=== PATIENT | female | born 1960 | race Caucasian/White ===

== ENCOUNTER 2020-09-14 19:00 | Inpatient (IN) | payer OTHER, SELFPAY ==
--- NOTE | 2020-09-14 19:08 | ED_ITS ---
HPI - Fall General Chief Complaint: Fall Stated Complaint: R LAT CHEST & HEAD PAIN S/P FALL THIS AM Time Seen by Provider: 09/14/20 19:08 Source: patient, EMS and old records reviewed Mode of arrival: EMS Limitations: no limitations History of Present Illness complaint: fall Onset (ago): day(s) (occured 1030 / 11 am today) Fall from: other (walker) Fall witnessed: no Loss of consciousness: none Prolonged down time: no Symptoms prior to fall: other (states she was going to the bathroom and felt a little bit wobbly) Context: history of frequent falls Location of injury: head, neck and chest (R ribs) Related Data Allergies Allergy/AdvReac Type Severity Reaction Status Date / Time tetracycline [Tetracycline] Allergy Mild HIVES, Verified 09/14/20 20:06 anaphylaxis, anaphylaxis Review of Systems Review of Systems: Constitutional : No Fever, No Chills ENT/Mouth : No Ear Pain, No Hoarseness, No sore throat Eyes: No Eye Pain, No Swelling, No Redness, No Foreign Body Cardiovascular : pos Chest Pain at her ribs where she fell, No SOB Respiratory : No Cough, No Dyspnea Gastrointestinal : pos Nausea, No Vomiting, No Diarrhea, No abdominal Pain Genitourinary : No Dysuria, No Hematuria Musculoskeletal : no joint pain, No Myalgias, No Joint Swelling Skin : No Skin lacerations, No rash Neuro : No Weakness, No Numbness, No Loss of Consciousness, No Dizziness, pos Headache Psych : No Anxiety/Panic, No Depression All other systems reviewed and are negative [facility] Past Medical History Medical History (Updated 09/14/20 @ 19:28 by Jade Gracia DO) Anemia Anxiety Arthritis Carpal tunnel syndrome Coronary artery disease CVA (cerebral vascular accident) Diabetes Gastritis Gastroparesis GERD (gastroesophageal reflux disease) Headache HTN (hypertension) IBS (irritable bowel syndrome) Myocardial infarct Pacemaker Renal failure UTI (urinary tract infection) Surgical History (Updated 09/14/20 @ 19:28 by Jade Gracia DO) H/O: hysterectomy History of appendectomy Hx of CABG Hx of cholecystectomy Social History Social History (Updated 09/14/20 @ 19:28 by Jade Gracia DO) Smoking Status: Never smoker Smoked in Last 30 Days: No Use of substances other than those prescribed or required for medical reasons: No Advance Directives: No Advance Directives Information Provided: Yes Physical Exam Vital Signs: Vital Signs: Vital Signs Temp Pulse Resp BP Pulse Ox 09/14/20 20:59 91 18 153/78 H 96 09/14/20 20:00 18 155/80 H 09/14/20 19:29 98 F 88 18 140/73 H 96 Body Mass Index 66.1 Appearance: Somnolent Oriented X3. No acute distress. Eyes: Pupils equal, round and reactive to light. ENT: Pharynx normal. Neck: Normal inspection. Neck supple. c/o pain C4-C6 no step offs, in c collar CVS: Normal heart rate and rhythm. Pulses normal. Respiratory: No respiratory distress. Breath sounds normal. Abdomen: Soft and nontender. Skin: Skin warm and dry. Normal skin color. Normal skin turgor. Extremities: No lower extremity edema. No calf ttp Neuro: Oriented X 3. No motor deficit. No sensory deficit. Course Course Course Narrative: trop and BNP at baseline, was hypoxic when she came in placed on O2 and she improved covered with zosyn given extensive infilrates and concern for aspiration MDM - Fall MDM Narrative Medical decision making narrative: 60 yo female with multiple medical problems presentes with R rib pain post fall when she felt wobbly today at 10am, at this time will need labs, CT scan of head/cspine/chest due to fall - she is sedated anticipate she took her night medications, GCS 15, labs, EKG, UA ordered, dispo per results and findings. Lab Data Result diagrams: 09/14/20 20:00 09/14/20 20:01 Labs: Lab Results 09/14/20 09/14/20 09/14/20 Range/Units 20:00 20:01 20:01 WBC 11.1 H (4.8-10.8) X10*3/uL RBC 4.36 (4.20-5.50) X10*6/uL Hgb 10.8 L (12.0-16.0) g/dl Hct 36.0 L (37-47) % MCV 82.6 (80-98) fL MCH 24.8 L (27.0-33.0) pg MCHC 30.0 L (31.0-35.0) g/dl RDW 16.8 H (11.0-16.0) % Plt Count 352 (160-400) X10*3/uL MPV 9.8 (9.4-12.3) fL Immature Gran % (Auto) 0.4 (0.0-0.4) % Neut % (Auto) 81.5 H (45-73) % Lymph % (Auto) 11.5 L (20-40) % [place] % (Auto) 4.9 (2-11) % Eos % (Auto) 1.4 (0-4) % Baso % (Auto) 0.3 (0-2) % Lymph # (Auto) 1.3 (1.2-4.9) X10*3/uL [place] # (Auto) 0.5 (0.1-1.2) X10*3/uL Eos # (Auto) 0.2 (0.0-0.4) X10*3/uL Baso # (Auto) 0.0 (0.0-0.2) X10*3/uL Abs Immat Gran (auto) 0.04 H (0.00-0.03) X10*3/uL Absolute Neuts (auto) 9.1 H (2.0-8.3) X10*3/uL Absolute Nucleated RBC 0.000 (0.0-0.012) X10*3/uL Nucleated RBC % (auto) 0.0 (0.0-0.2) /100WBC PT (10.8-13.0) SEC INR (0.9-1.1) APTT (24.1-38.0) SEC Sodium 133 L (135-145) mmol/L Potassium 4.1 (3.3-5.1) mmol/l Chloride 96 (96-108) mmol/L Carbon Dioxide 27 (22-29) mmol/L Anion Gap 14 (12-20) BUN 21 H (9-16) mg/dL Creatinine 1.69 H (0.5-1.4) mg/dL Estim Creat Clear Calc 52.1 Estimated GFR 31 Random Glucose 355 H* (60-115) mg/dL Lactic Acid (0.5-2.0) mmol/L Calcium 8.5 (8.4-10.2) mg/dL Magnesium (1.6-2.6) mg/dL Total Bilirubin (0.0-1.0) mg/dL Direct Bilirubin (0.0-0.5) mg/dL AST (5-31) U/L ALT (0-31) U/L Alkaline Phosphatase (39-117) U/L Total Creatine Kinase 85 (26-140) U/L Troponin I High Sens (<3.5-17.0) ng/L B-Natriuretic Peptide 268 H (<100) pg/mL Total Protein (6.5-8.0) g/dL Albumin (3.5-5.0) g/dL Lipase (8-78) U/L Stool Occult Blood (NEG) 09/14/20 09/14/20 09/14/20 Range/Units 20:01 20:01 20:01 WBC (4.8-10.8) X10*3/uL RBC (4.20-5.50) X10*6/uL Hgb (12.0-16.0) g/dl Hct (37-47) % MCV (80-98) fL MCH (27.0-33.0) pg MCHC (31.0-35.0) g/dl RDW (11.0-16.0) % Plt Count (160-400) X10*3/uL MPV (9.4-12.3) fL Immature Gran % (Auto) (0.0-0.4) % Neut % (Auto) (45-73) % Lymph % (Auto) (20-40) % Bradford % (Auto) (2-11) % Eos % (Auto) (0-4) % Baso % (Auto) (0-2) % Lymph # (Auto) (1.2-4.9) X10*3/uL [place] # (Auto) (0.1-1.2) X10*3/uL Eos # (Auto) (0.0-0.4) X10*3/uL Baso # (Auto) (0.0-0.2) X10*3/uL Abs Immat Gran (auto) (0.00-0.03) X10*3/uL Absolute Neuts (auto) (2.0-8.3) X10*3/uL Absolute Nucleated RBC (0.0-0.012) X10*3/uL Nucleated RBC % (auto) (0.0-0.2) /100WBC PT 11.0 (10.8-13.0) SEC INR 0.9 (0.9-1.1) APTT 28.4 (24.1-38.0) SEC Sodium (135-145) mmol/L Potassium (3.3-5.1) mmol/l Chloride (96-108) mmol/L Carbon Dioxide (22-29) mmol/L Anion Gap (12-20) BUN (9-16) mg/dL Creatinine (0.5-1.4) mg/dL Estim Creat Clear Calc Estimated GFR Random Glucose (60-115) mg/dL Lactic Acid 1.6 (0.5-2.0) mmol/L Calcium (8.4-10.2) mg/dL Magnesium 2.0 (1.6-2.6) mg/dL Total Bilirubin 0.2 (0.0-1.0) mg/dL Direct Bilirubin < 0.2 (0.0-0.5) mg/dL AST 19 (5-31) U/L ALT 17 (0-31) U/L Alkaline Phosphatase 187 H (39-117) U/L Total Creatine Kinase (26-140) U/L Troponin I High Sens (<3.5-17.0) ng/L B-Natriuretic Peptide (<100) pg/mL Total Protein 7.0 (6.5-8.0) g/dL Albumin 3.3 L (3.5-5.0) g/dL Lipase 23 (8-78) U/L Stool Occult Blood (NEG) 09/14/20 09/14/20 Range/Units 20:01 20:04 WBC (4.8-10.8) X10*3/uL RBC (4.20-5.50) X10*6/uL Hgb (12.0-16.0) g/dl Hct (37-47) % MCV (80-98) fL MCH (27.0-33.0) pg MCHC (31.0-35.0) g/dl RDW (11.0-16.0) % Plt Count (160-400) X10*3/uL MPV (9.4-12.3) fL Immature Gran % (Auto) (0.0-0.4) % Neut % (Auto) (45-73) % Lymph % (Auto) (20-40) % Bradford % (Auto) (2-11) % Eos % (Auto) (0-4) % Baso % (Auto) (0-2) % Lymph # (Auto) (1.2-4.9) X10*3/uL [place] # (Auto) (0.1-1.2) X10*3/uL Eos # (Auto) (0.0-0.4) X10*3/uL Baso # (Auto) (0.0-0.2) X10*3/uL Abs Immat Gran (auto) (0.00-0.03) X10*3/uL Absolute Neuts (auto) (2.0-8.3) X10*3/uL Absolute Nucleated RBC (0.0-0.012) X10*3/uL Nucleated RBC % (auto) (0.0-0.2) /100WBC PT (10.8-13.0) SEC INR (0.9-1.1) APTT (24.1-38.0) SEC Sodium (135-145) mmol/L Potassium (3.3-5.1) mmol/l Chloride (96-108) mmol/L Carbon Dioxide (22-29) mmol/L Anion Gap (12-20) BUN (9-16) mg/dL Creatinine (0.5-1.4) mg/dL Estim Creat Clear Calc Estimated GFR Random Glucose (60-115) mg/dL Lactic Acid (0.5-2.0) mmol/L Calcium (8.4-10.2) mg/dL Magnesium (1.6-2.6) mg/dL Total Bilirubin (0.0-1.0) mg/dL Direct Bilirubin (0.0-0.5) mg/dL AST (5-31) U/L ALT (0-31) U/L Alkaline Phosphatase (39-117) U/L Total Creatine Kinase (26-140) U/L Troponin I High Sens 22.8 H (<3.5-17.0) ng/L B-Natriuretic Peptide (<100) pg/mL Total Protein (6.5-8.0) g/dL Albumin (3.5-5.0) g/dL Lipase (8-78) U/L Stool Occult Blood NEG (NEG) ECG Data Attestation: I personally reviewed and interpreted this ECG as follows: ECG interpretation date: 09/14/20 ECG interpretation time: 19:28 Interpretation: Rate: 88 Rhythm: NSR with 1st degree AVB [place]: Normal P waves. 1st degree AVB incomplete RBBB, LVH ST T wave : inverted V5-V6 and 1 AvL, no DURAN qTC: prolonged prior studies: no acute ischemia The study has been interpreted contemporaneously by me. .
--- NOTE | 2020-09-14 19:09 | CT_ITS ---
EXAMINATION: CT HEAD WITHOUT CONTRAST, CT CERVICAL SPINE WITHOUT CONTRAST CLINICAL INFORMATION: Fall. Pain COMPARISON: The report of head CT 09/23/19 is no acute intracranial process TECHNIQUE: Multidetector CT examination of the head is performed without contrast. Multidetector CT of the cervical spine without contrast. Multiplanar postprocessing This CT examination was performed using dose optimization techniques as appropriate, variously including the following: *Automated exposure control *Adjustment of mA and/or kV according to patient size (this includes techniques or standardized protocols for targeted exams where dose is matched to indication/reason for exam; i.e. extremities or head) *Use of iterative reconstruction technique DLP: Cervical CT 422 mGy-cm DLP: Head CT 789 mGy-cm FINDINGS: Head CT: There is no evidence of a recent intracranial hemorrhage or extra-axial collection. The midline structures are nondisplaced. The ventricles, cisterns, and sulci are within normal limits. There is no evidence of an intra-axial mass. There are no suspicious focal areas of abnormal brain attenuation. The mckeon-white interface is within normal limits. There is no evidence of acute territorial infarct. The paranasal sinuses and mastoids are within normal limits. No fracture demonstrated Cervical CT: There is no cervical fracture or subluxation. No focal lesion or loss of volume. There is an opacity in the right upper lung. This could represent pneumonia. There is distention of the visualized upper esophagus with retained material. There is distention of the upper airway. CT/CT cervical spine wo con IMPRESSION: 1. There is no evidence of a recent intracranial hemorrhage. 2. No acute infarct. 3. No acute fracture or subluxation of the cervical spine Incompletely characterized opacity in the right lung partially included. Abnormal esophagus with dilation and retained material
--- NOTE | 2020-09-14 19:09 | CT_ITS ---
EXAMINATION: CT CHEST WITHOUT CONTRAST CLINICAL INFORMATION: Fall. Pain COMPARISON: The report of CT 02/06/18 indicates no aortic dissection TECHNIQUE: Multidetector volumetric CT imaging of the chest was done. Axial MIP volume rendering provided. Sagittal and coronal reformatted images were obtained. This CT examination was performed using dose optimization techniques as appropriate, variously including the following: *Automated exposure control *Adjustment of mA and/or kV according to patient size (this includes techniques or standardized protocols for targeted exams where dose is matched to indication/reason for exam; i.e. extremities or head) *Use of iterative reconstruction technique DLP: 282 mGy-cm FINDINGS: AIRPLANE CLEANER: Power source left chest wall. Cardiac leads. Sternal wires. Surgical clips right upper quadrant. LUNGS: There is no abnormality of the trachea or mainstem bronchi. There are extensive areas of pneumonia in the apical and posterior segment of the right upper lobe as well as the entire right lower lobe. There are scattered opacities in the left lower lobe. There is a groundglass component as well as some nodularity. There is no cavitation. I consider these findings nonspecific. These are not diagnostic or typical of viral pneumonia. MEDIASTINUM: Study performed without IV contrast. There is no definite mediastinal hematoma. No pericardial fluid. There are no measurably enlarged mediastinal or hilar lymph nodes. There are cardiac leads extending into the region of the right atrium and right ventricle. There may have been coronary artery bypass grafting. The esophagus is abnormal. The esophagus is dilated and contains retained material. PLEURA: There is no pleural fluid or pneumothorax AXILLA: No lymphadenopathy. UPPER ABDOMEN: No suspicious abnormality OSSEOUS STRUCTURES: No fracture demonstrated. Previous sternotomy CT/CT chest wo con IMPRESSION: Nonenhanced exam. No mediastinal hematoma or pneumothorax. Previous cardiac surgery. Extensive bilateral pulmonary infiltrates. These are nonspecific but could be related to pneumonia. In the setting of a dilated esophagus with retained material aspiration pneumonia should be considered. The pattern is not typical for traumatic lung injury
--- NOTE | 2020-09-14 19:09 | ECG_ITS ---
Test Reason : FALL Blood Pressure : / mmHG Vent. Rate : 088 BPM Atrial Rate : 088 BPM P-R Int : 234 ms QRS Dur : 116 ms QT Int : 412 ms P-R-T Axes : 000 099 -75 degrees QTc Int : 498 ms atrial-sensed vent-paced rhythm Incomplete right bundle branch block Possible Right ventricular hypertrophy ST & T wave abnormality, consider inferior ischemia Prolonged QT Abnormal ECG When compared with ECG of 16-AUG-2020 19:10, No significant changes seen Heart rate has decreased Referred By: Jade Gracia Electronically Signed By:HARITHA BRAVO MD
[2020-09-14 19:29] VITALS: BP 140/73; PULSE 88; RESP 18; TEMP 36.6; O2SAT 96; BMI 66.1
--- NOTE | 2020-09-14 19:38 | PC.NURSE ---
Pt to room in c-collar in place. Pt fell this morning around 1030am Pt c/o pain to right shoulder area and right side of chest area. Pt awake, +sob, pt PO 88% on RA, Pt placed on 2L NC with PO 96%. EKG obtained. in room for eval.
[2020-09-14 20:00] VITALS: BP 155/80; RESP 18
[2020-09-14 20:11] LABS: MANUAL DIFF FLAG NO
[2020-09-14 20:13] LABS: Basophils Percent Auto 0.3 % (0-2); Eosinophils Absolute Auto 0.2 X10*3/uL (0.0-0.4); Eosinophils Percent Auto 1.4 % (0-4); Hemoglobin 10.8 g/dl (12.0-16.0); Imm Gran Abs Auto 0.04 X10*3/uL (0.00-0.03); Imm Gran Pct Auto 0.4 % (0.0-0.4); Lymphocytes Absolute Auto 1.3 X10*3/uL (1.2-4.9); Lymphocytes Percent Auto 11.5 % (20-40); Mean Corpuscular Hemoglobin 24.8 pg (27.0-33.0); Mean Corpuscular Volume 82.6 fL (80-98); Mean Platelet Volume 9.8 fL (9.4-12.3); Monocytes Absolute Auto 0.5 X10*3/uL (0.1-1.2); Monocytes Percent Auto 4.9 % (2-11); Neutrophils Absolute Auto 9.1 X10*3/uL (2.0-8.3); Neutrophils Percent Auto 81.5 % (45-73); Platelet Count 352 X10*3/uL (160-400); Red Blood Count 4.36 X10*6/uL (4.20-5.50); Red Cell Distribution Width 16.8 % (11.0-16.0); White Blood Count 11.1 X10*3/uL (4.8-10.8)
--- NOTE | 2020-09-14 20:13 | PC.NURSE ---
HL placed to left AC, labs drawn to lab. BC x [address] in stretcher.
[2020-09-14 20:22] LABS: INTERNATIONAL NORM RATIO 0.9 (0.9-1.1)
[2020-09-14 20:24] LABS: Partial Thromboplastin Time 28.4 SEC (24.1-38.0)
[2020-09-14] MEDS: Morphine Sulfate 4 MG/ML CARTRIDGE IVPUSH (20:28)
[2020-09-14 20:30] LABS: OBS Int Ctl Valid YES; OBS1 NEG (NEG)
[2020-09-14 20:32] LABS: Lactic Acid 1.6 mmol/L (0.5-2.0)
[2020-09-14 20:36] LABS: Alanine Aminotransferase 17 U/L (0-31); Albumin Level 3.3 g/dL (3.5-5.0); Alkaline Phosphatase 187 U/L (39-117); Aspartate Amino Transferase 19 U/L (5-31); Bilirubin Direct < 0.2 mg/dL (0.0-0.5); Bilirubin Total 0.2 mg/dL (0.0-1.0); Lipase 23 U/L (8-78)
[2020-09-14 20:39] LABS: B Type Natriuretic Peptide 268 pg/mL (<100)
[2020-09-14 20:47] LABS: Anion Gap 14 (12-20); Blood Urea Nitrogen 21 mg/dL (9-16); Calcium 8.5 mg/dL (8.4-10.2); Carbon Dioxide 27 mmol/L (22-29); Chloride 96 mmol/L (96-108); Creatinine Clr Calc Pharmacy 52.1; Estimated Glomerular Filt Rate 31; Glucose Random 355 mg/dL (60-115); Potassium 4.1 mmol/l (3.3-5.1); Sodium 133 mmol/L (135-145)
[2020-09-14 20:48] LABS: Troponin-I High Sensitivity 22.8 ng/L (<3.5-17.0)
[2020-09-14 20:59] VITALS: BP 153/78; PULSE 91; RESP 18; O2SAT 96
[2020-09-14] MEDS: Piperacillin Sodium/Tazobactam 3.375 GM in 0.9 % Sodium Chloride 50 ML IV (21:45)
--- NOTE | 2020-09-14 21:54 | PC.NURSE ---
c spine cleared by rose marie brown md. hospitalist at bedside
[2020-09-14 22:00] VITALS: BP 151/72; PULSE 91; RESP 18
--- NOTE | 2020-09-14 22:00 | PC.NURSE ---
pt unable to void at this time.
--- NOTE | 2020-09-14 22:35 | PM.IMHP ---
History of Present Illness Date of Service: 09/14/20 Chief Complaint: Fall, weakness this is a 60-year-old female with an extensive past medical history as below who presents to the hospital with complaint of feeling weak and having a fall while walking with her walker. She reports that her legs felt weak and wobbly and she could not stand and therefore she fell. She denies having any dizziness, vertigo, loss of conscious, no pre-syncope. She also had nausea and vomiting in the afternoon multiple times. She reports urinary frequency with no dysuria or urgency. She has no fever or chills, no abdominal pain. She reports diarrhea for past 2 days. about 2- episodes non-bloody daily. No increased lower extremity edema. Pt usually uses PRN O2 at home due to hx of emphysema, but reports that today she feels more sob than usual. She has no headache, change in vision. She just otherwise feels generally weak. she has no upper respiratory symptoms, no cough, no chest pain. On arrival to the ED pt HDS but found to be satting in the high 80s. Placed on NC 2 L now satting 96%-98%. Labs are significant for WBC count of 11.1, Hgb of 10.8 (baseline), BUN 21, cr of 1.69 (around baseline) Chest CT showed extensive bilateral pulmonary infiltrates with dilated esophagus with retained material. PMHX: Anxiety, arthritis, asthma, CAD, Carpal tunnel syndrome, CVA, Depression, Diabetic gastroparesis, Fibromyalgia, Gastritis, GERD, Headaches, HTN, IBS, DM, Kidney disease, Left foot amputation part, [place] 2011, Neuropathy, Urinary bladder stimulate, Vertigo PSX: Hysterectomy, appendectomy, gallbladder, knee sx, left foot sx, left toes amputated, Bypass, CABG 2019, Pacemaker Family hx: Dm Social Hx: Lives with [facility], has a MARKETING COMMUNICATIONS COORDINATOR that comes to her daily, denies tobacco, alcohol or illicit drugs Review of Systems Review of Systems: Yes all other systems are reviewed and are negative [facility] Medical History Anemia Anxiety Arthritis Carpal tunnel syndrome Coronary artery disease CVA (cerebral vascular accident) Diabetes Gastritis Gastroparesis GERD (gastroesophageal reflux disease) Headache HTN (hypertension) IBS (irritable bowel syndrome) Myocardial infarct Pacemaker Renal failure UTI (urinary tract infection) Surgical History H/O: hysterectomy History of appendectomy Hx of CABG Hx of cholecystectomy Social History Household Members: Family Housing: Apartment Do you presently have visiting nurse or other home services: Yes (MARKETING COMMUNICATIONS COORDINATOR x 7days/week) Smoking Status: Former smoker Smoked in Last 30 Days: No Use of substances other than those prescribed or required for medical reasons: No Have you been hit, kicked, punched, or otherwise hurt by someone within the past year? If so, by whom?: No Do you feel safe in your current relationship?: Yes Is there a partner from a previous relationship who is making you feel unsafe now?: No Are you made to feel afraid or neglected: No [facility] Practices: [facility] Advance Directives: No Advance Directives Information Provided: Yes Do you have thoughts of harming others: None Do you have a plan to hurt others: No Plan Recently lost weight without trying: No Meds Allergies Allergy/AdvReac Type Severity Reaction Status Date / Time tetracycline [Tetracycline] Allergy Mild HIVES, Verified 09/14/20 20:06 anaphylaxis, anaphylaxis Home Medications Medication Instructions Recorded Confirmed Type ASA,buffd(mag,aluminum hydrox) 81 tab PO DAILY 09/14/20 09/14/20 History gabapentin 300 mg PO QID 09/14/20 09/14/20 History lorazepam 0.5 mg PO DAILY PRN 09/14/20 09/14/20 History metoprolol succinate 09/14/20 History venlafaxine [Effexor] mg 09/14/20 History Physical Exam Vital Signs and Narrative: Vital Signs: Last Vital Signs Temp 98 F 09/14/20 19:29 Pulse 91 09/14/20 22:00 Resp 18 09/14/20 22:00 BP 151/72 H 09/14/20 22:00 Pulse Ox 96 09/14/20 20:59 Body Mass Index 66.1 Const: Other: aapears tired General: cooperative and no acute distress Orientation/consciousness: patient oriented x3 Eyes: General: appearance normal, both eyes and all related structures Pupils: Equal, round and reactive pupils present Resp: Effort & Inspection: normal respiratory effort and able to speak in complete sentences Cardio: Rate: regular rate Rhythm: regular rhythm GI: Palpation (GI): Soft to palpation Auscultation: normal bowel sounds Skin: General skin exam: no rashes or lesions noted Neuro: General: patient oriented x3 Cranial nerves: Yes Equal, round and reactive pupils present Cognition (Neuro): normal cognition Extrem: General: Yes normal to inspection and Yes no pedal edema Results Labs Labs: Laboratory Tests 09/14/20 09/14/20 09/14/20 20:00 20:01 20:01 WBC 11.1 H RBC 4.36 Hgb 10.8 L Hct 36.0 L MCV 82.6 MCH 24.8 L MCHC 30.0 L RDW 16.8 H Plt Count 352 MPV 9.8 Immature Gran % (Auto) 0.4 Neut % (Auto) 81.5 H Lymph % (Auto) 11.5 L [place] % (Auto) 4.9 Eos % (Auto) 1.4 Baso % (Auto) 0.3 Lymph # (Auto) 1.3 [place] # (Auto) 0.5 Eos # (Auto) 0.2 Baso # (Auto) 0.0 Abs Immat Gran (auto) 0.04 H Absolute Neuts (auto) 9.1 H Absolute Nucleated RBC 0.000 Nucleated RBC % (auto) 0.0 PT INR APTT Sodium 133 L Potassium 4.1 Chloride 96 Carbon Dioxide 27 Anion Gap 14 BUN 21 H Creatinine 1.69 H Estim Creat Clear Calc 52.1 Estimated GFR 31 Random Glucose 355 H* Lactic Acid Calcium 8.5 Magnesium Total Bilirubin Direct Bilirubin AST ALT Alkaline Phosphatase Total Creatine Kinase 85 Troponin I High Sens B-Natriuretic Peptide 268 H Total Protein Albumin Lipase Stool Occult Blood 09/14/20 09/14/20 09/14/20 20:01 20:01 20:01 WBC RBC Hgb Hct MCV MCH MCHC RDW Plt Count MPV Immature Gran % (Auto) Neut % (Auto) Lymph % (Auto) [place] % (Auto) Eos % (Auto) Baso % (Auto) Lymph # (Auto) [place] # (Auto) Eos # (Auto) Baso # (Auto) Abs Immat Gran (auto) Absolute Neuts (auto) Absolute Nucleated RBC Nucleated RBC % (auto) PT 11.0 INR 0.9 APTT 28.4 Sodium Potassium Chloride Carbon Dioxide Anion Gap BUN Creatinine Estim Creat Clear Calc Estimated GFR Random Glucose Lactic Acid 1.6 Calcium Magnesium 2.0 Total Bilirubin 0.2 Direct Bilirubin < 0.2 AST 19 ALT 17 Alkaline Phosphatase 187 H Total Creatine Kinase Troponin I High Sens B-Natriuretic Peptide Total Protein 7.0 Albumin 3.3 L Lipase 23 Stool Occult Blood 09/14/20 09/14/20 20:01 20:04 WBC RBC Hgb Hct MCV MCH MCHC RDW Plt Count MPV Immature Gran % (Auto) Neut % (Auto) Lymph % (Auto) [place] % (Auto) Eos % (Auto) Baso % (Auto) Lymph # (Auto) [place] # (Auto) Eos # (Auto) Baso # (Auto) Abs Immat Gran (auto) Absolute Neuts (auto) Absolute Nucleated RBC Nucleated RBC % (auto) PT INR APTT Sodium Potassium Chloride Carbon Dioxide Anion Gap BUN Creatinine Estim Creat Clear Calc Estimated GFR Random Glucose Lactic Acid Calcium Magnesium Total Bilirubin Direct Bilirubin AST ALT Alkaline Phosphatase Total Creatine Kinase Troponin I High Sens 22.8 H B-Natriuretic Peptide Total Protein Albumin Lipase Stool Occult Blood NEG Imaging CT scan - chest: Radiologist's impression: IMPRESSION: Nonenhanced exam. No mediastinal hematoma or pneumothorax. Previous cardiac surgery. Extensive bilateral pulmonary infiltrates. These are nonspecific but could be related to pneumonia. In the setting of a dilated esophagus with retained material aspiration pneumonia should be considered. The pattern is not typical for traumatic lung injury CT scan - head: Radiologist's impression: IMPRESSION: 1. There is no evidence of a recent intracranial hemorrhage. 2. No acute infarct. 3. No acute fracture or subluxation of the cervical spine Assessment and Plan (1) Pneumonia: Qualifiers: Aspiration pneumonia type: unspecified Laterality: bilateral Lung location: unspecified part of lung Pneumonia type: aspiration pneumonia Qualified Code(s): J69.0 - Pneumonitis due to inhalation of food and vomit Status: Acute (2) Fall: Qualifiers: Encounter type: initial encounter Qualified Code(s): W19.XXXA - Unspecified fall, initial encounter Status: Acute (3) Coronary artery disease: Status: Inactive (4) CVA (cerebral vascular accident): Status: Inactive (5) Diabetes: Status: Inactive (6) HTN (hypertension): Status: Inactive (7) Nausea and vomiting: Status: Acute (8) Hypoxia: Status: Acute this is a 60-year-old female with a past medical history as above who presents to the hospital with complaints of a fall found to have bilateral infiltrate concerning for aspiration pneumonia # aspiration pneumonia - chest CT demonstrates bilateral infiltrates with dilation of the esophagus with food material in the esophagus - patient reported episodes of vomiting prior to presenting to hospital - has leukocytosis, afebrile, no tachypnea or tachycardia - Usually uses about 1-2 l of baseline O2 but currently on 2L of o2 sating 96% Plan: - Will start pt on Unasyn - Blood cultures collected in ED, will follow - Monitor respiratory function # Acute hypoxic resp failure - Most likely 2/2 aspiration - on baseline O2 PRN but presented with O2 in the 80s. Now on 2 L satting 96% Plan: - Tx underlying PNA - O2 as required # Nausea and vomiting - Possibly 2/2 viral gastritis Plan: - Stool cultures - antiemetic - supportive measures # Fall - Most likely 2/2 weakness from dehydration? - No loss of consciousness, dizziness, vertigo - No pre-syncopal symptoms Plan: - PT/OT # DM - LDSSI - Diabetic diet # hx of CAD - continue ASA # Hx of CVA - Continue ASA # HTN - Stable DVT ppx: :Lovenox DOS: 09/14/2020
[2020-09-14 23:18] LABS: SARS COV2 PCR INHOUSE NEGATIVE (Negative)
[2020-09-15] VITALS (7 sets, daily range): BP systolic 117–189; BP diastolic 55–90; PULSE 84–94; RESP 16–20; TEMP 36.2–37.1; O2SAT 97–100
--- NOTE | 2020-09-15 00:14 | PC.NURSE ---
Report to micheal Merritt. Pt to room 446-2 in [facility] at this time. Pt left ED in NAD.
[2020-09-15] MEDS: Enoxaparin Sodium 40 MG/0.4 ML SYRINGE SUBCUT (01:54)
[2020-09-15] MEDS: Ampicillin Sodium/Sulbactam Na 1.5 GM in 0.9 % Sodium Chloride 100 ML IV ×3 (03:12→16:49)
[2020-09-15] MEDS: 0.9 % Sodium Chloride Flush 3 ML SYRINGE IVFLUSH ×3 (03:12→15:31)
[2020-09-15 06:50] LABS: MANUAL DIFF FLAG NO
[2020-09-15 07:23] LABS: Basophils Percent Auto 0.2 % (0-2); Hematocrit 33.4 % (37-47); Imm Gran Abs Auto 0.11 X10*3/uL (0.00-0.03); Imm Gran Pct Auto 0.6 % (0.0-0.4); Lymphocytes Absolute Auto 0.9 X10*3/uL (1.2-4.9); Lymphocytes Percent Auto 4.8 % (20-40); Mean Corpuscular HGB Conc 29.9 g/dl (31.0-35.0); Mean Corpuscular Hemoglobin 25.4 pg (27.0-33.0); Mean Corpuscular Volume 84.8 fL (80-98); Mean Platelet Volume 10.2 fL (9.4-12.3); Monocytes Absolute Auto 0.8 X10*3/uL (0.1-1.2); Monocytes Percent Auto 4.4 % (2-11); Platelet Count 278 X10*3/uL (160-400); Red Blood Count 3.94 X10*6/uL (4.20-5.50); Red Cell Distribution Width 16.7 % (11.0-16.0); White Blood Count 17.8 X10*3/uL (4.8-10.8)
[2020-09-15 07:47] LABS: Glucose, Whole Blood 509 mg/dL (60-115)
[2020-09-15 07:49] LABS: Glucose, Whole Blood 517 mg/dL (60-115)
[2020-09-15] MEDS: Insulin Lispro 100 UNIT/ML 3 ML VIAL 6 UNIT SUBCUT (08:00)
[2020-09-15] MEDS: Insulin Lispro 100 UNIT/ML 3 ML VIAL SUBCUT ×5 (08:02→21:26)
[2020-09-15] MEDS: Gabapentin 300 MG CAPSULE PO ×4 (08:03→21:27)
[2020-09-15] MEDS: Aspirin 81 MG TAB.CHEW PO (08:03)
[2020-09-15 08:50] LABS: Anion Gap 17 (12-20); Blood Urea Nitrogen 24 mg/dL (9-16); Calcium 8.1 mg/dL (8.4-10.2); Carbon Dioxide 26 mmol/L (22-29); Chloride 97 mmol/L (96-108); Creatinine Clr Calc Pharmacy 52.4; Estimated Glomerular Filt Rate 31; Glucose Random 641 mg/dL (60-115); Potassium 5.6 mmol/l (3.3-5.1); Sodium 134 mmol/L (135-145)
[2020-09-15 11:27] LABS: Glucose, Whole Blood 318 mg/dL (60-115)
[2020-09-15 12:01] LABS: Glucose, Whole Blood 375 mg/dL (60-115)
[2020-09-15] MEDS: Morphine Sulfate 2 MG/ML CARTRIDGE IVPUSH ×2 (15:29→21:22)
[2020-09-15] MEDS: Insulin Glargine,Hum.rec.anlog 100 UNIT/ML 10 ML VIAL 10 UNIT SUBCUT ×2 (15:30→21:24)
--- NOTE | 2020-09-15 15:57 | HO.PM.IMPN ---
Subjective Subjective Date of Service: 09/15/20 Interval History: seen and examined this AM complaining of burning epigastric / chest pain earlier which improved denies any anginal symptoms denies any fevers or chills Review of Systems General - no fevers or chills Cardiovascular - no chest pain Respiratory - +SOB, Cough Abdominal- +gerd symptoms Physical Exam Vital Signs: Vital Signs: Vital Signs Temp Pulse Resp BP Pulse Ox 09/15/20 15:32 98.4 F 91 16 117/55 L 99 09/15/20 11:45 84 20 147/68 H 100 09/15/20 07:56 98.8 F 84 20 185/90 H 98 09/15/20 03:46 97.6 F 88 16 173/68 H 99 09/15/20 01:28 97.4 F 91 16 189/90 H 97 09/14/20 22:00 91 18 151/72 H 09/14/20 20:59 91 18 153/78 H 96 09/14/20 20:00 18 155/80 H 09/14/20 19:29 98 F 88 18 140/73 H 96 Body Mass Index 66.1 General - no acute distress, appears comfortable Cardiovascular - regular rate and rhythm, S1-S2 Lungs - rhonchi, no tachypnea Abdomen - soft, nontender, no rebound regarding Extremities - R BKA Neuro - awake and alert, no focal deficits Objective Data Current Medications Generic Name Dose Route Start Last Admin Trade Name Freq PRN Reason Stop Dose Admin Acetaminophen 650 mg 09/15/20 01:19 Acetaminophen 325 Mg Tablet PO Q6H PRN Pain, Mild (Pain Scale 1-3) Aspirin 81 mg 09/15/20 09:00 09/15/20 08:03 Aspirin 81 Mg Tab.Chew PO 81 mg DAILY LAW Administration Docusate Sodium 100 mg 09/15/20 01:19 Docusate Sodium 100 Mg Capsule PO DAILY PRN Constipation Enoxaparin Sodium 40 mg 09/15/20 01:19 09/15/20 01:54 Enoxaparin Sodium 40 Mg/0.4 Ml Syringe SUBCUT 40 mg Q24H LAW Administration Gabapentin 300 mg 09/15/20 09:00 09/15/20 12:03 Gabapentin 300 Mg Capsule PO 300 mg QID LAW Administration Ampicillin Sodium/Sulbactam 100 mls @ 200 mls/hr 09/15/20 02:00 09/15/20 11:31 Sodium 1.5 gm/ Sodium Chloride IV Infused Q8H [facility] Infusion Insulin Human Lispro 0 unit 09/15/20 07:30 09/15/20 12:03 Insulin Lispro 100 Unit/Ml 3 Ml Vial SUBCUT 10 unit QIDACHS [facility] Administration Protocol Lorazepam 0.5 mg 09/15/20 01:19 Lorazepam 0.5 Mg Tablet PO DAILY PRN Anxiety Morphine Sulfate 2 mg 09/15/20 14:14 09/15/20 15:29 Morphine Sulfate 2 Mg/Ml Cartridge IVPUSH 2 mg Q4H PRN Administration Pain, Severe (Pain Scale 7-10) Ondansetron HCl 4 mg 09/15/20 01:19 Ondansetron Hcl 4 Mg/2 Ml Vial IVPUSH Q8H PRN Nausea and Vomiting Pharmacy Consult 1 each 09/14/20 21:21 Consult Rx Perform Med Rec MISCELLANE ONCE PRN Consult order Sodium Chloride 3 ml 09/15/20 01:19 09/15/20 15:31 0.9 % Sodium Chloride Flush 3 Ml Syringe IVFLUSH 3 ml QSHIFT [facility] Administration Labs CBC & Chem 7: 09/15/20 06:06 09/15/20 06:06 Assessment and Plan (1) Pneumonia: Status: Acute Assessment and Plan: This is a 60-year-old female with a past medical history of diabetes, diabetic gastroparesis who is admitted to the hospital for respiratory failure secondary to pneumonia likely aspirational 1. acute hypoxic respiratory failure Due to pneumonia suspect aspiration given CT findings of food in the esophagus 2. Aspiration pneumonia Unasyn Follow cultures 3. diabetes mellitus, diabetic gastroparesis uncontrolled Med rec not done unsure what her home meds are Continue insulin sliding scale and lantus 10 units now and then 10 units starting bedtime 4. Joaquín/mild hyperkalemia IV fluids, recheck chemistry now 5.Epigastric pain / GERD Suspect due to her gastroparesis / GERD Initial high sensitivity troponin 22, repeat flat -- doubt cadiac related prilosec 20mg bid Full Code DVT pptx, lovenox
[2020-09-15 16:01] LABS: Troponin-I High Sensitivity 22.6 ng/L (<3.5-17.0)
--- NOTE | 2020-09-15 16:01 | MHC.CM.PN ---
CM met with pt who was very sleepy but able to answer questions appropriately. Pt reports she lives with her son and grand daughter and has [employer]ION[employer] services daily. Pt reports being active with [facility] as well. Pt uses a wheel chair and oxygen at baseline and requires assistance with all care. Pts oxygen is provided by [facility]. Pt reports [email or web address] provides transportation for her to get to appointments. Pts PCP is Amy Martinez and she has a HCP on file Current DC plan is home with resumption of services pt will need a chair van
--- NOTE | 2020-09-15 16:13 | MHC.CM.PN ---
Addendum entered by Estela Gutierrez 09/16/20 09:29: CLARIFICATION: PT HAS A WHEELCHAIR BUT IS NOT WHEELCHAIR BOUND AND RETAIL STOCKER HAD NOT BEEN USING IT. Original Note: CM MET WITH PT WHO IS VERY SLEEPY BUT ABLE TO ANSWER QUESTIONS APPROPRIATELY. 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 PT REPORTS BEING ACTIVE WITH [facility] [employer] [facility]. PT USES A WHEEL CHAIR AT BASELINE. PT CONFIRMS HER PCP IS CATHLEEN MCMILLAN AND SHE HAS A HCP ON FILE CURRENT DC PLAN IS HOME WITH RESUMPTION OF SERVICES FAMILY TO TRANSPORT
[2020-09-15 16:42] LABS: Glucose, Whole Blood 380 mg/dL (60-115)
[2020-09-15] MEDS: 0.9 % Sodium Chloride 1,000 ML 100 ML IVCONT (16:49)
[2020-09-15] MEDS: Omeprazole 20 MG CAPSULE.DR PO (16:55)
[2020-09-15 17:33] LABS: Anion Gap 12 (12-20); Blood Urea Nitrogen 24 mg/dL (9-16); Calcium 8.1 mg/dL (8.4-10.2); Carbon Dioxide 30 mmol/L (22-29); Chloride 96 mmol/L (96-108); Creatinine Clr Calc Pharmacy 60.7; Estimated Glomerular Filt Rate 37; Glucose Random 403 mg/dL (60-115); Potassium 5.2 mmol/l (3.3-5.1); Sodium 133 mmol/L (135-145)
[2020-09-15 21:14] LABS: Glucose, Whole Blood 341 mg/dL (60-115)
[2020-09-16] VITALS (8 sets, daily range): BP systolic 122–179; BP diastolic 66–82; PULSE 84–97; RESP 18–20; TEMP 36–37.2; O2SAT 90–100; BMI 31.0
[2020-09-16] MEDS: 0.9 % Sodium Chloride 1,000 ML 100 ML IVCONT ×2 (00:27→10:40)
[2020-09-16] MEDS: Ampicillin Sodium/Sulbactam Na 1.5 GM in 0.9 % Sodium Chloride 100 ML IV ×3 (00:55→16:38)
[2020-09-16] MEDS: Enoxaparin Sodium 40 MG/0.4 ML SYRINGE SUBCUT (00:57)
[2020-09-16] MEDS: Morphine Sulfate 2 MG/ML CARTRIDGE IVPUSH ×2 (02:22→13:42)
[2020-09-16] MEDS: Omeprazole 20 MG CAPSULE.DR PO ×2 (06:04→17:18)
[2020-09-16 06:09] LABS: MANUAL DIFF FLAG NO
[2020-09-16 06:14] LABS: Basophils Percent Auto 0.2 % (0-2); Eosinophils Absolute Auto 0.2 X10*3/uL (0.0-0.4); Hemoglobin 9.7 g/dl (12.0-16.0); Imm Gran Abs Auto 0.04 X10*3/uL (0.00-0.03); Imm Gran Pct Auto 0.4 % (0.0-0.4); Lymphocytes Absolute Auto 1.5 X10*3/uL (1.2-4.9); Lymphocytes Percent Auto 14.5 % (20-40); Mean Corpuscular HGB Conc 29.4 g/dl (31.0-35.0); Mean Corpuscular Hemoglobin 24.9 pg (27.0-33.0); Mean Corpuscular Volume 84.6 fL (80-98); Monocytes Absolute Auto 0.7 X10*3/uL (0.1-1.2); Monocytes Percent Auto 6.8 % (2-11); Neutrophils Absolute Auto 7.8 X10*3/uL (2.0-8.3); Neutrophils Percent Auto 76.1 % (45-73); Platelet Count 263 X10*3/uL (160-400); Red Cell Distribution Width 16.8 % (11.0-16.0); White Blood Count 10.2 X10*3/uL (4.8-10.8)
[2020-09-16 06:38] LABS: Anion Gap 13 (12-20); Blood Urea Nitrogen 21 mg/dL (9-16); Calcium 7.8 mg/dL (8.4-10.2); Carbon Dioxide 25 mmol/L (22-29); Chloride 101 mmol/L (96-108); Creatinine Clr Calc Pharmacy 51.9; Estimated Glomerular Filt Rate 51; Glucose Random 283 mg/dL (60-115); Potassium 4.8 mmol/l (3.3-5.1); Sodium 134 mmol/L (135-145)
[2020-09-16 07:36] LABS: Glucose, Whole Blood 283 mg/dL (60-115)
--- NOTE | 2020-09-16 08:21 | MHC.CM.PN ---
CM RECEIVED MESSAGE FROM [employer] INDICATING THEY ARE NOT ACTIVE WITH THIS PT. PT IS ACTIVE WT [facility]
[2020-09-16] MEDS: Insulin Lispro 100 UNIT/ML 3 ML VIAL SUBCUT ×8 (08:43→21:14)
[2020-09-16] MEDS: Aspirin 81 MG TAB.CHEW PO (08:44)
[2020-09-16] MEDS: Gabapentin 300 MG CAPSULE PO ×2 (08:44→12:05)
[2020-09-16] MEDS: 0.9 % Sodium Chloride Flush 3 ML SYRINGE IVFLUSH ×2 (08:45→16:40)
[2020-09-16 11:45] LABS: Glucose, Whole Blood 280 mg/dL (60-115)
--- NOTE | 2020-09-16 16:14 | P.PNIM_ITS ---
Subjective Subjective Date of Service: 09/16/20 Interval History: seen and examined this AM sats around 90 on RA. she tells me she is on o2 at home at night rpeorts cough and abd pain better hopefuly to go home tomorrow if she can Review of Systems General - no fevers or chills Cardiovascular - no chest pain Respiratory - shortness of breath or cough improving Abdominal- no abdominal pain, nausea, vomiting, diarrhea; tolerating diet Physical Exam Vital Signs: Vital Signs: Vital Signs Temp Pulse Resp BP Pulse Ox 09/16/20 15:37 97.1 F 96 18 122/66 90 L 09/16/20 11:37 98.7 F 97 18 133/70 95 09/16/20 10:00 96 09/16/20 09:18 96 09/16/20 07:39 98.2 F 89 20 167/76 H 100 09/16/20 03:12 98.9 F 84 19 161/82 H 97 09/15/20 23:12 98.2 F 90 19 136/69 99 09/15/20 19:05 97.2 F 94 16 173/79 H 100 Body Mass Index 31.0 General - no acute distress, appears comfortable Cardiovascular - regular rate and rhythm, S1-S2 Lungs - scattered rales / ronchi Abdomen - soft, nontender, no rebound regarding Extremities - R BKA Neuro - awake and alert, no focal deficits Objective Data Current Medications Generic Name Dose Route Start Last Admin Trade Name Freq PRN Reason Stop Dose Admin Acetaminophen 650 mg 09/15/20 01:19 Acetaminophen 325 Mg Tablet PO Q6H PRN Pain, Mild (Pain Scale 1-3) Aspirin 81 mg 09/15/20 09:00 09/16/20 08:44 Aspirin 81 Mg Tab.Chew PO 81 mg DAILY LAW Administration Docusate Sodium 100 mg 09/15/20 01:19 Docusate Sodium 100 Mg Capsule PO DAILY PRN Constipation Enoxaparin Sodium 40 mg 09/15/20 01:19 09/16/20 00:57 Enoxaparin Sodium 40 Mg/0.4 Ml Syringe SUBCUT 40 mg Q24H [facility] Administration Gabapentin 300 mg 09/15/20 09:00 09/16/20 12:05 Gabapentin 300 Mg Capsule PO 300 mg QID LAW Administration Ampicillin Sodium/Sulbactam 100 mls @ 200 mls/hr 09/15/20 02:00 09/16/20 10:37 Sodium 1.5 gm/ Sodium Chloride IV Infused Q8H [facility] Infusion Sodium Chloride 1,000 mls @ 100 mls/hr 09/15/20 16:00 09/16/20 10:40 Ns IVCONT 100 mls/hr .Q10H [facility] Administration Insulin Glargine 10 unit 09/15/20 21:00 09/15/20 21:24 Insulin Glargine,Hum.Rec.Anlog 100 Unit/Ml 10 Ml Vial SUBCUT 10 unit BEDTIME [facility] Administration Insulin Human Lispro 0 unit 09/15/20 07:30 09/16/20 12:06 Insulin Lispro 100 Unit/Ml 3 Ml Vial SUBCUT 6 unit QIDACHS [facility] Administration Protocol Insulin Human Lispro 4 unit 09/15/20 21:00 09/16/20 12:05 Insulin Lispro 100 Unit/Ml 3 Ml Vial SUBCUT 4 unit QIDACHS [facility] Administration Lorazepam 0.5 mg 09/15/20 01:19 Lorazepam 0.5 Mg Tablet PO DAILY PRN Anxiety Morphine Sulfate 2 mg 09/15/20 14:14 09/16/20 13:42 Morphine Sulfate 2 Mg/Ml Cartridge IVPUSH 2 mg Q4H PRN Administration Pain, Severe (Pain Scale 7-10) Omeprazole 20 mg 09/15/20 16:30 09/16/20 06:04 Omeprazole 20 Mg Capsule.Dr PO 20 mg BID@0630,1630 [facility] Administration Ondansetron HCl 4 mg 09/15/20 01:19 Ondansetron Hcl 4 Mg/2 Ml Vial IVPUSH Q8H PRN Nausea and Vomiting Pharmacy Consult 1 each 09/14/20 21:21 Consult Rx Perform Med Rec MISCELLANE ONCE PRN Consult order Sodium Chloride 3 ml 09/15/20 01:19 09/16/20 08:45 0.9 % Sodium Chloride Flush 3 Ml Syringe IVFLUSH 3 ml QSHIFT [facility] Administration Labs CBC & Chem 7: 09/16/20 05:52 09/16/20 05:52 Microbiology Microbiology Results: Microbiology 09/14/20 20:01 Blood - Venous Blood Culture - Preliminary No growth after 24 hours. 09/14/20 20:01 Blood - Venous Blood Culture - Preliminary No growth after 24 hours. Assessment and Plan (1) Pneumonia: Status: Acute Assessment and Plan: This is a 60-year-old female with a past medical history of diabetes, diabetic gastroparesis who is admitted to the hospital for respiratory failure secondary to pneumonia likely aspirational 1. acute hypoxic respiratory failure Due to pneumonia suspect aspiration given CT findings of food in the esophagus tolearting RA this AM -- uses at night at home 2. Aspiration pneumonia Unasyn - day #2 Follow cultures - negative to duate 3. diabetes mellitus, diabetic gastroparesis improving control lantus + sliding scale diabetic diet 4. Joaquín/mild hyperkalemia resolved with ivf 5.Epigastric pain / GERD Suspect due to her gastroparesis / GERD Initial high sensitivity troponin 22, repeat flat -- doubt cadiac related prilosec 20mg daily Full Code DVT pptx, lovenox
[2020-09-16] MEDS: Acetaminophen 325 MG TABLET 650 MG PO (17:18)
[2020-09-16] MEDS: Insulin Glargine,Hum.rec.anlog 100 UNIT/ML 10 ML VIAL 10 UNIT SUBCUT (17:18)
[2020-09-16 17:20] LABS: Glucose, Whole Blood 200 mg/dL (60-115)
[2020-09-16 21:07] LABS: Glucose, Whole Blood 196 mg/dL (60-115)
[2020-09-16] MEDS: Atorvastatin Calcium 40 MG TABLET PO (21:13)
[2020-09-16] MEDS: Gabapentin 600 MG TABLET PO (21:14)
[2020-09-17] MEDS: Ampicillin Sodium/Sulbactam Na 1.5 GM in 0.9 % Sodium Chloride 100 ML IV ×3 (00:39→09:51)
[2020-09-17] MEDS: 0.9 % Sodium Chloride Flush 3 ML SYRINGE IVFLUSH ×2 (00:40→07:53)
[2020-09-17] MEDS: Enoxaparin Sodium 40 MG/0.4 ML SYRINGE SUBCUT (00:41)
[2020-09-17 04:00] VITALS: BP 184/98; PULSE 110; RESP 19; TEMP 36.6; O2SAT 97
[2020-09-17] MEDS: Omeprazole 20 MG CAPSULE.DR PO (05:43)
[2020-09-17 06:00] VITALS: BMI 31.0
[2020-09-17] MEDS: Venlafaxine HCl ER 150 MG CAP.ER.24H PO (07:52)
[2020-09-17] MEDS: allopurinoL 100 MG TABLET PO (07:53)
[2020-09-17] MEDS: Aspirin 81 MG TAB.CHEW PO (07:53)
[2020-09-17] MEDS: Metoprolol Succinate ER 50 MG TAB.ER.24H PO (07:53)
[2020-09-17] MEDS: Tamsulosin HCL 0.4 MG CAPSULE PO (07:53)
[2020-09-17] MEDS: Gabapentin 600 MG TABLET PO ×2 (07:53→13:18)
[2020-09-17] MEDS: amLODIPine Besylate 2.5 MG TABLET PO (07:54)
[2020-09-17 07:56] VITALS: BP 167/79; PULSE 104; RESP 18; TEMP 37.2; O2SAT 91
[2020-09-17] MEDS: Insulin Lispro 100 UNIT/ML 3 ML VIAL SUBCUT ×4 (08:02→12:03)
[2020-09-17] MEDS: Insulin Glargine,Hum.rec.anlog 100 UNIT/ML 10 ML VIAL 15 UNIT SUBCUT (09:50)
[2020-09-17 11:07] VITALS: BP 167/79; PULSE 104; O2SAT 91
[2020-09-17 11:21] LABS: Glucose, Whole Blood 234 mg/dL (60-115)
[2020-09-17 11:21] LABS: Glucose, Whole Blood 279 mg/dL (60-115)
--- NOTE | 2020-09-17 11:57 | MHC.CM.PN ---
PT DCD HOME WITH [facility]UMPTION OF [facility]RU [facility] PT TAKES SELF TRANSPORTING HOME
--- NOTE | 2020-09-17 17:20 | P.DS_ITS ---
DS: Providers Provider Date of admission: 09/14/20 22:22 Primary care physician: GURMEET Kim DS: Diagnosis Discharge Diagnosis (1) Pneumonia: Status: Acute DS: Summary Hospital Course Hospital Course: history of presenting illness Chief Complaint: Fall, weakness this is a 60-year-old female with an extensive past medical history as below who presents to the hospital with complaint of feeling weak and having a fall while walking with her walker. She reports that her legs felt weak and wobbly and she could not stand and therefore she fell. She denies having any dizziness, vertigo, loss of conscious, no pre-syncope. She also had nausea and vomiting in the afternoon multiple times. She reports urinary frequency with no dysuria or urgency. She has no fever or chills, no abdominal pain. She reports diarrhea for past 2 days. about 2- episodes non-bloody daily. No increased lower extremity edema. Pt usually uses PRN O2 at home due to hx of emphysema, but reports that today she feels more sob than usual. She has no headache, change in vision. She just otherwise feels generally weak. she has no upper respiratory symptoms, no cough, no chest pain. On arrival to the ED pt HDS but found to be satting in the high 80s. Placed on NC 2 L now satting 96%-98%. Labs are significant for WBC count of 11.1, Hgb of 10.8 (baseline), BUN 21, cr of 1.69 (around baseline) Chest CT showed extensive bilateral pulmonary infiltrates with dilated esophagus with retained material. hospital course patient admitted with acute hypoxic respiratory failure felt to be related to pneumonia likely aspiration given CT findings of food in the esophagus and history of gastroparesis patient currently on room air with finger oximetry 93% recommend to continue oxygen as needed during the day and night as previously ordered. Patient treated with IV antibiotic now discharged home on by mouth Jun mentin for total 7 day treatment. diabetes mellitus, With diabetic gastroparesis recommend to continue home medication and diabetic Joaquín/mild hyperkalemia likely related to poor by mouth intake resolved with ivf Epigastric pain / GERD resolved was likely related to gastroparesis and GERD recommend to continue Prilosec Time Spent with Patient Time attestation: Total time spent providing and/or coordinating discharge services: Physical Exam Vital Signs: Vital Signs: Vital Signs Temp Pulse Resp BP Pulse Ox 09/17/20 11:07 104 H 167/79 H 91 L 09/17/20 07:56 99.0 F 104 H 18 167/79 H 91 L 09/17/20 04:00 98 F 110 H 19 184/98 H 97 09/16/20 23:21 98.1 F 94 19 179/81 H 95 09/16/20 19:56 96.8 F 92 18 149/78 H 100 Body Mass Index 31.0 General patient resting comfortably in no acute distress. Neck is supple no JVD. CVS regular rate rhythm, Respiratory lungs clear to auscultation, no respiratory distress, no wheeze, no rhonchi. Gastrointestinal abdomen soft, nontender, bowel sounds audible, no guarding , no rigidity. Extremities no clubbing , no cyanosis or edema. Neuro nonfocal patient moving all 4 extremity speech clear. Skin no rash DS: Data Data Completed and Pending Labs on day of discharge: Labs from last 24 hours 09/17/20 09/17/20 09/16/20 11:17 07:58 21:02 POC Glucose 234 H 279 H 196 H 09/16/20 17:14 POC Glucose 200 H Preliminary micro results at discharge 09/14/20 20:01 Blood Culture - Preliminary Blood - Venous No growth after 48 hours. 09/14/20 20:01 Blood Culture - Preliminary Blood - Venous No growth after 48 hours. Discharge Plan Discharge Patient Disposition: Home Health Service Referrals: [facility] [Other] Anna Garcia FNP [Primary Care Provider] - Discharge Medications: New amlodipine 2.5 mg Tablet 5 mg PO DAILY Qty: 30 RF: 0 aspirin 81 mg Tablet,Chewable 81 mg PO DAILY Qty: 30 RF: 0 amoxicillin-pot clavulanate 875-125 mg Tablet 875 mg PO Q12H Qty: 10 RF: 0 Continued lorazepam 0.5 mg Tablet 0.5 mg PO DAILY PRN (Reason: Anxiety) RF: 0 atorvastatin 40 mg Tablet 40 mg PO BEDTIME RF: 0 gabapentin 600 mg Tablet 600 mg PO TID RF: 0 Lantus U-100 Insulin 100 unit/mL Solution 10 unit SUBCUT QPM RF: 0 Lantus U-100 Insulin 100 unit/mL Solution 15 unit SUBCUT QAM RF: 0 metoprolol succinate [Toprol XL] 50 mg Tablet Extended Release 24 Hr 50 mg PO DAILY RF: 0 allopurinol 100 mg Tablet 100 mg PO DAILY RF: 0 insulin aspart U-100 [Novolog U-100 Insulin aspart] 100 unit/mL Solution 1 sliding scale dose SUBCUT USEASDIRECTD RF: 0 omeprazole 20 mg Capsule,Delayed Release(Dr/Ec) 20 mg PO DAILY RF: 0 albuterol sulfate 90 mcg/actuation Hfa Aerosol Inhaler 2 puff INHALATION Q6H PRN (Reason: Shortness Of Breath) RF: 0 venlafaxine 150 mg Tablet Extended Release 24hr 150 mg PO DAILY RF: 0 Breo Ellipta 100-25 mcg/dose Blister With Device 1 inh INHALATION DAILY RF: 0 aspirin 81 mg Tablet,Delayed Release (Dr/Ec) 81 mg PO RF: 0 tamsulosin [Flomax] 0.4 mg Capsule 0.4 mg PO DAILY RF: 0 Discontinued amlodipine 2.5 mg Tablet 2.5 mg PO DAILY RF: 0 Discharge Orders: Discharge Order (Routine); Ordered 09/17/20 Ordered By: Cliff Riley Diet: diabetic diet Activity on Discharge: As tolerated Discharge Date/Time: 09/17/20 14:05 Visit Report Forms: Patient Portal Discharge page Care Plan Goals: As per discharge plan Health Concerns: follow diabetic diet finish course of antibiotic and follow-up with PCP Plan of Treatment: follow-up with PCP in 1 week time take antibiotics as prescribed use oxygen during day and night as previously ordered.
== END 2020-09-17 14:05 | disposition home health service (06) | DRG 177 ==
LOC: HO.ED 21:46 → HO.IMC 22:58
PROVIDERS: Family Medicine; Admitting Provider Internal Medicine; Emergency Provider Emergency Medicine; PCP Nurse Practitioner Family; Visit Provider Hospitalist
DX: J69.0 Pneumonitis due to inhalation of food and vomit (principal); J96.01 Acute respiratory failure with hypoxia; N17.9 Acute kidney failure, unspecified; I25.10 Atherosclerotic heart disease of native coronary artery without angina pectoris; K21.9 Gastro-esophageal reflux disease without esophagitis; E11.43 Type 2 diabetes mellitus with diabetic autonomic (poly)neuropathy; K31.84 Gastroparesis; E11.65 Type 2 diabetes mellitus with hyperglycemia; Z20.828 Contact with and (suspected) exposure to other viral communicable diseases; E87.5 Hyperkalemia; Z86.73 Personal history of transient ischemic attack (TIA), and cerebral infarction without residual deficits; Z95.1 Presence of aortocoronary bypass graft; Z87.891 Personal history of nicotine dependence; Z79.4 Long term (current) use of insulin; Z79.82 Long term (current) use of aspirin; Z79.899 Other long term (current) drug therapy
CPT/HCPCS: 36415; 70450; 71250; 72125; 80048; 80076; 82272; 82550; 82947; 83605; 83690; 83735; 83880; 84484; 85025; 85610; 85730; 87040; 87635; 93005; 96365; 96375; 97110; 97116; 97162; 97166; 99285; J1650; J2270

== ENCOUNTER 2020-10-11 13:27 | Emergency (ER) | payer OTHER, SELFPAY ==
[2020-10-11 13:35] VITALS: BP 144/80; BP 153/82; PULSE 98; RESP 18; TEMP 37.2; O2SAT 98; BMI 29.9
--- NOTE | 2020-10-11 14:27 | XR_ITS ---
EXAMINATION: XR CHEST CLINICAL INFORMATION: Shortness of breath. COMPARISON: 08/16/2020 chest radiographs. TECHNIQUE: Frontal view of the chest was obtained. FINDINGS: The lungs are clear. The heart and mediastinal structures are unremarkable. A left-sided pacemaker appears in good position. Multilevel sternotomy wires are intact. XR/XR chest 1V IMPRESSION: No acute cardiopulmonary process.
[2020-10-11 14:28] VITALS: BP 176/95; PULSE 95; O2SAT 100
[2020-10-11 14:46] LABS: Glucose, Whole Blood 323 mg/dL (60-115)
[2020-10-11 14:59] LABS: MANUAL DIFF FLAG NO
[2020-10-11 15:01] LABS: Basophils Percent Auto 0.5 % (0-2); Eosinophils Absolute Auto 0.1 X10*3/uL (0.0-0.4); Eosinophils Percent Auto 1.4 % (0-4); Hematocrit 35.4 % (37-47); Hemoglobin 10.5 g/dl (12.0-16.0); Imm Gran Abs Auto 0.02 X10*3/uL (0.00-0.03); Imm Gran Pct Auto 0.3 % (0.0-0.4); Lymphocytes Absolute Auto 1.4 X10*3/uL (1.2-4.9); Lymphocytes Percent Auto 22.3 % (20-40); Mean Corpuscular HGB Conc 29.7 g/dl (31.0-35.0); Mean Corpuscular Hemoglobin 24.4 pg (27.0-33.0); Mean Corpuscular Volume 82.1 fL (80-98); Mean Platelet Volume 9.9 fL (9.4-12.3); Monocytes Absolute Auto 0.6 X10*3/uL (0.1-1.2); Monocytes Percent Auto 8.7 % (2-11); Neutrophils Absolute Auto 4.3 X10*3/uL (2.0-8.3); Neutrophils Percent Auto 66.8 % (45-73); Platelet Count 365 X10*3/uL (160-400); Red Blood Count 4.31 X10*6/uL (4.20-5.50); Red Cell Distribution Width 15.4 % (11.0-16.0); White Blood Count 6.5 X10*3/uL (4.8-10.8)
[2020-10-11 15:13] LABS: COVID-19 Test Negative (Negative); IDNOW Serial# 9DD0AD1C
[2020-10-11 15:38] LABS: Anion Gap 15 (12-20); Blood Urea Nitrogen 19 mg/dL (9-16); Calcium 8.1 mg/dL (8.4-10.2); Carbon Dioxide 28 mmol/L (22-29); Chloride 99 mmol/L (96-108); Creatinine Clr Calc Pharmacy 37.7; Estimated Glomerular Filt Rate 36; Glucose Random 298 mg/dL (60-115); Potassium 5.5 mmol/l (3.3-5.1); Sodium 136 mmol/L (135-145)
--- NOTE | 2020-10-11 15:40 | ED_ITS ---
HPI - SOB/Dyspnea General Chief Complaint: General Medical Stated Complaint: DIFF BREATHING Time Seen by Provider: 10/11/20 13:40 Source: patient Mode of arrival: EMS Limitations: no limitations History of Present Illness HPI Narrative: patient has history of COPD/asthma comes here frequently for shortness of breaths this time she is complaining of shortness of breath for last 5 days with increased weakness and chills patient is on home oxygen 2 L 24 hours was saturating 98% on room air on arrival cough is mostly dry no recent contact with COVID blood sugar was 323 on arrival MD elicited complaint: shortness of breath Pertinent past history: COPD and asthma Onset (ago): day(s) (5) Severity: moderate Exacerbating factors: exertion Relieving factors: nothing Known history of: COPD and asthma Treatment prior to arrival: oxygen Related Data Home oxygen amount: 2 liters Home Medications Medication Instructions Recorded Confirmed lorazepam 0.5 mg PO DAILY PRN 09/14/20 09/14/20 Breo Ellipta 1 inh INHALATION DAILY 09/16/20 09/16/20 Lantus U-100 Insulin 10 unit SUBCUT QPM 09/16/20 09/16/20 Lantus U-100 Insulin 15 unit SUBCUT QAM 09/16/20 09/16/20 albuterol sulfate 2 puff INHALATION Q6H PRN 09/16/20 09/16/20 allopurinol 100 mg PO DAILY 09/16/20 09/16/20 aspirin 81 mg PO 09/16/20 atorvastatin 40 mg PO BEDTIME 09/16/20 09/16/20 gabapentin 600 mg PO TID 09/16/20 09/16/20 insulin aspart U-100 [Novolog 1 sliding scale dose SUBCUT 09/16/20 09/16/20 U-100 Insulin aspart] USEASDIRECTD metoprolol succinate [Toprol XL] 50 mg PO DAILY 09/16/20 09/16/20 omeprazole 20 mg PO DAILY 09/16/20 09/16/20 tamsulosin [Flomax] 0.4 mg PO DAILY 09/16/20 09/16/20 venlafaxine 150 mg PO DAILY 09/16/20 09/16/20 Previous Rx's Medication Instructions Recorded amlodipine 5 mg PO DAILY #30 tab 09/17/20 amoxicillin-pot clavulanate 875 mg PO Q12H #10 tab 09/17/20 aspirin 81 mg PO DAILY #30 tab 09/17/20 Allergies Allergy/AdvReac Type Severity Reaction Status Date / Time tetracycline [Tetracycline] Allergy Mild HIVES, Verified 09/14/20 20:06 anaphylaxis, anaphylaxis Review of Systems Review of Systems: REVIEW OF SYSTEMS: Pertinent positives and negatives are stated above in the history. GEN: no fevers, ++chills, ++fatigue HEENT: no nasal congestion, sore throat, ear pain NEURO: no headache, dizziness, focal weakness PULM: no cough, CV: no chest pain, palpitations, LE edema ABD: no abdominal pain, nausea, vomiting, diarrhea : no dysuria, urgency, frequency SKIN: no rash ROS otherwise negative x 10 PMFSH Past Medical History Medical History Anemia Anxiety Arthritis Carpal tunnel syndrome Coronary artery disease CVA (cerebral vascular accident) Diabetes Fall Gastritis Gastroparesis GERD (gastroesophageal reflux disease) Headache HTN (hypertension) Hypoxia IBS (irritable bowel syndrome) Myocardial infarct Nausea and vomiting Pacemaker Renal failure UTI (urinary tract infection) Surgical History H/O: hysterectomy History of appendectomy Hx of CABG Hx of cholecystectomy Social History Social History Household Members: Family Housing: Apartment Smoking Status: Former smoker Advance Directives: No Advance Directives Information Provided: Yes service: No Current occupational status: disabled Physical Exam Vital Signs: Vital Signs: Last Vital Signs Temp 99 F 10/11/20 13:35 Pulse 95 10/11/20 14:28 Resp 18 10/11/20 13:35 BP 176/95 H 10/11/20 14:28 Pulse Ox 100 10/11/20 14:28 Body Mass Index 29.9 VITAL SIGNS: Reviewed. GENERAL: Well developed, well nourished, in no acute distress. HEAD: Normocephalic/atraumatic, EYES: PERRLA No pallor/icterus noted OROPHARYNX: Oral mucosa moist no oral lesions NECK: Supple, no adenopathy LUNGS: decreased air entry bilateral no crackles or rales prolonged expiration mild wheezing and rhonchi. No accessory muscle use CARDIOVASCULAR: Regular rate and rhythm without noted murmurs, no JVD or lower extremity edema. ABDOMEN: Soft, non-tender, non-distended with normal bowel sounds. No rigidity. No guarding. No palpable masses or hernias noted MUSCULOSKELETAL: No tenderness, deformities, EXTREMITIES: No cyanosis or edema. SKIN: no rashes, ulcerations, jaundice, pallor, or petechiae NEUROLOGIC: Alert and oriented x 3. Strength and sensation to light touch were grossly intact normal speech Course Course Course Narrative: patient with COPD/asthma came here for shortness of breath COVID is negative chest x-ray negative saturating 98% at room air will discharge her home advised to continue her nebulizing treatments at home and oxygen MDM - SOB/Dyspnea Differential Diagnosis Differential diagnosis: Likely acute exacerbation of chronic obstructive airways disease, pneumonia and asthma with exacerbation Medical Records Attestation: I reviewed the patient's medical records. Lab Data Attestation: I reviewed the patient's lab results. Result diagrams: 10/11/20 14:55 10/11/20 14:55 Labs: Lab Results 10/11/20 10/11/20 10/11/20 Range/Units 14:26 14:34 14:55 WBC 6.5 (4.8-10.8) X10*3/uL RBC 4.31 (4.20-5.50) X10*6/uL Hgb 10.5 L (12.0-16.0) g/dl Hct 35.4 L (37-47) % MCV 82.1 (80-98) fL MCH 24.4 L (27.0-33.0) pg MCHC 29.7 L (31.0-35.0) g/dl RDW 15.4 (11.0-16.0) % Plt Count 365 D (160-400) X10*3/uL MPV 9.9 (9.4-12.3) fL Immature Gran % (Auto) 0.3 (0.0-0.4) % Neut % (Auto) 66.8 (45-73) % Lymph % (Auto) 22.3 (20-40) % [place] % (Auto) 8.7 (2-11) % Eos % (Auto) 1.4 (0-4) % Baso % (Auto) 0.5 (0-2) % Lymph # (Auto) 1.4 (1.2-4.9) X10*3/uL [place] # (Auto) 0.6 (0.1-1.2) X10*3/uL Eos # (Auto) 0.1 (0.0-0.4) X10*3/uL Baso # (Auto) 0.0 (0.0-0.2) X10*3/uL Abs Immat Gran (auto) 0.02 (0.00-0.03) X10*3/uL Absolute Neuts (auto) 4.3 (2.0-8.3) X10*3/uL Absolute Nucleated RBC 0.000 (0.0-0.012) X10*3/uL Nucleated RBC % (auto) 0.0 (0.0-0.2) /100WBC Sodium (135-145) mmol/L Potassium (3.3-5.1) mmol/l Chloride (96-108) mmol/L Carbon Dioxide (22-29) mmol/L Anion Gap (12-20) BUN (9-16) mg/dL Creatinine (0.5-1.4) mg/dL Estim Creat Clear Calc Estimated GFR POC Glucose 323 H (60-115) mg/dL Random Glucose (60-115) mg/dL Calcium (8.4-10.2) mg/dL COVID-19 ([facility]) Negative (Negative) COVID-19 Clin Com See Note 10/11/20 Range/Units 14:55 WBC (4.8-10.8) X10*3/uL RBC (4.20-5.50) X10*6/uL Hgb (12.0-16.0) g/dl Hct (37-47) % MCV (80-98) fL MCH (27.0-33.0) pg MCHC (31.0-35.0) g/dl RDW (11.0-16.0) % Plt Count (160-400) X10*3/uL MPV (9.4-12.3) fL Immature Gran % (Auto) (0.0-0.4) % Neut % (Auto) (45-73) % Lymph % (Auto) (20-40) % [place] % (Auto) (2-11) % Eos % (Auto) (0-4) % Baso % (Auto) (0-2) % Lymph # (Auto) (1.2-4.9) X10*3/uL [place] # (Auto) (0.1-1.2) X10*3/uL Eos # (Auto) (0.0-0.4) X10*3/uL Baso # (Auto) (0.0-0.2) X10*3/uL Abs Immat Gran (auto) (0.00-0.03) X10*3/uL Absolute Neuts (auto) (2.0-8.3) X10*3/uL Absolute Nucleated RBC (0.0-0.012) X10*3/uL Nucleated RBC % (auto) (0.0-0.2) /100WBC Sodium 136 (135-145) mmol/L Potassium 5.5 H (3.3-5.1) mmol/l Chloride 99 (96-108) mmol/L Carbon Dioxide 28 (22-29) mmol/L Anion Gap 15 (12-20) BUN 19 H (9-16) mg/dL Creatinine 1.46 H (0.5-1.4) mg/dL Estim Creat Clear Calc 37.7 Estimated GFR 36 POC Glucose (60-115) mg/dL Random Glucose 298 H (60-115) mg/dL Calcium 8.1 L (8.4-10.2) mg/dL COVID-19 ([facility]) (Negative) COVID-19 Clin Com Discharge Plan Discharge Clinical Impression: Asthma Qualifiers: Asthma severity: moderate Asthma persistence: persistent Asthma complication type: with acute exacerbation Qualified Code(s): J45.41 - Moderate persistent asthma with (acute) exacerbation Renal failure (ARF), acute on chronic Qualifiers: Acute renal failure type: unspecified Chronic kidney disease stage: stage 2 (mild) Qualified Code(s): N17.9 - Acute kidney failure, unspecified Patient Disposition: Home, Self-Care Additional Instructions: continue your inhaler and oxygen and follow up with PCP drink plenty of fluids Prescriptions: No Action lorazepam 0.5 mg Tablet 0.5 mg PO DAILY PRN (Reason: Anxiety) RF: 0 atorvastatin 40 mg Tablet 40 mg PO BEDTIME RF: 0 gabapentin 600 mg Tablet 600 mg PO TID RF: 0 Lantus U-100 Insulin 100 unit/mL Solution 10 unit SUBCUT QPM RF: 0 Lantus U-100 Insulin 100 unit/mL Solution 15 unit SUBCUT QAM RF: 0 metoprolol succinate [Toprol XL] 50 mg Tablet Extended Release 24 Hr 50 mg PO DAILY RF: 0 allopurinol 100 mg Tablet 100 mg PO DAILY RF: 0 insulin aspart U-100 [Novolog U-100 Insulin aspart] 100 unit/mL Solution 1 sliding scale dose SUBCUT USEASDIRECTD RF: 0 omeprazole 20 mg Capsule,Delayed Release(Dr/Ec) 20 mg PO DAILY RF: 0 albuterol sulfate 90 mcg/actuation Hfa Aerosol Inhaler 2 puff INHALATION Q6H PRN (Reason: Shortness Of Breath) RF: 0 venlafaxine 150 mg Tablet Extended Release 24hr 150 mg PO DAILY RF: 0 Breo Ellipta 100-25 mcg/dose Blister With Device 1 inh INHALATION DAILY RF: 0 aspirin 81 mg Tablet,Delayed Release (Dr/Ec) 81 mg PO RF: 0 tamsulosin [Flomax] 0.4 mg Capsule 0.4 mg PO DAILY RF: 0 amlodipine 2.5 mg Tablet 5 mg PO DAILY Qty: 30 RF: 0 aspirin 81 mg Tablet,Chewable 81 mg PO DAILY Qty: 30 RF: 0 amoxicillin-pot clavulanate 875-125 mg Tablet 875 mg PO Q12H Qty: 10 RF: 0
[2020-10-11] MEDS: Insulin Lispro 100 UNIT/ML 3 ML VIAL 6 UNIT SUBCUT (16:21)
[2020-10-11] MEDS: 0.9 % Sodium Chloride 1,000 ML 999 ML IVCONT (16:22)
[2020-10-11] MEDS: Sodium Polystyrene Sulfon/Sorb 15 GM/60 ML ORAL.SUSP 30 GM PO (16:22)
[2020-10-11] MEDS: Albuterol Sulfate 90 MCG 8 GM INHALER 4 PUFF INHALE (16:32)
== END 2020-10-11 17:31 | disposition home or self-care (01) ==
PROVIDERS: Emergency Provider Internal Medicine
DX: J45.41 Moderate persistent asthma with (acute) exacerbation (principal); I12.9 Hypertensive chronic kidney disease with stage 1 through stage 4 chronic kidney disease, or unspecified chronic kidney disease; E11.22 Type 2 diabetes mellitus with diabetic chronic kidney disease; N18.2 Chronic kidney disease, stage 2 (mild); N17.9 Acute kidney failure, unspecified; Z79.899 Other long term (current) drug therapy; Z20.828 Contact with and (suspected) exposure to other viral communicable diseases; Z87.891 Personal history of nicotine dependence
CPT/HCPCS: 36415; 71045; 80048; 82947; 85025; 87635; 96360; 99283; 99284

== ENCOUNTER 2020-10-27 10:59 | Emergency (ER) | payer OTHER, SELFPAY ==
[2020-10-27 11:12] VITALS: BP 132/78; BP 169/95; PULSE 89; PULSE 91; RESP 19; TEMP 37.2; O2SAT 100; O2SAT 98; BMI 36.5
--- NOTE | 2020-10-27 11:28 | ED.FALL ---
HPI - Fall General Chief Complaint: Fall Stated Complaint: FALL LAST NIGHT,R HEAD/FACE PAIN Time Seen by Provider: 10/27/20 11:28 Source: patient Mode of arrival: EMS Limitations: no limitations History of Present Illness HPI Narrative: Patient got up from a recliner quick and lost balance fell backwards hitting her right side of face to the dresser and the bottom to the ground complaining of low back pains since then no loss of consciousness no chest pain patient feels short of breath which is chronic but saturating 100% at room air MD complaint: fall Onset (ago): hour(s) (12) Fall from: standing Fall witnessed: no Place fall occurred: home Loss of consciousness: none Prolonged down time: no Symptoms prior to fall: lightheadedness Context: history of frequent falls Location of injury: head and back Related Data Home Medications Medication Instructions Recorded Confirmed lorazepam 0.5 mg PO DAILY PRN 09/14/20 09/14/20 Breo Ellipta 1 inh INHALATION DAILY 09/16/20 09/16/20 Lantus U-100 Insulin 10 unit SUBCUT QPM 09/16/20 09/16/20 Lantus U-100 Insulin 15 unit SUBCUT QAM 09/16/20 09/16/20 albuterol sulfate 2 puff INHALATION Q6H PRN 09/16/20 09/16/20 allopurinol 100 mg PO DAILY 09/16/20 09/16/20 aspirin 81 mg PO 09/16/20 atorvastatin 40 mg PO BEDTIME 09/16/20 09/16/20 gabapentin 600 mg PO TID 09/16/20 09/16/20 insulin aspart U-100 [Novolog 1 sliding scale dose SUBCUT 09/16/20 09/16/20 U-100 Insulin aspart] USEASDIRECTD metoprolol succinate [Toprol XL] 50 mg PO DAILY 09/16/20 09/16/20 omeprazole 20 mg PO DAILY 09/16/20 09/16/20 tamsulosin [Flomax] 0.4 mg PO DAILY 09/16/20 09/16/20 venlafaxine 150 mg PO DAILY 09/16/20 09/16/20 Previous Rx's Medication Instructions Recorded amlodipine 5 mg PO DAILY #30 tab 09/17/20 amoxicillin-pot clavulanate 875 mg PO Q12H #10 tab 09/17/20 aspirin 81 mg PO DAILY #30 tab 09/17/20 oxycodone 5 mg PO Q6H PRN #14 tab 10/27/20 Allergies Allergy/AdvReac Type Severity Reaction Status Date / Time tetracycline [Tetracycline] Allergy Mild HIVES, Verified 10/27/20 11:18 anaphylaxis, anaphylaxis Review of Systems Review of Systems: REVIEW OF SYSTEMS: Pertinent positives and negatives are stated above in the history. GEN: no fevers, chills, fatigue HEENT: no nasal congestion, sore throat, ear pain NEURO: no headache, dizziness, focal weakness PULM: no cough, shortness of breath CV: no chest pain, palpitations, LE edema + ABD: no abdominal pain, nausea, vomiting, diarrhea : no dysuria, urgency, frequency SKIN: no rash ROS otherwise negative x 10 FORMERLY [facility], [facility] Past Medical History Medical History Anemia Anxiety Arthritis Carpal tunnel syndrome Coronary artery disease CVA (cerebral vascular accident) Diabetes Fall Gastritis Gastroparesis GERD (gastroesophageal reflux disease) Headache HTN (hypertension) Hypoxia IBS (irritable bowel syndrome) Myocardial infarct Nausea and vomiting Pacemaker Renal failure UTI (urinary tract infection) Surgical History H/O: hysterectomy History of appendectomy Hx of CABG Hx of cholecystectomy Social History Social History Household Members: Family Housing: Apartment Alcohol intake: never Smoking Status: Former smoker Smoked in Last 30 Days: No Use of substances other than those prescribed or required for medical reasons: No Advance Directives: No Advance Directives Information Provided: No service: No Current occupational status: disabled Physical Exam Vital Signs: Vital Signs: Last Vital Signs Temp 98.9 F 10/27/20 11:12 Pulse 89 10/27/20 11:12 Resp 19 10/27/20 11:12 BP 169/95 H 10/27/20 11:12 Pulse Ox 100 10/27/20 11:12 Body Mass Index 36.5 Appearance: Alert. Oriented X3. No acute distress. Eyes: Pupils equal, round and reactive to light. ENT: Pharynx normal. Neck: Normal inspection. Neck supple. CVS: Normal heart rate and rhythm. Pulses normal. Respiratory: No respiratory distress. Breath sounds normal. Abdomen: Soft and nontender. Skin: Skin warm and dry. Normal skin color. Normal skin turgor. Extremities:1+ lower extremity edema. Good range of movement SLR negative both legs Back: Diffuse tenderness L3-L5 area no ecchymosis no deformity Neuro: Oriented X 3. No motor deficit. No sensory deficit. MDM - Fall MDM Narrative Medical decision making narrative: Patient with mechanical fall with history of frequent falls in the past lost balance when she stood up all of a sudden no loss of consciousness extra lower back is negative for any fracture patient feeling much better now after pain medication will discharge her home on pain management ECG Data Attestation: I personally reviewed and interpreted this ECG as follows: Interpretation: Normal sinus rhythm heart rate 90 incomplete left bundle branch block right nonspecific ST T wave changes QT interval prolonged to 501 millisecond impression no acute ischemia no acute change from EKG on 09/14 Discharge Plan Discharge Clinical Impression: Contusion of back Qualifiers: Encounter type: initial encounter Laterality: unspecified laterality Qualified Code(s): S20.229A - Contusion of unspecified back wall of thorax, initial encounter Patient Disposition: Home, Self-Care Instructions: Back Pain (ED) Additional Instructions: Seat on a donut rubber tube. For relieving pain in the lower back sacral area. Pain medication as prescribed Prescriptions: New oxycodone 5 mg tablet 5 mg PO Q6H PRN (Reason: pain) Qty: 14 RF: 0 No Action lorazepam 0.5 mg Tablet 0.5 mg PO DAILY PRN (Reason: Anxiety) RF: 0 atorvastatin 40 mg Tablet 40 mg PO BEDTIME RF: 0 gabapentin 600 mg Tablet 600 mg PO TID RF: 0 Lantus U-100 Insulin 100 unit/mL Solution 10 unit SUBCUT QPM RF: 0 Lantus U-100 Insulin 100 unit/mL Solution 15 unit SUBCUT QAM RF: 0 metoprolol succinate [Toprol XL] 50 mg Tablet Extended Release 24 Hr 50 mg PO DAILY RF: 0 allopurinol 100 mg Tablet 100 mg PO DAILY RF: 0 insulin aspart U-100 [Novolog U-100 Insulin aspart] 100 unit/mL Solution 1 sliding scale dose SUBCUT USEASDIRECTD RF: 0 omeprazole 20 mg Capsule,Delayed Release(Dr/Ec) 20 mg PO DAILY RF: 0 albuterol sulfate 90 mcg/actuation Hfa Aerosol Inhaler 2 puff INHALATION Q6H PRN (Reason: Shortness Of Breath) RF: 0 venlafaxine 150 mg Tablet Extended Release 24hr 150 mg PO DAILY RF: 0 Breo Ellipta 100-25 mcg/dose Blister With Device 1 inh INHALATION DAILY RF: 0 aspirin 81 mg Tablet,Delayed Release (Dr/Ec) 81 mg PO RF: 0 tamsulosin [Flomax] 0.4 mg Capsule 0.4 mg PO DAILY RF: 0 amlodipine 2.5 mg Tablet 5 mg PO DAILY Qty: 30 RF: 0 aspirin 81 mg Tablet,Chewable 81 mg PO DAILY Qty: 30 RF: 0 amoxicillin-pot clavulanate 875-125 mg Tablet 875 mg PO Q12H Qty: 10 RF: 0 Interventions: ED Discharge Assessment Last Done: 10/27/20 14:39 Discharge Date/Time: 10/27/20 14:40
--- NOTE | 2020-10-27 11:35 | XR_ITS ---
EXAMINATION: XR LUMBOSACRAL SPINE CLINICAL INFORMATION: Status post fall. COMPARISON: None TECHNIQUE: Three views of the lumbosacral spine. FINDINGS: There is normal lumbar lordosis. The vertebral heights and alignment is normal. There is loss of L5-S1 disc height. Rest of the disc heights are normal. No visible acute fracture, dislocation or lytic process seen. Incidental note of mild to moderate constipation. XR/XR lumbar spine 2-3V IMPRESSION: Degenerative disc changes at L5-S1 disc level.
--- NOTE | 2020-10-27 11:47 | ECG_ITS ---
Test Reason : FALL Blood Pressure : / mmHG Vent. Rate : 090 BPM Atrial Rate : 090 BPM P-R Int : 222 ms QRS Dur : 108 ms QT Int : 410 ms P-R-T Axes : 001 109 -56 degrees QTc Int : 501 ms Atrial-sensed ventricular-paced rhythm Prolonged QT Abnormal ECG When compared to the previous EKG of No significant changes seen Referred By: Jero Vaughn Electronically Signed By:LG SALAZAR MD
[2020-10-27] MEDS: oxyCODONE HCl Immed Release 5 MG TABLET 10 MG PO (11:53)
--- NOTE | 2020-10-27 11:53 | PC.NURSE ---
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
== END 2020-10-27 14:40 | disposition home or self-care (01) ==
PROVIDERS: Emergency Provider Internal Medicine
DX: S20.229A Contusion of unspecified back wall of thorax, initial encounter (principal); M54.5 Low back pain; W01.0XXA Fall on same level from slipping, tripping and stumbling without subsequent striking against object, initial encounter; Y93.9 Activity, unspecified; Y92.009 Unspecified place in unspecified non-institutional (private) residence as the place of occurrence of the external cause; Y99.9 Unspecified external cause status; Z79.899 Other long term (current) drug therapy; Z87.891 Personal history of nicotine dependence
CPT/HCPCS: 72100; 93005; 99283; 99284

== ENCOUNTER 2020-10-31 17:58 | Inpatient (IN) | payer OTHER, SELFPAY ==
[2020-10-31 18:04] VITALS: BP 137/89; BP 138/79; PULSE 87; PULSE 93; RESP 16; TEMP 36.7; O2SAT 91; O2SAT 94; BMI 32.4
[2020-10-31 18:20] VITALS: BP 131/84; PULSE 92; RESP 10; O2SAT 100
--- NOTE | 2020-10-31 18:33 | ED.DIZZY ---
HPI - Dizziness General Chief Complaint: Dizziness Stated Complaint: dizziness Time Seen by Provider: 10/31/20 18:33 Source: EMS Mode of arrival: EMS Limitations: no limitations History of Present Illness HPI Narrative: Patient diabetic been here for multiple times this time comes here for feeling weak and dizzy for last 1 week patient denies any fever no chills no cough , but feels short of breath when ambulates, was seen by PCP yesterday has increased leg swelling lately no chest pain patient also noticed increased swelling of the leg and facial puffiness for last few days not on any diuretics no known diagnosis of congestive heart failure MD elicited complaint: dizziness, lightheadedness and difficulty walking Onset (ago): week(s) (1) Timing: gradual onset Severity: moderate Description: lightheadedness History of similar symptoms: Yes Exacerbating factors: exertion Associated symptoms: denies other symptoms Related Data Home Medications Medication Instructions Recorded Confirmed lorazepam 0.5 mg PO DAILY PRN 09/14/20 11/01/20 Breo Ellipta 1 inh INHALATION DAILY 09/16/20 10/31/20 Lantus U-100 Insulin 10 unit SUBCUT QPM 09/16/20 11/01/20 Lantus U-100 Insulin 15 unit SUBCUT QAM 09/16/20 11/01/20 albuterol sulfate 2 puff INHALATION Q6H PRN 09/16/20 10/31/20 allopurinol 100 mg PO DAILY 09/16/20 10/31/20 aspirin 81 mg PO DAILY 09/16/20 10/31/20 atorvastatin 40 mg PO BEDTIME 09/16/20 09/16/20 gabapentin 600 mg PO TID 09/16/20 11/01/20 insulin aspart U-100 [Novolog 1 sliding scale dose SUBCUT 09/16/20 11/01/20 U-100 Insulin aspart] USEASDIRECTD metoprolol succinate [Toprol XL] 50 mg PO DAILY 09/16/20 11/01/20 omeprazole 20 mg PO DAILY 09/16/20 11/01/20 venlafaxine 150 mg PO DAILY 09/16/20 11/01/20 Previous Rx's Medication Instructions Recorded oxycodone 5 mg PO Q6H PRN #14 tab 10/27/20 amlodipine 2.5 mg tablet 2.5 mg PO DAILY #90 tab 10/28/20 Allergies Allergy/AdvReac Type Severity Reaction Status Date / Time tetracycline [Tetracycline] Allergy Mild HIVES, Verified 10/27/20 11:18 anaphylaxis, anaphylaxis Review of Systems Review of Systems: REVIEW OF SYSTEMS: Pertinent positives and negatives are stated above in the history. GEN: no fevers, chills, fatigue++ HEENT: no nasal congestion, sore throat, ear pain NEURO: no headache, dizziness, focal weakness PULM: no cough, shortness of breath CV: no chest pain, palpitations, ++LE edema ABD: no abdominal pain, nausea, vomiting, diarrhea : no dysuria, urgency, frequency SKIN: no rash ROS otherwise negative x 10 PMFSH Past Medical History Medical History Anemia Anxiety Arthritis Carpal tunnel syndrome Coronary artery disease CVA (cerebral vascular accident) Diabetes Fall Gastritis Gastroparesis GERD (gastroesophageal reflux disease) Headache HTN (hypertension) Hypoxia IBS (irritable bowel syndrome) Myocardial infarct Nausea and vomiting Pacemaker Renal failure UTI (urinary tract infection) Surgical History H/O: hysterectomy History of appendectomy Hx of CABG Hx of cholecystectomy Social History Social History Household Members: Family Housing: Apartment Alcohol intake: never Smoking Status: Former smoker Smoked in Last 30 Days: No Use of substances other than those prescribed or required for medical reasons: No Advance Directives: No Advance Directives Information Provided: Yes service: No Current occupational status: disabled Physical Exam Vital Signs: Vital Signs: Last Vital Signs Temp 99.3 F 10/31/20 20:03 Pulse 87 11/01/20 01:00 Resp 16 11/01/20 01:00 BP 122/62 11/01/20 01:00 Pulse Ox 100 10/31/20 22:19 Body Mass Index 32.4 VITAL SIGNS: Reviewed. GENERAL: Well developed, well nourished, looks pale with facial swelling HEAD: Normocephalic/atraumatic, EYES: PERRLA pallor+++ no icterus noted OROPHARYNX: Oral mucosa moist no oral lesions NECK: Supple, no adenopathy LUNGS: Normal breath sounds. No adventitious sounds or accessory muscle use CARDIOVASCULAR: Regular rate and rhythm without noted murmurs, no JVD or lower extremity edema. ABDOMEN: Soft, non-tender, non-distended with normal bowel sounds. No rigidity. No guarding. No palpable masses or hernias noted MUSCULOSKELETAL: No tenderness, deformities, EXTREMITIES: No cyanosis 3+ leg edema++ right metatarsal amputation SKIN: no rashes, ulcerations, jaundice, pallor, or petechiae NEUROLOGIC: Alert and oriented x 3. Strength and sensation to light touch were grossly intact normal speech MDM - Dizziness MDM Narrative Medical decision making narrative: Patient with worsening of leg swelling shortness of breath labs showed elevated BNP usual number was 268 in 09/10 now it is 1230 EKG without any acute ischemia high serum troponin was elevated but repeat troponin did not show any delta increase will admit patient for CHF exacerbation, anemia. And CKD also patient's potassium was 5.8 will give her Kayexalate also given Lasix will admit patient for IV diuresis. Patient white counts are elevated etiology is not clear she is not on any prednisone will check the urine Medical Records Attestation: I reviewed the patient's medical records. Lab Data Attestation: I reviewed the patient's lab results. Result diagrams: 10/31/20 19:32 10/31/20 20:22 Labs: Lab Results 10/31/20 10/31/20 10/31/20 Range/Units 19:32 19:32 19:32 WBC 16.0 H (4.8-10.8) X10*3/uL RBC 3.49 L (4.20-5.50) X10*6/uL Hgb 8.4 L (12.0-16.0) g/dl Hct 28.8 L (37-47) % MCV 82.5 (80-98) fL MCH 24.1 L (27.0-33.0) pg MCHC 29.2 L (31.0-35.0) g/dl RDW 15.9 (11.0-16.0) % Plt Count 307 (160-400) X10*3/uL MPV 10.2 (9.4-12.3) fL Immature Gran % (Auto) 0.6 H (0.0-0.4) % Neut % (Auto) 90.4 H (45-73) % Lymph % (Auto) 4.9 L (20-40) % [place] % (Auto) 3.6 (2-11) % Eos % (Auto) 0.2 (0-4) % Baso % (Auto) 0.3 (0-2) % Lymph # (Auto) 0.8 L (1.2-4.9) X10*3/uL [place] # (Auto) 0.6 (0.1-1.2) X10*3/uL Eos # (Auto) 0.0 (0.0-0.4) X10*3/uL Baso # (Auto) 0.0 (0.0-0.2) X10*3/uL Abs Immat Gran (auto) 0.09 H (0.00-0.03) X10*3/uL Absolute Neuts (auto) 14.5 H (2.0-8.3) X10*3/uL Absolute Nucleated RBC 0.000 (0.0-0.012) X10*3/uL Nucleated RBC % (auto) 0.0 (0.0-0.2) /100WBC Smear Tech's Comments VERIFIED PT (10.8-13.0) SEC INR (0.9-1.1) VBG pH (7.32-7.43) VBG pCO2 mmhg VBG pO2 mmhg VBG HCO3 mmol/L VBG O2 Saturation % VBG Base Excess mmol/L Sodium Cancelled Potassium Cancelled Chloride Cancelled Carbon Dioxide Cancelled Anion Gap Cancelled BUN Cancelled Creatinine Cancelled Estim Creat Clear Calc Cancelled Estimated GFR Cancelled Random Glucose Cancelled Lactic Acid (0.5-2.0) mmol/L Calcium Cancelled Total Bilirubin Cancelled AST Cancelled ALT Cancelled Alkaline Phosphatase Cancelled Troponin I High Sens 87.6 H D (<3.5-17.0) ng/L B-Natriuretic Peptide 1230 H (<100) pg/mL Total Protein Cancelled Albumin Cancelled Urine Color Urine Appearance Urine pH (5.0-8.0) Ur Specific [place] (1.005-1.025) Urine Protein (NEG-TRACE) MG/DL Urine Glucose (UA) (NEG) MG/DL Urine Ketones (NEG) MG/DL Urine Blood (NEG) Urine Nitrite (NEG) Ur Leukocyte Esterase (NEG) Coronavirus (PCR) (Negative) Influenza Type A (PCR) (Negative) Influenza Type B (PCR) (Negative) RSV RNA Qual (PCR) (Negative) Blood Type Antibody Screen 10/31/20 10/31/20 10/31/20 Range/Units 19:32 19:32 19:42 WBC (4.8-10.8) X10*3/uL RBC (4.20-5.50) X10*6/uL Hgb (12.0-16.0) g/dl Hct (37-47) % MCV (80-98) fL MCH (27.0-33.0) pg MCHC (31.0-35.0) g/dl RDW (11.0-16.0) % Plt Count (160-400) X10*3/uL MPV (9.4-12.3) fL Immature Gran % (Auto) (0.0-0.4) % Neut % (Auto) (45-73) % Lymph % (Auto) (20-40) % [place] % (Auto) (2-11) % Eos % (Auto) (0-4) % Baso % (Auto) (0-2) % Lymph # (Auto) (1.2-4.9) X10*3/uL [place] # (Auto) (0.1-1.2) X10*3/uL Eos # (Auto) (0.0-0.4) X10*3/uL Baso # (Auto) (0.0-0.2) X10*3/uL Abs Immat Gran (auto) (0.00-0.03) X10*3/uL Absolute Neuts (auto) (2.0-8.3) X10*3/uL Absolute Nucleated RBC (0.0-0.012) X10*3/uL Nucleated RBC % (auto) (0.0-0.2) /100WBC Smear Tech's Comments PT 12.8 (10.8-13.0) SEC INR 1.1 (0.9-1.1) VBG pH (7.32-7.43) VBG pCO2 mmhg VBG pO2 mmhg VBG HCO3 mmol/L VBG O2 Saturation % VBG Base Excess mmol/L Sodium Potassium Chloride Carbon Dioxide Anion Gap BUN Creatinine Estim Creat Clear Calc Estimated GFR Random Glucose Lactic Acid 0.9 (0.5-2.0) mmol/L Calcium Total Bilirubin AST ALT Alkaline Phosphatase Troponin I High Sens (<3.5-17.0) ng/L B-Natriuretic Peptide (<100) pg/mL Total Protein Albumin Urine Color Urine Appearance Urine pH (5.0-8.0) Ur Specific [place] (1.005-1.025) Urine Protein (NEG-TRACE) MG/DL Urine Glucose (UA) (NEG) MG/DL Urine Ketones (NEG) MG/DL Urine Blood (NEG) Urine Nitrite (NEG) Ur Leukocyte Esterase (NEG) Coronavirus (PCR) NEGATIVE (Negative) Influenza Type A (PCR) NEGATIVE (Negative) Influenza Type B (PCR) NEGATIVE (Negative) RSV RNA Qual (PCR) NEGATIVE (Negative) Blood Type Antibody Screen 10/31/20 10/31/20 10/31/20 Range/Units 19:42 20:22 20:22 WBC (4.8-10.8) X10*3/uL RBC (4.20-5.50) X10*6/uL Hgb (12.0-16.0) g/dl Hct (37-47) % MCV (80-98) fL MCH (27.0-33.0) pg MCHC (31.0-35.0) g/dl RDW (11.0-16.0) % Plt Count (160-400) X10*3/uL MPV (9.4-12.3) fL Immature Gran % (Auto) (0.0-0.4) % Neut % (Auto) (45-73) % Lymph % (Auto) (20-40) % [place] % (Auto) (2-11) % Eos % (Auto) (0-4) % Baso % (Auto) (0-2) % Lymph # (Auto) (1.2-4.9) X10*3/uL [place] # (Auto) (0.1-1.2) X10*3/uL Eos # (Auto) (0.0-0.4) X10*3/uL Baso # (Auto) (0.0-0.2) X10*3/uL Abs Immat Gran (auto) (0.00-0.03) X10*3/uL Absolute Neuts (auto) (2.0-8.3) X10*3/uL Absolute Nucleated RBC (0.0-0.012) X10*3/uL Nucleated RBC % (auto) (0.0-0.2) /100WBC Smear Tech's Comments PT (10.8-13.0) SEC INR (0.9-1.1) VBG pH 7.32 (7.32-7.43) VBG pCO2 48 mmhg VBG pO2 40 mmhg VBG HCO3 24 mmol/L VBG O2 Saturation 65.6 % VBG Base Excess -2.1 mmol/L Sodium 134 L Potassium 5.8 H Chloride 101 Carbon Dioxide 27 Anion Gap 12 BUN 53 H D Creatinine 1.60 H Estim Creat Clear Calc 44.3 Estimated GFR 33 Random Glucose 187 H D Lactic Acid (0.5-2.0) mmol/L Calcium 7.3 L D Total Bilirubin 0.2 AST 95 H ALT 63 H Alkaline Phosphatase 250 H D Troponin I High Sens (<3.5-17.0) ng/L B-Natriuretic Peptide (<100) pg/mL Total Protein 6.0 L Albumin 2.8 L Urine Color Urine Appearance Urine pH (5.0-8.0) Ur Specific [place] (1.005-1.025) Urine Protein (NEG-TRACE) MG/DL Urine Glucose (UA) (NEG) MG/DL Urine Ketones (NEG) MG/DL Urine Blood (NEG) Urine Nitrite (NEG) Ur Leukocyte Esterase (NEG) Coronavirus (PCR) (Negative) Influenza Type A (PCR) (Negative) Influenza Type B (PCR) (Negative) RSV RNA Qual (PCR) (Negative) Blood Type A Positive Antibody Screen NEGATIVE 10/31/20 11/01/20 Range/Units 22:20 00:15 WBC (4.8-10.8) X10*3/uL RBC (4.20-5.50) X10*6/uL Hgb (12.0-16.0) g/dl Hct (37-47) % MCV (80-98) fL MCH (27.0-33.0) pg MCHC (31.0-35.0) g/dl RDW (11.0-16.0) % Plt Count (160-400) X10*3/uL MPV (9.4-12.3) fL Immature Gran % (Auto) (0.0-0.4) % Neut % (Auto) (45-73) % Lymph % (Auto) (20-40) % [place] % (Auto) (2-11) % Eos % (Auto) (0-4) % Baso % (Auto) (0-2) % Lymph # (Auto) (1.2-4.9) X10*3/uL [place] # (Auto) (0.1-1.2) X10*3/uL Eos # (Auto) (0.0-0.4) X10*3/uL Baso # (Auto) (0.0-0.2) X10*3/uL Abs Immat Gran (auto) (0.00-0.03) X10*3/uL Absolute Neuts (auto) (2.0-8.3) X10*3/uL Absolute Nucleated RBC (0.0-0.012) X10*3/uL Nucleated RBC % (auto) (0.0-0.2) /100WBC Smear Tech's Comments PT (10.8-13.0) SEC INR (0.9-1.1) VBG pH (7.32-7.43) VBG pCO2 mmhg VBG pO2 mmhg VBG HCO3 mmol/L VBG O2 Saturation % VBG Base Excess mmol/L Sodium Potassium Chloride Carbon Dioxide Anion Gap BUN Creatinine Estim Creat Clear Calc Estimated GFR Random Glucose Lactic Acid (0.5-2.0) mmol/L Calcium Total Bilirubin AST ALT Alkaline Phosphatase Troponin I High Sens 105.1 H (<3.5-17.0) ng/L B-Natriuretic Peptide (<100) pg/mL Total Protein Albumin Urine Color COLORLESS Urine Appearance CLEAR Urine pH 6.0 (5.0-8.0) Ur Specific [place] 1.020 (1.005-1.025) Urine Protein 1+ H (NEG-TRACE) MG/DL Urine Glucose (UA) 100 H (NEG) MG/DL Urine Ketones NEG (NEG) MG/DL Urine Blood TRACE (NEG) Urine Nitrite NEG (NEG) Ur Leukocyte Esterase NEG (NEG) Coronavirus (PCR) (Negative) Influenza Type A (PCR) (Negative) Influenza Type B (PCR) (Negative) RSV RNA Qual (PCR) (Negative) Blood Type Antibody Screen ECG Data Attestation: I personally reviewed and interpreted this ECG as follows: Interpretation: Normal sinus rhythm with first-degree AV block p.r. interval 226 milliseconds right axis T inversion in lateral leads without any significant change QTc interval is prolonged to 479 millisecond. Impression no acute ischemia Discharge Plan Discharge Clinical Impression: Weakness Congestive heart failure Qualifiers: Heart failure type: combined systolic and diastolic Heart failure chronicity: acute on chronic Qualified Code(s): I50.43 - Acute on chronic combined systolic (congestive) and diastolic (congestive) heart failure Patient Disposition: Admitted As Inpatient
--- NOTE | 2020-10-31 18:38 | XR_ITS ---
EXAMINATION: XR CHEST CLINICAL INFORMATION: Shortness of breath COMPARISON: #2019 TECHNIQUE: Frontal view of the chest was obtained. FINDINGS: Since the prior study there's been no interval change once again is a left chest wall bipolar pacemaker. Patient status post median sternotomy. Heart size within normal limits. No infiltrates, effusions or lung masses are seen. XR/XR chest 1V IMPRESSION: No acute intrathoracic disease.
--- NOTE | 2020-10-31 19:38 | ECG_ITS ---
Test Reason : WEAKNESS Blood Pressure : / mmHG Vent. Rate : 079 BPM Atrial Rate : 079 BPM P-R Int : 226 ms QRS Dur : 114 ms QT Int : 418 ms P-R-T Axes : 032 103 268 degrees QTc Int : 479 ms A sensed V paced rhythm Rightward axis RSR' or QR pattern in V1 suggests right ventricular conduction delay T wave abnormality, consider inferior ischemia Prolonged QT Abnormal ECG When compared with ECG of 27-OCT-2020 12:22, No significant changes seen Referred By: Jero Vaughn Electronically Signed By:STEVE MASON
[2020-10-31 19:56] LABS: Basophils Percent Auto 0.3 % (0-2); Eosinophils Percent Auto 0.2 % (0-4); Hematocrit 28.8 % (37-47); Hemoglobin 8.4 g/dl (12.0-16.0); Imm Gran Abs Auto 0.09 X10*3/uL (0.00-0.03); Imm Gran Pct Auto 0.6 % (0.0-0.4); Lymphocytes Absolute Auto 0.8 X10*3/uL (1.2-4.9); Lymphocytes Percent Auto 4.9 % (20-40); MANUAL DIFF FLAG SCAN; Mean Corpuscular HGB Conc 29.2 g/dl (31.0-35.0); Mean Corpuscular Hemoglobin 24.1 pg (27.0-33.0); Mean Corpuscular Volume 82.5 fL (80-98); Mean Platelet Volume 10.2 fL (9.4-12.3); Monocytes Absolute Auto 0.6 X10*3/uL (0.1-1.2); Monocytes Percent Auto 3.6 % (2-11); Neutrophils Absolute Auto 14.5 X10*3/uL (2.0-8.3); Neutrophils Percent Auto 90.4 % (45-73); Platelet Count 307 X10*3/uL (160-400); Red Blood Count 3.49 X10*6/uL (4.20-5.50); Red Cell Distribution Width 15.9 % (11.0-16.0); SCAN SMEAR FLAG 1
[2020-10-31 20:03] VITALS: BP 162/90; PULSE 79; RESP 16; TEMP 37.4; O2SAT 3
[2020-10-31 20:04] LABS: INTERNATIONAL NORM RATIO 1.1 (0.9-1.1); Prothrombin Time 12.8 SEC (10.8-13.0)
[2020-10-31 20:13] LABS: Lactic Acid 0.9 mmol/L (0.5-2.0)
[2020-10-31 20:18] LABS: SLIDE REVIEW VERIFIED
[2020-10-31 20:35] LABS: Influenza A PCR NEGATIVE (Negative); Influenza B PCR NEGATIVE (Negative); Resp Syncy Virus RNA Qual PCR NEGATIVE (Negative); SARS COV2 PCR INHOUSE NEGATIVE (Negative)
[2020-10-31 20:37] LABS: B Type Natriuretic Peptide 1230 pg/mL (<100); Troponin-I High Sensitivity 87.6 ng/L (<3.5-17.0)
[2020-10-31 20:43] LABS: Base Excess VBG -2.1 mmol/L; Blood Gas Serial # 5414; HCO3 VBG 24 mmol/L; Oxygen Saturation VBG 65.6 %; PCO2 VBG 48 mmhg; PO2 VBG 40 mmhg; pH VBG 7.32 (7.32-7.43)
[2020-10-31 21:05] LABS: Alanine Aminotransferase 63 U/L (0-31); Albumin Level 2.8 g/dL (3.5-5.0); Alkaline Phosphatase 250 U/L (39-117); Anion Gap 12 (12-20); Aspartate Amino Transferase 95 U/L (5-31); Bilirubin Total 0.2 mg/dL (0.0-1.0); Blood Urea Nitrogen 53 mg/dL (9-16); Calcium 7.3 mg/dL (8.4-10.2); Carbon Dioxide 27 mmol/L (22-29); Chloride 101 mmol/L (96-108); Creatinine Clr Calc Pharmacy 44.3; Estimated Glomerular Filt Rate 33; Glucose Random 187 mg/dL (60-115); Potassium 5.8 mmol/l (3.3-5.1); Sodium 134 mmol/L (135-145)
[2020-10-31] MEDS: Furosemide 40 MG/4 ML VIAL IVPUSH (21:42)
[2020-10-31 22:19] VITALS: BP 190/85; PULSE 81; RESP 16; O2SAT 100
[2020-10-31 22:55] LABS: Troponin-I High Sensitivity 105.1 ng/L (<3.5-17.0)
--- NOTE | 2020-10-31 22:59 | PC.NURSE ---
weiner 16fr placed via verbal order from hospitalist. 1400cc urinary output noted.
[2020-11-01] VITALS (8 sets, daily range): BP systolic 122–175; BP diastolic 62–86; PULSE 79–91; RESP 16–20; TEMP 36.4–37.3; O2SAT 93–100; BMI 32.4
[2020-11-01] MEDS: Sodium Polystyrene Sulfon/Sorb 15 GM/60 ML ORAL.SUSP 30 GM PO (00:25)
[2020-11-01 00:32] LABS: Glucose Urine UA 100 MG/DL (NEG); Leukocyte Esterase Urine NEG (NEG); Nitrite Urine NEG (NEG); Urine Blood TRACE (NEG); Urine Ketones NEG (NEG); Urine Protein 1+ MG/DL (NEG-TRACE)
[2020-11-01 00:46] LABS: Appearance Urine CLEAR; Color Urine COLORLESS
[2020-11-01 01:03] LABS: Amorphous Sediment Urine 1+ /LPF; Granular Casts Urine 0-2 /LPF; Hyaline Casts Urine 0-2 /LPF; Mucus Urine TRACE /LPF; RBC Urine 0-2 /HPF (0); Squamous Epithelial Cell Urine TRACE /LPF
--- NOTE | 2020-11-01 05:00 | PM.IMHP ---
History of Present Illness Date of Service: 10/31/20 Chief Complaint: Shortness of breath This is a 60-year-old female with past medical history of coronary artery disease status post CABG, diabetes, hypertension, gout, depression, COPD who presents to the hospital with complaints of increased dyspnea. Patient reports that her symptoms started 2 weeks ago and have worsened over the last few days. She also feels pale, she has no chest pain, no cough, afebrile, and no chills. She also complains of orthopnea and PND. She also noticed lower extremity edema for the past 2 weeks. She has not had any sick contacts or any recent travel. She has no headache, change in vision, no chest pain, no palpitations, no abdominal pain nausea or vomiting, no diarrhea constipation. No urinary symptoms and no lower extremity edema. On arrival to the ED patient's vitals are significant for 91% O2 on room air, placed on 3 L satting 100%. Other vital significant for a temperature of 99.3?, heart rate of 79, respiratory rate of 16, blood pressure 162/90. Labs are significant for WBC count of 16.0, hemoglobin of 8.4 (last hemoglobin from 10/11/20, 10.5), sodium of 134, potassium 5.8, BUN of 53, creatinine of 1.60 (1.46 from 11), AST of 95, ALT of 63, alk-phos of 250, high sensitivity troponin of 105, BNP of 12 30, albumin of 2.8, negative UA, negative COVID, Chest x-ray shows no acute intrathoracic disease PMHX: Anxiety, arthritis, asthma, CADs/p CABG, Carpal tunnel syndrome, CVA, Depression, Diabetic gastroparesis, Fibromyalgia, Gastritis, GERD, Headaches, HTN, IBS, DM, Kidney disease, Left foot amputation, [place] 2011, Neuropathy, Urinary bladder stimulater, Vertigo PSX: Hysterectomy, appendectomy, gallbladder, knee sx, left foot sx, left toes amputated, Bypass, CABG 2018, Pacemaker Family hx: Dm Social Hx: Lives with [facility], has a CREDIT CHARGE AUTHORIZER that comes to her daily, denies tobacco, alcohol or illicit drugs Review of Systems Review of Systems: Yes all other systems are reviewed and are negative [facility] Medical History Anemia Anxiety Arthritis Carpal tunnel syndrome Coronary artery disease CVA (cerebral vascular accident) Diabetes Fall Gastritis Gastroparesis GERD (gastroesophageal reflux disease) Headache HTN (hypertension) Hypoxia IBS (irritable bowel syndrome) Myocardial infarct Nausea and vomiting Pacemaker Renal failure UTI (urinary tract infection) Surgical History H/O: hysterectomy History of appendectomy Hx of CABG Hx of cholecystectomy Social History Household Members: Family Housing: Apartment Alcohol intake: never Smoking Status: Former smoker Smoked in Last 30 Days: No Use of substances other than those prescribed or required for medical reasons: No Advance Directives: No Advance Directives Information Provided: Yes service: No Current occupational status: disabled [employer] Allergies Allergy/AdvReac Type Severity Reaction Status Date / Time tetracycline [Tetracycline] Allergy Mild HIVES, Verified 10/27/20 11:18 anaphylaxis, anaphylaxis Home Medications Medication Instructions Recorded Confirmed Type lorazepam 0.5 mg PO DAILY PRN 09/14/20 11/01/20 History Breo Ellipta 1 inh INHALATION DAILY 09/16/20 10/31/20 History Lantus U-100 Insulin 10 unit SUBCUT QPM 09/16/20 11/01/20 History Lantus U-100 Insulin 15 unit SUBCUT QAM 09/16/20 11/01/20 History albuterol sulfate 2 puff INHALATION Q6H PRN 09/16/20 10/31/20 History allopurinol 100 mg PO DAILY 09/16/20 10/31/20 History aspirin 81 mg PO DAILY 09/16/20 10/31/20 History atorvastatin 40 mg PO BEDTIME 09/16/20 11/01/20 History gabapentin 600 mg PO TID 09/16/20 11/01/20 History insulin aspart U-100 [Novolog 1 sliding scale dose SUBCUT 09/16/20 11/01/20 History U-100 Insulin aspart] USEASDIRECTD metoprolol succinate [Toprol XL] 50 mg PO DAILY 09/16/20 11/01/20 History omeprazole 20 mg PO DAILY 09/16/20 11/01/20 History venlafaxine 150 mg PO DAILY 09/16/20 11/01/20 History Physical Exam Vital Signs and Narrative: Vital Signs: Last Vital Signs Temp 98.0 F 11/01/20 04:00 Pulse 80 11/01/20 04:00 Resp 16 11/01/20 04:00 BP 142/75 H 11/01/20 04:00 Pulse Ox 98 11/01/20 04:00 Body Mass Index 32.4 Const: General: cooperative and no acute distress Orientation/consciousness: patient oriented x3 Eyes: General: appearance normal, both eyes and all related structures Pupils: Equal, round and reactive pupils present Resp: Effort & Inspection: normal respiratory effort and able to speak in complete sentences Cardio: Rate: regular rate Rhythm: regular rhythm GI: Palpation (GI): Soft to palpation Auscultation: normal bowel sounds Skin: General skin exam: no rashes or lesions noted Neuro: General: patient oriented x3 Cranial nerves: Yes Equal, round and reactive pupils present Cognition (Neuro): normal cognition Extrem: Other: 2+ pedal edema bilaterally General: Yes normal to inspection Results Labs CBC and Chem 7: 10/31/20 19:32 10/31/20 20:22 Labs: Laboratory Results - last 24 hr 10/31/20 10/31/20 10/31/20 19:32 19:32 19:32 MCV 82.5 MCH 24.1 L MCHC 29.2 L RDW 15.9 Plt Count 307 MPV 10.2 Immature Gran % (Auto) 0.6 H Neut % (Auto) 90.4 H Lymph % (Auto) 4.9 L Richardson % (Auto) 3.6 Eos % (Auto) 0.2 Baso % (Auto) 0.3 Lymph # (Auto) 0.8 L Richardson # (Auto) 0.6 Eos # (Auto) 0.0 Baso # (Auto) 0.0 Abs Immat Gran (auto) 0.09 H Absolute Neuts (auto) 14.5 H Absolute Nucleated RBC 0.000 Nucleated RBC % (auto) 0.0 Smear Tech's Comments VERIFIED PT INR VBG pH VBG pCO2 VBG pO2 VBG HCO3 VBG O2 Saturation VBG Base Excess Anion Gap Cancelled Estim Creat Clear Calc Cancelled Estimated GFR Cancelled Random Glucose Cancelled Lactic Acid Calcium Cancelled Total Bilirubin Cancelled AST Cancelled ALT Cancelled Alkaline Phosphatase Cancelled Troponin I High Sens 87.6 H D B-Natriuretic Peptide 1230 H Total Protein Cancelled Albumin Cancelled Urine Color Urine Appearance Urine pH Ur Specific [place] Urine Protein Urine Glucose (UA) Urine Ketones Urine Blood Urine Nitrite Ur Leukocyte Esterase Urine RBC Urine WBC Ur Squamous Epith Cells Amorphous Sediment Urine Bacteria Hyaline Casts Granular Casts Urine Mucus Coronavirus (PCR) Influenza Type A (PCR) Influenza Type B (PCR) RSV RNA Qual (PCR) Blood Type Antibody Screen 10/31/20 10/31/20 10/31/20 19:32 19:32 19:42 MCV MCH MCHC RDW Plt Count MPV Immature Gran % (Auto) Neut % (Auto) Lymph % (Auto) Richardson % (Auto) Eos % (Auto) Baso % (Auto) Lymph # (Auto) Richardson # (Auto) Eos # (Auto) Baso # (Auto) Abs Immat Gran (auto) Absolute Neuts (auto) Absolute Nucleated RBC Nucleated RBC % (auto) Smear Tech's Comments PT 12.8 INR 1.1 VBG pH VBG pCO2 VBG pO2 VBG HCO3 VBG O2 Saturation VBG Base Excess Anion Gap Estim Creat Clear Calc Estimated GFR Random Glucose Lactic Acid 0.9 Calcium Total Bilirubin AST ALT Alkaline Phosphatase Troponin I High Sens B-Natriuretic Peptide Total Protein Albumin Urine Color Urine Appearance Urine pH Ur Specific [place] Urine Protein Urine Glucose (UA) Urine Ketones Urine Blood Urine Nitrite Ur Leukocyte Esterase Urine RBC Urine WBC Ur Squamous Epith Cells Amorphous Sediment Urine Bacteria Hyaline Casts Granular Casts Urine Mucus Coronavirus (PCR) NEGATIVE Influenza Type A (PCR) NEGATIVE Influenza Type B (PCR) NEGATIVE RSV RNA Qual (PCR) NEGATIVE Blood Type Antibody Screen 10/31/20 10/31/20 10/31/20 19:42 20:22 20:22 MCV MCH MCHC RDW Plt Count MPV Immature Gran % (Auto) Neut % (Auto) Lymph % (Auto) Richardson % (Auto) Eos % (Auto) Baso % (Auto) Lymph # (Auto) Richardson # (Auto) Eos # (Auto) Baso # (Auto) Abs Immat Gran (auto) Absolute Neuts (auto) Absolute Nucleated RBC Nucleated RBC % (auto) Smear Tech's Comments PT INR VBG pH 7.32 VBG pCO2 48 VBG pO2 40 VBG HCO3 24 VBG O2 Saturation 65.6 VBG Base Excess -2.1 Anion Gap 12 Estim Creat Clear Calc 44.3 Estimated GFR 33 Random Glucose 187 H D Lactic Acid Calcium 7.3 L D Total Bilirubin 0.2 AST 95 H ALT 63 H Alkaline Phosphatase 250 H D Troponin I High Sens B-Natriuretic Peptide Total Protein 6.0 L Albumin 2.8 L Urine Color Urine Appearance Urine pH Ur Specific [place] Urine Protein Urine Glucose (UA) Urine Ketones Urine Blood Urine Nitrite Ur Leukocyte Esterase Urine RBC Urine WBC Ur Squamous Epith Cells Amorphous Sediment Urine Bacteria Hyaline Casts Granular Casts Urine Mucus Coronavirus (PCR) Influenza Type A (PCR) Influenza Type B (PCR) RSV RNA Qual (PCR) Blood Type A Positive Antibody Screen NEGATIVE 10/31/20 11/01/20 22:20 00:15 MCV MCH MCHC RDW Plt Count MPV Immature Gran % (Auto) Neut % (Auto) Lymph % (Auto) Richardson % (Auto) Eos % (Auto) Baso % (Auto) Lymph # (Auto) Richardson # (Auto) Eos # (Auto) Baso # (Auto) Abs Immat Gran (auto) Absolute Neuts (auto) Absolute Nucleated RBC Nucleated RBC % (auto) Smear Tech's Comments PT INR VBG pH VBG pCO2 VBG pO2 VBG HCO3 VBG O2 Saturation VBG Base Excess Anion Gap Estim Creat Clear Calc Estimated GFR Random Glucose Lactic Acid Calcium Total Bilirubin AST ALT Alkaline Phosphatase Troponin I High Sens 105.1 H B-Natriuretic Peptide Total Protein Albumin Urine Color COLORLESS Urine Appearance CLEAR Urine pH 6.0 Ur Specific [place] 1.020 Urine Protein 1+ H Urine Glucose (UA) 100 H Urine Ketones NEG Urine Blood TRACE Urine Nitrite NEG Ur Leukocyte Esterase NEG Urine RBC 0-2 Urine WBC 1-4 Ur Squamous Epith Cells TRACE Amorphous Sediment 1+ Urine Bacteria NONE Hyaline Casts 0-2 Granular Casts 0-2 Urine Mucus TRACE Coronavirus (PCR) Influenza Type A (PCR) Influenza Type B (PCR) RSV RNA Qual (PCR) Blood Type Antibody Screen Imaging Radiologist's Impressions: Impressions Chest X-Ray 10/31/20 18:38 IMPRESSION: No acute intrathoracic disease. Assessment and Plan (1) CHF exacerbation: Status: Acute (2) Transaminitis: Status: Acute (3) Leukocytosis: Status: Acute (4) Hyperkalemia: Status: Acute (5) Elevated troponin: Status: Acute (6) Coronary artery disease: Status: Acute (7) Diabetes: Status: Acute (8) HTN (hypertension): Status: Acute (9) COPD exacerbation: Status: Acute This is a 60-year-old female with past medical history as mentioned above who presents to the hospital shortness of breath found to have elevated BNP and most likely as CHF exacerbation # dyspnea -most likely secondary to CHF exacerbation, unlikely to be due to pneumonia, or PE - has no chest x-ray evidence of pneumonia, afebrile, has leukocytosis which is most likely reactive, no evidence of COPD exacerbation as patient has no cough or increased sputum production Plan: - treatment of CHF with IV Lasix, low-sodium diet, strict I&O, daily weight, - O2 supplement as required # CHF exacerbation - does not appear to have a history of CHF, not on any diuretics at home - does have elevated high sensitivity troponin although denies any chest pain, Plan: - will start patient on 40 IV Lasix b.i.d., low sodium diet, strict I&O, daily weight - Will obtain an echocardiogram, will obtain Cardiology consult for further recommendation upon discharge - admit to telemetry # elevated troponin - most likely type 2 in the setting of CHF exacerbation - denies any chest pain, no EKG changes, delta change less than 50% Plan: - will monitor for any acute chest pain, will obtain echocardiogram # transaminitis - are elevated with no clear reason, last numbers from 09/14 within normal range. - patient denies abdominal pain - will continue to monitor LFTs if they increase we can obtain an ultrasound of right upper quadrant abdomen # hypertension - stable, will continue amlodipine, # history of COPD - no acute exacerbation, will continue home inhalers # diabetes mellitus - continue home insulin, cover her Replogle sliding will, - diabetic diet DVT prophylaxis: Lovenox
[2020-11-01 07:21] LABS: Ferritin 29 ng/mL (10-250)
[2020-11-01 08:35] LABS: Glucose, Whole Blood 112 mg/dL (60-115)
--- NOTE | 2020-11-01 08:37 | CA_ITS ---
Transthoracic Echocardiogram Patient (Last, First, Middle): Lida Dia M Gender: Female Date of : 1960 Age: 60 Procedure Date: 11/01/2020 Procedure Type: Transthoracic Echocardiogram [place] [facility] [place] Height: 172.72 cm Weight: 96.62 kg BSA: 2.10 m2 Heart Rate: bpm BP: 149 / 80 mmHg Manual Arts Therapy Teacher: ANDREW Referring MD: Dg Sandoval MD Symptoms: CHF exacerbation, Study Quality: Fair ECG Rhythm: Sinus Conclusions: - The left ventricular systolic function is low normal. The visually estimated ejection fraction is between 50-55%. - There is low normal right ventricular systolic function. - There is mild mitral valve regurgitation. - There is mild to moderate tricuspid valve regurgitation. - Mild pulmonary hypertension is present. Findings Left Ventricle Normal left ventricular cavity size. There is mildly increased left ventricular wall thickness. The left ventricular systolic function is low normal. The visually estimated ejection fraction is between 50-55%. The calculated ejection fraction is 53% by biplane method. There is no evidence of regional wall motion abnormalities. E/E prime ratio is >15, consistent with elevated filling pressures. Evidence suggests grade I (mild) diastolic dysfunction. Right Ventricle Normal right ventricular cavity size. There is low normal right ventricular systolic function. Atria The left atrium is mildly dilated. The right atrium is normal in size. Aortic Valve There is a normal trileaflet aortic valve. There is no aortic valve stenosis. There is no aortic valve regurgitation. Mitral Valve The mitral valve appears normal. There is mild mitral valve regurgitation. There is no mitral valve stenosis. Pulmonic Valve The pulmonic valve was not well visualized. Tricuspid Valve Normal tricuspid valve structure. There is mild to moderate tricuspid valve regurgitation. The pulmonary artery systolic pressure is normal. Mild pulmonary hypertension is present. Great Vessels The aortic annulus, sinuses of valsalva, and asc aorta are normal in size. Venous The inferior vena cava is normal in size and collapses less than 50% with inspiration. Pericardium/Pleural There is no evidence of pericardial effusion. Prior Study Comparison Changes noted compared to prior study dated: 05/02/2020. LVEF slightly lower than previously reported. Wall motion abnormalities not well visualized but image quality is also suboptimal. Measurements 2D Linear Measurements IVSd: 1.25 0.6-0.9/0.6-1.0 cm LVIDd: 4.62 3.9-5.3/4.2-5.9 cm LVIDd Index: 2.20 2.4-3.2/2.2-3.1 cm/m2 LVIDs: 3.10 2.0-3.6 cm LVPWd: 1.36 0.7-1.1 cm Ao Root: 2.70 2.1-3.5 cm LA Diam: 3.80 2.7-3.8/3.0-4.0 cm LAIDs Index: 1.81 1.5-2.3 cm/m2 LV Mass: 290.49 67-162/88-224 g LV Mass Index: 138.33 43-95/49-115 g/m2 LVOT Diam: 1.70 3.0+(-)1.3 cm 2D Systolic Function EF 4C: 52.70 >55% EF 2C: 50.80 >55% EF BiP: 53.20 >55% Mitral Valve MV Pk E: 1.25 MV PK A: 1.17 MV Decel Time: 124.00 E/A: 1.10 E'Lateral: 4.93 E'Medial: 6.77 E/E' Med: 18.50 E/E' Lat: 25.40 PHT: 36.00 MVA PHT: 6.11 Decel [place]: 10.04 Aortic Valve AoV Pk Khadar: 1.15 AoV Pk Grad: 5.00 LVOT LVOT Pk Khadar: 1.03 LVOT Mn Khadar: 0.60 LVOT VTI: 0.18 LVOT Pk Grad: 4.00 LVOT Mn Grad: 2.00 LVOT Diam: 1.70 LVOT Area: 2.27 Diastolic Function MV Pk E: 1.25 MV Pk A: 1.17 E/A: 1.10 E'Medial: 6.77 E/E' Med: 18.50 E' Laterial: 4.93 E/E' Lat: 25.40 Tricuspid Valve TR Pk Khadar: 2.81 TR Pk Grad: 32.00 RA Press: 3.00 RVSP: 35.00 Great Vessels Aorta Ao Root-2D: 2.70 2.0-3.7 cm Ao Asc: 2.80 2.1-3.4 cm Updated in Other Vendor System with Status of Final Brian Wilkins MD electronically signed on 11/01/2020 1:12:13 PM with status of Final
[2020-11-01 09:36] LABS: Folate 14.5 ng/mL (> or = 4.0); Vitamin B12 554 pg/mL (200-900)
[2020-11-01] MEDS: Insulin Glargine,Hum.rec.anlog 100 UNIT/ML 10 ML VIAL 15 UNIT SUBCUT (09:39)
[2020-11-01] MEDS: 0.9 % Sodium Chloride Flush 3 ML SYRINGE IVFLUSH ×2 (09:39→15:44)
[2020-11-01] MEDS: Metoprolol Succinate ER 50 MG TAB.ER.24H PO (09:39)
[2020-11-01] MEDS: Omeprazole 20 MG CAPSULE.DR PO (09:39)
[2020-11-01] MEDS: Enoxaparin Sodium 40 MG/0.4 ML SYRINGE SUBCUT (09:40)
[2020-11-01] MEDS: amLODIPine Besylate 2.5 MG TABLET PO (09:40)
[2020-11-01] MEDS: Furosemide 40 MG/4 ML VIAL IVPUSH ×2 (09:40→18:28)
[2020-11-01] MEDS: Venlafaxine HCl ER 150 MG CAP.ER.24H PO (09:40)
[2020-11-01] MEDS: Aspirin Enteric Coated 81 MG TABLET.DR PO (09:40)
[2020-11-01] MEDS: Gabapentin 600 MG TABLET PO ×3 (09:40→21:20)
[2020-11-01] MEDS: allopurinoL 100 MG TABLET PO (09:40)
--- NOTE | 2020-11-01 09:50 | PM.CNCAR ---
History of Present Illness History of Present Illness Date of Service: 11/01/20 Consult reason: congestive heart failure Chief complaint: CHF EXACERBATION Narrative: This is a cardiology consultation regarding congestive heart failure. Patient normally sees Dr. Zelaya. She has a history of coronary disease and coronary artery bypass surgery from 2019. Somewhat of a vague historian. She states that she has been feeling pale for the last few days. She has also been feeling short of breath and having some leg swelling. No clear anginal-type symptoms. She was found to have a hemoglobin of 8.4. She was having some hypoxia as well with O2 sats of 91% on room air and then placed on supplemental oxygen. Low-grade temperature 99.3 degrees F. She was then admitted for further care. She is very sleepy but opens eyes to commands. When I question her as to how her breathing is, she states that it is better than when she came in. Denies any angina at this time. Review of Systems Review of Systems: Yes all other systems are reviewed and are negative Constitutional: Constitutional: Reports as per HPI Cardiovascular: Cardiovascular: Reports as per HPI, Reports no additional cardiovascular complaints, Denies Abdominal Cramping after Meds, Denies Abdominal Distension, Denies cool extremities, Denies chest pain, Denies chest pain at rest, Denies Epigastric Pain, Denies diaphoresis, Denies syncope, Reports pedal edema, Reports leg edema, Denies lightheadedness, Denies radiating jaw, neck or arm pain, Denies palpitations, Reports dyspnea, Reports dyspnea on exertion and Denies orthopnea Respiratory: Respiratory: Reports dyspnea and Reports dyspnea on exertion Neurologic: Denies syncope Endocrine: Endocrine: Denies palpitations [facility] Past Medical History Medical History (Updated 11/01/20 @ 10:07 by Brian Wilkins MD) Anemia Anxiety Arthritis Carpal tunnel syndrome COPD exacerbation Coronary artery disease CVA (cerebral vascular accident) Diabetes Fall Gastritis Gastroparesis GERD (gastroesophageal reflux disease) Headache HTN (hypertension) Hypoxia IBS (irritable bowel syndrome) Myocardial infarct Nausea and vomiting Pacemaker Renal failure UTI (urinary tract infection) Family History Pertinent family history: Mother with diabetes, high cholesterol, hypertension, stroke. Siblings with diabetes. Cousin had breast cancer. Surgical History Surgical History H/O: hysterectomy History of appendectomy Hx of CABG Hx of cholecystectomy Social History Social History Household Members: Other Household Members Other:: granddaughter Housing: Apartment Do you presently have visiting nurse or other home services: Yes Alcohol intake: never Smoking Status: Former smoker Tobacco Type: Cigarette Years Smoked: 20 Smoked in Last 30 Days: No Smoking Quit Date: 21 years ago Patient Interested in Nicotine Replacement: No Patient Given Instructions on How to Stop Smoking: No Second Hand Smoke Exposure: No Use of substances other than those prescribed or required for medical reasons: No Have you been hit, kicked, punched, or otherwise hurt by someone within the past year? If so, by whom?: No Do you feel safe in your current relationship?: No Current Relationship Is there a partner from a previous relationship who is making you feel unsafe now?: No Are you made to feel afraid or neglected: No Advance Directives: No Advance Directives Information Provided: Yes Do you have thoughts of harming others: None Do you have a plan to hurt others: No Plan Recently lost weight without trying: No service: No Current occupational status: disabled Meds Allergies Allergy/AdvReac Type Severity Reaction Status Date / Time tetracycline [Tetracycline] Allergy Mild HIVES, Verified 10/27/20 11:18 anaphylaxis, anaphylaxis Home Medications Medication Instructions Recorded Confirmed Type lorazepam 0.5 mg PO DAILY PRN 09/14/20 11/01/20 History Breo Ellipta 1 inh INHALATION DAILY 09/16/20 10/31/20 History Lantus U-100 Insulin 10 unit SUBCUT QPM 09/16/20 11/01/20 History Lantus U-100 Insulin 15 unit SUBCUT QAM 09/16/20 11/01/20 History albuterol sulfate 2 puff INHALATION Q6H PRN 09/16/20 10/31/20 History allopurinol 100 mg PO DAILY 09/16/20 10/31/20 History aspirin 81 mg PO DAILY 09/16/20 10/31/20 History atorvastatin 40 mg PO BEDTIME 09/16/20 11/01/20 History gabapentin 600 mg PO TID 09/16/20 11/01/20 History insulin aspart U-100 [Novolog 1 sliding scale dose SUBCUT 09/16/20 11/01/20 History U-100 Insulin aspart] USEASDIRECTD metoprolol succinate [Toprol XL] 50 mg PO DAILY 09/16/20 11/01/20 History omeprazole 20 mg PO DAILY 09/16/20 11/01/20 History venlafaxine 150 mg PO DAILY 09/16/20 11/01/20 History Physical Exam Vital Signs: Vital Signs: Last Vital Signs Temp 98.3 F 11/01/20 08:00 Pulse 85 11/01/20 08:00 Resp 19 11/01/20 08:00 BP 149/80 H 11/01/20 08:00 Pulse Ox 97 11/01/20 08:00 Body Mass Index 32.4 Const: General: cooperative, comfortable and no acute distress Orientation/consciousness: patient oriented x3 HENMT: Other: Unremarkable Neck: Neck: Yes normal visual inspection Chest: Chest palpation & inspection: normal inspection of the chest Resp: Auscultation: clear to auscultation bilaterally, no crackles and rhonchi Cardio: Jugular venous distension: no JVD Palpation: normal PMI Heart sounds: S1 normal heart sound present, S2 normal heart sound present, no gallops, no murmurs and no rubs GI: Palpation (GI): Soft to palpation Back/Spine/Pelvis: Other: unremarkable Skin: General skin exam: no rashes or lesions noted Neuro: General: patient oriented x3 Extrem: General: Yes edema (1-2+) Psych: Mental Status: mental status grossly normal Results Labs and Meds Result diagrams: 10/31/20 19:32 10/31/20 20:22 Lab results: Laboratory Tests 09/16/20 10/11/20 10/11/20 05:52 14:55 14:55 Hgb 9.7 L 10.5 L Potassium BUN 19 H Creatinine 1.46 H AST ALT Alkaline Phosphatase Troponin I High Sens B-Natriuretic Peptide Albumin 10/31/20 10/31/20 10/31/20 19:32 19:32 20:22 Hgb 8.4 L Potassium 5.8 H BUN 53 H D Creatinine 1.60 H AST 95 H ALT 63 H Alkaline Phosphatase 250 H D Troponin I High Sens 87.6 H D B-Natriuretic Peptide 1230 H Albumin 2.8 L 10/31/20 22:20 Hgb Potassium BUN Creatinine AST ALT Alkaline Phosphatase Troponin I High Sens 105.1 H B-Natriuretic Peptide Albumin Assessment and Plan (1) Acute on chronic diastolic heart failure: Status: Acute (2) Atherosclerotic cardiovascular disease: Status: Acute (3) Anemia: Qualifiers: Anemia type: unspecified type Qualified Code(s): D64.9 - Anemia, unspecified Status: Inactive (4) NSTEMI (non-ST elevated myocardial infarction): Status: Acute (5) Hyperkalemia: Status: Acute (6) Transaminitis: Status: Acute EKG with sinus rhythm at 79/Min; right ventricular conduction delay; inverted T-waves in inferior and lateral leads. Last echocardiogram with normal LVEF and mild diastolic dysfunction. Cardiac BNP is much higher than prior values. Elevated trosp from heart failure and type 2 NSTEMI. We can treat her for acute on chronic diastolic heart failure. Also not clear if she is having any coexisting infections as the white cell count is elevated. Blood pressure is on the higher side and will need to up titrate blood pressure meds if it stays in this range. May consider holding statins due to abnormal LFTs.
[2020-11-01 10:47] LABS: MANUAL DIFF FLAG NO
[2020-11-01 10:56] LABS: Basophils Percent Auto 0.3 % (0-2); Eosinophils Absolute Auto 0.1 X10*3/uL (0.0-0.4); Eosinophils Percent Auto 1.2 % (0-4); Hematocrit 27.4 % (37-47); Hemoglobin 8.1 g/dl (12.0-16.0); Imm Gran Abs Auto 0.05 X10*3/uL (0.00-0.03); Imm Gran Pct Auto 0.5 % (0.0-0.4); Lymphocytes Absolute Auto 1.5 X10*3/uL (1.2-4.9); Mean Corpuscular HGB Conc 29.6 g/dl (31.0-35.0); Mean Corpuscular Hemoglobin 23.8 pg (27.0-33.0); Mean Corpuscular Volume 80.4 fL (80-98); Mean Platelet Volume 10.1 fL (9.4-12.3); Monocytes Absolute Auto 0.7 X10*3/uL (0.1-1.2); Neutrophils Absolute Auto 7.4 X10*3/uL (2.0-8.3); Platelet Count 307 X10*3/uL (160-400); Red Blood Count 3.41 X10*6/uL (4.20-5.50); White Blood Count 9.7 X10*3/uL (4.8-10.8)
[2020-11-01 11:26] LABS: Alanine Aminotransferase 53 U/L (0-31); Albumin Level 2.7 g/dL (3.5-5.0); Alkaline Phosphatase 223 U/L (39-117); Anion Gap 11 (12-20); Aspartate Amino Transferase 63 U/L (5-31); Bilirubin Direct 0.2 mg/dL (0.0-0.5); Bilirubin Total 0.4 mg/dL (0.0-1.0); Blood Urea Nitrogen 45 mg/dL (9-16); Calcium 7.8 mg/dL (8.4-10.2); Carbon Dioxide 29 mmol/L (22-29); Chloride 104 mmol/L (96-108); Creatinine Clr Calc Pharmacy 53.7; Estimated Glomerular Filt Rate 41; Glucose Random 89 mg/dL (60-115); Potassium 4.7 mmol/l (3.3-5.1); Sodium 139 mmol/L (135-145); Total Protein 6.1 g/dL (6.5-8.0)
--- NOTE | 2020-11-01 11:39 | MHC.CM.PN ---
pt lives c her grandaughter. she also has a new car get ready mechanic for 17.5 hrs /wk. her new car get ready mechanic's name is mariana and is provided throug [facility]. mariana will provide transportation for pt at al. pt tells me she is suppose to be getting more new car get ready mechanic hrs in the near future. pt uses a walker and has home o2 prn through [facility]. pt does not think [facility] has anything to offer her that her new car get ready mechanic cannot do, hence she has denied the need for [facility]. pt also stated she does not want to go to [facility]. al plan is home c new car get ready mechanic via [facility]. cm to cont. to follow.
[2020-11-01 11:45] LABS: Procalcitonin 0.18 ng/mL
[2020-11-01 11:53] LABS: Glucose, Whole Blood 83 mg/dL (60-115)
--- NOTE | 2020-11-01 15:46 | HO.MIDLINE_ITS ---
PICC Line Insertion MIDLINE INSERTION PER REQUEST Indication: NEEDS IV ACCESS Pertinent Labs: REVIEWED WELL VITAL SIGNS; PENDING BLOOD CULTURES THOUGH PATIENT IS IN NEED OF IV ACCESS. [facility] [facility] INFORMATION MANAGEMENT DIRECTOR Jackson SANTIAGO MADE AWARE OF MIDLINE ORDER AND PENDING BLOOD CULTURES. OK TO PROCEED. PT WAS ASSESSED BY THIS RN PRIOR TO MIDLINE INSERTION. MIDLINE TO BE REMOVED IF BLOOD CULTURES ULTIMATELY RETURN POSITIVE; WILL FOLLOW. Using sterile technique including cap and mask, sterile gown, glove and drape, the RIGHT arm was prepped and draped in the usual sterile fashion of full barrier technique with CHG. Using ultrasound guidance, BASILIC vein access was obtained. A SINGLE LUMEN, 20G x 10CM MIDLINE was positioned. The procedure was performed in IR ROOM 7. Ultrasound was used to document vein patency and for needle entry. Vascular Icu Clerk has released the line for use and it is currently dressed with a StatLock, Tegaderm, and CHG disc. Verification has been performed for blood return and line patency. Arm Circumference: 37 CM Equipment: [employer] POWERGLIDE PRO MIDLINE Catheter Type: SINGLE LUMEN, 20G x 10CM, NON-PASV Lot #: [id number]
[2020-11-01] MEDS: 0.9 % Sodium Chloride Flush 10 ML SYRINGE 5 ML IVFLUSH ×2 (15:57→21:24)
[2020-11-01 16:26] LABS: Glucose, Whole Blood 208 mg/dL (60-115)
--- NOTE | 2020-11-01 16:35 | P.PNIM_ITS ---
Subjective Subjective Date of Service: 11/01/20 Interval History: C/o dyspnea + edema. Also wheezing. No cough. No chest pain. Physical Exam Vital Signs: Vital Signs: Last Vital Signs Temp 98.3 F 11/01/20 11:38 Pulse 85 11/01/20 11:38 Resp 18 11/01/20 11:38 BP 136/62 11/01/20 11:38 Pulse Ox 96 11/01/20 11:38 Body Mass Index 32.4 Gen: in no acute distress HEENT: sclera anicteric, moist mucus membranes Neck: supple Lungs: soft end-expiratory wheezing Heart: regular rate and rhythm, no murmurs Abd: soft, non-tender, non-distended Ext: 2+ bilateral leg pitting edema Skin: warm/well-perfused Neuro: alert and oriented x3, no focal findings Psych: appropriate affect Objective Data Current Medications Generic Name Dose Route Start Last Admin Trade Name Freq PRN Reason Stop Dose Admin Acetaminophen 650 mg 11/01/20 08:37 Acetaminophen 325 Mg Tablet PO Q6H PRN Pain, Mild (Pain Scale 1-3) Albuterol Sulfate 2 puff 11/01/20 04:58 Albuterol Sulfate 90 Mcg 8 Gm Inhaler INHALE Q6H PRN Shortness Of Breath Albuterol/Ipratropium 3 ml 11/01/20 05:01 Albuterol/Iprat 2.5/0.5mg 3 Ml Ampul.Neb INHALE RQ4H PRN shortness Allopurinol 100 mg 11/01/20 09:00 11/01/20 09:40 Allopurinol 100 Mg Tablet PO 100 mg DAILY LAW Administration Amlodipine Besylate 2.5 mg 11/01/20 09:00 11/01/20 09:40 Amlodipine Besylate 2.5 Mg Tablet PO 2.5 mg DAILY LAW Administration Protocol Aspirin 81 mg 11/01/20 09:00 11/01/20 09:40 Aspirin Enteric Coated 81 Mg Tablet.Dr PO 81 mg DAILY LAW Administration Docusate Sodium 100 mg 11/01/20 08:37 Docusate Sodium 100 Mg Capsule PO DAILY PRN Constipation Enoxaparin Sodium 40 mg 11/01/20 09:00 11/01/20 09:40 Enoxaparin Sodium 40 Mg/0.4 Ml Syringe SUBCUT 40 mg Q24H LAW Administration Fluticasone/Vilanterol 1 puff 11/01/20 09:00 11/01/20 08:48 Fluticasone/Vilanterol 100/25 Blst.W.Dev INHALE Not Given DAILY [facility] Furosemide 40 mg 11/01/20 09:00 11/01/20 09:40 Furosemide 40 Mg/4 Ml Vial IVPUSH 40 mg BID@0900,1800 [facility] Administration Protocol Gabapentin 600 mg 11/01/20 09:00 11/01/20 15:40 Gabapentin 600 Mg Tablet PO 600 mg TID [facility] Administration Insulin Glargine 10 unit 11/01/20 21:00 Insulin Glargine,Hum.Rec.Anlog 100 Unit/Ml 10 Ml Vial SUBCUT BEDTIME [facility] Insulin Glargine 15 unit 11/01/20 09:00 11/01/20 09:39 Insulin Glargine,Hum.Rec.Anlog 100 Unit/Ml 10 Ml Vial SUBCUT 15 unit DAILY [facility] Administration Insulin Human Lispro 0 unit 11/01/20 07:30 11/01/20 11:51 Insulin Lispro 100 Unit/Ml 3 Ml Vial SUBCUT Not Given QIDACHS [facility] Protocol Lorazepam 0.5 mg 11/01/20 04:58 Lorazepam 0.5 Mg Tablet PO DAILY PRN Anxiety Methylprednisolone Sodium Succinate 40 mg 11/01/20 11:00 11/01/20 11:51 Methylprednisolone Sod Succ/Pf 40 Mg/Ml Vial IVPUSH 40 mg Q12H [facility] Administration Metoprolol Succinate 50 mg 11/01/20 09:00 11/01/20 09:39 Metoprolol Succinate Er 50 Mg Tab.Er.24h PO 50 mg DAILY [facility] Administration Protocol Omeprazole 20 mg 11/01/20 06:30 11/01/20 09:39 Omeprazole 20 Mg Capsule.Dr PO 20 mg DAILY@0630 [facility] Administration Ondansetron HCl 4 mg 11/01/20 08:37 Ondansetron Hcl 4 Mg/2 Ml Vial IVPUSH Q8H PRN Nausea and Vomiting Oxycodone HCl 5 mg 11/01/20 04:58 Oxycodone Hcl Immed Release 5 Mg Tablet PO Q6H PRN pain Sodium Chloride 3 ml 11/01/20 08:37 11/01/20 15:44 0.9 % Sodium Chloride Flush 3 Ml Syringe IVFLUSH 3 ml QSHIFT [facility] Administration Sodium Chloride 5 ml 11/01/20 16:00 11/01/20 15:57 0.9 % Sodium Chloride Flush 10 Ml Syringe IVFLUSH 5 ml TID LAW Administration Venlafaxine HCl 150 mg 11/01/20 09:00 11/01/20 09:40 Venlafaxine Hcl Er 150 Mg Cap.Er.24h PO 150 mg DAILY LAW Administration Labs CBC & Chem 7: 11/01/20 10:37 11/01/20 10:37 Labs: Laboratory Results - last 24 hr 10/31/20 10/31/20 10/31/20 19:32 19:32 19:32 WBC 16.0 H RBC 3.49 L Hgb 8.4 L Hct 28.8 L MCV 82.5 MCH 24.1 L MCHC 29.2 L RDW 15.9 Plt Count 307 MPV 10.2 Immature Gran % (Auto) 0.6 H Neut % (Auto) 90.4 H Lymph % (Auto) 4.9 L [place] % (Auto) 3.6 Eos % (Auto) 0.2 Baso % (Auto) 0.3 Lymph # (Auto) 0.8 L [place] # (Auto) 0.6 Eos # (Auto) 0.0 Baso # (Auto) 0.0 Abs Immat Gran (auto) 0.09 H Absolute Neuts (auto) 14.5 H Absolute Nucleated RBC 0.000 Nucleated RBC % (auto) 0.0 Smear Tech's Comments VERIFIED PT INR VBG pH VBG pCO2 VBG pO2 VBG HCO3 VBG O2 Saturation VBG Base Excess Sodium Cancelled Potassium Cancelled Chloride Cancelled Carbon Dioxide Cancelled Anion Gap Cancelled BUN Cancelled Creatinine Cancelled Estim Creat Clear Calc Cancelled Estimated GFR Cancelled POC Glucose Random Glucose Cancelled Lactic Acid Calcium Cancelled Ferritin Total Bilirubin Cancelled Direct Bilirubin AST Cancelled ALT Cancelled Alkaline Phosphatase Cancelled Troponin I High Sens 87.6 H D B-Natriuretic Peptide 1230 H Total Protein Cancelled Albumin Cancelled Vitamin B12 Folate Procalcitonin Urine Color Urine Appearance Urine pH Ur Specific [place] Urine Protein Urine Glucose (UA) Urine Ketones Urine Blood Urine Nitrite Ur Leukocyte Esterase Urine RBC Urine WBC Ur Squamous Epith Cells Amorphous Sediment Urine Bacteria Hyaline Casts Granular Casts Urine Mucus Coronavirus (PCR) Influenza Type A (PCR) Influenza Type B (PCR) RSV RNA Qual (PCR) Blood Type Antibody Screen 10/31/20 10/31/20 10/31/20 19:32 19:32 19:42 WBC RBC Hgb Hct MCV MCH MCHC RDW Plt Count MPV Immature Gran % (Auto) Neut % (Auto) Lymph % (Auto) [place] % (Auto) Eos % (Auto) Baso % (Auto) Lymph # (Auto) [place] # (Auto) Eos # (Auto) Baso # (Auto) Abs Immat Gran (auto) Absolute Neuts (auto) Absolute Nucleated RBC Nucleated RBC % (auto) Smear Tech's Comments PT 12.8 INR 1.1 VBG pH VBG pCO2 VBG pO2 VBG HCO3 VBG O2 Saturation VBG Base Excess Sodium Potassium Chloride Carbon Dioxide Anion Gap BUN Creatinine Estim Creat Clear Calc Estimated GFR POC Glucose Random Glucose Lactic Acid 0.9 Calcium Ferritin Total Bilirubin Direct Bilirubin AST ALT Alkaline Phosphatase Troponin I High Sens B-Natriuretic Peptide Total Protein Albumin Vitamin B12 Folate Procalcitonin Urine Color Urine Appearance Urine pH Ur Specific [place] Urine Protein Urine Glucose (UA) Urine Ketones Urine Blood Urine Nitrite Ur Leukocyte Esterase Urine RBC Urine WBC Ur Squamous Epith Cells Amorphous Sediment Urine Bacteria Hyaline Casts Granular Casts Urine Mucus Coronavirus (PCR) NEGATIVE Influenza Type A (PCR) NEGATIVE Influenza Type B (PCR) NEGATIVE RSV RNA Qual (PCR) NEGATIVE Blood Type Antibody Screen 10/31/20 10/31/20 10/31/20 19:42 20:22 20:22 WBC RBC Hgb Hct MCV MCH MCHC RDW Plt Count MPV Immature Gran % (Auto) Neut % (Auto) Lymph % (Auto) [place] % (Auto) Eos % (Auto) Baso % (Auto) Lymph # (Auto) [place] # (Auto) Eos # (Auto) Baso # (Auto) Abs Immat Gran (auto) Absolute Neuts (auto) Absolute Nucleated RBC Nucleated RBC % (auto) Smear Tech's Comments PT INR VBG pH 7.32 VBG pCO2 48 VBG pO2 40 VBG HCO3 24 VBG O2 Saturation 65.6 VBG Base Excess -2.1 Sodium 134 L Potassium 5.8 H Chloride 101 Carbon Dioxide 27 Anion Gap 12 BUN 53 H D Creatinine 1.60 H Estim Creat Clear Calc 44.3 Estimated GFR 33 POC Glucose Random Glucose 187 H D Lactic Acid Calcium 7.3 L D Ferritin 29 Total Bilirubin 0.2 Direct Bilirubin AST 95 H ALT 63 H Alkaline Phosphatase 250 H D Troponin I High Sens B-Natriuretic Peptide Total Protein 6.0 L Albumin 2.8 L Vitamin B12 Folate Procalcitonin Urine Color Urine Appearance Urine pH Ur Specific [place] Urine Protein Urine Glucose (UA) Urine Ketones Urine Blood Urine Nitrite Ur Leukocyte Esterase Urine RBC Urine WBC Ur Squamous Epith Cells Amorphous Sediment Urine Bacteria Hyaline Casts Granular Casts Urine Mucus Coronavirus (PCR) Influenza Type A (PCR) Influenza Type B (PCR) RSV RNA Qual (PCR) Blood Type A Positive Antibody Screen NEGATIVE 10/31/20 10/31/20 11/01/20 20:22 22:20 00:15 WBC RBC Hgb Hct MCV MCH MCHC RDW Plt Count MPV Immature Gran % (Auto) Neut % (Auto) Lymph % (Auto) [place] % (Auto) Eos % (Auto) Baso % (Auto) Lymph # (Auto) [place] # (Auto) Eos # (Auto) Baso # (Auto) Abs Immat Gran (auto) Absolute Neuts (auto) Absolute Nucleated RBC Nucleated RBC % (auto) Smear Tech's Comments PT INR VBG pH VBG pCO2 VBG pO2 VBG HCO3 VBG O2 Saturation VBG Base Excess Sodium Potassium Chloride Carbon Dioxide Anion Gap BUN Creatinine Estim Creat Clear Calc Estimated GFR POC Glucose Random Glucose Lactic Acid Calcium Ferritin Total Bilirubin Direct Bilirubin AST ALT Alkaline Phosphatase Troponin I High Sens 105.1 H B-Natriuretic Peptide Total Protein Albumin Vitamin B12 Cancelled Folate Cancelled Procalcitonin Urine Color COLORLESS Urine Appearance CLEAR Urine pH 6.0 Ur Specific [place] 1.020 Urine Protein 1+ H Urine Glucose (UA) 100 H Urine Ketones NEG Urine Blood TRACE Urine Nitrite NEG Ur Leukocyte Esterase NEG Urine RBC 0-2 Urine WBC 1-4 Ur Squamous Epith Cells TRACE Amorphous Sediment 1+ Urine Bacteria NONE Hyaline Casts 0-2 Granular Casts 0-2 Urine Mucus TRACE Coronavirus (PCR) Influenza Type A (PCR) Influenza Type B (PCR) RSV RNA Qual (PCR) Blood Type Antibody Screen 11/01/20 11/01/20 11/01/20 06:32 06:32 08:31 WBC RBC Hgb Hct MCV MCH MCHC RDW Plt Count MPV Immature Gran % (Auto) Neut % (Auto) Lymph % (Auto) [place] % (Auto) Eos % (Auto) Baso % (Auto) Lymph # (Auto) [place] # (Auto) Eos # (Auto) Baso # (Auto) Abs Immat Gran (auto) Absolute Neuts (auto) Absolute Nucleated RBC Nucleated RBC % (auto) Smear Tech's Comments PT INR VBG pH VBG pCO2 VBG pO2 VBG HCO3 VBG O2 Saturation VBG Base Excess Sodium Potassium Chloride Carbon Dioxide Anion Gap BUN Creatinine Estim Creat Clear Calc Estimated GFR POC Glucose 112 Random Glucose Lactic Acid Calcium Ferritin Cancelled Total Bilirubin Direct Bilirubin AST ALT Alkaline Phosphatase Troponin I High Sens B-Natriuretic Peptide Total Protein Albumin Vitamin B12 554 Folate 14.5 Procalcitonin Urine Color Urine Appearance Urine pH Ur Specific [place] Urine Protein Urine Glucose (UA) Urine Ketones Urine Blood Urine Nitrite Ur Leukocyte Esterase Urine RBC Urine WBC Ur Squamous Epith Cells Amorphous Sediment Urine Bacteria Hyaline Casts Granular Casts Urine Mucus Coronavirus (PCR) Influenza Type A (PCR) Influenza Type B (PCR) RSV RNA Qual (PCR) Blood Type Antibody Screen 11/01/20 11/01/20 11/01/20 10:36 10:37 10:37 WBC 9.7 RBC 3.41 L Hgb 8.1 L Hct 27.4 L MCV 80.4 MCH 23.8 L MCHC 29.6 L RDW 16.0 Plt Count 307 MPV 10.1 Immature Gran % (Auto) 0.5 H Neut % (Auto) 76.0 H Lymph % (Auto) 15.0 L [place] % (Auto) 7.0 Eos % (Auto) 1.2 Baso % (Auto) 0.3 Lymph # (Auto) 1.5 [place] # (Auto) 0.7 Eos # (Auto) 0.1 Baso # (Auto) 0.0 Abs Immat Gran (auto) 0.05 H Absolute Neuts (auto) 7.4 Absolute Nucleated RBC 0.000 Nucleated RBC % (auto) 0.0 Smear Tech's Comments PT INR VBG pH VBG pCO2 VBG pO2 VBG HCO3 VBG O2 Saturation VBG Base Excess Sodium 139 Potassium 4.7 Chloride 104 Carbon Dioxide 29 Anion Gap 11 L BUN 45 H Creatinine 1.32 Estim Creat Clear Calc 53.7 Estimated GFR 41 POC Glucose Random Glucose 89 D Lactic Acid Calcium 7.8 L D Ferritin Total Bilirubin 0.4 Direct Bilirubin 0.2 AST 63 H ALT 53 H Alkaline Phosphatase 223 H Troponin I High Sens B-Natriuretic Peptide Total Protein 6.1 L Albumin 2.7 L Vitamin B12 Folate Procalcitonin 0.18 Urine Color Urine Appearance Urine pH Ur Specific [place] Urine Protein Urine Glucose (UA) Urine Ketones Urine Blood Urine Nitrite Ur Leukocyte Esterase Urine RBC Urine WBC Ur Squamous Epith Cells Amorphous Sediment Urine Bacteria Hyaline Casts Granular Casts Urine Mucus Coronavirus (PCR) Influenza Type A (PCR) Influenza Type B (PCR) RSV RNA Qual (PCR) Blood Type Antibody Screen 11/01/20 11/01/20 11:40 16:16 WBC RBC Hgb Hct MCV MCH MCHC RDW Plt Count MPV Immature Gran % (Auto) Neut % (Auto) Lymph % (Auto) [place] % (Auto) Eos % (Auto) Baso % (Auto) Lymph # (Auto) [place] # (Auto) Eos # (Auto) Baso # (Auto) Abs Immat Gran (auto) Absolute Neuts (auto) Absolute Nucleated RBC Nucleated RBC % (auto) Smear Tech's Comments PT INR VBG pH VBG pCO2 VBG pO2 VBG HCO3 VBG O2 Saturation VBG Base Excess Sodium Potassium Chloride Carbon Dioxide Anion Gap BUN Creatinine Estim Creat Clear Calc Estimated GFR POC Glucose 83 208 H Random Glucose Lactic Acid Calcium Ferritin Total Bilirubin Direct Bilirubin AST ALT Alkaline Phosphatase Troponin I High Sens B-Natriuretic Peptide Total Protein Albumin Vitamin B12 Folate Procalcitonin Urine Color Urine Appearance Urine pH Ur Specific [place] Urine Protein Urine Glucose (UA) Urine Ketones Urine Blood Urine Nitrite Ur Leukocyte Esterase Urine RBC Urine WBC Ur Squamous Epith Cells Amorphous Sediment Urine Bacteria Hyaline Casts Granular Casts Urine Mucus Coronavirus (PCR) Influenza Type A (PCR) Influenza Type B (PCR) RSV RNA Qual (PCR) Blood Type Antibody Screen TTE - The left ventricular systolic function is low normal. The visually estimated ejection fraction is between 50-55%. - There is low normal right ventricular systolic function. - There is mild mitral valve regurgitation. - There is mild to moderate tricuspid valve regurgitation. - Mild pulmonary hypertension is present. Assessment and Plan (1) Acute on chronic diastolic heart failure: Status: Acute Assessment and Plan: 60yo F with HFpEF admitted for CHF exacerbation, COPD exacerbation # acute/chronic HFpEF - IV diuresis, follow I/O + BNP + BMP + Mg, Cardiology following - continue metoprolol # acute hypoxic resp failure - wean O2 as tolerated # hs-Tn-I indeterminate - delta <50%, likely due to CHF or type 2 NSTEMI # COPD exacerbation - IV steroids, nebulized bronchodilators, continue ICS/LABA # transaminitis - hold statin, recheck LFTs in am, check HBV/HCV + ferritin # hyperK - resolved s/p SPS # leukocytosis - resolved # ISA/CKD3 - Cr now at baseline # anemia - likely ACKD; iron/B12/FA normal; check FOBT # CAD - continue ASA, metoprolol; hold statin # HTN - continue amlodipine, metoprolol # DM2 - continue Lantus + Humalog, check A1c # gout - continue allopurinol # neuropathy - continue gabapentin # depression - continue venlafaxine, lorazepam # VTE ppx - LMWH
[2020-11-01] MEDS: Insulin Lispro 100 UNIT/ML 3 ML VIAL SUBCUT ×2 (16:40→21:21)
[2020-11-01] MEDS: oxyCODONE HCl Immed Release 5 MG TABLET PO (18:27)
[2020-11-01] MEDS: Acetaminophen 325 MG TABLET 650 MG PO (18:27)
[2020-11-01 20:39] LABS: Glucose, Whole Blood 270 mg/dL (60-115)
[2020-11-01] MEDS: Insulin Glargine,Hum.rec.anlog 100 UNIT/ML 10 ML VIAL 10 UNIT SUBCUT (21:21)
[2020-11-02] VITALS (8 sets, daily range): BP systolic 128–179; BP diastolic 67–102; PULSE 70–94; RESP 18–20; TEMP 36.2–36.8; O2SAT 91–100; BMI 26.2
[2020-11-02] MEDS: 0.9 % Sodium Chloride Flush 3 ML SYRINGE IVFLUSH ×4 (00:43→17:24)
[2020-11-02] MEDS: oxyCODONE HCl Immed Release 5 MG TABLET PO (02:11)
[2020-11-02] MEDS: Omeprazole 20 MG CAPSULE.DR PO (05:30)
[2020-11-02 06:35] LABS: MANUAL DIFF FLAG NO
[2020-11-02 06:54] LABS: Basophils Percent Auto 0.2 % (0-2); Eosinophils Percent Auto 0.4 % (0-4); Hematocrit 26.7 % (37-47); Hemoglobin 7.7 g/dl (12.0-16.0); Imm Gran Abs Auto 0.05 X10*3/uL (0.00-0.03); Imm Gran Pct Auto 0.5 % (0.0-0.4); Lymphocytes Absolute Auto 1.6 X10*3/uL (1.2-4.9); Mean Corpuscular HGB Conc 28.8 g/dl (31.0-35.0); Mean Corpuscular Hemoglobin 23.3 pg (27.0-33.0); Mean Corpuscular Volume 80.7 fL (80-98); Mean Platelet Volume 10.3 fL (9.4-12.3); Monocytes Absolute Auto 0.7 X10*3/uL (0.1-1.2); Monocytes Percent Auto 6.9 % (2-11); Neutrophils Absolute Auto 7.6 X10*3/uL (2.0-8.3); Platelet Count 353 X10*3/uL (160-400); Red Blood Count 3.31 X10*6/uL (4.20-5.50); Red Cell Distribution Width 15.9 % (11.0-16.0); White Blood Count 9.9 X10*3/uL (4.8-10.8)
[2020-11-02 07:12] LABS: Alanine Aminotransferase 49 U/L (0-31); Albumin Level 2.6 g/dL (3.5-5.0); Alkaline Phosphatase 198 U/L (39-117); Aspartate Amino Transferase 49 U/L (5-31); Bilirubin Direct 0.2 mg/dL (0.0-0.5); Bilirubin Total 0.5 mg/dL (0.0-1.0); Total Protein 5.9 g/dL (6.5-8.0)
[2020-11-02 07:18] LABS: Estimated Average Glucose 269 mg/dL
[2020-11-02 07:23] LABS: Anion Gap 13 (12-20); Blood Urea Nitrogen 41 mg/dL (9-16); Calcium 7.6 mg/dL (8.4-10.2); Carbon Dioxide 32 mmol/L (22-29); Chloride 97 mmol/L (96-108); Creatinine Clr Calc Pharmacy 50.5; Estimated Glomerular Filt Rate 43; Glucose Random 162 mg/dL (60-115); Magnesium 1.8 mg/dL (1.6-2.6); Potassium 4.5 mmol/l (3.3-5.1); Sodium 137 mmol/L (135-145)
[2020-11-02 07:26] LABS: B Type Natriuretic Peptide 1471 pg/mL (<100)
[2020-11-02 07:34] LABS: Ferritin 33 ng/mL (10-250)
[2020-11-02] MEDS: Fluticasone/Vilanterol 100/25 BLST.W.DEV 1 PUFF INHALE (07:41)
[2020-11-02 08:15] LABS: Glucose, Whole Blood 138 mg/dL (60-115)
[2020-11-02] MEDS: Aspirin Enteric Coated 81 MG TABLET.DR PO (08:48)
[2020-11-02] MEDS: amLODIPine Besylate 2.5 MG TABLET PO (08:48)
[2020-11-02] MEDS: Gabapentin 600 MG TABLET PO ×3 (08:48→21:14)
[2020-11-02] MEDS: Venlafaxine HCl ER 150 MG CAP.ER.24H PO (08:48)
[2020-11-02] MEDS: Furosemide 40 MG/4 ML VIAL IVPUSH ×2 (08:48→17:24)
[2020-11-02] MEDS: allopurinoL 100 MG TABLET PO (08:48)
[2020-11-02] MEDS: Metoprolol Succinate ER 50 MG TAB.ER.24H PO (08:48)
[2020-11-02] MEDS: Insulin Glargine,Hum.rec.anlog 100 UNIT/ML 10 ML VIAL 15 UNIT SUBCUT (08:49)
[2020-11-02] MEDS: Enoxaparin Sodium 40 MG/0.4 ML SYRINGE SUBCUT (08:49)
[2020-11-02] MEDS: 0.9 % Sodium Chloride Flush 10 ML SYRINGE 5 ML IVFLUSH ×3 (10:02→21:20)
[2020-11-02 10:21] LABS: Lactate Dehydrogenase 290 U/L (122-220)
[2020-11-02 10:32] LABS: Immature Retic Fraction 25.5 % (3.0-15.9); Reticulocyte Percent 2.4 % (0.5-1.8); Reticulocytes Absolute 0.079 X10*6/uL (0.026-0.095)
--- NOTE | 2020-11-02 11:36 | P.PNCA_ITS ---
Subjective Subjective Date of Service: 11/02/20 Interval history: She states that she feels okay. Not actively short of breath. Leg swelling is better. No chest pains. Review of Systems Review of Systems Yes all other systems are reviewed and are negative Cardiovascular: Reports as per HPI, Reports no additional cardiovascular complaints, Denies cool extremities, Denies painful fingertips, Denies chest pain, Denies chest pain at rest, Denies chest pain with activity, Denies Epiga stric Pain, Denies epigastric discomfort, Denies diaphoresis, Denies syncope, Denies rapid heart rate, Denies pedal edema, Denies edema, Denies irregular heart rhythm, Denies leg ulcers, Denies leg edema, Denies lightheadedness, Denies Loss of Consciousness, Denies radiating jaw, neck or arm pain, Denies palpitations, Reports dyspnea, Denies orthopnea, Denies paroxysmal nocturnal dyspnea and Denies slow heart rate Respiratory: Reports dyspnea Denies syncope Endocrine: Denies palpitations Physical Exam Vital Signs: Last Vital Signs Temp 97.2 F 11/02/20 07:44 Pulse 82 11/02/20 07:44 Resp 20 11/02/20 07:44 BP 176/91 H 11/02/20 07:44 Pulse Ox 97 11/02/20 07:44 Body Mass Index 26.2 Const General: cooperative, comfortable and no acute distress Orientation/consciousness: patient oriented x3 HENMT Other: Unremarkable Neck Neck: Yes normal visual inspection Chest Chest palpation & inspection: normal inspection of the chest Resp Auscultation: clear to auscultation bilaterally, no crackles and rhonchi Cardio Jugular venous distension: no JVD Palpation: normal PMI Heart sounds: S1 normal heart sound present, S2 normal heart sound present, no gallops, no murmurs and no rubs GI Palpation (GI): Soft to palpation Back/Spine/Pelvis Other: unremarkable Skin General skin exam: no rashes or lesions noted Neuro General: patient oriented x3 Extrem General: Yes edema (trace) Psych Mental Status: mental status grossly normal Results Labs and Meds Result diagrams: 11/02/20 05:23 11/02/20 05:23 Lab results: Laboratory Results - last 24 hr 11/01/20 11/01/20 11/01/20 10:36 11:40 16:16 WBC RBC Hgb Hct MCV MCH MCHC RDW Plt Count MPV Immature Gran % (Auto) Neut % (Auto) Lymph % (Auto) [place] % (Auto) Eos % (Auto) Baso % (Auto) Lymph # (Auto) [place] # (Auto) Eos # (Auto) Baso # (Auto) Abs Immat Gran (auto) Absolute Neuts (auto) Absolute Nucleated RBC Nucleated RBC % (auto) Absolute Retic Percent Retic Immature Retic Fraction Retic Hgb Equivalent Sodium Potassium Chloride Carbon Dioxide Anion Gap BUN Creatinine Estim Creat Clear Calc Estimated GFR POC Glucose 83 208 H Random Glucose Estimat Average Glucose Hemoglobin A1c % Calcium Magnesium Ferritin Total Bilirubin Direct Bilirubin AST ALT Alkaline Phosphatase Lactate Dehydrogenase B-Natriuretic Peptide Total Protein Albumin Procalcitonin 0.18 11/01/20 11/02/20 11/02/20 20:36 05:23 05:23 WBC 9.9 RBC 3.31 L Hgb 7.7 L Hct 26.7 L MCV 80.7 MCH 23.3 L MCHC 28.8 L RDW 15.9 Plt Count 353 MPV 10.3 Immature Gran % (Auto) 0.5 H Neut % (Auto) 76.0 H Lymph % (Auto) 16.0 L [place] % (Auto) 6.9 Eos % (Auto) 0.4 Baso % (Auto) 0.2 Lymph # (Auto) 1.6 [place] # (Auto) 0.7 Eos # (Auto) 0.0 Baso # (Auto) 0.0 Abs Immat Gran (auto) 0.05 H Absolute Neuts (auto) 7.6 Absolute Nucleated RBC 0.000 Nucleated RBC % (auto) 0.0 Absolute Retic 0.079 Percent Retic 2.4 H Immature Retic Fraction 25.5 H Retic Hgb Equivalent 23.0 L Sodium Potassium Chloride Carbon Dioxide Anion Gap BUN Creatinine Estim Creat Clear Calc Estimated GFR POC Glucose 270 H Random Glucose Estimat Average Glucose 269 Hemoglobin A1c % 11.0 Calcium Magnesium Ferritin Total Bilirubin Direct Bilirubin AST ALT Alkaline Phosphatase Lactate Dehydrogenase B-Natriuretic Peptide Total Protein Albumin Procalcitonin 11/02/20 11/02/20 11/02/20 05:23 05:23 05:23 WBC RBC Hgb Hct MCV MCH MCHC RDW Plt Count MPV Immature Gran % (Auto) Neut % (Auto) Lymph % (Auto) [place] % (Auto) Eos % (Auto) Baso % (Auto) Lymph # (Auto) [place] # (Auto) Eos # (Auto) Baso # (Auto) Abs Immat Gran (auto) Absolute Neuts (auto) Absolute Nucleated RBC Nucleated RBC % (auto) Absolute Retic Percent Retic Immature Retic Fraction Retic Hgb Equivalent Sodium 137 Potassium 4.5 Chloride 97 Carbon Dioxide 32 H Anion Gap 13 BUN 41 H Creatinine 1.27 Estim Creat Clear Calc 50.5 Estimated GFR 43 POC Glucose Random Glucose 162 H D Estimat Average Glucose Hemoglobin A1c % Calcium 7.6 L Magnesium 1.8 Ferritin 33 Total Bilirubin 0.5 Direct Bilirubin 0.2 AST 49 H ALT 49 H Alkaline Phosphatase 198 H Lactate Dehydrogenase 290 H B-Natriuretic Peptide 1471 H Total Protein 5.9 L Albumin 2.6 L Procalcitonin 11/02/20 07:46 WBC RBC Hgb Hct MCV MCH MCHC RDW Plt Count MPV Immature Gran % (Auto) Neut % (Auto) Lymph % (Auto) [place] % (Auto) Eos % (Auto) Baso % (Auto) Lymph # (Auto) [place] # (Auto) Eos # (Auto) Baso # (Auto) Abs Immat Gran (auto) Absolute Neuts (auto) Absolute Nucleated RBC Nucleated RBC % (auto) Absolute Retic Percent Retic Immature Retic Fraction Retic Hgb Equivalent Sodium Potassium Chloride Carbon Dioxide Anion Gap BUN Creatinine Estim Creat Clear Calc Estimated GFR POC Glucose 138 H Random Glucose Estimat Average Glucose Hemoglobin A1c % Calcium Magnesium Ferritin Total Bilirubin Direct Bilirubin AST ALT Alkaline Phosphatase Lactate Dehydrogenase B-Natriuretic Peptide Total Protein Albumin Procalcitonin Progress Note: A&P Assessment and plan (1) Acute on chronic diastolic heart failure: Status: Acute (2) Atherosclerotic cardiovascular disease: Status: Acute (3) Anemia: Status: Inactive (4) NSTEMI (non-ST elevated myocardial infarction): Status: Acute (5) Hyperkalemia: Status: Acute (6) Transaminitis: Status: Acute Assessment and Plan: EKG with sinus rhythm at 79/Min; right ventricular conduction delay; inverted T- waves in inferior and lateral leads. Echocardiogram with LVEF 50-55% and low normal right ventricular function. There was [id number] tricuspid regurgitation mild pulmonary hypertension. Cardiac BNP is much higher than prior values. Elevated trops from heart failure and type 2 NSTEMI. We can treat her for acute on chronic diastolic heart failure. Also not clear if she is having any coexisting infections as the white cell count is elevated. Blood pressure is on the higher side we can go up on the Amlodipine dosing. Fall Risk Details Current Medications: Current Medications Generic Name Dose Route Start Last Admin Trade Name Georgiana PRN Reason Stop Dose Admin Acetaminophen 650 mg 11/01/20 08:37 11/01/20 18:27 Acetaminophen 325 Mg Tablet PO 650 mg Q6H PRN Administration Pain, Mild (Pain Scale 1-3) Albuterol Sulfate 2 puff 11/01/20 04:58 Albuterol Sulfate 90 Mcg 8 Gm Inhaler INHALE Q6H PRN Shortness Of Breath Albuterol/Ipratropium 3 ml 11/01/20 05:01 Albuterol/Iprat 2.5/0.5mg 3 Ml Ampul.Neb INHALE RQ4H PRN shortness Allopurinol 100 mg 11/01/20 09:00 11/02/20 08:48 Allopurinol 100 Mg Tablet PO 100 mg DAILY LAW Administration Amlodipine Besylate 2.5 mg 11/01/20 09:00 11/02/20 08:48 Amlodipine Besylate 2.5 Mg Tablet PO 2.5 mg DAILY LAW Administration Protocol Aspirin 81 mg 11/01/20 09:00 11/02/20 08:48 Aspirin Enteric Coated 81 Mg Tablet.Dr PO 81 mg DAILY LAW Administration Docusate Sodium 100 mg 11/01/20 08:37 Docusate Sodium 100 Mg Capsule PO DAILY PRN Constipation Enoxaparin Sodium 40 mg 11/01/20 09:00 11/02/20 08:49 Enoxaparin Sodium 40 Mg/0.4 Ml Syringe SUBCUT 40 mg Q24H LAW Administration Fluticasone/Vilanterol 1 puff 11/01/20 09:00 11/02/20 07:41 Fluticasone/Vilanterol 100/25 Blst.W.Dev INHALE 1 puff DAILY LAW Administration Furosemide 40 mg 11/01/20 09:00 11/02/20 08:48 Furosemide 40 Mg/4 Ml Vial IVPUSH 40 mg BID@0900,1800 LAW Administration Protocol Gabapentin 600 mg 11/01/20 09:00 11/02/20 08:48 Gabapentin 600 Mg Tablet PO 600 mg TID LAW Administration Insulin Glargine 10 unit 11/01/20 21:00 11/01/20 21:21 Insulin Glargine,Hum.Rec.Anlog 100 Unit/Ml 10 Ml Vial SUBCUT 10 unit BEDTIME LAW Administration Insulin Glargine 15 unit 11/01/20 09:00 11/02/20 08:49 Insulin Glargine,Hum.Rec.Anlog 100 Unit/Ml 10 Ml Vial SUBCUT 15 unit DAILY LAW Administration Insulin Human Lispro 0 unit 11/01/20 07:30 11/02/20 09:57 Insulin Lispro 100 Unit/Ml 3 Ml Vial SUBCUT Not Given QIDACHS [facility] Protocol Lorazepam 0.5 mg 11/01/20 04:58 Lorazepam 0.5 Mg Tablet PO DAILY PRN Anxiety Methylprednisolone Sodium Succinate 40 mg 11/01/20 11:00 11/01/20 22:01 Methylprednisolone Sod Succ/Pf 40 Mg/Ml Vial IVPUSH 40 mg Q12H ALW Administration Metoprolol Succinate 50 mg 11/01/20 09:00 11/02/20 08:48 Metoprolol Succinate Er 50 Mg Tab.Er.24h PO 50 mg DAILY LAW Administration Protocol Omeprazole 20 mg 11/01/20 06:30 11/02/20 05:30 Omeprazole 20 Mg Capsule.Dr PO 20 mg DAILY@0630 LAW Administration Ondansetron HCl 4 mg 11/01/20 08:37 Ondansetron Hcl 4 Mg/2 Ml Vial IVPUSH Q8H PRN Nausea and Vomiting Oxycodone HCl 5 mg 11/01/20 04:58 11/02/20 02:11 Oxycodone Hcl Immed Release 5 Mg Tablet PO 5 mg Q6H PRN Administration pain Sodium Chloride 3 ml 11/01/20 08:37 11/02/20 09:56 0.9 % Sodium Chloride Flush 3 Ml Syringe IVFLUSH 3 ml QSHIFT LAW Administration Sodium Chloride 5 ml 11/01/20 16:00 11/02/20 10:02 0.9 % Sodium Chloride Flush 10 Ml Syringe IVFLUSH 5 ml TID LAW Administration Venlafaxine HCl 150 mg 11/01/20 09:00 11/02/20 08:48 Venlafaxine Hcl Er 150 Mg Cap.Er.24h PO 150 mg DAILY LAW Administration Time Spent With Patient Time: Total time spent is greater than 50% in coordination of care (as documented) at patient's floor/unit and/or counseling patient: Time with patient: 15 - 24 minutes
[2020-11-02 11:51] LABS: Glucose, Whole Blood 252 mg/dL (60-115)
--- NOTE | 2020-11-02 13:20 | HO.PM.IMPN ---
Subjective Subjective Date of Service: 11/02/20 Interval History: Much less short of breath. No wheezing. No chest pain. Negative 7.3L so far this admission. Weight inaccurate. Physical Exam Vital Signs: Vital Signs: Last Vital Signs Temp 97.6 F 11/02/20 12:00 Pulse 94 11/02/20 12:30 Resp 20 11/02/20 12:00 BP 128/67 11/02/20 12:30 Pulse Ox 96 11/02/20 12:30 Body Mass Index 26.2 Gen: in no acute distress HEENT: sclera anicteric, moist mucus membranes Neck: supple Lungs: soft end-expiratory wheezing Heart: regular rate and rhythm, no murmurs Abd: soft, non-tender, non-distended Ext: 2+ bilateral leg pitting edema Skin: warm/well-perfused Neuro: alert and oriented x3, no focal findings Psych: appropriate affect Objective Data Current Medications Generic Name Dose Route Start Last Admin Trade Name Freq PRN Reason Stop Dose Admin Acetaminophen 650 mg 11/01/20 08:37 11/01/20 18:27 Acetaminophen 325 Mg Tablet PO 650 mg Q6H PRN Administration Pain, Mild (Pain Scale 1-3) Albuterol Sulfate 2 puff 11/01/20 04:58 Albuterol Sulfate 90 Mcg 8 Gm Inhaler INHALE Q6H PRN Shortness Of Breath Albuterol/Ipratropium 3 ml 11/01/20 05:01 Albuterol/Iprat 2.5/0.5mg 3 Ml Ampul.Neb INHALE RQ4H PRN shortness Allopurinol 100 mg 11/01/20 09:00 11/02/20 08:48 Allopurinol 100 Mg Tablet PO 100 mg DAILY LAW Administration Amlodipine Besylate 2.5 mg 11/01/20 09:00 11/02/20 08:48 Amlodipine Besylate 2.5 Mg Tablet PO 2.5 mg DAILY LAW Administration Protocol Aspirin 81 mg 11/01/20 09:00 11/02/20 08:48 Aspirin Enteric Coated 81 Mg Tablet.Dr PO 81 mg DAILY LAW Administration Docusate Sodium 100 mg 11/01/20 08:37 Docusate Sodium 100 Mg Capsule PO DAILY PRN Constipation Enoxaparin Sodium 40 mg 11/01/20 09:00 11/02/20 08:49 Enoxaparin Sodium 40 Mg/0.4 Ml Syringe SUBCUT 40 mg Q24H LAW Administration Fluticasone/Vilanterol 1 puff 11/01/20 09:00 11/02/20 07:41 Fluticasone/Vilanterol 100/25 Blst.W.Dev INHALE 1 puff DAILY LAW Administration Furosemide 40 mg 11/01/20 09:00 11/02/20 08:48 Furosemide 40 Mg/4 Ml Vial IVPUSH 40 mg BID@0900,1800 [facility] Administration Protocol Gabapentin 600 mg 11/01/20 09:00 11/02/20 08:48 Gabapentin 600 Mg Tablet PO 600 mg TID LAW Administration Insulin Glargine 10 unit 11/01/20 21:00 11/01/20 21:21 Insulin Glargine,Hum.Rec.Anlog 100 Unit/Ml 10 Ml Vial SUBCUT 10 unit BEDTIME LAW Administration Insulin Glargine 15 unit 11/01/20 09:00 11/02/20 08:49 Insulin Glargine,Hum.Rec.Anlog 100 Unit/Ml 10 Ml Vial SUBCUT 15 unit DAILY LAW Administration Insulin Human Lispro 0 unit 11/01/20 07:30 11/02/20 09:57 Insulin Lispro 100 Unit/Ml 3 Ml Vial SUBCUT Not Given QIDACHS [facility] Protocol Lorazepam 0.5 mg 11/01/20 04:58 Lorazepam 0.5 Mg Tablet PO DAILY PRN Anxiety Methylprednisolone Sodium Succinate 40 mg 11/01/20 11:00 11/01/20 22:01 Methylprednisolone Sod Succ/Pf 40 Mg/Ml Vial IVPUSH 40 mg Q12H LAW Administration Metoprolol Succinate 50 mg 11/01/20 09:00 11/02/20 08:48 Metoprolol Succinate Er 50 Mg Tab.Er.24h PO 50 mg DAILY [facility] Administration Protocol Omeprazole 20 mg 11/01/20 06:30 11/02/20 05:30 Omeprazole 20 Mg Capsule.Dr PO 20 mg DAILY@0630 [facility] Administration Ondansetron HCl 4 mg 11/01/20 08:37 Ondansetron Hcl 4 Mg/2 Ml Vial IVPUSH Q8H PRN Nausea and Vomiting Oxycodone HCl 5 mg 11/01/20 04:58 11/02/20 02:11 Oxycodone Hcl Immed Release 5 Mg Tablet PO 5 mg Q6H PRN Administration pain Sodium Chloride 3 ml 11/01/20 08:37 11/02/20 09:56 0.9 % Sodium Chloride Flush 3 Ml Syringe IVFLUSH 3 ml QSHIFT LAW Administration Sodium Chloride 5 ml 11/01/20 16:00 11/02/20 10:02 0.9 % Sodium Chloride Flush 10 Ml Syringe IVFLUSH 5 ml TID LAW Administration Venlafaxine HCl 150 mg 11/01/20 09:00 11/02/20 08:48 Venlafaxine Hcl Er 150 Mg Cap.Er.24h PO 150 mg DAILY LAW Administration Labs CBC & Chem 7: 11/02/20 05:23 11/02/20 05:23 Labs: Laboratory Results - last 24 hr 11/01/20 11/01/20 11/02/20 16:16 20:36 05:23 WBC RBC Hgb Hct MCV MCH MCHC RDW Plt Count MPV Immature Gran % (Auto) Neut % (Auto) Lymph % (Auto) [place] % (Auto) Eos % (Auto) Baso % (Auto) Lymph # (Auto) [place] # (Auto) Eos # (Auto) Baso # (Auto) Abs Immat Gran (auto) Absolute Neuts (auto) Absolute Nucleated RBC Nucleated RBC % (auto) Absolute Retic Percent Retic Immature Retic Fraction Retic Hgb Equivalent Sodium Potassium Chloride Carbon Dioxide Anion Gap BUN Creatinine Estim Creat Clear Calc Estimated GFR POC Glucose 208 H 270 H Random Glucose Estimat Average Glucose 269 Hemoglobin A1c % 11.0 Calcium Magnesium Ferritin Total Bilirubin Direct Bilirubin AST ALT Alkaline Phosphatase Lactate Dehydrogenase B-Natriuretic Peptide Total Protein Albumin 11/02/20 11/02/20 11/02/20 05:23 05:23 05:23 WBC 9.9 RBC 3.31 L Hgb 7.7 L Hct 26.7 L MCV 80.7 MCH 23.3 L MCHC 28.8 L RDW 15.9 Plt Count 353 MPV 10.3 Immature Gran % (Auto) 0.5 H Neut % (Auto) 76.0 H Lymph % (Auto) 16.0 L [place] % (Auto) 6.9 Eos % (Auto) 0.4 Baso % (Auto) 0.2 Lymph # (Auto) 1.6 [place] # (Auto) 0.7 Eos # (Auto) 0.0 Baso # (Auto) 0.0 Abs Immat Gran (auto) 0.05 H Absolute Neuts (auto) 7.6 Absolute Nucleated RBC 0.000 Nucleated RBC % (auto) 0.0 Absolute Retic 0.079 Percent Retic 2.4 H Immature Retic Fraction 25.5 H Retic Hgb Equivalent 23.0 L Sodium 137 Potassium 4.5 Chloride 97 Carbon Dioxide 32 H Anion Gap 13 BUN 41 H Creatinine 1.27 Estim Creat Clear Calc 50.5 Estimated GFR 43 POC Glucose Random Glucose 162 H D Estimat Average Glucose Hemoglobin A1c % Calcium 7.6 L Magnesium 1.8 Ferritin Total Bilirubin Direct Bilirubin AST ALT Alkaline Phosphatase Lactate Dehydrogenase B-Natriuretic Peptide 1471 H Total Protein Albumin 11/02/20 11/02/20 11/02/20 05:23 07:46 11:20 WBC RBC Hgb Hct MCV MCH MCHC RDW Plt Count MPV Immature Gran % (Auto) Neut % (Auto) Lymph % (Auto) [place] % (Auto) Eos % (Auto) Baso % (Auto) Lymph # (Auto) [place] # (Auto) Eos # (Auto) Baso # (Auto) Abs Immat Gran (auto) Absolute Neuts (auto) Absolute Nucleated RBC Nucleated RBC % (auto) Absolute Retic Percent Retic Immature Retic Fraction Retic Hgb Equivalent Sodium Potassium Chloride Carbon Dioxide Anion Gap BUN Creatinine Estim Creat Clear Calc Estimated GFR POC Glucose 138 H 252 H Random Glucose Estimat Average Glucose Hemoglobin A1c % Calcium Magnesium Ferritin 33 Total Bilirubin 0.5 Direct Bilirubin 0.2 AST 49 H ALT 49 H Alkaline Phosphatase 198 H Lactate Dehydrogenase 290 H B-Natriuretic Peptide Total Protein 5.9 L Albumin 2.6 L TTE 11/01/20 - The left ventricular systolic function is low normal. The visually estimated ejection fraction is between 50-55%. - There is low normal right ventricular systolic function. - There is mild mitral valve regurgitation. - There is mild to moderate tricuspid valve regurgitation. - Mild pulmonary hypertension is present. Microbiology Microbiology Results: Microbiology 10/31/20 19:42 Blood - Venous Blood Culture - Preliminary No growth after 24 hours. 10/31/20 19:42 Blood - Venous Blood Culture - Preliminary No growth after 24 hours. Assessment and Plan (1) Acute on chronic diastolic heart failure: Status: Acute Assessment and Plan: hospital d#3 60yo F with HFpEF admitted for CHF exacerbation, COPD exacerbation # acute/chronic HFpEF - IV diuresis, follow I/O + BNP + BMP + Mg, Cardiology following - continue metoprolol # acute hypoxic resp failure - wean O2 as tolerated # hs-Tn-I indeterminate - delta <50%, likely due to CHF or type 2 NSTEMI # COPD exacerbation - IV steroids, nebulized bronchodilators, continue ICS/LABA # normocytic anemia - B12 + FA + ferritin WNL - check FOBT - LDH + retics elevated; check haptoglobin + CAMILA, consult heme, T+S active # transaminitis - LFTs improved, HBV/HCV pending # hyperK - resolved s/p SPS # leukocytosis - resolved # ISA/CKD3 - Cr now at baseline # CAD - continue ASA, metoprolol; hold statin # HTN - continue amlodipine (increase dose), metoprolol # DM2, uncontrolled with A1c 11 [pt states previously 13+] - continue Lantus + Humalog # gout - continue allopurinol # neuropathy - continue gabapentin # depression - continue venlafaxine, lorazepam # VTE ppx - LMWH # dispo - home with VNA when euvolemic
[2020-11-02] MEDS: Insulin Lispro 100 UNIT/ML 3 ML VIAL SUBCUT ×2 (14:28→21:14)
[2020-11-02] MEDS: Acetaminophen 325 MG TABLET 650 MG PO (14:35)
[2020-11-02 17:14] LABS: Glucose, Whole Blood 127 mg/dL (60-115)
[2020-11-02 21:02] LABS: Glucose, Whole Blood 313 mg/dL (60-115)
[2020-11-02] MEDS: Insulin Glargine,Hum.rec.anlog 100 UNIT/ML 10 ML VIAL 10 UNIT SUBCUT (21:15)
[2020-11-03] VITALS (9 sets, daily range): BP systolic 106–177; BP diastolic 63–87; PULSE 83–113; RESP 18–20; TEMP 36.3–37.2; O2SAT 94–98; BMI 24.8
[2020-11-03] MEDS: Omeprazole 20 MG CAPSULE.DR PO (05:48)
--- NOTE | 2020-11-03 06:15 | PC.NURSE ---
Attempting to collect occult blood stool from patient due to low H&H. Pt reports having bowel movement at admission to hospital (11/01), but none since. Pt reports she did not see any bloody/dark stools at home and that it is normal for her to go 3-4 days between bowel movements.
[2020-11-03] MEDS: Fluticasone/Vilanterol 100/25 BLST.W.DEV 1 PUFF INHALE (07:29)
[2020-11-03 07:35] LABS: Basophils Percent Auto 0.1 % (0-2); Hematocrit 24.1 % (37-47); Hemoglobin 7.2 g/dl (12.0-16.0); Imm Gran Abs Auto 0.04 X10*3/uL (0.00-0.03); Imm Gran Pct Auto 0.4 % (0.0-0.4); Lymphocytes Absolute Auto 1.5 X10*3/uL (1.2-4.9); Lymphocytes Percent Auto 14.4 % (20-40); MANUAL DIFF FLAG NO; Mean Corpuscular HGB Conc 29.9 g/dl (31.0-35.0); Mean Corpuscular Hemoglobin 23.8 pg (27.0-33.0); Mean Corpuscular Volume 79.8 fL (80-98); Mean Platelet Volume 10.1 fL (9.4-12.3); Monocytes Absolute Auto 0.6 X10*3/uL (0.1-1.2); Monocytes Percent Auto 5.9 % (2-11); Neutrophils Absolute Auto 8.1 X10*3/uL (2.0-8.3); Neutrophils Percent Auto 79.2 % (45-73); Platelet Count 334 X10*3/uL (160-400); Red Blood Count 3.02 X10*6/uL (4.20-5.50); Red Cell Distribution Width 15.6 % (11.0-16.0); White Blood Count 10.2 X10*3/uL (4.8-10.8)
[2020-11-03 07:37] LABS: Glucose, Whole Blood 268 mg/dL (60-115)
[2020-11-03 08:08] LABS: Anion Gap 12 (12-20); Blood Urea Nitrogen 42 mg/dL (9-16); Calcium 7.8 mg/dL (8.4-10.2); Carbon Dioxide 34 mmol/L (22-29); Chloride 93 mmol/L (96-108); Creatinine Clr Calc Pharmacy 45.9; Estimated Glomerular Filt Rate 42; Glucose Random 289 mg/dL (60-115); Magnesium 1.8 mg/dL (1.6-2.6); Potassium 4.5 mmol/l (3.3-5.1); Sodium 134 mmol/L (135-145)
[2020-11-03 08:11] LABS: B Type Natriuretic Peptide 1085 pg/mL (<100)
[2020-11-03] MEDS: Gabapentin 600 MG TABLET PO ×3 (08:22→20:22)
[2020-11-03] MEDS: Venlafaxine HCl ER 150 MG CAP.ER.24H PO (08:22)
[2020-11-03] MEDS: allopurinoL 100 MG TABLET PO (08:22)
[2020-11-03] MEDS: Enoxaparin Sodium 40 MG/0.4 ML SYRINGE SUBCUT (08:22)
[2020-11-03] MEDS: Aspirin Enteric Coated 81 MG TABLET.DR PO (08:22)
[2020-11-03] MEDS: amLODIPine Besylate 2.5 MG TABLET 5 MG PO (08:22)
[2020-11-03] MEDS: Metoprolol Succinate ER 50 MG TAB.ER.24H PO (08:22)
[2020-11-03] MEDS: Insulin Glargine,Hum.rec.anlog 100 UNIT/ML 10 ML VIAL 15 UNIT SUBCUT (08:23)
[2020-11-03] MEDS: Furosemide 40 MG/4 ML VIAL IVPUSH ×2 (08:23→16:38)
[2020-11-03] MEDS: Insulin Lispro 100 UNIT/ML 3 ML VIAL SUBCUT ×4 (08:23→20:21)
[2020-11-03] MEDS: 0.9 % Sodium Chloride Flush 3 ML SYRINGE IVFLUSH ×3 (08:39→20:22)
[2020-11-03] MEDS: 0.9 % Sodium Chloride Flush 10 ML SYRINGE 5 ML IVFLUSH ×2 (08:40→16:39)
[2020-11-03] MEDS: amLODIPine Besylate 10 MG TABLET PO (09:13)
--- NOTE | 2020-11-03 09:45 | P.CNHO_ITS ---
Subjective - Subjective Consult date: 11/03/20 Requesting Physician: David. Primary Care Provider: Unknown Physician Medical Summary: DIAGNOSIS: NORMOCHROMIC NORMOCYTIC ANEMIA. HPI - Consult Narrative Reason for consult: Normochromic normocytic anemia. Narrative: Lida Dia is a pleasant 60 year old lady, with past medical history of coronary artery disease status post CABG, diabetes, hypertension, gout, depression, COPD who presents to the hospital with complaints of increased dyspnea. Patient reports that her symptoms started 2 weeks ago and have worsened over the last few days. She also feels pale, she has no chest pain, no cough, afebrile, and no chills. She also complains of orthopnea and PND. She also noticed lower extremity edema for the past 2 weeks. She has not had any sick contacts or any recent travel. She has no headache, change in vision, no chest pain, no palpitations, no abdominal pain nausea or vomiting, no diarrhea constipation. No urinary symptoms and no lower extremity edema. Here her vitals are significant for 91% O2 on room air, placed on 3 L satting 100%. Other vital significant for a temperature of 99.3?, heart rate of 79, respiratory rate of 16, blood pressure 162/90. Labs are significant for: WBC count of 16.0, hemoglobin of 8.4 (last hemoglobin from 10/11/20, 10.5), sodium of 134, potassium 5.8, BUN of 53, creatinine of 1.60 (1.46 from 11), AST of 95, ALT of 63, alk-phos of 250, high sensitivity troponin of 105, BNP of 12 30, albumin of 2.8, negative UA, negative COVID, Chest x-ray shows no acute intrathoracic disease PMHX: Anxiety, arthritis, asthma, CADs/p CABG, Carpal tunnel syndrome, CVA, Depression, Diabetic gastroparesis, Fibromyalgia, Gastritis, GERD, Headaches, HTN, IBS, DM, Kidney disease, S/P Left foot amputation, [place] 2011, Neuropathy, Urinary bladder stimulater, Vertigo PSX: Hysterectomy, appendectomy, gallbladder, knee sx, left foot sx, left toes amputated, Bypass, CABG 2019, Pacemaker Family hx: Dm Social Hx: Lives with [facility], has a [employer] that comes to her daily, denies tobacco, alcohol or illicit drugs Review of Systems - Constitutional Reports body ache(s), Reports fatigue, Reports fever(s), Reports lack of energy, Reports malaise, Reports weakness, Reports weight loss - Eyes Denies blurry vision - ENT Reports system reviewed and no additional complaints, except as documented - Cardiovascular Denies chest pain at rest - Respiratory Denies chest congestion - Gastrointestinal Reports abdominal pain, Reports change in bowel habits, Reports nausea, Denies diarrhea, Denies vomiting - Musculoskeletal Denies back pain - Integumentary/Breasts Skin/Breast: Reports bleeding lesions, Denies change in breast shape - Neurologic Reports system reviewed and no additional complaints, except as documented, Denies syncope - Endocrine Denies cold intolerance - Hematologic/Lymphatic Denies easy bleeding [facility] Medical History: Medical History (Last Updated 11/01/20 @ 10:03 by Brian Wilkins MD) Anemia Anxiety Arthritis Carpal tunnel syndrome COPD exacerbation Coronary artery disease CVA (cerebral vascular accident) Diabetes Fall Gastritis Gastroparesis GERD (gastroesophageal reflux disease) Headache HTN (hypertension) Hypoxia IBS (irritable bowel syndrome) Myocardial infarct Nausea and vomiting Pacemaker Renal failure UTI (urinary tract infection) Surgical History: Surgical History (Last Reviewed 10/31/20 @ 19:37 by Jero Vaughn MD) H/O: hysterectomy History of appendectomy Hx of CABG Hx of cholecystectomy Smoking status: Former smoker Home Medications and Allergies Current Medications: Current Medications Generic Name Dose Route Start Last Admin Trade Name Freq PRN Reason Stop Dose Admin Acetaminophen 650 mg 11/01/20 08:37 11/02/20 14:35 Acetaminophen 325 Mg Tablet PO 650 mg Q6H PRN Administration Pain, Mild (Pain Scale 1-3) Albuterol Sulfate 2 puff 11/01/20 04:58 Albuterol Sulfate 90 Mcg 8 Gm Inhaler INHALE Q6H PRN Shortness Of Breath Albuterol/Ipratropium 3 ml 11/01/20 05:01 Albuterol/Iprat 2.5/0.5mg 3 Ml Ampul.Neb INHALE RQ4H PRN shortness Allopurinol 100 mg 11/01/20 09:00 11/03/20 08:22 Allopurinol 100 Mg Tablet PO 100 mg DAILY LAW Administration Amlodipine Besylate 10 mg 11/03/20 09:00 11/03/20 09:13 Amlodipine Besylate 10 Mg Tablet PO 5 mg DAILY LAW Administration Protocol Aspirin 81 mg 11/01/20 09:00 11/03/20 08:22 Aspirin Enteric Coated 81 Mg Tablet. PO 81 mg DAILY LAW Administration Docusate Sodium 100 mg 11/01/20 08:37 Docusate Sodium 100 Mg Capsule PO DAILY PRN Constipation Enoxaparin Sodium 40 mg 11/01/20 09:00 11/03/20 08:22 Enoxaparin Sodium 40 Mg/0.4 Ml Syringe SUBCUT 40 mg Q24H LAW Administration Fluticasone/Vilanterol 1 puff 11/01/20 09:00 11/03/20 07:29 Fluticasone/Vilanterol 100/25 Blst.W.Dev INHALE 1 puff DAILY LAW Administration Furosemide 40 mg 11/01/20 09:00 11/03/20 08:23 Furosemide 40 Mg/4 Ml Vial IVPUSH 40 mg BID@0900,1800 LAW Administration Protocol Gabapentin 600 mg 11/01/20 09:00 11/03/20 08:22 Gabapentin 600 Mg Tablet PO 600 mg TID LAW Administration Insulin Glargine 10 unit 11/01/20 21:00 11/02/20 21:15 Insulin Glargine,Hum.Rec.Anlog 100 Unit/Ml 10 Ml Vial SUBCUT 10 unit BEDTIME LAW Administration Insulin Glargine 15 unit 11/01/20 09:00 11/03/20 08:23 Insulin Glargine,Hum.Rec.Anlog 100 Unit/Ml 10 Ml Vial SUBCUT 15 unit DAILY LAW Administration Insulin Human Lispro 0 unit 11/01/20 07:30 11/03/20 08:23 Insulin Lispro 100 Unit/Ml 3 Ml Vial SUBCUT 6 unit QIDACHS [facility] Administration Protocol Lorazepam 0.5 mg 11/01/20 04:58 Lorazepam 0.5 Mg Tablet PO DAILY PRN Anxiety Methylprednisolone Sodium Succinate 40 mg 11/02/20 14:00 11/02/20 14:27 Methylprednisolone Sod Succ/Pf 40 Mg/Ml Vial IVPUSH 40 mg Q24H LAW Administration Metoprolol Succinate 50 mg 11/01/20 09:00 11/03/20 08:22 Metoprolol Succinate Er 50 Mg Tab.Er.24h PO 50 mg DAILY LAW Administration Protocol Omeprazole 20 mg 11/01/20 06:30 11/03/20 05:48 Omeprazole 20 Mg Capsule. PO 20 mg DAILY@0630 LAW Administration Ondansetron HCl 4 mg 11/01/20 08:37 Ondansetron Hcl 4 Mg/2 Ml Vial IVPUSH Q8H PRN Nausea and Vomiting Oxycodone HCl 5 mg 11/01/20 04:58 11/02/20 02:11 Oxycodone Hcl Immed Release 5 Mg Tablet PO 5 mg Q6H PRN Administration pain Sodium Chloride 3 ml 11/01/20 08:37 11/03/20 08:39 0.9 % Sodium Chloride Flush 3 Ml Syringe IVFLUSH 3 ml QSHIFT LAW Administration Sodium Chloride 5 ml 11/01/20 16:00 11/03/20 08:40 0.9 % Sodium Chloride Flush 10 Ml Syringe IVFLUSH 5 ml TID LAW Administration Venlafaxine HCl 150 mg 11/01/20 09:00 11/03/20 08:22 Venlafaxine Hcl Er 150 Mg Cap.Er.24h PO 150 mg DAILY LAW Administration Home Medications Medication Instructions Recorded Confirmed Type lorazepam 0.5 mg PO DAILY PRN 09/14/20 11/01/20 History Breo Ellipta 1 inh INHALATION DAILY 09/16/20 10/31/20 History Lantus U-100 Insulin 10 unit SUBCUT QPM 09/16/20 11/01/20 History Lantus U-100 Insulin 15 unit SUBCUT QAM 09/16/20 11/01/20 History albuterol sulfate 2 puff INHALATION Q6H PRN 09/16/20 10/31/20 History allopurinol 100 mg PO DAILY 09/16/20 10/31/20 History aspirin 81 mg PO DAILY 09/16/20 10/31/20 History atorvastatin 40 mg PO BEDTIME 09/16/20 11/01/20 History gabapentin 600 mg PO TID 09/16/20 11/01/20 History insulin aspart U-100 [Novolog 1 sliding scale dose SUBCUT 09/16/20 11/01/20 History U-100 Insulin aspart] USEASDIRECTD metoprolol succinate [Toprol XL] 50 mg PO DAILY 09/16/20 11/01/20 History omeprazole 20 mg PO DAILY 09/16/20 11/01/20 History venlafaxine 150 mg PO DAILY 09/16/20 11/01/20 History Allergies Allergy/AdvReac Type Severity Reaction Status Date / Time tetracycline [Tetracycline] Allergy Mild HIVES, Verified 10/27/20 11:18 anaphylaxis, anaphylaxis Physical Exam Vital signs: Vital Signs Temp 97.8 F 11/03/20 07:41 Pulse 89 11/03/20 07:41 Resp 18 11/03/20 07:41 BP 175/87 H 11/03/20 07:41 Pulse Ox 95 11/03/20 07:41 Intake & Output 11/02/20 11/03/20 11/03/20 18:59 06:59 18:59 Intake Total 120 / 120 Output Total 3100 / 7100 4000 / 7100 300 / 300 Balance -3100 / -6980 -3880 / -6980 -300 / -300 Urine Output (Average ml/kg/hr) 3.30 4.50 0.34 Intake: Intake, Oral Amount 120 / 120 Output: Output, Urine Amount 500 / 500 300 / 300 Output, Urine Amount (Catheter) 2600 / 6600 4000 / 6600 Urethral 2600 / 6600 4000 / 6600 Other: Breakfast % Eaten 100% 100% Lunch % Eaten 100% Urine Color Pale Yellow Weight 74.1 kg Weight 74.1 kg - Constitutional Present: no acute distress - Routine HEENT Exam Head: Present: normal inspection ENT: Present: mucous membranes moist - Routine Neck Exam Present: supple - Routine Respiratory Exam Present: CTAB - Routine Cardiovascular Exam Cardiovascular: Present: RRR, S1, S2 - Routine Rectal Exam Patient deferred: digital exam - Routine Extremities Exam Present: nontender - Routine Skin Exam Present: intact - Routine Neurological Exam Present: alert, oriented X3 - Routine Psychiatric Exam Present: normal affect Hem/Onc Consult Result - Labs CBC & Chem 7: 11/04/20 05:35 11/04/20 05:35 Labs: Short CBC 11/03/20 Range/Units 05:56 WBC 10.2 (4.8-10.8) X10*3/uL Hgb 7.2 L (12.0-16.0) g/dl Hct 24.1 L (37-47) % Plt Count 334 (160-400) X10*3/uL BMP 11/03/20 05:56 Sodium 134 L Potassium 4.5 Chloride 93 L Carbon Dioxide 34 H BUN 42 H Creatinine 1.28 Calcium 7.8 L Assessment and Plan (1) Anemia Status: Acute This is a pleasant 60-year-old lady with extensive past medical history including coronary artery disease, diabetes and chronic kidney disease. She presents with shortness of breath. Acute on chronic diastolic heart failure: With HFpEF admitted for CHF exacerbation, COPD exacerbation In addition she has been noted to be anemic. Hemoglobin on presentation was 8.4, now down to 7.2. Most likely she has ACD. DIFFERENTIAL DIAGNOSIS: 1. ANEMIA OF CHRONIC DISEASE: Related to stage 3 kidney disease. 2. IRON DEFICIENCY ANEMIA: In addition to the above. 3. B12 FOLATE DEFICIENCY: Is also a possibility. 4. HEMOLYTIC ANEMIA: Could be there. 5. MYELO INFILTRATIVE DISORDER: MDS VERSUS MULTIPLE MYELOMA, especially in view of her kidney disease. PLAN: Will proceed with further evaluation. Check iron studies. Check B12 folate levels: Pending. Check a hemolytic screen: Retic 2.4, Hap to 220. Checked SIEP: No monoclonal protein. Check EPO level. Will consider a bone marrow exam if the above workup is non revealing. Can consider Procrit, for ACD related to stage 3 kidney disease. In the meantime, can transfuse, if ok with cardiology. Thank you, CC: Meliton
[2020-11-03 10:21] LABS: Iron 15 mcg/dL (30-160); Lactate Dehydrogenase 236 U/L (122-220); Percent Iron Saturation 5 % (15-50); Total Iron Binding Capacity 329 mcg/dL (228-428); Unsaturated Iron Binding 314 ug/dL
[2020-11-03 10:41] LABS: Ferritin 25 ng/mL (10-250)
[2020-11-03 11:29] LABS: Glucose, Whole Blood 200 mg/dL (60-115)
--- NOTE | 2020-11-03 12:53 | P.PNIM_ITS ---
Subjective Subjective Date of Service: 11/03/20 Interval History: Feels better- dyspnea resolved, edema improved. -13L this admission Worsening anemia- Hb dropped to 7.2. Consents to blood. No chest pain Physical Exam Vital Signs: Vital Signs: Last Vital Signs Temp 98.9 F 11/03/20 12:01 Pulse 111 H 11/03/20 12:01 Resp 18 11/03/20 12:01 BP 113/64 11/03/20 12:01 Pulse Ox 96 11/03/20 12:00 Body Mass Index 24.8 Gen: in no acute distress HEENT: sclera anicteric, moist mucus membranes Neck: supple Lungs: soft end-expiratory wheezing Heart: regular rate and rhythm, no murmurs Abd: soft, non-tender, non-distended Ext: 1+ bilateral leg pitting edema Skin: warm/well-perfused Neuro: alert and oriented x3, no focal findings Psych: appropriate affect Objective Data Current Medications Generic Name Dose Route Start Last Admin Trade Name Freq PRN Reason Stop Dose Admin Acetaminophen 650 mg 11/01/20 08:37 11/02/20 14:35 Acetaminophen 325 Mg Tablet PO 650 mg Q6H PRN Administration Pain, Mild (Pain Scale 1-3) Albuterol Sulfate 2 puff 11/01/20 04:58 Albuterol Sulfate 90 Mcg 8 Gm Inhaler INHALE Q6H PRN Shortness Of Breath Albuterol/Ipratropium 3 ml 11/01/20 05:01 Albuterol/Iprat 2.5/0.5mg 3 Ml Ampul.Neb INHALE RQ4H PRN shortness Allopurinol 100 mg 11/01/20 09:00 11/03/20 08:22 Allopurinol 100 Mg Tablet PO 100 mg DAILY LAW Administration Amlodipine Besylate 10 mg 11/03/20 09:00 11/03/20 09:13 Amlodipine Besylate 10 Mg Tablet PO 5 mg DAILY LAW Administration Protocol Aspirin 81 mg 11/01/20 09:00 11/03/20 08:22 Aspirin Enteric Coated 81 Mg Tablet.Dr PO 81 mg DAILY LAW Administration Docusate Sodium 100 mg 11/01/20 08:37 Docusate Sodium 100 Mg Capsule PO DAILY PRN Constipation Enoxaparin Sodium 40 mg 11/01/20 09:00 11/03/20 08:22 Enoxaparin Sodium 40 Mg/0.4 Ml Syringe SUBCUT 40 mg Q24H LAW Administration Fluticasone/Vilanterol 1 puff 11/01/20 09:00 11/03/20 07:29 Fluticasone/Vilanterol 100/25 Blst.W.Dev INHALE 1 puff DAILY LAW Administration Furosemide 40 mg 11/01/20 09:00 11/03/20 08:23 Furosemide 40 Mg/4 Ml Vial IVPUSH 40 mg BID@0900,1800 LAW Administration Protocol Gabapentin 600 mg 11/01/20 09:00 11/03/20 08:22 Gabapentin 600 Mg Tablet PO 600 mg TID LAW Administration Insulin Glargine 10 unit 11/01/20 21:00 11/02/20 21:15 Insulin Glargine,Hum.Rec.Anlog 100 Unit/Ml 10 Ml Vial SUBCUT 10 unit BEDTIME LAW Administration Insulin Glargine 15 unit 11/01/20 09:00 11/03/20 08:23 Insulin Glargine,Hum.Rec.Anlog 100 Unit/Ml 10 Ml Vial SUBCUT 15 unit DAILY LAW Administration Insulin Human Lispro 0 unit 11/01/20 07:30 11/03/20 11:32 Insulin Lispro 100 Unit/Ml 3 Ml Vial SUBCUT 6 unit QIDACHS [facility] Administration Protocol Lorazepam 0.5 mg 11/01/20 04:58 Lorazepam 0.5 Mg Tablet PO DAILY PRN Anxiety Methylprednisolone Sodium Succinate 40 mg 11/02/20 14:00 11/02/20 14:27 Methylprednisolone Sod Succ/Pf 40 Mg/Ml Vial IVPUSH 40 mg Q24H LAW Administration Metoprolol Succinate 50 mg 11/01/20 09:00 11/03/20 08:22 Metoprolol Succinate Er 50 Mg Tab.Er.24h PO 50 mg DAILY LAW Administration Protocol Omeprazole 20 mg 11/01/20 06:30 11/03/20 05:48 Omeprazole 20 Mg Capsule.Dr PO 20 mg DAILY@0630 LAW Administration Ondansetron HCl 4 mg 11/01/20 08:37 Ondansetron Hcl 4 Mg/2 Ml Vial IVPUSH Q8H PRN Nausea and Vomiting Oxycodone HCl 5 mg 11/01/20 04:58 11/02/20 02:11 Oxycodone Hcl Immed Release 5 Mg Tablet PO 5 mg Q6H PRN Administration pain Sodium Chloride 3 ml 11/01/20 08:37 11/03/20 08:39 0.9 % Sodium Chloride Flush 3 Ml Syringe IVFLUSH 3 ml QSHIFT LAW Administration Sodium Chloride 5 ml 11/01/20 16:00 11/03/20 08:40 0.9 % Sodium Chloride Flush 10 Ml Syringe IVFLUSH 5 ml TID LAW Administration Venlafaxine HCl 150 mg 11/01/20 09:00 11/03/20 08:22 Venlafaxine Hcl Er 150 Mg Cap.Er.24h PO 150 mg DAILY LAW Administration Labs CBC & Chem 7: 11/03/20 05:56 11/03/20 05:56 Labs: Laboratory Results - last 24 hr 10/31/20 11/02/20 11/02/20 19:42 13:58 16:52 WBC RBC Hgb Hct MCV MCH MCHC RDW Plt Count MPV Immature Gran % (Auto) Neut % (Auto) Lymph % (Auto) [place] % (Auto) Eos % (Auto) Baso % (Auto) Lymph # (Auto) [place] # (Auto) Eos # (Auto) Baso # (Auto) Abs Immat Gran (auto) Absolute Neuts (auto) Absolute Nucleated RBC Nucleated RBC % (auto) Sodium Potassium Chloride Carbon Dioxide Anion Gap BUN Creatinine Estim Creat Clear Calc Estimated GFR POC Glucose 127 H Random Glucose Calcium Magnesium Iron TIBC % Saturation Unsat Iron Binding Ferritin Lactate Dehydrogenase B-Natriuretic Peptide Blood Type A Positive Antibody Screen NEGATIVE CAMILA, Polyspecific NEGATIVE Crossmatch See Detail 11/02/20 11/03/20 11/03/20 20:47 05:56 05:56 WBC 10.2 RBC 3.02 L Hgb 7.2 L Hct 24.1 L MCV 79.8 L MCH 23.8 L MCHC 29.9 L RDW 15.6 Plt Count 334 MPV 10.1 Immature Gran % (Auto) 0.4 Neut % (Auto) 79.2 H Lymph % (Auto) 14.4 L [place] % (Auto) 5.9 Eos % (Auto) 0.0 Baso % (Auto) 0.1 Lymph # (Auto) 1.5 [place] # (Auto) 0.6 Eos # (Auto) 0.0 Baso # (Auto) 0.0 Abs Immat Gran (auto) 0.04 H Absolute Neuts (auto) 8.1 Absolute Nucleated RBC 0.000 Nucleated RBC % (auto) 0.0 Sodium 134 L Potassium 4.5 Chloride 93 L Carbon Dioxide 34 H Anion Gap 12 BUN 42 H Creatinine 1.28 Estim Creat Clear Calc 45.9 Estimated GFR 42 POC Glucose 313 H Random Glucose 289 H D Calcium 7.8 L Magnesium 1.8 Iron 15 L TIBC 329 % Saturation 5 L Unsat Iron Binding 314 Ferritin 25 Lactate Dehydrogenase 236 H B-Natriuretic Peptide Blood Type Antibody Screen CAMILA, Polyspecific Crossmatch 11/03/20 11/03/20 11/03/20 05:56 07:20 11:13 WBC RBC Hgb Hct MCV MCH MCHC RDW Plt Count MPV Immature Gran % (Auto) Neut % (Auto) Lymph % (Auto) [place] % (Auto) Eos % (Auto) Baso % (Auto) Lymph # (Auto) [place] # (Auto) Eos # (Auto) Baso # (Auto) Abs Immat Gran (auto) Absolute Neuts (auto) Absolute Nucleated RBC Nucleated RBC % (auto) Sodium Potassium Chloride Carbon Dioxide Anion Gap BUN Creatinine Estim Creat Clear Calc Estimated GFR POC Glucose 268 H 200 H Random Glucose Calcium Magnesium Iron TIBC % Saturation Unsat Iron Binding Ferritin Lactate Dehydrogenase B-Natriuretic Peptide 1085 H Blood Type Antibody Screen CAMILA, Polyspecific Crossmatch Microbiology Microbiology Results: Microbiology 10/31/20 19:42 Blood - Venous Blood Culture - Preliminary No growth after 48 hours. 10/31/20 19:42 Blood - Venous Blood Culture - Preliminary No growth after 48 hours. Assessment and Plan (1) Acute on chronic diastolic heart failure: Status: Acute Assessment and Plan: hospital d#4 60yo F with HFpEF admitted for CHF exacerbation, COPD exacerbation # acute/chronic HFpEF - continue IV diuresis, follow I/O + BNP + BMP + Mg, Cardiology following - continue metoprolol # acute hypoxic resp failure - resolved # hs-Tn-I indeterminate - delta <50%, likely due to CHF or type 2 NSTEMI # COPD exacerbation - IV steroids d#2, nebulized bronchodilators, continue ICS/LABA # normocytic anemia - B12 + FA + ferritin WNL - check FOBT - LDH + retics elevated; CAMILA negative; haptoglobin pending - epo + SIEP pending - will transfuse 1 unit slowly followed by furosemide; recheck CBC in am # transaminitis - LFTs improved, HBV/HCV pending, statin held per Cardiology # hyperK - resolved s/p SPS # leukocytosis - resolved # ISA/CKD3 - Cr now at baseline # CAD - continue ASA, metoprolol; hold statin # HTN - continue amlodipine (increase ddose), metoprolol # DM2, uncontrolled with A1c 11 [pt states previously 13+] - continue Lantus + Humalog # gout - continue allopurinol # neuropathy - continue gabapentin # depression - continue venlafaxine, lorazepam # VTE ppx - LMWH # dispo - home with VNA when euvolemic and Hb stable
[2020-11-03 15:38] LABS: OBS Int Ctl Valid YES; OBS1 POS (NEG)
[2020-11-03 16:59] LABS: Glucose, Whole Blood 167 mg/dL (60-115)
[2020-11-03 20:16] LABS: Glucose, Whole Blood 235 mg/dL (60-115)
[2020-11-03] MEDS: Insulin Glargine,Hum.rec.anlog 100 UNIT/ML 10 ML VIAL 10 UNIT SUBCUT (20:23)
[2020-11-04] VITALS (9 sets, daily range): BP systolic 120–186; BP diastolic 72–94; PULSE 81–90; RESP 18–20; TEMP 36.2–36.9; O2SAT 95–100; BMI 23.1
[2020-11-04 03:33] LABS: HBc Num1 0.09 S/CO (0.00-0.79); HBsAGNum1 0.19 S/CO (0.00-0.99); Hepatitis B Core Antibody Nonreactive (Nonreactive); Hepatitis B Surface Antigen Negative (Negative)
[2020-11-04 03:47] LABS: HBS Num1 0.74 mIU/mL (0-7.99); ~HepC Num1 0.13 S/CO (0.00-0.79); ~Hepatitis B Surface Antibody NONREACTIVE (Nonreactive); ~Hepatitis C Antibody Nonreactive (Nonreactive)
[2020-11-04] MEDS: Omeprazole 20 MG CAPSULE.DR PO (05:30)
[2020-11-04 06:11] LABS: MANUAL DIFF FLAG NO
[2020-11-04 06:18] LABS: Basophils Percent Auto 0.1 % (0-2); Hemoglobin 9.5 g/dl (12.0-16.0); Imm Gran Abs Auto 0.07 X10*3/uL (0.00-0.03); Imm Gran Pct Auto 0.8 % (0.0-0.4); Lymphocytes Percent Auto 10.7 % (20-40); Mean Corpuscular HGB Conc 30.6 g/dl (31.0-35.0); Mean Corpuscular Hemoglobin 24.5 pg (27.0-33.0); Mean Corpuscular Volume 80.1 fL (80-98); Mean Platelet Volume 9.7 fL (9.4-12.3); Monocytes Absolute Auto 0.2 X10*3/uL (0.1-1.2); Monocytes Percent Auto 2.6 % (2-11); NRBC Pct Auto 0.2 /100WBC (0.0-0.2); Neutrophils Absolute Auto 7.6 X10*3/uL (2.0-8.3); Neutrophils Percent Auto 85.8 % (45-73); Platelet Count 353 X10*3/uL (160-400); Red Blood Count 3.87 X10*6/uL (4.20-5.50); Red Cell Distribution Width 15.7 % (11.0-16.0); White Blood Count 8.9 X10*3/uL (4.8-10.8)
[2020-11-04 06:47] LABS: B Type Natriuretic Peptide 912 pg/mL (<100)
[2020-11-04 06:56] LABS: Alanine Aminotransferase 38 U/L (0-31); Alkaline Phosphatase 178 U/L (39-117); Anion Gap 13 (12-20); Aspartate Amino Transferase 27 U/L (5-31); Bilirubin Total 0.4 mg/dL (0.0-1.0); Blood Urea Nitrogen 43 mg/dL (9-16); Calcium 8.3 mg/dL (8.4-10.2); Carbon Dioxide 33 mmol/L (22-29); Chloride 94 mmol/L (96-108); Creatinine Clr Calc Pharmacy 49.8; Estimated Glomerular Filt Rate 46; Glucose Random 325 mg/dL (60-115); Magnesium 1.9 mg/dL (1.6-2.6); Potassium 4.7 mmol/l (3.3-5.1); Sodium 135 mmol/L (135-145); Total Protein 6.8 g/dL (6.5-8.0)
[2020-11-04] MEDS: Fluticasone/Vilanterol 100/25 BLST.W.DEV 1 PUFF INHALE (07:39)
[2020-11-04 07:45] LABS: Glucose, Whole Blood 285 mg/dL (60-115)
[2020-11-04] MEDS: Insulin Glargine,Hum.rec.anlog 100 UNIT/ML 10 ML VIAL 15 UNIT SUBCUT (07:57)
[2020-11-04] MEDS: 0.9 % Sodium Chloride Flush 3 ML SYRINGE IVFLUSH ×3 (07:58→22:52)
[2020-11-04] MEDS: 0.9 % Sodium Chloride Flush 10 ML SYRINGE 5 ML IVFLUSH ×3 (07:58→22:52)
[2020-11-04] MEDS: Enoxaparin Sodium 40 MG/0.4 ML SYRINGE SUBCUT (07:58)
[2020-11-04] MEDS: Insulin Lispro 100 UNIT/ML 3 ML VIAL SUBCUT ×4 (07:58→22:50)
[2020-11-04] MEDS: Furosemide 40 MG/4 ML VIAL IVPUSH (07:59)
[2020-11-04] MEDS: allopurinoL 100 MG TABLET PO (08:00)
[2020-11-04] MEDS: Venlafaxine HCl ER 150 MG CAP.ER.24H PO (08:00)
[2020-11-04] MEDS: Aspirin Enteric Coated 81 MG TABLET.DR PO (08:00)
[2020-11-04] MEDS: amLODIPine Besylate 10 MG TABLET PO (08:00)
[2020-11-04] MEDS: Gabapentin 600 MG TABLET PO ×3 (08:00→22:50)
[2020-11-04] MEDS: Metoprolol Succinate ER 50 MG TAB.ER.24H PO ×2 (08:00→12:08)
--- NOTE | 2020-11-04 10:17 | HO.PM.IMPN ---
Subjective Subjective Date of Service: 11/04/20 Interval History: seen and examined this AM feeling well denies sob or cp reports edema improved ROS General - no fevers or chills Cardiovascular - no chest pain Respiratory - no shortness of breath or cough Abdominal- no abdominal pain, nausea, vomiting, diarrhea Physical Exam Vital Signs: Vital Signs: Last Vital Signs Temp 98.3 F 11/04/20 07:30 Pulse 90 11/04/20 08:00 Resp 20 11/04/20 07:30 BP 186/94 H 11/04/20 08:00 Pulse Ox 98 11/04/20 07:30 Body Mass Index 23.1 Const: Other: General - no acute distress, appears comfortable Cardiovascular - regular rate and rhythm, S1-S2 Lungs - normal respiratory effort, clear to auscultation bilaterally, no wheezing Abdomen - soft, nontender, no rebound or guarding Extremities - no edema bilaterally Neuro - awake and alert, no focal deficits Objective Data Current Medications Generic Name Dose Route Start Last Admin Trade Name Freq PRN Reason Stop Dose Admin Acetaminophen 650 mg 11/01/20 08:37 11/02/20 14:35 Acetaminophen 325 Mg Tablet PO 650 mg Q6H PRN Administration Pain, Mild (Pain Scale 1-3) Albuterol Sulfate 2 puff 11/01/20 04:58 Albuterol Sulfate 90 Mcg 8 Gm Inhaler INHALE Q6H PRN Shortness Of Breath Albuterol/Ipratropium 3 ml 11/01/20 05:01 Albuterol/Iprat 2.5/0.5mg 3 Ml Ampul.Neb INHALE RQ4H PRN shortness Allopurinol 100 mg 11/01/20 09:00 11/04/20 08:00 Allopurinol 100 Mg Tablet PO 100 mg DAILY LAW Administration Amlodipine Besylate 10 mg 11/03/20 09:00 11/04/20 08:00 Amlodipine Besylate 10 Mg Tablet PO 10 mg DAILY LAW Administration Protocol Aspirin 81 mg 11/01/20 09:00 11/04/20 08:00 Aspirin Enteric Coated 81 Mg Tablet.Dr PO 81 mg DAILY LAW Administration Docusate Sodium 100 mg 11/01/20 08:37 Docusate Sodium 100 Mg Capsule PO DAILY PRN Constipation Enoxaparin Sodium 40 mg 11/01/20 09:00 11/04/20 07:58 Enoxaparin Sodium 40 Mg/0.4 Ml Syringe SUBCUT 40 mg Q24H LAW Administration Fluticasone/Vilanterol 1 puff 11/01/20 09:00 11/04/20 07:39 Fluticasone/Vilanterol 100/25 Blst.W.Dev INHALE 1 puff DAILY LAW Administration Furosemide 40 mg 11/04/20 18:00 Furosemide 40 Mg Tablet PO BID@0900,1800 [facility] Protocol Gabapentin 600 mg 11/01/20 09:00 11/04/20 08:00 Gabapentin 600 Mg Tablet PO 600 mg TID LAW Administration Insulin Glargine 10 unit 11/01/20 21:00 11/03/20 20:23 Insulin Glargine,Hum.Rec.Anlog 100 Unit/Ml 10 Ml Vial SUBCUT 10 unit BEDTIME LAW Administration Insulin Glargine 15 unit 11/01/20 09:00 11/04/20 07:57 Insulin Glargine,Hum.Rec.Anlog 100 Unit/Ml 10 Ml Vial SUBCUT 15 unit DAILY LAW Administration Insulin Human Lispro 0 unit 11/01/20 07:30 11/04/20 07:58 Insulin Lispro 100 Unit/Ml 3 Ml Vial SUBCUT 6 unit QIDACHS LAW Administration Protocol Lorazepam 0.5 mg 11/01/20 04:58 Lorazepam 0.5 Mg Tablet PO DAILY PRN Anxiety Methylprednisolone Sodium Succinate 40 mg 11/02/20 14:00 11/03/20 16:39 Methylprednisolone Sod Succ/Pf 40 Mg/Ml Vial IVPUSH 40 mg Q24H LAW Administration Metoprolol Succinate 100 mg 11/05/20 09:00 Metoprolol Succinate Er 50 Mg Tab.Er.24h PO DAILY [facility] Protocol Metoprolol Succinate 50 mg 11/04/20 10:15 Metoprolol Succinate Er 50 Mg Tab.Er.24h PO 11/04/20 10:16 ONCE ONE Protocol Omeprazole 20 mg 11/01/20 06:30 11/04/20 05:30 Omeprazole 20 Mg Capsule.Dr PO 20 mg DAILY@0630 LAW Administration Ondansetron HCl 4 mg 11/01/20 08:37 Ondansetron Hcl 4 Mg/2 Ml Vial IVPUSH Q8H PRN Nausea and Vomiting Oxycodone HCl 5 mg 11/01/20 04:58 11/02/20 02:11 Oxycodone Hcl Immed Release 5 Mg Tablet PO 5 mg Q6H PRN Administration pain Sodium Chloride 3 ml 11/01/20 08:37 11/04/20 07:58 0.9 % Sodium Chloride Flush 3 Ml Syringe IVFLUSH 3 ml QSHIFT LAW Administration Sodium Chloride 5 ml 11/01/20 16:00 11/04/20 07:58 0.9 % Sodium Chloride Flush 10 Ml Syringe IVFLUSH 5 ml TID LAW Administration Venlafaxine HCl 150 mg 11/01/20 09:00 11/04/20 08:00 Venlafaxine Hcl Er 150 Mg Cap.Er.24h PO 150 mg DAILY LAW Administration Labs CBC & Chem 7: 11/04/20 05:35 11/04/20 05:35 Microbiology Microbiology Results: Microbiology 10/31/20 19:42 Blood - Venous Blood Culture - Preliminary No growth after 48 hours. 10/31/20 19:42 Blood - Venous Blood Culture - Preliminary No growth after 48 hours. Assessment and Plan (1) CHF exacerbation: Status: Acute Assessment and Plan: This is a 60-year-old female with a past medical history of diabetes who is admitted for heart failure exacerbation. 1. Acute respiratory failure with hypoxia Due to COPD and CHF exacerbations Now on room air 2. Acute on chronic heart failure with preserved ejection fraction exacerbation Significant diuresis during the hospitalization She changed to p.o. Lasix 40 mg twice daily Cardiology on board 3. Uncontrolled hypertension Norvasc being up titrated to 10, will increase metoprolol to 100 mg 4. COPD exacerbation wheezing resolving, taper IV steroids to PO updrafts 5. Anemia, acute on chronic no evidence of blood loss at this time h/h improved post transfusion likely of chronic disease work up in progress 6. Transaminitis ? Hepatic congestion, improved with diuresis Statin on hold per Cardiology recommendations Hep screen negative 7. ISA on CKD stage 3 improved with diuresis at baseline 8. DM, uncontrolled lantus + sliding scale continue other chronic meds Full Code DVT pptx, lovenox dispo: home, likely tomorrow once hb/HTN stable
[2020-11-04 11:29] LABS: Glucose, Whole Blood 302 mg/dL (60-115)
[2020-11-04 13:07] LABS: IgA 420 mg/dL (70-320); IgG 1216 mg/dL (600-1540); IgM 109 mg/dL (50-300)
[2020-11-04 13:58] LABS: Haptoglobin 220 mg/dL (43-212)
--- NOTE | 2020-11-04 14:48 | MHC.CM.PN ---
per corona gabriel dc tomorrow 11/05 plan is for, pt radha mccauley thru [facility]
[2020-11-04] MEDS: Furosemide 40 MG TABLET PO (16:47)
[2020-11-04 17:26] LABS: Erythropoietin (EPO) 175.5 mIU/mL (2.6-18.5)
[2020-11-04 17:45] LABS: Glucose, Whole Blood 291 mg/dL (60-115)
[2020-11-04 20:26] LABS: Glucose, Whole Blood 269 mg/dL (60-115)
[2020-11-04] MEDS: Insulin Glargine,Hum.rec.anlog 100 UNIT/ML 10 ML VIAL 10 UNIT SUBCUT (22:51)
[2020-11-05 03:12] VITALS: BP 119/78; PULSE 79; RESP 18; TEMP 36.8; O2SAT 93
[2020-11-05 06:00] VITALS: BMI 23.3
[2020-11-05] MEDS: Omeprazole 20 MG CAPSULE.DR PO (06:37)
[2020-11-05 07:07] VITALS: BP 141/80; PULSE 82; RESP 20; TEMP 36.8; O2SAT 98
[2020-11-05] MEDS: Fluticasone/Vilanterol 100/25 BLST.W.DEV 1 PUFF INHALE (07:15)
[2020-11-05 07:25] LABS: Glucose, Whole Blood 195 mg/dL (60-115)
[2020-11-05] MEDS: 0.9 % Sodium Chloride Flush 10 ML SYRINGE 5 ML IVFLUSH (08:08)
[2020-11-05] MEDS: Insulin Lispro 100 UNIT/ML 3 ML VIAL SUBCUT ×2 (08:08→12:04)
[2020-11-05] MEDS: Enoxaparin Sodium 40 MG/0.4 ML SYRINGE SUBCUT (08:09)
[2020-11-05] MEDS: Insulin Glargine,Hum.rec.anlog 100 UNIT/ML 10 ML VIAL 15 UNIT SUBCUT (08:09)
[2020-11-05] MEDS: 0.9 % Sodium Chloride Flush 3 ML SYRINGE IVFLUSH (08:09)
[2020-11-05] MEDS: Venlafaxine HCl ER 150 MG CAP.ER.24H PO (08:10)
[2020-11-05] MEDS: allopurinoL 100 MG TABLET PO (08:10)
[2020-11-05] MEDS: Aspirin Enteric Coated 81 MG TABLET.DR PO (08:10)
[2020-11-05] MEDS: predniSONE 20 MG TABLET 40 MG PO (08:10)
[2020-11-05] MEDS: Gabapentin 600 MG TABLET PO (08:10)
[2020-11-05] MEDS: Furosemide 40 MG TABLET PO (08:10)
[2020-11-05 08:11] VITALS: BP 141/80; PULSE 82
[2020-11-05] MEDS: amLODIPine Besylate 10 MG TABLET PO (08:11)
[2020-11-05] MEDS: Metoprolol Succinate ER 50 MG TAB.ER.24H 100 MG PO (08:11)
[2020-11-05 11:37] LABS: Glucose, Whole Blood 256 mg/dL (60-115)
[2020-11-05 11:46] VITALS: BP 139/69; PULSE 85; RESP 20; TEMP 36.8; O2SAT 94
--- NOTE | 2020-11-05 11:53 | P.DS_ITS ---
DS: Providers Provider Date of admission: 10/31/20 23:56 Primary care physician: Unknown Physician Consults: 11/01/20 08:37 Consult to Cardiology Routine Consulting Provider: Brian Wilkins Reason for consultation: chf, elevated trop Has provider been notified: No 11/02/20 13:33 Consult to Hematology / Oncology Routine Consulting Provider: [facility] [place] Reason for consultation: normocytic anemia DS: Diagnosis Discharge Diagnosis (1) Acute on chronic diastolic heart failure: Status: Acute (2) COPD exacerbation: Status: Acute (3) Anemia: Status: Acute (4) Transaminitis: Status: Acute (5) Diabetes: Status: Acute (6) ISA (acute kidney injury): Status: Acute DS: Medications Discharge Medications Home Medications: Home Medications Medication Instructions Recorded Confirmed lorazepam 0.5 mg PO DAILY PRN 09/14/20 11/01/20 Breo Ellipta 1 inh INHALATION DAILY 09/16/20 10/31/20 Lantus U-100 Insulin 10 unit SUBCUT QPM 09/16/20 11/01/20 Lantus U-100 Insulin 15 unit SUBCUT QAM 09/16/20 11/01/20 albuterol sulfate 2 puff INHALATION Q6H PRN 09/16/20 10/31/20 allopurinol 100 mg PO DAILY 09/16/20 10/31/20 aspirin 81 mg PO DAILY 09/16/20 10/31/20 atorvastatin 40 mg PO BEDTIME 09/16/20 11/01/20 gabapentin 600 mg PO TID 09/16/20 11/01/20 insulin aspart U-100 [Novolog 1 sliding scale dose SUBCUT 09/16/20 11/01/20 U-100 Insulin aspart] USEASDIRECTD metoprolol succinate [Toprol XL] 50 mg PO DAILY 09/16/20 11/01/20 omeprazole 20 mg PO DAILY 09/16/20 11/01/20 venlafaxine 150 mg PO DAILY 09/16/20 11/01/20 Previous Rx's Medication Instructions Recorded oxycodone 5 mg PO Q6H PRN #14 tab 10/27/20 amlodipine 10 mg PO DAILY #30 tab 11/05/20 furosemide [Lasix] 40 mg PO QAM #30 tab 11/05/20 DS: Summary Hospital Course Hospital Course: With respiratory failure with hypoxia which was felt to be secondary to COPD and CHF exacerbations. She was treated with bronchodilators and systemic steroids for her COPD exacerbation and has completed course of steroids while in the hospital. For her CHF she was started on IV Lasix and underwent a 2D echo which showed low normal left ventricular ejection fraction. She was diuresed nearly 15 L in the hospital and will be transitioned to oral Lasix. Her hospital course was further complicated by acute anemia, without evidence of blood loss. She was transfused 1 unit and H&H remained stable post transfusion. She will have repeat CBC checked in about a week from discharge and can follow up with Hematology as needed. Lastly, she was also noted to have mild transaminitis which improved with diuresis. Initially her statins were held but will be resumed at the time of discharge and a repeat liver profile has been ordered for 1 week from discharge. Time Spent with Patient Time attestation: Total time spent providing and/or coordinating discharge services: Physical Exam Vital Signs: Vital Signs: Last Vital Signs Temp 98.3 F 11/05/20 11:46 Pulse 85 11/05/20 11:46 Resp 20 11/05/20 11:46 BP 139/69 11/05/20 11:46 Pulse Ox 94 11/05/20 11:46 Body Mass Index 23.3 Const: Other: General - no acute distress, appears comfortable Cardiovascular - regular rate and rhythm, S1-S2 Lungs - normal respiratory effort, clear to auscultation bilaterally, no wheezing Abdomen - soft, nontender, no rebound or guarding Extremities - no edema bilaterally Neuro - awake and alert, no focal deficits DS: Data Data Completed and Pending Labs on day of discharge: Laboratory Last Values WBC 8.9 X10*3/uL (4.8-10.8) 11/04/20 05:35 RBC 3.87 X10*6/uL (4.20-5.50) L D 11/04/20 05:35 Hgb 9.5 g/dl (12.0-16.0) L D 11/04/20 05:35 Hct 31.0 % (37-47) L D 11/04/20 05:35 MCV 80.1 fL (80-98) 11/04/20 05:35 MCH 24.5 pg (27.0-33.0) L 11/04/20 05:35 MCHC 30.6 g/dl (31.0-35.0) L 11/04/20 05:35 RDW 15.7 % (11.0-16.0) 11/04/20 05:35 Plt Count 353 X10*3/uL (160-400) 11/04/20 05:35 MPV 9.7 fL (9.4-12.3) 11/04/20 05:35 Immature Gran % (Auto) 0.8 % (0.0-0.4) H 11/04/20 05:35 Neut % (Auto) 85.8 % (45-73) H 11/04/20 05:35 Lymph % (Auto) 10.7 % (20-40) L 11/04/20 05:35 Hughes % (Auto) 2.6 % (2-11) 11/04/20 05:35 Eos % (Auto) 0.0 % (0-4) 11/04/20 05:35 Baso % (Auto) 0.1 % (0-2) 11/04/20 05:35 Lymph # (Auto) 1.0 X10*3/uL (1.2-4.9) L 11/04/20 05:35 Hughes # (Auto) 0.2 X10*3/uL (0.1-1.2) 11/04/20 05:35 Eos # (Auto) 0.0 X10*3/uL (0.0-0.4) 11/04/20 05:35 Baso # (Auto) 0.0 X10*3/uL (0.0-0.2) 11/04/20 05:35 Abs Immat Gran (auto) 0.07 X10*3/uL (0.00-0.03) H 11/04/20 05:35 Absolute Neuts (auto) 7.6 X10*3/uL (2.0-8.3) 11/04/20 05:35 Absolute Nucleated RBC 0.020 X10*3/uL (0.0-0.012) H 11/04/20 05:35 Nucleated RBC % (auto) 0.2 /100WBC (0.0-0.2) 11/04/20 05:35 Smear Tech's Comments VERIFIED 10/31/20 19:32 Absolute Retic 0.079 X10*6/uL (0.026-0.095) 11/02/20 05:23 Percent Retic 2.4 % (0.5-1.8) H 11/02/20 05:23 Immature Retic Fraction 25.5 % (3.0-15.9) H 11/02/20 05:23 Retic Hgb Equivalent 23.0 pg (30.0-35.0) L 11/02/20 05:23 Haptoglobin 220 mg/dL (43-212) H 11/02/20 05:23 PT 12.8 SEC (10.8-13.0) 10/31/20 19:32 INR 1.1 (0.9-1.1) 10/31/20 19:32 VBG pH 7.32 (7.32-7.43) 10/31/20 20:22 VBG pCO2 48 mmhg 10/31/20 20:22 VBG pO2 40 mmhg 10/31/20 20:22 VBG HCO3 24 mmol/L 10/31/20 20:22 VBG O2 Saturation 65.6 % 10/31/20 20:22 VBG Base Excess -2.1 mmol/L 10/31/20 20:22 Sodium 135 mmol/L (135-145) 11/04/20 05:35 Potassium 4.7 mmol/l (3.3-5.1) 11/04/20 05:35 Chloride 94 mmol/L (96-108) L 11/04/20 05:35 Carbon Dioxide 33 mmol/L (22-29) H 11/04/20 05:35 Anion Gap 13 (-) 11/04/20 05:35 BUN 43 mg/dL (9-16) H 11/04/20 05:35 Creatinine 1.18 mg/dL (0.5-1.4) 11/04/20 05:35 Estim Creat Clear Calc 49.8 11/04/20 05:35 Estimated GFR 46 11/04/20 05:35 POC Glucose 256 mg/dL (60-115) H 11/05/20 11:08 Random Glucose 325 mg/dL (60-115) H 11/04/20 05:35 Estimat Average Glucose 269 mg/dL 11/02/20 05:23 Hemoglobin A1c % 11.0 % 11/02/20 05:23 Lactic Acid 0.9 mmol/L (0.5-2.0) 10/31/20 19:42 Calcium 8.3 mg/dL (8.4-10.2) L D 11/04/20 05:35 Magnesium 1.9 mg/dL (1.6-2.6) 11/04/20 05:35 Iron 15 mcg/dL (30-160) L 11/03/20 05:56 TIBC 329 mcg/dL (228-428) 11/03/20 05:56 % Saturation 5 % (15-50) L 11/03/20 05:56 Unsat Iron Binding 314 ug/dL 11/03/20 05:56 Erythropoietin 175.5 mIU/mL (2.6-18.5) H 11/03/20 05:56 Ferritin 25 ng/mL (10-250) 11/03/20 05:56 Total Bilirubin 0.4 mg/dL (0.0-1.0) 11/04/20 05:35 Direct Bilirubin 0.2 mg/dL (0.0-0.5) 11/02/20 05:23 AST 27 U/L (5-31) D 11/04/20 05:35 ALT 38 U/L (0-31) H 11/04/20 05:35 Alkaline Phosphatase 178 U/L (39-117) H 11/04/20 05:35 Lactate Dehydrogenase 236 U/L (122-220) H 11/03/20 05:56 Troponin I High Sens 105.1 ng/L (<3.5-17.0) H 10/31/20 22:20 B-Natriuretic Peptide 912 pg/mL (<100) H 11/04/20 05:35 Total Protein 6.8 g/dL (6.5-8.0) 11/04/20 05:35 Albumin 3.0 g/dL (3.5-5.0) L 11/04/20 05:35 Vitamin B12 554 pg/mL (200-900) 11/01/20 06:32 Folate 14.5 ng/mL (> or = 4.0) 11/01/20 06:32 Procalcitonin 0.18 ng/mL 11/01/20 10:36 Urine Color COLORLESS 11/01/20 00:15 Urine Appearance CLEAR 11/01/20 00:15 Urine pH 6.0 (5.0-8.0) 11/01/20 00:15 Ur Specific [place] 1.020 (1.005-1.025) 11/01/20 00:15 Urine Protein 1+ MG/DL (NEG-TRACE) H 11/01/20 00:15 Urine Glucose (UA) 100 MG/DL (NEG) H 11/01/20 00:15 Urine Ketones NEG MG/DL (NEG) 11/01/20 00:15 Urine Blood TRACE (NEG) 11/01/20 00:15 Urine Nitrite NEG (NEG) 11/01/20 00:15 Ur Leukocyte Esterase NEG (NEG) 11/01/20 00:15 Urine RBC 0-2 /HPF (0) 11/01/20 00:15 Urine WBC 1-4 /HPF (0-4) 11/01/20 00:15 Ur Squamous Epith Cells TRACE /LPF 11/01/20 00:15 Amorphous Sediment 1+ /LPF 11/01/20 00:15 Urine Bacteria NONE /LPF 11/01/20 00:15 Hyaline Casts 0-2 /LPF 11/01/20 00:15 Granular Casts 0-2 /LPF 11/01/20 00:15 Urine Mucus TRACE /LPF 11/01/20 00:15 Stool Occult Blood POS (NEG) 11/03/20 13:45 IgG Total 1216 mg/dL (600-1540) 11/03/20 05:56 IgA Total 420 mg/dL (70-320) H 11/03/20 05:56 IgM 109 mg/dL (50-300) 11/03/20 05:56 EVARISTO Interpretation SEE NOTE 11/03/20 05:56 Coronavirus (PCR) NEGATIVE (Negative) 10/31/20 19:32 Hep Bs Antigen Negative (Negative) 11/02/20 05:23 Hep Bs Antibody NONREACTIVE (Nonreactive) 11/02/20 05:23 Hep B Core Total Ab Nonreactive (Nonreactive) 11/02/20 05:23 Hepatitis C Ab (EIA) Nonreactive (Nonreactive) 11/02/20 05:23 Influenza Type A (PCR) NEGATIVE (Negative) 10/31/20 19:32 Influenza Type B (PCR) NEGATIVE (Negative) 12/10/20 19:32 RSV RNA Qual (PCR) NEGATIVE (Negative) 10/31/20 19:32 Blood Type A Positive 10/31/20 19:42 Antibody Screen NEGATIVE 10/31/20 19:42 CAMILA, Polyspecific NEGATIVE 11/02/20 13:58 Crossmatch See Detail 10/31/20 19:42 Preliminary micro results at discharge 10/31/20 19:42 Blood Culture - Preliminary Blood - Venous No growth after 48 hours. 10/31/20 19:42 Blood Culture - Preliminary Blood - Venous No growth after 48 hours. Discharge Plan Discharge Patient Disposition: Home Health Service Referrals: [facility] [Outside] Physician,Unknown [Primary Care Provider] - Discharge Medications: New furosemide [Lasix] 40 mg tablet 40 mg PO QAM Qty: 30 RF: 0 amlodipine 10 mg Tablet 10 mg PO DAILY Qty: 30 RF: 0 Continued lorazepam 0.5 mg Tablet 0.5 mg PO DAILY PRN (Reason: Anxiety) RF: 0 atorvastatin 40 mg Tablet 40 mg PO BEDTIME RF: 0 gabapentin 600 mg Tablet 600 mg PO TID RF: 0 Lantus U-100 Insulin 100 unit/mL Solution 10 unit SUBCUT QPM RF: 0 Lantus U-100 Insulin 100 unit/mL Solution 15 unit SUBCUT QAM RF: 0 metoprolol succinate [Toprol XL] 50 mg Tablet Extended Release 24 Hr 50 mg PO DAILY RF: 0 allopurinol 100 mg Tablet 100 mg PO DAILY RF: 0 insulin aspart U-100 [Novolog U-100 Insulin aspart] 100 unit/mL Solution 1 sliding scale dose SUBCUT USEASDIRECTD RF: 0 omeprazole 20 mg Capsule,Delayed Release(Dr/Ec) 20 mg PO DAILY RF: 0 albuterol sulfate 90 mcg/actuation Hfa Aerosol Inhaler 2 puff INHALATION Q6H PRN (Reason: Shortness Of Breath) RF: 0 venlafaxine 150 mg Tablet Extended Release 24hr 150 mg PO DAILY RF: 0 Breo Ellipta 100-25 mcg/dose Blister With Device 1 inh INHALATION DAILY RF: 0 aspirin 81 mg Tablet,Delayed Release (Dr/Ec) 81 mg PO DAILY RF: 0 oxycodone 5 mg tablet 5 mg PO Q6H PRN (Reason: pain) Qty: 14 RF: 0 Discontinued amlodipine 2.5 mg tablet 2.5 mg PO DAILY Qty: 90 RF: 1 Discharge Orders: Discharge Order (Routine); Ordered 11/05/20 Ordered By: Dick Coelho Diet: advance to usual diet Activity on Discharge: As tolerated Other Ambulatory Orders: Complete Blood Count no Diff (Routine) Timeframe: 1 Week Facility: [facility] - Location: Laboratory Ordered By: Dick Coelho Comprehensive Met. Panel (Routine) Timeframe: 1 Week Facility: [facility] - Location: Laboratory Ordered By: Dick Coelho Visit Report Forms: Patient Portal Discharge page Care Plan Goals: To stay healthy and out of the hospital. Health Concerns: CHF Anemia COPD Uncontrolled BP Plan of Treatment: CHF - take lasix Anemia - check blood counts in 1 week COPD - completed treatment Uncontrolled BP -- increase Norvasc to 10mg daily
--- NOTE | 2020-11-05 13:39 | HO.MIDLINE ---
PICC Line Insertion REMOVAL OF MIDLINE DATEl 11/05/20 REASON REMOVED; PER REQUEST/ORDER INSERTED LENGTH; 10 CM REMOVED LENGTH 10 CM A DRESSING WAS PLACED OVER THE SITE UPON REMOVAL NO EDEMA OR BLEEDING AT SITE. REPORTED BY: Suleman ERWINRN
== END 2020-11-05 16:37 | disposition home health service (06) | DRG 280 ==
LOC: HO.ED 22:03 → HO.IMC 11-01 08:01
PROVIDERS: Family Medicine; Internal Medicine Medical Oncology; Admitting Provider Internal Medicine; Emergency Provider Internal Medicine; Visit Provider Family Medicine
DX: I13.0 Hypertensive heart and chronic kidney disease with heart failure and stage 1 through stage 4 chronic kidney disease, or unspecified chronic kidney disease (principal); I50.43 Acute on chronic combined systolic (congestive) and diastolic (congestive) heart failure; I21.A1 Myocardial infarction type 2; J44.1 Chronic obstructive pulmonary disease with (acute) exacerbation; N17.9 Acute kidney failure, unspecified; Z20.828 Contact with and (suspected) exposure to other viral communicable diseases; Z79.4 Long term (current) use of insulin; I25.10 Atherosclerotic heart disease of native coronary artery without angina pectoris; Z95.1 Presence of aortocoronary bypass graft; E11.22 Type 2 diabetes mellitus with diabetic chronic kidney disease; R74.01 Elevation of levels of liver transaminase levels; D63.1 Anemia in chronic kidney disease; M10.9 Gout, unspecified; N18.30 Chronic kidney disease, stage 3 unspecified; E87.5 Hyperkalemia; E11.42 Type 2 diabetes mellitus with diabetic polyneuropathy; Z87.891 Personal history of nicotine dependence; Z79.82 Long term (current) use of aspirin; Z79.891 Long term (current) use of opiate analgesic; Z79.899 Other long term (current) drug therapy
CPT/HCPCS: 0241U; 36410; 36415; 71045; 80048; 80053; 80076; 81001; 82272; 82607; 82668; 82728; 82746; 82784; 82803; 82947; 83010; 83036; 83540; 83605; 83615; 83735; 83880; 84145; 84484; 85025; 85045; 85610; 86334; 86704; 86706; 86803; 86850; 86880; 86900; 86901; 86920; 86923; 87040; 87340; 93005; 93306; 97162; 99284; J1650; J1940; J2920; P9016

== ENCOUNTER → 2020-11-13 13:22 | Outpatient (BNVA) | payer OTHER, SELFPAY | PROVIDERS: PCP Internal Medicine; Referring Provider Internal Medicine; Visit Provider Internal Medicine | DX: Z13.89 Encounter for screening for other disorder (principal) | CPT/HCPCS: Q3014 ==

== ENCOUNTER 2020-11-20 13:07 | Outpatient (REF) | payer OTHER, SELFPAY ==
--- NOTE | 2020-11-20 13:53 | XR_ITS ---
EXAMINATION: XR SACRUM AND COCCYX CLINICAL INFORMATION: Coccyx contusion. COMPARISON: None TECHNIQUE: 2 views of the sacrum and 2 views of the coccyx were obtained. FINDINGS: Normal sacrococcygeal curvature is seen. There is no acute fracture. A right-sided stimulation lead is seen at the level of S3-S4. Mild degenerative disc disease is seen at L5-S1. The soft tissues are unremarkable. XR/XR sacrum coccyx min 2V IMPRESSION: 1. No acute fracture. 2. L5-S1 mild degenerative disc disease.
[2020-11-20 14:37] LABS: Estimated Average Glucose 203 mg/dL; Hemoglobin A1c % 8.7 %
[2020-11-20 15:11] LABS: Alanine Aminotransferase 25 U/L (0-31); Alkaline Phosphatase 137 U/L (39-117); Anion Gap 13 (12-20); Aspartate Amino Transferase 28 U/L (5-31); Bilirubin Total 0.3 mg/dL (0.0-1.0); Blood Urea Nitrogen 27 mg/dL (9-16); Calcium 7.9 mg/dL (8.4-10.2); Carbon Dioxide 23 mmol/L (22-29); Chloride 105 mmol/L (96-108); Cholesterol 171 mg/dL; Estimated Glomerular Filt Rate 45; Glucose Random 61 mg/dL (60-115); HDL Cholesterol 37 mg/dL; LDL Cholesterol Calculated 98 mg/dl; Potassium 4.3 mmol/l (3.3-5.1); Sodium 137 mmol/L (135-145); Total Protein 6.8 g/dL (6.5-8.0); Triglycerides 182 mg/dL
[2020-11-20 15:33] LABS: Free T4 (Free Thyroxine) 0.82 ng/dL (0.71-1.85); Thyroid Stimulating Hormone 2.12 uIU/mL (0.32-4.0)
[2020-11-21 06:58] LABS: LDL Cholesterol Direct 90 mg/dL (<100)
== END 2020-11-20 13:08 | disposition home or self-care (01) ==
LOC: HO.XRAY 13:07
PROVIDERS: Absent Provider Internal Medicine; PCP Nurse Practitioner Family; Visit Provider Nurse Practitioner Family
DX: S30.0XXA Contusion of lower back and pelvis, initial encounter (principal); E11.65 Type 2 diabetes mellitus with hyperglycemia; Z79.4 Long term (current) use of insulin
CPT/HCPCS: 72220; 80053; 80061; 83036; 83721; 84439; 84443

== ENCOUNTER 2020-11-29 10:39 | Outpatient (REF) | payer OTHER, SELFPAY ==
[2020-11-29 13:01] LABS: Anion Gap 13 (12-20); Blood Urea Nitrogen 38 mg/dL (9-16); Calcium 8.2 mg/dL (8.4-10.2); Carbon Dioxide 28 mmol/L (22-29); Chloride 101 mmol/L (96-108); Estimated Glomerular Filt Rate 37; Glucose Random 191 mg/dL (60-115); Potassium 5.7 mmol/l (3.3-5.1); Sodium 136 mmol/L (135-145)
[2020-11-29 13:06] LABS: B Type Natriuretic Peptide 856 pg/mL (<100)
== END 2020-11-29 10:40 | disposition home or self-care (01) ==
LOC: HO.LAB 10:39
PROVIDERS: PCP Nurse Practitioner Family; Visit Provider Internal Medicine Cardiovascular Disease
DX: I25.10 Atherosclerotic heart disease of native coronary artery without angina pectoris (principal); I11.0 Hypertensive heart disease with heart failure; I50.32 Chronic diastolic (congestive) heart failure; Z45.018 Encounter for adjustment and management of other part of cardiac pacemaker
CPT/HCPCS: 36415; 80048; 83880; 99212

== ENCOUNTER → 2020-12-12 10:22 | Outpatient (BNVA) | payer OTHER, SELFPAY | PROVIDERS: PCP Nurse Practitioner Family; Visit Provider Dietitian, Registered ==

== ENCOUNTER 2020-12-22 10:49 | Inpatient (IN) | payer OTHER, SELFPAY ==
[2020-12-22 11:04] VITALS: BP 120/58; BP 121/79; PULSE 73; RESP 20; TEMP 36.9; O2SAT 96; O2SAT 97; BMI 31.1
--- NOTE | 2020-12-22 11:37 | CT_ITS ---
EXAMINATION: CT HEAD AND CT CERVICAL SPINE CLINICAL INFORMATION: Status post fall and pelvic abscesses 1:00 AM head injury. COMPARISON: None TECHNIQUE: 5 mm thin axial and reformatted 2 mm thin sagittal and coronal images of brain were obtained. Subsequently axial 3 mm thin and reformatted 2 mm thin images of cervical spine were obtained. DLP 1151 FINDINGS: BRAIN: Bone windows reveal no calvarial abnormality. There is no scalp soft tissue abnormality. There is no acute intra-axial, extra-axial bleed, masses or midline shift. There is no acute infarction in evolution. The lateral ventricles are symmetrical in size and configuration but enlarged. There is mild periventricular hypodensity in both cerebral hemispheres without mass effect. Bone windows reveal no calvarial abnormality. No scalp soft tissue abnormality seen. Bilateral paranasal sinuses and mastoid air cells are well-aerated. CERVICAL SPINE: There is maintained cervical lordosis. The vertebral heights, alignment and disc heights are normal. The craniovertebral junction and the C1-C2 alignment is normal. No visible acute fracture, dislocation or subluxation seen. There is mild right C2-C3, C3-C4 facet joint arthropathy and hypertrophy. The prevertebral and paravertebral soft tissues are normal. Mild increase interstitial markings are seen in both lung apices. No consolidation seen. CT/CT cervical spine wo con IMPRESSION: No acute intracranial process seen. Age-related mild cerebral atrophy. There is no acute fracture or dislocation. There are degenerative facet joint arthropathy changes.
--- NOTE | 2020-12-22 11:37 | ECG_ITS ---
Test Reason : FALL Blood Pressure : / mmHG Vent. Rate : 072 BPM Atrial Rate : 072 BPM P-R Int : 206 ms QRS Dur : 116 ms QT Int : 462 ms P-R-T Axes : 061 095 206 degrees QTc Int : 505 ms Normal sinus rhythm Incomplete right bundle branch block Possible Right ventricular hypertrophy ST & T wave abnormality, consider inferolateral ischemia Prolonged QT Abnormal ECG When compared with ECG of 31-OCT-2020 20:00, T wave changes consider inferolateral ischemia Referred By: Lyric Conley Electronically Signed By:Efren Diaz
--- NOTE | 2020-12-22 11:38 | XR_ITS ---
EXAMINATION: CHEST. AP PELVIS AND LEFT HIP. LEFT KNEE AND LEFT ANKLE. CLINICAL INFORMATION: Status post fall. Unable to get up since 1:00 AM. COMPARISON: Chest 10/31/2020 TECHNIQUE: Chest 2 views. AP pelvis and left hip 3 views. Left knee 4 views. Left ankle 3 views. FINDINGS: Chest: The lungs are well-expanded and clear of acute process. Heart size and pulmonary vascularity is normal. There are dual pacer electrodes in right atrium and right ventricle. There are median sternotomy sutures from previous intervention. No gross bony abnormality seen. AP PELVIS AND LEFT HIP: There is normal symmetry of the SI joints and bilateral hip joints no visible fracture or bony abnormality seen. There is short and right sacral electrode in the presacral space. AP and frog-leg views reveal no visible fracture involving the left hip. There is no dislocation. The soft tissues are normal. LEFT KNEE: There is loss of tricompartment joint space with mild medial compartment periarticular spurring. No visible acute fracture or loose body seen. There is likely subchondral cyst medial femoral condyle. There is mild suprapatellar joint effusion and enthesophyte along the anterior distal femur. LEFT ANKLE: The ankle mortise and subtalar joints are normal. There is no visible acute fracture, dislocation or subluxation seen. There is small calcaneal heel and retrocalcaneal enthesophytes are seen. 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 There is extensive vascular calcification present. XR/XR ankle LT min 3V IMPRESSION: Small calcaneal heel and calcaneus enthesophyte. No fracture or dislocation seen. The on mid foot amputation. Degenerative changes in the tricompartment with small suprapatellar joint effusion. No loose body or acute fracture seen. There is no visible acute fracture, dislocation or subluxation left hip joint. The AP pelvis exam is unremarkable. No acute cardiopulmonary process seen.
--- NOTE | 2020-12-22 11:53 | ED_ITS ---
HPI - Extremity Injury (Lower) General Chief Complaint: Extremity Injury, Lower Stated Complaint: FALL W/L KNEE PAIN Time Seen by Provider: 12/22/20 11:28 Source: patient and EMS Mode of arrival: EMS Limitations: other (Poor historian) History of Present Illness HPI Narrative: 60yoF c PMHx of CVA, CAD, CHF, MD, hx of CABG and cardiac pacemaker, renal failure, DM Type 2, HTN, HLD, COPD, anemia and hx of leg toe's amputation presenting to the ED via EMS after she reports she had a fall last night approximately at 01:00 where she lost her balance due to her left toes amputation and she was unable to get up until her roommate was able to get her up this morning at 06:00. Reports that she took her 5 mg oxycodone prior to the fall. Reports that she did not hit her head or lose consciousness although she was on the floor the entire night. Complaining of persistent left hip pain. Denies being on any blood thinners other than aspirin. Denies any dizziness, headache, changes in vision, chest pain, shortness of breath, dyspnea on exertion, orthopnea, palpitations, paresthesias, focal weakness, any symptoms or any other symptoms complaints or concerns at this time. Related Data Home Medications Medication Instructions Recorded Confirmed lorazepam 0.5 mg PO DAILY PRN 09/14/20 11/29/20 Breo Ellipta 1 inh INHALATION DAILY 09/16/20 11/29/20 albuterol sulfate 2 puff INHALATION Q6H PRN 09/16/20 11/29/20 allopurinol 100 mg PO DAILY 09/16/20 11/29/20 aspirin 81 mg PO DAILY 09/16/20 11/29/20 atorvastatin 40 mg PO BEDTIME 09/16/20 11/29/20 gabapentin 600 mg PO TID 09/16/20 11/29/20 metoprolol succinate [Toprol XL] 50 mg PO DAILY 09/16/20 11/29/20 omeprazole 20 mg PO DAILY 09/16/20 11/29/20 venlafaxine 150 mg PO DAILY 09/16/20 11/29/20 insulin aspart U-100 100 unit/mL 1 sliding scale dose SUBCUT 11/13/20 11/29/20 subcutaneous solution USEASDIRECTD insulin degludec 100 unit/mL (3 56 unit SUBCUT DAILY ml 11/13/20 11/29/20 mL) subcutaneous pen Previous Rx's Medication Instructions Recorded furosemide 40 mg tablet 40 mg PO DAILY #90 tab 12/06/20 Allergies Allergy/AdvReac Type Severity Reaction Status Date / Time tetracycline [Tetracycline] Allergy Mild HIVES, Verified 11/13/20 13:41 anaphylaxis, anaphylaxis Review of Systems Review of Systems: Constitutional : No changes in activity, No lethargy, No recent prior head injury, No agitation, No increased fussiness ENT/Mouth : No Ear Pain, No Nasal discharge/drainage Eyes: No Eye Pain, No Swelling, No Redness, No Foreign Body, No Vision Changes Cardiovascular : No Chest Pain, No SOB Respiratory : No Cough Gastrointestinal : No Nausea, No Vomiting, No abdominal Pain Genitourinary : No Dysuria, No Urinary Frequency, No Urinary Incontinence, No Urgency, No Flank Pain Musculoskeletal : + joint pain, No neck stiffness, No back pain/injury Skin : No lacerations Neuro : No unsteady gait, No Paresthesias, No Loss of Consciousness, No altered mental status, No Headache Yes all other systems are reviewed and are negative FORMERLY [facility], [facility] Past Medical History Attestation statement: The following information was validated with the patient. Medical History Anemia Anxiety Arthritis Cardiac pacemaker in situ Carpal tunnel syndrome CHF (congestive heart failure) Chronic heart failure with preserved ejection fraction (HFpEF) COPD exacerbation Coronary artery disease CVA (cerebral vascular accident) Diabetes Fall Gastritis Gastroparesis GERD (gastroesophageal reflux disease) Headache HLD (hyperlipidemia) HTN (hypertension) Hypocalcemia Hypoxia IBS (irritable bowel syndrome) Myocardial infarct Nausea and vomiting Renal failure T2DM (type 2 diabetes mellitus) UTI (urinary tract infection) Surgical History H/O Achilles tendon repair History of appendectomy History of bladder surgery History of carpal tunnel release History of total hysterectomy with bilateral salpingo-oophorectomy (BSO) Hx of amputation Hx of CABG (~2019) Hx of cholecystectomy Hx of endoscopy Hx of knee surgery Hx of tonsillectomy Family History Family History Father No problems noted. Mother Diabetes Hypercholesteremia Hypertension Stroke Social History Social History Household Members: Other Housing: Apartment Alcohol intake: never Smoking Status: Former smoker Tobacco Type: Cigarette Years Smoked: 20 Second Hand Smoke Exposure: No Advance Directives: No Advance Directives Information Provided: Yes service: No Current occupational status: disabled Physical Exam Vital Signs: Vital Signs: Last Vital Signs Temp 98.4 F 12/22/20 15:20 Pulse 79 12/22/20 15:20 Resp 16 12/22/20 15:20 BP 95/53 L 12/22/20 15:20 Pulse Ox 97 12/22/20 15:20 Body Mass Index 31.1 Vital signs have been reviewed as normal and appeared to be correct. Blood pressure normal. Heart rate normal. Respiration rate normal. Temperature normal. Oxygen saturation normal. Appearance: Alert. Oriented X3. No acute distress. Head: Normal external exam. Normocephalic. Atraumatic. Able to rotate head bilaterally. Eyes: PERRLA. EOMI. No nystagmus noted. Conjunctiva and sclera normal. Eyelids normal. Corneal reflex normal. ENT: EAC normal. TM's Normal. Hearing normal. Pharynx normal. Uvula midline. tongue midline. Moist mucous membranes. No trismus noted. No drooling noted. No muffled voice noted. No nystagmus noted. Neck: Normal inspection. Neck supple. FROM. No adenopathy. Trachea midline. Thyroid Normal. No meningeal signs. No neck mass noted. CVS: Normal heart rate and rhythm. Heart sound normal. No murmurs noted. Pulses normal throughout. Respiratory: No respiratory distress. Painless inspiration. Breath sounds normal. No wheezes/rales/rhonchi noted. Chest nontender. No accessory muscle usage noted or decreased air movement noted. Abdomen: Soft and nontender. Bowel sounds normal in all 4 quadrants. No distention noted. No organomegaly noted. No visible injury noted. Back: No CVA tenderness. Full range of motion noted. Skin: Skin warm and dry. Normal skin color. Normal skin turgor. No rashes/lesions/lacerations noted. Extremities: Patient with moderate tenderness to palpation to left hip although patient does have full range of motion no laxity noted. No obvious deformities noted. No abrasion/laceration/ecchymosis/foreign bodies or signs of infection noted. No calf tenderness noted. No lower extremity edema. Otherwise all other Extremities exhibit normal range of motion and nontender. Able to shrug shoulders bilaterally and keep up against resistance. Patient noted to have left toes amputated. No signs of infection. Neuro: Oriented X 3. No motor deficit. No sensory deficit. Reflexes normal. Moving all extremities. No focal motor deficits. Cranial nerves II-XI intact bilaterally. Facial strength normal. Normal cognition. Speech normal. Strength 5/5 throughout. No pronator drift. No tremor noted. No fasciculations noted. No rigidity noted. Muscle tone normal throughout. No asterixis noted. Qawmni-mq-lldl test normal. Heel to jimenez test normal. Tandem gait normal. Does not sway with eyes open. Romberg test negative. Rapid alternating movement upper extremity normal. Rapid alternating movement lower extremity normal. Hand drop from overhead Misses face. NIHSS score 0. Course Course Course Narrative: 11:40am - 60yoF c PMHx of CVA, CAD, CHF, MD, hx of CABG and cardiac pacemaker, renal failure, DM Type 2, HTN, HLD, COPD, anemia and hx of leg toe's amputation presenting to the ED via EMS after she lost her balance and had a fall at 01:00 last night and she was unable to get up until 06:00 this morning presenting with left hip pain. - Concern for CVA vs ACS vs electrolyte abnormality vs mechanical fall due to left toe amputation vs sedation due to excessive pain med - Plan: Labs, CT scan of brain/cervical spine, CXR, COVID/RSV/FLU SWAB, EKG, x- ray of left hip/left ankle/left knee and chest. Provide 975 mg of Tylenol then re-evaluate. Reevaluation(s) Reevaluation #1: - WBC 22,000 - BUN/creatinine 48/2.05 - AST 123 - ALT 38 - troponin 105.3 although it appears patient chronically has an elevated troponin will re-obtain at 16:00 3 hours after the 1st patient also denies any active chest pain at this time an EKG is similar compared to prior - BNP 292 - CPK 5957 - therefore patient has a elevated white blood cell count and ISA due to rhabdomyolysis - CT scan of brain/cervical spine revealed chronic changes no acute processes noted. - chest x-ray within normal limits no evidence of pneumonia or any other acute processes. - x-ray of left hip and pelvis revealed chronic changes no acute processes noted. - x-ray of left knee and left ankle revealed chronic changes no acute processes noted. - will start the patient on fluids as patient's BNP is 292 only - Awaiting UA. - plan will be to admit for ISA due to rhabdomyolysis. Patient understands agrees with this plan. Time: 14:34 Reevaluation #2: - when the hospitalist Bhargavi Perez went to speak to the patient about admitting her she decided that she does not want to be admitted due to she is leaving to [place] and therefore wants to leave against medical advice. I explained to her that she should be admitted due to she is in acute ISA and rhabdomyolysis and she can have a stroke, a heart attack or stay permanently disabled or her renal function can worsen and once I went into detail about how severe her acute kidney failure and her rhabdomyolysis was she reported she will stay for further evaluation and treatment. Time: 16:03 MDM - Extremity Injury (Lower) Medical Records Attestation: I reviewed the patient's medical records. Lab Data Attestation: I reviewed the patient's lab results. Result diagrams: 12/22/20 13:06 12/22/20 13:06 Labs: Lab Results 12/22/20 12/22/20 12/22/20 Range/Units 12:37 13:06 13:06 WBC 22.2 H (4.8-10.8) X10*3/uL RBC 4.27 (4.20-5.50) X10*6/uL Hgb 11.7 L D (12.0-16.0) g/dl Hct 36.6 L (37-47) % MCV 85.7 (80-98) fL MCH 27.4 (27.0-33.0) pg MCHC 32.0 (31.0-35.0) g/dl RDW 16.0 (11.0-16.0) % Plt Count 256 D (160-400) X10*3/uL MPV 10.3 (9.4-12.3) fL Immature Gran % (Auto) 0.5 H (0.0-0.4) % Neut % (Auto) 84.7 H (45-73) % Lymph % (Auto) 10.6 L (20-40) % Bleckley % (Auto) 3.7 (2-11) % Eos % (Auto) 0.3 (0-4) % Baso % (Auto) 0.2 (0-2) % Lymph # (Auto) 2.4 (1.2-4.9) X10*3/uL Bleckley # (Auto) 0.8 (0.1-1.2) X10*3/uL Eos # (Auto) 0.1 (0.0-0.4) X10*3/uL Baso # (Auto) 0.1 (0.0-0.2) X10*3/uL Abs Immat Gran (auto) 0.10 H (0.00-0.03) X10*3/uL Absolute Neuts (auto) 18.8 H (2.0-8.3) X10*3/uL Absolute Nucleated RBC 0.000 (0.0-0.012) X10*3/uL Nucleated RBC % (auto) 0.0 (0.0-0.2) /100WBC PT (10.8-13.0) SEC INR (0.9-1.1) APTT (24.1-38.0) SEC Sodium 138 (135-145) mmol/L Potassium 4.8 (3.3-5.1) mmol/L Chloride 100 (96-108) mmol/L Carbon Dioxide 24 (22-29) mmol/L Anion Gap 19 (12-20) BUN 48 H (9-16) mg/dL Creatinine 2.05 H (0.5-1.4) mg/dL Estim Creat Clear Calc 27.3 Estimated GFR 25 Random Glucose 66 D (60-115) mg/dL Calcium 8.0 L (8.4-10.2) mg/dL Magnesium 2.2 (1.6-2.6) mg/dL Total Bilirubin 0.7 (0.0-1.0) mg/dL Direct Bilirubin 0.2 (0.0-0.5) mg/dL AST 123 H (5-31) U/L ALT 38 H (0-31) U/L Alkaline Phosphatase 112 (39-117) U/L Total Creatine Kinase 5957 H D (26-140) U/L Troponin I High Sens (<3.5-17.0) ng/L B-Natriuretic Peptide (<100) pg/mL Total Protein 7.0 (6.5-8.0) g/dL Albumin 3.2 L (3.5-5.0) g/dL Coronavirus (PCR) NEGATIVE (Negative) Influenza Type A (PCR) NEGATIVE (Negative) Influenza Type B (PCR) NEGATIVE (Negative) RSV RNA Qual (PCR) NEGATIVE (Negative) 12/22/20 12/22/20 Range/Units 13:06 13:06 WBC (4.8-10.8) X10*3/uL RBC (4.20-5.50) X10*6/uL Hgb (12.0-16.0) g/dl Hct (37-47) % MCV (80-98) fL MCH (27.0-33.0) pg MCHC (31.0-35.0) g/dl RDW (11.0-16.0) % Plt Count (160-400) X10*3/uL MPV (9.4-12.3) fL Immature Gran % (Auto) (0.0-0.4) % Neut % (Auto) (45-73) % Lymph % (Auto) (20-40) % Bleckley % (Auto) (2-11) % Eos % (Auto) (0-4) % Baso % (Auto) (0-2) % Lymph # (Auto) (1.2-4.9) X10*3/uL Bleckley # (Auto) (0.1-1.2) X10*3/uL Eos # (Auto) (0.0-0.4) X10*3/uL Baso # (Auto) (0.0-0.2) X10*3/uL Abs Immat Gran (auto) (0.00-0.03) X10*3/uL Absolute Neuts (auto) (2.0-8.3) X10*3/uL Absolute Nucleated RBC (0.0-0.012) X10*3/uL Nucleated RBC % (auto) (0.0-0.2) /100WBC PT 12.3 (10.8-13.0) SEC INR 1.0 (0.9-1.1) APTT 32.1 (24.1-38.0) SEC Sodium (135-145) mmol/L Potassium (3.3-5.1) mmol/L Chloride (96-108) mmol/L Carbon Dioxide (22-29) mmol/L Anion Gap (12-20) BUN (9-16) mg/dL Creatinine (0.5-1.4) mg/dL Estim Creat Clear Calc Estimated GFR Random Glucose (60-115) mg/dL Calcium (8.4-10.2) mg/dL Magnesium (1.6-2.6) mg/dL Total Bilirubin (0.0-1.0) mg/dL Direct Bilirubin (0.0-0.5) mg/dL AST (5-31) U/L ALT (0-31) U/L Alkaline Phosphatase (39-117) U/L Total Creatine Kinase (26-140) U/L Troponin I High Sens 105.3 H (<3.5-17.0) ng/L B-Natriuretic Peptide 292 H (<100) pg/mL Total Protein (6.5-8.0) g/dL Albumin (3.5-5.0) g/dL Coronavirus (PCR) (Negative) Influenza Type A (PCR) (Negative) Influenza Type B (PCR) (Negative) RSV RNA Qual (PCR) (Negative) Imaging Data CXR/Left Hip/Left Knee/Left ankle xray: Attestation: I personally reviewed and interpreted this imaging study as follows: Radiologist's impression: FINDINGS: Chest: The lungs are well-expanded and clear of acute process. Heart size and pulmonary vascularity is normal. There are dual pacer electrodes in right atrium and right ventricle. There are median sternotomy sutures from previous intervention. No gross bony abnormality seen. AP PELVIS AND LEFT HIP: There is normal symmetry of the SI joints and bilateral hip joints no visible fracture or bony abnormality seen. There is short and right sacral electrode in the presacral space. AP and frog-leg views reveal no visible fracture involving the left hip. There is no dislocation. The soft tissues are normal. LEFT KNEE: There is loss of tricompartment joint space with mild medial compartment periarticular spurring. No visible acute fracture or loose body seen. There is likely subchondral cyst medial femoral condyle. There is mild suprapatellar joint effusion and enthesophyte along the anterior distal femur. LEFT ANKLE: The ankle mortise and subtalar joints are normal. There is no visible acute fracture, dislocation or subluxation seen. There is small calcaneal heel and retrocalcaneal enthesophytes are seen. 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 There is extensive vascular calcification present. XR/XR chest 2V IMPRESSION: Small calcaneal heel and calcaneus enthesophyte. No fracture or dislocation seen. The on mid foot amputation. Degenerative changes in the tricompartment with small suprapatellar joint effusion. No loose body or acute fracture seen. There is no visible acute fracture, dislocation or subluxation left hip joint. The AP pelvis exam is unremarkable. No acute cardiopulmonary process seen. Ct scan of brain/cervical spine : Attestation: I personally reviewed and interpreted this imaging study as follows: Radiologist's impression: FINDINGS: BRAIN: Bone windows reveal no calvarial abnormality. There is no scalp soft tissue abnormality. There is no acute intra-axial, extra-axial bleed, masses or midline shift. There is no acute infarction in evolution. The lateral ventricles are symmetrical in size and configuration but enlarged. There is mild periventricular hypodensity in both cerebral hemispheres without mass effect. Bone windows reveal no calvarial abnormality. No scalp soft tissue abnormality seen. Bilateral paranasal sinuses and mastoid air cells are well-aerated. CERVICAL SPINE: There is maintained cervical lordosis. The vertebral heights, alignment and disc heights are normal. The craniovertebral junction and the C1-C2 alignment is normal. No visible acute fracture, dislocation or subluxation seen. There is mild right C2-C3, C3-C4 facet joint arthropathy and hypertrophy. The prevertebral and paravertebral soft tissues are normal. Mild increase interstitial markings are seen in both lung apices. No consolidation seen. CT/CT head/brain wo con IMPRESSION: No acute intracranial process seen. Age-related mild cerebral atrophy. There is no acute fracture or dislocation. There are degenerative facet joint arthropathy changes. ECG Data Attestation: I personally reviewed and interpreted this ECG as follows: ECG interpretation date: 12/22/20 ECG interpretation time: 12:06 Interpretation: Normal sinus rhythm with a incomplete right bundle branch block with right ventricular hypertrophy nonspecific ST and T-wave abnormalities and prolonged QT at 462ms. Similar when compared to prior EKG on 10/31/2020 no acute ischemic changes today. Critical Care Time Critical Care Time Critical Care Time: Yes Total Critical Care Time: 60 Attestation: I personally attest to this time spent taking care of the patient Discharge Plan Discharge Clinical Impression: Fall, ISA (acute kidney injury), Acute renal failure due to rhabdomyolysis, Rhabdomyolysis, Elevated troponin Patient Disposition: Admitted As Inpatient
--- NOTE | 2020-12-22 12:16 | PC.NURSE ---
pt drifting off to sleep on/off, easily arousable states took oxycodone at 0230 and didn't sleep, becky garvin updated, instructed to hold oxycodone at present time
[2020-12-22] MEDS: Acetaminophen 325 MG TABLET 975 MG PO (12:48)
[2020-12-22 13:14] LABS: MANUAL DIFF FLAG NO
[2020-12-22 13:15] LABS: Basophils Absolute Auto 0.1 X10*3/uL (0.0-0.2); Basophils Percent Auto 0.2 % (0-2); Eosinophils Absolute Auto 0.1 X10*3/uL (0.0-0.4); Eosinophils Percent Auto 0.3 % (0-4); Hematocrit 36.6 % (37-47); Hemoglobin 11.7 g/dl (12.0-16.0); Imm Gran Pct Auto 0.5 % (0.0-0.4); Lymphocytes Absolute Auto 2.4 X10*3/uL (1.2-4.9); Lymphocytes Percent Auto 10.6 % (20-40); Mean Corpuscular Hemoglobin 27.4 pg (27.0-33.0); Mean Corpuscular Volume 85.7 fL (80-98); Mean Platelet Volume 10.3 fL (9.4-12.3); Monocytes Absolute Auto 0.8 X10*3/uL (0.1-1.2); Monocytes Percent Auto 3.7 % (2-11); Neutrophils Absolute Auto 18.8 X10*3/uL (2.0-8.3); Neutrophils Percent Auto 84.7 % (45-73); Platelet Count 256 X10*3/uL (160-400); Red Blood Count 4.27 X10*6/uL (4.20-5.50); White Blood Count 22.2 X10*3/uL (4.8-10.8)
--- NOTE | 2020-12-22 13:15 | PC.NURSE ---
GEOFF GALLAGHER AT BEDSIDE FOR IV INSERTION
[2020-12-22 13:20] LABS: Prothrombin Time 12.3 SEC (10.8-13.0)
[2020-12-22 13:23] LABS: Partial Thromboplastin Time 32.1 SEC (24.1-38.0)
[2020-12-22 14:03] LABS: B Type Natriuretic Peptide 292 pg/mL (<100); Troponin-I High Sensitivity 105.3 ng/L (<3.5-17.0)
[2020-12-22 14:25] LABS: Alanine Aminotransferase 38 U/L (0-31); Albumin Level 3.2 g/dL (3.5-5.0); Alkaline Phosphatase 112 U/L (39-117); Anion Gap 19 (12-20); Aspartate Amino Transferase 123 U/L (5-31); Bilirubin Direct 0.2 mg/dL (0.0-0.5); Bilirubin Total 0.7 mg/dL (0.0-1.0); Blood Urea Nitrogen 48 mg/dL (9-16); Carbon Dioxide 24 mmol/L (22-29); Chloride 100 mmol/L (96-108); Creatinine Clr Calc Pharmacy 27.3; Estimated Glomerular Filt Rate 25; Glucose Random 66 mg/dL (60-115); Magnesium 2.2 mg/dL (1.6-2.6); Potassium 4.8 mmol/L (3.3-5.1); Sodium 138 mmol/L (135-145)
[2020-12-22 14:41] LABS: Influenza A PCR NEGATIVE (Negative); Influenza B PCR NEGATIVE (Negative); Resp Syncy Virus RNA Qual PCR NEGATIVE (Negative); SARS COV2 PCR INHOUSE NEGATIVE (Negative)
[2020-12-22] MEDS: 0.9 % Sodium Chloride 1,000 ML 999 ML IVCONT ×2 (15:14→18:46)
--- NOTE | 2020-12-22 15:17 | PC.NURSE ---
unable to flush left ac, removed, rachelrn obtained access rt lower arm #[id number] patent, iv fluids infusing
[2020-12-22 15:20] VITALS: BP 95/53; PULSE 79; RESP 16; TEMP 36.9; O2SAT 97
--- NOTE | 2020-12-22 17:22 | PM.EVENT ---
Event Note Date of Service: 12/22/20 Event Note: Patient came status post fall she says that she was trying to go to switch off marbella , she walks with walker but she was just trying hold on to the walker but could not get hold of it and fell down. Was on the floor for a long time. There is a question that she is using oxycodone more than usual as per ED physician. Lab imaging EKG reviewed: Patient has white count elevated 22 range ISA Rhabdo CPK 6000+ Troponin of 105 which is looks similar to couple of weeks back when she had 105 range also, repeated troponin is 93 so delta less than 50%. EKG looks the similar to previous admission ST changes lemos 1.42 on November 29 ,today is 2.05 Currently patient denies any chest pain or shortness of breath or abdominal pain or nausea or vomiting or diarrhea or any urinary complaints. Denies any fever or any recent steroid use. Physical exam: Cvs: rrr, [id number] , no murmur res: clear to auscultation ,no rhonchii or wheezing abd: no rebound or guarding ,nt, bs present. ext pulses present , no cyanosis neuro: axo3 , nonfocal. Assessment and plan: 1. Fall: Multifactorial probably mechanical versus also question if is she is using more oxycodone than usual. Rhabdo probably due to fall Troponin seems chronic versus rhabdo my side also be contributing common does not look any new EKG changes. Will repeat troponin. Patient already received the fluid a initially and patient is on 100 mL/hour right now continue to monitor respiratory lemos because patient has history of CHF currently BNP is only 200 range. Hold the patient's diuretics and avoid medications that can cause renal function deterioration including Robert. She still has left upper leg pain even though imaging is negative: Please continue to monitor if pain worsen then may need further workup.
[2020-12-22] MEDS: oxyCODONE HCl Immed Release 5 MG TABLET PO (18:09)
[2020-12-22 18:56] LABS: Color Urine YELLOW; Glucose Urine UA 500 MG/DL (NEG); Leukocyte Esterase Urine NEG (NEG); Nitrite Urine NEG (NEG); Specific Gravity - Urine >= 1.030 (1.005-1.025); Urine Blood 3+ (NEG); Urine Ketones NEG (NEG); Urine Protein 3+ MG/DL (NEG-TRACE)
[2020-12-22 18:57] LABS: Appearance Urine HAZY
[2020-12-22 19:17] LABS: Bacteria Urine TRACE /LPF; RBC Urine 0 /HPF (0); Renal Epithelial Cells Urine 1+ /LPF; Squamous Epithelial Cell Urine 3+ /LPF
[2020-12-22 19:18] LABS: Granular Casts Urine 0-2 /LPF
[2020-12-22 21:01] LABS: MANUAL DIFF FLAG NO
[2020-12-22 21:03] LABS: Basophils Percent Auto 0.1 % (0-2); Eosinophils Absolute Auto 0.1 X10*3/uL (0.0-0.4); Eosinophils Percent Auto 0.8 % (0-4); Hematocrit 34.1 % (37-47); Hemoglobin 10.8 g/dl (12.0-16.0); Imm Gran Abs Auto 0.05 X10*3/uL (0.00-0.03); Imm Gran Pct Auto 0.3 % (0.0-0.4); Lymphocytes Absolute Auto 1.1 X10*3/uL (1.2-4.9); Lymphocytes Percent Auto 7.2 % (20-40); Mean Corpuscular HGB Conc 31.7 g/dl (31.0-35.0); Mean Corpuscular Hemoglobin 27.2 pg (27.0-33.0); Mean Corpuscular Volume 85.9 fL (80-98); Mean Platelet Volume 10.5 fL (9.4-12.3); Monocytes Absolute Auto 0.5 X10*3/uL (0.1-1.2); Monocytes Percent Auto 3.2 % (2-11); Neutrophils Absolute Auto 12.9 X10*3/uL (2.0-8.3); Neutrophils Percent Auto 88.4 % (45-73); Platelet Count 217 X10*3/uL (160-400); Red Blood Count 3.97 X10*6/uL (4.20-5.50); Red Cell Distribution Width 15.9 % (11.0-16.0); White Blood Count 14.6 X10*3/uL (4.8-10.8)
[2020-12-22] MEDS: 0.9 % Sodium Chloride 1,000 ML 100 ML IVCONT (21:05)
[2020-12-22 21:30] LABS: Anion Gap 15 (12-20); Blood Urea Nitrogen 42 mg/dL (9-16); Carbon Dioxide 21 mmol/L (22-29); Chloride 104 mmol/L (96-108); Creatinine Clr Calc Pharmacy 28.9; Estimated Glomerular Filt Rate 26; Glucose Random 131 mg/dL (60-115); Potassium 4.1 mmol/L (3.3-5.1); Sodium 136 mmol/L (135-145)
[2020-12-22 21:42] LABS: Calcium 7.3 mg/dL (8.4-10.2)
[2020-12-22 21:43] LABS: Troponin-I High Sensitivity 67.5 ng/L (<3.5-17.0)
[2020-12-22 21:52] LABS: Glucose, Whole Blood 138 mg/dL (60-115)
[2020-12-22 21:58] VITALS: BP 136/72; PULSE 73; RESP 14; TEMP 36.2; O2SAT 95
[2020-12-22] MEDS: Gabapentin 600 MG TABLET PO (22:31)
[2020-12-22] MEDS: Atorvastatin Calcium 40 MG TABLET PO (22:31)
[2020-12-23 00:53] VITALS: BP 133/64; PULSE 72; RESP 14; TEMP 36.4; O2SAT 94
--- NOTE | 2020-12-23 02:38 | PC.NURSE ---
pt given ice chips and turkey sandwich.
[2020-12-23 04:50] VITALS: BP 144/76; PULSE 84; RESP 16
[2020-12-23] MEDS: Omeprazole 20 MG CAPSULE.DR PO (06:14)
[2020-12-23 06:20] LABS: Glucose, Whole Blood 165 mg/dL (60-115)
--- NOTE | 2020-12-23 06:27 | PC.NURSE ---
IV fluid changed running at 100ml/hr ns.
[2020-12-23 07:12] LABS: Glucose, Whole Blood 137 mg/dL (60-115)
--- NOTE | 2020-12-23 07:15 | PC.NURSE ---
report taken from phillip burton pt admitted for rhabdo, awaiting inpt bed assignment. pt in nad upon first contact, good spirits. would like to go home today. sitting up eating breakfast w/o issue. wctm for discharge needs.
--- NOTE | 2020-12-23 07:29 | PC.NURSE ---
report given to c micheal hogan.
--- NOTE | 2020-12-23 08:05 | PC.NURSE ---
pt refusing to go upstairs to bed assignment for inpt admission. pt expressing she would like to leave [facility], messaged hospitalist.
--- NOTE | 2020-12-23 08:33 | PC.NURSE ---
pt moved to 19h, hospitalist will visit w pt when he is available re: pt leaving [facility]
[2020-12-23 08:47] LABS: Blood Urea Nitrogen 39 mg/dL (9-16); Creatinine Clr Calc Pharmacy 31.5; Estimated Glomerular Filt Rate 29; Glucose Random 158 mg/dL (60-115)
[2020-12-23 09:10] LABS: Anion Gap 14 (12-20); Calcium 7.7 mg/dL (8.4-10.2); Carbon Dioxide 25 mmol/L (22-29); Chloride 105 mmol/L (96-108); Potassium 5.5 mmol/L (3.3-5.1); Sodium 138 mmol/L (135-145)
[2020-12-23] MEDS: Gabapentin 600 MG TABLET PO (10:22)
[2020-12-23] MEDS: Venlafaxine HCl ER 150 MG CAP.ER.24H PO (10:22)
[2020-12-23] MEDS: Tamsulosin HCL 0.4 MG CAPSULE PO (10:22)
[2020-12-23] MEDS: Aspirin Enteric Coated 81 MG TABLET.DR PO (10:22)
[2020-12-23] MEDS: Ferrous Sulfate 324 MG TABLET.DR PO (10:23)
[2020-12-23] MEDS: allopurinoL 100 MG TABLET PO (10:23)
--- NOTE | 2020-12-23 10:56 | PC.NURSE ---
pt expresses wishing to leave [facility], hospitalist at bedside, paperwork for [facility] discharge completed. pt educated about risks of leaving [facility] under current clinical presentation, pt brought to waiting room to go home in family vehicle. pt verbalizes understanding of dc instructions.
--- NOTE | 2020-12-23 11:24 | PM.DS ---
DS: Providers Provider Date of Service: 12/23/20 Date of admission: 12/22/20 17:09 Primary care physician: GURMEET Kim DS: Diagnosis Discharge Diagnosis (1) ISA (acute kidney injury): Status: Acute (2) Rhabdomyolysis: Status: Acute (3) Fall: Status: Acute DS: Medications Discharge Medications Home Medications: Home Medications Medication Instructions Recorded Confirmed lorazepam 0.5 mg PO BID PRN 09/14/20 12/22/20 Breo Ellipta 1 inh INHALATION DAILY PRN 09/16/20 12/22/20 albuterol sulfate 2 puff INHALATION Q6H PRN 09/16/20 12/22/20 allopurinol 100 mg PO DAILY 09/16/20 12/22/20 aspirin 81 mg PO DAILY 09/16/20 12/22/20 atorvastatin 40 mg PO BEDTIME 09/16/20 12/22/20 gabapentin 600 mg PO TID 09/16/20 12/22/20 metoprolol succinate [Toprol XL] 50 mg PO DAILY 09/16/20 12/22/20 omeprazole 20 mg PO BID 09/16/20 12/22/20 venlafaxine 150 mg PO DAILY 09/16/20 12/22/20 insulin aspart U-100 100 unit/mL 1 sliding scale dose SUBCUT 11/13/20 12/22/20 subcutaneous solution USEASDIRECTD insulin degludec 100 unit/mL (3 40 unit SUBCUT DAILY ml 11/13/20 12/22/20 mL) subcutaneous pen amlodipine 1 tab PO DAILY 12/22/20 12/22/20 diclofenac sodium TOPICAL 12/22/20 ergocalciferol (vitamin D2) 1 cap PO QWEEK 12/22/20 12/22/20 ferrous sulfate [iron] 325 mg PO DAILY 12/22/20 12/22/20 insulin aspart U-100 [Novolog 12/22/20 U-100 Insulin aspart] tamsulosin 1 cap PO DAILY 12/22/20 12/22/20 Previous Rx's Medication Instructions Recorded furosemide 40 mg tablet 40 mg PO DAILY #90 tab 12/06/20 DS: Summary Hospital Course Hospital Course: Patient was admitted for fall complicated by acute kidney injury due to rhabdomyolysis. She was put on IV fluids, recommendations were to continue IV fluids and monitor labs. However, patient decided to leave against medical advice. She was aware of risk of doing so including worsening kidney injury and possible . She decided to leave against medical advice anyway. Time Spent with Patient Time attestation: Total time spent providing and/or coordinating discharge services: Discharge coordination time: Greater than 30 minutes Physical Exam Vital Signs: Vital Signs: Last Vital Signs Temp 97.6 F 12/23/20 00:53 Pulse 84 12/23/20 04:50 Resp 16 12/23/20 04:50 BP 144/76 H 12/23/20 04:50 Pulse Ox 94 12/23/20 00:53 Body Mass Index 31.1 General: AO X 3, no acute distress Resp: CTA bilateral CVS: S1,S2,RRR GI: soft, non tender, non distended Neuro: motor grossly intact Psych: appropriate affect DS: Data Data Completed and Pending Completed studies during hospitalization [Text1]: Procedures Insertion of Infusion Device into Right Basilic Vein, Percutaneous Approach (10/31/20) Transfusion of Nonautologous Red Blood Cells into Peripheral Vein, Percutaneous Approach (10/31/20) Labs on day of discharge: Laboratory Tests 12/22/20 12/22/20 12/22/20 12:37 13:06 13:06 WBC 22.2 H RBC 4.27 Hgb 11.7 L D Hct 36.6 L MCV 85.7 MCH 27.4 MCHC 32.0 RDW 16.0 Plt Count 256 D MPV 10.3 Immature Gran % (Auto) 0.5 H Neut % (Auto) 84.7 H Lymph % (Auto) 10.6 L [place] % (Auto) 3.7 Eos % (Auto) 0.3 Baso % (Auto) 0.2 Lymph # (Auto) 2.4 [place] # (Auto) 0.8 Eos # (Auto) 0.1 Baso # (Auto) 0.1 Abs Immat Gran (auto) 0.10 H Absolute Neuts (auto) 18.8 H Absolute Nucleated RBC 0.000 Nucleated RBC % (auto) 0.0 PT INR APTT Sodium 138 Potassium 4.8 Chloride 100 Carbon Dioxide 24 Anion Gap 19 BUN 48 H Creatinine 2.05 H Estim Creat Clear Calc 27.3 Estimated GFR 25 POC Glucose Random Glucose 66 D Calcium 8.0 L Magnesium 2.2 Total Bilirubin 0.7 Direct Bilirubin 0.2 AST 123 H ALT 38 H Alkaline Phosphatase 112 Total Creatine Kinase 5957 H D Troponin I High Sens B-Natriuretic Peptide Total Protein 7.0 Albumin 3.2 L Urine Color Urine Appearance Urine pH Ur Specific [place] Urine Protein Urine Glucose (UA) Urine Ketones Urine Blood Urine Nitrite Ur Leukocyte Esterase Urine RBC Urine WBC Ur Squamous Epith Cells Ur Renal Epithelial Cell Urine Bacteria Granular Casts Urine Yeast Coronavirus (PCR) NEGATIVE Influenza Type A (PCR) NEGATIVE Influenza Type B (PCR) NEGATIVE RSV RNA Qual (PCR) NEGATIVE 12/22/20 12/22/20 12/22/20 13:06 13:06 16:49 WBC RBC Hgb Hct MCV MCH MCHC RDW Plt Count MPV Immature Gran % (Auto) Neut % (Auto) Lymph % (Auto) [place] % (Auto) Eos % (Auto) Baso % (Auto) Lymph # (Auto) [place] # (Auto) Eos # (Auto) Baso # (Auto) Abs Immat Gran (auto) Absolute Neuts (auto) Absolute Nucleated RBC Nucleated RBC % (auto) PT 12.3 INR 1.0 APTT 32.1 Sodium Potassium Chloride Carbon Dioxide Anion Gap BUN Creatinine Estim Creat Clear Calc Estimated GFR POC Glucose Random Glucose Calcium Magnesium Total Bilirubin Direct Bilirubin AST ALT Alkaline Phosphatase Total Creatine Kinase Troponin I High Sens 105.3 H 93.0 H B-Natriuretic Peptide 292 H Total Protein Albumin Urine Color Urine Appearance Urine pH Ur Specific [place] Urine Protein Urine Glucose (UA) Urine Ketones Urine Blood Urine Nitrite Ur Leukocyte Esterase Urine RBC Urine WBC Ur Squamous Epith Cells Ur Renal Epithelial Cell Urine Bacteria Granular Casts Urine Yeast Coronavirus (PCR) Influenza Type A (PCR) Influenza Type B (PCR) RSV RNA Qual (PCR) 12/22/20 12/22/20 12/22/20 18:50 20:53 20:53 WBC RBC Hgb Hct MCV MCH MCHC RDW Plt Count MPV Immature Gran % (Auto) Neut % (Auto) Lymph % (Auto) [place] % (Auto) Eos % (Auto) Baso % (Auto) Lymph # (Auto) [place] # (Auto) Eos # (Auto) Baso # (Auto) Abs Immat Gran (auto) Absolute Neuts (auto) Absolute Nucleated RBC Nucleated RBC % (auto) PT INR APTT Sodium 136 Cancelled Potassium 4.1 Cancelled Chloride 104 Cancelled Carbon Dioxide 21 L Cancelled Anion Gap 15 Cancelled BUN 42 H Cancelled Creatinine 1.94 H Cancelled Estim Creat Clear Calc 28.9 Cancelled Estimated GFR 26 Cancelled POC Glucose Random Glucose 131 H D Cancelled Calcium 7.3 L D Cancelled Magnesium Total Bilirubin Direct Bilirubin AST ALT Alkaline Phosphatase Total Creatine Kinase 5904 H Troponin I High Sens B-Natriuretic Peptide Total Protein Albumin Urine Color YELLOW Urine Appearance HAZY Urine pH 6.0 Ur Specific [place] >= 1.030 H Urine Protein 3+ H Urine Glucose (UA) 500 H Urine Ketones NEG Urine Blood 3+ H Urine Nitrite NEG Ur Leukocyte Esterase NEG Urine RBC 0 Urine WBC 1-4 Ur Squamous Epith Cells 3+ Ur Renal Epithelial Cell 1+ Urine Bacteria TRACE Granular Casts 0-2 Urine Yeast 3+ Coronavirus (PCR) Influenza Type A (PCR) Influenza Type B (PCR) RSV RNA Qual (PCR) 12/22/20 12/22/20 12/22/20 20:53 20:53 21:48 WBC 14.6 H RBC 3.97 L Hgb 10.8 L Hct 34.1 L MCV 85.9 MCH 27.2 MCHC 31.7 RDW 15.9 Plt Count 217 MPV 10.5 Immature Gran % (Auto) 0.3 Neut % (Auto) 88.4 H Lymph % (Auto) 7.2 L [place] % (Auto) 3.2 Eos % (Auto) 0.8 Baso % (Auto) 0.1 Lymph # (Auto) 1.1 L [place] # (Auto) 0.5 Eos # (Auto) 0.1 Baso # (Auto) 0.0 Abs Immat Gran (auto) 0.05 H Absolute Neuts (auto) 12.9 H Absolute Nucleated RBC 0.000 Nucleated RBC % (auto) 0.0 PT INR APTT Sodium Potassium Chloride Carbon Dioxide Anion Gap BUN Creatinine Estim Creat Clear Calc Estimated GFR POC Glucose 138 H Random Glucose Calcium Magnesium Total Bilirubin Direct Bilirubin AST ALT Alkaline Phosphatase Total Creatine Kinase Troponin I High Sens 67.5 H B-Natriuretic Peptide Total Protein Albumin Urine Color Urine Appearance Urine pH Ur Specific [place] Urine Protein Urine Glucose (UA) Urine Ketones Urine Blood Urine Nitrite Ur Leukocyte Esterase Urine RBC Urine WBC Ur Squamous Epith Cells Ur Renal Epithelial Cell Urine Bacteria Granular Casts Urine Yeast Coronavirus (PCR) Influenza Type A (PCR) Influenza Type B (PCR) RSV RNA Qual (PCR) 12/23/20 12/23/20 12/23/20 06:13 06:29 07:06 WBC RBC Hgb Hct MCV MCH MCHC RDW Plt Count MPV Immature Gran % (Auto) Neut % (Auto) Lymph % (Auto) [place] % (Auto) Eos % (Auto) Baso % (Auto) Lymph # (Auto) [place] # (Auto) Eos # (Auto) Baso # (Auto) Abs Immat Gran (auto) Absolute Neuts (auto) Absolute Nucleated RBC Nucleated RBC % (auto) PT INR APTT Sodium 138 Potassium 5.5 H D Chloride 105 Carbon Dioxide 25 Anion Gap 14 BUN 39 H Creatinine 1.78 H Estim Creat Clear Calc 31.5 Estimated GFR 29 POC Glucose 165 H 137 H Random Glucose 158 H Calcium 7.7 L Magnesium Total Bilirubin Direct Bilirubin AST ALT Alkaline Phosphatase Total Creatine Kinase 4751 H Troponin I High Sens B-Natriuretic Peptide Total Protein Albumin Urine Color Urine Appearance Urine pH Ur Specific [place] Urine Protein Urine Glucose (UA) Urine Ketones Urine Blood Urine Nitrite Ur Leukocyte Esterase Urine RBC Urine WBC Ur Squamous Epith Cells Ur Renal Epithelial Cell Urine Bacteria Granular Casts Urine Yeast Coronavirus (PCR) Influenza Type A (PCR) Influenza Type B (PCR) RSV RNA Qual (PCR) Discharge Plan Discharge Patient Disposition: Left Against Medical Advice Referrals: Anna Garcia FNP [Primary Care Provider] - Discharge Medications: No Action furosemide 40 mg tablet 40 mg PO DAILY Qty: 90 RF: 3 lorazepam 0.5 mg Tablet 0.5 mg PO BID PRN (Reason: Anxiety) RF: 0 atorvastatin 40 mg Tablet 40 mg PO BEDTIME RF: 0 gabapentin 600 mg Tablet 600 mg PO TID RF: 0 metoprolol succinate [Toprol XL] 50 mg Tablet Extended Release 24 Hr 50 mg PO DAILY RF: 0 allopurinol 100 mg Tablet 100 mg PO DAILY RF: 0 omeprazole 20 mg Capsule,Delayed Release(Dr/Ec) 20 mg PO BID RF: 0 albuterol sulfate 90 mcg/actuation Hfa Aerosol Inhaler 2 puff INHALATION Q6H PRN (Reason: Shortness Of Breath) RF: 0 venlafaxine 150 mg Tablet Extended Release 24hr 150 mg PO DAILY RF: 0 Breo Ellipta 100-25 mcg/dose Blister With Device 1 inh INHALATION DAILY PRN (Reason: Shortness Of Breath) RF: 0 aspirin 81 mg Tablet,Delayed Release (Dr/Ec) 81 mg PO DAILY RF: 0 insulin aspart U-100 [Novolog U-100 Insulin aspart] 100 unit/mL solution 1 sliding scale dose SUBCUT USEASDIRECTD RF: 0 tamsulosin 0.4 mg capsule 1 cap PO DAILY RF: 0 ferrous sulfate [iron] 325 mg (65 mg iron) Tablet 325 mg PO DAILY RF: 0 ergocalciferol (vitamin D2) 1,250 mcg (50,000 unit) capsule 1 cap PO QWEEK RF: 0 diclofenac sodium 1 % gel topical RF: 0 insulin aspart U-100 [Novolog U-100 Insulin aspart] 100 unit/mL Solution RF: 0 amlodipine 5 mg tablet 1 tab PO DAILY RF: 0 Tresiba FlexTouch U-100 100 unit/mL (3 mL) insulin pen 40 unit subcut DAILY RF: 0 Discharge Orders: Discharge Order (Routine); Ordered 12/23/20 Ordered By: Merrill Vazquez Care Plan Goals: recovery Health Concerns: isa, rhabdo, fall Plan of Treatment: to stay in hospital for ivf and lab monitroing
--- NOTE | 2020-12-23 11:57 | MHC.CM.PN ---
pt left ama prior to being seen by cm
== END 2020-12-23 14:16 | disposition left against medical advice (07) | DRG 565 ==
LOC: HO.ED 15:02 → HO.EDOVER 17:36 → HO.IMC 12-23 06:35 → HO.EDOVER 12-23 14:15
PROVIDERS: Nurse Practitioner Acute Care; Physician Assistant Medical; Admitting Provider Internal Medicine; Emergency Provider Emergency Medicine; PCP Nurse Practitioner Family; Visit Provider Internal Medicine
DX: T79.6XXA Traumatic ischemia of muscle, initial encounter (principal); N17.9 Acute kidney failure, unspecified; F41.9 Anxiety disorder, unspecified; Z95.0 Presence of cardiac pacemaker; Z20.822 Contact with and (suspected) exposure to COVID-19; W19.XXXA Unspecified fall, initial encounter; Y93.9 Activity, unspecified; Y92.009 Unspecified place in unspecified non-institutional (private) residence as the place of occurrence of the external cause; Y99.9 Unspecified external cause status; I25.10 Atherosclerotic heart disease of native coronary artery without angina pectoris; Z95.1 Presence of aortocoronary bypass graft; I25.2 Old myocardial infarction; Z79.4 Long term (current) use of insulin; Z79.82 Long term (current) use of aspirin; Z79.891 Long term (current) use of opiate analgesic; Z79.899 Other long term (current) drug therapy
CPT/HCPCS: 0241U; 36415; 70450; 71046; 72125; 73502; 73564; 73610; 80048; 80076; 81001; 82550; 82947; 83735; 83880; 84484; 85025; 85610; 85730; 87040; 93005; 96360; 96361; 99284; 99291

== ENCOUNTER 2021-01-07 05:21 | Emergency (ER) | payer OTHER, SELFPAY ==
--- NOTE | ~2021-01-07 | XR_ITS ---
EXAMINATION: XR CHEST CLINICAL INFORMATION: Cough COMPARISON: 12/22/2020 TECHNIQUE: Frontal view of the chest was obtained. FINDINGS: Cardiac leads overlie the chest. Median sternotomy wires appear intact. The lungs are well expanded. There is no focal consolidation, edema, or effusion. No pneumothorax. The cardiomediastinal silhouette is within normal limits. No acute osseous abnormality. XR/XR chest 1V IMPRESSION: No acute pulmonary finding.
--- NOTE | 2021-01-07 05:26 | ECG_ITS ---
Test Reason : ABD PAIN Blood Pressure : / mmHG Vent. Rate : 111 BPM Atrial Rate : 111 BPM P-R Int : 202 ms QRS Dur : 120 ms QT Int : 322 ms P-R-T Axes : 076 099 -87 degrees QTc Int : 437 ms Atrial-sensed ventricular-paced rhythm Abnormal ECG When compared with ECG of 22-DEC-2020 12:06, Electronic ventricular pacemaker has replaced Sinus rhythm Vent. rate has increased BY 39 BPM Referred By: Tanja Rivas Electronically Signed By:Efren Diaz
[2021-01-07 05:32] VITALS: BP 170/90; BP 190/102; PULSE 117; PULSE 128; RESP 28; TEMP 36.6; O2SAT 94; O2SAT 97; BMI 29.2
--- NOTE | 2021-01-07 05:53 | ED_ITS ---
HPI - Abdominal Pain General Chief Complaint: Abdominal Pain Stated Complaint: hyperglycemia Time Seen by Provider: 01/07/21 05:26 Source: patient Mode of arrival: EMS History of Present Illness HPI narrative: This is a 58-year-old female PMHx of CVA, CAD, CHF, RI, hx of CABG and cardiac pacemaker, renal failure, DM Type 2, HTN, HLD, COPD, anemia who presents via EMS for onset abdominal pain with multiple episodes of nausea and vomiting after arriving into [place] from [place] last night at 9:00 p.m.. In addition, patient noted that her sugar was elevated at 442. Otherwise, she denies fevers, chills, diarrhea, urinary pain/burning/frequency. On review of documentation patient is noted to have been admitted here 12/22 and then on her report she states she went to [place] on the 25 of December and endorses that she was admitted twice while in [place] was discharged on 01/04, traveled on 01/05, and is now presenting into this emergency room. She states all for the same symptoms. Related Data Home Medications Medication Instructions Recorded Confirmed lorazepam 0.5 mg PO BID PRN 09/14/20 12/22/20 Breo Ellipta 1 inh INHALATION DAILY PRN 09/16/20 12/22/20 albuterol sulfate 2 puff INHALATION Q6H PRN 09/16/20 12/22/20 allopurinol 100 mg PO DAILY 09/16/20 12/22/20 aspirin 81 mg PO DAILY 09/16/20 12/22/20 atorvastatin 40 mg PO BEDTIME 09/16/20 12/22/20 gabapentin 600 mg PO TID 09/16/20 12/22/20 metoprolol succinate [Toprol XL] 50 mg PO DAILY 09/16/20 12/22/20 omeprazole 20 mg PO BID 09/16/20 12/22/20 venlafaxine 150 mg PO DAILY 09/16/20 12/22/20 insulin aspart U-100 100 unit/mL 1 sliding scale dose SUBCUT 11/13/20 12/22/20 subcutaneous solution USEASDIRECTD insulin degludec 100 unit/mL (3 40 unit SUBCUT DAILY ml 11/13/20 12/22/20 mL) subcutaneous pen amlodipine 1 tab PO DAILY 12/22/20 12/22/20 diclofenac sodium TOPICAL 12/22/20 ergocalciferol (vitamin D2) 1 cap PO QWEEK 12/22/20 12/22/20 ferrous sulfate [iron] 325 mg PO DAILY 12/22/20 12/22/20 insulin aspart U-100 [Novolog 12/22/20 U-100 Insulin aspart] tamsulosin 1 cap PO DAILY 12/22/20 12/22/20 Previous Rx's Medication Instructions Recorded furosemide 40 mg tablet 40 mg PO DAILY #90 tab 12/06/20 Allergies Allergy/AdvReac Type Severity Reaction Status Date / Time tetracycline [Tetracycline] Allergy Mild HIVES, Verified 11/13/20 13:41 anaphylaxis, anaphylaxis Review of Systems Review of Systems Pertinent positives and negatives as stated in HPI 10 point review systems is otherwise negative. Physical Exam Vital Signs: Vital Signs: Last Vital Signs Temp 98.4 F 01/07/21 07:16 Pulse 99 01/07/21 07:16 Resp 18 01/07/21 07:16 BP 135/91 H 01/07/21 07:16 Pulse Ox 97 01/07/21 05:32 Body Mass Index 29.2 VITAL SIGNS: Reviewed. GENERAL: Well developed, well nourished, tearful. HEAD: Normocephalic/atraumatic EYES: PERRLA, EOMI EARS: Ext canals without abnormality, TMs non-bulging and non-erythematous NOSE: Nares patent bilateral OROPHARYNX: no oral lesions noted, posterior pharynx clear and non-erythematous without noted tonsillar enlargement/erythema/exudates NECK: Supple, no adenopathy LUNGS: Normal breath sounds. No adventitious sounds or accessory muscle use. SpO2<> CARDIOVASCULAR: Regular rate and rhythm without noted murmurs, no JVD or lower extremity edema. ABDOMEN: Soft, tenderness at epigastrium without rebound, non-distended with bowel sounds. NEUROLOGIC: Alert and oriented x 4. Strength and sensation to light touch were grossly intact x 4. Course Course Course Narrative: This is a 60-year-old female with history and clinical presentation concerning for poor medication compliance and appears to have acute exacerbation of her gastroparesis, but will rule out alternative etiologies such as infection or cardiac. Signed out to Dr Ireland: Plan to f/u labs and rehydration with possible admission for gastroparesis if unable to control N/V. MDM - Abdominal Pain Lab Data Result diagrams: 01/07/21 06:02 01/07/21 06:02 Labs: Lab Results 01/07/21 01/07/21 01/07/21 Range/Units 06:02 06:02 06:02 WBC 9.2 (4.8-10.8) X10*3/uL RBC 4.86 D (4.20-5.50) X10*6/uL Hgb 13.2 D (12.0-16.0) g/dl Hct 41.1 D (37-47) % MCV 84.6 (80-98) fL MCH 27.2 (27.0-33.0) pg MCHC 32.1 (31.0-35.0) g/dl RDW 14.9 (11.0-16.0) % Plt Count 304 D (160-400) X10*3/uL MPV 10.1 (9.4-12.3) fL Immature Gran % (Auto) 0.4 (0.0-0.4) % Neut % (Auto) 81.9 H (45-73) % Lymph % (Auto) 11.2 L (20-40) % [place] % (Auto) 6.1 (2-11) % Eos % (Auto) 0.2 (0-4) % Baso % (Auto) 0.2 (0-2) % Lymph # (Auto) 1.0 L (1.2-4.9) X10*3/uL [place] # (Auto) 0.6 (0.1-1.2) X10*3/uL Eos # (Auto) 0.0 (0.0-0.4) X10*3/uL Baso # (Auto) 0.0 (0.0-0.2) X10*3/uL Abs Immat Gran (auto) 0.04 H (0.00-0.03) X10*3/uL Absolute Neuts (auto) 7.5 (2.0-8.3) X10*3/uL Absolute Nucleated RBC 0.000 (0.0-0.012) X10*3/uL Nucleated RBC % (auto) 0.0 (0.0-0.2) /100WBC Sodium 140 (135-145) mmol/L Potassium 3.8 D (3.3-5.1) mmol/L Chloride 98 (96-108) mmol/L Carbon Dioxide 32 H (22-29) mmol/L Anion Gap 14 (12-20) BUN 18 H D (9-16) mg/dL Creatinine 1.62 H (0.5-1.4) mg/dL Estim Creat Clear Calc 33.6 Estimated GFR 32 POC Glucose (60-115) mg/dL Random Glucose 406 H* (60-115) mg/dL Lactic Acid 1.6 (0.5-2.0) mmol/L Calcium 9.0 D (8.4-10.2) mg/dL Total Bilirubin 0.7 (0.0-1.0) mg/dL AST 18 D (5-31) U/L ALT 20 (0-31) U/L Alkaline Phosphatase 105 (39-117) U/L Total Protein 7.1 (6.5-8.0) g/dL Albumin 3.4 L (3.5-5.0) g/dL Acetone, Qual Negative (Negative) 01/07/21 Range/Units 07:15 WBC (4.8-10.8) X10*3/uL RBC (4.20-5.50) X10*6/uL Hgb (12.0-16.0) g/dl Hct (37-47) % MCV (80-98) fL MCH (27.0-33.0) pg MCHC (31.0-35.0) g/dl RDW (11.0-16.0) % Plt Count (160-400) X10*3/uL MPV (9.4-12.3) fL Immature Gran % (Auto) (0.0-0.4) % Neut % (Auto) (45-73) % Lymph % (Auto) (20-40) % [place] % (Auto) (2-11) % Eos % (Auto) (0-4) % Baso % (Auto) (0-2) % Lymph # (Auto) (1.2-4.9) X10*3/uL [place] # (Auto) (0.1-1.2) X10*3/uL Eos # (Auto) (0.0-0.4) X10*3/uL Baso # (Auto) (0.0-0.2) X10*3/uL Abs Immat Gran (auto) (0.00-0.03) X10*3/uL Absolute Neuts (auto) (2.0-8.3) X10*3/uL Absolute Nucleated RBC (0.0-0.012) X10*3/uL Nucleated RBC % (auto) (0.0-0.2) /100WBC Sodium (135-145) mmol/L Potassium (3.3-5.1) mmol/L Chloride (96-108) mmol/L Carbon Dioxide (22-29) mmol/L Anion Gap (12-20) BUN (9-16) mg/dL Creatinine (0.5-1.4) mg/dL Estim Creat Clear Calc Estimated GFR POC Glucose 346 H (60-115) mg/dL Random Glucose (60-115) mg/dL Lactic Acid (0.5-2.0) mmol/L Calcium (8.4-10.2) mg/dL Total Bilirubin (0.0-1.0) mg/dL AST (5-31) U/L ALT (0-31) U/L Alkaline Phosphatase (39-117) U/L Total Protein (6.5-8.0) g/dL Albumin (3.5-5.0) g/dL Acetone, Qual (Negative) ECG Data Attestation: I personally reviewed and interpreted this ECG as follows: Prior ECG tracings: available for review (12/22/20 no acute changes on comparison other than heart rate) Interpretation: Atrial sensed, ventricular paced, HR-111, cannot determine i [place]ia, [place]/QRS are consistent with prior and QTC is improved and within normal limits when compared to prior Discharge Plan Discharge Prescriptions: No Action furosemide 40 mg tablet 40 mg PO DAILY Qty: 90 RF: 3 lorazepam 0.5 mg Tablet 0.5 mg PO BID PRN (Reason: Anxiety) RF: 0 atorvastatin 40 mg Tablet 40 mg PO BEDTIME RF: 0 gabapentin 600 mg Tablet 600 mg PO TID RF: 0 metoprolol succinate [Toprol XL] 50 mg Tablet Extended Release 24 Hr 50 mg PO DAILY RF: 0 allopurinol 100 mg Tablet 100 mg PO DAILY RF: 0 omeprazole 20 mg Capsule,Delayed Release(Dr/Ec) 20 mg PO BID RF: 0 albuterol sulfate 90 mcg/actuation Hfa Aerosol Inhaler 2 puff INHALATION Q6H PRN (Reason: Shortness Of Breath) RF: 0 venlafaxine 150 mg Tablet Extended Release 24hr 150 mg PO DAILY RF: 0 Breo Ellipta 100-25 mcg/dose Blister With Device 1 inh INHALATION DAILY PRN (Reason: Shortness Of Breath) RF: 0 aspirin 81 mg Tablet,Delayed Release (Dr/Ec) 81 mg PO DAILY RF: 0 insulin aspart U-100 [Novolog U-100 Insulin aspart] 100 unit/mL solution 1 sliding scale dose SUBCUT USEASDIRECTD RF: 0 tamsulosin 0.4 mg capsule 1 cap PO DAILY RF: 0 ferrous sulfate [iron] 325 mg (65 mg iron) Tablet 325 mg PO DAILY RF: 0 ergocalciferol (vitamin D2) 1,250 mcg (50,000 unit) capsule 1 cap PO QWEEK RF: 0 diclofenac sodium 1 % gel topical RF: 0 insulin aspart U-100 [Novolog U-100 Insulin aspart] 100 unit/mL Solution RF: 0 amlodipine 5 mg tablet 1 tab PO DAILY RF: 0 Tresiba FlexTouch U-100 100 unit/mL (3 mL) insulin pen 40 unit subcut DAILY RF: 0 PMFSH Past Medical History Source: nursing notes reviewed Medical History Anemia Anxiety Arthritis Cardiac pacemaker in situ Carpal tunnel syndrome CHF (congestive heart failure) Chronic heart failure with preserved ejection fraction (HFpEF) COPD exacerbation Coronary artery disease CVA (cerebral vascular accident) Diabetes Fall Gastritis Gastroparesis GERD (gastroesophageal reflux disease) Headache HLD (hyperlipidemia) HTN (hypertension) Hypocalcemia Hypoxia IBS (irritable bowel syndrome) Myocardial infarct Nausea and vomiting Renal failure T2DM (type 2 diabetes mellitus) UTI (urinary tract infection) Surgical History H/O Achilles tendon repair History of appendectomy History of bladder surgery History of carpal tunnel release History of total hysterectomy with bilateral salpingo-oophorectomy (BSO) Hx of amputation Hx of CABG (~2019) Hx of cholecystectomy Hx of endoscopy Hx of knee surgery Hx of tonsillectomy Family History Family History Father No problems noted. Mother Diabetes Hypercholesteremia Hypertension Stroke Social History Social History Household Members: Other Housing: Apartment Alcohol intake: former Smoking Status: Former smoker Tobacco Type: Cigarette Years Smoked: 20 Second Hand Smoke Exposure: No Use of substances other than those prescribed or required for medical reasons: No Advance Directives: No service: No Current occupational status: disabled
[2021-01-07 06:10] LABS: MANUAL DIFF FLAG NO
[2021-01-07 06:13] LABS: Basophils Percent Auto 0.2 % (0-2); Eosinophils Percent Auto 0.2 % (0-4); Hematocrit 41.1 % (37-47); Hemoglobin 13.2 g/dl (12.0-16.0); Imm Gran Abs Auto 0.04 X10*3/uL (0.00-0.03); Imm Gran Pct Auto 0.4 % (0.0-0.4); Lymphocytes Percent Auto 11.2 % (20-40); Mean Corpuscular HGB Conc 32.1 g/dl (31.0-35.0); Mean Corpuscular Hemoglobin 27.2 pg (27.0-33.0); Mean Corpuscular Volume 84.6 fL (80-98); Mean Platelet Volume 10.1 fL (9.4-12.3); Monocytes Absolute Auto 0.6 X10*3/uL (0.1-1.2); Monocytes Percent Auto 6.1 % (2-11); Neutrophils Absolute Auto 7.5 X10*3/uL (2.0-8.3); Neutrophils Percent Auto 81.9 % (45-73); Platelet Count 304 X10*3/uL (160-400); Red Blood Count 4.86 X10*6/uL (4.20-5.50); Red Cell Distribution Width 14.9 % (11.0-16.0); White Blood Count 9.2 X10*3/uL (4.8-10.8)
[2021-01-07 06:37] LABS: Lactic Acid 1.6 mmol/L (0.5-2.0)
[2021-01-07 06:38] LABS: Acetone, serum QL Negative (Negative)
[2021-01-07 06:46] LABS: Alanine Aminotransferase 20 U/L (0-31); Albumin Level 3.4 g/dL (3.5-5.0); Alkaline Phosphatase 105 U/L (39-117); Anion Gap 14 (12-20); Aspartate Amino Transferase 18 U/L (5-31); Bilirubin Total 0.7 mg/dL (0.0-1.0); Blood Urea Nitrogen 18 mg/dL (9-16); Carbon Dioxide 32 mmol/L (22-29); Chloride 98 mmol/L (96-108); Creatinine Clr Calc Pharmacy 33.6; Estimated Glomerular Filt Rate 32; Glucose Random 406 mg/dL (60-115); Potassium 3.8 mmol/L (3.3-5.1); Sodium 140 mmol/L (135-145); Total Protein 7.1 g/dL (6.5-8.0)
[2021-01-07] MEDS: diphenhydrAMINE HCL 50 MG/ML VIAL 25 MG IVPUSH (06:52)
[2021-01-07] MEDS: Metoclopramide HCl 10 MG/2 ML VIAL IVPUSH (06:52)
[2021-01-07] MEDS: Labetalol HCL 100 MG/20 ML VIAL 10 MG IVPUSH (06:53)
[2021-01-07] MEDS: Famotidine/PF 20 MG/2 ML VIAL IVPUSH (06:53)
[2021-01-07] MEDS: 0.9 % Sodium Chloride 1,000 ML 999 ML IV (06:53)
[2021-01-07 07:16] VITALS: BP 135/91; PULSE 99; RESP 18; TEMP 36.9
[2021-01-07 07:28] LABS: Glucose, Whole Blood 346 mg/dL (60-115)
--- NOTE | 2021-01-07 07:34 | PC.NURSE ---
Point of Care at 0715 was 346. (Dr. Meeks) aware, no new orders at this time
[2021-01-07 07:49] LABS: COVID-19 Test Negative (Negative)
[2021-01-07 09:28] VITALS: BP 164/90; PULSE 96; RESP 14; TEMP 36.8
[2021-01-07 10:43] VITALS: BP 157/73; PULSE 92; RESP 14; O2SAT 97
--- NOTE | 2021-01-07 11:15 | PC.NURSE ---
pt had large (soft) bowel movement, she was toilet and cleaned by staff, bed linens changed. aware
[2021-01-07 11:42] LABS: Glucose Urine UA >=1000 MG/DL (NEG); Leukocyte Esterase Urine NEG (NEG); Nitrite Urine POS (NEG); PH 6.5 (5.0-8.0); Specific Gravity - Urine 1.025 (1.005-1.025); UACC Culture Trigger YES; Urine Blood 2+ (NEG); Urine Ketones 5 MG/DL (NEG); Urine Protein 3+ MG/DL (NEG-TRACE)
[2021-01-07 11:43] LABS: Appearance Urine HAZY; Color Urine YELLOW
[2021-01-07 11:56] LABS: Bacteria Urine 4+ /LPF; Squamous Epithelial Cell Urine 3+ /LPF
[2021-01-07 12:13] LABS: Glucose, Whole Blood 251 mg/dL (60-115)
--- NOTE | 2021-01-07 12:30 | PC.NURSE ---
pt had swallow test done, tolerated diet tati-kristin without vomiting. aware
[2021-01-07 13:00] VITALS: BP 187/80; PULSE 88; RESP 14; TEMP 36.5; O2SAT 95
[2021-01-07 14:13] VITALS: BP 170/78; PULSE 94; RESP 18; O2SAT 95
--- NOTE | 2021-01-07 15:59 | PC.NURSE ---
pt ambulates well with walker to restroom. pt in no distress. pt tolerating po fluids. awaiitng dispostion.
== END 2021-01-07 16:53 | disposition home or self-care (01) ==
PROVIDERS: Emergency Provider Student in an Organized Health Care Education/Training Program
DX: E11.43 Type 2 diabetes mellitus with diabetic autonomic (poly)neuropathy (principal); K31.84 Gastroparesis; R11.2 Nausea with vomiting, unspecified; R19.7 Diarrhea, unspecified; Z20.822 Contact with and (suspected) exposure to COVID-19; F17.210 Nicotine dependence, cigarettes, uncomplicated; I11.0 Hypertensive heart disease with heart failure; I50.9 Heart failure, unspecified; J44.9 Chronic obstructive pulmonary disease, unspecified; K21.9 Gastro-esophageal reflux disease without esophagitis; K58.9 Irritable bowel syndrome, unspecified; Z91.81 History of falling; Z91.14 Patient's other noncompliance with medication regimen; Z87.440 Personal history of urinary (tract) infections; I25.2 Old myocardial infarction; Z86.73 Personal history of transient ischemic attack (TIA), and cerebral infarction without residual deficits; Z95.0 Presence of cardiac pacemaker; Z79.899 Other long term (current) drug therapy; Z79.4 Long term (current) use of insulin
CPT/HCPCS: 36415; 71045; 80053; 81001; 81003; 82009; 82947; 83605; 85025; 87040; 87086; 87635; 93005; 96361; 96374; 96375; 99284; J1200; J2765

== ENCOUNTER 2021-01-07 23:43 | Inpatient (IN) | payer OTHER, SELFPAY ==
--- NOTE | ~2021-01-07 | CT_ITS ---
EXAMINATION: CT ABDOMEN AND PELVIS WITHOUT CONTRAST CLINICAL INFORMATION: Abdominal pain and vomiting. COMPARISON: 08/16/2020 TECHNIQUE: Multidetector volumetric imaging was performed from the superior aspect of the liver through the pubic symphysis. Sagittal and coronal reformatted images were obtained on the technologist's workstation. This CT examination was performed using dose optimization techniques as appropriate, variously including the following: *Automated exposure control *Adjustment of mA and/or kV according to patient size (this includes techniques or standardized protocols for targeted exams where dose is matched to indication/reason for exam; i.e. extremities or head) *Use of iterative reconstruction technique DLP: 583 mGy-cm FINDINGS: LUNG BASES: The visualized lung bases are unremarkable. LIVER, GALLBLADDER, AND BILIARY TREE: The liver is normal in size, shape, and attenuation. No focal hepatic lesion or biliary ductal dilatation is present. Cholecystectomy. PANCREAS: Mild atrophy with no focal abnormality of the pancreatic parenchyma. SPLEEN: Unremarkable. ADRENAL GLANDS: Unremarkable. KIDNEYS AND URETERS: The kidneys are normal in size, shape, and attenuation. No hydronephrosis, hydroureter, or calculi seen. No perinephric stranding. BLADDER: The bladder is distended without focal wall thickening. There is gas noted in the bladder lumen which could be associated with recent catheterization. GASTROINTESTINAL TRACT: The stomach is unremarkable. Normal caliber small bowel. There is no obstruction. No colonic wall thickening or acute inflammation. No free air or free fluid. ABDOMINAL WALL: Fat-containing ventral supraumbilical abdominal wall hernia. There is asymmetric thickening of the left rectus abdominis muscle, measuring 3.3 cm AP, compared to 1.2 cm on the right. This is a change from prior CT and is consistent with a small rectus sheath hematoma. Radiopaque generator in the right posterior soft tissues. Sacral nerve stimulator. LYMPH NODES: Normal. VASCULAR: Normal caliber aorta with mild atherosclerotic calcification. PELVIC VISCERA: Uterus is not seen. No adnexal mass. OSSEOUS STRUCTURES: No acute or suspicious osseous abnormality. CT/CT abdomen pelvis wo con IMPRESSION: 1. No bowel obstruction. No inflammatory changes. 2. Small left rectus sheath hematoma.
[2021-01-08] VITALS (11 sets, daily range): BP systolic 124–199; BP diastolic 71–95; PULSE 79–109; RESP 12–18; TEMP 36.8–37.3; O2SAT 92–97; BMI 29.2
--- NOTE | 2021-01-08 03:03 | ED.NAVMDI ---
HPI - Nausea/Vomiting/Diarrhea General Chief complaint: Nausea/Vomiting/Diarrhea Stated complaint: vomitting Time Seen by Provider: 01/08/21 02:35 Source: patient, EMS and old records reviewed Mode of arrival: EMS Limitations: no limitations History of Present Illness MD elicited complaint: nausea, vomiting and abdominal pain Pertinent past history: cyclical vomiting Onset (ago): week(s) (2) Associated nausea: Yes Associated abdominal pain: Yes Location of pain: epigastric Radiation: epigastric Pain consistency: intermittent Severity: similar to previous episodes Quality: cramping Exacerbating factors: eating Relieving factors: none Associated symptoms: loss of appetite, malaise, nausea/vomiting and fatigue Related Data Home Medications Medication Instructions Recorded Confirmed lorazepam 0.5 mg PO BID PRN 09/14/20 12/22/20 Breo Ellipta 1 inh INHALATION DAILY PRN 09/16/20 12/22/20 albuterol sulfate 2 puff INHALATION Q6H PRN 09/16/20 12/22/20 allopurinol 100 mg PO DAILY 09/16/20 12/22/20 aspirin 81 mg PO DAILY 09/16/20 12/22/20 atorvastatin 40 mg PO BEDTIME 09/16/20 12/22/20 gabapentin 600 mg PO TID 09/16/20 12/22/20 metoprolol succinate [Toprol XL] 50 mg PO DAILY 09/16/20 12/22/20 omeprazole 20 mg PO BID 09/16/20 12/22/20 venlafaxine 150 mg PO DAILY 09/16/20 12/22/20 insulin aspart U-100 100 unit/mL 1 sliding scale dose SUBCUT 11/13/20 12/22/20 subcutaneous solution USEASDIRECTD insulin degludec 100 unit/mL (3 40 unit SUBCUT DAILY ml 11/13/20 12/22/20 mL) subcutaneous pen amlodipine 1 tab PO DAILY 12/22/20 12/22/20 diclofenac sodium TOPICAL 12/22/20 ergocalciferol (vitamin D2) 1 cap PO QWEEK 12/22/20 12/22/20 ferrous sulfate [iron] 325 mg PO DAILY 12/22/20 12/22/20 insulin aspart U-100 [Novolog 12/22/20 U-100 Insulin aspart] tamsulosin 1 cap PO DAILY 12/22/20 12/22/20 Previous Rx's Medication Instructions Recorded furosemide 40 mg tablet 40 mg PO DAILY #90 tab 12/06/20 ondansetron HCl [Zofran] 4 mg PO Q8H PRN #10 tab 01/07/21 Allergies Allergy/AdvReac Type Severity Reaction Status Date / Time tetracycline [Tetracycline] Allergy Mild HIVES, Verified 11/13/20 13:41 anaphylaxis, anaphylaxis Review of Systems Review of Systems: Constitutional : No Weight loss, No Fever, No Chills ENT/Mouth : No sore throat, No Rhinorrhea Eyes: No Swelling, No Redness Cardiovascular : No Chest Pain, No SOB, NoEdema Respiratory : No Cough, No Sputum, No Wheezing Gastrointestinal : Positive Nausea, Positive Vomiting, no Diarrhea, positive abdominal Pain, No Hematochezia, No Melena Genitourinary : No Dysuria, No Urinary Frequency, No Hematuria, No Urgency Musculoskeletal : No joint pain, No Myalgias, No Joint Swelling Skin : No Skin Lesions, No rash Neuro : No Weakness, No Numbness, No Dizziness, No Headache Psych : No Anxiety/Panic, No Depression Heme/Lymph: No Bruising, No Lymphadenopathy Endocrine : No Polyuria, No Polydipsia All other systems reviewed and are negative. Gastrointestinal: Gastrointestinal: Reports nausea PMFSH Past Medical History Attestation statement: The following information was validated with the patient. Medical History Anemia Anxiety Arthritis Cardiac pacemaker in situ Carpal tunnel syndrome CHF (congestive heart failure) Chronic heart failure with preserved ejection fraction (HFpEF) COPD exacerbation Coronary artery disease CVA (cerebral vascular accident) Diabetes Fall Gastritis Gastroparesis GERD (gastroesophageal reflux disease) Headache HLD (hyperlipidemia) HTN (hypertension) Hypocalcemia Hypoxia IBS (irritable bowel syndrome) Myocardial infarct Nausea and vomiting Renal failure T2DM (type 2 diabetes mellitus) UTI (urinary tract infection) Surgical History H/O Achilles tendon repair History of appendectomy History of bladder surgery History of carpal tunnel release History of total hysterectomy with bilateral salpingo-oophorectomy (BSO) Hx of amputation Hx of CABG (~2019) Hx of cholecystectomy Hx of endoscopy Hx of knee surgery Hx of tonsillectomy Family History Family History Father No problems noted. Mother Diabetes Hypercholesteremia Hypertension Stroke Social History Social History Household Members: Other Housing: Apartment Alcohol intake: former Smoking Status: Former smoker Tobacco Type: Cigarette Years Smoked: 20 Second Hand Smoke Exposure: No Advance Directives: No service: No Current occupational status: disabled Physical Exam Vital Signs: Vital Signs: Last Vital Signs Temp 98.5 F 01/08/21 00:07 Pulse 99 01/08/21 06:04 Resp 14 01/08/21 06:04 BP 166/81 H 01/08/21 06:04 Pulse Ox 97 01/08/21 06:04 Body Mass Index 29.2 Appearance: Alert. Oriented X3. No acute distress. dry heaving Eyes: Pupils equal, round and reactive to light. ENT: Pharynx normal. Neck: Normal inspection. Neck supple. CVS: Normal heart rate and rhythm. Pulses normal. Respiratory: No respiratory distress. Breath sounds normal. Abdomen: Soft and moderate epigastric ttp Skin: Skin warm and dry. Normal skin color. Normal skin turgor. Extremities: No lower extremity edema. No calf ttp Neuro: Oriented X 3. No motor deficit. No sensory deficit. Course Course Course Narrative: IV lopressor 5mg ordered for HTN/tachycardia - missed medications unable to tolerate PO at this time , repeat ED visits will admit for intractable n/v - hospitalist sent message is aware MDM - Nausea/Vomiting/Diarrhea MDM Narrative Medical decision making narrative: 60 yo female with DM, ISA, PA, CAD s/p CABG here wtih 2 weeks of vomiting and upper abdominal pain consistent with her prior gastroparesis - at this time will obtain labs, hydrate, given IVF/IV reglan/benadryl/ativan - CT scan given long duration of symptoms - dispo per results and findings. Lab Data Result diagrams: 01/08/21 03:26 01/08/21 03:26 Labs: Lab Results 01/08/21 01/08/21 01/08/21 Range/Units 03:07 03:26 03:26 WBC 7.5 (4.8-10.8) X10*3/uL RBC 4.51 (4.20-5.50) X10*6/uL Hgb 12.3 (12.0-16.0) g/dl Hct 38.1 (37-47) % MCV 84.5 (80-98) fL MCH 27.3 (27.0-33.0) pg MCHC 32.3 (31.0-35.0) g/dl RDW 14.9 (11.0-16.0) % Plt Count 311 (160-400) X10*3/uL MPV 10.2 (9.4-12.3) fL Immature Gran % (Auto) 0.7 H (0.0-0.4) % Neut % (Auto) 76.9 H (45-73) % Lymph % (Auto) 13.6 L (20-40) % Hall % (Auto) 8.0 (2-11) % Eos % (Auto) 0.7 (0-4) % Baso % (Auto) 0.1 (0-2) % Lymph # (Auto) 1.0 L (1.2-4.9) X10*3/uL Hall # (Auto) 0.6 (0.1-1.2) X10*3/uL Eos # (Auto) 0.1 (0.0-0.4) X10*3/uL Baso # (Auto) 0.0 (0.0-0.2) X10*3/uL Abs Immat Gran (auto) 0.05 H (0.00-0.03) X10*3/uL Absolute Neuts (auto) 5.8 (2.0-8.3) X10*3/uL Absolute Nucleated RBC 0.000 (0.0-0.012) X10*3/uL Nucleated RBC % (auto) 0.0 (0.0-0.2) /100WBC Hold Blue Top SEE NOTE Sodium (135-145) mmol/L Potassium (3.3-5.1) mmol/L Chloride (96-108) mmol/L Carbon Dioxide (22-29) mmol/L Anion Gap (12-20) BUN (9-16) mg/dL Creatinine (0.5-1.4) mg/dL Estim Creat Clear Calc Estimated GFR POC Glucose 467 H* (60-115) mg/dL Random Glucose (60-115) mg/dL Calcium (8.4-10.2) mg/dL Magnesium (1.6-2.6) mg/dL Total Bilirubin (0.0-1.0) mg/dL Direct Bilirubin (0.0-0.5) mg/dL AST (5-31) U/L ALT (0-31) U/L Alkaline Phosphatase (39-117) U/L Troponin I High Sens (<3.5-17.0) ng/L Total Protein (6.5-8.0) g/dL Albumin (3.5-5.0) g/dL Lipase (8-78) U/L 01/08/21 01/08/21 01/08/21 Range/Units 03:26 03:26 04:44 WBC (4.8-10.8) X10*3/uL RBC (4.20-5.50) X10*6/uL Hgb (12.0-16.0) g/dl Hct (37-47) % MCV (80-98) fL MCH (27.0-33.0) pg MCHC (31.0-35.0) g/dl RDW (11.0-16.0) % Plt Count (160-400) X10*3/uL MPV (9.4-12.3) fL Immature Gran % (Auto) (0.0-0.4) % Neut % (Auto) (45-73) % Lymph % (Auto) (20-40) % Hall % (Auto) (2-11) % Eos % (Auto) (0-4) % Baso % (Auto) (0-2) % Lymph # (Auto) (1.2-4.9) X10*3/uL Hall # (Auto) (0.1-1.2) X10*3/uL Eos # (Auto) (0.0-0.4) X10*3/uL Baso # (Auto) (0.0-0.2) X10*3/uL Abs Immat Gran (auto) (0.00-0.03) X10*3/uL Absolute Neuts (auto) (2.0-8.3) X10*3/uL Absolute Nucleated RBC (0.0-0.012) X10*3/uL Nucleated RBC % (auto) (0.0-0.2) /100WBC Hold Blue Top Sodium 134 L (135-145) mmol/L Potassium 3.6 (3.3-5.1) mmol/L Chloride 95 L (96-108) mmol/L Carbon Dioxide 30 H (22-29) mmol/L Anion Gap 13 (12-20) BUN 18 H (9-16) mg/dL Creatinine 1.76 H (0.5-1.4) mg/dL Estim Creat Clear Calc 30.9 Estimated GFR 29 POC Glucose 249 H (60-115) mg/dL Random Glucose 547 H* (60-115) mg/dL Calcium 8.8 (8.4-10.2) mg/dL Magnesium 1.7 (1.6-2.6) mg/dL Total Bilirubin 0.6 (0.0-1.0) mg/dL Direct Bilirubin 0.2 (0.0-0.5) mg/dL AST 17 (5-31) U/L ALT 19 (0-31) U/L Alkaline Phosphatase 111 (39-117) U/L Troponin I High Sens 35.0 H (<3.5-17.0) ng/L Total Protein 7.1 (6.5-8.0) g/dL Albumin 3.5 (3.5-5.0) g/dL Lipase 24 (8-78) U/L ECG Data Attestation: I personally reviewed and interpreted this ECG as follows: ECG interpretation date: 01/08/21 ECG interpretation time: 03:59 Interpretation: Rate: 107 Rhythm: sinus tachycardia [place]: right Normal P waves. Normal [place]. RBBB ST T wave : no [place], t wave inversions and depressions in lateral / inf leads qTC: prolonged prior studies: no acute ischemia The study has been interpreted contemporaneously by me. . Discharge Plan Discharge Clinical Impression: Vomiting, Gastroparesis, HTN (hypertension), Acute hyperglycemia Patient Disposition: Admitted As Inpatient Prescriptions: No Action furosemide 40 mg tablet 40 mg PO DAILY Qty: 90 RF: 3 lorazepam 0.5 mg Tablet 0.5 mg PO BID PRN (Reason: Anxiety) RF: 0 atorvastatin 40 mg Tablet 40 mg PO BEDTIME RF: 0 gabapentin 600 mg Tablet 600 mg PO TID RF: 0 metoprolol succinate [Toprol XL] 50 mg Tablet Extended Release 24 Hr 50 mg PO DAILY RF: 0 allopurinol 100 mg Tablet 100 mg PO DAILY RF: 0 omeprazole 20 mg Capsule,Delayed Release(Dr/Ec) 20 mg PO BID RF: 0 albuterol sulfate 90 mcg/actuation Hfa Aerosol Inhaler 2 puff INHALATION Q6H PRN (Reason: Shortness Of Breath) RF: 0 venlafaxine 150 mg Tablet Extended Release 24hr 150 mg PO DAILY RF: 0 Breo Ellipta 100-25 mcg/dose Blister With Device 1 inh INHALATION DAILY PRN (Reason: Shortness Of Breath) RF: 0 aspirin 81 mg Tablet,Delayed Release (Dr/Ec) 81 mg PO DAILY RF: 0 insulin aspart U-100 [Novolog U-100 Insulin aspart] 100 unit/mL solution 1 sliding scale dose SUBCUT USEASDIRECTD RF: 0 tamsulosin 0.4 mg capsule 1 cap PO DAILY RF: 0 ferrous sulfate [iron] 325 mg (65 mg iron) Tablet 325 mg PO DAILY RF: 0 ergocalciferol (vitamin D2) 1,250 mcg (50,000 unit) capsule 1 cap PO QWEEK RF: 0 diclofenac sodium 1 % gel topical RF: 0 insulin aspart U-100 [Novolog U-100 Insulin aspart] 100 unit/mL Solution RF: 0 amlodipine 5 mg tablet 1 tab PO DAILY RF: 0 ondansetron HCl [Zofran] 4 mg tablet 4 mg PO Q8H PRN (Reason: nausea and vomiting) Qty: 10 RF: 0 Tresiba FlexTouch U-100 100 unit/mL (3 mL) insulin pen 40 unit subcut DAILY RF: 0
[2021-01-08 03:11] LABS: Glucose, Whole Blood 467 mg/dL (60-115)
--- NOTE | 2021-01-08 03:12 | ECG_ITS ---
Test Reason : EPIGASTIC Blood Pressure : / mmHG Vent. Rate : 107 BPM Atrial Rate : 107 BPM P-R Int : 148 ms QRS Dur : 126 ms QT Int : 394 ms P-R-T Axes : 066 106 -58 degrees QTc Int : 525 ms Sinus tachycardia Biatrial enlargement Right bundle branch block T wave abnormality, consider inferolateral ischemia Abnormal ECG When compared with ECG of 07-JAN-2021 06:02, Sinus rhythm has replaced Electronic ventricular pacemaker Referred By: Jade Gracia Electronically Signed By:Efren Diaz
[2021-01-08 03:33] LABS: MANUAL DIFF FLAG NO
[2021-01-08 03:34] LABS: Basophils Percent Auto 0.1 % (0-2); Eosinophils Absolute Auto 0.1 X10*3/uL (0.0-0.4); Eosinophils Percent Auto 0.7 % (0-4); Hematocrit 38.1 % (37-47); Hemoglobin 12.3 g/dl (12.0-16.0); Imm Gran Abs Auto 0.05 X10*3/uL (0.00-0.03); Imm Gran Pct Auto 0.7 % (0.0-0.4); Lymphocytes Percent Auto 13.6 % (20-40); Mean Corpuscular HGB Conc 32.3 g/dl (31.0-35.0); Mean Corpuscular Hemoglobin 27.3 pg (27.0-33.0); Mean Corpuscular Volume 84.5 fL (80-98); Mean Platelet Volume 10.2 fL (9.4-12.3); Monocytes Absolute Auto 0.6 X10*3/uL (0.1-1.2); Neutrophils Absolute Auto 5.8 X10*3/uL (2.0-8.3); Neutrophils Percent Auto 76.9 % (45-73); Platelet Count 311 X10*3/uL (160-400); Red Blood Count 4.51 X10*6/uL (4.20-5.50); Red Cell Distribution Width 14.9 % (11.0-16.0); White Blood Count 7.5 X10*3/uL (4.8-10.8)
[2021-01-08] MEDS: 0.9 % Sodium Chloride 500 ML IV (03:41)
[2021-01-08] MEDS: LORazepam 2 MG/ML VIAL 0.5 MG IVPUSH (03:42)
[2021-01-08] MEDS: diphenhydrAMINE HCL 50 MG/ML VIAL 25 MG IVPUSH (03:43)
[2021-01-08] MEDS: Metoclopramide HCl 10 MG/2 ML VIAL IVPUSH (03:44)
[2021-01-08] MEDS: Insulin Regular, Human 100 UNIT/ML 3 ML VIAL IVPUSH (03:44)
[2021-01-08] MEDS: Metoprolol Tartrate 5 MG/5 ML VIAL IVPUSH (04:00)
[2021-01-08 04:02] LABS: Alanine Aminotransferase 19 U/L (0-31); Albumin Level 3.5 g/dL (3.5-5.0); Alkaline Phosphatase 111 U/L (39-117); Anion Gap 13 (12-20); Aspartate Amino Transferase 17 U/L (5-31); Bilirubin Direct 0.2 mg/dL (0.0-0.5); Bilirubin Total 0.6 mg/dL (0.0-1.0); Blood Urea Nitrogen 18 mg/dL (9-16); Calcium 8.8 mg/dL (8.4-10.2); Carbon Dioxide 30 mmol/L (22-29); Chloride 95 mmol/L (96-108); Creatinine Clr Calc Pharmacy 30.9; Estimated Glomerular Filt Rate 29; Glucose Random 547 mg/dL (60-115); Lipase 24 U/L (8-78); Magnesium 1.7 mg/dL (1.6-2.6); Potassium 3.6 mmol/L (3.3-5.1); Sodium 134 mmol/L (135-145); Total Protein 7.1 g/dL (6.5-8.0)
[2021-01-08 04:49] LABS: Glucose, Whole Blood 249 mg/dL (60-115)
[2021-01-08 07:34] LABS: Glucose, Whole Blood 292 mg/dL (60-115)
--- NOTE | 2021-01-08 07:46 | PC.NURSE ---
report taken from Shaina PEACOCK. pt resting on stretcher watching TV. reports abdominal pain and nausea. no vomiting. pt calm. pt made aware she will be admitted to hospital. poc checked, 293.
[2021-01-08] MEDS: ondansetron HCL 4 MG/2 ML VIAL IVPUSH ×4 (07:53→22:53)
[2021-01-08 09:41] LABS: Glucose, Whole Blood 252 mg/dL (60-115)
--- NOTE | 2021-01-08 10:21 | P.HPHOSP_ITS ---
History of Present Illness Date of Service: 01/08/21 Chief Complaint: nausea /vomiting 60-year-old female with past medical history of coronary artery disease status post CABG, diabetes, hypertension, gout, depression, COPD who presents to the hospital with complaints few days of nausea or vomiting at least a week at per the patient she said she was recently in [place] in the beginning of this month and where she started to having these symptoms after eating eggs and bread: And she went to the hospital in [place] for 2 times for above complaints. She says currently she is having nausea or vomiting intractably. Also has some epigastric discomfort otherwise denies any diarrhea or fever or chills or weakness or numbness. Lab imaging reviewed:? isa bun/cr : 18/1.76 , elevated fs 400's range, no leucocytosis abnormal ua : wbc: 5-9, nitrite positive CT of the abdomen: No bowel obstruction, small rectus sheath hematoma. cxr yesteday: neg. 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 Review of Systems Review of Systems: nausea /vomiting lemos says somewhat better. Denies any recent fever chills . cardiovascular is adjustment of any PND or edema gastrointestinal denies any dysphagia , has some epigastric discomfort, no diarrhea genitourinary denies any dysuria frequency or hematuria musculoskeletal denies any joint pain or swelling or erythema. neuropsych denies any weakness [facility] Medical History Anemia Anxiety Arthritis Cardiac pacemaker in situ Carpal tunnel syndrome CHF (congestive heart failure) Chronic heart failure with preserved ejection fraction (HFpEF) COPD exacerbation Coronary artery disease CVA (cerebral vascular accident) Diabetes Fall Gastritis Gastroparesis GERD (gastroesophageal reflux disease) Headache HLD (hyperlipidemia) HTN (hypertension) Hypocalcemia Hypoxia IBS (irritable bowel syndrome) Myocardial infarct Nausea and vomiting Renal failure T2DM (type 2 diabetes mellitus) UTI (urinary tract infection) Family History Father No problems noted. Mother Diabetes Hypercholesteremia Hypertension Stroke Surgical History H/O Achilles tendon repair History of appendectomy History of bladder surgery History of carpal tunnel release History of total hysterectomy with bilateral salpingo-oophorectomy (BSO) Hx of amputation Hx of CABG (~2019) Hx of cholecystectomy Hx of endoscopy Hx of knee surgery Hx of tonsillectomy Social History Household Members: Family Housing: Apartment Do you presently have visiting nurse or other home services: Yes (egg worker/vna) Alcohol intake: former Smoking Status: Never smoker Tobacco Type: Cigarette Years Smoked: 20 Smoked in Last 30 Days: No Second Hand Smoke Exposure: No Use of substances other than those prescribed or required for medical reasons: No Currently Displaying Signs/Symptoms of Drug Intoxication Withdrawal: No Have you been hit, kicked, punched, or otherwise hurt by someone within the past year? If so, by whom?: No Do you feel safe in your current relationship?: Yes Is there a partner from a previous relationship who is making you feel unsafe now?: No Are you made to feel afraid or neglected: No Religion Healthcare Practices: Restorationist Advance Directives: No Do you have thoughts of harming others: None Do you have a plan to hurt others: No Plan Recently lost weight without trying: Unsure service: No Current occupational status: disabled Meds Allergies Allergy/AdvReac Type Severity Reaction Status Date / Time tetracycline [Tetracycline] Allergy Mild HIVES, Verified 11/13/20 13:41 anaphylaxis, anaphylaxis Active Medications: Current Medications Generic Name Dose Route Start Last Admin Trade Name Freq PRN Reason Stop Dose Admin Albuterol Sulfate 2 puff 01/08/21 10:16 Albuterol Sulfate 90 Mcg 8 Gm Inhaler INHALE Q6H PRN Shortness Of Breath Allopurinol 100 mg 01/09/21 09:00 Allopurinol 100 Mg Tablet PO DAILY LAW Amlodipine Besylate 5 mg 01/09/21 09:00 Amlodipine Besylate 5 Mg Tablet PO DAILY [facility] Protocol Aspirin 81 mg 01/09/21 09:00 Aspirin Enteric Coated 81 Mg Tablet.Dr PO DAILY [facility] Atorvastatin Calcium 40 mg 01/08/21 21:00 Atorvastatin Calcium 40 Mg Tablet PO BEDTIME [facility] Clotrimazole 1 appl 01/08/21 21:00 Clotrimazole 1 % Cream 15 Gm Tube TOPICAL BID [facility] Protocol Enoxaparin Sodium 30 mg 01/08/21 10:30 Enoxaparin Sodium 30 Mg/0.3 Ml Syringe SUBCUT Q24H [facility] Ergocalciferol mcg 01/11/21 10:00 Ergocalciferol (Vitamin D2) 1,250 Mcg Capsule PO SA@1000 [facility] Famotidine 20 mg 01/08/21 10:16 Famotidine/Pf 20 Mg/2 Ml Vial IVPUSH Q12H [facility] Fluticasone/Vilanterol 1 puff 01/08/21 10:16 Fluticasone/Vilanterol 100/25 Blst.W.Dev INHALE DAILY PRN Shortness Of Breath Gabapentin 600 mg 01/08/21 15:00 Gabapentin 600 Mg Tablet PO TID [facility] Sodium Chloride 1,000 mls @ 50 mls/hr 01/08/21 10:30 Ns IVCONT .Q20H [facility] Lidocaine 1 patch 01/09/21 09:00 Lidocaine 4 % Patch Adh..Patch TRANSDERMA DAILY [facility] Protocol Lorazepam 0.5 mg 01/08/21 10:16 Lorazepam 0.5 Mg Tablet PO BID PRN Anxiety Metoprolol Succinate 50 mg 01/09/21 09:00 Metoprolol Succinate Er 50 Mg Tab.Er.24h PO DAILY [facility] Protocol Nitroglycerin 0.4 mg 01/08/21 10:16 Nitroglycerin 0.4 Mg Tab.Subl SUBLINGUAL Q5M PRN Chest Pain Non-Formulary Medication 325 mg 01/09/21 09:00 Ferrous Sulfate [Iron] PO DAILY [facility] Non-Formulary Medication 30 unit 01/08/21 11:30 Insulin Aspart U-100 [Novolog Flexpen U-100 Insulin] SUBCUT QIDACHS [facility] Non-Formulary Medication 5 unit 01/08/21 11:30 Insulin Aspart U-100 [Novolog Flexpen U-100 Insulin] SUBCUT TIDAC [facility] Non-Formulary Medication 5 mg 01/08/21 10:16 Melatonin PO BEDTIME PRN Sleep Non-Formulary Medication 500 mg 01/08/21 10:16 Methocarbamol PO QID PRN Spasms Non-Formulary Medication 150 mg 01/09/21 09:00 Venlafaxine PO DAILY [facility] Non-Formulary Medication 30 unit 01/09/21 09:00 Insulin Degludec [Tresiba Flextouch U-100] SUBCUT DAILY [facility] Omeprazole 20 mg 01/08/21 16:30 Omeprazole 20 Mg Capsule. PO BID@0630,1630 [facility] Ondansetron HCl 4 mg 01/08/21 10:16 Ondansetron Hcl 4 Mg/2 Ml Vial IVPUSH Q6H [facility] Oxycodone HCl 5 mg 01/08/21 10:16 Oxycodone Hcl Immed Release 5 Mg Tablet PO Q6H PRN Pain (Scale Score 4-6) Pharmacy Consult 1 each 01/08/21 06:40 Consult Rx Perform Med Rec MISCELLANE ONCE PRN Consult order Sodium Chloride 3 ml 01/08/21 16:00 0.9 % Sodium Chloride Flush 3 Ml Syringe IVFLUSH QSHIFT [facility] Sucralfate 1 gm 01/09/21 09:00 Sucralfate 1 Gm Tablet PO DAILY [facility] Tamsulosin HCl 0.4 mg 01/08/21 17:00 Tamsulosin Hcl 0.4 Mg Capsule PO DAILY@1700 [facility] Home Medications Medication Instructions Recorded Confirmed Last Taken Type lorazepam 0.5 mg PO BID PRN 09/14/20 01/08/21 Unknown History Breo Ellipta 1 inh INHALATION DAILY PRN 09/16/20 01/08/21 Unknown History albuterol sulfate 2 puff INHALATION Q6H PRN 09/16/20 01/08/21 Unknown History allopurinol 100 mg PO DAILY 09/16/20 01/08/21 01/07/21 History aspirin 81 mg PO DAILY 09/16/20 01/08/21 01/07/21 History atorvastatin 40 mg PO BEDTIME 09/16/20 01/08/21 01/07/21 History gabapentin 600 mg PO TID 09/16/20 01/08/21 01/07/21 History metoprolol succinate [Toprol XL] 50 mg PO DAILY 09/16/20 01/08/21 01/07/21 History omeprazole 20 mg PO BID@0630,1630 09/16/20 01/08/21 01/07/21 History venlafaxine 150 mg PO DAILY 09/16/20 01/08/21 01/07/21 History insulin degludec 100 unit/mL (3 40 unit SUBCUT DAILY ml 11/13/20 01/08/21 01/07/21 History mL) subcutaneous pen amlodipine 5 mg PO DAILY 12/22/20 01/08/21 01/07/21 History diclofenac sodium 1 ea TOPICAL BID 12/22/20 01/08/21 01/07/21 History ergocalciferol (vitamin D2) 1 cap PO SA@1000 12/22/20 01/08/21 01/04/21 History ferrous sulfate [iron] 325 mg PO DAILY 12/22/20 01/08/21 01/07/21 History tamsulosin 0.4 mg PO DAILY@1700 12/22/20 01/08/21 01/07/21 History acetaminophen 500 mg PO Q6H PRN 01/08/21 01/08/21 Unknown History clotrimazole 1 appl TOPICAL BID 01/08/21 01/08/21 01/07/21 History insulin aspart U-100 [Novolog 5 unit SUBCUT TIDAC 01/08/21 01/08/21 01/07/21 History Flexpen U-100 Insulin] insulin aspart U-100 [Novolog See Protocol SUBCUT QIDACHS 01/08/21 01/08/21 Unknown History Flexpen U-100 Insulin] loperamide 2 mg PO QID PRN 01/08/21 01/08/21 Unknown History melatonin 5 mg PO BEDTIME PRN 01/08/21 01/08/21 Unknown History methocarbamol 500 mg PO QID PRN 01/08/21 01/08/21 Unknown History nitroglycerin 0.4 mg SUBLINGUAL Q5M PRN 01/08/21 01/08/21 Unknown History oxycodone 5 mg PO Q6H PRN 01/08/21 01/08/21 Unknown History sucralfate 1 g PO DAILY 01/08/21 01/08/21 01/07/21 History Physical Exam Vital Signs and Narrative: Vital Signs: Last Vital Signs Temp 99.2 F 01/08/21 07:44 Pulse 79 01/08/21 09:38 Resp 14 01/08/21 09:38 BP 166/76 H 01/08/21 09:38 Pulse Ox 97 01/08/21 07:44 Body Mass Index 29.2 Physical exam: Constitutional: Not in acute distress, but having significant nausea HEENT: Eyes: Anicteric, no discharge Neck: Supple Cvs: rrr, [id number] , no murmur res: clear to auscultation ,no rhonchii or wheezing abd: no rebound or guarding ,nt, bs present. ext pulses present , no cyanosis neuro: axo3 , nonfocal. Results Labs CBC and Chem 7: 01/09/21 05:34 01/09/21 05:34 Labs: Laboratory Results - last 24 hr 01/08/21 01/08/21 01/08/21 03:07 03:26 03:26 MCV 84.5 MCH 27.3 MCHC 32.3 RDW 14.9 Plt Count 311 MPV 10.2 Immature Gran % (Auto) 0.7 H Neut % (Auto) 76.9 H Lymph % (Auto) 13.6 L [place] % (Auto) 8.0 Eos % (Auto) 0.7 Baso % (Auto) 0.1 Lymph # (Auto) 1.0 L [place] # (Auto) 0.6 Eos # (Auto) 0.1 Baso # (Auto) 0.0 Abs Immat Gran (auto) 0.05 H Absolute Neuts (auto) 5.8 Absolute Nucleated RBC 0.000 Nucleated RBC % (auto) 0.0 Hold Blue Top SEE NOTE Anion Gap Estim Creat Clear Calc Estimated GFR POC Glucose 467 H* Random Glucose Calcium Magnesium Total Bilirubin Direct Bilirubin AST ALT Alkaline Phosphatase Troponin I High Sens Total Protein Albumin Lipase 01/08/21 01/08/21 01/08/21 03:26 03:26 04:44 MCV MCH MCHC RDW Plt Count MPV Immature Gran % (Auto) Neut % (Auto) Lymph % (Auto) [place] % (Auto) Eos % (Auto) Baso % (Auto) Lymph # (Auto) [place] # (Auto) Eos # (Auto) Baso # (Auto) Abs Immat Gran (auto) Absolute Neuts (auto) Absolute Nucleated RBC Nucleated RBC % (auto) Hold Blue Top Anion Gap 13 Estim Creat Clear Calc 30.9 Estimated GFR 29 POC Glucose 249 H Random Glucose 547 H* Calcium 8.8 Magnesium 1.7 Total Bilirubin 0.6 Direct Bilirubin 0.2 AST 17 ALT 19 Alkaline Phosphatase 111 Troponin I High Sens 35.0 H Total Protein 7.1 Albumin 3.5 Lipase 24 01/08/21 01/08/21 07:29 09:35 MCV MCH MCHC RDW Plt Count MPV Immature Gran % (Auto) Neut % (Auto) Lymph % (Auto) [place] % (Auto) Eos % (Auto) Baso % (Auto) Lymph # (Auto) [place] # (Auto) Eos # (Auto) Baso # (Auto) Abs Immat Gran (auto) Absolute Neuts (auto) Absolute Nucleated RBC Nucleated RBC % (auto) Hold Blue Top Anion Gap Estim Creat Clear Calc Estimated GFR POC Glucose 292 H 252 H Random Glucose Calcium Magnesium Total Bilirubin Direct Bilirubin AST ALT Alkaline Phosphatase Troponin I High Sens Total Protein Albumin Lipase Imaging Radiologist's Impressions: Impressions Abdomen/Pelvis CT 01/08/21 03:12 IMPRESSION: 1. No bowel obstruction. No inflammatory changes. 2. Small left rectus sheath hematoma. Assessment and Plan (1) Gastroparesis: Status: Acute (2) Vomiting: Qualifiers: Nausea presence: with nausea Vomiting Intractability: intractable Vomiting type: unspecified Qualified Code(s): R11.2 - Nausea with vomiting, unspecified Status: Acute (3) ISA (acute kidney injury): Status: Acute (4) Hematoma: Status: Acute 60-year-old female with past medical history as mentioned above who presents to the hospital shortness of breath found to have elevated BNP and most likely as CHF exacerbation 1. Possible diabetic gastroparesis: Patient was started on IV Zofran, also received metoclopramide in the more ED-nausea/vomiting slightly better but still could not able to tolerate food Will continue Zofran, add Pepcid, lidocaine patch, if needed we also add p.r.n. metoclopramide. Need tight diabetic control. 2. Hypertension:- stable, will continue amlodipine, 3. history of COPD- no acute exacerbation, will continue home inhalers 4. diabetes mellitus: Initially fingersticks were in 400 range Clear liquid diet, continue home insulin regimen.fs with sliding scale coverage 5. isa ? : PO free water, gentle hydration -moniter bmp. 5. Patient has a small rectal sheath hematoma: Will avoid DVT chemoprophylaxis, will add mechanical devices.
[2021-01-08] MEDS: 0.9 % Sodium Chloride 1,000 ML 50 ML IVCONT (11:13)
[2021-01-08] MEDS: Famotidine/PF 20 MG/2 ML VIAL IVPUSH ×2 (11:14→22:53)
[2021-01-08] MEDS: Enoxaparin Sodium 30 MG/0.3 ML SYRINGE SUBCUT (11:14)
[2021-01-08 12:27] LABS: Glucose, Whole Blood 250 mg/dL (60-115)
[2021-01-08] MEDS: amLODIPine Besylate 5 MG TABLET PO (12:30)
[2021-01-08] MEDS: Gabapentin 600 MG TABLET PO ×2 (16:07→22:52)
[2021-01-08] MEDS: Omeprazole 20 MG CAPSULE.DR PO (16:08)
[2021-01-08] MEDS: Tamsulosin HCL 0.4 MG CAPSULE PO (16:08)
[2021-01-08 16:24] LABS: Glucose, Whole Blood 259 mg/dL (60-115)
[2021-01-08 16:55] LABS: COVID-19 Test Negative (Negative)
[2021-01-08 18:09] LABS: Glucose, Whole Blood 255 mg/dL (60-115)
[2021-01-08] MEDS: Insulin Lispro 100 UNIT/ML 3 ML VIAL SUBCUT (18:14)
--- NOTE | 2021-01-08 22:30 | PC.NURSE ---
PATIENT BLOOD SUGAR IS 106, NO INSULIN COVERAGE
[2021-01-08] MEDS: Atorvastatin Calcium 40 MG TABLET PO (22:53)
[2021-01-09] VITALS (8 sets, daily range): BP systolic 94–165; BP diastolic 52–79; PULSE 72–88; RESP 16–18; TEMP 36.1–36.8; O2SAT 93–98
[2021-01-09] MEDS: 0.9 % Sodium Chloride Flush 3 ML SYRINGE IVFLUSH ×2 (00:42→16:08)
[2021-01-09] MEDS: ondansetron HCL 4 MG/2 ML VIAL IVPUSH ×4 (04:09→21:32)
[2021-01-09] MEDS: Omeprazole 20 MG CAPSULE.DR PO ×2 (05:52→16:07)
[2021-01-09] MEDS: oxyCODONE HCl Immed Release 5 MG TABLET PO ×2 (05:52→22:05)
[2021-01-09 06:10] LABS: Hematocrit 34.2 % (37-47)
[2021-01-09] MEDS: 0.9 % Sodium Chloride 1,000 ML 50 ML IVCONT (06:34)
[2021-01-09 06:43] LABS: Anion Gap 12 (12-20); Blood Urea Nitrogen 13 mg/dL (9-16); Calcium 7.4 mg/dL (8.4-10.2); Carbon Dioxide 27 mmol/L (22-29); Chloride 103 mmol/L (96-108); Creatinine Clr Calc Pharmacy 39.4; Estimated Glomerular Filt Rate 39; Glucose Random 173 mg/dL (60-115); Potassium 3.5 mmol/L (3.3-5.1); Sodium 138 mmol/L (135-145)
[2021-01-09 06:59] LABS: Glucose, Whole Blood 106 mg/dL (60-115)
[2021-01-09 08:21] LABS: Glucose, Whole Blood 165 mg/dL (60-115)
[2021-01-09] MEDS: Insulin Glargine,Hum.rec.anlog 100 UNIT/ML 10 ML VIAL 25 UNIT SUBCUT (08:34)
[2021-01-09] MEDS: Insulin Lispro 100 UNIT/ML 3 ML VIAL SUBCUT ×3 (08:35→21:32)
[2021-01-09] MEDS: Sucralfate 1 GM TABLET PO (08:36)
[2021-01-09] MEDS: Gabapentin 600 MG TABLET PO ×3 (08:37→21:31)
[2021-01-09] MEDS: Metoprolol Succinate ER 50 MG TAB.ER.24H PO (08:38)
[2021-01-09] MEDS: amLODIPine Besylate 5 MG TABLET PO (08:38)
[2021-01-09] MEDS: allopurinoL 100 MG TABLET PO (08:38)
[2021-01-09] MEDS: Venlafaxine HCl ER 150 MG CAP.ER.24H PO (08:38)
[2021-01-09] MEDS: Ferrous Sulfate 324 MG TABLET.DR PO (08:38)
[2021-01-09] MEDS: Aspirin Enteric Coated 81 MG TABLET.DR PO (08:38)
[2021-01-09] MEDS: Lidocaine 4 % Patch ADH..PATCH 1 PATCH TRANSDERMA (08:39)
[2021-01-09] MEDS: Famotidine/PF 20 MG/2 ML VIAL IVPUSH ×2 (10:50→21:32)
[2021-01-09] MEDS: Enoxaparin Sodium 30 MG/0.3 ML SYRINGE SUBCUT (10:56)
[2021-01-09 11:21] LABS: Glucose, Whole Blood 162 mg/dL (60-115)
--- NOTE | 2021-01-09 11:30 | PM.DS ---
DS: Providers Provider Date of Service: 01/10/21 Date of admission: 01/08/21 10:21 Primary care physician: Unknown Physician DS: Diagnosis Discharge Diagnosis (1) Gastroparesis: Status: Acute (2) Vomiting: Status: Acute (3) ISA (acute kidney injury): Status: Acute DS: Medications Discharge Medications Home Medications: Home Medications Medication Instructions Recorded Confirmed lorazepam 0.5 mg PO BID PRN 09/14/20 01/08/21 Breo Ellipta 1 inh INHALATION DAILY PRN 09/16/20 01/08/21 albuterol sulfate 2 puff INHALATION Q6H PRN 09/16/20 01/08/21 allopurinol 100 mg PO DAILY 09/16/20 01/08/21 aspirin 81 mg PO DAILY 09/16/20 01/08/21 atorvastatin 40 mg PO BEDTIME 09/16/20 01/08/21 gabapentin 600 mg PO TID 09/16/20 01/08/21 metoprolol succinate [Toprol XL] 50 mg PO DAILY 09/16/20 01/08/21 omeprazole 20 mg PO BID@0630,1630 09/16/20 01/08/21 venlafaxine 150 mg PO DAILY 09/16/20 01/08/21 insulin degludec 100 unit/mL (3 40 unit SUBCUT DAILY ml 11/13/20 01/08/21 mL) subcutaneous pen amlodipine 5 mg PO DAILY 12/22/20 01/08/21 diclofenac sodium 1 ea TOPICAL BID 12/22/20 01/08/21 ergocalciferol (vitamin D2) 1 cap PO SA@1000 12/22/20 01/08/21 ferrous sulfate [iron] 325 mg PO DAILY 12/22/20 01/08/21 tamsulosin 0.4 mg PO DAILY@1700 12/22/20 01/08/21 acetaminophen 500 mg PO Q6H PRN 01/08/21 01/08/21 clotrimazole 1 appl TOPICAL BID 01/08/21 01/08/21 insulin aspart U-100 [Novolog 5 unit SUBCUT TIDAC 01/08/21 01/08/21 Flexpen U-100 Insulin] insulin aspart U-100 [Novolog See Protocol SUBCUT QIDACHS 01/08/21 01/08/21 Flexpen U-100 Insulin] loperamide 2 mg PO QID PRN 01/08/21 01/08/21 melatonin 5 mg PO BEDTIME PRN 01/08/21 01/08/21 methocarbamol 500 mg PO QID PRN 01/08/21 01/08/21 nitroglycerin 0.4 mg SUBLINGUAL Q5M PRN 01/08/21 01/08/21 oxycodone 5 mg PO Q6H PRN 01/08/21 01/08/21 sucralfate 1 g PO DAILY 01/08/21 01/08/21 Previous Rx's Medication Instructions Recorded furosemide 40 mg tablet 40 mg PO DAILY #90 tab 12/06/20 ondansetron HCl [Zofran] 4 mg PO Q8H PRN #10 tab 01/07/21 DS: Summary Hospital Course Hospital Course: 60-year-old female with past medical history of coronary artery disease status post CABG, diabetes, hypertension, gout, depression, COPD who presents to the hospital with complaints few days of nausea or vomiting at least a week at per the patient she said she was recently in [place] in the beginning of this month and where she started to having these symptoms after eating eggs and bread: And she went to the hospital in [place] for 2 times for above complaints. She says currently she is having nausea or vomiting intractably. Also has some epigastric discomfort otherwise denies any diarrhea or fever or chills or weakness or numbness. Lab imaging reviewed:? isa bun/cr : 18/1.76 , elevated fs 400's range, no leucocytosis abnormal ua : wbc: 5-9, nitrite positive CT of the abdomen: No bowel obstruction, small rectus sheath hematoma. cxr yesteday: neg. PMHX: Anxiety, arthritis, asthma, CADs/p CABG, Carpal tunnel syndrome, CVA, Depression, Diabetic gastroparesis, Fibromyalgia, Gastritis, GERD, Headaches, HTN, IBS, DM, Kidney disease, Left foot amputation, [place] 2011, Neuropathy, Urinary bladder stimulater, Vertigo. Hospital course: 1. Possible diabetic gastroparesis: Patient was started on IV Zofran, Pepcid, lidocaine patch. seems improved with supportive care. Subsequently patient seems to improved and going home with p.r.n. use Zofran. Further management outpatient as per PCP. Consider outpatient GI evaluation for diabetic gastroparesis. 2. This is a change from prior CT and is consistent with a small rectus sheath hematoma: As per the patient she was told in the fluid the about the same issue, will hold aspirin for a week or so and patient is to follow-up with PCP we CBC monitoring and Further management as per PCP, consider outpatient reimaging as per PCP. 3. isa ? : PO free water, gentle hydration-seems improved . Above management discussed with the patient in detail length she understand and in agreement with the above plan, time spent 50 minutes and 50% time spent on counseling. Significant findings: As above. Procedures performed: None. Treatment and response: As above. Complications: None. Time Spent with Patient Time attestation: Total time spent providing and/or coordinating discharge services: Discharge coordination time: Greater than 30 minutes Physical Exam Vital Signs: Vital Signs: Last Vital Signs Temp 97.4 F 01/09/21 07:48 Pulse 88 01/09/21 07:48 Resp 18 01/09/21 07:48 BP 165/77 H 01/09/21 07:48 Pulse Ox 96 01/09/21 07:48 Body Mass Index 29.2 Physical exam: Constitutional: Not in acute distress. HEENT: Eyes: Anicteric, no discharge Neck: Supple Cvs: rrr, [id number] , no murmur res: clear to auscultation ,no rhonchii or wheezing abd: no rebound or guarding ,nt, bs present. ext pulses present , no cyanosis neuro: axo3 , nonfocal. DS: Data Data Completed and Pending Completed studies during hospitalization [Text1]: Procedures Insertion of Infusion Device into Right Basilic Vein, Percutaneous Approach (10/31/20) Transfusion of Nonautologous Red Blood Cells into Peripheral Vein, Percutaneous Approach (10/31/20) Labs on day of discharge: Laboratory Results - last 24 hr 01/08/21 01/08/21 01/08/21 12:24 16:20 16:25 Hgb Hct Sodium Potassium Chloride Carbon Dioxide Anion Gap BUN Creatinine Estim Creat Clear Calc Estimated GFR POC Glucose 250 H 259 H Random Glucose Calcium COVID-19 ([facility]) Negative COVID-19 Clin Com See Note 01/08/21 01/09/21 01/09/21 18:05 05:34 05:34 Hgb 11.0 L Hct 34.2 L Sodium 138 Potassium 3.5 Chloride 103 Carbon Dioxide 27 Anion Gap 12 BUN 13 Creatinine 1.38 Estim Creat Clear Calc 39.4 Estimated GFR 39 POC Glucose 255 H Random Glucose 173 H D Calcium 7.4 L D COVID-19 ([facility]) COVID-19 Clin Com 01/09/21 01/09/21 07:46 11:17 Hgb Hct Sodium Potassium Chloride Carbon Dioxide Anion Gap BUN Creatinine Estim Creat Clear Calc Estimated GFR POC Glucose 165 H 162 H Random Glucose Calcium COVID-19 ([facility]) COVID-19 Clin Com Discharge Plan Discharge Patient Disposition: Home Health Service Referrals: [facility] [Outside] Shaneka Burton DO [Physician] - 1 Week (Please call and schedule a follow up appointment.) Discharge Medications: New ondansetron HCl [Zofran] 4 mg tablet 4 mg PO Q8H Qty: 8 RF: 0 Continued furosemide 40 mg tablet 40 mg PO DAILY Qty: 90 RF: 3 lorazepam 0.5 mg Tablet 0.5 mg PO BID PRN (Reason: Anxiety) RF: 0 atorvastatin 40 mg Tablet 40 mg PO BEDTIME RF: 0 gabapentin 600 mg Tablet 600 mg PO TID RF: 0 metoprolol succinate [Toprol XL] 50 mg Tablet Extended Release 24 Hr 50 mg PO DAILY RF: 0 allopurinol 100 mg Tablet 100 mg PO DAILY RF: 0 omeprazole 20 mg Capsule,Delayed Release(Dr/Ec) 20 mg PO BID@0630,1630 RF: 0 albuterol sulfate 90 mcg/actuation Hfa Aerosol Inhaler 2 puff INHALATION Q6H PRN (Reason: Shortness Of Breath) RF: 0 venlafaxine 150 mg Tablet Extended Release 24hr 150 mg PO DAILY RF: 0 Breo Ellipta 100-25 mcg/dose Blister With Device 1 inh INHALATION DAILY PRN (Reason: Shortness Of Breath) RF: 0 tamsulosin 0.4 mg capsule 0.4 mg PO DAILY@1700 RF: 0 ferrous sulfate [iron] 325 mg (65 mg iron) Tablet 325 mg PO DAILY RF: 0 ergocalciferol (vitamin D2) 1,250 mcg (50,000 unit) capsule 1 cap PO SA@1000 RF: 0 amlodipine 5 mg tablet 5 mg PO DAILY RF: 0 ondansetron HCl [Zofran] 4 mg tablet 4 mg PO Q8H PRN (Reason: nausea and vomiting) Qty: 10 RF: 0 clotrimazole 1 % Cream 1 appl TOPICAL BID RF: 0 insulin aspart U-100 [Novolog Flexpen U-100 Insulin] 100 unit/mL (3 mL) Insulin Pen 5 unit SUBCUT TIDAC RF: 0 insulin aspart U-100 [Novolog Flexpen U-100 Insulin] 100 unit/mL (3 mL) Insulin Pen See Protocol unit SUBCUT QIDACHS RF: 0 loperamide 2 mg Tablet 2 mg PO QID PRN (Reason: Diarrhea) RF: 0 acetaminophen 500 mg Tablet 500 mg PO Q6H PRN (Reason: Pain (Scale Score 1-3)) RF: 0 nitroglycerin 0.4 mg Tablet, Sublingual 0.4 mg SUBLINGUAL Q5M PRN (Reason: Chest Pain) RF: 0 oxycodone 5 mg Tablet 5 mg PO Q6H PRN (Reason: Pain (Scale Score 4-6)) RF: 0 methocarbamol 500 mg Tablet 500 mg PO QID PRN (Reason: Spasms) RF: 0 sucralfate 1 gram Tablet 1 g PO DAILY RF: 0 melatonin 5 mg Tablet 5 mg PO BEDTIME PRN (Reason: Sleep) RF: 0 Tresiba FlexTouch U-100 100 unit/mL (3 mL) insulin pen 40 unit subcut DAILY RF: 0 Held aspirin 81 mg Tablet,Delayed Release (Dr/Ec) 81 mg PO DAILY RF: 0 Hold Instructions: Resume on 01/13/21. diclofenac sodium 1 % gel 1 ea topical BID RF: 0 Hold Instructions: Resume on 01/13/21. Discharge Orders: Discharge Order (Routine); Ordered 01/09/21 Ordered By: Elvia Del Rio Diet: advance to usual diet and diabetic diet Activity on Discharge: As tolerated Stand Alone Forms: Patient Portal Discharge page Other Ambulatory Orders: Basic Metabolic Panel Fasting (Routine) Timeframe: 1 Week Facility: [facility] - Location: Laboratory Ordered By: Elvia Del Rio Complete Blood Count no Diff (Routine) Timeframe: 1 Week Facility: [facility] - Location: Laboratory Ordered By: Elvia Del Rio Visit Report Forms: Patient Portal Discharge page Care Plan Goals: Patient came with nausea vomiting persistent-found to have gastroparesis probably related to diabetes. Patient was given supportive care with hydration/Zofran/Reglan: Subsequently patient seems to improved and going home with p.r.n. use Zofran. Further management outpatient as per PCP. Consider outpatient GI evaluation for diabetic gastroparesis. This is a change from prior CT and is consistent with a small rectus sheath hematoma: As per the patient she was told in the fluid the about the same issue, will hold aspirin for a week or so and patient is to follow-up with PCP we CBC monitoring and Further management as per PCP, consider outpatient reimaging as per PCP. Health Concerns: As above. Plan of Treatment: As above.
--- NOTE | 2021-01-09 11:39 | MHC.CM.PN ---
HOME WITH RESUMPTION OF HER [facility] AND MEDICAID SERVICE COORDINATOR SERVICES. RN AWARE OF PLAN. IMM 01/09 IN CHART.
--- NOTE | 2021-01-09 11:46 | MHC.CM.PN ---
PATIENT HAS ASSEMBLER BILLIARD TABLE COMPUTER RECYCLING WORKER SERVICES THROUGH [facility] AND NURSING THROUGH [facility]. REFERRAL PLACED TO AGENCY WHO IS NOW AWARE OF PATIENT DC. PATIENT USES A WALKER FOR AMBULATION ASSIST. COMPUTER RECYCLING WORKER WILL TRANSPORT PATIENT HOME. IMM 01/09 IN CHART.
--- NOTE | 2021-01-09 11:54 | MHC.CM.PN ---
PCP IS DR ADELA BETHEA OF [facility] IN [facility], [place] [phone]. UPDATE MADE IN [employer] QUICK TASK. IMM 01/09 IN CHART
--- NOTE | 2021-01-09 13:49 | PC.NURSE ---
pt up to cammode, during bowel movement, pt became unresponsive, after ~a minute w/ sternal rubs pt became arousable, able to respond to name and state location and situation. VSS 94/52, HR 72, 98% on RA. aware and saw pt. pt now resting comfortably, stated this has happened to her in the past when attempting BM. will cont to monitor and assess.
--- NOTE | 2021-01-09 14:21 | P.PNIM_ITS ---
Subjective Subjective Date of Service: 01/09/21 Interval History: Possible vasovagal episode Review of Systems Patient was sitting on the commode and after the bowel movement she was had 1 brief episode of unresponsiveness, subsequently she woke up and oriented, denies any weakness or numbness. As per the staff no episode of seizure or any chest pain or shortness of breath or palpitation before during or after the shortness. Physical Exam Vital Signs: Vital Signs: Last Vital Signs Temp 97.4 F 01/09/21 07:48 Pulse 72 01/09/21 13:48 Resp 18 01/09/21 07:48 BP 94/52 L 01/09/21 13:48 Pulse Ox 98 01/09/21 13:48 Body Mass Index 29.2 Physical exam: Constitutional: Not in acute distress. Cvs: rrr, [id number] , no murmur res: clear to auscultation ,no rhonchii or wheezing abd: no rebound or guarding ,nt, bs present. ext pulses present , no cyanosis neuro: axo3 , nonfocal. Objective Data Current Medications Generic Name Dose Route Start Last Admin Trade Name Freq PRN Reason Stop Dose Admin Albuterol Sulfate 2 puff 01/08/21 10:16 Albuterol Sulfate 90 Mcg 8 Gm Inhaler INHALE Q6H PRN Shortness Of Breath Allopurinol 100 mg 01/09/21 09:00 01/09/21 08:38 Allopurinol 100 Mg Tablet PO 100 mg DAILY LAW Administration Amlodipine Besylate 5 mg 01/09/21 09:00 01/09/21 08:38 Amlodipine Besylate 5 Mg Tablet PO 5 mg DAILY LAW Administration Protocol Aspirin 81 mg 01/09/21 09:00 01/09/21 08:38 Aspirin Enteric Coated 81 Mg Tablet. PO 81 mg DAILY LAW Administration Atorvastatin Calcium 40 mg 01/08/21 21:00 01/08/21 22:53 Atorvastatin Calcium 40 Mg Tablet PO 40 mg BEDTIME LAW Administration Clotrimazole 1 appl 01/08/21 21:00 01/09/21 08:45 Clotrimazole 1 % Cream 15 Gm Tube TOPICAL Not Given BID [facility] Protocol Cyclobenzaprine HCl 10 mg 01/08/21 10:49 Cyclobenzaprine Hcl 10 Mg Tablet PO BID PRN Spasms Enoxaparin Sodium 30 mg 01/08/21 10:30 01/09/21 10:56 Enoxaparin Sodium 30 Mg/0.3 Ml Syringe SUBCUT 30 mg Q24H LAW Administration Ergocalciferol 1,250 mcg 01/11/21 10:00 Ergocalciferol (Vitamin D2) 1,250 Mcg Capsule PO SA@1000 LAW Famotidine 20 mg 01/08/21 10:16 01/09/21 10:50 Famotidine/Pf 20 Mg/2 Ml Vial IVPUSH 20 mg Q12H LAW Administration Ferrous Sulfate 324 mg 01/09/21 09:00 01/09/21 08:38 Ferrous Sulfate 324 Mg Tablet. PO 324 mg DAILY LAW Administration Fluticasone/Vilanterol 1 puff 01/08/21 10:16 Fluticasone/Vilanterol 100/25 Blst.W.Dev INHALE DAILY PRN Shortness Of Breath Gabapentin 600 mg 01/08/21 15:00 01/09/21 08:37 Gabapentin 600 Mg Tablet PO 600 mg TID LAW Administration Sodium Chloride 1,000 mls @ 50 mls/hr 01/08/21 10:30 01/09/21 06:34 Ns IVCONT 50 mls/hr .Q20H LAW Administration Insulin Glargine 25 unit 01/09/21 09:00 01/09/21 08:34 Insulin Glargine,Hum.Rec.Anlog 100 Unit/Ml 10 Ml Vial SUBCUT 25 unit DAILY LAW Administration Insulin Human Lispro 0 unit 01/08/21 11:30 01/09/21 12:38 Insulin Lispro 100 Unit/Ml 3 Ml Vial SUBCUT 2 unit QIDACHS [facility] Administration Protocol Lidocaine 1 patch 01/09/21 09:00 01/09/21 08:39 Lidocaine 4 % Patch Adh..Patch TRANSDERMA 1 patch DAILY [facility] Administration Protocol Lorazepam 0.5 mg 01/08/21 10:16 Lorazepam 0.5 Mg Tablet PO BID PRN Anxiety Melatonin 6 mg 01/08/21 10:52 Melatonin 3 Mg Tablet PO BEDTIME PRN Sleep Metoprolol Succinate 50 mg 01/09/21 09:00 01/09/21 08:38 Metoprolol Succinate Er 50 Mg Tab.Er.24h PO 50 mg DAILY LAW Administration Protocol Nitroglycerin 0.4 mg 01/08/21 10:16 Nitroglycerin 0.4 Mg Tab.Subl SUBLINGUAL Q5M PRN Chest Pain Omeprazole 20 mg 01/08/21 16:30 01/09/21 05:52 Omeprazole 20 Mg Capsule.Dr PO 20 mg BID@0630,1630 LAW Administration Ondansetron HCl 4 mg 01/08/21 10:16 01/09/21 10:50 Ondansetron Hcl 4 Mg/2 Ml Vial IVPUSH 4 mg Q6H LAW Administration Oxycodone HCl 5 mg 01/08/21 10:16 01/09/21 05:52 Oxycodone Hcl Immed Release 5 Mg Tablet PO 5 mg Q6H PRN Administration Pain (Scale Score 4-6) Pharmacy Consult 1 each 01/08/21 06:40 Consult Rx Perform Med Rec MISCELLANE ONCE PRN Consult order Sodium Chloride 3 ml 01/08/21 16:00 01/09/21 08:40 0.9 % Sodium Chloride Flush 3 Ml Syringe IVFLUSH Not Given QSHIFT [facility] Sucralfate 1 gm 01/09/21 09:00 01/09/21 08:36 Sucralfate 1 Gm Tablet PO 1 gm DAILY LAW Administration Tamsulosin HCl 0.4 mg 01/08/21 17:00 01/08/21 16:08 Tamsulosin Hcl 0.4 Mg Capsule PO 0.4 mg DAILY@1700 LAW Administration Venlafaxine HCl 150 mg 01/09/21 09:00 01/09/21 08:38 Venlafaxine Hcl Er 150 Mg Cap.Er.24h PO 150 mg DAILY LAW Administration Labs CBC & Chem 7: 01/09/21 05:34 01/09/21 05:34 Assessment and Plan (1) CHF exacerbation: Status: Resolved Assessment and Plan: 60-year-old female with past medical history as mentioned above who presents to the hospital shortness of breath found to have elevated BNP and most likely as CHF exacerbation 1. Possible diabetic gastroparesis: Started on IV Zofran, metoclopramide , gentle hydration-patient seems to be improved Advisable episode as above, we will monitor blood pressure closely Fingersticks were in 160 range She was quickly oriented Will continue to monitor. 2. Hypertension:- stable, will continue amlodipine, 3. history of COPD- no acute exacerbation, will continue home inhalers 4. diabetes mellitus: Initially fingersticks were in 400 range dm diet, continue home insulin regimen.fs with sliding scale coverage 5. raquel ? : PO free water, gentle hydration -seems improved .
[2021-01-09] MEDS: Tamsulosin HCL 0.4 MG CAPSULE PO (16:07)
[2021-01-09 16:33] LABS: Glucose, Whole Blood 139 mg/dL (60-115)
[2021-01-09 20:30] LABS: Glucose, Whole Blood 216 mg/dL (60-115)
[2021-01-09] MEDS: Atorvastatin Calcium 40 MG TABLET PO (21:31)
[2021-01-10] MEDS: 0.9 % Sodium Chloride 1,000 ML 50 ML IVCONT (03:55)
[2021-01-10 03:59] VITALS: BP 149/72; PULSE 74; RESP 18; TEMP 36.4; O2SAT 93
[2021-01-10] MEDS: ondansetron HCL 4 MG/2 ML VIAL IVPUSH ×2 (04:21→09:00)
[2021-01-10] MEDS: Omeprazole 20 MG CAPSULE.DR PO (06:04)
[2021-01-10 07:43] VITALS: BP 140/69; PULSE 75; RESP 18; TEMP 36.3; O2SAT 92
[2021-01-10 08:28] LABS: Glucose, Whole Blood 185 mg/dL (60-115)
[2021-01-10] MEDS: Famotidine/PF 20 MG/2 ML VIAL IVPUSH (09:00)
[2021-01-10] MEDS: Enoxaparin Sodium 30 MG/0.3 ML SYRINGE SUBCUT (09:00)
[2021-01-10] MEDS: Insulin Lispro 100 UNIT/ML 3 ML VIAL SUBCUT ×2 (09:00→12:37)
[2021-01-10] MEDS: Aspirin Enteric Coated 81 MG TABLET.DR PO (09:01)
[2021-01-10] MEDS: Metoprolol Succinate ER 50 MG TAB.ER.24H PO (09:01)
[2021-01-10] MEDS: amLODIPine Besylate 5 MG TABLET PO (09:01)
[2021-01-10] MEDS: Venlafaxine HCl ER 150 MG CAP.ER.24H PO (09:01)
[2021-01-10] MEDS: Lidocaine 4 % Patch ADH..PATCH 1 PATCH TRANSDERMA (09:01)
[2021-01-10] MEDS: Ferrous Sulfate 324 MG TABLET.DR PO (09:01)
[2021-01-10] MEDS: Sucralfate 1 GM TABLET PO (09:01)
[2021-01-10] MEDS: Insulin Glargine,Hum.rec.anlog 100 UNIT/ML 10 ML VIAL 25 UNIT SUBCUT (09:01)
[2021-01-10] MEDS: allopurinoL 100 MG TABLET PO (09:01)
[2021-01-10] MEDS: oxyCODONE HCl Immed Release 5 MG TABLET PO (09:06)
[2021-01-10] MEDS: Gabapentin 600 MG TABLET PO (09:50)
[2021-01-10] MEDS: 0.9 % Sodium Chloride Flush 3 ML SYRINGE IVFLUSH (09:51)
[2021-01-10 11:23] VITALS: BP 120/59; PULSE 73; RESP 18; TEMP 36.7; O2SAT 93
[2021-01-10 12:04] LABS: Glucose, Whole Blood 188 mg/dL (60-115)
== END 2021-01-10 14:23 | disposition home health service (06) | DRG 74 ==
LOC: HO.ED 01-08 06:49 → HO.EDOVER 01-08 10:27 → HO.IMC 01-08 16:41 → HO.S3 01-08 17:52 → HO.IMC 01-08 17:57 → HO.EDOVER 01-08 20:59 → HO.S3 01-09 00:45
PROVIDERS: Nurse Practitioner Family; Student in an Organized Health Care Education/Training Program; Admitting Provider Internal Medicine; Emergency Provider Emergency Medicine; PCP Internal Medicine; Visit Provider Internal Medicine
DX: E11.43 Type 2 diabetes mellitus with diabetic autonomic (poly)neuropathy (principal); N17.9 Acute kidney failure, unspecified; I50.32 Chronic diastolic (congestive) heart failure; K31.84 Gastroparesis; I25.10 Atherosclerotic heart disease of native coronary artery without angina pectoris; I11.0 Hypertensive heart disease with heart failure; M79.81 Nontraumatic hematoma of soft tissue; Z95.1 Presence of aortocoronary bypass graft; Z20.822 Contact with and (suspected) exposure to COVID-19; Z95.0 Presence of cardiac pacemaker; Z87.891 Personal history of nicotine dependence; Z79.4 Long term (current) use of insulin; Z79.82 Long term (current) use of aspirin; Z79.891 Long term (current) use of opiate analgesic; Z79.899 Other long term (current) drug therapy
CPT/HCPCS: 36415; 71045; 74176; 80048; 80053; 80076; 81001; 81003; 82009; 82947; 83605; 83690; 83735; 84484; 85014; 85018; 85025; 87040; 87086; 87635; 93005; 96361; 96374; 96375; 99284; 99285; J1200; J1650; J2060; J2405; J2765

== ENCOUNTER 2021-01-13 12:56 | Emergency (ER) | payer OTHER, SELFPAY ==
--- NOTE | ~2021-01-13 | XR_ITS ---
EXAMINATION: XR ABDOMEN KUB CLINICAL INDICATION: Low suspicion obstruction COMPARISON: 12/22/2020 TECHNIQUE: AP view of the abdomen. FINDINGS: Bowel gas pattern is unremarkable. Stool and air seen throughout colon to the rectum. No significant small bowel distention. Stomach bubble unremarkable. Partially visualized pacemaker wires seen. Surgical clips in the right upper quadrant prior cholecystectomy. InterStim device overlying the pelvis. Vascular calcification noted. XR/XR KUB IMPRESSION: Unremarkable bowel gas pattern
[2021-01-13 13:12] VITALS: BP 132/80; BP 200/100; PULSE 100; PULSE 60; RESP 20; TEMP 37.2; O2SAT 95; O2SAT 97; BMI 29.6
[2021-01-13 17:03] VITALS: BP 96/52; PULSE 60
[2021-01-13 19:40] VITALS: BP 108/65; PULSE 108; RESP 16; TEMP 37.1; O2SAT 99
[2021-01-13 19:46] LABS: MANUAL DIFF FLAG NO
[2021-01-13 19:48] LABS: Basophils Percent Auto 0.3 % (0-2); Eosinophils Percent Auto 0.5 % (0-4); Hematocrit 37.8 % (37-47); Hemoglobin 12.2 g/dl (12.0-16.0); Imm Gran Abs Auto 0.05 X10*3/uL (0.00-0.03); Imm Gran Pct Auto 0.6 % (0.0-0.4); Lymphocytes Absolute Auto 1.7 X10*3/uL (1.2-4.9); Lymphocytes Percent Auto 20.8 % (20-40); Mean Corpuscular HGB Conc 32.3 g/dl (31.0-35.0); Mean Corpuscular Hemoglobin 27.8 pg (27.0-33.0); Mean Corpuscular Volume 86.1 fL (80-98); Mean Platelet Volume 10.2 fL (9.4-12.3); Monocytes Absolute Auto 0.6 X10*3/uL (0.1-1.2); Neutrophils Absolute Auto 5.6 X10*3/uL (2.0-8.3); Neutrophils Percent Auto 70.8 % (45-73); Platelet Count 348 X10*3/uL (160-400); Red Blood Count 4.39 X10*6/uL (4.20-5.50)
[2021-01-13 20:14] LABS: Alanine Aminotransferase 14 U/L (0-31); Albumin Level 3.3 g/dL (3.5-5.0); Alkaline Phosphatase 112 U/L (39-117); Anion Gap 15 (12-20); Aspartate Amino Transferase 18 U/L (5-31); Bilirubin Total 0.3 mg/dL (0.0-1.0); Blood Urea Nitrogen 22 mg/dL (9-16); Calcium 8.4 mg/dL (8.4-10.2); Carbon Dioxide 27 mmol/L (22-29); Chloride 102 mmol/L (96-108); Creatinine Clr Calc Pharmacy 35.3; Estimated Glomerular Filt Rate 34; Glucose Random 310 mg/dL (60-115); Lipase 14 U/L (8-78); Potassium 4.5 mmol/L (3.3-5.1); Sodium 139 mmol/L (135-145); Total Protein 6.7 g/dL (6.5-8.0)
[2021-01-13 21:24] LABS: Glucose Urine UA >=1000 MG/DL (NEG); Leukocyte Esterase Urine NEG (NEG); Nitrite Urine NEG (NEG); Urine Blood TRACE (NEG); Urine Ketones 5 MG/DL (NEG); Urine Protein 3+ MG/DL (NEG-TRACE)
[2021-01-13 21:26] LABS: Appearance Urine CLOUDY; Color Urine YELLOW
[2021-01-13 21:34] LABS: RBC Urine 0-2 /HPF (0); UACC CULT YES; WBC Urine TNTC /HPF (0-4)
[2021-01-13 21:35] LABS: Bacteria Urine 1+ /LPF; Squamous Epithelial Cell Urine 1+ /LPF; WBC Clumps Urine NOTED
--- NOTE | 2021-01-13 21:36 | ED_ITS ---
HPI - Nausea/Vomiting/Diarrhea General Chief complaint: Abdominal Pain Stated complaint: UPPER ABD PAIN Time Seen by Provider: 01/13/21 21:19 Source: patient Mode of arrival: ambulatory Limitations: no limitations History of Present Illness HPI Narrative: Patient comes to emergency room complaining of vomiting. Patient is known to be diabetic and have significant gastroparesis. Patient states she has been vomiting for 5 days. Patient was seen here on January 07 and complaining of similar issues. Patient states that initially her symptoms improved, but soon after she started vomiting again. Patient complaining of diffuse abdominal pain, states is a usual pain she gets with gastroparesis. Patient denies diarrhea or obstipation. MD elicited complaint: nausea, vomiting and abdominal pain Related Data Home Medications Medication Instructions Recorded Confirmed lorazepam 0.5 mg PO BID PRN 09/14/20 01/08/21 Breo Ellipta 1 inh INHALATION DAILY PRN 09/16/20 01/08/21 albuterol sulfate 2 puff INHALATION Q6H PRN 09/16/20 01/08/21 allopurinol 100 mg PO DAILY 09/16/20 01/08/21 aspirin 81 mg PO DAILY 09/16/20 01/08/21 atorvastatin 40 mg PO BEDTIME 09/16/20 01/08/21 gabapentin 600 mg PO TID 09/16/20 01/08/21 metoprolol succinate [Toprol XL] 50 mg PO DAILY 09/16/20 01/08/21 omeprazole 20 mg PO BID@0630,1630 09/16/20 01/08/21 venlafaxine 150 mg PO DAILY 09/16/20 01/08/21 insulin degludec 100 unit/mL (3 40 unit SUBCUT DAILY ml 11/13/20 01/08/21 mL) subcutaneous pen amlodipine 5 mg PO DAILY 12/22/20 01/08/21 diclofenac sodium 1 ea TOPICAL BID 12/22/20 01/08/21 ergocalciferol (vitamin D2) 1 cap PO SA@1000 12/22/20 01/08/21 ferrous sulfate [iron] 325 mg PO DAILY 12/22/20 01/08/21 tamsulosin 0.4 mg PO DAILY@1700 12/22/20 01/08/21 acetaminophen 500 mg PO Q6H PRN 01/08/21 01/08/21 clotrimazole 1 appl TOPICAL BID 01/08/21 01/08/21 insulin aspart U-100 [Novolog 5 unit SUBCUT TIDAC 01/08/21 01/08/21 Flexpen U-100 Insulin] insulin aspart U-100 [Novolog See Protocol SUBCUT QIDACHS 01/08/21 01/08/21 Flexpen U-100 Insulin] loperamide 2 mg PO QID PRN 01/08/21 01/08/21 melatonin 5 mg PO BEDTIME PRN 01/08/21 01/08/21 methocarbamol 500 mg PO QID PRN 01/08/21 01/08/21 nitroglycerin 0.4 mg SUBLINGUAL Q5M PRN 01/08/21 01/08/21 oxycodone 5 mg PO Q6H PRN 01/08/21 01/08/21 sucralfate 1 g PO DAILY 01/08/21 01/08/21 Previous Rx's Medication Instructions Recorded furosemide 40 mg tablet 40 mg PO DAILY #90 tab 12/06/20 ondansetron HCl [Zofran] 4 mg PO Q8H PRN #10 tab 01/07/21 ondansetron HCl [Zofran] 4 mg PO Q8H #8 tab 01/09/21 cefdinir 300 mg PO BID #14 cap 01/14/21 metoclopramide HCl [Reglan] 10 mg PO Q6H PRN #14 tab 01/14/21 Allergies Allergy/AdvReac Type Severity Reaction Status Date / Time tetracycline [Tetracycline] Allergy Mild HIVES, Verified 11/13/20 13:41 anaphylaxis, anaphylaxis Review of Systems Review of Systems: Constitutional : No Weight loss, No Fever, No Chills, No Night Sweats, No Fatigue, No Malaise ENT/Mouth : No Hearing loss, No Ear Pain, No Nasal Congestion, No Sinus Pain, No Hoarseness, No sore throat, No Rhinorrhea, No Swallowing Difficulty Eyes: No Eye Pain, No Swelling, No Redness, No Foreign Body, No Discharge, No Vision Changes Cardiovascular : No Chest Pain, No SOB, No Dyspnea on Exertion, No Orthopnea, No Edema, No Palpitations Respiratory : No Cough, No Sputum, No Wheezing, No Smoke Exposure, No Dyspnea Gastrointestinal : Complaining of nausea and vomiting No Diarrhea, No Constipation, complaining of diffuse abdominal cramping, No Hematochezia, No Melena Genitourinary : no irregular bleeding, No Dysuria, No Urinary Frequency, No Hematuria, No Urinary Incontinence, No Urgency, No Flank Pain, No Urinary Flow Changes, No Hesitancy Musculoskeletal : No joint pain, No Myalgias, No Joint Swelling Skin : No Skin Lesions, No rash Neuro : No Weakness, No Numbness, No Paresthesias, No Loss of Consciousness, No Dizziness, No Headache Psych : No Anxiety/Panic, No Depression, No SI/HI/AH/VH, No Social Issues, Heme/Lymph: No Bruising, No Bleeding,No Lymphadenopathy Endocrine : No Polyuria, No Polydipsia, No Temperature Intolerance [facility] Past Medical History Medical History Anemia Anxiety Arthritis Cardiac pacemaker in situ Carpal tunnel syndrome CHF (congestive heart failure) Chronic heart failure with preserved ejection fraction (HFpEF) COPD exacerbation Coronary artery disease CVA (cerebral vascular accident) Diabetes Fall Gastritis Gastroparesis GERD (gastroesophageal reflux disease) Headache HLD (hyperlipidemia) HTN (hypertension) Hypocalcemia Hypoxia IBS (irritable bowel syndrome) Myocardial infarct Nausea and vomiting Renal failure T2DM (type 2 diabetes mellitus) UTI (urinary tract infection) Surgical History H/O Achilles tendon repair History of appendectomy History of bladder surgery History of carpal tunnel release History of total hysterectomy with bilateral salpingo-oophorectomy (BSO) Hx of amputation Hx of CABG (~2019) Hx of cholecystectomy Hx of endoscopy Hx of knee surgery Hx of tonsillectomy Family History Family History Father No problems noted. Mother Diabetes Hypercholesteremia Hypertension Stroke Social History Social History Household Members: Family Housing: Apartment Alcohol intake: former Smoking Status: Current every day smoker Tobacco Type: Cigarette Years Smoked: 20 Second Hand Smoke Exposure: No Use of substances other than those prescribed or required for medical reasons: No Advance Directives: No Advance Directives Information Provided: No service: No Current occupational status: disabled Physical Exam Vital Signs: Vital Signs: Last Vital Signs Temp 98.8 F 01/13/21 19:40 Pulse 91 01/13/21 22:11 Resp 16 01/13/21 22:11 BP 186/100 H 01/13/21 22:11 Pulse Ox 99 01/13/21 19:40 Body Mass Index 29.6 Appearance: Alert. Oriented X3. No acute distress. Eyes: Pupils equal, round and reactive to light. ENT: Pharynx normal. Neck: Normal inspection. Neck supple. No lymph nodes noted. No crepitus CVS: Normal heart rate and rhythm. Pulses normal. Normal S1 and S2 Respiratory: No respiratory distress. Breath sounds normal. No Wheezing. No rales Abdomen: Soft , mild diffuse tenderness, No rigidity. No distention. good BS x4 Skin: Skin warm and dry. Normal skin color. Normal skin turgor. Extremities: No lower extremity edema. No lower extremity edema. No Lacerations. No Rash Neuro: Oriented X 3. No motor deficit. No sensory deficit. Moving all extermities. No slurred speech. Course Course Course Narrative: I discussed the labs and imaging with the patient, patient states that she feels better, not having any abdominal pain has not vomited since she arrived to the emergency room. Admission was considered, however patient states she feels better. Patient was hydrated with IV fluids. Patient's baseline creatinine ranges from 1.42 to 2.05. 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 Patient was given the phone number for GI here in [place] for follow-up. Patient was p.o. challenged, did well with fluids and solids. Patient states that she does not remember getting any antibiotics for the UTI s ent to her pharmacy. MDM - Nausea/Vomiting/Diarrhea Lab Data Result diagrams: 01/13/21 19:38 01/13/21 19:38 Labs: Lab Results 01/13/21 01/13/21 01/13/21 Range/Units 19:38 19:38 19:38 WBC 8.0 (4.8-10.8) X10*3/uL RBC 4.39 (4.20-5.50) X10*6/uL Hgb 12.2 (12.0-16.0) g/dl Hct 37.8 (37-47) % MCV 86.1 (80-98) fL MCH 27.8 (27.0-33.0) pg MCHC 32.3 (31.0-35.0) g/dl RDW 15.0 (11.0-16.0) % Plt Count 348 (160-400) X10*3/uL MPV 10.2 (9.4-12.3) fL Immature Gran % (Auto) 0.6 H (0.0-0.4) % Neut % (Auto) 70.8 (45-73) % Lymph % (Auto) 20.8 (20-40) % [place] % (Auto) 7.0 (2-11) % Eos % (Auto) 0.5 (0-4) % Baso % (Auto) 0.3 (0-2) % Lymph # (Auto) 1.7 (1.2-4.9) X10*3/uL [place] # (Auto) 0.6 (0.1-1.2) X10*3/uL Eos # (Auto) 0.0 (0.0-0.4) X10*3/uL Baso # (Auto) 0.0 (0.0-0.2) X10*3/uL Abs Immat Gran (auto) 0.05 H (0.00-0.03) X10*3/uL Absolute Neuts (auto) 5.6 (2.0-8.3) X10*3/uL Absolute Nucleated RBC 0.000 (0.0-0.012) X10*3/uL Nucleated RBC % (auto) 0.0 (0.0-0.2) /100WBC Hold Blue Top SEE NOTE Sodium 139 (135-145) mmol/L Potassium 4.5 D (3.3-5.1) mmol/L Chloride 102 (96-108) mmol/L Carbon Dioxide 27 (22-29) mmol/L Anion Gap 15 (12-20) BUN 22 H D (9-16) mg/dL Creatinine 1.55 H (0.5-1.4) mg/dL Estim Creat Clear Calc 35.3 Estimated GFR 34 POC Glucose (60-115) mg/dL Random Glucose 310 H D (60-115) mg/dL Calcium 8.4 D (8.4-10.2) mg/dL Total Bilirubin 0.3 (0.0-1.0) mg/dL AST 18 (5-31) U/L ALT 14 (0-31) U/L Alkaline Phosphatase 112 (39-117) U/L Total Protein 6.7 (6.5-8.0) g/dL Albumin 3.3 L (3.5-5.0) g/dL Lipase 14 (8-78) U/L Urine Color Urine Appearance Urine pH (5.0-8.0) Ur Specific [place] (1.005-1.025) Urine Protein (NEG-TRACE) MG/DL Urine Glucose (UA) (NEG) MG/DL Urine Ketones (NEG) MG/DL Urine Blood (NEG) Urine Nitrite (NEG) Ur Leukocyte Esterase (NEG) Urine RBC (0) /HPF Urine WBC (0-4) /HPF Urine WBC Clumps Ur Squamous Epith Cells /LPF Urine Bacteria /LPF 01/13/21 01/13/21 01/14/21 Range/Units 21:04 22:00 00:01 WBC (4.8-10.8) X10*3/uL RBC (4.20-5.50) X10*6/uL Hgb (12.0-16.0) g/dl Hct (37-47) % MCV (80-98) fL MCH (27.0-33.0) pg MCHC (31.0-35.0) g/dl RDW (11.0-16.0) % Plt Count (160-400) X10*3/uL MPV (9.4-12.3) fL Immature Gran % (Auto) (0.0-0.4) % Neut % (Auto) (45-73) % Lymph % (Auto) (20-40) % [place] % (Auto) (2-11) % Eos % (Auto) (0-4) % Baso % (Auto) (0-2) % Lymph # (Auto) (1.2-4.9) X10*3/uL [place] # (Auto) (0.1-1.2) X10*3/uL Eos # (Auto) (0.0-0.4) X10*3/uL Baso # (Auto) (0.0-0.2) X10*3/uL Abs Immat Gran (auto) (0.00-0.03) X10*3/uL Absolute Neuts (auto) (2.0-8.3) X10*3/uL Absolute Nucleated RBC (0.0-0.012) X10*3/uL Nucleated RBC % (auto) (0.0-0.2) /100WBC Hold Blue Top Sodium (135-145) mmol/L Potassium (3.3-5.1) mmol/L Chloride (96-108) mmol/L Carbon Dioxide (22-29) mmol/L Anion Gap (12-20) BUN (9-16) mg/dL Creatinine (0.5-1.4) mg/dL Estim Creat Clear Calc Estimated GFR POC Glucose 279 H 148 H (60-115) mg/dL Random Glucose (60-115) mg/dL Calcium (8.4-10.2) mg/dL Total Bilirubin (0.0-1.0) mg/dL AST (5-31) U/L ALT (0-31) U/L Alkaline Phosphatase (39-117) U/L Total Protein (6.5-8.0) g/dL Albumin (3.5-5.0) g/dL Lipase (8-78) U/L Urine Color YELLOW Urine Appearance CLOUDY Urine pH 6.0 (5.0-8.0) Ur Specific [place] 1.020 (1.005-1.025) Urine Protein 3+ H (NEG-TRACE) MG/DL Urine Glucose (UA) >=1000 H (NEG) MG/DL Urine Ketones 5 (NEG) MG/DL Urine Blood TRACE (NEG) Urine Nitrite NEG (NEG) Ur Leukocyte Esterase NEG (NEG) Urine RBC 0-2 (0) /HPF Urine WBC TNTC H (0-4) /HPF Urine WBC Clumps NOTED Ur Squamous Epith Cells 1+ /LPF Urine Bacteria 1+ /LPF Discharge Plan Discharge Clinical Impression: Diabetic gastroparesis Vomiting Qualifiers: Vomiting type: unspecified Vomiting Intractability: unspecified Nausea presence: unspecified Qualified Code(s): R11.10 - Vomiting, unspecified Patient Disposition: Home, Self-Care Instructions: Diabetic Gastroparesis (DC) Additional Instructions: Please call the Gastroenterology office to schedule that appointment. Please follow-up with your primary care physician tomorrow. If you have any worsening or new symptoms, please return to the emergency room or call 911 Prescriptions: New metoclopramide HCl [Reglan] 10 mg tablet 10 mg PO Q6H PRN (Reason: nausea and vomiting) Qty: 14 RF: 0 cefdinir 300 mg capsule 300 mg PO BID Qty: 14 RF: 0 No Action furosemide 40 mg tablet 40 mg PO DAILY Qty: 90 RF: 3 lorazepam 0.5 mg Tablet 0.5 mg PO BID PRN (Reason: Anxiety) RF: 0 atorvastatin 40 mg Tablet 40 mg PO BEDTIME RF: 0 gabapentin 600 mg Tablet 600 mg PO TID RF: 0 metoprolol succinate [Toprol XL] 50 mg Tablet Extended Release 24 Hr 50 mg PO DAILY RF: 0 allopurinol 100 mg Tablet 100 mg PO DAILY RF: 0 omeprazole 20 mg Capsule,Delayed Release(Dr/Ec) 20 mg PO BID@0630,1630 RF: 0 albuterol sulfate 90 mcg/actuation Hfa Aerosol Inhaler 2 puff INHALATION Q6H PRN (Reason: Shortness Of Breath) RF: 0 venlafaxine 150 mg Tablet Extended Release 24hr 150 mg PO DAILY RF: 0 Breo Ellipta 100-25 mcg/dose Blister With Device 1 inh INHALATION DAILY PRN (Reason: Shortness Of Breath) RF: 0 aspirin 81 mg Tablet,Delayed Release (Dr/Ec) 81 mg PO DAILY RF: 0 Hold Instructions: Resume on 01/13/21. tamsulosin 0.4 mg capsule 0.4 mg PO DAILY@1700 RF: 0 ferrous sulfate [iron] 325 mg (65 mg iron) Tablet 325 mg PO DAILY RF: 0 ergocalciferol (vitamin D2) 1,250 mcg (50,000 unit) capsule 1 cap PO SA@1000 RF: 0 diclofenac sodium 1 % gel 1 ea topical BID RF: 0 Hold Instructions: Resume on 01/13/21. amlodipine 5 mg tablet 5 mg PO DAILY RF: 0 ondansetron HCl [Zofran] 4 mg tablet 4 mg PO Q8H PRN (Reason: nausea and vomiting) Qty: 10 RF: 0 clotrimazole 1 % Cream 1 appl TOPICAL BID RF: 0 insulin aspart U-100 [Novolog Flexpen U-100 Insulin] 100 unit/mL (3 mL) Insulin Pen 5 unit SUBCUT TIDAC RF: 0 insulin aspart U-100 [Novolog Flexpen U-100 Insulin] 100 unit/mL (3 mL) Insulin Pen See Protocol unit SUBCUT QIDACHS RF: 0 loperamide 2 mg Tablet 2 mg PO QID PRN (Reason: Diarrhea) RF: 0 acetaminophen 500 mg Tablet 500 mg PO Q6H PRN (Reason: Pain (Scale Score 1-3)) RF: 0 nitroglycerin 0.4 mg Tablet, Sublingual 0.4 mg SUBLINGUAL Q5M PRN (Reason: Chest Pain) RF: 0 oxycodone 5 mg Tablet 5 mg PO Q6H PRN (Reason: Pain (Scale Score 4-6)) RF: 0 methocarbamol 500 mg Tablet 500 mg PO QID PRN (Reason: Spasms) RF: 0 sucralfate 1 gram Tablet 1 g PO DAILY RF: 0 melatonin 5 mg Tablet 5 mg PO BEDTIME PRN (Reason: Sleep) RF: 0 ondansetron HCl [Zofran] 4 mg tablet 4 mg PO Q8H Qty: 8 RF: 0 Tresiba FlexTouch U-100 100 unit/mL (3 mL) insulin pen 40 unit subcut DAILY RF: 0 Referrals: Estefanía Eastman MD [Physician] - 2 days
[2021-01-13] MEDS: Insulin Regular, Human 100 UNIT/ML 3 ML VIAL IVPUSH (22:05)
[2021-01-13] MEDS: ondansetron HCL 4 MG/2 ML VIAL IVPUSH (22:05)
[2021-01-13] MEDS: Morphine Sulfate 4 MG/ML CARTRIDGE IVPUSH (22:05)
[2021-01-13] MEDS: 0.9 % Sodium Chloride 1,000 ML 999 ML IVCONT (22:08)
[2021-01-13 22:11] VITALS: BP 186/100; PULSE 91; RESP 16
[2021-01-13 22:17] LABS: Glucose, Whole Blood 279 mg/dL (60-115)
[2021-01-14] VITALS: BP 180/94; PULSE 64; RESP 18; O2SAT 100
[2021-01-14 00:04] LABS: Glucose, Whole Blood 148 mg/dL (60-115)
--- NOTE | 2021-01-14 00:20 | PC.NURSE ---
pt tolerating po now.
== END 2021-01-14 00:45 | disposition home or self-care (01) ==
PROVIDERS: Emergency Provider Emergency Medicine
DX: E11.43 Type 2 diabetes mellitus with diabetic autonomic (poly)neuropathy (principal); K31.84 Gastroparesis; R10.10 Upper abdominal pain, unspecified; R11.10 Vomiting, unspecified; I11.0 Hypertensive heart disease with heart failure; I50.9 Heart failure, unspecified; J44.9 Chronic obstructive pulmonary disease, unspecified; K21.9 Gastro-esophageal reflux disease without esophagitis; I25.2 Old myocardial infarction; F17.210 Nicotine dependence, cigarettes, uncomplicated; Z87.440 Personal history of urinary (tract) infections; Z95.0 Presence of cardiac pacemaker; Z86.73 Personal history of transient ischemic attack (TIA), and cerebral infarction without residual deficits; Z79.4 Long term (current) use of insulin; Z79.899 Other long term (current) drug therapy
CPT/HCPCS: 36415; 74018; 80053; 81001; 82947; 83690; 85025; 87086; 96360; 96361; 96374; 96375; 99284; 99285; J2270; J2405

== ENCOUNTER 2021-02-24 18:04 | Emergency (ER) | payer OTHER, SELFPAY ==
--- NOTE | ~2021-02-24 | XR_ITS ---
EXAMINATION: XR CHEST CLINICAL INFORMATION: Chest COMPARISON: 01/07/2021 TECHNIQUE: Frontal view of the chest was obtained. FINDINGS: Since the prior study, the lungs are slightly hypoinflated which increases size of the cardiac silhouette which is probably still within normal limits. Again seen is a left chest wall bipolar pacemaker and changes of median sternotomy. No infiltrates, effusions or lung masses are seen. No evidence of CHF XR/XR chest 1V IMPRESSION: No acute intrathoracic disease.
[2021-02-24 18:07] VITALS: BP 172/78; PULSE 81; RESP 15; TEMP 37.1; O2SAT 95; BMI 29.5
--- NOTE | 2021-02-24 18:08 | ED_ITS ---
HPI - Chest Pain General Chief Complaint: Chest Pain Stated Complaint: CHEST TITNESS Time Seen by Provider: 02/24/21 18:07 Source: patient Mode of arrival: EMS Limitations: no limitations History of Present Illness HPI narrative: Disease status post CABG 2 vessels in 2019 also her DDDR pacemaker placed been here multiple times for different complaints at this time she comes here for chest pain since yesterday patient did not have any cardiac catheterization after the bypass surgery. Pain increases on palpation and taking deep breaths localized mid chest is going on since yesterday morning. No shortness of breath no cough patient does get this kind of pain off and on. Or radiation of pain no diaphoresis no nausea or vomiting Related Data Home Medications Medication Instructions Recorded Confirmed lorazepam 0.5 mg PO BID PRN 09/14/20 01/08/21 Breo Ellipta 1 inh INHALATION DAILY PRN 09/16/20 01/08/21 albuterol sulfate 2 puff INHALATION Q6H PRN 09/16/20 01/08/21 allopurinol 100 mg PO DAILY 09/16/20 01/08/21 aspirin 81 mg PO DAILY 09/16/20 01/08/21 atorvastatin 40 mg PO BEDTIME 09/16/20 01/08/21 gabapentin 600 mg PO TID 09/16/20 01/08/21 metoprolol succinate [Toprol XL] 50 mg PO DAILY 09/16/20 01/08/21 omeprazole 20 mg PO BID@0630,1630 09/16/20 01/08/21 venlafaxine 150 mg PO DAILY 09/16/20 01/08/21 insulin degludec 100 unit/mL (3 40 unit SUBCUT DAILY ml 11/13/20 01/08/21 mL) subcutaneous pen amlodipine 5 mg PO DAILY 12/22/20 01/08/21 diclofenac sodium 1 ea TOPICAL BID 12/22/20 01/08/21 ergocalciferol (vitamin D2) 1 cap PO SA@1000 12/22/20 01/08/21 ferrous sulfate [iron] 325 mg PO DAILY 12/22/20 01/08/21 tamsulosin 0.4 mg PO DAILY@1700 12/22/20 01/08/21 acetaminophen 500 mg PO Q6H PRN 01/08/21 01/08/21 clotrimazole 1 appl TOPICAL BID 01/08/21 01/08/21 insulin aspart U-100 [Novolog 5 unit SUBCUT TIDAC 01/08/21 01/08/21 Flexpen U-100 Insulin] insulin aspart U-100 [Novolog See Protocol SUBCUT QIDACHS 01/08/21 01/08/21 Flexpen U-100 Insulin] loperamide 2 mg PO QID PRN 01/08/21 01/08/21 melatonin 5 mg PO BEDTIME PRN 01/08/21 01/08/21 methocarbamol 500 mg PO QID PRN 01/08/21 01/08/21 nitroglycerin 0.4 mg SUBLINGUAL Q5M PRN 01/08/21 01/08/21 oxycodone 5 mg PO Q6H PRN 01/08/21 01/08/21 sucralfate 1 g PO DAILY 01/08/21 01/08/21 Previous Rx's Medication Instructions Recorded furosemide 40 mg tablet 40 mg PO DAILY #90 tab 12/06/20 ondansetron HCl [Zofran] 4 mg PO Q8H PRN #10 tab 01/07/21 ondansetron HCl [Zofran] 4 mg PO Q8H #8 tab 01/09/21 cefdinir 300 mg PO BID #14 cap 01/14/21 metoclopramide HCl [Reglan] 10 mg PO Q6H PRN #14 tab 01/14/21 Allergies Allergy/AdvReac Type Severity Reaction Status Date / Time tetracycline [Tetracycline] Allergy Mild HIVES, Verified 11/13/20 13:41 anaphylaxis, anaphylaxis Review of Systems Review of Systems: Constitutional : No Weight loss, No Fever, No Chills ENT/Mouth : No sore throat, No Rhinorrhea Eyes: No Eye Pain, No Swelling Cardiovascular : ++ Chest Pain, no palpitations Respiratory : No Cough, No Sputum, no shortness of breath Gastrointestinal : no Nausea, No Vomiting, No Diarrhea, No abdominal Pain, no black stools Genitourinary : No Dysuria, No Urinary Frequency Musculoskeletal : No joint pain, No Myalgias, No Joint Swelling Skin : No Skin Lesions, No rash Neuro : No Weakness, No Numbness, No Dizziness, No Headache Psych : No Anxiety/Panic, No Depression Heme/Lymph: No Bruising, No Lymphadenopathy Endocrine : No Polyuria, No Polydipsia All other systems reviewed and are negative [facility] Past Medical History Medical History Anemia Anxiety Arthritis Cardiac pacemaker in situ Carpal tunnel syndrome CHF (congestive heart failure) Chronic heart failure with preserved ejection fraction (HFpEF) COPD exacerbation Coronary artery disease CVA (cerebral vascular accident) Diabetes Fall Gastritis Gastroparesis GERD (gastroesophageal reflux disease) Headache HLD (hyperlipidemia) HTN (hypertension) Hypocalcemia Hypoxia IBS (irritable bowel syndrome) Myocardial infarct Nausea and vomiting Renal failure T2DM (type 2 diabetes mellitus) UTI (urinary tract infection) Surgical History H/O Achilles tendon repair History of appendectomy History of bladder surgery History of carpal tunnel release History of total hysterectomy with bilateral salpingo-oophorectomy (BSO) Hx of amputation Hx of CABG (~2019) Hx of cholecystectomy Hx of endoscopy Hx of knee surgery Hx of tonsillectomy Family History Family History Father No problems noted. Mother Diabetes Hypercholesteremia Hypertension Stroke Social History Social History Household Members: Family Housing: Apartment Alcohol intake: former Smoking Status: Current every day smoker Tobacco Type: Cigarette Years Smoked: 20 Second Hand Smoke Exposure: No Advance Directives: No Advance Directives Information Provided: Yes service: No Current occupational status: disabled Physical Exam Vital Signs: Vital Signs: Last Vital Signs Temp 98.7 F 02/24/21 18:07 Pulse 82 02/24/21 19:34 Resp 16 02/24/21 19:34 BP 186/90 H 02/24/21 19:34 Pulse Ox 95 02/24/21 18:07 Body Mass Index 29.5 Appearance: Alert. Oriented X3. No acute distress. Eyes: Pupils equal, round and reactive to light. ENT: Pharynx normal. Neck: Normal inspection. Neck supple. CVS: Normal heart rate and rhythm. Pulses normal. Chest wall tenderness+ Respiratory: No respiratory distress. Breath sounds normal. Abdomen: Soft and nontender. Bowel sounds are present, no mass palpable, no CVA tenderness Skin: Skin warm and dry. Normal skin color. Normal skin turgor. Extremities: No lower extremity edema. No calf tenderness Neuro: Oriented X 3. No motor deficit. No sensory deficit. MDM - Chest Pain MDM Narrative Medical decision making narrative: Patient chest wall tenderness without any EKG changes pain for 2 days been here multiple times for similar situation with slightly elevated high sensitive troponin without any EKG changes patient responded to oxycodone sleeping after arrival in the ER no chest pain at this time will discharge patient home Differential Diagnosis Differential diagnosis: Likely unstable angina pectoris and atypical chest pain Medical Records Data Attestation: I reviewed the patient's medical records. Lab Data Attestation: I reviewed the patient's lab results. Result diagrams: 02/24/21 20:00 02/24/21 20:00 Labs: Lab Results 02/24/21 02/24/21 02/24/21 Range/Units 20:00 20:00 20:01 WBC 9.5 (4.8-10.8) X10*3/uL RBC 3.74 L (4.20-5.50) X10*6/uL Hgb 11.0 L (12.0-16.0) g/dl Hct 33.5 L (37-47) % MCV 89.6 (80-98) fL MCH 29.4 (27.0-33.0) pg MCHC 32.8 (31.0-35.0) g/dl RDW 14.0 (11.0-16.0) % Plt Count 220 D (160-400) X10*3/uL MPV 10.8 (9.4-12.3) fL Immature Gran % (Auto) 0.6 H (0.0-0.4) % Neut % (Auto) 74.7 H (45-73) % Lymph % (Auto) 15.6 L (20-40) % [place] % (Auto) 6.8 (2-11) % Eos % (Auto) 2.0 (0-4) % Baso % (Auto) 0.3 (0-2) % Lymph # (Auto) 1.5 (1.2-4.9) X10*3/uL [place] # (Auto) 0.7 (0.1-1.2) X10*3/uL Eos # (Auto) 0.2 (0.0-0.4) X10*3/uL Baso # (Auto) 0.0 (0.0-0.2) X10*3/uL Abs Immat Gran (auto) 0.06 H (0.00-0.03) X10*3/uL Absolute Neuts (auto) 7.1 (2.0-8.3) X10*3/uL Absolute Nucleated RBC 0.000 (0.0-0.012) X10*3/uL Nucleated RBC % (auto) 0.0 (0.0-0.2) /100WBC Smear Tech's Comments VERIFIED Sodium 136 (135-145) mmol/L Potassium 4.8 (3.3-5.1) mmol/L Chloride 102 (96-108) mmol/L Carbon Dioxide 28 (22-29) mmol/L Anion Gap 11 L (12-20) BUN 35 H D (9-16) mg/dL Creatinine 1.35 (0.5-1.4) mg/dL Estim Creat Clear Calc 40.5 Estimated GFR 40 Random Glucose 195 H D (60-115) mg/dL Calcium 8.4 (8.4-10.2) mg/dL Troponin I High Sens 28.0 H (<3.5-17.0) ng/L ECG Data ECG #1: Attestation: I personally reviewed and interpreted this ECG as follows: Interpretation: Normal sinus rhythm heart rate 81 beats per minute incomplete right bundle branch block no acute ST T wave changes no acute ischemia Discharge Plan Discharge Clinical Impression: Chest pain Qualifiers: Chest pain type: precordial pain Qualified Code(s): R07.2 - Precordial pain Prescriptions: No Action furosemide 40 mg tablet 40 mg PO DAILY Qty: 90 RF: 3 lorazepam 0.5 mg Tablet 0.5 mg PO BID PRN (Reason: Anxiety) RF: 0 atorvastatin 40 mg Tablet 40 mg PO BEDTIME RF: 0 gabapentin 600 mg Tablet 600 mg PO TID RF: 0 metoprolol succinate [Toprol XL] 50 mg Tablet Extended Release 24 Hr 50 mg PO DAILY RF: 0 allopurinol 100 mg Tablet 100 mg PO DAILY RF: 0 omeprazole 20 mg Capsule,Delayed Release(Dr/Ec) 20 mg PO BID@0630,1630 RF: 0 albuterol sulfate 90 mcg/actuation Hfa Aerosol Inhaler 2 puff INHALATION Q6H PRN (Reason: Shortness Of Breath) RF: 0 venlafaxine 150 mg Tablet Extended Release 24hr 150 mg PO DAILY RF: 0 Breo Ellipta 100-25 mcg/dose Blister With Device 1 inh INHALATION DAILY PRN (Reason: Shortness Of Breath) RF: 0 aspirin 81 mg Tablet,Delayed Release (Dr/Ec) 81 mg PO DAILY RF: 0 Hold Instructions: Resume on 01/13/21. metoclopramide HCl [Reglan] 10 mg tablet 10 mg PO Q6H PRN (Reason: nausea and vomiting) Qty: 14 RF: 0 cefdinir 300 mg capsule 300 mg PO BID Qty: 14 RF: 0 tamsulosin 0.4 mg capsule 0.4 mg PO DAILY@1700 RF: 0 ferrous sulfate [iron] 325 mg (65 mg iron) Tablet 325 mg PO DAILY RF: 0 ergocalciferol (vitamin D2) 1,250 mcg (50,000 unit) capsule 1 cap PO SA@1000 RF: 0 diclofenac sodium 1 % gel 1 ea topical BID RF: 0 Hold Instructions: Resume on 01/13/21. amlodipine 5 mg tablet 5 mg PO DAILY RF: 0 ondansetron HCl [Zofran] 4 mg tablet 4 mg PO Q8H PRN (Reason: nausea and vomiting) Qty: 10 RF: 0 clotrimazole 1 % Cream 1 appl TOPICAL BID RF: 0 insulin aspart U-100 [Novolog Flexpen U-100 Insulin] 100 unit/mL (3 mL) Insulin Pen 5 unit SUBCUT TIDAC RF: 0 insulin aspart U-100 [Novolog Flexpen U-100 Insulin] 100 unit/mL (3 mL) Insulin Pen See Protocol unit SUBCUT QIDACHS RF: 0 loperamide 2 mg Tablet 2 mg PO QID PRN (Reason: Diarrhea) RF: 0 acetaminophen 500 mg Tablet 500 mg PO Q6H PRN (Reason: Pain (Scale Score 1-3)) RF: 0 nitroglycerin 0.4 mg Tablet, Sublingual 0.4 mg SUBLINGUAL Q5M PRN (Reason: Chest Pain) RF: 0 oxycodone 5 mg Tablet 5 mg PO Q6H PRN (Reason: Pain (Scale Score 4-6)) RF: 0 methocarbamol 500 mg Tablet 500 mg PO QID PRN (Reason: Spasms) RF: 0 sucralfate 1 gram Tablet 1 g PO DAILY RF: 0 melatonin 5 mg Tablet 5 mg PO BEDTIME PRN (Reason: Sleep) RF: 0 ondansetron HCl [Zofran] 4 mg tablet 4 mg PO Q8H Qty: 8 RF: 0 Tresiba FlexTouch U-100 100 unit/mL (3 mL) insulin pen 40 unit subcut DAILY RF: 0
--- NOTE | 2021-02-24 18:18 | ECG_ITS ---
Test Reason : CP Blood Pressure : / mmHG Vent. Rate : 081 BPM Atrial Rate : 081 BPM P-R Int : 140 ms QRS Dur : 116 ms QT Int : 424 ms P-R-T Axes : -23 108 045 degrees QTc Int : 492 ms Normal sinus rhythm Incomplete right bundle branch block Right ventricular hypertrophy Prolonged QT Abnormal ECG When compared with ECG of 08-JAN-2021 03:52, ST elevation has replaced ST depression in Inferior leads ST no longer depressed in Anterior leads T wave inversion no longer evident in Inferior leads T wave inversion no longer evident in Anterior leads Referred By: Jero Vaughn Electronically Signed By:LG SALAZAR MD
--- NOTE | 2021-02-24 19:01 | PC.NURSE ---
delay in med adminsitration and lab work due to difficulty iv stick.
[2021-02-24] MEDS: oxyCODONE HCl Immed Release 5 MG TABLET 10 MG PO (19:33)
[2021-02-24 19:34] VITALS: BP 186/90; PULSE 82; RESP 16
[2021-02-24 20:00] VITALS: PULSE 70; PULSE 79; RESP 18; O2SAT 100
[2021-02-24 20:09] LABS: MANUAL DIFF FLAG SCAN; PLT CLUMP 1; SCAN SMEAR FLAG 1
[2021-02-24 20:11] LABS: Basophils Percent Auto 0.3 % (0-2); Eosinophils Absolute Auto 0.2 X10*3/uL (0.0-0.4); Hematocrit 33.5 % (37-47); Imm Gran Abs Auto 0.06 X10*3/uL (0.00-0.03); Imm Gran Pct Auto 0.6 % (0.0-0.4); Lymphocytes Absolute Auto 1.5 X10*3/uL (1.2-4.9); Lymphocytes Percent Auto 15.6 % (20-40); Mean Corpuscular HGB Conc 32.8 g/dl (31.0-35.0); Mean Corpuscular Hemoglobin 29.4 pg (27.0-33.0); Mean Corpuscular Volume 89.6 fL (80-98); Mean Platelet Volume 10.8 fL (9.4-12.3); Monocytes Absolute Auto 0.7 X10*3/uL (0.1-1.2); Monocytes Percent Auto 6.8 % (2-11); Neutrophils Absolute Auto 7.1 X10*3/uL (2.0-8.3); Neutrophils Percent Auto 74.7 % (45-73); Red Blood Count 3.74 X10*6/uL (4.20-5.50); White Blood Count 9.5 X10*3/uL (4.8-10.8)
[2021-02-24 20:25] LABS: INTERNATIONAL NORM RATIO 0.9 (0.9-1.1); Prothrombin Time 11.1 SEC (10.8-13.0)
[2021-02-24 20:38] LABS: Platelet Count 220 X10*3/uL (160-400)
[2021-02-24 20:40] LABS: Anion Gap 11 (12-20); Blood Urea Nitrogen 35 mg/dL (9-16); Calcium 8.4 mg/dL (8.4-10.2); Carbon Dioxide 28 mmol/L (22-29); Chloride 102 mmol/L (96-108); Creatinine Clr Calc Pharmacy 40.5; Estimated Glomerular Filt Rate 40; Glucose Random 195 mg/dL (60-115); Potassium 4.8 mmol/L (3.3-5.1); SLIDE REVIEW VERIFIED; Sodium 136 mmol/L (135-145)
== END 2021-02-24 21:18 | disposition home or self-care (01) ==
PROVIDERS: Emergency Provider Internal Medicine
DX: R07.2 Precordial pain (principal); I25.10 Atherosclerotic heart disease of native coronary artery without angina pectoris; F17.210 Nicotine dependence, cigarettes, uncomplicated; Z71.6 Tobacco abuse counseling; Z79.899 Other long term (current) drug therapy
CPT/HCPCS: 36415; 71045; 80048; 84484; 85025; 85610; 85730; 93005; 96374; 96375; 99285

== ENCOUNTER 2021-03-06 07:52 | Inpatient (IN) | payer OTHER, SELFPAY ==
[2021-03-06] VITALS (15 sets, daily range): BP systolic 84–191; BP diastolic 47–95; PULSE 73–87; RESP 14–20; TEMP 36–36.8; O2SAT 89–100; BMI 29.0
--- NOTE | ~2021-03-06 | XR_ITS ---
EXAMINATION: XR KNEE, LEFT CLINICAL INFORMATION: Fall, trauma, pain COMPARISON: Radiographs left knee 12/22/2020 TECHNIQUE: Four views of the left knee. FINDINGS: There is no acute fracture or dislocation. Again, there are chronic changes medial knee joint compartment with depression articular surface medial femoral condyle and secondary degenerative changes. Findings may be related to sequela from remote trauma and/or osteonecrosis subchondral femoral condyle. There is a moderate suprapatellar effusion again seen. Hoffa's fat pad is unremarkable. There is extensive calcification vasculature, likely M?nckeberg medial calcific sclerosis.? XR/XR knee LT 4V IMPRESSION: 1. No acute fracture or dislocation. 2. Chronic arthropathy medial compartment with suprapatellar effusion, similar to prior study 12/22/2020. Findings possibly sequela from remote trauma and/or subchondral osteonecrosis femoral condyle.
--- NOTE | ~2021-03-06 | XR_ITS ---
EXAMINATION: XR SHOULDER, LEFT CLINICAL INFORMATION: Fall, trauma, pain COMPARISON: Radiographs left shoulder 07/04/2018, chest radiograph 02/24/2021 and 01/07/2021 TECHNIQUE: Left shoulder is imaged in 3 views. FINDINGS: There is no fracture or dislocation. The acromioclavicular alignment is normal. The left lung apex shows no pneumothorax or pleural reaction. There are no visible rotator cuff calcifications. XR/XR shoulder LT min 2V IMPRESSION: No fracture or dislocation.
--- NOTE | ~2021-03-06 | XR_ITS ---
EXAMINATION: XR CHEST CLINICAL INFORMATION: Weakness COMPARISON: Chest radiographs 02/24/2021, 01/07/2021 TECHNIQUE: Upright AP view of the chest was obtained. FINDINGS: The lungs are clear. There is no airspace consolidation or effusion. The vascularity is normal. The heart is normal in size. The hilar and mediastinal contours are normal. There is been prior median sternotomy and a bipolar pacemaker is again seen. No acute abnormality. XR/XR chest 1V IMPRESSION: Lungs clear. No acute intrathoracic disease.
[2021-03-06 08:33] LABS: Glucose, Whole Blood 369 mg/dL (60-115)
--- NOTE | 2021-03-06 08:34 | ECG_ITS ---
Test Reason : ABDOMINAL PAIN Blood Pressure : / mmHG Vent. Rate : 078 BPM Atrial Rate : 078 BPM P-R Int : 134 ms QRS Dur : 112 ms QT Int : 450 ms P-R-T Axes : 071 108 070 degrees QTc Int : 513 ms Normal sinus rhythm Incomplete right bundle branch block Nonspecific ST abnormality Prolonged QT Abnormal ECG When compared with ECG of 24-FEB-2021 18:15, No significant change was found Referred By: Connie St Electronically Signed By:STEVE MASON
[2021-03-06] MEDS: ondansetron HCL 4 MG/2 ML VIAL IVPUSH (09:22)
[2021-03-06] MEDS: 0.9 % Sodium Chloride 1,000 ML 999 ML IVCONT ×2 (09:22→11:52)
[2021-03-06 09:29] LABS: MANUAL DIFF FLAG NO
[2021-03-06 09:30] LABS: Basophils Percent Auto 0.3 % (0-2); Eosinophils Absolute Auto 0.1 X10*3/uL (0.0-0.4); Eosinophils Percent Auto 0.9 % (0-4); Hematocrit 37.2 % (37-47); Hemoglobin 12.3 g/dl (12.0-16.0); Imm Gran Abs Auto 0.09 X10*3/uL (0.00-0.03); Lymphocytes Absolute Auto 1.4 X10*3/uL (1.2-4.9); Lymphocytes Percent Auto 14.6 % (20-40); Mean Corpuscular HGB Conc 33.1 g/dl (31.0-35.0); Mean Corpuscular Hemoglobin 29.5 pg (27.0-33.0); Mean Corpuscular Volume 89.2 fL (80-98); Mean Platelet Volume 10.5 fL (9.4-12.3); Monocytes Absolute Auto 0.6 X10*3/uL (0.1-1.2); Monocytes Percent Auto 6.1 % (2-11); Neutrophils Absolute Auto 7.2 X10*3/uL (2.0-8.3); Neutrophils Percent Auto 77.1 % (45-73); Platelet Count 259 X10*3/uL (160-400); Red Blood Count 4.17 X10*6/uL (4.20-5.50); Red Cell Distribution Width 13.4 % (11.0-16.0); White Blood Count 9.3 X10*3/uL (4.8-10.8)
[2021-03-06 09:35] LABS: INTERNATIONAL NORM RATIO 1.1 (0.9-1.1); Prothrombin Time 12.7 SEC (10.8-13.0)
[2021-03-06 09:37] LABS: Partial Thromboplastin Time 32.5 SEC (24.1-38.0)
[2021-03-06] MEDS: Acetaminophen 325 MG TABLET 650 MG PO ×2 (09:38→15:56)
[2021-03-06] MEDS: Lidocaine 4 % Patch ADH..PATCH 1 PATCH TRANSDERMA (09:38)
[2021-03-06] MEDS: Cyclobenzaprine HCl 5 MG TABLET PO (09:39)
--- NOTE | 2021-03-06 09:57 | ED_ITS ---
HPI - Weakness General Chief complaint: Weakness Stated complaint: weakness Time Seen by Provider: 03/06/21 08:21 Source: patient and EMS Mode of arrival: EMS History of Present Illness HPI Narrative: 60-year-old female with a past medical history of anemia, anxiety, throat is, CHF, COPD, CAD s/p CABG, CVA, diabetes, gastroparesis, GERD, IBS, CKD, DM, BIBA for generalized weakness and multiple falls at home this morning. Patient states she had 1 fall in bathroom and 1 in bedroom due to generalized fatigue/weakness, denies head trauma or LOC, reports landed on back/left side/left shoulder. Reports left shoulder/left knee pain, nausea, vomiting, and diffuse abdominal cramping. Denies lightheadedness, headache/vision changes, CP/SOB, diarrhea, urinary incontinence/retention, dysuria, numbness, tingling, fever, chills MD Complaint: generalized weakness Related Data Home Medications Medication Instructions Recorded Confirmed lorazepam 0.5 mg PO BID PRN 09/14/20 03/06/21 Breo Ellipta 1 inh INHALATION DAILY PRN 09/16/20 03/06/21 albuterol sulfate 2 puff INHALATION Q6H PRN 09/16/20 03/06/21 allopurinol 100 mg PO DAILY 09/16/20 03/06/21 aspirin 81 mg PO DAILY 09/16/20 03/06/21 atorvastatin 40 mg PO BEDTIME 09/16/20 03/06/21 metoprolol succinate [Toprol XL] 50 mg PO DAILY 09/16/20 03/06/21 insulin degludec 100 unit/mL (3 12 unit SUBCUT DAILY ml 11/13/20 03/06/21 mL) subcutaneous pen amlodipine 5 mg PO DAILY 12/22/20 03/06/21 ergocalciferol (vitamin D2) 1 cap PO SA@1000 12/22/20 03/06/21 ferrous sulfate [iron] 325 mg PO DAILY 12/22/20 03/06/21 tamsulosin 0.4 mg PO DAILY@1700 12/22/20 03/06/21 insulin aspart U-100 [Novolog 5 unit SUBCUT BIDAC 01/08/21 03/06/21 Flexpen U-100 Insulin] loperamide 2 mg PO QID PRN 01/08/21 03/06/21 melatonin 5 mg PO BEDTIME PRN 01/08/21 03/06/21 nitroglycerin 0.4 mg SUBLINGUAL Q5M PRN 01/08/21 03/06/21 fludrocortisone 1 tab PO DAILY 03/06/21 03/06/21 gabapentin 200 mg PO TID 03/06/21 03/06/21 pantoprazole 1 tab PO DAILY 03/06/21 03/06/21 Previous Rx's Medication Instructions Recorded furosemide 40 mg tablet 40 mg PO DAILY #90 tab 12/06/20 Allergies Allergy/AdvReac Type Severity Reaction Status Date / Time tetracycline [Tetracycline] Allergy Mild HIVES, Verified 11/13/20 13:41 anaphylaxis, anaphylaxis Review of Systems Review of Systems: Constitutional: No Fever, No Chills, +Fatigue, No Malaise Eyes: No Eye Pain, No Vision Changes Cardiovascular: No Chest Pain, No SOB, No Edema, No Palpitations Respiratory: No Cough, No Dyspnea Gastrointestinal: + Nausea, + Vomiting, No Diarrhea, No Constipation, + Abdominal pain Genitourinary: No Dysuria, No Urinary Frequency, No Hematuria, No Urinary Incontinence/retention Musculoskeletal: + left shoulder and knee pain, No Myalgias, No Joint Swelling Skin: No Skin Lesions, No rash Neuro: + Weakness, No Numbness, No Paresthesias, No Loss of Consciousness, No Dizziness, No Headache Yes all other systems are reviewed and are negative [facility] Past Medical History Attestation statement: The following information was validated with the patient. Medical History Anemia Anxiety Arthritis Cardiac pacemaker in situ Carpal tunnel syndrome CHF (congestive heart failure) Chronic heart failure with preserved ejection fraction (HFpEF) COPD exacerbation Coronary artery disease CVA (cerebral vascular accident) Diabetes Fall Gastritis Gastroparesis GERD (gastroesophageal reflux disease) Headache HLD (hyperlipidemia) HTN (hypertension) Hypocalcemia Hypoxia IBS (irritable bowel syndrome) Myocardial infarct Nausea and vomiting Renal failure T2DM (type 2 diabetes mellitus) UTI (urinary tract infection) Surgical History H/O Achilles tendon repair History of appendectomy History of bladder surgery History of carpal tunnel release History of total hysterectomy with bilateral salpingo-oophorectomy (BSO) Hx of amputation Hx of CABG (~2018) Hx of cholecystectomy Hx of endoscopy Hx of knee surgery Hx of tonsillectomy Family History Family History Father No problems noted. Mother Diabetes Hypercholesteremia Hypertension Stroke Social History Social History Household Members: Family Housing: Apartment Alcohol intake: never Smoking Status: Never smoker Tobacco Type: Cigarette Years Smoked: 20 Second Hand Smoke Exposure: No Use of substances other than those prescribed or required for medical reasons: No Advance Directives: No Advance Directives Information Provided: Yes service: No Current occupational status: disabled Physical Exam Vital Signs: Vital Signs: Last Vital Signs Temp 98.3 F 03/06/21 08:00 Pulse 76 03/06/21 15:16 Resp 15 03/06/21 15:16 BP 146/95 H 03/06/21 15:16 Pulse Ox 100 03/06/21 15:16 Body Mass Index 29.0 Const: General: cooperative, healthy appearing, no acute distress, alert and a wake Orientation/consciousness: patient oriented x3 Limitations: no limitations HENMT: Head: Yes normal to inspection and Yes atraumatic Ears: hearing grossly normal bilaterally General nose exam: Normal external nose present Face and sinus: Yes normal facial exam Eyes: General: appearance normal, both eyes and all related structures Pupils: Equal, round and reactive pupils present EOM: EOMs intact bilaterally Neck: Other: No midline cervical spinous tenderness Neck: Yes normal visual inspection and Yes no meningeal signs Chest: Chest palpation & inspection: normal inspection of the chest Resp: Effort & Inspection: normal respiratory effort Auscultation: clear to auscultation bilaterally, no rales, no rhonchi and no wheezes Cardio: Rate: regular rate Heart sounds: S1 normal heart sound present and S2 normal heart sound present GI: Inspection: Yes normal to inspection Palpation (GI): Soft to palpation, nontender, no guarding and not rigid Back/Spine/Pelvis: Other: No midline thoracic/lumbar spinous tenderness or step-off/deformity. + bilateral MSK thoracic/lumbar tenderness Skin: Rashes: no rashes Wounds: no wounds Neuro: Other: No saddle anesthesia General: patient oriented x3, tone normal, moves all extremities, no meningeal signs, no focal motor deficits and CN's II- XI intact bilaterally Cranial nerves: Yes Equal, round and reactive pupils present Motor exam (neuro): 5/5 motor strength present throughout Extrem: Other: Left shoulder with tenderness to palpation. No appreciable deformity. Neurovascular intact distally. Left knee with tenderness to palpation. Decreased flexion secondary to pain. General: Yes normal to inspection Course Course Course Narrative: -no leukocytosis, H&H stable, BUN and creatinine acute on chronically elevated, troponin 23 (chronically elevated)> will obtain 3 hour repeat. BNP 417 (chronically elevated) XR chest 1V IMPRESSION: Lungs clear. No acute intrathoracic disease -shoulder x-ray unremarkable. Knee x-ray without acute fracture or dislocation -orthostatic profoundly positive will give IVF and repeat -1525--repeat orthostatics persistently positive, patient unable to stand or ambulate due to symptoms. Repeat POC 244 after IVF. -UA chronically positive. IV Rocephin ordered. Will admit for further management MDM - Weakness MDM Narrative Medical decision making narrative: 60-year-old female with a past medical history of anemia, anxiety, throat is, CHF, COPD, CAD s/p CABG, CVA, diabetes, gastroparesis, GERD, IBS, CKD, DM, BIBA for generalized weakness and multiple falls at home this morning. On exam initially satting 89% on RA, does use home O2 as needed, physical exam as above, no focal neuro deficits, no midline spine tenderness throughout red flag symptoms/no saddle anesthesia. Concern for metabolic abnormalities vs infectious etiology vs ACS. Lower concern for CVA. Rule out fractures Plan: EKG, labs, UA, CXR, knee/shoulder x-ray, PT/CM consult Medical Records Attestation: I reviewed the patient's medical records. Lab Data Attestation: I reviewed the patient's lab results. Result diagrams: 03/06/21 09:21 03/06/21 09:21 Labs: Lab Results 03/06/21 03/06/21 03/06/21 Range/Units 08:27 09:21 09:21 WBC 9.3 (4.8-10.8) X10*3/uL RBC 4.17 L (4.20-5.50) X10*6/uL Hgb 12.3 (12.0-16.0) g/dl Hct 37.2 (37-47) % MCV 89.2 (80-98) fL MCH 29.5 (27.0-33.0) pg MCHC 33.1 (31.0-35.0) g/dl RDW 13.4 (11.0-16.0) % Plt Count 259 (160-400) X10*3/uL MPV 10.5 (9.4-12.3) fL Immature Gran % (Auto) 1.0 H (0.0-0.4) % Neut % (Auto) 77.1 H (45-73) % Lymph % (Auto) 14.6 L (20-40) % [place] % (Auto) 6.1 (2-11) % Eos % (Auto) 0.9 (0-4) % Baso % (Auto) 0.3 (0-2) % Lymph # (Auto) 1.4 (1.2-4.9) X10*3/uL [place] # (Auto) 0.6 (0.1-1.2) X10*3/uL Eos # (Auto) 0.1 (0.0-0.4) X10*3/uL Baso # (Auto) 0.0 (0.0-0.2) X10*3/uL Abs Immat Gran (auto) 0.09 H (0.00-0.03) X10*3/uL Absolute Neuts (auto) 7.2 (2.0-8.3) X10*3/uL Absolute Nucleated RBC 0.000 (0.0-0.012) X10*3/uL Nucleated RBC % (auto) 0.0 (0.0-0.2) /100WBC PT (10.8-13.0) SEC INR (0.9-1.1) APTT (24.1-38.0) SEC Sodium 136 (135-145) mmol/L Potassium 4.6 (3.3-5.1) mmol/L Chloride 96 (96-108) mmol/L Carbon Dioxide 26 (22-29) mmol/L Anion Gap 19 (12-20) BUN 29 H (9-16) mg/dL Creatinine 1.59 H (0.5-1.4) mg/dL Estim Creat Clear Calc 34.1 Estimated GFR 33 POC Glucose 369 H* (60-115) mg/dL Random Glucose 426 H* (60-115) mg/dL Calcium 9.3 D (8.4-10.2) mg/dL Magnesium (1.6-2.6) mg/dL Total Bilirubin 0.4 (0.0-1.0) mg/dL Direct Bilirubin 0.2 (0.0-0.5) mg/dL AST 24 (5-31) U/L ALT 23 (0-31) U/L Alkaline Phosphatase 123 H (39-117) U/L Total Creatine Kinase 32 D (26-140) U/L Troponin I High Sens (<3.5-17.0) ng/L B-Natriuretic Peptide (<100) pg/mL Total Protein 7.4 (6.5-8.0) g/dL Albumin 3.5 (3.5-5.0) g/dL Lipase (8-78) U/L Urine Color Urine Appearance Urine pH (5.0-8.0) Ur Specific [place] (1.005-1.025) Urine Protein (NEG-TRACE) MG/DL Urine Glucose (UA) (NEG) MG/DL Urine Ketones (NEG) MG/DL Urine Blood (NEG) Urine Nitrite (NEG) Ur Leukocyte Esterase (NEG) COVID-19 (KENJI) (Negative) COVID-19 Clin Com 03/06/21 03/06/21 03/06/21 Range/Units 09:21 09:21 09:21 WBC (4.8-10.8) X10*3/uL RBC (4.20-5.50) X10*6/uL Hgb (12.0-16.0) g/dl Hct (37-47) % MCV (80-98) fL MCH (27.0-33.0) pg MCHC (31.0-35.0) g/dl RDW (11.0-16.0) % Plt Count (160-400) X10*3/uL MPV (9.4-12.3) fL Immature Gran % (Auto) (0.0-0.4) % Neut % (Auto) (45-73) % Lymph % (Auto) (20-40) % [place] % (Auto) (2-11) % Eos % (Auto) (0-4) % Baso % (Auto) (0-2) % Lymph # (Auto) (1.2-4.9) X10*3/uL [place] # (Auto) (0.1-1.2) X10*3/uL Eos # (Auto) (0.0-0.4) X10*3/uL Baso # (Auto) (0.0-0.2) X10*3/uL Abs Immat Gran (auto) (0.00-0.03) X10*3/uL Absolute Neuts (auto) (2.0-8.3) X10*3/uL Absolute Nucleated RBC (0.0-0.012) X10*3/uL Nucleated RBC % (auto) (0.0-0.2) /100WBC PT 12.7 (10.8-13.0) SEC INR 1.1 (0.9-1.1) APTT 32.5 (24.1-38.0) SEC Sodium (135-145) mmol/L Potassium (3.3-5.1) mmol/L Chloride (96-108) mmol/L Carbon Dioxide (22-29) mmol/L Anion Gap (12-20) BUN (9-16) mg/dL Creatinine (0.5-1.4) mg/dL Estim Creat Clear Calc Estimated GFR POC Glucose (60-115) mg/dL Random Glucose (60-115) mg/dL Calcium (8.4-10.2) mg/dL Magnesium 1.7 (1.6-2.6) mg/dL Total Bilirubin (0.0-1.0) mg/dL Direct Bilirubin (0.0-0.5) mg/dL AST (5-31) U/L ALT (0-31) U/L Alkaline Phosphatase (39-117) U/L Total Creatine Kinase (26-140) U/L Troponin I High Sens 23.4 H (<3.5-17.0) ng/L B-Natriuretic Peptide 417 H (<100) pg/mL Total Protein (6.5-8.0) g/dL Albumin (3.5-5.0) g/dL Lipase 23 (8-78) U/L Urine Color Urine Appearance Urine pH (5.0-8.0) Ur Specific [place] (1.005-1.025) Urine Protein (NEG-TRACE) MG/DL Urine Glucose (UA) (NEG) MG/DL Urine Ketones (NEG) MG/DL Urine Blood (NEG) Urine Nitrite (NEG) Ur Leukocyte Esterase (NEG) COVID-19 ([facility]JI) (Negative) COVID-19 Clin Com 03/06/21 03/06/21 03/06/21 Range/Units 11:55 14:32 15:08 WBC (4.8-10.8) X10*3/uL RBC (4.20-5.50) X10*6/uL Hgb (12.0-16.0) g/dl Hct (37-47) % MCV (80-98) fL MCH (27.0-33.0) pg MCHC (31.0-35.0) g/dl RDW (11.0-16.0) % Plt Count (160-400) X10*3/uL MPV (9.4-12.3) fL Immature Gran % (Auto) (0.0-0.4) % Neut % (Auto) (45-73) % Lymph % (Auto) (20-40) % [place] % (Auto) (2-11) % Eos % (Auto) (0-4) % Baso % (Auto) (0-2) % Lymph # (Auto) (1.2-4.9) X10*3/uL [place] # (Auto) (0.1-1.2) X10*3/uL Eos # (Auto) (0.0-0.4) X10*3/uL Baso # (Auto) (0.0-0.2) X10*3/uL Abs Immat Gran (auto) (0.00-0.03) X10*3/uL Absolute Neuts (auto) (2.0-8.3) X10*3/uL Absolute Nucleated RBC (0.0-0.012) X10*3/uL Nucleated RBC % (auto) (0.0-0.2) /100WBC PT (10.8-13.0) SEC INR (0.9-1.1) APTT (24.1-38.0) SEC Sodium (135-145) mmol/L Potassium (3.3-5.1) mmol/L Chloride (96-108) mmol/L Carbon Dioxide (22-29) mmol/L Anion Gap (12-20) BUN (9-16) mg/dL Creatinine (0.5-1.4) mg/dL Estim Creat Clear Calc Estimated GFR POC Glucose 244 H (60-115) mg/dL Random Glucose (60-115) mg/dL Calcium (8.4-10.2) mg/dL Magnesium (1.6-2.6) mg/dL Total Bilirubin (0.0-1.0) mg/dL Direct Bilirubin (0.0-0.5) mg/dL AST (5-31) U/L ALT (0-31) U/L Alkaline Phosphatase (39-117) U/L Total Creatine Kinase (26-140) U/L Troponin I High Sens (<3.5-17.0) ng/L B-Natriuretic Peptide (<100) pg/mL Total Protein (6.5-8.0) g/dL Albumin (3.5-5.0) g/dL Lipase (8-78) U/L Urine Color YELLOW Urine Appearance CLOUDY Urine pH 5.5 (5.0-8.0) Ur Specific [place] 1.025 (1.005-1.025) Urine Protein 3+ H (NEG-TRACE) MG/DL Urine Glucose (UA) 500 H (NEG) MG/DL Urine Ketones NEG (NEG) MG/DL Urine Blood 1+ H (NEG) Urine Nitrite NEG (NEG) Ur Leukocyte Esterase TRACE H (NEG) COVID-19 (KENJI) Negative (Negative) COVID-19 Clin Com See Note ECG Data Attestation: I personally reviewed and interpreted this ECG as follows: ECG interpretation date: 03/06/21 ECG interpretation time: 09:15 Interpretation: EKG normal sinus rhythm with a rate of 78. Q-wave in lead 3 and AVF. No STEMI Discharge Plan Discharge Clinical Impression: Weakness, Falls, Orthostasis Prescriptions: No Action furosemide 40 mg tablet 40 mg PO DAILY Qty: 90 RF: 3 lorazepam 0.5 mg Tablet 0.5 mg PO BID PRN (Reason: Anxiety) RF: 0 atorvastatin 40 mg Tablet 40 mg PO BEDTIME RF: 0 metoprolol succinate [Toprol XL] 50 mg Tablet Extended Release 24 Hr 50 mg PO DAILY RF: 0 allopurinol 100 mg Tablet 100 mg PO DAILY RF: 0 albuterol sulfate 90 mcg/actuation Hfa Aerosol Inhaler 2 puff INHALATION Q6H PRN (Reason: Shortness Of Breath) RF: 0 Breo Ellipta 100-25 mcg/dose Blister With Device 1 inh INHALATION DAILY PRN (Reason: Shortness Of Breath) RF: 0 aspirin 81 mg Tablet,Delayed Release (Dr/Ec) 81 mg PO DAILY RF: 0 Hold Instructions: Resume on 01/13/21. tamsulosin 0.4 mg capsule 0.4 mg PO DAILY@1700 RF: 0 ferrous sulfate [iron] 325 mg (65 mg iron) Tablet 325 mg PO DAILY RF: 0 ergocalciferol (vitamin D2) 1,250 mcg (50,000 unit) capsule 1 cap PO SA@1000 RF: 0 amlodipine 5 mg tablet 5 mg PO DAILY RF: 0 insulin aspart U-100 [Novolog Flexpen U-100 Insulin] 100 unit/mL (3 mL) Insulin Pen 5 unit SUBCUT BIDAC RF: 0 loperamide 2 mg Tablet 2 mg PO QID PRN (Reason: Diarrhea) RF: 0 nitroglycerin 0.4 mg Tablet, Sublingual 0.4 mg SUBLINGUAL Q5M PRN (Reason: Chest Pain) RF: 0 melatonin 5 mg Tablet 5 mg PO BEDTIME PRN (Reason: Sleep) RF: 0 pantoprazole 20 mg tablet,delayed release (DR/EC) 1 tab PO DAILY RF: 0 gabapentin 100 mg capsule 200 mg PO TID RF: 0 fludrocortisone 0.1 mg tablet 1 tab PO DAILY RF: 0 Tresiba FlexTouch U-100 100 unit/mL (3 mL) insulin pen 12 unit subcut DAILY RF: 0
[2021-03-06 09:59] LABS: Lipase 23 U/L (8-78); Magnesium 1.7 mg/dL (1.6-2.6)
[2021-03-06 10:04] LABS: Alanine Aminotransferase 23 U/L (0-31); Albumin Level 3.5 g/dL (3.5-5.0); Alkaline Phosphatase 123 U/L (39-117); Anion Gap 19 (12-20); Aspartate Amino Transferase 24 U/L (5-31); Bilirubin Direct 0.2 mg/dL (0.0-0.5); Bilirubin Total 0.4 mg/dL (0.0-1.0); Blood Urea Nitrogen 29 mg/dL (9-16); Calcium 9.3 mg/dL (8.4-10.2); Carbon Dioxide 26 mmol/L (22-29); Chloride 96 mmol/L (96-108); Creatinine Clr Calc Pharmacy 34.1; Estimated Glomerular Filt Rate 33; Glucose Random 426 mg/dL (60-115); Potassium 4.6 mmol/L (3.3-5.1); Sodium 136 mmol/L (135-145); Total Protein 7.4 g/dL (6.5-8.0)
[2021-03-06 10:13] LABS: B Type Natriuretic Peptide 417 pg/mL (<100); Troponin-I High Sensitivity 23.4 ng/L (<3.5-17.0)
--- NOTE | 2021-03-06 10:48 | PC.NURSE ---
patient currently working with physical therapy
[2021-03-06 12:22] LABS: COVID-19 Test Negative (Negative); IDNOW Serial# 08D9AD1C
--- NOTE | 2021-03-06 13:00 | MHC.CM.PN ---
PT SEEN BY PT WHO IS RECOMMENDING HOME PHYSICAL THERAPY. PT IS ACTIVE WITH [facility] FOR CORRECTION. REFERRAL SENT WITH A REQUEST TO ADD PT. PT ALSO RECEIVES [employer].
[2021-03-06 14:37] LABS: Glucose, Whole Blood 244 mg/dL (60-115)
[2021-03-06 15:18] LABS: Glucose Urine UA 500 MG/DL (NEG); Leukocyte Esterase Urine TRACE (NEG); Nitrite Urine NEG (NEG); PH 5.5 (5.0-8.0); Specific Gravity - Urine 1.025 (1.005-1.025); UACC Culture Trigger YES; Urine Blood 1+ (NEG); Urine Ketones NEG (NEG); Urine Protein 3+ MG/DL (NEG-TRACE)
[2021-03-06 15:19] LABS: Appearance Urine CLOUDY; Color Urine YELLOW
[2021-03-06 15:26] LABS: Bacteria Urine 4+ /LPF; RBC Urine 0 /HPF (0); Squamous Epithelial Cell Urine 2+ /LPF; WBC Urine 50-75 /HPF (0-4)
[2021-03-06] MEDS: oxyCODONE HCl Immed Release 5 MG TABLET PO (15:56)
[2021-03-06] MEDS: cefTRIAXone sodium 1 GM in 0.9 % Sodium Chloride 50 ML IV (15:56)
--- NOTE | 2021-03-06 15:59 | PC.NURSE ---
Patient awake and alert. Skin pale, warm, dry. resp even and non labored. patient tearful, groaning in pain. c/o 10/10 upper abdominal pain and mid back pain. medicated as ordered. pt aware of plan of care
[2021-03-06 16:07] LABS: Troponin-I High Sensitivity 22.5 ng/L (<3.5-17.0)
--- NOTE | 2021-03-06 17:05 | PM.IMHP ---
History of Present Illness Date of Service: 03/06/21 Chief Complaint: weakness, fall 60-year-old femal with chronic anemia, anxiety, CKD, CHF, COPD, CAD s/p CABG, CVA, diabetes, gastroparesis, GERD, IBS, CKD, DM, UTI, orthostatic hypotension, frequent admissions here with generalized weakness ongoing for days and has been falling frequently. She has no head injury, no syncope. She c/o pain in knee, shoulder and abdominal pain associated with nausea and vomitting. Lab finding is consistent with UTI, there is no fever, she has positive orthostatic BP. Blood sugar is 426 earlier now 244. Creat is 1.59 Review of Systems Review of Systems: Gen: no fever Resp: no sob, no cough CV: no chest, no ORTEGA, no leg edema GI: + n/v, +abd pain Neuro: No confusion Musk: Back pain Yes all other systems are reviewed and are negative [facility] Medical History Anemia Anxiety Arthritis Cardiac pacemaker in situ Carpal tunnel syndrome CHF (congestive heart failure) Chronic heart failure with preserved ejection fraction (HFpEF) COPD exacerbation Coronary artery disease CVA (cerebral vascular accident) Diabetes Fall Gastritis Gastroparesis GERD (gastroesophageal reflux disease) Headache HLD (hyperlipidemia) HTN (hypertension) Hypocalcemia Hypoxia IBS (irritable bowel syndrome) Myocardial infarct Nausea and vomiting Renal failure T2DM (type 2 diabetes mellitus) UTI (urinary tract infection) Family History Father No problems noted. Mother Diabetes Hypercholesteremia Hypertension Stroke Surgical History H/O Achilles tendon repair History of appendectomy History of bladder surgery History of carpal tunnel release History of total hysterectomy with bilateral salpingo-oophorectomy (BSO) Hx of amputation Hx of CABG (~2019) Hx of cholecystectomy Hx of endoscopy Hx of knee surgery Hx of tonsillectomy Social History Household Members: Family Household Members Other:: 1 Housing: Apartment Do you presently have visiting nurse or other home services: Yes (ssrs report developer, vna) Alcohol intake: never Smoking Status: Never smoker Tobacco Type: Cigarette Years Smoked: 20 Second Hand Smoke Exposure: No Use of substances other than those prescribed or required for medical reasons: No Currently Displaying Signs/Symptoms of Drug Intoxication Withdrawal: No Have you been hit, kicked, punched, or otherwise hurt by someone within the past year? If so, by whom?: No Do you feel safe in your current relationship?: Yes Is there a partner from a previous relationship who is making you feel unsafe now?: No Are you made to feel afraid or neglected: No Advance Directives: No Advance Directives Information Provided: Yes Do you have thoughts of harming others: None Do you have a plan to hurt others: No Plan Recently lost weight without trying: No service: No Current occupational status: disabled Meds Allergies Allergy/AdvReac Type Severity Reaction Status Date / Time tetracycline [Tetracycline] Allergy Mild HIVES, Verified 11/13/20 13:41 anaphylaxis, anaphylaxis Active Medications: Current Medications Generic Name Dose Route Start Last Admin Trade Name Freq PRN Reason Stop Dose Admin Albuterol Sulfate 2 puff 03/06/21 16:52 Albuterol Sulfate 90 Mcg 8 Gm Inhaler INHALE Q6H PRN Shortness Of Breath Allopurinol 100 mg 03/07/21 09:00 Allopurinol 100 Mg Tablet PO DAILY [facility] Amlodipine Besylate 5 mg 03/07/21 09:00 Amlodipine Besylate 5 Mg Tablet PO DAILY [facility] Protocol Aspirin 81 mg 03/07/21 09:00 Aspirin Enteric Coated 81 Mg Tablet.Dr PO DAILY [facility] Atorvastatin Calcium 40 mg 03/06/21 21:00 Atorvastatin Calcium 40 Mg Tablet PO BEDTIME [facility] Enoxaparin Sodium 40 mg 03/06/21 17:00 Enoxaparin Sodium 40 Mg/0.4 Ml Syringe SUBCUT Q24H [facility] Ergocalciferol mcg 03/08/21 10:00 Ergocalciferol (Vitamin D2) 1,250 Mcg Capsule PO SA@1000 [facility] Fludrocortisone Acetate 0.1 mg 03/07/21 09:00 Fludrocortisone Acetate 0.1 Mg Tablet PO DAILY [facility] Fluticasone/Vilanterol 1 puff 03/06/21 16:52 Fluticasone/Vilanterol 100/25 Blst.W.Dev INHALE DAILY PRN Shortness Of Breath Furosemide 40 mg 03/07/21 09:00 Furosemide 40 Mg Tablet PO DAILY [facility] Protocol Gabapentin 200 mg 03/06/21 21:00 Gabapentin 100 Mg Capsule PO TID [facility] Lorazepam 0.5 mg 03/06/21 16:52 Lorazepam 0.5 Mg Tablet PO BID PRN Anxiety Metoprolol Succinate 50 mg 03/07/21 09:00 Metoprolol Succinate Er 50 Mg Tab.Er.24h PO DAILY [facility] Protocol Nitroglycerin 0.4 mg 03/06/21 16:52 Nitroglycerin 0.4 Mg Tab.Subl SUBLINGUAL Q5M PRN Chest Pain Non-Formulary Medication 325 mg 03/07/21 09:00 Ferrous Sulfate [Iron] PO DAILY [facility] Non-Formulary Medication 5 unit 03/07/21 07:30 Insulin Aspart U-100 [Novolog Flexpen U-100 Insulin] SUBCUT BIDAC [facility] Non-Formulary Medication 12 unit 03/07/21 09:00 Insulin Degludec [Tresiba Flextouch U-100] SUBCUT DAILY [facility] Non-Formulary Medication 2 mg 03/06/21 16:52 Loperamide PO QID PRN Diarrhea Non-Formulary Medication 5 mg 03/06/21 16:52 Melatonin PO BEDTIME PRN Sleep Non-Formulary Medication 1 tab 03/07/21 09:00 Pantoprazole PO DAILY [facility] Pharmacy Consult 1 each 03/06/21 11:12 Consult Rx Perform Med Rec MISCELLANE ONCE PRN Consult order Sodium Chloride 3 ml 03/07/21 00:00 0.9 % Sodium Chloride Flush 3 Ml Syringe IVFLUSH QSHIFT [facility] Tamsulosin HCl 0.4 mg 03/06/21 17:00 Tamsulosin Hcl 0.4 Mg Capsule PO DAILY@1700 [facility] Home Medications Medication Instructions Recorded Confirmed Last Taken Type lorazepam 0.5 mg PO BID PRN 09/14/20 03/06/21 Unknown History Breo Ellipta 1 inh INHALATION DAILY PRN 09/16/20 03/06/21 03/05/21 History albuterol sulfate 2 puff INHALATION Q6H PRN 09/16/20 03/06/21 03/05/21 History allopurinol 100 mg PO DAILY 09/16/20 03/06/21 03/05/21 History aspirin 81 mg PO DAILY 09/16/20 03/06/21 03/05/21 History atorvastatin 40 mg PO BEDTIME 09/16/20 03/06/21 03/05/21 History metoprolol succinate [Toprol XL] 50 mg PO DAILY 09/16/20 03/06/21 03/05/21 History insulin degludec 100 unit/mL (3 12 unit SUBCUT DAILY ml 11/13/20 03/06/21 03/05/21 History mL) subcutaneous pen amlodipine 5 mg PO DAILY 12/22/20 03/06/21 01/07/21 History ergocalciferol (vitamin D2) 1 cap PO SA@1000 12/22/20 03/06/21 03/05/21 History ferrous sulfate [iron] 325 mg PO DAILY 12/22/20 03/06/21 03/05/21 History tamsulosin 0.4 mg PO DAILY@1700 12/22/20 03/06/21 03/05/21 History insulin aspart U-100 [Novolog 5 unit SUBCUT BIDAC 01/08/21 03/06/21 03/05/21 History Flexpen U-100 Insulin] loperamide 2 mg PO QID PRN 01/08/21 03/06/21 03/05/21 History melatonin 5 mg PO BEDTIME PRN 01/08/21 03/06/21 03/05/21 History nitroglycerin 0.4 mg SUBLINGUAL Q5M PRN 01/08/21 03/06/21 Unknown History fludrocortisone 1 tab PO DAILY 03/06/21 03/06/21 Unknown History gabapentin 200 mg PO TID 03/06/21 03/06/21 03/05/21 History pantoprazole 1 tab PO DAILY 03/06/21 03/06/21 03/05/21 History Physical Exam Vital Signs and Narrative: Vital Signs: Last Vital Signs Temp 98.3 F 03/06/21 08:00 Pulse 76 03/06/21 16:01 Resp 20 03/06/21 16:01 BP 174/93 H 03/06/21 16:01 Pulse Ox 97 03/06/21 16:01 Body Mass Index 29.0 Const: Other: Constitutional Awake and Alert, No apparent distress Neck Supple, No lymphadenopathy Cardiovascular RRR, No M/R/G, S1 S2, No S3 S4, No pedal edema Respiratory Lungs clear, No respiratory distress Gastrointestinal Non tender, Non-distended Skin No rash Neurological Alert & oriented x3 Psychological Appropriate affect Results Labs CBC and Chem 7: 03/06/21 09:21 03/06/21 09:21 Labs: Laboratory Results - last 24 hr 03/06/21 03/06/21 03/06/21 08:27 09:21 09:21 MCV 89.2 MCH 29.5 MCHC 33.1 RDW 13.4 Plt Count 259 MPV 10.5 Immature Gran % (Auto) 1.0 H Neut % (Auto) 77.1 H Lymph % (Auto) 14.6 L [place] % (Auto) 6.1 Eos % (Auto) 0.9 Baso % (Auto) 0.3 Lymph # (Auto) 1.4 [place] # (Auto) 0.6 Eos # (Auto) 0.1 Baso # (Auto) 0.0 Abs Immat Gran (auto) 0.09 H Absolute Neuts (auto) 7.2 Absolute Nucleated RBC 0.000 Nucleated RBC % (auto) 0.0 PT INR APTT Anion Gap 19 Estim Creat Clear Calc 34.1 Estimated GFR 33 POC Glucose 369 H* Random Glucose 426 H* Calcium 9.3 D Magnesium Total Bilirubin 0.4 Direct Bilirubin 0.2 AST 24 ALT 23 Alkaline Phosphatase 123 H Total Creatine Kinase 32 D Troponin I High Sens B-Natriuretic Peptide Total Protein 7.4 Albumin 3.5 Lipase Urine Color Urine Appearance Urine pH Ur Specific [place] Urine Protein Urine Glucose (UA) Urine Ketones Urine Blood Urine Nitrite Ur Leukocyte Esterase Urine RBC Urine WBC Ur Squamous Epith Cells Urine Bacteria COVID-19 ([facility]) COVID-19 Clin Com 03/06/21 03/06/21 03/06/21 09:21 09:21 09:21 MCV MCH MCHC RDW Plt Count MPV Immature Gran % (Auto) Neut % (Auto) Lymph % (Auto) [place] % (Auto) Eos % (Auto) Baso % (Auto) Lymph # (Auto) [place] # (Auto) Eos # (Auto) Baso # (Auto) Abs Immat Gran (auto) Absolute Neuts (auto) Absolute Nucleated RBC Nucleated RBC % (auto) PT 12.7 INR 1.1 APTT 32.5 Anion Gap Estim Creat Clear Calc Estimated GFR POC Glucose Random Glucose Calcium Magnesium 1.7 Total Bilirubin Direct Bilirubin AST ALT Alkaline Phosphatase Total Creatine Kinase Troponin I High Sens 23.4 H B-Natriuretic Peptide 417 H Total Protein Albumin Lipase 23 Urine Color Urine Appearance Urine pH Ur Specific [place] Urine Protein Urine Glucose (UA) Urine Ketones Urine Blood Urine Nitrite Ur Leukocyte Esterase Urine RBC Urine WBC Ur Squamous Epith Cells Urine Bacteria COVID-19 ([facility]) COVID-19 Clin Com 03/06/21 03/06/21 03/06/21 11:55 14:32 15:08 MCV MCH MCHC RDW Plt Count MPV Immature Gran % (Auto) Neut % (Auto) Lymph % (Auto) [place] % (Auto) Eos % (Auto) Baso % (Auto) Lymph # (Auto) [place] # (Auto) Eos # (Auto) Baso # (Auto) Abs Immat Gran (auto) Absolute Neuts (auto) Absolute Nucleated RBC Nucleated RBC % (auto) PT INR APTT Anion Gap Estim Creat Clear Calc Estimated GFR POC Glucose 244 H Random Glucose Calcium Magnesium Total Bilirubin Direct Bilirubin AST ALT Alkaline Phosphatase Total Creatine Kinase Troponin I High Sens B-Natriuretic Peptide Total Protein Albumin Lipase Urine Color YELLOW Urine Appearance CLOUDY Urine pH 5.5 Ur Specific [place] 1.025 Urine Protein 3+ H Urine Glucose (UA) 500 H Urine Ketones NEG Urine Blood 1+ H Urine Nitrite NEG Ur Leukocyte Esterase TRACE H Urine RBC 0 Urine WBC 50-75 H Ur Squamous Epith Cells 2+ Urine Bacteria 4+ COVID-19 ([facility]) Negative COVID-19 Clin Com See Note 03/06/21 15:20 MCV MCH MCHC RDW Plt Count MPV Immature Gran % (Auto) Neut % (Auto) Lymph % (Auto) [place] % (Auto) Eos % (Auto) Baso % (Auto) Lymph # (Auto) [place] # (Auto) Eos # (Auto) Baso # (Auto) Abs Immat Gran (auto) Absolute Neuts (auto) Absolute Nucleated RBC Nucleated RBC % (auto) PT INR APTT Anion Gap Estim Creat Clear Calc Estimated GFR POC Glucose Random Glucose Calcium Magnesium Total Bilirubin Direct Bilirubin AST ALT Alkaline Phosphatase Total Creatine Kinase Troponin I High Sens 22.5 H B-Natriuretic Peptide Total Protein Albumin Lipase Urine Color Urine Appearance Urine pH Ur Specific [place] Urine Protein Urine Glucose (UA) Urine Ketones Urine Blood Urine Nitrite Ur Leukocyte Esterase Urine RBC Urine WBC Ur Squamous Epith Cells Urine Bacteria COVID-19 ([facility]) COVID-19 Clin Com Imaging Radiologist's Impressions: Impressions Knee X-Ray 03/06/21 08:33 IMPRESSION: 1. No acute fracture or dislocation. 2. Chronic arthropathy medial compartment with suprapatellar effusion, similar to prior study 12/22/2020. Findings possibly sequela from remote trauma and/or subchondral osteonecrosis femoral condyle. Shoulder X-Ray 03/06/21 08:33 IMPRESSION: No fracture or dislocation. Chest X-Ray 03/06/21 08:34 IMPRESSION: Lungs clear. No acute intrathoracic disease. Assessment and Plan (1) Weakness: Status: Acute (2) Falls: Status: Acute (3) Orthostasis: Status: Acute (4) Vomiting: Qualifiers: Nausea presence: with nausea Vomiting Intractability: intractable Vomiting type: unspecified Qualified Code(s): R11.2 - Nausea with vomiting, unspecified Status: Acute (5) Gastroparesis: Status: Acute (6) HTN (hypertension): Qualifiers: Hypertension type: unspecified Qualified Code(s): I10 - Essential (primary) hypertension Status: Acute (7) ISA (acute kidney injury): Status: Acute (8) UTI (urinary tract infection): Status: Acute 60yo F with HFpEF, DM, CKD, HTN, chronic anemia, orthostatic hypotension, recurrent UTI, CAD s/p CABG here with gen weaknness, falls and finding of orthostatic hypotension #Weakness likly multifactorial from UTI, hyperglycemia, orthostatic hypotension. -address underlying issues # acute/chronic HFpEF - IV diuretics and reassess tomorrow - continue metoprolol # acute hypoxic resp failure with O2 sat 89 - apply O2 # hs-Tn-I indeterminate 22, repeat # COPD exacerbation--no acute exacerbation - PRN, nebulized bronchodilators, continue ICS/LABA # normocytic anemia--anemia of chronic disease, stable. Iron #UTI--Rocephin #Orthostatic hypotension--d/t autonomic insuficiency -continue florinef #Diabetes Gastroparesis--Antiemetics # CKD 3, stable. # CAD - continue ASA, metoprolol, Statin # HTN - continue amlodipine, metoprolol, Lasix # DM2, uncontrolled w - continue Lantus + Humalog # gout - continue allopurinol # neuropathy - continue gabapentin #GERD--Omeprazole # depression/amxiety--Ativan SC heparin for DVT PT/OT
[2021-03-06] MEDS: Furosemide 20 MG/2 ML VIAL IVPUSH (18:20)
[2021-03-06] MEDS: Tamsulosin HCL 0.4 MG CAPSULE PO (18:20)
--- NOTE | 2021-03-06 18:49 | PC.NURSE ---
report given to RN on IMC
[2021-03-06] MEDS: Morphine Sulfate 2 MG/ML CARTRIDGE IVPUSH (20:05)
[2021-03-06 21:19] LABS: Glucose, Whole Blood 212 mg/dL (60-115)
[2021-03-06] MEDS: Melatonin 3 MG TABLET PO (21:22)
[2021-03-06] MEDS: Heparin Sodium,Porcine 5,000 UNIT/ML VIAL 5000 UNIT SUBCUT (21:22)
[2021-03-06] MEDS: Atorvastatin Calcium 40 MG TABLET PO (21:22)
[2021-03-06] MEDS: Gabapentin 100 MG CAPSULE 200 MG PO (21:22)
[2021-03-06] MEDS: Insulin Lispro 100 UNIT/ML 3 ML VIAL SUBCUT (21:23)
[2021-03-06 21:34] LABS: Troponin-I High Sensitivity 20.5 ng/L (<3.5-17.0)
[2021-03-06] MEDS: 0.9 % Sodium Chloride Flush 3 ML SYRINGE IVFLUSH (22:15)
[2021-03-07] VITALS (8 sets, daily range): BP systolic 95–200; BP diastolic 54–99; PULSE 89–109; RESP 12–16; TEMP 36–36.7; O2SAT 94–97
[2021-03-07] MEDS: Metoclopramide HCl 10 MG/2 ML VIAL 5 MG IVPUSH (03:38)
--- NOTE | 2021-03-07 03:39 | MHC.PIE ---
p; pt c/o n/v. note; no prn nausea med? i; dr washburn notified; new order reglan 5 mg iv now e; will cont to monitor
[2021-03-07] MEDS: Omeprazole 20 MG CAPSULE.DR PO (05:49)
[2021-03-07] MEDS: Morphine Sulfate 2 MG/ML CARTRIDGE IVPUSH ×4 (05:49→19:26)
[2021-03-07] MEDS: Insulin Lispro 100 UNIT/ML 3 ML VIAL SUBCUT ×6 (08:26→20:56)
[2021-03-07] MEDS: 0.9 % Sodium Chloride Flush 3 ML SYRINGE IVFLUSH ×3 (08:29→20:57)
--- NOTE | 2021-03-07 09:14 | P.PNIM_ITS ---
Subjective Subjective Date of Service: 03/11/21 Interval History: Seen in f/u for chf, weakness, fall, gastroparesis. s/to c/o n/v and bdominal and no respiratory difficulty Review of Systems Gen: no fever Resp: no sob, no cough CV: no chest, no ORTEGA, no leg edema GI: + n/v, +abd pain Neuro: No confusion Musk: Back pain Physical Exam Vital Signs: Vital Signs: Last Vital Signs Temp 98.1 F 03/07/21 07:09 Pulse 100 03/07/21 07:09 Resp 16 03/07/21 07:09 BP 176/88 H 03/07/21 07:09 Pulse Ox 97 03/07/21 07:09 Body Mass Index 29.0 Const: Other: Constitutional Awake and Alert, No apparent distress Neck Supple, No lymphadenopathy Cardiovascular RRR, No M/R/G, S1 S2, No S3 S4, No pedal edema Respiratory Lungs clear, No respiratory distress Gastrointestinal Non tender, Non-distended Skin No rash Neurological Alert & oriented x3 Psychological Appropriate affect Objective Data Current Medications Generic Name Dose Route Start Last Admin Trade Name Freq PRN Reason Stop Dose Admin Albuterol Sulfate 2 puff 03/06/21 16:52 Albuterol Sulfate 90 Mcg 8 Gm Inhaler INHALE Q6H PRN Shortness Of Breath Allopurinol 100 mg 03/07/21 09:00 Allopurinol 100 Mg Tablet PO DAILY [facility] Amlodipine Besylate 5 mg 03/07/21 09:00 Amlodipine Besylate 5 Mg Tablet PO DAILY [facility] Protocol Aspirin 81 mg 03/07/21 09:00 Aspirin Enteric Coated 81 Mg Tablet. PO DAILY [facility] Atorvastatin Calcium 40 mg 03/06/21 21:00 03/06/21 21:22 Atorvastatin Calcium 40 Mg Tablet PO 40 mg BEDTIME [facility] Administration Ergocalciferol 1,250 mcg 03/08/21 10:00 Ergocalciferol (Vitamin D2) 1,250 Mcg Capsule PO SA@1000 [facility] Ferrous Sulfate 324 mg 03/07/21 09:00 Ferrous Sulfate 324 Mg Tablet. PO DAILY [facility] Fludrocortisone Acetate 0.1 mg 03/07/21 09:00 Fludrocortisone Acetate 0.1 Mg Tablet PO DAILY [facility] Fluticasone/Vilanterol 1 puff 03/07/21 09:00 Fluticasone/Vilanterol 100/25 Blst.W.Dev INHALE DAILY [facility] Furosemide 40 mg 03/07/21 09:00 Furosemide 40 Mg Tablet PO DAILY [facility] Protocol Gabapentin 200 mg 03/06/21 21:00 03/06/21 21:22 Gabapentin 100 Mg Capsule PO 200 mg TID [facility] Administration Heparin Sodium (Porcine) 5,000 unit 03/06/21 21:00 03/06/21 21:22 Heparin Sodium,Porcine 5,000 Unit/Ml Vial SUBCUT 5,000 unit BID [facility] Administration Insulin Glargine 8 unit 03/07/21 09:00 Insulin Glargine,Hum.Rec.Anlog 100 Unit/Ml 10 Ml Vial SUBCUT DAILY [facility] Insulin Human Lispro 5 unit 03/07/21 07:30 03/07/21 08:26 Insulin Lispro 100 Unit/Ml 3 Ml Vial SUBCUT 5 unit BIDAC [facility] Administration Insulin Human Lispro 0 unit 03/06/21 21:00 03/07/21 08:27 Insulin Lispro 100 Unit/Ml 3 Ml Vial SUBCUT 8 unit QIDACHS [facility] Administration Protocol Loperamide HCl 2 mg 03/06/21 17:15 Loperamide Hcl 2 Mg Capsule PO QID PRN Diarrhea Lorazepam 0.5 mg 03/06/21 16:52 Lorazepam 0.5 Mg Tablet PO BID PRN Anxiety Melatonin 3 mg 03/06/21 17:15 03/06/21 21:22 Melatonin 3 Mg Tablet PO 3 mg BEDTIME PRN Administration Sleep Metoprolol Succinate 50 mg 03/07/21 09:00 Metoprolol Succinate Er 50 Mg Tab.Er.24h PO DAILY [facility] Protocol Morphine Sulfate 2 mg 03/06/21 17:32 03/07/21 05:49 Morphine Sulfate 2 Mg/Ml Cartridge IVPUSH 2 mg Q4H PRN Administration Pain, Severe (Pain Scale 7-10) Nitroglycerin 0.4 mg 03/06/21 16:52 Nitroglycerin 0.4 Mg Tab.Subl SUBLINGUAL Q5M PRN Chest Pain Omeprazole 20 mg 03/07/21 06:30 03/07/21 05:49 Omeprazole 20 Mg Capsule. PO 20 mg DAILY@0630 [facility] Administration Ondansetron HCl 4 mg 03/07/21 09:08 Ondansetron Hcl 4 Mg/2 Ml Vial IVPUSH Q8H PRN Nausea and Vomiting Pharmacy Consult 1 each 03/06/21 11:12 Consult Rx Perform Med Rec MISCELLANE ONCE PRN Consult order Sodium Chloride 3 ml 03/07/21 00:00 03/07/21 08:29 0.9 % Sodium Chloride Flush 3 Ml Syringe IVFLUSH 3 ml QSHIFT [facility] Administration Tamsulosin HCl 0.4 mg 03/06/21 17:00 03/06/21 18:20 Tamsulosin Hcl 0.4 Mg Capsule PO 0.4 mg DAILY@1700 [facility] Administration Labs CBC & Chem 7: 03/06/21 09:21 03/11/21 06:00 Microbiology Microbiology Results: Microbiology 03/06/21 15:21 Urine clean catch - Clean Catch Midstream Urine Culture - Preliminary Gram negative ben Assessment and Plan (1) Weakness: Status: Acute (2) Falls: Status: Acute (3) Orthostasis: Status: Acute (4) Vomiting: Status: Acute (5) Gastroparesis: Status: Acute (6) HTN (hypertension): Status: Acute (7) ISA (acute kidney injury): Status: Acute (8) UTI (urinary tract infection): Status: Acute Assessment and Plan: 60yo F with HFpEF, DM, CKD, HTN, chronic anemia, orthostatic hypotension, recurrent UTI, CAD s/p CABG here with gen weaknness, falls and finding of orthostatic hypotension #Weakness likly multifactorial from UTI, hyperglycemia, orthostatic hypotension. -address underlying issues # Acute/chronic HFpEF - IV diuretics yesterday, continue home oral Lasix - continue metoprolol # Acute on chronic hypoxic resp failure with O2 sat 89, but is better with O2 and is supposed to be on home O2 # hs-Tn-I indeterminate 22, repeat unchanged # COPD exacerbation--no acute exacerbation - PRN, nebulized bronchodilators, continue ICS/LABA # normocytic anemia--anemia of chronic disease, stable. Iron #UTI--Rocephin, follow culture #Orthostatic hypotension--d/t autonomic insuficiency -continue florinef #Diabetes Gastroparesis/chronic abdomianal pain--Antiemetics, morphine for pain # CKD 3, stable. # CAD - continue ASA, metoprolol, Statin # HTN - continue amlodipine, metoprolol, Lasix # DM2, uncontrolled w - continue Lantus + Humalog # gout - continue allopurinol # neuropathy - continue gabapentin #GERD--Omeprazole # depression/amxiety--Ativan SC heparin for DVT PT/OT
[2021-03-07] MEDS: Fluticasone/Vilanterol 100/25 BLST.W.DEV 1 PUFF INHALE (09:23)
[2021-03-07] MEDS: ondansetron HCL 4 MG/2 ML VIAL IVPUSH ×2 (09:37→16:26)
[2021-03-07] MEDS: Insulin Glargine,Hum.rec.anlog 100 UNIT/ML 10 ML VIAL 8 UNIT SUBCUT (09:40)
[2021-03-07] MEDS: Heparin Sodium,Porcine 5,000 UNIT/ML VIAL 5000 UNIT SUBCUT ×2 (09:41→20:53)
--- NOTE | 2021-03-07 10:24 | MHC.CM.PN ---
Addendum entered by Melina Vyas 03/07/21 15:01: PATIENT WAS EVALUATED BY PHYSICAL THEAPRY AND RECOMENDED HOME PT, THIS WAS CALLED TO VIVIEN chatterjee and she reportred that [facility] will provide the home physical theapry she also confirmed that patient has home oxygen via [employer] Original Note: nurse customer care associate note electronic medical record reviewed , met with patient she reported she lives with her granddaughter, she has child adolescent psychiatrist services from [facility] to assist her with her adls ,she to mental health services in the community for her anxiety and depression and [facility] for nursing, telephone call to sen at [facility] if patient needs home physical therapy they can provide this services .medicare imm explained and left with patient to review discharge plan home with her granddaughter, resumption of her services with [facility] for nursing self resumption of her services with [facility] for her child adolescent psychiatrist self resumption of her mental health counseling transportation patient to [facility] with her child adolescent psychiatrist pcp dr yusef landry requested copy of health care proxy
[2021-03-07 11:47] LABS: Glucose, Whole Blood 319 mg/dL (60-115)
[2021-03-07 11:48] LABS: Glucose, Whole Blood 253 mg/dL (60-115)
--- NOTE | 2021-03-07 12:08 | PC.NURSE ---
Dr Proctor notified and aware of pt refusal for po meds at this time due to nausea.
[2021-03-07 17:10] LABS: Glucose, Whole Blood 250 mg/dL (60-115)
[2021-03-07 20:31] LABS: Glucose, Whole Blood 218 mg/dL (60-115)
[2021-03-08] VITALS (9 sets, daily range): BP systolic 93–193; BP diastolic 51–98; PULSE 80–114; RESP 14–18; TEMP 35.9–36.6; O2SAT 94–97
[2021-03-08] MEDS: Morphine Sulfate 2 MG/ML CARTRIDGE IVPUSH ×4 (05:22→18:36)
[2021-03-08] MEDS: ondansetron HCL 4 MG/2 ML VIAL IVPUSH ×3 (05:23→20:58)
[2021-03-08] MEDS: Omeprazole 20 MG CAPSULE.DR PO (06:03)
[2021-03-08 08:07] LABS: Glucose, Whole Blood 252 mg/dL (60-115)
[2021-03-08] MEDS: Insulin Lispro 100 UNIT/ML 3 ML VIAL SUBCUT ×5 (08:23→16:50)
[2021-03-08] MEDS: 0.9 % Sodium Chloride Flush 3 ML SYRINGE IVFLUSH ×3 (08:24→20:58)
[2021-03-08] MEDS: Insulin Glargine,Hum.rec.anlog 100 UNIT/ML 10 ML VIAL 8 UNIT SUBCUT (08:24)
[2021-03-08] MEDS: Heparin Sodium,Porcine 5,000 UNIT/ML VIAL 5000 UNIT SUBCUT ×2 (08:24→20:57)
[2021-03-08] MEDS: Metoprolol Succinate ER 50 MG TAB.ER.24H PO (10:19)
[2021-03-08] MEDS: amLODIPine Besylate 5 MG TABLET PO (10:21)
[2021-03-08] MEDS: Furosemide 40 MG TABLET PO (10:22)
--- NOTE | 2021-03-08 10:29 | HO.PM.IMPN ---
Subjective Subjective Date of Service: 03/08/21 Interval History: Patient complaining of nausea and abdominal pain refusing to eat and take medication, noted to have elevated blood pressure and pulse. ROS General no headache, , no fever chills. CVS no chest pain, no palpitation. Respiratory no cough, no sob. Gastrointestinal nausea ,mid abdominal pain,no diarrhea Physical Exam Vital Signs: Vital Signs: Last Vital Signs Temp 96.7 F L 03/08/21 07:33 Pulse 114 H 03/08/21 10:21 Resp 18 03/08/21 07:33 BP 186/92 H 03/08/21 10:21 Pulse Ox 94 03/08/21 07:33 Body Mass Index 29.0 Constitutional no acute distress Neck Supple Cardiovascular RRR, No M/R/G, S1 S2, No S3 S4, No pedal edema Respiratory Lungs clear, No respiratory distress Gastrointestinal mild epigastric tenderness to palpation, bowel sounds are audible, no abdominal distension Skin No rash Neurological Alert & oriented x3 Psychological Appropriate affect Objective Data Current Medications Generic Name Dose Route Start Last Admin Trade Name Freq PRN Reason Stop Dose Admin Albuterol Sulfate 2 puff 03/06/21 16:52 Albuterol Sulfate 90 Mcg 8 Gm Inhaler INHALE Q6H PRN Shortness Of Breath Allopurinol 100 mg 03/07/21 09:00 03/08/21 10:26 Allopurinol 100 Mg Tablet PO Not Given DAILY [facility] Amlodipine Besylate 5 mg 03/07/21 09:00 03/08/21 10:21 Amlodipine Besylate 5 Mg Tablet PO 5 mg DAILY [facility] Administration Protocol Aspirin 81 mg 03/07/21 09:00 03/08/21 10:27 Aspirin Enteric Coated 81 Mg Tablet. PO Not Given DAILY [facility] Atorvastatin Calcium 40 mg 03/06/21 21:00 03/07/21 20:52 Atorvastatin Calcium 40 Mg Tablet PO Not Given BEDTIME [facility] Ergocalciferol 1,250 mcg 03/08/21 10:00 03/08/21 10:27 Ergocalciferol (Vitamin D2) 1,250 Mcg Capsule PO Not Given SA@1000 [facility] Ferrous Sulfate 324 mg 03/07/21 09:00 03/08/21 10:27 Ferrous Sulfate 324 Mg Tablet. PO Not Given DAILY [facility] Fludrocortisone Acetate 0.1 mg 03/07/21 09:00 03/08/21 10:27 Fludrocortisone Acetate 0.1 Mg Tablet PO Not Given DAILY [facility] Fluticasone/Vilanterol 1 puff 03/07/21 09:00 03/08/21 07:38 Fluticasone/Vilanterol 100/25 Blst.W.Dev INHALE Not Given DAILY [facility] Furosemide 40 mg 03/07/21 09:00 03/08/21 10:22 Furosemide 40 Mg Tablet PO 40 mg DAILY [facility] Administration Protocol Gabapentin 200 mg 03/06/21 21:00 03/08/21 10:27 Gabapentin 100 Mg Capsule PO Not Given TID [facility] Heparin Sodium (Porcine) 5,000 unit 03/06/21 21:00 03/08/21 08:24 Heparin Sodium,Porcine 5,000 Unit/Ml Vial SUBCUT 5,000 unit BID [facility] Administration Insulin Glargine 8 unit 03/07/21 09:00 03/08/21 08:24 Insulin Glargine,Hum.Rec.Anlog 100 Unit/Ml 10 Ml Vial SUBCUT 8 unit DAILY [facility] Administration Insulin Human Lispro 5 unit 03/07/21 07:30 03/08/21 08:23 Insulin Lispro 100 Unit/Ml 3 Ml Vial SUBCUT 5 unit BIDAC [facility] Administration Insulin Human Lispro 0 unit 03/06/21 21:00 03/08/21 08:23 Insulin Lispro 100 Unit/Ml 3 Ml Vial SUBCUT 6 unit QIDACHS [facility] Administration Protocol Loperamide HCl 2 mg 03/06/21 17:15 Loperamide Hcl 2 Mg Capsule PO QID PRN Diarrhea Lorazepam 0.5 mg 03/06/21 16:52 Lorazepam 0.5 Mg Tablet PO BID PRN Anxiety Melatonin 3 mg 03/06/21 17:15 03/06/21 21:22 Melatonin 3 Mg Tablet PO 3 mg BEDTIME PRN Administration Sleep Metoprolol Succinate 50 mg 03/07/21 09:00 03/08/21 10:19 Metoprolol Succinate Er 50 Mg Tab.Er.24h PO 50 mg DAILY [facility] Administration Protocol Morphine Sulfate 2 mg 03/06/21 17:32 03/08/21 05:22 Morphine Sulfate 2 Mg/Ml Cartridge IVPUSH 2 mg Q4H PRN Administration Pain, Severe (Pain Scale 7-10) Nitroglycerin 0.4 mg 03/06/21 16:52 Nitroglycerin 0.4 Mg Tab.Subl SUBLINGUAL Q5M PRN Chest Pain Omeprazole 20 mg 03/07/21 06:30 03/08/21 06:03 Omeprazole 20 Mg Capsule. PO 20 mg DAILY@0630 [facility] Administration Ondansetron HCl 4 mg 03/07/21 09:08 03/08/21 05:23 Ondansetron Hcl 4 Mg/2 Ml Vial IVPUSH 4 mg Q8H PRN Administration Nausea and Vomiting Pharmacy Consult 1 each 03/06/21 11:12 Consult Rx Perform Med Rec MISCELLANE ONCE PRN Consult order Sodium Chloride 3 ml 03/07/21 00:00 03/08/21 08:24 0.9 % Sodium Chloride Flush 3 Ml Syringe IVFLUSH 3 ml QSHIFT [facility] Administration Tamsulosin HCl 0.4 mg 03/06/21 17:00 03/07/21 17:15 Tamsulosin Hcl 0.4 Mg Capsule PO Not Given DAILY@1700 [facility] Labs CBC & Chem 7: 03/06/21 09:21 03/06/21 09:21 Microbiology Microbiology Results: Microbiology 03/06/21 15:21 Urine clean catch - Clean Catch Midstream Urine Culture - Final Klebsiella pneumoniae Assessment and Plan (1) Orthostasis: Status: Acute (2) UTI (urinary tract infection): Status: Acute (3) Weakness: Status: Acute (4) Gastroparesis: Status: Acute (5) HTN (hypertension): Status: Acute (6) Acute hyperglycemia: Status: Acute Assessment and Plan: 60yo F with HFpEF, DM, CKD, HTN, chronic anemia, orthostatic hypotension, recurrent UTI, CAD s/p CABG here with gen weaknness, falls and finding of orthostatic hypotension # abdominal pain/ Diabetes Gastroparesis has chronic abdomianal pain will continue Antiemetics, morphine for pain, encourage by mouth intake, will rapidly wean narcotics. #Weakness likly multifactorial from UTI, hyperglycemia, orthostatic hypotension. Treat infection, encourage out of bed. # Acute/chronic HFpEF - s/p IV diuretics 03/06 , appears compensated continue home oral Lasix and metoprolol # Acute on chronic hypoxic resp failure with O2 sat 89, but is better with O2 and is supposed to be on home O2, now finger oximetry 94% on room air. # COPD exacerbation--no acute exacerbation continue PRN, bronchodilators, continue ICS/LABA # normocytic anemia--anemia of chronic disease, stable. Iron #UTI- iv Rocephin, urine culture grew Klebsiella pneumoniae sensitive to ceftriaxone, no fever chills #Orthostatic hypotension--d/t autonomic insuficiency will continue florinef # CKD 3, stable. # CAD - continue ASA, metoprolol, Statin, troponin elevated and flat, with no chest pain no further workup warranted. # HTN - continue amlodipine, metoprolol, Lasix, encouraged to take medications. # DM2, uncontrolled follow blood sugar closely, continue Lantus + Humalog # gout no acute flare, continue allopurinol # neuropathy due to diabetes mellitus, continue gabapentin #GERD--Omeprazole # depression/amxiety--Ativan SC heparin for DVT PT/OT
[2021-03-08] MEDS: cefTRIAXone sodium 1 GM in 0.9 % Sodium Chloride 50 ML IV (11:14)
[2021-03-08 11:48] LABS: Glucose, Whole Blood 195 mg/dL (60-115)
[2021-03-08] MEDS: Gabapentin 100 MG CAPSULE 200 MG PO ×2 (15:01→20:58)
[2021-03-08 16:34] LABS: Glucose, Whole Blood 162 mg/dL (60-115)
[2021-03-08] MEDS: Tamsulosin HCL 0.4 MG CAPSULE PO (16:49)
[2021-03-08 20:34] LABS: Glucose, Whole Blood 100 mg/dL (60-115)
[2021-03-08] MEDS: Atorvastatin Calcium 40 MG TABLET PO (20:58)
[2021-03-09] VITALS (9 sets, daily range): BP systolic 119–149; BP diastolic 61–73; PULSE 68–78; RESP 16–18; TEMP 36.2–36.7; O2SAT 92–98
[2021-03-09] MEDS: Morphine Sulfate 2 MG/ML CARTRIDGE IVPUSH ×5 (00:04→19:24)
[2021-03-09] MEDS: Omeprazole 20 MG CAPSULE.DR PO (05:50)
[2021-03-09 07:45] LABS: Anion Gap 16 (12-20); Blood Urea Nitrogen 45 mg/dL (9-16); Carbon Dioxide 29 mmol/L (22-29); Chloride 100 mmol/L (96-108); Creatinine Clr Calc Pharmacy 29.2; Estimated Glomerular Filt Rate 27; Glucose Random 178 mg/dL (60-115); Potassium 3.9 mmol/L (3.3-5.1); Sodium 141 mmol/L (135-145)
[2021-03-09 07:57] LABS: Calcium 8.1 mg/dL (8.4-10.2)
[2021-03-09] MEDS: Fluticasone/Vilanterol 100/25 BLST.W.DEV 1 PUFF INHALE (08:01)
[2021-03-09] MEDS: Insulin Glargine,Hum.rec.anlog 100 UNIT/ML 10 ML VIAL 8 UNIT SUBCUT (08:03)
[2021-03-09] MEDS: Insulin Lispro 100 UNIT/ML 3 ML VIAL SUBCUT ×6 (08:03→21:10)
[2021-03-09] MEDS: 0.9 % Sodium Chloride Flush 3 ML SYRINGE IVFLUSH ×3 (08:03→21:10)
[2021-03-09] MEDS: ondansetron HCL 4 MG/2 ML VIAL IVPUSH ×2 (08:04→16:41)
[2021-03-09] MEDS: amLODIPine Besylate 5 MG TABLET PO (08:04)
[2021-03-09] MEDS: Fludrocortisone Acetate 0.1 MG TABLET PO (08:04)
[2021-03-09] MEDS: Famotidine/PF 20 MG/2 ML VIAL IVPUSH (08:04)
[2021-03-09] MEDS: allopurinoL 100 MG TABLET PO (08:04)
[2021-03-09] MEDS: Gabapentin 100 MG CAPSULE 200 MG PO ×3 (08:04→21:10)
[2021-03-09] MEDS: Aspirin Enteric Coated 81 MG TABLET.DR PO (08:04)
[2021-03-09] MEDS: Heparin Sodium,Porcine 5,000 UNIT/ML VIAL 5000 UNIT SUBCUT ×2 (08:04→21:09)
[2021-03-09] MEDS: Metoprolol Succinate ER 50 MG TAB.ER.24H PO (08:04)
[2021-03-09] MEDS: Ferrous Sulfate 324 MG TABLET.DR PO (08:04)
[2021-03-09] MEDS: Furosemide 40 MG TABLET PO (08:04)
[2021-03-09 08:25] LABS: Glucose, Whole Blood 177 mg/dL (60-115)
[2021-03-09] MEDS: cefTRIAXone sodium 1 GM in 0.9 % Sodium Chloride 50 ML IV (10:16)
[2021-03-09 11:34] LABS: Glucose, Whole Blood 159 mg/dL (60-115)
--- NOTE | 2021-03-09 11:42 | HO.PM.IMPN ---
Subjective Subjective Date of Service: 03/09/21 Interval History: Patient feeling better this morning, less nausea and less epigastric pain, complaining of bilateral chest wall pain, tolerating diet. ROS General no headache, , no fever chills. CVS no chest pain, no palpitation. Respiratory no cough, no sob. Gastrointestinal mild nausea ,no diarrhea Physical Exam Vital Signs: Vital Signs: Last Vital Signs Temp 98.0 F 03/09/21 11:16 Pulse 78 03/09/21 11:16 Resp 18 03/09/21 11:16 BP 137/66 03/09/21 11:16 Pulse Ox 98 03/09/21 11:16 Body Mass Index 29.0 Constitutional no acute distress Neck Supple Chest wall tenderness with palpation right side Cardiovascular RRR, No M/R/G, S1 S2, No S3 S4, No pedal edema Respiratory Lungs clear, No respiratory distress Gastrointestinal mild epigastric tenderness to palpation, soft, bowel sounds are audible, no abdominal distension Skin No rash Neurological Alert & oriented x3 Psychological Appropriate affect Objective Data Current Medications Generic Name Dose Route Start Last Admin Trade Name Mattyq PRN Reason Stop Dose Admin Albuterol Sulfate 2 puff 03/06/21 16:52 Albuterol Sulfate 90 Mcg 8 Gm Inhaler INHALE Q6H PRN Shortness Of Breath Allopurinol 100 mg 03/07/21 09:00 03/09/21 08:04 Allopurinol 100 Mg Tablet PO 100 mg DAILY [facility] Administration Amlodipine Besylate 5 mg 03/07/21 09:00 03/09/21 08:04 Amlodipine Besylate 5 Mg Tablet PO 5 mg DAILY [facility] Administration Protocol Aspirin 81 mg 03/07/21 09:00 03/09/21 08:04 Aspirin Enteric Coated 81 Mg Tablet.Dr PO 81 mg DAILY [facility] Administration Atorvastatin Calcium 40 mg 03/06/21 21:00 03/08/21 20:58 Atorvastatin Calcium 40 Mg Tablet PO 40 mg BEDTIME [facility] Administration Ergocalciferol 1,250 mcg 03/08/21 10:00 03/08/21 10:27 Ergocalciferol (Vitamin D2) 1,250 Mcg Capsule PO Not Given SA@1000 [facility] Famotidine 20 mg 03/09/21 09:00 03/09/21 08:04 Famotidine/Pf 20 Mg/2 Ml Vial IVPUSH 20 mg DAILY [facility] Ferrous Sulfate 324 mg 03/07/21 09:00 03/09/21 08:04 Ferrous Sulfate 324 Mg Tablet.Dr PO 324 mg DAILY [facility] Administration Fludrocortisone Acetate 0.1 mg 03/07/21 09:00 03/09/21 08:04 Fludrocortisone Acetate 0.1 Mg Tablet PO 0.1 mg DAILY [facility] Administration Fluticasone/Vilanterol 1 puff 03/07/21 09:00 03/09/21 08:01 Fluticasone/Vilanterol 100/25 Blst.W.Dev INHALE 1 puff DAILY [facility] Administration Gabapentin 200 mg 03/06/21 21:00 03/09/21 08:04 Gabapentin 100 Mg Capsule PO 200 mg TID [facility] Administration Heparin Sodium (Porcine) 5,000 unit 03/06/21 21:00 03/09/21 08:04 Heparin Sodium,Porcine 5,000 Unit/Ml Vial SUBCUT 5,000 unit BID [facility] Administration Ceftriaxone Sodium 1 gm/ 50 mls @ 100 mls/hr 03/08/21 10:30 03/09/21 10:54 Sodium Chloride IV Infused Q24H [facility] Insulin Glargine 8 unit 03/07/21 09:00 03/09/21 08:03 Insulin Glargine,Hum.Rec.Anlog 100 Unit/Ml 10 Ml Vial SUBCUT 8 unit DAILY [facility] Administration Insulin Human Lispro 5 unit 03/07/21 07:30 03/09/21 08:03 Insulin Lispro 100 Unit/Ml 3 Ml Vial SUBCUT 5 unit BIDAC [facility] Administration Insulin Human Lispro 0 unit 03/06/21 21:00 03/09/21 08:03 Insulin Lispro 100 Unit/Ml 3 Ml Vial SUBCUT 2 unit QIDACHS [facility] Administration Protocol Loperamide HCl 2 mg 03/06/21 17:15 Loperamide Hcl 2 Mg Capsule PO QID PRN Diarrhea Lorazepam 0.5 mg 03/06/21 16:52 Lorazepam 0.5 Mg Tablet PO BID PRN Anxiety Melatonin 3 mg 03/06/21 17:15 03/06/21 21:22 Melatonin 3 Mg Tablet PO 3 mg BEDTIME PRN Administration Sleep Metoprolol Succinate 50 mg 03/07/21 09:00 03/09/21 08:04 Metoprolol Succinate Er 50 Mg Tab.Er.24h PO 50 mg DAILY [facility] Administration Protocol Morphine Sulfate 2 mg 03/06/21 17:32 03/09/21 08:05 Morphine Sulfate 2 Mg/Ml Cartridge IVPUSH 2 mg Q4H PRN Administration Pain, Severe (Pain Scale 7-10) Nitroglycerin 0.4 mg 03/06/21 16:52 Nitroglycerin 0.4 Mg Tab.Subl SUBLINGUAL Q5M PRN Chest Pain Omeprazole 20 mg 03/07/21 06:30 03/09/21 05:50 Omeprazole 20 Mg Capsule.Dr PO 20 mg DAILY@0630 [facility] Administration Ondansetron HCl 4 mg 03/07/21 09:08 03/09/21 08:04 Ondansetron Hcl 4 Mg/2 Ml Vial IVPUSH 4 mg Q8H PRN Administration Nausea and Vomiting Pharmacy Consult 1 each 03/06/21 11:12 Consult Rx Perform Med Rec MISCELLANE ONCE PRN Consult order Sodium Chloride 3 ml 03/07/21 00:00 03/09/21 08:03 0.9 % Sodium Chloride Flush 3 Ml Syringe IVFLUSH 3 ml QSHIFT [facility] Administration Tamsulosin HCl 0.4 mg 03/06/21 17:00 03/08/21 16:49 Tamsulosin Hcl 0.4 Mg Capsule PO 0.4 mg DAILY@1700 [facility] Administration Labs CBC & Chem 7: 03/06/21 09:21 03/09/21 06:48 Microbiology Microbiology Results: Microbiology 03/06/21 15:21 Urine clean catch - Clean Catch Midstream Urine Culture - Final Klebsiella pneumoniae Assessment and Plan (1) UTI (urinary tract infection): Status: Acute (2) Abdominal pain: Status: Acute (3) Gastroparesis: Status: Acute (4) HTN (hypertension): Status: Acute (5) ISA (acute kidney injury): Status: Acute (6) Weakness: Status: Acute Assessment and Plan: 60yo F with HFpEF, DM, CKD, HTN, chronic anemia, orthostatic hypotension, recurrent UTI, CAD s/p CABG here with gen weaknness, falls and finding of orthostatic hypotension # abdominal pain/ Diabetes Gastroparesis , abdominal pain is improving with less nausea, continue supportive care with Antiemetics, IV Pepcid, will wean morphine #Weakness likly multifactorial from UTI, hyperglycemia, orthostatic hypotension. Treat infection, encourage out of bed and ambulation. # Acute/chronic HFpEF - s/p IV diuretics 03/06 , appears compensated hold Lasix due to rising creatinine, continue metoprolol # Acute on chronic hypoxic resp failure with O2 sat 89, ,is supposed to be on home O2, now finger oximetry 94% on room air. # COPD exacerbation--no acute exacerbation continue PRN, bronchodilators, continue ICS/LABA # normocytic anemia--anemia of chronic disease, stable Iron studies #UTI- iv Rocephin, urine culture grew Klebsiella pneumoniae sensitive to ceftriaxone, no fever chills will transition to by mouth once nausea resolves #Orthostatic hypotension--d/t autonomic insuficiency will continue florinef # acute on on chronic kidney disease stage 3, noted to have bump in creatinine to 1.8 likely due to decreased by mouth intake, encourage by mouth fluids # CAD - continue ASA, metoprolol, Statin, troponin elevated and flat, with no chest pain no further workup warranted. # HTN - BP improved, continue amlodipine, and metoprolol # DM2, uncontrolled follow blood sugar closely, continue Lantus + Humalog # gout no acute flare, continue allopurinol # neuropathy due to diabetes mellitus, continue gabapentin and good blood pressure control #GERD--Omeprazole # depression/anxiety--Ativan SC heparin for DVT Disposition await PT/OT input for safe discharge
[2021-03-09 16:29] LABS: Glucose, Whole Blood 184 mg/dL (60-115)
[2021-03-09] MEDS: Tamsulosin HCL 0.4 MG CAPSULE PO (16:41)
[2021-03-09 20:40] LABS: Glucose, Whole Blood 212 mg/dL (60-115)
[2021-03-09] MEDS: Atorvastatin Calcium 40 MG TABLET PO (21:10)
[2021-03-10] VITALS (9 sets, daily range): BP systolic 114–170; BP diastolic 62–81; PULSE 65–76; RESP 16–20; TEMP 36.2–36.7; O2SAT 91–98
[2021-03-10] MEDS: Morphine Sulfate 2 MG/ML CARTRIDGE IVPUSH ×5 (01:21→20:23)
[2021-03-10] MEDS: Omeprazole 20 MG CAPSULE.DR PO (05:46)
[2021-03-10] MEDS: Fluticasone/Vilanterol 100/25 BLST.W.DEV 1 PUFF INHALE (07:49)
[2021-03-10 07:53] LABS: Anion Gap 17 (12-20); Blood Urea Nitrogen 51 mg/dL (9-16); Calcium 8.1 mg/dL (8.4-10.2); Carbon Dioxide 26 mmol/L (22-29); Chloride 100 mmol/L (96-108); Creatinine Clr Calc Pharmacy 29.8; Estimated Glomerular Filt Rate 28; Glucose Random 219 mg/dL (60-115); Potassium 4.3 mmol/L (3.3-5.1); Sodium 139 mmol/L (135-145)
[2021-03-10 07:57] LABS: Glucose, Whole Blood 209 mg/dL (60-115)
[2021-03-10] MEDS: Insulin Lispro 100 UNIT/ML 3 ML VIAL SUBCUT ×3 (08:09→12:04)
[2021-03-10] MEDS: amLODIPine Besylate 5 MG TABLET PO (08:10)
[2021-03-10] MEDS: Famotidine/PF 20 MG/2 ML VIAL IVPUSH (08:10)
[2021-03-10] MEDS: Heparin Sodium,Porcine 5,000 UNIT/ML VIAL 5000 UNIT SUBCUT ×2 (08:10→20:23)
[2021-03-10] MEDS: Metoprolol Succinate ER 50 MG TAB.ER.24H PO (08:10)
[2021-03-10] MEDS: Insulin Glargine,Hum.rec.anlog 100 UNIT/ML 10 ML VIAL 8 UNIT SUBCUT (08:11)
[2021-03-10] MEDS: 0.9 % Sodium Chloride Flush 3 ML SYRINGE IVFLUSH ×3 (08:11→20:23)
[2021-03-10] MEDS: ondansetron HCL 4 MG/2 ML VIAL IVPUSH ×2 (08:13→17:06)
[2021-03-10] MEDS: cefTRIAXone sodium 1 GM in 0.9 % Sodium Chloride 50 ML IV (10:13)
[2021-03-10 11:57] LABS: Glucose, Whole Blood 181 mg/dL (60-115)
--- NOTE | 2021-03-10 14:09 | HO.PM.IMPN ---
Subjective Subjective Date of Service: 03/10/21 Interval History: This a.m. patient complaining of epigastric pain and nausea refusing to take medication asking for morphine, yesterday patient was doing well tolerating diet and abdominal pain was better. ROS General no headache, , no fever chills. CVS no chest pain, no palpitation. Respiratory no cough, no sob. Gastrointestinal nausea, epigastric pain, no diarrhea Physical Exam Vital Signs: Vital Signs: Last Vital Signs Temp 97.7 F 03/10/21 12:00 Pulse 72 03/10/21 12:00 Resp 18 03/10/21 12:00 BP 135/62 03/10/21 12:00 Pulse Ox 94 03/10/21 12:00 Body Mass Index 29.0 Constitutional no acute distress Neck Supple Cardiovascular RRR, No M/R/G, S1 S2, No S3 S4, No pedal edema Respiratory Lungs clear, No respiratory distress Gastrointestinal mild epigastric tenderness to palpation, soft, bowel sounds are audible, no abdominal distension Skin No rash Neurological Alert & oriented x3 Psychological Appropriate affect Objective Data Current Medications Generic Name Dose Route Start Last Admin Trade Name Freq PRN Reason Stop Dose Admin Albuterol Sulfate 2 puff 03/06/21 16:52 Albuterol Sulfate 90 Mcg 8 Gm Inhaler INHALE Q6H PRN Shortness Of Breath Allopurinol 100 mg 03/07/21 09:00 03/10/21 10:25 Allopurinol 100 Mg Tablet PO Not Given DAILY [facility] Amlodipine Besylate 5 mg 03/07/21 09:00 03/10/21 08:10 Amlodipine Besylate 5 Mg Tablet PO 5 mg DAILY [facility] Administration Protocol Aspirin 81 mg 03/07/21 09:00 03/10/21 10:24 Aspirin Enteric Coated 81 Mg Tablet.Dr PO Not Given DAILY [facility] Atorvastatin Calcium 40 mg 03/06/21 21:00 03/09/21 21:10 Atorvastatin Calcium 40 Mg Tablet PO 40 mg BEDTIME [facility] Administration Ergocalciferol 1,250 mcg 03/08/21 10:00 03/08/21 10:27 Ergocalciferol (Vitamin D2) 1,250 Mcg Capsule PO Not Given SA@1000 [facility] Famotidine 20 mg 03/09/21 09:00 03/10/21 08:10 Famotidine/Pf 20 Mg/2 Ml Vial IVPUSH 20 mg DAILY [facility] Administration Ferrous Sulfate 324 mg 03/07/21 09:00 03/10/21 10:24 Ferrous Sulfate 324 Mg Tablet.Dr PO Not Given DAILY [facility] Fludrocortisone Acetate 0.1 mg 03/07/21 09:00 03/10/21 10:24 Fludrocortisone Acetate 0.1 Mg Tablet PO Not Given DAILY [facility] Fluticasone/Vilanterol 1 puff 03/07/21 09:00 03/10/21 07:49 Fluticasone/Vilanterol 100/25 Blst.W.Dev INHALE 1 puff DAILY [facility] Administration Gabapentin 200 mg 03/06/21 21:00 03/10/21 10:24 Gabapentin 100 Mg Capsule PO Not Given TID [facility] Heparin Sodium (Porcine) 5,000 unit 03/06/21 21:00 03/10/21 08:10 Heparin Sodium,Porcine 5,000 Unit/Ml Vial SUBCUT 5,000 unit BID [facility] Administration Ceftriaxone Sodium 1 gm/ 50 mls @ 100 mls/hr 03/08/21 10:30 03/10/21 10:56 Sodium Chloride IV Infused Q24H [facility] Infusion Insulin Glargine 8 unit 03/07/21 09:00 03/10/21 08:11 Insulin Glargine,Hum.Rec.Anlog 100 Unit/Ml 10 Ml Vial SUBCUT 8 unit DAILY [facility] Administration Insulin Human Lispro 5 unit 03/07/21 07:30 03/10/21 08:10 Insulin Lispro 100 Unit/Ml 3 Ml Vial SUBCUT 5 unit BIDAC [facility] Administration Insulin Human Lispro 0 unit 03/06/21 21:00 03/10/21 12:04 Insulin Lispro 100 Unit/Ml 3 Ml Vial SUBCUT 2 unit QIDACHS [facility] Administration Protocol Loperamide HCl 2 mg 03/06/21 17:15 Loperamide Hcl 2 Mg Capsule PO QID PRN Diarrhea Lorazepam 0.5 mg 03/06/21 16:52 Lorazepam 0.5 Mg Tablet PO BID PRN Anxiety Melatonin 3 mg 03/06/21 17:15 03/06/21 21:22 Melatonin 3 Mg Tablet PO 3 mg BEDTIME PRN Administration Sleep Metoprolol Succinate 50 mg 03/07/21 09:00 03/10/21 08:10 Metoprolol Succinate Er 50 Mg Tab.Er.24h PO 50 mg DAILY [facility] Administration Protocol Morphine Sulfate 2 mg 03/06/21 17:32 03/10/21 10:17 Morphine Sulfate 2 Mg/Ml Cartridge IVPUSH 2 mg Q4H PRN Administration Pain, Severe (Pain Scale 7-10) Nitroglycerin 0.4 mg 03/06/21 16:52 Nitroglycerin 0.4 Mg Tab.Subl SUBLINGUAL Q5M PRN Chest Pain Omeprazole 20 mg 03/07/21 06:30 03/10/21 05:46 Omeprazole 20 Mg Capsule.Dr PO 20 mg DAILY@0630 [facility] Administration Ondansetron HCl 4 mg 03/07/21 09:08 03/10/21 08:13 Ondansetron Hcl 4 Mg/2 Ml Vial IVPUSH 4 mg Q8H PRN Administration Nausea and Vomiting Pharmacy Consult 1 each 03/06/21 11:12 Consult Rx Perform Med Rec MISCELLANE ONCE PRN Consult order Sodium Chloride 3 ml 03/07/21 00:00 03/10/21 08:11 0.9 % Sodium Chloride Flush 3 Ml Syringe IVFLUSH 3 ml QSHIFT [facility] Administration Tamsulosin HCl 0.4 mg 03/06/21 17:00 03/09/21 16:41 Tamsulosin Hcl 0.4 Mg Capsule PO 0.4 mg DAILY@1700 [facility] Administration Labs CBC & Chem 7: 03/06/21 09:21 03/10/21 07:05 Microbiology Microbiology Results: Microbiology 03/06/21 15:21 Urine clean catch - Clean Catch Midstream Urine Culture - Final Klebsiella pneumoniae Assessment and Plan (1) UTI (urinary tract infection): Status: Acute (2) Acute heart failure with preserved ejection fraction: Status: Acute (3) Abdominal pain: Status: Acute (4) Weakness: Status: Acute (5) Gastroparesis: Status: Acute (6) HTN (hypertension): Status: Acute (7) T2DM (type 2 diabetes mellitus): Status: Acute Assessment and Plan: 60yo F with HFpEF, DM, CKD, HTN, chronic anemia, orthostatic hypotension, recurrent UTI, CAD s/p CABG here with gen weaknness, falls and finding of orthostatic hypotension # abdominal pain/ Diabetes Gastroparesis , Complaining of epigastric pain and nausea this morning, although was doing significantly better yesterday tolerating diet continue supportive care with Antiemetics, IV Pepcid, will wean morphine #Weakness likly multifactorial from UTI, hyperglycemia, orthostatic hypotension. Treat infection, encourage out of bed and ambulation. Patient seen by Physical therapy and they are recommending home with resumption of service # Acute/chronic HFpEF - s/p IV diuretics 03/06 , appears compensated hold Lasix due to rising creatinine, continue metoprolol # Acute on chronic hypoxic resp failure with O2 sat 89, ,is supposed to be on home O2, now finger oximetry 94% on room air. # COPD exacerbation--no acute exacerbation continue home inhalers # normocytic anemia--anemia of chronic disease, stable Iron studies #UTI- iv Rocephin day, urine culture grew Klebsiella pneumoniae sensitive to ceftriaxone, no fever chills will transition to by mouth Ceftin once nausea resolves #Orthostatic hypotension--d/t autonomic insuficiency will continue florinef # acute on on chronic kidney disease stage 3, noted to have bump in creatinine to 1.8 repeat creatinine remains same likely due to decreased by mouth intake, encourage by mouth fluids Will give gentle fluids 500 mL # CAD - continue ASA, metoprolol, Statin, troponin elevated and flat, with no chest pain no further workup warranted. # HTN - BP improved, continue amlodipine, and metoprolol # DM2, uncontrolled follow blood sugar closely, continue Lantus + Humalog # gout no acute flare, continue allopurinol # neuropathy due to diabetes mellitus, continue gabapentin and good blood pressure control #GERD--Omeprazole # depression/anxiety--Ativan SC heparin for DVT Disposition await PT/OT input for safe discharge
[2021-03-10] MEDS: Sodium Chloride 0.45 % 1,000 ML 80 ML IVCONT (15:33)
[2021-03-10 16:34] LABS: Glucose, Whole Blood 93 mg/dL (60-115)
[2021-03-10] MEDS: Tamsulosin HCL 0.4 MG CAPSULE PO (17:07)
[2021-03-10 20:12] LABS: Glucose, Whole Blood 144 mg/dL (60-115)
[2021-03-10] MEDS: Gabapentin 100 MG CAPSULE 200 MG PO (20:23)
[2021-03-10] MEDS: Atorvastatin Calcium 40 MG TABLET PO (20:23)
[2021-03-10] MEDS: Melatonin 3 MG TABLET PO (23:55)
[2021-03-11] MEDS: ondansetron HCL 4 MG/2 ML VIAL IVPUSH (00:59)
[2021-03-11 03:27] VITALS: BP 137/58; PULSE 72; RESP 20; TEMP 36.4; O2SAT 94
[2021-03-11] MEDS: Morphine Sulfate 2 MG/ML CARTRIDGE IVPUSH ×2 (03:43→08:20)
[2021-03-11] MEDS: Omeprazole 20 MG CAPSULE.DR PO (06:06)
[2021-03-11 06:42] LABS: Anion Gap 16 (12-20); Blood Urea Nitrogen 45 mg/dL (9-16); Calcium 8.3 mg/dL (8.4-10.2); Carbon Dioxide 25 mmol/L (22-29); Chloride 103 mmol/L (96-108); Creatinine Clr Calc Pharmacy 34.9; Estimated Glomerular Filt Rate 34; Glucose Random 162 mg/dL (60-115); Potassium 4.4 mmol/L (3.3-5.1); Sodium 140 mmol/L (135-145)
[2021-03-11 07:34] VITALS: BP 140/65; PULSE 72; RESP 18; TEMP 36.4; O2SAT 93
[2021-03-11 08:01] LABS: Glucose, Whole Blood 184 mg/dL (60-115)
[2021-03-11] MEDS: Insulin Lispro 100 UNIT/ML 3 ML VIAL SUBCUT ×2 (08:18→08:19)
[2021-03-11] MEDS: Insulin Glargine,Hum.rec.anlog 100 UNIT/ML 10 ML VIAL 8 UNIT SUBCUT (08:19)
[2021-03-11 08:20] VITALS: RESP 20
[2021-03-11] MEDS: Gabapentin 100 MG CAPSULE 200 MG PO (08:20)
[2021-03-11] MEDS: Famotidine/PF 20 MG/2 ML VIAL IVPUSH (08:20)
[2021-03-11] MEDS: Heparin Sodium,Porcine 5,000 UNIT/ML VIAL 5000 UNIT SUBCUT (08:20)
[2021-03-11] MEDS: 0.9 % Sodium Chloride Flush 3 ML SYRINGE IVFLUSH (08:20)
[2021-03-11 08:21] VITALS: BP 140/65; PULSE 72
[2021-03-11] MEDS: Aspirin Enteric Coated 81 MG TABLET.DR PO (08:21)
[2021-03-11] MEDS: Fludrocortisone Acetate 0.1 MG TABLET PO (08:21)
[2021-03-11] MEDS: Ferrous Sulfate 324 MG TABLET.DR PO (08:21)
[2021-03-11] MEDS: allopurinoL 100 MG TABLET PO (08:21)
[2021-03-11] MEDS: Metoprolol Succinate ER 50 MG TAB.ER.24H PO (08:21)
[2021-03-11] MEDS: amLODIPine Besylate 5 MG TABLET PO (08:21)
--- NOTE | 2021-03-11 10:01 | MHC.CM.PN ---
IMM 03/11/21, PT DISCHARGING TODAY W/[facility]UMP OF [facility] FOR SN, [facility] FOR PT, CLASSIFICATION COUNSELOR HRS, [facility] FOR PR[facility] O2 & MENTAL HEALTH SERVICES, PT'S CLASSIFICATION COUNSELOR TO [employer] AND PT REPORTS HOSPITALIST TOLD HER SHE COULD D/C AT 11:30AM. NSG/UNIT AWARE OF PT'S DISPO.
[2021-03-11 11:23] VITALS: BP 161/78; PULSE 72; RESP 17; TEMP 36.7; O2SAT 96
[2021-03-11 11:23] LABS: Glucose, Whole Blood 129 mg/dL (60-115)
--- NOTE | 2021-03-11 11:28 | PM.DS ---
DS: Providers Provider Date of Service: 03/11/21 Date of admission: 03/06/21 16:49 Primary care physician: GURMEET Kim DS: Diagnosis Discharge Diagnosis (1) Weakness: Status: Acute (2) Falls: Status: Acute (3) Orthostasis: Status: Acute (4) Vomiting: Status: Acute (5) Gastroparesis: Status: Acute (6) HTN (hypertension): Status: Acute (7) ISA (acute kidney injury): Status: Acute (8) UTI (urinary tract infection): Status: Acute DS: Medications Discharge Medications Home Medications: Home Medications Medication Instructions Recorded Confirmed lorazepam 0.5 mg PO BID PRN 09/14/20 03/06/21 Breo Ellipta 1 inh INHALATION DAILY PRN 09/16/20 03/06/21 albuterol sulfate 2 puff INHALATION Q6H PRN 09/16/20 03/06/21 allopurinol 100 mg PO DAILY 09/16/20 03/06/21 aspirin 81 mg PO DAILY 09/16/20 03/06/21 atorvastatin 40 mg PO BEDTIME 09/16/20 03/06/21 metoprolol succinate [Toprol XL] 50 mg PO DAILY 09/16/20 03/06/21 insulin degludec 100 unit/mL (3 12 unit SUBCUT DAILY ml 11/13/20 03/06/21 mL) subcutaneous pen amlodipine 5 mg PO DAILY 12/22/20 03/06/21 ergocalciferol (vitamin D2) 1 cap PO SA@1000 12/22/20 03/06/21 ferrous sulfate [iron] 325 mg PO DAILY 12/22/20 03/06/21 tamsulosin 0.4 mg PO DAILY@1700 12/22/20 03/06/21 insulin aspart U-100 [Novolog 5 unit SUBCUT BIDAC 01/08/21 03/06/21 Flexpen U-100 Insulin] loperamide 2 mg PO QID PRN 01/08/21 03/06/21 melatonin 5 mg PO BEDTIME PRN 01/08/21 03/06/21 nitroglycerin 0.4 mg SUBLINGUAL Q5M PRN 01/08/21 03/06/21 fludrocortisone 1 tab PO DAILY 03/06/21 03/06/21 gabapentin 200 mg PO TID 03/06/21 03/06/21 pantoprazole 1 tab PO DAILY 03/06/21 03/06/21 Previous Rx's Medication Instructions Recorded furosemide 40 mg tablet 40 mg PO DAILY #90 tab 12/06/20 DS: Summary Hospital Course Hospital Course: Chief Complaint: weakness, fall 60-year-old femal with chronic anemia, anxiety, CKD, CHF, COPD, CAD s/p CABG, CVA, diabetes, gastroparesis, GERD, IBS, CKD, DM, UTI, orthostatic hypotension, frequent admissions here with generalized weakness ongoing for days and has been falling frequently. She has no head injury, no syncope. She c/o pain in knee, shoulder and abdominal pain associated with nausea and vomitting. Lab finding is consistent with UTI, there is no fever, she has positive orthostatic BP. Blood sugar is 426 earlier now 244. Creat on admission 1.59 and now 1.55 HOSPITAL COURSE: 60yo F with HFpEF, DM, CKD, HTN, chronic anemia, orthostatic hypotension, recurrent UTI, CAD s/p CABG here with gen weaknness, abdominal pain, falls and finding of orthostatic hypotension # abdominal pain/ Diabetes Gastroparesis-- treated symptomatically with pain medication, and atiemetics and is feeling better and toleraing diet. #Weakness likly multifactorial from UTI, hyperglycemia, orthostatic hypotension. Treat UTI, encourage out of bed and ambulation. PT recommended home with services # Acute/chronic HFpEF--when she presented she had signs of acute heart failure and was given IV Lasix on 03/06 and has since been compensated. # Acute on chronic hypoxic resp failure with O2 sat 89, resolved ,is supposed to be on home O2, now finger oximetry 94% on room air. # COPD exacerbation--no acute exacerbation continue home inhalers # normocytic anemia--anemia of chronic disease, stable Iron studies #UTI- iv Rocephin day 02/26, urine culture grew Klebsiella pneumoniae sensitive to ceftriaxone, no fever chills will transition to by mouth Ceftin 250 bid for total of 7 days #Orthostatic hypotension--d/t autonomic insuficiency will continue florinef # acute on on chronic kidney disease stage 3, noted to have bump in creatinine to 1.8 repeat creatinine after IV fluid is now 1.5 within her baseline Will give gentle fluids 500 mL # CAD - continue ASA, metoprolol, Statin, troponin elevated and flat, with no chest pain no further workup warranted. # HTN - BP improved, continue amlodipine, and metoprolol # DM2, uncontrolled follow blood sugar closely, continue Lantus + Humalog # gout no acute flare, continue allopurinol # neuropathy due to diabetes mellitus, continue gabapentin and good blood pressure control #GERD--Omeprazole # depression/anxiety--Ativan Time Spent with Patient Time attestation: Total time spent providing and/or coordinating discharge services: Discharge coordination time: Greater than 30 minutes Physical Exam Vital Signs: Vital Signs: Last Vital Signs Temp 98.1 F 03/11/21 11:23 Pulse 72 03/11/21 11:23 Resp 17 03/11/21 11:23 BP 161/78 H 03/11/21 11:23 Pulse Ox 96 03/11/21 11:23 Body Mass Index 29.0 Constitutional no acute distress Neck Supple Cardiovascular RRR, No M/R/G, S1 S2, No S3 S4, No pedal edema Respiratory Lungs clear, No respiratory distress Gastrointestinal mild epigastric tenderness to palpation, soft, bowel sounds are audible, no abdominal distension Skin No rash Neurological Alert & oriented x3 Psychological Appropriate affect DS: Data Data Completed and Pending Completed studies during hospitalization [Text1]: Procedures Insertion of Infusion Device into Right Basilic Vein, Percutaneous Approach (10/31/20) Transfusion of Nonautologous Red Blood Cells into Peripheral Vein, Percutaneous Approach (10/31/20) Labs on day of discharge: Laboratory Results - last 24 hr 03/10/21 03/10/21 03/10/21 11:10 16:03 20:04 Sodium Potassium Chloride Carbon Dioxide Anion Gap BUN Creatinine Estim Creat Clear Calc Estimated GFR POC Glucose 181 H 93 144 H Random Glucose Calcium 03/11/21 03/11/21 03/11/21 06:00 07:32 11:18 Sodium 140 Potassium 4.4 Chloride 103 Carbon Dioxide 25 Anion Gap 16 BUN 45 H Creatinine 1.55 H Estim Creat Clear Calc 34.9 Estimated GFR 34 POC Glucose 184 H 129 H Random Glucose 162 H Calcium 8.3 L Discharge Plan Discharge Anticipated Discharge Date/Time: 03/11/21 11:24 Patient Disposition: Home Health Service Discharge Diagnosis: UTI, weakness, diabetes grastroparesis, Referrals: [facility] [Outside] - 1 Day (RESUMPTION OF INTERMEDIATE. PLEASE CALL ABOVE NUMBER IF YOU HAVE NOT HEARD FROM [facility] BY NOON ON 03/12/21. [facility] WILL PROVIDE HOME PT) Anna Garcia FNP [Primary Care Provider] - 1 Week Discharge Medications: New cefuroxime axetil 250 mg tablet 250 mg PO BID 3 Days Qty: 6 RF: 0 Continued furosemide 40 mg tablet 40 mg PO DAILY Qty: 90 RF: 3 lorazepam 0.5 mg Tablet 0.5 mg PO BID PRN (Reason: Anxiety) RF: 0 atorvastatin 40 mg Tablet 40 mg PO BEDTIME RF: 0 metoprolol succinate [Toprol XL] 50 mg Tablet Extended Release 24 Hr 50 mg PO DAILY RF: 0 allopurinol 100 mg Tablet 100 mg PO DAILY RF: 0 albuterol sulfate 90 mcg/actuation Hfa Aerosol Inhaler 2 puff INHALATION Q6H PRN (Reason: Shortness Of Breath) RF: 0 Breo Ellipta 100-25 mcg/dose Blister With Device 1 inh INHALATION DAILY PRN (Reason: Shortness Of Breath) RF: 0 aspirin 81 mg Tablet,Delayed Release (Dr/Ec) 81 mg PO DAILY RF: 0 Hold Instructions: Resume on 01/13/21. tamsulosin 0.4 mg capsule 0.4 mg PO DAILY@1700 RF: 0 ferrous sulfate [iron] 325 mg (65 mg iron) Tablet 325 mg PO DAILY RF: 0 ergocalciferol (vitamin D2) 1,250 mcg (50,000 unit) capsule 1 cap PO SA@1000 RF: 0 amlodipine 5 mg tablet 5 mg PO DAILY RF: 0 insulin aspart U-100 [Novolog Flexpen U-100 Insulin] 100 unit/mL (3 mL) Insulin Pen 5 unit SUBCUT BIDAC RF: 0 loperamide 2 mg Tablet 2 mg PO QID PRN (Reason: Diarrhea) RF: 0 nitroglycerin 0.4 mg Tablet, Sublingual 0.4 mg SUBLINGUAL Q5M PRN (Reason: Chest Pain) RF: 0 melatonin 5 mg Tablet 5 mg PO BEDTIME PRN (Reason: Sleep) RF: 0 pantoprazole 20 mg tablet,delayed release (DR/EC) 1 tab PO DAILY RF: 0 gabapentin 100 mg capsule 200 mg PO TID RF: 0 fludrocortisone 0.1 mg tablet 1 tab PO DAILY RF: 0 Tresiba FlexTouch U-100 100 unit/mL (3 mL) insulin pen 12 unit subcut DAILY RF: 0 Discharge Orders: Discharge Order (Routine); Ordered 03/11/21 Ordered By: Alfredito Proctor Diet: advance to usual diet and diabetic diet Activity on Discharge: As tolerated Stand Alone Forms: Patient Portal Discharge page Care Plan Goals: Prevent rehospitalization Health Concerns: gastroparesis, UTI Plan of Treatment: complete takeing antibiotics and take of your usual medication as direacted and follow up with your Doctor in a week, call for appointment Assessment: UTI, weakness, gastroparesisi
[2021-03-11] MEDS: cefTRIAXone sodium 1 GM in 0.9 % Sodium Chloride 50 ML IV (11:38)
--- NOTE | 2021-03-11 15:31 | MHC.CM.PN ---
CM CALLED [employer] AT [phone] RE: D/C W/RESUMP OF SERVICES, COPY OF D/C SUMMARY FAXED TO [employer] AT [phone] PER REQUEST.
== END 2021-03-11 12:40 | disposition home health service (06) | DRG 291 ==
LOC: HO.ED 16:12 → HO.EDOVER 17:36 → HO.S3 17:55
PROVIDERS: Hospitalist; Physician Assistant; Admitting Provider Internal Medicine; Emergency Provider Internal Medicine; PCP Nurse Practitioner Family; Visit Provider Internal Medicine
DX: I13.0 Hypertensive heart and chronic kidney disease with heart failure and stage 1 through stage 4 chronic kidney disease, or unspecified chronic kidney disease (principal); N17.0 Acute kidney failure with tubular necrosis; I50.33 Acute on chronic diastolic (congestive) heart failure; J96.01 Acute respiratory failure with hypoxia; N39.0 Urinary tract infection, site not specified; E11.22 Type 2 diabetes mellitus with diabetic chronic kidney disease; N18.30 Chronic kidney disease, stage 3 unspecified; Z20.822 Contact with and (suspected) exposure to COVID-19; I25.10 Atherosclerotic heart disease of native coronary artery without angina pectoris; E11.43 Type 2 diabetes mellitus with diabetic autonomic (poly)neuropathy; I95.1 Orthostatic hypotension; M10.9 Gout, unspecified; K21.9 Gastro-esophageal reflux disease without esophagitis; J44.9 Chronic obstructive pulmonary disease, unspecified; E11.42 Type 2 diabetes mellitus with diabetic polyneuropathy; K31.84 Gastroparesis; F32.9 Major depressive disorder, single episode, unspecified; D63.1 Anemia in chronic kidney disease; F41.9 Anxiety disorder, unspecified; Z95.1 Presence of aortocoronary bypass graft; Z86.73 Personal history of transient ischemic attack (TIA), and cerebral infarction without residual deficits; Z79.4 Long term (current) use of insulin; Z79.82 Long term (current) use of aspirin; Z79.899 Other long term (current) drug therapy
CPT/HCPCS: 36415; 71045; 73030; 73564; 80048; 80076; 81001; 81003; 82550; 82947; 83690; 83735; 83880; 84484; 85025; 85610; 85730; 87086; 87088; 87186; 87635; 93005; 96365; 96375; 97162; 99285; J0696; J1940; J2270; J2405; J2765

== ENCOUNTER → 2021-03-20 09:10 | Outpatient (BNVA) | payer OTHER, SELFPAY | PROVIDERS: PCP Nurse Practitioner Family; Visit Provider Internal Medicine | DX: Z13.89 Encounter for screening for other disorder (principal) | CPT/HCPCS: Q3014 ==

== ENCOUNTER 2021-03-24 15:01 | Emergency (ER) | payer OTHER, SELFPAY ==
--- NOTE | 2021-03-24 | ECG_ITS ---
Test Reason : CHEST PRESSURE Blood Pressure : / mmHG Vent. Rate : 085 BPM Atrial Rate : 085 BPM P-R Int : 236 ms QRS Dur : 122 ms QT Int : 438 ms P-R-T Axes : 026 095 266 degrees QTc Int : 521 ms A sensed V paced rhythm Rightward axis T wave abnormality, consider inferior ischemia Abnormal ECG When compared with ECG of 06-MAR-2021 09:15, Rhythm change Referred By: Generic ED Physician Electronically Signed By:STEVE MASON
[2021-03-24 15:12] VITALS: BP 166/84; PULSE 72; RESP 18; TEMP 37; O2SAT 97; BMI 29.9
[2021-03-24 16:00] VITALS: PULSE 70
[2021-03-24 16:14] LABS: MANUAL DIFF FLAG NO
[2021-03-24 16:18] LABS: Basophils Percent Auto 0.3 % (0-2); Eosinophils Absolute Auto 0.1 X10*3/uL (0.0-0.4); Eosinophils Percent Auto 1.5 % (0-4); Hematocrit 30.8 % (37-47); Hemoglobin 10.6 g/dl (12.0-16.0); Imm Gran Abs Auto 0.05 X10*3/uL (0.00-0.03); Imm Gran Pct Auto 0.6 % (0.0-0.4); Lymphocytes Absolute Auto 1.4 X10*3/uL (1.2-4.9); Lymphocytes Percent Auto 18.4 % (20-40); Mean Corpuscular HGB Conc 34.4 g/dl (31.0-35.0); Mean Corpuscular Hemoglobin 30.3 pg (27.0-33.0); Mean Platelet Volume 10.9 fL (9.4-12.3); Monocytes Absolute Auto 0.7 X10*3/uL (0.1-1.2); Monocytes Percent Auto 9.1 % (2-11); Neutrophils Absolute Auto 5.4 X10*3/uL (2.0-8.3); Neutrophils Percent Auto 70.1 % (45-73); Platelet Count 220 X10*3/uL (160-400); Red Cell Distribution Width 13.7 % (11.0-16.0); White Blood Count 7.8 X10*3/uL (4.8-10.8)
--- NOTE | 2021-03-24 16:35 | ED_ITS ---
HPI - Chest Pain General Chief Complaint: Chest Pain Stated Complaint: high bood sugar Time Seen by Provider: 03/24/21 16:35 Source: patient Mode of arrival: EMS Limitations: no limitations History of Present Illness HPI narrative: Patient with history of hypertension diabetes coronary artery disease heart failure been here multiple times for chronic chest pain this time comes here for pain for last 3 days similar to that in the previous ED visits, Was seen here 2 times last month at [facility] and 1 time at [facility] with workup negative also patient doses of her insulin was changed at [facility] during last admission and she noticed her blood sugar on the higher side. No nausea no vomiting no abdominal pain no palpitation no syncope no diaphoresis patient is on Tresiba in October she was taking 56 units now changed to 12 units since last 2 weeks after discharge from [facility] and patient noticed the blood sugar been on the higher side Related Data Home Medications Medication Instructions Recorded Confirmed lorazepam 0.5 mg PO BID PRN 09/14/20 03/20/21 Breo Ellipta 1 inh INHALATION DAILY PRN 09/16/20 03/20/21 albuterol sulfate 2 puff INHALATION Q6H PRN 09/16/20 03/20/21 allopurinol 100 mg PO DAILY 09/16/20 03/20/21 aspirin 81 mg PO DAILY 09/16/20 03/20/21 atorvastatin 40 mg PO BEDTIME 09/16/20 03/20/21 metoprolol succinate [Toprol XL] 50 mg PO DAILY 09/16/20 03/20/21 insulin degludec 100 unit/mL (3 12 unit SUBCUT DAILY ml 11/13/20 03/20/21 mL) subcutaneous pen amlodipine 5 mg PO DAILY 12/22/20 03/20/21 ergocalciferol (vitamin D2) 1 cap PO SA@1000 12/22/20 03/20/21 ferrous sulfate [iron] 325 mg PO DAILY 12/22/20 03/20/21 tamsulosin 0.4 mg PO DAILY@1700 12/22/20 03/20/21 insulin aspart U-100 [Novolog 5 unit SUBCUT BIDAC 01/08/21 03/20/21 Flexpen U-100 Insulin] loperamide 2 mg PO QID PRN 01/08/21 03/20/21 melatonin 5 mg PO BEDTIME PRN 01/08/21 03/20/21 nitroglycerin 0.4 mg SUBLINGUAL Q5M PRN 01/08/21 03/20/21 fludrocortisone 1 tab PO DAILY 03/06/21 03/20/21 gabapentin 200 mg PO TID 03/06/21 03/20/21 pantoprazole 1 tab PO DAILY 03/06/21 03/20/21 acetaminophen 500 mg tablet 500 mg PO Q6H PRN 03/20/21 03/20/21 cholecalciferol (vitamin D3) 25 25 mcg PO DAILY 03/20/21 03/20/21 mcg (1,000 unit) capsule metoclopramide HCl 5 mg tablet 5 mg PO QID 03/20/21 03/20/21 pen needle, diabetic 31 gauge x #1200 ea 03/20/21 03/20/2104/06 Previous Rx's Medication Instructions Recorded furosemide 40 mg tablet 40 mg PO DAILY #90 tab 12/06/20 cefuroxime axetil 250 mg PO BID 3 Days #6 tab 03/11/21 Allergies Allergy/AdvReac Type Severity Reaction Status Date / Time tetracycline [Tetracycline] Allergy Mild HIVES, Verified 03/20/21 11:18 anaphylaxis, anaphylaxis Review of Systems Review of Systems: Constitutional : No Weight loss, No Fever, No Chills ENT/Mouth : No sore throat, No Rhinorrhea Eyes: No Eye Pain, No Swelling Cardiovascular :++ Chest Pain, no palpitations Respiratory : No Cough, No Sputum, no shortness of breath Gastrointestinal : no Nausea, No Vomiting, No Diarrhea, No abdominal Pain, no black stools Genitourinary : No Dysuria, No Urinary Frequency Musculoskeletal : No joint pain, No Myalgias, No Joint Swelling Skin : No Skin Lesions, No rash Neuro : No Weakness, No Numbness, No Dizziness, No Headache Psych : No Anxiety/Panic, No Depression Heme/Lymph: No Bruising, No Lymphadenopathy Endocrine : No Polyuria, No Polydipsia All other systems reviewed and are negative Yes all other systems are reviewed and are negative REPLACED BY [facility] Past Medical History Medical History Acute heart failure with preserved ejection fraction Anemia Anxiety Arthritis Cardiac pacemaker in situ Carpal tunnel syndrome CHF (congestive heart failure) Chronic heart failure with preserved ejection fraction (HFpEF) COPD exacerbation Coronary artery disease CVA (cerebral vascular accident) Diabetes Fall Gastritis Gastroparesis Gastroparesis GERD (gastroesophageal reflux disease) Headache HLD (hyperlipidemia) HTN (hypertension) HTN (hypertension) Hypocalcemia Hypoxia IBS (irritable bowel syndrome) Myocardial infarct Nausea and vomiting Orthostasis Renal failure T2DM (type 2 diabetes mellitus) UTI (urinary tract infection) Surgical History H/O Achilles tendon repair History of appendectomy History of bladder surgery History of carpal tunnel release History of total hysterectomy with bilateral salpingo-oophorectomy (BSO) Hx of amputation Hx of CABG (~2019) Hx of cholecystectomy Hx of endoscopy Hx of knee surgery Hx of tonsillectomy Family History Family History Father No problems noted. Mother Diabetes Hypercholesteremia Hypertension Stroke Social History Social History Household Members: Family Household Members Other:: 1 Housing: Apartment Alcohol intake: never Smoking Status: Current every day smoker Tobacco Type: Cigarette Years Smoked: 20 Second Hand Smoke Exposure: No Advance Directives: No Advance Directives Information Provided: No Patient : No service: No Current occupational status: disabled Physical Exam Vital Signs: Vital Signs: Last Vital Signs Temp 98.6 F 03/24/21 15:12 Pulse 74 03/24/21 20:00 Resp 18 03/24/21 20:00 BP 155/70 H 03/24/21 20:00 Pulse Ox 95 03/24/21 20:00 Body Mass Index 29.9 Appearance: Alert. Oriented X3. No acute distress. Eyes: PERRLA, No Nystagmus ENT: Pharynx normal. Oral Mucosa moist Neck: Normal inspection. Neck supple. CVS: Normal heart rate and rhythm. Pulses normal. Respiratory: No respiratory distress. Equal air entry bilateral, no wheezing/rales/rhonchi Abdomen: Soft and nontender. Bowel sounds are present, no mass palpable, no CVA tenderness Skin: Skin warm and dry. Normal skin color. Normal skin turgor. Extremities: No lower extremity edema. No calf tenderness Neuro: Oriented X 3. No motor deficit. 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 Will increase the dose of Tresiba to 40 units in the evening which she used to be on prior to in October and blood sugar was well controlled. Will discharge patient home doing much better now patient troponin is 11 which is chronically elevated Medical Records Data Attestation: I reviewed the patient's medical records. Lab Data Attestation: I reviewed the patient's lab results. Result diagrams: 03/24/21 16:07 03/24/21 16:06 Labs: Lab Results 03/24/21 03/24/21 03/24/21 Range/Units 16:06 16:06 16:07 WBC 7.8 (4.8-10.8) X10*3/uL RBC 3.50 L (4.20-5.50) X10*6/uL Hgb 10.6 L (12.0-16.0) g/dl Hct 30.8 L (37-47) % MCV 88.0 (80-98) fL MCH 30.3 (27.0-33.0) pg MCHC 34.4 (31.0-35.0) g/dl RDW 13.7 (11.0-16.0) % Plt Count 220 (160-400) X10*3/uL MPV 10.9 (9.4-12.3) fL Immature Gran % (Auto) 0.6 H (0.0-0.4) % Neut % (Auto) 70.1 (45-73) % Lymph % (Auto) 18.4 L (20-40) % [place] % (Auto) 9.1 (2-11) % Eos % (Auto) 1.5 (0-4) % Baso % (Auto) 0.3 (0-2) % Lymph # (Auto) 1.4 (1.2-4.9) X10*3/uL [place] # (Auto) 0.7 (0.1-1.2) X10*3/uL Eos # (Auto) 0.1 (0.0-0.4) X10*3/uL Baso # (Auto) 0.0 (0.0-0.2) X10*3/uL Abs Immat Gran (auto) 0.05 H (0.00-0.03) X10*3/uL Absolute Neuts (auto) 5.4 (2.0-8.3) X10*3/uL Absolute Nucleated RBC 0.000 (0.0-0.012) X10*3/uL Nucleated RBC % (auto) 0.0 (0.0-0.2) /100WBC Hold Blue Top SEE NOTE Sodium 130 L (135-145) mmol/L Potassium 4.3 (3.3-5.1) mmol/L Chloride 94 L (96-108) mmol/L Carbon Dioxide 24 (22-29) mmol/L Anion Gap 16 (12-20) BUN 42 H (9-16) mg/dL Creatinine 2.00 H (0.5-1.4) mg/dL Estim Creat Clear Calc 27.5 Estimated GFR 25 POC Glucose (60-115) mg/dL Random Glucose 669 H* (60-115) mg/dL Calcium 8.4 (8.4-10.2) mg/dL Total Bilirubin 0.5 (0.0-1.0) mg/dL Direct Bilirubin 0.2 (0.0-0.5) mg/dL AST 14 D (5-31) U/L ALT 18 (0-31) U/L Alkaline Phosphatase 110 (39-117) U/L Troponin I High Sens (<3.5-17.0) ng/L B-Natriuretic Peptide (<100) pg/mL Total Protein 6.8 (6.5-8.0) g/dL Albumin 3.5 (3.5-5.0) g/dL 03/24/21 03/24/21 03/24/21 Range/Units 16:07 17:06 18:11 WBC (4.8-10.8) X10*3/uL RBC (4.20-5.50) X10*6/uL Hgb (12.0-16.0) g/dl Hct (37-47) % MCV (80-98) fL MCH (27.0-33.0) pg MCHC (31.0-35.0) g/dl RDW (11.0-16.0) % Plt Count (160-400) X10*3/uL MPV (9.4-12.3) fL Immature Gran % (Auto) (0.0-0.4) % Neut % (Auto) (45-73) % Lymph % (Auto) (20-40) % [place] % (Auto) (2-11) % Eos % (Auto) (0-4) % Baso % (Auto) (0-2) % Lymph # (Auto) (1.2-4.9) X10*3/uL [place] # (Auto) (0.1-1.2) X10*3/uL Eos # (Auto) (0.0-0.4) X10*3/uL Baso # (Auto) (0.0-0.2) X10*3/uL Abs Immat Gran (auto) (0.00-0.03) X10*3/uL Absolute Neuts (auto) (2.0-8.3) X10*3/uL Absolute Nucleated RBC (0.0-0.012) X10*3/uL Nucleated RBC % (auto) (0.0-0.2) /100WBC Hold Blue Top Sodium (135-145) mmol/L Potassium (3.3-5.1) mmol/L Chloride (96-108) mmol/L Carbon Dioxide (22-29) mmol/L Anion Gap (12-20) BUN (9-16) mg/dL Creatinine (0.5-1.4) mg/dL Estim Creat Clear Calc Estimated GFR POC Glucose 543 H* 516 H* (60-115) mg/dL Random Glucose (60-115) mg/dL Calcium (8.4-10.2) mg/dL Total Bilirubin (0.0-1.0) mg/dL Direct Bilirubin (0.0-0.5) mg/dL AST (5-31) U/L ALT (0-31) U/L Alkaline Phosphatase (39-117) U/L Troponin I High Sens 11.9 (<3.5-17.0) ng/L B-Natriuretic Peptide 420 H (<100) pg/mL Total Protein (6.5-8.0) g/dL Albumin (3.5-5.0) g/dL 03/24/21 Range/Units 18:40 WBC (4.8-10.8) X10*3/uL RBC (4.20-5.50) X10*6/uL Hgb (12.0-16.0) g/dl Hct (37-47) % MCV (80-98) fL MCH (27.0-33.0) pg MCHC (31.0-35.0) g/dl RDW (11.0-16.0) % Plt Count (160-400) X10*3/uL MPV (9.4-12.3) fL Immature Gran % (Auto) (0.0-0.4) % Neut % (Auto) (45-73) % Lymph % (Auto) (20-40) % [place] % (Auto) (2-11) % Eos % (Auto) (0-4) % Baso % (Auto) (0-2) % Lymph # (Auto) (1.2-4.9) X10*3/uL [place] # (Auto) (0.1-1.2) X10*3/uL Eos # (Auto) (0.0-0.4) X10*3/uL Baso # (Auto) (0.0-0.2) X10*3/uL Abs Immat Gran (auto) (0.00-0.03) X10*3/uL Absolute Neuts (auto) (2.0-8.3) X10*3/uL Absolute Nucleated RBC (0.0-0.012) X10*3/uL Nucleated RBC % (auto) (0.0-0.2) /100WBC Hold Blue Top Sodium (135-145) mmol/L Potassium (3.3-5.1) mmol/L Chloride (96-108) mmol/L Carbon Dioxide (22-29) mmol/L Anion Gap (12-20) BUN (9-16) mg/dL Creatinine (0.5-1.4) mg/dL Estim Creat Clear Calc Estimated GFR POC Glucose 521 H* (60-115) mg/dL Random Glucose (60-115) mg/dL Calcium (8.4-10.2) mg/dL Total Bilirubin (0.0-1.0) mg/dL Direct Bilirubin (0.0-0.5) mg/dL AST (5-31) U/L ALT (0-31) U/L Alkaline Phosphatase (39-117) U/L Troponin I High Sens (<3.5-17.0) ng/L B-Natriuretic Peptide (<100) pg/mL Total Protein (6.5-8.0) g/dL Albumin (3.5-5.0) g/dL ECG Data ECG #1: Attestation: I personally reviewed and interpreted this ECG as follows: Interpretation: Mentally paste sinus rhythm nonspecific intraventricular conduction delay nonspecific ST T wave changes no acute ischemia Discharge Plan Discharge Prescriptions: No Action furosemide 40 mg tablet 40 mg PO DAILY Qty: 90 RF: 3 lorazepam 0.5 mg Tablet 0.5 mg PO BID PRN (Reason: Anxiety) RF: 0 atorvastatin 40 mg Tablet 40 mg PO BEDTIME RF: 0 metoprolol succinate [Toprol XL] 50 mg Tablet Extended Release 24 Hr 50 mg PO DAILY RF: 0 allopurinol 100 mg Tablet 100 mg PO DAILY RF: 0 albuterol sulfate 90 mcg/actuation Hfa Aerosol Inhaler 2 puff INHALATION Q6H PRN (Reason: Shortness Of Breath) RF: 0 Breo Ellipta 100-25 mcg/dose Blister With Device 1 inh INHALATION DAILY PRN (Reason: Shortness Of Breath) RF: 0 aspirin 81 mg Tablet,Delayed Release (Dr/Ec) 81 mg PO DAILY RF: 0 Hold Instructions: Resume on 01/13/21. tamsulosin 0.4 mg capsule 0.4 mg PO DAILY@1700 RF: 0 ferrous sulfate [iron] 325 mg (65 mg iron) Tablet 325 mg PO DAILY RF: 0 ergocalciferol (vitamin D2) 1,250 mcg (50,000 unit) capsule 1 cap PO SA@1000 RF: 0 amlodipine 5 mg tablet 5 mg PO DAILY RF: 0 insulin aspart U-100 [Novolog Flexpen U-100 Insulin] 100 unit/mL (3 mL) Insulin Pen 5 unit SUBCUT BIDAC RF: 0 loperamide 2 mg Tablet 2 mg PO QID PRN (Reason: Diarrhea) RF: 0 nitroglycerin 0.4 mg Tablet, Sublingual 0.4 mg SUBLINGUAL Q5M PRN (Reason: Chest Pain) RF: 0 melatonin 5 mg Tablet 5 mg PO BEDTIME PRN (Reason: Sleep) RF: 0 pantoprazole 20 mg tablet,delayed release (DR/EC) 1 tab PO DAILY RF: 0 gabapentin 100 mg capsule 200 mg PO TID RF: 0 fludrocortisone 0.1 mg tablet 1 tab PO DAILY RF: 0 cefuroxime axetil 250 mg tablet 250 mg PO BID 3 Days Qty: 6 RF: 0 acetaminophen 500 mg tablet 500 mg PO Q6H PRNRF: 0 metoclopramide HCl 5 mg tablet 5 mg PO QID RF: 0 (DME) pen needle, diabetic 31 gauge x 5/16 needle See Rx Instructions ea subcut .MEDSUPPLY Qty: 1200 RF: 0 cholecalciferol (vitamin D3) 25 mcg (1,000 unit) capsule 25 mcg PO DAILY RF: 0 Tresiba FlexTouch U-100 100 unit/mL (3 mL) insulin pen 12 unit subcut DAILY RF: 0
[2021-03-24 16:47] LABS: B Type Natriuretic Peptide 420 pg/mL (<100); Troponin-I High Sensitivity 11.9 ng/L (<3.5-17.0)
[2021-03-24 16:50] LABS: Alanine Aminotransferase 18 U/L (0-31); Albumin Level 3.5 g/dL (3.5-5.0); Alkaline Phosphatase 110 U/L (39-117); Anion Gap 16 (12-20); Aspartate Amino Transferase 14 U/L (5-31); Bilirubin Direct 0.2 mg/dL (0.0-0.5); Bilirubin Total 0.5 mg/dL (0.0-1.0); Blood Urea Nitrogen 42 mg/dL (9-16); Calcium 8.4 mg/dL (8.4-10.2); Carbon Dioxide 24 mmol/L (22-29); Chloride 94 mmol/L (96-108); Creatinine Clr Calc Pharmacy 27.5; Estimated Glomerular Filt Rate 25; Glucose Random 669 mg/dL (60-115); Potassium 4.3 mmol/L (3.3-5.1); Sodium 130 mmol/L (135-145); Total Protein 6.8 g/dL (6.5-8.0)
[2021-03-24 17:09] LABS: Glucose, Whole Blood 543 mg/dL (60-115)
[2021-03-24] MEDS: Insulin Lispro 100 UNIT/ML 3 ML VIAL 14 UNIT SUBCUT (17:11)
[2021-03-24 18:15] LABS: Glucose, Whole Blood 516 mg/dL (60-115)
[2021-03-24] MEDS: Insulin Lispro 100 UNIT/ML 3 ML VIAL 10 UNIT SUBCUT (18:42)
[2021-03-24] MEDS: Insulin Glargine,Hum.rec.anlog 100 UNIT/ML 10 ML VIAL 20 UNIT SUBCUT (18:43)
[2021-03-24 18:45] LABS: Glucose, Whole Blood 521 mg/dL (60-115)
[2021-03-24 20:00] VITALS: BP 155/70; PULSE 74; RESP 18; O2SAT 95
[2021-03-24 20:22] LABS: Glucose, Whole Blood 352 mg/dL (60-115)
== END 2021-03-24 21:31 | disposition home or self-care (01) ==
PROVIDERS: Emergency Provider Internal Medicine
DX: E11.65 Type 2 diabetes mellitus with hyperglycemia (principal); R07.9 Chest pain, unspecified; I11.0 Hypertensive heart disease with heart failure; I50.9 Heart failure, unspecified; E78.5 Hyperlipidemia, unspecified; J44.9 Chronic obstructive pulmonary disease, unspecified; I25.2 Old myocardial infarction; K21.9 Gastro-esophageal reflux disease without esophagitis; F17.210 Nicotine dependence, cigarettes, uncomplicated; Z95.1 Presence of aortocoronary bypass graft; Z89.9 Acquired absence of limb, unspecified; Z87.440 Personal history of urinary (tract) infections; Z86.73 Personal history of transient ischemic attack (TIA), and cerebral infarction without residual deficits; Z87.01 Personal history of pneumonia (recurrent); Z95.0 Presence of cardiac pacemaker; Z79.899 Other long term (current) drug therapy; Z79.82 Long term (current) use of aspirin; Z79.02 Long term (current) use of antithrombotics/antiplatelets; Z79.4 Long term (current) use of insulin
CPT/HCPCS: 36415; 80053; 80076; 82248; 82947; 83880; 84484; 85025; 93005; 99284

== ENCOUNTER → 2021-04-08 10:31 | Outpatient (BNVA) | payer OTHER, SELFPAY | PROVIDERS: Visit Provider Internal Medicine Cardiovascular Disease ==

== ENCOUNTER → 2021-04-22 12:11 | Outpatient (BNVA) | payer OTHER, SELFPAY | PROVIDERS: Visit Provider Orthopaedic Surgery | DX: M17.12 Unilateral primary osteoarthritis, left knee (principal) | CPT/HCPCS: 99212 ==

== ENCOUNTER 2021-05-10 19:12 | Emergency (ER) | payer OTHER, SELFPAY ==
--- NOTE | 2021-05-10 19:47 | ECG_ITS ---
Test Reason : CHEST PAIN Blood Pressure : / mmHG Vent. Rate : 096 BPM Atrial Rate : 096 BPM P-R Int : 210 ms QRS Dur : 106 ms QT Int : 376 ms P-R-T Axes : 071 107 264 degrees QTc Int : 475 ms Sinus rhythm with 1st degree A-V block Rightward axis Incomplete right bundle branch block ST & T wave abnormality, consider inferior ischemia ST & T wave abnormality, consider anterolateral ischemia Prolonged QT Abnormal ECG When compared with ECG of 24-MAR-2021 15:38, anterolateral ST changes more prominent Referred By: Jero Vaughn Electronically Signed By:STEVE MASON
--- NOTE | 2021-05-10 19:49 | ED.CHESTPAIN ---
HPI - Chest Pain General Chief Complaint: General Medical Stated Complaint: CP,DIFF BREATHING Time Seen by Provider: 05/10/21 19:42 Source: patient Mode of arrival: EMS Limitations: no limitations History of Present Illness HPI narrative: Patient is 61 years old with history of chronic pain plannig to see pain clinic next week with history of chronic anemia anxiety, CKD, CHF, COPD, CAD status post CABG in 2019 CVA, diabetes, gastroparesis, chronic chest pain requiring Dilaudid for pain comes here for chest pain and a whole body ache since afternoon today similar to that. Patient received sublingual nitro and 4 baby aspirin without any relief in pain asking for Dilaudid. Patient does have chronic shortness of breath use oxygen at home, saturating 97% at room air Related Data Home Medications Medication Instructions Recorded Confirmed lorazepam 0.5 mg PO BID PRN 09/14/20 03/20/21 Breo Ellipta 1 inh INHALATION DAILY PRN 09/16/20 03/20/21 albuterol sulfate 2 puff INHALATION Q6H PRN 09/16/20 03/20/21 allopurinol 100 mg PO DAILY 09/16/20 03/20/21 aspirin 81 mg PO DAILY 09/16/20 03/20/21 atorvastatin 40 mg PO BEDTIME 09/16/20 03/20/21 metoprolol succinate [Toprol XL] 50 mg PO DAILY 09/16/20 03/20/21 insulin degludec 100 unit/mL (3 12 unit SUBCUT DAILY ml 11/13/20 03/20/21 mL) subcutaneous pen amlodipine 5 mg PO DAILY 12/22/20 03/20/21 ergocalciferol (vitamin D2) 1 cap PO SA@1000 12/22/20 03/20/21 ferrous sulfate [iron] 325 mg PO DAILY 12/22/20 03/20/21 tamsulosin 0.4 mg PO DAILY@1700 12/22/20 03/20/21 insulin aspart U-100 [Novolog 5 unit SUBCUT BIDAC 01/08/21 03/20/21 Flexpen U-100 Insulin] loperamide 2 mg PO QID PRN 01/08/21 03/20/21 melatonin 5 mg PO BEDTIME PRN 01/08/21 03/20/21 nitroglycerin 0.4 mg SUBLINGUAL Q5M PRN 01/08/21 03/20/21 fludrocortisone 1 tab PO DAILY 03/06/21 03/20/21 gabapentin 200 mg PO TID 03/06/21 03/20/21 pantoprazole 1 tab PO DAILY 03/06/21 03/20/21 acetaminophen 500 mg tablet 500 mg PO Q6H PRN 03/20/21 03/20/21 cholecalciferol (vitamin D3) 25 25 mcg PO DAILY 03/20/21 03/20/21 mcg (1,000 unit) capsule metoclopramide HCl 5 mg tablet 5 mg PO QID 03/20/21 03/20/21 pen needle, diabetic 31 gauge x #1200 ea 03/20/21 03/20/2104/06 Previous Rx's Medication Instructions Recorded furosemide 40 mg tablet 40 mg PO DAILY #90 tab 12/06/20 cefuroxime axetil 250 mg PO BID 3 Days #6 tab 03/11/21 Allergies Allergy/AdvReac Type Severity Reaction Status Date / Time tetracycline [Tetracycline] Allergy Mild HIVES, Verified 04/22/21 12:17 anaphylaxis, anaphylaxis Review of Systems Review of Systems: Constitutional : No Weight loss, No Fever, No Chills ENT/Mouth : No sore throat, No Rhinorrhea Eyes: No Eye Pain, No Swelling Cardiovascular : + Chest Pain, no palpitations Respiratory : No Cough, No Sputum, + shortness of breath Gastrointestinal : no Nausea, No Vomiting, No Diarrhea, No abdominal Pain, no black stools Genitourinary : No Dysuria, No Urinary Frequency Musculoskeletal : No joint pain, No Myalgias, No Joint Swelling Skin : No Skin Lesions, No rash Neuro : No Weakness, No Numbness, No Dizziness, No Headache Psych : No Anxiety/Panic, No Depression Heme/Lymph: No Bruising, No Lymphadenopathy Endocrine : No Polyuria, No Polydipsia All other systems reviewed and are negative COUNTS INCLUDE 234 BEDS AT THE [facility] Past Medical History Medical History Acute heart failure with preserved ejection fraction Anemia Anxiety Arthritis Cardiac pacemaker in situ Carpal tunnel syndrome CHF (congestive heart failure) Chronic heart failure with preserved ejection fraction (HFpEF) COPD exacerbation Coronary artery disease CVA (cerebral vascular accident) Diabetes Fall Gastritis Gastroparesis Gastroparesis GERD (gastroesophageal reflux disease) Headache HLD (hyperlipidemia) HTN (hypertension) HTN (hypertension) Hypocalcemia Hypoxia IBS (irritable bowel syndrome) Myocardial infarct Nausea and vomiting Orthostasis Renal failure T2DM (type 2 diabetes mellitus) UTI (urinary tract infection) Surgical History H/O Achilles tendon repair History of appendectomy History of bladder surgery History of carpal tunnel release History of total hysterectomy with bilateral salpingo-oophorectomy (BSO) Hx of amputation Hx of CABG (~2019) Hx of cholecystectomy Hx of endoscopy Hx of knee surgery Hx of tonsillectomy Family History Family History Father No problems noted. 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 Oriented X3. No acute distress. Eyes: PERRLA, No Nystagmus ENT: Pharynx normal. Oral Mucosa moist Neck: Normal inspection. Neck supple. CVS: Normal heart rate and rhythm. Pulses normal. Respiratory: No respiratory distress. Equal air entry bilateral, no wheezing/rales/rhonchi chest wall tenderness left-sided Abdomen: Soft and nontender. Bowel sounds are present, no mass palpable, no CVA tenderness Skin: Skin warm and dry. Normal skin color. Normal skin turgor. Extremities: 2+ lower extremity edema. No calf tenderness Neuro: Oriented X 3. No motor deficit. No sensory deficit.No cerebellar signs , cranial nerves II-XII intact MDM - Chest Pain MDM Narrative Medical decision making narrative: Patient with chronic recurrent chest pain requiring narcotics during stay in the ER with workup negative so far no acute EKG changes will discharge patient home Medical Records Data Attestation: I reviewed the patient's medical records. Lab Data Attestation: I reviewed the patient's lab results. Result diagrams: 05/10/21 20:32 05/10/21 20:32 Labs: Lab Results 05/10/21 05/10/21 05/10/21 Range/Units 20:32 20:32 20:32 WBC 15.7 H (4.8-10.8) X10*3/uL RBC 3.69 L (4.20-5.50) X10*6/uL Hgb 11.3 L (12.0-16.0) g/dl Hct 34.1 L (37-47) % MCV 92.4 (80-98) fL MCH 30.6 (27.0-33.0) pg MCHC 33.1 (31.0-35.0) g/dl RDW 13.3 (11.0-16.0) % Plt Count 243 (160-400) X10*3/uL MPV 10.4 (9.4-12.3) fL Immature Gran % (Auto) 0.7 H (0.0-0.4) % Neut % (Auto) 82.5 H (45-73) % Lymph % (Auto) 7.8 L (20-40) % [place] % (Auto) 8.0 (2-11) % Eos % (Auto) 0.7 (0-4) % Baso % (Auto) 0.3 (0-2) % Lymph # (Auto) 1.2 (1.2-4.9) X10*3/uL [place] # (Auto) 1.3 H (0.1-1.2) X10*3/uL Eos # (Auto) 0.1 (0.0-0.4) X10*3/uL Baso # (Auto) 0.0 (0.0-0.2) X10*3/uL Abs Immat Gran (auto) 0.11 H (0.00-0.03) X10*3/uL Absolute Neuts (auto) 12.9 H (2.0-8.3) X10*3/uL Absolute Nucleated RBC 0.000 (0.0-0.012) X10*3/uL Nucleated RBC % (auto) 0.0 (0.0-0.2) /100WBC PT 12.2 (10.8-13.0) SEC INR 1.0 (0.9-1.1) Sodium 137 (135-145) mmol/L Potassium 5.1 (3.3-5.1) mmol/L Chloride 103 (96-108) mmol/L Carbon Dioxide 23 (22-29) mmol/L Anion Gap 16 (12-20) BUN 35 H (9-16) mg/dL Creatinine 1.78 H (0.5-1.4) mg/dL Estim Creat Clear Calc 33.2 Estimated GFR 29 Random Glucose 278 H D (60-115) mg/dL Calcium 8.8 (8.4-10.2) mg/dL Troponin I High Sens (<3.5-17.0) ng/L B-Natriuretic Peptide (<100) pg/mL 05/10/21 05/10/21 Range/Units 20:32 20:32 WBC (4.8-10.8) X10*3/uL RBC (4.20-5.50) X10*6/uL Hgb (12.0-16.0) g/dl Hct (37-47) % MCV (80-98) fL MCH (27.0-33.0) pg MCHC (31.0-35.0) g/dl RDW (11.0-16.0) % Plt Count (160-400) X10*3/uL MPV (9.4-12.3) fL Immature Gran % (Auto) (0.0-0.4) % Neut % (Auto) (45-73) % Lymph % (Auto) (20-40) % [place] % (Auto) (2-11) % Eos % (Auto) (0-4) % Baso % (Auto) (0-2) % Lymph # (Auto) (1.2-4.9) X10*3/uL [place] # (Auto) (0.1-1.2) X10*3/uL Eos # (Auto) (0.0-0.4) X10*3/uL Baso # (Auto) (0.0-0.2) X10*3/uL Abs Immat Gran (auto) (0.00-0.03) X10*3/uL Absolute Neuts (auto) (2.0-8.3) X10*3/uL Absolute Nucleated RBC (0.0-0.012) X10*3/uL Nucleated RBC % (auto) (0.0-0.2) /100WBC PT (10.8-13.0) SEC INR (0.9-1.1) Sodium (135-145) mmol/L Potassium (3.3-5.1) mmol/L Chloride (96-108) mmol/L Carbon Dioxide (22-29) mmol/L Anion Gap (12-20) BUN (9-16) mg/dL Creatinine (0.5-1.4) mg/dL Estim Creat Clear Calc Estimated GFR Random Glucose (60-115) mg/dL Calcium (8.4-10.2) mg/dL Troponin I High Sens 12.5 (<3.5-17.0) ng/L B-Natriuretic Peptide 411 H (<100) pg/mL ECG Data ECG #1: Attestation: I personally reviewed and interpreted this ECG as follows: Interpretation: Pacemaker beats heart rate 96 beats per minute T inversion inferior lateral lead nonspecific no acute ischemic changes Discharge Plan Discharge Clinical Impression: Chest pain Qualifiers: Chest pain type: precordial pain Qualified Code(s): R07.2 - Precordial pain Patient Disposition: Home, Self-Care Instructions: Chest Pain (ED) Additional Instructions: Follow-up with your PCP/infection prevention coordinator if any concern Taking medication as prescribed by your PCP Prescriptions: No Action furosemide 40 mg tablet 40 mg PO DAILY Qty: 90 RF: 3 lorazepam 0.5 mg Tablet 0.5 mg PO BID PRN (Reason: Anxiety) RF: 0 atorvastatin 40 mg Tablet 40 mg PO BEDTIME RF: 0 metoprolol succinate [Toprol XL] 50 mg Tablet Extended Release 24 Hr 50 mg PO DAILY RF: 0 allopurinol 100 mg Tablet 100 mg PO DAILY RF: 0 albuterol sulfate 90 mcg/actuation Hfa Aerosol Inhaler 2 puff INHALATION Q6H PRN (Reason: Shortness Of Breath) RF: 0 Breo Ellipta 100-25 mcg/dose Blister With Device 1 inh INHALATION DAILY PRN (Reason: Shortness Of Breath) RF: 0 aspirin 81 mg Tablet,Delayed Release (Dr/Ec) 81 mg PO DAILY RF: 0 Hold Instructions: Resume on 01/13/21. tamsulosin 0.4 mg capsule 0.4 mg PO DAILY@1700 RF: 0 ferrous sulfate [iron] 325 mg (65 mg iron) Tablet 325 mg PO DAILY RF: 0 ergocalciferol (vitamin D2) 1,250 mcg (50,000 unit) capsule 1 cap PO SA@1000 RF: 0 amlodipine 5 mg tablet 5 mg PO DAILY RF: 0 insulin aspart U-100 [Novolog Flexpen U-100 Insulin] 100 unit/mL (3 mL) Insulin Pen 5 unit SUBCUT BIDAC RF: 0 loperamide 2 mg Tablet 2 mg PO QID PRN (Reason: Diarrhea) RF: 0 nitroglycerin 0.4 mg Tablet, Sublingual 0.4 mg SUBLINGUAL Q5M PRN (Reason: Chest Pain) RF: 0 melatonin 5 mg Tablet 5 mg PO BEDTIME PRN (Reason: Sleep) RF: 0 pantoprazole 20 mg tablet,delayed release (DR/EC) 1 tab PO DAILY RF: 0 gabapentin 100 mg capsule 200 mg PO TID RF: 0 fludrocortisone 0.1 mg tablet 1 tab PO DAILY RF: 0 cefuroxime axetil 250 mg tablet 250 mg PO BID 3 Days Qty: 6 RF: 0 acetaminophen 500 mg tablet 500 mg PO Q6H PRNRF: 0 metoclopramide HCl 5 mg tablet 5 mg PO QID RF: 0 (DME) pen needle, diabetic 31 gauge x 5/16 needle See Rx Instructions ea subcut .MEDSUPPLY Qty: 1200 RF: 0 cholecalciferol (vitamin D3) 25 mcg (1,000 unit) capsule 25 mcg PO DAILY RF: 0 Tresiba FlexTouch U-100 100 unit/mL (3 mL) insulin pen 12 unit subcut DAILY RF: 0
[2021-05-10 19:55] VITALS: BP 160/66; PULSE 100; RESP 16; TEMP 36.8; O2SAT 97
--- NOTE | 2021-05-10 20:00 | PC.NURSE ---
PT TO ED VIA AMBULANCE WITH C/O PAIN ALL OVER . PT C/O PAIN TO CHEST, RIGHT SHOULDER PAIN, AND BACK PAIN. PT CHG INTO GOWN AND MD AT BEDSIDE FOR EVAL.
[2021-05-10 20:39] LABS: Basophils Percent Auto 0.3 % (0-2); Eosinophils Absolute Auto 0.1 X10*3/uL (0.0-0.4); Eosinophils Percent Auto 0.7 % (0-4); Hematocrit 34.1 % (37-47); Hemoglobin 11.3 g/dl (12.0-16.0); Imm Gran Abs Auto 0.11 X10*3/uL (0.00-0.03); Imm Gran Pct Auto 0.7 % (0.0-0.4); Lymphocytes Absolute Auto 1.2 X10*3/uL (1.2-4.9); Lymphocytes Percent Auto 7.8 % (20-40); Mean Corpuscular HGB Conc 33.1 g/dl (31.0-35.0); Mean Corpuscular Hemoglobin 30.6 pg (27.0-33.0); Mean Corpuscular Volume 92.4 fL (80-98); Mean Platelet Volume 10.4 fL (9.4-12.3); Monocytes Absolute Auto 1.3 X10*3/uL (0.1-1.2); Neutrophils Absolute Auto 12.9 X10*3/uL (2.0-8.3); Neutrophils Percent Auto 82.5 % (45-73); Platelet Count 243 X10*3/uL (160-400); Red Blood Count 3.69 X10*6/uL (4.20-5.50); Red Cell Distribution Width 13.3 % (11.0-16.0); White Blood Count 15.7 X10*3/uL (4.8-10.8)
[2021-05-10 20:40] LABS: MANUAL DIFF FLAG NO
[2021-05-10 20:48] LABS: Prothrombin Time 12.2 SEC (10.8-13.0)
[2021-05-10 20:50] VITALS: RESP 18
[2021-05-10] MEDS: HYDROmorphone HCl 1 MG/ML SYRINGE IVPUSH ×2 (20:50→21:48)
[2021-05-10 21:11] LABS: Anion Gap 16 (12-20); Blood Urea Nitrogen 35 mg/dL (9-16); Calcium 8.8 mg/dL (8.4-10.2); Carbon Dioxide 23 mmol/L (22-29); Chloride 103 mmol/L (96-108); Creatinine Clr Calc Pharmacy 33.2; Estimated Glomerular Filt Rate 29; Glucose Random 278 mg/dL (60-115); Potassium 5.1 mmol/L (3.3-5.1); Sodium 137 mmol/L (135-145)
--- NOTE | 2021-05-10 21:13 | PC.NURSE ---
PT IS A VERY DIFFICULT STICK AND SEVERAL ATTEMPTS TO GET IV. HL PLACED TO RIGHT FA, LABS DRAWN TO LAB. PT MEDICATED FOR PAIN 08/31. WILL CONTINUE TO MONITOR PT.
[2021-05-10 21:19] LABS: B Type Natriuretic Peptide 411 pg/mL (<100); Troponin-I High Sensitivity 12.5 ng/L (<3.5-17.0)
[2021-05-10 21:30] VITALS: BP 129/55; PULSE 86; RESP 20; O2SAT 97
== END 2021-05-10 23:15 | disposition home or self-care (01) ==
PROVIDERS: Emergency Provider Internal Medicine
DX: R07.2 Precordial pain (principal); I13.0 Hypertensive heart and chronic kidney disease with heart failure and stage 1 through stage 4 chronic kidney disease, or unspecified chronic kidney disease; I50.32 Chronic diastolic (congestive) heart failure; E11.22 Type 2 diabetes mellitus with diabetic chronic kidney disease; N18.9 Chronic kidney disease, unspecified; J44.9 Chronic obstructive pulmonary disease, unspecified; Z86.73 Personal history of transient ischemic attack (TIA), and cerebral infarction without residual deficits; I25.2 Old myocardial infarction; Z79.4 Long term (current) use of insulin; Z79.82 Long term (current) use of aspirin; Z79.899 Other long term (current) drug therapy
CPT/HCPCS: 36415; 80048; 83880; 84484; 85025; 85610; 93005; 96374; 96376; 99284; J1170

== ENCOUNTER → 2021-05-19 10:51 | Outpatient (BNVA) | payer OTHER, SELFPAY | PROVIDERS: Visit Provider Internal Medicine | DX: M17.12 Unilateral primary osteoarthritis, left knee (principal); M25.462 Effusion, left knee | CPT/HCPCS: 99202 ==

== ENCOUNTER 2021-06-08 10:41 | Emergency (ER) | payer OTHER, SELFPAY ==
--- NOTE | ~2021-06-08 | US_ITS ---
EXAMINATION: US RETROPERITONEAL LIMITED (RENAL ONLY) CLINICAL INFORMATION: Right flank pain. Increased urinary frequency. Evaluate for pyelonephritis versus stone.. COMPARISON: None TECHNIQUE: Routine retroperitoneal evaluation of kidneys was performed. FINDINGS: RIGHT KIDNEY: 10.5 x 4.9 x 5.9 cm (SAG x AP x TRV). The kidney is normal in size, contour, and increased echogenicity. Renal cortical thickness is normal. No calculi or focal parenchymal lesions. No hydronephrosis. LEFT KIDNEY: 10.7 x 5.5 x 4.2 cm (SAG x AP x TRV). The kidney is normal in size, contour, and increased echogenicity. Renal cortical thickness is normal. No calculi or focal parenchymal lesions. No hydronephrosis. US/US renal BI IMPRESSION: Bilateral increased echogenicity. No focal lesion seen. There are no echogenic stones or hydronephrosis..
[2021-06-08 10:45] VITALS: BP 157/74; PULSE 73; O2SAT 96
[2021-06-08 10:51] VITALS: BP 166/74; PULSE 67; RESP 15; TEMP 36.7; O2SAT 95; BMI 32.5
[2021-06-08 11:02] VITALS: BP 166/74; PULSE 70; RESP 17; TEMP 36.7; O2SAT 97
[2021-06-08 11:13] LABS: Appearance Urine CLOUDY; Color Urine STRAW; Glucose Urine UA NEG (NEG); Leukocyte Esterase Urine 1+ (NEG); Nitrite Urine POS (NEG); UACC Culture Trigger YES; Urine Blood 1+ (NEG); Urine Ketones NEG (NEG); Urine Protein 2+ MG/DL (NEG-TRACE)
[2021-06-08 11:23] LABS: Bacteria Urine 2+ /LPF; Squamous Epithelial Cell Urine TRACE /LPF
--- NOTE | 2021-06-08 11:50 | ED.FEMALEGU ---
HPI - Female Genitourinary General Chief complaint: Urogenital-Female Stated complaint: UTI Time Seen by Provider: 06/08/21 10:53 Source: patient Mode of arrival: ambulatory History of Present Illness HPI Narrative: 61-year-old female with a past medical history of heart failure with preserved EF, anemia, anxiety, throat is, pacemaker, CHF, COPD, CAD, CVD, diabetes, gastroparesis, gastritis, GERD, HTN, HLD, CKD to the ED complaining of follow smelling urine/dark urine, urinary frequency, and right flank pain since yesterday. Denies dysuria, hematuria, fever, chills, nausea, vomiting, diarrhea, abdominal pain Related Data Home Medications Medication Instructions Recorded Confirmed lorazepam 0.5 mg PO BID PRN 09/14/20 05/19/21 Breo Ellipta 1 inh INHALATION DAILY PRN 09/16/20 05/19/21 albuterol sulfate 2 puff INHALATION Q6H PRN 09/16/20 05/19/21 allopurinol 100 mg PO DAILY 09/16/20 05/19/21 aspirin 81 mg PO DAILY 09/16/20 05/19/21 atorvastatin 40 mg PO BEDTIME 09/16/20 05/19/21 metoprolol succinate [Toprol XL] 50 mg PO DAILY 09/16/20 05/19/21 insulin degludec 100 unit/mL (3 12 unit SUBCUT DAILY ml 11/13/20 05/19/21 mL) subcutaneous pen amlodipine 5 mg PO DAILY 12/22/20 05/19/21 ergocalciferol (vitamin D2) 1 cap PO SA@1000 12/22/20 05/19/21 ferrous sulfate [iron] 325 mg PO DAILY 12/22/20 05/19/21 tamsulosin 0.4 mg PO DAILY@1700 12/22/20 05/19/21 insulin aspart U-100 [Novolog 5 unit SUBCUT BIDAC 01/08/21 05/19/21 Flexpen U-100 Insulin] loperamide 2 mg PO QID PRN 01/08/21 05/19/21 melatonin 5 mg PO BEDTIME PRN 01/08/21 05/19/21 nitroglycerin 0.4 mg SUBLINGUAL Q5M PRN 01/08/21 05/19/21 gabapentin 200 mg PO TID 03/06/21 05/19/21 pantoprazole 1 tab PO DAILY 03/06/21 05/19/21 acetaminophen 500 mg tablet 500 mg PO Q6H PRN 03/20/21 05/19/21 cholecalciferol (vitamin D3) 25 25 mcg PO DAILY 03/20/21 05/19/21 mcg (1,000 unit) capsule metoclopramide HCl 5 mg tablet 5 mg PO QID 03/20/21 05/19/21 pen needle, diabetic 31 gauge x #1200 ea 03/20/21 05/19/2104/06 Previous Rx's Medication Instructions Recorded furosemide 40 mg tablet 40 mg PO DAILY #90 tab 12/06/20 ciprofloxacin HCl 500 mg PO BID 7 Days #14 tab 06/08/21 Allergies Allergy/AdvReac Type Severity Reaction Status Date / Time tetracycline [Tetracycline] Allergy Mild HIVES, Verified 05/19/21 11:11 anaphylaxis, anaphylaxis Review of Systems Review of Systems: Constitutional: No Fever, No Chills, No Fatigue, No Malaise Cardiovascular: No Chest Pain, No SOB Respiratory: No Cough, No Dyspnea Gastrointestinal: No Nausea, No Vomiting, No Diarrhea, No Abdominal pain Genitourinary: No irregular bleeding, No Dysuria, + Urinary Frequency, No Hematuria, + Flank Pain, No Hesitancy Musculoskeletal: No joint pain, No Myalgias, No Joint Swelling Skin: No Skin Lesions, No rash Neuro: No Weakness, No Numbness, No Headache Yes all other systems are reviewed and are negative PMFSH Past Medical History Attestation statement: The following information was validated with the patient. Medical History (Updated 06/08/21 @ 13:10 by WILLIAM Sánchez) Acute heart failure with preserved ejection fraction Anemia Anxiety Arthritis Cardiac pacemaker in situ Carpal tunnel syndrome CHF (congestive heart failure) Chronic heart failure with preserved ejection fraction (HFpEF) COPD exacerbation Coronary artery disease CVA (cerebral vascular accident) Diabetes Fall Gastritis Gastroparesis Gastroparesis GERD (gastroesophageal reflux disease) Headache HLD (hyperlipidemia) HTN (hypertension) HTN (hypertension) Hypocalcemia Hypoxia IBS (irritable bowel syndrome) Myocardial infarct Nausea and vomiting Orthostasis Renal failure Suprapatellar effusion of knee T2DM (type 2 diabetes mellitus) UTI (urinary tract infection) Surgical History H/O Achilles tendon repair History of appendectomy History of bladder surgery History of carpal tunnel release History of total hysterectomy with bilateral salpingo-oophorectomy (BSO) Hx of amputation Hx of CABG (~2019) Hx of cholecystectomy Hx of endoscopy Hx of knee surgery Hx of tonsillectomy Family History Family History Father No problems noted. 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) Alcohol intake: never Years Smoked: 20 Second Hand Smoke Exposure: No Advance Directives: No Advance Directives Information Provided: No Patient : No service: No Current occupational status: disabled Physical Exam Vital Signs: Vital Signs: Last Vital Signs Temp 98.0 F 06/08/21 11:02 Pulse 71 06/08/21 12:22 Resp 16 06/08/21 12:22 BP 157/85 H 06/08/21 12:22 Pulse Ox 97 06/08/21 12:22 Body Mass Index 32.5 Const: General: cooperative, healthy appearing and no acute distress Orientation/consciousness: patient oriented x3 Limitations: no limitations HENMT: Head: Yes normal to inspection Ears: hearing grossly normal bilaterally General nose exam: Normal external nose present Face and sinus: Yes normal facial exam Eyes: General: appearance normal, both eyes and all related structures EOM: EOMs intact bilaterally Neck: Neck: Yes normal visual inspection Resp: Effort & Inspection: normal respiratory effort and no respiratory distress Auscultation: no rhonchi, no wheezes and bronchial breath sounds Cardio: Rate: regular rate Heart sounds: S1 normal heart sound present and S2 normal heart sound present GI: Inspection: Yes normal to inspection Palpation (GI): Soft to palpation, nontender, no guarding and not rigid : General: Yes CVA tenderness on the right Skin: Rashes: no rashes Wounds: no wounds Neuro: General: patient oriented x3 Gait exam (Neuro): Normal gait present Extrem: General: Yes normal to inspection Course Course Course Narrative: -no leukocytosis, H&H stable, renal function at patient's baseline. -AST/ALT mildly elevated US renal BI IMPRESSION: Bilateral increased echogenicity. No focal lesion seen. There are no echogenic stones or hydronephrosis. -1306--UA infected. Will treat as pyelonephritis secondary to flank pain. Results including worrisome signs and symptoms and strict return precautions discussed with patient, she verbalized understanding and feels safe for discharge home MDM - Female Genitourinary MDM Narrative Medical decision making narrative: 61-year-old female with a past medical history of heart failure with preserved EF, anemia, anxiety, throat is, pacemaker, CHF, COPD, CAD, CVD, diabetes, gastroparesis, gastritis, GERD, HTN, HLD, CKD to the ED complaining of follow smelling urine/dark urine, urinary frequency, and right flank pain since yesterday. On exam vital signs stable, NAD/nontoxic, abdomen soft/nontender, right CVAT noted. Concern for UTI vs pyelo vs renal stone. Lower concern for appendicitis/diverticulitis or other intra-abdominal pathology Plan: UA, labs, renal ultrasound, IVF, reassess Medical Records Attestation: I reviewed the patient's medical records. Lab Data Attestation: I reviewed the patient's lab results. Result diagrams: 06/08/21 12:14 06/08/21 12:14 Labs: Lab Results 06/08/21 06/08/21 06/08/21 Range/Units 11:04 12:14 12:14 WBC 9.1 (4.8-10.8) X10*3/uL RBC 3.70 L (4.20-5.50) X10*6/uL Hgb 11.4 L (12.0-16.0) g/dl Hct 34.9 L (37-47) % MCV 94.3 (80-98) fL MCH 30.8 (27.0-33.0) pg MCHC 32.7 (31.0-35.0) g/dl RDW 13.3 (11.0-16.0) % Plt Count 224 (160-400) X10*3/uL MPV 9.6 (9.4-12.3) fL Immature Gran % (Auto) 0.4 (0.0-0.4) % Neut % (Auto) 72.2 (45-73) % Lymph % (Auto) 15.7 L (20-40) % [place] % (Auto) 8.2 (2-11) % Eos % (Auto) 3.2 (0-4) % Baso % (Auto) 0.3 (0-2) % Lymph # (Auto) 1.4 (1.2-4.9) X10*3/uL [place] # (Auto) 0.8 (0.1-1.2) X10*3/uL Eos # (Auto) 0.3 (0.0-0.4) X10*3/uL Baso # (Auto) 0.0 (0.0-0.2) X10*3/uL Abs Immat Gran (auto) 0.04 H (0.00-0.03) X10*3/uL Absolute Neuts (auto) 6.6 (2.0-8.3) X10*3/uL Absolute Nucleated RBC 0.000 (0.0-0.012) X10*3/uL Nucleated RBC % (auto) 0.0 (0.0-0.2) /100WBC Sodium 138 (135-145) mmol/L Potassium 4.9 (3.3-5.1) mmol/L Chloride 102 (96-108) mmol/L Carbon Dioxide 28 (22-29) mmol/L Anion Gap 13 (12-20) BUN 49 H (9-16) mg/dL Creatinine 1.70 H (0.5-1.4) mg/dL Estim Creat Clear Calc 33.3 Estimated GFR 30 Random Glucose 230 H (60-115) mg/dL Calcium 9.1 (8.4-10.2) mg/dL Total Bilirubin 0.5 (0.0-1.0) mg/dL Direct Bilirubin 0.2 (0.0-0.5) mg/dL AST 41 H D (5-31) U/L ALT 39 H (0-31) U/L Alkaline Phosphatase 102 (39-117) U/L Total Protein 6.9 (6.5-8.0) g/dL Albumin 3.5 (3.5-5.0) g/dL Urine Color STRAW Urine Appearance CLOUDY Urine pH 6.0 (5.0-8.0) Ur Specific [place] 1.020 (1.005-1.025) Urine Protein 2+ H (NEG-TRACE) MG/DL Urine Glucose (UA) NEG (NEG) MG/DL Urine Ketones NEG (NEG) MG/DL Urine Blood 1+ H (NEG) Urine Nitrite POS H (NEG) Ur Leukocyte Esterase 1+ H (NEG) Urine RBC 1-4 (0) /HPF Urine WBC 76-150 H (0-4) /HPF Ur Squamous Epith Cells TRACE /LPF Urine Bacteria 2+ /LPF Discharge Plan Discharge Clinical Impression: Pyelonephritis Patient Disposition: Home, Self-Care Instructions: Kidney Infection (ED) Additional Instructions: your blood work is at her baseline, however you do have a urine infection and due to your back pain we will treat you as a kidney infection called pyelonephritis Ciprofloxacin as an antibiotic, please take as prescribed You need to make sure staying hydrated at home, drink plenty of fluids Please follow-up with her primary care doctor If your pain persists or worsens, you developed fever, nausea, or vomiting please return to the ED immediately Prescriptions: New ciprofloxacin HCl 500 mg tablet 500 mg PO BID 7 Days Qty: 14 RF: 0 No Action furosemide 40 mg tablet 40 mg PO DAILY Qty: 90 RF: 3 lorazepam 0.5 mg Tablet 0.5 mg PO BID PRN (Reason: Anxiety) RF: 0 atorvastatin 40 mg Tablet 40 mg PO BEDTIME RF: 0 metoprolol succinate [Toprol XL] 50 mg Tablet Extended Release 24 Hr 50 mg PO DAILY RF: 0 allopurinol 100 mg Tablet 100 mg PO DAILY RF: 0 albuterol sulfate 90 mcg/actuation Hfa Aerosol Inhaler 2 puff INHALATION Q6H PRN (Reason: Shortness Of Breath) RF: 0 Breo Ellipta 100-25 mcg/dose Blister With Device 1 inh INHALATION DAILY PRN (Reason: Shortness Of Breath) RF: 0 aspirin 81 mg Tablet,Delayed Release (Dr/Ec) 81 mg PO DAILY RF: 0 Hold Instructions: Resume on 01/13/21. tamsulosin 0.4 mg capsule 0.4 mg PO DAILY@1700 RF: 0 ferrous sulfate [iron] 325 mg (65 mg iron) Tablet 325 mg PO DAILY RF: 0 ergocalciferol (vitamin D2) 1,250 mcg (50,000 unit) capsule 1 cap PO SA@1000 RF: 0 amlodipine 5 mg tablet 5 mg PO DAILY RF: 0 insulin aspart U-100 [Novolog Flexpen U-100 Insulin] 100 unit/mL (3 mL) Insulin Pen 5 unit SUBCUT BIDAC RF: 0 loperamide 2 mg Tablet 2 mg PO QID PRN (Reason: Diarrhea) RF: 0 nitroglycerin 0.4 mg Tablet, Sublingual 0.4 mg SUBLINGUAL Q5M PRN (Reason: Chest Pain) RF: 0 melatonin 5 mg Tablet 5 mg PO BEDTIME PRN (Reason: Sleep) RF: 0 pantoprazole 20 mg tablet,delayed release (DR/EC) 1 tab PO DAILY RF: 0 gabapentin 100 mg capsule 200 mg PO TID RF: 0 acetaminophen 500 mg tablet 500 mg PO Q6H PRNRF: 0 metoclopramide HCl 5 mg tablet 5 mg PO QID RF: 0 (DME) pen needle, diabetic 31 gauge x 5/16 needle See Rx Instructions ea subcut .MEDSUPPLY Qty: 1200 RF: 0 cholecalciferol (vitamin D3) 25 mcg (1,000 unit) capsule 25 mcg PO DAILY RF: 0 Tresiba FlexTouch U-100 100 unit/mL (3 mL) insulin pen 12 unit subcut DAILY RF: 0 Referrals: Physician,Unknown [Primary Care Provider] - 2 days
[2021-06-08] MEDS: 0.9 % Sodium Chloride 1,000 ML 999 ML IVCONT (12:17)
[2021-06-08 12:21] LABS: Basophils Percent Auto 0.3 % (0-2); Eosinophils Absolute Auto 0.3 X10*3/uL (0.0-0.4); Eosinophils Percent Auto 3.2 % (0-4); Hematocrit 34.9 % (37-47); Hemoglobin 11.4 g/dl (12.0-16.0); Imm Gran Abs Auto 0.04 X10*3/uL (0.00-0.03); Imm Gran Pct Auto 0.4 % (0.0-0.4); Lymphocytes Absolute Auto 1.4 X10*3/uL (1.2-4.9); Lymphocytes Percent Auto 15.7 % (20-40); Mean Corpuscular HGB Conc 32.7 g/dl (31.0-35.0); Mean Corpuscular Hemoglobin 30.8 pg (27.0-33.0); Mean Corpuscular Volume 94.3 fL (80-98); Mean Platelet Volume 9.6 fL (9.4-12.3); Monocytes Absolute Auto 0.8 X10*3/uL (0.1-1.2); Monocytes Percent Auto 8.2 % (2-11); Neutrophils Absolute Auto 6.6 X10*3/uL (2.0-8.3); Neutrophils Percent Auto 72.2 % (45-73); Platelet Count 224 X10*3/uL (160-400); Red Cell Distribution Width 13.3 % (11.0-16.0); White Blood Count 9.1 X10*3/uL (4.8-10.8)
[2021-06-08 12:22] VITALS: BP 157/85; PULSE 71; RESP 16; O2SAT 97
[2021-06-08 12:23] LABS: MANUAL DIFF FLAG NO
--- NOTE | 2021-06-08 12:23 | PC.NURSE ---
Pt reporting pain. Carmen THOMAS notified. IV in place and blood sent to lab.
[2021-06-08 12:54] LABS: Alanine Aminotransferase 39 U/L (0-31); Albumin Level 3.5 g/dL (3.5-5.0); Alkaline Phosphatase 102 U/L (39-117); Anion Gap 13 (12-20); Aspartate Amino Transferase 41 U/L (5-31); Bilirubin Direct 0.2 mg/dL (0.0-0.5); Bilirubin Total 0.5 mg/dL (0.0-1.0); Blood Urea Nitrogen 49 mg/dL (9-16); Calcium 9.1 mg/dL (8.4-10.2); Carbon Dioxide 28 mmol/L (22-29); Chloride 102 mmol/L (96-108); Creatinine Clr Calc Pharmacy 33.3; Estimated Glomerular Filt Rate 30; Glucose Random 230 mg/dL (60-115); Potassium 4.9 mmol/L (3.3-5.1); Sodium 138 mmol/L (135-145); Total Protein 6.9 g/dL (6.5-8.0)
[2021-06-08] MEDS: Ketorolac Tromethamine 15 MG/ML VIAL IVPUSH (13:28)
== END 2021-06-08 15:41 | disposition home or self-care (01) ==
PROVIDERS: Physician Assistant; Emergency Provider Emergency Medicine
DX: N12 Tubulo-interstitial nephritis, not specified as acute or chronic (principal); J44.9 Chronic obstructive pulmonary disease, unspecified; I25.10 Atherosclerotic heart disease of native coronary artery without angina pectoris; I10 Essential (primary) hypertension; Z87.891 Personal history of nicotine dependence; Z79.899 Other long term (current) drug therapy
CPT/HCPCS: 36415; 76775; 80048; 80076; 81001; 81003; 85025; 87086; 96365; 96375; 99284; J1885

== ENCOUNTER 2021-06-18 06:35 | Outpatient (REF) | payer OTHER, SELFPAY ==
--- NOTE | ~2021-06-18 | FL_ITS ---
EXAMINATION: XR FLUOROSCOPY WITH IMAGES CLINICAL INFORMATION: Unilateral primary osteoarthritis left knee. COMPARISON: None. TECHNIQUE: Fluoroscopy performed by Dr. Kavitha Villaseñor. Fluoroscopy time: 0.2 minutes DAP: 0.784 Gycm2 Images: 1 FINDINGS: A single fluoroscopy obtained unilateral knee exam reveals 2 needles positioned along the distal femur and solitary needle along the proximal tibia for pain management. The joint space appears preserved. There is likely a small loose body seen in the suprapatellar bursa. FL/FL guidance in treatment room IMPRESSION: Fluoroscopy was provided for pain management with a single image obtained.
== END 2021-06-18 06:36 | disposition home or self-care (01) ==
LOC: HO.RADIR 06:35
PROVIDERS: Visit Provider Internal Medicine
DX: M17.12 Unilateral primary osteoarthritis, left knee (principal)
CPT/HCPCS: 64450; 64454

== ENCOUNTER 2021-07-09 11:44 | Emergency (ER) | payer OTHER, SELFPAY ==
--- NOTE | 2021-07-09 | ECG_ITS ---
Test Reason : CHEST PAIN Blood Pressure : / mmHG Vent. Rate : 064 BPM Atrial Rate : 064 BPM P-R Int : 226 ms QRS Dur : 130 ms QT Int : 484 ms P-R-T Axes : -26 103 238 degrees QTc Int : 499 ms Sinus rhythm with 1st degree A-V block Right bundle branch block T wave abnormality, consider inferior ischemia Abnormal ECG When compared with ECG of 10-MAY-2021 20:17, Vent. rate has decreased BY 32 BPM Right bundle branch block has replaced Incomplete right bundle branch block Referred By: Jade Gracia Electronically Signed By:GLORIA PRUETT
--- NOTE | ~2021-07-09 | XR_ITS ---
EXAMINATION: XR CHEST CLINICAL INFORMATION: Chest pain. COMPARISON: Most recent chest radiograph dated 03/06/2021. TECHNIQUE: Frontal view of the chest was obtained. FINDINGS: No focal airspace consolidation. Stable cardiomediastinal silhouette. Sternal wires and mediastinal surgical clips as well as left chest wall pacer in unchanged position. No pleural effusion or pneumothorax. No acute osseous abnormality. XR/XR chest 1V IMPRESSION: No acute cardiopulmonary findings.
[2021-07-09 11:50] VITALS: BP 137/58; PULSE 64; RESP 16; TEMP 37.2; O2SAT 98; BMI 32.1
--- NOTE | 2021-07-09 12:03 | ED.CHESTPAIN ---
HPI - Chest Pain General Chief Complaint: Chest Pain Stated Complaint: CHEST PAIN Time Seen by Provider: 07/09/21 12:00 Source: patient Mode of arrival: ambulatory Limitations: no limitations History of Present Illness MD complaint: other (L shoulder and chest pain) Pertinent past history: coronary artery disease, prior [place] and CABG Onset (ago): hour(s) (8 hours ago ) Timing of current episode: constant Prior episodes: Yes Onset: during rest Pain location: left chest and other (L shoulder) Pain radiation: left arm Severity: moderate Quality: tightness Relieving factors: nothing Exacerbating factors: palpation and movement Treatment prior to arrival: aspirin Related Data Home Medications Medication Instructions Recorded Confirmed lorazepam 0.5 mg tablet 0.5 mg PO BID PRN 09/14/20 06/18/21 albuterol sulfate 90 mcg/actuation 2 puff INHALATION Q6H PRN 09/16/20 06/18/21 aerosol inhaler allopurinol 100 mg tablet 100 mg PO DAILY 09/16/20 06/18/21 aspirin 81 mg tablet,delayed 81 mg PO DAILY 09/16/20 06/18/21 release atorvastatin 40 mg tablet 40 mg PO BEDTIME 09/16/20 06/18/21 fluticasone furoate 100 1 inh INHALATION DAILY PRN 09/16/20 06/18/21 mcg-vilanterol 25 mcg/dose inhalation powder (Breo Ellipta) metoprolol succinate 50 mg 50 mg PO DAILY 09/16/20 06/18/21 tablet,extended release 24 hr (Toprol XL) insulin degludec 100 unit/mL (3 12 unit SUBCUT DAILY ml 11/13/20 06/18/21 mL) subcutaneous pen (Tresiba FlexTouch U-100 insulin) amlodipine 5 mg tablet 5 mg PO DAILY 12/22/20 06/18/21 ergocalciferol (vitamin D2) 1,250 1 cap PO SA@1000 12/22/20 06/18/21 mcg (50,000 unit) capsule ferrous sulfate 325 mg (65 mg 325 mg PO DAILY 12/22/20 06/18/21 iron) tablet (iron) tamsulosin 0.4 mg capsule 0.4 mg PO DAILY@1700 12/22/20 06/18/21 insulin aspart U-100 100 unit/mL 5 unit SUBCUT BIDAC 01/08/21 06/18/21 (3 mL) subcutaneous pen (Novolog Flexpen U-100 Insulin aspart) loperamide 2 mg tablet 2 mg PO QID PRN 01/08/21 06/18/21 melatonin 5 mg tablet 5 mg PO BEDTIME PRN 01/08/21 06/18/21 nitroglycerin 0.4 mg sublingual 0.4 mg SUBLINGUAL Q5M PRN 01/08/21 06/18/21 tablet gabapentin 100 mg capsule 200 mg PO TID 03/06/21 06/18/21 pantoprazole 20 mg tablet,delayed 1 tab PO DAILY 03/06/21 06/18/21 release acetaminophen 500 mg tablet 500 mg PO Q6H PRN 03/20/21 06/18/21 cholecalciferol (vitamin D3) 25 25 mcg PO DAILY 03/20/21 06/18/21 mcg (1,000 unit) capsule metoclopramide HCl 5 mg tablet 5 mg PO QID 03/20/21 06/18/21 pen needle, diabetic 31 gauge x #1200 ea 03/20/21 06/18/2104/06 Previous Rx's Medication Instructions Recorded furosemide 40 mg tablet 40 mg PO DAILY #90 tab 12/06/20 ciprofloxacin HCl 500 mg tablet 500 mg PO BID 7 Days #14 tab 06/08/21 Allergies Allergy/AdvReac Type Severity Reaction Status Date / Time tetracycline [Tetracycline] Allergy Mild HIVES, Verified 07/09/21 11:54 anaphylaxis, anaphylaxis Review of Systems Review of Systems: Constitutional : No Weight loss, No Fever, No Chills ENT/Mouth : No sore throat, No Rhinorrhea Eyes: No Eye Pain, No Swelling Cardiovascular : pos Chest Pain, no SOB, no Dyspnea on Exertion, No Orthopnea, No Edema, No Palpitations Respiratory : No Cough, No Sputum Gastrointestinal : no Nausea, No Vomiting, No Diarrhea, No abdominal Pain, No Hematochezia, No Melena Genitourinary : No Dysuria, No Urinary Frequency Musculoskeletal : pos joint pain, No Myalgias, No Joint Swelling Skin : No Skin Lesions, No rash Neuro : No Weakness, No Numbness, No Dizziness, No Headache Psych : No Anxiety/Panic, No Depression Heme/Lymph: No Bruising, No Lymphadenopathy Endocrine : No Polyuria, No Polydipsia All other systems reviewed and are negative [facility] Past Medical History Medical History (Updated 07/09/21 @ 13:12 by Jade Gracia DO) Acute heart failure with preserved ejection fraction Anemia Anxiety Arthritis Cardiac pacemaker in situ Carpal tunnel syndrome CHF (congestive heart failure) Chronic heart failure with preserved ejection fraction (HFpEF) COPD exacerbation Coronary artery disease CVA (cerebral vascular accident) Diabetes Fall Gastritis Gastroparesis Gastroparesis GERD (gastroesophageal reflux disease) Headache HLD (hyperlipidemia) HTN (hypertension) HTN (hypertension) Hypocalcemia Hypoxia IBS (irritable bowel syndrome) Knee pain, left Myocardial infarct Nausea and vomiting Orthostasis Renal failure Suprapatellar effusion of knee T2DM (type 2 diabetes mellitus) UTI (urinary tract infection) Surgical History H/O Achilles tendon repair History of appendectomy History of bladder surgery History of carpal tunnel release History of total hysterectomy with bilateral salpingo-oophorectomy (BSO) Hx of amputation Hx of CABG (~2019) Hx of cholecystectomy Hx of endoscopy Hx of knee surgery Hx of tonsillectomy Family History Family History Father No problems noted. 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 Oriented X3. No acute distress. Eyes: Pupils equal, round and reactive to light. ENT: Pharynx normal. Neck: Normal inspection. Neck supple. CVS: Normal heart rate and rhythm. Pulses normal. Chest: ttp along L chest wall and L shoulder reproduces pain distally NV intact in LUE - pacer site c/d/i no swelling no redness no ttp Respiratory: No respiratory distress. Breath sounds normal. Abdomen: Soft and nontender. Skin: Skin warm and dry. Normal skin color. Normal skin turgor. Extremities: No lower extremity edema. No calf ttp Neuro: Oriented X 3. No motor deficit. No sensory deficit. Course Course Course Narrative: pain was actually 8 hours ago she does not need a repeat troponin it is flat no EKG changes this seems MSK will place lidocaine patch on and DC home BP and blood sugar stable MDM - Chest Pain MDM Narrative Medical decision making narrative: 61 yo female with hx of HTN, IDDM, chronically elevated troponin, CAD s/p CABG, renal fiilure, IBS, GERD comes in with L shoulder pain that radiates to her chest and down arm - distally NV intact, worse with movement and palpation - woke up with this seems MSK in nature will obtain troponin x 2, EKG, treat pain. Dispo per results and findings Lab Data Result diagrams: 07/09/21 12:21 07/09/21 12:21 Labs: Lab Results 07/09/21 07/09/21 07/09/21 Range/Units 12:21 12:21 12:21 WBC 8.5 (4.8-10.8) X10*3/uL RBC 3.60 L (4.20-5.50) X10*6/uL Hgb 10.7 L (12.0-16.0) g/dl Hct 33.4 L (37-47) % MCV 92.8 (80-98) fL MCH 29.7 (27.0-33.0) pg MCHC 32.0 (31.0-35.0) g/dl RDW 13.2 (11.0-16.0) % Plt Count 207 (160-400) X10*3/uL MPV 10.2 (9.4-12.3) fL Immature Gran % (Auto) 0.6 H (0.0-0.4) % Neut % (Auto) 60.7 (45-73) % Lymph % (Auto) 24.9 (20-40) % Bertie % (Auto) 8.4 (2-11) % Eos % (Auto) 5.0 H (0-4) % Baso % (Auto) 0.4 (0-2) % Lymph # (Auto) 2.1 (1.2-4.9) X10*3/uL Bertie # (Auto) 0.7 (0.1-1.2) X10*3/uL Eos # (Auto) 0.4 (0.0-0.4) X10*3/uL Baso # (Auto) 0.0 (0.0-0.2) X10*3/uL Abs Immat Gran (auto) 0.05 H (0.00-0.03) X10*3/uL Absolute Neuts (auto) 5.2 (2.0-8.3) X10*3/uL Absolute Nucleated RBC 0.000 (0.0-0.012) X10*3/uL Nucleated RBC % (auto) 0.0 (0.0-0.2) /100WBC PT 11.5 (9.9-13.0) SEC INR 1.0 (0.9-1.1) APTT 28.8 (24.1-38.0) SEC Sodium 141 (135-145) mmol/L Potassium 3.9 D (3.3-5.1) mmol/L Chloride 106 (96-108) mmol/L Carbon Dioxide 26 (22-29) mmol/L Anion Gap 13 (12-20) BUN 36 H (9-16) mg/dL Creatinine 1.62 H (0.5-1.4) mg/dL Estim Creat Clear Calc 34.8 Estimated GFR 32 Random Glucose 81 D (60-115) mg/dL Calcium 9.0 (8.4-10.2) mg/dL Magnesium 2.2 (1.6-2.6) mg/dL Total Bilirubin 0.4 (0.0-1.0) mg/dL Direct Bilirubin 0.2 (0.0-0.5) mg/dL AST 19 D (5-31) U/L ALT 27 (0-31) U/L Alkaline Phosphatase 94 (39-117) U/L Troponin I High Sens (<3.5-17.0) ng/L Total Protein 7.0 (6.5-8.0) g/dL Albumin 3.6 (3.5-5.0) g/dL 07/09/21 Range/Units 12:21 WBC (4.8-10.8) X10*3/uL RBC (4.20-5.50) X10*6/uL Hgb (12.0-16.0) g/dl Hct (37-47) % MCV (80-98) fL MCH (27.0-33.0) pg MCHC (31.0-35.0) g/dl RDW (11.0-16.0) % Plt Count (160-400) X10*3/uL MPV (9.4-12.3) fL Immature Gran % (Auto) (0.0-0.4) % Neut % (Auto) (45-73) % Lymph % (Auto) (20-40) % Bertie % (Auto) (2-11) % Eos % (Auto) (0-4) % Baso % (Auto) (0-2) % Lymph # (Auto) (1.2-4.9) X10*3/uL Bertie # (Auto) (0.1-1.2) X10*3/uL Eos # (Auto) (0.0-0.4) X10*3/uL Baso # (Auto) (0.0-0.2) X10*3/uL Abs Immat Gran (auto) (0.00-0.03) X10*3/uL Absolute Neuts (auto) (2.0-8.3) X10*3/uL Absolute Nucleated RBC (0.0-0.012) X10*3/uL Nucleated RBC % (auto) (0.0-0.2) /100WBC PT (9.9-13.0) SEC INR (0.9-1.1) APTT (24.1-38.0) SEC Sodium (135-145) mmol/L Potassium (3.3-5.1) mmol/L Chloride (96-108) mmol/L Carbon Dioxide (22-29) mmol/L Anion Gap (12-20) BUN (9-16) mg/dL Creatinine (0.5-1.4) mg/dL Estim Creat Clear Calc Estimated GFR Random Glucose (60-115) mg/dL Calcium (8.4-10.2) mg/dL Magnesium (1.6-2.6) mg/dL Total Bilirubin (0.0-1.0) mg/dL Direct Bilirubin (0.0-0.5) mg/dL AST (5-31) U/L ALT (0-31) U/L Alkaline Phosphatase (39-117) U/L Troponin I High Sens 10.2 (<3.5-17.0) ng/L Total Protein (6.5-8.0) g/dL Albumin (3.5-5.0) g/dL ECG Data ECG #1: Attestation: I personally reviewed and interpreted this ECG as follows: ECG interpretation date: 07/09/21 ECG interpretation time: 12:04 Interpretation: Rate: 64 Rhythm: NSR with 1st degree AVB [place]: left, LVH Normal P waves. Normal [place]. incomplete RBBB ST T wave : no [place]UR[place], inverted inf and lateral leads qTC: normal prior studies: no change from prior The study has been interpreted contemporaneously by me. . Discharge Plan Discharge Clinical Impression: Acute shoulder pain Qualifiers: Laterality: left Qualified Code(s): M25.512 - Pain in left shoulder Patient Disposition: Home, Self-Care Instructions: Arthralgia (ED) Additional Instructions: return to ED for any worsening symptoms or concerns troponin, EKG, chest xray were all normal Prescriptions: No Action furosemide 40 mg tablet 40 mg PO DAILY Qty: 90 RF: 3 lorazepam 0.5 mg Tablet 0.5 mg PO BID PRN (Reason: Anxiety) RF: 0 atorvastatin 40 mg Tablet 40 mg PO BEDTIME RF: 0 metoprolol succinate [Toprol XL] 50 mg Tablet Extended Release 24 Hr 50 mg PO DAILY RF: 0 allopurinol 100 mg Tablet 100 mg PO DAILY RF: 0 albuterol sulfate 90 mcg/actuation Hfa Aerosol Inhaler 2 puff INHALATION Q6H PRN (Reason: Shortness Of Breath) RF: 0 Breo Ellipta 100-25 mcg/dose Blister With Device 1 inh INHALATION DAILY PRN (Reason: Shortness Of Breath) RF: 0 aspirin 81 mg Tablet,Delayed Release (Dr/Ec) 81 mg PO DAILY RF: 0 Hold Instructions: Resume on 01/13/21. ciprofloxacin HCl 500 mg tablet 500 mg PO BID 7 Days Qty: 14 RF: 0 tamsulosin 0.4 mg capsule 0.4 mg PO DAILY@1700 RF: 0 ferrous sulfate [iron] 325 mg (65 mg iron) Tablet 325 mg PO DAILY RF: 0 ergocalciferol (vitamin D2) 1,250 mcg (50,000 unit) capsule 1 cap PO SA@1000 RF: 0 amlodipine 5 mg tablet 5 mg PO DAILY RF: 0 insulin aspart U-100 [Novolog Flexpen U-100 Insulin] 100 unit/mL (3 mL) Insulin Pen 5 unit SUBCUT BIDAC RF: 0 loperamide 2 mg Tablet 2 mg PO QID PRN (Reason: Diarrhea) RF: 0 nitroglycerin 0.4 mg Tablet, Sublingual 0.4 mg SUBLINGUAL Q5M PRN (Reason: Chest Pain) RF: 0 melatonin 5 mg Tablet 5 mg PO BEDTIME PRN (Reason: Sleep) RF: 0 pantoprazole 20 mg tablet,delayed release (DR/EC) 1 tab PO DAILY RF: 0 gabapentin 100 mg capsule 200 mg PO TID RF: 0 acetaminophen 500 mg tablet 500 mg PO Q6H PRNRF: 0 metoclopramide HCl 5 mg tablet 5 mg PO QID RF: 0 (DME) pen needle, diabetic 31 gauge x 5/16 needle See Rx Instructions ea subcut .MEDSUPPLY Qty: 1200 RF: 0 cholecalciferol (vitamin D3) 25 mcg (1,000 unit) capsule 25 mcg PO DAILY RF: 0 Tresiba FlexTouch U-100 100 unit/mL (3 mL) insulin pen 12 unit subcut DAILY RF: 0 Referrals: Physician,Unknown [Primary Care Provider] - 2 days (if not better)
[2021-07-09] MEDS: oxyCODONE HCl Immed Release 5 MG TABLET 10 MG PO (12:20)
[2021-07-09 12:25] LABS: MANUAL DIFF FLAG NO
[2021-07-09 12:28] LABS: Basophils Percent Auto 0.4 % (0-2); Eosinophils Absolute Auto 0.4 X10*3/uL (0.0-0.4); Hematocrit 33.4 % (37-47); Hemoglobin 10.7 g/dl (12.0-16.0); Imm Gran Abs Auto 0.05 X10*3/uL (0.00-0.03); Imm Gran Pct Auto 0.6 % (0.0-0.4); Lymphocytes Absolute Auto 2.1 X10*3/uL (1.2-4.9); Lymphocytes Percent Auto 24.9 % (20-40); Mean Corpuscular Hemoglobin 29.7 pg (27.0-33.0); Mean Corpuscular Volume 92.8 fL (80-98); Mean Platelet Volume 10.2 fL (9.4-12.3); Monocytes Absolute Auto 0.7 X10*3/uL (0.1-1.2); Monocytes Percent Auto 8.4 % (2-11); Neutrophils Absolute Auto 5.2 X10*3/uL (2.0-8.3); Neutrophils Percent Auto 60.7 % (45-73); Platelet Count 207 X10*3/uL (160-400); Red Cell Distribution Width 13.2 % (11.0-16.0); White Blood Count 8.5 X10*3/uL (4.8-10.8)
[2021-07-09 12:32] LABS: Prothrombin Time 11.5 SEC (9.9-13.0)
[2021-07-09 12:35] LABS: Partial Thromboplastin Time 28.8 SEC (24.1-38.0)
[2021-07-09 13:05] LABS: Alanine Aminotransferase 27 U/L (0-31); Albumin Level 3.6 g/dL (3.5-5.0); Alkaline Phosphatase 94 U/L (39-117); Anion Gap 13 (12-20); Aspartate Amino Transferase 19 U/L (5-31); Bilirubin Direct 0.2 mg/dL (0.0-0.5); Bilirubin Total 0.4 mg/dL (0.0-1.0); Blood Urea Nitrogen 36 mg/dL (9-16); Carbon Dioxide 26 mmol/L (22-29); Chloride 106 mmol/L (96-108); Creatinine Clr Calc Pharmacy 34.8; Estimated Glomerular Filt Rate 32; Glucose Random 81 mg/dL (60-115); Magnesium 2.2 mg/dL (1.6-2.6); Potassium 3.9 mmol/L (3.3-5.1); Sodium 141 mmol/L (135-145)
[2021-07-09 13:06] LABS: Troponin-I High Sensitivity 10.2 ng/L (<3.5-17.0)
[2021-07-09 13:43] VITALS: BP 132/64; PULSE 61; RESP 13; O2SAT 93
[2021-07-09] MEDS: Lidocaine 4 % Patch ADH..PATCH 1 PATCH TRANSDERMA (13:48)
== END 2021-07-09 13:53 | disposition home or self-care (01) ==
PROVIDERS: Emergency Provider Emergency Medicine
DX: M25.512 Pain in left shoulder (principal); J44.9 Chronic obstructive pulmonary disease, unspecified; F17.210 Nicotine dependence, cigarettes, uncomplicated; I10 Essential (primary) hypertension; Z71.6 Tobacco abuse counseling; I25.10 Atherosclerotic heart disease of native coronary artery without angina pectoris; Z86.73 Personal history of transient ischemic attack (TIA), and cerebral infarction without residual deficits; Z79.899 Other long term (current) drug therapy
CPT/HCPCS: 36415; 71045; 80048; 80076; 83735; 84484; 85025; 85610; 85730; 93005; 99283; 99284

== ENCOUNTER 2021-08-09 09:17 | Emergency (ER) | payer OTHER, SELFPAY ==
--- NOTE | ~2021-08-09 | XR_ITS ---
EXAMINATION: XR KNEE, LEFT CLINICAL INFORMATION: Acute on chronic knee pain COMPARISON: Knee radiographs on 12/22/2020 TECHNIQUE: Four views of the left knee. FINDINGS: No acute fracture or dislocation. There is mild medial compartment joint space narrowing with osteophytosis. There is a moderate suprapatellar joint effusion. There is atherosclerotic calcification. XR/XR knee LT 4V IMPRESSION: Mild degenerative disease of the left knee. Suprapatellar joint effusion.
[2021-08-09 09:18] VITALS: BP 110/70; PULSE 71; O2SAT 95
[2021-08-09 09:25] VITALS: BP 167/64; PULSE 73; RESP 18; TEMP 36.6; O2SAT 95; BMI 32.9
[2021-08-09] MEDS: oxyCODONE HCl Immed Release 5 MG TABLET PO (09:44)
--- NOTE | 2021-08-09 10:10 | ED_ITS ---
HPI - Extremity Problem General Chief complaint: Extremity Problem Stated complaint: left knee pain Time Seen by Provider: 08/09/21 09:21 Source: patient Mode of arrival: ambulatory History of Present Illness HPI Narrative: 61-year-old female with a past medical history of anemia, anxiety, pacemaker, CHF, COPD, CAD, CVA, diabetes, gastritis, gastroparesis, GERD, hyperlipidemia, hypertension, IBS, osteoarthritis, renal failure, UTI, to the ED complaining of acute on chronic left knee pain since yesterday. Reports known osteoarthritis and left knee were shoes was to have knee replacement however not surgical candidate due to medical history. Denies known injury/trauma, fall, twisting injury, numbness, tingling, weakness, fever, chills. MD Complaint: extremity pain Related Data Home Medications Medication Instructions Recorded Confirmed lorazepam 0.5 mg tablet 0.5 mg PO BID PRN 09/14/20 06/18/21 albuterol sulfate 90 mcg/actuation 2 puff INHALATION Q6H PRN 09/16/20 06/18/21 aerosol inhaler allopurinol 100 mg tablet 100 mg PO DAILY 09/16/20 06/18/21 aspirin 81 mg tablet,delayed 81 mg PO DAILY 09/16/20 06/18/21 release atorvastatin 40 mg tablet 40 mg PO BEDTIME 09/16/20 06/18/21 fluticasone furoate 100 1 inh INHALATION DAILY PRN 09/16/20 06/18/21 mcg-vilanterol 25 mcg/dose inhalation powder (Breo Ellipta) metoprolol succinate 50 mg 50 mg PO DAILY 09/16/20 06/18/21 tablet,extended release 24 hr (Toprol XL) insulin degludec 100 unit/mL (3 12 unit SUBCUT DAILY ml 11/13/20 06/18/21 mL) subcutaneous pen (Tresiba FlexTouch U-100 insulin) amlodipine 5 mg tablet 5 mg PO DAILY 12/22/20 06/18/21 ergocalciferol (vitamin D2) 1,250 1 cap PO SA@1000 12/22/20 06/18/21 mcg (50,000 unit) capsule ferrous sulfate 325 mg (65 mg 325 mg PO DAILY 12/22/20 06/18/21 iron) tablet (iron) tamsulosin 0.4 mg capsule 0.4 mg PO DAILY@1700 12/22/20 06/18/21 insulin aspart U-100 100 unit/mL 5 unit SUBCUT BIDAC 01/08/21 06/18/21 (3 mL) subcutaneous pen (Novolog Flexpen U-100 Insulin aspart) loperamide 2 mg tablet 2 mg PO QID PRN 01/08/21 06/18/21 melatonin 5 mg tablet 5 mg PO BEDTIME PRN 01/08/21 06/18/21 nitroglycerin 0.4 mg sublingual 0.4 mg SUBLINGUAL Q5M PRN 01/08/21 06/18/21 tablet gabapentin 100 mg capsule 200 mg PO TID 03/06/21 06/18/21 pantoprazole 20 mg tablet,delayed 1 tab PO DAILY 03/06/21 06/18/21 release acetaminophen 500 mg tablet 500 mg PO Q6H PRN 03/20/21 06/18/21 cholecalciferol (vitamin D3) 25 25 mcg PO DAILY 03/20/21 06/18/21 mcg (1,000 unit) capsule metoclopramide HCl 5 mg tablet 5 mg PO QID 03/20/21 06/18/21 pen needle, diabetic 31 gauge x #1200 ea 03/20/21 06/18/21/ Previous Rx's Medication Instructions Recorded furosemide 40 mg tablet 40 mg PO DAILY #90 tab 12/06/20 ciprofloxacin HCl 500 mg tablet 500 mg PO BID 7 Days #14 tab 06/08/21 acetaminophen 500 mg tablet 500 mg PO Q6H PRN #20 tab 08/09/21 (Tylenol Extra Strength) diclofenac sodium 1 % topical gel 2 g TOPICAL QID #100 g 08/09/21 Allergies Allergy/AdvReac Type Severity Reaction Status Date / Time tetracycline [Tetracycline] Allergy Mild HIVES, Verified 07/09/21 11:54 anaphylaxis, anaphylaxis Review of Systems Review of Systems: Constitutional: No Fever, No Chills ENT/Mouth: No Ear Pain, No sore throat, No Rhinorrhea Cardiovascular: No Chest Pain, No SOB Respiratory: No Cough, No Sputum, No Wheezing Gastrointestinal: No Nausea, No Vomiting, No Abdominal pain Genitourinary:, No Dysuria, No Urgency, No Flank Pain Musculoskeletal: + joint pain, No Myalgias, No Joint Swelling Skin: No Skin Lesions, No rash Neuro: No Weakness, No Numbness, No Paresthesias Yes all other systems are reviewed and are negative [facility] Past Medical History Attestation statement: The following information was validated with the patient. Medical History (Updated 08/09/21 @ 10:19 by WILLIAM Sánchez) Acute heart failure with preserved ejection fraction Anemia Anxiety Arthritis Cardiac pacemaker in situ Carpal tunnel syndrome CHF (congestive heart failure) Chronic heart failure with preserved ejection fraction (HFpEF) COPD exacerbation Coronary artery disease CVA (cerebral vascular accident) Diabetes Fall Gastritis Gastroparesis Gastroparesis GERD (gastroesophageal reflux disease) Headache HLD (hyperlipidemia) HTN (hypertension) HTN (hypertension) Hypocalcemia Hypoxia IBS (irritable bowel syndrome) Knee pain, left Myocardial infarct Nausea and vomiting Orthostasis Renal failure Suprapatellar effusion of knee T2DM (type 2 diabetes mellitus) UTI (urinary tract infection) Surgical History H/O Achilles tendon repair History of appendectomy History of bladder surgery History of carpal tunnel release History of total hysterectomy with bilateral salpingo-oophorectomy (BSO) Hx of amputation Hx of CABG (~2019) Hx of cholecystectomy Hx of endoscopy Hx of knee surgery Hx of tonsillectomy Family History Family History Father No problems noted. Mother Diabetes Hypercholesteremia Hypertension Stroke Social History Social History Household Members: Family Household Members Other:: 1 Housing: Apartment Do you presently have visiting nurse or other home services: Yes (entrance guard, vna) Alcohol intake: never Years Smoked: 20 Second Hand Smoke Exposure: No Advance Directives: No Advance Directives Information Provided: No Patient : No service: No Current occupational status: disabled Physical Exam Vital Signs: Vital Signs: Last Vital Signs Temp 97.8 F 08/09/21 09:25 Pulse 73 08/09/21 09:25 Resp 18 08/09/21 10:50 BP 167/64 H 08/09/21 09:25 Pulse Ox 95 08/09/21 09:25 Body Mass Index 32.9 Const: General: cooperative and healthy appearing Orientation/consciousness: patient oriented x3 Limitations: no limitations HENMT: Head: Yes normal to inspection Ears: hearing grossly normal bilaterally General nose exam: Normal external nose present Face and sinus: Yes normal facial exam Eyes: General: appearance normal, both eyes and all related structures EOM: EOMs intact bilaterally Neck: Neck: Yes normal visual inspection Resp: Effort & Inspection: normal respiratory effort and no respiratory distress Cardio: Rate: regular rate Peripheral pulses: dorsalis pedis present Skin: Rashes: no rashes Wounds: no wounds Neuro: General: patient oriented x3 Gait exam (Neuro): Normal gait present Extrem: Other: Amputation of left toes. Neurovascularly intact. Left knee normal to inspection, no overlying cellulitis. Diffusely tender to palpation. Decreased flexion secondary to pain. Extension intact. Course Course Course Narrative: -physical therapy evaluated patient in the ED and recommended [facility] > will have case management see patient XR knee LT 4V IMPRESSION: Mild degenerative disease of the left knee. Suprapatellar joint effusion. -UA negative -1225--case management evaluated patient, patient is not agreeable to go to [facility], states she has multiple VNA's at home and would like to continue home care. Discussed with patient she is always welcome to return to the ED if she changes her mind. Is to follow up with PCP/orthopedics MDM - Extremity (Nontraumatic) MDM Narrative Medical decision making narrative: 61-year-old female with a past medical history of anemia, anxiety, pacemaker, CHF, COPD, CAD, CVA, diabetes, gastritis, gastroparesis, GERD, hyperlipidemia, hypertension, IBS, osteoarthritis, renal failure, UTI, to the ED complaining of acute on chronic left knee pain since yesterday. On exam VSS, NAD/nontoxic-appearing, physical exam as above. Concern for acute on chronic knee pain/osteoarthritis. Low concern for fracture/dislocation without injury. Low concern for septic joint/arthritis. Plan: Symptomatic treatment, PT eval Lab Data Labs: Lab Results 08/09/21 Range/Units 11:50 Urine Color YELLOW Urine Appearance CLEAR Urine pH 5.5 (5.0-8.0) Ur Specific [place] 1.025 (1.005-1.025) Urine Protein 2+ H (NEG-TRACE) MG/DL Urine Glucose (UA) 250 H (NEG) MG/DL Urine Ketones NEG (NEG) MG/DL Urine Blood NEG (NEG) Urine Nitrite NEG (NEG) Ur Leukocyte Esterase NEG (NEG) Urine RBC 0-2 (0) /HPF Urine WBC 0-2 (0-4) /HPF Ur Squamous Epith Cells 2+ /LPF Urine Bacteria NONE /LPF Discharge Plan Discharge Clinical Impression: Chronic knee pain Patient Disposition: Home, Self-Care Instructions: Arthralgia (ED) Additional Instructions: Continue to take Tylenol at home, for pain In addition diclofenac is an anti-inflammatory/pain gel which will help with pain and inflammation apply to knee Please follow-up with your doctor and Orthopedics If your pain persists or worsens, becomes unbearable, your unable to ambulate please return to the ED Prescriptions: New diclofenac sodium 1 % gel 2 g topical QID Qty: 100 RF: 0 acetaminophen [Tylenol Extra Strength] 500 mg tablet 500 mg PO Q6H PRN (Reason: pain or fever) Qty: 20 RF: 0 No Action furosemide 40 mg tablet 40 mg PO DAILY Qty: 90 RF: 3 lorazepam 0.5 mg Tablet 0.5 mg PO BID PRN (Reason: Anxiety) RF: 0 atorvastatin 40 mg Tablet 40 mg PO BEDTIME RF: 0 metoprolol succinate [Toprol XL] 50 mg Tablet Extended Release 24 Hr 50 mg PO DAILY RF: 0 allopurinol 100 mg Tablet 100 mg PO DAILY RF: 0 albuterol sulfate 90 mcg/actuation Hfa Aerosol Inhaler 2 puff INHALATION Q6H PRN (Reason: Shortness Of Breath) RF: 0 Breo Ellipta 100-25 mcg/dose Blister With Device 1 inh INHALATION DAILY PRN (Reason: Shortness Of Breath) RF: 0 aspirin 81 mg Tablet,Delayed Release (Dr/Ec) 81 mg PO DAILY RF: 0 Hold Instructions: Resume on 01/13/21. ciprofloxacin HCl 500 mg tablet 500 mg PO BID 7 Days Qty: 14 RF: 0 tamsulosin 0.4 mg capsule 0.4 mg PO DAILY@1700 RF: 0 ferrous sulfate [iron] 325 mg (65 mg iron) Tablet 325 mg PO DAILY RF: 0 ergocalciferol (vitamin D2) 1,250 mcg (50,000 unit) capsule 1 cap PO SA@1000 RF: 0 amlodipine 5 mg tablet 5 mg PO DAILY RF: 0 insulin aspart U-100 [Novolog Flexpen U-100 Insulin] 100 unit/mL (3 mL) Insulin Pen 5 unit SUBCUT BIDAC RF: 0 loperamide 2 mg Tablet 2 mg PO QID PRN (Reason: Diarrhea) RF: 0 nitroglycerin 0.4 mg Tablet, Sublingual 0.4 mg SUBLINGUAL Q5M PRN (Reason: Chest Pain) RF: 0 melatonin 5 mg Tablet 5 mg PO BEDTIME PRN (Reason: Sleep) RF: 0 pantoprazole 20 mg tablet,delayed release (DR/EC) 1 tab PO DAILY RF: 0 gabapentin 100 mg capsule 200 mg PO TID RF: 0 acetaminophen 500 mg tablet 500 mg PO Q6H PRNRF: 0 metoclopramide HCl 5 mg tablet 5 mg PO QID RF: 0 (DME) pen needle, diabetic 31 gauge x 5/16 needle See Rx Instructions ea subcut .MEDSUPPLY Qty: 1200 RF: 0 cholecalciferol (vitamin D3) 25 mcg (1,000 unit) capsule 25 mcg PO DAILY RF: 0 Tresiba FlexTouch U-100 100 unit/mL (3 mL) insulin pen 12 unit subcut DAILY RF: 0 Referrals: Merna Bustillo PA-C [Physician Swimming Pool Servicer] - 5 days Christos Law MD [Physician] - 2 days
--- NOTE | 2021-08-09 10:21 | PC.NURSE ---
PT ASSISTED ONTO BEDPAN.
[2021-08-09 10:50] VITALS: RESP 18
[2021-08-09 11:33] VITALS: BMI 32.9
[2021-08-09 11:58] LABS: Appearance Urine CLEAR; Color Urine YELLOW; Glucose Urine UA 250 MG/DL (NEG); Leukocyte Esterase Urine NEG (NEG); Nitrite Urine NEG (NEG); PH 5.5 (5.0-8.0); Specific Gravity - Urine 1.025 (1.005-1.025); UACC Culture Trigger NO; Urine Blood NEG (NEG); Urine Ketones NEG (NEG); Urine Protein 2+ MG/DL (NEG-TRACE)
[2021-08-09 12:09] LABS: RBC Urine 0-2 /HPF (0); Squamous Epithelial Cell Urine 2+ /LPF; WBC Urine 0-2 /HPF (0-4)
[2021-08-09 12:42] VITALS: BP 150/70; PULSE 78; RESP 19; O2SAT 95
--- NOTE | 2021-08-09 12:43 | PC.NURSE ---
PT ASSISTED INTO WHEELCHAIR, PTS SENIOR PROCESS ENGINEER IS COMING TO PICK HER UP.
--- NOTE | 2021-08-09 14:14 | MHC.CM.ED ---
pt lives alone in apt. she uses a walker c ambulation, but admits to primarily staying in bed most of the day. she has two lidding machine operator's - one for overnights and one during the day. despite the recommendation of PT to go to [facility], pt would like to return home c home PT. she does not want to go to [facility]. she requested [facility] for home PT for which a ref. has been made. pt will have her lidding machine operator pick her up from the e.d. to return home. Liv in [facility] is aware of this dc plan. cm to cont to follow.
== END 2021-08-09 12:44 | disposition home or self-care (01) ==
PROVIDERS: Physician Assistant; Emergency Provider Emergency Medicine
DX: M25.562 Pain in left knee (principal); I25.10 Atherosclerotic heart disease of native coronary artery without angina pectoris; I10 Essential (primary) hypertension; Z86.73 Personal history of transient ischemic attack (TIA), and cerebral infarction without residual deficits; Z79.899 Other long term (current) drug therapy; F17.210 Nicotine dependence, cigarettes, uncomplicated; Z71.6 Tobacco abuse counseling
CPT/HCPCS: 73564; 81001; 97162; 99283; 99284

== ENCOUNTER → 2021-08-15 11:09 | Outpatient (BNVA) | payer OTHER, SELFPAY | PROVIDERS: Visit Provider Internal Medicine | DX: M25.562 Pain in left knee (principal) | CPT/HCPCS: 99212 ==

== ENCOUNTER 2021-08-20 11:22 | Emergency (ER) | payer OTHER, SELFPAY ==
[2021-08-20] VITALS (10 sets, daily range): BP systolic 119–189; BP diastolic 56–85; PULSE 72–84; RESP 12–18; TEMP 36.3–36.9; O2SAT 94–99; BMI 31.4
--- NOTE | ~2021-08-20 | CT_ITS ---
EXAMINATION: CT ABDOMEN AND PELVIS WITHOUT CONTRAST CLINICAL INFORMATION: Epigastric pain. Nausea and vomiting. COMPARISON: Previous CT of the abdomen and pelvis most recent December 2020 renal ultrasound May TECHNIQUE: Multidetector volumetric imaging was performed from the superior aspect of the liver through the pubic symphysis. Sagittal and coronal reformatted images were obtained on the technologist's workstation. This CT examination was performed using dose optimization techniques as appropriate, variously including the following: *Automated exposure control *Adjustment of mA and/or kV according to patient size (this includes techniques or standardized protocols for targeted exams where dose is matched to indication/reason for exam; i.e. extremities or head) *Use of iterative reconstruction technique DLP: 672 mGy-cm FINDINGS: LUNG BASES: The visualized lung bases are clear. There is a pacemaker. LIVER, GALLBLADDER, AND BILIARY TREE: The liver is normal in size, shape, and attenuation. No focal hepatic lesion or biliary ductal dilatation is present. The gallbladder has been removed. PANCREAS: Unremarkable. SPLEEN: Unremarkable. ADRENAL GLANDS: Unremarkable. KIDNEYS AND URETERS: The kidneys are normal in size, shape, and attenuation. No hydronephrosis, hydroureter, or calculi seen. No perinephric stranding. BLADDER: There may be mild diffuse bladder wall thickening. GASTROINTESTINAL TRACT: The small and large bowel are unremarkable. The appendix is unremarkable. ABDOMINAL WALL: There are umbilical and periumbilical hernias containing fat. LYMPH NODES: Normal. VASCULAR: There is evidence of atherosclerotic disease. No aneurysm is seen.. PELVIC VISCERA: The uterus appears to have been removed. No pelvic mass is seen. OSSEOUS STRUCTURES: There are mild degenerative changes of the spine. There is a right sacral stimulator in the right S3 neuroforamen with tip projecting just anterior to the right piriformis muscle. CT/CT abdomen pelvis wo con IMPRESSION: Question mild diffuse bladder wall thickening. Small umbilical and periumbilical hernias containing fat.
--- NOTE | 2021-08-20 13:49 | ED.NAVMDI ---
HPI - Nausea/Vomiting/Diarrhea General Chief complaint: Nausea/Vomiting/Diarrhea Stated complaint: N/V SINCE 2AM Time Seen by Provider: 08/20/21 13:48 History of Present Illness HPI Narrative: [age] female has history of COPD, CAD, diabetes, hypertension presents to the emergency department with nausea/vomiting and abdominal pain since 2:00 a.m.. She states that she woke from her sleep due to nausea. She states she has had about 7 episodes of vomiting. She states she was initially puking up if that she yesterday, but the last the tightness he puked it was just bile. She denies blood in her vomit. She also reports a 7/10 epigastric pain, nonradiating. Her last meal was last night where she had macaroni and cheese burger. She has had an appendectomy, cholecystectomy. She denies alcohol use smoking and drugs. She denies chest pain, shortness of breath, changes in bowel habits, fevers, chills, diarrhea. MD elicited complaint: nausea and vomiting Pertinent past history: abdominal surgery Onset (ago): hour(s) (12) Description of vomiting: food contents and bilious Associated nausea: Yes Associated abdominal pain: Yes Location of pain: epigastric Pain consistency: constant Severity: severe Pain scale (0-10): 7 Quality: constant Exacerbating factors: none Relieving factors: none Associated symptoms: nausea/vomiting Related Data Home Medications Medication Instructions Recorded Confirmed lorazepam 0.5 mg tablet 0.5 mg PO BID PRN 09/14/20 06/18/21 albuterol sulfate 90 mcg/actuation 2 puff INHALATION Q6H PRN 09/16/20 06/18/21 aerosol inhaler allopurinol 100 mg tablet 100 mg PO DAILY 09/16/20 06/18/21 aspirin 81 mg tablet,delayed 81 mg PO DAILY 09/16/20 06/18/21 release atorvastatin 40 mg tablet 40 mg PO BEDTIME 09/16/20 06/18/21 fluticasone furoate 100 1 inh INHALATION DAILY PRN 09/16/20 06/18/21 mcg-vilanterol 25 mcg/dose inhalation powder (Breo Ellipta) metoprolol succinate 50 mg 50 mg PO DAILY 09/16/20 06/18/21 tablet,extended release 24 hr (Toprol XL) insulin degludec 100 unit/mL (3 12 unit SUBCUT DAILY ml 11/13/20 06/18/21 mL) subcutaneous pen (Tresiba FlexTouch U-100 insulin) amlodipine 5 mg tablet 5 mg PO DAILY 12/22/20 06/18/21 ergocalciferol (vitamin D2) 1,250 1 cap PO SA@1000 12/22/20 06/18/21 mcg (50,000 unit) capsule ferrous sulfate 325 mg (65 mg 325 mg PO DAILY 12/22/20 06/18/21 iron) tablet (iron) tamsulosin 0.4 mg capsule 0.4 mg PO DAILY@1700 12/22/20 06/18/21 insulin aspart U-100 100 unit/mL 5 unit SUBCUT BIDAC 01/08/21 06/18/21 (3 mL) subcutaneous pen (Novolog Flexpen U-100 Insulin aspart) loperamide 2 mg tablet 2 mg PO QID PRN 01/08/21 06/18/21 melatonin 5 mg tablet 5 mg PO BEDTIME PRN 01/08/21 06/18/21 nitroglycerin 0.4 mg sublingual 0.4 mg SUBLINGUAL Q5M PRN 01/08/21 06/18/21 tablet gabapentin 100 mg capsule 200 mg PO TID 03/06/21 06/18/21 pantoprazole 20 mg tablet,delayed 1 tab PO DAILY 03/06/21 06/18/21 release acetaminophen 500 mg tablet 500 mg PO Q6H PRN 03/20/21 06/18/21 cholecalciferol (vitamin D3) 25 25 mcg PO DAILY 03/20/21 06/18/21 mcg (1,000 unit) capsule metoclopramide HCl 5 mg tablet 5 mg PO QID 03/20/21 06/18/21 pen needle, diabetic 31 gauge x #1200 ea 03/20/21 06/18/2104/06 Previous Rx's Medication Instructions Recorded furosemide 40 mg tablet 40 mg PO DAILY #90 tab 12/06/20 ciprofloxacin HCl 500 mg tablet 500 mg PO BID 7 Days #14 tab 06/08/21 acetaminophen 500 mg tablet 500 mg PO Q6H PRN #20 tab 08/09/21 (Tylenol Extra Strength) diclofenac sodium 1 % topical gel 2 g TOPICAL QID #100 g 08/09/21 lidocaine 4 % topical patch 1 patch TOPICAL DAILY PRN #30 ea 08/15/21 ondansetron 4 mg disintegrating 4 mg PO Q6-8H PRN #14 tab 08/20/21 tablet Allergies Allergy/AdvReac Type Severity Reaction Status Date / Time tetracycline [Tetracycline] Allergy Mild HIVES, Verified 08/15/21 11:49 anaphylaxis, anaphylaxis Review of Systems Review of Systems: Yes all other systems are reviewed and are negative Gastrointestinal: Gastrointestinal: Reports nausea PMFSH Past Medical History Medical History (Updated 08/20/21 @ 16:57 by Pedro Mojica MD) Acute heart failure with preserved ejection fraction Anemia Anxiety Arthritis Cardiac pacemaker in situ Carpal tunnel syndrome CHF (congestive heart failure) Chronic heart failure with preserved ejection fraction (HFpEF) COPD exacerbation Coronary artery disease CVA (cerebral vascular accident) Diabetes Fall Gastritis Gastroparesis Gastroparesis GERD (gastroesophageal reflux disease) Headache HLD (hyperlipidemia) HTN (hypertension) HTN (hypertension) Hypocalcemia Hypoxia IBS (irritable bowel syndrome) Knee pain, left Myocardial infarct Nausea and vomiting Orthostasis Renal failure Suprapatellar effusion of knee T2DM (type 2 diabetes mellitus) UTI (urinary tract infection) Surgical History H/O Achilles tendon repair History of appendectomy History of bladder surgery History of carpal tunnel release History of total hysterectomy with bilateral salpingo-oophorectomy (BSO) Hx of amputation Hx of CABG (~2019) Hx of cholecystectomy Hx of endoscopy Hx of knee surgery Hx of tonsillectomy Family History Family History Father No problems noted. Mother Diabetes Hypercholesteremia Hypertension Stroke Social History Social History Household Members: Family Household Members Other:: 1 Housing: Apartment Do you presently have visiting nurse or other home services: Yes (grid [employer], [facility]) Alcohol intake: never Patient Tobacco Use Status: Never used Tobacco Years Smoked: 20 Second Hand Smoke Exposure: No Use of substances other than those prescribed or required for medical reasons: No Advance Directives: No Advance Directives Information Provided: No Patient : No service: No Current occupational status: disabled Physical Exam Vital Signs: Vital Signs: Last Vital Signs Temp 98.0 F 08/20/21 15:57 Pulse 80 08/20/21 16:21 Resp 18 08/20/21 16:21 BP 160/68 H 08/20/21 16:21 Pulse Ox 96 08/20/21 16:21 Body Mass Index 31.4 Const: General: cooperative and no acute distress Orientation/consciousness: oriented to person and oriented to place Limitations: no limitations HENMT: Head: Yes normal to inspection, Yes normocephalic and Yes atraumatic Ears: external ears normal General nose exam: Normal external nose present Face and sinus: Yes normal facial exam Mouth: Normal oral and palatal mucosa present Throat: Yes posterior oropharynx normal Eyes: General: appearance normal, both eyes and all related structures Pupils: Equal, round and reactive pupils present Neck: Neck: Yes normal visual inspection, Yes no lymphadenopathy, Yes trachea midline and Yes supple Chest: Chest palpation & inspection: normal inspection of the chest and normal palpation of entire chest wall Resp: Effort & Inspection: normal respiratory effort and able to speak in complete sentences Auscultation: clear to auscultation bilaterally Cardio: Rate: regular rate Rhythm: regular rhythm Heart sounds: S1 normal heart sound present, S2 normal heart sound present and no murmurs GI: Inspection: Yes normal to inspection Palpation (GI): Soft to palpation, Tenderness to palpation present (GI) in the epigastrum and no guarding Auscultation: normal bowel sounds : General: Yes no CVA tenderness Back/Spine/Pelvis: Back: no CVA tenderness Skin: General skin exam: no rashes or lesions noted Neuro: General: oriented to person and oriented to place Cranial nerves: Yes CN's II-XII intact bilaterally and Yes Equal, round and reactive pupils present Cognition (Neuro): normal cognition Motor exam (neuro): 5/5 motor strength present throughout Extrem: General: Yes normal to inspection Psych: Appearance: grossly normal Speech and movement: Normal speech and movement present Affect: normal affect Attitude: cooperative Thought process: Normal thought process present Thought content: Normal thought content present Course Course Course Narrative: Upon Re-evaluation of the patient patient states she is still having 7/10 epigastric pain, despite administration of morphine. A GI cocktail has been ordered. She has been educated on her CT results, and lab results. Will give sign-out to Dr. Dominguez [facility] - Nausea/Vomiting/Diarrhea [facility] Narrative Medical decision making narrative: 61-year-old female pmhx of COPD, hypertension, DM, CAD presents to the emergency department with complains of nausea, vomiting and abdominal pain since 2:00 a.m.. She states that the nausea woke her from her sleep. She has had 7 episodes of vomiting, she states it started as vomiting her food, that her most recent episodes of been vomiting bile. She states for dinner she had macaroni with cheeseburger. Past surgical history is include cholecystectomy and appendectomy. She denies fevers, chills, CP and SOB Plan- CBC CMP lipase COVID EKG UA, CT of the abdomen pelvis with contrast. She will be hydrated, and given Zofran for the nausea. Lab Data Result diagrams: 08/20/21 14:43 08/20/21 14:43 Labs: Lab Results 08/20/21 08/20/21 08/20/21 Range/Units 14:43 14:43 14:43 WBC 8.9 (4.8-10.8) X10*3/uL RBC 3.59 L (4.20-5.50) X10*6/uL Hgb 11.0 L (12.0-16.0) g/dl Hct 33.9 L (37-47) % MCV 94.4 (80-98) fL MCH 30.6 (27.0-33.0) pg MCHC 32.4 (31.0-35.0) g/dl RDW 13.9 (11.0-16.0) % Plt Count 238 (160-400) X10*3/uL MPV 10.1 (9.4-12.3) fL Immature Gran % (Auto) 0.7 H (0.0-0.4) % Neut % (Auto) 73.4 H (45-73) % Lymph % (Auto) 17.7 L (20-40) % Dickenson % (Auto) 5.8 (2-11) % Eos % (Auto) 2.2 (0-4) % Baso % (Auto) 0.2 (0-2) % Lymph # (Auto) 1.6 (1.2-4.9) X10*3/uL Dickenson # (Auto) 0.5 (0.1-1.2) X10*3/uL Eos # (Auto) 0.2 (0.0-0.4) X10*3/uL Baso # (Auto) 0.0 (0.0-0.2) X10*3/uL Abs Immat Gran (auto) 0.06 H (0.00-0.03) X10*3/uL Absolute Neuts (auto) 6.5 (2.0-8.3) X10*3/uL Absolute Nucleated RBC 0.000 (0.0-0.012) X10*3/uL Nucleated RBC % (auto) 0.0 (0.0-0.2) /100WBC Sodium 140 (135-145) mmol/L Potassium 5.4 H D (3.3-5.1) mmol/L Chloride 103 (96-108) mmol/L Carbon Dioxide 28 (22-29) mmol/L Anion Gap 14 (12-20) BUN 55 H D (9-16) mg/dL Creatinine 1.86 H (0.5-1.4) mg/dL Estim Creat Clear Calc 29.9 Estimated GFR 27 Random Glucose 198 H (60-115) mg/dL Calcium 9.1 (8.4-10.2) mg/dL Total Bilirubin 0.6 (0.0-1.0) mg/dL AST 22 (5-31) U/L ALT 28 (0-31) U/L Alkaline Phosphatase 109 (39-117) U/L Total Protein 7.6 (6.5-8.0) g/dL Albumin 3.9 (3.5-5.0) g/dL Lipase 13 (8-78) U/L COVID-19 (KENJI) Negative (Negative) COVID-19 Clin Com See Note ECG Data Attestation: I personally reviewed and interpreted this ECG as follows: ECG interpretation date: 08/20/21 ECG interpretation time: 14:44 Interpretation: Paste Eve rhythm at a rate approximately 70 beats per minute, no ST elevations or inversions, no acute ischemia. Discharge Plan Discharge Clinical Impression: GERD (gastroesophageal reflux disease), Gastritis, Nausea & vomiting Patient Disposition: Home, Self-Care Instructions: Gastritis (ED), Gastroesophageal Reflux Disease (ED) Additional Instructions: Continue taking the Protonix he of at home, this will help this epigastric abdominal pain. Your laboratory studies show no signs of acute infection. Your urine shows no infection. You tested negative for COVID-19 You will be prescribed Zofran you can take his as needed every 6-8 hours for nausea/vomiting. Follow-up with your primary care provider in 2 days Return to the emergency department with new or worsening symptoms Prescriptions: New ondansetron 4 mg tablet,disintegrating 4 mg PO Q6-8H PRN (Reason: nausea and vomiting) Qty: 14 RF: 0 No Action furosemide 40 mg tablet 40 mg PO DAILY Qty: 90 RF: 3 lorazepam 0.5 mg Tablet 0.5 mg PO BID PRN (Reason: Anxiety) RF: 0 atorvastatin 40 mg Tablet 40 mg PO BEDTIME RF: 0 metoprolol succinate [Toprol XL] 50 mg Tablet Extended Release 24 Hr 50 mg PO DAILY RF: 0 allopurinol 100 mg Tablet 100 mg PO DAILY RF: 0 albuterol sulfate 90 mcg/actuation Hfa Aerosol Inhaler 2 puff INHALATION Q6H PRN (Reason: Shortness Of Breath) RF: 0 Breo Ellipta 100-25 mcg/dose Blister With Device 1 inh INHALATION DAILY PRN (Reason: Shortness Of Breath) RF: 0 aspirin 81 mg Tablet,Delayed Release (Dr/Ec) 81 mg PO DAILY RF: 0 Hold Instructions: Resume on 01/13/21. ciprofloxacin HCl 500 mg tablet 500 mg PO BID 7 Days Qty: 14 RF: 0 tamsulosin 0.4 mg capsule 0.4 mg PO DAILY@1700 RF: 0 ferrous sulfate [iron] 325 mg (65 mg iron) Tablet 325 mg PO DAILY RF: 0 ergocalciferol (vitamin D2) 1,250 mcg (50,000 unit) capsule 1 cap PO SA@1000 RF: 0 amlodipine 5 mg tablet 5 mg PO DAILY RF: 0 insulin aspart U-100 [Novolog Flexpen U-100 Insulin] 100 unit/mL (3 mL) Insulin Pen 5 unit SUBCUT BIDAC RF: 0 loperamide 2 mg Tablet 2 mg PO QID PRN (Reason: Diarrhea) RF: 0 nitroglycerin 0.4 mg Tablet, Sublingual 0.4 mg SUBLINGUAL Q5M PRN (Reason: Chest Pain) RF: 0 melatonin 5 mg Tablet 5 mg PO BEDTIME PRN (Reason: Sleep) RF: 0 pantoprazole 20 mg tablet,delayed release (DR/EC) 1 tab PO DAILY RF: 0 gabapentin 100 mg capsule 200 mg PO TID RF: 0 diclofenac sodium 1 % gel 2 g topical QID Qty: 100 RF: 0 acetaminophen [Tylenol Extra Strength] 500 mg tablet 500 mg PO Q6H PRN (Reason: pain or fever) Qty: 20 RF: 0 acetaminophen 500 mg tablet 500 mg PO Q6H PRNRF: 0 metoclopramide HCl 5 mg tablet 5 mg PO QID RF: 0 (DME) pen needle, diabetic 31 gauge x 5/16 needle See Rx Instructions ea subcut .MEDSUPPLY Qty: 1200 RF: 0 cholecalciferol (vitamin D3) 25 mcg (1,000 unit) capsule 25 mcg PO DAILY RF: 0 Tresiba FlexTouch U-100 100 unit/mL (3 mL) insulin pen 12 unit subcut DAILY RF: 0 lidocaine 4 % adhesive patch,medicated 1 patch topical DAILY PRN (Reason: pain) Qty: 30 RF: 0
--- NOTE | 2021-08-20 13:50 | ECG_ITS ---
Test Reason : NAUSEA/VOMIT Blood Pressure : / mmHG Vent. Rate : 073 BPM Atrial Rate : 073 BPM P-R Int : 220 ms QRS Dur : 120 ms QT Int : 460 ms P-R-T Axes : 077 102 266 degrees QTc Int : 506 ms Atrial-sensed ventricular-paced rhythm with prolonged AV conduction Abnormal ECG When compared with ECG of 09-JUL-2021 11:54, No significant change was found Referred By: Pedro Mojica Electronically Signed By:GLORIA PRUETT
[2021-08-20] MEDS: 0.9 % Sodium Chloride 1,000 ML 999 ML IV (14:32)
[2021-08-20] MEDS: ondansetron HCL 4 MG/2 ML VIAL IVPUSH (14:34)
[2021-08-20 14:47] LABS: MANUAL DIFF FLAG NO
[2021-08-20 14:49] LABS: Basophils Percent Auto 0.2 % (0-2); Eosinophils Absolute Auto 0.2 X10*3/uL (0.0-0.4); Eosinophils Percent Auto 2.2 % (0-4); Hematocrit 33.9 % (37-47); Imm Gran Abs Auto 0.06 X10*3/uL (0.00-0.03); Imm Gran Pct Auto 0.7 % (0.0-0.4); Lymphocytes Absolute Auto 1.6 X10*3/uL (1.2-4.9); Lymphocytes Percent Auto 17.7 % (20-40); Mean Corpuscular HGB Conc 32.4 g/dl (31.0-35.0); Mean Corpuscular Hemoglobin 30.6 pg (27.0-33.0); Mean Corpuscular Volume 94.4 fL (80-98); Mean Platelet Volume 10.1 fL (9.4-12.3); Monocytes Absolute Auto 0.5 X10*3/uL (0.1-1.2); Monocytes Percent Auto 5.8 % (2-11); Neutrophils Absolute Auto 6.5 X10*3/uL (2.0-8.3); Neutrophils Percent Auto 73.4 % (45-73); Platelet Count 238 X10*3/uL (160-400); Red Blood Count 3.59 X10*6/uL (4.20-5.50); Red Cell Distribution Width 13.9 % (11.0-16.0); White Blood Count 8.9 X10*3/uL (4.8-10.8)
[2021-08-20 15:04] LABS: COVID-19 Test Negative (Negative)
[2021-08-20 15:21] LABS: Alanine Aminotransferase 28 U/L (0-31); Albumin Level 3.9 g/dL (3.5-5.0); Alkaline Phosphatase 109 U/L (39-117); Anion Gap 14 (12-20); Aspartate Amino Transferase 22 U/L (5-31); Bilirubin Total 0.6 mg/dL (0.0-1.0); Blood Urea Nitrogen 55 mg/dL (9-16); Calcium 9.1 mg/dL (8.4-10.2); Carbon Dioxide 28 mmol/L (22-29); Chloride 103 mmol/L (96-108); Creatinine Clr Calc Pharmacy 29.9; Estimated Glomerular Filt Rate 27; Glucose Random 198 mg/dL (60-115); Lipase 13 U/L (8-78); Potassium 5.4 mmol/L (3.3-5.1); Sodium 140 mmol/L (135-145); Total Protein 7.6 g/dL (6.5-8.0)
--- NOTE | 2021-08-20 15:31 | PC.NURSE ---
pt stood and pivoted t wheelchair for toileting.
[2021-08-20] MEDS: Morphine Sulfate 4 MG/ML CARTRIDGE IVPUSH (16:20)
[2021-08-20] MEDS: Metoclopramide HCl 10 MG/2 ML VIAL IVPUSH (17:09)
[2021-08-20] MEDS: Prochlorperazine Edisylate 10 MG/2 ML VIAL IVPUSH (17:54)
--- NOTE | 2021-08-20 19:13 | PC.NURSE ---
PATIENT WAS ASSISTED TO BED SIDE COMMODE BY THIS PCT .
[2021-08-20 19:40] LABS: Appearance Urine CLEAR; Color Urine STRAW; Glucose Urine UA 100 MG/DL (NEG); Leukocyte Esterase Urine NEG (NEG); Nitrite Urine NEG (NEG); PH 6.5 (5.0-8.0); Specific Gravity - Urine 1.015 (1.005-1.025); UACC Culture Trigger NO; Urine Blood NEG (NEG); Urine Ketones NEG (NEG); Urine Protein 2+ MG/DL (NEG-TRACE)
[2021-08-20 19:55] LABS: RBC Urine 0-2 /HPF (0); Squamous Epithelial Cell Urine 1+ /LPF; WBC Urine 0 /HPF (0-4)
--- NOTE | 2021-08-20 20:47 | PC.NURSE ---
MD AWARE PT PASSED PO CHALLENGE. PT KEEPING DAVID JEFF AND CRACKERS DOWN AND AWAITING FOR DISCHARGE PAPERWORK.
--- NOTE | 2021-08-20 22:11 | PC.NURSE ---
PATIENT WAS ASSISTED TO BED SIDE COMMODE BY THIS PCT .
== END 2021-08-20 22:15 | disposition home or self-care (01) ==
PROVIDERS: Emergency Provider Emergency Medicine Emergency Medical Services
DX: K21.9 Gastro-esophageal reflux disease without esophagitis (principal); K29.00 Acute gastritis without bleeding; R11.2 Nausea with vomiting, unspecified; R19.7 Diarrhea, unspecified; I25.10 Atherosclerotic heart disease of native coronary artery without angina pectoris; F17.210 Nicotine dependence, cigarettes, uncomplicated; Z20.822 Contact with and (suspected) exposure to COVID-19; Z71.6 Tobacco abuse counseling; Z79.899 Other long term (current) drug therapy
CPT/HCPCS: 36415; 74176; 80053; 81001; 83690; 85025; 87635; 93005; 96361; 96374; 96375; 99284; 99285; J2270; J2405; J2765

== ENCOUNTER 2021-09-24 05:40 | Outpatient (REF) | payer OTHER, SELFPAY | END 2021-09-24 05:41 | disposition home or self-care (01) | LOC: HO.RADIR 05:40 | PROVIDERS: Visit Provider Internal Medicine | DX: Z13.89 Encounter for screening for other disorder (principal) ==

== ENCOUNTER 2021-09-27 23:44 | Emergency (ER) | payer OTHER, SELFPAY ==
--- NOTE | 2021-09-27 23:54 | ECG_ITS ---
Test Reason : FALL Blood Pressure : / mmHG Vent. Rate : 109 BPM Atrial Rate : 109 BPM P-R Int : 236 ms QRS Dur : 110 ms QT Int : 328 ms P-R-T Axes : 089 100 244 degrees QTc Int : 441 ms Atrial-sensed ventricular-paced rhythm with prolonged AV conduction ST depression in Inferior leads Lateral leads Abnormal ECG When compared with ECG of 20-AUG-2021 14:35, Vent. rate has increased BY [address] more depressed Inferior leads Lateral leads Referred By: Jero Us Electronically Signed By:HARITHA BRAVO MD
--- NOTE | 2021-09-27 23:54 | ED.FALL ---
HPI - Fall General Chief Complaint: Fall Stated Complaint: fall Time Seen by Provider: 09/27/21 23:53 Source: patient and EMS Mode of arrival: EMS Limitations: no limitations History of Present Illness HPI Narrative: 61 years old female with history of chronic anemia, anxiety, CKD, CHF, COPD, CAD status post CABG and pacemaker, diabetes, gastroparesis diabetes mellitus walks with a walker tonight prior to arrival she got up wanted to go to bathroom felt weak and legs gave out fell forward on her knees and then slumped backwards no loss of consciousness no nausea vomiting no chest pain no palpitation no dizziness prior to this. No significant injuries noticed patient had similar complaints in the past for been admitted several times for weakness and falls. Patient is not on any anti coagulant patient has been here multiple times for similar complaints of weakness and body aches asking for Dilaudid for pain. No urinary complaints no fever chills no cough patient been vaccinated against COVID-19 Related Data Home Medications Medication Instructions Recorded Confirmed lorazepam 0.5 mg tablet 0.5 mg PO BID PRN 09/14/20 06/18/21 albuterol sulfate 90 mcg/actuation 2 puff INHALATION Q6H PRN 09/16/20 06/18/21 aerosol inhaler allopurinol 100 mg tablet 100 mg PO DAILY 09/16/20 06/18/21 aspirin 81 mg tablet,delayed 81 mg PO DAILY 09/16/20 06/18/21 release atorvastatin 40 mg tablet 40 mg PO BEDTIME 09/16/20 06/18/21 fluticasone furoate 100 1 inh INHALATION DAILY PRN 09/16/20 06/18/21 mcg-vilanterol 25 mcg/dose inhalation powder (Breo Ellipta) metoprolol succinate 50 mg 50 mg PO DAILY 09/16/20 06/18/21 tablet,extended release 24 hr (Toprol XL) insulin degludec 100 unit/mL (3 12 unit SUBCUT DAILY ml 11/13/20 06/18/21 mL) subcutaneous pen (Tresiba FlexTouch U-100 insulin) amlodipine 5 mg tablet 5 mg PO DAILY 12/22/20 06/18/21 ergocalciferol (vitamin D2) 1,250 1 cap PO SA@1000 12/22/20 06/18/21 mcg (50,000 unit) capsule ferrous sulfate 325 mg (65 mg 325 mg PO DAILY 12/22/20 06/18/21 iron) tablet (iron) tamsulosin 0.4 mg capsule 0.4 mg PO DAILY@1700 12/22/20 06/18/21 insulin aspart U-100 100 unit/mL 5 unit SUBCUT BIDAC 01/08/21 06/18/21 (3 mL) subcutaneous pen (Novolog Flexpen U-100 Insulin aspart) loperamide 2 mg tablet 2 mg PO QID PRN 01/08/21 06/18/21 melatonin 5 mg tablet 5 mg PO BEDTIME PRN 01/08/21 06/18/21 nitroglycerin 0.4 mg sublingual 0.4 mg SUBLINGUAL Q5M PRN 01/08/21 06/18/21 tablet gabapentin 100 mg capsule 200 mg PO TID 03/06/21 06/18/21 pantoprazole 20 mg tablet,delayed 1 tab PO DAILY 03/06/21 06/18/21 release acetaminophen 500 mg tablet 500 mg PO Q6H PRN 03/20/21 06/18/21 cholecalciferol (vitamin D3) 25 25 mcg PO DAILY 03/20/21 06/18/21 mcg (1,000 unit) capsule metoclopramide HCl 5 mg tablet 5 mg PO QID 03/20/21 06/18/21 pen needle, diabetic 31 gauge x #1200 ea 03/20/21 06/18/2104/06 Previous Rx's Medication Instructions Recorded furosemide 40 mg tablet 40 mg PO DAILY #90 tab 12/06/20 ciprofloxacin HCl 500 mg tablet 500 mg PO BID 7 Days #14 tab 06/08/21 acetaminophen 500 mg tablet 500 mg PO Q6H PRN #20 tab 08/09/21 (Tylenol Extra Strength) diclofenac sodium 1 % topical gel 2 g TOPICAL QID #100 g 08/09/21 lidocaine 4 % topical patch 1 patch TOPICAL DAILY PRN #30 ea 08/15/21 ondansetron 4 mg disintegrating 4 mg PO Q6-8H PRN #14 tab 08/20/21 tablet Allergies Allergy/AdvReac Type Severity Reaction Status Date / Time tetracycline [Tetracycline] Allergy Mild HIVES, Verified 08/15/21 11:49 anaphylaxis, anaphylaxis Review of Systems Review of Systems: Yes all other systems are reviewed and are negative PMFSH Past Medical History Medical History (Reviewed 09/28/21 @ 01:27 EDT by Jero Us MD) Acute heart failure with preserved ejection fraction Anemia Anxiety Arthritis Cardiac pacemaker in situ Carpal tunnel syndrome CHF (congestive heart failure) Chronic heart failure with preserved ejection fraction (HFpEF) COPD exacerbation Coronary artery disease CVA (cerebral vascular accident) Diabetes Fall Gastritis Gastroparesis Gastroparesis GERD (gastroesophageal reflux disease) Headache HLD (hyperlipidemia) HTN (hypertension) HTN (hypertension) Hypocalcemia Hypoxia IBS (irritable bowel syndrome) Knee pain, left Myocardial infarct Nausea and vomiting Orthostasis Renal failure Suprapatellar effusion of knee T2DM (type 2 diabetes mellitus) UTI (urinary tract infection) Surgical History (Reviewed 09/28/21 @ 01:27 EDT by Jero Us MD) H/O Achilles tendon repair History of appendectomy History of bladder surgery History of carpal tunnel release History of total hysterectomy with bilateral salpingo-oophorectomy (BSO) Hx of amputation Hx of CABG (~2019) Hx of cholecystectomy Hx of endoscopy Hx of knee surgery Hx of tonsillectomy Family History Family History (Reviewed 09/28/21 @ 01:27 EDT by Jero Us MD) Father No problems noted. Mother Diabetes Hypercholesteremia Hypertension Stroke Social History Social History (Reviewed 09/28/21 @ 01:27 EDT by Jero Us MD) Household Members: Family Household Members Other:: 1 Housing: Apartment Do you presently have visiting nurse or other home services: Yes (biomedical manager, vna) Alcohol intake: never Patient Tobacco Use Status: Never used Tobacco Years Smoked: 20 Second Hand Smoke Exposure: No Advance Directives: No Advance Directives Information Provided: No service: No Current occupational status: disabled Physical Exam Vital Signs: Vital Signs: Last Vital Signs Temp 99.2 F 09/28/21 00:03 Pulse 110 H 09/28/21 00:03 Resp 18 09/28/21 00:03 BP 142/86 H 09/28/21 00:03 Pulse Ox 98 09/28/21 00:03 Body Mass Index 37.8 Appearance: Alert. Oriented X3. No acute distress. Eyes: PERRLA, No Nystagmus ENT: Pharynx normal. Oral Mucosa moist, atraumatic normocephalic Neck: Normal inspection. Neck supple. No midline tenderness CVS: Normal heart rate and rhythm. Pulses normal. Respiratory: No respiratory distress. Equal air entry bilateral, no wheezing/rales/rhonchi Abdomen: Soft and nontender. Bowel sounds are present, no mass palpable, no CVA tenderness Skin: Skin warm and dry. Normal skin color. Normal skin turgor. Extremities: No lower extremity edema. No calf tenderness Neuro: Oriented X 3. No motor deficit. No sensory deficit.No cerebellar signs , cranial nerves II-XII intact MDM - Fall MDM Narrative Medical decision making narrative: Patient with multiple comorbid conditions complaint of increased weakness as in the past legs giving out making her fall no significant injury at this time UA is negative patient ambulated in the ER to the commode without any significant pain will discharge patient home Lab Data Attestation: I reviewed the patient's lab results. Labs: Lab Results 09/27/21 09/28/21 Range/Units 23:57 01:14 EST POC Glucose 279 H (60-115) mg/dL Urine Color YELLOW Urine Appearance CLEAR Urine pH 6.0 (5.0-8.0) Ur Specific [place] 1.025 (1.005-1.025) Urine Protein 2+ H (NEG-TRACE) MG/DL Urine Glucose (UA) >=1000 H (NEG) MG/DL Urine Ketones NEG (NEG) MG/DL Urine Blood TRACE (NEG) Urine Nitrite NEG (NEG) Ur Leukocyte Esterase NEG (NEG) ECG Data Attestation: I personally reviewed and interpreted this ECG as follows: Interpretation: Atrial sensed ventricular paced rhythm heart rate 109 beats per minute no acute ST T wave changes no acute ischemia Discharge Plan Discharge Clinical Impression: Weakness Fall Qualifiers: Encounter type: initial encounter Qualified Code(s): W19.XXXA - Unspecified fall, initial encounter Patient Disposition: Home, Self-Care Instructions: Weakness (ED), Fall Prevention (ED) Additional Instructions: Continue your prescribed medications use walker for ambulation follow with PCP for further management Prescriptions: No Action furosemide 40 mg tablet 40 mg PO DAILY Qty: 90 RF: 3 lorazepam 0.5 mg Tablet 0.5 mg PO BID PRN (Reason: Anxiety) RF: 0 atorvastatin 40 mg Tablet 40 mg PO BEDTIME RF: 0 metoprolol succinate [Toprol XL] 50 mg Tablet Extended Release 24 Hr 50 mg PO DAILY RF: 0 allopurinol 100 mg Tablet 100 mg PO DAILY RF: 0 albuterol sulfate 90 mcg/actuation Hfa Aerosol Inhaler 2 puff INHALATION Q6H PRN (Reason: Shortness Of Breath) RF: 0 Breo Ellipta 100-25 mcg/dose Blister With Device 1 inh INHALATION DAILY PRN (Reason: Shortness Of Breath) RF: 0 aspirin 81 mg Tablet,Delayed Release (Dr/Ec) 81 mg PO DAILY RF: 0 Hold Instructions: Resume on 01/13/21. ciprofloxacin HCl 500 mg tablet 500 mg PO BID 7 Days Qty: 14 RF: 0 tamsulosin 0.4 mg capsule 0.4 mg PO DAILY@1700 RF: 0 ferrous sulfate [iron] 325 mg (65 mg iron) Tablet 325 mg PO DAILY RF: 0 ergocalciferol (vitamin D2) 1,250 mcg (50,000 unit) capsule 1 cap PO SA@1000 RF: 0 amlodipine 5 mg tablet 5 mg PO DAILY RF: 0 insulin aspart U-100 [Novolog Flexpen U-100 Insulin] 100 unit/mL (3 mL) Insulin Pen 5 unit SUBCUT BIDAC RF: 0 loperamide 2 mg Tablet 2 mg PO QID PRN (Reason: Diarrhea) RF: 0 nitroglycerin 0.4 mg Tablet, Sublingual 0.4 mg SUBLINGUAL Q5M PRN (Reason: Chest Pain) RF: 0 melatonin 5 mg Tablet 5 mg PO BEDTIME PRN (Reason: Sleep) RF: 0 pantoprazole 20 mg tablet,delayed release (DR/EC) 1 tab PO DAILY RF: 0 gabapentin 100 mg capsule 200 mg PO TID RF: 0 diclofenac sodium 1 % gel 2 g topical QID Qty: 100 RF: 0 acetaminophen [Tylenol Extra Strength] 500 mg tablet 500 mg PO Q6H PRN (Reason: pain or fever) Qty: 20 RF: 0 ondansetron 4 mg tablet,disintegrating 4 mg PO Q6-8H PRN (Reason: nausea and vomiting) Qty: 14 RF: 0 acetaminophen 500 mg tablet 500 mg PO Q6H PRNRF: 0 metoclopramide HCl 5 mg tablet 5 mg PO QID RF: 0 (DME) pen needle, diabetic 31 gauge x 5/16 needle See Rx Instructions ea subcut .MEDSUPPLY Qty: 1200 RF: 0 cholecalciferol (vitamin D3) 25 mcg (1,000 unit) capsule 25 mcg PO DAILY RF: 0 Tresiba FlexTouch U-100 100 unit/mL (3 mL) insulin pen 12 unit subcut DAILY RF: 0 lidocaine 4 % adhesive patch,medicated 1 patch topical DAILY PRN (Reason: pain) Qty: 30 RF: 0
[2021-09-28 00:01] LABS: Glucose, Whole Blood 279 mg/dL (60-115)
[2021-09-28 00:03] VITALS: BP 142/86; PULSE 110; RESP 18; TEMP 37.3; O2SAT 98; BMI 37.8
[2021-09-28 01:26] LABS: Bacteria Urine TRACE /LPF; Mucus Urine 2+ /LPF; RBC Urine 0-2 /HPF (0); Renal Epithelial Cells Urine TRACE /LPF; Squamous Epithelial Cell Urine 3+ /LPF; WBC Urine 0-2 /HPF (0-4)
[2021-09-28 01:41] LABS: Appearance Urine CLEAR; Color Urine YELLOW; Glucose Urine UA >=1000 MG/DL (NEG); Leukocyte Esterase Urine NEG (NEG); Nitrite Urine NEG (NEG); Specific Gravity - Urine 1.025 (1.005-1.025); UACC Culture Trigger NO; Urine Blood TRACE (NEG); Urine Ketones NEG (NEG); Urine Protein 2+ MG/DL (NEG-TRACE)
[2021-09-28] MEDS: HYDROmorphone HCl 2 MG TABLET 1 MG PO (01:42)
--- NOTE | 2021-09-28 02:58 | PC.NURSE ---
EMS HERE FOR TRANSPORT TO HOME. NO IV'S PLACED. PT VERBALIZED U/S OF D/C INSTRUCTIONS AND LEFT ED WITH EMS TO HOME.
== END 2021-09-28 03:00 | disposition home or self-care (01) ==
PROVIDERS: Emergency Provider Internal Medicine
DX: S09.90XA Unspecified injury of head, initial encounter (principal); G44.309 Post-traumatic headache, unspecified, not intractable; R53.1 Weakness; E11.9 Type 2 diabetes mellitus without complications; W18.30XA Fall on same level, unspecified, initial encounter; Y93.9 Activity, unspecified; Y92.9 Unspecified place or not applicable; Y99.9 Unspecified external cause status; Z79.899 Other long term (current) drug therapy; Z79.4 Long term (current) use of insulin
CPT/HCPCS: 81001; 82947; 93005; 99283; 99284

== ENCOUNTER 2021-10-01 21:41 | Emergency (ER) | payer OTHER, SELFPAY ==
--- NOTE | 2021-10-01 | ECG_ITS ---
Test Reason : ekg changes Blood Pressure : / mmHG Vent. Rate : 089 BPM Atrial Rate : 089 BPM P-R Int : 210 ms QRS Dur : 118 ms QT Int : 410 ms P-R-T Axes : 066 103 -68 degrees QTc Int : 498 ms Poor data quality Atrial-sensed ventricular-paced rhythm with prolonged AV conduction T-wave inversion in Inferior leads Lateral leads Abnormal ECG When compared with ECG of 27-SEP-2021 23:54, Vent. rate has decreased BY 20 BPM Referred By: Jero Us Electronically Signed By:HARITHA BRAVO MD
[2021-10-01 21:51] VITALS: BP 156/84; BP 169/75; PULSE 84; PULSE 86; RESP 18; TEMP 37; O2SAT 96; O2SAT 98; BMI 32.9
--- NOTE | 2021-10-01 22:10 | ED.ABDPAIN ---
HPI - Abdominal Pain General Chief Complaint: Abdominal Pain Stated Complaint: abdominal pain Time Seen by Provider: 10/01/21 22:10 Source: patient Mode of arrival: EMS Limitations: no limitations History of Present Illness HPI narrative: Patient is 61 years old well known to us been here frequently for multiple complaints with history of anxiety, CKD, CHF, CAD status post CABG, diabetes, gastroparesis, IBS, GERD comes here for epigastric pain started yesterday similar to that in the past with nausea no vomiting no abdominal distension patient able to eat much because the pain no chest pain no shortness of breath no palpitation. No melena and no vomiting Related Data Home Medications Medication Instructions Recorded Confirmed lorazepam 0.5 mg tablet 0.5 mg PO BID PRN 09/14/20 06/18/21 albuterol sulfate 90 mcg/actuation 2 puff INHALATION Q6H PRN 09/16/20 06/18/21 aerosol inhaler allopurinol 100 mg tablet 100 mg PO DAILY 09/16/20 06/18/21 aspirin 81 mg tablet,delayed 81 mg PO DAILY 09/16/20 06/18/21 release atorvastatin 40 mg tablet 40 mg PO BEDTIME 09/16/20 06/18/21 fluticasone furoate 100 1 inh INHALATION DAILY PRN 09/16/20 06/18/21 mcg-vilanterol 25 mcg/dose inhalation powder (Breo Ellipta) metoprolol succinate 50 mg 50 mg PO DAILY 09/16/20 06/18/21 tablet,extended release 24 hr (Toprol XL) insulin degludec 100 unit/mL (3 12 unit SUBCUT DAILY ml 11/13/20 06/18/21 mL) subcutaneous pen (Tresiba FlexTouch U-100 insulin) amlodipine 5 mg tablet 5 mg PO DAILY 12/22/20 06/18/21 ergocalciferol (vitamin D2) 1,250 1 cap PO SA@1000 12/22/20 06/18/21 mcg (50,000 unit) capsule ferrous sulfate 325 mg (65 mg 325 mg PO DAILY 12/22/20 06/18/21 iron) tablet (iron) tamsulosin 0.4 mg capsule 0.4 mg PO DAILY@1700 12/22/20 06/18/21 insulin aspart U-100 100 unit/mL 5 unit SUBCUT BIDAC 01/08/21 06/18/21 (3 mL) subcutaneous pen (Novolog Flexpen U-100 Insulin aspart) loperamide 2 mg tablet 2 mg PO QID PRN 01/08/21 06/18/21 melatonin 5 mg tablet 5 mg PO BEDTIME PRN 01/08/21 06/18/21 nitroglycerin 0.4 mg sublingual 0.4 mg SUBLINGUAL Q5M PRN 01/08/21 06/18/21 tablet gabapentin 100 mg capsule 200 mg PO TID 03/06/21 06/18/21 pantoprazole 20 mg tablet,delayed 1 tab PO DAILY 03/06/21 06/18/21 release acetaminophen 500 mg tablet 500 mg PO Q6H PRN 03/20/21 06/18/21 cholecalciferol (vitamin D3) 25 25 mcg PO DAILY 03/20/21 06/18/21 mcg (1,000 unit) capsule metoclopramide HCl 5 mg tablet 5 mg PO QID 03/20/21 06/18/21 pen needle, diabetic 31 gauge x #1200 ea 03/20/21 06/18/2104/06 Previous Rx's Medication Instructions Recorded furosemide 40 mg tablet 40 mg PO DAILY #90 tab 12/06/20 ciprofloxacin HCl 500 mg tablet 500 mg PO BID 7 Days #14 tab 06/08/21 acetaminophen 500 mg tablet 500 mg PO Q6H PRN #20 tab 08/09/21 (Tylenol Extra Strength) diclofenac sodium 1 % topical gel 2 g TOPICAL QID #100 g 08/09/21 lidocaine 4 % topical patch 1 patch TOPICAL DAILY PRN #30 ea 08/15/21 ondansetron 4 mg disintegrating 4 mg PO Q6-8H PRN #14 tab 08/20/21 tablet Allergies Allergy/AdvReac Type Severity Reaction Status Date / Time tetracycline [Tetracycline] Allergy Mild HIVES, Verified 10/01/21 21:55 anaphylaxis, anaphylaxis Review of Systems Review of Systems Yes all other systems are reviewed and are negative Physical Exam Vital Signs: Vital Signs: Last Vital Signs Temp 98.6 F 10/01/21 23:45 Pulse 92 10/02/21 00:26 Resp 16 10/02/21 01:00 BP 165/76 H 10/02/21 00:26 Pulse Ox 94 10/02/21 00:26 Body Mass Index 32.9 Appearance: Alert. Oriented X3. No acute distress. Eyes: No pallor icterus ENT: Pharynx normal. Oral Mucosa moist Neck: Normal inspection. Neck supple. CVS: Normal heart rate and rhythm. Pulses normal. Respiratory: No respiratory distress. Equal air entry bilateral, no wheezing/rales/rhonchi Abdomen: Soft and tender in epigastric area, no rebound tenderness or guarding, Bowel sounds are present, no mass palpable, no CVA tenderness Skin: Skin warm and dry. Normal skin color. Normal skin turgor. Extremities: No lower extremity edema. No calf tenderness Neuro: Oriented X 3. MDM - Abdominal Pain MDM Narrative Medical decision making narrative: Patient with chronic abdominal pain received IV fluids no delta change in the troponin discharge patient home taking p.o. fluids now Lab Data Attestation: I reviewed the patient's lab results. Result diagrams: 10/01/21 22:47 10/01/21 22:47 Labs: Lab Results 10/01/21 10/01/21 10/01/21 Range/Units 22:47 22:47 22:47 WBC 6.7 (4.8-10.8) X10*3/uL RBC 3.42 L (4.20-5.50) X10*6/uL Hgb 10.9 L (12.0-16.0) g/dl Hct 33.4 L (37.0-47.0) % MCV 97.7 (80.0-98.0) fL MCH 31.9 (27.0-33.0) pg MCHC 32.6 (31.0-35.0) g/dl RDW 13.2 (11.0-16.0) % Plt Count 217 (160-400) X10*3/uL MPV 9.5 (9.4-12.3) fL Immature Gran % (Auto) 0.9 H (0.0-0.4) % Neut % (Auto) 67.0 (45-73) % Lymph % (Auto) 15.7 L (20-40) % [place] % (Auto) 13.4 H (2-11) % Eos % (Auto) 2.7 (0-4) % Baso % (Auto) 0.3 (0-2) % Lymph # (Auto) 1.1 L (1.2-4.9) X10*3/uL [place] # (Auto) 0.9 (0.1-1.2) X10*3/uL Eos # (Auto) 0.2 (0.0-0.4) X10*3/uL Baso # (Auto) 0.0 (0.0-0.2) X10*3/uL Abs Immat Gran (auto) 0.06 H (0.00-0.03) X10*3/uL Absolute Neuts (auto) 4.5 (2.0-8.3) x10*3/uL Absolute Nucleated RBC 0.000 (0.0-0.012) X10*3/uL Nucleated RBC % (auto) 0.0 (0.0-0.2) /100WBC Sodium 140 (135-145) mmol/L Potassium 4.7 (3.3-5.1) mmol/L Chloride 103 (96-108) mmol/L Carbon Dioxide 29 (22-29) mmol/L Anion Gap 13 (12-20) BUN 52 H (9-16) mg/dL Creatinine 2.17 H (0.5-1.4) mg/dL Estim Creat Clear Calc 26.3 Estimated GFR 23 Random Glucose 232 H (60-115) mg/dL Calcium 8.8 (8.4-10.2) mg/dL Total Bilirubin (0.0-1.0) mg/dL Direct Bilirubin (0.0-0.5) mg/dL AST (5-31) U/L ALT (0-31) U/L Alkaline Phosphatase (39-117) U/L Troponin I High Sens 35.9 H* D (<3.5-17.0) ng/L Total Protein (6.5-8.0) g/dL Albumin (3.5-5.0) g/dL Lipase (8-78) U/L 10/01/21 10/01/21 Range/Units 22:47 23:51 WBC (4.8-10.8) X10*3/uL RBC (4.20-5.50) X10*6/uL Hgb (12.0-16.0) g/dl Hct (37.0-47.0) % MCV (80.0-98.0) fL MCH (27.0-33.0) pg MCHC (31.0-35.0) g/dl RDW (11.0-16.0) % Plt Count (160-400) X10*3/uL MPV (9.4-12.3) fL Immature Gran % (Auto) (0.0-0.4) % Neut % (Auto) (45-73) % Lymph % (Auto) (20-40) % [place] % (Auto) (2-11) % Eos % (Auto) (0-4) % Baso % (Auto) (0-2) % Lymph # (Auto) (1.2-4.9) X10*3/uL [place] # (Auto) (0.1-1.2) X10*3/uL Eos # (Auto) (0.0-0.4) X10*3/uL Baso # (Auto) (0.0-0.2) X10*3/uL Abs Immat Gran (auto) (0.00-0.03) X10*3/uL Absolute Neuts (auto) (2.0-8.3) x10*3/uL Absolute Nucleated RBC (0.0-0.012) X10*3/uL Nucleated RBC % (auto) (0.0-0.2) /100WBC Sodium (135-145) mmol/L Potassium (3.3-5.1) mmol/L Chloride (96-108) mmol/L Carbon Dioxide (22-29) mmol/L Anion Gap (12-20) BUN (9-16) mg/dL Creatinine (0.5-1.4) mg/dL Estim Creat Clear Calc Estimated GFR Random Glucose (60-115) mg/dL Calcium (8.4-10.2) mg/dL Total Bilirubin 0.5 (0.0-1.0) mg/dL Direct Bilirubin 0.2 (0.0-0.5) mg/dL AST 17 (5-31) U/L ALT 15 (0-31) U/L Alkaline Phosphatase 123 H (39-117) U/L Troponin I High Sens 31.0 H* (<3.5-17.0) ng/L Total Protein 7.7 (6.5-8.0) g/dL Albumin 3.8 (3.5-5.0) g/dL Lipase 18 (8-78) U/L ECG Data Attestation: I personally reviewed and interpreted this ECG as follows: Interpretation: Atrial sensed ventricular paced rhythm with heart rate 88 beats per minute LVH normal axis normal intervals no acute ST T wave changes no acute ischemic Discharge Plan Discharge Clinical Impression: Abdominal pain, chronic, epigastric, Diabetic gastroparesis Patient Disposition: Home, Self-Care Instructions: Diabetic Gastroparesis (DC), Chronic Abdominal Pain (ED) Additional Instructions: Continue medications and follow-up with dehydrogenation supervisor Prescriptions: No Action furosemide 40 mg tablet 40 mg PO DAILY Qty: 90 RF: 3 lorazepam 0.5 mg Tablet 0.5 mg PO BID PRN (Reason: Anxiety) RF: 0 atorvastatin 40 mg Tablet 40 mg PO BEDTIME RF: 0 metoprolol succinate [Toprol XL] 50 mg Tablet Extended Release 24 Hr 50 mg PO DAILY RF: 0 allopurinol 100 mg Tablet 100 mg PO DAILY RF: 0 albuterol sulfate 90 mcg/actuation Hfa Aerosol Inhaler 2 puff INHALATION Q6H PRN (Reason: Shortness Of Breath) RF: 0 Breo Ellipta 100-25 mcg/dose Blister With Device 1 inh INHALATION DAILY PRN (Reason: Shortness Of Breath) RF: 0 aspirin 81 mg Tablet,Delayed Release (Dr/Ec) 81 mg PO DAILY RF: 0 Hold Instructions: Resume on 01/13/21. ciprofloxacin HCl 500 mg tablet 500 mg PO BID 7 Days Qty: 14 RF: 0 tamsulosin 0.4 mg capsule 0.4 mg PO DAILY@1700 RF: 0 ferrous sulfate [iron] 325 mg (65 mg iron) Tablet 325 mg PO DAILY RF: 0 ergocalciferol (vitamin D2) 1,250 mcg (50,000 unit) capsule 1 cap PO SA@1000 RF: 0 amlodipine 5 mg tablet 5 mg PO DAILY RF: 0 insulin aspart U-100 [Novolog Flexpen U-100 Insulin] 100 unit/mL (3 mL) Insulin Pen 5 unit SUBCUT BIDAC RF: 0 loperamide 2 mg Tablet 2 mg PO QID PRN (Reason: Diarrhea) RF: 0 nitroglycerin 0.4 mg Tablet, Sublingual 0.4 mg SUBLINGUAL Q5M PRN (Reason: Chest Pain) RF: 0 melatonin 5 mg Tablet 5 mg PO BEDTIME PRN (Reason: Sleep) RF: 0 pantoprazole 20 mg tablet,delayed release (DR/EC) 1 tab PO DAILY RF: 0 gabapentin 100 mg capsule 200 mg PO TID RF: 0 diclofenac sodium 1 % gel 2 g topical QID Qty: 100 RF: 0 acetaminophen [Tylenol Extra Strength] 500 mg tablet 500 mg PO Q6H PRN (Reason: pain or fever) Qty: 20 RF: 0 ondansetron 4 mg tablet,disintegrating 4 mg PO Q6-8H PRN (Reason: nausea and vomiting) Qty: 14 RF: 0 acetaminophen 500 mg tablet 500 mg PO Q6H PRNRF: 0 metoclopramide HCl 5 mg tablet 5 mg PO QID RF: 0 (DME) pen needle, diabetic 31 gauge x 5/16 needle See Rx Instructions ea subcut .MEDSUPPLY Qty: 1200 RF: 0 cholecalciferol (vitamin D3) 25 mcg (1,000 unit) capsule 25 mcg PO DAILY RF: 0 Tresiba FlexTouch U-100 100 unit/mL (3 mL) insulin pen 12 unit subcut DAILY RF: 0 lidocaine 4 % adhesive patch,medicated 1 patch topical DAILY PRN (Reason: pain) Qty: 30 RF: 0 PMFSH Past Medical History Medical History Acute heart failure with preserved ejection fraction Anemia Anxiety Arthritis Cardiac pacemaker in situ Carpal tunnel syndrome CHF (congestive heart failure) Chronic heart failure with preserved ejection fraction (HFpEF) COPD exacerbation Coronary artery disease CVA (cerebral vascular accident) Diabetes Fall Gastritis Gastroparesis Gastroparesis GERD (gastroesophageal reflux disease) Headache HLD (hyperlipidemia) HTN (hypertension) HTN (hypertension) Hypocalcemia Hypoxia IBS (irritable bowel syndrome) Knee pain, left Myocardial infarct Nausea and vomiting Orthostasis Renal failure Suprapatellar effusion of knee T2DM (type 2 diabetes mellitus) UTI (urinary tract infection) Surgical History H/O Achilles tendon repair History of appendectomy History of bladder surgery History of carpal tunnel release History of total hysterectomy with bilateral salpingo-oophorectomy (BSO) Hx of amputation Hx of CABG (~2019) Hx of cholecystectomy Hx of endoscopy Hx of knee surgery Hx of tonsillectomy Family History Family History Father No problems noted. 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
[2021-10-01 22:23] VITALS: PULSE 86; RESP 14
[2021-10-01 22:52] LABS: MANUAL DIFF FLAG NO
[2021-10-01 22:53] LABS: Basophils Percent Auto 0.3 % (0-2); Eosinophils Absolute Auto 0.2 X10*3/uL (0.0-0.4); Eosinophils Percent Auto 2.7 % (0-4); Hematocrit 33.4 % (37.0-47.0); Hemoglobin 10.9 g/dl (12.0-16.0); Imm Gran Abs Auto 0.06 X10*3/uL (0.00-0.03); Imm Gran Pct Auto 0.9 % (0.0-0.4); Lymphocytes Absolute Auto 1.1 X10*3/uL (1.2-4.9); Lymphocytes Percent Auto 15.7 % (20-40); Mean Corpuscular HGB Conc 32.6 g/dl (31.0-35.0); Mean Corpuscular Hemoglobin 31.9 pg (27.0-33.0); Mean Corpuscular Volume 97.7 fL (80.0-98.0); Mean Platelet Volume 9.5 fL (9.4-12.3); Monocytes Absolute Auto 0.9 X10*3/uL (0.1-1.2); Monocytes Percent Auto 13.4 % (2-11); Neutrophils Absolute Auto 4.5 x10*3/uL (2.0-8.3); Platelet Count 217 X10*3/uL (160-400); Red Blood Count 3.42 X10*6/uL (4.20-5.50); Red Cell Distribution Width 13.2 % (11.0-16.0); White Blood Count 6.7 X10*3/uL (4.8-10.8)
[2021-10-01] MEDS: HYDROmorphone HCl 2 MG/ML VIAL IM (23:00)
[2021-10-01 23:18] LABS: Anion Gap 13 (12-20); Blood Urea Nitrogen 52 mg/dL (9-16); Calcium 8.8 mg/dL (8.4-10.2); Carbon Dioxide 29 mmol/L (22-29); Chloride 103 mmol/L (96-108); Creatinine Clr Calc Pharmacy 26.3; Estimated Glomerular Filt Rate 23; Glucose Random 232 mg/dL (60-115); Potassium 4.7 mmol/L (3.3-5.1); Sodium 140 mmol/L (135-145)
[2021-10-01 23:20] LABS: Alanine Aminotransferase 15 U/L (0-31); Albumin Level 3.8 g/dL (3.5-5.0); Alkaline Phosphatase 123 U/L (39-117); Aspartate Amino Transferase 17 U/L (5-31); Bilirubin Direct 0.2 mg/dL (0.0-0.5); Bilirubin Total 0.5 mg/dL (0.0-1.0); Lipase 18 U/L (8-78); Total Protein 7.7 g/dL (6.5-8.0); Troponin-I High Sensitivity 35.9 ng/L (<3.5-17.0)
[2021-10-01 23:45] VITALS: BP 167/81; PULSE 88; RESP 14; TEMP 37; O2SAT 94
[2021-10-01] MEDS: 0.9 % Sodium Chloride 1,000 ML 999 ML IVCONT (23:50)
[2021-10-02 00:26] VITALS: BP 165/76; PULSE 92; RESP 14; O2SAT 94
[2021-10-02 01:00] VITALS: RESP 16
== END 2021-10-02 04:05 | disposition home or self-care (01) ==
PROVIDERS: Emergency Provider Internal Medicine
DX: E11.43 Type 2 diabetes mellitus with diabetic autonomic (poly)neuropathy (principal); K31.84 Gastroparesis; I50.9 Heart failure, unspecified; I25.10 Atherosclerotic heart disease of native coronary artery without angina pectoris; Z95.1 Presence of aortocoronary bypass graft
CPT/HCPCS: 36415; 80048; 80076; 83690; 84484; 85025; 93005; 96360; 96372; 99284; 99285; J1170

== ENCOUNTER 2021-10-02 10:18 | Emergency (ER) | payer OTHER, SELFPAY ==
[2021-10-02 10:32] VITALS: BP 180/90; PULSE 99; O2SAT 95
[2021-10-02 10:35] VITALS: BP 162/79; PULSE 100; RESP 18; TEMP 36.6; O2SAT 92; BMI 32.7
[2021-10-02 12:37] LABS: Appearance Urine CLEAR; Color Urine STRAW; Glucose Urine UA >=1000 MG/DL (NEG); Leukocyte Esterase Urine NEG (NEG); Nitrite Urine NEG (NEG); UACC Culture Trigger NO; Urine Blood TRACE (NEG); Urine Ketones NEG (NEG); Urine Protein 2+ MG/DL (NEG-TRACE)
[2021-10-02 12:47] LABS: RBC Urine 0 /HPF (0); Squamous Epithelial Cell Urine 3+ /LPF; WBC Urine 0-2 /HPF (0-4)
[2021-10-02 13:01] VITALS: BP 156/96; PULSE 99; RESP 14; O2SAT 92
--- NOTE | 2021-10-02 13:11 | ECG_ITS ---
Test Reason : NAUSEA Blood Pressure : / mmHG Vent. Rate : 099 BPM Atrial Rate : 099 BPM P-R Int : 214 ms QRS Dur : 118 ms QT Int : 388 ms P-R-T Axes : 070 103 261 degrees QTc Int : 497 ms Atrial-sensed ventricular-paced rhythm with prolonged AV conduction with 1st degree A-V block T-wave inversion in Inferior leads Lateral leads Abnormal ECG When compared with ECG of 01-OCT-2021 22:14, Vent. rate has increased BY 10 BPM No significant changes seen Referred By: Elsy Carmichael Electronically Signed By:HARITHA BRAVO MD
--- NOTE | 2021-10-02 13:14 | ED.ABDPAIN ---
HPI - Abdominal Pain General Chief Complaint: Abdominal Pain Stated Complaint: NAUSEA AND VOMITING SINCE YESTERDAY. RECENT DC. Time Seen by Provider: 10/02/21 13:05 Source: EMS Mode of arrival: EMS Limitations: no limitations History of Present Illness HPI narrative: 61-year-old female with a past medical history of anxiety,, CKD, CHF, CAD status post CABG, diabetes, gastroparesis, IBS, GERD?here with complaints of upper abdominal pain with nausea and vomiting for the last 2 days. Patient was seen here yesterday treated with IV fluids, pain medication and nausea medicine was discharged home. She tells me that she felt some slight improvement on discharge but then the vomiting and pain returned. Unable to tolerate p.o.. No diarrhea, constipation, urinary symptoms, fevers, chills. Last BM was yesterday and normal. Related Data Home Medications Medication Instructions Recorded Confirmed lorazepam 0.5 mg tablet 0.5 mg PO BID PRN 09/14/20 06/18/21 albuterol sulfate 90 mcg/actuation 2 puff INHALATION Q6H PRN 09/16/20 06/18/21 aerosol inhaler allopurinol 100 mg tablet 100 mg PO DAILY 09/16/20 06/18/21 aspirin 81 mg tablet,delayed 81 mg PO DAILY 09/16/20 06/18/21 release atorvastatin 40 mg tablet 40 mg PO BEDTIME 09/16/20 06/18/21 fluticasone furoate 100 1 inh INHALATION DAILY PRN 09/16/20 06/18/21 mcg-vilanterol 25 mcg/dose inhalation powder (Breo Ellipta) metoprolol succinate 50 mg 50 mg PO DAILY 09/16/20 06/18/21 tablet,extended release 24 hr (Toprol XL) insulin degludec 100 unit/mL (3 12 unit SUBCUT DAILY ml 11/13/20 06/18/21 mL) subcutaneous pen (Tresiba FlexTouch U-100 insulin) amlodipine 5 mg tablet 5 mg PO DAILY 12/22/20 06/18/21 ergocalciferol (vitamin D2) 1,250 1 cap PO SA@1000 12/22/20 06/18/21 mcg (50,000 unit) capsule ferrous sulfate 325 mg (65 mg 325 mg PO DAILY 12/22/20 06/18/21 iron) tablet (iron) tamsulosin 0.4 mg capsule 0.4 mg PO DAILY@1700 12/22/20 06/18/21 insulin aspart U-100 100 unit/mL 5 unit SUBCUT BIDAC 01/08/21 06/18/21 (3 mL) subcutaneous pen (Novolog Flexpen U-100 Insulin aspart) loperamide 2 mg tablet 2 mg PO QID PRN 01/08/21 06/18/21 melatonin 5 mg tablet 5 mg PO BEDTIME PRN 01/08/21 06/18/21 nitroglycerin 0.4 mg sublingual 0.4 mg SUBLINGUAL Q5M PRN 01/08/21 06/18/21 tablet gabapentin 100 mg capsule 200 mg PO TID 03/06/21 06/18/21 pantoprazole 20 mg tablet,delayed 1 tab PO DAILY 03/06/21 06/18/21 release acetaminophen 500 mg tablet 500 mg PO Q6H PRN 03/20/21 06/18/21 cholecalciferol (vitamin D3) 25 25 mcg PO DAILY 03/20/21 06/18/21 mcg (1,000 unit) capsule metoclopramide HCl 5 mg tablet 5 mg PO QID 03/20/21 06/18/21 pen needle, diabetic 31 gauge x #1200 ea 03/20/21 06/18/2104/06 Previous Rx's Medication Instructions Recorded furosemide 40 mg tablet 40 mg PO DAILY #90 tab 12/06/20 ciprofloxacin HCl 500 mg tablet 500 mg PO BID 7 Days #14 tab 06/08/21 acetaminophen 500 mg tablet 500 mg PO Q6H PRN #20 tab 08/09/21 (Tylenol Extra Strength) diclofenac sodium 1 % topical gel 2 g TOPICAL QID #100 g 08/09/21 lidocaine 4 % topical patch 1 patch TOPICAL DAILY PRN #30 ea 08/15/21 ondansetron 4 mg disintegrating 4 mg PO Q6-8H PRN #14 tab 08/20/21 tablet Allergies Allergy/AdvReac Type Severity Reaction Status Date / Time tetracycline [Tetracycline] Allergy Mild HIVES, Verified 10/01/21 21:55 anaphylaxis, anaphylaxis Review of Systems Review of Systems Yes all other systems are reviewed and are negative Constitutional: Reports no additional constitutional complaints, Denies body ache(s), Denies chills, Denies fever(s), Denies headache(s) and Denies weakness Eyes: Reports no additional eye complaints and Denies change in vision Reports system reviewed and no additional complaints, except as documented, Denies dizziness, Denies headache(s), Denies nasal congestion, Denies nasal discharge and Denies neck pain Cardiovascular: Reports no additional cardiovascular complaints, Denies chest pain, Denies leg edema and Denies dyspnea Respiratory: Reports no additional respiratory complaints, Denies cough and Denies dyspnea Gastrointestinal: Reports no additional gastrointestinal complaints, Reports abdominal pain, Denies diarrhea, Reports nausea and Reports vomiting Genitourinary: Reports no additional female genitourinary complaints and Denies urinary incontinence Musculoskeletal: Reports no additional musculoskeletal complaints, Denies back pain, Denies arthralgias, Denies joint swelling, Denies neck pain, Denies numbness and Denies tingling Skin/Breast: Reports system reviewed and no additional complaints, except as docu and Denies rash Reports system reviewed and no additional complaints, except as documented, Denies Abnormal speech present, Denies dizziness, Denies headache(s), Denies numbness, Denies tingling and Denies weakness Physical Exam Vital Signs: Vital Signs: Last Vital Signs Temp 98.9 F 10/02/21 19:26 Pulse 78 10/02/21 19:26 Resp 15 10/02/21 19:26 BP 155/78 H 10/02/21 19:26 Pulse Ox 98 10/02/21 19:26 Body Mass Index 32.7 Const: General: cooperative, healthy appearing, comfortable and no acute distress Orientation/consciousness: patient oriented x3 Limitations: no limitations HENMT: Head: Yes normal to inspection Ears: hearing grossly normal bilaterally General nose exam: Normal external nose present Face and sinus: Yes normal facial exam Mouth: Normal oral and palatal mucosa present Throat: Yes posterior oropharynx normal Eyes: General: appearance normal, both eyes and all related structures Pupils: Equal, round and reactive pupils present Neck: Neck: Yes normal visual inspection Chest: Chest palpation & inspection: normal inspection of the chest Resp: Effort & Inspection: normal respiratory effort Auscultation: clear to auscultation bilaterally Cardio: Rate: regular rate Rhythm: regular rhythm Peripheral pulses: Peripheral pulses 2+ throughout GI: Inspection: Yes normal to inspection Palpation (GI): Soft to palpation and Tenderness to palpation present (GI) (Epigastric tenderness with no rebound or guarding) Auscultation: normal bowel sounds Back/Spine/Pelvis: Thoracic/Lumbar Spine: thoracic and lumbar spine normal to inspection Skin: General skin exam: no rashes or lesions noted Neuro: General: patient oriented x3, no focal motor deficits and normal sensation to monofilament Cranial nerves: Yes Equal, round and reactive pupils present Cognition (Neuro): normal cognition Speech: No Abnormal speech present Gait exam (Neuro): Normal gait present Motor exam (neuro): 5/5 motor strength present throughout Extrem: General: Yes normal to inspection, Yes no pedal edema and Yes no calf tenderness Course Course Course Narrative: 61-year-old female with a past medical history of diabetic gastroparesis here with complaints of upper abdominal pain and vomiting for 2 days. Seen here yesterday received some medications and felt improved and discharged but then symptoms returned last evening. She does feel like these symptoms are typical for her gastroparesis and feel the same for her. On exam has some moderate epigastric tenderness with no rebound or guarding. Will check labs, EKG. Will place PIV, give analgesia, antiemetic and fluids. 1520-labs at baseline for patient. Mildly elevated troponin actually lower then yesterday with no CP or EKG changes. Not likely ACS. Continued pain and vomiting. Will re-medicate. 1740-Patient feeling improved. Tolerating PO ice chips with no additional vomiting episodes since 1520. Requesting ambulance home. Transportation booked. MDM - Abdominal Pain Medical Records Attestation: I reviewed the patient's medical records. Lab Data Attestation: I reviewed the patient's lab results. Result diagrams: 10/02/21 14:38 10/02/21 14:38 Labs: Lab Results 10/02/21 10/02/21 10/02/21 Range/Units 12:11 14:38 14:38 WBC 6.8 (4.8-10.8) X10*3/uL RBC 3.34 L (4.20-5.50) X10*6/uL Hgb 10.5 L (12.0-16.0) g/dl Hct 31.9 L (37.0-47.0) % MCV 95.5 (80.0-98.0) fL MCH 31.4 (27.0-33.0) pg MCHC 32.9 (31.0-35.0) g/dl RDW 13.2 (11.0-16.0) % Plt Count 215 (160-400) X10*3/uL MPV 10.1 (9.4-12.3) fL Immature Gran % (Auto) 0.7 H (0.0-0.4) % Neut % (Auto) 80.7 H (45-73) % Lymph % (Auto) 11.1 L (20-40) % [place] % (Auto) 7.2 (2-11) % Eos % (Auto) 0.0 (0-4) % Baso % (Auto) 0.3 (0-2) % Lymph # (Auto) 0.8 L (1.2-4.9) X10*3/uL [place] # (Auto) 0.5 (0.1-1.2) X10*3/uL Eos # (Auto) 0.0 (0.0-0.4) X10*3/uL Baso # (Auto) 0.0 (0.0-0.2) X10*3/uL Abs Immat Gran (auto) 0.05 H (0.00-0.03) X10*3/uL Absolute Neuts (auto) 5.5 (2.0-8.3) x10*3/uL Absolute Nucleated RBC 0.000 (0.0-0.012) X10*3/uL Nucleated RBC % (auto) 0.0 (0.0-0.2) /100WBC Sodium 136 (135-145) mmol/L Potassium 4.8 (3.3-5.1) mmol/L Chloride 102 (96-108) mmol/L Carbon Dioxide 25 (22-29) mmol/L Anion Gap 14 (12-20) BUN 43 H (9-16) mg/dL Creatinine 1.75 H (0.5-1.4) mg/dL Estim Creat Clear Calc 32.5 Estimated GFR 29 Random Glucose 285 H (60-115) mg/dL Calcium 8.2 L D (8.4-10.2) mg/dL Magnesium 2.0 (1.6-2.6) mg/dL Total Bilirubin 0.5 (0.0-1.0) mg/dL Direct Bilirubin 0.2 (0.0-0.5) mg/dL AST 18 (5-31) U/L ALT 15 (0-31) U/L Alkaline Phosphatase 116 (39-117) U/L Troponin I High Sens (<3.5-17.0) ng/L Total Protein 7.4 (6.5-8.0) g/dL Albumin 3.7 (3.5-5.0) g/dL Urine Color STRAW Urine Appearance CLEAR Urine pH 6.0 (5.0-8.0) Ur Specific [place] 1.020 (1.005-1.025) Urine Protein 2+ H (NEG-TRACE) MG/DL Urine Glucose (UA) >=1000 H (NEG) MG/DL Urine Ketones NEG (NEG) MG/DL Urine Blood TRACE (NEG) Urine Nitrite NEG (NEG) Ur Leukocyte Esterase NEG (NEG) Urine RBC 0 (0) /HPF Urine WBC 0-2 (0-4) /HPF Ur Squamous Epith Cells 3+ /LPF Urine Bacteria NONE /LPF 10/02/21 Range/Units 14:38 WBC (4.8-10.8) X10*3/uL RBC (4.20-5.50) X10*6/uL Hgb (12.0-16.0) g/dl Hct (37.0-47.0) % MCV (80.0-98.0) fL MCH (27.0-33.0) pg MCHC (31.0-35.0) g/dl RDW (11.0-16.0) % Plt Count (160-400) X10*3/uL MPV (9.4-12.3) fL Immature Gran % (Auto) (0.0-0.4) % Neut % (Auto) (45-73) % Lymph % (Auto) (20-40) % [place] % (Auto) (2-11) % Eos % (Auto) (0-4) % Baso % (Auto) (0-2) % Lymph # (Auto) (1.2-4.9) X10*3/uL [place] # (Auto) (0.1-1.2) X10*3/uL Eos # (Auto) (0.0-0.4) X10*3/uL Baso # (Auto) (0.0-0.2) X10*3/uL Abs Immat Gran (auto) (0.00-0.03) X10*3/uL Absolute Neuts (auto) (2.0-8.3) x10*3/uL Absolute Nucleated RBC (0.0-0.012) X10*3/uL Nucleated RBC % (auto) (0.0-0.2) /100WBC Sodium (135-145) mmol/L Potassium (3.3-5.1) mmol/L Chloride (96-108) mmol/L Carbon Dioxide (22-29) mmol/L Anion Gap (12-20) BUN (9-16) mg/dL Creatinine (0.5-1.4) mg/dL Estim Creat Clear Calc Estimated GFR Random Glucose (60-115) mg/dL Calcium (8.4-10.2) mg/dL Magnesium (1.6-2.6) mg/dL Total Bilirubin (0.0-1.0) mg/dL Direct Bilirubin (0.0-0.5) mg/dL AST (5-31) U/L ALT (0-31) U/L Alkaline Phosphatase (39-117) U/L Troponin I High Sens 22.7 H* (<3.5-17.0) ng/L Total Protein (6.5-8.0) g/dL Albumin (3.5-5.0) g/dL Urine Color Urine Appearance Urine pH (5.0-8.0) Ur Specific [place] (1.005-1.025) Urine Protein (NEG-TRACE) MG/DL Urine Glucose (UA) (NEG) MG/DL Urine Ketones (NEG) MG/DL Urine Blood (NEG) Urine Nitrite (NEG) Ur Leukocyte Esterase (NEG) Urine RBC (0) /HPF Urine WBC (0-4) /HPF Ur Squamous Epith Cells /LPF Urine Bacteria /LPF ECG Data Attestation: I personally reviewed and interpreted this ECG as follows: ECG interpretation date: 10/02/21 ECG interpretation time: 13:23 Interpretation: A/V paced rhythm with a rate 99 ST changes in leads 3, AVF, V5 and V6 which are unchanged from previous Discharge Plan Discharge Clinical Impression: Diabetic gastroparesis Patient Disposition: Home, Self-Care Instructions: Diabetic Gastroparesis (DC) Prescriptions: No Action furosemide 40 mg tablet 40 mg PO DAILY Qty: 90 RF: 3 lorazepam 0.5 mg Tablet 0.5 mg PO BID PRN (Reason: Anxiety) RF: 0 atorvastatin 40 mg Tablet 40 mg PO BEDTIME RF: 0 metoprolol succinate [Toprol XL] 50 mg Tablet Extended Release 24 Hr 50 mg PO DAILY RF: 0 allopurinol 100 mg Tablet 100 mg PO DAILY RF: 0 albuterol sulfate 90 mcg/actuation Hfa Aerosol Inhaler 2 puff INHALATION Q6H PRN (Reason: Shortness Of Breath) RF: 0 Breo Ellipta 100-25 mcg/dose Blister With Device 1 inh INHALATION DAILY PRN (Reason: Shortness Of Breath) RF: 0 aspirin 81 mg Tablet,Delayed Release (Dr/Ec) 81 mg PO DAILY RF: 0 Hold Instructions: Resume on 01/13/21. ciprofloxacin HCl 500 mg tablet 500 mg PO BID 7 Days Qty: 14 RF: 0 tamsulosin 0.4 mg capsule 0.4 mg PO DAILY@1700 RF: 0 ferrous sulfate [iron] 325 mg (65 mg iron) Tablet 325 mg PO DAILY RF: 0 ergocalciferol (vitamin D2) 1,250 mcg (50,000 unit) capsule 1 cap PO SA@1000 RF: 0 amlodipine 5 mg tablet 5 mg PO DAILY RF: 0 insulin aspart U-100 [Novolog Flexpen U-100 Insulin] 100 unit/mL (3 mL) Insulin Pen 5 unit SUBCUT BIDAC RF: 0 loperamide 2 mg Tablet 2 mg PO QID PRN (Reason: Diarrhea) RF: 0 nitroglycerin 0.4 mg Tablet, Sublingual 0.4 mg SUBLINGUAL Q5M PRN (Reason: Chest Pain) RF: 0 melatonin 5 mg Tablet 5 mg PO BEDTIME PRN (Reason: Sleep) RF: 0 pantoprazole 20 mg tablet,delayed release (DR/EC) 1 tab PO DAILY RF: 0 gabapentin 100 mg capsule 200 mg PO TID RF: 0 diclofenac sodium 1 % gel 2 g topical QID Qty: 100 RF: 0 acetaminophen [Tylenol Extra Strength] 500 mg tablet 500 mg PO Q6H PRN (Reason: pain or fever) Qty: 20 RF: 0 ondansetron 4 mg tablet,disintegrating 4 mg PO Q6-8H PRN (Reason: nausea and vomiting) Qty: 14 RF: 0 acetaminophen 500 mg tablet 500 mg PO Q6H PRNRF: 0 metoclopramide HCl 5 mg tablet 5 mg PO QID RF: 0 (DME) pen needle, diabetic 31 gauge x 5/16 needle See Rx Instructions ea subcut .MEDSUPPLY Qty: 1200 RF: 0 cholecalciferol (vitamin D3) 25 mcg (1,000 unit) capsule 25 mcg PO DAILY RF: 0 Tresiba FlexTouch U-100 100 unit/mL (3 mL) insulin pen 12 unit subcut DAILY RF: 0 lidocaine 4 % adhesive patch,medicated 1 patch topical DAILY PRN (Reason: pain) Qty: 30 RF: 0 PMFSH Past Medical History Attestation statement: The following information was validated with the patient. Source: old records reviewed and nursing notes reviewed Medical History Acute heart failure with preserved ejection fraction Anemia Anxiety Arthritis Cardiac pacemaker in situ Carpal tunnel syndrome CHF (congestive heart failure) Chronic heart failure with preserved ejection fraction (HFpEF) COPD exacerbation Coronary artery disease CVA (cerebral vascular accident) Diabetes Fall Gastritis Gastroparesis Gastroparesis GERD (gastroesophageal reflux disease) Headache HLD (hyperlipidemia) HTN (hypertension) HTN (hypertension) Hypocalcemia Hypoxia IBS (irritable bowel syndrome) Knee pain, left Myocardial infarct Nausea and vomiting Orthostasis Renal failure Suprapatellar effusion of knee T2DM (type 2 diabetes mellitus) UTI (urinary tract infection) Surgical History H/O Achilles tendon repair History of appendectomy History of bladder surgery History of carpal tunnel release History of total hysterectomy with bilateral salpingo-oophorectomy (BSO) Hx of amputation Hx of CABG (~2019) Hx of cholecystectomy Hx of endoscopy Hx of knee surgery Hx of tonsillectomy Family History Family History Father No problems noted. Mother Diabetes Hypercholesteremia Hypertension Stroke Social History Social History Household Members: Family Household Members Other:: 1 Housing: Apartment Do you presently have visiting nurse or other home services: Yes (test bore helper, vna) Alcohol intake: never Patient Tobacco Use Status: Never used Tobacco Years Smoked: 20 Second Hand Smoke Exposure: No Advance Directives: No Advance Directives Information Provided: No Patient : No service: No Current occupational status: disabled
[2021-10-02] MEDS: 0.9 % Sodium Chloride 500 ML 999 ML IV (14:12)
[2021-10-02] MEDS: Metoclopramide HCl 10 MG/2 ML VIAL IVPUSH (14:14)
[2021-10-02] MEDS: diphenhydrAMINE HCL 50 MG/ML VIAL 25 MG IVPUSH (14:15)
[2021-10-02] MEDS: Famotidine/PF 20 MG/2 ML VIAL IVPUSH (14:17)
[2021-10-02] MEDS: Morphine Sulfate 4 MG/ML CARTRIDGE IVPUSH (14:18)
[2021-10-02 14:46] LABS: MANUAL DIFF FLAG NO
[2021-10-02 14:49] LABS: Basophils Percent Auto 0.3 % (0-2); Hematocrit 31.9 % (37.0-47.0); Hemoglobin 10.5 g/dl (12.0-16.0); Imm Gran Abs Auto 0.05 X10*3/uL (0.00-0.03); Imm Gran Pct Auto 0.7 % (0.0-0.4); Lymphocytes Absolute Auto 0.8 X10*3/uL (1.2-4.9); Lymphocytes Percent Auto 11.1 % (20-40); Mean Corpuscular HGB Conc 32.9 g/dl (31.0-35.0); Mean Corpuscular Hemoglobin 31.4 pg (27.0-33.0); Mean Corpuscular Volume 95.5 fL (80.0-98.0); Mean Platelet Volume 10.1 fL (9.4-12.3); Monocytes Absolute Auto 0.5 X10*3/uL (0.1-1.2); Monocytes Percent Auto 7.2 % (2-11); Neutrophils Absolute Auto 5.5 x10*3/uL (2.0-8.3); Neutrophils Percent Auto 80.7 % (45-73); Platelet Count 215 X10*3/uL (160-400); Red Blood Count 3.34 X10*6/uL (4.20-5.50); Red Cell Distribution Width 13.2 % (11.0-16.0); White Blood Count 6.8 X10*3/uL (4.8-10.8)
[2021-10-02 15:05] LABS: Alanine Aminotransferase 15 U/L (0-31); Albumin Level 3.7 g/dL (3.5-5.0); Alkaline Phosphatase 116 U/L (39-117); Anion Gap 14 (12-20); Aspartate Amino Transferase 18 U/L (5-31); Bilirubin Direct 0.2 mg/dL (0.0-0.5); Bilirubin Total 0.5 mg/dL (0.0-1.0); Blood Urea Nitrogen 43 mg/dL (9-16); Calcium 8.2 mg/dL (8.4-10.2); Carbon Dioxide 25 mmol/L (22-29); Chloride 102 mmol/L (96-108); Creatinine Clr Calc Pharmacy 32.5; Estimated Glomerular Filt Rate 29; Glucose Random 285 mg/dL (60-115); Potassium 4.8 mmol/L (3.3-5.1); Sodium 136 mmol/L (135-145); Total Protein 7.4 g/dL (6.5-8.0)
--- NOTE | 2021-10-02 15:14 | PC.NURSE ---
Pt vomited after approximately a 20minute nap after being medicated for pain. BP alavated with SBP in 200s. MD notified.
[2021-10-02 15:15] LABS: Troponin-I High Sensitivity 22.7 ng/L (<3.5-17.0)
[2021-10-02 15:18] VITALS: BP 213/112; PULSE 104; RESP 18; O2SAT 95
[2021-10-02 17:08] VITALS: BP 172/82; PULSE 90; RESP 20; O2SAT 96
--- NOTE | 2021-10-02 17:12 | PC.NURSE ---
BP and pain improving. PO challenge with ice chips at this time.
[2021-10-02 19:26] VITALS: BP 155/78; PULSE 78; RESP 15; TEMP 37.2; O2SAT 98
== END 2021-10-02 22:16 | disposition home or self-care (01) ==
PROVIDERS: Nurse Practitioner Family; Emergency Provider Emergency Medicine
DX: E11.43 Type 2 diabetes mellitus with diabetic autonomic (poly)neuropathy (principal); K31.84 Gastroparesis; I13.0 Hypertensive heart and chronic kidney disease with heart failure and stage 1 through stage 4 chronic kidney disease, or unspecified chronic kidney disease; N18.9 Chronic kidney disease, unspecified; I50.9 Heart failure, unspecified; E11.22 Type 2 diabetes mellitus with diabetic chronic kidney disease; I25.10 Atherosclerotic heart disease of native coronary artery without angina pectoris; Z95.1 Presence of aortocoronary bypass graft
CPT/HCPCS: 36415; 80048; 80076; 81001; 83735; 84484; 85025; 93005; 96374; 96375; 99284; 99285; J1200; J2270; J2550; J2765

== ENCOUNTER 2021-11-01 14:02 | Emergency (ER) | payer OTHER, SELFPAY ==
--- NOTE | 2021-11-01 14:17 | ED_ITS ---
HPI - General Adult General Chief complaint: General Medical Time Seen by Provider: 11/01/21 14:17 Source: patient, EMS and old records reviewed Mode of arrival: EMS Limitations: no limitations History of Present Illness HPI narrative: states she feels fine complaint: BS in 300s told by visiting RN ketones in urine Onset (ago): day(s) (today) Severity: mild Relieving factors: none Exacerbating factors: none Associated symptoms: denies other symptoms Treatments prior to arrival: none Related Data Home Medications Medication Instructions Recorded Confirmed lorazepam 0.5 mg tablet 0.5 mg PO BID PRN 09/14/20 06/18/21 albuterol sulfate 90 mcg/actuation 2 puff INHALATION Q6H PRN 09/16/20 06/18/21 aerosol inhaler allopurinol 100 mg tablet 100 mg PO DAILY 09/16/20 06/18/21 aspirin 81 mg tablet,delayed 81 mg PO DAILY 09/16/20 06/18/21 release atorvastatin 40 mg tablet 40 mg PO BEDTIME 09/16/20 06/18/21 fluticasone furoate 100 1 inh INHALATION DAILY PRN 09/16/20 06/18/21 mcg-vilanterol 25 mcg/dose inhalation powder (Breo Ellipta) metoprolol succinate 50 mg 50 mg PO DAILY 09/16/20 06/18/21 tablet,extended release 24 hr (Toprol XL) insulin degludec 100 unit/mL (3 12 unit SUBCUT DAILY ml 11/13/20 06/18/21 mL) subcutaneous pen (Tresiba FlexTouch U-100 insulin) amlodipine 5 mg tablet 5 mg PO DAILY 12/22/20 06/18/21 ergocalciferol (vitamin D2) 1,250 1 cap PO SA@1000 12/22/20 06/18/21 mcg (50,000 unit) capsule ferrous sulfate 325 mg (65 mg 325 mg PO DAILY 12/22/20 06/18/21 iron) tablet (iron) tamsulosin 0.4 mg capsule 0.4 mg PO DAILY@1700 12/22/20 06/18/21 insulin aspart U-100 100 unit/mL 5 unit SUBCUT BIDAC 01/08/21 06/18/21 (3 mL) subcutaneous pen (Novolog Flexpen U-100 Insulin aspart) loperamide 2 mg tablet 2 mg PO QID PRN 01/08/21 06/18/21 melatonin 5 mg tablet 5 mg PO BEDTIME PRN 01/08/21 06/18/21 nitroglycerin 0.4 mg sublingual 0.4 mg SUBLINGUAL Q5M PRN 01/08/21 06/18/21 tablet gabapentin 100 mg capsule 200 mg PO TID 03/06/21 06/18/21 pantoprazole 20 mg tablet,delayed 1 tab PO DAILY 03/06/21 06/18/21 release acetaminophen 500 mg tablet 500 mg PO Q6H PRN 03/20/21 06/18/21 cholecalciferol (vitamin D3) 25 25 mcg PO DAILY 03/20/21 06/18/21 mcg (1,000 unit) capsule metoclopramide HCl 5 mg tablet 5 mg PO QID 03/20/21 06/18/21 pen needle, diabetic 31 gauge x #1200 ea 03/20/21 06/18/2104/06 Previous Rx's Medication Instructions Recorded furosemide 40 mg tablet 40 mg PO DAILY #90 tab 12/06/20 ciprofloxacin HCl 500 mg tablet 500 mg PO BID 7 Days #14 tab 06/08/21 acetaminophen 500 mg tablet 500 mg PO Q6H PRN #20 tab 08/09/21 (Tylenol Extra Strength) diclofenac sodium 1 % topical gel 2 g TOPICAL QID #100 g 08/09/21 lidocaine 4 % topical patch 1 patch TOPICAL DAILY PRN #30 ea 08/15/21 ondansetron 4 mg disintegrating 4 mg PO Q6-8H PRN #14 tab 08/20/21 tablet Allergies Allergy/AdvReac Type Severity Reaction Status Date / Time tetracycline [Tetracycline] Allergy Mild HIVES, Verified 10/01/21 21:55 anaphylaxis, anaphylaxis Review of Systems Review of Systems: Constitutional : No Weight loss, No Fever, No Chills, No Fatigue, No Malaise ENT/Mouth : No sore throat, No Rhinorrhea Eyes: No Eye Pain, No Swelling, No Redness Cardiovascular : No Chest Pain, No SOB, No Dyspnea on Exertion, No Orthopnea, No Edema, No Palpitations Respiratory : No Cough, No Sputum, No Wheezing Gastrointestinal : No Nausea, No Vomiting, No Diarrhea, No Constipation, No abdominal Pain, No Hematochezia, No Melena Genitourinary : No Dysuria, No Urinary Frequency, No Hematuria, Musculoskeletal : No joint pain, No Myalgias, No Joint Swelling Skin : No Skin Lesions, No rash Neuro : No Weakness, No Numbness, No Dizziness, No Headache Psych : No Anxiety/Panic, No Depression Heme/Lymph: No Bruising, No Bleeding,No Lymphadenopathy Endocrine : No Polyuria, No Polydipsia All other systems reviewed and are negative [facility] Past Medical History Medical History Acute heart failure with preserved ejection fraction Anemia Anxiety Arthritis Cardiac pacemaker in situ Carpal tunnel syndrome CHF (congestive heart failure) Chronic heart failure with preserved ejection fraction (HFpEF) COPD exacerbation Coronary artery disease CVA (cerebral vascular accident) Diabetes Fall Gastritis Gastroparesis Gastroparesis GERD (gastroesophageal reflux disease) Headache HLD (hyperlipidemia) HTN (hypertension) HTN (hypertension) Hypocalcemia Hypoxia IBS (irritable bowel syndrome) Knee pain, left Myocardial infarct Nausea and vomiting Orthostasis Renal failure Suprapatellar effusion of knee T2DM (type 2 diabetes mellitus) UTI (urinary tract infection) Surgical History H/O Achilles tendon repair History of appendectomy History of bladder surgery History of carpal tunnel release History of total hysterectomy with bilateral salpingo-oophorectomy (BSO) Hx of amputation Hx of CABG (~2018) Hx of cholecystectomy Hx of endoscopy Hx of knee surgery Hx of tonsillectomy Family History Family History Father No problems noted. 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 Oriented X3. No acute distress. Eyes: Pupils equal, round and reactive to light. ENT: Pharynx normal. Neck: Normal inspection. Neck supple. CVS: Normal heart rate and rhythm. Pulses normal. Respiratory: No respiratory distress. Breath sounds normal. Abdomen: Soft and non-tender. Skin: Skin warm and dry. Normal skin color. Normal skin turgor. Extremities: No lower extremity edema. No calf ttp Neuro: Oriented X 3. No motor deficit. No sensory deficit. Course Course Course Narrative: signed out to Dr. Vaughn pending labs Medical Decision Making MDM Narrative Medical decision making narrative: 61 yo female with CAD, HTN, DM here with c/o being told by visiting health team today her BS were in 300s and she had ketones in her urine and to get checked out. Lida has no complaints at this time and states she feels fine. Will obtain labs and UA - insulin ordered Lab Data Labs: Lab Results 11/01/21 11/01/21 Range/Units 15:24 15:38 Urine Color STRAW Urine Appearance CLOUDY Urine pH 5.5 (5.0-8.0) Ur Specific Anthony 1.010 (1.005-1.025) Urine Protein 1+ H (NEG-TRACE) MG/DL Urine Glucose (UA) >=1000 H (NEG) MG/DL Urine Ketones NEG (NEG) MG/DL Urine Blood TRACE (NEG) Urine Nitrite NEG (NEG) Ur Leukocyte Esterase 1+ H (NEG) COVID-19 ([facility]) Negative (Negative) COVID-19 Clin Com See Note Discharge Plan Discharge Clinical Impression: Acute hyperglycemia Prescriptions: No Action furosemide 40 mg tablet 40 mg PO DAILY Qty: 90 RF: 3 lorazepam 0.5 mg Tablet 0.5 mg PO BID PRN (Reason: Anxiety) RF: 0 atorvastatin 40 mg Tablet 40 mg PO BEDTIME RF: 0 metoprolol succinate [Toprol XL] 50 mg Tablet Extended Release 24 Hr 50 mg PO DAILY RF: 0 allopurinol 100 mg Tablet 100 mg PO DAILY RF: 0 albuterol sulfate 90 mcg/actuation Hfa Aerosol Inhaler 2 puff INHALATION Q6H PRN (Reason: Shortness Of Breath) RF: 0 Breo Ellipta 100-25 mcg/dose Blister With Device 1 inh INHALATION DAILY PRN (Reason: Shortness Of Breath) RF: 0 aspirin 81 mg Tablet,Delayed Release (Dr/Ec) 81 mg PO DAILY RF: 0 Hold Instructions: Resume on 01/13/21. ciprofloxacin HCl 500 mg tablet 500 mg PO BID 7 Days Qty: 14 RF: 0 tamsulosin 0.4 mg capsule 0.4 mg PO DAILY@1700 RF: 0 ferrous sulfate [iron] 325 mg (65 mg iron) Tablet 325 mg PO DAILY RF: 0 ergocalciferol (vitamin D2) 1,250 mcg (50,000 unit) capsule 1 cap PO SA@1000 RF: 0 amlodipine 5 mg tablet 5 mg PO DAILY RF: 0 insulin aspart U-100 [Novolog Flexpen U-100 Insulin] 100 unit/mL (3 mL) Insulin Pen 5 unit SUBCUT BIDAC RF: 0 loperamide 2 mg Tablet 2 mg PO QID PRN (Reason: Diarrhea) RF: 0 nitroglycerin 0.4 mg Tablet, Sublingual 0.4 mg SUBLINGUAL Q5M PRN (Reason: Chest Pain) RF: 0 melatonin 5 mg Tablet 5 mg PO BEDTIME PRN (Reason: Sleep) RF: 0 pantoprazole 20 mg tablet,delayed release (DR/EC) 1 tab PO DAILY RF: 0 gabapentin 100 mg capsule 200 mg PO TID RF: 0 diclofenac sodium 1 % gel 2 g topical QID Qty: 100 RF: 0 acetaminophen [Tylenol Extra Strength] 500 mg tablet 500 mg PO Q6H PRN (Reason: pain or fever) Qty: 20 RF: 0 ondansetron 4 mg tablet,disintegrating 4 mg PO Q6-8H PRN (Reason: nausea and vomiting) Qty: 14 RF: 0 acetaminophen 500 mg tablet 500 mg PO Q6H PRNRF: 0 metoclopramide HCl 5 mg tablet 5 mg PO QID RF: 0 (DME) pen needle, diabetic 31 gauge x 5/16 needle See Rx Instructions ea subcut .MEDSUPPLY Qty: 1200 RF: 0 cholecalciferol (vitamin D3) 25 mcg (1,000 unit) capsule 25 mcg PO DAILY RF: 0 Tresiba FlexTouch U-100 100 unit/mL (3 mL) insulin pen 12 unit subcut DAILY RF: 0 lidocaine 4 % adhesive patch,medicated 1 patch topical DAILY PRN (Reason: pain) Qty: 30 RF: 0
[2021-11-01 14:19] VITALS: BP 139/77; BP 163/97; PULSE 82; PULSE 88; RESP 16; TEMP 36.7; O2SAT 98; O2SAT 99; BMI 32.7
[2021-11-01] MEDS: Insulin Regular, Human 100 UNIT/ML 3 ML VIAL IVPUSH (15:26)
[2021-11-01 15:56] LABS: Appearance Urine CLOUDY; Color Urine STRAW; Glucose Urine UA >=1000 MG/DL (NEG); Leukocyte Esterase Urine 1+ (NEG); Nitrite Urine NEG (NEG); PH 5.5 (5.0-8.0); UACC Culture Trigger YES; Urine Blood TRACE (NEG); Urine Ketones NEG (NEG); Urine Protein 1+ MG/DL (NEG-TRACE)
[2021-11-01 16:21] LABS: COVID-19 Test Negative (Negative); IDNOW Serial# 9DD0AD1C
[2021-11-01 16:34] LABS: Bacteria Urine 1+ /LPF; RBC Urine 0-2 /HPF (0); Squamous Epithelial Cell Urine TRACE /LPF
[2021-11-01 16:50] VITALS: BP 132/70; PULSE 80; RESP 18; TEMP 36.8; O2SAT 98
[2021-11-01 17:52] LABS: Glucose, Whole Blood 294 mg/dL (60-115)
[2021-11-01 18:14] LABS: MANUAL DIFF FLAG NO
[2021-11-01 18:15] LABS: Basophils Percent Auto 0.3 % (0-2); Eosinophils Absolute Auto 0.3 X10*3/uL (0.0-0.4); Eosinophils Percent Auto 3.6 % (0-4); Hematocrit 34.3 % (37.0-47.0); Hemoglobin 11.5 g/dl (12.0-16.0); Imm Gran Abs Auto 0.07 X10*3/uL (0.00-0.03); Imm Gran Pct Auto 0.8 % (0.0-0.4); Lymphocytes Absolute Auto 1.7 X10*3/uL (1.2-4.9); Lymphocytes Percent Auto 19.3 % (20-40); Mean Corpuscular HGB Conc 33.5 g/dl (31.0-35.0); Mean Corpuscular Hemoglobin 31.3 pg (27.0-33.0); Mean Corpuscular Volume 93.5 fL (80.0-98.0); Mean Platelet Volume 10.3 fL (9.4-12.3); Monocytes Absolute Auto 0.9 X10*3/uL (0.1-1.2); Monocytes Percent Auto 9.6 % (2-11); Neutrophils Percent Auto 66.4 % (45-73); Platelet Count 244 X10*3/uL (160-400); Red Blood Count 3.67 X10*6/uL (4.20-5.50); Red Cell Distribution Width 13.2 % (11.0-16.0)
[2021-11-01 18:17] LABS: Venous Blood Gas Refer to POC result
[2021-11-01 18:18] LABS: VBG Base Excess 2.4 mmol/L; VBG HCO3 25 mmol/L (22-26); VBG pCO2 34 mmHg; VBG pH 7.47 (7.32-7.43); VBG pO2 79 mmHg
[2021-11-01 18:27] LABS: Lactic Acid 2.3 mmol/L (0.5-2.0)
[2021-11-01 18:31] LABS: Acetone, serum QL Negative (Negative)
[2021-11-01 18:32] LABS: Alanine Aminotransferase 17 U/L (0-31); Albumin Level 3.7 g/dL (3.5-5.0); Alkaline Phosphatase 138 U/L (39-117); Anion Gap 14 (12-20); Aspartate Amino Transferase 21 U/L (5-31); Bilirubin Direct < 0.2 mg/dL (0.0-0.5); Bilirubin Total 0.4 mg/dL (0.0-1.0); Blood Urea Nitrogen 41 mg/dL (9-16); Calcium 9.3 mg/dL (8.4-10.2); Carbon Dioxide 25 mmol/L (22-29); Chloride 96 mmol/L (96-108); Creatinine Clr Calc Pharmacy 25.1; Estimated Glomerular Filt Rate 22; Glucose Random 347 mg/dL (60-115); Lipase 30 U/L (8-78); Magnesium 2.2 mg/dL (1.6-2.6); Potassium 5.1 mmol/L (3.3-5.1); Sodium 130 mmol/L (135-145); Total Protein 7.8 g/dL (6.5-8.0)
[2021-11-01] MEDS: 0.9 % Sodium Chloride 1,000 ML 999 ML IVCONT (18:51)
[2021-11-01 20:12] LABS: Reflex Lactate? Lactic Acid Added
[2021-11-01 20:13] LABS: Glucose, Whole Blood 307 mg/dL (60-115)
== END 2021-11-01 20:32 | disposition home or self-care (01) ==
PROVIDERS: Emergency Provider Emergency Medicine
DX: N39.0 Urinary tract infection, site not specified (principal); E11.65 Type 2 diabetes mellitus with hyperglycemia; Z20.822 Contact with and (suspected) exposure to COVID-19; I10 Essential (primary) hypertension; Z87.440 Personal history of urinary (tract) infections; Z79.82 Long term (current) use of aspirin; Z79.899 Other long term (current) drug therapy; Z79.4 Long term (current) use of insulin
CPT/HCPCS: 36415; 80048; 80076; 81001; 82009; 82803; 82947; 83605; 83690; 83735; 85025; 87086; 87088; 87186; 87635; 96361; 96374; 99284

== ENCOUNTER 2021-11-05 06:11 | Outpatient (REF) | payer OTHER, SELFPAY | END 2021-11-05 06:12 | disposition home or self-care (01) | LOC: HO.RADIR 06:11 | PROVIDERS: Visit Provider Internal Medicine | DX: M25.562 Pain in left knee (principal); M17.12 Unilateral primary osteoarthritis, left knee; M25.469 Effusion, unspecified knee; E11.9 Type 2 diabetes mellitus without complications; Z88.1 Allergy status to other antibiotic agents; Z79.4 Long term (current) use of insulin; Z79.899 Other long term (current) drug therapy | CPT/HCPCS: 64624; 64640 ==

== ENCOUNTER 2021-11-17 10:37 | Emergency (ER) | payer OTHER, SELFPAY ==
[2021-11-17 10:52] VITALS: BP 114/71; PULSE 68; O2SAT 97
[2021-11-17 12:47] VITALS: BP 100/51; PULSE 77; RESP 18; TEMP 36.8; O2SAT 96; BMI 31.2
[2021-11-17] MEDS: Ondansetron ODT 4 MG TAB.RAPDIS TRANSLINGU (12:51)
[2021-11-17 14:43] LABS: MANUAL DIFF FLAG NO
[2021-11-17 14:44] LABS: Basophils Percent Auto 0.3 % (0-2); Eosinophils Absolute Auto 0.3 X10*3/uL (0.0-0.4); Eosinophils Percent Auto 2.4 % (0-4); Hematocrit 32.1 % (37.0-47.0); Hemoglobin 10.5 g/dl (12.0-16.0); Imm Gran Abs Auto 0.13 X10*3/uL (0.00-0.03); Imm Gran Pct Auto 1.2 % (0.0-0.4); Lymphocytes Absolute Auto 1.7 X10*3/uL (1.2-4.9); Lymphocytes Percent Auto 15.5 % (20-40); Mean Corpuscular HGB Conc 32.7 g/dl (31.0-35.0); Mean Corpuscular Hemoglobin 31.8 pg (27.0-33.0); Mean Corpuscular Volume 97.3 fL (80.0-98.0); Mean Platelet Volume 9.7 fL (9.4-12.3); Monocytes Absolute Auto 0.7 X10*3/uL (0.1-1.2); Monocytes Percent Auto 6.1 % (2-11); Neutrophils Absolute Auto 8.4 x10*3/uL (2.0-8.3); Neutrophils Percent Auto 74.5 % (45-73); Platelet Count 237 X10*3/uL (160-400); Red Cell Distribution Width 13.2 % (11.0-16.0); White Blood Count 11.2 X10*3/uL (4.8-10.8)
[2021-11-17 14:45] VITALS: BP 109/61; PULSE 77; TEMP 36.9; O2SAT 100
[2021-11-17 14:52] VITALS: BP 109/61; PULSE 77; RESP 16; TEMP 36.9; O2SAT 100
[2021-11-17 15:05] LABS: Alanine Aminotransferase 11 U/L (0-31); Albumin Level 3.7 g/dL (3.5-5.0); Alkaline Phosphatase 127 U/L (39-117); Anion Gap 12 (12-20); Aspartate Amino Transferase 15 U/L (5-31); Bilirubin Direct 0.2 mg/dL (0.0-0.5); Bilirubin Total 0.4 mg/dL (0.0-1.0); Blood Urea Nitrogen 59 mg/dL (9-16); Calcium 9.1 mg/dL (8.4-10.2); Carbon Dioxide 24 mmol/L (22-29); Chloride 104 mmol/L (96-108); Creatinine Clr Calc Pharmacy 23.2; Estimated Glomerular Filt Rate 20; Glucose Random 191 mg/dL (60-115); Lipase 20 U/L (8-78); Potassium 5.1 mmol/L (3.3-5.1); Sodium 135 mmol/L (135-145); Total Protein 7.6 g/dL (6.5-8.0)
== END 2021-11-17 20:26 | disposition left against medical advice (07) ==
LOC: HO.ED 20:12
PROVIDERS: Emergency Provider Emergency Medicine
DX: R11.2 Nausea with vomiting, unspecified (principal); R19.7 Diarrhea, unspecified
CPT/HCPCS: 36415; 80048; 80076; 83690; 85025; 99283

== ENCOUNTER 2021-12-04 02:24 | Emergency (ER) | payer OTHER, SELFPAY ==
--- NOTE | ~2021-12-04 | XR_ITS ---
EXAMINATION: XR CHEST CLINICAL INFORMATION: Chest pain COMPARISON: 07/09/2021 TECHNIQUE: Frontal view of the chest was obtained. FINDINGS: Dual-lead pacemaker stably positioned. Normal symmetric lung volumes. No parenchymal consolidation. No pleural effusion. No pneumothorax. Cardiomediastinal silhouette and pulmonary vascularity are within normal limits. No acute osseous abnormalities. XR/XR chest 1V IMPRESSION: No acute findings.
[2021-12-04 02:34] VITALS: BP 125/88; BP 131/60; PULSE 84; PULSE 88; RESP 22; TEMP 36.6; O2SAT 98; O2SAT 99; BMI 32.9
--- NOTE | 2021-12-04 02:40 | ECG_ITS ---
Test Reason : chest pain Blood Pressure : / mmHG Vent. Rate : 084 BPM Atrial Rate : 084 BPM P-R Int : 226 ms QRS Dur : 118 ms QT Int : 428 ms P-R-T Axes : 000 099 -80 degrees QTc Int : 505 ms Atrial-sensed ventricular-paced rhythm with prolonged AV conduction Abnormal ECG When compared with ECG of 02-OCT-2021 13:23, Vent. rate has decreased BY 15 BPM Referred By: Generic ED Physician Electronically Signed By:STEVE MASON
[2021-12-04 03:08] LABS: COVID-19 Test Positive (Negative); IDNOW Serial# 9DD0AD1C
--- NOTE | 2021-12-04 05:03 | PC.NURSE ---
Blood work was attempted but pt was a hard stick and said that they usually have to get her in the shoulder area.
[2021-12-04 06:17] VITALS: BP 172/67; PULSE 78; RESP 13; O2SAT 98
--- NOTE | 2021-12-04 06:31 | ED_ITS ---
HPI - Chest Pain General Chief Complaint: Chest Pain Stated Complaint: chest pain Time Seen by Provider: 12/04/21 06:22 Source: patient Mode of arrival: EMS Limitations: no limitations History of Present Illness HPI narrative: Patient comes emergency room complaining of chest pain that started approximately 4-1/2 to 5 hours ago. Patient states that she woke up and noticed that she had pain. Patient states that the discomfort radiates to the left side. Patient states the very mild. Patient denies any URI symptoms, no nausea or vomiting. Patient denies palpitations, no shortness of breath, no calf pain or swelling. Related Data Home Medications Medication Instructions Recorded Confirmed lorazepam 0.5 mg tablet 0.5 mg PO BID PRN 09/14/20 11/05/21 albuterol sulfate 90 mcg/actuation 2 puff INHALATION Q6H PRN 09/16/20 11/05/21 aerosol inhaler allopurinol 100 mg tablet 100 mg PO DAILY 09/16/20 11/05/21 aspirin 81 mg tablet,delayed 81 mg PO DAILY 09/16/20 11/05/21 release atorvastatin 40 mg tablet 40 mg PO BEDTIME 09/16/20 11/05/21 fluticasone furoate 100 1 inh INHALATION DAILY PRN 09/16/20 11/05/21 mcg-vilanterol 25 mcg/dose inhalation powder (Breo Ellipta) metoprolol succinate 50 mg 50 mg PO DAILY 09/16/20 11/05/21 tablet,extended release 24 hr (Toprol XL) insulin degludec 100 unit/mL (3 12 unit SUBCUT DAILY ml 11/13/20 11/05/21 mL) subcutaneous pen (Tresiba FlexTouch U-100 insulin) amlodipine 5 mg tablet 5 mg PO DAILY 12/22/20 11/05/21 ergocalciferol (vitamin D2) 1,250 1 cap PO SA@1000 12/22/20 11/05/21 mcg (50,000 unit) capsule ferrous sulfate 325 mg (65 mg 325 mg PO DAILY 12/22/20 11/05/21 iron) tablet (iron) tamsulosin 0.4 mg capsule 0.4 mg PO DAILY@1700 12/22/20 11/05/21 insulin aspart U-100 100 unit/mL 5 unit SUBCUT BIDAC 01/08/21 11/05/21 (3 mL) subcutaneous pen (Novolog Flexpen U-100 Insulin aspart) loperamide 2 mg tablet 2 mg PO QID PRN 01/08/21 11/05/21 melatonin 5 mg tablet 5 mg PO BEDTIME PRN 01/08/21 11/05/21 nitroglycerin 0.4 mg sublingual 0.4 mg SUBLINGUAL Q5M PRN 01/08/21 11/05/21 tablet gabapentin 100 mg capsule 200 mg PO TID 03/06/21 11/05/21 pantoprazole 20 mg tablet,delayed 1 tab PO DAILY 03/06/21 11/05/21 release acetaminophen 500 mg tablet 500 mg PO Q6H PRN 03/20/21 11/05/21 cholecalciferol (vitamin D3) 25 25 mcg PO DAILY 03/20/21 11/05/21 mcg (1,000 unit) capsule metoclopramide HCl 5 mg tablet 5 mg PO QID 03/20/21 11/05/21 pen needle, diabetic 31 gauge x #1200 ea 03/20/21 11/05/2104/06 Previous Rx's Medication Instructions Recorded furosemide 40 mg tablet 40 mg PO DAILY #90 tab 12/06/20 ciprofloxacin HCl 500 mg tablet 500 mg PO BID 7 Days #14 tab 06/08/21 acetaminophen 500 mg tablet 500 mg PO Q6H PRN #20 tab 08/09/21 (Tylenol Extra Strength) diclofenac sodium 1 % topical gel 2 g TOPICAL QID #100 g 08/09/21 lidocaine 4 % topical patch 1 patch TOPICAL DAILY PRN #30 ea 08/15/21 ondansetron 4 mg disintegrating 4 mg PO Q6-8H PRN #14 tab 08/20/21 tablet nitrofurantoin 100 mg PO Q12H 7 Days #14 cap 11/05/21 monohydrate/macrocrystals 100 mg capsule (Macrobid) Allergies Allergy/AdvReac Type Severity Reaction Status Date / Time tetracycline [Tetracycline] Allergy Mild HIVES, Verified 11/17/21 12:47 anaphylaxis, anaphylaxis Review of Systems Review of Systems: Constitutional : No Weight loss, No Fever, No Chills, No Night Sweats, No Fatigue, No Malaise ENT/Mouth : No Hearing loss, No Ear Pain, No Nasal Congestion, No Sinus Pain, No Hoarseness, No sore throat, No Rhinorrhea, No Swallowing Difficulty Eyes: No Eye Pain, No Swelling, No Redness, No Foreign Body, No Discharge, No Vision Changes Cardiovascular : Complaining of chest pain/discomfort for 5 hours. No SOB, No Dyspnea on Exertion, No Orthopnea, No Edema, No Palpitations Respiratory : No Cough, No Sputum, No Wheezing, No Smoke Exposure, No Dyspnea Gastrointestinal : No Nausea, No Vomiting, No Diarrhea, No Constipation, No abdominal Pain, No Hematochezia, No Melena Genitourinary : no irregular bleeding, No Dysuria, No Urinary Frequency, No Hematuria, No Urinary Incontinence, No Urgency, No Flank Pain, No Urinary Flow Changes, No Hesitancy Musculoskeletal : No joint pain, No Myalgias, No Joint Swelling Skin : No Skin Lesions, No rash Neuro : No Weakness, No Numbness, No Paresthesias, No Loss of Consciousness, No Dizziness, No Headache Psych : No Anxiety/Panic, No Depression, No SI/HI/AH/VH, No Social Issues, Heme/Lymph: No Bruising, No Bleeding,No Lymphadenopathy Endocrine : No Polyuria, No Polydipsia, No Temperature Intolerance [facility] Past Medical History Medical History Acute heart failure with preserved ejection fraction Anemia Anxiety Arthritis Cardiac pacemaker in situ Carpal tunnel syndrome CHF (congestive heart failure) Chronic heart failure with preserved ejection fraction (HFpEF) COPD exacerbation Coronary artery disease CVA (cerebral vascular accident) Diabetes Fall Gastritis Gastroparesis Gastroparesis GERD (gastroesophageal reflux disease) Headache HLD (hyperlipidemia) HTN (hypertension) HTN (hypertension) Hypocalcemia Hypoxia IBS (irritable bowel syndrome) Knee pain, left Myocardial infarct Nausea and vomiting Orthostasis Renal failure Suprapatellar effusion of knee T2DM (type 2 diabetes mellitus) UTI (urinary tract infection) Surgical History H/O Achilles tendon repair History of appendectomy History of bladder surgery History of carpal tunnel release History of total hysterectomy with bilateral salpingo-oophorectomy (BSO) Hx of amputation Hx of CABG (~2019) Hx of cholecystectomy Hx of endoscopy Hx of knee surgery Hx of tonsillectomy Family History Family History Father No problems noted. 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 Oriented X3. No acute distress. Well- appearing Eyes: Pupils equal, round and reactive to light. ENT: Pharynx normal. Neck: Normal inspection. Neck supple. No lymph nodes noted. No crepitus CVS: Normal heart rate and rhythm. Pulses normal. Normal S1 and S2 Respiratory: No respiratory distress. Breath sounds normal. Very mild occasional wheezing in both lungs, good air movement, No rales Abdomen: Soft and nontender. No rigidity. No distention. Skin: Skin warm and dry. Normal skin color. Normal skin turgor. Extremities: No lower extremity edema. No Lacerations. No Rash Neuro: Oriented X 3. No motor deficit. No sensory deficit. Moving all extermities. No slurred speech. Course Course Course Narrative: I discussed with the patient that she tested positive for COVID-19. Patient is very surprised. Patient does not have any URI symptoms. Patient concerned that she lives with her granddaughter who is currently . I discussed with the patient that if her granddaughter tests positive, she is likely a candidate for monoclonal antibody infusion. I discussed the above-mentioned with the patient, patient agrees to be referred to the clinic. Information has been emailed to the clinic. Patient's creatinine and troponin are at baseline. At this time, patient is well-appearing, has no chest pain. Shortness of breath MDM - Chest Pain Lab Data Result diagrams: 12/04/21 09:02 12/04/21 09:01 Labs: Lab Results 12/04/21 12/04/21 12/04/21 Range/Units 02:56 09:01 09:02 WBC 10.9 H (4.8-10.8) X10*3/uL RBC 3.48 L (4.20-5.50) X10*6/uL Hgb 11.0 L (12.0-16.0) g/dl Hct 33.9 L (37.0-47.0) % MCV 97.4 (80.0-98.0) fL MCH 31.6 (27.0-33.0) pg MCHC 32.4 (31.0-35.0) g/dl RDW 13.6 (11.0-16.0) % Plt Count 235 (160-400) X10*3/uL MPV 9.9 (9.4-12.3) fL Immature Gran % (Auto) 0.6 H (0.0-0.4) % Neut % (Auto) 72.5 (45-73) % Lymph % (Auto) 17.8 L (20-40) % [place] % (Auto) 6.3 (2-11) % Eos % (Auto) 2.5 (0-4) % Baso % (Auto) 0.3 (0-2) % Lymph # (Auto) 1.9 (1.2-4.9) X10*3/uL [place] # (Auto) 0.7 (0.1-1.2) X10*3/uL Eos # (Auto) 0.3 (0.0-0.4) X10*3/uL Baso # (Auto) 0.0 (0.0-0.2) X10*3/uL Abs Immat Gran (auto) 0.07 H (0.00-0.03) X10*3/uL Absolute Neuts (auto) 7.9 (2.0-8.3) x10*3/uL Absolute Nucleated RBC 0.000 (0.0-0.012) X10*3/uL Nucleated RBC % (auto) 0.0 (0.0-0.2) /100WBC Sodium 137 (135-145) mmol/L Potassium 4.8 (3.3-5.1) mmol/L Chloride 102 (96-108) mmol/L Carbon Dioxide 27 (22-29) mmol/L Anion Gap 13 (12-20) BUN 54 H (9-16) mg/dL Creatinine 2.71 H (0.5-1.4) mg/dL Estim Creat Clear Calc 21.0 Estimated GFR 18 Random Glucose 239 H (60-115) mg/dL Calcium 8.9 (8.4-10.2) mg/dL Troponin I High Sens (<3.5-17.0) ng/L COVID-19 ([facility]) Positive A (Negative) COVID-19 Clin Com See Note 12/04/21 Range/Units 09:02 WBC (4.8-10.8) X10*3/uL RBC (4.20-5.50) X10*6/uL Hgb (12.0-16.0) g/dl Hct (37.0-47.0) % MCV (80.0-98.0) fL MCH (27.0-33.0) pg MCHC (31.0-35.0) g/dl RDW (11.0-16.0) % Plt Count (160-400) X10*3/uL MPV (9.4-12.3) fL Immature Gran % (Auto) (0.0-0.4) % Neut % (Auto) (45-73) % Lymph % (Auto) (20-40) % [place] % (Auto) (2-11) % Eos % (Auto) (0-4) % Baso % (Auto) (0-2) % Lymph # (Auto) (1.2-4.9) X10*3/uL [place] # (Auto) (0.1-1.2) X10*3/uL Eos # (Auto) (0.0-0.4) X10*3/uL Baso # (Auto) (0.0-0.2) X10*3/uL Abs Immat Gran (auto) (0.00-0.03) X10*3/uL Absolute Neuts (auto) (2.0-8.3) x10*3/uL Absolute Nucleated RBC (0.0-0.012) X10*3/uL Nucleated RBC % (auto) (0.0-0.2) /100WBC Sodium (135-145) mmol/L Potassium (3.3-5.1) mmol/L Chloride (96-108) mmol/L Carbon Dioxide (22-29) mmol/L Anion Gap (12-20) BUN (9-16) mg/dL Creatinine (0.5-1.4) mg/dL Estim Creat Clear Calc Estimated GFR Random Glucose (60-115) mg/dL Calcium (8.4-10.2) mg/dL Troponin I High Sens 13.0 (<3.5-17.0) ng/L COVID-19 ([facility]) (Negative) COVID-19 Clin Com Discharge Plan Discharge Clinical Impression: Atypical chest pain, COVID-19 Patient Disposition: Home, Self-Care Instructions: COVID-19 (Coronavirus Disease 2019) (ED), Chest Pain (ED) Additional Instructions: You tested positive for COVID-19. You need to quarantine for 7 days. Please call the COVID-19 mono clonal clinic for details about your appointment. Please have your immediate family tested for COVID-19. Please follow-up with your primary care physician tomorrow. If you have any worsening or new symptoms, please return to the emergency room or call 911 Prescriptions: No Action furosemide 40 mg tablet 40 mg PO DAILY Qty: 90 RF: 3 lorazepam 0.5 mg Tablet 0.5 mg PO BID PRN (Reason: Anxiety) RF: 0 atorvastatin 40 mg Tablet 40 mg PO BEDTIME RF: 0 metoprolol succinate [Toprol XL] 50 mg Tablet Extended Release 24 Hr 50 mg PO DAILY RF: 0 allopurinol 100 mg Tablet 100 mg PO DAILY RF: 0 albuterol sulfate 90 mcg/actuation Hfa Aerosol Inhaler 2 puff INHALATION Q6H PRN (Reason: Shortness Of Breath) RF: 0 Breo Ellipta 100-25 mcg/dose Blister With Device 1 inh INHALATION DAILY PRN (Reason: Shortness Of Breath) RF: 0 aspirin 81 mg Tablet,Delayed Release (Dr/Ec) 81 mg PO DAILY RF: 0 Hold Instructions: Resume on 01/13/21. ciprofloxacin HCl 500 mg tablet 500 mg PO BID 7 Days Qty: 14 RF: 0 tamsulosin 0.4 mg capsule 0.4 mg PO DAILY@1700 RF: 0 ferrous sulfate [iron] 325 mg (65 mg iron) Tablet 325 mg PO DAILY RF: 0 ergocalciferol (vitamin D2) 1,250 mcg (50,000 unit) capsule 1 cap PO SA@1000 RF: 0 amlodipine 5 mg tablet 5 mg PO DAILY RF: 0 insulin aspart U-100 [Novolog Flexpen U-100 Insulin] 100 unit/mL (3 mL) Insulin Pen 5 unit SUBCUT BIDAC RF: 0 loperamide 2 mg Tablet 2 mg PO QID PRN (Reason: Diarrhea) RF: 0 nitroglycerin 0.4 mg Tablet, Sublingual 0.4 mg SUBLINGUAL Q5M PRN (Reason: Chest Pain) RF: 0 melatonin 5 mg Tablet 5 mg PO BEDTIME PRN (Reason: Sleep) RF: 0 pantoprazole 20 mg tablet,delayed release (DR/EC) 1 tab PO DAILY RF: 0 gabapentin 100 mg capsule 200 mg PO TID RF: 0 diclofenac sodium 1 % gel 2 g topical QID Qty: 100 RF: 0 acetaminophen [Tylenol Extra Strength] 500 mg tablet 500 mg PO Q6H PRN (Reason: pain or fever) Qty: 20 RF: 0 nitrofurantoin monohyd/m-cryst [Macrobid] 100 mg capsule 100 mg PO Q12H 7 Days Qty: 14 RF: 0 ondansetron 4 mg tablet,disintegrating 4 mg PO Q6-8H PRN (Reason: nausea and vomiting) Qty: 14 RF: 0 acetaminophen 500 mg tablet 500 mg PO Q6H PRNRF: 0 metoclopramide HCl 5 mg tablet 5 mg PO QID RF: 0 (DME) pen needle, diabetic 31 gauge x 5/16 needle See Rx Instructions ea subcut .MEDSUPPLY Qty: 1200 RF: 0 cholecalciferol (vitamin D3) 25 mcg (1,000 unit) capsule 25 mcg PO DAILY RF: 0 Tresiba FlexTouch U-100 100 unit/mL (3 mL) insulin pen 12 unit subcut DAILY RF: 0 lidocaine 4 % adhesive patch,medicated 1 patch topical DAILY PRN (Reason: pain) Qty: 30 RF: 0
[2021-12-04 07:15] VITALS: BP 186/79; PULSE 84; RESP 16; TEMP 36.8; O2SAT 98
--- NOTE | 2021-12-04 07:38 | PC.NURSE ---
pt states that she was given 4 baby asa by ems prior to arrival to er.
[2021-12-04 07:51] VITALS: BP 166/71; PULSE 83; RESP 13; O2SAT 97
[2021-12-04 09:10] LABS: MANUAL DIFF FLAG NO
[2021-12-04 09:14] LABS: Basophils Percent Auto 0.3 % (0-2); Eosinophils Absolute Auto 0.3 X10*3/uL (0.0-0.4); Eosinophils Percent Auto 2.5 % (0-4); Hematocrit 33.9 % (37.0-47.0); Imm Gran Abs Auto 0.07 X10*3/uL (0.00-0.03); Imm Gran Pct Auto 0.6 % (0.0-0.4); Lymphocytes Absolute Auto 1.9 X10*3/uL (1.2-4.9); Lymphocytes Percent Auto 17.8 % (20-40); Mean Corpuscular HGB Conc 32.4 g/dl (31.0-35.0); Mean Corpuscular Hemoglobin 31.6 pg (27.0-33.0); Mean Corpuscular Volume 97.4 fL (80.0-98.0); Mean Platelet Volume 9.9 fL (9.4-12.3); Monocytes Absolute Auto 0.7 X10*3/uL (0.1-1.2); Monocytes Percent Auto 6.3 % (2-11); Neutrophils Absolute Auto 7.9 x10*3/uL (2.0-8.3); Neutrophils Percent Auto 72.5 % (45-73); Platelet Count 235 X10*3/uL (160-400); Red Blood Count 3.48 X10*6/uL (4.20-5.50); Red Cell Distribution Width 13.6 % (11.0-16.0); White Blood Count 10.9 X10*3/uL (4.8-10.8)
[2021-12-04 09:23] VITALS: BP 157/70; PULSE 85; RESP 15; TEMP 37.1; O2SAT 98
[2021-12-04 09:27] LABS: Anion Gap 13 (12-20); Blood Urea Nitrogen 54 mg/dL (9-16); Calcium 8.9 mg/dL (8.4-10.2); Carbon Dioxide 27 mmol/L (22-29); Chloride 102 mmol/L (96-108); Estimated Glomerular Filt Rate 18; Glucose Random 239 mg/dL (60-115); Potassium 4.8 mmol/L (3.3-5.1); Sodium 137 mmol/L (135-145)
[2021-12-04 09:31] LABS: Appearance Urine CLOUDY; Color Urine YELLOW; Glucose Urine UA 250 MG/DL (NEG); Leukocyte Esterase Urine 1+ (NEG); Nitrite Urine NEG (NEG); PH 6.5 (5.0-8.0); Specific Gravity - Urine 1.015 (1.005-1.025); UACC Culture Trigger YES; Urine Blood NEG (NEG); Urine Ketones NEG (NEG); Urine Protein 1+ MG/DL (NEG-TRACE)
[2021-12-04 09:52] LABS: Bacteria Urine 3+ /LPF; RBC Urine 0 /HPF (0); Squamous Epithelial Cell Urine 1+ /LPF; UACC CULT YES; WBC Urine 30-49 /HPF (0-4)
[2021-12-04 09:53] LABS: WBC Clumps Urine NOTED
[2021-12-04 10:04] VITALS: BP 140/77; PULSE 82; RESP 12; O2SAT 98
== END 2021-12-04 11:53 | disposition home or self-care (01) ==
PROVIDERS: Emergency Provider Emergency Medicine
DX: U07.1 COVID-19 (principal); R07.89 Other chest pain; E11.9 Type 2 diabetes mellitus without complications; I10 Essential (primary) hypertension; E78.5 Hyperlipidemia, unspecified; I25.2 Old myocardial infarction; Z95.1 Presence of aortocoronary bypass graft; Z89.9 Acquired absence of limb, unspecified; Z86.73 Personal history of transient ischemic attack (TIA), and cerebral infarction without residual deficits; Z79.899 Other long term (current) drug therapy; Z79.02 Long term (current) use of antithrombotics/antiplatelets; Z79.82 Long term (current) use of aspirin; Z79.4 Long term (current) use of insulin
CPT/HCPCS: 36415; 71045; 80048; 81001; 84484; 85025; 87086; 87088; 87186; 87635; 93005; 99284; 99285

== ENCOUNTER 2021-12-14 00:44 | Emergency (ER) | payer OTHER, SELFPAY ==
[2021-12-14 00:47] VITALS: BP 110/59; BP 114/70; PULSE 86; PULSE 88; RESP 18; TEMP 36.8; O2SAT 100; O2SAT 96; BMI 32.9
[2021-12-14 04:40] VITALS: BP 145/63; PULSE 87; RESP 18; O2SAT 95
--- NOTE | 2021-12-14 05:39 | ED_ITS ---
HPI - General Adult General Chief complaint: General Medical Stated complaint: body aches/diarrhea x2 days (covid recovered) Time Seen by Provider: 12/14/21 05:37 Source: patient Mode of arrival: EMS History of Present Illness HPI narrative: 61-year-old female who presents with generalized body aches and complaints of 1-2 episodes of nonbloody diarrhea a day and who was diagnosed with COVID-19 on 12/04/2021. Otherwise, she denies any fever or chills, denies any nausea or vomiting and also complaints atraumatic pain on the dorsal aspect of her left foot. Related Data Home Medications Medication Instructions Recorded Confirmed lorazepam 0.5 mg tablet 0.5 mg PO BID PRN 09/14/20 11/05/21 albuterol sulfate 90 mcg/actuation 2 puff INHALATION Q6H PRN 09/16/20 11/05/21 aerosol inhaler allopurinol 100 mg tablet 100 mg PO DAILY 09/16/20 11/05/21 aspirin 81 mg tablet,delayed 81 mg PO DAILY 09/16/20 11/05/21 release atorvastatin 40 mg tablet 40 mg PO BEDTIME 09/16/20 11/05/21 fluticasone furoate 100 1 inh INHALATION DAILY PRN 09/16/20 11/05/21 mcg-vilanterol 25 mcg/dose inhalation powder (Breo Ellipta) metoprolol succinate 50 mg 50 mg PO DAILY 09/16/20 11/05/21 tablet,extended release 24 hr (Toprol XL) insulin degludec 100 unit/mL (3 12 unit SUBCUT DAILY ml 11/13/20 11/05/21 mL) subcutaneous pen (Tresiba FlexTouch U-100 insulin) amlodipine 5 mg tablet 5 mg PO DAILY 12/22/20 11/05/21 ergocalciferol (vitamin D2) 1,250 1 cap PO SA@1000 12/22/20 11/05/21 mcg (50,000 unit) capsule ferrous sulfate 325 mg (65 mg 325 mg PO DAILY 12/22/20 11/05/21 iron) tablet (iron) tamsulosin 0.4 mg capsule 0.4 mg PO DAILY@1700 12/22/20 11/05/21 insulin aspart U-100 100 unit/mL 5 unit SUBCUT BIDAC 01/08/21 11/05/21 (3 mL) subcutaneous pen (Novolog Flexpen U-100 Insulin aspart) loperamide 2 mg tablet 2 mg PO QID PRN 01/08/21 11/05/21 melatonin 5 mg tablet 5 mg PO BEDTIME PRN 01/08/21 11/05/21 nitroglycerin 0.4 mg sublingual 0.4 mg SUBLINGUAL Q5M PRN 01/08/21 11/05/21 tablet gabapentin 100 mg capsule 200 mg PO TID 03/06/21 11/05/21 pantoprazole 20 mg tablet,delayed 1 tab PO DAILY 03/06/21 11/05/21 release acetaminophen 500 mg tablet 500 mg PO Q6H PRN 03/20/21 11/05/21 cholecalciferol (vitamin D3) 25 25 mcg PO DAILY 03/20/21 11/05/21 mcg (1,000 unit) capsule metoclopramide HCl 5 mg tablet 5 mg PO QID 03/20/21 11/05/21 pen needle, diabetic 31 gauge x #1200 ea 03/20/21 11/05/2104/06 Previous Rx's Medication Instructions Recorded furosemide 40 mg tablet 40 mg PO DAILY #90 tab 12/06/20 ciprofloxacin HCl 500 mg tablet 500 mg PO BID 7 Days #14 tab 06/08/21 acetaminophen 500 mg tablet 500 mg PO Q6H PRN #20 tab 08/09/21 (Tylenol Extra Strength) diclofenac sodium 1 % topical gel 2 g TOPICAL QID #100 g 08/09/21 lidocaine 4 % topical patch 1 patch TOPICAL DAILY PRN #30 ea 08/15/21 ondansetron 4 mg disintegrating 4 mg PO Q6-8H PRN #14 tab 08/20/21 tablet nitrofurantoin 100 mg PO Q12H 7 Days #14 cap 11/05/21 monohydrate/macrocrystals 100 mg capsule (Macrobid) cefuroxime axetil 250 mg tablet 250 mg PO BID 7 Days #14 tab 12/08/21 Allergies Allergy/AdvReac Type Severity Reaction Status Date / Time tetracycline [Tetracycline] Allergy Mild HIVES, Verified 12/14/21 00:47 anaphylaxis, anaphylaxis Review of Systems Review of Systems: Pertinent positives and negatives as stated in HPI 10 point review of systems is otherwise negative. [facility] Past Medical History Source: nursing notes reviewed Medical History Acute heart failure with preserved ejection fraction Anemia Anxiety Arthritis Cardiac pacemaker in situ Carpal tunnel syndrome CHF (congestive heart failure) Chronic heart failure with preserved ejection fraction (HFpEF) COPD exacerbation Coronary artery disease CVA (cerebral vascular accident) Diabetes Fall Gastritis Gastroparesis Gastroparesis GERD (gastroesophageal reflux disease) Headache HLD (hyperlipidemia) HTN (hypertension) HTN (hypertension) Hypocalcemia Hypoxia IBS (irritable bowel syndrome) Knee pain, left Myocardial infarct Nausea and vomiting Orthostasis Renal failure Suprapatellar effusion of knee T2DM (type 2 diabetes mellitus) UTI (urinary tract infection) Surgical History H/O Achilles tendon repair History of appendectomy History of bladder surgery History of carpal tunnel release History of total hysterectomy with bilateral salpingo-oophorectomy (BSO) Hx of amputation Hx of CABG (~2019) Hx of cholecystectomy Hx of endoscopy Hx of knee surgery Hx of tonsillectomy Family History Family History Father No problems noted. Mother Diabetes Hypercholesteremia Hypertension Stroke Social History Social History Household Members: Family Household Members Other:: 1 Housing: Apartment Do you presently have visiting nurse or other home services: Yes (customer support manager, [facility]) Alcohol intake: never Patient Tobacco Use Status: Never used Tobacco Years Smoked: 20 Second Hand Smoke Exposure: No Use of substances other than those prescribed or required for medical reasons: No Advance Directives: No Advance Directives Information Provided: No Patient : No service: No Current occupational status: disabled Physical Exam Vital Signs: Vital Signs: Last Vital Signs Temp 98.3 F 12/14/21 00:47 Pulse 92 12/14/21 05:56 Resp 18 12/14/21 05:56 BP 160/84 H 12/14/21 05:56 Pulse Ox 98 12/14/21 05:56 BMI result Body Mass Index 32.9 VITAL SIGNS: Reviewed. GENERAL: Chronically ill, in no acute distress patient was resting comfortably in the gurney during interview HEAD: Normocephalic/atraumatic EYES: PERRLA, EOMI l OROPHARYNX: no oral lesions noted, posterior pharynx clear LUNGS: Normal breath sounds. No adventitious sounds or accessory muscle use. SpO2<98> CARDIOVASCULAR: Regular rate and rhythm without noted murmurs, no JVD or lower extremity edema. ABDOMEN: Soft, non-tender, non-distended with bowel sounds. LEFT LOWER EXTREMITY: Foot is status post TMA and there is no evidence of erythema, induration, skin is warm and dry. NEUROLOGIC: Alert and oriented x 4. Strength and sensation to light touch were grossly intact x 4. Course Course Course Narrative: This is a 61-year-old female who presents with body aches and left foot pain that does not appear to be infected and is otherwise neurovascularly intact. Patient is afebrile, and noted to be resting comfortably on the gurney in no acute distress. Patient is able to eat and drink without difficulty. Patient was treated with analgesics and a lidocaine patch and on re-evaluation noted some improvement in her pain. She is otherwise discharged home in stable condition and instructed to continue to treat her residual pain with [id number] Tylenol and ibuprofen. Discharge Plan Discharge Clinical Impression: Ongoing symptomatic disease due to COVID-19 virus Patient Disposition: Home, Self-Care Instructions: Viral Syndrome (ED) Additional Instructions: 1. Resume all home medication as prescribed. 2. Increase fluid hydration especially with water. 3. Recommend [id number] Tylenol/ibuprofen as needed for body aches. 4. Follow-up with your primary care provider tomorrow morning for re-evaluation and further outpatient management. Return to the ER for any worsening symptoms. Prescriptions: No Action furosemide 40 mg tablet 40 mg PO DAILY Qty: 90 RF: 3 lorazepam 0.5 mg Tablet 0.5 mg PO BID PRN (Reason: Anxiety) RF: 0 atorvastatin 40 mg Tablet 40 mg PO BEDTIME RF: 0 metoprolol succinate [Toprol XL] 50 mg Tablet Extended Release 24 Hr 50 mg PO DAILY RF: 0 allopurinol 100 mg Tablet 100 mg PO DAILY RF: 0 albuterol sulfate 90 mcg/actuation Hfa Aerosol Inhaler 2 puff INHALATION Q6H PRN (Reason: Shortness Of Breath) RF: 0 Breo Ellipta 100-25 mcg/dose Blister With Device 1 inh INHALATION DAILY PRN (Reason: Shortness Of Breath) RF: 0 aspirin 81 mg Tablet,Delayed Release (Dr/Ec) 81 mg PO DAILY RF: 0 Hold Instructions: Resume on 01/13/21. ciprofloxacin HCl 500 mg tablet 500 mg PO BID 7 Days Qty: 14 RF: 0 tamsulosin 0.4 mg capsule 0.4 mg PO DAILY@1700 RF: 0 ferrous sulfate [iron] 325 mg (65 mg iron) Tablet 325 mg PO DAILY RF: 0 ergocalciferol (vitamin D2) 1,250 mcg (50,000 unit) capsule 1 cap PO SA@1000 RF: 0 amlodipine 5 mg tablet 5 mg PO DAILY RF: 0 insulin aspart U-100 [Novolog Flexpen U-100 Insulin] 100 unit/mL (3 mL) Insulin Pen 5 unit SUBCUT BIDAC RF: 0 loperamide 2 mg Tablet 2 mg PO QID PRN (Reason: Diarrhea) RF: 0 nitroglycerin 0.4 mg Tablet, Sublingual 0.4 mg SUBLINGUAL Q5M PRN (Reason: Chest Pain) RF: 0 melatonin 5 mg Tablet 5 mg PO BEDTIME PRN (Reason: Sleep) RF: 0 pantoprazole 20 mg tablet,delayed release (DR/EC) 1 tab PO DAILY RF: 0 gabapentin 100 mg capsule 200 mg PO TID RF: 0 diclofenac sodium 1 % gel 2 g topical QID Qty: 100 RF: 0 acetaminophen [Tylenol Extra Strength] 500 mg tablet 500 mg PO Q6H PRN (Reason: pain or fever) Qty: 20 RF: 0 nitrofurantoin monohyd/m-cryst [Macrobid] 100 mg capsule 100 mg PO Q12H 7 Days Qty: 14 RF: 0 cefuroxime axetil 250 mg tablet 250 mg PO BID 7 Days Qty: 14 RF: 0 ondansetron 4 mg tablet,disintegrating 4 mg PO Q6-8H PRN (Reason: nausea and vomiting) Qty: 14 RF: 0 acetaminophen 500 mg tablet 500 mg PO Q6H PRNRF: 0 metoclopramide HCl 5 mg tablet 5 mg PO QID RF: 0 (DME) pen needle, diabetic 31 gauge x 5/16 needle See Rx Instructions ea subcut .MEDSUPPLY Qty: 1200 RF: 0 cholecalciferol (vitamin D3) 25 mcg (1,000 unit) capsule 25 mcg PO DAILY RF: 0 Tresiba FlexTouch U-100 100 unit/mL (3 mL) insulin pen 12 unit subcut DAILY RF: 0 lidocaine 4 % adhesive patch,medicated 1 patch topical DAILY PRN (Reason: pain) Qty: 30 RF: 0
[2021-12-14] MEDS: Acetaminophen 325 MG TABLET 975 MG PO (05:52)
[2021-12-14] MEDS: Lidocaine 4 % Patch ADH..PATCH 1 PATCH TRANSDERMA (05:54)
[2021-12-14 05:56] VITALS: BP 160/84; PULSE 92; RESP 18; O2SAT 98
--- NOTE | 2021-12-14 07:10 | PC.NURSE ---
pt sts having no ride home at this time, pt is bl partial le amputee. will book transport home.
== END 2021-12-14 08:05 | disposition home or self-care (01) ==
PROVIDERS: Emergency Provider Student in an Organized Health Care Education/Training Program
DX: M79.10 Myalgia, unspecified site (principal); M79.672 Pain in left foot; R19.7 Diarrhea, unspecified; Z79.899 Other long term (current) drug therapy; Z87.891 Personal history of nicotine dependence
CPT/HCPCS: 99284

== ENCOUNTER 2021-12-27 11:47 | Emergency (ER) | payer OTHER, SELFPAY ==
[2021-12-27] VITALS (9 sets, daily range): BP systolic 90–186; BP diastolic 47–80; PULSE 80–95; RESP 12–19; TEMP 36.8–37.1; O2SAT 89–100; BMI 32.7; BMI 35.2
--- NOTE | ~2021-12-27 | CT_ITS ---
EXAM: CT THORAX WITHOUT CONTRAST. CT ABDOMEN/PELVIS WITHOUT CONTRAST. CLINICAL INFORMATION: Chest pain. Epigastric pain and diarrhea. COMPARISON: CT of the abdomen and pelvis 08/20/2021, chest x-ray 07/09/2021. TECHNIQUE: A multidetector CT without contrast was performed utilizing 0.625 mm axial collimation from the neck to the pelvis. Sagittal and Coronal reformats were completed at an independent workstation. This CT examination was performed using dose optimization techniques as appropriate, variously including the following: * Automated exposure control * Adjustment of mA and/or kV according to patient size (this includes techniques or standardized protocols for targeted exams where dose is matched to indication/reason for exam; i.e. extremities or head) * Use of iterative reconstruction technique DLP: 323 mGy-cm (CT of the chest) 694 mGy-cm (CT of the abdomen and pelvis) FINDINGS: CHEST: LUNG: No focal consolidation, nodules or masses. PLEURA: No pleural effusion or pneumothorax. MEDIASTINUM: Mild cardiomegaly. Intracardiac leads from left-sided pacemaker device are visible. No pericardial effusion. No significant hilar or mediastinal lymphadenopathy. The esophagus is mildly distended with an internal air-fluid level. CHEST WALL/AXILLA: No axillary or internal mammary lymphadenopathy. There has been a prior median sternotomy, with wires intact. ABDOMEN AND PELVIS: LIVER, GALLBLADDER, AND BILIARY TREE: The liver is normal in size, shape, and attenuation. No focal hepatic lesion or biliary ductal dilatation is present. The gallbladder is surgically absent. PANCREAS: There is fatty atrophy of the pancreas. No focal abnormality.. SPLEEN: Unremarkable. ADRENAL GLANDS: Unremarkable. KIDNEYS AND URETERS: The nonenhanced kidneys are normal in size, shape, and attenuation. No hydronephrosis, hydroureter, or calculi seen. No perinephric stranding. BLADDER: No bladder wall thickening. No bladder calculi. GASTROINTESTINAL TRACT: The stomach is unremarkable. The small bowel is of normal caliber. No evidence for obstruction. The colon is normal in appearance without focal wall thickening or pericolonic inflammatory change. The appendix is not visualized, however there are no pericecal inflammatory changes. ABDOMINAL WALL: Again seen is a fat-containing ventral supraumbilical abdominal wall hernia. Neurostimulator device projects over the right flank. LYMPHOVASCULAR STRUCTURES: No lymphadenopathy. The aorta is normal in caliber. Atherosclerotic calcifications of the abdominal aorta, mesenteric branches, and iliac arteries. There are atherosclerotic calcifications of the proximal femoral arteries.. PELVIC VISCERA: The uterus is surgically absent. No adnexal mass. OSSEOUS STRUCTURES: No acute or suspicious osseous abnormality. CT/CT abdomen pelvis wo con IMPRESSION: 1. No evidence for acute intrathoracic pathology. Lungs are clear without inflammation or nodules. 2. No acute intra-abdominal pathology. No bowel obstruction or inflammatory change. 3. Additional chronic findings as above.
--- NOTE | 2021-12-27 12:05 | ED_ITS ---
HPI - Abdominal Pain General Chief Complaint: Nausea/Vomiting/Diarrhea Stated Complaint: ABD PAIN,DIARRHEA,+VACC Time Seen by Provider: 12/27/21 12:05 Source: patient Mode of arrival: EMS Limitations: no limitations History of Present Illness HPI narrative: Patient is a 61-year-old female with a past medical history of osteoarthritis, rhabdomyolysis, CAD with TN and CABG, pacemaker, heart failure with pEF, CKD, I BS, GERD, gastroparesis, CVA, COPD, anxiety, anemia, type 2 diabetes mellitus, hypertension, hyperlipidemia. She has a history of a recent COVID-19 infection diagnosed 12/04/2021. She presents to the emergency department via EMS with complaints of epigastric pain, chest pain, and diarrhea. She reports that she has been experiencing diarrhea 3-4 times daily described as soft, and brown in color for 1 week. She denies associated nausea, vomiting, or bloody/dark stools. Today she reports onset of left anterior chest pain followed by epigastric pain, which have been constant. Chest pain is described as stabbing and feels worse with movement and when touching her chest, and with deep inspirations. She denies nausea or vomiting or inability to tolerate p.o. intake. Additionally, she is reporting urinary frequency. Denies fevers, chills, headache, sore throat, cough, palpitations, shortness of breath, difficulty breathing, back pain, flank pain, lower abdominal pain. MD elicited complaint: abdominal pain Onset (ago): day(s) Pain Consistency: constant Location: chest and epigastric Severity: moderate Pain scale (0-10): 6 Quality: stabbing Exacerbating factors: movement Relieving factors: nothing Associated symptoms: diarrhea Treatments prior to arrival: other (tylenol) Related Data Home Medications Medication Instructions Recorded Confirmed lorazepam 0.5 mg tablet 0.5 mg PO BID PRN 09/14/20 11/05/21 albuterol sulfate 90 2 puff INHALATION Q6H PRN 09/16/20 11/05/21 mcg/actuation aerosol inhaler allopurinol 100 mg tablet 100 mg PO DAILY 09/16/20 11/05/21 aspirin 81 mg tablet,delayed 81 mg PO DAILY 09/16/20 11/05/21 release atorvastatin 40 mg tablet 40 mg PO BEDTIME 09/16/20 11/05/21 fluticasone furoate 100 1 inh INHALATION DAILY PRN 09/16/20 11/05/21 mcg-vilanterol 25 mcg/dose inhalation powder (Breo Ellipta) metoprolol succinate 50 mg 50 mg PO DAILY 09/16/20 11/05/21 tablet,extended release 24 hr (Toprol XL) insulin degludec 100 unit/mL 12 unit SUBCUT DAILY ml 11/13/20 11/05/21 (3 mL) subcutaneous pen (Tresiba FlexTouch U-100 insulin) amlodipine 5 mg tablet 5 mg PO DAILY 12/22/20 11/05/21 ergocalciferol (vitamin D2) 1 cap PO SA@1000 12/22/20 11/05/21 1,250 mcg (50,000 unit) capsule ferrous sulfate 325 mg (65 mg 325 mg PO DAILY 12/22/20 11/05/21 iron) tablet (iron) tamsulosin 0.4 mg capsule 0.4 mg PO DAILY@1700 12/22/20 11/05/21 insulin aspart U-100 100 5 unit SUBCUT BIDAC 01/08/21 11/05/21 unit/mL (3 mL) subcutaneous pen (Novolog Flexpen U-100 Insulin aspart) loperamide 2 mg tablet 2 mg PO QID PRN 01/08/21 11/05/21 melatonin 5 mg tablet 5 mg PO BEDTIME PRN 01/08/21 11/05/21 nitroglycerin 0.4 mg 0.4 mg SUBLINGUAL Q5M PRN 01/08/21 11/05/21 sublingual tablet gabapentin 100 mg capsule 200 mg PO TID 03/06/21 11/05/21 pantoprazole 20 mg 1 tab PO DAILY 03/06/21 11/05/21 tablet,delayed release acetaminophen 500 mg tablet 500 mg PO Q6H PRN 03/20/21 11/05/21 cholecalciferol (vitamin D3) 25 mcg PO DAILY 03/20/21 11/05/21 25 mcg (1,000 unit) capsule metoclopramide HCl 5 mg 5 mg PO QID 03/20/21 11/05/21 tablet pen needle, diabetic 31 gauge #1200 ea 03/20/21 11/05/21 x 5/16 Previous Rx's Medication Instructions Recorded furosemide 40 mg tablet 40 mg PO DAILY #90 tab 12/06/20 ciprofloxacin HCl 500 mg tablet 500 mg PO BID 7 Days #14 tab 06/08/21 acetaminophen 500 mg tablet 500 mg PO Q6H PRN #20 tab 08/09/21 (Tylenol Extra Strength) diclofenac sodium 1 % topical gel 2 g TOPICAL QID #100 g 08/09/21 lidocaine 4 % topical patch 1 patch TOPICAL DAILY PRN #30 ea 08/15/21 ondansetron 4 mg disintegrating 4 mg PO Q6-8H PRN #14 tab 08/20/21 tablet nitrofurantoin 100 mg PO Q12H 7 Days #14 cap 11/05/21 monohydrate/macrocrystals 100 mg capsule (Macrobid) cefuroxime axetil 250 mg tablet 250 mg PO BID 7 Days #14 tab 12/08/21 Allergies Allergy/AdvReac Type Severity Reaction Status Date / Time tetracycline Allergy Mild HIVES, Verified 12/27/21 12:22 [Tetracycline] anaphylaxis, anaphylaxis Review of Systems Review of Systems Constitutional: No weight loss, fever, chills, weakness or fatigue. HEENT: No visual loss, blurred vision, double vision or yellow sclera. No hearing loss, sneezing, congestion, runny nose or sore throat. Skin: No rash or itching. Cardiovascular: + chest pain as noted in HPI. No palpitations or pedal edema. Respiratory: No shortness of breath, cough or sputum production. Gastrointestinal: + epigastric pain and diarrhea as noted in HPI. No anorexia, nausea, vomiting or diarrhea. No blood in stool. Genitourinary: + urinary frequency. No burning micturition. No urinary or incon tinence. Neurologic: No headache, dizziness, syncope, unilateral weakness, ataxia, numbness or tingling in the extremities. No change in bowel or bladder control. Musculoskeletal: No muscle pain, back pain, joint pain or stiffness. Hematologic: No bleeding or bruising. Lymphatics: No enlarged lymph nodes. Psychiatric:No depression or anxiety. Endocrine: No reports of sweating. No cold or heat intolerance. No polyuria or polydipsia. Physical Exam Verdana 4l Vital Signs: Verdana 4d Verdana 4d Vital Signs: Verdana 4d Verdana 4Bd Last Vital Signs Verdana 4d Paper Inspector New 4d Paper Inspector New 4d Temp 98.7 F 12/27/21 14:37 Paper Inspector New 4d Pulse 81 12/27/21 16:06 Paper Inspector New 4d Resp 19 12/27/21 16:06 BP 186/79 H 12/27/21 16:55 Pulse Ox 89 L 12/27/21 16:19 BMI result Body Mass Index 35.2 Vital signs have been reviewed as normal and appeared to be correct. Blood press ure normal.? Heart rate normal.? Respiration rate normal. Temperature normal.? Oxygen saturation normal. Appearance: Alert.?Oriented to person, place and time. No acute distress.?Normal affect. Eyes: Pupils equal, round and reactive to light.? ENT: Pharynx normal.?? Neck: Normal inspection.? Neck supple.?? CVS: Heart sounds normal. Normal heart rate and rhythm.? Pulses normal.?? Respiratory: No respiratory distress.? Lung sounds clear to auscultation bilaterally?? Abdomen: Soft with tenderness to palpation of the epigastrium. Normoactive bowel sounds. No pulsatile mass.?? Skin: + appears pale. Skin warm and dry.? Normal skin turgor.?? Extremities: No lower extremity edema.? No calf ttp? Neuro: Moves all extremities spontaneously. Sensation intact bilaterally. No focal neuro deficits. Ambulates with normal steady gait. Procedures EJ/Peripheral Line Arm R: Time Out Performed: Yes Skin Cleansed in Sterile Fashion: Yes Size (gauge): 20 IV Secured and Dressing Applied: Yes Patient Tolerated Procedure: well Course Course Course Narrative: Patient is a 61-year-old female being evaluated for chest pain, epigastric pain, and diarrhea. Will obtain EKG and the 2nd troponin to exclude arrhythmia or ischemia. Will obtain CBC to today cytosis anemia, CMP and lipase to evaluate for abnormal electrolytes, abnormal kidney function, abnormal hepatic/biliary function, lactic acid, stool culture/WBC/parasites/C difficile, urinalysis to evaluate for urinary tract infection. CT of the abdomen and pelvis evaluate for colitis or other intra-abdominal pathology. History and physical exam not consistent with GI perforation, GI bleed, AAA, aortic dissection, DKA. Not consi stent with strangulated hernia, bowel obstruction, pulmonary embolism, mesenteric ischemia, ovarian torsion. Will give 1L normal saline IV in addition to Maalox with lidocaine viscous and famotidine. Disposition pending results. Reevaluation(s) Reevaluation #1: Lactic acid is elevated 2.6, do not suspect that this is due to bacterial infection or sepsis, no systemic hypoperfusion she does not meet sirs criteria, has no leukocytosis, likely type B lactic acidosis secondary to Chronic kidney disease and beta agonist. BUN and creatinine and elevated at 32 and 2.6 but this is consistent with baseline, however, unable to obtain CT of the abdomen and pelvis with IV contrast due to this, therefore will change order to CT abdomen and pelvis without contrast. Troponin was significantly elevated 568.4, EKG was repeated with no acute changes in comparison to EKG earlier today and on 12/04/2021, ordered aspirin 324 mg p.o. and atorvastatin 40 mg p.o. CBC reveals anemia with hemoglobin and hematocrit 11.3 and 35 consistent with baseline. Time: 14:22 Reevaluation #2: I spoke to Cardiology Dr. Wilkins, who recommended initiation of a heparin drip. I spoke with ED attending Dr. Toro, discussed case with him to involve in her care. Will perform bedside ultrasound, obtain repeat troponin now. Added CT of the chest without contrast in addition to abdomen and pelvis. Time: 14:46 Reevaluation #3: Dr. Toro and Dr. Serrano at bedside to perform cardiac ultrasound, no cardiac wall motion abnormalities noted. Patient continues to report anterior chest pain, describing it as pressure and heaviness. Nitroglycerin sublingual ordered, blood pressure 162/70. Heparin bolus 4000 units and heparin drip ordered Call placed to Dr. Wilkins; to discuss disposition for NSTEMI and unstable angina. Dr. Toro placed US guided peripheral IV line, 20G. Time: 15:26 Additional Reevaluation(s): 1548: Spoke with Dr. Wilkins again, who advises that she should be either a dmitted to intensive care unit here or she can be transferred to [facility]. 2 hour repeat troponin 916.1. Awaiting call back from [facility] at this time. 1610: Called to bedside by nursing staff, patient is single nitroglycerin with significant drop in blood pressure from 162/70 to 90/47. Hypoxia to 89% on R.A., placed on oxygen supplementation 2 L via nasal cannula with improvement to 98%. Patient reports that she continues to have chest pain at this time, left a nterior pressure, and she is feeling tired. Additional 1L NS ordered. CT of the chest and abdomen without evidence for acute intrathoracic or intra-abdominal pathology. 1630: Dr. Toro spoke with [facility] cardiology, patient accepted for transfer by Dr. Baker. Will arrange transportation for transfer. MDM - Abdominal Pain Medical Records Attestation: I reviewed the patient's medical records. Lab Data Attestation: I reviewed the patient's lab results. Result diagrams: 12/27/21 15:22 12/27/21 13:37 Labs: Lab Results 12/27/21 12/27/21 12/27/21 Range/Units 13:37 13:37 13:37 WBC 9.4 (4.8-10.8) X10*3/uL RBC 3.65 L (4.20-5.50) X10*6/uL Hgb 11.3 L (12.0-16.0) g/dl Hct 35.0 L (37.0-47.0) % MCV 95.9 (80.0-98.0) fL MCH 31.0 (27.0-33.0) pg MCHC 32.3 (31.0-35.0) g/dl RDW 13.7 (11.0-16.0) % Plt Count 210 (160-400) X10*3/uL MPV 11.2 (9.4-12.3) fL Immature Gran % (Auto) 0.6 H (0.0-0.4) % Neut % (Auto) 77.1 H (45-73) % Lymph % (Auto) 14.3 L (20-40) % [place] % (Auto) 6.3 (2-11) % Eos % (Auto) 1.4 (0-4) % Baso % (Auto) 0.3 (0-2) % Lymph # (Auto) 1.4 (1.2-4.9) X10*3/uL [place] # (Auto) 0.6 (0.1-1.2) X10*3/uL Eos # (Auto) 0.1 (0.0-0.4) X10*3/uL Baso # (Auto) 0.0 (0.0-0.2) X10*3/uL Abs Immat Gran (auto) 0.06 H (0.00-0.03) X10*3/uL Absolute Neuts (auto) 7.3 (2.0-8.3) x10*3/uL Absolute Nucleated RBC 0.000 (0.0-0.012) X10*3/uL Nucleated RBC % (auto) 0.0 (0.0-0.2) /100WBC Smear Tech's Comments VERIFIED PT (9.9-13.0) SEC INR (0.9-1.1) APTT (24.1-38.0) SEC Sodium 138 (135-145) mmol/L Potassium 4.8 (3.3-5.1) mmol/L Chloride 103 (96-108) mmol/L Carbon Dioxide 24 (22-29) mmol/L Anion Gap 16 (12-20) BUN 32 H (9-16) mg/dL Creatinine 2.60 H (0.5-1.4) mg/dL Estim Creat Clear Calc 21.8 Estimated GFR 19 Random Glucose 250 H (60-115) mg/dL Lactic Acid 2.6 H* (0.5-2.0) mmol/L Lactic Acid F/U @ 2Hr (0.5-2.0) mmol/L Calcium 9.4 (8.4-10.2) mg/dL Magnesium 1.8 (1.6-2.6) mg/dL Total Bilirubin 0.6 (0.0-1.0) mg/dL AST 19 (5-31) U/L ALT 9 (0-31) U/L Alkaline Phosphatase 125 H (39-117) U/L Troponin I High Sens (<3.5-17.0) ng/L Total Protein 8.0 (6.5-8.0) g/dL Albumin 3.8 (3.5-5.0) g/dL Lipase 21 (8-78) U/L Urine Color Urine Appearance Urine pH (5.0-8.0) Ur Specific [place] (1.005-1.025) Urine Protein (NEG-TRACE) MG/DL Urine Glucose (UA) (NEG) MG/DL Urine Ketones (NEG) MG/DL Urine Blood (NEG) Urine Nitrite (NEG) Ur Leukocyte Esterase (NEG) Urine RBC (0) /HPF Urine WBC (0-4) /HPF Ur Squamous Epith Cells /LPF Urine Bacteria /LPF COVID-19 ([facility]) (Negative) COVID-19 Clin Com 12/27/21 12/27/21 12/27/21 Range/Units 13:37 15:22 15:22 WBC (4.8-10.8) X10*3/uL RBC (4.20-5.50) X10*6/uL Hgb (12.0-16.0) g/dl Hct (37.0-47.0) % MCV (80.0-98.0) fL MCH (27.0-33.0) pg MCHC (31.0-35.0) g/dl RDW (11.0-16.0) % Plt Count (160-400) X10*3/uL MPV (9.4-12.3) fL Immature Gran % (0.0-0.4) % (Auto) Neut % (Auto) (45-73) % Lymph % (Auto) (20-40) % [place] % (Auto) (2-11) % Eos % (Auto) (0-4) % Baso % (Auto) (0-2) % Lymph # (Auto) (1.2-4.9) X10*3/uL [place] # (Auto) (0.1-1.2) X10*3/uL Eos # (Auto) (0.0-0.4) X10*3/uL Baso # (Auto) (0.0-0.2) X10*3/uL Abs Immat Gran (auto) (0.00-0.03) X10*3/uL Absolute Neuts (auto) (2.0-8.3) x10*3/uL Absolute Nucleated (0.0-0.012) RBC X10*3/uL Nucleated RBC % (0.0-0.2) /100WBC (auto) Smear Tech's Comments PT 13.7 H (9.9-13.0) SEC INR 1.2 H (0.9-1.1) APTT 28.4 (24.1-38.0) SEC Sodium (135-145) mmol/L Potassium (3.3-5.1) mmol/L Chloride (96-108) mmol/L Carbon Dioxide (22-29) mmol/L Anion Gap (12-20) BUN (9-16) mg/dL Creatinine (0.5-1.4) mg/dL Estim Creat Clear Calc Estimated GFR Random Glucose (60-115) mg/dL Lactic Acid (0.5-2.0) mmol/L Lactic Acid F/U @ 2Hr (0.5-2.0) mmol/L Calcium (8.4-10.2) mg/dL Magnesium (1.6-2.6) mg/dL Total Bilirubin (0.0-1.0) mg/dL AST (5-31) U/L ALT (0-31) U/L Alkaline Phosphatase (39-117) U/L Troponin I High Sens 568.4 H* D 916.1 H* D (<3.5-17.0) ng/L Total Protein (6.5-8.0) g/dL Albumin (3.5-5.0) g/dL Lipase (8-78) U/L Urine Color Urine Appearance Urine pH (5.0-8.0) Ur Specific [place] (1.005-1.025) Urine Protein (NEG-TRACE) MG/DL Urine Glucose (UA) (NEG) MG/DL Urine Ketones (NEG) MG/DL Urine Blood (NEG) Urine Nitrite (NEG) Ur Leukocyte Esterase (NEG) Urine RBC (0) /HPF Urine WBC (0-4) /HPF Ur Squamous Epith /LPF Cells Urine Bacteria /LPF COVID-19 ([facility]I) (Negative) COVID-19 Clin Com 12/27/21 12/27/21 12/27/21 Range/Units 15:22 15:45 16:16 WBC 9.3 (4.8-10.8) X10*3/uL RBC 3.77 L (4.20-5.50) X10*6/uL Hgb 11.6 L (12.0-16.0) g/dl Hct 36.0 L (37.0-47.0) % MCV 95.5 (80.0-98.0) fL MCH 30.8 (27.0-33.0) pg MCHC 32.2 (31.0-35.0) g/dl RDW 13.7 (11.0-16.0) % Plt Count 244 (160-400) X10*3/uL MPV 10.8 (9.4-12.3) fL Immature Gran % (Auto) (0.0-0.4) % Neut % (Auto) (45-73) % Lymph % (Auto) (20-40) % [place] % (Auto) (2-11) % Eos % (Auto) (0-4) % Baso % (Auto) (0-2) % Lymph # (Auto) (1.2-4.9) X10*3/uL [place] # (Auto) (0.1-1.2) X10*3/uL Eos # (Auto) (0.0-0.4) X10*3/uL Baso # (Auto) (0.0-0.2) X10*3/uL Abs Immat Gran (auto) (0.00-0.03) X10*3/uL Absolute Neuts (auto) (2.0-8.3) x10*3/uL Absolute Nucleated RBC 0.000 (0.0-0.012) X10*3/uL Nucleated RBC % (auto) 0.0 (0.0-0.2) /100WBC Smear Tech's Comments PT (9.9-13.0) SEC INR (0.9-1.1) APTT (24.1-38.0) SEC Sodium (135-145) mmol/L Potassium (3.3-5.1) mmol/L Chloride (96-108) mmol/L Carbon Dioxide (22-29) mmol/L Anion Gap (12-20) BUN (9-16) mg/dL Creatinine (0.5-1.4) mg/dL Estim Creat Clear Calc Estimated GFR Random Glucose (60-115) mg/dL Lactic Acid (0.5-2.0) mmol/L Lactic Acid F/U @ 2Hr 1.1 (0.5-2.0) mmol/L Calcium (8.4-10.2) mg/dL Magnesium (1.6-2.6) mg/dL Total Bilirubin (0.0-1.0) mg/dL AST (5-31) U/L ALT (0-31) U/L Alkaline Phosphatase (39-117) U/L Troponin I High Sens (<3.5-17.0) ng/L Total Protein (6.5-8.0) g/dL Albumin (3.5-5.0) g/dL Lipase (8-78) U/L Urine Color Urine Appearance Urine pH (5.0-8.0) Ur Specific [place] (1.005-1.025) Urine Protein (NEG-TRACE) MG/DL Urine Glucose (UA) (NEG) MG/DL Urine Ketones (NEG) MG/DL Urine Blood (NEG) Urine Nitrite (NEG) Ur Leukocyte Esterase (NEG) Urine RBC (0) /HPF Urine WBC (0-4) /HPF Ur Squamous Epith Cells /LPF Urine Bacteria /LPF COVID-19 ([facility]I) Positive A (Negative) COVID-19 Clin Com See Note 12/27/21 Range/Units 16:16 WBC (4.8-10.8) X10*3/uL RBC (4.20-5.50) X10*6/uL Hgb (12.0-16.0) g/dl Hct (37.0-47.0) % MCV (80.0-98.0) fL MCH (27.0-33.0) pg MCHC (31.0-35.0) g/dl RDW (11.0-16.0) % Plt Count (160-400) X10*3/uL MPV (9.4-12.3) fL Immature Gran % (Auto) (0.0-0.4) % Neut % (Auto) (45-73) % Lymph % (Auto) (20-40) % [place] % (Auto) (2-11) % Eos % (Auto) (0-4) % Baso % (Auto) (0-2) % Lymph # (Auto) (1.2-4.9) X10*3/uL [place] # (Auto) (0.1-1.2) X10*3/uL Eos # (Auto) (0.0-0.4) X10*3/uL Baso # (Auto) (0.0-0.2) X10*3/uL Abs Immat Gran (auto) (0.00-0.03) X10*3/uL Absolute Neuts (auto) (2.0-8.3) x10*3/uL Absolute Nucleated RBC (0.0-0.012) X10*3/uL Nucleated RBC % (auto) (0.0-0.2) /100WBC Smear Tech's Comments PT (9.9-13.0) SEC INR (0.9-1.1) APTT (24.1-38.0) SEC Sodium (135-145) mmol/L Potassium (3.3-5.1) mmol/L Chloride (96-108) mmol/L Carbon Dioxide (22-29) mmol/L Anion Gap (12-20) BUN (9-16) mg/dL Creatinine (0.5-1.4) mg/dL Estim Creat Clear Calc Estimated GFR Random Glucose (60-115) mg/dL Lactic Acid (0.5-2.0) mmol/L Lactic Acid F/U @ 2Hr (0.5-2.0) mmol/L Calcium (8.4-10.2) mg/dL Magnesium (1.6-2.6) mg/dL Total Bilirubin (0.0-1.0) mg/dL AST (5-31) U/L ALT (0-31) U/L Alkaline Phosphatase (39-117) U/L Troponin I High Sens (<3.5-17.0) ng/L Total Protein (6.5-8.0) g/dL Albumin (3.5-5.0) g/dL Lipase (8-78) U/L Urine Color YELLOW Urine Appearance CLEAR Urine pH 5.5 (5.0-8.0) Ur Specific [place] 1.020 (1.005-1.025) Urine Protein 1+ H (NEG-TRACE) MG/DL Urine Glucose (UA) 500 H (NEG) MG/DL Urine Ketones NEG (NEG) MG/DL Urine Blood TRACE (NEG) Urine Nitrite NEG (NEG) Ur Leukocyte Esterase NEG (NEG) Urine RBC 0-2 (0) /HPF Urine WBC 0-2 (0-4) /HPF Ur Squamous Epith Cells 2+ /LPF Urine Bacteria NONE /LPF COVID-19 ([facility]I) (Negative) COVID-19 Clin Com Imaging Data CT chest/ ABD: Attestation: I personally reviewed and interpreted this imaging study as follows: Radiologist's impression: FINDINGS: CHEST: LUNG: No focal consolidation, nodules or masses. PLEURA: No pleural effusion or pneumothorax. MEDIASTINUM: Mild cardiomegaly. Intracardiac leads from left-sided pacemaker device are visible. No pericardial effusion. No significant hilar or mediastinal lymphadenopathy. The esophagus is mildly distended with an internal air-fluid level. CHEST WALL/AXILLA: No axillary or internal mammary lymphadenopathy. There has been a prior median sternotomy, with wires intact. ABDOMEN AND PELVIS: LIVER, GALLBLADDER, AND BILIARY TREE: The liver is normal in size, shape, and attenuation. No focal hepatic lesion or biliary ductal dilatation is present. The gallbladder is surgically absent.? PANCREAS: There is fatty atrophy of the pancreas. No focal abnormality..? SPLEEN: Unremarkable.? ADRENAL GLANDS: Unremarkable.? KIDNEYS AND URETERS: The nonenhanced kidneys are normal in size, shape, and attenuation. No hydronephrosis, hydroureter, or calculi seen. No perinephric stranding. ? BLADDER: No bladder wall thickening. No bladder calculi.? GASTROINTESTINAL TRACT: The stomach is unremarkable. The small bowel is of normal caliber. No evidence for obstruction. The colon is normal in appearance without focal wall thickening or pericolonic inflammatory change. The appendix is not visualized, however there are no pericecal inflammatory changes. ABDOMINAL WALL: Again seen is a fat-containing ventral supraumbilical abdominal wall hernia. Neurostimulator device projects over the right flank. LYMPHOVASCULAR STRUCTURES: No lymphadenopathy. The aorta is normal in caliber. Atherosclerotic calcifications of the abdominal aorta, mesenteric branches, and iliac arteries. There are atherosclerotic calcifications of the proximal femoral arteries.. PELVIC VISCERA: The uterus is surgically absent. No adnexal mass. OSSEOUS STRUCTURES: No acute or suspicious osseous abnormality.? CT/CT chest wo con IMPRESSION: ? 1. No evidence for acute intrathoracic pathology. Lungs are clear without inflammation or nodules. 2. No acute intra-abdominal pathology. No bowel obstruction or inflammatory change. 3. Additional chronic findings as above. ? ECG Data Attestation: I personally reviewed and interpreted this ECG as follows: ECG interpretation date: 12/27/21 ECG interpretation time: 13:13 Prior ECG tracings: available for review Interpretation: Rate: 92 Rhythm:? Atrial sensed ventricular paced with prolonged AV conduction SD interval 216.??? ST T wave :??No ST elevation or depression qTC: 521 prior studies:? 12/04/2021 The study has been interpreted contemporaneously by me. Critical Care Time Critical Care Time Critical Care Time: Yes Total Critical Care Time: 90 Attestation: I personally attest to this time spent taking care of the patient Discharge Plan Discharge Clinical Impression: Non-ST elevation (NSTEMI) myocardial infarction, Angina pectoris, unstable, Gastroenteritis Patient Disposition: [facility] Transfer Details: [facility], accepting Dr. Baker Prescriptions: No Action furosemide 40 mg tablet 40 mg PO DAILY Qty: 90 3RF lorazepam 0.5 mg Tablet 0.5 mg PO BID PRN (Reason: Anxiety) 0RF atorvastatin 40 mg Tablet 40 mg PO BEDTIME 0RF metoprolol succinate [Toprol XL] 50 mg Tablet Extended Release 24 Hr 50 mg PO DAILY 0RF allopurinol 100 mg Tablet 100 mg PO DAILY 0RF albuterol sulfate 90 mcg/actuation Hfa Aerosol Inhaler 2 puff INHALATION Q6H PRN (Reason: Shortness Of Breath) 0RF Breo Ellipta 100-25 mcg/dose Blister With Device 1 inh INHALATION DAILY PRN (Reason: Shortness Of Breath) 0RF aspirin 81 mg Tablet,Delayed Release (Dr/Ec) 81 mg PO DAILY 0RF Hold Instructions: Resume on 01/13/21. ciprofloxacin HCl 500 mg tablet 500 mg PO BID 7 Days Qty: 14 0RF tamsulosin 0.4 mg capsule 0.4 mg PO DAILY@1700 0RF ferrous sulfate [iron] 325 mg (65 mg iron) Tablet 325 mg PO DAILY 0RF ergocalciferol (vitamin D2) 1,250 mcg (50,000 unit) capsule 1 cap PO SA@1000 0RF Rx Instructions: on saturdays amlodipine 5 mg tablet 5 mg PO DAILY 0RF insulin aspart U-100 [Novolog Flexpen U-100 Insulin] 100 unit/mL (3 mL) Insulin Pen 5 unit SUBCUT BIDAC 0RF loperamide 2 mg Tablet 2 mg PO QID PRN (Reason: Diarrhea) 0RF nitroglycerin 0.4 mg Tablet, Sublingual 0.4 mg SUBLINGUAL Q5M PRN (Reason: Chest Pain) 0RF melatonin 5 mg Tablet 5 mg PO BEDTIME PRN (Reason: Sleep) 0RF pantoprazole 20 mg tablet,delayed release (DR/EC) 1 tab PO DAILY 0RF gabapentin 100 mg capsule 200 mg PO TID 0RF diclofenac sodium 1 % gel 2 g topical QID Qty: 100 0RF Rx Instructions: apply to single elbow, wrist or hand; for hand includes palm/fingers/back of hand acetaminophen [Tylenol Extra Strength] 500 mg tablet 500 mg PO Q6H PRN (Reason: pain or fever) Qty: 20 0RF nitrofurantoin monohyd/m-cryst [Macrobid] 100 mg capsule 100 mg PO Q12H 7 Days Qty: 14 0RF Rx Instructions: must administer with a meal/food cefuroxime axetil 250 mg tablet 250 mg PO BID 7 Days Qty: 14 0RF ondansetron 4 mg tablet,disintegrating 4 mg PO Q6-8H PRN (Reason: nausea and vomiting) Qty: 14 0RF acetaminophen 500 mg tablet 500 mg PO Q6H PRN0RF metoclopramide HCl 5 mg tablet 5 mg PO QID 0RF (DME) pen needle, diabetic 31 gauge x 5/16 needle See Rx Instructions ea subcut .MEDSUPPLY Qty: 1200 0RF Rx Instructions: As directed cholecalciferol (vitamin D3) 25 mcg (1,000 unit) capsule 25 mcg PO DAILY 0RF Tresiba FlexTouch U-100 100 unit/mL (3 mL) insulin pen 12 unit subcut DAILY 0RF Rx Instructions: PT STATED PREVIOUSLY ON 40 UNITS AND WAS DECREASED TO 12 UNITS lidocaine 4 % adhesive patch,medicated 1 patch topical DAILY PRN (Reason: pain) Qty: 30 0RF Interventions: Acute Care Transfer Worksheet (ED) Last Done: 12/27/21 18:00 Discharge Date/Time: 12/27/21 18:01 [facility] Past Medical History Attestation statement: The following information was validated with the patient. Source: old records reviewed Medical History Acute heart failure with preserved ejection fraction Anemia Anxiety Arthritis Cardiac pacemaker in situ Carpal tunnel syndrome CHF (congestive heart failure) Chronic heart failure with preserved ejection fraction (HFpEF) COPD exacerbation Coronary artery disease CVA (cerebral vascular accident) Diabetes Fall Gastritis Gastroparesis Gastroparesis GERD (gastroesophageal reflux disease) Headache HLD (hyperlipidemia) HTN (hypertension) HTN (hypertension) Hypocalcemia Hypoxia IBS (irritable bowel syndrome) Knee pain, left Myocardial infarct Nausea and vomiting Orthostasis Renal failure Suprapatellar effusion of knee T2DM (type 2 diabetes mellitus) UTI (urinary tract infection) Surgical History H/O Achilles tendon repair History of appendectomy History of bladder surgery History of carpal tunnel release History of total hysterectomy with bilateral salpingo-oophorectomy (BSO) Hx of amputation Hx of CABG (~2019) Hx of cholecystectomy Hx of endoscopy Hx of knee surgery Hx of tonsillectomy Family History Family History Father No problems noted. Mother Diabetes Hypercholesteremia Hypertension Stroke Social History Social History Household Members: Family Household Members Other:: 1 Housing: Apartment Do you presently have visiting nurse or other home services: Yes (pack operator, vna) Alcohol intake: never Patient Tobacco Use Status: Never used Tobacco Years Smoked: 20 Second Hand Smoke Exposure: No Advance Directives: No Advance Directives Information Provided: No service: No Current occupational status: disabled
--- NOTE | 2021-12-27 12:22 | ECG_ITS ---
Test Reason : CHEST PAIN Blood Pressure : / mmHG Vent. Rate : 092 BPM Atrial Rate : 092 BPM P-R Int : 216 ms QRS Dur : 118 ms QT Int : 422 ms P-R-T Axes : 070 098 268 degrees QTc Int : 521 ms Atrial-sensed ventricular-paced rhythm with prolonged AV conduction Nonspecific ST and T wave abnormality Abnormal ECG When compared with ECG of 04-DEC-2021 02:44, Vent. rate has increased BY 8 BPM Referred By: Stefany Mueller Electronically Signed By:STEVE MASON
[2021-12-27] MEDS: Magnesium Hydrox/Alum Hydrox 30 ML ORAL.SUSP PO (12:51)
[2021-12-27] MEDS: Lidocaine HCl Viscous 2 % 15 ML SOLUTION MUCOUS MEM (12:51)
[2021-12-27] MEDS: Famotidine 20 MG TABLET PO (12:51)
[2021-12-27] MEDS: 0.9 % Sodium Chloride 1,000 ML 999 ML IV ×2 (13:02→16:17)
--- NOTE | 2021-12-27 13:43 | PC.NURSE ---
pt a difficult stick, 22G placed by Amy PEACOCK, this RN and PCt attempted lab work without success. call placed to phlebotomy
[2021-12-27 13:48] LABS: Basophils Percent Auto 0.3 % (0-2); Eosinophils Absolute Auto 0.1 X10*3/uL (0.0-0.4); Eosinophils Percent Auto 1.4 % (0-4); Hemoglobin 11.3 g/dl (12.0-16.0); Imm Gran Abs Auto 0.06 X10*3/uL (0.00-0.03); Imm Gran Pct Auto 0.6 % (0.0-0.4); Lymphocytes Absolute Auto 1.4 X10*3/uL (1.2-4.9); Lymphocytes Percent Auto 14.3 % (20-40); MANUAL DIFF FLAG SCAN; Mean Corpuscular HGB Conc 32.3 g/dl (31.0-35.0); Mean Corpuscular Volume 95.9 fL (80.0-98.0); Mean Platelet Volume 11.2 fL (9.4-12.3); Monocytes Absolute Auto 0.6 X10*3/uL (0.1-1.2); Monocytes Percent Auto 6.3 % (2-11); Neutrophils Absolute Auto 7.3 x10*3/uL (2.0-8.3); Neutrophils Percent Auto 77.1 % (45-73); PLT CLUMP 1; Platelet Count 210 X10*3/uL (160-400); Red Blood Count 3.65 X10*6/uL (4.20-5.50); Red Cell Distribution Width 13.7 % (11.0-16.0); SCAN SMEAR FLAG 1; White Blood Count 9.4 X10*3/uL (4.8-10.8)
[2021-12-27 13:56] LABS: Lactic Acid 2.6 mmol/L (0.5-2.0)
[2021-12-27 14:02] LABS: Alanine Aminotransferase 9 U/L (0-31); Albumin Level 3.8 g/dL (3.5-5.0); Alkaline Phosphatase 125 U/L (39-117); Anion Gap 16 (12-20); Aspartate Amino Transferase 19 U/L (5-31); Bilirubin Total 0.6 mg/dL (0.0-1.0); Blood Urea Nitrogen 32 mg/dL (9-16); Calcium 9.4 mg/dL (8.4-10.2); Carbon Dioxide 24 mmol/L (22-29); Chloride 103 mmol/L (96-108); Creatinine Clr Calc Pharmacy 21.8; Estimated Glomerular Filt Rate 19; Glucose Random 250 mg/dL (60-115); Lipase 21 U/L (8-78); Magnesium 1.8 mg/dL (1.6-2.6); Potassium 4.8 mmol/L (3.3-5.1); Sodium 138 mmol/L (135-145)
[2021-12-27 14:07] LABS: SLIDE REVIEW VERIFIED
[2021-12-27 14:17] LABS: Troponin-I High Sensitivity 568.4 ng/L (<3.5-17.0)
--- NOTE | 2021-12-27 14:21 | ECG_ITS ---
Test Reason : REPEAT Blood Pressure : / mmHG Vent. Rate : 083 BPM Atrial Rate : 083 BPM P-R Int : 218 ms QRS Dur : 120 ms QT Int : 452 ms P-R-T Axes : 066 100 080 degrees QTc Int : 531 ms Atrial-sensed ventricular-paced rhythm with prolonged AV conduction Nonspecific ST and T wave abnormality Abnormal ECG When compared with ECG of 27-DEC-2021 12:46, Vent. rate has decreased BY 9 BPM Referred By: Stefany Mueller Electronically Signed By:STEVE MASON
[2021-12-27] MEDS: Aspirin 81 MG TAB.CHEW 324 MG PO (14:37)
[2021-12-27] MEDS: Atorvastatin Calcium 40 MG TABLET PO (14:37)
--- NOTE | 2021-12-27 15:13 | PC.NURSE ---
dr freeman at bedside to place u/s guided IV
[2021-12-27 15:34] LABS: INTERNATIONAL NORM RATIO 1.2 (0.9-1.1); Prothrombin Time 13.7 SEC (9.9-13.0)
[2021-12-27 15:37] LABS: Partial Thromboplastin Time 28.4 SEC (24.1-38.0)
[2021-12-27 15:43] LABS: Reflex Lactate? Lactic Acid Added
--- NOTE | 2021-12-27 15:52 | PC.NURSE ---
DR COONEY REQUEST CALL OUT TO [facility] PT TX LINE SALVADOR ANSWERS, TAKES PT INFO @ THIS TIME
[2021-12-27 15:53] LABS: Troponin-I High Sensitivity 916.1 ng/L (<3.5-17.0)
[2021-12-27 16:01] LABS: ~Lactic Acid-LAB USE ONLY 1.1 mmol/L (0.5-2.0)
[2021-12-27] MEDS: Nitroglycerin 0.4 MG TAB.SUBL SUBLINGUAL (16:02)
[2021-12-27 16:04] LABS: Hemoglobin 11.6 g/dl (12.0-16.0); Mean Corpuscular HGB Conc 32.2 g/dl (31.0-35.0); Mean Corpuscular Hemoglobin 30.8 pg (27.0-33.0); Mean Corpuscular Volume 95.5 fL (80.0-98.0); Mean Platelet Volume 10.8 fL (9.4-12.3); Platelet Count 244 X10*3/uL (160-400); Red Blood Count 3.77 X10*6/uL (4.20-5.50); Red Cell Distribution Width 13.7 % (11.0-16.0); White Blood Count 9.3 X10*3/uL (4.8-10.8)
[2021-12-27] MEDS: Heparin Sodium,Porcine 5,000 UNIT/ML VIAL 4000 UNIT IVPUSH (16:05)
--- NOTE | 2021-12-27 16:12 | PC.NURSE ---
JAYDA FROM [facility] PT TCX LINE CALL US BACK AT THIS TIME ASKS TO SPEAK WITH DR EROS COONEY TAKES OVER CALL RIGHT AWAY
--- NOTE | 2021-12-27 16:13 | PC.NURSE ---
after nitroglycerin administration BP low - from 160/75 down to 101/56 (72) repeat at 90/47 (61) - 1000 ml fluids hung, GEOFF Mccall notified and at bedside. vitals otherwise stable
--- NOTE | 2021-12-27 16:22 | PC.NURSE ---
pt BP 112/72 improved from last, pt started on 2L NC
[2021-12-27 16:26] LABS: Appearance Urine CLEAR; Color Urine YELLOW; Glucose Urine UA 500 MG/DL (NEG); Leukocyte Esterase Urine NEG (NEG); Nitrite Urine NEG (NEG); PH 5.5 (5.0-8.0); UACC Culture Trigger NO; Urine Blood TRACE (NEG); Urine Ketones NEG (NEG); Urine Protein 1+ MG/DL (NEG-TRACE)
[2021-12-27 16:32] LABS: RBC Urine 0-2 /HPF (0); Squamous Epithelial Cell Urine 2+ /LPF; WBC Urine 0-2 /HPF (0-4)
[2021-12-27] MEDS: Heparin Sodium,Porcine/1/2NS 25,000 UNIT/250 ML IV.SOLN 10 UNIT IVCONT (16:36)
--- NOTE | 2021-12-27 16:42 | PC.NURSE ---
pt weight 87.32, heparin drip started at 10mls/hr (11.45 U/kg/hr) - repeat PTTHD order placed and due at 2230.
[2021-12-27 16:43] LABS: COVID-19 Test Positive (Negative)
--- NOTE | 2021-12-27 16:43 | PC.NURSE ---
pt BP back up to 187/89 (117) - IVF discontinued at this time, will continue to monitor
--- NOTE | 2021-12-27 17:01 | PC.NURSE ---
call placed to [facility] for report - RN will call back
--- NOTE | 2021-12-27 17:22 | PC.NURSE ---
RETURN CALL FROM AZALIA OF [facility] PT TX LINE @ THIS TIME GIVES ROOM ASSIGNMENT AND ACCEPTING MD MCKAYLA HOWARD 5 ROOM [id number] RN TO RN [phone] GARCIA
== END 2021-12-27 18:01 | disposition short-term general hospital (02) ==
PROVIDERS: Nurse Practitioner Family; Emergency Provider Emergency Medicine
DX: U07.1 COVID-19 (principal); I21.4 Non-ST elevation (NSTEMI) myocardial infarction; I20.0 Unstable angina; K52.9 Noninfective gastroenteritis and colitis, unspecified; Z20.822 Contact with and (suspected) exposure to COVID-19; E11.22 Type 2 diabetes mellitus with diabetic chronic kidney disease; I13.0 Hypertensive heart and chronic kidney disease with heart failure and stage 1 through stage 4 chronic kidney disease, or unspecified chronic kidney disease; N18.9 Chronic kidney disease, unspecified; I50.9 Heart failure, unspecified; I25.2 Old myocardial infarction; Z86.73 Personal history of transient ischemic attack (TIA), and cerebral infarction without residual deficits; Z95.0 Presence of cardiac pacemaker; Z79.4 Long term (current) use of insulin
CPT/HCPCS: 36415; 36556; 36569; 71250; 74176; 80053; 81001; 83605; 83690; 83735; 84484; 85025; 85027; 85610; 85730; 87635; 93005; 96361; 96374; 96375; 96376; 99285; 99291; 99292

== ENCOUNTER 2022-01-03 04:45 | Emergency (ER) | payer OTHER, SELFPAY ==
--- NOTE | 2022-01-03 | ECG_ITS ---
Test Reason : CP Blood Pressure : / mmHG Vent. Rate : 071 BPM Atrial Rate : 071 BPM P-R Int : 218 ms QRS Dur : 120 ms QT Int : 450 ms P-R-T Axes : 065 100 -72 degrees QTc Int : 489 ms Atrial-sensed ventricular-paced rhythm with prolonged AV conduction Abnormal ECG When compared with ECG of 27-DEC-2021 14:22, Vent. rate has decreased BY 12 BPM Referred By: Jade Gracia Electronically Signed By:Efren Diaz
--- NOTE | ~2022-01-03 | CT_ITS ---
EXAMINATION: CT ABDOMEN AND PELVIS WITHOUT CONTRAST CLINICAL INFORMATION: Abdominal pain, diarrhea COMPARISON: CT abdomen 12/27/2021 TECHNIQUE: Multidetector volumetric imaging was performed from the superior aspect of the liver through the pubic symphysis. Sagittal and coronal reformatted images were obtained on the technologist's workstation. This CT examination was performed using dose optimization techniques as appropriate, variously including the following: *Automated exposure control *Adjustment of mA and/or kV according to patient size (this includes techniques or standardized protocols for targeted exams where dose is matched to indication/reason for exam; i.e. extremities or head) *Use of iterative reconstruction technique DLP: 720 mGy-cm FINDINGS: LUNG BASES: Bibasilar atelectasis. LIVER, GALLBLADDER, AND BILIARY TREE: The liver is normal in size, shape, and attenuation. No focal hepatic lesion or biliary ductal dilatation is present. Status postcholecystectomy. PANCREAS: Fatty atrophy of the pancreas. No focal abnormality seen. SPLEEN: Unremarkable. ADRENAL GLANDS: Unremarkable. KIDNEYS AND URETERS: The kidneys are normal in size, shape, and attenuation. No hydronephrosis, hydroureter, or calculi seen. No perinephric stranding. BLADDER: Partially distended within normal limits. GASTROINTESTINAL TRACT: Stomach has luminal contents, appearing within normal limits. Normal caliber of the small bowel. Few sigmoid diverticuli. No focal wall thickening or pericolonic inflammatory changes are seen. The appendix is not visualized. No pericecal inflammatory changes are seen. ABDOMINAL WALL: Redemonstrated is a fat-containing ventral supraumbilical abdominal wall hernia. Neurostimulator device in the right posterior tissues. LYMPH NODES: No adenopathy seen in the abdomen or pelvis. VASCULAR: Atherosclerotic vascular calcification of the abdominal aorta. PELVIC VISCERA: Uterus is surgically absent. No adnexal masses. OSSEOUS STRUCTURES: No acute or suspicious osseous abnormality. CT/CT abdomen pelvis wo con IMPRESSION: 1. No evidence of acute intra-abdominal pathology identified. No evidence of bowel obstruction. No bowel inflammatory changes seen. 2. Status postcholecystectomy. 3. Additional chronic findings as detailed above. Fleischner guidelines were followed.
[2022-01-03 04:56] VITALS: BP 132/79; BP 143/49; PULSE 72; PULSE 77; RESP 17; TEMP 36.9; O2SAT 98; O2SAT 99; BMI 33.0
[2022-01-03 05:03] VITALS: PULSE 70; RESP 16; O2SAT 98
[2022-01-03 05:06] LABS: Glucose, Whole Blood 460 mg/dL (60-115)
--- NOTE | 2022-01-03 05:08 | ED.ABDPAIN ---
HPI - Abdominal Pain General Chief Complaint: Abdominal Pain Stated Complaint: Diarrhea Time Seen by Provider: 01/03/22 05:02 Source: patient and bin tripper operator Mode of arrival: EMS Limitations: no limitations History of Present Illness HPI narrative: just admitted to [facility] - states her chest pain resolved no interventions done MD elicited complaint: abdominal pain (diarrhea) Onset (ago): day(s) (started Wednesday) Pain Consistency: constant Location: diffuse Severity: moderate Quality: cramping Migration to: no migration Exacerbating factors: eating Relieving factors: nothing Context: history of similar episodes (states this has happened to her in the past before) Associated symptoms: diarrhea Related Data Home Medications Medication Instructions Recorded Confirmed lorazepam 0.5 mg tablet 0.5 mg PO BID PRN 09/14/20 11/05/21 albuterol sulfate 90 mcg/actuation 2 puff INHALATION Q6H PRN 09/16/20 11/05/21 aerosol inhaler allopurinol 100 mg tablet 100 mg PO DAILY 09/16/20 11/05/21 aspirin 81 mg tablet,delayed 81 mg PO DAILY 09/16/20 11/05/21 release atorvastatin 40 mg tablet 40 mg PO BEDTIME 09/16/20 11/05/21 fluticasone furoate 100 1 inh INHALATION DAILY PRN 09/16/20 11/05/21 mcg-vilanterol 25 mcg/dose inhalation powder (Breo Ellipta) metoprolol succinate 50 mg 50 mg PO DAILY 09/16/20 11/05/21 tablet,extended release 24 hr (Toprol XL) insulin degludec 100 unit/mL (3 12 unit SUBCUT DAILY ml 11/13/20 11/05/21 mL) subcutaneous pen (Tresiba FlexTouch U-100 insulin) amlodipine 5 mg tablet 5 mg PO DAILY 12/22/20 11/05/21 ergocalciferol (vitamin D2) 1,250 1 cap PO SA@1000 12/22/20 11/05/21 mcg (50,000 unit) capsule ferrous sulfate 325 mg (65 mg 325 mg PO DAILY 12/22/20 11/05/21 iron) tablet (iron) tamsulosin 0.4 mg capsule 0.4 mg PO DAILY@1700 12/22/20 11/05/21 insulin aspart U-100 100 unit/mL 5 unit SUBCUT BIDAC 01/08/21 11/05/21 (3 mL) subcutaneous pen (Novolog Flexpen U-100 Insulin aspart) loperamide 2 mg tablet 2 mg PO QID PRN 01/08/21 11/05/21 melatonin 5 mg tablet 5 mg PO BEDTIME PRN 01/08/21 11/05/21 nitroglycerin 0.4 mg sublingual 0.4 mg SUBLINGUAL Q5M PRN 01/08/21 11/05/21 tablet gabapentin 100 mg capsule 200 mg PO TID 03/06/21 11/05/21 pantoprazole 20 mg tablet,delayed 1 tab PO DAILY 03/06/21 11/05/21 release acetaminophen 500 mg tablet 500 mg PO Q6H PRN 03/20/21 11/05/21 cholecalciferol (vitamin D3) 25 25 mcg PO DAILY 03/20/21 11/05/21 mcg (1,000 unit) capsule metoclopramide HCl 5 mg tablet 5 mg PO QID 03/20/21 11/05/21 pen needle, diabetic 31 gauge x #1200 ea 03/20/21 11/05/2104/06 Previous Rx's Medication Instructions Recorded furosemide 40 mg tablet 40 mg PO DAILY #90 tab 12/06/20 ciprofloxacin HCl 500 mg tablet 500 mg PO BID 7 Days #14 tab 06/08/21 acetaminophen 500 mg tablet 500 mg PO Q6H PRN #20 tab 08/09/21 (Tylenol Extra Strength) diclofenac sodium 1 % topical gel 2 g TOPICAL QID #100 g 08/09/21 lidocaine 4 % topical patch 1 patch TOPICAL DAILY PRN #30 ea 08/15/21 ondansetron 4 mg disintegrating 4 mg PO Q6-8H PRN #14 tab 08/20/21 tablet nitrofurantoin 100 mg PO Q12H 7 Days #14 cap 11/05/21 monohydrate/macrocrystals 100 mg capsule (Macrobid) cefuroxime axetil 250 mg tablet 250 mg PO BID 7 Days #14 tab 12/08/21 Allergies Allergy/AdvReac Type Severity Reaction Status Date / Time tetracycline [Tetracycline] Allergy Mild HIVES, Verified 12/27/21 12:22 anaphylaxis, anaphylaxis Review of Systems Review of Systems Constitutional : No Weight loss, No Fever, No Chills ENT/Mouth : No sore throat, No Rhinorrhea Eyes: No Swelling, No Redness Cardiovascular : No Chest Pain, No SOB, NoEdema Respiratory : No Cough, No Sputum, No Wheezing Gastrointestinal : Positive Nausea, no Vomiting, positive Diarrhea, positive abdominal Pain, No Hematochezia, No Melena Genitourinary : No Dysuria, No Urinary Frequency, No Hematuria, No Urgency Musculoskeletal : No joint pain, No Myalgias, No Joint Swelling Skin : No Skin Lesions, No rash Neuro : No Weakness, No Numbness, No Dizziness, No Headache Psych : No Anxiety/Panic, No Depression Heme/Lymph: No Bruising, No Lymphadenopathy Endocrine : No Polyuria, No Polydipsia All other systems reviewed and are negative. Physical Exam Vital Signs: Vital Signs: Last Vital Signs Temp 97.7 F 01/03/22 06:00 Pulse 66 01/03/22 06:00 Resp 16 01/03/22 06:00 BP 160/49 H 01/03/22 06:00 Pulse Ox 98 01/03/22 06:00 BMI result Body Mass Index 33.0 Appearance: Alert. Oriented X3. No acute distress. Eyes: Pupils equal, round and reactive to light. ENT: Pharynx normal. Neck: Normal inspection. Neck supple. CVS: Normal heart rate and rhythm. Pulses normal. Respiratory: No respiratory distress. Breath sounds normal. Abdomen: Soft and mild diffuse ttp no rebound Skin: Skin warm and dry. Normal skin color. Normal skin turgor. Extremities: No lower extremity edema. No calf ttp Neuro: Oriented X 3. No motor deficit. No sensory deficit. Course Course Course Narrative: signed out to Dr. Iyer pending CT scan MDM - Abdominal Pain MDM Narrative Medical decision making narrative: 61 yo female with hx of CAD s/p CABG, CKD, DM, IBS, GERD here with 5 days of diarrhea and abdominal pain at this time denies recent abx use - could be her IBS. Will need labs, c diff study, CT scan for colitis. IV dilaudid for pain, labs, UA. Dispo per results and findings. Lab Data Result diagrams: 01/03/22 05:56 01/03/22 05:56 Labs: Lab Results 01/03/22 01/03/22 01/03/22 Range/Units 05:02 05:56 05:56 WBC 11.4 H (4.8-10.8) X10*3/uL RBC 3.37 L (4.20-5.50) X10*6/uL Hgb 10.5 L (12.0-16.0) g/dl Hct 32.7 L (37.0-47.0) % MCV 97.0 (80.0-98.0) fL MCH 31.2 (27.0-33.0) pg MCHC 32.1 (31.0-35.0) g/dl RDW 13.4 (11.0-16.0) % Plt Count 195 (160-400) X10*3/uL MPV 10.7 (9.4-12.3) fL Immature Gran % (Auto) 0.6 H (0.0-0.4) % Neut % (Auto) 85.1 H (45-73) % Lymph % (Auto) 10.7 L (20-40) % [place] % (Auto) 1.8 L (2-11) % Eos % (Auto) 1.5 (0-4) % Baso % (Auto) 0.3 (0-2) % Lymph # (Auto) 1.2 (1.2-4.9) X10*3/uL [place] # (Auto) 0.2 (0.1-1.2) X10*3/uL Eos # (Auto) 0.2 (0.0-0.4) X10*3/uL Baso # (Auto) 0.0 (0.0-0.2) X10*3/uL Abs Immat Gran (auto) 0.07 H (0.00-0.03) X10*3/uL Absolute Neuts (auto) 9.7 H (2.0-8.3) x10*3/uL Absolute Nucleated RBC 0.000 (0.0-0.012) X10*3/uL Nucleated RBC % (auto) 0.0 (0.0-0.2) /100WBC Sodium 134 L (135-145) mmol/L Potassium 5.1 (3.3-5.1) mmol/L Chloride 102 (96-108) mmol/L Carbon Dioxide 21 L (22-29) mmol/L Anion Gap 16 (12-20) BUN 46 H (9-16) mg/dL Creatinine 2.44 H (0.5-1.4) mg/dL Estim Creat Clear Calc 23.4 Estimated GFR 20 POC Glucose 460 H* (60-115) mg/dL Random Glucose 486 H* (60-115) mg/dL Lactic Acid (0.5-2.0) mmol/L Calcium 8.8 D (8.4-10.2) mg/dL Magnesium 2.1 (1.6-2.6) mg/dL Total Bilirubin 0.3 (0.0-1.0) mg/dL Direct Bilirubin < 0.2 (0.0-0.5) mg/dL AST 18 (5-31) U/L ALT 17 (0-31) U/L Alkaline Phosphatase 105 (39-117) U/L Total Protein 7.1 (6.5-8.0) g/dL Albumin 3.6 (3.5-5.0) g/dL Lipase 78 (8-78) U/L COVID-19 (KENJI) (Negative) COVID-19 Clin Com 01/03/22 01/03/22 Range/Units 05:56 05:56 WBC (4.8-10.8) X10*3/uL RBC (4.20-5.50) X10*6/uL Hgb (12.0-16.0) g/dl Hct (37.0-47.0) % MCV (80.0-98.0) fL MCH (27.0-33.0) pg MCHC (31.0-35.0) g/dl RDW (11.0-16.0) % Plt Count (160-400) X10*3/uL MPV (9.4-12.3) fL Immature Gran % (Auto) (0.0-0.4) % Neut % (Auto) (45-73) % Lymph % (Auto) (20-40) % [place] % (Auto) (2-11) % Eos % (Auto) (0-4) % Baso % (Auto) (0-2) % Lymph # (Auto) (1.2-4.9) X10*3/uL [place] # (Auto) (0.1-1.2) X10*3/uL Eos # (Auto) (0.0-0.4) X10*3/uL Baso # (Auto) (0.0-0.2) X10*3/uL Abs Immat Gran (auto) (0.00-0.03) X10*3/uL Absolute Neuts (auto) (2.0-8.3) x10*3/uL Absolute Nucleated RBC (0.0-0.012) X10*3/uL Nucleated RBC % (auto) (0.0-0.2) /100WBC Sodium (135-145) mmol/L Potassium (3.3-5.1) mmol/L Chloride (96-108) mmol/L Carbon Dioxide (22-29) mmol/L Anion Gap (12-20) BUN (9-16) mg/dL Creatinine (0.5-1.4) mg/dL Estim Creat Clear Calc Estimated GFR POC Glucose (60-115) mg/dL Random Glucose (60-115) mg/dL Lactic Acid 1.6 (0.5-2.0) mmol/L Calcium (8.4-10.2) mg/dL Magnesium (1.6-2.6) mg/dL Total Bilirubin (0.0-1.0) mg/dL Direct Bilirubin (0.0-0.5) mg/dL AST (5-31) U/L ALT (0-31) U/L Alkaline Phosphatase (39-117) U/L Total Protein (6.5-8.0) g/dL Albumin (3.5-5.0) g/dL Lipase (8-78) U/L COVID-19 ([facility]JI) Negative (Negative) COVID-19 Clin Com See Note ECG Data Attestation: I personally reviewed and interpreted this ECG as follows: ECG interpretation date: 01/03/22 ECG interpretation time: 05:12 Interpretation: Rate: 71 Rhythm: NSR [place]: normal Normal P waves. Normal [place]. Normal QRS complex. ST T wave : normal inverted T waves inf leads - lateral leads qTC: normal prior studies: no change from dec 27 2021 The study has been interpreted contemporaneously by me. . Discharge Plan Discharge Clinical Impression: Abdominal pain Qualifiers: Abdominal location: generalized Qualified Code(s): R10.84 - Generalized abdominal pain Diarrhea Qualifiers: Diarrhea type: unspecified type Qualified Code(s): R19.7 - Diarrhea, unspecified Prescriptions: No Action furosemide 40 mg tablet 40 mg PO DAILY Qty: 90 3RF lorazepam 0.5 mg Tablet 0.5 mg PO BID PRN (Reason: Anxiety) 0RF atorvastatin 40 mg Tablet 40 mg PO BEDTIME 0RF metoprolol succinate [Toprol XL] 50 mg Tablet Extended Release 24 Hr 50 mg PO DAILY 0RF allopurinol 100 mg Tablet 100 mg PO DAILY 0RF albuterol sulfate 90 mcg/actuation Hfa Aerosol Inhaler 2 puff INHALATION Q6H PRN (Reason: Shortness Of Breath) 0RF Breo Ellipta 100-25 mcg/dose Blister With Device 1 inh INHALATION DAILY PRN (Reason: Shortness Of Breath) 0RF aspirin 81 mg Tablet,Delayed Release (Dr/Ec) 81 mg PO DAILY 0RF Hold Instructions: Resume on 01/13/21. ciprofloxacin HCl 500 mg tablet 500 mg PO BID 7 Days Qty: 14 0RF tamsulosin 0.4 mg capsule 0.4 mg PO DAILY@1700 0RF ferrous sulfate [iron] 325 mg (65 mg iron) Tablet 325 mg PO DAILY 0RF ergocalciferol (vitamin D2) 1,250 mcg (50,000 unit) capsule 1 cap PO SA@1000 0RF Rx Instructions: on saturdays amlodipine 5 mg tablet 5 mg PO DAILY 0RF insulin aspart U-100 [Novolog Flexpen U-100 Insulin] 100 unit/mL (3 mL) Insulin Pen 5 unit SUBCUT BIDAC 0RF loperamide 2 mg Tablet 2 mg PO QID PRN (Reason: Diarrhea) 0RF nitroglycerin 0.4 mg Tablet, Sublingual 0.4 mg SUBLINGUAL Q5M PRN (Reason: Chest Pain) 0RF melatonin 5 mg Tablet 5 mg PO BEDTIME PRN (Reason: Sleep) 0RF pantoprazole 20 mg tablet,delayed release (DR/EC) 1 tab PO DAILY 0RF gabapentin 100 mg capsule 200 mg PO TID 0RF diclofenac sodium 1 % gel 2 g topical QID Qty: 100 0RF Rx Instructions: apply to single elbow, wrist or hand; for hand includes palm/fingers/back of hand acetaminophen [Tylenol Extra Strength] 500 mg tablet 500 mg PO Q6H PRN (Reason: pain or fever) Qty: 20 0RF nitrofurantoin monohyd/m-cryst [Macrobid] 100 mg capsule 100 mg PO Q12H 7 Days Qty: 14 0RF Rx Instructions: must administer with a meal/food cefuroxime axetil 250 mg tablet 250 mg PO BID 7 Days Qty: 14 0RF ondansetron 4 mg tablet,disintegrating 4 mg PO Q6-8H PRN (Reason: nausea and vomiting) Qty: 14 0RF acetaminophen 500 mg tablet 500 mg PO Q6H PRN0RF metoclopramide HCl 5 mg tablet 5 mg PO QID 0RF (DME) pen needle, diabetic 31 gauge x 5/16 needle See Rx Instructions ea subcut .MEDSUPPLY Qty: 1200 0RF Rx Instructions: As directed cholecalciferol (vitamin D3) 25 mcg (1,000 unit) capsule 25 mcg PO DAILY 0RF Tresiba FlexTouch U-100 100 unit/mL (3 mL) insulin pen 12 unit subcut DAILY 0RF Rx Instructions: PT STATED PREVIOUSLY ON 40 UNITS AND WAS DECREASED TO 12 UNITS lidocaine 4 % adhesive patch,medicated 1 patch topical DAILY PRN (Reason: pain) Qty: 30 0RF PMFSH Past Medical History Attestation statement: The following information was validated with the patient. Medical History Acute heart failure with preserved ejection fraction Anemia Anxiety Arthritis Cardiac pacemaker in situ Carpal tunnel syndrome CHF (congestive heart failure) Chronic heart failure with preserved ejection fraction (HFpEF) COPD exacerbation Coronary artery disease CVA (cerebral vascular accident) Diabetes Fall Gastritis Gastroparesis Gastroparesis GERD (gastroesophageal reflux disease) Headache HLD (hyperlipidemia) HTN (hypertension) HTN (hypertension) Hypocalcemia Hypoxia IBS (irritable bowel syndrome) Knee pain, left Myocardial infarct Nausea and vomiting Orthostasis Renal failure Suprapatellar effusion of knee T2DM (type 2 diabetes mellitus) UTI (urinary tract infection) Surgical History H/O Achilles tendon repair History of appendectomy History of bladder surgery History of carpal tunnel release History of total hysterectomy with bilateral salpingo-oophorectomy (BSO) Hx of amputation Hx of CABG (~2019) Hx of cholecystectomy Hx of endoscopy Hx of knee surgery Hx of tonsillectomy Family History Family History Father No problems noted. 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
[2022-01-03] MEDS: Insulin Regular, Human 100 UNIT/ML 3 ML VIAL IVPUSH (05:49)
[2022-01-03] MEDS: ondansetron HCL 4 MG/2 ML VIAL IVPUSH (05:52)
[2022-01-03] MEDS: HYDROmorphone HCl 0.5 MG/0.5 ML SYRINGE IVPUSH ×2 (05:54→09:07)
[2022-01-03 06:00] VITALS: BP 160/49; PULSE 66; RESP 16; TEMP 36.5; O2SAT 98
[2022-01-03 06:01] LABS: MANUAL DIFF FLAG NO
[2022-01-03 06:02] LABS: Basophils Percent Auto 0.3 % (0-2); Eosinophils Absolute Auto 0.2 X10*3/uL (0.0-0.4); Eosinophils Percent Auto 1.5 % (0-4); Hematocrit 32.7 % (37.0-47.0); Hemoglobin 10.5 g/dl (12.0-16.0); Imm Gran Abs Auto 0.07 X10*3/uL (0.00-0.03); Imm Gran Pct Auto 0.6 % (0.0-0.4); Lymphocytes Absolute Auto 1.2 X10*3/uL (1.2-4.9); Lymphocytes Percent Auto 10.7 % (20-40); Mean Corpuscular HGB Conc 32.1 g/dl (31.0-35.0); Mean Corpuscular Hemoglobin 31.2 pg (27.0-33.0); Mean Platelet Volume 10.7 fL (9.4-12.3); Monocytes Absolute Auto 0.2 X10*3/uL (0.1-1.2); Monocytes Percent Auto 1.8 % (2-11); Neutrophils Absolute Auto 9.7 x10*3/uL (2.0-8.3); Neutrophils Percent Auto 85.1 % (45-73); Platelet Count 195 X10*3/uL (160-400); Red Blood Count 3.37 X10*6/uL (4.20-5.50); Red Cell Distribution Width 13.4 % (11.0-16.0); White Blood Count 11.4 X10*3/uL (4.8-10.8)
[2022-01-03] MEDS: 0.9 % Sodium Chloride 500 ML IV (06:05)
[2022-01-03 06:14] LABS: Lactic Acid 1.6 mmol/L (0.5-2.0)
[2022-01-03 06:19] LABS: COVID-19 Test Negative (Negative)
[2022-01-03 06:23] LABS: Alanine Aminotransferase 17 U/L (0-31); Albumin Level 3.6 g/dL (3.5-5.0); Alkaline Phosphatase 105 U/L (39-117); Anion Gap 16 (12-20); Aspartate Amino Transferase 18 U/L (5-31); Bilirubin Direct < 0.2 mg/dL (0.0-0.5); Bilirubin Total 0.3 mg/dL (0.0-1.0); Blood Urea Nitrogen 46 mg/dL (9-16); Calcium 8.8 mg/dL (8.4-10.2); Carbon Dioxide 21 mmol/L (22-29); Chloride 102 mmol/L (96-108); Creatinine Clr Calc Pharmacy 23.4; Estimated Glomerular Filt Rate 20; Glucose Random 486 mg/dL (60-115); Lipase 78 U/L (8-78); Magnesium 2.1 mg/dL (1.6-2.6); Potassium 5.1 mmol/L (3.3-5.1); Sodium 134 mmol/L (135-145); Total Protein 7.1 g/dL (6.5-8.0)
[2022-01-03 09:01] LABS: Appearance Urine CLEAR; Color Urine STRAW; Glucose Urine UA >=1000 MG/DL (NEG); Leukocyte Esterase Urine NEG (NEG); Nitrite Urine NEG (NEG); PH 5.5 (5.0-8.0); UACC Culture Trigger NO; Urine Blood NEG (NEG); Urine Ketones NEG (NEG); Urine Protein 2+ MG/DL (NEG-TRACE)
[2022-01-03 09:11] LABS: Hyaline Casts Urine 0-2 /LPF; Squamous Epithelial Cell Urine 1+ /LPF
[2022-01-03 09:12] LABS: Bacteria Urine TRACE /LPF; RBC Urine 0 /HPF (0); WBC Urine 0-2 /HPF (0-4)
[2022-01-03 11:16] LABS: Glucose, Whole Blood 316 mg/dL (60-115)
== END 2022-01-03 14:43 | disposition home or self-care (01) ==
PROVIDERS: Emergency Provider Emergency Medicine
DX: R10.84 Generalized abdominal pain (principal); R19.7 Diarrhea, unspecified; Z20.822 Contact with and (suspected) exposure to COVID-19; E11.22 Type 2 diabetes mellitus with diabetic chronic kidney disease; I13.0 Hypertensive heart and chronic kidney disease with heart failure and stage 1 through stage 4 chronic kidney disease, or unspecified chronic kidney disease; N18.9 Chronic kidney disease, unspecified; I50.9 Heart failure, unspecified; Z79.4 Long term (current) use of insulin
CPT/HCPCS: 36415; 74176; 80048; 80076; 81001; 81003; 82947; 83605; 83690; 83735; 85025; 87040; 87635; 93005; 96361; 96374; 96375; 96376; 99284; J1170; J2405

== ENCOUNTER 2022-01-09 06:05 | Emergency (ER) | payer OTHER, SELFPAY ==
--- NOTE | ~2022-01-09 | XR_ITS ---
EXAMINATION: XR CHEST CLINICAL INFORMATION: Chest pain COMPARISON: 12/04/2021 TECHNIQUE: Portable 6:58 AM view of the chest was obtained. FINDINGS: There is a previous cardiac surgery. Dual-chamber pacer device in place unchanged. No significant abnormality is noted involving the heart, lungs, mediastinum, bony thorax or soft tissues. XR/XR chest 1V IMPRESSION: No active chest disease.
[2022-01-09 06:13] VITALS: BP 168/73; BP 168/86; PULSE 68; PULSE 72; PULSE 73; RESP 14; RESP 16; TEMP 36.8; O2SAT 95; O2SAT 96; O2SAT 97; BMI 32.7
--- NOTE | 2022-01-09 06:38 | ED.GENADULT ---
HPI - General Adult General Chief complaint: Weakness Stated complaint: weakness Time Seen by Provider: 01/09/22 06:32 Source: patient and EMS Mode of arrival: EMS Limitations: no limitations History of Present Illness HPI narrative: 61-year-old female well known to our ED staff for her frequent ED visits patient suffer from insomnia prescribed trazodone by her primary doctor but patient claims that she could not sleep last night, patient also has a history of anxiety, at 05:00 patient had bilateral hand numbness and pain that is resolved now, patient is also complaining of nausea and epigastric pain with chest pain since last night. Patient was just evaluated for similar presentation. And patient had a negative workup including labs and CT of the abdomen and pelvis. Patient end up to be transferred to [facility] for non STEMI and elevated troponin, patient did not require cardiac catheterization or cardiac intervention at [facility]. Patient did not take her daily morning medication and found to be hypertensive in the emergency department patient will be given her home medication amlodipine 5 mg and metoprolol 50 mg p.o. Patient is known to have history of anxiety, CKD, CHF, CAD, status post CABG, diabetes, gastroparesis, IBS, GERD. Related Data Home Medications Medication Instructions Recorded Confirmed lorazepam 0.5 mg tablet 0.5 mg PO BID PRN 09/14/20 11/05/21 albuterol sulfate 90 mcg/actuation 2 puff INHALATION Q6H PRN 09/16/20 11/05/21 aerosol inhaler allopurinol 100 mg tablet 100 mg PO DAILY 09/16/20 11/05/21 aspirin 81 mg tablet,delayed 81 mg PO DAILY 09/16/20 11/05/21 release atorvastatin 40 mg tablet 40 mg PO BEDTIME 09/16/20 11/05/21 fluticasone furoate 100 1 inh INHALATION DAILY PRN 09/16/20 11/05/21 mcg-vilanterol 25 mcg/dose inhalation powder (Breo Ellipta) metoprolol succinate 50 mg 50 mg PO DAILY 09/16/20 11/05/21 tablet,extended release 24 hr (Toprol XL) insulin degludec 100 unit/mL (3 12 unit SUBCUT DAILY ml 11/13/20 11/05/21 mL) subcutaneous pen (Tresiba FlexTouch U-100 insulin) amlodipine 5 mg tablet 5 mg PO DAILY 12/22/20 11/05/21 ergocalciferol (vitamin D2) 1,250 1 cap PO SA@1000 12/22/20 11/05/21 mcg (50,000 unit) capsule ferrous sulfate 325 mg (65 mg 325 mg PO DAILY 12/22/20 11/05/21 iron) tablet (iron) tamsulosin 0.4 mg capsule 0.4 mg PO DAILY@1700 12/22/20 11/05/21 insulin aspart U-100 100 unit/mL 5 unit SUBCUT BIDAC 01/08/21 11/05/21 (3 mL) subcutaneous pen (Novolog Flexpen U-100 Insulin aspart) loperamide 2 mg tablet 2 mg PO QID PRN 01/08/21 11/05/21 melatonin 5 mg tablet 5 mg PO BEDTIME PRN 01/08/21 11/05/21 nitroglycerin 0.4 mg sublingual 0.4 mg SUBLINGUAL Q5M PRN 01/08/21 11/05/21 tablet gabapentin 100 mg capsule 200 mg PO TID 03/06/21 11/05/21 pantoprazole 20 mg tablet,delayed 1 tab PO DAILY 03/06/21 11/05/21 release acetaminophen 500 mg tablet 500 mg PO Q6H PRN 03/20/21 11/05/21 cholecalciferol (vitamin D3) 25 25 mcg PO DAILY 03/20/21 11/05/21 mcg (1,000 unit) capsule metoclopramide HCl 5 mg tablet 5 mg PO QID 03/20/21 11/05/21 pen needle, diabetic 31 gauge x #1200 ea 03/20/21 11/05/2104/06 Previous Rx's Medication Instructions Recorded furosemide 40 mg tablet 40 mg PO DAILY #90 tab 12/06/20 ciprofloxacin HCl 500 mg tablet 500 mg PO BID 7 Days #14 tab 06/08/21 acetaminophen 500 mg tablet 500 mg PO Q6H PRN #20 tab 08/09/21 (Tylenol Extra Strength) diclofenac sodium 1 % topical gel 2 g TOPICAL QID #100 g 08/09/21 lidocaine 4 % topical patch 1 patch TOPICAL DAILY PRN #30 ea 08/15/21 ondansetron 4 mg disintegrating 4 mg PO Q6-8H PRN #14 tab 08/20/21 tablet nitrofurantoin 100 mg PO Q12H 7 Days #14 cap 11/05/21 monohydrate/macrocrystals 100 mg capsule (Macrobid) cefuroxime axetil 250 mg tablet 250 mg PO BID 7 Days #14 tab 12/08/21 Allergies Allergy/AdvReac Type Severity Reaction Status Date / Time tetracycline [Tetracycline] Allergy Mild HIVES, Verified 12/27/21 12:22 anaphylaxis, anaphylaxis Review of Systems Review of Systems: All other systems are reviewed and are negative Constitutional: Reports as per HPI and Reports no additional constitutional complaints Eyes: Reports as per HPI and Reports no additional eye complaints Reports system reviewed and no additional complaints, except as documented Cardiovascular: Reports as per HPI and Reports no additional cardiovascular complaints Respiratory: Reports as per HPI and Reports no additional respiratory complaints Gastrointestinal: Reports as per HPI and Reports no additional gastrointestinal complaints Genitourinary: Reports no additional female genitourinary complaints Musculoskeletal: Reports no additional musculoskeletal complaints Skin/Breast: Reports system reviewed and no additional complaints, except as docu Psychiatric: Reports no additional psychiatric complaints Endocrine: Reports no additional endocrine complaints Hematologic/Lymphatic: Reports no additional hematologic/lymphatic complaints Allergic/Immunologic: Reports no additional allergic/immunologic complaints Reports system reviewed and no additional complaints, except as documented and Reports Abnormal speech present [facility] Past Medical History Medical History Acute heart failure with preserved ejection fraction Anemia Anxiety Arthritis Cardiac pacemaker in situ Carpal tunnel syndrome CHF (congestive heart failure) Chronic heart failure with preserved ejection fraction (HFpEF) COPD exacerbation Coronary artery disease CVA (cerebral vascular accident) Diabetes Fall Gastritis Gastroparesis Gastroparesis GERD (gastroesophageal reflux disease) Headache HLD (hyperlipidemia) HTN (hypertension) HTN (hypertension) Hypocalcemia Hypoxia IBS (irritable bowel syndrome) Knee pain, left Myocardial infarct Nausea and vomiting Orthostasis Renal failure Suprapatellar effusion of knee T2DM (type 2 diabetes mellitus) UTI (urinary tract infection) Surgical History H/O Achilles tendon repair History of appendectomy History of bladder surgery History of carpal tunnel release History of total hysterectomy with bilateral salpingo-oophorectomy (BSO) Hx of amputation Hx of CABG (~2019) Hx of cholecystectomy Hx of endoscopy Hx of knee surgery Hx of tonsillectomy Family History Family History Father No problems noted. Mother Diabetes Hypercholesteremia Hypertension Stroke Social History Social History Household Members: Family Household Members Other:: 1 Housing: Apartment Do you presently have visiting nurse or other home services: Yes (ups driver, vna) Alcohol intake: never Patient Tobacco Use Status: Former Tobacco user Years Smoked: 20 Second Hand Smoke Exposure: No Use of substances other than those prescribed or required for medical reasons: No Advance Directives: No service: No Current occupational status: disabled Physical Exam ED Vital Signs: Vital Signs - 24 hr 01/09/22 06:13 01/09/22 06:44 01/09/22 11:18 Temperature 98.2 F 98.8 F Pulse Rate 72 72 67 Respiratory Rate 14 16 15 Blood Pressure 168/86 H 193/82 H 152/65 H Pulse Oximetry 97 96 93 BMI result Body Mass Index 32.7 Vital signs have been reviewed as appeared to be correct. Blood pressure normal. Heart rate normal. Respiration rate normal. Temperature normal. Oxygen saturation normal. Appearance: Alert. Oriented X3. No acute distress. Appear anxious Head: Normal external exam. Normocephalic. Atraumatic. No Woodard signs noted. No raccoon eyes noted Eyes: PERRLA. EOMI. Conjunctiva and sclera normal. Eyelids normal. ENT: TM's Normal. Pharynx normal. Uvula midline. Moist mucous membranes. No trismus noted. No drooling noted. No muffled voice noted. Neck: Normal inspection. Neck supple. FROM. No adenopathy. Thyroid Normal. No meningeal signs. No neck mass noted. CVS: Normal heart rate and rhythm. Heart sound normal. No murmurs noted. Pulses normal throughout. Respiratory: No respiratory distress. Painless inspiration. Breath sounds normal. No wheezes/rales/rhonchi noted. Chest nontender. No accessory muscle usage noted or decreased air movement noted. Abdomen: Soft and nontender. Bowel sounds normal in all 4 quadrants. No distention noted. No organomegaly noted. No visible injury noted. Back: No CVA tenderness. Full range of motion noted. Skin: Skin warm and dry. Normal skin color. Normal skin turgor. No rashes/lesions/lacerations noted. Extremities: No lower extremity edema. Extremities exhibit normal range of motion. Extremities nontender. Neuro: Oriented X 3. Cranial nerve exam: II-XII are grossly intact No motor deficit. No sensory deficit. Reflexes normal. NIH Stroke Scale Level of Consciousness: Alert Level of Consciousness Questions: Answers both questions correctly Level of Consciousness Commands: Performs both tasks correctly Best Gaze: Normal Visual: No visual loss Facial Palsy: Normal Motor Arm (Right): No drift Motor Arm (Left): No drift Motor Leg (Right): No drift Motor Leg (Left): No drift Limb Ataxia: Absent Sensory: Normal Best Language: No aphasia Dysarthia: Normal Extinction and Inattention: No abnormality Score: 0 Course Course Course Narrative: Assessment and plan. 61-year-old female diabetic with diabetic gastroparesis came in with abdominal pain, patient just had a recent negative workup for similar symptoms. Will get outpatient gastroenterology referral. Found to have elevated troponin 375, and repeat troponin was 352 overall troponin is trending down from last week which was in the 900s. Patient has no chest pain now, no EKG new changes or ischemic changes, patient required no cardiac intervention at [facility] last week, the case discussed with Dr. Zelaya patient can be discharged with close follow-up with his office. Patient's symptoms is well controlled with small dose of morphine. Medical Decision Making Medical Records Medical records reviewed: Yes I reviewed the patient's medical records. Lab Data Lab results reviewed: Yes I reviewed the patient's lab results. Result diagrams: 01/09/22 07:25 01/09/22 07:25 Labs: Lab Results 01/09/22 01/09/22 01/09/22 Range/Units 07:25 07:25 07:25 WBC 9.7 (4.8-10.8) X10*3/uL RBC 3.60 L (4.20-5.50) X10*6/uL Hgb 11.1 L (12.0-16.0) g/dl Hct 34.6 L (37.0-47.0) % MCV 96.1 (80.0-98.0) fL MCH 30.8 (27.0-33.0) pg MCHC 32.1 (31.0-35.0) g/dl RDW 13.2 (11.0-16.0) % Plt Count 253 D (160-400) X10*3/uL MPV 10.4 (9.4-12.3) fL Immature Gran % (Auto) 0.5 H (0.0-0.4) % Neut % (Auto) 79.8 H (45-73) % Lymph % (Auto) 11.8 L (20-40) % [place] % (Auto) 6.0 (2-11) % Eos % (Auto) 1.6 (0-4) % Baso % (Auto) 0.3 (0-2) % Lymph # (Auto) 1.1 L (1.2-4.9) X10*3/uL [place] # (Auto) 0.6 (0.1-1.2) X10*3/uL Eos # (Auto) 0.2 (0.0-0.4) X10*3/uL Baso # (Auto) 0.0 (0.0-0.2) X10*3/uL Abs Immat Gran (auto) 0.05 H (0.00-0.03) X10*3/uL Absolute Neuts (auto) 7.7 (2.0-8.3) x10*3/uL Absolute Nucleated RBC 0.000 (0.0-0.012) X10*3/uL Nucleated RBC % (auto) 0.0 (0.0-0.2) /100WBC Sodium 139 (135-145) mmol/L Potassium 5.5 H (3.3-5.1) mmol/L Chloride 106 (96-108) mmol/L Carbon Dioxide 26 (22-29) mmol/L Anion Gap 13 (12-20) BUN 29 H (9-16) mg/dL Creatinine 1.75 H (0.5-1.4) mg/dL Estim Creat Clear Calc 32.5 Estimated GFR 29 Random Glucose 263 H (60-115) mg/dL Calcium 9.1 (8.4-10.2) mg/dL Total Bilirubin 0.3 (0.0-1.0) mg/dL Direct Bilirubin < 0.2 (0.0-0.5) mg/dL AST 18 (5-31) U/L ALT 12 (0-31) U/L Alkaline Phosphatase 103 (39-117) U/L Troponin I High Sens 375.3 H* D (<3.5-17.0) ng/L Total Protein 7.7 (6.5-8.0) g/dL Albumin 3.8 (3.5-5.0) g/dL Lipase 18 (8-78) U/L Urine Color Urine Appearance Urine pH (5.0-8.0) Ur Specific [place] (1.005-1.025) Urine Protein (NEG-TRACE) MG/DL Urine Glucose (UA) (NEG) MG/DL Urine Ketones (NEG) MG/DL Urine Blood (NEG) Urine Nitrite (NEG) Ur Leukocyte Esterase (NEG) Urine RBC (0) /HPF Urine WBC (0-4) /HPF Ur Squamous Epith Cells /LPF Urine Bacteria /LPF 01/09/22 01/09/22 Range/Units 07:44 09:58 WBC (4.8-10.8) X10*3/uL RBC (4.20-5.50) X10*6/uL Hgb (12.0-16.0) g/dl Hct (37.0-47.0) % MCV (80.0-98.0) fL MCH (27.0-33.0) pg MCHC (31.0-35.0) g/dl RDW (11.0-16.0) % Plt Count (160-400) X10*3/uL MPV (9.4-12.3) fL Immature Gran % (Auto) (0.0-0.4) % Neut % (Auto) (45-73) % Lymph % (Auto) (20-40) % [place] % (Auto) (2-11) % Eos % (Auto) (0-4) % Baso % (Auto) (0-2) % Lymph # (Auto) (1.2-4.9) X10*3/uL [place] # (Auto) (0.1-1.2) X10*3/uL Eos # (Auto) (0.0-0.4) X10*3/uL Baso # (Auto) (0.0-0.2) X10*3/uL Abs Immat Gran (auto) (0.00-0.03) X10*3/uL Absolute Neuts (auto) (2.0-8.3) x10*3/uL Absolute Nucleated RBC (0.0-0.012) X10*3/uL Nucleated RBC % (auto) (0.0-0.2) /100WBC Sodium (135-145) mmol/L Potassium (3.3-5.1) mmol/L Chloride (96-108) mmol/L Carbon Dioxide (22-29) mmol/L Anion Gap (12-20) BUN (9-16) mg/dL Creatinine (0.5-1.4) mg/dL Estim Creat Clear Calc Estimated GFR Random Glucose (60-115) mg/dL Calcium (8.4-10.2) mg/dL Total Bilirubin (0.0-1.0) mg/dL Direct Bilirubin (0.0-0.5) mg/dL AST (5-31) U/L ALT (0-31) U/L Alkaline Phosphatase (39-117) U/L Troponin I High Sens 352.5 H* (<3.5-17.0) ng/L Total Protein (6.5-8.0) g/dL Albumin (3.5-5.0) g/dL Lipase (8-78) U/L Urine Color YELLOW Urine Appearance CLEAR Urine pH 5.5 (5.0-8.0) Ur Specific [place] 1.020 (1.005-1.025) Urine Protein 2+ H (NEG-TRACE) MG/DL Urine Glucose (UA) >=1000 H (NEG) MG/DL Urine Ketones NEG (NEG) MG/DL Urine Blood TRACE (NEG) Urine Nitrite NEG (NEG) Ur Leukocyte Esterase NEG (NEG) Urine RBC 1-4 (0) /HPF Urine WBC 0 (0-4) /HPF Ur Squamous Epith Cells 1+ /LPF Urine Bacteria NONE /LPF Imaging Data Chest x-ray: Attestation: I personally reviewed and interpreted this imaging study as follows: Radiologist's impression: No active chest disease. ECG Data Attestation: I personally reviewed and interpreted this ECG as follows: Interpretation: Atrial sensed ventricular paced rhythm at 73 beats per minutes. Discharge Plan Discharge Clinical Impression: Anxiety, Abdominal pain, Elevated troponin Patient Disposition: Home, Self-Care Instructions: Abdominal Pain (ED) Prescriptions: No Action furosemide 40 mg tablet 40 mg PO DAILY Qty: 90 3RF lorazepam 0.5 mg Tablet 0.5 mg PO BID PRN (Reason: Anxiety) 0RF atorvastatin 40 mg Tablet 40 mg PO BEDTIME 0RF metoprolol succinate [Toprol XL] 50 mg Tablet Extended Release 24 Hr 50 mg PO DAILY 0RF allopurinol 100 mg Tablet 100 mg PO DAILY 0RF albuterol sulfate 90 mcg/actuation Hfa Aerosol Inhaler 2 puff INHALATION Q6H PRN (Reason: Shortness Of Breath) 0RF Breo Ellipta 100-25 mcg/dose Blister With Device 1 inh INHALATION DAILY PRN (Reason: Shortness Of Breath) 0RF aspirin 81 mg Tablet,Delayed Release (Dr/Ec) 81 mg PO DAILY 0RF Hold Instructions: Resume on 01/13/21. ciprofloxacin HCl 500 mg tablet 500 mg PO BID 7 Days Qty: 14 0RF tamsulosin 0.4 mg capsule 0.4 mg PO DAILY@1700 0RF ferrous sulfate [iron] 325 mg (65 mg iron) Tablet 325 mg PO DAILY 0RF ergocalciferol (vitamin D2) 1,250 mcg (50,000 unit) capsule 1 cap PO SA@1000 0RF Rx Instructions: on saturdays amlodipine 5 mg tablet 5 mg PO DAILY 0RF insulin aspart U-100 [Novolog Flexpen U-100 Insulin] 100 unit/mL (3 mL) Insulin Pen 5 unit SUBCUT BIDAC 0RF loperamide 2 mg Tablet 2 mg PO QID PRN (Reason: Diarrhea) 0RF nitroglycerin 0.4 mg Tablet, Sublingual 0.4 mg SUBLINGUAL Q5M PRN (Reason: Chest Pain) 0RF melatonin 5 mg Tablet 5 mg PO BEDTIME PRN (Reason: Sleep) 0RF pantoprazole 20 mg tablet,delayed release (DR/EC) 1 tab PO DAILY 0RF gabapentin 100 mg capsule 200 mg PO TID 0RF diclofenac sodium 1 % gel 2 g topical QID Qty: 100 0RF Rx Instructions: apply to single elbow, wrist or hand; for hand includes palm/fingers/back of hand acetaminophen [Tylenol Extra Strength] 500 mg tablet 500 mg PO Q6H PRN (Reason: pain or fever) Qty: 20 0RF nitrofurantoin monohyd/m-cryst [Macrobid] 100 mg capsule 100 mg PO Q12H 7 Days Qty: 14 0RF Rx Instructions: must administer with a meal/food cefuroxime axetil 250 mg tablet 250 mg PO BID 7 Days Qty: 14 0RF ondansetron 4 mg tablet,disintegrating 4 mg PO Q6-8H PRN (Reason: nausea and vomiting) Qty: 14 0RF acetaminophen 500 mg tablet 500 mg PO Q6H PRN0RF metoclopramide HCl 5 mg tablet 5 mg PO QID 0RF (DME) pen needle, diabetic 31 gauge x 5/16 needle See Rx Instructions ea subcut .MEDSUPPLY Qty: 1200 0RF Rx Instructions: As directed cholecalciferol (vitamin D3) 25 mcg (1,000 unit) capsule 25 mcg PO DAILY 0RF Tresiba FlexTouch U-100 100 unit/mL (3 mL) insulin pen 12 unit subcut DAILY 0RF Rx Instructions: PT STATED PREVIOUSLY ON 40 UNITS AND WAS DECREASED TO 12 UNITS lidocaine 4 % adhesive patch,medicated 1 patch topical DAILY PRN (Reason: pain) Qty: 30 0RF Referrals: Doug Ravi MD [Physician] - 2 days Prudencio Zelaya MD [Physician] - 2 days
[2022-01-09 06:44] VITALS: BP 193/82; PULSE 72; RESP 16; O2SAT 96
--- NOTE | 2022-01-09 06:46 | ECG_ITS ---
Test Reason : WEAKNESS Blood Pressure : / mmHG Vent. Rate : 073 BPM Atrial Rate : 073 BPM P-R Int : 216 ms QRS Dur : 120 ms QT Int : 446 ms P-R-T Axes : 064 097 132 degrees QTc Int : 491 ms Atrial-sensed ventricular-paced rhythm with prolonged AV conduction with occasional supraventricular complexes Abnormal ECG When compared with ECG of 03-JAN-2022 05:01, Vent. rate has increased BY 2 BPM Referred By: Claudia Abreu Electronically Signed By:LG SALAZAR MD
[2022-01-09 07:30] LABS: MANUAL DIFF FLAG NO
[2022-01-09 07:41] LABS: Basophils Percent Auto 0.3 % (0-2); Eosinophils Absolute Auto 0.2 X10*3/uL (0.0-0.4); Eosinophils Percent Auto 1.6 % (0-4); Hematocrit 34.6 % (37.0-47.0); Hemoglobin 11.1 g/dl (12.0-16.0); Imm Gran Abs Auto 0.05 X10*3/uL (0.00-0.03); Imm Gran Pct Auto 0.5 % (0.0-0.4); Lymphocytes Absolute Auto 1.1 X10*3/uL (1.2-4.9); Lymphocytes Percent Auto 11.8 % (20-40); Mean Corpuscular HGB Conc 32.1 g/dl (31.0-35.0); Mean Corpuscular Hemoglobin 30.8 pg (27.0-33.0); Mean Corpuscular Volume 96.1 fL (80.0-98.0); Mean Platelet Volume 10.4 fL (9.4-12.3); Monocytes Absolute Auto 0.6 X10*3/uL (0.1-1.2); Neutrophils Absolute Auto 7.7 x10*3/uL (2.0-8.3); Neutrophils Percent Auto 79.8 % (45-73); Platelet Count 253 X10*3/uL (160-400); Red Cell Distribution Width 13.2 % (11.0-16.0); White Blood Count 9.7 X10*3/uL (4.8-10.8)
[2022-01-09 07:50] LABS: Alanine Aminotransferase 12 U/L (0-31); Albumin Level 3.8 g/dL (3.5-5.0); Alkaline Phosphatase 103 U/L (39-117); Anion Gap 13 (12-20); Aspartate Amino Transferase 18 U/L (5-31); Bilirubin Direct < 0.2 mg/dL (0.0-0.5); Bilirubin Total 0.3 mg/dL (0.0-1.0); Blood Urea Nitrogen 29 mg/dL (9-16); Calcium 9.1 mg/dL (8.4-10.2); Carbon Dioxide 26 mmol/L (22-29); Chloride 106 mmol/L (96-108); Creatinine Clr Calc Pharmacy 32.5; Estimated Glomerular Filt Rate 29; Glucose Random 263 mg/dL (60-115); Lipase 18 U/L (8-78); Potassium 5.5 mmol/L (3.3-5.1); Sodium 139 mmol/L (135-145); Total Protein 7.7 g/dL (6.5-8.0)
[2022-01-09 07:53] LABS: Appearance Urine CLEAR; Color Urine YELLOW; Glucose Urine UA >=1000 MG/DL (NEG); Leukocyte Esterase Urine NEG (NEG); Nitrite Urine NEG (NEG); PH 5.5 (5.0-8.0); UACC Culture Trigger NO; Urine Blood TRACE (NEG); Urine Ketones NEG (NEG); Urine Protein 2+ MG/DL (NEG-TRACE)
[2022-01-09 07:54] LABS: Troponin-I High Sensitivity 375.3 ng/L (<3.5-17.0)
[2022-01-09 08:05] LABS: Squamous Epithelial Cell Urine 1+ /LPF; WBC Urine 0 /HPF (0-4)
[2022-01-09] MEDS: Metoprolol Tartrate 50 MG TABLET PO (08:45)
[2022-01-09] MEDS: amLODIPine Besylate 5 MG TABLET PO (08:45)
[2022-01-09] MEDS: Magnesium Hydrox/Alum Hydrox 30 ML ORAL.SUSP PO (08:46)
--- NOTE | 2022-01-09 08:55 | PC.NURSE ---
pt difficult stick, [address] peripheral iv. Dr. Abreu not able to place iv via ultrasound guidance. iv meds changed to po. will continue to monitor.
[2022-01-09] MEDS: Ondansetron ODT 4 MG TAB.RAPDIS TRANSLINGU (09:19)
[2022-01-09] MEDS: Famotidine 20 MG TABLET PO (09:19)
[2022-01-09 10:26] LABS: Troponin-I High Sensitivity 352.5 ng/L (<3.5-17.0)
[2022-01-09] MEDS: Morphine Sulfate 2 MG/ML CARTRIDGE 1 MG IVPUSH (10:59)
[2022-01-09 11:18] VITALS: BP 152/65; PULSE 67; RESP 15; TEMP 37.1; O2SAT 93
--- NOTE | 2022-01-09 11:41 | PC.NURSE ---
this publications writer called to pt's room by her daughter who reported that the pt was having a seizure. pt's daughter reported that she began having a seizure similar to the one she had last night and this morning. her daughter reported that the seizure lasted approximately one minute. pt noted to be post ictal when this publications writer arrived in her room. pt alert asking for her daughter and wanted to know where she was. pt re-oriented to place and situation. pt answering questions appropriately, daughter at bedside. IV med given as documented. will continue to monitor
[2022-01-09] MEDS: ondansetron HCL 4 MG/2 ML VIAL IVPUSH (13:43)
== END 2022-01-09 13:53 | disposition home or self-care (01) ==
PROVIDERS: Emergency Provider Emergency Medicine
DX: F41.9 Anxiety disorder, unspecified (principal); R10.9 Unspecified abdominal pain; R77.8 Other specified abnormalities of plasma proteins; E11.22 Type 2 diabetes mellitus with diabetic chronic kidney disease; I13.0 Hypertensive heart and chronic kidney disease with heart failure and stage 1 through stage 4 chronic kidney disease, or unspecified chronic kidney disease; N18.9 Chronic kidney disease, unspecified; I50.9 Heart failure, unspecified; Z79.4 Long term (current) use of insulin
CPT/HCPCS: 36415; 71045; 80048; 80076; 81001; 83690; 84484; 85025; 93005; 96361; 96374; 96375; 96376; 99284; 99285; J2270; J2405

== ENCOUNTER 2022-01-09 19:22 | Inpatient (IN) | payer OTHER, SELFPAY ==
--- NOTE | ~2022-01-09 | CT_ITS ---
EXAMINATION: CT HEAD WITHOUT CONTRAST CLINICAL INFORMATION: Hypertensive urgency COMPARISON: Head CT December 22, 2020 TECHNIQUE: Contiguous axial imaging was performed from the skull base to vertex without intravenous administration of contrast. This CT examination was performed using dose optimization techniques as appropriate, variously including the following: *Automated exposure control *Adjustment of mA and/or kV according to patient size (this includes techniques or standardized protocols for targeted exams where dose is matched to indication/reason for exam; i.e. extremities or head) *Use of iterative reconstruction technique DLP: 700 mGy-cm FINDINGS: There is no evidence of acute intracranial hemorrhage or territorial infarction. No abnormal mass effect or midline shift is appreciated. Mike-white differentiation is well preserved. No extra-axial fluid collections. The ventricular system and cortical sulci are prominent, consistent with age-appropriate volume loss. There are areas of low density in the periventricular and subcortical white matter, most consistent with sequelae of microvascular ischemic change. The osseous structures and soft tissues are normal. There are calcifications of the cavernous internal carotid arteries. The visualized paranasal sinuses and mastoid air cells are well aerated. CT/CT head/brain wo con IMPRESSION: Chronic microvascular ischemic changes with no CT evidence of acute intracranial abnormality.
--- NOTE | ~2022-01-09 | CT_ITS ---
EXAMINATION: CT ABDOMEN AND PELVIS WITHOUT CONTRAST CLINICAL INFORMATION: Abdominal pain and vomiting. COMPARISON: CT abdomen and pelvis 01/03/2022 TECHNIQUE: Multidetector volumetric imaging was performed from the superior aspect of the liver through the pubic symphysis. Sagittal and coronal reformatted images were obtained on the technologist's workstation. This CT examination was performed using dose optimization techniques as appropriate, variously including the following: *Automated exposure control *Adjustment of mA and/or kV according to patient size (this includes techniques or standardized protocols for targeted exams where dose is matched to indication/reason for exam; i.e. extremities or head) *Use of iterative reconstruction technique DLP: 642 mGy-cm FINDINGS: LUNG BASES: The lung bases are clear. There are pacer electrodes in right atrium and right ventricle. LIVER, GALLBLADDER, AND BILIARY TREE: The liver is normal in size, shape, and attenuation. No focal hepatic lesion or biliary ductal dilatation is present. The gallbladder has been surgically removed. PANCREAS: Unremarkable. SPLEEN: Unremarkable. ADRENAL GLANDS: Unremarkable. KIDNEYS AND URETERS: The kidneys are normal in size, shape, and attenuation. No hydronephrosis, hydroureter, or calculi seen. No perinephric stranding. BLADDER: Unremarkable. GASTROINTESTINAL TRACT: There is scattered stool and gas seen throughout the colon without significant distention. The small bowel loops are normal caliber. Appendix is not visualized. ABDOMINAL WALL: There is a supraumbilical abdominal wall hernia containing fat. LYMPH NODES: Normal. VASCULAR: Unremarkable. PELVIC VISCERA: The uterus is atrophic or surgically removed. There is no free fluid. No abnormal pelvic lymph nodes. There is a right presacral electrode for pain management. OSSEOUS STRUCTURES: Unremarkable. CT/CT abdomen pelvis wo con IMPRESSION: No acute intra-abdominal process seen. Mild constipation. No major change compared to previous study 01/03/2022 Fleischner guidelines were followed.
[2022-01-09 19:25] VITALS: BP 136/82; PULSE 77; RESP 20; TEMP 37.2; O2SAT 97; BMI 33.3
--- NOTE | 2022-01-09 21:59 | ECG_ITS ---
Test Reason : nausea/vomiting Blood Pressure : / mmHG Vent. Rate : 078 BPM Atrial Rate : 078 BPM P-R Int : 228 ms QRS Dur : 120 ms QT Int : 458 ms P-R-T Axes : 010 100 105 degrees QTc Int : 522 ms AV dual-paced complexes with Atrial tachycardia (short run) Nonspecific ST abnormality Abnormal ECG When compared with ECG of 09-JAN-2022 07:11, Vent. rate has increased BY 5 BPM Referred By: Jade Gracia Electronically Signed By:LG SALAZAR MD
--- NOTE | 2022-01-09 22:00 | ED_ITS ---
HPI - Abdominal Pain General Chief Complaint: Nausea/Vomiting/Diarrhea Stated Complaint: abdominal pain Time Seen by Provider: 01/09/22 21:52 Source: patient and old records reviewed Mode of arrival: EMS Limitations: no limitations History of Present Illness MD elicited complaint: abdominal pain (n/v) Pertinent past history: other (gastroparesis) Onset (ago): day(s) (last night 1 day ago) Pain Consistency: constant Location: epigastric Severity: moderate Quality: aching Radiation: none Migration to: no migration Exacerbating factors: eating Relieving factors: nothing Context: history of similar episodes Associated symptoms: nausea and vomiting Treatments prior to arrival: other (seen this AM in ED labs, EKG, troponins x 2, IV zofran and morphine) Related Data Home Medications Medication Instructions Recorded Confirmed lorazepam 0.5 mg tablet 0.5 mg PO BID PRN 09/14/20 11/05/21 albuterol sulfate 90 mcg/actuation 2 puff INHALATION Q6H PRN 09/16/20 11/05/21 aerosol inhaler allopurinol 100 mg tablet 100 mg PO DAILY 09/16/20 11/05/21 aspirin 81 mg tablet,delayed 81 mg PO DAILY 09/16/20 11/05/21 release atorvastatin 40 mg tablet 40 mg PO BEDTIME 09/16/20 11/05/21 fluticasone furoate 100 1 inh INHALATION DAILY PRN 09/16/20 11/05/21 mcg-vilanterol 25 mcg/dose inhalation powder (Breo Ellipta) metoprolol succinate 50 mg 50 mg PO DAILY 09/16/20 11/05/21 tablet,extended release 24 hr (Toprol XL) insulin degludec 100 unit/mL (3 12 unit SUBCUT DAILY ml 11/13/20 11/05/21 mL) subcutaneous pen (Tresiba FlexTouch U-100 insulin) amlodipine 5 mg tablet 5 mg PO DAILY 12/22/20 11/05/21 ergocalciferol (vitamin D2) 1,250 1 cap PO SA@1000 12/22/20 11/05/21 mcg (50,000 unit) capsule ferrous sulfate 325 mg (65 mg 325 mg PO DAILY 12/22/20 11/05/21 iron) tablet (iron) tamsulosin 0.4 mg capsule 0.4 mg PO DAILY@1700 12/22/20 11/05/21 insulin aspart U-100 100 unit/mL 5 unit SUBCUT BIDAC 01/08/21 11/05/21 (3 mL) subcutaneous pen (Novolog Flexpen U-100 Insulin aspart) loperamide 2 mg tablet 2 mg PO QID PRN 01/08/21 11/05/21 melatonin 5 mg tablet 5 mg PO BEDTIME PRN 01/08/21 11/05/21 nitroglycerin 0.4 mg sublingual 0.4 mg SUBLINGUAL Q5M PRN 01/08/21 11/05/21 tablet gabapentin 100 mg capsule 200 mg PO TID 03/06/21 11/05/21 pantoprazole 20 mg tablet,delayed 1 tab PO DAILY 03/06/21 11/05/21 release acetaminophen 500 mg tablet 500 mg PO Q6H PRN 03/20/21 11/05/21 cholecalciferol (vitamin D3) 25 25 mcg PO DAILY 03/20/21 11/05/21 mcg (1,000 unit) capsule metoclopramide HCl 5 mg tablet 5 mg PO QID 03/20/21 11/05/21 pen needle, diabetic 31 gauge x #1200 ea 03/20/21 11/05/21/ Previous Rx's Medication Instructions Recorded furosemide 40 mg tablet 40 mg PO DAILY #90 tab 12/06/20 ciprofloxacin HCl 500 mg tablet 500 mg PO BID 7 Days #14 tab 06/08/21 acetaminophen 500 mg tablet 500 mg PO Q6H PRN #20 tab 08/09/21 (Tylenol Extra Strength) diclofenac sodium 1 % topical gel 2 g TOPICAL QID #100 g 08/09/21 lidocaine 4 % topical patch 1 patch TOPICAL DAILY PRN #30 ea 08/15/21 ondansetron 4 mg disintegrating 4 mg PO Q6-8H PRN #14 tab 08/20/21 tablet nitrofurantoin 100 mg PO Q12H 7 Days #14 cap 11/05/21 monohydrate/macrocrystals 100 mg capsule (Macrobid) cefuroxime axetil 250 mg tablet 250 mg PO BID 7 Days #14 tab 12/08/21 Allergies Allergy/AdvReac Type Severity Reaction Status Date / Time tetracycline [Tetracycline] Allergy Mild HIVES, Verified 12/27/21 12:22 anaphylaxis, anaphylaxis Review of Systems Review of Systems Constitutional : No Weight loss, No Fever, No Chills ENT/Mouth : No sore throat, No Rhinorrhea Eyes: No Swelling, No Redness Cardiovascular : No Chest Pain, No SOB, NoEdema Respiratory : No Cough, No Sputum, No Wheezing Gastrointestinal : Positive Nausea, Positive Vomiting, no Diarrhea, positive abdominal Pain, No Hematochezia, No Melena Genitourinary : No Dysuria, No Urinary Frequency, No Hematuria, No Urgency Musculoskeletal : No joint pain, No Myalgias, No Joint Swelling Skin : No Skin Lesions, No rash Neuro : No Weakness, No Numbness, No Dizziness, No Headache Psych : No Anxiety/Panic, No Depression Heme/Lymph: No Bruising, No Lymphadenopathy Endocrine : No Polyuria, No Polydipsia All other systems reviewed and are negative. [facility] Past Medical History Attestation statement: The following information was validated with the patient. Source: old records reviewed Medical History Acute heart failure with preserved ejection fraction Anemia Anxiety Arthritis Cardiac pacemaker in situ Carpal tunnel syndrome CHF (congestive heart failure) Chronic heart failure with preserved ejection fraction (HFpEF) COPD exacerbation Coronary artery disease CVA (cerebral vascular accident) Diabetes Fall Gastritis Gastroparesis Gastroparesis GERD (gastroesophageal reflux disease) Headache HLD (hyperlipidemia) HTN (hypertension) HTN (hypertension) Hypocalcemia Hypoxia IBS (irritable bowel syndrome) Knee pain, left Myocardial infarct Nausea and vomiting Orthostasis Renal failure Suprapatellar effusion of knee T2DM (type 2 diabetes mellitus) UTI (urinary tract infection) Surgical History H/O Achilles tendon repair History of appendectomy History of bladder surgery History of carpal tunnel release History of total hysterectomy with bilateral salpingo-oophorectomy (BSO) Hx of amputation Hx of CABG (~2019) Hx of cholecystectomy Hx of endoscopy Hx of knee surgery Hx of tonsillectomy Family History Family History Father No problems noted. Mother Diabetes Hypercholesteremia Hypertension Stroke Social History Social History Household Members: Family Household Members Other:: 1 Housing: Apartment Do you presently have visiting nurse or other home services: Yes (patient care secretary, vna) Alcohol intake: never Patient Tobacco Use Status: Former Tobacco user Years Smoked: 20 Smoked in Last 30 Days: No Second Hand Smoke Exposure: No Use of substances other than those prescribed or required for medical reasons: No Advance Directives: No Patient : No service: No Current occupational status: disabled Physical Exam ED Vital Signs: Vital Signs - 24 hr 01/09/22 19:25 01/09/22 22:49 01/09/22 23:30 Temperature 98.9 F 98.8 F Pulse Rate 77 68 67 Respiratory Rate 20 16 16 Blood Pressure 136/82 191/82 H 190/87 H Pulse Oximetry 97 99 99 01/10/22 00:20 01/10/22 00:52 01/10/22 01:55 Temperature Pulse Rate 67 74 78 Respiratory Rate 18 Blood Pressure 180/77 H 158/75 H 142/72 H Pulse Oximetry 100 98 100 BMI result Body Mass Index 33.3 Appearance: Alert. Oriented X3. Mild acute distress. Dry heaving appears uncomfortable Eyes: Pupils equal, round and reactive to light. ENT: Pharynx dry MM Neck: Normal inspection. Neck supple. CVS: Normal heart rate and rhythm. Pulses normal. Respiratory: No respiratory distress. Breath sounds normal. Abdomen: Soft but diffuse ttp no rebound Skin: Skin warm and dry. pale skin color. Normal skin turgor. Extremities: No lower extremity edema. No calf ttp Neuro: Oriented X 3. No motor deficit. No sensory deficit. Course Course Course Narrative: troponin elevated hx of same in past but no CP/SOB likely due to HTN and demand given vomiting and not able to keep anything down didn't take any of her BP medications today BP 190s in ED, will dose her with metoprolol. repeat IV ativan, IV labetalol ordered, cannot her tolerate her oral metoprolol troponin likely elevated due to HTN and not ACS just admitted to [facility] (start of the month) for trop in 900s and no cardiac interventions done at that time. Cardiology was consulted today for her troponins in 300s and no interventions recommended. BP good response to labetalol here. repeat troponin decreased at baseline from visit yesterday - no CP/SOB at this time will admit for intractable n/v and gastroparesis MDM - Abdominal Pain MDM Narrative Medical decision making narrative: 61 yo female with hx of IDDM, CAD, gastroparesis, CKD, IBS, CVA, gastritis who comes in with c/o abdominal pain and n/v that started 1 day ago - she was seen this AM for same given IV morphine and zofran but states she went home and symptoms persisted. She had troponins x 2 in 300s but this is lower than her baseline of 900s from recent [facility] stay. At this time her symptoms are consistent with her prior gastroparesis bouts - will obtain labs, CT scan for obstruction, IV zofran/dilaudid for symptoms. Dispo per results/findings and clinical improvement. Lab Data Result diagrams: 01/09/22 23:02 01/09/22 23:02 Labs: Lab Results 01/09/22 01/09/22 01/09/22 Range/Units 23:02 23:02 23:02 WBC 9.7 (4.8-10.8) X10*3/uL RBC 3.72 L (4.20-5.50) X10*6/uL Hgb 11.6 L (12.0-16.0) g/dl Hct 35.7 L (37.0-47.0) % MCV 96.0 (80.0-98.0) fL MCH 31.2 (27.0-33.0) pg MCHC 32.5 (31.0-35.0) g/dl RDW 13.2 (11.0-16.0) % Plt Count 264 (160-400) X10*3/uL MPV 10.0 (9.4-12.3) fL Immature Gran % (Auto) 0.4 (0.0-0.4) % Neut % (Auto) 77.7 H (45-73) % Lymph % (Auto) 14.9 L (20-40) % Emanuel % (Auto) 6.4 (2-11) % Eos % (Auto) 0.3 (0-4) % Baso % (Auto) 0.3 (0-2) % Lymph # (Auto) 1.5 (1.2-4.9) X10*3/uL Emanuel # (Auto) 0.6 (0.1-1.2) X10*3/uL Eos # (Auto) 0.0 (0.0-0.4) X10*3/uL Baso # (Auto) 0.0 (0.0-0.2) X10*3/uL Abs Immat Gran (auto) 0.04 H (0.00-0.03) X10*3/uL Absolute Neuts (auto) 7.6 (2.0-8.3) x10*3/uL Absolute Nucleated RBC 0.000 (0.0-0.012) X10*3/uL Nucleated RBC % (auto) 0.0 (0.0-0.2) /100WBC VBG pH (7.32-7.43) VBG pCO2 mmHg VBG pO2 mmHg VBG HCO3 (22-26) mmol/L VBG O2 Saturation % VBG Base Excess mmol/L Sodium 140 (135-145) mmol/L Potassium 5.5 H (3.3-5.1) mmol/L Chloride 105 (96-108) mmol/L Carbon Dioxide 27 (22-29) mmol/L Anion Gap 14 (12-20) BUN 30 H (9-16) mg/dL Creatinine 1.71 H (0.5-1.4) mg/dL Estim Creat Clear Calc 37.4 Estimated GFR 30 Random Glucose 230 H (60-115) mg/dL Calcium 9.4 (8.4-10.2) mg/dL Magnesium 2.4 (1.6-2.6) mg/dL Total Bilirubin 0.4 (0.0-1.0) mg/dL Direct Bilirubin < 0.2 (0.0-0.5) mg/dL AST 22 (5-31) U/L ALT 11 (0-31) U/L Alkaline Phosphatase 106 (39-117) U/L Troponin I High Sens 425.7 H* (<3.5-17.0) ng/L Total Protein 8.1 H (6.5-8.0) g/dL Albumin 4.0 (3.5-5.0) g/dL Lipase 15 (8-78) U/L 01/09/22 01/10/22 Range/Units 23:04 02:14 WBC (4.8-10.8) X10*3/uL RBC (4.20-5.50) X10*6/uL Hgb (12.0-16.0) g/dl Hct (37.0-47.0) % MCV (80.0-98.0) fL MCH (27.0-33.0) pg MCHC (31.0-35.0) g/dl RDW (11.0-16.0) % Plt Count (160-400) X10*3/uL MPV (9.4-12.3) fL Immature Gran % (Auto) (0.0-0.4) % Neut % (Auto) (45-73) % Lymph % (Auto) (20-40) % Emanuel % (Auto) (2-11) % Eos % (Auto) (0-4) % Baso % (Auto) (0-2) % Lymph # (Auto) (1.2-4.9) X10*3/uL Emanuel # (Auto) (0.1-1.2) X10*3/uL Eos # (Auto) (0.0-0.4) X10*3/uL Baso # (Auto) (0.0-0.2) X10*3/uL Abs Immat Gran (auto) (0.00-0.03) X10*3/uL Absolute Neuts (auto) (2.0-8.3) x10*3/uL Absolute Nucleated RBC (0.0-0.012) X10*3/uL Nucleated RBC % (auto) (0.0-0.2) /100WBC VBG pH 7.38 (7.32-7.43) VBG pCO2 50 mmHg VBG pO2 37 mmHg VBG HCO3 30 H (22-26) mmol/L VBG O2 Saturation 51.0 % VBG Base Excess 4.1 mmol/L Sodium (135-145) mmol/L Potassium (3.3-5.1) mmol/L Chloride (96-108) mmol/L Carbon Dioxide (22-29) mmol/L Anion Gap (12-20) BUN (9-16) mg/dL Creatinine (0.5-1.4) mg/dL Estim Creat Clear Calc Estimated GFR Random Glucose (60-115) mg/dL Calcium (8.4-10.2) mg/dL Magnesium (1.6-2.6) mg/dL Total Bilirubin (0.0-1.0) mg/dL Direct Bilirubin (0.0-0.5) mg/dL AST (5-31) U/L ALT (0-31) U/L Alkaline Phosphatase (39-117) U/L Troponin I High Sens 372.4 H* (<3.5-17.0) ng/L Total Protein (6.5-8.0) g/dL Albumin (3.5-5.0) g/dL Lipase (8-78) U/L ECG Data Attestation: I personally reviewed and interpreted this ECG as follows: ECG interpretation date: 01/09/22 ECG interpretation time: 22:50 Interpretation: Rate: 78 Rhythm: NSR - pacer spikes noted atrial paced [place]: normal Normal P waves. Normal [place]. Normal QRS complex. ST T wave : no [place]UR[place], ST depressions subtle I and aVL, nonspecific qTC: prolonged prior studies: no change from prior The study has been interpreted contemporaneously by me. . Discharge Plan Discharge Clinical Impression: Diabetic gastroparesis, Elevated troponin HTN (hypertension) Qualifiers: Hypertension type: unspecified Qualified Code(s): I10 - Essential (primary) hypertension Vomiting Qualifiers: Vomiting type: unspecified Nausea presence: with nausea Qualified Code(s): R11.2 - Nausea with vomiting, unspecified Patient Disposition: Still a Patient Prescriptions: No Action furosemide 40 mg tablet 40 mg PO DAILY Qty: 90 3RF lorazepam 0.5 mg Tablet 0.5 mg PO BID PRN (Reason: Anxiety) 0RF atorvastatin 40 mg Tablet 40 mg PO BEDTIME 0RF metoprolol succinate [Toprol XL] 50 mg Tablet Extended Release 24 Hr 50 mg PO DAILY 0RF allopurinol 100 mg Tablet 100 mg PO DAILY 0RF albuterol sulfate 90 mcg/actuation Hfa Aerosol Inhaler 2 puff INHALATION Q6H PRN (Reason: Shortness Of Breath) 0RF Breo Ellipta 100-25 mcg/dose Blister With Device 1 inh INHALATION DAILY PRN (Reason: Shortness Of Breath) 0RF aspirin 81 mg Tablet,Delayed Release (Dr/Ec) 81 mg PO DAILY 0RF Hold Instructions: Resume on 01/13/21. ciprofloxacin HCl 500 mg tablet 500 mg PO BID 7 Days Qty: 14 0RF tamsulosin 0.4 mg capsule 0.4 mg PO DAILY@1700 0RF ferrous sulfate [iron] 325 mg (65 mg iron) Tablet 325 mg PO DAILY 0RF ergocalciferol (vitamin D2) 1,250 mcg (50,000 unit) capsule 1 cap PO SA@1000 0RF Rx Instructions: on saturdays amlodipine 5 mg tablet 5 mg PO DAILY 0RF insulin aspart U-100 [Novolog Flexpen U-100 Insulin] 100 unit/mL (3 mL) Insulin Pen 5 unit SUBCUT BIDAC 0RF loperamide 2 mg Tablet 2 mg PO QID PRN (Reason: Diarrhea) 0RF nitroglycerin 0.4 mg Tablet, Sublingual 0.4 mg SUBLINGUAL Q5M PRN (Reason: Chest Pain) 0RF melatonin 5 mg Tablet 5 mg PO BEDTIME PRN (Reason: Sleep) 0RF pantoprazole 20 mg tablet,delayed release (DR/EC) 1 tab PO DAILY 0RF gabapentin 100 mg capsule 200 mg PO TID 0RF diclofenac sodium 1 % gel 2 g topical QID Qty: 100 0RF Rx Instructions: apply to single elbow, wrist or hand; for hand includes palm/fingers/back of hand acetaminophen [Tylenol Extra Strength] 500 mg tablet 500 mg PO Q6H PRN (Reason: pain or fever) Qty: 20 0RF nitrofurantoin monohyd/m-cryst [Macrobid] 100 mg capsule 100 mg PO Q12H 7 Days Qty: 14 0RF Rx Instructions: must administer with a meal/food cefuroxime axetil 250 mg tablet 250 mg PO BID 7 Days Qty: 14 0RF ondansetron 4 mg tablet,disintegrating 4 mg PO Q6-8H PRN (Reason: nausea and vomiting) Qty: 14 0RF acetaminophen 500 mg tablet 500 mg PO Q6H PRN0RF metoclopramide HCl 5 mg tablet 5 mg PO QID 0RF (DME) pen needle, diabetic 31 gauge x 5/16 needle See Rx Instructions ea subcut .MEDSUPPLY Qty: 1200 0RF Rx Instructions: As directed cholecalciferol (vitamin D3) 25 mcg (1,000 unit) capsule 25 mcg PO DAILY 0RF Tresiba FlexTouch U-100 100 unit/mL (3 mL) insulin pen 12 unit subcut DAILY 0RF Rx Instructions: PT STATED PREVIOUSLY ON 40 UNITS AND WAS DECREASED TO 12 UNITS lidocaine 4 % adhesive patch,medicated 1 patch topical DAILY PRN (Reason: pain) Qty: 30 0RF
[2022-01-09 22:49] VITALS: BP 191/82; PULSE 68; RESP 16; TEMP 37.1; O2SAT 99
--- NOTE | 2022-01-09 22:51 | PC.NURSE ---
AYUSH ESQUIVEL IS AWARE OF PATIENT HIGH BLOOD PRESSURE ,PATIENT WAS ASSISTED TO BEDSIDE COMMODE BY THIS PCT .
[2022-01-09 23:06] LABS: MANUAL DIFF FLAG NO
[2022-01-09 23:07] LABS: Basophils Percent Auto 0.3 % (0-2); Eosinophils Percent Auto 0.3 % (0-4); Hematocrit 35.7 % (37.0-47.0); Hemoglobin 11.6 g/dl (12.0-16.0); Imm Gran Abs Auto 0.04 X10*3/uL (0.00-0.03); Imm Gran Pct Auto 0.4 % (0.0-0.4); Lymphocytes Absolute Auto 1.5 X10*3/uL (1.2-4.9); Lymphocytes Percent Auto 14.9 % (20-40); Mean Corpuscular HGB Conc 32.5 g/dl (31.0-35.0); Mean Corpuscular Hemoglobin 31.2 pg (27.0-33.0); Monocytes Absolute Auto 0.6 X10*3/uL (0.1-1.2); Monocytes Percent Auto 6.4 % (2-11); Neutrophils Absolute Auto 7.6 x10*3/uL (2.0-8.3); Neutrophils Percent Auto 77.7 % (45-73); Platelet Count 264 X10*3/uL (160-400); Red Blood Count 3.72 X10*6/uL (4.20-5.50); Red Cell Distribution Width 13.2 % (11.0-16.0); White Blood Count 9.7 X10*3/uL (4.8-10.8)
[2022-01-09] MEDS: HYDROmorphone HCl 1 MG/ML SYRINGE IVPUSH (23:07)
[2022-01-09] MEDS: ondansetron HCL 4 MG/2 ML VIAL IVPUSH (23:08)
[2022-01-09] MEDS: 0.9 % Sodium Chloride 500 ML IV (23:08)
[2022-01-09 23:09] LABS: Venous Blood Gas Refer to POC result
[2022-01-09 23:10] LABS: VBG Base Excess 4.1 mmol/L; VBG HCO3 30 mmol/L (22-26); VBG pCO2 50 mmHg; VBG pH 7.38 (7.32-7.43); VBG pO2 37 mmHg
[2022-01-09 23:29] LABS: Alanine Aminotransferase 11 U/L (0-31); Alkaline Phosphatase 106 U/L (39-117); Anion Gap 14 (12-20); Aspartate Amino Transferase 22 U/L (5-31); Bilirubin Direct < 0.2 mg/dL (0.0-0.5); Bilirubin Total 0.4 mg/dL (0.0-1.0); Blood Urea Nitrogen 30 mg/dL (9-16); Calcium 9.4 mg/dL (8.4-10.2); Carbon Dioxide 27 mmol/L (22-29); Chloride 105 mmol/L (96-108); Creatinine Clr Calc Pharmacy 37.4; Estimated Glomerular Filt Rate 30; Glucose Random 230 mg/dL (60-115); Lipase 15 U/L (8-78); Magnesium 2.4 mg/dL (1.6-2.6); Potassium 5.5 mmol/L (3.3-5.1); Sodium 140 mmol/L (135-145); Total Protein 8.1 g/dL (6.5-8.0)
[2022-01-09 23:30] VITALS: BP 190/87; PULSE 67; RESP 16; O2SAT 99
[2022-01-09 23:30] LABS: Troponin-I High Sensitivity 425.7 ng/L (<3.5-17.0)
[2022-01-10] VITALS (16 sets, daily range): BP systolic 142–257; BP diastolic 69–126; PULSE 67–97; RESP 12–18; TEMP 36.4–36.6; O2SAT 95–100
[2022-01-10] MEDS: LORazepam 2 MG/ML VIAL 1 MG IVPUSH (00:36)
[2022-01-10] MEDS: Labetalol HCL 100 MG/20 ML VIAL 10 MG IVPUSH ×4 (00:36→16:40)
[2022-01-10] MEDS: HYDROmorphone HCl 0.5 MG/0.5 ML SYRINGE IVPUSH ×3 (02:30→19:52)
--- NOTE | 2022-01-10 02:36 | PC.NURSE ---
Addendum entered by Trevon Carrillo RN 01/10/22 04:27: No significant changes. Lida remains asleep in bed 6, arousable to verbal stimuli,. She is aware that she is TBADM and verbalizes an understanding of this. Will continue to monitor. Original Note: I assumed care of this pt upon her arrival to bed 6. She presented for evaluation of continues nausea and vomiting. She states she was seen in the ED earlier for similar symptoms and was D/C'd home without any findings, however the nausea and vomiting persisted at home. On arrival she has c/o diffuse abdominal pain and she is vomiting small amounts of liquid yellow emesis. She denies chest pain. Respirations non-labored, she is speaking in full sentences. SHe denies difficulty voiding, states her last BM was one day ago. IV access/labs were obtained shortly after arrival. Her BP was noted to be 180's/100. MD aware and requested I administer Labetalol IVP (see eMAR for times and doses), which I gave and her BP has improved to 140's/80's. Will continue to monitor Lida
[2022-01-10 02:39] LABS: Troponin-I High Sensitivity 372.4 ng/L (<3.5-17.0)
[2022-01-10 03:17] LABS: COVID-19 Test Negative (Negative)
--- NOTE | 2022-01-10 04:42 | P.HPHOSP_ITS ---
History of Present Illness Date of Service: 01/10/22 Chief Complaint: Nausea/vomiting 61-year-old female with a past medical history of hypertension, hyperlipidemia, diabetes, gastroparesis, history of CVA, CHF, history of cardiac pacemaker, COPD, osteoporosis, chronic kidney disease, GERD; presented to the hospital today with a chief complaint of nausea/vomiting. Patient reports that over the past 2 days she has been having nausea and vomiting; had multiple episodes of vomiting; denies any blood in the vomitus. But noted bilious vomiting. Report the symptoms are similar to the last time when she had flare-up of her gastroparesis but this time it is severe in intensity. Reports she has not eaten in the past couple days. Reports have diffuse abdominal discomfort. Denies any diarrhea. Patient also reports she has chest discomfort; burning in nature; denies any lightheadedness or dizziness. Denies any shortness of breath or dyspnea on exertion. Denies any fever chills cough. Denies any urinary symptoms. Review of all other systems is negative except mentioned above ER course: Per ER team patient noted to have multiple episodes of bilious vomiting; CT abdomen showed no acute findings; on labs noted to have creatinine at baseline; but troponin; EKG nonischemic; discussed with Dr. Zelaya-suggested monitor on telemetry, presumed to be in the setting of demand/reduced clearance from renal insufficiency; no heparin recommended. Admitted to the hospital for further management. [facility] Medical History Acute heart failure with preserved ejection fraction Anemia Anxiety Arthritis Cardiac pacemaker in situ Carpal tunnel syndrome CHF (congestive heart failure) Chronic heart failure with preserved ejection fraction (HFpEF) COPD exacerbation Coronary artery disease CVA (cerebral vascular accident) Diabetes Fall Gastritis Gastroparesis Gastroparesis GERD (gastroesophageal reflux disease) Headache HLD (hyperlipidemia) HTN (hypertension) HTN (hypertension) Hypocalcemia Hypoxia IBS (irritable bowel syndrome) Knee pain, left Myocardial infarct Nausea and vomiting Orthostasis Renal failure Suprapatellar effusion of knee T2DM (type 2 diabetes mellitus) UTI (urinary tract infection) Family History Father No problems noted. Mother Diabetes Hypercholesteremia Hypertension Stroke Surgical History H/O Achilles tendon repair History of appendectomy History of bladder surgery History of carpal tunnel release History of total hysterectomy with bilateral salpingo-oophorectomy (BSO) Hx of amputation Hx of CABG (~2018) Hx of cholecystectomy Hx of endoscopy Hx of knee surgery Hx of tonsillectomy Social History Household Members: Family Household Members Other:: 1 Housing: Apartment Do you presently have visiting nurse or other home services: Yes (AM/PM med nurse) Alcohol intake: never Patient Tobacco Use Status: Former Tobacco user Years Smoked: 20 Second Hand Smoke Exposure: No service: No Current occupational status: disabled Meds Allergies Allergy/AdvReac Type Severity Reaction Status Date / Time tetracycline [Tetracycline] Allergy Mild HIVES, Verified 12/27/21 12:22 anaphylaxis, anaphylaxis Active Medications: Current Medications Dextrose (Dextrose 50 % 25 Gm/50 Ml Syringe) 25 gm IVPUSH Q15M PRN; Protocol PRN Reason: per Hypoglycemia Standing Ord. Glucose (Glucose Gel 15 Gm Gel..Gram.) 15 gm PO Q15M PRN; Protocol PRN Reason: per Hypoglycemia Standing Ord. Insulin Human Lispro (Insulin Lispro 100 Unit/Ml 3 Ml Vial) 0 unit SUBCUT QIDACHS [facility]; Protocol Home Medications Medication Instructions Recorded Confirmed Last Taken Type lorazepam 0.5 mg tablet 0.5 mg PO BID PRN 09/14/20 01/21/22 Unknown History albuterol sulfate 90 mcg/actuation 2 puff INHALATION Q6H PRN 09/16/20 01/21/22 03/05/21 History aerosol inhaler allopurinol 100 mg tablet 100 mg PO DAILY 09/16/20 01/21/22 03/05/21 History aspirin 81 mg tablet,delayed 81 mg PO DAILY 09/16/20 01/21/22 03/05/21 History release fluticasone furoate 100 1 inh INHALATION DAILY PRN 09/16/20 01/21/22 03/05/21 History mcg-vilanterol 25 mcg/dose inhalation powder (Breo Ellipta) metoprolol succinate 50 mg 50 mg PO DAILY 09/16/20 01/21/22 03/05/21 History tablet,extended release 24 hr (Toprol XL) insulin degludec 100 unit/mL (3 32 unit SUBCUT DAILY ml 11/13/20 01/21/22 03/05/21 History mL) subcutaneous pen (Tresiba FlexTouch U-100 insulin) ferrous sulfate 325 mg (65 mg 325 mg PO DAILY 12/22/20 01/21/22 03/05/21 History iron) tablet (iron) tamsulosin 0.4 mg capsule 0.4 mg PO DAILY@1700 12/22/20 01/21/22 03/05/21 History insulin aspart U-100 100 unit/mL See Rx Instructions .ROUTE .COMPLEX 01/08/21 01/21/22 03/05/21 History (3 mL) subcutaneous pen (Novolog Flexpen U-100 Insulin aspart) melatonin 5 mg tablet 5 mg PO BEDTIME PRN 01/08/21 01/21/22 03/05/21 History nitroglycerin 0.4 mg sublingual 0.4 mg SUBLINGUAL Q5M PRN 01/08/21 01/21/22 Unknown History tablet gabapentin 100 mg capsule 200 mg PO TID 03/06/21 01/21/22 03/05/21 History cholecalciferol (vitamin D3) 25 25 mcg PO DAILY 03/20/21 01/21/22 Unknown History mcg (1,000 unit) capsule metoclopramide HCl 5 mg tablet 5 mg PO QID 03/20/21 01/21/22 Unknown History pen needle, diabetic 31 gauge x #1200 ea 03/20/21 01/10/22 Unknown History 04/06 acetaminophen 325 mg tablet 2 tab PO Q4H PRN 01/10/22 01/21/22 Unknown History ipratropium bromide 21 mcg (0.03 1 spray INTRANASAL USEASDIRECTD 01/10/22 Unknown History %) nasal spray meloxicam 7.5 mg tablet 1 tab PO DAILY 01/10/22 01/21/22 Unknown History pantoprazole 40 mg tablet,delayed 1 tab PO DAILY 01/10/22 01/21/22 Unknown History release trazodone 50 mg tablet 0.5 tab PO BEDTIME PRN 01/10/22 01/21/22 Unknown History atorvastatin 80 mg tablet 80 mg PO BEDTIME 01/21/22 01/21/22 Unknown History linagliptin 5 mg tablet (Tradjenta) 5 mg PO DAILY 01/21/22 01/21/22 Unknown History lisinopril 5 mg tablet 5 mg PO DAILY 01/21/22 01/21/22 Unknown History loperamide 2 mg capsule 0 mg PO 01/21/22 01/21/22 Unknown History Physical Exam Vital Signs and Narrative: Vital Signs: Last Vital Signs Temp 98.8 F 01/09/22 22:49 Pulse 78 01/10/22 01:55 Resp 18 01/10/22 01:55 BP 142/72 H 01/10/22 01:55 Pulse Ox 100 01/10/22 01:55 BMI result Body Mass Index 33.3 Gen: Appears be in no acute distress HEENT: NCAT, Moist mucosa. Pulmonary: Vesicular breath sounds, fair air entry CVS: Normal S1-S2 Abdomen: BS+, Soft, mildly tender diffusely Extremities: Warm well perfused Neuro: Alert and awake. Grossly nonfocal Results Labs CBC and Chem 7: 01/11/22 06:12 01/11/22 06:12 Labs: Laboratory Results - last 24 hr 01/09/22 01/09/22 01/09/22 23:02 23:02 23:04 MCV 96.0 MCH 31.2 MCHC 32.5 RDW 13.2 Plt Count 264 MPV 10.0 Immature Gran % (Auto) 0.4 Neut % (Auto) 77.7 H Lymph % (Auto) 14.9 L Leake % (Auto) 6.4 Eos % (Auto) 0.3 Baso % (Auto) 0.3 Lymph # (Auto) 1.5 Leake # (Auto) 0.6 Eos # (Auto) 0.0 Baso # (Auto) 0.0 Abs Immat Gran (auto) 0.04 H Absolute Neuts (auto) 7.6 Absolute Nucleated RBC 0.000 Nucleated RBC % (auto) 0.0 VBG pH 7.38 VBG pCO2 50 VBG pO2 37 VBG HCO3 30 H VBG O2 Saturation 51.0 VBG Base Excess 4.1 Anion Gap 14 Estim Creat Clear Calc 37.4 Estimated GFR 30 Random Glucose 230 H Calcium 9.4 Magnesium 2.4 Total Bilirubin 0.4 Direct Bilirubin < 0.2 AST 22 ALT 11 Alkaline Phosphatase 106 Total Protein 8.1 H Albumin 4.0 Lipase 15 COVID-19 ([facility]) COVID-19 Clin Com 01/10/22 02:54 MCV MCH MCHC RDW Plt Count MPV Immature Gran % (Auto) Neut % (Auto) Lymph % (Auto) Leake % (Auto) Eos % (Auto) Baso % (Auto) Lymph # (Auto) Leake # (Auto) Eos # (Auto) Baso # (Auto) Abs Immat Gran (auto) Absolute Neuts (auto) Absolute Nucleated RBC Nucleated RBC % (auto) VBG pH VBG pCO2 VBG pO2 VBG HCO3 VBG O2 Saturation VBG Base Excess Anion Gap Estim Creat Clear Calc Estimated GFR Random Glucose Calcium Magnesium Total Bilirubin Direct Bilirubin AST ALT Alkaline Phosphatase Total Protein Albumin Lipase COVID-19 ([facility]) Negative COVID-19 Clin Com See Note Imaging Radiologist's Impressions: Impressions Abdomen/Pelvis CT 01/09/22 22:18 IMPRESSION: No acute intra-abdominal process seen. Mild constipation. No major change compared to previous study 01/03/2022 Fleischner guidelines were followed. Assessment and Plan (1) Diabetic gastroparesis: Status: Acute (2) Vomiting: Qualifiers: Nausea presence: with nausea Vomiting type: unspecified Qualified Code(s): R11.2 - Nausea with vomiting, unspecified Status: Resolved (3) Elevated troponin: Status: Resolved Plan 61-year-old female with a past medical history of hypertension, hyperlipidemia, diabetes, gastroparesis, CVA, CHF, history of cardiac pacemaker, COPD, osteoporosis, chronic kidney disease, GERD; presented to the hospital today with a chief complaint of nausea/vomiting. Admitted for the following Nausea/vomiting: Patient has known history of gastroparesis. Will keep the patient on gentle IV fluids NPO Reglan p.r.n. Elevated troponins: Patient reported chest discomfort. Chest pain currently resolved. Initial chest pain was atypical in nature. Also aggravated by multiple episodes of nausea/vomiting. Troponin slightly elevated-plateaued. Cardiology is aware of the patient Hypertensive urgency: Patient's systolic blood pressure is elevated to 210. Will obtain a CT head. Labetalol IV p.r.n. continue home medications History of diabetes: Insulin sliding scale History of CHF: Stable. Hold home Lasix for now For all other chronic conditions, home medications will be continued once med rec is done DVT prophylaxis: Subcu heparin Code status: Full code Quality Stroke Does the patient have a stroke diagnosis?: No VTE Prior VTE?: No VTE Risk Level:: Medical - moderate - high VTE Device Contraindication: Treatment Not Indicated VTE Drug Contraindication: N/A - Med Ordered
--- NOTE | 2022-01-10 05:37 | PC.NURSE ---
Assumed care of pt from main ED. Pt able to stand and pivot from stretcher to hospital bed. Pt vomiting on arrival, vitals as charted, endorses feeling unwell. 3L O2 via NC, sat rapidly decreased to 86% while briefly disconnected from O2. Call light at hand. Attached to school lunch monitor. Awaiting inpatient bed assignment.
[2022-01-10] MEDS: 0.9 % Sodium Chloride 1,000 ML 50 ML IVCONT (05:47)
[2022-01-10] MEDS: Heparin Sodium,Porcine 5,000 UNIT/ML VIAL 5000 UNIT SUBCUT ×2 (05:47→13:18)
--- NOTE | 2022-01-10 05:49 | PC.NURSE ---
MD Guadarrama notified of pt BP. Pt lethargic but denies feeling symptomatic. Awaiting new orders
[2022-01-10 07:21] LABS: MANUAL DIFF FLAG NO
[2022-01-10 07:23] LABS: Basophils Percent Auto 0.2 % (0-2); Eosinophils Percent Auto 0.1 % (0-4); Hematocrit 37.4 % (37.0-47.0); Hemoglobin 11.8 g/dl (12.0-16.0); Imm Gran Abs Auto 0.05 X10*3/uL (0.00-0.03); Imm Gran Pct Auto 0.4 % (0.0-0.4); Lymphocytes Absolute Auto 0.8 X10*3/uL (1.2-4.9); Mean Corpuscular HGB Conc 31.6 g/dl (31.0-35.0); Mean Corpuscular Hemoglobin 30.6 pg (27.0-33.0); Mean Corpuscular Volume 97.1 fL (80.0-98.0); Mean Platelet Volume 10.3 fL (9.4-12.3); Monocytes Absolute Auto 0.6 X10*3/uL (0.1-1.2); Monocytes Percent Auto 4.3 % (2-11); Neutrophils Absolute Auto 12.1 x10*3/uL (2.0-8.3); Platelet Count 252 X10*3/uL (160-400); Red Blood Count 3.85 X10*6/uL (4.20-5.50); Red Cell Distribution Width 13.2 % (11.0-16.0); White Blood Count 13.6 X10*3/uL (4.8-10.8)
[2022-01-10 07:46] LABS: Anion Gap 16 (12-20); Blood Urea Nitrogen 29 mg/dL (9-16); Calcium 9.3 mg/dL (8.4-10.2); Carbon Dioxide 23 mmol/L (22-29); Chloride 106 mmol/L (96-108); Creatinine Clr Calc Pharmacy 38.3; Estimated Glomerular Filt Rate 31; Glucose Random 295 mg/dL (60-115); Potassium 5.2 mmol/L (3.3-5.1); Sodium 140 mmol/L (135-145)
[2022-01-10] MEDS: Insulin Lispro 100 UNIT/ML 3 ML VIAL SUBCUT ×4 (07:58→21:38)
--- NOTE | 2022-01-10 08:11 | PC.NURSE ---
Pt A&Ox2, not to time, states she is not able to take her AM meds because she will vomit, pt refused all PO meds but was willing to take insulin. Pt self repositions in bed but states she is unable to walk and bed bound. Pt is NSR on monitor, Vistals as charted, remains HTN at this time. On 2L NC with good O2 sats. Pt to CT scan at this time.
--- NOTE | 2022-01-10 09:12 | PC.NURSE ---
Pt actively vomiting, refused AM dylansMD aware.
--- NOTE | 2022-01-10 09:45 | PHA.MEDREC ---
Pharmacy Consult ? Medication Reconciliation Pharmacy has completed the medication reconciliation. Pt stated that she uses 32 units of Tresiba daily and that she uses her Novolog as a sliding scale, and uses 8 units when her BG <200 and 10 units when >200. Pt also stated that she has not taken her medications for 3 or 4 days. Dixie Benito, GracielaD
--- NOTE | 2022-01-10 11:11 | P.CONCA_ITS ---
History of Present Illness History of Present Illness Date of Service: 01/10/22 Requesting physician: Ross Guadarrama Chief complaint: Elevated troponin Narrative: I was consulted on Lida due to elevated troponins. Patient unfortunate with development of diabetes related gastroparesis and present hospital with unrelenting vomiting as well as abdominal discomfort and severe pain. Troponin was drawn for unclear reasons. This was elevated however repeated troponins are predominantly flat without any clear delta suggestive of acute coronary syndrome /myocardial infarction. At that time had discussed with ED physician and had decided that there was no cardiac reason for admission. However patient has been admitted for unrelenting abdominal discomfort and vomiting. When I went to see her she was in significant distress and was complain of significant abdominal pain and was retching and having nausea and had just thrown up bilious material. she denies any chest pain but she did not provide any other medical history. Her EKG did not show any significant changes Review of Systems Review of Systems: Yes Unobtainable due to mental condition PMFSH Past Medical History Medical History Acute heart failure with preserved ejection fraction Anemia Anxiety Arthritis Cardiac pacemaker in situ Carpal tunnel syndrome CHF (congestive heart failure) Chronic heart failure with preserved ejection fraction (HFpEF) COPD exacerbation Coronary artery disease CVA (cerebral vascular accident) Diabetes Fall Gastritis Gastroparesis Gastroparesis GERD (gastroesophageal reflux disease) Headache HLD (hyperlipidemia) HTN (hypertension) HTN (hypertension) Hypocalcemia Hypoxia IBS (irritable bowel syndrome) Knee pain, left Myocardial infarct Nausea and vomiting Orthostasis Renal failure Suprapatellar effusion of knee T2DM (type 2 diabetes mellitus) UTI (urinary tract infection) Family History Family History Father No problems noted. Mother Diabetes Hypercholesteremia Hypertension Stroke Surgical History Surgical History H/O Achilles tendon repair History of appendectomy History of bladder surgery History of carpal tunnel release History of total hysterectomy with bilateral salpingo-oophorectomy (BSO) Hx of amputation Hx of CABG (~2019) Hx of cholecystectomy Hx of endoscopy Hx of knee surgery Hx of tonsillectomy Social History Social History Household Members: Family Household Members Other:: 1 Housing: Apartment Do you presently have visiting nurse or other home services: Yes (training development director, vna) Alcohol intake: never Patient Tobacco Use Status: Former Tobacco user Years Smoked: 20 Smoked in Last 30 Days: No Second Hand Smoke Exposure: No Use of substances other than those prescribed or required for medical reasons: No Advance Directives: No Patient : No service: No Current occupational status: disabled Meds Allergies Allergy/AdvReac Type Severity Reaction Status Date / Time tetracycline [Tetracycline] Allergy Mild HIVES, Verified 12/27/21 12:22 anaphylaxis, anaphylaxis Active Medications: Current Medications Acetaminophen (Acetaminophen 325 Mg Tablet) 650 mg PO Q6H PRN PRN Reason: Pain, Mild (Pain Scale 1-3) Allopurinol (Allopurinol 100 Mg Tablet) 100 mg PO DAILY [facility] Last Admin: 01/10/22 09:47 Dose: Not Given Documented by: Aspirin (Aspirin Enteric Coated 81 Mg Tablet.) 81 mg PO DAILY [facility] Last Admin: 01/10/22 09:47 Dose: Not Given Documented by: Atorvastatin Calcium (Atorvastatin Calcium 40 Mg Tablet) 40 mg PO BEDTIME [facility] Dextrose (Dextrose 50 % 25 Gm/50 Ml Syringe) 25 gm IVPUSH Q15M PRN; Protocol PRN Reason: per Hypoglycemia Standing Ord. Gabapentin (Gabapentin 100 Mg Capsule) 200 mg PO TID [facility] Last Admin: 01/10/22 09:47 Dose: Not Given Documented by: Glucose (Glucose Gel 15 Gm Gel..Gram.) 15 gm PO Q15M PRN; Protocol PRN Reason: per Hypoglycemia Standing Ord. Heparin Sodium (Porcine) (Heparin Sodium,Porcine 5,000 Unit/Ml Vial) 5,000 unit SUBCUT Q8H [facility] Last Admin: 01/10/22 05:47 Dose: 5,000 unit Documented by: Hydromorphone HCl (Hydromorphone Hcl 0.5 Mg/0.5 Ml Syringe) 0.5 mg IVPUSH Q4H PRN; Protocol PRN Reason: Pain, Severe (Pain Scale 7-10) Sodium Chloride (Ns) 1,000 mls @ 50 mls/hr IVCONT .Q20H [facility] Last Admin: 01/10/22 05:47 Dose: 50 mls/hr Documented by: Insulin Human Lispro (Insulin Lispro 100 Unit/Ml 3 Ml Vial) 0 unit SUBCUT QIDACHS [facility]; Protocol Last Admin: 01/10/22 07:58 Dose: 6 unit Documented by: Labetalol HCl (Labetalol Hcl 100 Mg/20 Ml Vial) 10 mg IVPUSH Q4H PRN PRN Reason: bp > 180/90 Lorazepam (Lorazepam 0.5 Mg Tablet) 0.5 mg PO BID PRN PRN Reason: Anxiety Melatonin (Melatonin 3 Mg Tablet) 6 mg PO BEDTIME PRN PRN Reason: Insomnia Metoclopramide HCl (Metoclopramide Hcl 10 Mg/2 Ml Vial) [facility] Metoprolol Succinate (Metoprolol Succinate Er 50 Mg Tab.Er.24h) 50 mg PO DAILY [facility]; Protocol Last Admin: 01/10/22 09:47 Dose: Not Given Documented by: Sodium Chloride (0.9 % Sodium Chloride Flush 3 Ml Syringe) 3 ml IVFLUSH [facility] Last Admin: 01/10/22 08:07 Dose: Not Given Documented by: Tamsulosin HCl (Tamsulosin Hcl 0.4 Mg Capsule) 0.4 mg PO DAILY@1700 [facility] Home Medications Medication Instructions Recorded Confirmed Last Taken Type lorazepam 0.5 mg tablet 0.5 mg PO BID PRN 09/14/20 01/10/22 Unknown History albuterol sulfate 90 mcg/actuation 2 puff INHALATION Q6H PRN 09/16/20 01/10/22 03/05/21 History aerosol inhaler allopurinol 100 mg tablet 100 mg PO DAILY 09/16/20 01/10/22 03/05/21 History aspirin 81 mg tablet,delayed 81 mg PO DAILY 09/16/20 01/10/22 03/05/21 History release fluticasone furoate 100 1 inh INHALATION DAILY PRN 09/16/20 01/10/22 03/05/21 History mcg-vilanterol 25 mcg/dose inhalation powder (Breo Ellipta) metoprolol succinate 50 mg 50 mg PO DAILY 09/16/20 01/10/22 03/05/21 History tablet,extended release 24 hr (Toprol XL) insulin degludec 100 unit/mL (3 32 unit SUBCUT DAILY ml 11/13/20 01/10/22 03/05/21 History mL) subcutaneous pen (Tresiba FlexTouch U-100 insulin) ferrous sulfate 325 mg (65 mg 325 mg PO DAILY 12/22/20 01/10/22 03/05/21 History iron) tablet (iron) tamsulosin 0.4 mg capsule 0.4 mg PO DAILY@1700 12/22/20 01/10/22 03/05/21 History insulin aspart U-100 100 unit/mL See Rx Instructions .ROUTE .COMPLEX 01/08/21 01/10/22 03/05/21 History (3 mL) subcutaneous pen (Novolog Flexpen U-100 Insulin aspart) melatonin 5 mg tablet 5 mg PO BEDTIME PRN 01/08/21 01/10/22 03/05/21 History nitroglycerin 0.4 mg sublingual 0.4 mg SUBLINGUAL Q5M PRN 01/08/21 01/10/22 Unknown History tablet gabapentin 100 mg capsule 200 mg PO TID 03/06/21 01/10/22 03/05/21 History cholecalciferol (vitamin D3) 25 25 mcg PO DAILY 03/20/21 01/10/22 Unknown History mcg (1,000 unit) capsule metoclopramide HCl 5 mg tablet 5 mg PO QID 03/20/21 01/10/22 Unknown History pen needle, diabetic 31 gauge x #1200 ea 03/20/21 01/10/22 Unknown History 04/06 acetaminophen 325 mg tablet 2 tab PO Q4H PRN 01/10/22 01/10/22 Unknown History atorvastatin 80 mg tablet 1 tab PO BEDTIME 01/10/22 01/10/22 Unknown History ipratropium bromide 21 mcg (0.03 1 spray INTRANASAL USEASDIRECTD 01/10/22 01/10/22 Unknown History %) nasal spray linagliptin 5 mg tablet (Tradjenta) 1 tab PO DAILY 01/10/22 01/10/22 Unknown History lisinopril 5 mg tablet 1 tab PO DAILY 01/10/22 01/10/22 Unknown History meloxicam 7.5 mg tablet 1 tab PO DAILY 01/10/22 01/10/22 Unknown History pantoprazole 40 mg tablet,delayed 1 tab PO DAILY 01/10/22 01/10/22 Unknown History release trazodone 50 mg tablet 0.5 tab PO BEDTIME PRN 01/10/22 01/10/22 Unknown History Physical Exam Vital Signs: Vital Signs: Last Vital Signs Temp 98.8 F 01/09/22 22:49 Pulse 89 01/10/22 08:06 Resp 14 01/10/22 08:06 BP 190/81 H 01/10/22 08:06 Pulse Ox 98 01/10/22 08:06 BMI result Body Mass Index 33.3 Const: General: alert, awake and acute distress ( due to abdominal pain) severe Nutritional Appearance: overweight Orientation/consciousness: patient oriented x3 HENMT: Head: Yes normocephalic and Yes atraumatic Neck: Neck: Yes trachea midline, Yes supple and Yes no JVD Resp: Effort & Inspection: normal respiratory effort Auscultation: clear to auscultation bilaterally Cardio: Jugular venous distension: no JVD Rate: regular rate Rhythm: regular rhythm Heart sounds: S1 normal heart sound present, S2 normal heart sound present, no click, no gallops and no murmurs GI: Inspection: Yes other ( tenderness) Neuro: General: patient oriented x3 and no focal motor deficits Psych: Speech and movement: Psychomotor agitation in speech present and Restless speech present Objective Labs and Meds Result diagrams: 01/10/22 07:16 01/10/22 07:16 Lab results: Laboratory Results - last 24 hr 01/09/22 01/09/22 01/09/22 23:02 23:02 23:02 WBC 9.7 RBC 3.72 L Hgb 11.6 L Hct 35.7 L MCV 96.0 MCH 31.2 MCHC 32.5 RDW 13.2 Plt Count 264 MPV 10.0 Immature Gran % (Auto) 0.4 Neut % (Auto) 77.7 H Lymph % (Auto) 14.9 L Wallace % (Auto) 6.4 Eos % (Auto) 0.3 Baso % (Auto) 0.3 Lymph # (Auto) 1.5 Wallace # (Auto) 0.6 Eos # (Auto) 0.0 Baso # (Auto) 0.0 Abs Immat Gran (auto) 0.04 H Absolute Neuts (auto) 7.6 Absolute Nucleated RBC 0.000 Nucleated RBC % (auto) 0.0 VBG pH VBG pCO2 VBG pO2 VBG HCO3 VBG O2 Saturation VBG Base Excess Sodium 140 Potassium 5.5 H Chloride 105 Carbon Dioxide 27 Anion Gap 14 BUN 30 H Creatinine 1.71 H Estim Creat Clear Calc 37.4 Estimated GFR 30 Random Glucose 230 H Calcium 9.4 Magnesium 2.4 Total Bilirubin 0.4 Direct Bilirubin < 0.2 AST 22 ALT 11 Alkaline Phosphatase 106 Troponin I High Sens 425.7 H* Total Protein 8.1 H Albumin 4.0 Lipase 15 COVID-19 ([facility]) COVID-19 Clin Com 01/09/22 01/10/22 01/10/22 23:04 02:14 02:54 WBC RBC Hgb Hct MCV MCH MCHC RDW Plt Count MPV Immature Gran % (Auto) Neut % (Auto) Lymph % (Auto) Wallace % (Auto) Eos % (Auto) Baso % (Auto) Lymph # (Auto) Wallace # (Auto) Eos # (Auto) Baso # (Auto) Abs Immat Gran (auto) Absolute Neuts (auto) Absolute Nucleated RBC Nucleated RBC % (auto) VBG pH 7.38 VBG pCO2 50 VBG pO2 37 VBG HCO3 30 H VBG O2 Saturation 51.0 VBG Base Excess 4.1 Sodium Potassium Chloride Carbon Dioxide Anion Gap BUN Creatinine Estim Creat Clear Calc Estimated GFR Random Glucose Calcium Magnesium Total Bilirubin Direct Bilirubin AST ALT Alkaline Phosphatase Troponin I High Sens 372.4 H* Total Protein Albumin Lipase COVID-19 ([facility]) Negative COVID-19 Clin Com See Note 01/10/22 01/10/22 07:16 07:16 WBC 13.6 H RBC 3.85 L Hgb 11.8 L Hct 37.4 MCV 97.1 MCH 30.6 MCHC 31.6 RDW 13.2 Plt Count 252 MPV 10.3 Immature Gran % (Auto) 0.4 Neut % (Auto) 89.0 H Lymph % (Auto) 6.0 L Wallace % (Auto) 4.3 Eos % (Auto) 0.1 Baso % (Auto) 0.2 Lymph # (Auto) 0.8 L Wallace # (Auto) 0.6 Eos # (Auto) 0.0 Baso # (Auto) 0.0 Abs Immat Gran (auto) 0.05 H Absolute Neuts (auto) 12.1 H Absolute Nucleated RBC 0.000 Nucleated RBC % (auto) 0.0 VBG pH VBG pCO2 VBG pO2 VBG HCO3 VBG O2 Saturation VBG Base Excess Sodium 140 Potassium 5.2 H Chloride 106 Carbon Dioxide 23 Anion Gap 16 BUN 29 H Creatinine 1.67 H Estim Creat Clear Calc 38.3 Estimated GFR 31 Random Glucose 295 H Calcium 9.3 Magnesium Total Bilirubin Direct Bilirubin AST ALT Alkaline Phosphatase Troponin I High Sens Total Protein Albumin Lipase COVID-19 ([facility]) COVID-19 Clin Com Imaging Radiologist's impression: Impressions Abdomen/Pelvis CT 01/09/22 22:18 IMPRESSION: No acute intra-abdominal process seen. Mild constipation. No major change compared to previous study 01/03/2022 Fleischner guidelines were followed. Head CT 01/10/22 08:30 IMPRESSION: Chronic microvascular ischemic changes with no CT evidence of acute intracranial abnormality. Assessment and Plan (1) Elevated troponin: Status: Acute elevated troponin in this middle-aged woman with underlying coronary artery disease is secondary to underlying chronic kidney disease as well as underlying structural heart disease in the setting of significantly elevated blood pressure due to gastroparesis. This is not suggestive of acute myocardial infarction. Will continue her usual treatment once possible to establish oral route. Continue aspirin and statin therapy. May require outpatient workup with ischemia once her noncardiac issues have resolved. (2) Uncontrolled hypertension: Status: Acute Uncontrolled hypertension due to significant pain with underlying autonomic dysfunction causing marked elevated blood pressure response. She cannot take oral medications. Switch to IV labetalol and IV hydralazine to control of blood pressure. Also control her pain. GI consult should be considered for her gastroparesis. Will sign of the case at this point in time. Feel free to consult us when needed Procedures Date of Service Date of Service: 01/10/22
[2022-01-10] MEDS: Metoclopramide HCl 10 MG/2 ML VIAL 5 MG IVPUSH ×3 (11:28→21:38)
[2022-01-10 11:31] LABS: Glucose, Whole Blood 289 mg/dL (60-115)
--- NOTE | 2022-01-10 11:37 | PC.NURSE ---
Medicated as per [facility] order, linene change and peric are provided. Pt still actively vomiting at this time. aware.
[2022-01-10 13:06] LABS: Glucose, Whole Blood 294 mg/dL (60-115)
--- NOTE | 2022-01-10 14:42 | PM.EVENT ---
Event Note Date of Service: 01/10/22 Event Note: day hospitalist update 61 yo F with HTN, HLD, DM + gastroparesis, prior CVA, CHF, PPM, COPD, osteoporosis, CKD3 admitted with intractable N/V due to gastroparesis, also troponin leak- >flat, likely due to demand Pt continues to have N/V + PO intolernace Continue IV fluid hydration. Will place on standing Reglan, renally dosed, 5 mg qidac IV. PRN Zofran.
[2022-01-10] MEDS: Pantoprazole Sodium 40 MG/10 ML VIAL IVPUSH (16:39)
[2022-01-10] MEDS: 0.9 % Sodium Chloride Flush 3 ML SYRINGE IVFLUSH (16:41)
[2022-01-10 18:28] LABS: Glucose, Whole Blood 277 mg/dL (60-115)
[2022-01-10] MEDS: ondansetron HCL 4 MG/2 ML VIAL IVPUSH (19:52)
--- NOTE | 2022-01-10 21:16 | PC.NURSE ---
HELD 2100 LABATELOL DOSE PER HOSPITALIST. PARAMETERS UPDATED IN JAN ALSO BY
[2022-01-10 21:20] LABS: Glucose, Whole Blood 205 mg/dL (60-115)
[2022-01-11] VITALS (9 sets, daily range): BP systolic 113–143; BP diastolic 57–79; PULSE 75–95; RESP 6–20; TEMP 36.8–37.1; O2SAT 93–100
[2022-01-11] MEDS: HYDROmorphone HCl 0.5 MG/0.5 ML SYRINGE IVPUSH ×4 (00:55→20:30)
[2022-01-11] MEDS: 0.9 % Sodium Chloride 1,000 ML 50 ML IVCONT (03:22)
[2022-01-11] MEDS: Pantoprazole Sodium 40 MG/10 ML VIAL IVPUSH ×2 (05:54→18:36)
[2022-01-11 06:59] LABS: White Blood Count 10.9 X10*3/uL (4.8-10.8)
[2022-01-11 07:00] LABS: Hematocrit 36.4 % (37.0-47.0); Hemoglobin 11.2 g/dl (12.0-16.0); Mean Corpuscular HGB Conc 30.8 g/dl (31.0-35.0); Mean Corpuscular Hemoglobin 30.3 pg (27.0-33.0); Mean Corpuscular Volume 98.4 fL (80.0-98.0); Platelet Count 253 X10*3/uL (160-400); Red Cell Distribution Width 13.2 % (11.0-16.0)
[2022-01-11 07:20] LABS: Anion Gap 17 (12-20); Blood Urea Nitrogen 34 mg/dL (9-16); Carbon Dioxide 23 mmol/L (22-29); Chloride 106 mmol/L (96-108); Creatinine Clr Calc Pharmacy 29.9; Estimated Glomerular Filt Rate 23; Glucose Random 213 mg/dL (60-115); Potassium 5.1 mmol/L (3.3-5.1); Sodium 141 mmol/L (135-145)
[2022-01-11 07:24] LABS: Glucose, Whole Blood 203 mg/dL (60-115)
[2022-01-11] MEDS: Metoclopramide HCl 10 MG/2 ML VIAL 5 MG IVPUSH ×4 (08:45→20:30)
[2022-01-11] MEDS: Labetalol HCL 100 MG/20 ML VIAL 10 MG IVPUSH ×3 (08:45→19:03)
[2022-01-11] MEDS: Insulin Lispro 100 UNIT/ML 3 ML VIAL SUBCUT (08:46)
[2022-01-11] MEDS: Metoprolol Succinate ER 50 MG TAB.ER.24H PO (08:46)
[2022-01-11] MEDS: allopurinoL 100 MG TABLET PO (08:47)
[2022-01-11] MEDS: Gabapentin 100 MG CAPSULE 200 MG PO ×3 (08:47→20:29)
[2022-01-11] MEDS: Aspirin Enteric Coated 81 MG TABLET.DR PO (08:47)
[2022-01-11] MEDS: Fluticasone/Vilanterol 100/25 BLST.W.DEV 1 PUFF INHALE (09:02)
--- NOTE | 2022-01-11 10:05 | MHC.CM.PN ---
PT REPORTS SHE LIVES WITH HER GRAND DAUGHTER AND REQUIRES ASSISTANCE WITH PERSONAL CARE PT REPORTS SHE HAS DAILY [employer] [facility] PT USES A WALKER TO AMBULATE BUT ALSO HAS A W/C AT HOME PT REPORTS HER PCP IS ADELA BETHEA AT [facility] IN [facility] PT HAS A HCP ON FILE PT REPORTS SHE IS COVID VACCINATED AND HAS RECEIVED THE BOOSTER IMM DELIVERED CURRENT DC PLAN IS HOME WITH RESUMPTION OF [facility] [employer] AND [facility] FAMILY TO TRANSPORT
--- NOTE | 2022-01-11 10:36 | PC.NURSE ---
0847 Pt medicated per jan. Pt able to tolerate PO meds. c/o pain in her stomach and nausea.
[2022-01-11 13:09] LABS: Glucose, Whole Blood 163 mg/dL (60-115)
[2022-01-11] MEDS: Heparin Sodium,Porcine 5,000 UNIT/ML VIAL 5000 UNIT SUBCUT (15:34)
[2022-01-11 17:52] LABS: Glucose, Whole Blood 163 mg/dL (60-115)
[2022-01-11] MEDS: Acetaminophen 325 MG TABLET 650 MG PO (18:34)
[2022-01-11] MEDS: ondansetron HCL 4 MG/2 ML VIAL IVPUSH (18:35)
[2022-01-11] MEDS: Tamsulosin HCL 0.4 MG CAPSULE PO (18:36)
[2022-01-11] MEDS: Atorvastatin Calcium 40 MG TABLET PO (20:29)
[2022-01-11 20:47] LABS: Glucose, Whole Blood 163 mg/dL (60-115)
[2022-01-11 21:46] LABS: Glucose, Whole Blood 152 mg/dL (60-115)
[2022-01-12] VITALS (11 sets, daily range): BP systolic 95–142; BP diastolic 49–65; PULSE 71–99; RESP 10–18; TEMP 36.6–37; O2SAT 94–100
[2022-01-12] MEDS: Heparin Sodium,Porcine 5,000 UNIT/ML VIAL 5000 UNIT SUBCUT ×4 (00:32→21:00)
[2022-01-12] MEDS: 0.9 % Sodium Chloride Flush 3 ML SYRINGE IVFLUSH ×2 (00:33→16:47)
[2022-01-12] MEDS: 0.9 % Sodium Chloride 1,000 ML 50 ML IVCONT ×2 (00:37→17:34)
[2022-01-12] MEDS: HYDROmorphone HCl 0.5 MG/0.5 ML SYRINGE IVPUSH ×5 (00:48→22:32)
[2022-01-12] MEDS: Labetalol HCL 100 MG/20 ML VIAL 10 MG IVPUSH ×3 (00:52→20:59)
--- NOTE | 2022-01-12 01:15 | ECG_ITS ---
Test Reason : CHEST PAIN Blood Pressure : / mmHG Vent. Rate : 071 BPM Atrial Rate : 071 BPM P-R Int : 222 ms QRS Dur : 120 ms QT Int : 448 ms P-R-T Axes : -24 095 197 degrees QTc Int : 486 ms Atrial-sensed ventricular-paced rhythm with prolonged AV conduction - possible A pacing as well. Abnormal ECG When compared with ECG of 09-JAN-2022 22:42, No significant changes seen Referred By: Ross Guadarrama Electronically Signed By:STEVE MASON
[2022-01-12 02:14] LABS: Troponin-I High Sensitivity 315.5 ng/L (<3.5-17.0)
--- NOTE | 2022-01-12 04:57 | PC.NURSE ---
Assumed care about 15:00. Patient is drowsy and lethargic but oriented. She is a 1 assist for bed mobility. She is on PRN oxygen at home and is on 2 lpm here only while sleeping. She is afebrile. She is in an atrial-sensed, v-paced rhythm on the monitor with prolonged AV conduction. Her BP has been soft with systolic in the low 100's. She has been getting IV normal saline at 50 cc per hour, and she has been NPO except sips of clear liquids and pills with sips, which she has been tolerating. She was nauseous once, after IV dilaudid, and was medicated with PRN zofran with good effect. She is on scheduled reglan and pantoprazole as well. She has been getting IV dilaudid 0.5 mg as often as possible via her Q4hour prn order. Patient at times with nonverbal signs of pain, has reported generalized constant sharp pain most of the time, responds well to dilaudid, and at about 00:00, she reported dull epigastric pain, improved slightly with palpation, and MD notified and in to assess, and EKG ordered and taken, and troponins checked x2 and reviewed by MD. Patient has spent most of the last 14 hours resting. She has not been urinating. on 01/11, she has 200 ccs urine charted, and she was not incontinent, but also she was bladder scanned for 263 ccs, and MD notified. Continuing to monitor at this time.
[2022-01-12 05:18] LABS: Troponin-I High Sensitivity 274.3 ng/L (<3.5-17.0)
[2022-01-12] MEDS: Pantoprazole Sodium 40 MG/10 ML VIAL IVPUSH ×2 (05:49→16:44)
[2022-01-12 06:03] LABS: Glucose, Whole Blood 175 mg/dL (60-115)
[2022-01-12] MEDS: Aspirin Enteric Coated 81 MG TABLET.DR PO (07:29)
[2022-01-12] MEDS: Gabapentin 100 MG CAPSULE 200 MG PO ×3 (07:29→20:58)
[2022-01-12] MEDS: Metoprolol Succinate ER 50 MG TAB.ER.24H PO (07:29)
[2022-01-12] MEDS: allopurinoL 100 MG TABLET PO (07:29)
[2022-01-12] MEDS: Metoclopramide HCl 10 MG/2 ML VIAL 5 MG IVPUSH ×4 (07:30→20:59)
[2022-01-12] MEDS: Insulin Lispro 100 UNIT/ML 3 ML VIAL SUBCUT ×2 (07:30→20:58)
[2022-01-12] MEDS: Fluticasone/Vilanterol 100/25 BLST.W.DEV 1 PUFF INHALE (07:47)
[2022-01-12 07:59] LABS: Glucose, Whole Blood 190 mg/dL (60-115)
--- NOTE | 2022-01-12 09:25 | PC.NURSE ---
bp soft, labetalol not given. md daria honeycutt
--- NOTE | 2022-01-12 10:02 | PM.GICN ---
History of Present Illness Data of Consult Service Date: 01/12/22 Requesting physician: Andrew Williamson Primary Care Provider: Unknown Physician HPI Reason for consult: Gastroparesis 61 YF seen in [facility] on 01/09/22 with abdominal pain, nausea and vomiting: MD elicited complaint: abdominal pain (n/v) Pertinent past history: other (gastroparesis) Onset (ago): day(s) (last night 1 day ago) Pain Consistency: constant Location: epigastric Severity: moderate Quality: aching Radiation: none Migration to: no migration Exacerbating factors: eating Relieving factors: nothing Context: history of similar episodes Associated symptoms: nausea and vomiting Treatments prior to arrival: other (seen this AM in ED labs, EKG, troponins x 2, IV zofran and morphine) Pt has a known hx of diabetic gastroparesis and is followed by Dr Perla for the past several years. She has had multiple admissions to [facility] in the past for similar symptoms - last in 12/2020 Patient complains of a 10/10 dull and stabbing upper abdominal pain since 01/09/2022. Patient notes radiation of pain to the back and is accompanied by a nausea, she denies significant vomiting. Pain gets worse when she eats and has not had any solid food since the pain started. Patient notes some improvement in abdominal pain to 8/10 today and would like to try a p.o. diet Patient admits to having diarrhea on admission and has a history of chronic intermittent diarrhea for the past several months. She denies noticing any fever chills or sweating, black stools or rectal bleeding. Patient denies symptoms of heartburn, dysphagia and admits to gaining a few lbs over the past few months. Patient denies loud snoring or sleep apnea Patient admits to taking a baby aspirin daily and denies being on chronic anticoagulation. Pt's 3 yrs ago. 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 Patient has 3 children and lives with her granddaughter who is also her RESOURCE AGENT. She has home health nurse coming in twice a day to give her medications. Patient denies known family history of colon polyps, colon cancer or other GI malignancies. IMAGING STUDIES: 01/09/[address] SCAN SHOWED: GASTROINTESTINAL TRACT: There is scattered stool and gas seen throughout the colon without significant distention. The small bowel loops are normal caliber. Appendix is not visualized.? PELVIC VISCERA: The uterus is atrophic or surgically removed. There is no free fluid. No abnormal pelvic lymph nodes. There is a right presacral electrode for pain management. IMPRESSION: No acute intra-abdominal process seen. Mild constipation. ?No major change compared to previous study 01/03/2022 ? 04/2013 Gastric emptying study was normal 01/2011 Gastric Emptying study showed marked delay with T 1/2 of more than 3000 min ENDOSCOPIC STUDIES: Dec 2015 EGD was performed by Dr. Perla: 1. Erosive esophagitis 2. Hiatal hernia 3. Mild gastric retention with small amount of retained gastric liquid and minimal solid material Review of Systems Constitutional: Constitutional: Denies headache(s) and Reports weight gain ENT: Denies headache(s) Gastrointestinal: Gastrointestinal: Reports abdominal pain, Reports diarrhea (Intermittent) and Reports nausea Musculoskeletal: Musculoskeletal: Denies arthralgias Neurologic: Denies headache(s) Psychiatric: Psychiatric: Reports anxiety and Reports depression PMF Past Medical History Medical History Acute heart failure with preserved ejection fraction Anemia Anxiety Arthritis Cardiac pacemaker in situ Carpal tunnel syndrome CHF (congestive heart failure) Chronic heart failure with preserved ejection fraction (HFpEF) COPD exacerbation Coronary artery disease CVA (cerebral vascular accident) Diabetes Fall Gastritis Gastroparesis Gastroparesis GERD (gastroesophageal reflux disease) Headache HLD (hyperlipidemia) HTN (hypertension) HTN (hypertension) Hypocalcemia Hypoxia IBS (irritable bowel syndrome) Knee pain, left Myocardial infarct Nausea and vomiting Orthostasis Renal failure Suprapatellar effusion of knee T2DM (type 2 diabetes mellitus) UTI (urinary tract infection) Family History Family History Father No problems noted. Mother Diabetes Hypercholesteremia Hypertension Stroke Surgical History Surgical History H/O Achilles tendon repair History of appendectomy History of bladder surgery History of carpal tunnel release History of total hysterectomy with bilateral salpingo-oophorectomy (BSO) Hx of amputation Hx of CABG (~2019) Hx of cholecystectomy Hx of endoscopy Hx of knee surgery Hx of tonsillectomy Social History Social History Household Members: Family Household Members Other:: 1 Housing: Apartment Do you presently have visiting nurse or other home services: Yes (material stockkeeper yard, vna) Alcohol intake: never Patient Tobacco Use Status: Former Tobacco user Years Smoked: 20 Smoked in Last 30 Days: No Second Hand Smoke Exposure: No Use of substances other than those prescribed or required for medical reasons: No Advance Directives: No Patient : No service: No Current occupational status: disabled Meds Allergies Allergy/AdvReac Type Severity Reaction Status Date / Time tetracycline [Tetracycline] Allergy Mild HIVES, Verified 12/27/21 12:22 anaphylaxis, anaphylaxis Active Medications: Current Medications Acetaminophen (Acetaminophen 325 Mg Tablet) 650 mg PO Q6H PRN PRN Reason: Pain, Mild (Pain Scale 1-3) Last Admin: 01/11/22 18:34 Dose: 650 mg Documented by: Allopurinol (Allopurinol 100 Mg Tablet) 100 mg PO DAILY [facility] Last Admin: 01/12/22 07:29 Dose: 100 mg Documented by: Aspirin (Aspirin Enteric Coated 81 Mg Tablet.Dr) 81 mg PO DAILY [facility] Last Admin: 01/12/22 07:29 Dose: 81 mg Documented by: Atorvastatin Calcium (Atorvastatin Calcium 40 Mg Tablet) 40 mg PO BEDTIME [facility] Last Admin: 01/11/22 20:29 Dose: 40 mg Documented by: Dextrose (Dextrose 50 % 25 Gm/50 Ml Syringe) 25 gm IVPUSH Q15M PRN; Protocol PRN Reason: per Hypoglycemia Standing Ord. Fluticasone/Vilanterol (Fluticasone/Vilanterol 100/25 Blst.W.Dev) 1 puff INHALE RDAILY [facility] Last Admin: 01/12/22 07:47 Dose: 1 puff Documented by: Gabapentin (Gabapentin 100 Mg Capsule) 200 mg PO TID [facility] Last Admin: 01/12/22 07:29 Dose: 200 mg Documented by: Glucose (Glucose Gel 15 Gm Gel..Gram.) 15 gm PO Q15M PRN; Protocol PRN Reason: per Hypoglycemia Standing Ord. Heparin Sodium (Porcine) (Heparin Sodium,Porcine 5,000 Unit/Ml Vial) 5,000 unit SUBCUT Q8H [facility] Last Admin: 01/12/22 05:46 Dose: 5,000 unit Documented by: Hydromorphone HCl (Hydromorphone Hcl 0.5 Mg/0.5 Ml Syringe) 0.5 mg IVPUSH Q4H PRN; Protocol PRN Reason: Pain, Severe (Pain Scale 7-10) Last Admin: 01/12/22 04:36 Dose: 0.5 mg Documented by: Sodium Chloride (Ns) 1,000 mls @ 50 mls/hr IVCONT .Q20H [facility] Last Admin: 01/12/22 00:37 Dose: 50 mls/hr Documented by: Insulin Human Lispro (Insulin Lispro 100 Unit/Ml 3 Ml Vial) 0 unit SUBCUT QIDAS [facility]; Protocol Last Admin: 01/12/22 07:30 Dose: 2 unit Documented by: Labetalol HCl (Labetalol Hcl 100 Mg/20 Ml Vial) 10 mg IVPUSH Q4H [facility] Last Admin: 01/12/22 09:25 Dose: Not Given Documented by: Lorazepam (Lorazepam 0.5 Mg Tablet) 0.5 mg PO BID PRN PRN Reason: Anxiety Melatonin (Melatonin 3 Mg Tablet) 6 mg PO BEDTIME PRN PRN Reason: Insomnia Melatonin (Melatonin 3 Mg Tablet) 6 mg PO BEDTIME PRN PRN Reason: Sleep Metoclopramide HCl (Metoclopramide Hcl 10 Mg/2 Ml Vial) 5 mg IVPUSH QIDAS [facility] Last Admin: 01/12/22 07:30 Dose: 5 mg Documented by: Metoprolol Succinate (Metoprolol Succinate Er 50 Mg Tab.Er.24h) 50 mg PO DAILY [facility]; Protocol Last Admin: 01/12/22 07:29 Dose: 50 mg Documented by: Nitroglycerin (Nitroglycerin 0.4 Mg Tab.Subl) 0.4 mg SUBLINGUAL Q5M PRN PRN Reason: Chest Pain Ondansetron HCl (Ondansetron Hcl 4 Mg/2 Ml Vial) 4 mg IVPUSH Q4H PRN PRN Reason: nausea/vomiting Last Admin: 01/11/22 18:35 Dose: 4 mg Documented by: Pantoprazole Sodium (Pantoprazole Sodium 40 Mg/10 Ml Vial) 40 mg IVPUSH BID@0630,1630 [facility] Last Admin: 01/12/22 05:49 Dose: 40 mg Documented by: Sodium Chloride (0.9 % Sodium Chloride Flush 3 Ml Syringe) 3 ml IVFLUSH QSHIFT [facility] Last Admin: 01/12/22 07:04 Dose: Not Given Documented by: Tamsulosin HCl (Tamsulosin Hcl 0.4 Mg Capsule) 0.4 mg PO DAILY@1700 [facility] Last Admin: 01/11/22 18:36 Dose: 0.4 mg Documented by: Trazodone HCl (Trazodone Hcl 25 Mg Halftab) 25 mg PO BEDTIME PRN PRN Reason: Sleep Home Medications Medication Instructions Recorded Confirmed Last Taken Type lorazepam 0.5 mg tablet 0.5 mg PO BID PRN 09/14/20 01/10/22 Unknown History albuterol sulfate 90 mcg/actuation 2 puff INHALATION Q6H PRN 09/16/20 01/10/22 03/05/21 History aerosol inhaler allopurinol 100 mg tablet 100 mg PO DAILY 09/16/20 01/10/22 03/05/21 History aspirin 81 mg tablet,delayed 81 mg PO DAILY 09/16/20 01/10/22 03/05/21 History release fluticasone furoate 100 1 inh INHALATION DAILY PRN 09/16/20 01/10/22 03/05/21 History mcg-vilanterol 25 mcg/dose inhalation powder (Breo Ellipta) metoprolol succinate 50 mg 50 mg PO DAILY 09/16/20 01/10/22 03/05/21 History tablet,extended release 24 hr (Toprol XL) insulin degludec 100 unit/mL (3 32 unit SUBCUT DAILY ml 11/13/20 01/10/22 03/05/21 History mL) subcutaneous pen (Tresiba FlexTouch U-100 insulin) ferrous sulfate 325 mg (65 mg 325 mg PO DAILY 12/22/20 01/10/22 03/05/21 History iron) tablet (iron) tamsulosin 0.4 mg capsule 0.4 mg PO DAILY@1700 12/22/20 01/10/22 03/05/21 History insulin aspart U-100 100 unit/mL See Rx Instructions .ROUTE .COMPLEX 01/08/21 01/10/22 03/05/21 History (3 mL) subcutaneous pen (Novolog Flexpen U-100 Insulin aspart) melatonin 5 mg tablet 5 mg PO BEDTIME PRN 01/08/21 01/10/22 03/05/21 History nitroglycerin 0.4 mg sublingual 0.4 mg SUBLINGUAL Q5M PRN 01/08/21 01/10/22 Unknown History tablet gabapentin 100 mg capsule 200 mg PO TID 03/06/21 01/10/22 03/05/21 History cholecalciferol (vitamin D3) 25 25 mcg PO DAILY 03/20/21 01/10/22 Unknown History mcg (1,000 unit) capsule metoclopramide HCl 5 mg tablet 5 mg PO QID 03/20/21 01/10/22 Unknown History pen needle, diabetic 31 gauge x #1200 ea 03/20/21 01/10/22 Unknown History 04/06 acetaminophen 325 mg tablet 2 tab PO Q4H PRN 01/10/22 01/10/22 Unknown History atorvastatin 80 mg tablet 1 tab PO BEDTIME 01/10/22 01/10/22 Unknown History ipratropium bromide 21 mcg (0.03 1 spray INTRANASAL USEASDIRECTD 01/10/22 01/10/22 Unknown History %) nasal spray linagliptin 5 mg tablet (Tradjenta) 1 tab PO DAILY 01/10/22 01/10/22 Unknown History lisinopril 5 mg tablet 1 tab PO DAILY 01/10/22 01/10/22 Unknown History meloxicam 7.5 mg tablet 1 tab PO DAILY 01/10/22 01/10/22 Unknown History pantoprazole 40 mg tablet,delayed 1 tab PO DAILY 01/10/22 01/10/22 Unknown History release trazodone 50 mg tablet 0.5 tab PO BEDTIME PRN 01/10/22 01/10/22 Unknown History Physical Exam Vital Signs: Vital Signs: Last Vital Signs Temp 98.6 F 01/12/22 07:19 Pulse 75 01/12/22 08:22 Resp 15 01/12/22 08:22 BP 95/50 L 01/12/22 08:22 Pulse Ox 97 01/12/22 08:22 BMI result Body Mass Index 33.3 Const: General: healthy appearing and no acute distress Nutritional Appearance: obese Orientation/consciousness: patient oriented x3 Limitations: no limitations HENMT: Head: Yes normal to inspection Ears: hearing grossly normal bilaterally Mouth: Normal oral and palatal mucosa present Eyes: Sclerae: sclerae normal Pupils: Equal, round and reactive pupils present Neck: Neck: Yes normal visual inspection Chest: Chest palpation & inspection: normal inspection of the chest Resp: Effort & Inspection: normal respiratory effort Auscultation: clear to auscultation bilaterally Cardio: Palpation: normal PMI Rate: regular rate Rhythm: regular rhythm Heart sounds: S1 normal heart sound present, S2 normal heart sound present and no murmurs GI: Inspection: Yes scar (Lower midline scar of past total hysterectomy) Palpation (GI): Soft to palpation, Tenderness to palpation present (GI) (minimal epigastric tenderness) and No hepatosplenomegaly present Auscultation: normal bowel sounds Rectal Exam - Female: deferred Skin: General skin exam: no rashes or lesions noted Neuro: General: patient oriented x3, gait normal and moves all extremities Cranial nerves: Yes Equal, round and reactive pupils present Psych: Appearance: grossly normal Mental Status: mental status grossly normal Results Labs CBC & Chem 7: 01/11/22 06:12 01/11/22 06:12 Assessment and Plan (1) Diabetic gastroparesis: Status: Acute Plan 61 YF with Type 2 DM (diagnosed in 1994), hypertension, hyperlipidemia, CAD, status post cardiac pacemaker with known hx of diabetic gastroparesis admitted with abdominal pain, nausea and inability to take any solids p.o. for the past 3 days. Patient takes metoclopramide 5 mg 3-4 times daily for gastroparesis. She feels a little better today and is willing to try taking a p.o. diet. RECOMMENDATIONS: 1. Continue IV metoclopramide 4 times daily and PPI twice daily and Zofran prn 2. Start on a clear liquid diet and advanced diet as tolerated. 3. She can be switched to p.o. medications once she starts tolerating oral diet. 4. Dr Perla to FU on 01/13/22 Procedures Date of Service Date of Service: 01/12/22
--- NOTE | 2022-01-12 11:26 | PC.NURSE ---
PT RESTING IN BED. MEDICATED FOR PAIN.
[2022-01-12 12:28] LABS: Glucose, Whole Blood 135 mg/dL (60-115)
[2022-01-12] MEDS: Tamsulosin HCL 0.4 MG CAPSULE PO (16:44)
--- NOTE | 2022-01-12 16:47 | HO.PM.IMPN ---
Subjective Subjective Date of Service: 01/12/22 Interval History: Continues with intermittent vomiting and abdominal pain despite therapies Review of Systems Denies chest pain Denies shortness of breath Denies nausea vomiting diarrhea Physical Exam Vital Signs: Vital Signs: Last Vital Signs Temp 97.8 F 01/12/22 16:00 Pulse 80 01/12/22 16:00 Resp 16 01/12/22 16:00 BP 142/64 H 01/12/22 16:00 Pulse Ox 94 01/12/22 16:00 BMI result Body Mass Index 33.3 Const: Other: Awake alert oriented x3; ill-appearing Resp: Other: Clear to auscultation bilaterally no rales rhonchi wheezes Cardio: Other: No S4; positive S1-S2; no S3 murmurs rubs or gallops GI: Other: Soft diffusely tender skin (vomiting) bowel sounds x4 quadrants. No guarding Extrem: Other: No edema bilaterally Objective Data Active Medications Acetaminophen (Acetaminophen 325 Mg Tablet) 650 mg PO Q6H PRN PRN Reason: Pain, Mild (Pain Scale 1-3) Last Admin: 01/11/22 18:34 Dose: 650 mg Documented by: TEDDY Allopurinol (Allopurinol 100 Mg Tablet) 100 mg PO DAILY [facility] Last Admin: 01/12/22 07:29 Dose: 100 mg Documented by: JEAN Aspirin (Aspirin Enteric Coated 81 Mg Tablet.) 81 mg PO DAILY [facility] Last Admin: 01/12/22 07:29 Dose: 81 mg Documented by: JEAN Atorvastatin Calcium (Atorvastatin Calcium 40 Mg Tablet) 40 mg PO BEDTIME [facility] Last Admin: 01/11/22 20:29 Dose: 40 mg Documented by: TEDDY Dextrose (Dextrose 50 % 25 Gm/50 Ml Syringe) 25 gm IVPUSH Q15M PRN; Protocol PRN Reason: per Hypoglycemia Standing Ord. Fluticasone/Vilanterol (Fluticasone/Vilanterol 100/25 Blst.W.Dev) 1 puff INHALE RDAILY [facility] Last Admin: 01/12/22 07:47 Dose: 1 puff Documented by: JONAH Gabapentin (Gabapentin 100 Mg Capsule) 200 mg PO TID [facility] Last Admin: 01/12/22 14:37 Dose: 200 mg Documented by: ORTIZ Glucose (Glucose Gel 15 Gm Gel..Gram.) 15 gm PO Q15M PRN; Protocol PRN Reason: per Hypoglycemia Standing Ord. Heparin Sodium (Porcine) (Heparin Sodium,Porcine 5,000 Unit/Ml Vial) 5,000 unit SUBCUT Q8H [facility] Last Admin: 01/12/22 14:37 Dose: 5,000 unit Documented by: ORTIZ Hydromorphone HCl (Hydromorphone Hcl 0.5 Mg/0.5 Ml Syringe) 0.5 mg IVPUSH Q4H PRN; Protocol PRN Reason: Pain, Severe (Pain Scale 7-10) Last Admin: 01/12/22 11:22 Dose: 0.5 mg Documented by: ORTIZ Sodium Chloride (Ns) 1,000 mls @ 50 mls/hr IVCONT .Q20H [facility] Last Admin: 01/12/22 00:37 Dose: 50 mls/hr Documented by: TEDDY Insulin Human Lispro (Insulin Lispro 100 Unit/Ml 3 Ml Vial) 0 unit SUBCUT QIDAS [facility]; Protocol Last Admin: 01/12/22 12:42 Dose: Not Given Documented by: ORTIZ Non-Admin Reason: No Insulin Coverage Labetalol HCl (Labetalol Hcl 100 Mg/20 Ml Vial) 10 mg IVPUSH Q4H [facility] Last Admin: 01/12/22 16:47 Dose: Not Given Documented by: ORTIZ Non-Admin Reason: Decreased Blood Pressure Lorazepam (Lorazepam 0.5 Mg Tablet) 0.5 mg PO BID PRN PRN Reason: Anxiety Melatonin (Melatonin 3 Mg Tablet) 6 mg PO BEDTIME PRN PRN Reason: Insomnia Melatonin (Melatonin 3 Mg Tablet) 6 mg PO BEDTIME PRN PRN Reason: Sleep Metoclopramide HCl (Metoclopramide Hcl 10 Mg/2 Ml Vial) 5 mg IVPUSH QIDACHS [facility] Last Admin: 01/12/22 16:44 Dose: 5 mg Documented by: ORTIZ Metoprolol Succinate (Metoprolol Succinate Er 50 Mg Tab.Er.24h) 50 mg PO DAILY [facility]; Protocol Last Admin: 01/12/22 07:29 Dose: 50 mg Documented by: NICSTJonna Nitroglycerin (Nitroglycerin 0.4 Mg Tab.Subl) 0.4 mg SUBLINGUAL Q5M PRN PRN Reason: Chest Pain Ondansetron HCl (Ondansetron Hcl 4 Mg/2 Ml Vial) 4 mg IVPUSH Q4H PRN PRN Reason: nausea/vomiting Last Admin: 01/11/22 18:35 Dose: 4 mg Documented by: TEDDY Pantoprazole Sodium (Pantoprazole Sodium 40 Mg/10 Ml Vial) 40 mg IVPUSH BID@0630,1630 [facility] Last Admin: 01/12/22 16:44 Dose: 40 mg Documented by: ORTIZ Sodium Chloride (0.9 % Sodium Chloride Flush 3 Ml Syringe) 3 ml IVFLUSH QSHIFT [facility] Last Admin: 01/12/22 16:47 Dose: 3 ml Documented by: ORTIZ Tamsulosin HCl (Tamsulosin Hcl 0.4 Mg Capsule) 0.4 mg PO DAILY@1700 [facility] Last Admin: 01/12/22 16:44 Dose: 0.4 mg Documented by: ORTIZ Trazodone HCl (Trazodone Hcl 25 Mg Halftab) 25 mg PO BEDTIME PRN PRN Reason: Sleep Labs CBC & Chem 7: 01/11/22 06:12 01/11/22 06:12 Labs: Laboratory Results - last 24 hr 01/11/22 01/11/22 01/11/22 17:48 20:39 21:41 POC Glucose 163 H 163 H 152 H 01/12/22 01/12/22 01/12/22 05:57 07:29 12:21 POC Glucose 175 H 190 H 135 H Assessment and Plan (1) Diabetic gastroparesis: Status: Acute (2) HTN (hypertension): Status: Acute (3) Elevated troponin: Status: Acute Plan 61-year-old female with a past medical history of hypertension, hyperlipidemia, diabetes, gastroparesis, CVA, CHF, history of cardiac pacemaker, COPD, osteoporosis, chronic kidney disease, GERD; presented to the hospital today with a chief complaint of nausea/vomiting in know backdrop of gastroparesis 1. Diabetic Gastroparesis -will continue IV Reglan QID AC and HS -PPI IV q12hrs -GI to follow 2.Elevated troponins -seen by Cardiology..felt non acute -trend daily to document resolution 3.HTN - acute episode resolved - continue outpt therapies and adjust as indicated 4.DMII -sliding scale -adjust as clinically indicated DVT prophylaxis: Subcu heparin Code status: Full code Quality Stroke Does the patient have a stroke diagnosis?: No VTE Prior VTE?: No VTE Risk Level:: Medical - moderate - high VTE Device Contraindication: Treatment Not Indicated VTE Drug Contraindication: N/A - Med Ordered
[2022-01-12 17:03] LABS: Glucose, Whole Blood 127 mg/dL (60-115)
[2022-01-12 20:58] LABS: Glucose, Whole Blood 216 mg/dL (60-115)
[2022-01-12] MEDS: Atorvastatin Calcium 40 MG TABLET PO (20:58)
--- NOTE | 2022-01-12 23:20 | PC.NURSE ---
This nurse took over patient's care at 1900, patient alert and oriented, resting in bed. L/s dim at bases, vss, medicated for generalized 9/10 pain per emar. Assisted patient reposition in bed, call richard within reach.
[2022-01-13] VITALS (12 sets, daily range): BP systolic 118–209; BP diastolic 44–166; PULSE 71–99; RESP 11–18; TEMP 36.2–37.2; O2SAT 95–98
[2022-01-13] MEDS: Labetalol HCL 100 MG/20 ML VIAL 10 MG IVPUSH ×4 (01:07→23:38)
[2022-01-13] MEDS: HYDROmorphone HCl 0.5 MG/0.5 ML SYRINGE IVPUSH ×2 (02:52→08:05)
--- NOTE | 2022-01-13 04:29 | MHC.PIE ---
P: Patient c/o stomach upset and pain, moaning. I: medicated w/ PRN dilaudid. E: Medicated w/ good affect - Vitals stable at this time.
[2022-01-13] MEDS: Pantoprazole Sodium 40 MG/10 ML VIAL IVPUSH (06:33)
[2022-01-13] MEDS: Heparin Sodium,Porcine 5,000 UNIT/ML VIAL 5000 UNIT SUBCUT ×3 (06:33→21:23)
[2022-01-13 07:48] LABS: Glucose, Whole Blood 158 mg/dL (60-115)
[2022-01-13] MEDS: Insulin Lispro 100 UNIT/ML 3 ML VIAL SUBCUT ×4 (08:04→22:00)
[2022-01-13] MEDS: Metoprolol Succinate ER 50 MG TAB.ER.24H PO (08:04)
[2022-01-13] MEDS: Gabapentin 100 MG CAPSULE 200 MG PO ×3 (08:04→21:22)
[2022-01-13] MEDS: Aspirin Enteric Coated 81 MG TABLET.DR PO (08:04)
[2022-01-13] MEDS: Metoclopramide HCl 10 MG/2 ML VIAL 5 MG IVPUSH ×4 (08:04→21:24)
[2022-01-13] MEDS: allopurinoL 100 MG TABLET PO (08:05)
[2022-01-13] MEDS: Fluticasone/Vilanterol 100/25 BLST.W.DEV 1 PUFF INHALE (08:14)
--- NOTE | 2022-01-13 11:29 | PC.NURSE ---
Pt A&Ox2, confused on date, HR in the 70's on the monitor, pt requesting pain medication, medicated as per MAR orders for pain and daily meds. Pt denies N/V at this time, abd soft, non tender, inc for large amount of stool. Call richard within reach. Will continue to monitor.
[2022-01-13 12:37] LABS: Glucose, Whole Blood 217 mg/dL (60-115)
[2022-01-13] MEDS: Acetaminophen 325 MG TABLET 650 MG PO (12:51)
--- NOTE | 2022-01-13 13:47 | HO.PM.IMPN ---
Subjective Subjective Date of Service: 01/13/22 Interval History: Continues with intermittent vomiting and abdominal pain despite therapies Review of Systems Denies chest pain Denies shortness of breath Denies nausea vomiting diarrhea Physical Exam Vital Signs: Vital Signs: Last Vital Signs Temp 97.1 F 01/13/22 08:34 Pulse 87 01/13/22 08:34 Resp 14 01/13/22 08:34 BP 123/49 L 01/13/22 08:34 Pulse Ox 96 01/13/22 08:34 BMI result Body Mass Index 33.3 Const: Other: Awake alert oriented x3; ill-appearing Resp: Other: Clear to auscultation bilaterally no rales rhonchi wheezes Cardio: Other: No S4; positive S1-S2; no S3 murmurs rubs or gallops GI: Other: Soft diffusely tender skin (vomiting) bowel sounds x4 quadrants. No guarding Extrem: Other: No edema bilaterally Objective Data Active Medications Acetaminophen (Acetaminophen 325 Mg Tablet) 650 mg PO Q6H PRN PRN Reason: Pain, Mild (Pain Scale 1-3) Last Admin: 01/13/22 12:51 Dose: 650 mg Documented by: EBENEZER Allopurinol (Allopurinol 100 Mg Tablet) 100 mg PO DAILY [facility] Last Admin: 01/13/22 08:05 Dose: 100 mg Documented by: EBENEZER Aspirin (Aspirin Enteric Coated 81 Mg Tablet.) 81 mg PO DAILY [facility] Last Admin: 01/13/22 08:04 Dose: 81 mg Documented by: EBENEZER Atorvastatin Calcium (Atorvastatin Calcium 40 Mg Tablet) 40 mg PO BEDTIME [facility] Last Admin: 01/12/22 20:58 Dose: 40 mg Documented by: TUMASY Dextrose (Dextrose 50 % 25 Gm/50 Ml Syringe) 25 gm IVPUSH Q15M PRN; Protocol PRN Reason: per Hypoglycemia Standing Ord. Fluticasone/Vilanterol (Fluticasone/Vilanterol 100/25 Blst.W.Dev) 1 puff INHALE RDAILY [facility] Last Admin: 01/13/22 08:14 Dose: 1 puff Documented by: BLASCL Gabapentin (Gabapentin 100 Mg Capsule) 200 mg PO TID [facility] Last Admin: 01/13/22 08:04 Dose: 200 mg Documented by: HO.N-RAMSK Glucose (Glucose Gel 15 Gm Gel..Gram.) 15 gm PO Q15M PRN; Protocol PRN Reason: per Hypoglycemia Standing Ord. Heparin Sodium (Porcine) (Heparin Sodium,Porcine 5,000 Unit/Ml Vial) 5,000 unit SUBCUT Q8H [facility] Last Admin: 01/13/22 12:50 Dose: 5,000 unit Documented by: DELFINA-RAMSK Hydromorphone HCl (Hydromorphone Hcl 0.5 Mg/0.5 Ml Syringe) 0.5 mg IVPUSH Q4H PRN; Protocol PRN Reason: Pain, Severe (Pain Scale 7-10) Last Admin: 01/13/22 08:05 Dose: 0.5 mg Documented by: DELFINA-ELZBIETASK Insulin Human Lispro (Insulin Lispro 100 Unit/Ml 3 Ml Vial) 0 unit SUBCUT QIDACHS [facility]; Protocol Last Admin: 01/13/22 12:51 Dose: 4 unit Documented by: DELFINA-ELZBIETASK Labetalol HCl (Labetalol Hcl 100 Mg/20 Ml Vial) 10 mg IVPUSH Q4H [facility] Last Admin: 01/13/22 12:50 Dose: 10 mg Documented by: DELFINA-ELZBIETASK Lorazepam (Lorazepam 0.5 Mg Tablet) 0.5 mg PO BID PRN PRN Reason: Anxiety Melatonin (Melatonin 3 Mg Tablet) 6 mg PO BEDTIME PRN PRN Reason: Insomnia Melatonin (Melatonin 3 Mg Tablet) 6 mg PO BEDTIME PRN PRN Reason: Sleep Metoclopramide HCl (Metoclopramide Hcl 10 Mg/2 Ml Vial) [facility] Admin: 01/13/22 12:51 Dose: 5 mg Documented by: DELFINA-DARWIN Metoprolol Succinate (Metoprolol Succinate Er 50 Mg Tab.Er.24h) 50 mg PO DAILY [facility]; Protocol Last Admin: 01/13/22 08:04 Dose: 50 mg Documented by: DELFINA-ELZBIETASK Nitroglycerin (Nitroglycerin 0.4 Mg Tab.Subl) 0.4 mg SUBLINGUAL Q5M PRN PRN Reason: Chest Pain Ondansetron HCl (Ondansetron Hcl 4 Mg/2 Ml Vial) 4 mg IVPUSH Q4H PRN PRN Reason: nausea/vomiting Last Admin: 01/11/22 18:35 Dose: 4 mg Documented by: TEDDY Pantoprazole Sodium (Pantoprazole Sodium 40 Mg/10 Ml Vial) 40 mg IVPUSH BID@0630,1630 [facility] Last Admin: 01/13/22 06:33 Dose: 40 mg Documented by: TORI Sodium Chloride (0.9 % Sodium Chloride Flush 3 Ml Syringe) 3 ml IVFLUSH QSHIFT [facility] Last Admin: 01/13/22 10:01 Dose: Not Given Documented by: EBENEZER Non-Admin Reason: IV Running Tamsulosin HCl (Tamsulosin Hcl 0.4 Mg Capsule) 0.4 mg PO DAILY@1700 [facility] Last Admin: 01/12/22 16:44 Dose: 0.4 mg Documented by: ORTIZ Trazodone HCl (Trazodone Hcl 25 Mg Halftab) 25 mg PO BEDTIME PRN PRN Reason: Sleep Labs CBC & Chem 7: 01/11/22 06:12 01/11/22 06:12 Labs: Laboratory Results - last 24 hr 01/12/22 01/12/22 01/13/22 16:36 20:41 07:40 POC Glucose 127 H 216 H 158 H 01/13/22 12:29 POC Glucose 217 H Assessment and Plan (1) Diabetic gastroparesis: Status: Acute (2) Elevated troponin: Status: Acute (3) Uncontrolled hypertension: Status: Acute (4) T2DM (type 2 diabetes mellitus): Status: Acute Plan 61-year-old female with a past medical history of hypertension, hyperlipidemia, diabetes, gastroparesis, CVA, CHF, history of cardiac pacemaker, COPD, osteoporosis, chronic kidney disease, GERD; presented to the hospital today with a chief complaint of nausea/vomiting in know backdrop of gastroparesis 1. Diabetic Gastroparesis -will continue IV Reglan QID AC and HS -PPI IV q12hrs - Advance dit 2.Elevated troponins -seen by Cardiology..felt non acute -trend daily to document resolution 3.HTN - acute episode resolved - continue outpt therapies and adjust as indicated 4.DMII -sliding scale -adjust as clinically indicated DVT prophylaxis: Subcu heparin Code status: Full code Quality Stroke Does the patient have a stroke diagnosis?: No VTE Prior VTE?: No VTE Risk Level:: Medical - moderate - high VTE Device Contraindication: Treatment Not Indicated VTE Drug Contraindication: N/A - Med Ordered
[2022-01-13] MEDS: oxyCODONE HCl Immed Release 5 MG TABLET PO ×2 (14:47→21:22)
[2022-01-13] MEDS: Tamsulosin HCL 0.4 MG CAPSULE PO (18:17)
[2022-01-13 18:24] LABS: Glucose, Whole Blood 219 mg/dL (60-115)
[2022-01-13] MEDS: Atorvastatin Calcium 40 MG TABLET PO (21:22)
[2022-01-13] MEDS: LORazepam 0.5 MG TABLET PO (21:22)
[2022-01-13] MEDS: Melatonin 3 MG TABLET 6 MG PO (21:23)
[2022-01-13 21:37] LABS: Glucose, Whole Blood 233 mg/dL (60-115)
[2022-01-14] VITALS (9 sets, daily range): BP systolic 124–174; BP diastolic 52–83; PULSE 74–84; RESP 12–20; TEMP 36.8–37.2; O2SAT 90–98
[2022-01-14] MEDS: Labetalol HCL 100 MG/20 ML VIAL 10 MG IVPUSH ×4 (03:38→23:40)
--- NOTE | 2022-01-14 03:48 | PC.NURSE ---
Patient requested to be put on a bed britt.
[2022-01-14] MEDS: Metoclopramide HCl 10 MG/2 ML VIAL 5 MG IVPUSH ×4 (07:37→20:42)
[2022-01-14] MEDS: Heparin Sodium,Porcine 5,000 UNIT/ML VIAL 5000 UNIT SUBCUT ×3 (07:37→20:43)
[2022-01-14] MEDS: Insulin Lispro 100 UNIT/ML 3 ML VIAL SUBCUT ×4 (07:38→20:43)
[2022-01-14 07:40] LABS: Glucose, Whole Blood 246 mg/dL (60-115)
[2022-01-14] MEDS: 0.9 % Sodium Chloride Flush 3 ML SYRINGE IVFLUSH ×3 (07:42→20:43)
--- NOTE | 2022-01-14 07:54 | PC.NURSE ---
Pt A&Ox2, confused on date/time. Abd soft, non tender at this time, BP as documented, medicated as per [facility] orders for HTN. @l NC removed by this RN, sat's 96% on room air. No signs of SOB. HR 70's paced on the monitor. Insulin given as per protocol. Report given to Idalia in [facility] pt aware for plan to go upstair to a new bed. Call richard within reach, breakfast tray provided. Will continue to monitor.
[2022-01-14] MEDS: Fluticasone/Vilanterol 100/25 BLST.W.DEV 1 PUFF INHALE (08:13)
[2022-01-14] MEDS: Gabapentin 100 MG CAPSULE 200 MG PO ×3 (10:52→20:42)
[2022-01-14] MEDS: Metoprolol Succinate ER 50 MG TAB.ER.24H PO (10:52)
[2022-01-14] MEDS: allopurinoL 100 MG TABLET PO (10:52)
[2022-01-14] MEDS: Aspirin Enteric Coated 81 MG TABLET.DR PO (10:52)
[2022-01-14 11:30] LABS: Glucose, Whole Blood 286 mg/dL (60-115)
--- NOTE | 2022-01-14 11:49 | MHC.CLN ---
RECOMMEND 1800DM 2GM NA DIET R/T HX DM, CHF, CAD AND LA
[2022-01-14] MEDS: oxyCODONE HCl Immed Release 5 MG TABLET PO (13:06)
--- NOTE | 2022-01-14 13:40 | HO.PM.IMPN ---
Subjective Subjective Date of Service: 01/14/22 Interval History: Mtolerant of diet thus far.Still nauseous Review of Systems Denies chest pain Denies shortness of breath Denies nausea vomiting diarrhea Physical Exam Vital Signs: Vital Signs: Last Vital Signs Temp 98.5 F 01/14/22 11:12 Pulse 76 01/14/22 11:12 Resp 20 01/14/22 11:12 BP 124/58 L 01/14/22 11:12 Pulse Ox 91 L 01/14/22 11:12 BMI result Body Mass Index 33.3 Const: Other: Awake alert oriented x3; ill-appearing Resp: Other: Clear to auscultation bilaterally no rales rhonchi wheezes Cardio: Other: No S4; positive S1-S2; no S3 murmurs rubs or gallops GI: Other: Soft diffusely tender skin (vomiting) bowel sounds x4 quadrants. No guarding Extrem: Other: No edema bilaterally Objective Data Active Medications Acetaminophen (Acetaminophen 325 Mg Tablet) 650 mg PO Q6H PRN PRN Reason: Pain, Mild (Pain Scale 1-3) Last Admin: 01/13/22 12:51 Dose: 650 mg Documented by: EBENEZER Allopurinol (Allopurinol 100 Mg Tablet) 100 mg PO DAILY [facility] Last Admin: 01/14/22 10:52 Dose: 100 mg Documented by: SADAF Aspirin (Aspirin Enteric Coated 81 Mg Tablet.) 81 mg PO DAILY [facility] OF [facility] Last Admin: 01/14/22 10:52 Dose: 81 mg Documented by: SADAF Atorvastatin Calcium (Atorvastatin Calcium 40 Mg Tablet) 40 mg PO BEDTIME [facility] Last Admin: 01/13/22 21:22 Dose: 40 mg Documented by: KWESI Dextrose (Dextrose 50 % 25 Gm/50 Ml Syringe) 25 gm IVPUSH Q15M PRN; Protocol PRN Reason: per Hypoglycemia Standing Ord. Fluticasone/Vilanterol (Fluticasone/Vilanterol 100/25 Blst.W.Dev) 1 puff INHALE RDAILY [facility] Last Admin: 01/14/22 08:13 Dose: 1 puff Documented by: JONAH Gabapentin (Gabapentin 100 Mg Capsule) 200 mg PO TID [facility] Last Admin: 01/14/22 10:52 Dose: 200 mg Documented by: SADAF Glucose (Glucose Gel 15 Gm Gel..Gram.) 15 gm PO Q15M PRN; Protocol PRN Reason: per Hypoglycemia Standing Ord. Heparin Sodium (Porcine) (Heparin Sodium,Porcine 5,000 Unit/Ml Vial) 5,000 unit SUBCUT Q8H [facility] Last Admin: 01/14/22 07:37 Dose: 5,000 unit Documented by: ELOISARAMCHARLEY Hydromorphone HCl (Hydromorphone Hcl 0.5 Mg/0.5 Ml Syringe) 0.5 mg IVPUSH Q4H PRN; Protocol PRN Reason: Pain, Severe (Pain Scale 7-10) Last Admin: 01/13/22 08:05 Dose: 0.5 mg Documented by: EBENEZER Insulin Human Lispro (Insulin Lispro 100 Unit/Ml 3 Ml Vial) 0 unit SUBCUT QIDACHS [facility]; Protocol Last Admin: 01/14/22 11:50 Dose: 6 unit Documented by: MICHAEL Labetalol HCl (Labetalol Hcl 100 Mg/20 Ml Vial) 10 mg IVPUSH Q4H [facility] Last Admin: 01/14/22 10:53 Dose: Not Given Documented by: SADAF Non-Admin Reason: will check with MD to change to PO if needed Lorazepam (Lorazepam 0.5 Mg Tablet) 0.5 mg PO BID PRN PRN Reason: Anxiety Last Admin: 01/13/22 21:22 Dose: 0.5 mg Documented by: KWESI Melatonin (Melatonin 3 Mg Tablet) 6 mg PO BEDTIME PRN PRN Reason: Insomnia Last Admin: 01/13/22 21:23 Dose: 6 mg Documented by: KWESI Melatonin (Melatonin 3 Mg Tablet) 6 mg PO BEDTIME PRN PRN Reason: Sleep Metoclopramide HCl (Metoclopramide Hcl 10 Mg/2 Ml Vial) 5 mg IVPUSH QIDACHS ON [facility] Last Admin: 01/14/22 11:50 Dose: 5 mg Documented by: MICHAEL Metoprolol Succinate (Metoprolol Succinate Er 50 Mg Tab.Er.24h) 50 mg PO DAILY [facility]; Protocol Last Admin: 01/14/22 10:52 Dose: 50 mg Documented by: SADAF Nitroglycerin (Nitroglycerin 0.4 Mg Tab.Subl) 0.4 mg SUBLINGUAL Q5M PRN PRN Reason: Chest Pain Ondansetron HCl (Ondansetron Hcl 4 Mg/2 Ml Vial) 4 mg IVPUSH Q4H PRN PRN Reason: nausea/vomiting Last Admin: 01/11/22 18:35 Dose: 4 mg Documented by: TEDDY Oxycodone HCl (Oxycodone Hcl Immed Release 5 Mg Tablet) 5 mg PO Q4H PRN PRN Reason: Pain, Moderate (Pain Scale 4-6 Last Admin: 01/14/22 13:06 Dose: 5 mg Documented by: MICHAEL Sodium Chloride (0.9 % Sodium Chloride Flush 3 Ml Syringe) 3 ml IVFLUSH QSHIFT ON [facility] Last Admin: 01/14/22 07:42 Dose: 3 ml Documented by: ELOISARAMCHARLEY Tamsulosin HCl (Tamsulosin Hcl 0.4 Mg Capsule) 0.4 mg PO DAILY@1700 [facility] Last Admin: 01/13/22 18:17 Dose: 0.4 mg Documented by: EBENEZER Trazodone HCl (Trazodone Hcl 25 Mg Halftab) 25 mg PO BEDTIME PRN PRN Reason: Sleep Labs CBC & Chem 7: 01/11/22 06:12 01/11/22 06:12 Labs: Laboratory Results - last 24 hr 01/13/22 01/13/22 01/14/22 18:08 21:33 07:35 POC Glucose 219 H 233 H 246 H 01/14/22 11:26 POC Glucose 286 H Assessment and Plan (1) Diabetic gastroparesis: Status: Acute (2) Uncontrolled hypertension: Status: Acute Plan 61-year-old female with a past medical history of hypertension, hyperlipidemia, diabetes, gastroparesis, CVA, CHF, history of cardiac pacemaker, COPD, osteoporosis, chronic kidney disease, GERD; presented to the hospital today with a chief complaint of nausea/vomiting in know backdrop of gastroparesis 1. Diabetic Gastroparesis - tolerating diet thus far..some nausea -will continue IV Reglan QID AC and HS -PPI IV q12hrs 2.Elevated troponins -seen by Cardiology..felt non acute; plateaued -trend daily to document resolution 3.HTN - acute episode resolved - continue outpt therapies and adjust as indicated 4.DMII -sliding scale -adjust as clinically indicated DVT prophylaxis: Subcu heparin Code status: Full code Quality Stroke Does the patient have a stroke diagnosis?: No VTE Prior VTE?: No VTE Risk Level:: Medical - moderate - high VTE Device Contraindication: Treatment Not Indicated VTE Drug Contraindication: N/A - Med Ordered
[2022-01-14 16:47] LABS: Glucose, Whole Blood 235 mg/dL (60-115)
[2022-01-14] MEDS: Tamsulosin HCL 0.4 MG CAPSULE PO (17:06)
[2022-01-14 20:31] LABS: Glucose, Whole Blood 230 mg/dL (60-115)
[2022-01-14] MEDS: Atorvastatin Calcium 40 MG TABLET PO (20:42)
[2022-01-15] VITALS (7 sets, daily range): BP systolic 146–200; BP diastolic 66–84; PULSE 77–86; RESP 18–20; TEMP 36.8–37.3; O2SAT 94–96
[2022-01-15] MEDS: oxyCODONE HCl Immed Release 5 MG TABLET PO (03:05)
[2022-01-15] MEDS: Labetalol HCL 100 MG/20 ML VIAL 10 MG IVPUSH ×3 (03:05→12:32)
[2022-01-15] MEDS: Heparin Sodium,Porcine 5,000 UNIT/ML VIAL 5000 UNIT SUBCUT (05:08)
[2022-01-15 07:06] LABS: Glucose, Whole Blood 267 mg/dL (60-115)
[2022-01-15] MEDS: Fluticasone/Vilanterol 100/25 BLST.W.DEV 1 PUFF INHALE (08:34)
[2022-01-15] MEDS: 0.9 % Sodium Chloride Flush 3 ML SYRINGE IVFLUSH (08:40)
[2022-01-15] MEDS: allopurinoL 100 MG TABLET PO (08:40)
[2022-01-15] MEDS: Aspirin Enteric Coated 81 MG TABLET.DR PO (08:40)
[2022-01-15] MEDS: Metoclopramide HCl 10 MG/2 ML VIAL 5 MG IVPUSH ×2 (08:41→12:33)
[2022-01-15] MEDS: Metoprolol Succinate ER 50 MG TAB.ER.24H PO (08:41)
[2022-01-15] MEDS: Gabapentin 100 MG CAPSULE 200 MG PO (08:41)
[2022-01-15] MEDS: Insulin Lispro 100 UNIT/ML 3 ML VIAL SUBCUT ×2 (08:42→12:33)
[2022-01-15 10:54] LABS: Glucose, Whole Blood 281 mg/dL (60-115)
--- NOTE | 2022-01-15 12:22 | P.DS_ITS ---
DS: Providers Provider Date of Service: 01/15/22 Date of admission: 01/10/22 04:55 Date of discharge: 01/15/22 Primary care physician: Shaneka Burton DO Consults: 01/10/22 04:55 Consult to Cardiology Routine Consulting Provider: Prudencio Zelaya Reason for consultation: elevated troponins 01/12/22 08:02 Consult to Gastroenterology Routine Consulting Provider: Estefanía Eastman Reason for consultation: gastroparesis Has provider been notified: No DS: Diagnosis Discharge Diagnosis (1) Diabetic gastroparesis: Status: Acute (2) Uncontrolled hypertension: Status: Acute DS: Summary Hospital Course Hospital Course: 61-year-old female with a past medical history of hypertension, hyperlipidemia, diabetes, gastroparesis, history of CVA, CHF, history of cardiac pacemaker, COPD, osteoporosis, chronic kidney disease, GERD; presented to the hospital today with a chief complaint of nausea/vomiting.? Patient reports that over the past 2 days she has been having nausea and vomiting; had multiple episodes of vomiting; denies any blood in the vomitus.? But noted bilious vomiting.? Report the symptoms are similar to the last time when she had flare-up of her gastroparesis but this time it is severe in intensity.? Reports she has not eaten in the past couple days.? Reports have diffuse abdominal discomfort.? Denies any diarrhea.? Patient also reports she has chest discomfort; burning in nature; denies any lightheadedness or dizziness.? Denies any shortness of breath or dyspnea on exertion.? Denies any fever chills cough.? Hospital Course omitted; given IV Reglan, IV omeprazole and IV Pepcid. Over the course next 48 hours symptoms a sided and patient is tolerating a diabetic diet at this point in time. She is requesting to be discharged and I believe this is medically appropriate. She will be discharged to home follow-up on home regimen and follow-up with GI as an outpatient Time Spent with Patient Time attestation: Total time spent providing and/or coordinating discharge services: Discharge coordination time: Greater than 30 minutes Quality: Stroke Does the patient have a stroke diagnosis?: No Physical Exam Vital Signs: Vital Signs: Last Vital Signs Temp 99.0 F 01/15/22 11:00 Pulse 77 01/15/22 11:00 Resp 18 01/15/22 11:00 BP 146/66 H 01/15/22 11:00 Pulse Ox 96 01/15/22 11:00 BMI result Body Mass Index 33.3 Const: Other: Awake alert oriented x3; ill-appearing Resp: Other: Clear to auscultation bilaterally no rales rhonchi wheezes Cardio: Other: No S4; positive S1-S2; no S3 murmurs rubs or gallops GI: Other: Soft diffusely tender skin (vomiting) bowel sounds x4 quadrants. No guarding Extrem: Other: No edema bilaterally DS: Data Data Completed and Pending Completed studies during hospitalization [Text1]: Procedures Insertion of Infusion Device into Right Basilic Vein, Percutaneous Approach (10/31/20) Transfusion of Nonautologous Red Blood Cells into Peripheral Vein, Percutaneous Approach (10/31/20) Labs on day of discharge: Laboratory Results - last 24 hr 01/14/22 01/14/22 01/15/22 16:38 20:22 07:02 POC Glucose 235 H 230 H 267 H 01/15/22 10:47 POC Glucose 281 H Discharge Plan Discharge Patient Disposition: Home Health Service Discharge Diagnosis: Diabetic Gastroparesis Referrals: [facility] [Outside] - 1 Week Physician,Unknown J [Physician] - 1 Week Discharge Medications: New hydrocodone-acetaminophen 10-325 mg Tablet 1 tab PO Q6H PRN (Reason: Pain, Moderate (Pain Scale 4-6) Qty: 30 0RF Continued furosemide 40 mg tablet 40 mg PO DAILY Qty: 90 3RF lorazepam 0.5 mg Tablet 0.5 mg PO BID PRN (Reason: Anxiety) 0RF metoprolol succinate [Toprol XL] 50 mg Tablet Extended Release 24 Hr 50 mg PO DAILY 0RF allopurinol 100 mg Tablet 100 mg PO DAILY 0RF albuterol sulfate 90 mcg/actuation Hfa Aerosol Inhaler 2 puff INHALATION Q6H PRN (Reason: Shortness Of Breath) 0RF Breo Ellipta 100-25 mcg/dose Blister With Device 1 inh INHALATION DAILY PRN (Reason: Shortness Of Breath) 0RF aspirin 81 mg Tablet,Delayed Release (Dr/Ec) 81 mg PO DAILY 0RF Hold Instructions: Resume on 01/13/21. tamsulosin 0.4 mg capsule 0.4 mg PO DAILY@1700 0RF ferrous sulfate [iron] 325 mg (65 mg iron) Tablet 325 mg PO DAILY 0RF insulin aspart U-100 [Novolog Flexpen U-100 Insulin] 100 unit/mL (3 mL) Insulin Pen See Rx Instructions unit .ROUTE .COMPLEX 0RF Rx Instructions: pt states she uses 8 units if BG <200 and 10 units when BG >200 nitroglycerin 0.4 mg Tablet, Sublingual 0.4 mg SUBLINGUAL Q5M PRN (Reason: Chest Pain) 0RF melatonin 5 mg Tablet 5 mg PO BEDTIME PRN (Reason: Sleep) 0RF gabapentin 100 mg capsule 200 mg PO TID 0RF lisinopril 5 mg tablet 1 tab PO DAILY 0RF trazodone 50 mg tablet 0.5 tab PO BEDTIME PRN (Reason: Sleep) 0RF meloxicam 7.5 mg tablet 1 tab PO DAILY 0RF Tradjenta 5 mg tablet 1 tab PO DAILY 0RF ipratropium bromide 21 mcg (0.03 %) spray,non-aerosol 1 spray intranasal USEASDIRECTD 0RF atorvastatin 80 mg tablet 1 tab PO BEDTIME 0RF pantoprazole 40 mg tablet,delayed release (DR/EC) 1 tab PO DAILY 0RF acetaminophen 325 mg tablet 2 tab PO Q4H PRN (Reason: pain) 0RF metoclopramide HCl 5 mg tablet 5 mg PO QID 0RF Rx Instructions: with meals (DME) pen needle, diabetic 31 gauge x 5/16 needle See Rx Instructions ea subcut .MEDSUPPLY Qty: 1200 0RF Rx Instructions: As directed cholecalciferol (vitamin D3) 25 mcg (1,000 unit) capsule 25 mcg PO DAILY 0RF Tresiba FlexTouch U-100 100 unit/mL (3 mL) insulin pen 32 unit subcut DAILY 0RF Discharge Orders: Discharge Order (Routine); Ordered 01/15/22 Ordered By: Andrew Williamson Diet: advance to usual diet Activity on Discharge: As tolerated Stand Alone Forms: Patient Portal Discharge page Care Plan Goals: continue with outpatient therapies as ordered. May use Vicodin as needed for pain Health Concerns: follow-up with GI, small frequent meals Plan of Treatment: continue to attempt to control blood sugars and complaints therapies Assessment: as per discharge summary
--- NOTE | 2022-01-15 12:51 | MHC.CM.PN ---
Patient has been medically cleared for dc to home today with services. Patient is active with Cameron WRIGHT, who has been notified of today's dc and sent the dc summary, via [employer]. Second IMM addressed with Patient and original was given to her and a copy has been placed on the chart.Patient is aware of and in agreement with the dc plan.
== END 2022-01-15 14:00 | disposition home health service (06) | DRG 74 ==
LOC: HO.ED 01-10 01:14 → HO.EDOVER 01-10 05:01 → HO.IMC 01-14 06:40
PROVIDERS: Family Medicine; Admitting Provider Hospitalist; Emergency Provider Emergency Medicine; PCP Internal Medicine; Visit Provider Hospitalist
DX: E11.43 Type 2 diabetes mellitus with diabetic autonomic (poly)neuropathy (principal); K31.84 Gastroparesis; I12.9 Hypertensive chronic kidney disease with stage 1 through stage 4 chronic kidney disease, or unspecified chronic kidney disease; N18.30 Chronic kidney disease, stage 3 unspecified; E11.22 Type 2 diabetes mellitus with diabetic chronic kidney disease; I16.0 Hypertensive urgency; Z86.73 Personal history of transient ischemic attack (TIA), and cerebral infarction without residual deficits; Z95.0 Presence of cardiac pacemaker; Z20.822 Contact with and (suspected) exposure to COVID-19; Z79.1 Long term (current) use of non-steroidal anti-inflammatories (NSAID); Z79.4 Long term (current) use of insulin; Z79.82 Long term (current) use of aspirin; Z79.899 Other long term (current) drug therapy
CPT/HCPCS: 36415; 70450; 74176; 80048; 80076; 82803; 82947; 83690; 83735; 84484; 85025; 85027; 87635; 93005; 94640; 96361; 96374; 96375; 96376; 99285; J1170; J2060; J2405; J2765

== ENCOUNTER → 2022-01-21 10:18 | Outpatient (BNVA) | payer OTHER, SELFPAY | PROVIDERS: Visit Provider Internal Medicine Cardiovascular Disease | DX: Z45.018 Encounter for adjustment and management of other part of cardiac pacemaker (principal); I50.32 Chronic diastolic (congestive) heart failure; I25.10 Atherosclerotic heart disease of native coronary artery without angina pectoris; G90.9 Disorder of the autonomic nervous system, unspecified | CPT/HCPCS: 99212 ==

== ENCOUNTER 2022-02-04 17:51 | Emergency (ER) | payer OTHER, MEDICAID, SELFPAY ==
--- NOTE | ~2022-02-04 | XR_ITS ---
EXAMINATION: XR CHEST CLINICAL INFORMATION: Cough with chest pain COMPARISON: 01/09/2022 TECHNIQUE: Frontal view of the chest was obtained. FINDINGS: No significant abnormality is noted involving the heart, lungs, mediastinum, bony thorax or soft tissues. Again seen is median sternotomy and a bipolar left chest wall pacemaker. XR/XR chest 1V IMPRESSION: Unremarkable examination.
[2022-02-04 18:00] VITALS: BP 170/72; PULSE 94; O2SAT 96
[2022-02-04 18:34] VITALS: PULSE 82; RESP 18; TEMP 36.8; O2SAT 97; BMI 32.0
--- NOTE | 2022-02-04 19:23 | ECG_ITS ---
Test Reason : heart palp Blood Pressure : / mmHG Vent. Rate : 087 BPM Atrial Rate : 087 BPM P-R Int : 214 ms QRS Dur : 110 ms QT Int : 390 ms P-R-T Axes : 052 092 250 degrees QTc Int : 469 ms Atrial-sensed ventricular-paced rhythm with prolonged AV conduction Abnormal ECG When compared with ECG of 12-JAN-2022 01:11, Vent. rate has increased BY 16 BPM Referred By: Generic ED Physician Electronically Signed By:STEVE MASON
[2022-02-04 19:27] LABS: COVID-19 Test Negative (Negative)
--- NOTE | 2022-02-04 20:11 | PC.NURSE ---
UNABLE TO GET LABS PATIENT A DIFFICULT DRAW ,RN AND CHARGE AWARE .
[2022-02-04 21:06] VITALS: BP 113/43; PULSE 944; RESP 16; TEMP 37.1; O2SAT 100
--- NOTE | 2022-02-04 21:20 | ED.GENADULT ---
HPI - General Adult General Chief complaint: General Medical Stated complaint: PALACIOS [employer] COUGH CHEST WALL APIN Time Seen by Provider: 02/04/22 21:20 Source: patient Mode of arrival: EMS Limitations: no limitations History of Present Illness HPI narrative: Patient with multiple medical problems been here multiple times for pain asking for narcotics comes here for chest pain headache body aches since morning today asking for Dilaudid also states she is nauseated. No shortness of breath no cough no fever or chills patient states her blood pressure was 80 by 60 in the morning but on arrival blood pressure is 113/43 with pulse of 94 Related Data Home Medications Medication Instructions Recorded Confirmed lorazepam 0.5 mg tablet 0.5 mg PO BID PRN 09/14/20 01/21/22 albuterol sulfate 90 mcg/actuation 2 puff INHALATION Q6H PRN 09/16/20 01/21/22 aerosol inhaler allopurinol 100 mg tablet 100 mg PO DAILY 09/16/20 01/21/22 aspirin 81 mg tablet,delayed 81 mg PO DAILY 09/16/20 01/21/22 release fluticasone furoate 100 1 inh INHALATION DAILY PRN 09/16/20 01/21/22 mcg-vilanterol 25 mcg/dose inhalation powder (Breo Ellipta) metoprolol succinate 50 mg 50 mg PO DAILY 09/16/20 01/21/22 tablet,extended release 24 hr (Toprol XL) insulin degludec 100 unit/mL (3 32 unit SUBCUT DAILY ml 11/13/20 01/21/22 mL) subcutaneous pen (Tresiba FlexTouch U-100 insulin) ferrous sulfate 325 mg (65 mg 325 mg PO DAILY 12/22/20 01/21/22 iron) tablet (iron) tamsulosin 0.4 mg capsule 0.4 mg PO DAILY@1700 12/22/20 01/21/22 insulin aspart U-100 100 unit/mL See Rx Instructions .ROUTE .COMPLEX 01/08/21 01/21/22 (3 mL) subcutaneous pen (Novolog Flexpen U-100 Insulin aspart) melatonin 5 mg tablet 5 mg PO BEDTIME PRN 01/08/21 01/21/22 nitroglycerin 0.4 mg sublingual 0.4 mg SUBLINGUAL Q5M PRN 01/08/21 01/21/22 tablet gabapentin 100 mg capsule 200 mg PO TID 03/06/21 01/21/22 cholecalciferol (vitamin D3) 25 25 mcg PO DAILY 03/20/21 01/21/22 mcg (1,000 unit) capsule metoclopramide HCl 5 mg tablet 5 mg PO QID 03/20/21 01/21/22 pen needle, diabetic 31 gauge x #1200 ea 03/20/21 01/10/2204/06 acetaminophen 325 mg tablet 2 tab PO Q4H PRN 01/10/22 01/21/22 ipratropium bromide 21 mcg (0.03 1 spray INTRANASAL USEASDIRECTD 01/10/22 01/21/22 %) nasal spray meloxicam 7.5 mg tablet 1 tab PO DAILY 01/10/22 01/21/22 pantoprazole 40 mg tablet,delayed 1 tab PO DAILY 01/10/22 01/21/22 release trazodone 50 mg tablet 0.5 tab PO BEDTIME PRN 01/10/22 01/21/22 atorvastatin 80 mg tablet 80 mg PO BEDTIME 01/21/22 01/21/22 linagliptin 5 mg tablet (Tradjenta) 5 mg PO DAILY 01/21/22 01/21/22 lisinopril 5 mg tablet 5 mg PO DAILY 01/21/22 01/21/22 loperamide 2 mg capsule 0 mg PO 01/21/22 01/21/22 Previous Rx's Medication Instructions Recorded furosemide 40 mg tablet 40 mg PO DAILY #90 tab 12/06/20 hydrocodone 10 mg-acetaminophen 1 tab PO Q6H PRN #30 tab 01/15/22 325 mg tablet oxycodone 5 mg tablet 5 mg PO Q6H PRN #14 tab 02/04/22 Allergies Allergy/AdvReac Type Severity Reaction Status Date / Time tetracycline [Tetracycline] Allergy Mild HIVES, Verified 12/27/21 12:22 anaphylaxis, anaphylaxis Review of Systems Review of Systems: Yes all other systems are reviewed and are negative FOR[facility]LY [facility] Past Medical History Medical History Acute heart failure with preserved ejection fraction Anemia Anxiety Arthritis Cardiac pacemaker in situ Carpal tunnel syndrome CHF (congestive heart failure) Chronic heart failure with preserved ejection fraction (HFpEF) COPD exacerbation Coronary artery disease CVA (cerebral vascular accident) Diabetes Fall Gastritis Gastroparesis Gastroparesis GERD (gastroesophageal reflux disease) Headache HLD (hyperlipidemia) HTN (hypertension) HTN (hypertension) Hypocalcemia Hypoxia IBS (irritable bowel syndrome) Knee pain, left Myocardial infarct Nausea and vomiting Orthostasis Renal failure Suprapatellar effusion of knee T2DM (type 2 diabetes mellitus) UTI (urinary tract infection) Surgical History H/O Achilles tendon repair History of appendectomy History of bladder surgery History of carpal tunnel release History of total hysterectomy with bilateral salpingo-oophorectomy (BSO) Hx of amputation Hx of CABG (~2019) Hx of cholecystectomy Hx of endoscopy Hx of knee surgery Hx of tonsillectomy Family History Family History Father No problems noted. Mother Diabetes Hypercholesteremia Hypertension Stroke Social History Social History Household Members: Family Household Members Other:: 1 Housing: Apartment Do you presently have visiting nurse or other home services: Yes (AM/PM med nurse) Alcohol intake: never Patient Tobacco Use Status: Former Tobacco user Years Smoked: 20 Second Hand Smoke Exposure: No Advance Directives: Yes Advance Directives on File: Yes Advance Directives Date on File: 01/13/22 service: No Current occupational status: disabled Physical Exam ED Vital Signs: Vital Signs - 24 hr 02/04/22 18:34 02/04/22 21:06 02/04/22 21:58 Temperature 98.2 F 98.8 F 99.8 F Pulse Rate 82 944 H 90 Respiratory Rate 18 16 16 Blood Pressure 113/43 L 129/51 L Pulse Oximetry 97 100 95 02/04/22 23:45 02/05/22 00:20 Temperature Pulse Rate 81 Respiratory Rate 18 18 Blood Pressure 124/46 L Pulse Oximetry 98 98 BMI result Body Mass Index 32.0 Appearance: Alert. Oriented X3. No acute distress. Eyes: PERRLA, No Nystagmus ENT: Pharynx normal. Oral Mucosa moist Neck: Normal inspection. Neck supple. CVS: Normal heart rate and rhythm. Pulses normal. Respiratory: No respiratory distress. Equal air entry bilateral, no wheezing/rales/rhonchi Abdomen: Soft and nontender. Bowel sounds are present, no mass palpable, no CVA tenderness Skin: Skin warm and dry. Normal skin color. Normal skin turgor. Extremities: No lower extremity edema. No calf tenderness Neuro: Oriented X 3. No motor deficit. No sensory deficit.No cerebellar signs , cranial nerves II-XII intact Medical Decision Making MDM Narrative Medical decision making narrative: Patient with chronic pain with frequent ED visits discharge patient home on oxycodone nontoxic look no ischemic changes in the EKG Lab Data Lab results reviewed: Yes I reviewed the patient's lab results. Labs: Lab Results 02/04/22 02/04/22 Range/Units 18:53 22:16 POC Glucose 146 H (60-115) mg/dL COVID-19 ([facility]) Negative (Negative) COVID-19 Clin Com See Note ECG Data Attestation: I personally reviewed and interpreted this ECG as follows: Interpretation: Atrial paced cardiac rhythm with heart rate of 87 beats per minute no acute STT wave changes no acute ischemia Discharge Plan Discharge Clinical Impression: Chronic pain disorder, Anxiety Patient Disposition: Home, Self-Care Instructions: Chronic Pain (ED), Anxiety (ED) Additional Instructions: Continue pain medications and follow-up with your PCP Prescriptions: New oxycodone 5 mg tablet 5 mg PO Q6H PRN (Reason: pain) Qty: 14 0RF No Action furosemide 40 mg tablet 40 mg PO DAILY Qty: 90 3RF lorazepam 0.5 mg Tablet 0.5 mg PO BID PRN (Reason: Anxiety) 0RF metoprolol succinate [Toprol XL] 50 mg Tablet Extended Release 24 Hr 50 mg PO DAILY 0RF allopurinol 100 mg Tablet 100 mg PO DAILY 0RF albuterol sulfate 90 mcg/actuation Hfa Aerosol Inhaler 2 puff INHALATION Q6H PRN (Reason: Shortness Of Breath) 0RF Breo Ellipta 100-25 mcg/dose Blister With Device 1 inh INHALATION DAILY PRN (Reason: Shortness Of Breath) 0RF aspirin 81 mg Tablet,Delayed Release (Dr/Ec) 81 mg PO DAILY 0RF Hold Instructions: Resume on 01/13/21. tamsulosin 0.4 mg capsule 0.4 mg PO DAILY@1700 0RF ferrous sulfate [iron] 325 mg (65 mg iron) Tablet 325 mg PO DAILY 0RF insulin aspart U-100 [Novolog Flexpen U-100 Insulin] 100 unit/mL (3 mL) Insulin Pen See Rx Instructions unit .ROUTE .COMPLEX 0RF Rx Instructions: pt states she uses 8 units if BG <200 and 10 units when BG >200 nitroglycerin 0.4 mg Tablet, Sublingual 0.4 mg SUBLINGUAL Q5M PRN (Reason: Chest Pain) 0RF melatonin 5 mg Tablet 5 mg PO BEDTIME PRN (Reason: Sleep) 0RF gabapentin 100 mg capsule 200 mg PO TID 0RF trazodone 50 mg tablet 0.5 tab PO BEDTIME PRN (Reason: Sleep) 0RF meloxicam 7.5 mg tablet 1 tab PO DAILY 0RF ipratropium bromide 21 mcg (0.03 %) spray,non-aerosol 1 spray intranasal USEASDIRECTD 0RF pantoprazole 40 mg tablet,delayed release (DR/EC) 1 tab PO DAILY 0RF acetaminophen 325 mg tablet 2 tab PO Q4H PRN (Reason: pain) 0RF hydrocodone-acetaminophen 10-325 mg Tablet 1 tab PO Q6H PRN (Reason: Pain, Moderate (Pain Scale 4-6) Qty: 30 0RF atorvastatin 80 mg tablet 80 mg PO BEDTIME 0RF Tradjenta 5 mg tablet 5 mg PO DAILY 0RF lisinopril 5 mg tablet 5 mg PO DAILY 0RF metoclopramide HCl 5 mg tablet 5 mg PO QID 0RF Rx Instructions: with meals (DME) pen needle, diabetic 31 gauge x 5/16 needle See Rx Instructions ea subcut .MEDSUPPLY Qty: 1200 0RF Rx Instructions: As directed cholecalciferol (vitamin D3) 25 mcg (1,000 unit) capsule 25 mcg PO DAILY 0RF Tresiba FlexTouch U-100 100 unit/mL (3 mL) insulin pen 32 unit subcut DAILY 0RF loperamide 2 mg capsule 0 mg PO 0RF
[2022-02-04] MEDS: Ondansetron ODT 4 MG TAB.RAPDIS TRANSLINGU (21:34)
[2022-02-04] MEDS: Butalb/Acetamin/Caff 50/325/40 TABLET 2 TAB PO (21:35)
--- NOTE | 2022-02-04 21:41 | PC.NURSE ---
when this RN scanned Fioricet tablet, MAR indicated that 2 tablets should have been scanned. MAR order states Fioricet 2 tablets/1tab . this RN only removed 1 tablet from Pyxsis and confirmed order in Pyxis was for 1 tablet. Mariela RN spoke to pharmacy and pharmacy stated to confirm order with provider Dr. Vaughn. Per Dr. Vaughn pt is only to receive 1 tablet. This RN administered 1 tablet of Fioricet to pt per MD order. Charge nurse/Mariela RN aware.
[2022-02-04 21:58] VITALS: BP 129/51; PULSE 90; RESP 16; TEMP 37.7; O2SAT 95
[2022-02-04 22:20] LABS: Glucose, Whole Blood 146 mg/dL (60-115)
[2022-02-04] MEDS: LORazepam 1 MG TABLET PO (22:46)
[2022-02-04 23:45] VITALS: BP 124/46; PULSE 81; RESP 18; O2SAT 98
[2022-02-05 00:20] VITALS: RESP 18; O2SAT 98
== END 2022-02-05 01:30 | disposition home or self-care (01) ==
PROVIDERS: Emergency Provider Internal Medicine
DX: F41.1 Generalized anxiety disorder (principal); F43.0 Acute stress reaction; G89.29 Other chronic pain; R05.9 Cough, unspecified; R51.9 Headache, unspecified; R07.89 Other chest pain; Z87.891 Personal history of nicotine dependence; Z79.899 Other long term (current) drug therapy; Z20.822 Contact with and (suspected) exposure to COVID-19
CPT/HCPCS: 71045; 82947; 87635; 93005; 99284

== ENCOUNTER 2022-02-13 00:30 | Emergency (ER) | payer OTHER, MEDICAID, SELFPAY ==
--- NOTE | ~2022-02-13 | CT_ITS ---
EXAMINATION: CT HEAD WITHOUT CONTRAST CLINICAL INFORMATION: Fall. Headache. COMPARISON: 01/10/2022 TECHNIQUE: Contiguous axial imaging was performed from the skull base to vertex without intravenous administration of contrast. This CT examination was performed using dose optimization techniques as appropriate, variously including the following: *Automated exposure control *Adjustment of mA and/or kV according to patient size (this includes techniques or standardized protocols for targeted exams where dose is matched to indication/reason for exam; i.e. extremities or head) *Use of iterative reconstruction technique DLP: 696 mGy-cm FINDINGS: There is no evidence of acute intracranial hemorrhage or territorial infarction. No abnormal mass effect or midline shift is seen. Mike to white matter differentiation is well preserved. No extra-axial fluid collections are identified. The ventricles are normal in size. A few foci of hypoattenuation in the subcortical and periventricular white matter are most consistent with chronic microangiopathic changes. Calcific atherosclerosis is present within the cavernous segments of the internal carotid arteries. The osseous structures and soft tissues are normal. The mastoid air cells and visualized portions of the paranasal sinuses are well aerated. CT/CT head/brain wo con IMPRESSION: No acute intracranial pathology.
[2022-02-13 00:46] VITALS: BP 105/53; BP 107/61; PULSE 74; PULSE 75; RESP 16; TEMP 37.1; O2SAT 100; O2SAT 98; BMI 31.1
--- NOTE | 2022-02-13 01:03 | ECG_ITS ---
Test Reason : dizziness Blood Pressure : / mmHG Vent. Rate : 075 BPM Atrial Rate : 075 BPM P-R Int : 216 ms QRS Dur : 118 ms QT Int : 442 ms P-R-T Axes : -29 099 256 degrees QTc Int : 493 ms Atrial-sensed ventricular-paced rhythm with prolonged AV conduction Abnormal ECG When compared with ECG of 04-FEB-2022 19:57, Vent. rate has decreased BY 12 BPM Referred By: Henri Salmon Electronically Signed By:LG SALAZAR MD
--- NOTE | 2022-02-13 01:06 | ED_ITS ---
HPI - General Adult General Chief complaint: Fall Stated complaint: FALL Time Seen by Provider: 02/13/22 00:59 History of Present Illness HPI narrative: This is a 61-year-old female with multiple medical problems who states she has been feeling nauseated all day long, and she went to use the bathroom tonight, urinated and then had a bowel movement and when she went to stand up she blacked out and fell, hitting her head on the drain pipe of the sink. She said she came to immediately. She does have a headache. She denies any neck pain or numbness or weakness in arms or legs. She denies any chest pain or shortness of breath. She denies abdominal pain. An ambulance was called and EMS found the patient to be borderline hypertensive with a systolic blood pressure of 90 and she was given a normal saline bolus with improvement in her blood pressure. Related Data Home Medications Medication Instructions Recorded Confirmed lorazepam 0.5 mg tablet 0.5 mg PO BID PRN 09/14/20 01/21/22 albuterol sulfate 90 mcg/actuation 2 puff INHALATION Q6H PRN 09/16/20 01/21/22 aerosol inhaler allopurinol 100 mg tablet 100 mg PO DAILY 09/16/20 01/21/22 aspirin 81 mg tablet,delayed 81 mg PO DAILY 09/16/20 01/21/22 release fluticasone furoate 100 1 inh INHALATION DAILY PRN 09/16/20 01/21/22 mcg-vilanterol 25 mcg/dose inhalation powder (Breo Ellipta) metoprolol succinate 50 mg 50 mg PO DAILY 09/16/20 01/21/22 tablet,extended release 24 hr (Toprol XL) insulin degludec 100 unit/mL (3 32 unit SUBCUT DAILY ml 11/13/20 01/21/22 mL) subcutaneous pen (Tresiba FlexTouch U-100 insulin) ferrous sulfate 325 mg (65 mg 325 mg PO DAILY 12/22/20 01/21/22 iron) tablet (iron) tamsulosin 0.4 mg capsule 0.4 mg PO DAILY@1700 12/22/20 01/21/22 insulin aspart U-100 100 unit/mL See Rx Instructions .ROUTE .COMPLEX 01/08/21 01/21/22 (3 mL) subcutaneous pen (Novolog Flexpen U-100 Insulin aspart) melatonin 5 mg tablet 5 mg PO BEDTIME PRN 01/08/21 01/21/22 nitroglycerin 0.4 mg sublingual 0.4 mg SUBLINGUAL Q5M PRN 01/08/21 01/21/22 tablet gabapentin 100 mg capsule 200 mg PO TID 03/06/21 01/21/22 cholecalciferol (vitamin D3) 25 25 mcg PO DAILY 03/20/21 01/21/22 mcg (1,000 unit) capsule metoclopramide HCl 5 mg tablet 5 mg PO QID 03/20/21 01/21/22 pen needle, diabetic 31 gauge x #1200 ea 03/20/21 01/10/2204/06 acetaminophen 325 mg tablet 2 tab PO Q4H PRN 01/10/22 01/21/22 ipratropium bromide 21 mcg (0.03 1 spray INTRANASAL USEASDIRECTD 01/10/22 01/21/22 %) nasal spray meloxicam 7.5 mg tablet 1 tab PO DAILY 01/10/22 01/21/22 pantoprazole 40 mg tablet,delayed 1 tab PO DAILY 01/10/22 01/21/22 release trazodone 50 mg tablet 0.5 tab PO BEDTIME PRN 01/10/22 01/21/22 atorvastatin 80 mg tablet 80 mg PO BEDTIME 01/21/22 01/21/22 linagliptin 5 mg tablet (Tradjenta) 5 mg PO DAILY 01/21/22 01/21/22 lisinopril 5 mg tablet 5 mg PO DAILY 01/21/22 01/21/22 loperamide 2 mg capsule 0 mg PO 01/21/22 01/21/22 Previous Rx's Medication Instructions Recorded furosemide 40 mg tablet 40 mg PO DAILY #90 tab 12/06/20 hydrocodone 10 mg-acetaminophen 1 tab PO Q6H PRN #30 tab 01/15/22 325 mg tablet oxycodone 5 mg tablet 5 mg PO Q6H PRN #14 tab 02/04/22 Allergies Allergy/AdvReac Type Severity Reaction Status Date / Time tetracycline [Tetracycline] Allergy Mild HIVES, Verified 12/27/21 12:22 anaphylaxis, anaphylaxis Review of Systems Review of Systems: Yes all other systems are reviewed and are negative Constitutional: Constitutional: Reports as per HPI, Denies fever(s) and Reports headache(s) Eyes: Eyes: Reports as per HPI and Reports no additional eye complaints ENT: Reports system reviewed and no additional complaints, except as documented, Reports as per HPI, Reports headache(s), Denies nasal congestion, Denies nasal discharge and Denies sore throat Cardiovascular: Cardiovascular: Reports as per HPI, Denies chest pain and Denies dyspnea Respiratory: Respiratory: Reports as per HPI, Denies cough and Denies dyspnea Gastrointestinal: Gastrointestinal: Reports as per HPI, Denies abdominal pain, Denies diarrhea, Reports nausea and Denies vomiting Genitourinary: Genitourinary: Reports as per HPI, Denies hematuria, Denies urinary frequency and Denies dysuria Musculoskeletal: Musculoskeletal: Reports no additional musculoskeletal complaints and Denies numbness Integumentary/Breasts: Skin/Breast: Reports as per HPI and Denies rash Neurologic: Reports as per HPI, Reports headache(s), Denies focal weakness and Denies numbness Psychiatric: Psychiatric: Reports no additional psychiatric complaints and Reports as per HPI Endocrine: Endocrine: Reports no additional endocrine complaints and Reports as per HPI Hematologic/Lymphatic: Hematologic/Lymphatic: Reports no additional hematologic/lymphatic complaints, Reports as per HPI and Reports other (No peripheral edema) ON LICENSE OF [facility] Past Medical History Medical History Acute heart failure with preserved ejection fraction Anemia Anxiety Arthritis Cardiac pacemaker in situ Carpal tunnel syndrome CHF (congestive heart failure) Chronic heart failure with preserved ejection fraction (HFpEF) COPD exacerbation Coronary artery disease CVA (cerebral vascular accident) Diabetes Fall Gastritis Gastroparesis Gastroparesis GERD (gastroesophageal reflux disease) Headache HLD (hyperlipidemia) HTN (hypertension) HTN (hypertension) Hypocalcemia Hypoxia IBS (irritable bowel syndrome) Knee pain, left Myocardial infarct Nausea and vomiting Orthostasis Renal failure Suprapatellar effusion of knee T2DM (type 2 diabetes mellitus) UTI (urinary tract infection) Surgical History H/O Achilles tendon repair History of appendectomy History of bladder surgery History of carpal tunnel release History of total hysterectomy with bilateral salpingo-oophorectomy (BSO) Hx of amputation Hx of CABG (~2019) Hx of cholecystectomy Hx of endoscopy Hx of knee surgery Hx of tonsillectomy Family History Family History Father No problems noted. Mother Diabetes Hypercholesteremia Hypertension Stroke Social History Social History Household Members: Family Household Members Other:: 1 Housing: Apartment Do you presently have visiting nurse or other home services: Yes (AM/PM med nurse) Alcohol intake: never Patient Tobacco Use Status: Former Tobacco user Years Smoked: 20 Second Hand Smoke Exposure: No Use of substances other than those prescribed or required for medical reasons: No Advance Directives: Yes Advance Directives on File: Yes Advance Directives Date on File: 01/13/22 Patient : No service: No Current occupational status: disabled Physical Exam ED Vital Signs: Vital Signs - 24 hr 02/13/22 00:46 02/13/22 01:26 Temperature 98.8 F Pulse Rate 75 77 Respiratory Rate 16 16 Blood Pressure 105/53 L 114/68 Pulse Oximetry 98 99 BMI result Body Mass Index 31.1 Medical Decision Making MDM Narrative Medical decision making narrative: Patient with what sounds like a vasovagal episode after using the toilet. Patient does have a pacemaker. EKG showed ventricular paced rhythm, atrial sensed with prolonged TX interval, consistent with increased vagal tone. Patient states she has been nauseated today. Patient initially had said she had not injured her head but then said to me that she had bumped her head. CT scan of the brain negative. CBC and chemistry show no concerning findings-patient's creatinine is elevated but has been at this level previously. Patient was given normal saline IV bolus before her IV infiltrated, was not hypotensive in the ED. Lab Data Lab results reviewed: Yes I reviewed the patient's lab results. Result diagrams: 02/13/22 01:37 02/13/22 01:37 Labs: Lab Results 02/13/22 02/13/22 Range/Units 01:37 01:37 WBC 11.4 H (4.8-10.8) X10*3/uL RBC 3.82 L (4.20-5.50) X10*6/uL Hgb 11.6 L (12.0-16.0) g/dl Hct 36.2 L (37.0-47.0) % MCV 94.8 (80.0-98.0) fL MCH 30.4 (27.0-33.0) pg MCHC 32.0 (31.0-35.0) g/dl RDW 13.2 (11.0-16.0) % Plt Count 277 (160-400) X10*3/uL MPV 10.6 (9.4-12.3) fL Immature Gran % (Auto) 1.1 H (0.0-0.4) % Neut % (Auto) 75.1 H (45-73) % Lymph % (Auto) 15.6 L (20-40) % [place] % (Auto) 6.6 (2-11) % Eos % (Auto) 1.2 (0-4) % Baso % (Auto) 0.4 (0-2) % Lymph # (Auto) 1.8 (1.2-4.9) X10*3/uL [place] # (Auto) 0.8 (0.1-1.2) X10*3/uL Eos # (Auto) 0.1 (0.0-0.4) X10*3/uL Baso # (Auto) 0.0 (0.0-0.2) X10*3/uL Abs Immat Gran (auto) 0.12 H (0.00-0.03) X10*3/uL Absolute Neuts (auto) 8.6 H (2.0-8.3) x10*3/uL Absolute Nucleated RBC 0.000 (0.0-0.012) X10*3/uL Nucleated RBC % (auto) 0.0 (0.0-0.2) /100WBC Sodium 139 (135-145) mmol/L Potassium 4.8 (3.3-5.1) mmol/L Chloride 104 (96-108) mmol/L Carbon Dioxide 23 (22-29) mmol/L Anion Gap 17 (12-20) BUN 59 H D (9-16) mg/dL Creatinine 2.56 H (0.5-1.4) mg/dL Estim Creat Clear Calc 21.6 Estimated GFR 19 Random Glucose 180 H (60-115) mg/dL Calcium 9.4 (8.4-10.2) mg/dL Total Bilirubin 0.5 (0.0-1.0) mg/dL AST 16 (5-31) U/L ALT 14 (0-31) U/L Alkaline Phosphatase 104 (39-117) U/L Total Protein 7.9 (6.5-8.0) g/dL Albumin 4.0 (3.5-5.0) g/dL Imaging Data CT scan - head: Radiologist's impression: IMPRESSION: No acute intracranial pathology. ECG Data Attestation: I personally reviewed and interpreted this ECG as follows: Interpretation: Atrial sensed ventricular paced rhythm with prolonged AV conduction some baseline artifact Discharge Plan Discharge Clinical Impression: Syncope, Minor closed head injury, Chronic kidney insufficiency Patient Disposition: Home, Self-Care Instructions: Syncope (ED), Head Injury (ED) Additional Instructions: Use acetaminophen for pain. Drink plenty of fluids. Follow-up with your [facility] physician. Prescriptions: No Action furosemide 40 mg tablet 40 mg PO DAILY Qty: 90 3RF lorazepam 0.5 mg Tablet 0.5 mg PO BID PRN (Reason: Anxiety) 0RF metoprolol succinate [Toprol XL] 50 mg Tablet Extended Release 24 Hr 50 mg PO DAILY 0RF allopurinol 100 mg Tablet 100 mg PO DAILY 0RF albuterol sulfate 90 mcg/actuation Hfa Aerosol Inhaler 2 puff INHALATION Q6H PRN (Reason: Shortness Of Breath) 0RF Breo Ellipta 100-25 mcg/dose Blister With Device 1 inh INHALATION DAILY PRN (Reason: Shortness Of Breath) 0RF aspirin 81 mg Tablet,Delayed Release (Dr/Ec) 81 mg PO DAILY 0RF Hold Instructions: Resume on 01/13/21. tamsulosin 0.4 mg capsule 0.4 mg PO DAILY@1700 0RF ferrous sulfate [iron] 325 mg (65 mg iron) Tablet 325 mg PO DAILY 0RF insulin aspart U-100 [Novolog Flexpen U-100 Insulin] 100 unit/mL (3 mL) Insulin Pen See Rx Instructions unit .ROUTE .COMPLEX 0RF Rx Instructions: pt states she uses 8 units if BG <200 and 10 units when BG >200 nitroglycerin 0.4 mg Tablet, Sublingual 0.4 mg SUBLINGUAL Q5M PRN (Reason: Chest Pain) 0RF melatonin 5 mg Tablet 5 mg PO BEDTIME PRN (Reason: Sleep) 0RF gabapentin 100 mg capsule 200 mg PO TID 0RF trazodone 50 mg tablet 0.5 tab PO BEDTIME PRN (Reason: Sleep) 0RF meloxicam 7.5 mg tablet 1 tab PO DAILY 0RF ipratropium bromide 21 mcg (0.03 %) spray,non-aerosol 1 spray intranasal USEASDIRECTD 0RF pantoprazole 40 mg tablet,delayed release (DR/EC) 1 tab PO DAILY 0RF acetaminophen 325 mg tablet 2 tab PO Q4H PRN (Reason: pain) 0RF hydrocodone-acetaminophen 10-325 mg Tablet 1 tab PO Q6H PRN (Reason: Pain, Moderate (Pain Scale 4-6) Qty: 30 0RF atorvastatin 80 mg tablet 80 mg PO BEDTIME 0RF Tradjenta 5 mg tablet 5 mg PO DAILY 0RF lisinopril 5 mg tablet 5 mg PO DAILY 0RF oxycodone 5 mg tablet 5 mg PO Q6H PRN (Reason: pain) Qty: 14 0RF metoclopramide HCl 5 mg tablet 5 mg PO QID 0RF Rx Instructions: with meals (DME) pen needle, diabetic 31 gauge x 5/16 needle See Rx Instructions ea subcut .MEDSUPPLY Qty: 1200 0RF Rx Instructions: As directed cholecalciferol (vitamin D3) 25 mcg (1,000 unit) capsule 25 mcg PO DAILY 0RF Tresiba FlexTouch U-100 100 unit/mL (3 mL) insulin pen 32 unit subcut DAILY 0RF loperamide 2 mg capsule 0 mg PO 0RF
[2022-02-13 01:26] VITALS: BP 114/68; PULSE 77; RESP 16; O2SAT 99
[2022-02-13 01:41] LABS: MANUAL DIFF FLAG NO
[2022-02-13 01:42] LABS: Basophils Percent Auto 0.4 % (0-2); Eosinophils Absolute Auto 0.1 X10*3/uL (0.0-0.4); Eosinophils Percent Auto 1.2 % (0-4); Hematocrit 36.2 % (37.0-47.0); Hemoglobin 11.6 g/dl (12.0-16.0); Imm Gran Abs Auto 0.12 X10*3/uL (0.00-0.03); Imm Gran Pct Auto 1.1 % (0.0-0.4); Lymphocytes Absolute Auto 1.8 X10*3/uL (1.2-4.9); Lymphocytes Percent Auto 15.6 % (20-40); Mean Corpuscular Hemoglobin 30.4 pg (27.0-33.0); Mean Corpuscular Volume 94.8 fL (80.0-98.0); Mean Platelet Volume 10.6 fL (9.4-12.3); Monocytes Absolute Auto 0.8 X10*3/uL (0.1-1.2); Monocytes Percent Auto 6.6 % (2-11); Neutrophils Absolute Auto 8.6 x10*3/uL (2.0-8.3); Neutrophils Percent Auto 75.1 % (45-73); Platelet Count 277 X10*3/uL (160-400); Red Blood Count 3.82 X10*6/uL (4.20-5.50); Red Cell Distribution Width 13.2 % (11.0-16.0); White Blood Count 11.4 X10*3/uL (4.8-10.8)
--- NOTE | 2022-02-13 01:45 | PC.NURSE ---
Unable to secure IV access. Patient's IV access put in by EMS is not working and pulled. MD notified that we are unable to obtain access.
[2022-02-13 02:02] LABS: Alanine Aminotransferase 14 U/L (0-31); Alkaline Phosphatase 104 U/L (39-117); Anion Gap 17 (12-20); Aspartate Amino Transferase 16 U/L (5-31); Bilirubin Total 0.5 mg/dL (0.0-1.0); Blood Urea Nitrogen 59 mg/dL (9-16); Calcium 9.4 mg/dL (8.4-10.2); Carbon Dioxide 23 mmol/L (22-29); Chloride 104 mmol/L (96-108); Creatinine Clr Calc Pharmacy 21.6; Estimated Glomerular Filt Rate 19; Glucose Random 180 mg/dL (60-115); Potassium 4.8 mmol/L (3.3-5.1); Sodium 139 mmol/L (135-145); Total Protein 7.9 g/dL (6.5-8.0)
[2022-02-13] MEDS: Acetaminophen 325 MG TABLET 650 MG PO (02:26)
[2022-02-13 02:34] LABS: Troponin-I High Sensitivity 75.8 ng/L (<3.5-17.0)
== END 2022-02-13 03:53 | disposition home or self-care (01) ==
PROVIDERS: Emergency Provider Emergency Medicine
DX: R55 Syncope and collapse (principal); S09.90XA Unspecified injury of head, initial encounter; W18.12XA Fall from or off toilet with subsequent striking against object, initial encounter; E11.22 Type 2 diabetes mellitus with diabetic chronic kidney disease; I13.0 Hypertensive heart and chronic kidney disease with heart failure and stage 1 through stage 4 chronic kidney disease, or unspecified chronic kidney disease; N18.9 Chronic kidney disease, unspecified; I50.9 Heart failure, unspecified; E78.5 Hyperlipidemia, unspecified; Z91.81 History of falling; Z87.891 Personal history of nicotine dependence; Z86.73 Personal history of transient ischemic attack (TIA), and cerebral infarction without residual deficits; Z95.0 Presence of cardiac pacemaker; Z95.1 Presence of aortocoronary bypass graft; Z79.82 Long term (current) use of aspirin; Z79.4 Long term (current) use of insulin; Z79.02 Long term (current) use of antithrombotics/antiplatelets; Y93.89 Activity, other specified; Y92.031 Bathroom in apartment as the place of occurrence of the external cause; Y99.9 Unspecified external cause status
CPT/HCPCS: 36415; 70450; 80053; 84484; 85025; 93005; 96361; 96374; 99284; 99285

== ENCOUNTER 2022-02-19 11:47 | Observation (INO) | payer OTHER, SELFPAY ==
[2022-02-19] VITALS (12 sets, daily range): BP systolic 77–137; BP diastolic 38–66; PULSE 65–80; RESP 11–18; TEMP 36.7–37.1; O2SAT 94–100; BMI 31.1
--- NOTE | ~2022-02-19 | CT_ITS ---
EXAMINATION: CT BRAIN AND CHEST EXAM. CLINICAL INFORMATION: SOB. COMPARISON: None TECHNIQUE: 5 mm thin axial and reformatted 2 mm thin sagittal and coronal images of brain were obtained. DLP [id number]. Chest AP upright view. FINDINGS: Chest: The lungs are well-expanded and clear of acute process. The heart size and pulmonary vascularity is normal. There are dual pacer electrode in right atrium and right ventricle. There are median sternotomy sutures and mediastinal russ. Brain: There is no acute intra-axial, extra-axial bleed, masses or midline shift. There is no acute infarction in evolution. There is no edema. The lateral ventricles are symmetrical in size and configuration with mild prominence. The [place] to white matter differentiation is maintained normal. Bone windows reveal no gross bony abnormality. There is no scalp soft tissue abnormality. Bilateral paranasal sinuses and mastoid air cells are well aerated. CT/CT head/brain wo con IMPRESSION: Unremarkable chest exam. No acute intracranial process seen.
--- NOTE | ~2022-02-19 | NM_ITS ---
EXAMINATION: PULMONARY PERFUSION STUDY CLINICAL INFORMATION: Chest pain and elevated d-dimer. COMPARISON: Chest x-ray earlier . TECHNIQUE: The patient received 3.4 mCi Tc-99m MAA intravenously and an 8 view perfusion study was performed. FINDINGS: No segmental perfusion defects are present. There is homogeneous distribution of activity bilaterally. There are no focal anatomic appearing perfusion defects present. NM/NM pul perfusion IMPRESSION: Normal radionuclide lung perfusion scan.
--- NOTE | 2022-02-19 11:59 | ECG_ITS ---
Test Reason : hypotension Blood Pressure : / mmHG Vent. Rate : 082 BPM Atrial Rate : 082 BPM P-R Int : 218 ms QRS Dur : 124 ms QT Int : 416 ms P-R-T Axes : -19 096 -85 degrees QTc Int : 486 ms Atrial-sensed ventricular-paced rhythm with prolonged AV conduction Abnormal ECG When compared with ECG of 13-FEB-2022 01:11, Vent. rate has increased BY 7 BPM T inversions more prominent Referred By: Generic ED Physician Electronically Signed By:STEVE MASON
[2022-02-19 12:14] LABS: Glucose, Whole Blood 167 mg/dL (60-115)
[2022-02-19 12:19] LABS: MANUAL DIFF FLAG NO
[2022-02-19 12:21] LABS: Basophils Percent Auto 0.3 % (0-2); Eosinophils Absolute Auto 0.2 X10*3/uL (0.0-0.4); Eosinophils Percent Auto 1.5 % (0-4); Hematocrit 36.5 % (37.0-47.0); Hemoglobin 11.6 g/dl (12.0-16.0); Imm Gran Abs Auto 0.05 X10*3/uL (0.00-0.03); Imm Gran Pct Auto 0.4 % (0.0-0.4); Lymphocytes Absolute Auto 2.4 X10*3/uL (1.2-4.9); Lymphocytes Percent Auto 19.6 % (20-40); Mean Corpuscular HGB Conc 31.8 g/dl (31.0-35.0); Mean Corpuscular Hemoglobin 30.8 pg (27.0-33.0); Mean Corpuscular Volume 96.8 fL (80.0-98.0); Mean Platelet Volume 11.2 fL (9.4-12.3); Monocytes Absolute Auto 0.8 X10*3/uL (0.1-1.2); Monocytes Percent Auto 6.2 % (2-11); Neutrophils Absolute Auto 8.9 x10*3/uL (2.0-8.3); Platelet Count 235 X10*3/uL (160-400); Red Blood Count 3.77 X10*6/uL (4.20-5.50); Red Cell Distribution Width 13.3 % (11.0-16.0); White Blood Count 12.4 X10*3/uL (4.8-10.8)
[2022-02-19 12:40] LABS: Alanine Aminotransferase 14 U/L (0-31); Albumin Level 3.8 g/dL (3.5-5.0); Alkaline Phosphatase 96 U/L (39-117); Anion Gap 16 (12-20); Aspartate Amino Transferase 19 U/L (5-31); Bilirubin Direct < 0.2 mg/dL (0.0-0.5); Bilirubin Total 0.4 mg/dL (0.0-1.0); Blood Urea Nitrogen 68 mg/dL (9-16); Calcium 9.3 mg/dL (8.4-10.2); Carbon Dioxide 21 mmol/L (22-29); Chloride 107 mmol/L (96-108); Estimated Glomerular Filt Rate 18; Glucose Random 173 mg/dL (60-115); Lipase 82 U/L (8-78); Potassium 5.1 mmol/L (3.3-5.1); Sodium 139 mmol/L (135-145); Total Protein 7.8 g/dL (6.5-8.0)
[2022-02-19 12:43] LABS: Troponin-I High Sensitivity 16.5 ng/L (<3.5-17.0)
[2022-02-19 13:32] LABS: Magnesium 2.1 mg/dL (1.6-2.6)
[2022-02-19 13:33] LABS: COVID-19 Test Negative (Negative); IDNOW Serial# 55D5AD1C
--- NOTE | 2022-02-19 13:44 | ECG_ITS ---
Test Reason : chest pain Blood Pressure : / mmHG Vent. Rate : 075 BPM Atrial Rate : 075 BPM P-R Int : 216 ms QRS Dur : 126 ms QT Int : 436 ms P-R-T Axes : -23 096 264 degrees QTc Int : 486 ms Atrial-sensed ventricular-paced rhythm with prolonged AV conduction T inversion inferior and anterolateral leads Abnormal ECG When compared with ECG of 19-FEB-2022 12:04, No significant changes seen Referred By: Ambar Torres Electronically Signed By:STEVE MASON
[2022-02-19 13:54] LABS: Lactic Acid 2.7 mmol/L (0.5-2.0)
--- NOTE | 2022-02-19 14:03 | ED_ITS ---
HPI - General Adult General Chief complaint: Headache Stated complaint: PALACIOS,WEAKNESS,LOW BP 83/50, NO IV Time Seen by Provider: 02/19/22 12:18 Source: patient, EMS and old records reviewed Mode of arrival: EMS Limitations: no limitations History of Present Illness HPI narrative: 61-year-old female with past history of congestive heart failure, diabetes, anemia, anxiety, pacemaker, MRI, arthritis, coronary artery disease, cerebrovascular accident, gastroparesis, GERD, and COPD, presents for feeling weak and dizzy with chest pain that started at 11:15 this morning. Patient was fine prior to that. Her physical therapist came at 11:15, and she took her blood pressure and patient's blood pressure was low patient had a headache and blurry vision as well. Patient feels her chest pain is a heavy pressure, she does not feel weak on 1 side or the other. She is not short of breath. No recent cough, fever, upper respiratory symptoms, denies dysuria, urinary frequency, urinary urgency. Related Data Home Medications Medication Instructions Recorded Confirmed lorazepam 0.5 mg tablet 0.5 mg PO BID PRN 09/14/20 01/21/22 albuterol sulfate 90 mcg/actuation 2 puff INHALATION Q6H PRN 09/16/20 01/21/22 aerosol inhaler allopurinol 100 mg tablet 100 mg PO DAILY 09/16/20 01/21/22 aspirin 81 mg tablet,delayed 81 mg PO DAILY 09/16/20 01/21/22 release fluticasone furoate 100 1 inh INHALATION DAILY PRN 09/16/20 01/21/22 mcg-vilanterol 25 mcg/dose inhalation powder (Breo Ellipta) metoprolol succinate 50 mg 50 mg PO DAILY 09/16/20 01/21/22 tablet,extended release 24 hr (Toprol XL) insulin degludec 100 unit/mL (3 32 unit SUBCUT DAILY ml 11/13/20 01/21/22 mL) subcutaneous pen (Tresiba FlexTouch U-100 insulin) ferrous sulfate 325 mg (65 mg 325 mg PO DAILY 12/22/20 01/21/22 iron) tablet (iron) tamsulosin 0.4 mg capsule 0.4 mg PO DAILY@1700 12/22/20 01/21/22 insulin aspart U-100 100 unit/mL See Rx Instructions .ROUTE .COMPLEX 01/08/21 01/21/22 (3 mL) subcutaneous pen (Novolog Flexpen U-100 Insulin aspart) melatonin 5 mg tablet 5 mg PO BEDTIME PRN 01/08/21 01/21/22 nitroglycerin 0.4 mg sublingual 0.4 mg SUBLINGUAL Q5M PRN 01/08/21 01/21/22 tablet gabapentin 100 mg capsule 200 mg PO TID 03/06/21 01/21/22 cholecalciferol (vitamin D3) 25 25 mcg PO DAILY 03/20/21 01/21/22 mcg (1,000 unit) capsule metoclopramide HCl 5 mg tablet 5 mg PO QID 03/20/21 01/21/22 pen needle, diabetic 31 gauge x #1200 ea 03/20/21 01/10/2204/06 acetaminophen 325 mg tablet 2 tab PO Q4H PRN 01/10/22 01/21/22 ipratropium bromide 21 mcg (0.03 1 spray INTRANASAL USEASDIRECTD 01/10/22 01/21/22 %) nasal spray meloxicam 7.5 mg tablet 1 tab PO DAILY 01/10/22 01/21/22 pantoprazole 40 mg tablet,delayed 1 tab PO DAILY 01/10/22 01/21/22 release trazodone 50 mg tablet 0.5 tab PO BEDTIME PRN 01/10/22 01/21/22 atorvastatin 80 mg tablet 80 mg PO BEDTIME 01/21/22 01/21/22 linagliptin 5 mg tablet (Tradjenta) 5 mg PO DAILY 01/21/22 01/21/22 lisinopril 5 mg tablet 5 mg PO DAILY 01/21/22 01/21/22 loperamide 2 mg capsule 0 mg PO 01/21/22 01/21/22 Previous Rx's Medication Instructions Recorded furosemide 40 mg tablet 40 mg PO DAILY #90 tab 12/06/20 hydrocodone 10 mg-acetaminophen 1 tab PO Q6H PRN #30 tab 01/15/22 325 mg tablet oxycodone 5 mg tablet 5 mg PO Q6H PRN #14 tab 02/04/22 Allergies Allergy/AdvReac Type Severity Reaction Status Date / Time tetracycline [Tetracycline] Allergy Mild HIVES, Verified 12/27/21 12:22 anaphylaxis, anaphylaxis Review of Systems Constitutional: Constitutional: Denies body ache(s), Denies chills, Reports fatigue, Denies fever(s), Reports headache(s), Denies malaise and Reports weakness Eyes: Eyes: Reports blurry vision, Denies diplopia and Denies eye pain ENT: Denies vertigo, Reports dizziness, Denies otalgia, Reports headache(s), Denies mouth pain, Denies post nasal drip, Denies sinus pain, Denies sinus pressure, Denies sore throat and Denies throat swelling Cardiovascular: Cardiovascular: Reports chest pain, Denies syncope, Denies leg edema, Denies lightheadedness, Denies Loss of Consciousness, Denies radiating jaw, neck or arm pain, Denies palpitations and Denies dyspnea Respiratory: Respiratory: Denies chest congestion, Denies cough, Reports pain on inspiration and Denies dyspnea Gastrointestinal: Gastrointestinal: Denies abdominal pain, Denies hematochezia, Denies constipation, Denies diarrhea, Denies nausea and Denies vomiting Genitourinary: Genitourinary: Denies hematuria, Denies dysuria, Denies urinary hesitancy and Denies urinary urgency Musculoskeletal: Musculoskeletal: Reports no additional musculoskeletal complaints Neurologic: Denies Abnormal speech present, Denies confusion, Denies vertigo, Reports dizziness, Denies syncope, Reports headache(s) and Reports weakness Psychiatric: Psychiatric: Denies anxiety, Denies confusion and Denies depression Endocrine: Endocrine: Reports fatigue and Denies palpitations Allergic/Immunologic: Allergic/Immunologic: Denies throat swelling PMFSH Past Medical History Medical History Acute heart failure with preserved ejection fraction Anemia Anxiety Arthritis Cardiac pacemaker in situ Carpal tunnel syndrome CHF (congestive heart failure) Chronic heart failure with preserved ejection fraction (HFpEF) COPD exacerbation Coronary artery disease CVA (cerebral vascular accident) Diabetes Fall Gastritis Gastroparesis Gastroparesis GERD (gastroesophageal reflux disease) Headache HLD (hyperlipidemia) HTN (hypertension) HTN (hypertension) Hypocalcemia Hypoxia IBS (irritable bowel syndrome) Knee pain, left Myocardial infarct Nausea and vomiting Orthostasis Renal failure Suprapatellar effusion of knee T2DM (type 2 diabetes mellitus) UTI (urinary tract infection) Surgical History H/O Achilles tendon repair History of appendectomy History of bladder surgery History of carpal tunnel release History of total hysterectomy with bilateral salpingo-oophorectomy (BSO) Hx of amputation Hx of CABG (~2019) Hx of cholecystectomy Hx of endoscopy Hx of knee surgery Hx of tonsillectomy Family History Family History Father No problems noted. Mother Diabetes Hypercholesteremia Hypertension Stroke Social History Social History Household Members: Family Household Members Other:: 1 Housing: Apartment Do you presently have visiting nurse or other home services: Yes (AM/PM med nurse) Alcohol intake: never Patient Tobacco Use Status: Former Tobacco user Years Smoked: 20 Second Hand Smoke Exposure: No Use of substances other than those prescribed or required for medical reasons: No Advance Directives: Yes Advance Directives on File: Yes Advance Directives Date on File: 01/13/22 Patient : No service: No Current occupational status: disabled Physical Exam ED Vital Signs: Vital Signs - 24 hr 02/19/22 12:08 02/19/22 12:30 02/19/22 13:23 Temperature 98.1 F 98.8 F Pulse Rate 77 80 70 Respiratory Rate 18 17 Blood Pressure 77/38 L 116/57 L 137/66 Pulse Oximetry 97 98 02/19/22 15:04 02/19/22 15:13 02/19/22 15:20 Temperature Pulse Rate 71 71 70 Respiratory Rate 18 18 Blood Pressure 128/61 94/43 L 90/44 L Pulse Oximetry 94 02/19/22 15:34 02/19/22 15:51 02/19/22 17:07 Temperature 98.6 F Pulse Rate 74 74 68 Respiratory Rate 18 Blood Pressure 108/53 L 129/51 L 113/43 L Pulse Oximetry 97 02/19/22 18:34 Temperature 98.3 F Pulse Rate 67 Respiratory Rate 11 L Blood Pressure 120/51 L Pulse Oximetry 96 BMI result Body Mass Index 31.1 Const General: alert, awake and ill appearing chronically; No confusion Nutritional Appearance: obese Orientation/consciousness: patient oriented x3 and No confusion Limitations: no limitations HENMT Head: Yes normal to inspection, Yes No palpable skull fracture present and Yes n ormocephalic Ears: hearing grossly normal bilaterally General nose exam: Normal external nose present Face and sinus: Yes normal facial exam Mouth: Normal oral and palatal mucosa present Throat: Yes posterior oropharynx normal Eyes Visual Santizo: normal visual santizo by confrontation Conjunctivae: conjunctivae normal Pupils: Equal, round and reactive pupils present EOM: EOMs intact bilaterally and No Nystagmus present Neck Neck: Yes normal visual inspection, Yes full ROM, Yes no lymphadenopathy, Yes no meningeal signs, Yes trachea midline and Yes supple Resp Effort & Inspection: normal respiratory effort and able to speak in complete sentences Auscultation: clear to auscultation bilaterally, no crackles, no rales, no rhonchi and no wheezes Cardio Rate: regular rate Rhythm: regular rhythm GI Inspection: Yes Abdominal panniculus present and Yes obesity Palpation (GI): Soft to palpation, not firm, nontender, no guarding and not rigid Percussion: Yes normal to percussion Auscultation: normal bowel sounds General: Yes no CVA tenderness Back/Spine/Pelvis Back: no CVA tenderness Skin General skin exam: no rashes or lesions noted and pallor Neuro General: patient oriented x3, no meningeal signs, No confusion and Unable to assess gait Cranial nerves: Yes CN's II-XII intact bilaterally, Yes Facial sensation i ntact/muscles of mastication intact, Yes Equal, round and reactive pupils present, Yes Bilaterally intact EOM present, Yes Nystagmus not present, Yes Normal facial strength present, Yes Midline tongue present, Yes Ability to bilaterally rotate head present, Yes Ability to bilaterally elevate shoulders present and No Nystagmus present Cognition (Neuro): normal cognition Speech: No Abnormal speech present Gait exam (Neuro): Unable to assess gait Motor exam (neuro): 5/5 motor strength present throughout and Pronator motor function not present Deep tendon reflexes (DTR's): Right patellar reflex intensity grade: 1+ and Left patellar reflex intensity grade: 1+ Coordination: [id number] test normal Pupils: Normal pupillary reactivity/response: bilateral Extrem General: Yes normal to inspection and Yes full ROM Psych Affect: Anxious affect present Course Course Course Narrative: 61-year-old female with past history of congestive heart failure, diabetes, anemia, anxiety, pacemaker, MRI, arthritis, coronary artery disease, cerebrovascular accident, gastroparesis, GERD, and COPD, presents for feeling weak and dizzy with chest pain that started at 11:15 this morning. Patient was fine prior to that. Her physical therapist came at 11:15, and she took her blood pressure and patient's blood pressure was low patient had a headache and blurry vision as well. Patient was initially hypotensive with a systolic in the 70s, but was fluid responsive and blood pressure normalized after fluid bolus. Patient was found to have a lactic acidosis of 2.7, a 2nd bolus was given for sepsis, in addition patient was given nitro for her chest pain. Patient's blood pressure again dropped and again now is normalizing. Sent Dr. Franky taylor test of pt's story and EKG, he said it was not too different from prior ekgs. Second ekg shows T wave changes normalizing. Discussed utility of getting MR to rule out stroke with Dr Dominguez, she stated blurry vision could be due to pt's hypotension, did not think MR was indicated at this time. Head CT was negative, pt has no focal deficits. Reevaluation(s) Reevaluation #1: Ddimer is 515, patient has an elevagted creatinine, needs a V/Q scan Patient has leukocytosis of 12.4. Have not obtained urine yet, I ordered a straight urine catheterization. Patient's initial troponin 16.5, repeat 3 hour troponin 11.7, no delta change. Patient's BNP is only mildly elevated at 149. Head CT and chest x-ray are negative. Awaiting V/Q scan and urine Reevaluation #2: FINDINGS: No segmental perfusion defects are present. There is homogeneous distribution of activity bilaterally. There are no focal anatomic appearing perfusion defects present. NM/NM pul perfusion IMPRESSION: Normal radionuclide lung perfusion scan. Normal urine. Two hour repeat lactic is now 0.8. Discussed with Cardiology admitting for chest pain rue out, her heart score is 6 Dr Vazquez will accept patient Medical Decision Making Lab Data Result diagrams: 02/19/22 12:15 02/19/22 12:15 Labs: Lab Results 02/19/22 02/19/22 02/19/22 Range/Units 12:01 12:15 12:15 WBC 12.4 H (4.8-10.8) X10*3/uL RBC 3.77 L (4.20-5.50) X10*6/uL Hgb 11.6 L (12.0-16.0) g/dl Hct 36.5 L (37.0-47.0) % MCV 96.8 (80.0-98.0) fL MCH 30.8 (27.0-33.0) pg MCHC 31.8 (31.0-35.0) g/dl RDW 13.3 (11.0-16.0) % Plt Count 235 (160-400) X10*3/uL MPV 11.2 (9.4-12.3) fL Immature Gran % (Auto) 0.4 (0.0-0.4) % Neut % (Auto) 72.0 (45-73) % Lymph % (Auto) 19.6 L (20-40) % [place] % (Auto) 6.2 (2-11) % Eos % (Auto) 1.5 (0-4) % Baso % (Auto) 0.3 (0-2) % Lymph # (Auto) 2.4 (1.2-4.9) X10*3/uL [place] # (Auto) 0.8 (0.1-1.2) X10*3/uL Eos # (Auto) 0.2 (0.0-0.4) X10*3/uL Baso # (Auto) 0.0 (0.0-0.2) X10*3/uL Abs Immat Gran (auto) 0.05 H (0.00-0.03) X10*3/uL Absolute Neuts (auto) 8.9 H (2.0-8.3) x10*3/uL Absolute Nucleated RBC 0.000 (0.0-0.012) X10*3/uL Nucleated RBC % (auto) 0.0 (0.0-0.2) /100WBC D-Dimer High Sensitivty NG/ML Sodium 139 (135-145) mmol/L Potassium 5.1 (3.3-5.1) mmol/L Chloride 107 (96-108) mmol/L Carbon Dioxide 21 L (22-29) mmol/L Anion Gap 16 (12-20) BUN 68 H (9-16) mg/dL Creatinine 2.63 H (0.5-1.4) mg/dL Estim Creat Clear Calc 21.0 Estimated GFR 18 POC Glucose 167 H (60-115) mg/dL Random Glucose 173 H (60-115) mg/dL Lactic Acid (0.5-2.0) mmol/L Lactic Acid F/U @ 2Hr (0.5-2.0) mmol/L Calcium 9.3 (8.4-10.2) mg/dL Magnesium 2.1 (1.6-2.6) mg/dL Total Bilirubin 0.4 (0.0-1.0) mg/dL Direct Bilirubin < 0.2 (0.0-0.5) mg/dL AST 19 (5-31) U/L ALT 14 (0-31) U/L Alkaline Phosphatase 96 (39-117) U/L Troponin I High Sens (<3.5-17.0) ng/L B-Natriuretic Peptide (<100) pg/mL Total Protein 7.8 (6.5-8.0) g/dL Albumin 3.8 (3.5-5.0) g/dL Lipase 82 H (8-78) U/L Urine Color Urine Appearance Urine pH (5.0-8.0) Ur Specific [place] (1.005-1.025) Urine Protein (NEG-TRACE) MG/DL Urine Glucose (UA) (NEG) MG/DL Urine Ketones (NEG) MG/DL Urine Blood (NEG) Urine Nitrite (NEG) Ur Leukocyte Esterase (NEG) COVID-19 ([facility]) (Negative) COVID-19 Clin Com 02/19/22 02/19/22 02/19/22 Range/Units 12:15 13:10 13:10 WBC (4.8-10.8) X10*3/uL RBC (4.20-5.50) X10*6/uL Hgb (12.0-16.0) g/dl Hct (37.0-47.0) % MCV (80.0-98.0) fL MCH (27.0-33.0) pg MCHC (31.0-35.0) g/dl RDW (11.0-16.0) % Plt Count (160-400) X10*3/uL MPV (9.4-12.3) fL Immature Gran % (Auto) (0.0-0.4) % Neut % (Auto) (45-73) % Lymph % (Auto) (20-40) % [place] % (Auto) (2-11) % Eos % (Auto) (0-4) % Baso % (Auto) (0-2) % Lymph # (Auto) (1.2-4.9) X10*3/uL [place] # (Auto) (0.1-1.2) X10*3/uL Eos # (Auto) (0.0-0.4) X10*3/uL Baso # (Auto) (0.0-0.2) X10*3/uL Abs Immat Gran (auto) (0.00-0.03) X10*3/uL Absolute Neuts (auto) (2.0-8.3) x10*3/uL Absolute Nucleated RBC (0.0-0.012) X10*3/uL Nucleated RBC % (auto) (0.0-0.2) /100WBC D-Dimer High Sensitivty NG/ML Sodium (135-145) mmol/L Potassium (3.3-5.1) mmol/L Chloride (96-108) mmol/L Carbon Dioxide (22-29) mmol/L Anion Gap (12-20) BUN (9-16) mg/dL Creatinine (0.5-1.4) mg/dL Estim Creat Clear Calc Estimated GFR POC Glucose (60-115) mg/dL Random Glucose (60-115) mg/dL Lactic Acid 2.7 H* (0.5-2.0) mmol/L Lactic Acid F/U @ 2Hr (0.5-2.0) mmol/L Calcium (8.4-10.2) mg/dL Magnesium (1.6-2.6) mg/dL Total Bilirubin (0.0-1.0) mg/dL Direct Bilirubin (0.0-0.5) mg/dL AST (5-31) U/L ALT (0-31) U/L Alkaline Phosphatase (39-117) U/L Troponin I High Sens 16.5 D (<3.5-17.0) ng/L B-Natriuretic Peptide (<100) pg/mL Total Protein (6.5-8.0) g/dL Albumin (3.5-5.0) g/dL Lipase (8-78) U/L Urine Color Urine Appearance Urine pH (5.0-8.0) Ur Specific Crane (1.005-1.025) Urine Protein (NEG-TRACE) MG/DL Urine Glucose (UA) (NEG) MG/DL Urine Ketones (NEG) MG/DL Urine Blood (NEG) Urine Nitrite (NEG) Ur Leukocyte Esterase (NEG) COVID-19 ([facility]I) Negative (Negative) COVID-19 Clin Com See Note 02/19/22 02/19/22 02/19/22 Range/Units 13:50 15:19 15:19 WBC (4.8-10.8) X10*3/uL RBC (4.20-5.50) X10*6/uL Hgb (12.0-16.0) g/dl Hct (37.0-47.0) % MCV (80.0-98.0) fL MCH (27.0-33.0) pg MCHC (31.0-35.0) g/dl RDW (11.0-16.0) % Plt Count (160-400) X10*3/uL MPV (9.4-12.3) fL Immature Gran % (Auto) (0.0-0.4) % Neut % (Auto) (45-73) % Lymph % (Auto) (20-40) % [place] % (Auto) (2-11) % Eos % (Auto) (0-4) % Baso % (Auto) (0-2) % Lymph # (Auto) (1.2-4.9) X10*3/uL [place] # (Auto) (0.1-1.2) X10*3/uL Eos # (Auto) (0.0-0.4) X10*3/uL Baso # (Auto) (0.0-0.2) X10*3/uL Abs Immat Gran (auto) (0.00-0.03) X10*3/uL Absolute Neuts (auto) (2.0-8.3) x10*3/uL Absolute Nucleated RBC (0.0-0.012) X10*3/uL Nucleated RBC % (auto) (0.0-0.2) /100WBC D-Dimer High Sensitivty 515 NG/ML Sodium (135-145) mmol/L Potassium (3.3-5.1) mmol/L Chloride (96-108) mmol/L Carbon Dioxide (22-29) mmol/L Anion Gap (12-20) BUN (9-16) mg/dL Creatinine (0.5-1.4) mg/dL Estim Creat Clear Calc Estimated GFR POC Glucose (60-115) mg/dL Random Glucose (60-115) mg/dL Lactic Acid (0.5-2.0) mmol/L Lactic Acid F/U @ 2Hr 0.8 (0.5-2.0) mmol/L Calcium (8.4-10.2) mg/dL Magnesium (1.6-2.6) mg/dL Total Bilirubin (0.0-1.0) mg/dL Direct Bilirubin (0.0-0.5) mg/dL AST (5-31) U/L ALT (0-31) U/L Alkaline Phosphatase (39-117) U/L Troponin I High Sens 11.7 (<3.5-17.0) ng/L B-Natriuretic Peptide 149 H (<100) pg/mL Total Protein (6.5-8.0) g/dL Albumin (3.5-5.0) g/dL Lipase (8-78) U/L Urine Color Urine Appearance Urine pH (5.0-8.0) Ur Specific [place] (1.005-1.025) Urine Protein (NEG-TRACE) MG/DL Urine Glucose (UA) (NEG) MG/DL Urine Ketones (NEG) MG/DL Urine Blood (NEG) Urine Nitrite (NEG) Ur Leukocyte Esterase (NEG) COVID-19 ([facility]JI) (Negative) COVID-19 Clin Com 02/19/22 Range/Units 17:14 WBC (4.8-10.8) X10*3/uL RBC (4.20-5.50) X10*6/uL Hgb (12.0-16.0) g/dl Hct (37.0-47.0) % MCV (80.0-98.0) fL MCH (27.0-33.0) pg MCHC (31.0-35.0) g/dl RDW (11.0-16.0) % Plt Count (160-400) X10*3/uL MPV (9.4-12.3) fL Immature Gran % (Auto) (0.0-0.4) % Neut % (Auto) (45-73) % Lymph % (Auto) (20-40) % [place] % (Auto) (2-11) % Eos % (Auto) (0-4) % Baso % (Auto) (0-2) % Lymph # (Auto) (1.2-4.9) X10*3/uL [place] # (Auto) (0.1-1.2) X10*3/uL Eos # (Auto) (0.0-0.4) X10*3/uL Baso # (Auto) (0.0-0.2) X10*3/uL Abs Immat Gran (auto) (0.00-0.03) X10*3/uL Absolute Neuts (auto) (2.0-8.3) x10*3/uL Absolute Nucleated RBC (0.0-0.012) X10*3/uL Nucleated RBC % (auto) (0.0-0.2) /100WBC D-Dimer High Sensitivty NG/ML Sodium (135-145) mmol/L Potassium (3.3-5.1) mmol/L Chloride (96-108) mmol/L Carbon Dioxide (22-29) mmol/L Anion Gap (12-20) BUN (9-16) mg/dL Creatinine (0.5-1.4) mg/dL Estim Creat Clear Calc Estimated GFR POC Glucose (60-115) mg/dL Random Glucose (60-115) mg/dL Lactic Acid (0.5-2.0) mmol/L Lactic Acid F/U @ 2Hr (0.5-2.0) mmol/L Calcium (8.4-10.2) mg/dL Magnesium (1.6-2.6) mg/dL Total Bilirubin (0.0-1.0) mg/dL Direct Bilirubin (0.0-0.5) mg/dL AST (5-31) U/L ALT (0-31) U/L Alkaline Phosphatase (39-117) U/L Troponin I High Sens (<3.5-17.0) ng/L B-Natriuretic Peptide (<100) pg/mL Total Protein (6.5-8.0) g/dL Albumin (3.5-5.0) g/dL Lipase (8-78) U/L Urine Color YELLOW Urine Appearance CLEAR Urine pH 5.5 (5.0-8.0) Ur Specific [place] 1.010 (1.005-1.025) Urine Protein TRACE (NEG-TRACE) MG/DL Urine Glucose (UA) NEG (NEG) MG/DL Urine Ketones NEG (NEG) MG/DL Urine Blood NEG (NEG) Urine Nitrite NEG (NEG) Ur Leukocyte Esterase NEG (NEG) COVID-19 ([facility]I) (Negative) COVID-19 Clin Com ECG Data Interpretation: EKG 12:04 Paced rhythm at 82, RI interval 218, QRS 124, QTC 486, no ST elevations but there are T-wave inversions in leads 1, 3, AVF, V3, V4, V5, V6. T-wave inversions not as pronounced on EKG of 02/04/2022 EKG 13:55 paced rhythm at 75 beats per minute, RI interval 216, QRS 126, QTC 46, normal axis, T-wave inversions are resolving, no ST segment changes Scores Heart Score History: -2- highly suspicious ECG: -1- non specific repolarization disturbance Age: -1- >45 - <65 Risk factory: -2- 3 or more risk factors or treated atherosclerosis Troponin: -0- < or = normal limit Score: 6 Risk: 16.6% Discharge Plan Discharge Clinical Impression: Chest pain, Acute hypotension Patient Disposition: Admitted As Inpatient
[2022-02-19 14:09] LABS: D Dimer High Sensitivity 515 NG/ML
[2022-02-19] MEDS: 0.9 % Sodium Chloride 1,000 ML 999 ML IV ×2 (14:10→15:09)
[2022-02-19] MEDS: Aspirin 81 MG TAB.CHEW 324 MG PO (15:06)
[2022-02-19] MEDS: Nitroglycerin 0.4 MG TAB.SUBL SUBLINGUAL (15:07)
[2022-02-19 15:13] LABS: Reflex Lactate? Lactic Acid Added
--- NOTE | 2022-02-19 15:20 | PC.NURSE ---
ptr reports chest pain improved a little after the nitro 05/31 at this time, bp also dropped from 128/61 to 90/44
[2022-02-19 15:35] LABS: ~Lactic Acid-LAB USE ONLY 0.8 mmol/L (0.5-2.0)
[2022-02-19 15:45] LABS: B Type Natriuretic Peptide 149 pg/mL (<100); Troponin-I High Sensitivity 11.7 ng/L (<3.5-17.0)
[2022-02-19] MEDS: Acetaminophen 325 MG TABLET 650 MG PO ×2 (15:49→22:59)
[2022-02-19 18:32] LABS: Appearance Urine CLEAR; Color Urine YELLOW; Glucose Urine UA NEG (NEG); Leukocyte Esterase Urine NEG (NEG); Nitrite Urine NEG (NEG); PH 5.5 (5.0-8.0); Urine Blood NEG (NEG); Urine Ketones NEG (NEG); Urine Protein TRACE MG/DL (NEG-TRACE)
--- NOTE | 2022-02-19 19:16 | PHA.MEDREC ---
Pharmacy Consult ? Medication Reconciliation Pharmacy has completed the medication reconciliation.
--- NOTE | 2022-02-19 21:51 | P.HPHOSP_ITS ---
History of Present Illness Date of Service: 02/19/22 Chief Complaint: Chest pain 61-year-old female with a past medical history of hypertension, hyperlipidemia, diabetes, CAD, congestive heart failure, cardiac pacemaker in-situ, gastroparesis, GERD, gastritis, irritable bowel syndrome, autonomic dysfunction, orthostasis; COPD, chronic kidney disease, history of CVA, carpal tunnel syndrome, anxiety, depression presented to the hospital today with a chief complaint of chest pain. Patient reported that this morning she started to develop chest pain located in the center of the chest, nonradiating, dull achy in nature, constant, no associated nausea vomiting diaphoresis. Denies any lightheadedness dizziness. Mentions that she continues to have small dull ache. Denies any palpitations. Mentioned that she has acid reflux and gastritis or the symptoms arose slightly different. Home reports her chest pain worsens with deep inspiration. Denies any falls or trauma. Review of all other systems is negative except mentioned above ER course: Per ER team patient complained of chest pain with mild dizziness initially; troponins x2 negative; given high risk factors spoke to Cardiology; and decided to admit to the hospital for observation. Patient was given nitroglycerin, morphine, aspirin. ER team also mentioned that patient on presentation noted to have blood pressure with systolic in 70s; improved with normal saline 1 L. [facility] Medical History Acute heart failure with preserved ejection fraction Anemia Anxiety Arthritis Cardiac pacemaker in situ Carpal tunnel syndrome CHF (congestive heart failure) Chronic heart failure with preserved ejection fraction (HFpEF) COPD exacerbation Coronary artery disease CVA (cerebral vascular accident) Diabetes Fall Gastritis Gastroparesis Gastroparesis GERD (gastroesophageal reflux disease) Headache HLD (hyperlipidemia) HTN (hypertension) HTN (hypertension) Hypocalcemia Hypoxia IBS (irritable bowel syndrome) Knee pain, left Myocardial infarct Nausea and vomiting Orthostasis Renal failure Suprapatellar effusion of knee T2DM (type 2 diabetes mellitus) UTI (urinary tract infection) Family History Father No problems noted. Mother Diabetes Hypercholesteremia Hypertension Stroke Surgical History H/O Achilles tendon repair History of appendectomy History of bladder surgery History of carpal tunnel release History of total hysterectomy with bilateral salpingo-oophorectomy (BSO) Hx of amputation Hx of CABG (~2019) Hx of cholecystectomy Hx of endoscopy Hx of knee surgery Hx of tonsillectomy Social History Household Members: Family Household Members Other:: 1 Housing: Apartment Do you presently have visiting nurse or other home services: Yes (AM/PM med nurse) Alcohol intake: never Patient Tobacco Use Status: Former Tobacco user Years Smoked: 20 Second Hand Smoke Exposure: No Use of substances other than those prescribed or required for medical reasons: No Advance Directives: Yes Advance Directives on File: Yes Advance Directives Date on File: 01/13/22 Patient : No service: No Current occupational status: disabled Meds Allergies Allergy/AdvReac Type Severity Reaction Status Date / Time tetracycline [Tetracycline] Allergy Mild HIVES, Verified 12/27/21 12:22 anaphylaxis, anaphylaxis Active Medications: Current Medications Acetaminophen (Acetaminophen 325 Mg Tablet) 650 mg PO Q6H PRN PRN Reason: Pain, Mild (Pain Scale 1-3) Allopurinol (Allopurinol 100 Mg Tablet) 100 mg PO DAILY LAW Aspirin (Aspirin Enteric Coated 81 Mg Tablet.Dr) 81 mg PO DAILY LAW Benzonatate (Benzonatate 100 Mg Capsule) 100 mg PO TID PRN PRN Reason: Cough Dextrose (Dextrose 50 % 25 Gm/50 Ml Vial) 25 gm IVPUSH Q15M PRN; Protocol PRN Reason: per Hypoglycemia Standing Ord. Enoxaparin Sodium (Enoxaparin Sodium 40 Mg/0.4 Ml Syringe) 40 mg SUBCUT Q24H LAW Furosemide (Furosemide 40 Mg Tablet) 40 mg PO DAILY LAW; Protocol Gabapentin (Gabapentin 100 Mg Capsule) 200 mg PO TID LAW Glucose (Glucose Gel 15 Gm Gel..Gram.) 15 gm PO Q15M PRN; Protocol PRN Reason: per Hypoglycemia Standing Ord. Insulin Glargine (Insulin Glargine,Hum.Rec.Anlog 100 Unit/Ml 10 Ml Vial) 20 unit SUBCUT BEDTIME LAW Insulin Human Lispro (Insulin Lispro 100 Unit/Ml 3 Ml Vial) 0 unit SUBCUT QIDACHS LAW; Protocol Lorazepam (Lorazepam 0.5 Mg Tablet) 0.5 mg PO BID PRN PRN Reason: Anxiety Melatonin (Melatonin 3 Mg Tablet) 6 mg PO BEDTIME PRN PRN Reason: Insomnia Metoclopramide HCl (Metoclopramide Hcl 5 Mg Tablet) 5 mg PO TID COUNTS INCLUDE 234 BEDS AT THE [facility] Metoprolol Succinate (Metoprolol Succinate Er 25 Mg Tab.Er.24h) 25 mg PO DAILY COUNTS INCLUDE 234 BEDS AT THE [facility]; Protocol Nitroglycerin (Nitroglycerin 0.4 Mg Tab.Subl) 0.4 mg SUBLINGUAL Q5MX3 PRN PRN Reason: Chest Pain Nitroglycerin (Nitroglycerin 0.4 Mg Tab.Subl) 0.4 mg SUBLINGUAL Q5M PRN PRN Reason: Chest Pain Non-Formulary Medication (Ferrous Sulfate [Iron]) 325 mg PO DAILY COUNTS INCLUDE 234 BEDS AT THE [facility] Non-Formulary Medication (Pantoprazole) 1 tab PO DAILY COUNTS INCLUDE 234 BEDS AT THE [facility] Pharmacy Consult (Consult Rx Perform Med Rec) 1 each MISCELLANE ONCE PRN PRN Reason: Consult order Sodium Chloride (0.9 % Sodium Chloride Flush 3 Ml Syringe) 3 ml IVFLUSH QSHIFT COUNTS INCLUDE 234 BEDS AT THE [facility] Tamsulosin HCl (Tamsulosin Hcl 0.4 Mg Capsule) 0.4 mg PO DAILY@1700 COUNTS INCLUDE 234 BEDS AT THE [facility] Trazodone HCl (Trazodone Hcl 25 Mg Halftab) 25 mg PO BEDTIME PRN PRN Reason: Sleep Home Medications Medication Instructions Recorded Confirmed Last Taken Type lorazepam 0.5 mg tablet 0.5 mg PO BID PRN 09/14/20 02/19/22 Unknown History allopurinol 100 mg tablet 100 mg PO DAILY 09/16/20 02/19/22 02/19/22 History aspirin 81 mg tablet,delayed 81 mg PO DAILY 09/16/20 02/19/22 02/19/22 History release insulin degludec 100 unit/mL (3 32 unit SUBCUT DAILY ml 11/13/20 02/19/22 02/19/22 History mL) subcutaneous pen (Tresiba FlexTouch U-100 insulin) ferrous sulfate 325 mg (65 mg 325 mg PO DAILY 12/22/20 02/19/22 02/19/22 History iron) tablet (iron) tamsulosin 0.4 mg capsule 0.4 mg PO DAILY@1700 12/22/20 02/19/22 02/18/22 History insulin aspart U-100 100 unit/mL See Rx Instructions .ROUTE .COMPLEX 01/08/21 02/19/22 02/19/22 History (3 mL) subcutaneous pen (Novolog Flexpen U-100 Insulin aspart) melatonin 5 mg tablet 5 mg PO BEDTIME PRN 01/08/21 02/19/22 03/05/21 History nitroglycerin 0.4 mg sublingual 0.4 mg SUBLINGUAL Q5M PRN 01/08/21 02/19/22 U nknown History tablet gabapentin 100 mg capsule 200 mg PO TID 03/06/21 02/19/22 02/19/22 History metoclopramide HCl 5 mg tablet 5 mg PO TID 03/20/21 02/19/22 02/19/22 History meloxicam 7.5 mg tablet 1 tab PO DAILY 01/10/22 02/19/22 02/19/22 History pantoprazole 40 mg tablet,delayed 1 tab PO DAILY 01/10/22 02/19/22 02/19/22 History release trazodone 50 mg tablet 0.5 tab PO BEDTIME PRN 01/10/22 02/19/22 02/19/22 History atorvastatin 80 mg tablet 80 mg PO BEDTIME 01/21/22 02/19/22 02/18/22 History linagliptin 5 mg tablet (Tradjenta) 5 mg PO DAILY 01/21/22 02/19/22 02/19/22 History lisinopril 5 mg tablet 5 mg PO DAILY 01/21/22 02/19/22 02/19/22 History metoprolol succinate 25 mg 1 tab PO DAILY 02/19/22 02/19/22 02/19/22 History tablet,extended release 24 hr Physical Exam Vital Signs and Narrative: Vital Signs: Last Vital Signs Temp 98.3 F 02/19/22 18:34 Pulse 75 02/19/22 19:56 Resp 18 02/19/22 19:56 BP 120/51 L 02/19/22 18:34 Pulse Ox 96 02/19/22 18:34 BMI result Body Mass Index 31.1 Gen: Appears be in no acute distress HEENT: NCAT, Moist mucosa. Pulmonary: Vesicular breath sounds, fair air entry; chest pain reproducible CVS: Normal S1-S2 Abdomen: BS+, Soft, Nontender Extremities: Warm well perfused Neuro: Alert and awake. Results Labs CBC and Chem 7: 02/19/22 12:15 02/19/22 12:15 Labs: Laboratory Results - last 24 hr 02/19/22 02/19/22 02/19/22 12:01 12:15 12:15 MCV 96.8 MCH 30.8 MCHC 31.8 RDW 13.3 Plt Count 235 MPV 11.2 Immature Gran % (Auto) 0.4 Neut % (Auto) 72.0 Lymph % (Auto) 19.6 L [place] % (Auto) 6.2 Eos % (Auto) 1.5 Baso % (Auto) 0.3 Lymph # (Auto) 2.4 [place] # (Auto) 0.8 Eos # (Auto) 0.2 Baso # (Auto) 0.0 Abs Immat Gran (auto) 0.05 H Absolute Neuts (auto) 8.9 H Absolute Nucleated RBC 0.000 Nucleated RBC % (auto) 0.0 D-Dimer High Sensitivty Anion Gap 16 Estim Creat Clear Calc 21.0 Estimated GFR 18 POC Glucose 167 H Random Glucose 173 H Lactic Acid Lactic Acid F/U @ 2Hr Calcium 9.3 Magnesium 2.1 Total Bilirubin 0.4 Direct Bilirubin < 0.2 AST 19 ALT 14 Alkaline Phosphatase 96 Troponin I High Sens B-Natriuretic Peptide Total Protein 7.8 Albumin 3.8 Lipase 82 H Urine Color Urine Appearance Urine pH Ur Specific [place] Urine Protein Urine Glucose (UA) Urine Ketones Urine Blood Urine Nitrite Ur Leukocyte Esterase COVID-19 ([facility]I) COVID-19 Clin Com 02/19/22 02/19/22 02/19/22 12:15 13:10 13:10 MCV MCH MCHC RDW Plt Count MPV Immature Gran % (Auto) Neut % (Auto) Lymph % (Auto) [place] % (Auto) Eos % (Auto) Baso % (Auto) Lymph # (Auto) [place] # (Auto) Eos # (Auto) Baso # (Auto) Abs Immat Gran (auto) Absolute Neuts (auto) Absolute Nucleated RBC Nucleated RBC % (auto) D-Dimer High Sensitivty Anion Gap Estim Creat Clear Calc Estimated GFR POC Glucose Random Glucose Lactic Acid 2.7 H* Lactic Acid F/U @ 2Hr Calcium Magnesium Total Bilirubin Direct Bilirubin AST ALT Alkaline Phosphatase Troponin I High Sens 16.5 D B-Natriuretic Peptide Total Protein Albumin Lipase Urine Color Urine Appearance Urine pH Ur Specific [place] Urine Protein Urine Glucose (UA) Urine Ketones Urine Blood Urine Nitrite Ur Leukocyte Esterase COVID-19 ([facility]JI) Negative COVID-19 Clin Com See Note 02/19/22 02/19/22 02/19/22 13:50 15:19 15:19 MCV MCH MCHC RDW Plt Count MPV Immature Gran % (Auto) Neut % (Auto) Lymph % (Auto) [place] % (Auto) Eos % (Auto) Baso % (Auto) Lymph # (Auto) [place] # (Auto) Eos # (Auto) Baso # (Auto) Abs Immat Gran (auto) Absolute Neuts (auto) Absolute Nucleated RBC Nucleated RBC % (auto) D-Dimer High Sensitivty 515 Anion Gap Estim Creat Clear Calc Estimated GFR POC Glucose Random Glucose Lactic Acid Lactic Acid F/U @ 2Hr 0.8 Calcium Magnesium Total Bilirubin Direct Bilirubin AST ALT Alkaline Phosphatase Troponin I High Sens 11.7 B-Natriuretic Peptide 149 H Total Protein Albumin Lipase Urine Color Urine Appearance Urine pH Ur Specific [place] Urine Protein Urine Glucose (UA) Urine Ketones Urine Blood Urine Nitrite Ur Leukocyte Esterase COVID-19 ([facility]JI) COVID-19 [place] Com 02/19/22 17:14 MCV MCH MCHC RDW Plt Count MPV Immature Gran % (Auto) Neut % (Auto) Lymph % (Auto) [place] % (Auto) Eos % (Auto) Baso % (Auto) Lymph # (Auto) [place] # (Auto) Eos # (Auto) Baso # (Auto) Abs Immat Gran (auto) Absolute Neuts (auto) Absolute Nucleated RBC Nucleated RBC % (auto) D-Dimer High Sensitivty Anion Gap Estim Creat Clear Calc Estimated GFR POC Glucose Random Glucose Lactic Acid Lactic Acid F/U @ 2Hr Calcium Magnesium Total Bilirubin Direct Bilirubin AST ALT Alkaline Phosphatase Troponin I High Sens B-Natriuretic Peptide Total Protein Albumin Lipase Urine Color YELLOW Urine Appearance CLEAR Urine pH 5.5 Ur Specific [place] 1.010 Urine Protein TRACE Urine Glucose (UA) NEG Urine Ketones NEG Urine Blood NEG Urine Nitrite NEG Ur Leukocyte Esterase NEG COVID-19 ([facility]JI) COVID-19 [facility] Com Imaging Radiologist's Impressions: Impressions Chest X-Ray 02/19/22 12:50 IMPRESSION: Unremarkable chest exam. No acute intracranial process seen. Head CT 02/19/22 12:50 IMPRESSION: Unremarkable chest exam. No acute intracranial process seen. Pulmonary Perfusion Imaging 02/19/22 16:30 IMPRESSION: Normal radionuclide lung perfusion scan. Assessment and Plan (1) Chest pain: Status: Acute (2) Acute hypotension: Status: Acute Plan 61-year-old female with a past medical history of hypertension, hyperlipidemia, diabetes, CAD, congestive heart failure, cardiac pacemaker in-situ, gastroparesis, GERD, gastritis, irritable bowel syndrome, autonomic dysfunction, orthostasis; COPD, chronic kidney disease, history of CVA, carpal tunnel syndrome, anxiety, depression presented to the hospital today with a chief complaint of chest pain. Chest pain: Atypical in nature. Troponins x2 negative. EKG showed no new changes compared to the old EKGs. Monitor on telemetry. Nitroglycerin p.r.n.. Patient already received aspirin and morphine in the ER. Cardiology Consult was notified. Hypotension: Patient's systolic blood pressure was in 70s on presentation. Improved with 1 L of normal saline. Currently systolic pressure is 120s. Patient has known history of or node dysfunction/orthostatics. Hold home lisinopril and Lasix for now. Will await further input from Cardiology. History of CHF: Currently stable. Home Lasix on hold for now. History of gastroparesis: Continue home Reglan. History of diabetes: Hold home insulin regimen. Will keep the patient on Lantus 20 units and insulin sliding scale. Monitor fingerstick glucose. For all other chronic conditions, home medications continued DVT prophylaxis: Lovenox Code status: Full code Quality Stroke Does the patient have a stroke diagnosis?: No VTE Prior VTE?: No VTE Risk Level:: Medical - moderate - high VTE Device Contraindication: Treatment Not Indicated VTE Drug Contraindication: N/A - Med Ordered
--- NOTE | 2022-02-19 22:31 | MHC.CM.PN ---
CM met with patient admitted to [facility] with bed assignment pending. CHAN 02/19. HCP on file. HCP/grandchild June Malik ([phone]). [employer] insurance. Has services for medication management days and evenings with [facility]. Just started with home PT. Does not know what agency. Does not remember PCP name. CM will need to verify services and PCP with [facility] in the morning. Vacc/boosted with Moderna. D/C plan: Home with existing services. Pt will need transportation home.
[2022-02-19] MEDS: Melatonin 3 MG TABLET 6 MG PO (22:59)
[2022-02-19] MEDS: Heparin Sodium,Porcine 5,000 UNIT/ML VIAL 5000 UNIT SUBCUT (22:59)
[2022-02-19 23:00] LABS: Glucose, Whole Blood 135 mg/dL (60-115)
[2022-02-20] MEDS: 0.9 % Sodium Chloride Flush 3 ML SYRINGE IVFLUSH ×2 (00:22→14:49)
[2022-02-20 04:23] VITALS: BP 140/74; PULSE 67; RESP 15; TEMP 36.4; O2SAT 98
[2022-02-20] MEDS: Heparin Sodium,Porcine 5,000 UNIT/ML VIAL 5000 UNIT SUBCUT (06:14)
[2022-02-20] MEDS: Omeprazole 20 MG CAPSULE.DR PO (06:14)
[2022-02-20 06:24] LABS: MANUAL DIFF FLAG NO
[2022-02-20 06:41] LABS: Anion Gap 15 (12-20); Blood Urea Nitrogen 63 mg/dL (9-16); Carbon Dioxide 20 mmol/L (22-29); Chloride 112 mmol/L (96-108); Creatinine Clr Calc Pharmacy 24.6; Estimated Glomerular Filt Rate 22; Glucose Random 116 mg/dL (60-115); Potassium 5.1 mmol/L (3.3-5.1); Sodium 142 mmol/L (135-145)
[2022-02-20 06:43] LABS: Basophils Percent Auto 0.4 % (0-2); Eosinophils Absolute Auto 0.2 X10*3/uL (0.0-0.4); Eosinophils Percent Auto 2.1 % (0-4); Hemoglobin 11.4 g/dl (12.0-16.0); Imm Gran Abs Auto 0.03 X10*3/uL (0.00-0.03); Imm Gran Pct Auto 0.4 % (0.0-0.4); Lymphocytes Absolute Auto 1.7 X10*3/uL (1.2-4.9); Lymphocytes Percent Auto 20.7 % (20-40); Mean Corpuscular HGB Conc 32.6 g/dl (31.0-35.0); Mean Corpuscular Hemoglobin 31.8 pg (27.0-33.0); Mean Corpuscular Volume 97.5 fL (80.0-98.0); Mean Platelet Volume 11.3 fL (9.4-12.3); Monocytes Absolute Auto 0.6 X10*3/uL (0.1-1.2); Monocytes Percent Auto 6.8 % (2-11); Neutrophils Absolute Auto 5.8 x10*3/uL (2.0-8.3); Neutrophils Percent Auto 69.6 % (45-73); Platelet Count 168 X10*3/uL (160-400); Red Blood Count 3.59 X10*6/uL (4.20-5.50); Red Cell Distribution Width 13.8 % (11.0-16.0); White Blood Count 8.3 X10*3/uL (4.8-10.8)
[2022-02-20 07:10] LABS: Glucose, Whole Blood 107 mg/dL (60-115)
[2022-02-20 07:36] VITALS: BP 135/69; PULSE 67; RESP 10
[2022-02-20 09:55] LABS: Troponin-I High Sensitivity 12.6 ng/L (<3.5-17.0)
[2022-02-20] MEDS: Metoclopramide HCl 5 MG TABLET PO ×2 (09:55→14:48)
[2022-02-20] MEDS: Aspirin Enteric Coated 81 MG TABLET.DR PO (09:55)
[2022-02-20] MEDS: Metoprolol Succinate ER 25 MG TAB.ER.24H PO (09:55)
[2022-02-20] MEDS: Ferrous Sulfate 324 MG TABLET.DR PO (09:55)
[2022-02-20] MEDS: allopurinoL 100 MG TABLET PO (09:55)
[2022-02-20] MEDS: Gabapentin 100 MG CAPSULE 200 MG PO ×2 (09:55→14:48)
[2022-02-20 11:09] VITALS: BP 165/70; PULSE 65; RESP 14
--- NOTE | 2022-02-20 12:08 | PM.CNCAR ---
History of Present Illness History of Present Illness Date of Service: 02/20/22 Chief complaint: Chest Pain Narrative: This is a cardiology consultation regarding chest pain as well as history of coronary artery disease. Somewhat of a vague history with numerous complaints. Apparently initially she was rather having low blood pressure and there is a concern that the blood pressure was into the 70s. Subsequently, she had mentioned about chest pain as well. Patient however states that she has been having chest pain for as long as she can remember. These are recurrent episodes that can happen randomly. No specific patterns and can happen with or without exertion. She also apparently had some falls in the last few days. She believes she had 2 falls or so. Then she felt short of breath at home. After she came to the hospital per RN, she has had a few diarrheal episodes. Overall, we have been asked to see her to check any cardiac issues that are ongoing at this time. She sees Dr. Zelaya from our office. Reviewed his last note. It seems that his autonomic dysfunction related to diabetes. That could certainly cause blood pressure swings. She also carries a diagnosis of chronic diastolic heart failure. She has a pacemaker in place. Otherwise, she has a history of coronary disease and underwent coronary artery bypass surgery in the past. Review of Systems Review of Systems: Yes all other systems are reviewed and are negative Constitutional: Constitutional: Reports as per HPI and Reports weakness Eyes: Eyes: Reports as per HPI ENT: Reports as per HPI Cardiovascular: Cardiovascular: Reports as per HPI, Denies acrocyanosis, Denies cool extremities, Reports chest pain, Denies leg edema, Denies lightheadedness, Denies palpitations and Reports dyspnea Respiratory: Respiratory: Reports as per HPI, Reports no additional respiratory complaints and Reports dyspnea Gastrointestinal: Gastrointestinal: Reports as per HPI and Reports no additional gastrointestinal complaints Genitourinary: Genitourinary: Reports as per HPI Musculoskeletal: Musculoskeletal: Reports no additional musculoskeletal complaints and Reports as per HPI Integumentary/Breasts: Skin/Breast: Reports system reviewed and no additional complaints, except as docu Neurologic: Reports system reviewed and no additional complaints, except as documented, Reports as per HPI and Reports weakness Psychiatric: Psychiatric: Reports no additional psychiatric complaints and Reports as per HPI Endocrine: Endocrine: Reports no additional endocrine complaints, Reports as per HPI and Denies palpitations Hematologic/Lymphatic: Hematologic/Lymphatic: Reports no additional hematologic/lymphatic complaints and Reports as per HPI Allergic/Immunologic: Allergic/Immunologic: Reports no additional allergic/immunologic complaints and Reports as per HPI [facility] Past Medical History Medical History Acute heart failure with preserved ejection fraction Anemia Anxiety Arthritis Cardiac pacemaker in situ Carpal tunnel syndrome CHF (congestive heart failure) Chronic heart failure with preserved ejection fraction (HFpEF) COPD exacerbation Coronary artery disease CVA (cerebral vascular accident) Diabetes Fall Gastritis Gastroparesis Gastroparesis GERD (gastroesophageal reflux disease) Headache HLD (hyperlipidemia) HTN (hypertension) HTN (hypertension) Hypocalcemia Hypoxia IBS (irritable bowel syndrome) Knee pain, left Myocardial infarct Nausea and vomiting Orthostasis Renal failure Suprapatellar effusion of knee T2DM (type 2 diabetes mellitus) UTI (urinary tract infection) Family History Family History Father No problems noted. Mother Diabetes Hypercholesteremia Hypertension Stroke Surgical History Surgical History H/O Achilles tendon repair History of appendectomy History of bladder surgery History of carpal tunnel release History of total hysterectomy with bilateral salpingo-oophorectomy (BSO) Hx of amputation Hx of CABG (~2019) Hx of cholecystectomy Hx of endoscopy Hx of knee surgery Hx of tonsillectomy Social History Social History Household Members: Family Household Members Other:: 1 Housing: Apartment Do you presently have visiting nurse or other home services: Yes (AM/PM med nurse) Alcohol intake: never Patient Tobacco Use Status: Former Tobacco user Years Smoked: 20 Second Hand Smoke Exposure: No Use of substances other than those prescribed or required for medical reasons: No Advance Directives: Yes Advance Directives on File: Yes Advance Directives Date on File: 01/13/22 Patient : No service: No Current occupational status: disabled Meds Allergies Allergy/AdvReac Type Severity Reaction Status Date / Time tetracycline [Tetracycline] Allergy Mild HIVES, Verified 12/27/21 12:22 anaphylaxis, anaphylaxis Active Medications: Current Medications Acetaminophen (Acetaminophen 325 Mg Tablet) 650 mg PO Q6H PRN PRN Reason: Pain, Mild (Pain Scale 1-3) Last Admin: 02/19/22 22:59 Dose: 650 mg Documented by: Allopurinol (Allopurinol 100 Mg Tablet) 100 mg PO DAILY [facility] Last Admin: 02/20/22 09:55 Dose: 100 mg Documented by: Aspirin (Aspirin Enteric Coated 81 Mg Tablet.) 81 mg PO DAILY [facility] Last Admin: 02/20/22 09:55 Dose: 81 mg Documented by: Benzonatate (Benzonatate 100 Mg Capsule) 100 mg PO TID PRN PRN Reason: Cough Dextrose (Dextrose 50 % 25 Gm/50 Ml Vial) 25 gm IVPUSH Q15M PRN; Protocol PRN Reason: per Hypoglycemia Standing Ord. Ferrous Sulfate (Ferrous Sulfate 324 Mg Tablet.) 324 mg PO DAILY [facility] Last Admin: 02/20/22 09:55 Dose: 324 mg Documented by: Furosemide (Furosemide 40 Mg Tablet) 40 mg PO DAILY [facility]; Protocol Gabapentin (Gabapentin 100 Mg Capsule) 200 mg PO TID [facility] Last Admin: 02/20/22 09:55 Dose: 200 mg Documented by: Glucose (Glucose Gel 15 Gm Gel..Gram.) 15 gm PO Q15M PRN; Protocol PRN Reason: per Hypoglycemia Standing Ord. Heparin Sodium (Porcine) (Heparin Sodium,Porcine 5,000 Unit/Ml Vial) 5,000 unit SUBCUT Q8H [facility] Last Admin: 02/20/22 06:14 Dose: 5,000 unit Documented by: Insulin Glargine (Insulin Glargine,Hum.Rec.Anlog 100 Unit/Ml 10 Ml Vial) 20 unit SUBCUT BEDTIME [facility] Insulin Human Lispro (Insulin Lispro 100 Unit/Ml 3 Ml Vial) 0 unit SUBCUT QIDACHS [facility]; Protocol Last Admin: 02/20/22 07:32 Dose: Not Given Documented by: Lorazepam (Lorazepam 0.5 Mg Tablet) 0.5 mg PO BID PRN PRN Reason: Anxiety Melatonin (Melatonin 3 Mg Tablet) 6 mg PO BEDTIME PRN PRN Reason: Insomnia Last Admin: 02/19/22 22:59 Dose: 6 mg Documented by: Metoclopramide HCl (Metoclopramide Hcl 5 Mg Tablet) 5 mg PO TID [facility] Last Admin: 02/20/22 09:55 Dose: 5 mg Documented by: Metoprolol Succinate (Metoprolol Succinate Er 25 Mg Tab.Er.24h) 25 mg PO DAILY [facility]; Protocol Last Admin: 02/20/22 09:55 Dose: 25 mg Documented by: Nitroglycerin (Nitroglycerin 0.4 Mg Tab.Subl) 0.4 mg SUBLINGUAL Q5MX3 PRN PRN Reason: Chest Pain Nitroglycerin (Nitroglycerin 0.4 Mg Tab.Subl) 0.4 mg SUBLINGUAL Q5M PRN PRN Reason: Chest Pain Omeprazole (Omeprazole 20 Mg Capsule.Dr) 20 mg PO DAILY@0630 [facility] Last Admin: 02/20/22 06:14 Dose: 20 mg Documented by: Pharmacy Consult (Consult Rx Perform Med Rec) 1 each MISCELLANE ONCE PRN PRN Reason: Consult order Sodium Chloride (0.9 % Sodium Chloride Flush 3 Ml Syringe) 3 ml IVFLUSH QSHIFT [facility] Last Admin: 02/20/22 09:42 Dose: Not Given Documented by: Tamsulosin HCl (Tamsulosin Hcl 0.4 Mg Capsule) 0.4 mg PO DAILY@1700 [facility] Trazodone HCl (Trazodone Hcl 25 Mg Halftab) 25 mg PO BEDTIME PRN PRN Reason: Sleep Home Medications Medication Instructions Recorded Confirmed Last Taken Type lorazepam 0.5 mg tablet 0.5 mg PO BID PRN 09/14/20 02/19/22 Unknown History allopurinol 100 mg tablet 100 mg PO DAILY 09/16/20 02/19/22 02/19/22 History aspirin 81 mg tablet,delayed 81 mg PO DAILY 09/16/20 02/19/22 02/19/22 History release insulin degludec 100 unit/mL (3 32 unit SUBCUT DAILY ml 11/13/20 02/19/22 02/19/22 History mL) subcutaneous pen (Tresiba FlexTouch U-100 insulin) ferrous sulfate 325 mg (65 mg 325 mg PO DAILY 12/22/20 02/19/22 02/19/22 History iron) tablet (iron) tamsulosin 0.4 mg capsule 0.4 mg PO DAILY@1700 12/22/20 02/19/22 02/18/22 History insulin aspart U-100 100 unit/mL See Rx Instructions .ROUTE .COMPLEX 01/08/21 02/19/22 02/19/22 History (3 mL) subcutaneous pen (Novolog Flexpen U-100 Insulin aspart) melatonin 5 mg tablet 5 mg PO BEDTIME PRN 01/08/21 02/19/22 03/05/21 History nitroglycerin 0.4 mg sublingual 0.4 mg SUBLINGUAL Q5M PRN 01/08/21 02/19/22 Unknown History tablet gabapentin 100 mg capsule 200 mg PO TID 03/06/21 02/19/22 02/19/22 History metoclopramide HCl 5 mg tablet 5 mg PO TID 03/20/21 02/19/22 02/19/22 History meloxicam 7.5 mg tablet 1 tab PO DAILY 01/10/22 02/19/22 02/19/22 History pantoprazole 40 mg tablet,delayed 1 tab PO DAILY 01/10/22 02/19/22 02/19/22 History release trazodone 50 mg tablet 0.5 tab PO BEDTIME PRN 01/10/22 02/19/22 02/19/22 History atorvastatin 80 mg tablet 80 mg PO BEDTIME 01/21/22 02/19/22 02/18/22 History linagliptin 5 mg tablet (Tradjenta) 5 mg PO DAILY 01/21/22 02/19/22 02/19/22 History lisinopril 5 mg tablet 5 mg PO DAILY 01/21/22 02/19/22 02/19/22 History metoprolol succinate 25 mg 1 tab PO DAILY 02/19/22 02/19/22 02/19/22 History tablet,extended release 24 hr Physical Exam Vital Signs: Vital Signs: Last Vital Signs Temp 97.5 F 02/20/22 04:23 Pulse 65 02/20/22 11:09 Resp 14 02/20/22 11:09 BP 165/70 H 02/20/22 11:09 Pulse Ox 98 02/20/22 04:23 BMI result Body Mass Index 31.1 Const: General: comfortable HEENT: Other: Unremarkable Head: Yes normal to inspection Neck: Neck: Yes normal visual inspection Chest: Chest palpation & inspection: normal inspection of the chest Resp: Auscultation: clear to auscultation bilaterally Cardio: Palpation: normal PMI Heart sounds: S1 normal heart sound present, S2 normal heart sound present, no gallops, no murmurs and no rubs GI: Palpation (GI): Soft to palpation Back/Spine/Pelvis: Other: unremarkable Skin: General skin exam: no rashes or lesions noted Neuro: Cognition (Neuro): normal cognition Extrem: General: Yes normal to inspection Psych: Mental Status: mental status grossly normal Objective Labs and Meds Result diagrams: 02/20/22 06:21 02/20/22 06:21 Lab results: Laboratory Results - last 24 hr 02/19/22 02/19/22 02/19/22 12:01 12:15 12:15 WBC 12.4 H RBC 3.77 L Hgb 11.6 L Hct 36.5 L MCV 96.8 MCH 30.8 MCHC 31.8 RDW 13.3 Plt Count 235 MPV 11.2 Immature Gran % (Auto) 0.4 Neut % (Auto) 72.0 Lymph % (Auto) 19.6 L [place] % (Auto) 6.2 Eos % (Auto) 1.5 Baso % (Auto) 0.3 Lymph # (Auto) 2.4 [place] # (Auto) 0.8 Eos # (Auto) 0.2 Baso # (Auto) 0.0 Abs Immat Gran (auto) 0.05 H Absolute Neuts (auto) 8.9 H Absolute Nucleated RBC 0.000 Nucleated RBC % (auto) 0.0 D-Dimer High Sensitivty Sodium 139 Potassium 5.1 Chloride 107 Carbon Dioxide 21 L Anion Gap 16 BUN 68 H Creatinine 2.63 H Estim Creat Clear Calc 21.0 Estimated GFR 18 POC Glucose 167 H Random Glucose 173 H Lactic Acid Lactic Acid F/U @ 2Hr Calcium 9.3 Magnesium 2.1 Total Bilirubin 0.4 Direct Bilirubin < 0.2 AST 19 ALT 14 Alkaline Phosphatase 96 Troponin I High Sens B-Natriuretic Peptide Total Protein 7.8 Albumin 3.8 Lipase 82 H Urine Color Urine Appearance Urine pH Ur Specific [place] Urine Protein Urine Glucose (UA) Urine Ketones Urine Blood Urine Nitrite Ur Leukocyte Esterase COVID-19 ([facility]) COVID-19 Clin Com 02/19/22 02/19/22 02/19/22 12:15 13:10 13:10 WBC RBC Hgb Hct MCV MCH MCHC RDW Plt Count MPV Immature Gran % (Auto) Neut % (Auto) Lymph % (Auto) [place] % (Auto) Eos % (Auto) Baso % (Auto) Lymph # (Auto) [place] # (Auto) Eos # (Auto) Baso # (Auto) Abs Immat Gran (auto) Absolute Neuts (auto) Absolute Nucleated RBC Nucleated RBC % (auto) D-Dimer High Sensitivty Sodium Potassium Chloride Carbon Dioxide Anion Gap BUN Creatinine Estim Creat Clear Calc Estimated GFR POC Glucose Random Glucose Lactic Acid 2.7 H* Lactic Acid F/U @ 2Hr Calcium Magnesium Total Bilirubin Direct Bilirubin AST ALT Alkaline Phosphatase Troponin I High Sens 16.5 D B-Natriuretic Peptide Total Protein Albumin Lipase Urine Color Urine Appearance Urine pH Ur Specific [place] Urine Protein Urine Glucose (UA) Urine Ketones Urine Blood Urine Nitrite Ur Leukocyte Esterase COVID-19 ([facility]I) Negative COVID-19 Clin Com See Note 02/19/22 02/19/22 02/19/22 13:50 15:19 15:19 WBC RBC Hgb Hct MCV MCH MCHC RDW Plt Count MPV Immature Gran % (Auto) Neut % (Auto) Lymph % (Auto) [place] % (Auto) Eos % (Auto) Baso % (Auto) Lymph # (Auto) [place] # (Auto) Eos # (Auto) Baso # (Auto) Abs Immat Gran (auto) Absolute Neuts (auto) Absolute Nucleated RBC Nucleated RBC % (auto) D-Dimer High Sensitivty 515 Sodium Potassium Chloride Carbon Dioxide Anion Gap BUN Creatinine Estim Creat Clear Calc Estimated GFR POC Glucose Random Glucose Lactic Acid Lactic Acid F/U @ 2Hr 0.8 Calcium Magnesium Total Bilirubin Direct Bilirubin AST ALT Alkaline Phosphatase Troponin I High Sens 11.7 B-Natriuretic Peptide 149 H Total Protein Albumin Lipase Urine Color Urine Appearance Urine pH Ur Specific [place] Urine Protein Urine Glucose (UA) Urine Ketones Urine Blood Urine Nitrite Ur Leukocyte Esterase COVID-19 ([facility]I) COVID-19 [employer] Com 02/19/22 02/19/22 02/20/22 17:14 22:55 06:21 WBC 8.3 RBC 3.59 L Hgb 11.4 L Hct 35.0 L MCV 97.5 MCH 31.8 MCHC 32.6 RDW 13.8 Plt Count 168 D MPV 11.3 Immature Gran % (Auto) 0.4 Neut % (Auto) 69.6 Lymph % (Auto) 20.7 [place] % (Auto) 6.8 Eos % (Auto) 2.1 Baso % (Auto) 0.4 Lymph # (Auto) 1.7 [place] # (Auto) 0.6 Eos # (Auto) 0.2 Baso # (Auto) 0.0 Abs Immat Gran (auto) 0.03 Absolute Neuts (auto) 5.8 Absolute Nucleated RBC 0.000 Nucleated RBC % (auto) 0.0 D-Dimer High Sensitivty Sodium Potassium Chloride Carbon Dioxide Anion Gap BUN Creatinine Estim Creat Clear Calc Estimated GFR POC Glucose 135 H Random Glucose Lactic Acid Lactic Acid F/U @ 2Hr Calcium Magnesium Total Bilirubin Direct Bilirubin AST ALT Alkaline Phosphatase Troponin I High Sens B-Natriuretic Peptide Total Protein Albumin Lipase Urine Color YELLOW Urine Appearance CLEAR Urine pH 5.5 Ur Specific [place] 1.010 Urine Protein TRACE Urine Glucose (UA) NEG Urine Ketones NEG Urine Blood NEG Urine Nitrite NEG Ur Leukocyte Esterase NEG COVID-19 ([facility]) COVID-19 [facility] [facility] 02/20/22 02/20/22 02/20/22 06:21 07:05 09:27 WBC RBC Hgb Hct MCV MCH MCHC RDW Plt Count MPV Immature Gran % (Auto) Neut % (Auto) Lymph % (Auto) [place] % (Auto) Eos % (Auto) Baso % (Auto) Lymph # (Auto) [place] # (Auto) Eos # (Auto) Baso # (Auto) Abs Immat Gran (auto) Absolute Neuts (auto) Absolute Nucleated RBC Nucleated RBC % (auto) D-Dimer High Sensitivty Sodium 142 Potassium 5.1 Chloride 112 H Carbon Dioxide 20 L Anion Gap 15 BUN 63 H Creatinine 2.25 H Estim Creat Clear Calc 24.6 Estimated GFR 22 POC Glucose 107 Random Glucose 116 H Lactic Acid Lactic Acid F/U @ 2Hr Calcium 9.0 Magnesium Total Bilirubin Direct Bilirubin AST ALT Alkaline Phosphatase Troponin I High Sens 12.6 B-Natriuretic Peptide Total Protein Albumin Lipase Urine Color Urine Appearance Urine pH Ur Specific [place] Urine Protein Urine Glucose (UA) Urine Ketones Urine Blood Urine Nitrite Ur Leukocyte Esterase COVID-19 ([facility]) COVID-19 Clin Com ECG Interpretation: EKG with sinus rhythm and 75/Min; inferior as well as anterolateral T inversions. Possible LVH. T inversions slightly more prominent than before. Imaging Radiologist's impression: Impressions Chest X-Ray 02/19/22 12:50 IMPRESSION: Unremarkable chest exam. No acute intracranial process seen. Head CT 02/19/22 12:50 IMPRESSION: Unremarkable chest exam. No acute intracranial process seen. Pulmonary Perfusion Imaging 02/19/22 16:30 IMPRESSION: Normal radionuclide lung perfusion scan. Assessment and Plan (1) Acute hypotension: Status: Acute (2) Autonomic dysfunction: Status: Acute (3) Chest pain: Qualifiers: Chest pain type: precordial pain Qualified Code(s): R07.2 - Precordial pain Status: Acute (4) Atherosclerotic cardiovascular disease: Status: Acute Plan Multitude of symptoms and signs including low blood pressure, chest pain, shortness of breath, falls, diarrhea among others. Background of autonomic dysfunction diabetes as well as coronary artery bypass surgery. In the EKG, T inversion slightly more prominent than before but troponins themself are unremarkable. It will be very difficult to address her blood pressure as she seems to have wide swings going from very low to very high. Very recently blood pressures have been as much as 200 systolic but this admission she was in the 70s per documentation. Hence there is no easy way of managing this. Most likely will have to accept a higher than usual readings as normal for her. With regard to the chest pain itself, could be from low blood pressure and reduced coronary perfusion but there is no evidence of ACS at this time. Overall, conservative care only. Procedures Date of Service Date of Service: 02/20/22
[2022-02-20 13:02] LABS: Glucose, Whole Blood 192 mg/dL (60-115)
--- NOTE | 2022-02-20 13:04 | P.DS_ITS ---
DS: Providers Provider Date of Service: 02/20/22 Date of admission: 02/19/22 21:42 Primary care physician: Unknown Physician Consults: 02/19/22 21:42 Consult to Cardiology Routine Consulting Provider: Brian Wilkins Reason for consultation: chest pain DS: Diagnosis Discharge Diagnosis (1) Acute hypotension: Status: Acute (2) Autonomic dysfunction: Status: Acute (3) Chest pain: Status: Acute (4) Atherosclerotic cardiovascular disease: Status: Acute DS: Summary Hospital Course Hospital Course: form initila hpi: Chief Complaint: Chest pain 61-year-old female with a past medical history of hypertension, hyperlipidemia, diabetes, CAD, congestive heart failure, cardiac pacemaker in-situ, gastroparesis, GERD, gastritis, irritable bowel syndrome, autonomic dysfunction, orthostasis; COPD, chronic kidney disease, history of CVA, carpal tunnel syndrome, anxiety, depression presented to the hospital today with a chief complaint of chest pain.? Patient reported that this morning she started to develop chest pain located in the center of the chest, nonradiating, dull achy in nature, constant, no associated nausea vomiting diaphoresis.? Denies any lightheadedness dizziness.? Mentions that she continues to have small dull ache.? Denies any palpitations.? Mentioned that she has acid reflux and gastritis or the symptoms arose slightly different.? Home reports her chest pain worsens with deep inspiration.? Denies any falls or trauma.? Review of all other systems is negative except mentioned above ER course: Per ER team patient complained of chest pain with mild dizziness initially; troponins x2 negative; given high risk factors spoke to Cardiology; and decided to admit to the hospital for observation.? Patient was given nitroglycerin, morphine, aspirin. ER team also mentioned that patient on presentation noted to have blood pressure with systolic in 70s; improved with normal saline 1 L. hospital course: Patient was observed for chest pain, troponins were negative, she was seen by Cardiology felt this was unlikely ACS. Most likely symptoms were due to orthostatic hypotension in the setting of diabetes with autonomic dysfunction. Plan is to tolerate higher than ideal blood pressures and will move lisinopril to bedtime. For chronic diastolic CHF she was continued on Lasix, for gastroparesis continue on Reglan, for diabetes She was continued on insulin. For CKD stage 4 creatinine remains stable, for history of CVA she was continue asp irin statin. Time Spent with Patient Time attestation: Total time spent providing and/or coordinating discharge services: Discharge coordination time: Greater than 30 minutes Quality: Safe Use of Opioids Does Pt have an Active Cancer Diagnosis on the Problem List?: No Quality: Stroke Does the patient have a stroke diagnosis?: No Physical Exam Vital Signs: Vital Signs: Last Vital Signs Temp 97.5 F 02/20/22 04:23 Pulse 65 02/20/22 11:09 Resp 14 02/20/22 11:09 BP 165/70 H 02/20/22 11:09 Pulse Ox 98 02/20/22 04:23 BMI result Body Mass Index 31.1 General: AO X 3, no acute distress Resp: CTA bilateral, no accessory muscles used CVS: S1,S2,RRR GI: soft, non tender, non distended Neuro: motor grossly intact, alert Psych: appropriate affect, appropriate insight DS: Data Data Completed and Pending Completed studies during hospitalization [Text1]: Procedures Insertion of Infusion Device into Right Basilic Vein, Percutaneous Approach (10/31/20) Transfusion of Nonautologous Red Blood Cells into Peripheral Vein, Percutaneous Approach (10/31/20) Labs on day of discharge: Laboratory Results - last 24 hr 02/19/22 02/19/22 02/19/22 12:15 13:10 13:10 WBC RBC Hgb Hct MCV MCH MCHC RDW Plt Count MPV Immature Gran % (Auto) Neut % (Auto) Lymph % (Auto) [place] % (Auto) Eos % (Auto) Baso % (Auto) Lymph # (Auto) [place] # (Auto) Eos # (Auto) Baso # (Auto) Abs Immat Gran (auto) Absolute Neuts (auto) Absolute Nucleated RBC Nucleated RBC % (auto) D-Dimer High Sensitivty Sodium Potassium Chloride Carbon Dioxide Anion Gap BUN Creatinine Estim Creat Clear Calc Estimated GFR POC Glucose Random Glucose Lactic Acid 2.7 H* Lactic Acid F/U @ 2Hr Calcium Magnesium 2.1 Troponin I High Sens B-Natriuretic Peptide Urine Color Urine Appearance Urine pH Ur Specific [place] Urine Protein Urine Glucose (UA) Urine Ketones Urine Blood Urine Nitrite Ur Leukocyte Esterase COVID-19 (KENJI) Negative COVID-19 Clin Com See Note 02/19/22 02/19/22 02/19/22 13:50 15:19 15:19 WBC RBC Hgb Hct MCV MCH MCHC RDW Plt Count MPV Immature Gran % (Auto) Neut % (Auto) Lymph % (Auto) [place] % (Auto) Eos % (Auto) Baso % (Auto) Lymph # (Auto) [place] # (Auto) Eos # (Auto) Baso # (Auto) Abs Immat Gran (auto) Absolute Neuts (auto) Absolute Nucleated RBC Nucleated RBC % (auto) D-Dimer High Sensitivty 515 Sodium Potassium Chloride Carbon Dioxide Anion Gap BUN Creatinine Estim Creat Clear Calc Estimated GFR POC Glucose Random Glucose Lactic Acid Lactic Acid F/U @ 2Hr 0.8 Calcium Magnesium Troponin I High Sens 11.7 B-Natriuretic Peptide 149 H Urine Color Urine Appearance Urine pH Ur Specific [place] Urine Protein Urine Glucose (UA) Urine Ketones Urine Blood Urine Nitrite Ur Leukocyte Esterase COVID-19 (KENJI) [employer] 02/19/22 02/19/22 02/20/22 17:14 22:55 06:21 WBC 8.3 RBC 3.59 L Hgb 11.4 L Hct 35.0 L MCV 97.5 MCH 31.8 MCHC 32.6 RDW 13.8 Plt Count 168 D MPV 11.3 Immature Gran % (Auto) 0.4 Neut % (Auto) 69.6 Lymph % (Auto) 20.7 [place] % (Auto) 6.8 Eos % (Auto) 2.1 Baso % (Auto) 0.4 Lymph # (Auto) 1.7 [place] # (Auto) 0.6 Eos # (Auto) 0.2 Baso # (Auto) 0.0 Abs Immat Gran (auto) 0.03 Absolute Neuts (auto) 5.8 Absolute Nucleated RBC 0.000 Nucleated RBC % (auto) 0.0 D-Dimer High Sensitivty Sodium Potassium Chloride Carbon Dioxide Anion Gap BUN Creatinine Estim Creat Clear Calc Estimated GFR POC Glucose 135 H Random Glucose Lactic Acid Lactic Acid F/U @ 2Hr Calcium Magnesium Troponin I High Sens B-Natriuretic Peptide Urine Color YELLOW Urine Appearance CLEAR Urine pH 5.5 Ur Specific [place] 1.010 Urine Protein TRACE Urine Glucose (UA) NEG Urine Ketones NEG Urine Blood NEG Urine Nitrite NEG Ur Leukocyte Esterase NEG COVID-19 (KENJI) [employer] Count 02/20/22 02/20/22 02/20/22 06:21 07:05 09:27 WBC RBC Hgb Hct MCV MCH MCHC RDW Plt Count MPV Immature Gran % (Auto) Neut % (Auto) Lymph % (Auto) [place] % (Auto) Eos % (Auto) Baso % (Auto) Lymph # (Auto) [place] # (Auto) Eos # (Auto) Baso # (Auto) Abs Immat Gran (auto) Absolute Neuts (auto) Absolute Nucleated RBC Nucleated RBC % (auto) D-Dimer High Sensitivty Sodium 142 Potassium 5.1 Chloride 112 H Carbon Dioxide 20 L Anion Gap 15 BUN 63 H Creatinine 2.25 H Estim Creat Clear Calc 24.6 Estimated GFR 22 POC Glucose 107 Random Glucose 116 H Lactic Acid Lactic Acid F/U @ 2Hr Calcium 9.0 Magnesium Troponin I High Sens 12.6 B-Natriuretic Peptide Urine Color Urine Appearance Urine pH Ur Specific [place] Urine Protein Urine Glucose (UA) Urine Ketones Urine Blood Urine Nitrite Ur Leukocyte Esterase COVID-19 (KENJI) COVID-19 [employer] 02/20/22 12:55 WBC RBC Hgb Hct MCV MCH MCHC RDW Plt Count MPV Immature Gran % (Auto) Neut % (Auto) Lymph % (Auto) [place] % (Auto) Eos % (Auto) Baso % (Auto) Lymph # (Auto) [place] # (Auto) Eos # (Auto) Baso # (Auto) Abs Immat Gran (auto) Absolute Neuts (auto) Absolute Nucleated RBC Nucleated RBC % (auto) D-Dimer High Sensitivty Sodium Potassium Chloride Carbon Dioxide Anion Gap BUN Creatinine Estim Creat Clear Calc Estimated GFR POC Glucose 192 H Random Glucose Lactic Acid Lactic Acid F/U @ 2Hr Calcium Magnesium Troponin I High Sens B-Natriuretic Peptide Urine Color Urine Appearance Urine pH Ur Specific [place] Urine Protein Urine Glucose (UA) Urine Ketones Urine Blood Urine Nitrite Ur Leukocyte Esterase COVID-19 (KENJI) COVID-19 [employer] [facility] Discharge Plan Discharge Patient Disposition: Home, Self-Care Discharge Diagnosis: hypotension Referrals: Physician,Unknown J [Primary Care Provider] - 1 Week Discharge Medications: Continued furosemide 40 mg tablet 40 mg PO DAILY Qty: 90 3RF lorazepam 0.5 mg Tablet 0.5 mg PO BID PRN (Reason: Anxiety) 0RF allopurinol 100 mg Tablet 100 mg PO DAILY 0RF aspirin 81 mg Tablet,Delayed Release (Dr/Ec) 81 mg PO DAILY 0RF Hold Instructions: Resume on 01/13/21. tamsulosin 0.4 mg capsule 0.4 mg PO DAILY@1700 0RF ferrous sulfate [iron] 325 mg (65 mg iron) Tablet 325 mg PO DAILY 0RF insulin aspart U-100 [Novolog Flexpen U-100 Insulin] 100 unit/mL (3 mL) Insulin Pen See Rx Instructions unit .ROUTE .COMPLEX 0RF Rx Instructions: pt states she uses 8 units if BG <200 and 10 units when BG >200 nitroglycerin 0.4 mg Tablet, Sublingual 0.4 mg SUBLINGUAL Q5M PRN (Reason: Chest Pain) 0RF melatonin 5 mg Tablet 5 mg PO BEDTIME PRN (Reason: Sleep) 0RF gabapentin 100 mg capsule 200 mg PO TID 0RF trazodone 50 mg tablet 0.5 tab PO BEDTIME PRN (Reason: Sleep) 0RF meloxicam 7.5 mg tablet 1 tab PO DAILY 0RF pantoprazole 40 mg tablet,delayed release (DR/EC) 1 tab PO DAILY 0RF atorvastatin 80 mg tablet 80 mg PO BEDTIME 0RF Tradjenta 5 mg tablet 5 mg PO DAILY 0RF metoprolol succinate 25 mg tablet extended release 24 hr 1 tab PO DAILY 0RF metoclopramide HCl 5 mg tablet 5 mg PO TID 0RF Rx Instructions: with meals Tresiba FlexTouch U-100 100 unit/mL (3 mL) insulin pen 32 unit subcut DAILY 0RF Changed lisinopril 5 mg tablet 5 mg PO BEDTIME Qty: 0 0RF Discharge Orders: Discharge Order (Routine); Ordered 02/20/22 Ordered By: Merrill Vazquez Diet: advance to usual diet Activity on Discharge: As tolerated Stand Alone Forms: Patient Portal Discharge page Care Plan Goals: recovery Health Concerns: orthostatic hypotension Plan of Treatment: move lisinopril to bedtime Assessment: see above
--- NOTE | 2022-02-20 13:11 | MHC.CM.PN ---
Patient has been medically cleared for dc to home today, self care.
[2022-02-20] MEDS: Insulin Lispro 100 UNIT/ML 3 ML VIAL SUBCUT (13:13)
[2022-02-20 15:51] VITALS: BP 149/67; PULSE 71; RESP 16; TEMP 36.5; O2SAT 98
--- NOTE | 2022-02-20 15:54 | PC.NURSE ---
PATIENT WAS INCONTINENT OF URINE ,CARE WAS GIVEN AND BEDDING WAS CHANGE .
== END 2022-02-20 17:13 | disposition home or self-care (01) ==
LOC: HO.ED 18:44 → HO.EDOVER 22:10 → HO.IMC 02-20 13:02 → HO.EDOVER 02-20 13:09
PROVIDERS: Physician Assistant; Admitting Provider Hospitalist; Emergency Provider Emergency Medicine; Visit Provider Internal Medicine
DX: I95.9 Hypotension, unspecified (principal); G90.9 Disorder of the autonomic nervous system, unspecified; R07.2 Precordial pain; I25.10 Atherosclerotic heart disease of native coronary artery without angina pectoris; I49.8 Other specified cardiac arrhythmias; R94.31 Abnormal electrocardiogram [ECG] [EKG]; R42 Dizziness and giddiness; I21.9 Acute myocardial infarction, unspecified; I11.0 Hypertensive heart disease with heart failure; I50.33 Acute on chronic diastolic (congestive) heart failure; E11.43 Type 2 diabetes mellitus with diabetic autonomic (poly)neuropathy; K31.84 Gastroparesis; E11.29 Type 2 diabetes mellitus with other diabetic kidney complication; N18.9 Chronic kidney disease, unspecified; E78.5 Hyperlipidemia, unspecified; J45.41 Moderate persistent asthma with (acute) exacerbation; J44.9 Chronic obstructive pulmonary disease, unspecified; K21.9 Gastro-esophageal reflux disease without esophagitis; D64.9 Anemia, unspecified; F41.8 Other specified anxiety disorders; Z87.891 Personal history of nicotine dependence; Z20.822 Contact with and (suspected) exposure to COVID-19; Z91.81 History of falling; Z90.49 Acquired absence of other specified parts of digestive tract; Z86.73 Personal history of transient ischemic attack (TIA), and cerebral infarction without residual deficits; Z95.0 Presence of cardiac pacemaker; Z95.1 Presence of aortocoronary bypass graft; Z88.1 Allergy status to other antibiotic agents; Z79.4 Long term (current) use of insulin; Z79.82 Long term (current) use of aspirin; Z79.899 Other long term (current) drug therapy
CPT/HCPCS: 36415; 70450; 71045; 78580; 80048; 80076; 81003; 82947; 83605; 83690; 83735; 83880; 84484; 85025; 85379; 87040; 87635; 93005; 96361; 96374; 99215; 99219; 99285; A9540

== ENCOUNTER 2022-02-26 15:58 | Emergency (ER) | payer OTHER, SELFPAY ==
[2022-02-26] VITALS (8 sets, daily range): BP systolic 87–144; BP diastolic 32–69; PULSE 64–72; RESP 10–16; TEMP 36.7–36.8; O2SAT 93–97; BMI 30.9
--- NOTE | 2022-02-26 16:16 | ED_ITS ---
HPI - Chest Pain General Chief Complaint: Fall Stated Complaint: chest pain Time Seen by Provider: 02/26/22 16:16 Source: patient Mode of arrival: EMS Limitations: no limitations History of Present Illness HPI narrative: Patient is 64 years old with diabetes type 1, coronary artery disease, hypertension, autonomic dysfunction and gastroparesis been here multiple times for different reasons this time patient comes here as she fell yesterday while she was in the bathroom she felt lightheaded and fell down complaining of bilateral shoulder pain no other injuries patient was able to get up from the floor with the help of her granddaughter and ambulated to the room comes here as she is still having the pain in the bilateral shoulder and does not any pain medicine at home [employer] came today and noticed the sitting in the recliner Related Data Home Medications Medication Instructions Recorded Confirmed lorazepam 0.5 mg tablet 0.5 mg PO BID PRN 09/14/20 02/19/22 allopurinol 100 mg tablet 100 mg PO DAILY 09/16/20 02/19/22 aspirin 81 mg tablet,delayed 81 mg PO DAILY 09/16/20 02/19/22 release insulin degludec 100 unit/mL (3 32 unit SUBCUT DAILY ml 11/13/20 02/19/22 mL) subcutaneous pen (Tresiba FlexTouch U-100 insulin) ferrous sulfate 325 mg (65 mg 325 mg PO DAILY 12/22/20 02/19/22 iron) tablet (iron) tamsulosin 0.4 mg capsule 0.4 mg PO DAILY@1700 12/22/20 02/19/22 insulin aspart U-100 100 unit/mL See Rx Instructions .ROUTE .COMPLEX 01/08/21 02/19/22 (3 mL) subcutaneous pen (Novolog Flexpen U-100 Insulin aspart) melatonin 5 mg tablet 5 mg PO BEDTIME PRN 01/08/21 02/19/22 nitroglycerin 0.4 mg sublingual 0.4 mg SUBLINGUAL Q5M PRN 01/08/21 02/19/22 tablet gabapentin 100 mg capsule 200 mg PO TID 03/06/21 02/19/22 metoclopramide HCl 5 mg tablet 5 mg PO TID 03/20/21 02/19/22 meloxicam 7.5 mg tablet 1 tab PO DAILY 01/10/22 02/19/22 pantoprazole 40 mg tablet,delayed 1 tab PO DAILY 01/10/22 02/19/22 release trazodone 50 mg tablet 0.5 tab PO BEDTIME PRN 01/10/22 02/19/22 atorvastatin 80 mg tablet 80 mg PO BEDTIME 01/21/22 02/19/22 linagliptin 5 mg tablet (Tradjenta) 5 mg PO DAILY 01/21/22 02/19/22 metoprolol succinate 25 mg 1 tab PO DAILY 02/19/22 02/19/22 tablet,extended release 24 hr Previous Rx's Medication Instructions Recorded furosemide 40 mg tablet 40 mg PO DAILY #90 tab 12/06/20 lisinopril 5 mg tablet 5 mg PO BEDTIME #0 tab 02/20/22 Allergies Allergy/AdvReac Type Severity Reaction Status Date / Time tetracycline [Tetracycline] Allergy Mild HIVES, Verified 12/27/21 12:22 anaphylaxis, anaphylaxis Review of Systems Review of Systems: Yes all other systems are reviewed and are negative [facility] Past Medical History Medical History Acute heart failure with preserved ejection fraction Anemia Anxiety Arthritis Cardiac pacemaker in situ Carpal tunnel syndrome CHF (congestive heart failure) Chronic heart failure with preserved ejection fraction (HFpEF) COPD exacerbation Coronary artery disease CVA (cerebral vascular accident) Diabetes Fall Gastritis Gastroparesis Gastroparesis GERD (gastroesophageal reflux disease) Headache HLD (hyperlipidemia) HTN (hypertension) HTN (hypertension) Hypocalcemia Hypoxia IBS (irritable bowel syndrome) Knee pain, left Myocardial infarct Nausea and vomiting Orthostasis Renal failure Suprapatellar effusion of knee T2DM (type 2 diabetes mellitus) UTI (urinary tract infection) Surgical History H/O Achilles tendon repair History of appendectomy History of bladder surgery History of carpal tunnel release History of total hysterectomy with bilateral salpingo-oophorectomy (BSO) Hx of amputation Hx of CABG (~2019) Hx of cholecystectomy Hx of endoscopy Hx of knee surgery Hx of tonsillectomy Family History Family History Father No problems noted. Mother Diabetes Hypercholesteremia Hypertension Stroke Social History Social History Household Members: Family Household Members Other:: 1 Housing: Apartment Do you presently have visiting nurse or other home services: Yes (AM/PM med nurse) Alcohol intake: never Patient Tobacco Use Status: Former Tobacco user Years Smoked: 20 Second Hand Smoke Exposure: No Use of substances other than those prescribed or required for medical reasons: No Advance Directives: Yes Advance Directives on File: Yes Advance Directives Date on File: 01/13/22 Patient : No service: No Current occupational status: disabled Physical Exam Vital Signs: Vital Signs: Last Vital Signs Temp 98.3 F 02/26/22 18:30 Pulse 64 02/26/22 22:33 Resp 13 02/26/22 22:33 BP 144/69 H 02/26/22 22:33 Pulse Ox 93 02/26/22 22:33 BMI result Body Mass Index 30.9 Appearance: Alert. Oriented X3. No acute distress. Eyes: PERRLA, No Nystagmus ENT: Pharynx normal. Oral Mucosa moist Neck: Normal inspection. Neck supple. CVS: Normal heart rate and rhythm. Pulses normal. Respiratory: No respiratory distress. Equal air entry bilateral, no wheezing/rales/rhonchi Abdomen: Soft and nontender. Bowel sounds are present, no mass palpable, no CVA tenderness Skin: Skin warm and dry. Normal skin color. Normal skin turgor. Extremities: No lower extremity edema. No calf tenderness , soft tissue tender ness of both shoulder good range of movement no deformity no bony tenderness Neuro: Oriented X 3. No motor deficit. No sensory deficit.No cerebellar signs , cranial nerves II-XII intact MDM - Chest Pain MDM Narrative Medical decision making narrative: Patient with near-syncope episode yesterday recheck blood pressure here was low 95/40 on arrival with orthostatic positive Lab Data Result diagrams: 02/26/22 20:11 02/26/22 20:11 Labs: Lab Results 02/26/22 02/26/22 02/26/22 Range/Units 20:11 20:11 20:47 WBC 8.6 (4.8-10.8) X10*3/uL RBC 3.26 L (4.20-5.50) X10*6/uL Hgb 10.1 L (12.0-16.0) g/dl Hct 31.2 L (37.0-47.0) % MCV 95.7 (80.0-98.0) fL MCH 31.0 (27.0-33.0) pg MCHC 32.4 (31.0-35.0) g/dl RDW 13.5 (11.0-16.0) % Plt Count 192 (160-400) X10*3/uL MPV 11.3 (9.4-12.3) fL Immature Gran % (Auto) 0.5 H (0.0-0.4) % Neut % (Auto) 69.8 (45-73) % Lymph % (Auto) 19.9 L (20-40) % [place] % (Auto) 8.1 (2-11) % Eos % (Auto) 1.4 (0-4) % Baso % (Auto) 0.3 (0-2) % Lymph # (Auto) 1.7 (1.2-4.9) X10*3/uL [place] # (Auto) 0.7 (0.1-1.2) X10*3/uL Eos # (Auto) 0.1 (0.0-0.4) X10*3/uL Baso # (Auto) 0.0 (0.0-0.2) X10*3/uL Abs Immat Gran (auto) 0.04 H (0.00-0.03) X10*3/uL Absolute Neuts (auto) 6.0 (2.0-8.3) x10*3/uL Absolute Nucleated RBC 0.000 (0.0-0.012) X10*3/uL Nucleated RBC % (auto) 0.0 (0.0-0.2) /100WBC Sodium 137 (135-145) mmol/L Potassium 4.8 (3.3-5.1) mmol/L Chloride 109 H (96-108) mmol/L Carbon Dioxide 19 L (22-29) mmol/L Anion Gap 14 (12-20) BUN 52 H (9-16) mg/dL Creatinine 2.98 H (0.5-1.4) mg/dL Estim Creat Clear Calc 18.4 Estimated GFR 16 Random Glucose 221 H (60-115) mg/dL Calcium 8.3 L D (8.4-10.2) mg/dL Total Bilirubin 0.4 (0.0-1.0) mg/dL AST 14 (5-31) U/L ALT 11 (0-31) U/L Alkaline Phosphatase 88 (39-117) U/L Total Protein 6.7 (6.5-8.0) g/dL Albumin 3.3 L (3.5-5.0) g/dL Urine Color YELLOW Urine Appearance HAZY Urine pH 5.5 (5.0-8.0) Ur Specific [place] 1.015 (1.005-1.025) Urine Protein TRACE (NEG-TRACE) MG/DL Urine Glucose (UA) 100 H (NEG) MG/DL Urine Ketones NEG (NEG) MG/DL Urine Blood TRACE (NEG) Urine Nitrite NEG (NEG) Ur Leukocyte Esterase 1+ H (NEG) Urine RBC 0 (0) /HPF Urine WBC 1-4 (0-4) /HPF Ur Squamous Epith Cells 1+ /LPF Urine Bacteria 4+ /LPF Discharge Plan Discharge Clinical Impression: Orthostatic dizziness Patient Disposition: Home, Self-Care Instructions: Lightheadedness (ED) Additional Instructions: Take your own time when trying to stand up as your blood pressure may drop Continue your medications Follow-up your PCP for further management Prescriptions: No Action furosemide 40 mg tablet 40 mg PO DAILY Qty: 90 3RF lorazepam 0.5 mg Tablet 0.5 mg PO BID PRN (Reason: Anxiety) 0RF allopurinol 100 mg Tablet 100 mg PO DAILY 0RF aspirin 81 mg Tablet,Delayed Release (Dr/Ec) 81 mg PO DAILY 0RF Hold Instructions: Resume on 01/13/21. tamsulosin 0.4 mg capsule 0.4 mg PO DAILY@1700 0RF ferrous sulfate [iron] 325 mg (65 mg iron) Tablet 325 mg PO DAILY 0RF insulin aspart U-100 [Novolog Flexpen U-100 Insulin] 100 unit/mL (3 mL) Insulin Pen See Rx Instructions unit .ROUTE .COMPLEX 0RF Rx Instructions: pt states she uses 8 units if BG <200 and 10 units when BG >200 nitroglycerin 0.4 mg Tablet, Sublingual 0.4 mg SUBLINGUAL Q5M PRN (Reason: Chest Pain) 0RF melatonin 5 mg Tablet 5 mg PO BEDTIME PRN (Reason: Sleep) 0RF gabapentin 100 mg capsule 200 mg PO TID 0RF trazodone 50 mg tablet 0.5 tab PO BEDTIME PRN (Reason: Sleep) 0RF meloxicam 7.5 mg tablet 1 tab PO DAILY 0RF pantoprazole 40 mg tablet,delayed release (DR/EC) 1 tab PO DAILY 0RF atorvastatin 80 mg tablet 80 mg PO BEDTIME 0RF Tradjenta 5 mg tablet 5 mg PO DAILY 0RF metoprolol succinate 25 mg tablet extended release 24 hr 1 tab PO DAILY 0RF lisinopril 5 mg tablet 5 mg PO BEDTIME Qty: 0 0RF metoclopramide HCl 5 mg tablet 5 mg PO TID 0RF Rx Instructions: with meals Tresiba FlexTouch U-100 100 unit/mL (3 mL) insulin pen 32 unit subcut DAILY 0RF Interventions: ED Discharge Assessment Last Done: 02/26/22 23:41 Discharge Date/Time: 02/26/22 23:42
[2022-02-26] MEDS: oxyCODONE HCl Immed Release 5 MG TABLET PO (16:55)
[2022-02-26] MEDS: Midodrine HCl 5 MG TABLET PO (16:56)
[2022-02-26] MEDS: 0.9 % Sodium Chloride 1,000 ML 999 ML IV (17:23)
[2022-02-26 20:15] LABS: MANUAL DIFF FLAG NO
[2022-02-26 20:17] LABS: Basophils Percent Auto 0.3 % (0-2); Eosinophils Absolute Auto 0.1 X10*3/uL (0.0-0.4); Eosinophils Percent Auto 1.4 % (0-4); Hematocrit 31.2 % (37.0-47.0); Hemoglobin 10.1 g/dl (12.0-16.0); Imm Gran Abs Auto 0.04 X10*3/uL (0.00-0.03); Imm Gran Pct Auto 0.5 % (0.0-0.4); Lymphocytes Absolute Auto 1.7 X10*3/uL (1.2-4.9); Lymphocytes Percent Auto 19.9 % (20-40); Mean Corpuscular HGB Conc 32.4 g/dl (31.0-35.0); Mean Corpuscular Volume 95.7 fL (80.0-98.0); Mean Platelet Volume 11.3 fL (9.4-12.3); Monocytes Absolute Auto 0.7 X10*3/uL (0.1-1.2); Monocytes Percent Auto 8.1 % (2-11); Neutrophils Percent Auto 69.8 % (45-73); Platelet Count 192 X10*3/uL (160-400); Red Blood Count 3.26 X10*6/uL (4.20-5.50); Red Cell Distribution Width 13.5 % (11.0-16.0); White Blood Count 8.6 X10*3/uL (4.8-10.8)
[2022-02-26 20:39] LABS: Alanine Aminotransferase 11 U/L (0-31); Albumin Level 3.3 g/dL (3.5-5.0); Alkaline Phosphatase 88 U/L (39-117); Anion Gap 14 (12-20); Aspartate Amino Transferase 14 U/L (5-31); Bilirubin Total 0.4 mg/dL (0.0-1.0); Blood Urea Nitrogen 52 mg/dL (9-16); Calcium 8.3 mg/dL (8.4-10.2); Carbon Dioxide 19 mmol/L (22-29); Chloride 109 mmol/L (96-108); Creatinine Clr Calc Pharmacy 18.4; Estimated Glomerular Filt Rate 16; Glucose Random 221 mg/dL (60-115); Potassium 4.8 mmol/L (3.3-5.1); Sodium 137 mmol/L (135-145); Total Protein 6.7 g/dL (6.5-8.0)
[2022-02-26 20:54] LABS: Appearance Urine HAZY; Color Urine YELLOW; Glucose Urine UA 100 MG/DL (NEG); Leukocyte Esterase Urine 1+ (NEG); Nitrite Urine NEG (NEG); PH 5.5 (5.0-8.0); Specific Gravity - Urine 1.015 (1.005-1.025); UACC Culture Trigger YES; Urine Blood TRACE (NEG); Urine Ketones NEG (NEG); Urine Protein TRACE MG/DL (NEG-TRACE)
[2022-02-26 21:28] LABS: Bacteria Urine 4+ /LPF; Squamous Epithelial Cell Urine 1+ /LPF
[2022-02-26 21:29] LABS: RBC Urine 0 /HPF (0)
== END 2022-02-26 23:42 | disposition home or self-care (01) ==
PROVIDERS: Emergency Provider Internal Medicine
DX: R42 Dizziness and giddiness (principal); I95.1 Orthostatic hypotension; N39.0 Urinary tract infection, site not specified; B96.20 Unspecified Escherichia coli [E. coli] as the cause of diseases classified elsewhere; E11.9 Type 2 diabetes mellitus without complications; I10 Essential (primary) hypertension; E78.5 Hyperlipidemia, unspecified; Z87.891 Personal history of nicotine dependence; Z95.0 Presence of cardiac pacemaker; Z95.1 Presence of aortocoronary bypass graft; Z89.429 Acquired absence of other toe(s), unspecified side; Z79.4 Long term (current) use of insulin; Z79.899 Other long term (current) drug therapy; Z79.82 Long term (current) use of aspirin; Z79.02 Long term (current) use of antithrombotics/antiplatelets
CPT/HCPCS: 36415; 80053; 81001; 85025; 87086; 87088; 87186; 96360; 99284; 99285

== ENCOUNTER 2022-03-03 18:07 | Emergency (ER) | payer OTHER, SELFPAY ==
--- NOTE | 2022-03-03 18:27 | ED_ITS ---
HPI - General Adult General Chief complaint: Weakness Stated complaint: hypertension Time Seen by Provider: 03/03/22 18:27 Source: patient Mode of arrival: EMS Limitations: no limitations History of Present Illness HPI narrative: Patient is 61 years old with history of type 1 diabetes autonomic dysfunction diabetic gastroparesis anxiety chronic renal disease been here multiple times last visit was on 02/26 today she comes as she not feeling good today with body aches check a blood sugar was 324 blood pressure was 80/50 by EMS after coming to the ER blood pressure was 125/55 patient denies any fever chills cough shortness of breath no abdominal pain no nausea no vomiting Related Data Home Medications Medication Instructions Recorded Confirmed lorazepam 0.5 mg tablet 0.5 mg PO BID PRN 09/14/20 02/19/22 allopurinol 100 mg tablet 100 mg PO DAILY 09/16/20 02/19/22 aspirin 81 mg tablet,delayed 81 mg PO DAILY 09/16/20 02/19/22 release insulin degludec 100 unit/mL (3 32 unit SUBCUT DAILY ml 11/13/20 02/19/22 mL) subcutaneous pen (Tresiba FlexTouch U-100 insulin) ferrous sulfate 325 mg (65 mg 325 mg PO DAILY 12/22/20 02/19/22 iron) tablet (iron) tamsulosin 0.4 mg capsule 0.4 mg PO DAILY@1700 12/22/20 02/19/22 insulin aspart U-100 100 unit/mL See Rx Instructions .ROUTE .COMPLEX 01/08/21 02/19/22 (3 mL) subcutaneous pen (Novolog Flexpen U-100 Insulin aspart) melatonin 5 mg tablet 5 mg PO BEDTIME PRN 01/08/21 02/19/22 nitroglycerin 0.4 mg sublingual 0.4 mg SUBLINGUAL Q5M PRN 01/08/21 02/19/22 tablet gabapentin 100 mg capsule 200 mg PO TID 03/06/21 02/19/22 metoclopramide HCl 5 mg tablet 5 mg PO TID 03/20/21 02/19/22 meloxicam 7.5 mg tablet 1 tab PO DAILY 01/10/22 02/19/22 pantoprazole 40 mg tablet,delayed 1 tab PO DAILY 01/10/22 02/19/22 release trazodone 50 mg tablet 0.5 tab PO BEDTIME PRN 01/10/22 02/19/22 atorvastatin 80 mg tablet 80 mg PO BEDTIME 01/21/22 02/19/22 linagliptin 5 mg tablet (Tradjenta) 5 mg PO DAILY 01/21/22 02/19/22 metoprolol succinate 25 mg 1 tab PO DAILY 02/19/22 02/19/22 tablet,extended release 24 hr Previous Rx's Medication Instructions Recorded furosemide 40 mg tablet 40 mg PO DAILY #90 tab 12/06/20 lisinopril 5 mg tablet 5 mg PO BEDTIME #0 tab 02/20/22 cephalexin 500 mg capsule 500 mg PO Q6H 7 Days #28 cap 03/03/22 Allergies Allergy/AdvReac Type Severity Reaction Status Date / Time tetracycline [Tetracycline] Allergy Mild HIVES, Verified 12/27/21 12: anaphylaxis, anaphylaxis Review of Systems Review of Systems: Yes all other systems are reviewed and are negative [facility] Past Medical History Medical History Acute heart failure with preserved ejection fraction Anemia Anxiety Arthritis Cardiac pacemaker in situ Carpal tunnel syndrome CHF (congestive heart failure) Chronic heart failure with preserved ejection fraction (HFpEF) COPD exacerbation Coronary artery disease CVA (cerebral vascular accident) Diabetes Fall Gastritis Gastroparesis Gastroparesis GERD (gastroesophageal reflux disease) Headache HLD (hyperlipidemia) HTN (hypertension) HTN (hypertension) Hypocalcemia Hypoxia IBS (irritable bowel syndrome) Knee pain, left Myocardial infarct Nausea and vomiting Orthostasis Renal failure Suprapatellar effusion of knee T2DM (type 2 diabetes mellitus) UTI (urinary tract infection) Surgical History H/O Achilles tendon repair History of appendectomy History of bladder surgery History of carpal tunnel release History of total hysterectomy with bilateral salpingo-oophorectomy (BSO) Hx of amputation Hx of CABG (~2019) Hx of cholecystectomy Hx of endoscopy Hx of knee surgery Hx of tonsillectomy Family History Family History Father No problems noted. Mother Diabetes Hypercholesteremia Hypertension Stroke Social History Social History Household Members: Family Household Members Other:: 1 Housing: Apartment Do you presently have visiting nurse or other home services: Yes (AM/PM med nurse) Alcohol intake: never Patient Tobacco Use Status: Former Tobacco user Years Smoked: 20 Second Hand Smoke Exposure: No Advance Directives: Yes Advance Directives on File: Yes Advance Directives Date on File: 01/13/22 service: No Current occupational status: disabled Physical Exam ED Vital Signs: Vital Signs - 24 hr 03/03/22 18:36 03/03/22 18:37 03/03/22 18:38 Temperature 99.1 F Pulse Rate 76 75 71 Respiratory Rate 16 Blood Pressure 125/51 L 125/51 L 81/46 L Pulse Oximetry 97 03/03/22 18:40 03/03/22 18:56 03/03/22 20:46 Temperature 98.2 F Pulse Rate 77 66 62 Respiratory Rate 18 18 Blood Pressure 65/39 L 154/70 H 151/69 H Pulse Oximetry 98 100 BMI result Body Mass Index 32.9 Appearance: Alert. Oriented X3. No acute distress. Eyes: PERRLA, No Nystagmus ENT: Pharynx normal. Oral Mucosa moist Neck: Normal inspection. Neck supple. CVS: Normal heart rate and rhythm. Pulses normal. Pacemaker in place Respiratory: No respiratory distress. Equal air entry bilateral, no wheezing/rales/rhonchi Abdomen: Soft and nontender. Bowel sounds are present, no mass palpable, no CVA tenderness Skin: Skin warm and dry. Normal skin color. Normal skin turgor. Extremities: No lower extremity edema. No calf tenderness bilateral metatarsal amputation Neuro: Oriented X 3. No motor deficit. No sensory deficit.No cerebellar signs , cranial nerves II-XII intact Medical Decision Making MDM Narrative Medical decision making narrative: Patient or not dysfunction with frequent hypertensions which gets stable after lying down for some time. Patient blood pressure is better now 151/69 COVID negative influenza negative discharge patient home patient not in any distress blood sugar improved to 270 Lab Data Lab results reviewed: Yes I reviewed the patient's lab results. Labs: Lab Results 03/03/22 03/03/22 Range/Units 18:49 19:23 POC Glucose 270 H (60-115) mg/dL Influenza Type A (PCR) NEGATIVE (Negative) Influenza Type B (PCR) NEGATIVE (Negative) RSV RNA Qual (PCR) NEGATIVE (Negative) SARS-CoV-2 RNA (RT-PCR) NEGATIVE (Negative) Discharge Plan Discharge Clinical Impression: Autonomic dysfunction, Orthostatic hypotension Patient Disposition: Home, Self-Care Instructions: Hypotension (ED) Additional Instructions: Take time when trying to get up as the blood pressure will drop, sit for some time and then stand up Continue to take your medications as prescribed by a heat sealing machine operator and PCP Prescriptions: No Action furosemide 40 mg tablet 40 mg PO DAILY Qty: 90 3RF lorazepam 0.5 mg Tablet 0.5 mg PO BID PRN (Reason: Anxiety) 0RF allopurinol 100 mg Tablet 100 mg PO DAILY 0RF aspirin 81 mg Tablet,Delayed Release (Dr/Ec) 81 mg PO DAILY 0RF Hold Instructions: Resume on 01/13/21. tamsulosin 0.4 mg capsule 0.4 mg PO DAILY@1700 0RF ferrous sulfate [iron] 325 mg (65 mg iron) Tablet 325 mg PO DAILY 0RF insulin aspart U-100 [Novolog Flexpen U-100 Insulin] 100 unit/mL (3 mL) Insulin Pen See Rx Instructions unit .ROUTE .COMPLEX 0RF Rx Instructions: pt states she uses 8 units if BG <200 and 10 units when BG >200 nitroglycerin 0.4 mg Tablet, Sublingual 0.4 mg SUBLINGUAL Q5M PRN (Reason: Chest Pain) 0RF melatonin 5 mg Tablet 5 mg PO BEDTIME PRN (Reason: Sleep) 0RF gabapentin 100 mg capsule 200 mg PO TID 0RF trazodone 50 mg tablet 0.5 tab PO BEDTIME PRN (Reason: Sleep) 0RF meloxicam 7.5 mg tablet 1 tab PO DAILY 0RF pantoprazole 40 mg tablet,delayed release (DR/EC) 1 tab PO DAILY 0RF atorvastatin 80 mg tablet 80 mg PO BEDTIME 0RF Tradjenta 5 mg tablet 5 mg PO DAILY 0RF metoprolol succinate 25 mg tablet extended release 24 hr 1 tab PO DAILY 0RF lisinopril 5 mg tablet 5 mg PO BEDTIME Qty: 0 0RF cephalexin 500 mg capsule 500 mg PO Q6H 7 Days Qty: 28 0RF metoclopramide HCl 5 mg tablet 5 mg PO TID 0RF Rx Instructions: with meals Tresiba FlexTouch U-100 100 unit/mL (3 mL) insulin pen 32 unit subcut DAILY 0RF
[2022-03-03 18:36] VITALS: BP 125/51; PULSE 76; RESP 16; TEMP 37.3; O2SAT 97
[2022-03-03 18:37] VITALS: BP 125/51; PULSE 75
[2022-03-03 18:38] VITALS: BP 81/46; PULSE 71
[2022-03-03 18:40] VITALS: BP 65/39; PULSE 77
[2022-03-03 18:53] LABS: Glucose, Whole Blood 270 mg/dL (60-115)
[2022-03-03 18:56] VITALS: BP 154/70; BP 82/56; PULSE 60; PULSE 66; RESP 18; TEMP 36.8; O2SAT 95; O2SAT 98; BMI 32.9
[2022-03-03 20:09] LABS: Influenza A PCR NEGATIVE (Negative); Influenza B PCR NEGATIVE (Negative); Resp Syncy Virus RNA Qual PCR NEGATIVE (Negative); SARS COV2 PCR INHOUSE NEGATIVE (Negative)
[2022-03-03 20:46] VITALS: BP 151/69; PULSE 62; RESP 18; O2SAT 100
== END 2022-03-03 23:48 | disposition home or self-care (01) ==
PROVIDERS: Emergency Provider Internal Medicine
DX: I95.1 Orthostatic hypotension (principal); G90.9 Disorder of the autonomic nervous system, unspecified; Z20.822 Contact with and (suspected) exposure to COVID-19; E11.9 Type 2 diabetes mellitus without complications; I11.0 Hypertensive heart disease with heart failure; I50.9 Heart failure, unspecified; Z79.899 Other long term (current) drug therapy; Z79.82 Long term (current) use of aspirin; Z79.4 Long term (current) use of insulin; Z95.0 Presence of cardiac pacemaker; Z86.73 Personal history of transient ischemic attack (TIA), and cerebral infarction without residual deficits
CPT/HCPCS: 0241U; 82947; 99283

== ENCOUNTER 2022-03-22 17:38 | Inpatient (IN) | payer OTHER, SELFPAY ==
--- NOTE | ~2022-03-22 | XR_ITS ---
EXAMINATION: XR CHEST CLINICAL INFORMATION: Chest pain. COMPARISON: Most recent chest radiograph dated 02/19/2022. TECHNIQUE: Frontal view of the chest was obtained. FINDINGS: Left chest wall pacer with its leads in the right heart. Sternal wires are redemonstrated. No new airspace consolidation. No pleural effusion or pneumothorax. Stable cardiomediastinal silhouette. XR/XR chest 1V IMPRESSION: No acute cardiopulmonary findings.
--- NOTE | 2022-03-22 17:55 | ED_ITS ---
HPI - General Adult General Chief complaint: Weakness Stated complaint: chest pain Time Seen by Provider: 03/22/22 17:53 Source: patient Limitations: no limitations History of Present Illness HPI narrative: This is a 61-year-old female with a history of myocardial infarction, CABG, pacemaker placement, who had onset of chest pain about 2 hours ago while at rest at home. The patient states she was just lying down. She describes the pain as both a pressure and sharp pain in her mid upper chest. She denies any radiation of pain to her neck, shoulders, jaw, arms. She did feel little short of breath earlier, feels better now. She denies any nausea or sweats. She did feel little dizzy. She states the pain is currently 8/10. She denies abdominal pain, leg swelling. She does have history of hypertension, diabetes Related Data Home Medications Medication Instructions Recorded Confirmed lorazepam 0.5 mg tablet 0.5 mg PO BID PRN 09/14/20 02/19/22 allopurinol 100 mg tablet 100 mg PO DAILY 09/16/20 02/19/22 aspirin 81 mg tablet,delayed 81 mg PO DAILY 09/16/20 02/19/22 release insulin degludec 100 unit/mL (3 32 unit SUBCUT DAILY ml 11/13/20 02/19/22 mL) subcutaneous pen (Tresiba FlexTouch U-100 insulin) ferrous sulfate 325 mg (65 mg 325 mg PO DAILY 12/22/20 02/19/22 iron) tablet (iron) tamsulosin 0.4 mg capsule 0.4 mg PO DAILY@1700 12/22/20 02/19/22 insulin aspart U-100 100 unit/mL See Rx Instructions .ROUTE .COMPLEX 01/08/21 02/19/22 (3 mL) subcutaneous pen (Novolog Flexpen U-100 Insulin aspart) melatonin 5 mg tablet 5 mg PO BEDTIME PRN 01/08/21 02/19/22 nitroglycerin 0.4 mg sublingual 0.4 mg SUBLINGUAL Q5M PRN 01/08/21 02/19/22 tablet gabapentin 100 mg capsule 200 mg PO TID 03/06/21 02/19/22 metoclopramide HCl 5 mg tablet 5 mg PO TID 03/20/21 02/19/22 meloxicam 7.5 mg tablet 1 tab PO DAILY 01/10/22 02/19/22 pantoprazole 40 mg tablet,delayed 1 tab PO DAILY 01/10/22 02/19/22 release trazodone 50 mg tablet 0.5 tab PO BEDTIME PRN 01/10/22 02/19/22 atorvastatin 80 mg tablet 80 mg PO BEDTIME 01/21/22 02/19/22 linagliptin 5 mg tablet (Tradjenta) 5 mg PO DAILY 01/21/22 02/19/22 metoprolol succinate 25 mg 1 tab PO DAILY 02/19/22 02/19/22 tablet,extended release 24 hr Previous Rx's Medication Instructions Recorded furosemide 40 mg tablet 40 mg PO DAILY #90 tab 12/06/20 lisinopril 5 mg tablet 5 mg PO BEDTIME #0 tab 02/20/22 cephalexin 500 mg capsule 500 mg PO Q6H 7 Days #28 cap 03/03/22 Allergies Allergy/AdvReac Type Severity Reaction Status Date / Time tetracycline [Tetracycline] Allergy Mild HIVES, Verified 12/27/21 12:22 anaphylaxis, anaphylaxis Review of Systems Review of Systems: Yes all other systems are reviewed and are negative Constitutional: Constitutional: Reports as per HPI and Denies fever(s) Eyes: Eyes: Reports as per HPI and Reports no additional eye complaints ENT: Reports system reviewed and no additional complaints, except as documented, Reports as per HPI, Denies nasal congestion, Denies nasal discharge and Denies sore throat Cardiovascular: Cardiovascular: Reports as per HPI, Reports chest pain and Reports dyspnea Respiratory: Respiratory: Reports as per HPI, Denies cough and Reports dyspnea Gastrointestinal: Gastrointestinal: Reports as per HPI, Denies abdominal pain and Denies vomiting Genitourinary: Genitourinary: Reports as per HPI Musculoskeletal: Musculoskeletal: Reports no additional musculoskeletal complaints and Denies numbness Integumentary/Breasts: Skin/Breast: Reports as per HPI and Denies rash Neurologic: Reports as per HPI, Denies focal weakness and Denies numbness Psychiatric: Psychiatric: Reports no additional psychiatric complaints and Reports as per HPI Endocrine: Endocrine: Reports no additional endocrine complaints and Reports as per HPI Hematologic/Lymphatic: Hematologic/Lymphatic: Reports no additional hematologic/lymphatic complaints, Reports as per HPI and Reports other (No peripheral edema) [facility] Past Medical History Medical History Acute heart failure with preserved ejection fraction Anemia Anxiety Arthritis Cardiac pacemaker in situ Carpal tunnel syndrome CHF (congestive heart failure) Chronic heart failure with preserved ejection fraction (HFpEF) COPD exacerbation Coronary artery disease CVA (cerebral vascular accident) Diabetes Fall Gastritis Gastroparesis Gastroparesis GERD (gastroesophageal reflux disease) Headache HLD (hyperlipidemia) HTN (hypertension) HTN (hypertension) Hypocalcemia Hypoxia IBS (irritable bowel syndrome) Knee pain, left Myocardial infarct Nausea and vomiting Orthostasis Renal failure Suprapatellar effusion of knee T2DM (type 2 diabetes mellitus) UTI (urinary tract infection) Surgical History H/O Achilles tendon repair History of appendectomy History of bladder surgery History of carpal tunnel release History of total hysterectomy with bilateral salpingo-oophorectomy (BSO) Hx of amputation Hx of CABG (~2019) Hx of cholecystectomy Hx of endoscopy Hx of knee surgery Hx of tonsillectomy Family History Family History Father No problems noted. Mother Diabetes Hypercholesteremia Hypertension Stroke Social History Social History Household Members: Family Household Members Other:: 1 Housing: Apartment Do you presently have visiting nurse or other home services: Yes (AM/PM med nurse) Alcohol intake: never Patient Tobacco Use Status: Former Tobacco user Years Smoked: 20 Second Hand Smoke Exposure: No Advance Directives: Yes Advance Directives on File: Yes Advance Directives Date on File: 01/13/22 Patient : No service: No Current occupational status: disabled Physical Exam ED Vital Signs: Vital Signs - 24 hr 03/22/22 18:09 03/22/22 18:28 03/22/22 19:13 Temperature 98.5 F Pulse Rate 70 68 75 Respiratory Rate 12 12 Blood Pressure 93/48 L 98/37 L 91/47 L Pulse Oximetry 95 96 03/22/22 19:22 03/22/22 19:29 03/22/22 19:41 Temperature Pulse Rate 83 78 76 Respiratory Rate Blood Pressure 114/69 130/64 91/47 L Pulse Oximetry BMI result Body Mass Index 31.6 Const Other: Patient is somewhat pale appearing, somewhat flattened affect. Lid conjunctivae however did not appear pale General: no acute distress Orientation/consciousness: patient oriented x3 HENMT Head: Yes normal to inspection General nose exam: Normal external nose present Mouth: moist mucous membranes Throat: Yes posterior oropharynx normal, Yes tonsils normal and Yes uvula m idline Eyes Eyelids: Yes eyelids normal Conjunctivae: conjunctivae normal Pupils: Equal, round and reactive pupils present Neck Neck: Yes supple Resp Effort & Inspection: normal respiratory effort Auscultation: clear to auscultation bilaterally Cardio Rate: regular rate Rhythm: regular rhythm Heart sounds: S1 normal heart sound present, S2 normal heart sound present, no gallops, no murmurs and no rubs GI Inspection: No distended Palpation (GI): Soft to palpation and nontender Auscultation: normal bowel sounds Skin General skin exam: other (Warm and dry) Neuro General: patient oriented x3 and CN's II-XI intact bilaterally Cranial nerves: Yes Equal, round and reactive pupils present Extrem General: Yes no pedal edema Psych Affect: normal affect Attitude: cooperative Medical Decision Making [facility] Narrative Medical decision making narrative: Patient with a very blunted affect, complaining of severe chest pain but not appearing to be in pain. Patient kept on stating her pain was 7 or 8/10 until she was given Dilaudid, and lorazepam. She subsequently was able to fall asleep, stated that her pain was improved considerably, and is now intermittent. Patient's troponin was elevated at around 149, repeat 1 about 2 hours later had gone down to 141. Patient has had elevated troponins many times in the past, does have renal insufficiency. Patient's EKG was nondiagnostic but she does have a pacemaker which makes interpretation of ischemia somewhat challenging. Case was discussed with Dr. Wilkins who knew the patient and felt the patient should be treated for acute coronary syndrome, might need to be transferred to [facility] if chest pain did not subside with medication. Given that the patient's pain did improve significantly and her troponin trended down, and given her affect and the overall clinical picture, did not feel that tra nsferred to [facility] was necessary. Patient is being admitted to the hospital service, Dr. Guadarrama accepting. The patient was treated with nitroglycerin sublingual x2, and did have subsequent hypotension, was bolstered normal saline with improvement in her blood pressure. She was also given aspirin, started on heparin Critical care time for this life-threatening illness exclusive of all other billable procedures was approximately 35 minutes including initial evaluation of the patient, ordering tests, x-ray interpretation, EKG interpretation, medical consultation, documentation, reevaluation. Lab Data Lab results reviewed: Yes I reviewed the patient's lab results. Result diagrams: 03/22/22 18:37 03/22/22 18:35 Labs: Lab Results 03/22/22 03/22/22 03/22/22 Range/Units 18:35 18:37 18:37 WBC 13.3 H (4.8-10.8) X10*3/uL RBC 3.62 L (4.20-5.50) X10*6/uL Hgb 11.1 L (12.0-16.0) g/dl Hct 34.5 L (37.0-47.0) % MCV 95.3 (80.0-98.0) fL MCH 30.7 (27.0-33.0) pg MCHC 32.2 (31.0-35.0) g/dl RDW 14.2 (11.0-16.0) % Plt Count 244 D (160-400) X10*3/uL MPV 10.4 (9.4-12.3) fL Immature Gran % (Auto) 0.8 H (0.0-0.4) % Neut % (Auto) 82.3 H (45-73) % Lymph % (Auto) 11.5 L (20-40) % Knott % (Auto) 4.4 (2-11) % Eos % (Auto) 0.8 (0-4) % Baso % (Auto) 0.2 (0-2) % Lymph # (Auto) 1.5 (1.2-4.9) X10*3/uL Knott # (Auto) 0.6 (0.1-1.2) X10*3/uL Eos # (Auto) 0.1 (0.0-0.4) X10*3/uL Baso # (Auto) 0.0 (0.0-0.2) X10*3/uL Abs Immat Gran (auto) 0.10 H (0.00-0.03) X10*3/uL Absolute Neuts (auto) 11.0 H (2.0-8.3) x10*3/uL Absolute Nucleated RBC 0.000 (0.0-0.012) X10*3/uL Nucleated RBC % (auto) 0.0 (0.0-0.2) /100WBC PT (9.9-13.0) SEC INR (0.9-1.1) aPTT Heparin Protocol (53-77.9) SEC Sodium 138 (135-145) mmol/L Potassium 4.9 (3.3-5.1) mmol/L Chloride 105 (96-108) mmol/L Carbon Dioxide 21 L (22-29) mmol/L Anion Gap 17 (12-20) BUN 67 H (9-16) mg/dL Creatinine 2.98 H (0.5-1.4) mg/dL Estim Creat Clear Calc 18.4 Estimated GFR 16 Random Glucose 286 H (60-115) mg/dL Calcium 9.0 D (8.4-10.2) mg/dL Total Bilirubin 0.5 (0.0-1.0) mg/dL AST 16 (5-31) U/L ALT 12 (0-31) U/L Alkaline Phosphatase 109 D (39-117) U/L Troponin I High Sens 149.9 H* D (<3.5-17.0) ng/L Total Protein 7.6 (6.5-8.0) g/dL Albumin 3.7 (3.5-5.0) g/dL 03/22/22 03/22/22 Range/Units 21:14 21:15 WBC (4.8-10.8) X10*3/uL RBC (4.20-5.50) X10*6/uL Hgb (12.0-16.0) g/dl Hct (37.0-47.0) % MCV (80.0-98.0) fL MCH (27.0-33.0) pg MCHC (31.0-35.0) g/dl RDW (11.0-16.0) % Plt Count (160-400) X10*3/uL MPV (9.4-12.3) fL Immature Gran % (Auto) (0.0-0.4) % Neut % (Auto) (45-73) % Lymph % (Auto) (20-40) % Knott % (Auto) (2-11) % Eos % (Auto) (0-4) % Baso % (Auto) (0-2) % Lymph # (Auto) (1.2-4.9) X10*3/uL Knott # (Auto) (0.1-1.2) X10*3/uL Eos # (Auto) (0.0-0.4) X10*3/uL Baso # (Auto) (0.0-0.2) X10*3/uL Abs Immat Gran (auto) (0.00-0.03) X10*3/uL Absolute Neuts (auto) (2.0-8.3) x10*3/uL Absolute Nucleated RBC (0.0-0.012) X10*3/uL Nucleated RBC % (auto) (0.0-0.2) /100WBC PT 12.4 (9.9-13.0) SEC INR 1.1 (0.9-1.1) aPTT Heparin Protocol 32.6 L (53-77.9) SEC Sodium (135-145) mmol/L Potassium (3.3-5.1) mmol/L Chloride (96-108) mmol/L Carbon Dioxide (22-29) mmol/L Anion Gap (12-20) BUN (9-16) mg/dL Creatinine (0.5-1.4) mg/dL Estim Creat Clear Calc Estimated GFR Random Glucose (60-115) mg/dL Calcium (8.4-10.2) mg/dL Total Bilirubin (0.0-1.0) mg/dL AST (5-31) U/L ALT (0-31) U/L Alkaline Phosphatase (39-117) U/L Troponin I High Sens 141.0 H* (<3.5-17.0) ng/L Total Protein (6.5-8.0) g/dL Albumin (3.5-5.0) g/dL Imaging Data Chest x-ray: Radiologist's impression: IMPRESSION: No acute cardiopulmonary findings. ECG Data Attestation: I personally reviewed and interpreted this ECG as follows: Interpretation: Ventricular paced rhythm with a rate of 75 EKG morphology appears unchanged from 02/19/2022 Discharge Plan Discharge Clinical Impression: Chest pain, Chronic renal insufficiency Patient Disposition: Admitted As Inpatient
[2022-03-22 18:09] VITALS: BP 120/80; BP 93/48; PULSE 70; PULSE 76; RESP 12; TEMP 36.9; O2SAT 95; O2SAT 99; BMI 30.9
[2022-03-22] MEDS: Aspirin 81 MG TAB.CHEW 324 MG PO (18:22)
[2022-03-22 18:28] VITALS: BP 98/37; PULSE 68; RESP 12; O2SAT 96
[2022-03-22 18:40] LABS: MANUAL DIFF FLAG NO
[2022-03-22 18:41] LABS: Basophils Percent Auto 0.2 % (0-2); Eosinophils Absolute Auto 0.1 X10*3/uL (0.0-0.4); Eosinophils Percent Auto 0.8 % (0-4); Hematocrit 34.5 % (37.0-47.0); Hemoglobin 11.1 g/dl (12.0-16.0); Imm Gran Pct Auto 0.8 % (0.0-0.4); Lymphocytes Absolute Auto 1.5 X10*3/uL (1.2-4.9); Lymphocytes Percent Auto 11.5 % (20-40); Mean Corpuscular HGB Conc 32.2 g/dl (31.0-35.0); Mean Corpuscular Hemoglobin 30.7 pg (27.0-33.0); Mean Corpuscular Volume 95.3 fL (80.0-98.0); Mean Platelet Volume 10.4 fL (9.4-12.3); Monocytes Absolute Auto 0.6 X10*3/uL (0.1-1.2); Monocytes Percent Auto 4.4 % (2-11); Neutrophils Percent Auto 82.3 % (45-73); Platelet Count 244 X10*3/uL (160-400); Red Blood Count 3.62 X10*6/uL (4.20-5.50); Red Cell Distribution Width 14.2 % (11.0-16.0); White Blood Count 13.3 X10*3/uL (4.8-10.8)
[2022-03-22 18:54] LABS: Alanine Aminotransferase 12 U/L (0-31); Albumin Level 3.7 g/dL (3.5-5.0); Alkaline Phosphatase 109 U/L (39-117); Anion Gap 17 (12-20); Aspartate Amino Transferase 16 U/L (5-31); Bilirubin Total 0.5 mg/dL (0.0-1.0); Blood Urea Nitrogen 67 mg/dL (9-16); Carbon Dioxide 21 mmol/L (22-29); Chloride 105 mmol/L (96-108); Creatinine Clr Calc Pharmacy 18.4; Estimated Glomerular Filt Rate 16; Glucose Random 286 mg/dL (60-115); Potassium 4.9 mmol/L (3.3-5.1); Sodium 138 mmol/L (135-145); Total Protein 7.6 g/dL (6.5-8.0)
[2022-03-22 19:08] LABS: Troponin-I High Sensitivity 149.9 ng/L (<3.5-17.0)
--- NOTE | 2022-03-22 19:11 | ECG_ITS ---
Test Reason : CHEST PAIN Blood Pressure : / mmHG Vent. Rate : 075 BPM Atrial Rate : 075 BPM P-R Int : 000 ms QRS Dur : 120 ms QT Int : 456 ms P-R-T Axes : 003 095 268 degrees QTc Int : 509 ms Ventricular-paced rhythm Abnormal ECG When compared with ECG of 19-FEB-2022 13:55, No significant change was found Referred By: Henri Salmon Electronically Signed By:Efren Diaz
[2022-03-22 19:13] VITALS: BP 91/47; PULSE 75
[2022-03-22 19:22] VITALS: BP 114/69; PULSE 83
[2022-03-22 19:29] VITALS: BP 130/64; PULSE 78
[2022-03-22 19:41] VITALS: BP 91/47; PULSE 76
--- NOTE | 2022-03-22 19:42 | PC.NURSE ---
PT hypotensive after 2nd SL nitro Dr. Salmon made aware. Per verbal order, hold 3rd nitro CP currently 05/31
[2022-03-22] MEDS: 0.9 % Sodium Chloride 250 ML 999 ML IV (20:00)
[2022-03-22] MEDS: HYDROmorphone HCl 0.5 MG/0.5 ML SYRINGE 0.25 MG IVPUSH (20:56)
[2022-03-22] MEDS: Heparin Sodium,Porcine 5,000 UNIT/ML VIAL 4000 UNIT IVPUSH (20:56)
[2022-03-22 21:27] LABS: INTERNATIONAL NORM RATIO 1.1 (0.9-1.1); Prothrombin Time 12.4 SEC (9.9-13.0)
[2022-03-22 21:30] LABS: PTT Heparin Drip 32.6 SEC (53-77.9)
[2022-03-22 21:39] VITALS: BMI 31.6
[2022-03-22] MEDS: LORazepam 2 MG/ML VIAL 0.25 MG IVPUSH (22:10)
[2022-03-22] MEDS: Heparin Sodium,Porcine/1/2NS 25,000 UNIT/250 ML IV.SOLN 10.98 UNIT IVCONT (22:48)
--- NOTE | 2022-03-22 22:51 | PC.NURSE ---
Heparin drip infusing per MAR, PTTHD due 444, order placed.
--- NOTE | 2022-03-22 23:36 | P.HPHOSP_ITS ---
History of Present Illness Date of Service: 03/22/22 Chief Complaint: chest pain 61-year-old female with a past medical history of HTN, HLD, DM, CAD s/p CABG, HFpEF, Hx Cardiac pacemaker, diabetic gastropathy, irritable bowel syndrome, history of CVA,Arthritis, anemia, CKD, Hx Amputation presented to the hospital with a chief complaint of chest pain. Patient reports the chest pain started around noon time, sharp in nature, nonradiating, associated mild lightheadedness, denies any shortness of breath. Denies any nausea or vomiting. Chest pain is intermittent in nature; worsens with deep inspiration. Denies any fever chills cough. Denies any GI symptoms. Review of all other systems is negative except mentioned above ER course: Per ER team patient chest pain currently resolved; troponins noted to be indeterminate but plateaued. EKG nonischemic. Cardiology was notified who/admission to the hospital for further management as well as heparin drip PMFSH Medical History Acute heart failure with preserved ejection fraction Anemia Anxiety Arthritis Cardiac pacemaker in situ Carpal tunnel syndrome CHF (congestive heart failure) Chronic heart failure with preserved ejection fraction (HFpEF) COPD exacerbation Coronary artery disease CVA (cerebral vascular accident) Diabetes Diabetic gastroparesis Fall Gastritis Gastroparesis Gastroparesis GERD (gastroesophageal reflux disease) Headache Heart failure with preserved ejection fraction HLD (hyperlipidemia) HTN (hypertension) HTN (hypertension) Hypocalcemia Hypoxia IBS (irritable bowel syndrome) Knee pain, left Myocardial infarct Nausea and vomiting Orthostasis Renal failure Suprapatellar effusion of knee T2DM (type 2 diabetes mellitus) UTI (urinary tract infection) Family History Father No problems noted. Mother Diabetes Hypercholesteremia Hypertension Stroke Surgical History H/O Achilles tendon repair History of appendectomy History of bladder surgery History of carpal tunnel release History of total hysterectomy with bilateral salpingo-oophorectomy (BSO) Hx of amputation Hx of CABG (~2019) Hx of cholecystectomy Hx of endoscopy Hx of knee surgery Hx of tonsillectomy Social History Household Members: Family Household Members Other:: 1 Housing: Apartment Do you presently have visiting nurse or other home services: Yes Alcohol intake: unknown Patient Tobacco Use Status: Former Tobacco user Years Smoked: 20 Second Hand Smoke Exposure: No Advance Directives: Yes Advance Directives on File: Yes Advance Directives Date on File: 01/13/22 service: No Current occupational status: disabled Meds Allergies Allergy/AdvReac Type Severity Reaction Status Date / Time tetracycline [Tetracycline] Allergy Mild HIVES, Verified 05/04/22 13:14 anaphylaxis, anaphylaxis Active Medications: Current Medications Heparin Sodium (Porcine) (Heparin Sodium,Porcine 5,000 Unit/Ml Vial) 3,100 unit 40 unit/kg (3100 unit) IVPUSH PROTOCOL BOLUS PRN; Protocol PRN Reason: 40 unit/kg - Heparin Protocol Heparin Sodium (Porcine) (Heparin Sodium,Porcine 5,000 Unit/Ml Vial) 6,300 unit 80 unit/kg (6300 unit) IVPUSH PROTOCOL BOLUS PRN; Protocol PRN Reason: 80 unit/kg - Heparin Protocol Heparin Sodium/Sodium Chloride () 25,000 unit in 250 mls @ 0 mls/hr IVCONT .Q0M LAW; Protocol Last Admin: 03/22/22 22:48 Dose: 14 units/kg/hr, 10.98 mls/hr Documented by: Nitroglycerin (Nitroglycerin 0.4 Mg Tab.Subl) 0.4 mg SUBLINGUAL Q5MX3 PRN PRN Reason: Chest Pain Home Medications Medication Instructions Recorded Confirmed Last Taken Type lorazepam 0.5 mg tablet 0.5 mg PO BID PRN Anxiety 09/14/20 05/27/22 03/22/22 History allopurinol 100 mg tablet 100 mg PO DAILY 09/16/20 05/27/22 05/04/22 History aspirin 81 mg tablet,delayed 81 mg PO DAILY 09/16/20 05/27/22 05/04/22 History release ferrous sulfate 325 mg (65 mg 325 mg PO DAILY 12/22/20 05/27/22 05/04/22 History iron) tablet (iron) tamsulosin 0.4 mg capsule 0.4 mg PO DAILY@1700 12/22/20 05/27/22 05/03/22 History melatonin 5 mg tablet 5 mg PO BEDTIME PRN Sleep 01/08/21 05/27/22 04/14/22 Hist ory nitroglycerin 0.4 mg sublingual 0.4 mg sublingual Q5M PRN Chest 01/08/21 05/27/22 03/22/22 History tablet Pain gabapentin 100 mg capsule 200 mg PO TID 03/06/21 05/27/22 05/04/22 History metoclopramide HCl 5 mg tablet 5 mg PO TIDWM 03/20/21 05/27/22 05/04/22 History pantoprazole 40 mg tablet,delayed 1 tab PO DAILY 01/10/22 05/27/22 05/04/22 History release trazodone 50 mg tablet 0.5 tab PO BEDTIME PRN Sleep 01/10/22 05/27/22 04/17/22 History atorvastatin 80 mg tablet 80 mg PO BEDTIME 01/21/22 05/27/22 05/03/22 History linagliptin 5 mg tablet (Tradjenta) 5 mg PO DAILY 01/21/22 05/27/22 05/04/22 History acetaminophen 500 mg tablet 1 tab PO Q6H PRN Pain 03/23/22 05/27/22 03/22/22 History cholecalciferol (vitamin D3) 25 1 cap PO DAILY 03/23/22 05/27/22 05/04/22 History mcg (1,000 unit) capsule insulin aspart U-100 100 unit/mL See Protocol subcut TIDAC 04/15/22 05/27/22 05/04/22 History (3 mL) subcutaneous pen (Novolog Flexpen U-100 Insulin aspart) loperamide 2 mg capsule 2 mg PO DAILY PRN Diarrhea 04/15/22 05/27/22 Unknown History furosemide 40 mg tablet 40 mg PO DAILY 04/18/22 05/27/22 05/04/22 History sodium zirconium cyclosilicate 5 5 g PO Q2D 05/04/22 05/27/22 05/04/22 History gram oral powder packet (Lokelma) Physical Exam Vital Signs and Narrative: Vital Signs: Last Vital Signs Temp 98.5 F 03/22/22 18:09 Pulse 76 03/22/22 19:41 Resp 12 03/22/22 18:28 BP 91/47 L 03/22/22 19:41 Pulse Ox 96 03/22/22 18:28 BMI result Body Mass Index 31.6 Gen: Appears be in no acute distress HEENT: NCAT, Moist mucosa. Pulmonary: Vesicular breath sounds, fair air entry; chest pain is reproducible CVS: Normal S1-S2 Abdomen: BS+, Soft, Nontender Extremities: Warm well perfused Neuro: Alert and awake. Results Labs CBC and Chem 7: 03/23/22 08:42 03/25/22 05:18 Labs: Laboratory Results - last 24 hr 03/22/22 03/22/22 03/22/22 18:35 18:37 18:37 MCV 95.3 MCH 30.7 MCHC 32.2 RDW 14.2 Plt Count 244 D MPV 10.4 Immature Gran % (Auto) 0.8 H Neut % (Auto) 82.3 H Lymph % (Auto) 11.5 L Wilcox % (Auto) 4.4 Eos % (Auto) 0.8 Baso % (Auto) 0.2 Lymph # (Auto) 1.5 Wilcox # (Auto) 0.6 Eos # (Auto) 0.1 Baso # (Auto) 0.0 Abs Immat Gran (auto) 0.10 H Absolute Neuts (auto) 11.0 H Absolute Nucleated RBC 0.000 Nucleated RBC % (auto) 0.0 PT INR aPTT Heparin Protocol Anion Gap 17 Estim Creat Clear Calc 18.4 Estimated GFR 16 Random Glucose 286 H Calcium 9.0 D Total Bilirubin 0.5 AST 16 ALT 12 Alkaline Phosphatase 109 D Troponin I High Sens 149.9 H* D Total Protein 7.6 Albumin 3.7 03/22/22 03/22/22 21:14 21:15 MCV MCH MCHC RDW Plt Count MPV Immature Gran % (Auto) Neut % (Auto) Lymph % (Auto) Wilcox % (Auto) Eos % (Auto) Baso % (Auto) Lymph # (Auto) Wilcox # (Auto) Eos # (Auto) Baso # (Auto) Abs Immat Gran (auto) Absolute Neuts (auto) Absolute Nucleated RBC Nucleated RBC % (auto) PT 12.4 INR 1.1 aPTT Heparin Protocol 32.6 L Anion Gap Estim Creat Clear Calc Estimated GFR Random Glucose Calcium Total Bilirubin AST ALT Alkaline Phosphatase Troponin I High Sens 141.0 H* Total Protein Albumin Imaging Radiologist's Impressions: Impressions Chest X-Ray 03/22/22 18:00 IMPRESSION: No acute cardiopulmonary findings. Assessment and Plan (1) Acute kidney injury superimposed on CKD: Status: Acute Plan 61-year-old female with a past medical history of HTN, HLD, DM, CAD s/p CABG, HFpEF, Hx Cardiac pacemaker, diabetic gastropathy, irritable bowel syndrome, history of CVA,Arthritis, anemia, CKD, Hx Amputation presented to the hospital with a chief complaint of chest pain. Chest pain: Troponins indeterminate. ER team initially Concerned for NSTEMI. Cardiology was notified. Empirically started on heparin drip. Monitor on telemetry In Mild ISA on CKD: Patient baseline creatinine around 2.4-2.6. Creatinine on presentation is 2.98. Encourage oral hydration. Avoid nephrotoxins. History of CHF: Currently stable. Continue home medications History of diabetes: Insulin sliding scale. For all other chronic conditions, home medications will be continued once med rec is finished. DVT prophylaxis: Patient on heparin drip Code status: Full code Quality Stroke Does the patient have a stroke diagnosis?: No VTE Prior VTE?: No VTE Risk Level:: Medical - moderate - high VTE Device Contraindication: Treatment Not Indicated VTE Drug Contraindication: N/A - Med Ordered
[2022-03-23] VITALS (9 sets, daily range): BP systolic 97–158; BP diastolic 50–72; PULSE 15–82; RESP 12–20; TEMP 36.1–36.6; O2SAT 93–99
--- NOTE | 2022-03-23 | ECG_ITS ---
Test Reason : CHEST PAIN Blood Pressure : / mmHG Vent. Rate : 075 BPM Atrial Rate : 075 BPM P-R Int : 214 ms QRS Dur : 120 ms QT Int : 416 ms P-R-T Axes : 030 101 -88 degrees QTc Int : 464 ms Atrial-sensed ventricular-paced rhythm with prolonged AV conduction Abnormal ECG When compared with ECG of 22-MAR-2022 19:22, No significant change was found Referred By: Ross Guadarrama Electronically Signed By:LG SALAZAR MD
[2022-03-23] MEDS: HYDROmorphone HCl 1 MG/ML SYRINGE 0.5 MG IVPUSH ×4 (02:05→19:49)
[2022-03-23 06:04] LABS: MANUAL DIFF FLAG NO
[2022-03-23 06:10] LABS: Basophils Percent Auto 0.3 % (0-2); Eosinophils Absolute Auto 0.3 X10*3/uL (0.0-0.4); Eosinophils Percent Auto 2.3 % (0-4); Hematocrit 34.3 % (37.0-47.0); Imm Gran Abs Auto 0.07 X10*3/uL (0.00-0.03); Imm Gran Pct Auto 0.6 % (0.0-0.4); Lymphocytes Absolute Auto 2.6 X10*3/uL (1.2-4.9); Lymphocytes Percent Auto 23.5 % (20-40); Mean Corpuscular HGB Conc 32.1 g/dl (31.0-35.0); Mean Corpuscular Hemoglobin 30.4 pg (27.0-33.0); Mean Corpuscular Volume 94.8 fL (80.0-98.0); Mean Platelet Volume 10.9 fL (9.4-12.3); Monocytes Absolute Auto 0.9 X10*3/uL (0.1-1.2); Monocytes Percent Auto 8.4 % (2-11); Neutrophils Absolute Auto 7.1 x10*3/uL (2.0-8.3); Neutrophils Percent Auto 64.9 % (45-73); Platelet Count 252 X10*3/uL (160-400); Red Blood Count 3.62 X10*6/uL (4.20-5.50); Red Cell Distribution Width 14.2 % (11.0-16.0)
[2022-03-23 06:19] LABS: PTT Heparin Drip 63.4 SEC (53-77.9)
[2022-03-23 06:58] LABS: Anion Gap 14 (12-20); Blood Urea Nitrogen 74 mg/dL (9-16); Calcium 8.9 mg/dL (8.4-10.2); Carbon Dioxide 23 mmol/L (22-29); Chloride 108 mmol/L (96-108); Creatinine Clr Calc Pharmacy 17.6; Estimated Glomerular Filt Rate 15; Glucose Random 124 mg/dL (60-115); Potassium 4.8 mmol/L (3.3-5.1); Sodium 140 mmol/L (135-145)
--- NOTE | 2022-03-23 07:36 | PC.NURSE ---
Report given to AYUSH Rodríguez
[2022-03-23 08:01] LABS: COVID-19 Test Negative (Negative); IDNOW Serial# 16C4AD1C
--- NOTE | 2022-03-23 08:18 | HO.PM.IMPN ---
Subjective Subjective Date of Service: 03/23/22 Interval History: CC: f./u on elevated troponin, chest pain, ?NSTEMI Interval history: still c/o some chest pain, HD stable. Review of Systems chest pain no sob Physical Exam Vital Signs: Vital Signs: Last Vital Signs Temp 98.5 F 03/22/22 18:09 Pulse 68 03/23/22 04:50 Resp 14 03/23/22 04:50 BP 108/57 L 03/23/22 04:50 Pulse Ox 99 03/23/22 04:50 BMI result Body Mass Index 31.6 Const: Other: General: AO X 3, no acute distress Resp: CTA bilateral CVS: S1,S2,RRR GI: +BS, NT, no distention Skin: No rash Neuro: motor grossly intact Psych: appropriate affect Objective Data Active Medications Acetaminophen (Acetaminophen 325 Mg Tablet) 650 mg PO Q6H PRN PRN Reason: Pain, Mild (Pain Scale 1-3) Dextrose (Dextrose 50 % 25 Gm/50 Ml Syringe) 25 gm IVPUSH Q15M PRN; Protocol PRN Reason: per Hypoglycemia Standing Ord. Glucose (Glucose Gel 15 Gm Gel..Gram.) 15 gm PO Q15M PRN; Protocol PRN Reason: per Hypoglycemia Standing Ord. Heparin Sodium (Porcine) (Heparin Sodium,Porcine 5,000 Unit/Ml Vial) 3,100 unit 40 unit/kg (3100 unit) IVPUSH PROTOCOL BOLUS PRN; Protocol PRN Reason: 40 unit/kg - Heparin Protocol Heparin Sodium (Porcine) (Heparin Sodium,Porcine 5,000 Unit/Ml Vial) 6,300 unit 80 unit/kg (6300 unit) IVPUSH PROTOCOL BOLUS PRN; Protocol PRN Reason: 80 unit/kg - Heparin Protocol Hydromorphone HCl (Hydromorphone Hcl 1 Mg/Ml Syringe) 0.5 mg IVPUSH Q4H PRN; Protocol PRN Reason: Pain, Severe (Pain Scale 7-10) Last Admin: 03/23/22 02:05 Dose: 0.5 mg Documented by: ROXANNA Heparin Sodium/Sodium Chloride () 25,000 unit in 250 mls @ 0 mls/hr IVCONT .Q0M LAW; Protocol Last Admin: 03/22/22 22:48 Dose: 14 units/kg/hr, 10.98 mls/hr Documented by: NORA Cosigned by: ROXANNA Insulin Human Lispro (Insulin Lispro 100 Unit/Ml 3 Ml Vial) 0 unit SUBCUT QIDACHS [facility]; Protocol Melatonin (Melatonin 3 Mg Tablet) 6 mg PO BEDTIME PRN PRN Reason: Insomnia Nitroglycerin (Nitroglycerin 0.4 Mg Tab.Subl) 0.4 mg SUBLINGUAL Q5MX3 PRN PRN Reason: Chest Pain Pharmacy Consult (Consult Rx Perform Med Rec) 1 each MISCELLANE ONCE PRN PRN Reason: Consult order Senna (Sennosides 8.6 Mg Tablet) 17.2 mg PO BEDTIME PRN PRN Reason: Constipation Sodium Chloride (0.9 % Sodium Chloride Flush 3 Ml Syringe) [facility] Last Admin: 03/23/22 02:07 Dose: Not Given Documented by: ROXANNA Non-Admin Reason: IV Running Labs CBC & Chem 7: 03/23/22 05:50 03/23/22 05:50 Labs: Laboratory Results - last 24 hr 03/22/22 03/22/22 03/22/22 18:35 18:37 18:37 MCV 95.3 MCH 30.7 MCHC 32.2 RDW 14.2 Plt Count 244 D MPV 10.4 Immature Gran % (Auto) 0.8 H Neut % (Auto) 82.3 H Lymph % (Auto) 11.5 L Wells % (Auto) 4.4 Eos % (Auto) 0.8 Baso % (Auto) 0.2 Lymph # (Auto) 1.5 Wells # (Auto) 0.6 Eos # (Auto) 0.1 Baso # (Auto) 0.0 Abs Immat Gran (auto) 0.10 H Absolute Neuts (auto) 11.0 H Absolute Nucleated RBC 0.000 Nucleated RBC % (auto) 0.0 PT INR aPTT Heparin Protocol Anion Gap 17 Estim Creat Clear Calc 18.4 Estimated GFR 16 Random Glucose 286 H Calcium 9.0 D Total Bilirubin 0.5 AST 16 ALT 12 Alkaline Phosphatase 109 D Troponin I High Sens 149.9 H* D Total Protein 7.6 Albumin 3.7 COVID-19 ([facility]I) COVID-19 Clin Com 03/22/22 03/22/22 03/23/22 21:14 21:15 05:50 MCV MCH MCHC RDW Plt Count MPV Immature Gran % (Auto) Neut % (Auto) Lymph % (Auto) Wells % (Auto) Eos % (Auto) Baso % (Auto) Lymph # (Auto) Wells # (Auto) Eos # (Auto) Baso # (Auto) Abs Immat Gran (auto) Absolute Neuts (auto) Absolute Nucleated RBC Nucleated RBC % (auto) PT 12.4 INR 1.1 aPTT Heparin Protocol 32.6 L 63.4 D Anion Gap Estim Creat Clear Calc Estimated GFR Random Glucose Calcium Total Bilirubin AST ALT Alkaline Phosphatase Troponin I High Sens 141.0 H* Total Protein Albumin COVID-19 ([facility]I) COVID-[place] 03/23/22 03/23/22 03/23/22 05:50 05:50 07:40 MCV 94.8 MCH 30.4 MCHC 32.1 RDW 14.2 Plt Count 252 MPV 10.9 Immature Gran % (Auto) 0.6 H Neut % (Auto) 64.9 Lymph % (Auto) 23.5 Wells % (Auto) 8.4 Eos % (Auto) 2.3 Baso % (Auto) 0.3 Lymph # (Auto) 2.6 Wells # (Auto) 0.9 Eos # (Auto) 0.3 Baso # (Auto) 0.0 Abs Immat Gran (auto) 0.07 H Absolute Neuts (auto) 7.1 Absolute Nucleated RBC 0.000 Nucleated RBC % (auto) 0.0 PT INR aPTT Heparin Protocol Anion Gap 14 Estim Creat Clear Calc 17.6 Estimated GFR 15 Random Glucose 124 H Calcium 8.9 Total Bilirubin AST ALT Alkaline Phosphatase Troponin I High Sens Total Protein Albumin COVID-19 ([facility]JI) Negative COVID-19 Clin Com See Note Assessment and Plan (1) Diabetic gastroparesis: Status: Acute (2) Uncontrolled hypertension: Status: Resolved (3) Chest pain: Status: Acute (4) Chronic renal insufficiency: Status: Acute Plan 61-year-old female with a past medical history of HTN, HLD, DM, CAD s/p CABG, HFpEF, Hx Cardiac pacemaker, diabetic gastropathy, irritable bowel syndrome, history of CVA,Arthritis, anemia, CKD, Hx Amputation presented to the hospital with a chief complaint of chest pain. Chest pain:? Troponins indeterminate likely from CKD Continue heparin for now and discuss with cardiology Mild ISA on CKD:? Patient baseline creatinine around 2.4-2.6.? Creatinine on presentation is 2.98.? Encourage oral hydration.? Avoid nephrotoxins. History of CHF:? Currently stable.? Continue home medications History of diabetes:? Insulin sliding scale. For all other chronic conditions, home medications will be continued once med rec is finished. DVT prophylaxis:? Patient on heparin drip inpatient for ongoing work up and treatment for HI with heparin Quality Stroke Does the patient have a stroke diagnosis?: No VTE Prior VTE?: No VTE Risk Level:: Medical - moderate - high VTE Device Contraindication: Treatment Not Indicated VTE Drug Contraindication: N/A - Med Ordered
[2022-03-23 09:20] LABS: INTERNATIONAL NORM RATIO 1.1 (0.9-1.1); Prothrombin Time 12.5 SEC (9.9-13.0)
[2022-03-23 09:21] LABS: Hematocrit 34.4 % (37.0-47.0); Hemoglobin 10.9 g/dl (12.0-16.0); Mean Corpuscular HGB Conc 31.7 g/dl (31.0-35.0); Mean Corpuscular Hemoglobin 30.2 pg (27.0-33.0); Mean Corpuscular Volume 95.3 fL (80.0-98.0); Mean Platelet Volume 11.2 fL (9.4-12.3); Platelet Count 264 X10*3/uL (160-400); Red Blood Count 3.61 X10*6/uL (4.20-5.50); Red Cell Distribution Width 14.1 % (11.0-16.0); White Blood Count 9.7 X10*3/uL (4.8-10.8)
[2022-03-23 09:21] LABS: Glucose, Whole Blood 113 mg/dL (60-115)
[2022-03-23 10:10] LABS: Troponin-I High Sensitivity 154.4 ng/L (<3.5-17.0)
--- NOTE | 2022-03-23 11:37 | P.CONCA_ITS ---
History of Present Illness History of Present Illness Date of Service: 03/23/22 Chief complaint: chest pain Narrative: 61-year-old female who is presenting for chest pain. She has complex cardiovascular history in the past with previous bypass surgery, chronic renal insufficiency, autonomic dysfunction due to diabetes and previous presentation with elevated blood pressures and mild troponin abnormalities. She also has hypertension, irritable bowel syndrome, gastroparesis, previous stroke, anxiety and hyperlipidemia. She is presenting with chest pain which has been happening over the last couple of days. She is saying she is going for physical therapy 2 to 3 times a week where she walks to was not experiencing any pain before. Over the last couple of days she has noticed chest pain which is constant and feels like a pressure. She has tenderness on the left side of her sternum which reproduces the same pain that she has been experiencing. Her description of the pain is like heavy breaks but the reproducible pain is the same sensation. Somewhat complex history because she has known bypass surgery in the past. Blood pressure has fluctuated again between 100 and 158 mm Hg. At the time of interview she was complaining of chest pain which got worse after palpation of the chest. [facility] Past Medical History Medical History Acute heart failure with preserved ejection fraction Anemia Anxiety Arthritis Cardiac pacemaker in situ Carpal tunnel syndrome CHF (congestive heart failure) Chronic heart failure with preserved ejection fraction (HFpEF) COPD exacerbation Coronary artery disease CVA (cerebral vascular accident) Diabetes Fall Gastritis Gastroparesis Gastroparesis GERD (gastroesophageal reflux disease) Headache HLD (hyperlipidemia) HTN (hypertension) HTN (hypertension) Hypocalcemia Hypoxia IBS (irritable bowel syndrome) Knee pain, left Myocardial infarct Nausea and vomiting Orthostasis Renal failure Suprapatellar effusion of knee T2DM (type 2 diabetes mellitus) UTI (urinary tract infection) Family History Family History Father No problems noted. Mother Diabetes Hypercholesteremia Hypertension Stroke Surgical History Surgical History H/O Achilles tendon repair History of appendectomy History of bladder surgery History of carpal tunnel release History of total hysterectomy with bilateral salpingo-oophorectomy (BSO) Hx of amputation Hx of CABG (~2019) Hx of cholecystectomy Hx of endoscopy Hx of knee surgery Hx of tonsillectomy Social History Social History Household Members: Family Household Members Other:: 1 Housing: Apartment Do you presently have visiting nurse or other home services: Yes Alcohol intake: never Patient Tobacco Use Status: Former Tobacco user Years Smoked: 20 Second Hand Smoke Exposure: No Use of substances other than those prescribed or required for medical reasons: No Have you been hit, kicked, punched, or otherwise hurt by someone within the past year? If so, by whom?: No Do you feel safe in your current relationship?: No Current Relationship Are you made to feel afraid or neglected: No Advance Directives: Yes Advance Directives on File: Yes Advance Directives Date on File: 01/13/22 Do you have thoughts of harming others: None Do you have a plan to hurt others: No Plan Recently lost weight without trying: No Patient : No service: No Current occupational status: disabled Meds Allergies Allergy/AdvReac Type Severity Reaction Status Date / Time tetracycline [Tetracycline] Allergy Mild HIVES, Verified 12/27/21 12:22 anaphylaxis, anaphylaxis Active Medications: Current Medications Acetaminophen (Acetaminophen 325 Mg Tablet) 650 mg PO Q6H PRN PRN Reason: Pain, Mild (Pain Scale 1-3) Dextrose (Dextrose 50 % 25 Gm/50 Ml Syringe) 25 gm IVPUSH Q15M PRN; Protocol PRN Reason: per Hypoglycemia Standing Ord. Glucose (Glucose Gel 15 Gm Gel..Gram.) 15 gm PO Q15M PRN; Protocol PRN Reason: per Hypoglycemia Standing Ord. Heparin Sodium (Porcine) (Heparin Sodium,Porcine 5,000 Unit/Ml Vial) 3,100 unit 40 unit/kg (3100 unit) IVPUSH PROTOCOL BOLUS PRN; Protocol PRN Reason: 40 unit/kg - Heparin Protocol Heparin Sodium (Porcine) (Heparin Sodium,Porcine 5,000 Unit/Ml Vial) 6,300 unit 80 unit/kg (6300 unit) IVPUSH PROTOCOL BOLUS PRN; Protocol PRN Reason: 80 unit/kg - Heparin Protocol Hydromorphone HCl (Hydromorphone Hcl 1 Mg/Ml Syringe) 0.5 mg IVPUSH Q4H PRN; Protocol PRN Reason: Pain, Severe (Pain Scale 7-10) Last Admin: 03/23/22 09:53 Dose: 0.5 mg Documented by: Heparin Sodium/Sodium Chloride () 25,000 unit in 250 mls @ 0 mls/hr IVCONT .Q0M [facility]; Protocol Last Admin: 03/22/22 22:48 Dose: 14 units/kg/hr, 10.98 mls/hr Documented by: Insulin Human Lispro (Insulin Lispro 100 Unit/Ml 3 Ml Vial) 0 unit SUBCUT QIDACHS [facility]; Protocol Last Admin: 03/23/22 08:57 Dose: Not Given Documented by: Melatonin (Melatonin 3 Mg Tablet) 6 mg PO BEDTIME PRN PRN Reason: Insomnia Nitroglycerin (Nitroglycerin 0.4 Mg Tab.Subl) 0.4 mg SUBLINGUAL Q5MX3 PRN PRN Reason: Chest Pain Pharmacy Consult (Consult Rx Perform Med Rec) 1 each MISCELLANE ONCE PRN PRN Reason: Consult order Senna (Sennosides 8.6 Mg Tablet) 17.2 mg PO BEDTIME PRN PRN Reason: Constipation Sodium Chloride (0.9 % Sodium Chloride Flush 3 Ml Syringe) 3 [facility] Last Admin: 03/23/22 09:01 Dose: Not Given Documented by: Home Medications Medication Instructions Recorded Confirmed Last Taken Type lorazepam 0.5 mg tablet 0.5 mg PO BID PRN 09/14/20 03/23/22 03/22/22 History allopurinol 100 mg tablet 100 mg PO DAILY 09/16/20 03/23/22 03/22/22 History aspirin 81 mg tablet,delayed 81 mg PO DAILY 09/16/20 03/23/22 03/22/22 History release insulin degludec 100 unit/mL (3 32 unit SUBCUT DAILY ml 11/13/20 03/23/22 03/22/22 History mL) subcutaneous pen (Tresiba FlexTouch U-100 insulin) ferrous sulfate 325 mg (65 mg 325 mg PO DAILY 12/22/20 03/23/22 03/22/22 History iron) tablet (iron) tamsulosin 0.4 mg capsule 0.4 mg PO DAILY@1700 12/22/20 03/23/22 03/22/22 History insulin aspart U-100 100 unit/mL See Rx Instructions .ROUTE .COMPLEX 01/08/21 03/23/22 03/22/22 History (3 mL) subcutaneous pen (Novolog Flexpen U-100 Insulin aspart) melatonin 5 mg tablet 5 mg PO BEDTIME PRN 01/08/21 03/23/22 03/22/22 History nitroglycerin 0.4 mg sublingual 0.4 mg SUBLINGUAL Q5M PRN 01/08/21 03/23/2212/13 History tablet gabapentin 100 mg capsule 200 mg PO TID 03/06/21 03/23/22 03/22/22 History metoclopramide HCl 5 mg tablet 5 mg PO TID 03/20/21 03/23/22 03/22/22 History meloxicam 7.5 mg tablet 1 tab PO DAILY 01/10/22 03/23/22 03/22/22 History pantoprazole 40 mg tablet,delayed 1 tab PO BID 01/10/22 03/23/22 03/22/22 History release trazodone 50 mg tablet 0.5 tab PO BEDTIME PRN 01/10/22 03/23/22 03/22/22 History atorvastatin 80 mg tablet 80 mg PO BEDTIME 01/21/22 03/23/22 03/22/22 History linagliptin 5 mg tablet (Tradjenta) 5 mg PO DAILY 01/21/22 03/23/22 03/22/22 History metoprolol succinate 25 mg 1 tab PO DAILY 02/19/22 03/23/22 03/22/22 History tablet,extended release 24 hr acetaminophen 500 mg tablet 1 tab PO Q6H PRN 03/23/22 03/23/22 03/22/22 History cholecalciferol (vitamin D3) 25 1 cap PO DAILY 03/23/22 03/23/22 03/22/22 History mcg (1,000 unit) capsule Physical Exam Vital Signs: Vital Signs: Last Vital Signs Temp 97.9 F 03/23/22 11:15 Pulse 71 03/23/22 11:15 Resp 20 03/23/22 11:15 BP 158/72 H 03/23/22 11:15 Pulse Ox 97 03/23/22 11:15 BMI result Body Mass Index 31.6 GENERAL APPEARANCE: in no acute distress, pleasant. NECK: no carotid bruit, no jugular venous distention. SKIN: no suspicious lesions, warm and dry. HEART: no murmurs, regular rate and rhythm. Left-sided chest wall tenderness reproducing the same chest pain. LUNGS: clear to auscultation bilaterally. ABDOMEN: soft, nontender. EXTREMITIES: no edema. PERIPHERAL PULSES: equal. NEUROLOGIC: No gross deficits, AAO X 3 Objective Labs and Meds Result diagrams: 03/23/22 08:42 03/23/22 05:50 Lab results: Laboratory Results - last 24 hr 03/22/22 03/22/22 03/22/22 18:35 18:37 18:37 WBC 13.3 H RBC 3.62 L Hgb 11.1 L Hct 34.5 L MCV 95.3 MCH 30.7 MCHC 32.2 RDW 14.2 Plt Count 244 D MPV 10.4 Immature Gran % (Auto) 0.8 H Neut % (Auto) 82.3 H Lymph % (Auto) 11.5 L [place] % (Auto) 4.4 Eos % (Auto) 0.8 Baso % (Auto) 0.2 Lymph # (Auto) 1.5 [place] # (Auto) 0.6 Eos # (Auto) 0.1 Baso # (Auto) 0.0 Abs Immat Gran (auto) 0.10 H Absolute Neuts (auto) 11.0 H Absolute Nucleated RBC 0.000 Nucleated RBC % (auto) 0.0 PT INR aPTT Heparin Protocol Sodium 138 Potassium 4.9 Chloride 105 Carbon Dioxide 21 L Anion Gap 17 BUN 67 H Creatinine 2.98 H Estim Creat Clear Calc 18.4 Estimated GFR 16 POC Glucose Random Glucose 286 H Calcium 9.0 D Total Bilirubin 0.5 AST 16 ALT 12 Alkaline Phosphatase 109 D Troponin I High Sens 149.9 H* D Total Protein 7.6 Albumin 3.7 COVID-19 ([facility]) COVID-19 Clin Com 03/22/22 03/22/22 03/23/22 21:14 21:15 05:50 WBC RBC Hgb Hct MCV MCH MCHC RDW Plt Count MPV Immature Gran % (Auto) Neut % (Auto) Lymph % (Auto) [place] % (Auto) Eos % (Auto) Baso % (Auto) Lymph # (Auto) [place] # (Auto) Eos # (Auto) Baso # (Auto) Abs Immat Gran (auto) Absolute Neuts (auto) Absolute Nucleated RBC Nucleated RBC % (auto) PT 12.4 INR 1.1 aPTT Heparin Protocol 32.6 L 63.4 D Sodium Potassium Chloride Carbon Dioxide Anion Gap BUN Creatinine Estim Creat Clear Calc Estimated GFR POC Glucose Random Glucose Calcium Total Bilirubin AST ALT Alkaline Phosphatase Troponin I High Sens 141.0 H* Total Protein Albumin COVID-19 ([facility]) COVID-19 Clin Com 03/23/22 03/23/22 03/23/22 05:50 05:50 07:40 WBC 11.0 H RBC 3.62 L Hgb 11.0 L Hct 34.3 L MCV 94.8 MCH 30.4 MCHC 32.1 RDW 14.2 Plt Count 252 MPV 10.9 Immature Gran % (Auto) 0.6 H Neut % (Auto) 64.9 Lymph % (Auto) 23.5 [place] % (Auto) 8.4 Eos % (Auto) 2.3 Baso % (Auto) 0.3 Lymph # (Auto) 2.6 [place] # (Auto) 0.9 Eos # (Auto) 0.3 Baso # (Auto) 0.0 Abs Immat Gran (auto) 0.07 H Absolute Neuts (auto) 7.1 Absolute Nucleated RBC 0.000 Nucleated RBC % (auto) 0.0 PT INR aPTT Heparin Protocol Sodium 140 Potassium 4.8 Chloride 108 Carbon Dioxide 23 Anion Gap 14 BUN 74 H Creatinine 3.16 H Estim Creat Clear Calc 17.6 Estimated GFR 15 POC Glucose Random Glucose 124 H Calcium 8.9 Total Bilirubin AST ALT Alkaline Phosphatase Troponin I High Sens Total Protein Albumin COVID-19 ([facility]) Negative COVID-19 Clin Com See Note 03/23/22 03/23/22 03/23/22 08:42 08:42 08:42 WBC 9.7 RBC 3.61 L Hgb 10.9 L Hct 34.4 L MCV 95.3 MCH 30.2 MCHC 31.7 RDW 14.1 Plt Count 264 MPV 11.2 Immature Gran % (Auto) Neut % (Auto) Lymph % (Auto) [place] % (Auto) Eos % (Auto) Baso % (Auto) Lymph # (Auto) [place] # (Auto) Eos # (Auto) Baso # (Auto) Abs Immat Gran (auto) Absolute Neuts (auto) Absolute Nucleated RBC 0.000 Nucleated RBC % (auto) 0.0 PT 12.5 INR 1.1 aPTT Heparin Protocol Sodium Potassium Chloride Carbon Dioxide Anion Gap BUN Creatinine Estim Creat Clear Calc Estimated GFR POC Glucose Random Glucose Calcium Total Bilirubin AST ALT Alkaline Phosphatase Troponin I High Sens 154.4 H* Total Protein Albumin COVID-19 ([facility]I) COVID-19 Clin Com 03/23/22 08:53 WBC RBC Hgb Hct MCV MCH MCHC RDW Plt Count MPV Immature Gran % (Auto) Neut % (Auto) Lymph % (Auto) [place] % (Auto) Eos % (Auto) Baso % (Auto) Lymph # (Auto) [place] # (Auto) Eos # (Auto) Baso # (Auto) Abs Immat Gran (auto) Absolute Neuts (auto) Absolute Nucleated RBC Nucleated RBC % (auto) PT INR aPTT Heparin Protocol Sodium Potassium Chloride Carbon Dioxide Anion Gap BUN Creatinine Estim Creat Clear Calc Estimated GFR POC Glucose 113 Random Glucose Calcium Total Bilirubin AST ALT Alkaline Phosphatase Troponin I High Sens Total Protein Albumin COVID-19 ([facility]) COVID-19 Clin Com Imaging Radiologist's impression: Impressions Chest X-Ray 03/22/22 18:00 IMPRESSION: No acute cardiopulmonary findings. Assessment and Plan (1) Chest pain: Status: Acute (2) Autonomic dysfunction: Status: Acute (3) Chronic renal insufficiency: Status: Acute Plan 61-year-old female with complex issues including known bypass surgery, autonomic dysfunction due to diabetes and chronic renal insufficiency. She is presenting for chest pain reproducible over the chest wall. EKGs showing paced rhythm. High sensitivity troponin levels are mildly abnormal but flat. Again she has dysautonomia and blood pressure fluctuation. I think overall her troponins are quite nonspecific right now and with a creatinine of 3 this could just be related to CKD. I do not think she has acute coronary syndrome right now. Does not require further workup inpatient. Monitor blood pressure closely and if she has rising about 160 then we may have to try nitro paste. That appears can be wiped with alcohol wipes in case blood pressure dropped due to dysautonomia. Thank you for allowing me to participate in the care of your patient. Please feel free to contact me if you have any questions. Procedures Date of Service Date of Service: 03/23/22
[2022-03-23 11:39] LABS: Glucose, Whole Blood 131 mg/dL (60-115)
[2022-03-23 12:35] LABS: PTT Heparin Drip 94.7 SEC (53-77.9)
--- NOTE | 2022-03-23 13:42 | MHC.CM.PN ---
NURSE DEPARTMENT SUPERVISOR NOTE ELECTRONIC MEDICAL RECORD REVIEWED ALONG WITH CASE DISCUSSED WITH STAFF NURSE MET WITH PATIENT SHE LIVES IN APARTEMENT WITH HER AND HAS [facility] [employer] FOR RN BID LOCKED MED BOX AND HOME PHYSICAL THERAPY ,REPORTED SHE DOES NOT RECAL THE NAME OF HER PCP AND AND HAS HEALTH CARE PROXY REQGUEST COPY
[2022-03-23 16:17] LABS: Glucose, Whole Blood 137 mg/dL (60-115)
[2022-03-23 18:16] LABS: PTT Heparin Drip 60.8 SEC (53-77.9)
[2022-03-23] MEDS: Acetaminophen 325 MG TABLET 650 MG PO (19:49)
[2022-03-23] MEDS: Sennosides 8.6 MG TABLET 17.2 MG PO (19:50)
[2022-03-23] MEDS: 0.9 % Sodium Chloride Flush 3 ML SYRINGE IVFLUSH (19:50)
[2022-03-23 20:42] LABS: PTT Heparin Drip 67.7 SEC (53-77.9)
[2022-03-23 20:59] LABS: Glucose, Whole Blood 130 mg/dL (60-115)
[2022-03-23 21:02] LABS: Troponin-I High Sensitivity 110.5 ng/L (<3.5-17.0)
[2022-03-23] MEDS: traZODone HCL 25 MG HALFTAB PO (21:46)
[2022-03-23] MEDS: Omeprazole 20 MG CAPSULE.DR PO (21:46)
[2022-03-23] MEDS: Gabapentin 100 MG CAPSULE 200 MG PO (21:46)
[2022-03-23] MEDS: Metoclopramide HCl 5 MG TABLET 2.5 MG PO (21:47)
[2022-03-23] MEDS: Heparin Sodium,Porcine/1/2NS 25,000 UNIT/250 ML IV.SOLN 8.62 UNIT IVCONT (23:57)
[2022-03-24] MEDS: HYDROmorphone HCl 1 MG/ML SYRINGE 0.5 MG IVPUSH ×4 (00:05→16:35)
[2022-03-24] MEDS: LORazepam 0.5 MG TABLET PO (02:45)
[2022-03-24] MEDS: Acetaminophen 325 MG TABLET 650 MG PO (02:47)
--- NOTE | 2022-03-24 03:12 | PC.NURSE ---
Pt seen at shift change alert and oriented, c/o midsternal Chest pressure 9/10, worse with pressure applied, also c/o back pain, Dr. Guadarrama was updated, prn Dilaudid given, EKG done and forwarded to MD, labs drawn, pt noted asleep after, Critical troponin came at 110.5, result relayed to Dr. Guadarrama, Heparin drip maintained ,protocol followed.
[2022-03-24 03:37] LABS: PTT Heparin Drip 79.9 SEC (53-77.9)
[2022-03-24 07:20] VITALS: BP 135/61; PULSE 73; RESP 18; TEMP 36.1; O2SAT 96
[2022-03-24 07:46] LABS: Glucose, Whole Blood 140 mg/dL (60-115)
--- NOTE | 2022-03-24 08:28 | P.PNIM_ITS ---
Subjective Subjective Date of Service: 03/24/22 Interval History: светлана pains ,isa on ckd Review of Systems Patient denies any chest pain or shortness of breath or abdominal pain or fever chills P.o. intake seems low. Physical Exam Vital Signs: Vital Signs: Last Vital Signs Temp 97.0 F 03/24/22 07:20 Pulse 73 03/24/22 07:20 Resp 18 03/24/22 07:20 BP 135/61 03/24/22 07:20 Pulse Ox 96 03/24/22 07:20 BMI result Body Mass Index 31.6 Appearance: Alert.? Oriented X3.? not in distress.? cvs: rrr, [id number] , no murmur res: clear to auscultation ,no rhonchii or wheezing abd: no rebound or guarding ,nt, bs present. ext pulses present , no cyanosis . neuro: axo3 , nonfocal. Objective Data Active Medications Acetaminophen (Acetaminophen 325 Mg Tablet) 650 mg PO Q6H PRN PRN Reason: Pain, Mild (Pain Scale 1-3) Last Admin: 03/24/22 02:47 Dose: 650 mg Documented by: DWAYNE Allopurinol (Allopurinol 100 Mg Tablet) 50 mg PO Q2D@0900 [facility] Aspirin (Aspirin Enteric Coated 81 Mg Tablet.) 81 mg PO DAILY [facility] Atorvastatin Calcium (Atorvastatin Calcium 80 Mg Tablet) 80 mg PO BEDTIME [facility] Dextrose (Dextrose 50 % 25 Gm/50 Ml Syringe) 25 gm IVPUSH Q15M PRN; Protocol PRN Reason: per Hypoglycemia Standing Ord. Gabapentin (Gabapentin 100 Mg Capsule) 200 mg PO TID [facility] Last Admin: 03/23/22 21:46 Dose: 200 mg Documented by: DWAYNE Glucose (Glucose Gel 15 Gm Gel..Gram.) 15 gm PO Q15M PRN; Protocol PRN Reason: per Hypoglycemia Standing Ord. Heparin Sodium (Porcine) (Heparin Sodium,Porcine 5,000 Unit/Ml Vial) 3,100 unit 40 unit/kg (3100 unit) IVPUSH PROTOCOL BOLUS PRN; Protocol PRN Reason: 40 unit/kg - Heparin Protocol Heparin Sodium (Porcine) (Heparin Sodium,Porcine 5,000 Unit/Ml Vial) 6,300 unit 80 unit/kg (6300 unit) IVPUSH PROTOCOL BOLUS PRN; Protocol PRN Reason: 80 unit/kg - Heparin Protocol Hydromorphone HCl (Hydromorphone Hcl 1 Mg/Ml Syringe) 0.5 mg IVPUSH Q4H PRN; Protocol PRN Reason: Pain, Severe (Pain Scale 7-10) Last Admin: 03/24/22 05:48 Dose: 0.5 mg Documented by: DWAYNE Heparin Sodium/Sodium Chloride () 25,000 unit in 250 mls @ 0 mls/hr IVCONT .Q0M [facility]; Protocol Last Titration: 03/24/22 03:58 Dose: 9 units/kg/hr, 7.06 mls/hr Documented by: DWAYNE Cosigned by: RHIANNA Insulin Human Lispro (Insulin Lispro 100 Unit/Ml 3 Ml Vial) 0 unit SUBCUT QIDACHS [facility]; Protocol Last Admin: 03/24/22 08:19 Dose: Not Given Documented by: AILYN Non-Admin Reason: No Insulin Coverage Lorazepam (Lorazepam 0.5 Mg Tablet) 0.5 mg PO BID PRN PRN Reason: Anxiety Last Admin: 03/24/22 02:45 Dose: 0.5 mg Documented by: DWAYNE Melatonin (Melatonin 3 Mg Tablet) 6 mg PO BEDTIME PRN PRN Reason: Insomnia Metoclopramide HCl (Metoclopramide Hcl 5 Mg Tablet) 2.5 mg PO TID [facility] Last Admin: 03/23/22 21:47 Dose: 2.5 mg Documented by: DWAYNE Metoprolol Succinate (Metoprolol Succinate Er 25 Mg Tab.Er.24h) 25 mg PO DAILY [facility]; Protocol Nitroglycerin (Nitroglycerin 0.4 Mg Tab.Subl) 0.4 mg SUBLINGUAL Q5MX3 PRN PRN Reason: Chest Pain Omeprazole (Omeprazole 20 Mg Capsule.Dr) 20 mg PO BID [facility] Last Admin: 03/23/22 21:46 Dose: 20 mg Documented by: DWAYNE Pharmacy Consult (Consult Rx Perform Med Rec) 1 each MISCELLANE ONCE PRN PRN Reason: Consult order Senna (Sennosides 8.6 Mg Tablet) 17.2 mg PO BEDTIME PRN PRN Reason: Constipation Last Admin: 03/23/22 19:50 Dose: 17.2 mg Documented by: DWAYNE Sodium Chloride (0.9 % Sodium Chloride Flush 3 Ml Syringe) 3 ml IVFLUSH QSHIFT [facility] Last Admin: 03/23/22 19:50 Dose: 3 ml Documented by: DWAYNE Tamsulosin HCl (Tamsulosin Hcl 0.4 Mg Capsule) 0.4 mg PO DAILY@1700 [facility] Trazodone HCl (Trazodone Hcl 25 Mg Halftab) 25 mg PO BEDTIME PRN PRN Reason: Sleep Last Admin: 03/23/22 21:46 Dose: 25 mg Documented by: DWAYNE Vitamin D (Cholecalciferol (Vitamin D3) 25 Mcg Tablet) 25 mcg PO DAILY [facility] Labs CBC & Chem 7: 03/23/22 08:42 03/23/22 05:50 Labs: Laboratory Results - last 24 hr 03/23/22 03/23/22 03/23/22 08:42 08:42 08:42 MCV 95.3 MCH 30.2 MCHC 31.7 RDW 14.1 Plt Count 264 MPV 11.2 Absolute Nucleated RBC 0.000 Nucleated RBC % (auto) 0.0 PT 12.5 INR 1.1 aPTT Heparin Protocol POC Glucose Troponin I High Sens 154.4 H* 03/23/22 03/23/22 03/23/22 08:53 11:13 11:56 MCV MCH MCHC RDW Plt Count MPV Absolute Nucleated RBC Nucleated RBC % (auto) PT INR aPTT Heparin Protocol 94.7 H D POC Glucose 113 131 H Troponin I High Sens 03/23/22 03/23/22 03/23/22 15:53 17:39 20:13 MCV MCH MCHC RDW Plt Count MPV Absolute Nucleated RBC Nucleated RBC % (auto) PT INR aPTT Heparin Protocol 60.8 D 67.7 POC Glucose 137 H Troponin I High Sens 03/23/22 03/23/22 03/24/22 20:13 20:51 03:12 MCV MCH MCHC RDW Plt Count MPV Absolute Nucleated RBC Nucleated RBC % (auto) PT INR aPTT Heparin Protocol 79.9 H POC Glucose 130 H Troponin I High Sens 110.5 H* 03/24/22 07:19 MCV MCH MCHC RDW Plt Count MPV Absolute Nucleated RBC Nucleated RBC % (auto) PT INR aPTT Heparin Protocol POC Glucose 140 H Troponin I High Sens Assessment and Plan (1) ISA (acute kidney injury): Status: Acute Plan 61-year-old female with a past medical history of HTN, HLD, DM, CAD s/p CABG, HF pEF, Hx Cardiac pacemaker, diabetic gastropathy, irritable bowel syndrome, history of CVA,Arthritis, anemia, CKD, Hx Amputation presented to the hospital with a chief complaint of chest pain. 1.Chest pain:? Troponins indeterminate likely from CKD cardio eval noted -less likely cardiac pain, off heparin drip continue asa , statin ,bb 2.Mild ISA on CKD:? Patient baseline creatinine around 2.4-2.6.? Creatinine on presentation is 3.1.? Encourage oral hydration.? Avoid nephrotoxins. added gentle hydration nephro eval 3.History of CHF:? Currently stable.? Continue home medications, hold diurectic s. 4.History of diabetes:? Insulin sliding scale. DVT prophylaxis:? s/c heaprin inpatient for isa on ckd on ivf , nephro eval. Quality Stroke Does the patient have a stroke diagnosis?: No VTE Prior VTE?: No VTE Risk Level:: Medical - moderate - high VTE Device Contraindication: Treatment Not Indicated VTE Drug Contraindication: N/A - Med Ordered
[2022-03-24] MEDS: 0.9 % Sodium Chloride Flush 3 ML SYRINGE IVFLUSH ×2 (08:54→16:36)
[2022-03-24] MEDS: Cholecalciferol (Vitamin D3) 25 MCG TABLET PO (08:57)
[2022-03-24] MEDS: Atorvastatin Calcium 80 MG TABLET PO ×2 (08:57→20:52)
[2022-03-24] MEDS: Aspirin Enteric Coated 81 MG TABLET.DR PO (08:57)
[2022-03-24] MEDS: Omeprazole 20 MG CAPSULE.DR PO ×2 (08:57→20:52)
[2022-03-24] MEDS: Gabapentin 100 MG CAPSULE 200 MG PO ×3 (08:57→20:52)
[2022-03-24] MEDS: Metoclopramide HCl 5 MG TABLET 2.5 MG PO ×3 (08:58→20:51)
[2022-03-24] MEDS: Metoprolol Succinate ER 25 MG TAB.ER.24H PO (08:58)
[2022-03-24] MEDS: allopurinoL 100 MG TABLET 50 MG PO (08:58)
[2022-03-24 10:45] LABS: PTT Heparin Drip 40.2 SEC (53-77.9)
[2022-03-24 11:50] VITALS: BP 115/46; PULSE 80; RESP 18; TEMP 36.1; O2SAT 98
[2022-03-24 11:56] LABS: Glucose, Whole Blood 129 mg/dL (60-115)
--- NOTE | 2022-03-24 12:58 | MHC.CM.PN ---
NURSE CASE MANAGEMENT B NOTE ELECTRONIC MEEICAL RECORD REVIEWED ALONG WITH CASE DISUCSSED WITH [facility] NURSE AND HOSPITLAIDT MET WITH PATIENT TODAY PER HOSPITL;AIST PATIENT IS BEING WORKED UP FOR ACUTE KIDNEY INJURY ON CKD RENAL CONSULT CALLED , GENTLE HYDRATION AND HOLDING LASIX AT THIS TIME IV HEPARIN HAS BEEN REMOVED, PATIENT UNDERSTANDS HSHE WILL BE HERE FOR M1-2 MORTE DAYS DISCHARGE PLAN HOME WITH [facility] N[facility] BID MEDICATION MANAGEMENT AND RESUMPTTION OF HER PT [facility] FOR MECHANICAL ASSEMBLY PCP DR SHULTZ [facility] [phone] TRANSPORTATION FAMILY
--- NOTE | 2022-03-24 15:42 | PM.PNNEP ---
Subjective Subjective Date of Service: 03/24/22 Interval history: seen and examined Physical Exam Vital Signs: Vital Signs: Last Vital Signs Temp 96.9 F 03/24/22 11:50 Pulse 80 03/24/22 11:50 Resp 18 03/24/22 11:50 BP 115/46 L 03/24/22 11:50 Pulse Ox 98 03/24/22 11:50 BMI result Body Mass Index 31.6 Objective Data Labs CBC & Chem 7: 03/23/22 08:42 03/23/22 05:50 Labs: Laboratory Results - last 24 hr 03/23/22 03/23/22 03/23/22 15:53 17:39 20:13 aPTT Heparin Protocol 60.8 D 67.7 POC Glucose 137 H Troponin I High Sens 03/23/22 03/23/22 03/24/22 20:13 20:51 03:12 aPTT Heparin Protocol 79.9 H POC Glucose 130 H Troponin I High Sens 110.5 H* 03/24/22 03/24/22 03/24/22 07:19 10:08 11:50 aPTT Heparin Protocol 40.2 L D POC Glucose 140 H 129 H Troponin I High Sens Procedures Date of Service Date of Service: 03/24/22 Assessment & Plan Assessment and plan (1) ISA (acute kidney injury): Status: Acute (2) CKD (chronic kidney disease) stage 3, GFR 30-59 ml/min: Status: Acute Plan ISA due to compromised kidney perfusion and tubular stress hypotensive earlier on NSAID at home (Meloxicam) benign urine sediment need to rule out obstruction known CKD baseline Scr 1.5-2 mg/dl h/o HFpEF not hypervolemic REC urine sodium IVF bladder scan follow kelly function and electrolytes Time Spent With Patient Time: Total time spent is greater than 50% in coordination of care (as documented) at patient's floor/unit and/or counseling patient: Progress Note: Quality Stroke Does the patient have a stroke diagnosis?: No
[2022-03-24 16:00] VITALS: BP 128/61; PULSE 68; PULSE 73; RESP 18; TEMP 36.4; O2SAT 92; O2SAT 95
[2022-03-24 16:26] LABS: Glucose, Whole Blood 240 mg/dL (60-115)
[2022-03-24] MEDS: Heparin Sodium,Porcine 5,000 UNIT/ML VIAL 5000 UNIT SUBCUT (16:33)
[2022-03-24] MEDS: Tamsulosin HCL 0.4 MG CAPSULE PO (16:35)
[2022-03-24] MEDS: Insulin Lispro 100 UNIT/ML 3 ML VIAL SUBCUT ×2 (16:43→20:52)
[2022-03-24] MEDS: 0.9 % Sodium Chloride 1,000 ML 70 ML IVCONT (16:51)
[2022-03-24 19:16] VITALS: BP 119/58; PULSE 75; RESP 18; TEMP 36.4; O2SAT 98
[2022-03-24 19:21] LABS: Anion Gap 16 (12-20); Blood Urea Nitrogen 85 mg/dL (9-16); Calcium 8.6 mg/dL (8.4-10.2); Carbon Dioxide 20 mmol/L (22-29); Chloride 103 mmol/L (96-108); Creatinine Clr Calc Pharmacy 13.6; Estimated Glomerular Filt Rate 11; Glucose Random 288 mg/dL (60-115); Potassium 4.9 mmol/L (3.3-5.1); Sodium 134 mmol/L (135-145)
[2022-03-24 19:56] VITALS: BP 128/61; PULSE 68; RESP 18; TEMP 36.4; O2SAT 92
[2022-03-24 20:02] LABS: Glucose, Whole Blood 264 mg/dL (60-115)
[2022-03-24 23:29] VITALS: BP 162/70; PULSE 70; RESP 18; TEMP 36.4; O2SAT 94
[2022-03-25] MEDS: HYDROmorphone HCl 1 MG/ML SYRINGE 0.5 MG IVPUSH ×4 (00:21→14:27)
[2022-03-25] MEDS: Heparin Sodium,Porcine 5,000 UNIT/ML VIAL 5000 UNIT SUBCUT ×2 (00:21→08:20)
[2022-03-25] MEDS: 0.9 % Sodium Chloride Flush 3 ML SYRINGE IVFLUSH ×2 (00:22→08:25)
[2022-03-25] MEDS: 0.9 % Sodium Chloride 1,000 ML 70 ML IVCONT ×2 (02:56→12:13)
[2022-03-25 03:29] VITALS: BP 141/71; PULSE 75; RESP 18; TEMP 36.1; O2SAT 95
[2022-03-25 06:48] LABS: Anion Gap 13 (12-20); Blood Urea Nitrogen 72 mg/dL (9-16); Calcium 8.6 mg/dL (8.4-10.2); Carbon Dioxide 22 mmol/L (22-29); Chloride 105 mmol/L (96-108); Creatinine Clr Calc Pharmacy 19.4; Estimated Glomerular Filt Rate 17; Glucose Random 225 mg/dL (60-115); Potassium 5.2 mmol/L (3.3-5.1); Sodium 135 mmol/L (135-145)
[2022-03-25 07:31] VITALS: BP 140/73; PULSE 66; RESP 20; TEMP 36.4; O2SAT 95
[2022-03-25 07:43] LABS: Glucose, Whole Blood 181 mg/dL (60-115)
--- NOTE | 2022-03-25 08:12 | HO.PM.IMPN ---
Subjective Subjective Date of Service: 03/25/22 Interval History: raquel onckd Physical Exam Vital Signs: Vital Signs: Last Vital Signs Temp 97.6 F 03/25/22 07:31 Pulse 66 03/25/22 07:31 Resp 20 03/25/22 07:31 BP 140/73 H 03/25/22 07:31 Pulse Ox 95 03/25/22 07:31 BMI result Body Mass Index 31.6 Objective Data Active Medications Acetaminophen (Acetaminophen 325 Mg Tablet) 650 mg PO Q6H PRN PRN Reason: Pain, Mild (Pain Scale 1-3) Last Admin: 03/24/22 02:47 Dose: 650 mg Documented by: DWAYNE Allopurinol (Allopurinol 100 Mg Tablet) 50 mg PO Q2D@0900 [facility] Last Admin: 03/24/22 08:58 Dose: 50 mg Documented by: AILYN Aspirin (Aspirin Enteric Coated 81 Mg Tablet.) 81 mg PO DAILY [facility] Last Admin: 03/24/22 08:57 Dose: 81 mg Documented by: AILYN Atorvastatin Calcium (Atorvastatin Calcium 80 Mg Tablet) 80 mg PO BEDTIME [facility] Last Admin: 03/24/22 20:52 Dose: 80 mg Documented by: AILYN Dextrose (Dextrose 50 % 25 Gm/50 Ml Syringe) 25 gm IVPUSH Q15M PRN; Protocol PRN Reason: per Hypoglycemia Standing Ord. Gabapentin (Gabapentin 100 Mg Capsule) 200 mg PO TID [facility] Last Admin: 03/24/22 20:52 Dose: 200 mg Documented by: AILYN Glucose (Glucose Gel 15 Gm Gel..Gram.) 15 gm PO Q15M PRN; Protocol PRN Reason: per Hypoglycemia Standing Ord. Heparin Sodium (Porcine) (Heparin Sodium,Porcine 5,000 Unit/Ml Vial) 5,000 unit SUBCUT Q8H [facility] Last Admin: 03/25/22 00:21 Dose: 5,000 unit Documented by: ED Hydromorphone HCl (Hydromorphone Hcl 1 Mg/Ml Syringe) 0.5 mg IVPUSH Q4H PRN; Protocol PRN Reason: Pain, Severe (Pain Scale 7-10) Last Admin: 03/25/22 05:13 Dose: 0.5 mg Documented by: ED Sodium Chloride (Ns) 1,000 mls @ 100 mls/hr IVCONT .Q10H [facility] Last Admin: 03/25/22 02:56 Dose: 70 mls/hr Documented by: ED Insulin Human Lispro (Insulin Lispro 100 Unit/Ml 3 Ml Vial) 0 unit SUBCUT QIDACHS [facility]; Protocol Last Admin: 03/24/22 20:52 Dose: 6 unit Documented by: AILYN Lorazepam (Lorazepam 0.5 Mg Tablet) 0.5 mg PO BID PRN PRN Reason: Anxiety Last Admin: 03/24/22 02:45 Dose: 0.5 mg Documented by: DWAYNE Melatonin (Melatonin 3 Mg Tablet) 6 mg PO BEDTIME PRN PRN Reason: Insomnia Metoclopramide HCl (Metoclopramide Hcl 5 Mg Tablet) 2.5 mg PO TID [facility] Last Admin: 03/24/22 20:51 Dose: 2.5 mg Documented by: AILYN Metoprolol Succinate (Metoprolol Succinate Er 25 Mg Tab.Er.24h) 25 mg PO DAILY [facility]; Protocol Last Admin: 03/24/22 08:58 Dose: 25 mg Documented by: AILYN Nitroglycerin (Nitroglycerin 0.4 Mg Tab.Subl) 0.4 mg SUBLINGUAL Q5MX3 PRN PRN Reason: Chest Pain Omeprazole (Omeprazole 20 Mg Capsule.Dr) 20 mg PO BID [facility] Last Admin: 03/24/22 20:52 Dose: 20 mg Documented by: AILYN Pharmacy Consult (Consult Rx Perform Med Rec) 1 each MISCELLANE ONCE PRN PRN Reason: Consult order Senna (Sennosides 8.6 Mg Tablet) 17.2 mg PO BEDTIME PRN PRN Reason: Constipation Last Admin: 03/23/22 19:50 Dose: 17.2 mg Documented by: DWAYNE Sodium Chloride (0.9 % Sodium Chloride Flush 3 Ml Syringe) 3 ml IVFLUSH QSHIFT [facility] Last Admin: 03/25/22 00:22 Dose: 3 ml Documented by: ED Sodium Zirconium Cyclosilicate (Sodium Zirconium Cyclosilicate 5 Gm Powd.Pack) 5 gm PO ONCE ONE Stop: 03/25/22 08:12 Tamsulosin HCl (Tamsulosin Hcl 0.4 Mg Capsule) 0.4 mg PO DAILY@1700 [facility] Last Admin: 03/24/22 16:35 Dose: 0.4 mg Documented by: AILYN Trazodone HCl (Trazodone Hcl 25 Mg Halftab) 25 mg PO BEDTIME PRN PRN Reason: Sleep Last Admin: 03/23/22 21:46 Dose: 25 mg Documented by: DWAYNE Vitamin D (Cholecalciferol (Vitamin D3) 25 Mcg Tablet) 25 mcg PO DAILY [facility] Last Admin: 03/24/22 08:57 Dose: 25 mcg Documented by: AILYN Labs CBC & Chem 7: 03/23/22 08:42 03/25/22 05:18 Labs: Laboratory Results - last 24 hr 03/24/22 03/24/22 03/24/22 10:08 11:50 16:08 aPTT Heparin Protocol 40.2 L D Anion Gap Estim Creat Clear Calc Estimated GFR POC Glucose 129 H 240 H Random Glucose Calcium 03/24/22 03/24/22 03/25/22 17:50 19:18 05:18 aPTT Heparin Protocol Anion Gap 16 13 Estim Creat Clear Calc 13.6 19.4 Estimated GFR 11 17 POC Glucose 264 H Random Glucose 288 H 225 H Calcium 8.6 8.6 03/25/22 07:35 aPTT Heparin Protocol Anion Gap Estim Creat Clear Calc Estimated GFR POC Glucose 181 H Random Glucose Calcium Quality Stroke Does the patient have a stroke diagnosis?: No VTE Prior VTE?: No VTE Risk Level:: Medical - moderate - high VTE Device Contraindication: Treatment Not Indicated VTE Drug Contraindication: N/A - Med Ordered
[2022-03-25] MEDS: Insulin Lispro 100 UNIT/ML 3 ML VIAL SUBCUT ×2 (08:20→12:12)
[2022-03-25] MEDS: Gabapentin 100 MG CAPSULE 200 MG PO ×2 (08:22→14:26)
[2022-03-25] MEDS: Metoclopramide HCl 5 MG TABLET 2.5 MG PO ×2 (08:22→14:26)
[2022-03-25] MEDS: Metoprolol Succinate ER 25 MG TAB.ER.24H PO (08:23)
[2022-03-25] MEDS: Aspirin Enteric Coated 81 MG TABLET.DR PO (08:23)
[2022-03-25] MEDS: Omeprazole 20 MG CAPSULE.DR PO (08:24)
[2022-03-25] MEDS: Cholecalciferol (Vitamin D3) 25 MCG TABLET PO (08:24)
--- NOTE | 2022-03-25 09:13 | P.CDIC_ITS ---
CDI Concurrent Query Documentation Clarification: PHYSICIAN'S DOCUMENTATION REQUEST Date of Query: 03/25/22912 Patient Name: Lida Dia Admit Date: 03/22/22 Dear Doctor, A review of the medical record indicates additional documentation may be needed. Please review below and update the documentation accordingly. Clinical Indicators: The following clinical information was noted in the record: Risk Factors/Clinical Indicators/Treatments Nephrology note 03/24 - ISA due to compromised perfusion and tubular stress. Avoid nephrotoxins, encourage oral hydration. H&P 03/24 - baseline Cr 2.4 - 2.6 presentation Cr. 2.92. Hazy urine, pale, hypotensive 119/58 L, bolstered with normal saline. Cr - 4.09 on 03/24 with GFR 11 and Bun 85 Please clarify which of the following accurately represents the patient's renal status: * Acute renal failure with suspected ATN * Acute renal failure * Other (please specify) * Unable to determine Criteria for ISA* Stages of Chronic Kidney Disease* 1. Increase in serum creatinine by ? 0.3 mg/dL Level Description GFR (?26.5 micromol/L) within 48 hours, or G1 Normal or High > 90 2. Increase in serum creatinine to ?1.5 times baseline, G2 Mildly decreased 60 ? 89 which is known or presumed to have occurred within 7 days, or G3a Mildly to moderately decreased 45 ? 59 3. Urine volume <0.5 mL/kg/hour for six hours G3b Moderately to severely decreased 30 - 44 G4 Severely decreased 15 ? 29 G5 Kidney failure < 15 *Source: Kidney Disease: Improving Global Outcomes (KDIGO) 2012 Use of terms such as suspected, likely, concern for, or probable (associated with a specific diagnosis that is being evaluated, monitored, or treated as if it exists) are acceptable and can be coded in the inpatient setting, when documented at the time of discharge. Thank you, Shara Perez [facility], CDIS Extension: [phone] Please use your independent medical judgment in providing your response. THIS QUERY IS PART OF THE PERMANENT MEDICAL RECORD Provider Response: Other Other Diagnosis: isa on ckd
[2022-03-25] MEDS: Sodium Zirconium Cyclosilicate 5 GM POWD.PACK PO (09:56)
--- NOTE | 2022-03-25 10:47 | PM.PNNEP ---
Subjective Subjective Date of Service: 03/25/22 Interval history: seen and examined discussed with medical attending no complaints Physical Exam Vital Signs: Vital Signs: Last Vital Signs Temp 97.6 F 03/25/22 07:31 Pulse 66 03/25/22 07:31 Resp 20 03/25/22 07:31 BP 140/73 H 03/25/22 07:31 Pulse Ox 95 03/25/22 07:31 BMI result Body Mass Index 31.6 Const: General: no acute distress HEENT: Head: Yes normocephalic and Yes atraumatic Neck: Neck: Yes supple Resp: Auscultation: diminished lung sounds Cardio: Heart sounds: S1 normal heart sound present and S2 normal heart sound present GI: Palpation (GI): Soft to palpation and nontender Extrem: General: Yes no pedal edema Objective Data Labs CBC & Chem 7: 03/23/22 08:42 03/25/22 05:18 Labs: Laboratory Results - last 24 hr 03/24/22 03/24/22 03/24/22 10:08 11:50 16:08 aPTT Heparin Protocol 40.2 L D Sodium Potassium Chloride Carbon Dioxide Anion Gap BUN Creatinine Estim Creat Clear Calc Estimated GFR POC Glucose 129 H 240 H Random Glucose Calcium 03/24/22 03/24/22 03/25/22 17:50 19:18 05:18 aPTT Heparin Protocol Sodium 134 L 135 Potassium 4.9 5.2 H Chloride 103 105 Carbon Dioxide 20 L 22 Anion Gap 16 13 BUN 85 H 72 H Creatinine 4.09 H* 2.87 H Estim Creat Clear Calc 13.6 19.4 Estimated GFR 11 17 POC Glucose 264 H Random Glucose 288 H 225 H Calcium 8.6 8.6 03/25/22 07:35 aPTT Heparin Protocol Sodium Potassium Chloride Carbon Dioxide Anion Gap BUN Creatinine Estim Creat Clear Calc Estimated GFR POC Glucose 181 H Random Glucose Calcium Procedures Date of Service Date of Service: 03/25/22 Assessment & Plan Assessment and plan (1) ISA (acute kidney injury): Status: Acute (2) CKD (chronic kidney disease) stage 3, GFR 30-59 ml/min: Status: Acute Plan Scr better borderline elevated serum potassium ISA due to compromised kidney perfusion and tubular stress hypotensive earlier on NSAID at home (Meloxicam) benign urine sediment known CKD baseline Scr 1.5-2 mg/dl h/o HFpEF not hypervolemic REC continue IVF until dc sodium zirconium as needed avoid NSAID follow kidney function and electrolytes Time Spent With Patient Time: Total time spent is greater than 50% in coordination of care (as documented) at patient's floor/unit and/or counseling patient: Progress Note: Quality Stroke Does the patient have a stroke diagnosis?: No
--- NOTE | 2022-03-25 11:36 | PM.DS ---
DS: Providers Provider Date of Service: 03/25/22 Date of admission: 03/22/22 23:34 Primary care physician: Unknown Physician Consults: 03/23/22 07:15 Consult to Cardiology Routine Consulting Provider: Efren Diaz Reason for consultation: chest pain ? NSTEMI Has provider been notified: No 03/24/22 08:07 Consult to Nephrology Routine Consulting Provider: Fermin Marks Reason for consultation: isa on ckd Has provider been notified: No DS: Diagnosis Discharge Diagnosis (1) ISA (acute kidney injury): Status: Acute (2) CKD (chronic kidney disease) stage 3, GFR 30-59 ml/min: Status: Acute DS: Summary Hospital Course Hospital Course: 61-year-old female with a past medical history of HTN, HLD, DM, CAD s/p CABG, HFpEF, Hx Cardiac pacemaker, diabetic gastropathy, irritable bowel syndrome, history of CVA,Arthritis, anemia, CKD, Hx Amputation presented to the hospital with a chief complaint of chest pain. Patient reports the chest pain started around noon time, sharp in nature, nonradiating, associated mild lightheadedness, denies any shortness of breath.? Denies any nausea or vomiting.? Chest pain is intermittent in nature; worsens with deep inspiration.? Denies any fever chills cough.? Denies any GI symptoms.? Review of all other systems is negative except mentioned above. Hospital course: Patient came to the hospital because of chest tightness and mild elevation of heart enzymes: Patient was seen by heart doctor and thought to be elevated heart enzymes related to her chronic kidney disease. In addition patient had ISA on CKD: Which is improving significantly with hydration, hold lisinopril and Lasix and check BMP in 1 week- introduce Lasix and lisinopril slowly as renal function allows outpatient. Consider outpatient nephrology evaluation. mild hyperkalemia: Advise for low-potassium diet, also added Lokelma every other day, monitor BMP as above. Cardio may arrange their own appointment. Further management as per PCP. Time Spent with Patient Time attestation: Total time spent providing and/or coordinating discharge services: Discharge coordination time: Greater than 30 minutes Quality: Safe Use of Opioids Does Pt have an Active Cancer Diagnosis on the Problem List?: No Quality: Stroke Does the patient have a stroke diagnosis?: No Physical Exam Vital Signs: Vital Signs: Last Vital Signs Temp 97.6 F 03/25/22 07:31 Pulse 66 03/25/22 07:31 Resp 20 03/25/22 07:31 BP 140/73 H 03/25/22 07:31 Pulse Ox 95 03/25/22 07:31 BMI result Body Mass Index 31.6 Appearance: Alert.? Oriented X3.? not in distress.? cvs: rrr, [id number] , no murmur res: clear to auscultation ,no rhonchii or wheezing abd: no rebound or guarding ,nt, bs present. ext pulses present , no cyanosis . neuro: axo3 , nonfocal. DS: Data Data Completed and Pending Completed studies during hospitalization [Text1]: Procedures Insertion of Infusion Device into Right Basilic Vein, Percutaneous Approach (10/31/20) Transfusion of Nonautologous Red Blood Cells into Peripheral Vein, Percutaneous Approach (10/31/20) Labs on day of discharge: Laboratory Results - last 24 hr 03/24/22 03/24/22 03/24/22 11:50 16:08 17:50 Sodium 134 L Potassium 4.9 Chloride 103 Carbon Dioxide 20 L Anion Gap 16 BUN 85 H Creatinine 4.09 H* Estim Creat Clear Calc 13.6 Estimated GFR 11 POC Glucose 129 H 240 H Random Glucose 288 H Calcium 8.6 03/24/22 03/25/22 03/25/22 19:18 05:18 07:35 Sodium 135 Potassium 5.2 H Chloride 105 Carbon Dioxide 22 Anion Gap 13 BUN 72 H Creatinine 2.87 H Estim Creat Clear Calc 19.4 Estimated GFR 17 POC Glucose 264 H 181 H Random Glucose 225 H Calcium 8.6 Additional Comments Additional comments: XR/XR chest 1V IMPRESSION: No acute cardiopulmonary findings. ?NM/NM pul perfusion IMPRESSION: Normal radionuclide lung perfusion scan. ? Discharge Plan Discharge Patient Disposition: Home Health Service Discharge Diagnosis: isa on ckd,mild hyperkalemia Referrals: [facility] [Outside] - 1 Day (RESUMPTION OF SERVICES) Physician,Unknown J [Primary Care Provider] - 1 Week Discharge Medications: New Lokelma 5 gram powder in packet 5 g PO Q OTHER DAY Qty: 11 0RF Continued lorazepam 0.5 mg Tablet 0.5 mg PO BID PRN (Reason: Anxiety) 0RF allopurinol 100 mg Tablet 100 mg PO DAILY 0RF aspirin 81 mg Tablet,Delayed Release (Dr/Ec) 81 mg PO DAILY 0RF Hold Instructions: Resume on 01/13/21. tamsulosin 0.4 mg capsule 0.4 mg PO DAILY@1700 0RF ferrous sulfate [iron] 325 mg (65 mg iron) Tablet 325 mg PO DAILY 0RF insulin aspart U-100 [Novolog Flexpen U-100 Insulin] 100 unit/mL (3 mL) Insulin Pen See Rx Instructions unit .ROUTE .COMPLEX 0RF Rx Instructions: pt states she uses 8 units if BG <200 and 10 units when BG >200 nitroglycerin 0.4 mg Tablet, Sublingual 0.4 mg SUBLINGUAL Q5M PRN (Reason: Chest Pain) 0RF melatonin 5 mg Tablet 5 mg PO BEDTIME PRN (Reason: Sleep) 0RF gabapentin 100 mg capsule 200 mg PO TID 0RF trazodone 50 mg tablet 0.5 tab PO BEDTIME PRN (Reason: Sleep) 0RF pantoprazole 40 mg tablet,delayed release (DR/EC) 1 tab PO BID 0RF atorvastatin 80 mg tablet 80 mg PO BEDTIME 0RF Tradjenta 5 mg tablet 5 mg PO DAILY 0RF metoprolol succinate 25 mg tablet extended release 24 hr 1 tab PO DAILY 0RF acetaminophen 500 mg tablet 1 tab PO Q6H PRN (Reason: Pain) 0RF cholecalciferol (vitamin D3) 25 mcg (1,000 unit) capsule 1 cap PO DAILY 0RF metoclopramide HCl 5 mg tablet 5 mg PO TID 0RF Rx Instructions: with meals Tresiba FlexTouch U-100 100 unit/mL (3 mL) insulin pen 32 unit subcut DAILY 0RF Held furosemide 40 mg tablet 40 mg PO DAILY Qty: 90 3RF Hold Instructions: Resume on 03/27/22. meloxicam 7.5 mg tablet 1 tab PO DAILY 0RF Hold Instructions: Resume on 03/31/22. lisinopril 5 mg tablet 5 mg PO BEDTIME Qty: 0 0RF Hold Instructions: Resume on 03/31/22. Discharge Orders: Discharge Order (Routine); Ordered 03/25/22 Ordered By: Elvia Del Rio Diet: advance to usual diet Activity on Discharge: As tolerated Stand Alone Forms: Patient Portal Discharge page Other Ambulatory Orders: Basic Metabolic Panel (Routine) Timeframe: 1 Week Facility: [facility] - Location: Laboratory Ordered By: Elvia Del Rio Care Plan Goals: Patient came to the hospital because of chest tightness and mild elevation of heart enzymes: Patient was seen by heart doctor and thought to be elevated heart enzymes related to her chronic kidney disease. In addition patient had ISA on CKD: Which is improving significantly with hydration, hold lisinopril and Lasix and check BMP in 1 week- introduce Lasix and lisinopril slowly as renal function allows outpatient. Consider outpatient nephrology evaluation. Avoid nephrotoxic medications including NSAIDs. mild hyperkalemia: Advise for low-potassium diet, also added Lokelma every other day, monitor BMP as above. Cardio may arrange their own appointment. Further management as per PCP. Health Concerns: As above. Plan of Treatment: As above. Assessment: As above.
--- NOTE | 2022-03-25 11:44 | CONS_ITS ---
DATE OF SERVICE: 03/24/2022 HISTORY OF PRESENT ILLNESS: This is a 61-year-old patient who has a history of chronic kidney disease, who presented to the hospital with chest pain and was noted to have elevated serum creatinine. In summary, the patient reports chest pain that started on the day of the admission, but denies any shortness of breath. There is no report of any fevers, chills, nausea, vomiting, or diarrhea. The patient was subsequently admitted for further management and started on a heparin drip. PAST MEDICAL HISTORY: Remarkable for chronic kidney disease stage 3, congestive heart failure, hypertension, diabetes mellitus, coronary artery disease, COPD, CVA, anxiety, anemia, osteoarthritis, history of cardiac pacemaker placement, carpal tunnel syndrome, IBS. PAST SURGICAL HISTORY: Notable for bladder surgery, carpal tunnel release, coronary artery bypass graft surgery, cholecystectomy, endoscopy, knee surgery, tonsillectomy, appendectomy, Achilles tendon repair. MEDICATIONS: At home included allopurinol, aspirin, insulin, tamsulosin, gabapentin, meloxicam, trazodone, linagliptin, metoprolol. ALLERGIES: SHE IS ALLERGIC TO TETRACYCLINE. SOCIAL HISTORY: She is an ex-smoker. FAMILY HISTORY: Negative for kidney disease. REVIEW OF SYSTEMS: 10-point review of systems negative except pertinent in the history of present illness. PHYSICAL EXAMINATION: VITAL SIGNS: The blood pressure is 115/46, heart rate 80, respiratory rate 18, temperature afebrile. CONSTITUTIONAL: Looks her stated age. No acute distress. NEUROLOGIC: Alert, awake and normocephalic. NECK: Supple. LUNGS : Decreased breath sounds. CARDIOVASCULAR: S1, S2. No rub. ABDOMEN: Soft and nontender. EXTREMITIES: No pedal edema. LABORATORY DATA: Showed a white count of 9.7, hemoglobin 10.9, platelet count is 264. Sodium 140, potassium 4.8, chloride 108, CO2 of 23, BUN 74, creatinine 3.16. Urinalysis with 1 to 4 rbc's, 0 wbc's, trace protein. IMPRESSION: 1. Acute kidney injury. 2. Heart failure with preserved ejection fraction. 3. Chronic kidney disease stage 3. This patient with acute kidney injury, probably due to complex kidney perfusion and tubular stress in the setting of hypotension after review of her vital signs showed a systolic blood pressure down to the 90s. Her home medication list includes meloxicam and a combination of NSAID with hypotension may have disrupted the autoregulation of the kidney resulting in renal perfusion. Generally reasonable to rule out also obstructive uropathy. RECOMMENDATION: Would be to check a urine sodium. Continue with IV fluid. Perform bladder scan, and follow closely her kidney function and electrolytes. Thank you for allowing me to participate in the care of this patient. MD SHERRIE Alexis/[employer] / [phone]
[2022-03-25 12:00] VITALS: BP 142/67; PULSE 64; RESP 18; TEMP 36.6; O2SAT 96
--- NOTE | 2022-03-25 13:37 | MHC.CM.PN ---
Addendum entered by Ame Larson RN 03/25/22 15:11: chair castro arrived on unit, cm contacted dtr/marble setter/hcp sheldon at number on file and she is expecting pt, will assist getting her in the apt. Original Note: PT MEDICALLY CLEARED FOR D/C HOME W/RESUMP OF [facility] [employer] H[employer], PT REPORTS SHE DOES NOT HAVE TRANSPORT HOME AND REFERRAL PLACED FOR CHAIR CASTRO W/ACTION.
[2022-03-25 16:00] LABS: Glucose, Whole Blood 231 mg/dL (60-115)
== END 2022-03-25 15:10 | disposition home health service (06) | DRG 292 ==
LOC: HO.ED 18:12 → HO.EDOVER 23:39 → HO.S3 03-23 06:52
PROVIDERS: Internal Medicine; Admitting Provider Hospitalist; Emergency Provider Emergency Medicine; PCP Internal Medicine; Visit Provider Internal Medicine
DX: I13.0 Hypertensive heart and chronic kidney disease with heart failure and stage 1 through stage 4 chronic kidney disease, or unspecified chronic kidney disease (principal); I50.32 Chronic diastolic (congestive) heart failure; N17.9 Acute kidney failure, unspecified; E11.43 Type 2 diabetes mellitus with diabetic autonomic (poly)neuropathy; E11.22 Type 2 diabetes mellitus with diabetic chronic kidney disease; E87.5 Hyperkalemia; I25.10 Atherosclerotic heart disease of native coronary artery without angina pectoris; I95.9 Hypotension, unspecified; N18.30 Chronic kidney disease, stage 3 unspecified; Z20.822 Contact with and (suspected) exposure to COVID-19; Z87.891 Personal history of nicotine dependence; Z95.1 Presence of aortocoronary bypass graft; Z86.73 Personal history of transient ischemic attack (TIA), and cerebral infarction without residual deficits; Z95.0 Presence of cardiac pacemaker; Z88.1 Allergy status to other antibiotic agents; Z79.4 Long term (current) use of insulin; Z79.82 Long term (current) use of aspirin; Z79.899 Other long term (current) drug therapy
CPT/HCPCS: 36415; 71045; 80048; 80053; 82947; 84484; 85025; 85027; 85610; 85730; 87635; 93005; 96365; 96366; 96375; 96376; 99285; J1170; J2060

== ENCOUNTER 2022-03-27 06:57 | Emergency (ER) | payer OTHER, SELFPAY ==
--- NOTE | ~2022-03-27 | XR_ITS ---
EXAMINATION: XR CHEST CLINICAL INFORMATION: Chest pain. COMPARISON: 03/22/2022 chest radiograph. TECHNIQUE: Frontal view of the chest was obtained. FINDINGS: Support devices: Left-sided pacemaker device appears in good position. No significant abnormality is noted involving the heart, lungs, mediastinum, bony thorax or soft tissues. XR/XR chest 1V IMPRESSION: No acute cardiopulmonary process.
[2022-03-27 07:01] VITALS: BP 209/74; PULSE 74; RESP 14; TEMP 37.4; O2SAT 98; BMI 31.3
--- NOTE | 2022-03-27 07:30 | ED_ITS ---
HPI - Chest Pain General Chief Complaint: Chest Pain Stated Complaint: cp Time Seen by Provider: 03/27/22 07:12 History of Present Illness HPI narrative: Patient is a 61-year-old female with a history of diabetes, hypertension, hypercholesterolemia presented today with having an ME in 2019. Now having chest pain on the left side worse with touch. No diaphoresis. No coughing congestion or upper respiratory symptoms no fever no chills. Pain in fairly constant. Very similar to previous bouts of pain. Patient's symptoms started approximately 06:00 today. Related Data Home Medications Medication Instructions Recorded Confirmed lorazepam 0.5 mg tablet 0.5 mg PO BID PRN 09/14/20 03/23/22 allopurinol 100 mg tablet 100 mg PO DAILY 09/16/20 03/23/22 aspirin 81 mg tablet,delayed 81 mg PO DAILY 09/16/20 03/23/22 release insulin degludec 100 unit/mL (3 32 unit SUBCUT DAILY ml 11/13/20 03/23/22 mL) subcutaneous pen (Tresiba FlexTouch U-100 insulin) ferrous sulfate 325 mg (65 mg 325 mg PO DAILY 12/22/20 03/23/22 iron) tablet (iron) tamsulosin 0.4 mg capsule 0.4 mg PO DAILY@1700 12/22/20 03/23/22 insulin aspart U-100 100 unit/mL See Rx Instructions .ROUTE .COMPLEX 01/08/21 03/23/22 (3 mL) subcutaneous pen (Novolog Flexpen U-100 Insulin aspart) melatonin 5 mg tablet 5 mg PO BEDTIME PRN 01/08/21 03/23/22 nitroglycerin 0.4 mg sublingual 0.4 mg SUBLINGUAL Q5M PRN 01/08/21 03/23/22 tablet gabapentin 100 mg capsule 200 mg PO TID 03/06/21 03/23/22 metoclopramide HCl 5 mg tablet 5 mg PO TID 03/20/21 03/23/22 meloxicam 7.5 mg tablet 1 tab PO DAILY 01/10/22 03/23/22 pantoprazole 40 mg tablet,delayed 1 tab PO BID 01/10/22 03/23/22 release trazodone 50 mg tablet 0.5 tab PO BEDTIME PRN 01/10/22 03/23/22 atorvastatin 80 mg tablet 80 mg PO BEDTIME 01/21/22 03/23/22 linagliptin 5 mg tablet (Tradjenta) 5 mg PO DAILY 01/21/22 03/23/22 metoprolol succinate 25 mg 1 tab PO DAILY 02/19/22 03/23/22 tablet,extended release 24 hr acetaminophen 500 mg tablet 1 tab PO Q6H PRN 03/23/22 03/23/22 cholecalciferol (vitamin D3) 25 1 cap PO DAILY 03/23/22 03/23/22 mcg (1,000 unit) capsule Previous Rx's Medication Instructions Recorded furosemide 40 mg tablet 40 mg PO DAILY #90 tab 12/06/20 lisinopril 5 mg tablet 5 mg PO BEDTIME #0 tab 02/20/22 sodium zirconium cyclosilicate 5 5 g PO Q OTHER DAY #11 ea 03/25/22 gram oral powder packet (Lokelma) Allergies Allergy/AdvReac Type Severity Reaction Status Date / Time tetracycline [Tetracycline] Allergy Mild HIVES, Verified 12/27/21 12:22 anaphylaxis, anaphylaxis Review of Systems Review of Systems: Positive chest pain or shortness breath no diaphoresis. No coughing or congestion or respiratory symptoms Yes all other systems are reviewed and are negative [facility] Past Medical History Attestation statement: The following information was validated with the patient. Medical History Acute heart failure with preserved ejection fraction Anemia Anxiety Arthritis Cardiac pacemaker in situ Carpal tunnel syndrome CHF (congestive heart failure) Chronic heart failure with preserved ejection fraction (HFpEF) COPD exacerbation Coronary artery disease CVA (cerebral vascular accident) Diabetes Fall Gastritis Gastroparesis Gastroparesis GERD (gastroesophageal reflux disease) Headache Heart failure with preserved ejection fraction HLD (hyperlipidemia) HTN (hypertension) HTN (hypertension) Hypocalcemia Hypoxia IBS (irritable bowel syndrome) Knee pain, left Myocardial infarct Nausea and vomiting Orthostasis Renal failure Suprapatellar effusion of knee T2DM (type 2 diabetes mellitus) UTI (urinary tract infection) Surgical History H/O Achilles tendon repair History of appendectomy History of bladder surgery History of carpal tunnel release History of total hysterectomy with bilateral salpingo-oophorectomy (BSO) Hx of amputation Hx of CABG (~2019) Hx of cholecystectomy Hx of endoscopy Hx of knee surgery Hx of tonsillectomy Family History Family History Father No problems noted. Mother Diabetes Hypercholesteremia Hypertension Stroke Social History Social History Household Members: Family Household Members Other:: 1 Housing: Apartment Do you presently have visiting nurse or other home services: Yes Alcohol intake: never Patient Tobacco Use Status: Former Tobacco user Years Smoked: 20 Second Hand Smoke Exposure: No Advance Directives: Yes Advance Directives on File: Yes Advance Directives Date on File: 01/13/22 service: No Current occupational status: disabled Physical Exam Vital Signs: Vital Signs: Last Vital Signs Temp 99.3 F 03/27/22 07:01 Pulse 74 03/27/22 09:45 Resp 12 03/27/22 09:45 BP 177/73 H 03/27/22 09:45 Pulse Ox 93 03/27/22 09:45 BMI result Body Mass Index 31.3 Appearance: Alert. Oriented X3. No acute distress. Eyes: Pupils equal, round and reactive to light. ENT: Pharynx normal. Neck: Normal inspection. Neck supple. No lymph nodes noted. No crepitus CVS: Normal heart rate and rhythm. Pulses normal. Normal S1 and S2 Respiratory: No respiratory distress. Breath sounds normal. No Wheezing. No rales Abdomen: Soft and nontender. No rigidity. No distention. good BS x4 Skin: Skin warm and dry. Normal skin color. Normal skin turgor. Extremities: No lower extremity edema. Neurovascular intact to all extremities. No Lacerations. No Rash Neuro: Oriented X 3. No motor deficit. No sensory deficit. Moving all extermities. No slurred speech MDM - Chest Pain MDM Narrative Medical decision making narrative: Patient's EKG shows atrial sensing pattern heart rate 70 QRS QTC within normal limits is no acute ST segment elevation. Patient's chest pain is atypical in nature. Two sets of cardiac enzymes were essentially the same. Chest x-ray was negative. Patient's creatinine is baseline. Will discharge patient home. Medical Records Data Attestation: I reviewed the patient's medical records. Lab Data Attestation: I reviewed the patient's lab results. Result diagrams: 03/27/22 07:28 03/27/22 08:37 Labs: Lab Results 03/27/22 03/27/22 03/27/22 Range/Units 07:28 07:28 08:37 WBC 8.8 (4.8-10.8) X10*3/uL RBC 3.54 L (4.20-5.50) X10*6/uL Hgb 10.7 L (12.0-16.0) g/dl Hct 33.2 L (37.0-47.0) % MCV 93.8 (80.0-98.0) fL MCH 30.2 (27.0-33.0) pg MCHC 32.2 (31.0-35.0) g/dl RDW 14.0 (11.0-16.0) % Plt Count 199 (160-400) X10*3/uL MPV 11.4 (9.4-12.3) fL Immature Gran % (Auto) 0.8 H (0.0-0.4) % Neut % (Auto) 72.5 (45-73) % Lymph % (Auto) 16.7 L (20-40) % [place] % (Auto) 6.9 (2-11) % Eos % (Auto) 2.8 (0-4) % Baso % (Auto) 0.3 (0-2) % Lymph # (Auto) 1.5 (1.2-4.9) X10*3/uL [place] # (Auto) 0.6 (0.1-1.2) X10*3/uL Eos # (Auto) 0.3 (0.0-0.4) X10*3/uL Baso # (Auto) 0.0 (0.0-0.2) X10*3/uL Abs Immat Gran (auto) 0.07 H (0.00-0.03) X10*3/uL Absolute Neuts (auto) 6.4 (2.0-8.3) x10*3/uL Absolute Nucleated RBC 0.000 (0.0-0.012) X10*3/uL Nucleated RBC % (auto) 0.0 (0.0-0.2) /100WBC Smear Tech's Comments VERIFIED Sodium 139 (135-145) mmol/L Potassium 5.0 (3.3-5.1) mmol/L Chloride 109 H (96-108) mmol/L Carbon Dioxide 21 L (22-29) mmol/L Anion Gap 14 (12-20) BUN 44 H (9-16) mg/dL Creatinine 1.91 H (0.5-1.4) mg/dL Estim Creat Clear Calc 29.1 Estimated GFR 27 Random Glucose 251 H (60-115) mg/dL Calcium 9.6 D (8.4-10.2) mg/dL Troponin I High Sens 33.4 H D (<3.5-17.0) ng/L 03/27/22 Range/Units 10:28 WBC (4.8-10.8) X10*3/uL RBC (4.20-5.50) X10*6/uL Hgb (12.0-16.0) g/dl Hct (37.0-47.0) % MCV (80.0-98.0) fL MCH (27.0-33.0) pg MCHC (31.0-35.0) g/dl RDW (11.0-16.0) % Plt Count (160-400) X10*3/uL MPV (9.4-12.3) fL Immature Gran % (Auto) (0.0-0.4) % Neut % (Auto) (45-73) % Lymph % (Auto) (20-40) % [place] % (Auto) (2-11) % Eos % (Auto) (0-4) % Baso % (Auto) (0-2) % Lymph # (Auto) (1.2-4.9) X10*3/uL [place] # (Auto) (0.1-1.2) X10*3/uL Eos # (Auto) (0.0-0.4) X10*3/uL Baso # (Auto) (0.0-0.2) X10*3/uL Abs Immat Gran (auto) (0.00-0.03) X10*3/uL Absolute Neuts (auto) (2.0-8.3) x10*3/uL Absolute Nucleated RBC (0.0-0.012) X10*3/uL Nucleated RBC % (auto) (0.0-0.2) /100WBC Smear Tech's Comments Sodium (135-145) mmol/L Potassium (3.3-5.1) mmol/L Chloride (96-108) mmol/L Carbon Dioxide (22-29) mmol/L Anion Gap (12-20) BUN (9-16) mg/dL Creatinine (0.5-1.4) mg/dL Estim Creat Clear Calc Estimated GFR Random Glucose (60-115) mg/dL Calcium (8.4-10.2) mg/dL Troponin I High Sens 31.0 H (<3.5-17.0) ng/L Discharge Plan Discharge Clinical Impression: Chest pain Patient Disposition: Home, Self-Care Instructions: Chest Pain (ED) Prescriptions: No Action furosemide 40 mg tablet 40 mg PO DAILY Qty: 90 3RF Hold Instructions: Resume on 03/27/22. lorazepam 0.5 mg Tablet 0.5 mg PO BID PRN (Reason: Anxiety) 0RF allopurinol 100 mg Tablet 100 mg PO DAILY 0RF aspirin 81 mg Tablet,Delayed Release (Dr/Ec) 81 mg PO DAILY 0RF Hold Instructions: Resume on 01/13/21. tamsulosin 0.4 mg capsule 0.4 mg PO DAILY@1700 0RF ferrous sulfate [iron] 325 mg (65 mg iron) Tablet 325 mg PO DAILY 0RF insulin aspart U-100 [Novolog Flexpen U-100 Insulin] 100 unit/mL (3 mL) Insulin Pen See Rx Instructions unit .ROUTE .COMPLEX 0RF Rx Instructions: pt states she uses 8 units if BG <200 and 10 units when BG >200 nitroglycerin 0.4 mg Tablet, Sublingual 0.4 mg SUBLINGUAL Q5M PRN (Reason: Chest Pain) 0RF melatonin 5 mg Tablet 5 mg PO BEDTIME PRN (Reason: Sleep) 0RF gabapentin 100 mg capsule 200 mg PO TID 0RF trazodone 50 mg tablet 0.5 tab PO BEDTIME PRN (Reason: Sleep) 0RF meloxicam 7.5 mg tablet 1 tab PO DAILY 0RF Hold Instructions: Resume on 03/31/22. pantoprazole 40 mg tablet,delayed release (DR/EC) 1 tab PO BID 0RF atorvastatin 80 mg tablet 80 mg PO BEDTIME 0RF Tradjenta 5 mg tablet 5 mg PO DAILY 0RF metoprolol succinate 25 mg tablet extended release 24 hr 1 tab PO DAILY 0RF lisinopril 5 mg tablet 5 mg PO BEDTIME Qty: 0 0RF Hold Instructions: Resume on 03/31/22. acetaminophen 500 mg tablet 1 tab PO Q6H PRN (Reason: Pain) 0RF cholecalciferol (vitamin D3) 25 mcg (1,000 unit) capsule 1 cap PO DAILY 0RF Lokelma 5 gram powder in packet 5 g PO Q OTHER DAY Qty: 11 0RF metoclopramide HCl 5 mg tablet 5 mg PO TID 0RF Rx Instructions: with meals Tresiba FlexTouch U-100 100 unit/mL (3 mL) insulin pen 32 unit subcut DAILY 0RF Referrals: Prudencio Zelaya MD [Physician] -
[2022-03-27 07:39] LABS: Basophils Percent Auto 0.3 % (0-2); Eosinophils Absolute Auto 0.3 X10*3/uL (0.0-0.4); Eosinophils Percent Auto 2.8 % (0-4); Hematocrit 33.2 % (37.0-47.0); Hemoglobin 10.7 g/dl (12.0-16.0); Imm Gran Abs Auto 0.07 X10*3/uL (0.00-0.03); Imm Gran Pct Auto 0.8 % (0.0-0.4); Lymphocytes Absolute Auto 1.5 X10*3/uL (1.2-4.9); Lymphocytes Percent Auto 16.7 % (20-40); MANUAL DIFF FLAG SCAN; Mean Corpuscular HGB Conc 32.2 g/dl (31.0-35.0); Mean Corpuscular Hemoglobin 30.2 pg (27.0-33.0); Mean Corpuscular Volume 93.8 fL (80.0-98.0); Mean Platelet Volume 11.4 fL (9.4-12.3); Monocytes Absolute Auto 0.6 X10*3/uL (0.1-1.2); Monocytes Percent Auto 6.9 % (2-11); Neutrophils Absolute Auto 6.4 x10*3/uL (2.0-8.3); Neutrophils Percent Auto 72.5 % (45-73); PLT CLUMP 1; Red Blood Count 3.54 X10*6/uL (4.20-5.50); SCAN SMEAR FLAG 1
[2022-03-27 07:46] LABS: White Blood Count 8.8 X10*3/uL (4.8-10.8)
[2022-03-27 07:47] LABS: Platelet Count 199 X10*3/uL (160-400)
[2022-03-27] MEDS: LORazepam 1 MG TABLET PO (07:53)
--- NOTE | 2022-03-27 07:54 | PC.NURSE ---
Attempted to insert IV x3, unsuccessful-patient is a hard stick and anxious. Lorazepam 1 mg given to [id number] to insert an IV in 30 min. Provider is aware.
[2022-03-27 07:57] VITALS: BP 184/74; PULSE 68; RESP 16; O2SAT 98
[2022-03-27 08:01] LABS: Troponin-I High Sensitivity 33.4 ng/L (<3.5-17.0)
[2022-03-27 08:05] LABS: SLIDE REVIEW VERIFIED
[2022-03-27 09:04] LABS: Anion Gap 14 (12-20); Calcium 9.6 mg/dL (8.4-10.2); Carbon Dioxide 21 mmol/L (22-29); Chloride 109 mmol/L (96-108); Sodium 139 mmol/L (135-145)
[2022-03-27 09:15] LABS: Blood Urea Nitrogen 44 mg/dL (9-16); Creatinine Clr Calc Pharmacy 29.1; Estimated Glomerular Filt Rate 27; Glucose Random 251 mg/dL (60-115)
[2022-03-27 09:45] VITALS: BP 177/73; PULSE 74; RESP 12; O2SAT 93
[2022-03-27 11:33] VITALS: BP 205/76; PULSE 67; RESP 16; O2SAT 95
== END 2022-03-27 12:37 | disposition home or self-care (01) ==
PROVIDERS: Emergency Provider Emergency Medicine Emergency Medical Services
DX: R07.9 Chest pain, unspecified (principal); E11.9 Type 2 diabetes mellitus without complications; I11.0 Hypertensive heart disease with heart failure; I50.32 Chronic diastolic (congestive) heart failure; J44.9 Chronic obstructive pulmonary disease, unspecified; I25.2 Old myocardial infarction; Z86.73 Personal history of transient ischemic attack (TIA), and cerebral infarction without residual deficits; Z95.0 Presence of cardiac pacemaker
CPT/HCPCS: 36415; 71045; 80048; 84484; 85025; 99284; 99285

== ENCOUNTER 2022-04-01 12:00 | Emergency (ER) | payer OTHER, SELFPAY ==
--- NOTE | 2022-04-01 | ECG_ITS ---
Test Reason : CHEST PAIN Blood Pressure : / mmHG Vent. Rate : 081 BPM Atrial Rate : 081 BPM P-R Int : 242 ms QRS Dur : 100 ms QT Int : 374 ms P-R-T Axes : -28 094 267 degrees QTc Int : 434 ms Atrial-sensed ventricular-paced rhythm with prolonged AV conduction Abnormal ECG When compared with ECG of 23-MAR-2022 20:28, Vent. rate has increased BY 6 BPM Referred By: Generic ED Physician Electronically Signed By:LG SALAZAR MD
--- NOTE | ~2022-04-01 | CT_ITS ---
EXAMINATION: CT HEAD WITHOUT CONTRAST CLINICAL INFORMATION: Fall COMPARISON: Previous head CT January 2022 TECHNIQUE: Contiguous axial imaging was performed from the skull base to vertex without intravenous administration of contrast. This CT examination was performed using dose optimization techniques as appropriate, variously including the following: *Automated exposure control *Adjustment of mA and/or kV according to patient size (this includes techniques or standardized protocols for targeted exams where dose is matched to indication/reason for exam; i.e. extremities or head) *Use of iterative reconstruction technique DLP: 702 mGy-cm FINDINGS: There is no evidence of acute intracranial hemorrhage or territorial infarction. No abnormal mass effect or midline shift is seen. Mike to white matter differentiation is well preserved. No extra-axial fluid collections are identified. The ventricles are normal in size. There is no abnormal attenuation within the brain parenchyma. The osseous structures and soft tissues are normal. The mastoid air cells and visualized portions of the paranasal sinuses are well aerated. CT/CT head/brain wo con IMPRESSION: Unremarkable exam
--- NOTE | ~2022-04-01 | XR_ITS ---
EXAMINATION: XR CHEST CLINICAL INFORMATION: Full COMPARISON: March 27, 2022 TECHNIQUE: AP portable view of the chest was obtained. FINDINGS: There is no evidence of acute parenchymal disease, pneumothorax, or pleural effusion. Heart normal size. No evidence of pulmonary edema. Status post median sternotomy and CABG. Dual-chamber pacemaker in place. XR/XR chest 1V IMPRESSION: No acute disease.
[2022-04-01 12:19] VITALS: BP 108/53; BP 75/47; PULSE 81; PULSE 82; RESP 18; TEMP 36.6; O2SAT 100; O2SAT 97; BMI 31.5
--- NOTE | 2022-04-01 13:04 | ED_ITS ---
HPI - General Adult General Chief complaint: General Medical Stated complaint: CP, LOW BP 75/47 Time Seen by Provider: 04/01/22 13:04 Source: patient and EMS Mode of arrival: EMS Limitations: no limitations History of Present Illness HPI narrative: 61-year-old female female with history of KS, pacemaker placement, CABG, patient was brought in by ambulance after the visiting nurse found her hypotensive at home, patient also been complaining of left-sided chest pain that is localized to the left side of the chest with no radiation, pain now has gone, described as moderate 5/10 dull aching, non exertional, no aggravating factor, no relieving factor. Patient has multiple evaluation for chest pain in the emergency department in the past. Patient also stated that last night felt weak and dizzy and patient fell landed on her knees then fell backward with head injury complaining of headache, but declined LOC, no neck pain. Related Data Home Medications Medication Instructions Recorded Confirmed lorazepam 0.5 mg tablet 0.5 mg PO BID PRN 09/14/20 03/23/22 allopurinol 100 mg tablet 100 mg PO DAILY 09/16/20 03/23/22 aspirin 81 mg tablet,delayed 81 mg PO DAILY 09/16/20 03/23/22 release insulin degludec 100 unit/mL (3 32 unit SUBCUT DAILY ml 11/13/20 03/23/22 mL) subcutaneous pen (Tresiba FlexTouch U-100 insulin) ferrous sulfate 325 mg (65 mg 325 mg PO DAILY 12/22/20 03/23/22 iron) tablet (iron) tamsulosin 0.4 mg capsule 0.4 mg PO DAILY@1700 12/22/20 03/23/22 insulin aspart U-100 100 unit/mL See Rx Instructions .ROUTE .COMPLEX 01/08/21 03/23/22 (3 mL) subcutaneous pen (Novolog Flexpen U-100 Insulin aspart) melatonin 5 mg tablet 5 mg PO BEDTIME PRN 01/08/21 03/23/22 nitroglycerin 0.4 mg sublingual 0.4 mg SUBLINGUAL Q5M PRN 01/08/21 03/23/22 tablet gabapentin 100 mg capsule 200 mg PO TID 03/06/21 03/23/22 metoclopramide HCl 5 mg tablet 5 mg PO TID 03/20/21 03/23/22 meloxicam 7.5 mg tablet 1 tab PO DAILY 01/10/22 03/23/22 pantoprazole 40 mg tablet,delayed 1 tab PO BID 01/10/22 03/23/22 release trazodone 50 mg tablet 0.5 tab PO BEDTIME PRN 01/10/22 03/23/22 atorvastatin 80 mg tablet 80 mg PO BEDTIME 01/21/22 03/23/22 linagliptin 5 mg tablet (Tradjenta) 5 mg PO DAILY 01/21/22 03/23/22 metoprolol succinate 25 mg 1 tab PO DAILY 02/19/22 03/23/22 tablet,extended release 24 hr acetaminophen 500 mg tablet 1 tab PO Q6H PRN 03/23/22 03/23/22 cholecalciferol (vitamin D3) 25 1 cap PO DAILY 03/23/22 03/23/22 mcg (1,000 unit) capsule Previous Rx's Medication Instructions Recorded furosemide 40 mg tablet 40 mg PO DAILY #90 tab 12/06/20 lisinopril 5 mg tablet 5 mg PO BEDTIME #0 tab 02/20/22 sodium zirconium cyclosilicate 5 5 g PO Q OTHER DAY #11 ea 03/25/22 gram oral powder packet (Lokelma) Allergies Allergy/AdvReac Type Severity Reaction Status Date / Time tetracycline [Tetracycline] Allergy Mild HIVES, Verified 12/27/21 12:22 anaphylaxis, anaphylaxis Review of Systems Review of Systems: All other systems are reviewed and are negative Constitutional: Reports as per HPI and Reports no additional constitutional complaints Eyes: Reports as per HPI and Reports no additional eye complaints Reports system reviewed and no additional complaints, except as documented Cardiovascular: Reports as per HPI and Reports no additional cardiovascular complaints Respiratory: Reports as per HPI and Reports no additional respiratory complaints Gastrointestinal: Reports as per HPI and Reports no additional gastrointestinal complaints Genitourinary: Reports no additional female genitourinary complaints Musculoskeletal: Reports no additional musculoskeletal complaints Skin/Breast: Reports system reviewed and no additional complaints, except as docu Psychiatric: Reports no additional psychiatric complaints Endocrine: Reports no additional endocrine complaints Hematologic/Lymphatic: Reports no additional hematologic/lymphatic complaints Allergic/Immunologic: Reports no additional allergic/immunologic complaints Reports system reviewed and no additional complaints, except as documented and Reports Abnormal speech present [facility] Past Medical History Medical History Acute heart failure with preserved ejection fraction Anemia Anxiety Arthritis Cardiac pacemaker in situ Carpal tunnel syndrome CHF (congestive heart failure) Chronic heart failure with preserved ejection fraction (HFpEF) COPD exacerbation Coronary artery disease CVA (cerebral vascular accident) Diabetes Fall Gastritis Gastroparesis Gastroparesis GERD (gastroesophageal reflux disease) Headache Heart failure with preserved ejection fraction HLD (hyperlipidemia) HTN (hypertension) HTN (hypertension) Hypocalcemia Hypoxia IBS (irritable bowel syndrome) Knee pain, left Myocardial infarct Nausea and vomiting Orthostasis Renal failure Suprapatellar effusion of knee T2DM (type 2 diabetes mellitus) UTI (urinary tract infection) Surgical History H/O Achilles tendon repair History of appendectomy History of bladder surgery History of carpal tunnel release History of total hysterectomy with bilateral salpingo-oophorectomy (BSO) Hx of amputation Hx of CABG (~2019) Hx of cholecystectomy Hx of endoscopy Hx of knee surgery Hx of tonsillectomy Family History Family History Father No problems noted. Mother Diabetes Hypercholesteremia Hypertension Stroke Social History Social History Household Members: Family Household Members Other:: 1 Housing: Apartment Do you presently have visiting nurse or other home services: Yes Alcohol intake: never Patient Tobacco Use Status: Former Tobacco user Years Smoked: 20 Second Hand Smoke Exposure: No Advance Directives: Yes Advance Directives on File: Yes Advance Directives Date on File: 01/13/22 service: No Current occupational status: disabled Physical Exam ED Vital Signs: Vital Signs - 24 hr 04/01/22 12:19 04/01/22 15:23 Temperature 97.9 F 98.6 F Pulse Rate 81 72 Respiratory Rate 18 18 Blood Pressure 108/53 L 110/55 L Pulse Oximetry 97 96 BMI result Body Mass Index 31.5 Vital signs have been reviewed as appeared to be correct. Blood pressure normal. Heart rate normal. Respiration rate normal. Temperature normal. Oxygen saturation normal. Appearance: Alert. Oriented X3. No acute distress. Head: Normal external exam. Normocephalic. Atraumatic. No Woodard signs noted. No raccoon eyes noted Eyes: PERRLA. EOMI. Conjunctiva and sclera normal. Eyelids normal. ENT: TM's Normal. Pharynx normal. Uvula midline. Moist mucous membranes. No trismus noted. No drooling noted. No muffled voice noted. Neck: Normal inspection. Neck supple. FROM. No adenopathy. Thyroid Normal. No m eningeal signs. No neck mass noted. CVS: Normal heart rate and rhythm. Heart sound normal. No murmurs noted. Pulses normal throughout. Respiratory: No respiratory distress. Painless inspiration. Breath sounds normal. No wheezes/rales/rhonchi noted. Chest nontender. No accessory muscle usage noted or decreased air movement noted. Abdomen: Soft and nontender. Bowel sounds normal in all 4 quadrants. No distention noted. No organomegaly noted. No visible injury noted. Back: No CVA tenderness. Full range of motion noted. Skin: Skin warm and dry. Normal skin color. Normal skin turgor. No r ashes/lesions/lacerations noted. Extremities: No lower extremity edema. Extremities exhibit normal range of motion. Extremities nontender. Neuro: Oriented X 3. Cranial nerve exam: II-XII are grossly intact No motor deficit. No sensory deficit. Reflexes normal. Course Course Course Narrative: Assessment and plan. 61-year-old female came in after she sustained a mechanical fall yesterday and found by her visiting nurse to be hypotensive, patient in the emergency department has been having normal blood pressure and stable vital signs, labs at her baseline, troponin is at patient's baseline were repeated in 3 hours, leukocytosis was no obvious source of infection waiting for urine sample and check UA. sign-out to to check on the pending labs and dispose the patient. Medical Decision Making Lab Data Lab results reviewed: Yes I reviewed the patient's lab results. Result diagrams: 04/01/22 13:55 04/01/22 13:55 Labs: Lab Results 04/01/22 04/01/22 04/01/22 Range/Units 13:55 13:55 13:55 WBC 15.8 H (4.8-10.8) X10*3/uL RBC 3.39 L (4.20-5.50) X10*6/uL Hgb 10.5 L (12.0-16.0) g/dl Hct 32.1 L (37.0-47.0) % MCV 94.7 (80.0-98.0) fL MCH 31.0 (27.0-33.0) pg MCHC 32.7 (31.0-35.0) g/dl RDW 14.3 (11.0-16.0) % Plt Count 208 (160-400) X10*3/uL MPV 11.1 (9.4-12.3) fL Immature Gran % (Auto) 0.4 (0.0-0.4) % Neut % (Auto) 84.7 H (45-73) % Lymph % (Auto) 8.8 L (20-40) % [place] % (Auto) 5.0 (2-11) % Eos % (Auto) 0.8 (0-4) % Baso % (Auto) 0.3 (0-2) % Lymph # (Auto) 1.4 (1.2-4.9) X10*3/uL [place] # (Auto) 0.8 (0.1-1.2) X10*3/uL Eos # (Auto) 0.1 (0.0-0.4) X10*3/uL Baso # (Auto) 0.0 (0.0-0.2) X10*3/uL Abs Immat Gran (auto) 0.07 H (0.00-0.03) X10*3/uL Absolute Neuts (auto) 13.4 H (2.0-8.3) x10*3/uL Absolute Nucleated RBC 0.000 (0.0-0.012) X10*3/uL Nucleated RBC % (auto) 0.0 (0.0-0.2) /100WBC Sodium 139 (135-145) mmol/L Potassium 4.6 (3.3-5.1) mmol/L Chloride 106 (96-108) mmol/L Carbon Dioxide 25 (22-29) mmol/L Anion Gap 13 (12-20) BUN 68 H D (9-16) mg/dL Creatinine 2.85 H (0.5-1.4) mg/dL Estim Creat Clear Calc 19.6 Estimated GFR 17 Random Glucose 178 H (60-115) mg/dL Calcium 9.0 D (8.4-10.2) mg/dL Total Bilirubin 0.5 (0.0-1.0) mg/dL Direct Bilirubin 0.2 (0.0-0.5) mg/dL AST 13 (5-31) U/L ALT 11 (0-31) U/L Alkaline Phosphatase 106 (39-117) U/L Troponin I High Sens 32.7 H (<3.5-17.0) ng/L B-Natriuretic Peptide (<100) pg/mL Total Protein 7.2 (6.5-8.0) g/dL Albumin 3.7 (3.5-5.0) g/dL Lipase 26 (8-78) U/L 04/01/22 Range/Units 13:55 WBC (4.8-10.8) X10*3/uL RBC (4.20-5.50) X10*6/uL Hgb (12.0-16.0) g/dl Hct (37.0-47.0) % MCV (80.0-98.0) fL MCH (27.0-33.0) pg MCHC (31.0-35.0) g/dl RDW (11.0-16.0) % Plt Count (160-400) X10*3/uL MPV (9.4-12.3) fL Immature Gran % (Auto) (0.0-0.4) % Neut % (Auto) (45-73) % Lymph % (Auto) (20-40) % [place] % (Auto) (2-11) % Eos % (Auto) (0-4) % Baso % (Auto) (0-2) % Lymph # (Auto) (1.2-4.9) X10*3/uL [place] # (Auto) (0.1-1.2) X10*3/uL Eos # (Auto) (0.0-0.4) X10*3/uL Baso # (Auto) (0.0-0.2) X10*3/uL Abs Immat Gran (auto) (0.00-0.03) X10*3/uL Absolute Neuts (auto) (2.0-8.3) x10*3/uL Absolute Nucleated RBC (0.0-0.012) X10*3/uL Nucleated RBC % (auto) (0.0-0.2) /100WBC Sodium (135-145) mmol/L Potassium (3.3-5.1) mmol/L Chloride (96-108) mmol/L Carbon Dioxide (22-29) mmol/L Anion Gap (12-20) BUN (9-16) mg/dL Creatinine (0.5-1.4) mg/dL Estim Creat Clear Calc Estimated GFR Random Glucose (60-115) mg/dL Calcium (8.4-10.2) mg/dL Total Bilirubin (0.0-1.0) mg/dL Direct Bilirubin (0.0-0.5) mg/dL AST (5-31) U/L ALT (0-31) U/L Alkaline Phosphatase (39-117) U/L Troponin I High Sens (<3.5-17.0) ng/L B-Natriuretic Peptide 150 H (<100) pg/mL Total Protein (6.5-8.0) g/dL Albumin (3.5-5.0) g/dL Lipase (8-78) U/L Imaging Data Chest x-ray: Attestation: I personally reviewed and interpreted this imaging study as follows: Radiologist's impression: No acute pathology. CT scan - head: Attestation: I personally reviewed and interpreted this imaging study as follows: Radiologist's impression: No acute pathology. ECG Data Attestation: I personally reviewed and interpreted this ECG as follows: Interpretation: Atrial sensed ventricular paced rhythm at 80 beats per minutes, unchanged from previous EKG. Discharge Plan Discharge Clinical Impression: Accident due to mechanical fall without injury, Chest pain Prescriptions: No Action furosemide 40 mg tablet 40 mg PO DAILY Qty: 90 3RF Hold Instructions: Resume on 03/27/22. lorazepam 0.5 mg Tablet 0.5 mg PO BID PRN (Reason: Anxiety) 0RF allopurinol 100 mg Tablet 100 mg PO DAILY 0RF aspirin 81 mg Tablet,Delayed Release (Dr/Ec) 81 mg PO DAILY 0RF Hold Instructions: Resume on 01/13/21. tamsulosin 0.4 mg capsule 0.4 mg PO DAILY@1700 0RF ferrous sulfate [iron] 325 mg (65 mg iron) Tablet 325 mg PO DAILY 0RF insulin aspart U-100 [Novolog Flexpen U-100 Insulin] 100 unit/mL (3 mL) Insulin Pen See Rx Instructions unit .ROUTE .COMPLEX 0RF Rx Instructions: pt states she uses 8 units if BG <200 and 10 units when BG >200 nitroglycerin 0.4 mg Tablet, Sublingual 0.4 mg SUBLINGUAL Q5M PRN (Reason: Chest Pain) 0RF melatonin 5 mg Tablet 5 mg PO BEDTIME PRN (Reason: Sleep) 0RF gabapentin 100 mg capsule 200 mg PO TID 0RF trazodone 50 mg tablet 0.5 tab PO BEDTIME PRN (Reason: Sleep) 0RF meloxicam 7.5 mg tablet 1 tab PO DAILY 0RF Hold Instructions: Resume on 03/31/22. pantoprazole 40 mg tablet,delayed release (DR/EC) 1 tab PO BID 0RF atorvastatin 80 mg tablet 80 mg PO BEDTIME 0RF Tradjenta 5 mg tablet 5 mg PO DAILY 0RF metoprolol succinate 25 mg tablet extended release 24 hr 1 tab PO DAILY 0RF lisinopril 5 mg tablet 5 mg PO BEDTIME Qty: 0 0RF Hold Instructions: Resume on 03/31/22. acetaminophen 500 mg tablet 1 tab PO Q6H PRN (Reason: Pain) 0RF cholecalciferol (vitamin D3) 25 mcg (1,000 unit) capsule 1 cap PO DAILY 0RF Lokelma 5 gram powder in packet 5 g PO Q OTHER DAY Qty: 11 0RF metoclopramide HCl 5 mg tablet 5 mg PO TID 0RF Rx Instructions: with meals Tresiba FlexTouch U-100 100 unit/mL (3 mL) insulin pen 32 unit subcut DAILY 0RF
[2022-04-01 14:00] LABS: MANUAL DIFF FLAG NO
[2022-04-01] MEDS: 0.9 % Sodium Chloride 1,000 ML 999 ML IV (14:02)
[2022-04-01 14:03] LABS: Basophils Percent Auto 0.3 % (0-2); Eosinophils Absolute Auto 0.1 X10*3/uL (0.0-0.4); Eosinophils Percent Auto 0.8 % (0-4); Hematocrit 32.1 % (37.0-47.0); Hemoglobin 10.5 g/dl (12.0-16.0); Imm Gran Abs Auto 0.07 X10*3/uL (0.00-0.03); Imm Gran Pct Auto 0.4 % (0.0-0.4); Lymphocytes Absolute Auto 1.4 X10*3/uL (1.2-4.9); Lymphocytes Percent Auto 8.8 % (20-40); Mean Corpuscular HGB Conc 32.7 g/dl (31.0-35.0); Mean Corpuscular Volume 94.7 fL (80.0-98.0); Mean Platelet Volume 11.1 fL (9.4-12.3); Monocytes Absolute Auto 0.8 X10*3/uL (0.1-1.2); Neutrophils Absolute Auto 13.4 x10*3/uL (2.0-8.3); Neutrophils Percent Auto 84.7 % (45-73); Platelet Count 208 X10*3/uL (160-400); Red Blood Count 3.39 X10*6/uL (4.20-5.50); Red Cell Distribution Width 14.3 % (11.0-16.0); White Blood Count 15.8 X10*3/uL (4.8-10.8)
[2022-04-01 14:21] LABS: Troponin-I High Sensitivity 32.7 ng/L (<3.5-17.0)
[2022-04-01 14:22] LABS: B Type Natriuretic Peptide 150 pg/mL (<100)
[2022-04-01 14:24] LABS: Alanine Aminotransferase 11 U/L (0-31); Albumin Level 3.7 g/dL (3.5-5.0); Alkaline Phosphatase 106 U/L (39-117); Anion Gap 13 (12-20); Aspartate Amino Transferase 13 U/L (5-31); Bilirubin Direct 0.2 mg/dL (0.0-0.5); Bilirubin Total 0.5 mg/dL (0.0-1.0); Blood Urea Nitrogen 68 mg/dL (9-16); Carbon Dioxide 25 mmol/L (22-29); Chloride 106 mmol/L (96-108); Creatinine Clr Calc Pharmacy 19.6; Estimated Glomerular Filt Rate 17; Glucose Random 178 mg/dL (60-115); Lipase 26 U/L (8-78); Potassium 4.6 mmol/L (3.3-5.1); Sodium 139 mmol/L (135-145); Total Protein 7.2 g/dL (6.5-8.0)
[2022-04-01 15:23] VITALS: BP 110/55; PULSE 72; RESP 18; TEMP 37; O2SAT 96
[2022-04-01 15:34] VITALS: BP 115/56; PULSE 70; RESP 18; TEMP 37.1; O2SAT 98
[2022-04-01 17:53] LABS: Troponin-I High Sensitivity 39.6 ng/L (<3.5-17.0)
[2022-04-01 20:00] VITALS: RESP 16
--- NOTE | 2022-04-01 20:16 | PC.NURSE ---
pt is alert and oriented. resting in bed. no signs of acute distress notice.
[2022-04-01 20:36] VITALS: BP 126/54; PULSE 63; RESP 16; TEMP 37.4; O2SAT 96
== END 2022-04-01 21:30 | disposition home or self-care (01) ==
PROVIDERS: Emergency Provider Emergency Medicine
DX: R07.89 Other chest pain (principal); R03.1 Nonspecific low blood-pressure reading; R51.9 Headache, unspecified; R06.02 Shortness of breath; Z79.899 Other long term (current) drug therapy; Z87.891 Personal history of nicotine dependence
CPT/HCPCS: 36415; 70450; 71045; 80048; 80076; 83690; 83880; 84484; 85025; 93005; 99283; 99284

== ENCOUNTER 2022-04-15 11:27 | Emergency (ER) | payer OTHER, SELFPAY ==
--- NOTE | ~2022-04-15 | XR_ITS ---
EXAMINATION: XR CHEST CLINICAL INFORMATION: Dizziness COMPARISON: Previous chest x-ray March 2022 TECHNIQUE: Frontal view of the chest was obtained. FINDINGS: The cardiac and mediastinal contours are stable. There are post-CABG changes. There is a left subclavian dual chamber pacemaker that appears unchanged. Hilar and mediastinal contours are normal. The lungs are clear. There is no pleural effusion or pneumothorax. No acute bone abnormality. XR/XR chest 1V IMPRESSION: No evidence for acute disease in the chest.
--- NOTE | ~2022-04-15 | CT_ITS ---
EXAMINATION: CT HEAD WITHOUT CONTRAST CT CERVICAL SPINE WITHOUT CONTRAST CLINICAL INFORMATION: Fall, hypotension. COMPARISON: CT head dated from 04/01/2022. TECHNIQUE: Contiguous axial imaging was performed from the skull base to vertex without intravenous administration of contrast. Contiguous axial imaging was performed from the upper chest through the skull base without intravenous administration of contrast. Coronal and sagittal reformats were obtained at the acquisition workstation. This CT examination was performed using dose optimization techniques as appropriate, variously including the following: *Automated exposure control *Adjustment of mA and/or kV according to patient size (this includes techniques or standardized protocols for targeted exams where dose is matched to indication/reason for exam; i.e. extremities or head) *Use of iterative reconstruction technique DLP: 427 mGy-cm FINDINGS: Head: There is no evidence of acute intracranial hemorrhage or edematous territorial infarction. A few foci of hypoattenuation in the periventricular and deep white matter are consistent with mild microangiopathy. Mike-white matter differentiation is preserved. The ventricles are normal in size and configuration. No evidence for obstructive hydrocephalus. No abnormal mass effect or midline shift. No extra-axial fluid collections. No acute soft tissue or osseous abnormalities. The mastoid air cells and paranasal sinuses are clear. Left greater than right temporomandibular joint osteoarthritis. Cervical Spine: The atlantooccipital and atlantoaxial articulations remain well aligned. Straightening of the normal cervical lordosis. Otherwise, there is anatomic alignment of the vertebral bodies and posterior elements. No evidence of acute fracture or subluxation. Mild multilevel cervical spondylosis. There is no prevertebral soft tissue swelling. The thyroid gland and remaining cervical soft tissues are normal in appearance. The lung apices demonstrate no abnormalities. CT/CT cervical spine wo con IMPRESSION: No acute intracranial pathology. No acute cervical spine fracture or malalignment.
[2022-04-15 11:40] VITALS: BP 68/30; PULSE 68; RESP 19; TEMP 36.8; O2SAT 96
[2022-04-15 11:44] VITALS: BP 60/39; BP 70/31; PULSE 66; PULSE 68; RESP 16; TEMP 36.7; O2SAT 96; O2SAT 97; BMI 37.0
--- NOTE | 2022-04-15 11:47 | ECG_ITS ---
Test Reason : FALL Blood Pressure : / mmHG Vent. Rate : 069 BPM Atrial Rate : 069 BPM P-R Int : 216 ms QRS Dur : 132 ms QT Int : 460 ms P-R-T Axes : -25 100 258 degrees QTc Int : 492 ms Atrial-sensed ventricular-paced rhythm with prolonged AV conduction Abnormal ECG When compared with ECG of 01-APR-2022 12:17, Vent. rate has decreased BY 12 BPM Referred By: Generic ED Physician Electronically Signed By:Efren Diaz
[2022-04-15 11:59] LABS: Hematocrit 31.5 % (37.0-47.0); Hemoglobin 10.1 g/dl (12.0-16.0); Mean Corpuscular HGB Conc 32.1 g/dl (31.0-35.0); Mean Corpuscular Hemoglobin 30.2 pg (27.0-33.0); Mean Corpuscular Volume 94.3 fL (80.0-98.0); Mean Platelet Volume 10.2 fL (9.4-12.3); Platelet Count 240 X10*3/uL (160-400); Red Blood Count 3.34 X10*6/uL (4.20-5.50); Red Cell Distribution Width 14.2 % (11.0-16.0); White Blood Count 10.1 X10*3/uL (4.8-10.8)
--- NOTE | 2022-04-15 12:05 | PC.NURSE ---
protective services argenis funes: [phone]
[2022-04-15 12:11] VITALS: BP 91/63; PULSE 68; RESP 12; TEMP 36.8; O2SAT 99
[2022-04-15 12:15] LABS: Anion Gap 12 (12-20); Blood Urea Nitrogen 59 mg/dL (9-16); Calcium 8.6 mg/dL (8.4-10.2); Carbon Dioxide 24 mmol/L (22-29); Chloride 108 mmol/L (96-108); Creatinine Clr Calc Pharmacy 22.5; Estimated Glomerular Filt Rate 18; Glucose Random 146 mg/dL (60-115); Potassium 4.1 mmol/L (3.3-5.1); Sodium 140 mmol/L (135-145)
--- NOTE | 2022-04-15 12:19 | ED.SYNCOPE ---
HPI - Syncope General Chief Complaint: Dizziness Stated Complaint: DIZZY,FALL,PALACIOS Time Seen by Provider: 04/15/22 12:11 Source: patient, EMS, RN notes reviewed and old records reviewed Mode of arrival: EMS Limitations: no limitations History of Present Illness HPI narrative: 62-year-old female with history of HTN, HLD, DM, CAD s/p CABG, HFpEF, Hx Cardiac pacemaker, diabetic gastropathy, irritable bowel syndrome, history of CVA,Arthritis, anemia, CKD, Hx Amputation recent visit for similar found to be hypotensive previously but today was getting her meds from visiting nurse which comes twice a day she states because she had tried to kill herself in the past by overdosing on her medications for now visiting nurse brings all her meds. She states she stood up to take her meds and passed out hitting her head and neck she was in the 70 systolic arrival here to the emergency department patient has 2 very low blood pressures she is now awake and alert her blood pressure is 90 systolic after about 200 cc of fluid. Patient is was recently admitted here from March 22 to March 25 for chest pain she denies any chest pain at this time her main complaint is a headache MD complaint: loss of consciousness and collapsed Related Data Home Medications Medication Instructions Recorded Confirmed lorazepam 0.5 mg tablet 0.5 mg PO BID PRN 09/14/20 04/15/22 allopurinol 100 mg tablet 100 mg PO DAILY 09/16/20 04/15/22 aspirin 81 mg tablet,delayed 81 mg PO DAILY 09/16/20 04/15/22 release insulin degludec 100 unit/mL (3 32 unit SUBCUT DAILY ml 11/13/20 04/15/22 mL) subcutaneous pen (Tresiba FlexTouch U-100 insulin) ferrous sulfate 325 mg (65 mg 325 mg PO DAILY 12/22/20 04/15/22 iron) tablet (iron) tamsulosin 0.4 mg capsule 0.4 mg PO DAILY@1700 12/22/20 04/15/22 melatonin 5 mg tablet 5 mg PO BEDTIME PRN 01/08/21 04/15/22 nitroglycerin 0.4 mg sublingual 0.4 mg SUBLINGUAL Q5M PRN 01/08/21 04/15/22 tablet gabapentin 100 mg capsule 200 mg PO TID 03/06/21 04/15/22 metoclopramide HCl 5 mg tablet 5 mg PO TIDWM 03/20/21 04/15/22 meloxicam 7.5 mg tablet 1 tab PO DAILY 01/10/22 04/15/22 pantoprazole 40 mg tablet,delayed 1 tab PO DAILY 01/10/22 04/15/22 release trazodone 50 mg tablet 0.5 tab PO BEDTIME PRN 01/10/22 04/15/22 atorvastatin 80 mg tablet 80 mg PO BEDTIME 01/21/22 04/15/22 linagliptin 5 mg tablet (Tradjenta) 5 mg PO DAILY 01/21/22 04/15/22 metoprolol succinate 25 mg 1 tab PO DAILY 02/19/22 04/15/22 tablet,extended release 24 hr acetaminophen 500 mg tablet 1 tab PO Q6H PRN 03/23/22 04/15/22 cholecalciferol (vitamin D3) 25 1 cap PO DAILY 03/23/22 04/15/22 mcg (1,000 unit) capsule insulin aspart U-100 100 unit/mL See Protocol SUBCUT QIDWMHS 04/15/22 04/15/22 (3 mL) subcutaneous pen (Novolog Flexpen U-100 Insulin aspart) loperamide 2 mg capsule 2 mg PO DAILY PRN 04/15/22 04/15/22 Previous Rx's Medication Instructions Recorded furosemide 40 mg tablet 40 mg PO DAILY #90 tab 12/06/20 lisinopril 5 mg tablet 5 mg PO BEDTIME #0 tab 02/20/22 sodium zirconium cyclosilicate 5 5 g PO Q OTHER DAY #11 ea 03/25/22 gram oral powder packet (Lokelma) Allergies Allergy/AdvReac Type Severity Reaction Status Date / Time tetracycline [Tetracycline] Allergy Mild HIVES, Verified 12/27/21 12:22 anaphylaxis, anaphylaxis Review of Systems Review of Systems: Review of systems: General: Patient denies any fever chills recent illness or falls Musculoskeletal: Denies back pain or body aches or other injuries HEENT: denies headache, runny nose, ear pain Respiratory: denies shortness of breath, cough Cardiovascular: no chest pain or palpitations : denies dysuria, frequency Abdomen: no nausea vomiting denies abdominal pain Extremities: no swelling, no pain Skin: no diaphoresis Yes all other systems are reviewed and are negative PMFSH Past Medical History Medical History Acute heart failure with preserved ejection fraction Anemia Anxiety Arthritis Cardiac pacemaker in situ Carpal tunnel syndrome CHF (congestive heart failure) Chronic heart failure with preserved ejection fraction (HFpEF) COPD exacerbation Coronary artery disease CVA (cerebral vascular accident) Diabetes Fall Gastritis Gastroparesis Gastroparesis GERD (gastroesophageal reflux disease) Headache Heart failure with preserved ejection fraction HLD (hyperlipidemia) HTN (hypertension) HTN (hypertension) Hypocalcemia Hypoxia IBS (irritable bowel syndrome) Knee pain, left Myocardial infarct Nausea and vomiting Orthostasis Renal failure Suprapatellar effusion of knee T2DM (type 2 diabetes mellitus) UTI (urinary tract infection) Surgical History H/O Achilles tendon repair History of appendectomy History of bladder surgery History of carpal tunnel release History of total hysterectomy with bilateral salpingo-oophorectomy (BSO) Hx of amputation Hx of CABG (~2018) Hx of cholecystectomy Hx of endoscopy Hx of knee surgery Hx of tonsillectomy Family History Family History Father No problems noted. Mother Diabetes Hypercholesteremia Hypertension Stroke Social History Social History Household Members: Family Household Members Other:: 1 Housing: Apartment Do you presently have visiting nurse or other home services: Yes Alcohol intake: never Patient Tobacco Use Status: Former Tobacco user Years Smoked: 20 Second Hand Smoke Exposure: No Advance Directives: Yes Advance Directives on File: Yes Advance Directives Date on File: 01/13/22 service: No Current occupational status: disabled Physical Exam Vital Signs: Vital Signs: Last Vital Signs Temp 98.4 F 04/15/22 14:56 Pulse 65 04/15/22 14:56 Resp 16 04/15/22 14:56 BP 160/72 H 04/15/22 14:56 Pulse Ox 98 04/15/22 14:56 BMI result Body Mass Index 37.0 Neurological exam: CN II- XII tested. Patient is alert and oriented to person place and time. Patient has no dysphagia or dysarthia, denies good vision in all four vision multani no nystagmus on exam, good strength to upper and lower extremities with normal reflexes to brachioradialis, wrist, patella and achilles. Negative romberg, good finger to nose and heel to jimenez. General: Well-appearing well-nourished in no signs of distress HEENT: Normocephalic atraumatic Neck: No signs of JVD, no masses no tenderness or lymphadenopathy Cardiovascular: Regular rate and rhythm Respiratory: Clear to auscultation bilaterally Abdomen: Soft nontender no masses Extremities: Normal pedal pulses no signs of edema Skin: Dry warm no rashes Back: No tenderness full ROM MDM - Syncope MDM Narrative Medical decision making narrative: 62-year-old female likely require admission for syncope and continued monitoring patient was also found to be hypertensive on arrival history of hypertension CABG she has no chest pain at this time but she does have chronic kidney disease and had acute kidney injury earlier this month. Patient continues to improve with such a low BP on arrival I feel the patient should be admitted. Page sent to Hospitalist about admission at [phone] sTill pending evaluation by the hospitalist. I will do orthopedics. Per [facility] hospitalist and policy they will not admit a patient who is not orthostatic after two liters of fluid. He BP is up she feels comfortable going home. I will discharge home. Differential Diagnosis Differential diagnosis: Likely syncope due to orthostatic hypotension and dehydration Lab Data Result diagrams: 04/15/22 11:53 04/15/22 11:53 Labs: Lab Results 04/15/22 04/15/22 04/15/22 Range/Units 11:53 11:53 11:53 WBC 10.1 (4.8-10.8) X10*3/uL RBC 3.34 L (4.20-5.50) X10*6/uL Hgb 10.1 L (12.0-16.0) g/dl Hct 31.5 L (37.0-47.0) % MCV 94.3 (80.0-98.0) fL MCH 30.2 (27.0-33.0) pg MCHC 32.1 (31.0-35.0) g/dl RDW 14.2 (11.0-16.0) % Plt Count 240 (160-400) X10*3/uL MPV 10.2 (9.4-12.3) fL Absolute Nucleated RBC 0.000 (0.0-0.012) X10*3/uL Nucleated RBC % (auto) 0.0 (0.0-0.2) /100WBC PT (9.9-13.0) SEC INR (0.9-1.1) APTT (24.1-38.0) SEC Sodium 140 (135-145) mmol/L Potassium 4.1 (3.3-5.1) mmol/L Chloride 108 (96-108) mmol/L Carbon Dioxide 24 (22-29) mmol/L Anion Gap 12 (12-20) BUN 59 H (9-16) mg/dL Creatinine 2.66 H (0.5-1.4) mg/dL Estim Creat Clear Calc 22.5 Estimated GFR 18 Random Glucose 146 H (60-115) mg/dL Lactic Acid (0.5-2.0) mmol/L Calcium 8.6 (8.4-10.2) mg/dL Total Bilirubin (0.0-1.0) mg/dL Direct Bilirubin (0.0-0.5) mg/dL AST (5-31) U/L ALT (0-31) U/L Alkaline Phosphatase (39-117) U/L Ammonia (13-55) umol/L Troponin I High Sens 18.4 H D (<3.5-17.0) ng/L B-Natriuretic Peptide 143 H (<100) pg/mL Total Protein (6.5-8.0) g/dL Albumin (3.5-5.0) g/dL Lipase (8-78) U/L COVID-19 ([facility]) (Negative) COVID-19 Clin Com Influenza Type A ([facility]) (Negative) Influenza Type B ([facility]) (Negative) Influenza A & B Note Blood Type Antibody Screen 04/15/22 04/15/22 04/15/22 Range/Units 13:22 13:22 13:22 WBC (4.8-10.8) X10*3/uL RBC (4.20-5.50) X10*6/uL Hgb (12.0-16.0) g/dl Hct (37.0-47.0) % MCV (80.0-98.0) fL MCH (27.0-33.0) pg MCHC (31.0-35.0) g/dl RDW (11.0-16.0) % Plt Count (160-400) X10*3/uL MPV (9.4-12.3) fL Absolute Nucleated RBC (0.0-0.012) X10*3/uL Nucleated RBC % (auto) (0.0-0.2) /100WBC PT 11.4 (9.9-13.0) SEC INR 1.0 (0.9-1.1) APTT 28.6 (24.1-38.0) SEC Sodium (135-145) mmol/L Potassium (3.3-5.1) mmol/L Chloride (96-108) mmol/L Carbon Dioxide (22-29) mmol/L Anion Gap (12-20) BUN (9-16) mg/dL Creatinine (0.5-1.4) mg/dL Estim Creat Clear Calc Estimated GFR Random Glucose (60-115) mg/dL Lactic Acid (0.5-2.0) mmol/L Calcium (8.4-10.2) mg/dL Total Bilirubin 0.4 (0.0-1.0) mg/dL Direct Bilirubin 0.2 (0.0-0.5) mg/dL AST 11 (5-31) U/L ALT 12 (0-31) U/L Alkaline Phosphatase 102 (39-117) U/L Ammonia (13-55) umol/L Troponin I High Sens (<3.5-17.0) ng/L B-Natriuretic Peptide (<100) pg/mL Total Protein 6.7 (6.5-8.0) g/dL Albumin 3.4 L (3.5-5.0) g/dL Lipase 31 (8-78) U/L COVID-19 ([facility]) (Negative) COVID-19 Clin Com Influenza Type A ([facility]) (Negative) Influenza Type B ([facility]) (Negative) Influenza A & B Note Blood Type Antibody Screen 04/15/22 04/15/22 04/15/22 Range/Units 13:22 13:24 13:24 WBC (4.8-10.8) X10*3/uL RBC (4.20-5.50) X10*6/uL Hgb (12.0-16.0) g/dl Hct (37.0-47.0) % MCV (80.0-98.0) fL MCH (27.0-33.0) pg MCHC (31.0-35.0) g/dl RDW (11.0-16.0) % Plt Count (160-400) X10*3/uL MPV (9.4-12.3) fL Absolute Nucleated RBC (0.0-0.012) X10*3/uL Nucleated RBC % (auto) (0.0-0.2) /100WBC PT (9.9-13.0) SEC INR (0.9-1.1) APTT (24.1-38.0) SEC Sodium (135-145) mmol/L Potassium (3.3-5.1) mmol/L Chloride (96-108) mmol/L Carbon Dioxide (22-29) mmol/L Anion Gap (12-20) BUN (9-16) mg/dL Creatinine (0.5-1.4) mg/dL Estim Creat Clear Calc Estimated GFR Random Glucose (60-115) mg/dL Lactic Acid (0.5-2.0) mmol/L Calcium (8.4-10.2) mg/dL Total Bilirubin (0.0-1.0) mg/dL Direct Bilirubin (0.0-0.5) mg/dL AST (5-31) U/L ALT (0-31) U/L Alkaline Phosphatase (39-117) U/L Ammonia (13-55) umol/L Troponin I High Sens (<3.5-17.0) ng/L B-Natriuretic Peptide (<100) pg/mL Total Protein (6.5-8.0) g/dL Albumin (3.5-5.0) g/dL Lipase (8-78) U/L COVID-19 ([facility]) Negative (Negative) COVID-19 Clin Com See Note Influenza Type A ([facility]) Negative (Negative) Influenza Type B ([facility]) Negative (Negative) Influenza A & B Note See Note Blood Type A Positive Antibody Screen NEGATIVE 04/15/22 04/15/22 Range/Units 14:32 14:32 WBC (4.8-10.8) X10*3/uL RBC (4.20-5.50) X10*6/uL Hgb (12.0-16.0) g/dl Hct (37.0-47.0) % MCV (80.0-98.0) fL MCH (27.0-33.0) pg MCHC (31.0-35.0) g/dl RDW (11.0-16.0) % Plt Count (160-400) X10*3/uL MPV (9.4-12.3) fL Absolute Nucleated RBC (0.0-0.012) X10*3/uL Nucleated RBC % (auto) (0.0-0.2) /100WBC PT (9.9-13.0) SEC INR (0.9-1.1) APTT (24.1-38.0) SEC Sodium (135-145) mmol/L Potassium (3.3-5.1) mmol/L Chloride (96-108) mmol/L Carbon Dioxide (22-29) mmol/L Anion Gap (12-20) BUN (9-16) mg/dL Creatinine (0.5-1.4) mg/dL Estim Creat Clear Calc Estimated GFR Random Glucose (60-115) mg/dL Lactic Acid 1.0 (0.5-2.0) mmol/L Calcium (8.4-10.2) mg/dL Total Bilirubin (0.0-1.0) mg/dL Direct Bilirubin (0.0-0.5) mg/dL AST (5-31) U/L ALT (0-31) U/L Alkaline Phosphatase (39-117) U/L Ammonia 18 (13-55) umol/L Troponin I High Sens (<3.5-17.0) ng/L B-Natriuretic Peptide (<100) pg/mL Total Protein (6.5-8.0) g/dL Albumin (3.5-5.0) g/dL Lipase (8-78) U/L COVID-19 ([facility]) (Negative) COVID-19 Clin Com Influenza Type A ([facility]) (Negative) Influenza Type B ([facility]) (Negative) Influenza A & B Note Blood Type Antibody Screen ECG Data Attestation: I personally reviewed and interpreted this ECG as follows: ECG interpretation date: 04/15/22 ECG interpretation time: 12:41 Prior ECG tracings: available for review Interpretation: Rate 69 normal sinus rhythm normal intervals no signs of ischemia Discharge Plan Discharge Clinical Impression: Syncope, Acute hypotension Patient Disposition: Home, Self-Care Instructions: Syncope (ED) Additional Instructions: Please call to follow up. Please return if you have any other concerns Prescriptions: No Action furosemide 40 mg tablet 40 mg PO DAILY Qty: 90 3RF Hold Instructions: Resume on 03/27/22. lorazepam 0.5 mg Tablet 0.5 mg PO BID PRN (Reason: Anxiety) 0RF allopurinol 100 mg Tablet 100 mg PO DAILY 0RF aspirin 81 mg Tablet,Delayed Release (Dr/Ec) 81 mg PO DAILY 0RF Hold Instructions: Resume on 01/13/21. tamsulosin 0.4 mg capsule 0.4 mg PO DAILY@1700 0RF ferrous sulfate [iron] 325 mg (65 mg iron) Tablet 325 mg PO DAILY 0RF nitroglycerin 0.4 mg Tablet, Sublingual 0.4 mg SUBLINGUAL Q5M PRN (Reason: Chest Pain) 0RF melatonin 5 mg Tablet 5 mg PO BEDTIME PRN (Reason: Sleep) 0RF gabapentin 100 mg capsule 200 mg PO TID 0RF trazodone 50 mg tablet 0.5 tab PO BEDTIME PRN (Reason: Sleep) 0RF meloxicam 7.5 mg tablet 1 tab PO DAILY 0RF Hold Instructions: Resume on 03/31/22. pantoprazole 40 mg tablet,delayed release (DR/EC) 1 tab PO DAILY 0RF atorvastatin 80 mg tablet 80 mg PO BEDTIME 0RF Tradjenta 5 mg tablet 5 mg PO DAILY 0RF metoprolol succinate 25 mg tablet extended release 24 hr 1 tab PO DAILY 0RF lisinopril 5 mg tablet 5 mg PO BEDTIME Qty: 0 0RF Hold Instructions: Resume on 03/31/22. acetaminophen 500 mg tablet 1 tab PO Q6H PRN (Reason: Pain) 0RF cholecalciferol (vitamin D3) 25 mcg (1,000 unit) capsule 1 cap PO DAILY 0RF Lokelma 5 gram powder in packet 5 g PO Q OTHER DAY Qty: 11 0RF loperamide 2 mg capsule 2 mg PO DAILY PRN (Reason: Diarrhea) 0RF insulin aspart U-100 [Novolog Flexpen U-100 Insulin] 100 unit/mL (3 mL) Insulin Pen See Protocol sliding scale dose SUBCUT QIDWMHS 0RF Protocol: Insulin Correction Scale Less than or equal to 110 ---- Give (units): 0 111 to 150 Give (units): 0 151 to 200 Give (units): 2 201 to 250 Give (units): 4 251 to 300 Give (units): 6 301 to 350 Give (units): 8 Greater than 350 Give (units): 10 Call MD if Blood Glucose > : 350 metoclopramide HCl 5 mg tablet 5 mg PO TIDWM 0RF Rx Instructions: with meals Tresiba FlexTouch U-100 100 unit/mL (3 mL) insulin pen 32 unit subcut DAILY 0RF
[2022-04-15 12:22] LABS: B Type Natriuretic Peptide 143 pg/mL (<100); Troponin-I High Sensitivity 18.4 ng/L (<3.5-17.0)
[2022-04-15 13:38] LABS: Prothrombin Time 11.4 SEC (9.9-13.0)
[2022-04-15 13:41] LABS: Partial Thromboplastin Time 28.6 SEC (24.1-38.0)
[2022-04-15 13:48] LABS: COVID-19 Test Negative (Negative); IDNOW Serial# 55D5AD1C; Influenza A Negative (Negative); Influenza B2 Negative (Negative)
[2022-04-15] MEDS: Lactated Ringers 1,000 ML 999 ML IV (13:50)
[2022-04-15 13:52] LABS: Alanine Aminotransferase 12 U/L (0-31); Albumin Level 3.4 g/dL (3.5-5.0); Alkaline Phosphatase 102 U/L (39-117); Aspartate Amino Transferase 11 U/L (5-31); Bilirubin Direct 0.2 mg/dL (0.0-0.5); Bilirubin Total 0.4 mg/dL (0.0-1.0); Lipase 31 U/L (8-78); Total Protein 6.7 g/dL (6.5-8.0)
[2022-04-15 14:48] LABS: Ammonia 18 umol/L (13-55)
[2022-04-15 14:56] VITALS: BP 160/72; PULSE 65; RESP 16; TEMP 36.9; O2SAT 98
--- NOTE | 2022-04-15 15:44 | PHA.MEDREC ---
Pharmacy Consult ? Medication Reconciliation Pharmacy has completed the medication reconciliation.
== END 2022-04-15 18:48 | disposition home or self-care (01) ==
PROVIDERS: Emergency Provider Student in an Organized Health Care Education/Training Program
DX: R55 Syncope and collapse (principal); I95.9 Hypotension, unspecified; M54.2 Cervicalgia; R42 Dizziness and giddiness; R06.02 Shortness of breath; I10 Essential (primary) hypertension; I25.10 Atherosclerotic heart disease of native coronary artery without angina pectoris; E11.9 Type 2 diabetes mellitus without complications; Z20.822 Contact with and (suspected) exposure to COVID-19; Z79.4 Long term (current) use of insulin; Z79.899 Other long term (current) drug therapy; Z87.891 Personal history of nicotine dependence
CPT/HCPCS: 36415; 70450; 71045; 72125; 80048; 80076; 82140; 83605; 83690; 83880; 84484; 85027; 85610; 85730; 86850; 86900; 86901; 87040; 87502; 87635; 93005; 96360; 99283; 99284

== ENCOUNTER 2022-04-17 19:40 | Emergency (ER) | payer OTHER, SELFPAY ==
--- NOTE | ~2022-04-17 | XR_ITS ---
EXAMINATION: XR CHEST CLINICAL INFORMATION: Chest pain COMPARISON: Chest x-ray 04/15/2022 TECHNIQUE: Frontal portable view of the chest was obtained. 2130 hours FINDINGS: Status post median sternotomy. No change position of pacemaker leads in the heart. Heart size is normal. Cardiac mediastinal contours are normal. No acute abnormality. No pulmonary vascular congestion. No focal airspace disease. No pleural effusion or pneumothorax. Surgical clips right upper quadrant of abdomen. XR/XR chest 1V IMPRESSION: No acute abnormality of chest.
[2022-04-17 19:47] VITALS: BP 110/60; BP 96/52; PULSE 72; PULSE 77; RESP 17; TEMP 36.6; O2SAT 94; BMI 30.3
[2022-04-17 19:54] VITALS: BP 96/52; PULSE 77; RESP 17; TEMP 36.6; O2SAT 94
--- NOTE | 2022-04-17 20:12 | ECG_ITS ---
Test Reason : CHEST PAIN Blood Pressure : / mmHG Vent. Rate : 078 BPM Atrial Rate : 078 BPM P-R Int : 222 ms QRS Dur : 120 ms QT Int : 432 ms P-R-T Axes : 051 091 222 degrees QTc Int : 492 ms Atrial-sensed ventricular-paced rhythm with prolonged AV conduction Abnormal ECG When compared with ECG of 15-APR-2022 12:00, Vent. rate has increased BY 9 BPM Referred By: Pedro Mojica Electronically Signed By:Efren Diaz
[2022-04-17 21:04] LABS: Basophils Percent Auto 0.2 % (0-2); Eosinophils Absolute Auto 0.2 X10*3/uL (0.0-0.4); Eosinophils Percent Auto 1.1 % (0-4); Hematocrit 32.4 % (37.0-47.0); Hemoglobin 10.3 g/dl (12.0-16.0); Imm Gran Abs Auto 0.08 X10*3/uL (0.00-0.03); Imm Gran Pct Auto 0.6 % (0.0-0.4); Lymphocytes Absolute Auto 0.4 X10*3/uL (1.2-4.9); Lymphocytes Percent Auto 3.3 % (20-40); MANUAL DIFF FLAG SCAN; Mean Corpuscular HGB Conc 31.8 g/dl (31.0-35.0); Mean Corpuscular Hemoglobin 30.2 pg (27.0-33.0); Monocytes Absolute Auto 0.2 X10*3/uL (0.1-1.2); Monocytes Percent Auto 1.4 % (2-11); Neutrophils Absolute Auto 12.3 x10*3/uL (2.0-8.3); Neutrophils Percent Auto 93.4 % (45-73); Red Blood Count 3.41 X10*6/uL (4.20-5.50); Red Cell Distribution Width 14.1 % (11.0-16.0); SCAN SMEAR FLAG 1; White Blood Count 13.1 X10*3/uL (4.8-10.8)
[2022-04-17 21:21] LABS: COVID-19 Test Negative (Negative); IDNOW Serial# 55D5AD1C
[2022-04-17 21:25] LABS: Alanine Aminotransferase 18 U/L (0-31); Albumin Level 3.7 g/dL (3.5-5.0); Alkaline Phosphatase 115 U/L (39-117); Anion Gap 14 (12-20); Aspartate Amino Transferase 20 U/L (5-31); Bilirubin Total 0.4 mg/dL (0.0-1.0); Blood Urea Nitrogen 35 mg/dL (9-16); Calcium 9.5 mg/dL (8.4-10.2); Carbon Dioxide 24 mmol/L (22-29); Chloride 107 mmol/L (96-108); Creatinine Clr Calc Pharmacy 27.6; Estimated Glomerular Filt Rate 26; Glucose Random 87 mg/dL (60-115); Lipase 31 U/L (8-78); Potassium 4.6 mmol/L (3.3-5.1); Sodium 140 mmol/L (135-145); Total Protein 7.3 g/dL (6.5-8.0)
[2022-04-17 21:26] LABS: B Type Natriuretic Peptide 640 pg/mL (<100)
[2022-04-17 21:27] LABS: SLIDE REVIEW VERIFIED
[2022-04-17 21:28] LABS: Prothrombin Time 10.8 SEC (9.9-13.0)
[2022-04-17 21:42] LABS: Partial Thromboplastin Time 20.4 SEC (24.1-38.0)
--- NOTE | 2022-04-17 21:51 | PC.NURSE ---
Numerous attempts at vascular access by RN's as well as PA without success, aware.
--- NOTE | 2022-04-17 22:06 | ED_ITS ---
HPI - Chest Pain General Chief Complaint: Chest Pain Stated Complaint: cp Time Seen by Provider: 04/17/22 19:47 Source: patient Mode of arrival: EMS Limitations: no limitations History of Present Illness HPI narrative: 62-year-old female who presents emergency department for evaluation of chest pain. She states that she was at home, resting when she had a sudden onset of chest pain. The pain is a constant, heaviness. She points to her left chest when asked to localize the pain. The pain does radiate to her neck into her shoulder. The pain is 8/10 at its worst. states that she gets similar pain every month. She was seen in the emergency department on 04/15/2022 (2 days prior) for evaluation of hypotension and a fall. Patient does have autonomic dysfunction. Her evaluation included a negative CT scan of the head and cervical spine. Blood work was unremarkable and she was treated with normal saline IV with improvement of her blood pressure and discharged home. The patient presented to the emergency department on 03/22/2022 with similar chest pain. The patient had elevations in her troponin as high as 149 is felt that these elevations were secondary to her chronic kidney disease. She also had elevated troponins as high as 568 from 12/27/2021. MD complaint: chest pain Pertinent past history: coronary artery disease and CABG Onset (ago): minute(s) (45) Timing of current episode: constant Prior episodes: Yes Onset: during rest Pain location: left chest Pain radiation: neck and left shoulder Severity: severe Pain scale (0-10): 8 Quality: heaviness Relieving factors: nothing Exacerbating factors: nothing Treatment prior to arrival: aspirin Risk Factors Coronary artery disease risk factors: diabetes, hyperlipidemia and hypertension Related Data Home Medications Medication Instructions Recorded Confirmed lorazepam 0.5 mg tablet 0.5 mg PO BID PRN 09/14/20 04/15/22 allopurinol 100 mg tablet 100 mg PO DAILY 09/16/20 04/15/22 aspirin 81 mg tablet,delayed 81 mg PO DAILY 09/16/20 04/15/22 release insulin degludec 100 unit/mL (3 32 unit SUBCUT DAILY ml 11/13/20 04/15/22 mL) subcutaneous pen (Tresiba FlexTouch U-100 insulin) ferrous sulfate 325 mg (65 mg 325 mg PO DAILY 12/22/20 04/15/22 iron) tablet (iron) tamsulosin 0.4 mg capsule 0.4 mg PO DAILY@1700 12/22/20 04/15/22 melatonin 5 mg tablet 5 mg PO BEDTIME PRN 01/08/21 04/15/22 nitroglycerin 0.4 mg sublingual 0.4 mg SUBLINGUAL Q5M PRN 01/08/21 04/15/22 tablet gabapentin 100 mg capsule 200 mg PO TID 03/06/21 04/15/22 metoclopramide HCl 5 mg tablet 5 mg PO TIDWM 03/20/21 04/15/22 meloxicam 7.5 mg tablet 1 tab PO DAILY 01/10/22 04/15/22 pantoprazole 40 mg tablet,delayed 1 tab PO DAILY 01/10/22 04/15/22 release trazodone 50 mg tablet 0.5 tab PO BEDTIME PRN 01/10/22 04/15/22 atorvastatin 80 mg tablet 80 mg PO BEDTIME 01/21/22 04/15/22 linagliptin 5 mg tablet (Tradjenta) 5 mg PO DAILY 01/21/22 04/15/22 metoprolol succinate 25 mg 1 tab PO DAILY 02/19/22 04/15/22 tablet,extended release 24 hr acetaminophen 500 mg tablet 1 tab PO Q6H PRN 03/23/22 04/15/22 cholecalciferol (vitamin D3) 25 1 cap PO DAILY 03/23/22 04/15/22 mcg (1,000 unit) capsule insulin aspart U-100 100 unit/mL See Protocol SUBCUT QIDWMHS 04/15/22 04/15/22 (3 mL) subcutaneous pen (Novolog Flexpen U-100 Insulin aspart) loperamide 2 mg capsule 2 mg PO DAILY PRN 04/15/22 04/15/22 Previous Rx's Medication Instructions Recorded furosemide 40 mg tablet 40 mg PO DAILY #90 tab 12/06/20 lisinopril 5 mg tablet 5 mg PO BEDTIME #0 tab 02/20/22 sodium zirconium cyclosilicate 5 5 g PO Q OTHER DAY #11 ea 03/25/22 gram oral powder packet (Lokelma) hydrocodone 5 mg-acetaminophen 300 1 tab PO Q6H PRN #14 tab 04/18/22 mg tablet Allergies Allergy/AdvReac Type Severity Reaction Status Date / Time tetracycline [Tetracycline] Allergy Mild HIVES, Verified 12/27/21 12:22 anaphylaxis, anaphylaxis [facility] Past Medical History [facility] Narrative: Social history: The patient denies tobacco, alcohol and drug use. Medical History Acute heart failure with preserved ejection fraction Anemia Anxiety Arthritis Cardiac pacemaker in situ Carpal tunnel syndrome CHF (congestive heart failure) Chronic heart failure with preserved ejection fraction (HFpEF) COPD exacerbation Coronary artery disease CVA (cerebral vascular accident) Diabetes Fall Gastritis Gastroparesis Gastroparesis GERD (gastroesophageal reflux disease) Headache Heart failure with preserved ejection fraction HLD (hyperlipidemia) HTN (hypertension) HTN (hypertension) Hypocalcemia Hypoxia IBS (irritable bowel syndrome) Knee pain, left Myocardial infarct Nausea and vomiting Orthostasis Renal failure Suprapatellar effusion of knee T2DM (type 2 diabetes mellitus) UTI (urinary tract infection) Surgical History H/O Achilles tendon repair History of appendectomy History of bladder surgery History of carpal tunnel release History of total hysterectomy with bilateral salpingo-oophorectomy (BSO) Hx of amputation Hx of CABG (~2019) Hx of cholecystectomy Hx of endoscopy Hx of knee surgery Hx of tonsillectomy Family History Family History Father No problems noted. Mother Diabetes Hypercholesteremia Hypertension Stroke Social History Social History Household Members: Family Household Members Other:: 1 Housing: Apartment Do you presently have visiting nurse or other home services: Yes Alcohol intake: unknown Patient Tobacco Use Status: Former Tobacco user Years Smoked: 20 Second Hand Smoke Exposure: No Use of substances other than those prescribed or required for medical reasons: Unknown Advance Directives: Yes Advance Directives on File: Yes Advance Directives Date on File: 01/13/22 Patient : No service: No Current occupational status: disabled Physical Exam Vital Signs: Vital Signs: Last Vital Signs Temp 97.9 F 04/17/22 22:18 Pulse 70 04/17/22 23:00 Resp 12 04/17/22 23:00 BP 126/47 L 04/17/22 23:00 Pulse Ox 100 04/17/22 23:00 BMI result Body Mass Index 30.3 Const: General: cooperative and no acute distress Orientation/consciousness: oriented to person and oriented to place Limitations: no limitations HEENT: Head: Yes normal to inspection, Yes normocephalic and Yes atraumatic Ears: external ears normal General nose exam: Normal external nose present Face and sinus: Yes normal facial exam Mouth: Normal oral and palatal mucosa present Throat: Yes posterior oropharynx normal Eyes: General: appearance normal, both eyes and all related structures Pupi ls: Equal, round and reactive pupils present Neck: Neck: Yes normal visual inspection, Yes no lymphadenopathy, Yes trachea midline and Yes supple Chest: Chest palpation & inspection: normal inspection of the chest and normal palpation of entire chest wall Resp: Effort & Inspection: normal respiratory effort and able to speak in complete sentences Auscultation: clear to auscultation bilaterally Cardio: Rate: regular rate Rhythm: regular rhythm Heart sounds: S1 normal heart sound present, S2 normal heart sound present and no murmurs GI: Inspection: Yes normal to inspection Palpation (GI): Soft to palpation, nontender and no guarding Auscultation: normal bowel sounds : General: Yes no CVA tenderness Back/Spine/Pelvis: Back: no CVA tenderness Skin: General skin exam: no rashes or lesions noted Neuro: General: oriented to person and oriented to place Cranial nerves: Yes CN's II-XII intact bilaterally and Yes Equal, round and reactive pupils present Cognition (Neuro): normal cognition Motor exam (neuro): 5/5 motor strength present throughout Extrem: General: Yes normal to inspection Psych: Appearance: grossly normal Speech and movement: Normal speech and movement present Affect: normal affect Attitude: cooperative Thought process: Normal thought process present Thought content: Normal thought content present Course Course Course Narrative: 62-year-old female with complex medical history including diabetes mellitus, hypertension, hyperlipidemia, coronary disease, CABG in 2019 who presents emergency department for evaluation sudden onset left-sided chest pain radiating to her left neck left shoulder which came on at rest and lasted roughly 45 minutes. She has had similar presentations in the past and has had elevated troponin is which have been attributed to her chronic kidney disease. The patient's initial blood pressure was low 96/52 but repeat blood pressure was improved 126/47 without treatment. Vital signs were otherwise unremarkable. Examination was unremarkable. I will obtain a laboratory evaluation EKG and carine st x-ray. Patient did receive aspirin 324 mg by paramedics. I did order morphine 4 mg IV for her pain. 2228: Laboratory evaluation: Elevated BNP 640. Elevated high sensitive troponin I 885. Elevated BUN creatinine 35 and 1.95. COVID-19 was negative. EKG revealed a paced rhythm. The patient has a significantly elevated high sensitivity troponin I at 885 however she has had high elevations in the past and these have been attributed to her chronic kidney disease. I was ordered to get a repeat troponin at 00:00 hours so that we can trend the patient's troponin. 0133: The patient's repeat 3 hour high sensitive troponin I was 819. The fact that this went down is reassuring suggested the patient did not have myocardial injury is the cause of her chest pain. The patient did have significant chest wall tenderness and suspect that her pain is musculoskeletal and I did discuss this with her. She was given a 2nd dose of morphine 4 mg IV. The patient will be discharged home. She states that she has had Vicodin in the past and this has helped her discomfort therefore she was given a prescription for limited number of Vicodin. MDM - Chest Pain Lab Data Attestation: I reviewed the patient's lab results. Result diagrams: 04/17/22 20:57 04/17/22 20:57 Labs: Lab Results 04/17/22 04/17/22 04/17/22 Range/Units 20:57 20:57 20:57 WBC 13.1 H (4.8-10.8) X10*3/uL RBC 3.41 L (4.20-5.50) X10*6/uL Hgb 10.3 L (12.0-16.0) g/dl Hct 32.4 L (37.0-47.0) % MCV 95.0 (80.0-98.0) fL MCH 30.2 (27.0-33.0) pg MCHC 31.8 (31.0-35.0) g/dl RDW 14.1 (11.0-16.0) % Plt Count Not Reportable MPV Not Reportable Immature Gran % (Auto) 0.6 H (0.0-0.4) % Neut % (Auto) 93.4 H (45-73) % Lymph % (Auto) 3.3 L (20-40) % Sandoval % (Auto) 1.4 L (2-11) % Eos % (Auto) 1.1 (0-4) % Baso % (Auto) 0.2 (0-2) % Lymph # (Auto) 0.4 L (1.2-4.9) X10*3/uL [place] # (Auto) 0.2 (0.1-1.2) X10*3/uL Eos # (Auto) 0.2 (0.0-0.4) X10*3/uL Baso # (Auto) 0.0 (0.0-0.2) X10*3/uL Abs Immat Gran (auto) 0.08 H (0.00-0.03) X10*3/uL Absolute Neuts (auto) 12.3 H (2.0-8.3) x10*3/uL Absolute Nucleated RBC 0.000 (0.0-0.012) X10*3/uL Nucleated RBC % (auto) 0.0 (0.0-0.2) /100WBC Smear Tech's Comments VERIFIED PT (9.9-13.0) SEC INR (0.9-1.1) APTT (24.1-38.0) SEC Sodium 140 (135-145) mmol/L Potassium 4.6 (3.3-5.1) mmol/L Chloride 107 (96-108) mmol/L Carbon Dioxide 24 (22-29) mmol/L Anion Gap 14 (12-20) BUN 35 H (9-16) mg/dL Creatinine 1.95 H (0.5-1.4) mg/dL Estim Creat Clear Calc 27.6 Estimated GFR 26 Random Glucose 87 (60-115) mg/dL Calcium 9.5 D (8.4-10.2) mg/dL Total Bilirubin 0.4 (0.0-1.0) mg/dL AST 20 D (5-31) U/L ALT 18 (0-31) U/L Alkaline Phosphatase 115 (39-117) U/L Total Creatine Kinase 64 D (26-140) U/L Troponin I High Sens (<3.5-17.0) ng/L B-Natriuretic Peptide 640 H (<100) pg/mL Total Protein 7.3 (6.5-8.0) g/dL Albumin 3.7 (3.5-5.0) g/dL Lipase 31 (8-78) U/L COVID-19 (KENJI) (Negative) COVID-19 Clin Com 04/17/22 04/17/22 04/17/22 Range/Units 20:57 20:57 20:57 WBC (4.8-10.8) X10*3/uL RBC (4.20-5.50) X10*6/uL Hgb (12.0-16.0) g/dl Hct (37.0-47.0) % MCV (80.0-98.0) fL MCH (27.0-33.0) pg MCHC (31.0-35.0) g/dl RDW (11.0-16.0) % Plt Count MPV Immature Gran % (Auto) (0.0-0.4) % Neut % (Auto) (45-73) % Lymph % (Auto) (20-40) % Sandoval % (Auto) (2-11) % Eos % (Auto) (0-4) % Baso % (Auto) (0-2) % Lymph # (Auto) (1.2-4.9) X10*3/uL Sandoval # (Auto) (0.1-1.2) X10*3/uL Eos # (Auto) (0.0-0.4) X10*3/uL Baso # (Auto) (0.0-0.2) X10*3/uL Abs Immat Gran (auto) (0.00-0.03) X10*3/uL Absolute Neuts (auto) (2.0-8.3) x10*3/uL Absolute Nucleated RBC (0.0-0.012) X10*3/uL Nucleated RBC % (auto) (0.0-0.2) /100WBC Smear Tech's Comments PT 10.8 (9.9-13.0) SEC INR 1.0 (0.9-1.1) APTT 20.4 L D (24.1-38.0) SEC Sodium (135-145) mmol/L Potassium (3.3-5.1) mmol/L Chloride (96-108) mmol/L Carbon Dioxide (22-29) mmol/L Anion Gap (12-20) BUN (9-16) mg/dL Creatinine (0.5-1.4) mg/dL Estim Creat Clear Calc Estimated GFR Random Glucose (60-115) mg/dL Calcium (8.4-10.2) mg/dL Total Bilirubin (0.0-1.0) mg/dL AST (5-31) U/L ALT (0-31) U/L Alkaline Phosphatase (39-117) U/L Total Creatine Kinase (26-140) U/L Troponin I High Sens 885.0 H* D (<3.5-17.0) ng/L B-Natriuretic Peptide (<100) pg/mL Total Protein (6.5-8.0) g/dL Albumin (3.5-5.0) g/dL Lipase (8-78) U/L COVID-19 (KENIJ) Negative (Negative) COVID-19 Clin Com See Note 04/18/22 Range/Units 00:21 WBC (4.8-10.8) X10*3/uL RBC (4.20-5.50) X10*6/uL Hgb (12.0-16.0) g/dl Hct (37.0-47.0) % MCV (80.0-98.0) fL MCH (27.0-33.0) pg MCHC (31.0-35.0) g/dl RDW (11.0-16.0) % Plt Count MPV Immature Gran % (Auto) (0.0-0.4) % Neut % (Auto) (45-73) % Lymph % (Auto) (20-40) % Sandoval % (Auto) (2-11) % Eos % (Auto) (0-4) % Baso % (Auto) (0-2) % Lymph # (Auto) (1.2-4.9) X10*3/uL Sandoval # (Auto) (0.1-1.2) X10*3/uL Eos # (Auto) (0.0-0.4) X10*3/uL Baso # (Auto) (0.0-0.2) X10*3/uL Abs Immat Gran (auto) (0.00-0.03) X10*3/uL Absolute Neuts (auto) (2.0-8.3) x10*3/uL Absolute Nucleated RBC (0.0-0.012) X10*3/uL Nucleated RBC % (auto) (0.0-0.2) /100WBC Smear Tech's Comments PT (9.9-13.0) SEC INR (0.9-1.1) APTT (24.1-38.0) SEC Sodium (135-145) mmol/L Potassium (3.3-5.1) mmol/L Chloride (96-108) mmol/L Carbon Dioxide (22-29) mmol/L Anion Gap (12-20) BUN (9-16) mg/dL Creatinine (0.5-1.4) mg/dL Estim Creat Clear Calc Estimated GFR Random Glucose (60-115) mg/dL Calcium (8.4-10.2) mg/dL Total Bilirubin (0.0-1.0) mg/dL AST (5-31) U/L ALT (0-31) U/L Alkaline Phosphatase (39-117) U/L Total Creatine Kinase (26-140) U/L Troponin I High Sens 819.2 H* (<3.5-17.0) ng/L B-Natriuretic Peptide (<100) pg/mL Total Protein (6.5-8.0) g/dL Albumin (3.5-5.0) g/dL Lipase (8-78) U/L COVID-19 (KENJI) (Negative) COVID-19 Clin Com ECG Data ECG #1: Attestation: I personally reviewed and interpreted this ECG as follows: Interpretation: 210: Paced rhythm at a rate of 78 Discharge Plan Discharge Clinical Impression: Acute chest wall pain, Chronic renal insufficiency, Elevated troponin I level Patient Disposition: Home, Self-Care Instructions: Chest Wall Pain (ED) Additional Instructions: Your laboratory did reveal an elevated troponin however you have had similar elevations in troponin the past. Your EKG is consistent with your pacemaker/paced rhythm. Your chest x-ray was unremarkable. On your exam you had significant tenderness when I pushed on your chest suggesting that your pain is caused by inflammation of the joints of the muscles of your chest. You received morphine 4 mg IV x2. Continue taking Tylenol 500 mg pills, 2 pills every 6 hours as needed for pain. For pain not relieved by Tylenol take Vicodin/[place] 1 pill every 6 hours as nee ded for pain. This medication is a narcotic medication and can be addicting, if your concerned about addiction you can ask the pharmacist for less pills than prescribed or do not get the medication filled. Follow-up with your doctor in 2 days. Please return to the emergency department if your symptoms get worse or if you develop any symptoms that are concerning to you. Prescriptions: New hydrocodone-acetaminophen 5-300 mg tablet 1 tab PO Q6H PRN (Reason: pain) Qty: 14 0RF Rx Instructions: Patient may request partial fill No [facility] furosemide 40 mg tablet 40 mg PO DAILY Qty: 90 3RF Hold Instructions: Resume on 03/27/22. lorazepam 0.5 mg Tablet 0.5 mg PO BID PRN (Reason: Anxiety) 0RF allopurinol 100 mg Tablet 100 mg PO DAILY 0RF aspirin 81 mg Tablet,Delayed Release (Dr/Ec) 81 mg PO DAILY 0RF Hold Instructions: Resume on 01/13/21. tamsulosin 0.4 mg capsule 0.4 mg PO DAILY@1700 0RF ferrous sulfate [iron] 325 mg (65 mg iron) Tablet 325 mg PO DAILY 0RF nitroglycerin 0.4 mg Tablet, Sublingual 0.4 mg SUBLINGUAL Q5M PRN (Reason: Chest Pain) 0RF melatonin 5 mg Tablet 5 mg PO BEDTIME PRN (Reason: Sleep) 0RF gabapentin 100 mg capsule 200 mg PO TID 0RF trazodone 50 mg tablet 0.5 tab PO BEDTIME PRN (Reason: Sleep) 0RF meloxicam 7.5 mg tablet 1 tab PO DAILY 0RF Hold Instructions: Resume on 03/31/22. pantoprazole 40 mg tablet,delayed release (DR/EC) 1 tab PO DAILY 0RF atorvastatin 80 mg tablet 80 mg PO BEDTIME 0RF Tradjenta 5 mg tablet 5 mg PO DAILY 0RF metoprolol succinate 25 mg tablet extended release 24 hr 1 tab PO DAILY 0RF lisinopril 5 mg tablet 5 mg PO BEDTIME Qty: 0 0RF Hold Instructions: Resume on 03/31/22. acetaminophen 500 mg tablet 1 tab PO Q6H PRN (Reason: Pain) 0RF cholecalciferol (vitamin D3) 25 mcg (1,000 unit) capsule 1 cap PO DAILY 0RF Lokelma 5 gram powder in packet 5 g PO Q OTHER DAY Qty: 11 0RF loperamide 2 mg capsule 2 mg PO DAILY PRN (Reason: Diarrhea) 0RF insulin aspart U-100 [Novolog Flexpen U-100 Insulin] 100 unit/mL (3 mL) Insulin Pen See Protocol sliding scale dose SUBCUT QIDWMHS 0RF Protocol: Insulin Correction Scale Less than or equal to 110 ---- Give (units): 0 111 to 150 Give (units): 0 151 to 200 Give (units): 2 201 to 250 Give (units): 4 251 to 300 Give (units): 6 301 to 350 Give (units): 8 Greater than 350 Give (units): 10 Call MD if Blood Glucose > : 350 metoclopramide HCl 5 mg tablet 5 mg PO TIDWM 0RF Rx Instructions: with meals Tresiba FlexTouch U-100 100 unit/mL (3 mL) insulin pen 32 unit subcut DAILY 0RF
[2022-04-17] MEDS: Morphine Sulfate 4 MG/ML CARTRIDGE IVPUSH (22:14)
[2022-04-17 22:18] VITALS: BP 126/47; PULSE 67; RESP 14; TEMP 36.6; O2SAT 98
[2022-04-17 23:00] VITALS: BP 126/47; PULSE 70; RESP 12; O2SAT 100
[2022-04-18 00:55] LABS: Troponin-I High Sensitivity 819.2 ng/L (<3.5-17.0)
[2022-04-18] MEDS: Morphine Sulfate 4 MG/ML CARTRIDGE IVPUSH (01:39)
[2022-04-18 01:40] VITALS: BP 127/57; PULSE 69; RESP 14; TEMP 36.6; O2SAT 100
--- NOTE | 2022-04-18 02:01 | PC.NURSE ---
This [employer] called [facility] for a tx home at 0150 spoke with Jennifer. Jennifer stated no transfers available tonight. Booked for 8am
--- NOTE | 2022-04-18 07:41 | PC.NURSE ---
Addendum entered by Chyna Mclaughlin RN 04/18/22 07:42: Pt stating that she is nauseous and dizzy. Original Note: Pt pulled back onto tracker as she remains in the ED. Pt stating that she does not feel right. POCT stable. Dr. Gracia made aware, vitals stable as well.
[2022-04-18 07:43] VITALS: BP 138/65; PULSE 88; RESP 20; TEMP 37.1; O2SAT 94
[2022-04-18] MEDS: Metoclopramide HCl 10 MG/2 ML VIAL IM (08:21)
--- NOTE | 2022-04-18 08:27 | PC.NURSE ---
Pt vomiting and states that she is feeling dizzy. Dr. Gracia made aware. Eliud ordered IM and given.
[2022-04-21 14:46] LABS: Glucose, Whole Blood 136 mg/dL (60-115)
== END 2022-04-18 10:39 | disposition home or self-care (01) ==
PROVIDERS: Emergency Provider Emergency Medicine Emergency Medical Services
DX: R07.89 Other chest pain (principal); E11.22 Type 2 diabetes mellitus with diabetic chronic kidney disease; I13.0 Hypertensive heart and chronic kidney disease with heart failure and stage 1 through stage 4 chronic kidney disease, or unspecified chronic kidney disease; N18.9 Chronic kidney disease, unspecified; I50.9 Heart failure, unspecified; R77.8 Other specified abnormalities of plasma proteins; E78.5 Hyperlipidemia, unspecified; Z95.0 Presence of cardiac pacemaker; Z86.73 Personal history of transient ischemic attack (TIA), and cerebral infarction without residual deficits; Z20.822 Contact with and (suspected) exposure to COVID-19; Z79.82 Long term (current) use of aspirin; Z79.899 Other long term (current) drug therapy; Z79.02 Long term (current) use of antithrombotics/antiplatelets; Z79.4 Long term (current) use of insulin
CPT/HCPCS: 36415; 71045; 80053; 82550; 82947; 83690; 83880; 84484; 85025; 85610; 85730; 87635; 93005; 96372; 96374; 99284; J2270; J2765

== ENCOUNTER 2022-04-18 18:10 | Inpatient (IN) | payer OTHER, SELFPAY ==
--- NOTE | ~2022-04-18 | CT_ITS ---
EXAMINATION: CT HEAD WITHOUT CONTRAST CLINICAL INFORMATION: Confusion COMPARISON: None TECHNIQUE: Contiguous axial imaging was performed from the skull base to vertex without intravenous administration of contrast. This CT examination was performed using dose optimization techniques as appropriate, variously including the following: *Automated exposure control *Adjustment of mA and/or kV according to patient size (this includes techniques or standardized protocols for targeted exams where dose is matched to indication/reason for exam; i.e. extremities or head) *Use of iterative reconstruction technique DLP: 714 mGy-cm FINDINGS: There is no evidence of acute intracranial hemorrhage or territorial infarction. No abnormal mass effect or midline shift is seen. Mike to white matter differentiation is well preserved. No extra-axial fluid collections are identified. The ventricles are normal in size. There is no abnormal attenuation within the brain parenchyma. The osseous structures and soft tissues are normal. The mastoid air cells and visualized portions of the paranasal sinuses are well aerated. CT/CT head/brain wo con IMPRESSION: No acute intracranial pathology.
--- NOTE | ~2022-04-18 | CT_ITS ---
EXAMINATION: CT ABDOMEN AND PELVIS WITHOUT CONTRAST CLINICAL INFORMATION: Nausea, vomiting COMPARISON: 01/09/2022 TECHNIQUE: Multidetector volumetric imaging was performed from the lung bases through the pubic symphysis. Sagittal and coronal reformatted images were obtained on the technologist workstation. This CT examination was performed using dose optimization techniques as appropriate, variously including the following: *Automated exposure control *Adjustment of mA and/or kV according to patient size (this includes techniques or standardized protocols for targeted exams where dose is matched to indication/reason for exam; i.e. extremities or head) *Use of iterative reconstruction technique FINDINGS: The lack of intravenous contrast limits evaluation of the solid visceral organs including the liver, spleen, pancreas, and kidneys. LUNG BASES: Sternal wires. Partially imaged pacer wires. Heart size upper limits of normal. Trace pericardial fluid. LIVER, GALLBLADDER, AND BILIARY TREE: Limited non-contrast evaluation is normal. No gross focal hepatic lesion. Normal liver size and contour. No gross biliary ductal dilation. Status post cholecystectomy. PANCREAS: Pancreas is diffusely atrophic. No mass or peripancreatic inflammatory changes. SPLEEN: Limited non-contrast evaluation is normal. ADRENAL GLANDS: Normal; no adrenal mass. KIDNEYS AND URETERS: Limited non-contrast evaluation is normal. No hydronephrosis, hydroureter, or calculi seen. No perinephric stranding. GASTROINTESTINAL TRACT: Stomach and small bowel are nondilated. The appendix is not seen, query prior appendectomy. There is sigmoid diverticulosis. No evidence of colitis or diverticulitis. ABDOMINAL WALL: Small fat-containing umbilical hernia. There is a small supraumbilical fat-containing hernia. There is fat within the inguinal canals bilaterally. LYMPH NODES: No pathologically enlarged lymph nodes in the abdomen or pelvis. VASCULAR: Normal caliber abdominal aorta. BLADDER: There is mild wall thickening of the anterior aspect of the urinary bladder. No calculi. PELVIC VISCERA: Normal noncontrast appearance of the prostate and seminal vesicles. OSSEOUS STRUCTURES: Multilevel degenerative changes of the spine. No acute or suspicious osseous abnormalities. Right buttock pacer generator and sacral nerve stimulator. CT/CT abdomen pelvis wo con IMPRESSION: No evidence of bowel obstruction. No evidence of colitis or diverticulitis.
--- NOTE | ~2022-04-18 | XR_ITS ---
EXAMINATION: XR CHEST CLINICAL INFORMATION: Fever. COMPARISON: Chest radiograph dated from 04/17/2022 and 04/01/2022. TECHNIQUE: AP view of the chest was obtained. FINDINGS: Stable cardiomediastinal silhouette. Mediastinal surgical clips and sternotomy wires are seen. Left-sided pacer with leads in unchanged positioning to prior. Mildly increased interstitial markings when compared to studies from the beginning of March. No focal consolidation, pleural effusion or pneumothorax. No acute osseous abnormalities. The visualized upper abdomen is within normal limits. XR/XR chest 1V IMPRESSION: Increased interstitial thickening when compared to studies from the beginning on March which is a nonspecific finding and could be associated with small airways disease or atypical infections. No focal consolidation. No pleural effusion or pneumothorax.
[2022-04-18 18:25] VITALS: BP 179/73; PULSE 105; RESP 20; TEMP 38.8; O2SAT 94; BMI 28.8
--- NOTE | 2022-04-18 18:26 | ECG_ITS ---
Test Reason : NAUSEA Blood Pressure : / mmHG Vent. Rate : 103 BPM Atrial Rate : 103 BPM P-R Int : 218 ms QRS Dur : 114 ms QT Int : 350 ms P-R-T Axes : 069 101 261 degrees QTc Int : 458 ms Atrial-sensed ventricular-paced rhythm with prolonged AV conduction Abnormal ECG When compared with ECG of 17-APR-2022 21:09, Vent. rate has increased BY 25 BPM Referred By: Connie Menjivar Electronically Signed By:Efren Diaz
[2022-04-18 19:14] LABS: Basophils Percent Auto 0.1 % (0-2); Eosinophils Percent Auto 0.1 % (0-4); Hemoglobin 10.7 g/dl (12.0-16.0); Imm Gran Abs Auto 0.07 X10*3/uL (0.00-0.03); Imm Gran Pct Auto 0.5 % (0.0-0.4); Lymphocytes Absolute Auto 0.3 X10*3/uL (1.2-4.9); Lymphocytes Percent Auto 2.1 % (20-40); MANUAL DIFF FLAG SCAN; Mean Corpuscular HGB Conc 32.4 g/dl (31.0-35.0); Mean Corpuscular Hemoglobin 30.7 pg (27.0-33.0); Mean Corpuscular Volume 94.6 fL (80.0-98.0); Mean Platelet Volume 10.4 fL (9.4-12.3); Monocytes Absolute Auto 0.2 X10*3/uL (0.1-1.2); Monocytes Percent Auto 1.1 % (2-11); Neutrophils Absolute Auto 14.5 x10*3/uL (2.0-8.3); Neutrophils Percent Auto 96.1 % (45-73); Platelet Count 192 X10*3/uL (160-400); Red Blood Count 3.49 X10*6/uL (4.20-5.50); Red Cell Distribution Width 14.5 % (11.0-16.0); SCAN SMEAR FLAG 1
[2022-04-18] MEDS: ondansetron HCL 4 MG/2 ML VIAL IVPUSH (19:23)
[2022-04-18] MEDS: Famotidine/PF 20 MG/2 ML VIAL IVPUSH (19:23)
[2022-04-18] MEDS: Acetaminophen 325 MG TABLET 650 MG PO (19:23)
[2022-04-18] MEDS: 0.9 % Sodium Chloride 250 ML 999 ML IV (19:24)
[2022-04-18] MEDS: Piperacillin Sodium/Tazobactam 2.25 GM in 0.9 % Sodium Chloride 50 ML IV (19:24)
[2022-04-18 19:25] LABS: Lactic Acid 1.5 mmol/L (0.5-2.0)
--- NOTE | 2022-04-18 19:31 | ED.GENADULT ---
HPI - General Adult General Chief complaint: Nausea/Vomiting/Diarrhea Stated complaint: nausea/vomiting Time Seen by Provider: 04/18/22 18:14 Source: patient and EMS Mode of arrival: EMS History of Present Illness HPI narrative: 62-year-old female with history of HTN, HLD, DM, CAD s/p CABG, HFpEF, Hx Cardiac pacemaker, diabetic gastropathy, irritable bowel syndrome, history of CVA, arthritis, anemia, CKD, Hx Amputation, presenting to ED via EMS for nausea and vomiting since 14:30. Per patients Granddaughter who patient lives with, reports generalized fatigue/weakness, decreased p.o. intake, and multiple falls recently (none since prior ED visit). Per EMS patient also more confused than baseline and family wants her to go to [facility]. Patient denies fever, chills, chest pain, shortness of breath, abdominal pain, diarrhea, constipation, dysuria/hematuria Of note patient was seen in our ED yesterday for chest pain, negative workup and was discharged home, was also seen on 04/15 for evaluation of hypotension and fall treated with IVF with improvement and discharged home Onset (ago): day(s) Related Data Home Medications Medication Instructions Recorded Confirmed lorazepam 0.5 mg tablet 0.5 mg PO BID PRN 09/14/20 04/18/22 allopurinol 100 mg tablet 100 mg PO DAILY 09/16/20 04/18/22 aspirin 81 mg tablet,delayed 81 mg PO DAILY 09/16/20 04/18/22 release insulin degludec 100 unit/mL (3 32 unit SUBCUT DAILY ml 11/13/20 04/18/22 mL) subcutaneous pen (Tresiba FlexTouch U-100 insulin) ferrous sulfate 325 mg (65 mg 325 mg PO DAILY 12/22/20 04/18/22 iron) tablet (iron) tamsulosin 0.4 mg capsule 0.4 mg PO DAILY@1700 12/22/20 04/18/22 melatonin 5 mg tablet 5 mg PO BEDTIME PRN 01/08/21 04/18/22 nitroglycerin 0.4 mg sublingual 0.4 mg SUBLINGUAL Q5M PRN 01/08/21 04/18/22 tablet gabapentin 100 mg capsule 200 mg PO TID 03/06/21 04/18/22 metoclopramide HCl 5 mg tablet 5 mg PO TIDWM 03/20/21 04/18/22 meloxicam 7.5 mg tablet 1 tab PO DAILY 01/10/22 04/18/22 pantoprazole 40 mg tablet,delayed 1 tab PO BID 01/10/22 04/18/22 release trazodone 50 mg tablet 0.5 tab PO BEDTIME PRN 01/10/22 04/18/22 atorvastatin 80 mg tablet 80 mg PO BEDTIME 01/21/22 04/18/22 linagliptin 5 mg tablet (Tradjenta) 5 mg PO DAILY 01/21/22 04/18/22 metoprolol succinate 25 mg 1 tab PO DAILY 02/19/22 04/18/22 tablet,extended release 24 hr acetaminophen 500 mg tablet 1 tab PO Q6H PRN 03/23/22 04/18/22 cholecalciferol (vitamin D3) 25 1 cap PO DAILY 03/23/22 04/18/22 mcg (1,000 unit) capsule insulin aspart U-100 100 unit/mL See Protocol SUBCUT QIDWMHS 04/15/22 04/18/22 (3 mL) subcutaneous pen (Novolog Flexpen U-100 Insulin aspart) loperamide 2 mg capsule 2 mg PO DAILY PRN 04/15/22 04/18/22 furosemide 40 mg tablet 20 mg PO DAILY 04/18/22 04/18/22 Previous Rx's Medication Instructions Recorded lisinopril 5 mg tablet 5 mg PO BEDTIME #0 tab 02/20/22 sodium zirconium cyclosilicate 5 5 g PO Q OTHER DAY #11 ea 03/25/22 gram oral powder packet (Lokelma) Allergies Allergy/AdvReac Type Severity Reaction Status Date / Time tetracycline [Tetracycline] Allergy Mild HIVES, Verified 12/27/21 12:22 anaphylaxis, anaphylaxis Review of Systems Review of Systems: Constitutional: No Fever, No Chills, + Fatigue, + Malaise ENT/Mouth: No Ear Pain, No Nasal Congestion, No sore throat, No Rhinorrhea, No Swallowing Difficulty Eyes: No Eye Pain, No Swelling, No Redness, No Vision Changes Cardiovascular: No Chest Pain, No SOB, No Edema, No Palpitations Respiratory: No Cough, No Sputum, No Dyspnea Gastrointestinal: + Nausea, + Vomiting, No Diarrhea, No Constipation, No Abdominal pain Genitourinary: No Dysuria, No Urinary Frequency, No Hematuria, No Flank Pain, No Urinary Flow Changes Musculoskeletal: No joint pain, No Myalgias, No Joint Swelling Skin: No Skin Lesions, No rash Neuro: + Weakness, No Dizziness, No Headache Yes all other systems are reviewed and are negative Neurologic: Denies Abnormal speech present [facility] Past Medical History Attestation statement: The following information was validated with the patient. Medical History Acute heart failure with preserved ejection fraction Anemia Anxiety Arthritis Cardiac pacemaker in situ Carpal tunnel syndrome CHF (congestive heart failure) Chronic heart failure with preserved ejection fraction (HFpEF) COPD exacerbation Coronary artery disease CVA (cerebral vascular accident) Diabetes Fall Gastritis Gastroparesis Gastroparesis GERD (gastroesophageal reflux disease) Headache Heart failure with preserved ejection fraction HLD (hyperlipidemia) HTN (hypertension) HTN (hypertension) Hypocalcemia Hypoxia IBS (irritable bowel syndrome) Knee pain, left Myocardial infarct Nausea and vomiting Orthostasis Renal failure Suprapatellar effusion of knee T2DM (type 2 diabetes mellitus) UTI (urinary tract infection) Surgical History H/O Achilles tendon repair History of appendectomy History of bladder surgery History of carpal tunnel release History of total hysterectomy with bilateral salpingo-oophorectomy (BSO) Hx of amputation Hx of CABG (~2019) Hx of cholecystectomy Hx of endoscopy Hx of knee surgery Hx of tonsillectomy Family History Family History Father No problems noted. Mother Diabetes Hypercholesteremia Hypertension Stroke Social History Social History Household Members: Family Household Members Other:: 1 Housing: Apartment Do you presently have visiting nurse or other home services: Yes Alcohol intake: unknown Patient Tobacco Use Status: Former Tobacco user Years Smoked: 20 Second Hand Smoke Exposure: No Advance Directives: Yes Advance Directives on File: Yes Advance Directives Date on File: 01/13/22 service: No Current occupational status: disabled Physical Exam ED Vital Signs: Vital Signs - 24 hr 04/18/22 18:25 Temperature 101.8 F H Pulse Rate 105 H Respiratory Rate 20 Blood Pressure 179/73 H Pulse Oximetry 94 BMI result Body Mass Index 28.8 Const General: cooperative, no acute distress and alert Orientation/consciousness: patient oriented x3 Limitations: no limitations HENMT Head: Yes normal to inspection and Yes atraumatic Ears: hearing grossly normal bilaterally General nose exam: Normal external nose present Face and sinus: Yes normal facial exam Eyes General: appearance normal, both eyes and all related structures EOM: EOMs intact bilaterally Neck Neck: Yes normal visual inspection and Yes no meningeal signs Resp Effort & Inspection: normal respiratory effort and no respiratory distress Auscultation: clear to auscultation bilaterally, no rales, no rhonchi and no wheezes Cardio Rate: regular rate and tachycardic Heart sounds: S1 normal heart sound present and S2 normal heart sound present GI Inspection: Yes normal to inspection Palpation (GI): Soft to palpation, nontender, no guarding and not rigid Skin Rashes: no rashes Wounds: no wounds Neuro Other: difficulty lifting RLE off bed against gravity, but can bend at knee without difficulty General: patient oriented x3, tone normal, moves all extremities, no meningeal signs, no focal motor deficits and CN's II-XI intact bilaterally Cranial nerves: Yes CN's II-XII intact bilaterally Cognition (Neuro): normal cognition Speech: No Abnormal speech present Extrem General: Yes normal to inspection and Yes no pedal edema Course Course Course Narrative: XR chest 1V IMPRESSION: Increased interstitial thickening when compared to studies from the beginning on March which is a nonspecific finding and could be associated with small airways disease or atypical infections. ? No focal consolidation. No pleural effusion or pneumothorax. >> suspected aspiration pneumonia -1999--leukocytosis of 15.0 could be reactive from nausea/vomiting. H&H at baseline. Worsening acute on chronic renal failure with a BUN of 41, creatinine of 2.44 likely from dehydration. -BNP improved from priors. Lactic acid negative. COVID-19 and influenza negative >2111--patient admitted for further management CT head/brain wo con IMPRESSION: No acute intracranial pathology. Medical Decision Making MDM Narrative Medical decision making narrative: 62-year-old female with history of HTN, HLD, DM, CAD s/p CABG, HFpEF, Hx Cardiac pacemaker, diabetic gastropathy, irritable bowel syndrome, history of CVA, arthritis, anemia, CKD, Hx Amputation, presenting to ED via EMS for nausea and vomiting since 14:30. Per patients Granddaughter who patient lives with, reports generalized fatigue/weakness, decreased p.o. intake, and multiple falls recently (none since prior ED visit). On exam febrile 101.8 orally, tachycardic likely from fever, NAD, lungs CTA, abdomen soft/nontender, lethargic but alert, A&O x3. Concern for aspiration pneumonia vs viral illness including COVID-19/influenza vs gastroenteritis vs encephalopathy vs other infectious/metabolic etiology. R/o CVA although of lower concern. Lower concern for appendicitis/diverticulitis or cholecystitis/pancreatitis without tenderness on exam. Plan: EKG, labs, UA, CXR, Head CT, COVID-19/influenza testing, IVF, empiric IV antibiotics Medical Records Medical records reviewed: Yes I reviewed the patient's medical records. Lab Data Lab results reviewed: Yes I reviewed the patient's lab results. Result diagrams: 04/18/22 19:04 04/18/22 19:14 Labs: Lab Results 04/18/22 04/18/22 04/18/22 Range/Units 19:04 19:04 19:04 WBC 15.0 H (4.8-10.8) X10*3/uL RBC 3.49 L (4.20-5.50) X10*6/uL Hgb 10.7 L (12.0-16.0) g/dl Hct 33.0 L (37.0-47.0) % MCV 94.6 (80.0-98.0) fL MCH 30.7 (27.0-33.0) pg MCHC 32.4 (31.0-35.0) g/dl RDW 14.5 (11.0-16.0) % Plt Count 192 (160-400) X10*3/uL MPV 10.4 (9.4-12.3) fL Immature Gran % (Auto) 0.5 H (0.0-0.4) % Neut % (Auto) 96.1 H (45-73) % Lymph % (Auto) 2.1 L (20-40) % [place] % (Auto) 1.1 L (2-11) % Eos % (Auto) 0.1 (0-4) % Baso % (Auto) 0.1 (0-2) % Lymph # (Auto) 0.3 L (1.2-4.9) X10*3/uL [place] # (Auto) 0.2 (0.1-1.2) X10*3/uL Eos # (Auto) 0.0 (0.0-0.4) X10*3/uL Baso # (Auto) 0.0 (0.0-0.2) X10*3/uL Abs Immat Gran (auto) 0.07 H (0.00-0.03) X10*3/uL Absolute Neuts (auto) 14.5 H (2.0-8.3) x10*3/uL Absolute Nucleated RBC 0.000 (0.0-0.012) X10*3/uL Nucleated RBC % (auto) 0.0 (0.0-0.2) /100WBC Smear Tech's Comments VERIFIED Sodium (135-145) mmol/L Potassium (3.3-5.1) mmol/L Chloride (96-108) mmol/L Carbon Dioxide (22-29) mmol/L Anion Gap (12-20) BUN (9-16) mg/dL Creatinine (0.5-1.4) mg/dL Estim Creat Clear Calc Estimated GFR Random Glucose (60-115) mg/dL Lactic Acid 1.5 (0.5-2.0) mmol/L Calcium (8.4-10.2) mg/dL Magnesium (1.6-2.6) mg/dL Total Bilirubin (0.0-1.0) mg/dL Direct Bilirubin (0.0-0.5) mg/dL AST (5-31) U/L ALT (0-31) U/L Alkaline Phosphatase (39-117) U/L B-Natriuretic Peptide 380 H (<100) pg/mL Total Protein (6.5-8.0) g/dL Albumin (3.5-5.0) g/dL Lipase (8-78) U/L COVID-19 ([facility]) (Negative) COVID-19 Clin Com Influenza Type A ([facility]) (Negative) Influenza Type B ([facility]) (Negative) Influenza A & B Note 04/18/22 04/18/22 04/18/22 Range/Units 19:04 19:04 19:14 WBC (4.8-10.8) X10*3/uL RBC (4.20-5.50) X10*6/uL Hgb (12.0-16.0) g/dl Hct (37.0-47.0) % MCV (80.0-98.0) fL MCH (27.0-33.0) pg MCHC (31.0-35.0) g/dl RDW (11.0-16.0) % Plt Count (160-400) X10*3/uL MPV (9.4-12.3) fL Immature Gran % (Auto) (0.0-0.4) % Neut % (Auto) (45-73) % Lymph % (Auto) (20-40) % [place] % (Auto) (2-11) % Eos % (Auto) (0-4) % Baso % (Auto) (0-2) % Lymph # (Auto) (1.2-4.9) X10*3/uL [place] # (Auto) (0.1-1.2) X10*3/uL Eos # (Auto) (0.0-0.4) X10*3/uL Baso # (Auto) (0.0-0.2) X10*3/uL Abs Immat Gran (auto) (0.00-0.03) X10*3/uL Absolute Neuts (auto) (2.0-8.3) x10*3/uL Absolute Nucleated RBC (0.0-0.012) X10*3/uL Nucleated RBC % (auto) (0.0-0.2) /100WBC Smear Tech's Comments Sodium 138 (135-145) mmol/L Potassium 5.0 (3.3-5.1) mmol/L Chloride 105 (96-108) mmol/L Carbon Dioxide 23 (22-29) mmol/L Anion Gap 15 (12-20) BUN 41 H (9-16) mg/dL Creatinine 2.44 H (0.5-1.4) mg/dL Estim Creat Clear Calc 21.5 Estimated GFR 20 Random Glucose 258 H (60-115) mg/dL Lactic Acid (0.5-2.0) mmol/L Calcium 9.1 (8.4-10.2) mg/dL Magnesium 1.8 (1.6-2.6) mg/dL Total Bilirubin 0.9 (0.0-1.0) mg/dL Direct Bilirubin 0.4 (0.0-0.5) mg/dL AST 17 (5-31) U/L ALT 14 (0-31) U/L Alkaline Phosphatase 120 H (39-117) U/L B-Natriuretic Peptide (<100) pg/mL Total Protein 7.4 (6.5-8.0) g/dL Albumin 3.7 (3.5-5.0) g/dL Lipase 15 (8-78) U/L COVID-19 ([facility]I) Negative (Negative) COVID-19 Clin Com See Note Influenza Type A ([facility]) Negative (Negative) Influenza Type B ([facility]) Negative (Negative) Influenza A & B Note See Note Discharge Plan Discharge Clinical Impression: Aspiration pneumonia Patient Disposition: Admitted As Inpatient
[2022-04-18 19:32] LABS: COVID-19 Test Negative (Negative); IDNOW Serial# 16C4AD1C; Influenza A Negative (Negative); Influenza B2 Negative (Negative)
[2022-04-18 19:33] LABS: B Type Natriuretic Peptide 380 pg/mL (<100)
[2022-04-18 19:36] LABS: Alanine Aminotransferase 14 U/L (0-31); Albumin Level 3.7 g/dL (3.5-5.0); Alkaline Phosphatase 120 U/L (39-117); Anion Gap 15 (12-20); Aspartate Amino Transferase 17 U/L (5-31); Bilirubin Direct 0.4 mg/dL (0.0-0.5); Bilirubin Total 0.9 mg/dL (0.0-1.0); Blood Urea Nitrogen 41 mg/dL (9-16); Calcium 9.1 mg/dL (8.4-10.2); Carbon Dioxide 23 mmol/L (22-29); Chloride 105 mmol/L (96-108); Creatinine Clr Calc Pharmacy 21.5; Estimated Glomerular Filt Rate 20; Glucose Random 258 mg/dL (60-115); Lipase 15 U/L (8-78); Magnesium 1.8 mg/dL (1.6-2.6); Sodium 138 mmol/L (135-145); Total Protein 7.4 g/dL (6.5-8.0)
[2022-04-18 19:40] LABS: SLIDE REVIEW VERIFIED
--- NOTE | 2022-04-18 20:01 | PC.NURSE ---
Took report from Chance to assume care of PT, Pt resting, NAD, call light in reach, this RN [id number] to monitor.
[2022-04-18] MEDS: 0.9 % Sodium Chloride 500 ML 999 ML IV (20:40)
--- NOTE | 2022-04-18 20:43 | PHA.MEDREC ---
Pharmacy Consult ? Medication Reconciliation Pharmacy has completed the medication reconciliation. Spoke to patient's nurse Tosha ([phone]) who confirmed med list.
[2022-04-18 22:04] LABS: Appearance Urine CLEAR; Color Urine YELLOW; Glucose Urine UA 500 MG/DL (NEG); Leukocyte Esterase Urine NEG (NEG); Nitrite Urine NEG (NEG); PH 5.5 (5.0-8.0); UACC Culture Trigger NO; Urine Blood 1+ (NEG); Urine Ketones NEG (NEG); Urine Protein 2+ MG/DL (NEG-TRACE)
[2022-04-18 22:20] LABS: Ammonia 34 umol/L (13-55)
[2022-04-18] MEDS: vancomycin HCL 750 MG in 0.9 % Sodium Chloride 250 ML 265 MG IV (22:27)
--- NOTE | 2022-04-18 22:28 | P.HPHOSP_ITS ---
History of Present Illness Date of Service: 04/18/22 Chief Complaint: nausea/vomiting 62-year-old female with a past medical history of hypertension, hyperlipidemia, diabetes, CAD status post CABG, diabetic gastroparesis, IBS, history of toe amputations, anxiety, depression, osteoarthritis, history of autonomic dysfunction, chronic kidney disease presented to the hospital with a chief complaint of nausea vomiting. patient reported that this often doses started of nausea and vomiting; had multiple episodes of vomiting; denies any blood in the vomitus. Reports he had similar episodes in the past. Denies any abdominal discomfort or diarrhea. Denies any chest pain or palpitations. Patient denies any cough or sputum production. Review of all other systems is negative except mentioned above ER course: Per ER team patient noted to be febrile; on labs noted to elevated creatinine; chest x-ray showed findings concerning for atypical pneumonia. Given antibiotics. CT head showed no acute findings. Admitted for further management. [facility] Medical History Acute heart failure with preserved ejection fraction Anemia Anxiety Arthritis Cardiac pacemaker in situ Carpal tunnel syndrome CHF (congestive heart failure) Chronic heart failure with preserved ejection fraction (HFpEF) COPD exacerbation Coronary artery disease CVA (cerebral vascular accident) Diabetes Fall Gastritis Gastroparesis Gastroparesis GERD (gastroesophageal reflux disease) Headache Heart failure with preserved ejection fraction HLD (hyperlipidemia) HTN (hypertension) HTN (hypertension) Hypocalcemia Hypoxia IBS (irritable bowel syndrome) Knee pain, left Myocardial infarct Nausea and vomiting Orthostasis Renal failure Suprapatellar effusion of knee T2DM (type 2 diabetes mellitus) UTI (urinary tract infection) Family History Father No problems noted. Mother Diabetes Hypercholesteremia Hypertension Stroke Surgical History H/O Achilles tendon repair History of appendectomy History of bladder surgery History of carpal tunnel release History of total hysterectomy with bilateral salpingo-oophorectomy (BSO) Hx of amputation Hx of CABG (~2019) Hx of cholecystectomy Hx of endoscopy Hx of knee surgery Hx of tonsillectomy Social History Household Members: Family Household Members Other:: 1 Housing: Apartment Do you presently have visiting nurse or other home services: Yes Alcohol intake: unknown Patient Tobacco Use Status: Former Tobacco user Years Smoked: 20 Second Hand Smoke Exposure: No Advance Directives: Yes Advance Directives on File: Yes Advance Directives Date on File: 01/13/22 service: No Current occupational status: disabled Meds Allergies Allergy/AdvReac Type Severity Reaction Status Date / Time tetracycline [Tetracycline] Allergy Mild HIVES, Verified 12/27/21 12:22 anaphylaxis, anaphylaxis Active Medications: Current Medications Acetaminophen (Acetaminophen 325 Mg Tablet) 650 mg PO Q6H PRN PRN Reason: Pain, Mild (Pain Scale 1-3) Albuterol/Ipratropium (Albuterol/Iprat 2.5/0.5mg 3 Ml Ampul.Neb) 3 ml INHALE RQ4H PRN PRN Reason: Shortness of Breath/Wheezing Allopurinol (Allopurinol 100 Mg Tablet) 100 mg PO DAILY LAW Aspirin (Aspirin Enteric Coated 81 Mg Tablet.Dr) 81 mg PO DAILY [facility] Dextrose (Dextrose 50 % 25 Gm/50 Ml Syringe) 25 gm IVPUSH Q15M PRN; Protocol PRN Reason: per Hypoglycemia Standing Ord. Gabapentin (Gabapentin 100 Mg Capsule) 200 mg PO TID [facility] Glucose (Glucose Gel 15 Gm Gel..Gram.) 15 gm PO Q15M PRN; Protocol PRN Reason: per Hypoglycemia Standing Ord. Heparin Sodium (Porcine) (Heparin Sodium,Porcine 5,000 Unit/Ml Vial) 5,000 unit SUBCUT Q8H [facility] Vancomycin HCl 1,000 mg/ (Sodium Chloride) 270 mls @ 270 mls/hr IV Q24H [facility] Piperacillin Sod/Tazobactam (Sod 3.375 gm/ Sodium Chloride) 50 mls @ 100 mls/hr IV Q8H [facility] Sodium Chloride (Ns) 1,000 mls @ 50 mls/hr IVCONT .Q20H [facility] Insulin Glargine (Insulin Glargine,Hum.Rec.Anlog 100 Unit/Ml 10 Ml Vial) 10 unit SUBCUT BEDTIME LAW Insulin Human Lispro (Insulin Lispro 100 Unit/Ml 3 Ml Vial) 0 unit SUBCUT QIDACHS LAW; Protocol Loperamide HCl (Loperamide Hcl 2 Mg Capsule) 2 mg PO DAILY PRN PRN Reason: Diarrhea Lorazepam (Lorazepam 0.5 Mg Tablet) 0.5 mg PO BID PRN PRN Reason: Anxiety Melatonin (Melatonin 3 Mg Tablet) 6 mg PO BEDTIME PRN PRN Reason: Insomnia Metoclopramide HCl (Metoclopramide Hcl 10 Mg/2 Ml Vial) 5 mg IVPUSH Q6H PRN PRN Reason: Nausea and Vomiting Metoprolol Succinate (Metoprolol Succinate Er 25 Mg Tab.Er.24h) 25 mg PO DAILY [facility]; Protocol Nitroglycerin (Nitroglycerin 0.4 Mg Tab.Subl) 0.4 mg SUBLINGUAL Q5M PRN PRN Reason: Chest Pain Non-Formulary Medication (Pantoprazole) 1 tab PO BID [facility] Pharmacy Consult (Consult Rx Perform Med Rec) 1 each MISCELLANE ONCE PRN PRN Reason: Consult order Pharmacy Consult (Consult Rx Vancomycin Dosing) 1 each MISCELLANE DAILY PRN PRN Reason: Consult order Senna (Sennosides 8.6 Mg Tablet) 17.2 mg PO BEDTIME PRN PRN Reason: Constipation Sodium Chloride (0.9 % Sodium Chloride Flush 3 Ml Syringe) 3 ml IVFLUSH QSHIFT [facility] Tamsulosin HCl (Tamsulosin Hcl 0.4 Mg Capsule) 0.4 mg PO DAILY@1700 [facility] Trazodone HCl (Trazodone Hcl 25 Mg Halftab) 25 mg PO BEDTIME PRN PRN Reason: Sleep Vitamin D (Cholecalciferol (Vitamin D3) 25 Mcg Tablet) 25 mcg PO DAILY [facility] Home Medications Medication Instructions Recorded Confirmed Last Taken Type lorazepam 0.5 mg tablet 0.5 mg PO BID PRN 09/14/20 04/18/22 03/22/22 History allopurinol 100 mg tablet 100 mg PO DAILY 09/16/20 04/18/22 04/17/22 History aspirin 81 mg tablet,delayed 81 mg PO DAILY 09/16/20 04/18/22 04/17/22 History release insulin degludec 100 unit/mL (3 32 unit SUBCUT DAILY ml 11/13/20 04/18/22 04/17/22 History mL) subcutaneous pen (Tresiba FlexTouch U-100 insulin) ferrous sulfate 325 mg (65 mg 325 mg PO DAILY 12/22/20 04/18/22 04/17/22 History iron) tablet (iron) tamsulosin 0.4 mg capsule 0.4 mg PO DAILY@1700 12/22/20 04/18/22 04/17/22 History melatonin 5 mg tablet 5 mg PO BEDTIME PRN 01/08/21 04/18/22 04/14/22 History nitroglycerin 0.4 mg sublingual 0.4 mg SUBLINGUAL Q5M PRN 01/08/21 04/18/22 03/22/22 History tablet gabapentin 100 mg capsule 200 mg PO TID 03/06/21 04/18/22 04/17/22 History metoclopramide HCl 5 mg tablet 5 mg PO TIDWM 03/20/21 04/18/22 04/17/22 History meloxicam 7.5 mg tablet 1 tab PO DAILY 01/10/22 04/18/22 04/17/22 History pantoprazole 40 mg tablet,delayed 1 tab PO BID 01/10/22 04/18/22 04/17/22 Histo ry release trazodone 50 mg tablet 0.5 tab PO BEDTIME PRN 01/10/22 04/18/22 04/17/22 History atorvastatin 80 mg tablet 80 mg PO BEDTIME 01/21/22 04/18/22 04/17/22 History linagliptin 5 mg tablet (Tradjenta) 5 mg PO DAILY 01/21/22 04/18/22 04/17/22 History metoprolol succinate 25 mg 1 tab PO DAILY 02/19/22 04/18/22 04/17/22 History tablet,extended release 24 hr acetaminophen 500 mg tablet 1 tab PO Q6H PRN 03/23/22 04/18/22 03/22/22 History cholecalciferol (vitamin D3) 25 1 cap PO DAILY 03/23/22 04/18/22 04/17/22 History mcg (1,000 unit) capsule insulin aspart U-100 100 unit/mL See Protocol SUBCUT QIDWMHS 04/15/22 04/18/22 04/18/22 History (3 mL) subcutaneous pen (Novolog Flexpen U-100 Insulin aspart) loperamide 2 mg capsule 2 mg PO DAILY PRN 04/15/22 04/18/22 Unknown History furosemide 40 mg tablet 20 mg PO DAILY 04/18/22 04/18/22 04/17/22 History Physical Exam Vital Signs and Narrative: Vital Signs: Last Vital Signs Temp 101.8 F H 04/18/22 18:25 Pulse 105 H 04/18/22 18:25 Resp 20 04/18/22 18:25 BP 179/73 H 04/18/22 18:25 Pulse Ox 94 04/18/22 18:25 BMI result Body Mass Index 28.8 Gen: Appears be in no acute distress HEENT: NCAT, Moist mucosa. Pulmonary: Vesicular breath sounds, fair air entry CVS: Normal S1-S2 Abdomen: BS+, Soft, Nontender Extremities: Warm well perfused Neuro: Alert and awake. Results Labs CBC and Chem 7: 04/18/22 19:04 04/18/22 19:14 Labs: Laboratory Results - last 24 hr 04/18/22 04/18/22 04/18/22 19:04 19:04 19:04 MCV 94.6 MCH 30.7 MCHC 32.4 RDW 14.5 Plt Count 192 MPV 10.4 Immature Gran % (Auto) 0.5 H Neut % (Auto) 96.1 H Lymph % (Auto) 2.1 L [place] % (Auto) 1.1 L Eos % (Auto) 0.1 Baso % (Auto) 0.1 Lymph # (Auto) 0.3 L [place] # (Auto) 0.2 Eos # (Auto) 0.0 Baso # (Auto) 0.0 Abs Immat Gran (auto) 0.07 H Absolute Neuts (auto) 14.5 H Absolute Nucleated RBC 0.000 Nucleated RBC % (auto) 0.0 Smear Tech's Comments VERIFIED Anion Gap Estim Creat Clear Calc Estimated GFR Random Glucose Lactic Acid 1.5 Calcium Magnesium Total Bilirubin Direct Bilirubin AST ALT Alkaline Phosphatase Ammonia B-Natriuretic Peptide 380 H Total Protein Albumin Lipase Urine Color Urine Appearance Urine pH Ur Specific [place] Urine Protein Urine Glucose (UA) Urine Ketones Urine Blood Urine Nitrite Ur Leukocyte Esterase COVID-19 (KENJI) COVID-19 Clin Com Influenza Type A (LAWSON) Influenza Type B (LAWSON) Influenza A & B Note 04/18/22 04/18/22 04/18/22 19:04 19:04 19:14 MCV MCH MCHC RDW Plt Count MPV Immature Gran % (Auto) Neut % (Auto) Lymph % (Auto) [place] % (Auto) Eos % (Auto) Baso % (Auto) Lymph # (Auto) [place] # (Auto) Eos # (Auto) Baso # (Auto) Abs Immat Gran (auto) Absolute Neuts (auto) Absolute Nucleated RBC Nucleated RBC % (auto) Smear Tech's Comments Anion Gap 15 Estim Creat Clear Calc 21.5 Estimated GFR 20 Random Glucose 258 H Lactic Acid Calcium 9.1 Magnesium 1.8 Total Bilirubin 0.9 Direct Bilirubin 0.4 AST 17 ALT 14 Alkaline Phosphatase 120 H Ammonia B-Natriuretic Peptide Total Protein 7.4 Albumin 3.7 Lipase 15 Urine Color Urine Appearance Urine pH Ur Specific [place] Urine Protein Urine Glucose (UA) Urine Ketones Urine Blood Urine Nitrite Ur Leukocyte Esterase COVID-19 (KENJI) Negative COVID-19 Clin Com See Note Influenza Type A (LAWSON) Negative Influenza Type B (LAWSON) Negative Influenza A & B Note See Note 04/18/22 04/18/22 21:50 21:59 MCV MCH MCHC RDW Plt Count MPV Immature Gran % (Auto) Neut % (Auto) Lymph % (Auto) [place] % (Auto) Eos % (Auto) Baso % (Auto) Lymph # (Auto) [place] # (Auto) Eos # (Auto) Baso # (Auto) Abs Immat Gran (auto) Absolute Neuts (auto) Absolute Nucleated RBC Nucleated RBC % (auto) Smear Tech's Comments Anion Gap Estim Creat Clear Calc Estimated GFR Random Glucose Lactic Acid Calcium Magnesium Total Bilirubin Direct Bilirubin AST ALT Alkaline Phosphatase Ammonia 34 B-Natriuretic Peptide Total Protein Albumin Lipase Urine Color YELLOW Urine Appearance CLEAR Urine pH 5.5 Ur Specific [place] 1.020 Urine Protein 2+ H Urine Glucose (UA) 500 H Urine Ketones NEG Urine Blood 1+ H Urine Nitrite NEG Ur Leukocyte Esterase NEG COVID-19 (KENJI) COVID-19 Clin Com Influenza Type A (LAWSON) Influenza Type B (LAWSON) Influenza A & B Note Imaging Radiologist's Impressions: Impressions Chest X-Ray 04/18/22 18:36 IMPRESSION: Increased interstitial thickening when compared to studies from the beginning on March which is a nonspecific finding and could be associated with small airways disease or atypical infections. No focal consolidation. No pleural effusion or pneumothorax. Head CT 04/18/22 20:39 IMPRESSION: No acute intracranial pathology. Assessment and Plan (1) Pneumonia: Qualifiers: Aspiration pneumonia type: unspecified Laterality: bilateral Lung location: unspecified part of lung Pneumonia type: aspiration pneumonia Qualified Code(s): J69.0 - Pneumonitis due to inhalation of food and vomit Status: Acute (2) Diabetic gastroparesis: Status: Acute (3) T2DM (type 2 diabetes mellitus): Qualifiers: Diabetes mellitus correction insulin use: with correction use Diabetes mellitus complication status: with hyperglycemia Qualified Code(s): E11.65 - Type 2 diabetes mellitus with hyperglycemia; Z79.4 - MCC (current) use of insulin Status: Acute Plan 62-year-old female with a past medical history of hypertension, hyperlipidemia, diabetes, CAD status post CABG, diabetic gastroparesis, IBS, history of toe amputations, anxiety, depression, osteoarthritis, history of autonomic dysfun ction, chronic kidney disease presented to the hospital with a chief complaint of nausea vomiting. Noted to have following condition nausea/ vomiting: Likely in the setting of gastroparesis. Supportive care. Advance diet as tolerated. Reglan p.r.n.. Mild ISA on CKD: Patient baseline creatinine around 1.9. Creatinine presentation is 2.4. Avoid nephrotoxins. Likely prerenal. Hold home Lasix for now. Patient on gentle IV fluids. Fever: Chest x-ray showed possible atypical pneumonia; patient empirically started on IV vancomycin and Zosyn given concerns for healthcare associated infection. Urinalysis negative. Follow up cultures History of COPD: Stable. Patient on home oxygen. DuoNebs p.r.n.. History of diabetes: Will give the patient on Lantus 10 units plus insulin sliding scale. History of hypertension: Hold home lisinopril. Continue metoprolol. History of CAD: Continue home aspirin statin beta-héctor. DVT prophylaxis: Subcu heparin Code status: Full code Quality Stroke Does the patient have a stroke diagnosis?: No VTE Prior VTE?: No VTE Risk Level:: Medical - moderate - high VTE Device Contraindication: Treatment Not Indicated VTE Drug Contraindication: N/A - Med Ordered
[2022-04-18] MEDS: Ketorolac Tromethamine 15 MG/ML VIAL IVPUSH (22:30)
[2022-04-18 22:40] LABS: Bacteria Urine 3+ /LPF; Squamous Epithelial Cell Urine TRACE /LPF
[2022-04-18 22:48] LABS: Glucose, Whole Blood 227 mg/dL (60-115)
[2022-04-18] MEDS: Heparin Sodium,Porcine 5,000 UNIT/ML VIAL 5000 UNIT SUBCUT (23:05)
[2022-04-18] MEDS: Piperacillin Sodium/Tazobactam 3.375 GM in 0.9 % Sodium Chloride 50 ML IV (23:05)
[2022-04-18 23:39] VITALS: BP 170/79; PULSE 102; RESP 14; TEMP 37; O2SAT 100
[2022-04-18] MEDS: 0.9 % Sodium Chloride 1,000 ML 50 ML IVCONT (23:43)
--- NOTE | 2022-04-19 00:12 | PC.NURSE ---
Nathalia Guadarrama stated 04/19 22:00 Vanco q 24 to be started 12 hours after last dose at 21:09, Pharmacy stated that at this time changes to Vanco time to be changed by pharmacy in AM.
[2022-04-19 02:28] VITALS: BP 158/66; PULSE 102; RESP 18; O2SAT 95
[2022-04-19] MEDS: Piperacillin Sodium/Tazobactam 3.375 GM in 0.9 % Sodium Chloride 50 ML IV ×4 (04:23→22:22)
[2022-04-19] MEDS: Metoclopramide HCl 10 MG/2 ML VIAL 5 MG IVPUSH (04:28)
[2022-04-19 05:23] VITALS: BP 115/61; PULSE 109; RESP 18; O2SAT 94
[2022-04-19] MEDS: ondansetron HCL 4 MG/2 ML VIAL IVPUSH (06:09)
[2022-04-19 07:07] LABS: Anion Gap 15 (12-20); Blood Urea Nitrogen 37 mg/dL (9-16); Calcium 8.3 mg/dL (8.4-10.2); Carbon Dioxide 19 mmol/L (22-29); Chloride 109 mmol/L (96-108); Creatinine Clr Calc Pharmacy 24.8; Estimated Glomerular Filt Rate 23; Glucose Random 323 mg/dL (60-115); Potassium 5.2 mmol/L (3.3-5.1); Sodium 138 mmol/L (135-145)
[2022-04-19 07:09] LABS: Hematocrit 30.7 % (37.0-47.0); Hemoglobin 10.1 g/dl (12.0-16.0); Mean Corpuscular HGB Conc 32.9 g/dl (31.0-35.0); Mean Corpuscular Hemoglobin 30.6 pg (27.0-33.0); PLT CLUMP 1; Red Cell Distribution Width 14.2 % (11.0-16.0)
[2022-04-19 07:34] LABS: White Blood Count 32.8 X10*3/uL (4.8-10.8)
[2022-04-19 07:37] LABS: Glucose, Whole Blood 301 mg/dL (60-115)
[2022-04-19] MEDS: Insulin Lispro 100 UNIT/ML 3 ML VIAL SUBCUT ×4 (07:46→22:33)
[2022-04-19] MEDS: Gabapentin 100 MG CAPSULE 200 MG PO ×3 (07:47→22:21)
[2022-04-19] MEDS: Omeprazole 20 MG CAPSULE.DR PO ×2 (07:47→22:22)
[2022-04-19] MEDS: Cholecalciferol (Vitamin D3) 25 MCG TABLET PO (07:47)
[2022-04-19] MEDS: allopurinoL 100 MG TABLET 50 MG PO (07:47)
[2022-04-19] MEDS: Metoprolol Succinate ER 25 MG TAB.ER.24H PO (07:47)
[2022-04-19] MEDS: Aspirin Enteric Coated 81 MG TABLET.DR PO (07:47)
[2022-04-19] MEDS: Heparin Sodium,Porcine 5,000 UNIT/ML VIAL 5000 UNIT SUBCUT ×3 (07:48→22:22)
[2022-04-19 07:53] LABS: Band Neutrophils Percent 14 % (3-5); Lymphocytes Percent Manual 3 % (20-40); Monocytes Absolute Manual 0.3 X10*3/uL (0.1-1.2); Monocytes Percent Manual 1 % (2-11); Neutrophils Absolute Manual 31.5 X10*3/uL (2.0-8.3); Neutrophils Percent Manual 82 % (45-73)
[2022-04-19 07:56] LABS: RBC Morphology NORMAL
--- NOTE | 2022-04-19 10:38 | HE.PHANOTE ---
RE KAILA Patient was underdosed by ED provider at 10 mg/kg. Pharmacy attempted to add another dose for proper load but was not given due to RN and Hospitalist confusion. I have changed the scheduled dose to start at 1100. Next trough tomorrow at 0900
[2022-04-19] MEDS: Acetaminophen 325 MG TABLET 650 MG PO (10:52)
[2022-04-19] MEDS: LORazepam 0.5 MG TABLET PO (10:52)
[2022-04-19] MEDS: vancomycin HCL 500 MG in 0.9 % Sodium Chloride 100 ML 110 MG IV (11:40)
[2022-04-19 12:38] VITALS: BP 135/62; PULSE 80; RESP 12; TEMP 37.1; O2SAT 94
--- NOTE | 2022-04-19 13:04 | MHC.CM.PN ---
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
[2022-04-19 13:45] LABS: Glucose, Whole Blood 318 mg/dL (60-115)
[2022-04-19] MEDS: 0.9 % Sodium Chloride Flush 3 ML SYRINGE IVFLUSH (14:57)
[2022-04-19 16:18] VITALS: BP 144/67; PULSE 76; RESP 14; TEMP 36.9; O2SAT 97
[2022-04-19] MEDS: Tamsulosin HCL 0.4 MG CAPSULE PO (16:20)
[2022-04-19] MEDS: 0.9 % Sodium Chloride 1,000 ML 50 ML IVCONT (16:21)
[2022-04-19 18:14] LABS: Glucose, Whole Blood 235 mg/dL (60-115)
--- NOTE | 2022-04-19 18:42 | P.PNIM_ITS ---
Subjective Subjective Date of Service: 04/19/22 Interval History: pt seen at bedside she is lethargic but denies any complaints at this time. deneis any abd pain continues to have nausea and vomiting. no fever or chills Review of Systems Review of Systems: Yes all other systems are reviewed and are negative Physical Exam Vital Signs: Vital Signs: Last Vital Signs Temp 98.4 F 04/19/22 16:18 Pulse 76 04/19/22 16:18 Resp 14 04/19/22 16:18 BP 144/67 H 04/19/22 16:18 Pulse Ox 97 04/19/22 16:18 BMI result Body Mass Index 28.8 Const: Other: Lethargic, but wakes up and answers appropriately Resp: Other: crackles bilaterally Cardio: Other: Normal rate and rhythm GI: Other: Soft nontender, no rebound or guarding, has bilious vomiting in the bag next to her bed Extrem: Other: No lower extremity edema Objective Data Active Medications Acetaminophen (Acetaminophen 325 Mg Tablet) 650 mg PO Q6H PRN PRN Reason: Pain, Mild (Pain Scale 1-3) Last Admin: 04/19/22 10:52 Dose: 650 mg Documented by: LAURI Albuterol/Ipratropium (Albuterol/Iprat 2.5/0.5mg 3 Ml Ampul.Neb) 3 ml INHALE Q4H PRN PRN Reason: Shortness of Breath/Wheezing Allopurinol (Allopurinol 100 Mg Tablet) 50 mg PO Q48H [facility] Last Admin: 04/19/22 07:47 Dose: 50 mg Documented by: LAURI Aspirin (Aspirin Enteric Coated 81 Mg Tablet.) 81 mg PO DAILY [facility] Last Admin: 04/19/22 07:47 Dose: 81 mg Documented by: LAURI Dextrose (Dextrose 50 % 25 Gm/50 Ml Syringe) 25 gm IVPUSH Q15M PRN; Protocol PRN Reason: per Hypoglycemia Standing Ord. Gabapentin (Gabapentin 100 Mg Capsule) 200 mg PO TID [facility] Last Admin: 04/19/22 14:57 Dose: 200 mg Documented by: JUSTIN Glucose (Glucose Gel 15 Gm Gel..Gram.) 15 gm PO Q15M PRN; Protocol PRN Reason: per Hypoglycemia Standing Ord. Heparin Sodium (Porcine) (Heparin Sodium,Porcine 5,000 Unit/Ml Vial) 5,000 unit SUBCUT Q8H [facility] Last Admin: 04/19/22 14:58 Dose: 5,000 unit Documented by: JUSTIN Piperacillin Sod/Tazobactam (Sod 3.375 gm/ Sodium Chloride) 50 mls @ 100 mls/hr IV Q6H [facility] Last Admin: 04/19/22 16:21 Dose: 100 mls/hr Documented by: JUSTIN Sodium Chloride (Ns) 1,000 mls @ 50 mls/hr IVCONT .Q20H [facility] Last Admin: 04/19/22 16:21 Dose: 50 mls/hr Documented by: JUSTIN Vancomycin HCl 500 mg/ Sodium (Chloride) 110 mls @ 110 mls/hr IV Q24H [facility] Last Infusion: 04/19/22 12:44 Dose: 0 mls/hr Documented by: JUSTIN Insulin Glargine (Insulin Glargine,Hum.Rec.Anlog 100 Unit/Ml 10 Ml Vial) 10 unit SUBCUT BEDTIME [facility] Insulin Human Lispro (Insulin Lispro 100 Unit/Ml 3 Ml Vial) 0 unit SUBCUT QIDACHS [facility]; Protocol Last Admin: 04/19/22 13:48 Dose: 8 unit Documented by: JUSTIN Loperamide HCl (Loperamide Hcl 2 Mg Capsule) 2 mg PO DAILY PRN PRN Reason: Diarrhea Lorazepam (Lorazepam 0.5 Mg Tablet) 0.5 mg PO BID PRN PRN Reason: Anxiety Last Admin: 04/19/22 10:52 Dose: 0.5 mg Documented by: LAURI Melatonin (Melatonin 3 Mg Tablet) 6 mg PO BEDTIME PRN PRN Reason: Insomnia Metoclopramide HCl (Metoclopramide Hcl 10 Mg/2 Ml Vial) 5 mg IVPUSH Q6H PRN PRN Reason: Nausea and Vomiting Last Admin: 04/19/22 04:28 Dose: 5 mg Documented by: SEAN Metoprolol Succinate (Metoprolol Succinate Er 25 Mg Tab.Er.24h) 25 mg PO DAILY [facility]; Protocol Last Admin: 04/19/22 07:47 Dose: 25 mg Documented by: LAURI Nitroglycerin (Nitroglycerin 0.4 Mg Tab.Subl) 0.4 mg SUBLINGUAL Q5M PRN PRN Reason: Chest Pain Omeprazole (Omeprazole 20 Mg Capsule.) 20 mg PO BID [facility] Last Admin: 04/19/22 07:47 Dose: 20 mg Documented by: LAURI Pharmacy Consult (Consult Rx Perform Med Rec) 1 each MISCELLANE ONCE PRN PRN Reason: Consult order Pharmacy Consult (Consult Rx Vancomycin Dosing) 1 each MISCELLANE DAILY PRN PRN Reason: Consult order Senna (Sennosides 8.6 Mg Tablet) 17.2 mg PO BEDTIME PRN PRN Reason: Constipation Sodium Chloride (0.9 % Sodium Chloride Flush 3 Ml Syringe) [facility] Last Admin: 04/19/22 14:57 Dose: 3 ml Documented by: JUSTIN Sodium Chloride (0.9 % Sodium Chloride Flush 3 Ml Syringe) 3 ml IVFLUSH [facility] Last Admin: 04/19/22 14:59 Dose: Not Given Documented by: JUSTIN Non-Admin Reason: Duplicate Order Tamsulosin HCl (Tamsulosin Hcl 0.4 Mg Capsule) 0.4 mg PO DAILY@1700 [facility] Last Admin: 04/19/22 16:20 Dose: 0.4 mg Documented by: JUSTIN Trazodone HCl (Trazodone Hcl 25 Mg Halftab) 25 mg PO BEDTIME PRN PRN Reason: Sleep Vitamin D (Cholecalciferol (Vitamin D3) 25 Mcg Tablet) 25 mcg PO DAILY [facility] Last Admin: 04/19/22 07:47 Dose: 25 mcg Documented by: LAURI Labs CBC & Chem 7: 04/19/22 06:33 04/19/22 06:33 Labs: Laboratory Results - last 24 hr 04/18/22 04/18/22 04/18/22 19:04 19:04 19:04 MCV 94.6 MCH 30.7 MCHC 32.4 RDW 14.5 Plt Count 192 MPV 10.4 Immature Gran % (Auto) 0.5 H Neut % (Auto) 96.1 H Lymph % (Auto) 2.1 L [place] % (Auto) 1.1 L Eos % (Auto) 0.1 Baso % (Auto) 0.1 Lymph # (Auto) 0.3 L [place] # (Auto) 0.2 Eos # (Auto) 0.0 Baso # (Auto) 0.0 Abs Immat Gran (auto) 0.07 H Absolute Neuts (auto) 14.5 H Absolute Nucleated RBC 0.000 Nucleated RBC % (auto) 0.0 Neutrophils % (Manual) Band Neutrophils % Lymphocytes % (Manual) Monocytes % (Manual) Abs Neuts (Manual) Lymphocytes # (Manual) Monocytes # (Manual) Platelet Estimate Plt Morphology Comment RBC Morphology Smear Tech's Comments VERIFIED Anion Gap Estim Creat Clear Calc Estimated GFR POC Glucose Random Glucose Lactic Acid 1.5 Calcium Magnesium Total Bilirubin Direct Bilirubin AST ALT Alkaline Phosphatase Ammonia B-Natriuretic Peptide 380 H Total Protein Albumin Lipase Urine Color Urine Appearance Urine pH Ur Specific [place] Urine Protein Urine Glucose (UA) Urine Ketones Urine Blood Urine Nitrite Ur Leukocyte Esterase Urine RBC Urine WBC Ur Squamous Epith Cells Urine Bacteria COVID-19 (KENJI) COVID-19 Clin Com Influenza Type A (LAWSON) Influenza Type B (LAWSON) Influenza A & B Note 04/18/22 04/18/22 04/18/22 19:04 19:04 19:14 MCV MCH MCHC RDW Plt Count MPV Immature Gran % (Auto) Neut % (Auto) Lymph % (Auto) [place] % (Auto) Eos % (Auto) Baso % (Auto) Lymph # (Auto) [place] # (Auto) Eos # (Auto) Baso # (Auto) Abs Immat Gran (auto) Absolute Neuts (auto) Absolute Nucleated RBC Nucleated RBC % (auto) Neutrophils % (Manual) Band Neutrophils % Lymphocytes % (Manual) Monocytes % (Manual) Abs Neuts (Manual) Lymphocytes # (Manual) Monocytes # (Manual) Platelet Estimate Plt Morphology Comment RBC Morphology Smear Tech's Comments Anion Gap 15 Estim Creat Clear Calc 21.5 Estimated GFR 20 POC Glucose Random Glucose 258 H Lactic Acid Calcium 9.1 Magnesium 1.8 Total Bilirubin 0.9 Direct Bilirubin 0.4 AST 17 ALT 14 Alkaline Phosphatase 120 H Ammonia B-Natriuretic Peptide Total Protein 7.4 Albumin 3.7 Lipase 15 Urine Color Urine Appearance Urine pH Ur Specific [place] Urine Protein Urine Glucose (UA) Urine Ketones Urine Blood Urine Nitrite Ur Leukocyte Esterase Urine RBC Urine WBC Ur Squamous Epith Cells Urine Bacteria COVID-19 (KENJI) Negative COVID-19 Clin Com See Note Influenza Type A (LAWSON) Negative Influenza Type B (LAWSON) Negative Influenza A & B Note See Note 04/18/22 04/18/22 04/18/22 21:50 21:59 22:42 MCV MCH MCHC RDW Plt Count MPV Immature Gran % (Auto) Neut % (Auto) Lymph % (Auto) [place] % (Auto) Eos % (Auto) Baso % (Auto) Lymph # (Auto) [place] # (Auto) Eos # (Auto) Baso # (Auto) Abs Immat Gran (auto) Absolute Neuts (auto) Absolute Nucleated RBC Nucleated RBC % (auto) Neutrophils % (Manual) Band Neutrophils % Lymphocytes % (Manual) Monocytes % (Manual) Abs Neuts (Manual) Lymphocytes # (Manual) Monocytes # (Manual) Platelet Estimate Plt Morphology Comment RBC Morphology Smear Tech's Comments Anion Gap Estim Creat Clear Calc Estimated GFR POC Glucose 227 H Random Glucose Lactic Acid Calcium Magnesium Total Bilirubin Direct Bilirubin AST ALT Alkaline Phosphatase Ammonia 34 B-Natriuretic Peptide Total Protein Albumin Lipase Urine Color YELLOW Urine Appearance CLEAR Urine pH 5.5 Ur Specific [place] 1.020 Urine Protein 2+ H Urine Glucose (UA) 500 H Urine Ketones NEG Urine Blood 1+ H Urine Nitrite NEG Ur Leukocyte Esterase NEG Urine RBC 1-4 Urine WBC 1-4 Ur Squamous Epith Cells TRACE Urine Bacteria 3+ COVID-19 (KENJI) COVID-19 Clin Com Influenza Type A (LAWSON) Influenza Type B (LAWSON) Influenza A & B Note 04/19/22 04/19/22 04/19/22 06:33 06:33 07:31 MCV 93.0 MCH 30.6 MCHC 32.9 RDW 14.2 Plt Count TNP MPV TNP Immature Gran % (Auto) Cancelled Neut % (Auto) Cancelled Lymph % (Auto) Cancelled [place] % (Auto) Cancelled Eos % (Auto) Cancelled Baso % (Auto) Cancelled Lymph # (Auto) Cancelled [place] # (Auto) Cancelled Eos # (Auto) Cancelled Baso # (Auto) Cancelled Abs Immat Gran (auto) Cancelled Absolute Neuts (auto) Cancelled Absolute Nucleated RBC 0.000 Nucleated RBC % (auto) 0.0 Neutrophils % (Manual) 82 H Band Neutrophils % 14 H Lymphocytes % (Manual) 3 L Monocytes % (Manual) 1 L Abs Neuts (Manual) 31.5 H Lymphocytes # (Manual) 1.0 L Monocytes # (Manual) 0.3 Platelet Estimate TNP Plt Morphology Comment TNP RBC Morphology NORMAL Smear Tech's Comments Anion Gap 15 Estim Creat Clear Calc 24.8 Estimated GFR 23 POC Glucose 301 H Random Glucose 323 H Lactic Acid Calcium 8.3 L D Magnesium Total Bilirubin Direct Bilirubin AST ALT Alkaline Phosphatase Ammonia B-Natriuretic Peptide Total Protein Albumin Lipase Urine Color Urine Appearance Urine pH Ur Specific [place] Urine Protein Urine Glucose (UA) Urine Ketones Urine Blood Urine Nitrite Ur Leukocyte Esterase Urine RBC Urine WBC Ur Squamous Epith Cells Urine Bacteria COVID-19 (KENJI) COVID-19 Clin Com Influenza Type A (LAWSON) Influenza Type B (LAWSON) Influenza A & B Note 04/19/22 04/19/22 13:41 18:10 MCV MCH MCHC RDW Plt Count MPV Immature Gran % (Auto) Neut % (Auto) Lymph % (Auto) [place] % (Auto) Eos % (Auto) Baso % (Auto) Lymph # (Auto) [place] # (Auto) Eos # (Auto) Baso # (Auto) Abs Immat Gran (auto) Absolute Neuts (auto) Absolute Nucleated RBC Nucleated RBC % (auto) Neutrophils % (Manual) Band Neutrophils % Lymphocytes % (Manual) Monocytes % (Manual) Abs Neuts (Manual) Lymphocytes # (Manual) Monocytes # (Manual) Platelet Estimate Plt Morphology Comment RBC Morphology Smear Tech's Comments Anion Gap Estim Creat Clear Calc Estimated GFR POC Glucose 318 H 235 H Random Glucose Lactic Acid Calcium Magnesium Total Bilirubin Direct Bilirubin AST ALT Alkaline Phosphatase Ammonia B-Natriuretic Peptide Total Protein Albumin Lipase Urine Color Urine Appearance Urine pH Ur Specific [place] Urine Protein Urine Glucose (UA) Urine Ketones Urine Blood Urine Nitrite Ur Leukocyte Esterase Urine RBC Urine WBC Ur Squamous Epith Cells Urine Bacteria COVID-19 (KENJI) COVID-19 Clin Com Influenza Type A (LAWSON) Influenza Type B (LAWSON) Influenza A & B Note Microbiology Microbiology Results: Microbiology 04/18/22 19:12 Blood Culture - Preliminary Blood - Venous Prelim: GNR Gram Stain only 04/18/22 19:04 Blood Culture - Preliminary Blood - Venous Prelim: GNR Gram Stain only Assessment and Plan (1) Sepsis: Status: Acute (2) Atypical pneumonia: Status: Acute (3) ISA (acute kidney injury): Status: Acute (4) Nausea & vomiting: Status: Acute Plan 62-year-old female with a past medical history of hypertension, hyperlipidemia, diabetes, CAD status post CABG, diabetic gastroparesis, IBS, history of toe amputations, anxiety, depression, osteoarthritis, history of autonomic dysfunction, chronic kidney disease presented to the hospital with a chief complaint of nausea vomiting.? Found to have pneumonia # sepsis - leukocytosis, febrile on presentation - will treat with IV antibiotics - source possibly pneumonia - abdomen CT pending # pneumonia - aspiration versus atypical - patient recently had multiple admissions to the hospital - cover for Hcap - follow cultures # nausea vomiting - abdomen nontender - no rebound or guarding - likely secondary to gastroparesis but given continuous nausea and vomiting, will obtain CT abdomen - supportive care - Zofran p.r.n. # leukocytosis - likely secondary to pneumonia - patient on antibiotics - follow cultures - follow CBC History of COPD:? Stable.? Patient on home oxygen.? DuoNebs p.r.n.. ? History of diabetes:? Will give the patient on Lantus 10 units plus insulin sliding scale. ? History of hypertension:? Hold home lisinopril.? Continue metoprolol. ? History of CAD:? Continue home aspirin statin beta-héctor. DVT prophylaxis: Heparin subQ Quality Stroke Does the patient have a stroke diagnosis?: No VTE Prior VTE?: No VTE Risk Level:: Medical - moderate - high VTE Device Contraindication: Treatment Not Indicated VTE Drug Contraindication: N/A - Med Ordered
--- NOTE | 2022-04-19 19:29 | PC.NURSE ---
Pt. returned from CT scan in the ED
[2022-04-19 22:02] LABS: Glucose, Whole Blood 294 mg/dL (60-115)
[2022-04-19] MEDS: Insulin Glargine,Hum.rec.anlog 100 UNIT/ML 10 ML VIAL 10 UNIT SUBCUT (22:22)
[2022-04-20] VITALS: BP 119/55; PULSE 75; RESP 18; TEMP 36.7; O2SAT 98
[2022-04-20] MEDS: 0.9 % Sodium Chloride Flush 3 ML SYRINGE IVFLUSH (01:34)
[2022-04-20] MEDS: LORazepam 0.5 MG TABLET PO (02:17)
[2022-04-20] MEDS: Acetaminophen 325 MG TABLET 650 MG PO ×2 (03:08→14:20)
[2022-04-20 04:00] VITALS: BP 120/66; PULSE 76; RESP 18; TEMP 36.7; O2SAT 91
[2022-04-20] MEDS: Piperacillin Sodium/Tazobactam 3.375 GM in 0.9 % Sodium Chloride 50 ML IV (05:35)
[2022-04-20 07:42] LABS: Glucose, Whole Blood 124 mg/dL (60-115)
[2022-04-20 08:35] VITALS: BP 133/61; PULSE 84; RESP 15; TEMP 36.8; O2SAT 96
[2022-04-20 10:08] LABS: Vancomycin Trough 11.7 mcg/mL (10.0-20.0)
[2022-04-20] MEDS: Aspirin Enteric Coated 81 MG TABLET.DR PO (10:34)
[2022-04-20] MEDS: Omeprazole 20 MG CAPSULE.DR PO ×2 (10:34→22:31)
[2022-04-20] MEDS: Gabapentin 100 MG CAPSULE 200 MG PO ×3 (10:34→22:32)
[2022-04-20] MEDS: Heparin Sodium,Porcine 5,000 UNIT/ML VIAL 5000 UNIT SUBCUT ×3 (10:35→22:32)
[2022-04-20] MEDS: Cholecalciferol (Vitamin D3) 25 MCG TABLET PO (10:35)
[2022-04-20] MEDS: oxyCODONE HCl Immed Release 5 MG TABLET PO ×2 (10:35→22:31)
[2022-04-20] MEDS: Metoprolol Succinate ER 25 MG TAB.ER.24H PO (10:35)
[2022-04-20] MEDS: cefTRIAXone sodium 1 GM in 0.9 % Sodium Chloride 50 ML IV (11:12)
[2022-04-20 12:41] LABS: Glucose, Whole Blood 161 mg/dL (60-115)
[2022-04-20 12:54] VITALS: BP 105/41; PULSE 74; RESP 12
--- NOTE | 2022-04-20 13:01 | P.PNIM_ITS ---
Subjective Subjective Date of Service: 04/20/22 Interval History: Complaining of lower back pain and left upper arm pain at iv site , wants to go home currently on IV fluids, IV Vanco and Zosyn for Gram-negative bacteremia, no recurrent fevers in last 48 hours, denies urinary symptoms of frequency urgency, denies nausea vomiting or abdominal pain, denies shortness of breath, no chest pain, no palpitations. Review of Systems Review of Systems: Yes all other systems are reviewed and are negative Physical Exam Vital Signs: Vital Signs: Last Vital Signs Temp 98.2 F 04/20/22 08:35 Pulse 74 04/20/22 12:54 Resp 12 04/20/22 12:54 BP 105/41 L 04/20/22 12:54 Pulse Ox 96 04/20/22 08:35 BMI result Body Mass Index 28.8 Const: Other: General awake alert x3 in distress due to pain , nontoxic-appearing Neck no JVD. CVS regular rate rhythm, Respiratory lungs clear to auscultation, no respiratory distress Gastrointestinal abdomen soft, nontender, bowel sounds audible Extremities left upper extremity mild swelling around IV site no redness no induration Back no spinal tenderness mild bilateral paravertebral muscle tenderness to pa lpation, no redness no swelling Neuro nonfocal , speech clear. Skin no rash Psych appropriate affect Objective Data Active Medications Acetaminophen (Acetaminophen 325 Mg Tablet) 650 mg PO Q6H PRN PRN Reason: Pain, Mild (Pain Scale 1-3) Last Admin: 04/20/22 03:08 Dose: 650 mg Documented by: PALMIRA Albuterol/Ipratropium (Albuterol/Iprat 2.5/0.5mg 3 Ml Ampul.Neb) 3 ml INHALE Q4H PRN PRN Reason: Shortness of Breath/Wheezing Allopurinol (Allopurinol 100 Mg Tablet) 50 mg PO Q48H [facility] Last Admin: 04/19/22 07:47 Dose: 50 mg Documented by: LAURI Aspirin (Aspirin Enteric Coated 81 Mg Tablet.) 81 mg PO DAILY [facility] Last Admin: 04/20/22 10:34 Dose: 81 mg Documented by: JANUARY Dextrose (Dextrose 50 % 25 Gm/50 Ml Syringe) 25 gm IVPUSH Q15M PRN; Protocol PRN Reason: per Hypoglycemia Standing Ord. Gabapentin (Gabapentin 100 Mg Capsule) 200 mg PO TID [facility] Last Admin: 04/20/22 10:34 Dose: 200 mg Documented by: JANUARY Glucose (Glucose Gel 15 Gm Gel..Gram.) 15 gm PO Q15M PRN; Protocol PRN Reason: per Hypoglycemia Standing Ord. Heparin Sodium (Porcine) (Heparin Sodium,Porcine 5,000 Unit/Ml Vial) 5,000 unit SUBCUT Q8H [facility] Last Admin: 04/20/22 10:35 Dose: 5,000 unit Documented by: JANUARY Sodium Chloride (Ns) 1,000 mls @ 50 mls/hr IVCONT .Q20H [facility] Last Infusion: 04/20/22 11:06 Dose: 0 mls/hr Documented by: JANUARY Ceftriaxone Sodium 1 gm/ (Sodium Chloride) 50 mls @ 100 mls/hr IV Q24H [facility] Last Infusion: 04/20/22 11:54 Dose: 0 mls/hr Documented by: JANUARY Insulin Glargine (Insulin Glargine,Hum.Rec.Anlog 100 Unit/Ml 10 Ml Vial) 10 unit SUBCUT BEDTIME [facility] Last Admin: 04/19/22 22:22 Dose: 10 unit Documented by: PALMIRA Insulin Human Lispro (Insulin Lispro 100 Unit/Ml 3 Ml Vial) 0 unit SUBCUT QIDACHS [facility]; Protocol Last Admin: 04/20/22 12:41 Dose: Not Given Documented by: JANUARY Non-Admin Reason: No Insulin Coverage Loperamide HCl (Loperamide Hcl 2 Mg Capsule) 2 mg PO DAILY PRN PRN Reason: Diarrhea Lorazepam (Lorazepam 0.5 Mg Tablet) 0.5 mg PO BID PRN PRN Reason: Anxiety Last Admin: 04/20/22 02:17 Dose: 0.5 mg Documented by: PALMIRA Melatonin (Melatonin 3 Mg Tablet) 6 mg PO BEDTIME PRN PRN Reason: Insomnia Metoclopramide HCl (Metoclopramide Hcl 10 Mg/2 Ml Vial) 5 mg IVPUSH Q6H PRN PRN Reason: Nausea and Vomiting Last Admin: 04/19/22 04:28 Dose: 5 mg Documented by: SEAN Metoprolol Succinate (Metoprolol Succinate Er 25 Mg Tab.Er.24h) 25 mg PO DAILY [facility]; Protocol Last Admin: 04/20/22 10:35 Dose: 25 mg Documented by: JANUARY Nitroglycerin (Nitroglycerin 0.4 Mg Tab.Subl) 0.4 mg SUBLINGUAL Q5M PRN PRN Reason: Chest Pain Omeprazole (Omeprazole 20 Mg Capsule.Dr) 20 mg PO BID [facility] Last Admin: 04/20/22 10:34 Dose: 20 mg Documented by: JANUARY Oxycodone HCl (Oxycodone Hcl Immed Release 5 Mg Tablet) 5 mg PO Q6H PRN PRN Reason: Pain, Moderate (Pain Scale 4-6 Last Admin: 04/20/22 10:35 Dose: 5 mg Documented by: JANUARY Pharmacy Consult (Consult Rx Perform Med Rec) 1 each MISCELLANE ONCE PRN PRN Reason: Consult order Pharmacy Consult (Consult Rx Vancomycin Dosing) 1 each MISCELLANE DAILY PRN PRN Reason: Consult order Senna (Sennosides 8.6 Mg Tablet) 17.2 mg PO BEDTIME PRN PRN Reason: Constipation Sodium Chloride (0.9 % Sodium Chloride Flush 3 Ml Syringe) 3 ml IVFLUSH [facility] Last Admin: 04/20/22 10:35 Dose: Not Given Documented by: JANUARY Non-Admin Reason: Previously Administered Sodium Chloride (0.9 % Sodium Chloride Flush 3 Ml Syringe) 3 ml IVFLUSH [facility] Last Admin: 04/20/22 10:36 Dose: Not Given Documented by: JANUARY Non-Admin Reason: Duplicate Order Tamsulosin HCl (Tamsulosin Hcl 0.4 Mg Capsule) 0.4 mg PO DAILY@1700 [facility] Last Admin: 04/19/22 16:20 Dose: 0.4 mg Documented by: JUSTIN Trazodone HCl (Trazodone Hcl 25 Mg Halftab) 25 mg PO BEDTIME PRN PRN Reason: Sleep Vitamin D (Cholecalciferol (Vitamin D3) 25 Mcg Tablet) 25 mcg PO DAILY [facility] Last Admin: 04/20/22 10:35 Dose: 25 mcg Documented by: JANUARY Labs CBC & Chem 7: 04/19/22 06:33 04/19/22 06:33 Labs: Laboratory Results - last 24 hr 05/04/19/22 04/19/22 13:41 18:10 21:58 POC Glucose 318 H 235 H 294 H Vancomycin Trough 04/20/22 04/20/22 04/20/22 07:29 09:30 12:37 POC Glucose 124 H 161 H Vancomycin Trough 11.7 Microbiology Microbiology Results: Microbiology 04/18/22 19:12 Blood Culture - Preliminary Blood - Venous Gram negative ben 04/18/22 19:04 Blood Culture - Preliminary Blood - Venous Gram negative ben Assessment and Plan (1) Sepsis: Status: Acute (2) Atypical pneumonia: Status: Acute (3) ISA (acute kidney injury): Status: Acute (4) Nausea & vomiting: Status: Acute Plan 62-year-old female with a past medical history of hypertension, hyperlipidemia, diabetes, CAD status post CABG, diabetic gastroparesis, IBS, history of toe amputations, anxiety, depression, osteoarthritis, history of autonomic dysfunction, chronic kidney disease presented to the hospital with a chief complaint of nausea vomiting.? Found to have pneumonia # sepsis due to Gram-negative bacteremia/UTI persistent leukocytosis, WBC bumped up to 32.8, no recurrent fevers in last 48 hours Blood culture 2/2 growing Gram-negative rods, urine culture not collected, UA positive, likely urinary source of infection, prior history of E coli UTI , CT abdomen showed no abnormality, chest x-ray nonspecific could be small airway disease or atypical infection patient asymptomatic,no cough no shortness of breath. Will DC vancomycin and Zosyn change antibiotic to IV ceftriaxone, follow final blood culture sensitivity, follow CBC DC IV fluids Pain and tenderness at site of IV no evidence of infection will follow. # back pain seems musculoskeletal will use as needed Tylenol and oxycodone # nausea vomiting likely secondary to gastroparesis now resolved CT of the abdomen benign as above continue as needed Zofran # leukocytosis WBC bumped to greater than 30,000, no diarrhea, clinically patient looks nontoxic follow CBC and final cultures sensitive # History of COPD: No acute exacerbation continue home oxygen.? DuAnnabs p.r.n. # History of diabetes:? Blood sugar 2 100-300 range,on Lantus 10 units , continue insulin sliding scale and diabetic diet. #? History of hypertension:? Hold home lisinopril.? Continue metoprolol. #? History of CAD:? Continue home aspirin statin beta-héctor. DVT prophylaxis: Heparin subQ Patient need continued inpatient hospitalization due to Gram-negative bacteremia requiring IV antibiotics waiting for final culture report Quality Stroke Does the patient have a stroke diagnosis?: No VTE Prior VTE?: No VTE Risk Level:: Medical - moderate - high VTE Device Contraindication: Treatment Not Indicated VTE Drug Contraindication: N/A - Med Ordered
[2022-04-20 16:14] LABS: Glucose, Whole Blood 189 mg/dL (60-115)
[2022-04-20] MEDS: Tamsulosin HCL 0.4 MG CAPSULE PO (18:23)
[2022-04-20] MEDS: Insulin Lispro 100 UNIT/ML 3 ML VIAL SUBCUT ×2 (18:23→22:33)
[2022-04-20] MEDS: Metoclopramide HCl 10 MG/2 ML VIAL 5 MG IVPUSH (18:23)
[2022-04-20 19:32] VITALS: BP 105/41; PULSE 71; RESP 11; TEMP 36.9; O2SAT 95
[2022-04-20 21:34] LABS: Glucose, Whole Blood 190 mg/dL (60-115)
[2022-04-20] MEDS: Insulin Glargine,Hum.rec.anlog 100 UNIT/ML 10 ML VIAL 10 UNIT SUBCUT (22:32)
[2022-04-20 23:44] VITALS: BP 141/64; PULSE 72; RESP 18; TEMP 36.8; O2SAT 96
[2022-04-21] VITALS (8 sets, daily range): BP systolic 152–192; BP diastolic 66–98; PULSE 79–87; RESP 11–17; TEMP 36.6–37.1; O2SAT 92–95
[2022-04-21] MEDS: 0.9 % Sodium Chloride Flush 3 ML SYRINGE IVFLUSH ×4 (00:37→15:38)
[2022-04-21] MEDS: traZODone HCL 25 MG HALFTAB PO (00:44)
[2022-04-21] MEDS: LORazepam 0.5 MG TABLET PO (00:44)
--- NOTE | 2022-04-21 05:44 | PC.NURSE ---
Addendum entered by Lawrence Augustine RN 04/21/22 06:31: c/o nausea this am..no emesis..medicated with prn reglan 06:30 Original Note: CARE ASSUMED 23:15..AWAKE..ALERT..ORIENTED X3..RESPIRATIONS EASY ON ROOM AIR...ATIVAN AND TRAZADONE AT HS PER REQUEST FOR SLEEP...RESTFUL OVERNIGHT..OOB THIS AM TO BEDSIDE COMMODE WITH STEADY GAIT..NO COMPLAINTS
[2022-04-21] MEDS: Metoclopramide HCl 10 MG/2 ML VIAL 5 MG IVPUSH (06:27)
[2022-04-21 07:13] LABS: Hemoglobin 10.3 g/dl (12.0-16.0); Mean Corpuscular HGB Conc 31.2 g/dl (31.0-35.0); Mean Corpuscular Hemoglobin 30.5 pg (27.0-33.0); Mean Corpuscular Volume 97.6 fL (80.0-98.0); Mean Platelet Volume 11.1 fL (9.4-12.3); Platelet Count 162 X10*3/uL (160-400); Red Blood Count 3.38 X10*6/uL (4.20-5.50); Red Cell Distribution Width 14.4 % (11.0-16.0); White Blood Count 12.2 X10*3/uL (4.8-10.8)
[2022-04-21 07:25] LABS: Anion Gap 13 (12-20); Blood Urea Nitrogen 41 mg/dL (9-16); Calcium 8.6 mg/dL (8.4-10.2); Carbon Dioxide 23 mmol/L (22-29); Chloride 107 mmol/L (96-108); Estimated Glomerular Filt Rate 25; Glucose Random 167 mg/dL (60-115); Potassium 5.3 mmol/L (3.3-5.1); Sodium 138 mmol/L (135-145)
[2022-04-21 07:30] LABS: Glucose, Whole Blood 145 mg/dL (60-115)
[2022-04-21] MEDS: Cholecalciferol (Vitamin D3) 25 MCG TABLET PO (09:52)
[2022-04-21] MEDS: cefTRIAXone sodium 1 GM in 0.9 % Sodium Chloride 50 ML IV (09:52)
[2022-04-21] MEDS: Omeprazole 20 MG CAPSULE.DR PO ×2 (09:52→22:07)
[2022-04-21] MEDS: allopurinoL 100 MG TABLET 50 MG PO (09:53)
[2022-04-21] MEDS: Metoprolol Succinate ER 25 MG TAB.ER.24H PO (09:53)
[2022-04-21] MEDS: Aspirin Enteric Coated 81 MG TABLET.DR PO (09:53)
[2022-04-21] MEDS: Gabapentin 100 MG CAPSULE 200 MG PO ×3 (09:53→22:07)
[2022-04-21] MEDS: Heparin Sodium,Porcine 5,000 UNIT/ML VIAL 5000 UNIT SUBCUT ×3 (09:55→23:06)
[2022-04-21 10:59] LABS: Glucose, Whole Blood 169 mg/dL (60-115)
[2022-04-21] MEDS: Insulin Lispro 100 UNIT/ML 3 ML VIAL SUBCUT ×2 (13:12→17:37)
[2022-04-21] MEDS: lisinopriL 5 MG TABLET PO (13:13)
--- NOTE | 2022-04-21 13:34 | P.PNIM_ITS ---
Subjective Subjective Date of Service: 04/21/22 Interval History: feels better less pain,no sob , noted to have elevated blood pressures no acute events overnight. Feeling weak and requesting to go to rehab. Review of Systems Review of Systems: Yes all other systems are reviewed and are negative Physical Exam Vital Signs: Vital Signs: Last Vital Signs Temp 98.2 F 04/21/22 12:00 Pulse 82 04/21/22 12:00 Resp 11 L 04/21/22 12:00 BP 178/74 H 04/21/22 12:00 Pulse Ox 95 04/21/22 12:00 BMI result Body Mass Index 28.8 Const: Other: General awake aler t x3 no distress N molly? no JVD. CVS? regular rate rhyth m, Respiratory saurabh gs clear to auscul tation, no respira tory distress Marig rointestinal abdom en soft, nontender , bowel sounds aud ible Extremities l eft upper extremit y swelling around IV site improving, no redness no ind uration Back no sp inal tenderness mi ld bilateral parav ertebral muscle te nderness to palpat ion, no redness no swelling Neuro no nfocal , speech cl ear. Skin no rash Psych appropriate affect Objective Data Active Medications Acetaminophen (Acetaminophen 325 Mg Tablet) 650 mg PO Q6H PRN PRN Reason: Pain, Mild (Pain Scale 1-3) Last Admin: 04/20/22 14:20 Dose: 650 mg Documented by: JANUARY Albuterol/Ipratropium (Albuterol/Iprat 2.5/0.5mg 3 Ml Ampul.Neb) 3 ml INHALE Q4H PRN PRN Reason: Shortness of Breath/Wheezing Allopurinol (Allopurinol 100 Mg Tablet) 50 mg PO Q48H [facility] Last Admin: 04/21/22 09:53 Dose: 50 mg Documented by: DIPESH Aspirin (Aspirin Enteric Coated 81 Mg Tablet.) 81 mg PO DAILY [facility] Last Admin: 04/21/22 09:53 Dose: 81 mg Documented by: DIPESH Dextrose (Dextrose 50 % 25 Gm/50 Ml Syringe) 25 gm IVPUSH Q15M PRN; Protocol PRN Reason: per Hypoglycemia Standing Ord. Gabapentin (Gabapentin 100 Mg Capsule) 200 mg PO TID [facility] Last Admin: 04/21/22 09:53 Dose: 200 mg Documented by: DIPESH Glucose (Glucose Gel 15 Gm Gel..Gram.) 15 gm PO Q15M PRN; Protocol PRN Reason: per Hypoglycemia Standing Ord. Heparin Sodium (Porcine) (Heparin Sodium,Porcine 5,000 Unit/Ml Vial) 5,000 unit SUBCUT Q8H [facility] Last Admin: 04/21/22 09:55 Dose: 5,000 unit Documented by: DIPESH Ceftriaxone Sodium 1 gm/ (Sodium Chloride) 50 mls @ 100 mls/hr IV Q24H [facility] Last Infusion: 04/21/22 13:14 Dose: 0 mls/hr Documented by: DIPESH Insulin Glargine (Insulin Glargine,Hum.Rec.Anlog 100 Unit/Ml 10 Ml Vial) 10 unit SUBCUT BEDTIME [facility] Last Admin: 04/20/22 22:32 Dose: 10 unit Documented by: DAMIR Insulin Human Lispro (Insulin Lispro 100 Unit/Ml 3 Ml Vial) 0 unit SUBCUT QIDACHS [facility]; Protocol Last Admin: 04/21/22 13:12 Dose: 2 unit Documented by: DIPESH Lisinopril (Lisinopril 5 Mg Tablet) 5 mg PO DAILY [facility]; Protocol Last Admin: 04/21/22 13:13 Dose: 5 mg Documented by: DIPESH Loperamide HCl (Loperamide Hcl 2 Mg Capsule) 2 mg PO DAILY PRN PRN Reason: Diarrhea Lorazepam (Lorazepam 0.5 Mg Tablet) 0.5 mg PO BID PRN PRN Reason: Anxiety Last Admin: 04/21/22 00:44 Dose: 0.5 mg Documented by: MIREILLE Melatonin (Melatonin 3 Mg Tablet) 6 mg PO BEDTIME PRN PRN Reason: Insomnia Metoclopramide HCl (Metoclopramide Hcl 10 Mg/2 Ml Vial) 5 mg IVPUSH Q6H PRN PRN Reason: Nausea and Vomiting Last Admin: 04/21/22 06:27 Dose: 5 mg Documented by: MIREILLE Metoprolol Succinate (Metoprolol Succinate Er 25 Mg Tab.Er.24h) 25 mg PO DAILY [facility]; Protocol Last Admin: 04/21/22 09:53 Dose: 25 mg Documented by: DIPESH Nitroglycerin (Nitroglycerin 0.4 Mg Tab.Subl) 0.4 mg SUBLINGUAL Q5M PRN PRN Reason: Chest Pain Omeprazole (Omeprazole 20 Mg Capsule.Dr) 20 mg PO BID [facility] Last Admin: 04/21/22 09:52 Dose: 20 mg Documented by: DIPESH Oxycodone HCl (Oxycodone Hcl Immed Release 5 Mg Tablet) 5 mg PO Q6H PRN PRN Reason: Pain, Moderate (Pain Scale 4-6 Last Admin: 04/20/22 22:31 Dose: 5 mg Documented by: DAMIR Pharmacy Consult (Consult Rx Perform Med Rec) 1 each MISCELLANE ONCE PRN PRN Reason: Consult order Pharmacy Consult (Consult Rx Vancomycin Dosing) 1 each MISCELLANE DAILY PRN PRN Reason: Consult order Senna (Sennosides 8.6 Mg Tablet) 17.2 mg PO BEDTIME PRN PRN Reason: Constipation Sodium Chloride (0.9 % Sodium Chloride Flush 3 Ml Syringe) 3 ml IVFLUSH [facility] Last Admin: 04/21/22 09:56 Dose: Not Given Documented by: DIPESH Non-Admin Reason: Duplicate Order Sodium Chloride (0.9 % Sodium Chloride Flush 3 Ml Syringe) 3 ml IVFLUSH [facility] Last Admin: 04/21/22 09:55 Dose: 3 ml Documented by: DIPESH Tamsulosin HCl (Tamsulosin Hcl 0.4 Mg Capsule) 0.4 mg PO DAILY@1700 [facility] Last Admin: 04/20/22 18:23 Dose: 0.4 mg Documented by: JANUARY Trazodone HCl (Trazodone Hcl 25 Mg Halftab) 25 mg PO BEDTIME PRN PRN Reason: Sleep Last Admin: 04/21/22 00:44 Dose: 25 mg Documented by: MIREILLE Vitamin D (Cholecalciferol (Vitamin D3) 25 Mcg Tablet) 25 mcg PO DAILY [facility] Last Admin: 04/21/22 09:52 Dose: 25 mcg Documented by: DIPESH Labs CBC & Chem 7: 04/21/22 06:39 04/21/22 06:39 Labs: Laboratory Results - last 24 hr 04/20/22 04/20/22 04/21/22 16:09 21:28 06:39 MCV 97.6 MCH 30.5 MCHC 31.2 RDW 14.4 Plt Count 162 MPV 11.1 Absolute Nucleated RBC 0.000 Nucleated RBC % (auto) 0.0 Anion Gap Estim Creat Clear Calc Estimated GFR POC Glucose 189 H 190 H Random Glucose Calcium 04/21/22 04/21/22 04/21/22 06:39 07:24 10:50 MCV MCH MCHC RDW Plt Count MPV Absolute Nucleated RBC Nucleated RBC % (auto) Anion Gap 13 Estim Creat Clear Calc 26.0 Estimated GFR 25 POC Glucose 145 H 169 H Random Glucose 167 H Calcium 8.6 Microbiology Microbiology Results: Microbiology 04/18/22 19:04 Blood Culture - Final Blood - Venous Escherichia coli 04/18/22 19:12 Blood Culture - Final Blood - Venous Escherichia coli Assessment and Plan (1) Sepsis: Status: Acute (2) Atypical pneumonia: Status: Acute (3) ISA (acute kidney injury): Status: Acute (4) Nausea & vomiting: Status: Acute Plan 62-year-old female with a past medical history of hypertension, hyperlipidemia, diabetes, CAD status post CABG, diabetic gastroparesis, IBS, history of toe amputations, anxiety, depression, osteoarthritis, history of autonomic dysfunction, chronic kidney disease presented to the hospital with a chief complaint of nausea vomiting.? Found to have pneumonia # sepsis due to E coli likely due to UTI, urine culture not collected CT abdomen and pelvis negative for infection, chest x-ray nonspecific small airway disease versus atypical infection WBC trending down, no fevers bacteremia/UTI On IV ceftriaxone day 2 will discharge patient home on Ceftin 250 mg b.i.d. for total 2 weeks treatment Patient feeling weak and requesting to go to rehab will obtain PT consult Pain and tenderness at site of IV improving no evidence of infection will follow. # back pain seems musculoskeletal will use as needed Tylenol and DC oxycodone since causing nausea # nausea vomiting likely secondary to gastroparesis and related to narcotics, CT of the abdomen benign as above continue as needed Zofran # leukocytosis WBC bumped to greater than 30,000, dropped to 12,000 this morning, no diarrhea, likely due to UTI # History of COPD: No acute exacerbation continue home oxygen.? DuoNebs p.r.n. # History of diabetes:? Blood sugar 100-300 range,on Lantus 10 units , continue insulin sliding scale and diabetic diet. #? History of hypertension:? Noted to have elevated blood pressure resume lisinopril.? Continue metoprolol. #? History of CAD:? Continue home aspirin statin beta-héctor. # mild hyperkalemia will give Lokelma DVT prophylaxis: Heparin subQ Patient need continued inpatient hospitalization due to E coli bacteremia on IV antibiotic, weakness, waiting for physical therapy eval and safe discharge plan. Quality Stroke Does the patient have a stroke diagnosis?: No VTE Prior VTE?: No VTE Risk Level:: Medical - moderate - high VTE Device Contraindication: Treatment Not Indicated VTE Drug Contraindication: N/A - Med Ordered
[2022-04-21] MEDS: Sodium Zirconium Cyclosilicate 5 GM POWD.PACK PO (13:53)
[2022-04-21 17:15] LABS: Glucose, Whole Blood 206 mg/dL (60-115)
[2022-04-21] MEDS: Tamsulosin HCL 0.4 MG CAPSULE PO (17:38)
--- NOTE | 2022-04-21 18:25 | PC.NURSE ---
pt alert and oriented, systolic b/p low to mid 170s, Dr Riley aware. pt denies headache, dizziness, blurriness. no complains. pt up to bedside commode with assistance. meds given as documented
[2022-04-21 21:30] LABS: Glucose, Whole Blood 133 mg/dL (60-115)
[2022-04-21] MEDS: Insulin Glargine,Hum.rec.anlog 100 UNIT/ML 10 ML VIAL 10 UNIT SUBCUT (22:07)
[2022-04-22 00:05] VITALS: BP 163/76; PULSE 78; RESP 15; O2SAT 93
[2022-04-22] MEDS: LORazepam 0.5 MG TABLET PO (04:23)
[2022-04-22 07:24] LABS: Glucose, Whole Blood 146 mg/dL (60-115)
[2022-04-22 07:32] LABS: Hematocrit 33.6 % (37.0-47.0); Hemoglobin 10.7 g/dl (12.0-16.0); Mean Corpuscular HGB Conc 31.8 g/dl (31.0-35.0); Mean Corpuscular Hemoglobin 30.1 pg (27.0-33.0); Mean Corpuscular Volume 94.6 fL (80.0-98.0); Mean Platelet Volume 10.9 fL (9.4-12.3); Platelet Count 168 X10*3/uL (160-400); Red Blood Count 3.55 X10*6/uL (4.20-5.50); Red Cell Distribution Width 13.7 % (11.0-16.0); White Blood Count 8.8 X10*3/uL (4.8-10.8)
[2022-04-22 07:50] VITALS: BP 191/84; PULSE 79; RESP 18; TEMP 35.7; O2SAT 94
[2022-04-22 07:52] LABS: Anion Gap 13 (12-20); Blood Urea Nitrogen 30 mg/dL (9-16); Calcium 8.9 mg/dL (8.4-10.2); Carbon Dioxide 25 mmol/L (22-29); Chloride 105 mmol/L (96-108); Estimated Glomerular Filt Rate 32; Glucose Random 170 mg/dL (60-115); Potassium 4.7 mmol/L (3.3-5.1); Sodium 138 mmol/L (135-145)
[2022-04-22] MEDS: Heparin Sodium,Porcine 5,000 UNIT/ML VIAL 5000 UNIT SUBCUT (08:14)
[2022-04-22] MEDS: lisinopriL 5 MG TABLET PO (08:15)
[2022-04-22] MEDS: Gabapentin 100 MG CAPSULE 200 MG PO (08:15)
[2022-04-22] MEDS: Metoprolol Succinate ER 25 MG TAB.ER.24H PO (08:15)
[2022-04-22] MEDS: Aspirin Enteric Coated 81 MG TABLET.DR PO (08:15)
[2022-04-22] MEDS: Cholecalciferol (Vitamin D3) 25 MCG TABLET PO (08:15)
[2022-04-22] MEDS: Omeprazole 20 MG CAPSULE.DR PO (08:15)
[2022-04-22] MEDS: 0.9 % Sodium Chloride Flush 3 ML SYRINGE IVFLUSH (08:16)
--- NOTE | 2022-04-22 11:16 | PC.NURSE ---
Pt A&OX4, LCA, no complaints of pain, abd soft, non tender, +BS x4, NSR on monitor, call richard within reach. Urinating clear yellow urine at this time. Plan for DC today, pt aware and agreeeable. Awaiting dispo, will continue to monitor.
[2022-04-22 11:26] VITALS: BP 119/80; PULSE 78; RESP 13; TEMP 36.1; O2SAT 96
--- NOTE | 2022-04-22 11:29 | MHC.CM.PN ---
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 IMM addressed; Patient and Granddaughter/HAM ROLLING MACHINE OPERATOR/Kat @ [phone] are aware of and in agreement with the dc plan.Kat is aware that Patient is leaving the hospital around noon. RERE has provided Patient's RN with a voucher for Patient to be taken home by [facility] Shuttle today at 12:25 PM.
[2022-04-22] MEDS: cefTRIAXone sodium 1 GM in 0.9 % Sodium Chloride 50 ML IV (11:36)
--- NOTE | 2022-04-22 13:23 | P.DS_ITS ---
DS: Providers Provider Date of Service: 04/22/22 Date of admission: 04/18/22 22:48 Primary care physician: Unknown Physician DS: Diagnosis Discharge Diagnosis (1) Sepsis: Status: Acute (2) Atypical pneumonia: Status: Acute (3) ISA (acute kidney injury): Status: Acute (4) Nausea & vomiting: Status: Acute DS: Summary Hospital Course Hospital Course: History of presenting illness Chief Complaint:? nausea/vomiting ?62-year-old female with a past medical history of hypertension, hyperlipidemia, diabetes, CAD status post CABG, diabetic gastroparesis, IBS, history of toe amputations, anxiety, depression, osteoarthritis, history of autonomic dysfunction, chronic kidney disease presented to the hospital with a chief complaint of nausea vomiting.? ?patient reported that this often doses started of nausea and vomiting; had multiple episodes of vomiting; denies any blood in the vomitus.? Reports he had similar episodes in the past.? Denies any abdominal discomfort or diarrhea.? Denies any chest pain or palpitations.? Patient denies any cough or sputum production.? Review of all other systems is negative except mentioned above ER course: Per ER team patient noted to be febrile; on labs noted to elevated creatinine; chest x-ray showed findings concerning for atypical pneumonia.? Given antibiotics.? CT head showed no acute findings.? Admitted for further management. Hospital course 62-year-old female with a past medical history of hypertension, hyperlipidemia, diabetes, CAD status post CABG, diabetic gastroparesis, IBS, history of toe amputations, anxiety, depression, osteoarthritis, history of autonomic dysfunction, chronic kidney disease presented to the hospital with a chief complaint of nausea vomiting.? # patient admitted with symptoms of nausea, vomiting ,no urinary symptoms of urgency and frequency, no symptoms of cough or shortness of breath, CT abdomen and pelvis showed no acute abnormality chest x-ray showed nonspecific small airway disease versus atypical infection, urinalysis was positive patient was admitted to [facility] with a diagnosis of sepsis, and placed on IV antibiotic, blood cultures x2 came back positive for E coli patient responded well to IV antibiotics, leukocytosis improved patient has no fevers, nausea and vomiting resolved, patient is hemodynamically stable therefore being discharged home on Ceftin 250 mg b.i.d. for total 2 weeks, patient evaluated by Physical therapy and they recommend to continue home PT and VNA service, patient complained of back pain likely musculoskeletal treated with analgesics and has resolved. In regard to nausea vomiting patient has underlying gastroparesis, imaging studies are unremarkable recommended patient to take small frequent meals. # History of COPD:? No acute exacerbation noted continue home oxygen and DuoNebs p.r.n. # History of diabetes:? Blood sugar < 200 dose of Tresiba reduced to 24 units at home on 32 units recommend to continue diabetic diet. #? History of hypertension:? Continue home medications beta-blockers lisinopril and Lasix ? #? History of CAD:? Continue home aspirin, statin and beta-héctor. # mild hyperkalemia resolved continue lokelma as before Time Spent with Patient Time attestation: Total time spent providing and/or coordinating discharge services: Discharge coordination time: Greater than 30 minutes Quality: Safe Use of Opioids Does Pt have an Active Cancer Diagnosis on the Problem List?: No Quality: Stroke Does the patient have a stroke diagnosis?: No Physical Exam Vital Signs: Vital Signs: Last Vital Signs Temp 96.9 F 04/22/22 11:26 Pulse 78 04/22/22 11:26 Resp 13 04/22/22 11:26 BP 119/80 04/22/22 11:26 Pulse Ox 96 04/22/22 11:26 BMI result Body Mass Index 28.8 Const: Other: General awake alert x3 , no acute distress Neck? no JVD. CVS? regular rate rhythm, Respiratory lungs clear to auscultation, no respiratory distress Gastrointestinal abdomen soft, nontender, bowel sounds audible Extremities left upper extremity mild swelling , no redness, no induration Neuro nonfocal , speech clear. Skin no rash Psych appropriate affect DS: Data Data Completed and Pending Completed studies during hospitalization [Text1]: Procedures Insertion of Infusion Device into Right Basilic Vein, Percutaneous Approach (10/31/20) Transfusion of Nonautologous Red Blood Cells into Peripheral Vein, Percutaneous Approach (10/31/20) Labs on day of discharge: Laboratory Results - last 24 hr 04/21/22 04/21/22 04/22/22 17:09 21:26 07:11 WBC 8.8 RBC 3.55 L Hgb 10.7 L Hct 33.6 L MCV 94.6 MCH 30.1 MCHC 31.8 RDW 13.7 Plt Count 168 MPV 10.9 Absolute Nucleated RBC 0.000 Nucleated RBC % (auto) 0.0 Sodium Potassium Chloride Carbon Dioxide Anion Gap BUN Creatinine Estim Creat Clear Calc Estimated GFR POC Glucose 206 H 133 H Random Glucose Calcium 04/22/22 04/22/22 07:11 07:18 WBC RBC Hgb Hct MCV MCH MCHC RDW Plt Count MPV Absolute Nucleated RBC Nucleated RBC % (auto) Sodium 138 Potassium 4.7 Chloride 105 Carbon Dioxide 25 Anion Gap 13 BUN 30 H Creatinine 1.64 H Estim Creat Clear Calc 32.0 Estimated GFR 32 POC Glucose 146 H Random Glucose 170 H Calcium 8.9 Discharge Plan Discharge Patient Disposition: Home Health Service Discharge Diagnosis: Sepsis due to UTI E coli bacteremia Referrals: [facility] [Outside] - 1 Week Physician,Unknown J [Primary Care Provider] - 1 Week Discharge Medications: New cefuroxime axetil 250 mg tablet 250 mg PO Q12H Qty: 24 0RF Continued lorazepam 0.5 mg Tablet 0.5 mg PO BID PRN (Reason: Anxiety) 0RF allopurinol 100 mg Tablet 100 mg PO DAILY 0RF aspirin 81 mg Tablet,Delayed Release (Dr/Ec) 81 mg PO DAILY 0RF Hold Instructions: Resume on 01/13/21. tamsulosin 0.4 mg capsule 0.4 mg PO DAILY@1700 0RF ferrous sulfate [iron] 325 mg (65 mg iron) Tablet 325 mg PO DAILY 0RF nitroglycerin 0.4 mg Tablet, Sublingual 0.4 mg SUBLINGUAL Q5M PRN (Reason: Chest Pain) 0RF melatonin 5 mg Tablet 5 mg PO BEDTIME PRN (Reason: Sleep) 0RF gabapentin 100 mg capsule 200 mg PO TID 0RF trazodone 50 mg tablet 0.5 tab PO BEDTIME PRN (Reason: Sleep) 0RF pantoprazole 40 mg tablet,delayed release (DR/EC) 1 tab PO BID 0RF atorvastatin 80 mg tablet 80 mg PO BEDTIME 0RF Tradjenta 5 mg tablet 5 mg PO DAILY 0RF metoprolol succinate 25 mg tablet extended release 24 hr 1 tab PO DAILY 0RF lisinopril 5 mg tablet 5 mg PO BEDTIME Qty: 0 0RF Hold Instructions: Resume on 03/31/22. furosemide 40 mg tablet 20 mg PO DAILY 0RF acetaminophen 500 mg tablet 1 tab PO Q6H PRN (Reason: Pain) 0RF cholecalciferol (vitamin D3) 25 mcg (1,000 unit) capsule 1 cap PO DAILY 0RF Lokelma 5 gram powder in packet 5 g PO Q OTHER DAY Qty: 11 0RF loperamide 2 mg capsule 2 mg PO DAILY PRN (Reason: Diarrhea) 0RF insulin aspart U-100 [Novolog Flexpen U-100 Insulin] 100 unit/mL (3 mL) Insulin Pen See Protocol sliding scale dose SUBCUT QIDWMHS 0RF Protocol: Insulin Correction Scale Less than or equal to 110 ---- Give (units): 0 111 to 150 Give (units): 0 151 to 200 Give (units): 8 201 to 250 Give (units): 10 251 to 300 Give (units): 12 301 to 350 Give (units): 14 Greater than 350 Give (units): 16 Call MD if Blood Glucose > : 350 metoclopramide HCl 5 mg tablet 5 mg PO TIDWM 0RF Rx Instructions: with meals Changed Tresiba FlexTouch U-100 100 unit/mL (3 mL) insulin pen 24 unit subcut DAILY Qty: 0 0RF Discontinued meloxicam 7.5 mg tablet 1 tab PO DAILY 0RF Hold Instructions: Resume on 03/31/22. Discharge Orders: Discharge Order (Routine); Ordered 04/22/22 Ordered By: Cliff Riley Diet: diabetic diet Activity on Discharge: As tolerated Stand Alone Forms: Patient Portal Discharge page Care Plan Goals: noted to have E coli bacteremia take Ceftin 250 mg twice Daily as ordered, follow diabetic diet strict blood sugar monitoring and control to avoid recurrent infection, noted to have stable blood sugars in the hospital therefore dose of Tresiba lowered to 24 (home dose 32) Health Concerns: As above Plan of Treatment: Outpatient follow-up with primary care physician call to make appointment. Assessment: As per discharge summary Discharge Date/Time: 04/22/22 13:01
== END 2022-04-22 13:01 | disposition home health service (06) | DRG 871 ==
LOC: HO.ED 21:08 → HO.EDOVER 04-19 04:17
PROVIDERS: Internal Medicine; Physician Assistant; Admitting Provider Hospitalist; Emergency Provider Emergency Medicine; Visit Provider Hospitalist
DX: A41.51 Sepsis due to Escherichia coli [E. coli] (principal); J69.0 Pneumonitis due to inhalation of food and vomit; I13.0 Hypertensive heart and chronic kidney disease with heart failure and stage 1 through stage 4 chronic kidney disease, or unspecified chronic kidney disease; I50.32 Chronic diastolic (congestive) heart failure; E11.43 Type 2 diabetes mellitus with diabetic autonomic (poly)neuropathy; K31.84 Gastroparesis; I25.10 Atherosclerotic heart disease of native coronary artery without angina pectoris; Z87.440 Personal history of urinary (tract) infections; Z95.0 Presence of cardiac pacemaker; Z95.1 Presence of aortocoronary bypass graft; Z20.822 Contact with and (suspected) exposure to COVID-19; J44.9 Chronic obstructive pulmonary disease, unspecified; Z99.81 Dependence on supplemental oxygen; E11.22 Type 2 diabetes mellitus with diabetic chronic kidney disease; N18.9 Chronic kidney disease, unspecified; Z86.73 Personal history of transient ischemic attack (TIA), and cerebral infarction without residual deficits; Z87.891 Personal history of nicotine dependence; Z79.4 Long term (current) use of insulin; Z79.82 Long term (current) use of aspirin; Z79.899 Other long term (current) drug therapy
CPT/HCPCS: 36415; 70450; 71045; 74176; 80048; 80076; 80202; 81001; 81003; 82140; 82947; 83605; 83690; 83735; 83880; 85007; 85025; 85027; 87040; 87077; 87186; 87205; 87502; 87635; 93005; 96365; 96367; 96375; 97162; 99285; J0696; J1885; J2405; J2543; J2765; J3370

== ENCOUNTER 2022-05-04 13:05 | Inpatient (IN) | payer OTHER, SELFPAY ==
[2022-05-04] VITALS (7 sets, daily range): BP systolic 90–107; BP diastolic 36–62; PULSE 62–84; RESP 12–18; TEMP 36.3–36.7; O2SAT 94–98; BMI 30.2; BMI 32.6
--- NOTE | ~2022-05-04 | NM_ITS ---
Myocardial perfusion study Indication: Chest pain, NSTEMI to evaluate for ischemia Technique: The patient was brought in for a Lexiscan perfusion study on 05/07/2022. Patient performed low-level exercise and was injected 0.4 mg of Lexiscan intravenously. Within a minute of injection, 25 mCi of sestamibi was given intravenously. Images were obtained using the SPECT gamma camera interlaced with the gating device. Images were obtained in supine position. Resting perfusion study was performed on 05/08/2022. Patient was administered 25 mCi of sestamibi intravenously at rest. Images were then obtained in supine position. Images obtained with and without CT attenuation. Total DLP 102 mGy-cm. Images were processed with the software and compared side to side in short axis, horizontal long axis and vertical long axis views. Findings: The stress perfusion study showed non attenuated images show mildly reduced uptake in the entire lateral wall extending into the inferolateral as well as the anterolateral wall of the LV myocardium. There is also mildly reduced uptake in the basal and mid inferior wall of the LV myocardium. Remainder of the LV myocardium is normally perfused. Attenuation corrected images show mildly reduced uptake in the entire inferior wall as well as basal lateral and inferolateral wall of the LV myocardium.. The gated study shows normal LV systolic function with calculated LVEF of 58%. LV cavity is normal size. The gated study shows normal systolic wall thickening and contraction of segments. Resting study shows non attenuated images show normal uptake in the lateral as well as the anterolateral and inferolateral wall of the LV myocardium. Is also improved uptake in the basal and mid inferior wall of the LV myocardium. Attenuation corrected images show normalized uptake in the inferior wall as well as the lateral wall of the LV myocardium.. Gating at rest reveals normal systolic wall motion with ejection fraction at 57%. The findings are consistent with reversible defect of the inferior and lateral wall suggestive of ischemia.. NM/NM shey perf SPECT rest & str Impression: 1. Myocardial perfusion imaging study shows lateral and inferior wall ischemia 2. Gated LVEF is 58% 3. Transient ischemic dilatation not present EKG is nondiagnostic for ischemia
--- NOTE | 2022-05-04 13:19 | ECG_ITS ---
Test Reason : DHIARREA Blood Pressure : / mmHG Vent. Rate : 072 BPM Atrial Rate : 072 BPM P-R Int : 226 ms QRS Dur : 120 ms QT Int : 460 ms P-R-T Axes : 021 096 219 degrees QTc Int : 503 ms Atrial-sensed ventricular-paced rhythm with prolonged AV conduction Abnormal ECG When compared with ECG of 18-APR-2022 18:30, Vent. rate has decreased BY 31 BPM Referred By: Kavitha Dominguez Electronically Signed By:Efren Diaz
--- NOTE | 2022-05-04 13:30 | ED_ITS ---
HPI - Nausea/Vomiting/Diarrhea General Chief complaint: Nausea/Vomiting/Diarrhea Stated complaint: DIARRHEA Time Seen by Provider: 05/04/22 14:22 Source: patient and EMS Mode of arrival: EMS Limitations: no limitations History of Present Illness HPI Narrative: Patient comes to the emergency room complaining of abdominal cramping and diarrhea. Patient states that approximately 8 hours ago, patient woke up, started having diffuse body aches and diarrhea. Patient states she has had up to 5 episodes of diarrhea. Patient denies blood in the stool, no nausea vomiting, intermittent abdominal cramping. Of note, patient was discharged from the hospital on April 22, patient was here for sepsis secondary to UTI, acute kidney injury. Patient was discharged on cefuroxime, Patient Took her last dose yesterday. Related Data Home Medications Medication Instructions Recorded Confirmed lorazepam 0.5 mg tablet 0.5 mg PO BID PRN Anxiety 09/14/20 04/18/22 allopurinol 100 mg tablet 100 mg PO DAILY 09/16/20 04/18/22 aspirin 81 mg tablet,delayed 81 mg PO DAILY 09/16/20 04/18/22 release ferrous sulfate 325 mg (65 mg 325 mg PO DAILY 12/22/20 04/18/22 iron) tablet (iron) tamsulosin 0.4 mg capsule 0.4 mg PO DAILY@1700 12/22/20 04/18/22 melatonin 5 mg tablet 5 mg PO BEDTIME PRN Sleep 01/08/21 04/18/22 nitroglycerin 0.4 mg sublingual 0.4 mg sublingual Q5M PRN Chest 01/08/21 04/18/22 tablet Pain gabapentin 100 mg capsule 200 mg PO TID 03/06/21 04/18/22 metoclopramide HCl 5 mg tablet 5 mg PO TIDWM 03/20/21 04/18/22 pantoprazole 40 mg tablet,delayed 1 tab PO BID 01/10/22 04/18/22 release trazodone 50 mg tablet 0.5 tab PO BEDTIME PRN Sleep 01/10/22 04/18/22 atorvastatin 80 mg tablet 80 mg PO BEDTIME 01/21/22 04/18/22 linagliptin 5 mg tablet (Tradjenta) 5 mg PO DAILY 01/21/22 04/18/22 metoprolol succinate 25 mg 1 tab PO DAILY 02/19/22 04/18/22 tablet,extended release 24 hr acetaminophen 500 mg tablet 1 tab PO Q6H PRN Pain 03/23/22 04/18/22 cholecalciferol (vitamin D3) 25 1 cap PO DAILY 03/23/22 04/18/22 mcg (1,000 unit) capsule insulin aspart U-100 100 unit/mL See Protocol subcut QIDWMHS 04/15/22 04/18/22 (3 mL) subcutaneous pen (Novolog Flexpen U-100 Insulin aspart) loperamide 2 mg capsule 2 mg PO DAILY PRN Diarrhea 04/15/22 04/18/22 furosemide 40 mg tablet 20 mg PO DAILY 04/18/22 04/18/22 Previous Rx's Medication Instructions Recorded lisinopril 5 mg tablet 5 mg PO BEDTIME #0 tabs 02/20/22 sodium zirconium cyclosilicate 5 5 g PO Q OTHER DAY #11 ea 03/25/22 gram oral powder packet (Lokelma) cefuroxime axetil 250 mg tablet 250 mg PO Q12H #24 tabs 04/21/22 insulin degludec 100 unit/mL (3 24 unit (0.24 mL) subcut DAILY #0 04/22/22 mL) subcutaneous pen (Tresiba mL FlexTouch U-100 insulin) Allergies Allergy/AdvReac Type Severity Reaction Status Date / Time tetracycline [Tetracycline] Allergy Mild HIVES, Verified 05/04/22 13:14 anaphylaxis, anaphylaxis Review of Systems Review of Systems: Constitutional : No Weight loss, No Fever, No Chills, No Night Sweats, fatigue, generalized malaise, diffuse body aches ENT/Mouth : No Hearing loss, No Ear Pain, No Nasal Congestion, No Sinus Pain, No Hoarseness, No sore throat, No Rhinorrhea, No Swallowing Difficulty Eyes: No Eye Pain, No Swelling, No Redness, No Foreign Body, No Discharge, No Vision Changes Cardiovascular : No Chest Pain, No SOB, No Dyspnea on Exertion, No Orthopnea, No Edema, No Palpitations Respiratory : No Cough, No Sputum, No Wheezing, No Smoke Exposure, No Dyspnea Gastrointestinal : No nausea or vomiting, complaining of diffuse watery diarrhea, no blood in the stool, abdominal cramping intermittently Pain, No Hematochezia, No Melena Genitourinary : no irregular bleeding, No Dysuria, No Urinary Frequency, No Hematuria, No Urinary Incontinence, No Urgency, No Flank Pain, No Urinary Flow Changes, No Hesitancy Musculoskeletal : No joint pain, No Myalgias, No Joint Swelling Skin : No Skin Lesions, No rash Neuro : No Weakness, No Numbness, No Paresthesias, No Loss of Consciousness, No Dizziness, No Headache Psych : No Anxiety/Panic, No Depression, No SI/HI/AH/VH, No Social Issues, Heme/Lymph: No Bruising, No Bleeding,No Lymphadenopathy Endocrine : No Polyuria, No Polydipsia, No Temperature Intolerance [facility] Past Medical History Medical History Acute heart failure with preserved ejection fraction Anemia Anxiety Arthritis Cardiac pacemaker in situ Carpal tunnel syndrome CHF (congestive heart failure) Chronic heart failure with preserved ejection fraction (HFpEF) COPD exacerbation Coronary artery disease CVA (cerebral vascular accident) Diabetes Diabetic gastroparesis Fall Gastritis Gastroparesis Gastroparesis GERD (gastroesophageal reflux disease) Headache Heart failure with preserved ejection fraction HLD (hyperlipidemia) HTN (hypertension) HTN (hypertension) Hypocalcemia Hypoxia IBS (irritable bowel syndrome) Knee pain, left Myocardial infarct Nausea and vomiting Orthostasis Renal failure Suprapatellar effusion of knee T2DM (type 2 diabetes mellitus) UTI (urinary tract infection) Surgical History H/O Achilles tendon repair History of appendectomy History of bladder surgery History of carpal tunnel release History of total hysterectomy with bilateral salpingo-oophorectomy (BSO) Hx of amputation Hx of CABG (~2019) Hx of cholecystectomy Hx of endoscopy Hx of knee surgery Hx of tonsillectomy Family History Family History Father No problems noted. Mother Diabetes Hypercholesteremia Hypertension Stroke Social History Social History Household Members: Family Household Members Other:: 1 Housing: Apartment Do you presently have visiting nurse or other home services: Yes Alcohol intake: unknown Patient Tobacco Use Status: Former Tobacco user Years Smoked: 20 Second Hand Smoke Exposure: No Advance Directives: Yes Advance Directives on File: Yes Advance Directives Date on File: 01/13/22 Patient : No service: No Current occupational status: disabled Physical Exam Vital Signs: Vital Signs: Last Vital Signs Temp 97.5 F 05/04/22 13:08 Pulse 69 05/04/22 14:46 Resp 18 05/04/22 14:46 BP 103/43 L 05/04/22 14:46 Pulse Ox 95 05/04/22 14:46 O2 Del Method 05/04/22 14:46 BMI result Body Mass Index 30.2 Const: Other: Appearance: Alert. Oriented X3. Seems weak Eyes: Pupils equal, round and reactive to light. ENT: Pharynx normal. Neck: Normal inspection. Neck supple. No lymph nodes noted. No crepitus CVS: Normal heart rate and rhythm. Pulses normal. Normal S1 and S2 Respiratory: No respiratory distress. Breath sounds normal. No Wheezing. No rales Abdomen: Soft and nontender. No rigidity. No distention. Skin: Skin warm and dry. Pale skin color. Normal skin turgor. Extremities: No lower extremity edema. No Lacerations. No Rash Neuro: Oriented X 3. No motor deficit. No sensory deficit. Moving all extremities. No slurred speech. CN 2 through 12 grossly intact Psych: calm, cooperative, normal affect Course Course Course Narrative: Patient's initial blood pressure in the 80s, patient had a cough in the arm that was too big for her. Initial blood pressure 91/53. Patient states that this is usually her baseline. Patient being given IV fluids. In her medical history patient has history of CHF. In her last echocardiogram in 2019, patient had an ejection fraction of 50-55%, grade 1, mild diastolic dysfunction Of patient's labs are pending. Patient's white blood cell count is pending. Patient is in ISA, creatinine is well above her baseline. I discussed the patient with Dr. Hernandez, patient being admitted for ISA on CKD, C diff PCR pending. At this time, we will not start vancomycin. Elevated lactic acid likely secondary to dehydration. Patient has at baseline a low blood pressure. At this time, sepsis is not suspected. As mentioned above, patient is still being hydrated, patient has been unable to provide a urine sample. Patient's potassium is slightly elevated 5.4, no EKG changes, no peaked T-waves. After IV fluids we will recheck the chemistry again. MDM - Nausea/Vomiting/Diarrhea Lab Data Result diagrams: 05/04/22 13:43 Labs: Lab Results 05/04/22 05/04/22 05/04/22 Range/Units 13:43 13:43 13:43 Sodium 135 (135-145) mmol/L Potassium 5.4 H (3.3-5.1) mmol/L Chloride 103 (96-108) mmol/L Carbon Dioxide 18 L (22-29) mmol/L Anion Gap 19 (12-20) BUN 62 H D (9-16) mg/dL Creatinine 3.58 H (0.5-1.4) mg/dL Estim Creat Clear Calc 15.0 Estimated GFR 13 Random Glucose 110 (60-115) mg/dL Lactic Acid 2.9 H* (0.5-2.0) mmol/L Calcium 9.1 (8.4-10.2) mg/dL Magnesium 2.2 (1.6-2.6) mg/dL Total Bilirubin 0.5 (0.0-1.0) mg/dL Direct Bilirubin < 0.2 (0.0-0.5) mg/dL AST 52 H (5-31) U/L ALT 19 (0-31) U/L Alkaline Phosphatase 92 D (39-117) U/L Total Protein 7.9 (6.5-8.0) g/dL Albumin 3.9 (3.5-5.0) g/dL Lipase 44 (8-78) U/L COVID-19 (KENJI) (Negative) COVID-19 Clin Com Influenza Type A (LAWSON) Negative (Negative) Influenza Type B ([facility]SON) Negative (Negative) Influenza A & B Note See Note 05/04/22 Range/Units 13:43 Sodium (135-145) mmol/L Potassium (3.3-5.1) mmol/L Chloride (96-108) mmol/L Carbon Dioxide (22-29) mmol/L Anion Gap (12-20) BUN (9-16) mg/dL Creatinine (0.5-1.4) mg/dL Estim Creat Clear Calc Estimated GFR Random Glucose (60-115) mg/dL Lactic Acid (0.5-2.0) mmol/L Calcium (8.4-10.2) mg/dL Magnesium (1.6-2.6) mg/dL Total Bilirubin (0.0-1.0) mg/dL Direct Bilirubin (0.0-0.5) mg/dL AST (5-31) U/L ALT (0-31) U/L Alkaline Phosphatase (39-117) U/L Total Protein (6.5-8.0) g/dL Albumin (3.5-5.0) g/dL Lipase (8-78) U/L COVID-19 (KENJI) Negative (Negative) COVID-19 Clin Com See Note Influenza Type A ([facility]WSON) (Negative) Influenza Type B ([facility]SON) (Negative) Influenza A & B Note Discharge Plan Discharge Clinical Impression: Acute kidney injury superimposed on CKD, Diarrhea Patient Disposition: Admitted As Inpatient
[2022-05-04] MEDS: 0.9 % Sodium Chloride 1,000 ML 999 ML IVCONT ×2 (13:46→14:45)
[2022-05-04] MEDS: Loperamide HCl 2 MG CAPSULE 4 MG PO (13:49)
--- NOTE | 2022-05-04 13:51 | PC.NURSE ---
patient a/o x4 warm dry intact . Iv placed right forearm . Iv fluids hung as ordered . patient medicated with for diarrhea . sinus on monitor . resting comfortably
[2022-05-04 14:15] LABS: Lactic Acid 2.9 mmol/L (0.5-2.0)
[2022-05-04 14:16] LABS: Alanine Aminotransferase 19 U/L (0-31); Albumin Level 3.9 g/dL (3.5-5.0); Alkaline Phosphatase 92 U/L (39-117); Anion Gap 19 (12-20); Aspartate Amino Transferase 52 U/L (5-31); Bilirubin Direct < 0.2 mg/dL (0.0-0.5); Bilirubin Total 0.5 mg/dL (0.0-1.0); Blood Urea Nitrogen 62 mg/dL (9-16); COVID-19 Test Negative (Negative); Calcium 9.1 mg/dL (8.4-10.2); Carbon Dioxide 18 mmol/L (22-29); Chloride 103 mmol/L (96-108); Estimated Glomerular Filt Rate 13; Glucose Random 110 mg/dL (60-115); IDNOW Serial# 16C4AD1C; Influenza A Negative (Negative); Influenza B2 Negative (Negative); Lipase 44 U/L (8-78); Magnesium 2.2 mg/dL (1.6-2.6); Potassium 5.4 mmol/L (3.3-5.1); Sodium 135 mmol/L (135-145); Total Protein 7.9 g/dL (6.5-8.0)
--- NOTE | 2022-05-04 15:37 | PM.IMHP ---
History of Present Illness Date of Service: 05/04/22 Chief Complaint: diarrhea, abd pain 62?yo F with HTN, HLD, DM + gastroparesis, CAD s/p CABG, prior CVA, HFpEF, PPM, COPD, osteoporosis, CKD3, autonomic instability who was just admitted here 04/18-04/22/22 with sepsis due to E. coli UTI. She was discharged on cefuroxime and completed her last dose today. Last night, she developed explosive, watery, non-bloody diarrhea. She had an additional 5 episodes today. She also notes abdominal cramping and diffuse myalgias. No vomiting. Initial BP 91/53. CBC pending. Serum creatinine 3.58, compared to 1.64 on 04/22/22. BUN also up to 62. Lactate 2.9. She was given 1L NS. Serum K 5.4 with no EKG changes of hyperkalemia. C. difficile PCR pending. Review of Systems Review of Systems: Yes all other systems are reviewed and are negative [facility] Medical History Acute heart failure with preserved ejection fraction Anemia Anxiety Arthritis Cardiac pacemaker in situ Carpal tunnel syndrome CHF (congestive heart failure) Chronic heart failure with preserved ejection fraction (HFpEF) COPD exacerbation Coronary artery disease CVA (cerebral vascular accident) Diabetes Diabetic gastroparesis Fall Gastritis Gastroparesis Gastroparesis GERD (gastroesophageal reflux disease) Headache Heart failure with preserved ejection fraction HLD (hyperlipidemia) HTN (hypertension) HTN (hypertension) Hypocalcemia Hypoxia IBS (irritable bowel syndrome) Knee pain, left Myocardial infarct Nausea and vomiting Orthostasis Renal failure Suprapatellar effusion of knee T2DM (type 2 diabetes mellitus) UTI (urinary tract infection) Family History Father No problems noted. Mother Diabetes Hypercholesteremia Hypertension Stroke Surgical History H/O Achilles tendon repair History of appendectomy History of bladder surgery History of carpal tunnel release History of total hysterectomy with bilateral salpingo-oophorectomy (BSO) Hx of amputation Hx of CABG (~2019) Hx of cholecystectomy Hx of endoscopy Hx of knee surgery Hx of tonsillectomy Social History Household Members: Family Household Members Other:: 1 Housing: Apartment Do you presently have visiting nurse or other home services: Yes Alcohol intake: unknown Patient Tobacco Use Status: Former Tobacco user Years Smoked: 20 Second Hand Smoke Exposure: No Advance Directives: Yes Advance Directives on File: Yes Advance Directives Date on File: 01/13/22 Patient : No service: No Current occupational status: disabled Meds Allergies Allergy/AdvReac Type Severity Reaction Status Date / Time tetracycline [Tetracycline] Allergy Mild HIVES, Verified 05/04/22 13:14 anaphylaxis, anaphylaxis Active Medications: Current Medications Acetaminophen (Acetaminophen 325 Mg Tablet) 650 mg PO Q6H PRN PRN Reason: Pain, Mild (Pain Scale 1-3) Fidaxomicin (Fidaxomicin 200 Mg Tablet) 200 mg PO Q12H LAW Heparin Sodium (Porcine) (Heparin Sodium,Porcine 5,000 Unit/Ml Vial) 5,000 unit SUBCUT Q12H LAW Sodium Chloride (Ns) 1,000 mls @ 100 mls/hr IVCONT .Q10H LAW Ondansetron HCl (Ondansetron Hcl 4 Mg/2 Ml Vial) 4 mg IVPUSH Q8H PRN PRN Reason: Nausea and Vomiting Pharmacy Consult (Consult Rx Perform Med Rec) 1 each MISCELLANE STAT STA Stop: 05/04/22 14:40 Home Medications Medication Instructions Recorded Confirmed Last Taken Type lorazepam 0.5 mg tablet 0.5 mg PO BID PRN Anxiety 09/14/20 04/18/22 03/22/22 History allopurinol 100 mg tablet 100 mg PO DAILY 09/16/20 04/18/22 04/17/22 History aspirin 81 mg tablet,delayed 81 mg PO DAILY 09/16/20 04/18/22 04/17/22 History release ferrous sulfate 325 mg (65 mg 325 mg PO DAILY 12/22/20 04/18/22 04/17/22 History iron) tablet (iron) tamsulosin 0.4 mg capsule 0.4 mg PO DAILY@1700 12/22/20 04/18/22 04/17/22 History melatonin 5 mg tablet 5 mg PO BEDTIME PRN Sleep 01/08/21 04/18/22 04/14/22 History nitroglycerin 0.4 mg sublingual 0.4 mg sublingual Q5M PRN Chest 01/08/21 04/18/22 03/22/22 History tablet Pain gabapentin 100 mg capsule 200 mg PO TID 03/06/21 04/18/22 04/17/22 History metoclopramide HCl 5 mg tablet 5 mg PO TIDWM 03/20/21 04/18/22 04/17/22 History pantoprazole 40 mg tablet,delayed 1 tab PO BID 01/10/22 04/18/22 04/17/22 History release trazodone 50 mg tablet 0.5 tab PO BEDTIME PRN Sleep 01/10/22 04/18/22 04/17/22 History atorvastatin 80 mg tablet 80 mg PO BEDTIME 01/21/22 04/18/22 04/17/22 History linagliptin 5 mg tablet (Tradjenta) 5 mg PO DAILY 01/21/22 04/18/22 04/17/22 History metoprolol succinate 25 mg 1 tab PO DAILY 02/19/22 04/18/22 04/17/22 History tablet,extended release 24 hr acetaminophen 500 mg tablet 1 tab PO Q6H PRN Pain 03/23/22 04/18/22 03/22/22 History cholecalciferol (vitamin D3) 25 1 cap PO DAILY 03/23/22 04/18/22 04/17/22 History mcg (1,000 unit) capsule insulin aspart U-100 100 unit/mL See Protocol subcut QIDWMHS 04/15/22 04/18/22 04/18/22 History (3 mL) subcutaneous pen (Novolog Flexpen U-100 Insulin aspart) loperamide 2 mg capsule 2 mg PO DAILY PRN Diarrhea 04/15/22 04/18/22 Unknown History furosemide 40 mg tablet 20 mg PO DAILY 04/18/22 04/18/22 04/17/22 History insulin degludec 100 unit/mL (3 32 unit subcut DAILY 05/04/22 05/04/22 05/04/22 History mL) subcutaneous pen (Tresiba FlexTouch U-100 insulin) sodium zirconium cyclosilicate 5 5 g PO Q2D 05/04/22 05/04/22 05/04/22 History gram oral powder packet (Lokelma) Physical Exam Vital Signs and Narrative: Vital Signs: Last Vital Signs Temp 97.5 F 05/04/22 13:08 Pulse 69 05/04/22 14:46 Resp 18 05/04/22 14:46 BP 103/43 L 05/04/22 14:46 Pulse Ox 95 05/04/22 14:46 O2 Del Method 05/04/22 14:46 BMI result Body Mass Index 30.2 Gen: in no acute distress HEENT: sclera anicteric, dry mucosa Neck: supple Lungs: clear to auscultation bilaterally Heart: regular rate and rhythm, no murmurs Abd: soft, diffuse tenderness without rebound/guarding Ext: no edema Skin: warm/well-perfused Neuro: alert and oriented x3, no focal findings Psych: appropriate affect Results Labs CBC and Chem 7: 05/04/22 13:43 Labs: Laboratory Results - last 24 hr 05/04/22 05/04/22 05/04/22 13:43 13:43 13:43 Anion Gap 19 Estim Creat Clear Calc 15.0 Estimated GFR 13 Random Glucose 110 Lactic Acid 2.9 H* Calcium 9.1 Magnesium 2.2 Total Bilirubin 0.5 Direct Bilirubin < 0.2 AST 52 H ALT 19 Alkaline Phosphatase 92 D Total Protein 7.9 Albumin 3.9 Lipase 44 COVID-19 ([facility]JI) COVID-19 Clin Com Influenza Type A ([facility]SON) Negative Influenza Type B ([facility]WSON) Negative Influenza A & B Note See Note 05/04/22 13:43 Anion Gap Estim Creat Clear Calc Estimated GFR Random Glucose Lactic Acid Calcium Magnesium Total Bilirubin Direct Bilirubin AST ALT Alkaline Phosphatase Total Protein Albumin Lipase COVID-19 (KENJI) Negative COVID-19 Clin Com See Note Influenza Type A (LAWSON) Influenza Type B ([facility]WSON) Influenza A & B Note Assessment and Plan (1) Acute kidney injury superimposed on CKD: Status: Acute Plan 62?yo F with HTN, HLD, DM + gastroparesis, prior CVA, CHF, PPM, COPD, osteoporosis, CKD3?with recent admission for E. coli UTI causing sepsis, presenting with explosive diarrhea and found to be in ISA # ISA/CKD3 - admit to IMC, give IV fluid hydration with caution for volume overload, hold lisinopril, recheck BMP in AM # diarrhea - highly suspect C. difficile which would be severe by virtue of SCr >1.5. treat empirically with fidoxamicin pending C. difficile PCR results # lactic acidosis - likely due to dehydration, not septic # hyperK - 1 dose SZC, hold lisinopril, recheck BMP in AM # DM2 - hold long-acting insulin, give correction-dose lispro # CAD # HLD # prior CVA - continue statin, ASA, metoprolol succinate # chronic HFpEF - hold furosemide as likely prerenal - continue metoprolol succinate # gastroparesis - metoclopramide # neuropathy - gabapentin- reduce dose for renal insufficiency # VTE ppx - UFH # code - full Quality Stroke Does the patient have a stroke diagnosis?: No VTE Prior VTE?: No VTE Risk Level:: Medical - moderate - high VTE Device Contraindication: N/A - Device Ordered VTE Drug Contraindication: N/A - Med Ordered
--- NOTE | 2022-05-04 15:40 | PHA.MEDREC ---
Pharmacy Consult ? Medication Reconciliation Pharmacy has completed the medication reconciliation.Spoke with patient in the ED. Patient took all AM medications.
[2022-05-04 15:51] LABS: Reflex Lactate? Lactic Acid Added
[2022-05-04] MEDS: Tamsulosin HCL 0.4 MG CAPSULE PO (16:49)
[2022-05-04] MEDS: Heparin Sodium,Porcine 5,000 UNIT/ML VIAL 5000 UNIT SUBCUT (16:50)
[2022-05-04] MEDS: Sodium Zirconium Cyclosilicate 5 GM POWD.PACK PO (16:51)
[2022-05-04] MEDS: Metoclopramide HCl 5 MG TABLET PO (16:53)
[2022-05-04] MEDS: Fidaxomicin 200 MG TABLET PO (16:53)
[2022-05-04] MEDS: Acetaminophen 325 MG TABLET 650 MG PO ×2 (17:04→22:19)
[2022-05-04] MEDS: 0.9 % Sodium Chloride 1,000 ML 100 ML IVCONT (17:18)
[2022-05-04 17:20] LABS: Glucose, Whole Blood 108 mg/dL (60-115)
[2022-05-04 18:03] LABS: MANUAL DIFF FLAG NO
[2022-05-04 18:17] LABS: ~Lactic Acid-LAB USE ONLY 0.9 mmol/L (0.5-2.0)
[2022-05-04 18:24] LABS: Basophils Percent Auto 0.4 % (0-2); Eosinophils Absolute Auto 0.1 X10*3/uL (0.0-0.4); Eosinophils Percent Auto 0.7 % (0-4); Hematocrit 31.4 % (37.0-47.0); Hemoglobin 9.8 g/dl (12.0-16.0); Imm Gran Abs Auto 0.05 X10*3/uL (0.00-0.03); Imm Gran Pct Auto 0.4 % (0.0-0.4); Lymphocytes Absolute Auto 1.7 X10*3/uL (1.2-4.9); Lymphocytes Percent Auto 14.9 % (20-40); Mean Corpuscular HGB Conc 31.2 g/dl (31.0-35.0); Mean Corpuscular Hemoglobin 30.8 pg (27.0-33.0); Mean Corpuscular Volume 98.7 fL (80.0-98.0); Mean Platelet Volume 10.9 fL (9.4-12.3); Monocytes Absolute Auto 0.9 X10*3/uL (0.1-1.2); Monocytes Percent Auto 7.9 % (2-11); Neutrophils Absolute Auto 8.4 x10*3/uL (2.0-8.3); Neutrophils Percent Auto 75.7 % (45-73); Platelet Count 257 X10*3/uL (160-400); Red Blood Count 3.18 X10*6/uL (4.20-5.50); Red Cell Distribution Width 14.6 % (11.0-16.0); White Blood Count 11.1 X10*3/uL (4.8-10.8)
--- NOTE | 2022-05-04 19:08 | PC.NURSE ---
Addendum entered by Peggy Sims 05/05/22 02:27: report given to AYUSH Rodrigues Original Note: report received from AYUSH Rice. pt resting in bed. no signs of acute distress notice. breathing equally unlabored. pt on continuous cardiac monitoring
[2022-05-04 22:16] LABS: Glucose, Whole Blood 66 mg/dL (60-115)
[2022-05-04] MEDS: Atorvastatin Calcium 80 MG TABLET PO (22:19)
[2022-05-04] MEDS: Gabapentin 100 MG CAPSULE PO (22:19)
[2022-05-04] MEDS: traZODone HCL 25 MG HALFTAB PO (22:19)
--- NOTE | 2022-05-04 22:21 | MHC.CM.PN ---
IMM 05/04. HCP on file. HCP/grandchild June Malik ([phone]), lives with patient. [facility]. PCP Shaneka Burton. [employer] (granddaughter) and [facility]. Referral to follow in [facility]. Uses walker, cane/wheelchair. Vax/boosted/Moderna. D/C plan: Home with existing services. BLS/W/C van at discharge.
--- NOTE | 2022-05-05 | ECG_ITS ---
Test Reason : CHEST PAIN Blood Pressure : / mmHG Vent. Rate : 063 BPM Atrial Rate : 063 BPM P-R Int : 216 ms QRS Dur : 128 ms QT Int : 508 ms P-R-T Axes : 071 105 053 degrees QTc Int : 519 ms Atrial-sensed ventricular-paced rhythm with prolonged AV conduction Abnormal ECG When compared with ECG of 04-MAY-2022 13:35, Vent. rate has decreased BY 9 BPM Referred By: Yung Hernandez Electronically Signed By:Efren Diaz
[2022-05-05 00:12] VITALS: BP 102/36; PULSE 63; RESP 12; O2SAT 97
[2022-05-05 00:46] LABS: Appearance Urine CLEAR; Color Urine YELLOW; Glucose Urine UA NEG (NEG); Leukocyte Esterase Urine NEG (NEG); Nitrite Urine NEG (NEG); PH 5.5 (5.0-8.0); UACC Culture Trigger NO; Urine Blood 1+ (NEG); Urine Ketones NEG (NEG); Urine Protein TRACE MG/DL (NEG-TRACE)
[2022-05-05 00:52] LABS: Bacteria Urine 1+ /LPF; RBC Urine 0-2 /HPF (0); Squamous Epithelial Cell Urine 2+ /LPF
[2022-05-05 00:53] LABS: Mucus Urine 1+ /LPF
[2022-05-05 04:53] LABS: Hematocrit 28.6 % (37.0-47.0); Hemoglobin 9.1 g/dl (12.0-16.0); Mean Corpuscular HGB Conc 31.8 g/dl (31.0-35.0); Mean Corpuscular Hemoglobin 30.6 pg (27.0-33.0); Mean Corpuscular Volume 96.3 fL (80.0-98.0); Mean Platelet Volume 10.8 fL (9.4-12.3); Platelet Count 247 X10*3/uL (160-400); Red Blood Count 2.97 X10*6/uL (4.20-5.50); Red Cell Distribution Width 14.6 % (11.0-16.0); White Blood Count 8.5 X10*3/uL (4.8-10.8)
[2022-05-05 05:24] LABS: Anion Gap 15 (12-20); Blood Urea Nitrogen 59 mg/dL (9-16); Calcium 7.8 mg/dL (8.4-10.2); Carbon Dioxide 18 mmol/L (22-29); Chloride 109 mmol/L (96-108); Creatinine Clr Calc Pharmacy 17.9; Estimated Glomerular Filt Rate 16; Glucose Random 107 mg/dL (60-115); Potassium 4.5 mmol/L (3.3-5.1); Sodium 137 mmol/L (135-145)
[2022-05-05] MEDS: Heparin Sodium,Porcine 5,000 UNIT/ML VIAL 5000 UNIT SUBCUT (06:27)
[2022-05-05] MEDS: Omeprazole 20 MG CAPSULE.DR PO (06:27)
[2022-05-05 06:33] VITALS: BP 110/37; PULSE 69; RESP 12; O2SAT 95
--- NOTE | 2022-05-05 07:00 | CA_ITS ---
Transthoracic Echocardiogram Patient (Last, First, Middle): Lida Dia M Gender: Female Date of : 1960 Age: 62 Procedure Date: 05/05/2022 Procedure Type: Transthoracic Echocardiogram Location: [facility] Height: 157.48 cm Weight: 74.84 kg BSA: 1.76 m2 Heart Rate: bpm BP: 110 / 62 mmHg Proposal Engineer: Referring MD: Yung Hernandez MD Symptoms: VT 12 beats, chest pain Study Quality: Good ECG Rhythm: Sinus Conclusions: - Normal left ventricular size and systolic function. There is severely increased left ventricular wall thickness. The visually estimated ejection fraction is between 55-60%. - E/E prime ratio is >15, consistent with elevated filling pressures. - Normal right ventricular cavity size and systolic function. Findings Left Ventricle Normal left ventricular size and systolic function. There is severely increased left ventricular wall thickness. The visually estimated ejection fraction is between 55-60%. There is no evidence of regional wall motion abnormalities. Abnormal diastolic function is noted. Spectral Doppler is indicative of an impaired relaxation filling pattern. E/E prime ratio is >15, consistent with elevated filling pressures. Right Ventricle Normal right ventricular cavity size and systolic function. Atria The left atrium is mildly dilated. Aortic Valve There is a normal trileaflet aortic valve. There is no aortic valve stenosis. There is no aortic valve regurgitation. Mitral Valve The mitral valve appears normal. There is mild mitral valve regurgitation. There is no mitral valve stenosis. Tricuspid Valve Normal tricuspid valve structure and function. There is mild to moderate tricuspid valve regurgitation. Normal right atrial pressure. Mild pulmonary hypertension is present. Great Vessels All visible segments of the aorta are normal in size. The visualized portions of the pulmonary artery and branches are normal. Venous The inferior vena cava is normal in size and collapses greater than 50% with inspiration. Pericardium/Pleural There is no evidence of pericardial effusion. Prior Study Comparison No significant change compared to prior study dated: 11/01/2020. Measurements 2D Linear Measurements IVSd: 1.40 0.6-0.9/0.6-1.0 cm LVIDd: 3.96 3.9-5.3/4.2-5.9 cm LVIDd Index: 2.25 2.4-3.2/2.2-3.1 cm/m2 LVIDs: 2.30 2.0-3.6 cm LVPWd: 1.31 0.7-1.1 cm Ao Root: 3.00 2.1-3.5 cm LA Diam: 4.10 2.7-3.8/3.0-4.0 cm LAIDs Index: 2.33 1.5-2.3 cm/m2 LV Mass: 244.03 67-162/88-224 g LV Mass Index: 138.65 43-95/49-115 g/m2 LVOT Diam: 2.00 3.0+(-)1.3 cm Mitral Valve MV Pk E: 1.11 MV PK A: 1.21 MV Decel Time: 214.00 E/A: 0.90 E'Lateral: 5.87 E'Medial: 5.77 E/E' Med: 19.20 E/E' Lat: 18.90 PHT: 63.00 MVA PHT: 3.49 Decel [place]: 5.19 Aortic Valve AoV Pk Khadar: 1.51 AoV Mn Khadar: 0.93 AoV VTI: 0.33 AoV Pk Grad: 9.00 Aov Mn Grad: 4.00 YAMIL Cont.VTI: 2.11 LVOT LVOT Pk Khadar: 1.02 LVOT Mn Khadar: 0.68 LVOT VTI: 0.22 LVOT Pk Grad: 4.00 LVOT Mn Grad: 2.00 LVOT Diam: 2.00 LVOT Area: 3.14 Diastolic Function MV Pk E: 1.11 MV Pk A: 1.21 E/A: 0.90 E'Medial: 5.77 E/E' Med: 19.20 E' Laterial: 5.87 E/E' Lat: 18.90 Tricuspid Valve TR Pk Khadar: 3.21 TR Pk Grad: 41.00 RVSP: 45.00 Great Vessels Aorta Ao Root-2D: 3.00 2.0-3.7 cm Ao Asc: 3.10 2.1-3.4 cm Pulmonary Valve PV Pk Khadar: 0.93 Peak PV Grad: 3.00 Updated in Other Vendor System with Status of Final Efren Diaz MD electronically signed on 05/05/2022 3:41:04 PM with status of Final
[2022-05-05 07:37] LABS: Glucose, Whole Blood 75 mg/dL (60-115)
[2022-05-05 07:39] VITALS: BP 127/77; PULSE 72; RESP 18; TEMP 36.3
[2022-05-05 07:51] LABS: C Reactive Protein 1.62 mg/dL (< or = 0.50)
[2022-05-05] MEDS: Gabapentin 100 MG CAPSULE PO ×3 (08:38→21:56)
[2022-05-05] MEDS: Ferrous Sulfate 324 MG TABLET.DR PO (08:38)
[2022-05-05] MEDS: Cholecalciferol (Vitamin D3) 25 MCG TABLET PO (08:38)
[2022-05-05] MEDS: Metoprolol Succinate ER 25 MG TAB.ER.24H PO ×2 (08:38→17:50)
[2022-05-05] MEDS: Fidaxomicin 200 MG TABLET PO (08:39)
[2022-05-05] MEDS: Metoclopramide HCl 5 MG TABLET PO ×3 (08:39→17:49)
[2022-05-05] MEDS: Aspirin Enteric Coated 81 MG TABLET.DR PO (08:39)
[2022-05-05 11:57] VITALS: BP 132/51; PULSE 65; TEMP 36.5; O2SAT 100
[2022-05-05] MEDS: 0.9 % Sodium Chloride 1,000 ML 100 ML IVCONT ×2 (12:03→19:42)
[2022-05-05] MEDS: Nitroglycerin 2 % Oint 1 GM Packet 1 INCH TRANSDERMA (12:30)
[2022-05-05] MEDS: Aspirin 325 MG TABLET PO (12:31)
[2022-05-05 12:37] LABS: Prothrombin Time 11.6 SEC (9.9-13.0)
[2022-05-05 12:40] LABS: PTT Heparin Drip 24.5 SEC (53-77.9)
[2022-05-05 12:41] LABS: Glucose, Whole Blood 80 mg/dL (60-115)
--- NOTE | 2022-05-05 12:56 | P.CONCA_ITS ---
History of Present Illness History of Present Illness Date of Service: 05/05/22 Requesting physician: Yung Hernandez Chief complaint: IAS, NSTEMI Narrative: 62-year-old female who has known history of coronary artery disease with previous bypass surgery 2018. At that time she had severe circumflex and IFR positive LAD disease and underwent bypass surgery with PRADO to LAD and saphenous vein graft to OM. She also had diffuse distal PDA stenosis which was small ve ssel disease and was not bypassed and was medically treated. She has advanced kidney disease unfortunately and has been admitted for different reasons including recent infection. She is now presenting with significant diarrhea and is being treated for C diff. at the same time she complained of chest discomfort and ruled in for NSTEMI. She is saying she has pressure-like feeling in her chest which is persistently present. Her creatinine at baseline is anywhere between 1.6-2.1. On admission her creatinine was 3.58 which is coming down to 3.00 at this point. High sensitivity troponin level was 885 on last admission in March. On this admission the high sensitivity troponin level is 6890. EKG reviewed which does not have any significant dynamic changes at this point. She has a paced rhythm. Last echocardiogram was in October 2020 when she had low normal ejection fraction of 50 55% and elevated filling pressures. Right ventricular function was low normal. No significant valvular disease was noted. [facility] Past Medical History Medical History Acute heart failure with preserved ejection fraction Anemia Anxiety Arthritis Cardiac pacemaker in situ Carpal tunnel syndrome CHF (congestive heart failure) Chronic heart failure with preserved ejection fraction (HFpEF) COPD exacerbation Coronary artery disease CVA (cerebral vascular accident) Diabetes Diabetic gastroparesis Fall Gastritis Gastroparesis Gastroparesis GERD (gastroesophageal reflux disease) Headache Heart failure with preserved ejection fraction HLD (hyperlipidemia) HTN (hypertension) HTN (hypertension) Hypocalcemia Hypoxia IBS (irritable bowel syndrome) Knee pain, left Myocardial infarct Nausea and vomiting Orthostasis Renal failure Suprapatellar effusion of knee T2DM (type 2 diabetes mellitus) UTI (urinary tract infection) Family History Family History Father No problems noted. Mother Diabetes Hypercholesteremia Hypertension Stroke Surgical History Surgical History H/O Achilles tendon repair History of appendectomy History of bladder surgery History of carpal tunnel release History of total hysterectomy with bilateral salpingo-oophorectomy (BSO) Hx of amputation Hx of CABG (~2019) Hx of cholecystectomy Hx of endoscopy Hx of knee surgery Hx of tonsillectomy Social History Social History Household Members: Family Household Members Other:: 1 Housing: Apartment Do you presently have visiting nurse or other home services: Yes Alcohol intake: unknown Patient Tobacco Use Status: Former Tobacco user Years Smoked: 20 Second Hand Smoke Exposure: No Advance Directives: Yes Advance Directives on File: Yes Advance Directives Date on File: 01/13/22 Patient : No service: No Current occupational status: disabled Meds Allergies Allergy/AdvReac Type Severity Reaction Status Date / Time tetracycline [Tetracycline] Allergy Mild HIVES, Verified 05/04/22 13:14 anaphylaxis, anaphylaxis Active Medications: Current Medications Acetaminophen (Acetaminophen 325 Mg Tablet) 650 mg PO Q6H PRN PRN Reason: Pain, Mild (Pain Scale 1-3) Last Admin: 05/04/22 22:19 Dose: 650 mg Aspirin (Aspirin Enteric Coated 81 Mg Tablet.) 81 mg PO DAILY [facility] Last Admin: 05/05/22 08:39 Dose: 81 mg Atorvastatin Calcium (Atorvastatin Calcium 80 Mg Tablet) 80 mg PO BEDTIME [facility] Last Admin: 05/04/22 22:19 Dose: 80 mg Dextrose (Dextrose 50 % 25 Gm/50 Ml Syringe) 25 gm IVPUSH Q15M PRN; Protocol PRN Reason: per Hypoglycemia Standing Ord. Ferrous Sulfate (Ferrous Sulfate 324 Mg Tablet.) 324 mg PO DAILY [facility] Last Admin: 05/05/22 08:38 Dose: 324 mg Fidaxomicin (Fidaxomicin 200 Mg Tablet) 200 mg PO Q12H [facility] Last Admin: 05/05/22 08:39 Dose: 200 mg Gabapentin (Gabapentin 100 Mg Capsule) 100 mg PO TID [facility] Last Admin: 05/05/22 08:38 Dose: 100 mg Glucose (Glucose Gel 15 Gm Gel..Gram.) 15 gm PO Q15M PRN; Protocol PRN Reason: per Hypoglycemia Standing Ord. Heparin Sodium (Porcine) (Heparin Sodium,Porcine 5,000 Unit/Ml Vial) 3,200 unit 40 unit/kg (3200 unit) IVPUSH PROTOCOL BOLUS PRN; Protocol PRN Reason: 40 unit/kg - Heparin Protocol Heparin Sodium (Porcine) (Heparin Sodium,Porcine 5,000 Unit/Ml Vial) 6,500 unit 80 unit/kg (6500 unit) IVPUSH PROTOCOL BOLUS PRN; Protocol PRN Reason: 80 unit/kg - Heparin Protocol Sodium Chloride (Ns) 1,000 mls @ 100 mls/hr IVCONT .Q10H [facility] Last Admin: 05/05/22 12:03 Dose: 100 mls/hr Heparin Sodium/Sodium Chloride () 25,000 unit in 250 mls @ 0 mls/hr IVCONT .Q0M [facility]; Protocol Insulin Human Lispro (Insulin Lispro 100 Unit/Ml 3 Ml Vial) 0 unit SUBCUT QIDACHS [facility]; Protocol Last Admin: 05/05/22 08:23 Dose: Not Given Lorazepam (Lorazepam 0.5 Mg Tablet) 0.5 mg PO BID PRN PRN Reason: Anxiety Melatonin (Melatonin 3 Mg Tablet) 6 mg PO BEDTIME PRN PRN Reason: Sleep Metoclopramide HCl (Metoclopramide Hcl 5 Mg Tablet) 5 mg PO TIDWM [facility] Last Admin: 05/05/22 12:30 Dose: 5 mg Metoprolol Succinate (Metoprolol Succinate Er 25 Mg Tab.Er.24h) 25 mg PO DAILY [facility]; Protocol Last Admin: 05/05/22 08:38 Dose: 25 mg Nitroglycerin (Nitroglycerin 0.4 Mg Tab.Subl) 0.4 mg SUBLINGUAL Q5M PRN PRN Reason: Chest Pain Omeprazole (Omeprazole 20 Mg Capsule.Dr) 20 mg PO DAILY@0630 [facility] Last Admin: 05/05/22 06:27 Dose: 20 mg Ondansetron HCl (Ondansetron Hcl 4 Mg/2 Ml Vial) 4 mg IVPUSH Q8H PRN PRN Reason: Nausea and Vomiting Tamsulosin HCl (Tamsulosin Hcl 0.4 Mg Capsule) 0.4 mg PO DAILY@1700 [facility] Last Admin: 05/04/22 16:49 Dose: 0.4 mg Trazodone HCl (Trazodone Hcl 25 Mg Halftab) 25 mg PO BEDTIME PRN PRN Reason: Sleep Last Admin: 05/04/22 22:19 Dose: 25 mg Vitamin D (Cholecalciferol (Vitamin D3) 25 Mcg Tablet) 25 mcg PO DAILY [facility] Last Admin: 05/05/22 08:38 Dose: 25 mcg Home Medications Medication Instructions Recorded Confirmed Last Taken Type lorazepam 0.5 mg tablet 0.5 mg PO BID PRN Anxiety 09/14/20 05/04/22 03/22/22 History allopurinol 100 mg tablet 100 mg PO DAILY 09/16/20 05/04/22 05/04/22 History aspirin 81 mg tablet,delayed 81 mg PO DAILY 09/16/20 05/04/22 05/04/22 History release ferrous sulfate 325 mg (65 mg 325 mg PO DAILY 12/22/20 05/04/22 05/04/22 History iron) tablet (iron) tamsulosin 0.4 mg capsule 0.4 mg PO DAILY@1700 12/22/20 05/04/22 05/03/22 History melatonin 5 mg tablet 5 mg PO BEDTIME PRN Sleep 01/08/21 05/04/22 04/14/22 History nitroglycerin 0.4 mg sublingual 0.4 mg sublingual Q5M PRN Chest 01/08/21 05/04/22 03/22/22 History tablet Pain gabapentin 100 mg capsule 200 mg PO TID 03/06/21 05/04/22 05/04/22 History metoclopramide HCl 5 mg tablet 5 mg PO TIDWM 03/20/21 05/04/22 05/04/22 History pantoprazole 40 mg tablet,delayed 1 tab PO DAILY 01/10/22 05/04/22 05/04/22 History release trazodone 50 mg tablet 0.5 tab PO BEDTIME PRN Sleep 01/10/22 05/04/22 04/17/22 History atorvastatin 80 mg tablet 80 mg PO BEDTIME 01/21/22 05/04/22 05/03/22 History linagliptin 5 mg tablet (Tradjenta) 5 mg PO DAILY 01/21/22 05/04/22 05/04/22 History metoprolol succinate 25 mg 1 tab PO DAILY 02/19/22 05/04/22 05/04/22 History tablet,extended release 24 hr acetaminophen 500 mg tablet 1 tab PO Q6H PRN Pain 03/23/22 05/04/22 03/22/22 History cholecalciferol (vitamin D3) 25 1 cap PO DAILY 03/23/22 05/04/22 05/04/22 History mcg (1,000 unit) capsule insulin aspart U-100 100 unit/mL See Protocol subcut TIDAC 04/15/22 05/04/22 05/04/22 History (3 mL) subcutaneous pen (Novolog Flexpen U-100 Insulin aspart) loperamide 2 mg capsule 2 mg PO DAILY PRN Diarrhea 04/15/22 05/04/22 Unknown History furosemide 40 mg tablet 40 mg PO DAILY 04/18/22 05/04/22 05/04/22 History insulin degludec 100 unit/mL (3 32 unit subcut DAILY 05/04/22 05/04/22 05/04/22 History mL) subcutaneous pen (Tresiba FlexTouch U-100 insulin) sodium zirconium cyclosilicate 5 5 g PO Q2D 05/04/22 05/04/22 05/04/22 History gram oral powder packet (Lokelma) Physical Exam Vital Signs: Vital Signs: Last Vital Signs Temp 97.7 F 05/05/22 11:57 Pulse 65 05/05/22 11:57 Resp 18 05/05/22 07:39 BP 132/51 L 05/05/22 11:57 Pulse Ox 100 05/05/22 11:57 O2 Del Method 05/05/22 11:57 BMI result Body Mass Index 32.6 GENERAL APPEARANCE: in no acute distress, pleasant. NECK: no carotid bruit, + jugular venous distention. SKIN: no suspicious lesions, warm and dry. HEART: no murmurs, regular rate and rhythm. LUNGS: clear to auscultation bilaterally. ABDOMEN: soft, nontender. EXTREMITIES: Mild edema. PERIPHERAL PULSES: equal. NEUROLOGIC: No gross deficits, AAO X 3 Objective Labs and Meds Result diagrams: 05/05/22 04:19 05/05/22 04:19 Lab results: Laboratory Results - last 24 hr 05/04/22 05/04/22 05/04/22 13:43 13:43 13:43 WBC RBC Hgb Hct MCV MCH MCHC RDW Plt Count MPV Immature Gran % (Auto) Neut % (Auto) Lymph % (Auto) [place] % (Auto) Eos % (Auto) Baso % (Auto) Lymph # (Auto) [place] # (Auto) Eos # (Auto) Baso # (Auto) Abs Immat Gran (auto) Absolute Neuts (auto) Absolute Nucleated RBC Nucleated RBC % (auto) PT INR aPTT Heparin Protocol Sodium 135 Potassium 5.4 H Chloride 103 Carbon Dioxide 18 L Anion Gap 19 BUN 62 H D Creatinine 3.58 H Estim Creat Clear Calc 15.0 Estimated GFR 13 POC Glucose Random Glucose 110 Lactic Acid 2.9 H* Lactic Acid F/U @ 2Hr Calcium 9.1 Magnesium 2.2 Total Bilirubin 0.5 Direct Bilirubin < 0.2 AST 52 H ALT 19 Alkaline Phosphatase 92 D Troponin I High Sens C-Reactive Protein Total Protein 7.9 Albumin 3.9 Lipase 44 Urine Color Urine Appearance Urine pH Ur Specific [place] Urine Protein Urine Glucose (UA) Urine Ketones Urine Blood Urine Nitrite Ur Leukocyte Esterase Urine RBC Urine WBC Ur Squamous Epith Cells Urine Bacteria Urine Mucus Urine Yeast COVID-19 (KENJI) COVID-19 Clin Com Influenza Type A (LAWSON) Negative Influenza Type B (LAWSON) Negative Influenza A & B Note See Note 05/04/22 05/04/22 05/04/22 13:43 16:54 17:56 WBC 11.1 H RBC 3.18 L Hgb 9.8 L Hct 31.4 L MCV 98.7 H MCH 30.8 MCHC 31.2 RDW 14.6 Plt Count 257 D MPV 10.9 Immature Gran % (Auto) 0.4 Neut % (Auto) 75.7 H Lymph % (Auto) 14.9 L [place] % (Auto) 7.9 Eos % (Auto) 0.7 Baso % (Auto) 0.4 Lymph # (Auto) 1.7 [place] # (Auto) 0.9 Eos # (Auto) 0.1 Baso # (Auto) 0.0 Abs Immat Gran (auto) 0.05 H Absolute Neuts (auto) 8.4 H Absolute Nucleated RBC 0.000 Nucleated RBC % (auto) 0.0 PT INR aPTT Heparin Protocol Sodium Potassium Chloride Carbon Dioxide Anion Gap BUN Creatinine Estim Creat Clear Calc Estimated GFR POC Glucose 108 Random Glucose Lactic Acid Lactic Acid F/U @ 2Hr Calcium Magnesium Total Bilirubin Direct Bilirubin AST ALT Alkaline Phosphatase Troponin I High Sens C-Reactive Protein Total Protein Albumin Lipase Urine Color Urine Appearance Urine pH Ur Specific [place] Urine Protein Urine Glucose (UA) Urine Ketones Urine Blood Urine Nitrite Ur Leukocyte Esterase Urine RBC Urine WBC Ur Squamous Epith Cells Urine Bacteria Urine Mucus Urine Yeast COVID-19 (KENJI) Negative COVID-19 Clin Com See Note Influenza Type A (LAWSON) Influenza Type B (LAWSON) Influenza A & B Note 05/04/22 05/04/22 05/05/22 17:56 22:11 00:01 WBC RBC Hgb Hct MCV MCH MCHC RDW Plt Count MPV Immature Gran % (Auto) Neut % (Auto) Lymph % (Auto) [place] % (Auto) Eos % (Auto) Baso % (Auto) Lymph # (Auto) [place] # (Auto) Eos # (Auto) Baso # (Auto) Abs Immat Gran (auto) Absolute Neuts (auto) Absolute Nucleated RBC Nucleated RBC % (auto) PT INR aPTT Heparin Protocol Sodium Potassium Chloride Carbon Dioxide Anion Gap BUN Creatinine Estim Creat Clear Calc Estimated GFR POC Glucose 66 Random Glucose Lactic Acid Lactic Acid F/U @ 2Hr 0.9 Calcium Magnesium Total Bilirubin Direct Bilirubin AST ALT Alkaline Phosphatase Troponin I High Sens C-Reactive Protein Total Protein Albumin Lipase Urine Color YELLOW Urine Appearance CLEAR Urine pH 5.5 Ur Specific [place] 1.020 Urine Protein TRACE Urine Glucose (UA) NEG Urine Ketones NEG Urine Blood 1+ H Urine Nitrite NEG Ur Leukocyte Esterase NEG Urine RBC 0-2 Urine WBC 1-4 Ur Squamous Epith Cells 2+ Urine Bacteria 1+ Urine Mucus 1+ Urine Yeast TRACE COVID-19 (KENJI) COVID-19 Clin Com Influenza Type A (LAWSON) Influenza Type B (LAWSON) Influenza A & B Note 05/05/22 05/05/22 05/05/22 04:19 04:19 07:28 WBC 8.5 RBC 2.97 L Hgb 9.1 L Hct 28.6 L MCV 96.3 MCH 30.6 MCHC 31.8 RDW 14.6 Plt Count 247 MPV 10.8 Immature Gran % (Auto) Neut % (Auto) Lymph % (Auto) [place] % (Auto) Eos % (Auto) Baso % (Auto) Lymph # (Auto) [place] # (Auto) Eos # (Auto) Baso # (Auto) Abs Immat Gran (auto) Absolute Neuts (auto) Absolute Nucleated RBC 0.000 Nucleated RBC % (auto) 0.0 PT INR aPTT Heparin Protocol Sodium 137 Potassium 4.5 Chloride 109 H Carbon Dioxide 18 L Anion Gap 15 BUN 59 H Creatinine 3.00 H Estim Creat Clear Calc 17.9 Estimated GFR 16 POC Glucose 75 Random Glucose 107 Lactic Acid Lactic Acid F/U @ 2Hr Calcium 7.8 L D Magnesium Total Bilirubin Direct Bilirubin AST ALT Alkaline Phosphatase Troponin I High Sens C-Reactive Protein 1.62 H Total Protein Albumin Lipase Urine Color Urine Appearance Urine pH Ur Specific [place] Urine Protein Urine Glucose (UA) Urine Ketones Urine Blood Urine Nitrite Ur Leukocyte Esterase Urine RBC Urine WBC Ur Squamous Epith Cells Urine Bacteria Urine Mucus Urine Yeast COVID-19 (KENJI) COVID-19 Clin Com Influenza Type A (LAWSON) Influenza Type B (LAWSON) Influenza A & B Note 05/05/22 05/05/22 05/05/22 10:39 12:02 12:37 WBC RBC Hgb Hct MCV MCH MCHC RDW Plt Count MPV Immature Gran % (Auto) Neut % (Auto) Lymph % (Auto) [place] % (Auto) Eos % (Auto) Baso % (Auto) Lymph # (Auto) [place] # (Auto) Eos # (Auto) Baso # (Auto) Abs Immat Gran (auto) Absolute Neuts (auto) Absolute Nucleated RBC Nucleated RBC % (auto) PT 11.6 INR 1.0 aPTT Heparin Protocol 24.5 L D Sodium Potassium Chloride Carbon Dioxide Anion Gap BUN Creatinine Estim Creat Clear Calc Estimated GFR POC Glucose 80 Random Glucose Lactic Acid Lactic Acid F/U @ 2Hr Calcium Magnesium Total Bilirubin Direct Bilirubin AST ALT Alkaline Phosphatase Troponin I High Sens 6890.0 H* D C-Reactive Protein Total Protein Albumin Lipase Urine Color Urine Appearance Urine pH Ur Specific [place] Urine Protein Urine Glucose (UA) Urine Ketones Urine Blood Urine Nitrite Ur Leukocyte Esterase Urine RBC Urine WBC Ur Squamous Epith Cells Urine Bacteria Urine Mucus Urine Yeast COVID-19 (KENJI) COVID-19 Clin Com Influenza Type A (LAWSON) Influenza Type B (LAWSON) Influenza A & B Note Assessment and Plan (1) NSTEMI (non-ST elevated myocardial infarction): Status: Acute (2) Acute kidney injury superimposed on CKD: Status: Acute Plan Pleasant 62-year-old female who is here for follow-up. She has multiple complex issues including known coronary artery disease with previous bypass surgery. She also has advanced kidney disease. She is presenting with diarrhea and and is being treated for C diff colitis. Kidney injury is likely due to dehydration secondary to diarrhea. She is getting hydrated. She has mild JVD but has no symptoms currently. I think fluid should be cautiously used in her. On this admission she clearly has abnormal troponins and they are higher than before. She is also complaining of some pressure-like feeling in her chest. I am increasing her metoprolol to 25 mg twice a day. Continue nitropaste. Adding Plavix 100 mg followed by 75 mg. Agree with heparin drip currently. We will review the echocardiogram to see if there is any wall motion abnormalities. The challenge is obviously her kidney disease and risk of kidney injury when she is just recovering from acute kidney injury is higher. In any case if she does not settle medical management then we may have to consider cardiac catheterization. I have explained this to the patient that currently because of acute kidney injury I would rather be conservative with medications only and see if she improves. If she has a significant wall motion abnormality or cardiomyopathy on echocardiography which is new then we may have to consider transferring her to [facility] for potential catheterization. Thank you for allowing me to participate in the care of your patient. Please feel free to contact me if you have any questions. Procedures Date of Service Date of Service: 05/05/22
[2022-05-05] MEDS: Heparin Sodium,Porcine 5,000 UNIT/ML VIAL 4000 UNIT IVPUSH (13:03)
[2022-05-05] MEDS: Heparin Sodium,Porcine/1/2NS 25,000 UNIT/250 ML IV.SOLN 9.72 UNIT IVCONT (13:04)
--- NOTE | 2022-05-05 14:25 | P.PNIM_ITS ---
Subjective Subjective Date of Service: 05/05/22 Interval History: C/o dull chest pressure EKG- ventricular paced rhythm 12 beats VT this AM without symptoms No further diarrhea or abd pain Review of Systems Review of Systems: Yes all other systems are reviewed and are negative Physical Exam Vital Signs: Vital Signs: Last Vital Signs Temp 97.7 F 05/05/22 11:57 Pulse 65 05/05/22 11:57 Resp 18 05/05/22 07:39 BP 132/51 L 05/05/22 11:57 Pulse Ox 100 05/05/22 11:57 O2 Del Method 05/05/22 11:57 BMI result Body Mass Index 32.6 Gen: NAD HEENT: sclera anicteric, moist mucosa Neck: supple Lungs: clear to auscultation bilaterally Heart: regular rate and rhythm, no murmurs Abd: soft, diffuse tenderness without rebound/guarding Ext: no edema Skin: warm/well-perfused Neuro: alert and oriented x3, no focal findings Psych: appropriate affect Objective Data Active Medications Acetaminophen (Acetaminophen 325 Mg Tablet) 650 mg PO Q6H PRN PRN Reason: Pain, Mild (Pain Scale 1-3) Last Admin: 05/04/22 22:19 Dose: 650 mg Documented By: TOMMY Aspirin (Aspirin Enteric Coated 81 Mg Tablet.) 81 mg PO DAILY [facility] Last Admin: 05/05/22 08:39 Dose: 81 mg Documented By: DIPESH Atorvastatin Calcium (Atorvastatin Calcium 80 Mg Tablet) 80 mg PO BEDTIME [facility] Last Admin: 05/04/22 22:19 Dose: 80 mg Documented By: TOMMY Clopidogrel Bisulfate (Clopidogrel Bisulfate 75 Mg Tablet) 75 mg PO DAILY [facility] Dextrose (Dextrose 50 % 25 Gm/50 Ml Syringe) 25 gm IVPUSH Q15M PRN; Protocol PRN Reason: per Hypoglycemia Standing Ord. Ferrous Sulfate (Ferrous Sulfate 324 Mg Tablet.) 324 mg PO DAILY [facility] Last Admin: 05/05/22 08:38 Dose: 324 mg Documented By: DIPESH Fidaxomicin (Fidaxomicin 200 Mg Tablet) 200 mg PO Q12H [facility] Last Admin: 05/05/22 08:39 Dose: 200 mg Documented By: DIPESH Gabapentin (Gabapentin 100 Mg Capsule) 100 mg PO TID [facility] Last Admin: 05/05/22 08:38 Dose: 100 mg Documented By: DIPESH Glucose (Glucose Gel 15 Gm Gel..Gram.) 15 gm PO Q15M PRN; Protocol PRN Reason: per Hypoglycemia Standing Ord. Heparin Sodium (Porcine) (Heparin Sodium,Porcine 5,000 Unit/Ml Vial) 3,200 unit 40 unit/kg (3200 unit) IVPUSH PROTOCOL BOLUS PRN; Protocol PRN Reason: 40 unit/kg - Heparin Protocol Heparin Sodium (Porcine) (Heparin Sodium,Porcine 5,000 Unit/Ml Vial) 6,500 unit 80 unit/kg (6500 unit) IVPUSH PROTOCOL BOLUS PRN; Protocol PRN Reason: 80 unit/kg - Heparin Protocol Sodium Chloride (Ns) 1,000 mls @ 100 mls/hr IVCONT .Q10H [facility] Last Admin: 05/05/22 12:03 Dose: 100 mls/hr Documented By: DIPESH Heparin Sodium/Sodium Chloride () 25,000 unit in 250 mls @ 0 mls/hr IVCONT .Q0M [facility]; Protocol Last Admin: 05/05/22 13:04 Dose: 12 units/kg/hr, 9.72 mls/hr Documented By: GOYO Co-signed By: DIPESH Insulin Human Lispro (Insulin Lispro 100 Unit/Ml 3 Ml Vial) 0 unit SUBCUT QIDACHS [facility]; Protocol Last Admin: 05/05/22 13:42 Dose: Not Given Documented By: DIPESH Non-Admin Reason: No Insulin Coverage Lorazepam (Lorazepam 0.5 Mg Tablet) 0.5 mg PO BID PRN PRN Reason: Anxiety Melatonin (Melatonin 3 Mg Tablet) 6 mg PO BEDTIME PRN PRN Reason: Sleep Metoclopramide HCl (Metoclopramide Hcl 5 Mg Tablet) 5 mg PO TIDWM [facility] Last Admin: 05/05/22 12:30 Dose: 5 mg Documented By: GOYO Metoprolol Succinate (Metoprolol Succinate Er 25 Mg Tab.Er.24h) 25 mg PO DAILY [facility]; Protocol Last Admin: 05/05/22 08:38 Dose: 25 mg Documented By: DIPESH Nitroglycerin (Nitroglycerin 0.4 Mg Tab.Subl) 0.4 mg SUBLINGUAL Q5M PRN PRN Reason: Chest Pain Omeprazole (Omeprazole 20 Mg Capsule.Dr) 20 mg PO DAILY@0630 [facility] Last Admin: 05/05/22 06:27 Dose: 20 mg Documented By: KWESI Ondansetron HCl (Ondansetron Hcl 4 Mg/2 Ml Vial) 4 mg IVPUSH Q8H PRN PRN Reason: Nausea and Vomiting Tamsulosin HCl (Tamsulosin Hcl 0.4 Mg Capsule) 0.4 mg PO DAILY@1700 [facility] Last Admin: 05/04/22 16:49 Dose: 0.4 mg Documented By: ANDRE Trazodone HCl (Trazodone Hcl 25 Mg Halftab) 25 mg PO BEDTIME PRN PRN Reason: Sleep Last Admin: 05/04/22 22:19 Dose: 25 mg Documented By: TOMMY Vitamin D (Cholecalciferol (Vitamin D3) 25 Mcg Tablet) 25 mcg PO DAILY [facility] Last Admin: 05/05/22 08:38 Dose: 25 mcg Documented By: DIPESH Labs CBC & Chem 7: 05/05/22 04:19 05/05/22 04:19 Labs: Laboratory Results - last 24 hr 05/04/22 05/04/22 05/04/22 16:54 17:56 17:56 MCV 98.7 H MCH 30.8 MCHC 31.2 RDW 14.6 Plt Count 257 D MPV 10.9 Immature Gran % (Auto) 0.4 Neut % (Auto) 75.7 H Lymph % (Auto) 14.9 L Martin % (Auto) 7.9 Eos % (Auto) 0.7 Baso % (Auto) 0.4 Lymph # (Auto) 1.7 Martin # (Auto) 0.9 Eos # (Auto) 0.1 Baso # (Auto) 0.0 Abs Immat Gran (auto) 0.05 H Absolute Neuts (auto) 8.4 H Absolute Nucleated RBC 0.000 Nucleated RBC % (auto) 0.0 PT INR aPTT Heparin Protocol Anion Gap Estim Creat Clear Calc Estimated GFR POC Glucose 108 Random Glucose Lactic Acid F/U @ 2Hr 0.9 Calcium Troponin I High Sens C-Reactive Protein Urine Color Urine Appearance Urine pH Ur Specific [place] Urine Protein Urine Glucose (UA) Urine Ketones Urine Blood Urine Nitrite Ur Leukocyte Esterase Urine RBC Urine WBC Ur Squamous Epith Cells Urine Bacteria Urine Mucus Urine Yeast 05/04/22 05/05/22 05/05/22 22:11 00:01 04:19 MCV 96.3 MCH 30.6 MCHC 31.8 RDW 14.6 Plt Count 247 MPV 10.8 Immature Gran % (Auto) Neut % (Auto) Lymph % (Auto) Martin % (Auto) Eos % (Auto) Baso % (Auto) Lymph # (Auto) Martin # (Auto) Eos # (Auto) Baso # (Auto) Abs Immat Gran (auto) Absolute Neuts (auto) Absolute Nucleated RBC 0.000 Nucleated RBC % (auto) 0.0 PT INR aPTT Heparin Protocol Anion Gap Estim Creat Clear Calc Estimated GFR POC Glucose 66 Random Glucose Lactic Acid F/U @ 2Hr Calcium Troponin I High Sens C-Reactive Protein Urine Color YELLOW Urine Appearance CLEAR Urine pH 5.5 Ur Specific [place] 1.020 Urine Protein TRACE Urine Glucose (UA) NEG Urine Ketones NEG Urine Blood 1+ H Urine Nitrite NEG Ur Leukocyte Esterase NEG Urine RBC 0-2 Urine WBC 1-4 Ur Squamous Epith Cells 2+ Urine Bacteria 1+ Urine Mucus 1+ Urine Yeast TRACE 05/05/22 05/05/22 05/05/22 04:19 07:28 10:39 MCV MCH MCHC RDW Plt Count MPV Immature Gran % (Auto) Neut % (Auto) Lymph % (Auto) Martin % (Auto) Eos % (Auto) Baso % (Auto) Lymph # (Auto) Martin # (Auto) Eos # (Auto) Baso # (Auto) Abs Immat Gran (auto) Absolute Neuts (auto) Absolute Nucleated RBC Nucleated RBC % (auto) PT INR aPTT Heparin Protocol Anion Gap 15 Estim Creat Clear Calc 17.9 Estimated GFR 16 POC Glucose 75 Random Glucose 107 Lactic Acid F/U @ 2Hr Calcium 7.8 L D Troponin I High Sens 6890.0 H* D C-Reactive Protein 1.62 H Urine Color Urine Appearance Urine pH Ur Specific [place] Urine Protein Urine Glucose (UA) Urine Ketones Urine Blood Urine Nitrite Ur Leukocyte Esterase Urine RBC Urine WBC Ur Squamous Epith Cells Urine Bacteria Urine Mucus Urine Yeast 05/05/22 05/05/22 12:02 12:37 MCV MCH MCHC RDW Plt Count MPV Immature Gran % (Auto) Neut % (Auto) Lymph % (Auto) Martin % (Auto) Eos % (Auto) Baso % (Auto) Lymph # (Auto) Martin # (Auto) Eos # (Auto) Baso # (Auto) Abs Immat Gran (auto) Absolute Neuts (auto) Absolute Nucleated RBC Nucleated RBC % (auto) PT 11.6 INR 1.0 aPTT Heparin Protocol 24.5 L D Anion Gap Estim Creat Clear Calc Estimated GFR POC Glucose 80 Random Glucose Lactic Acid F/U @ 2Hr Calcium Troponin I High Sens C-Reactive Protein Urine Color Urine Appearance Urine pH Ur Specific [place] Urine Protein Urine Glucose (UA) Urine Ketones Urine Blood Urine Nitrite Ur Leukocyte Esterase Urine RBC Urine WBC Ur Squamous Epith Cells Urine Bacteria Urine Mucus Urine Yeast Assessment and Plan (1) NSTEMI (non-ST elevated myocardial infarction): Status: Acute Plan hospital d#2 62?yo F with HTN, HLD, DM + gastroparesis, prior CVA, CHF, PPM, COPD, osteoporosis, CKD3?with recent admission for E. coli UTI causing sepsis, presenting with explosive diarrhea and found to be in ISA, now with NSTEMI # NSTEMI - Cardiology consulted. IV heparin infusion, clopidogrel load/maintenance, ASA, NTG paste, repeat Tn-I pending. cardiac cath relatively risky due to renal insufficiency. # ISA/CKD3 - SCr improving, continue IV fluid hydration with caution for volume overload, hold lisinopril, monitor BMP # diarrhea - highly suspect C. difficile which would be severe by virtue of SCr >1.5.? treat empirically with fidoxamicin pending C. difficile PCR results # lactic acidosis - likely due to dehydration, not septic # hyperK - resolved p 1 dose SZC + holding lisinopril # DM2 - hold long-acting insulin, give correction-dose lispro, check A1c # CAD # HLD # prior CVA - continue statin, ASA, metoprolol succinate # chronic HFpEF - hold furosemide as likely prerenal - continue metoprolol succinate # gastroparesis - metoclopramide # neuropathy - gabapentin- reduced dose for renal insufficiency # VTE ppx - UFH In my clinical judgment, the patient requires continued hospitalization for the following reasons: NSTEMI requiring heparinization, ISA requiring iV fluids Quality Stroke Does the patient have a stroke diagnosis?: No VTE Prior VTE?: No VTE Risk Level:: Medical - moderate - high VTE Device Contraindication: N/A - Device Ordered VTE Drug Contraindication: N/A - Med Ordered
--- NOTE | 2022-05-05 14:50 | P.CNID_ITS ---
History of Present Illness Data of Consult Service Date: 05/05/22 Requesting physician: Yung Hernandez Primary Care Provider: Unknown Physician HPI Reason for consult: diarrhea,acute renal failure She presents to hospital with eight hours diarrhea as well as nausea. She has acute renal failure. She has no diarrhea now and feels better. She has no CT abdomen. She has no Cdiff sent since no diarrhea. She was hospitalized 04/18-04/22 for E coli UTI/sepsis and finished course Cefuroxime yesterday. She is not around anyone ill. Review of Systems Review of Systems: Yes all other systems are reviewed and are negative [facility] Past Medical History Medical History Acute heart failure with preserved ejection fraction Anemia CHF (congestive heart failure) Diabetic gastroparesis Fall Gastroparesis Headache Heart failure with preserved ejection fraction HTN (hypertension) Nausea and vomiting Orthostasis T2DM (type 2 diabetes mellitus) Family History Family History Father No problems noted. Mother Diabetes Hypercholesteremia Hypertension Stroke Family history: reviewed and not pertinent Surgical History Surgical History H/O Achilles tendon repair History of appendectomy History of bladder surgery History of carpal tunnel release History of total hysterectomy with bilateral salpingo-oophorectomy (BSO) Hx of cholecystectomy Hx of endoscopy Hx of knee surgery Hx of tonsillectomy Social History Social History Household Members: Family Household Members Other:: 1 Housing: Apartment Do you presently have visiting nurse or other home services: Yes Alcohol intake: unknown Patient Tobacco Use Status: Former Tobacco user Years Smoked: 20 Second Hand Smoke Exposure: No Advance Directives: Yes Advance Directives on File: Yes Advance Directives Date on File: 01/13/22 Patient : No service: No Current occupational status: disabled Meds Allergies Allergy/AdvReac Type Severity Reaction Status Date / Time tetracycline [Tetracycline] Allergy Mild HIVES, Verified 05/04/22 13:14 anaphylaxis, anaphylaxis Active Medications: Current Medications Acetaminophen (Acetaminophen 325 Mg Tablet) 650 mg PO Q6H PRN PRN Reason: Pain, Mild (Pain Scale 1-3) Last Admin: 05/04/22 22:19 Dose: 650 mg Aspirin (Aspirin Enteric Coated 81 Mg Tablet.) 81 mg PO DAILY [facility] Last Admin: 05/05/22 08:39 Dose: 81 mg Atorvastatin Calcium (Atorvastatin Calcium 80 Mg Tablet) 80 mg PO BEDTIME [facility] Last Admin: 05/04/22 22:19 Dose: 80 mg Clopidogrel Bisulfate (Clopidogrel Bisulfate 75 Mg Tablet) 75 mg PO DAILY [facility] Dextrose (Dextrose 50 % 25 Gm/50 Ml Syringe) 25 gm IVPUSH Q15M PRN; Protocol PRN Reason: per Hypoglycemia Standing Ord. Ferrous Sulfate (Ferrous Sulfate 324 Mg Tablet.) 324 mg PO DAILY [facility] Last Admin: 05/05/22 08:38 Dose: 324 mg Fidaxomicin (Fidaxomicin 200 Mg Tablet) 200 mg PO Q12H [facility] Last Admin: 05/05/22 08:39 Dose: 200 mg Gabapentin (Gabapentin 100 Mg Capsule) 100 mg PO TID [facility] Last Admin: 05/05/22 08:38 Dose: 100 mg Glucose (Glucose Gel 15 Gm Gel..Gram.) 15 gm PO Q15M PRN; Protocol PRN Reason: per Hypoglycemia Standing Ord. Heparin Sodium (Porcine) (Heparin Sodium,Porcine 5,000 Unit/Ml Vial) 3,200 unit 40 unit/kg (3200 unit) IVPUSH PROTOCOL BOLUS PRN; Protocol PRN Reason: 40 unit/kg - Heparin Protocol Heparin Sodium (Porcine) (Heparin Sodium,Porcine 5,000 Unit/Ml Vial) 6,500 unit 80 unit/kg (6500 unit) IVPUSH PROTOCOL BOLUS PRN; Protocol PRN Reason: 80 unit/kg - Heparin Protocol Sodium Chloride (Ns) 1,000 mls @ 100 mls/hr IVCONT .Q10H [facility] Last Admin: 05/05/22 12:03 Dose: 100 mls/hr Heparin Sodium/Sodium Chloride () 25,000 unit in 250 mls @ 0 mls/hr IVCONT .Q0M [facility]; Protocol Last Admin: 05/05/22 13:04 Dose: 12 units/kg/hr, 9.72 mls/hr Insulin Human Lispro (Insulin Lispro 100 Unit/Ml 3 Ml Vial) 0 unit SUBCUT QIDACHS [facility]; Protocol Last Admin: 05/05/22 13:42 Dose: Not Given Lorazepam (Lorazepam 0.5 Mg Tablet) 0.5 mg PO BID PRN PRN Reason: Anxiety Melatonin (Melatonin 3 Mg Tablet) 6 mg PO BEDTIME PRN PRN Reason: Sleep Metoclopramide HCl (Metoclopramide Hcl 5 Mg Tablet) 5 mg PO TIDWM [facility] Last Admin: 05/05/22 12:30 Dose: 5 mg Metoprolol Succinate (Metoprolol Succinate Er 25 Mg Tab.Er.24h) 25 mg PO BIDWM [facility]; Protocol Nitroglycerin (Nitroglycerin 0.4 Mg Tab.Subl) 0.4 mg SUBLINGUAL Q5M PRN PRN Reason: Chest Pain Omeprazole (Omeprazole 20 Mg Capsule.Dr) 20 mg PO DAILY@0630 [facility] Last Admin: 05/05/22 06:27 Dose: 20 mg Ondansetron HCl (Ondansetron Hcl 4 Mg/2 Ml Vial) 4 mg IVPUSH Q8H PRN PRN Reason: Nausea and Vomiting Tamsulosin HCl (Tamsulosin Hcl 0.4 Mg Capsule) 0.4 mg PO DAILY@1700 [facility] Last Admin: 05/04/22 16:49 Dose: 0.4 mg Trazodone HCl (Trazodone Hcl 25 Mg Halftab) 25 mg PO BEDTIME PRN PRN Reason: Sleep Last Admin: 05/04/22 22:19 Dose: 25 mg Vitamin D (Cholecalciferol (Vitamin D3) 25 Mcg Tablet) 25 mcg PO DAILY [facility] Last Admin: 05/05/22 08:38 Dose: 25 mcg Home Medications Medication Instructions Recorded Confirmed Last Taken Type lorazepam 0.5 mg tablet 0.5 mg PO BID PRN Anxiety 09/14/20 05/04/22 03/22/22 History allopurinol 100 mg tablet 100 mg PO DAILY 09/16/20 05/04/22 05/04/22 History aspirin 81 mg tablet,delayed 81 mg PO DAILY 09/16/20 05/04/22 05/04/22 History release ferrous sulfate 325 mg (65 mg 325 mg PO DAILY 12/22/20 05/04/22 05/04/22 History iron) tablet (iron) tamsulosin 0.4 mg capsule 0.4 mg PO DAILY@1700 12/22/20 05/04/22 05/03/22 History melatonin 5 mg tablet 5 mg PO BEDTIME PRN Sleep 02/17/21 06/13/22 05/24/22 History nitroglycerin 0.4 mg sublingual 0.4 mg sublingual Q5M PRN Chest 01/08/21 05/04/22 03/22/22 History tablet Pain gabapentin 100 mg capsule 200 mg PO TID 03/06/21 05/04/22 05/04/22 History metoclopramide HCl 5 mg tablet 5 mg PO TIDWM 03/20/21 05/04/22 05/04/22 History pantoprazole 40 mg tablet,delayed 1 tab PO DAILY 01/10/22 05/04/22 05/04/22 History release trazodone 50 mg tablet 0.5 tab PO BEDTIME PRN Sleep 01/10/22 05/04/22 04/17/22 History atorvastatin 80 mg tablet 80 mg PO BEDTIME 01/21/22 05/04/22 05/03/22 History linagliptin 5 mg tablet (Tradjenta) 5 mg PO DAILY 01/21/22 05/04/22 05/04/22 History metoprolol succinate 25 mg 1 tab PO DAILY 02/19/22 05/04/22 05/04/22 History tablet,extended release 24 hr acetaminophen 500 mg tablet 1 tab PO Q6H PRN Pain 03/23/22 05/04/22 03/22/22 History cholecalciferol (vitamin D3) 25 1 cap PO DAILY 03/23/22 05/04/22 05/04/22 History mcg (1,000 unit) capsule insulin aspart U-100 100 unit/mL See Protocol subcut TIDAC 04/15/22 05/04/22 05/04/22 History (3 mL) subcutaneous pen (Novolog Flexpen U-100 Insulin aspart) loperamide 2 mg capsule 2 mg PO DAILY PRN Diarrhea 04/15/22 05/04/22 Unknown History furosemide 40 mg tablet 40 mg PO DAILY 04/18/22 05/04/22 05/04/22 History insulin degludec 100 unit/mL (3 32 unit subcut DAILY 05/04/22 05/04/22 05/04/22 History mL) subcutaneous pen (Tresiba FlexTouch U-100 insulin) sodium zirconium cyclosilicate 5 5 g PO Q2D 05/04/22 05/04/22 05/04/22 History gram oral powder packet (Lokelma) Physical Exam Vital Signs: Vital Signs: Last Vital Signs Temp 97.7 F 05/05/22 11:57 Pulse 65 05/05/22 11:57 Resp 18 05/05/22 07:39 BP 132/51 L 05/05/22 11:57 Pulse Ox 100 05/05/22 11:57 O2 Del Method 05/05/22 11:57 BMI result Body Mass Index 32.6 Const: General: cooperative HEENT: Head: Yes normal to inspection Mouth: Normal oral and palatal mucosa present Resp: Effort & Inspection: normal respiratory effort Cardio: Rate: regular rate Rhythm: regular rhythm GI: Palpation (GI): Soft to palpation and nontender Extrem: General: Yes normal to inspection Results Labs CBC & Chem 7: 05/05/22 04:19 05/05/22 04:19 Labs: Short CBC 05/04/22 05/05/22 Range/Units 17:56 04:19 WBC 11.1 H 8.5 (4.8-10.8) X10*3/uL Hgb 9.8 L 9.1 L (12.0-16.0) g/dl Hct 31.4 L 28.6 L (37.0-47.0) % Plt Count 257 D 247 (160-400) X10*3/uL BMP 05/05/22 04:19 Sodium 137 Potassium 4.5 Chloride 109 H Carbon Dioxide 18 L BUN 59 H Creatinine 3.00 H Calcium 7.8 L D Urine 05/05/22 Range/Units 00:01 Urine Color YELLOW Urine Appearance CLEAR Urine pH 5.5 (5.0-8.0) Ur Specific [place] 1.020 (1.005-1.025) Urine Protein TRACE (NEG-TRACE) MG/DL Urine Glucose (UA) NEG (NEG) MG/DL Assessment and Plan (1) Acute kidney injury superimposed on CKD: Status: Acute (2) Diarrhea: Status: Acute possible viral gastroenteritis with dehydration or bowel ischemia or antibiotic associated colitis Cdiff is in differential and causes acute renal failure but should still usually have diarrhea There is no sample in lab and patient says her only complaint is chest pain (3) Chest pain: Status: Acute (4) NSTEMI (non-ST elevated myocardial infarction): Status: Acute Plan Hold fidaxomicin for now Restart if Cdiff found
[2022-05-05] MEDS: Clopidogrel Bisulfate 300 MG TABLET PO (15:12)
[2022-05-05 16:29] VITALS: BP 98/42; PULSE 72; RESP 16; TEMP 36.3; O2SAT 97
[2022-05-05] MEDS: Tamsulosin HCL 0.4 MG CAPSULE PO (17:50)
[2022-05-05 18:02] LABS: Glucose, Whole Blood 124 mg/dL (60-115)
[2022-05-05 19:19] LABS: PTT Heparin Drip 77.3 SEC (53-77.9)
--- NOTE | 2022-05-05 19:33 | PC.NURSE ---
ptt 77.3, no change in drip, repeat ptt 0133 am, awaiting RN to verify no change
[2022-05-05 20:35] VITALS: PULSE 63; RESP 14; TEMP 37.2; O2SAT 97
[2022-05-05 21:44] LABS: Glucose, Whole Blood 133 mg/dL (60-115)
[2022-05-05] MEDS: Atorvastatin Calcium 80 MG TABLET PO (21:56)
--- NOTE | 2022-05-05 22:16 | PC.NURSE ---
patient a&ox3, radiographer cardiac catheterization nsr 70s, heparin drip running at 12, ivf running per order, denies pain or discomfort, call richard within reach, will continue to monitor.
--- NOTE | 2022-05-05 23:11 | PC.NURSE ---
attempted to call report, floor nurse will call overflow when ready
[2022-05-06] VITALS (7 sets, daily range): BP systolic 123–140; BP diastolic 51–79; PULSE 66–85; RESP 14–20; TEMP 36.2–36.9; O2SAT 93–100
--- NOTE | 2022-05-06 | CA_ITS ---
Acquisition Time: 2022-05-07 09:53:05 Total Exercise Time: 00:02:00 Test Indications: Chest Pain Medications: SEE EMAR Protocol: LEXISCAN Max HR: 087 BPM 55% of Pred: 156 BPM Max BP: 152/078 mmHG Max Work Load: 1.0 METS Pharmacological stress test with Lexiscan injection, while laying supine and moving feet, without anginal symptoms, with brief atrial tachycardia episode prior to injections and in recovery, with normotensive response to injection, with nondiagnostic EKG for ischemia. Nuclear images pending. Test reviewed with Dr Diza. Referred By: Efren Diaz Overread By: AKBAR MOORE
[2022-05-06 02:12] LABS: PTT Heparin Drip 105.4 SEC (53-77.9)
[2022-05-06] MEDS: ondansetron HCL 4 MG/2 ML VIAL IVPUSH (02:24)
[2022-05-06] MEDS: 0.9 % Sodium Chloride 1,000 ML 100 ML IVCONT (03:37)
[2022-05-06] MEDS: Omeprazole 20 MG CAPSULE.DR PO (06:12)
[2022-05-06 06:49] LABS: Hematocrit 28.1 % (37.0-47.0); Mean Corpuscular Hemoglobin 30.8 pg (27.0-33.0); Mean Corpuscular Volume 96.2 fL (80.0-98.0); Mean Platelet Volume 10.7 fL (9.4-12.3); Platelet Count 219 X10*3/uL (160-400); Red Blood Count 2.92 X10*6/uL (4.20-5.50); Red Cell Distribution Width 14.6 % (11.0-16.0); White Blood Count 5.8 X10*3/uL (4.8-10.8)
[2022-05-06 06:59] LABS: Estimated Average Glucose 163 mg/dL; Hemoglobin A1c % 7.3 %
[2022-05-06 07:18] LABS: Prothrombin Time 11.9 SEC (9.9-13.0)
[2022-05-06 07:26] LABS: Anion Gap 9 (12-20); Blood Urea Nitrogen 37 mg/dL (9-16); Calcium 7.9 mg/dL (8.4-10.2); Carbon Dioxide 22 mmol/L (22-29); Chloride 115 mmol/L (96-108); Creatinine Clr Calc Pharmacy 29.6; Estimated Glomerular Filt Rate 27; Glucose Random 121 mg/dL (60-115); Potassium 4.9 mmol/L (3.3-5.1); Sodium 141 mmol/L (135-145)
[2022-05-06] MEDS: Clopidogrel Bisulfate 75 MG TABLET PO (08:12)
[2022-05-06] MEDS: Ferrous Sulfate 324 MG TABLET.DR PO (08:12)
[2022-05-06] MEDS: Metoprolol Succinate ER 25 MG TAB.ER.24H PO ×2 (08:12→17:31)
[2022-05-06] MEDS: Cholecalciferol (Vitamin D3) 25 MCG TABLET PO (08:12)
[2022-05-06] MEDS: Aspirin Enteric Coated 81 MG TABLET.DR PO (08:12)
[2022-05-06] MEDS: Gabapentin 100 MG CAPSULE PO ×3 (08:12→20:43)
[2022-05-06] MEDS: Metoclopramide HCl 5 MG TABLET PO ×3 (08:12→17:31)
[2022-05-06 08:44] LABS: Glucose, Whole Blood 125 mg/dL (60-115)
[2022-05-06] MEDS: LORazepam 0.5 MG TABLET PO ×2 (09:36→20:52)
[2022-05-06] MEDS: Nitroglycerin 2 % Oint 1 GM Packet 1 INCH TRANSDERMA (09:36)
[2022-05-06 09:53] LABS: PTT Heparin Drip 77.5 SEC (53-77.9)
--- NOTE | 2022-05-06 11:21 | MHC.CM.PN ---
Per ROUNDS discussion, Patient is receiving Heparin and may be transferred to [facility] for cardiac cath and therefor not yet medically cleared for dc. Home/resume services is the goal and CM will follow for possible need to adjust the dc plan.
[2022-05-06 11:33] LABS: Glucose, Whole Blood 146 mg/dL (60-115)
--- NOTE | 2022-05-06 11:44 | PM.PNCARD ---
Subjective Subjective Date of Service: 05/06/22 <ARMANDO Childers - Last Filed: 05/06/22 12:09> 05/06/22 <Efren Diaz MD - Last Filed: 05/06/22 20:34> Principal diagnosis: NSTEMI, ISA <ARMANDO Childers - Last Filed: 05/06/22 12:09> Interval history: Seen at 1030. Today she reports feeling better overall. Denies having loose stools this am. Slept well. Did have some chest pressure at rest this am which resolved when nitro paste applied. No recurrent CP. No sob, palpitation, dizziness, edema. Tele showing SR, short atrial tach runs, occ PVC, 60-70s. Cr improved to 1.89. Has IV fluid and heparin drip infusing. <ARMANDO Childers - Last Filed: 05/06/22 12:09> Review of Systems Review of Systems as above <ARMANDO Childers - Last Filed: 05/06/22 12:09> Yes all other systems are reviewed and are negative <ARMANDO Childers - Last Filed: 05/06/22 12:09> Physical Exam Vital Signs: Last Vital Signs Temp 98.2 F 05/06/22 08:00 Pulse 67 05/06/22 08:00 Resp 20 05/06/22 08:00 BP 135/61 05/06/22 08:00 Pulse Ox 100 05/06/22 08:00 O2 Del Method 05/06/22 08:00 O2 Flow Rate 3 05/06/22 08:00 BMI result Body Mass Index 32.6 <ARMANDO Childers - Last Filed: 05/06/22 12:09> Const General: cooperative, no acute distress, alert and awake <ARMANDO Childers Last Filed: 05/06/22 12:09> Neck Neck: Yes normal visual inspection and Yes no JVD <ARMANDO Childers Last Filed: 05/06/22 12:09> Resp Effort & Inspection: normal respiratory effort and able to speak in complete sentences <ARMANDO Childers - Last Filed: 05/06/22 12:09> Auscultation: clear to auscultation bilaterally, no rales, no rhonchi and no wheezes <Edel SullivanNEETAC - Last Filed: 05/06/22 12:09> Cardio Rate: regular rate <Edel SullivanNEETAC - Last Filed: 05/06/22 12:09> Rhythm: regular rhythm <Edel SullivanGEOFFTkC - Last Filed: 05/06/22 12:09> Heart sounds: S1 normal heart sound present and S2 normal heart sound present <Edel SullivanNEETAC - Last Filed: 05/06/22 12:09> GI Inspection: Yes normal to inspection <Edel SullivanGEOFFTkC - Last Filed: 05/06/22 12:09> Extrem General: Yes normal to inspection and No edema <Edel SullivanGEOFFTkC - Last Filed: 05/06/22 12:09> Objective Labs and Meds Result diagrams: : 05/06/22 06:26 05/06/22 06:26 <Edel SullivanNEETAC - Last Filed: 05/06/22 12:09> Lab results: Laboratory Results - last 24 hr 05/05/22 05/05/22 05/05/22 12:02 12:37 13:24 WBC RBC Hgb Hct MCV MCH MCHC RDW Plt Count MPV Absolute Nucleated RBC Nucleated RBC % (auto) PT 11.6 INR 1.0 aPTT Heparin Protocol 24.5 L D Sodium Potassium Chloride Carbon Dioxide Anion Gap BUN Creatinine Estim Creat Clear Calc Estimated GFR POC Glucose 80 Random Glucose Estimat Average Glucose Hemoglobin A1c % Calcium Troponin I High Sens 6930.5 H* 05/05/22 05/05/22 05/05/22 17:53 18:59 21:41 WBC RBC Hgb Hct MCV MCH MCHC RDW Plt Count MPV Absolute Nucleated RBC Nucleated RBC % (auto) PT INR aPTT Heparin Protocol 77.3 D Sodium Potassium Chloride Carbon Dioxide Anion Gap BUN Creatinine Estim Creat Clear Calc Estimated GFR POC Glucose 124 H 133 H Random Glucose Estimat Average Glucose Hemoglobin A1c % Calcium Troponin I High Sens 05/06/22 05/06/22 05/06/22 01:57 06:26 06:26 WBC 5.8 RBC 2.92 L Hgb 9.0 L Hct 28.1 L MCV 96.2 MCH 30.8 MCHC 32.0 RDW 14.6 Plt Count 219 MPV 10.7 Absolute Nucleated RBC 0.000 Nucleated RBC % (auto) 0.0 PT INR aPTT Heparin Protocol 105.4 H D Sodium 141 Potassium 4.9 Chloride 115 H Carbon Dioxide 22 Anion Gap 9 L BUN 37 H Creatinine 1.89 H Estim Creat Clear Calc 29.6 Estimated GFR 27 POC Glucose Random Glucose 121 H Estimat Average Glucose Hemoglobin A1c % Calcium 7.9 L Troponin I High Sens 05/06/22 05/06/22 05/06/22 06:26 06:26 06:26 WBC RBC Hgb Hct MCV MCH MCHC RDW Plt Count MPV Absolute Nucleated RBC Nucleated RBC % (auto) PT 11.9 INR 1.0 aPTT Heparin Protocol Sodium Potassium Chloride Carbon Dioxide Anion Gap BUN Creatinine Estim Creat Clear Calc Estimated GFR POC Glucose Random Glucose Estimat Average Glucose 163 Hemoglobin A1c % 7.3 Calcium Troponin I High Sens 3982.2 H* 05/06/22 05/06/22 05/06/22 07:25 09:38 11:25 WBC RBC Hgb Hct MCV MCH MCHC RDW Plt Count MPV Absolute Nucleated RBC Nucleated RBC % (auto) PT INR aPTT Heparin Protocol 77.5 D Sodium Potassium Chloride Carbon Dioxide Anion Gap BUN Creatinine Estim Creat Clear Calc Estimated GFR POC Glucose 125 H 146 H Random Glucose Estimat Average Glucose Hemoglobin A1c % Calcium Troponin I High Sens <ARMANDO Childers - Last Filed: 05/06/22 12:09> Progress Note: A&P Assessment and plan (1) NSTEMI (non-ST elevated myocardial infarction): Status: Acute <ARMANDO Childers - Last Filed: 05/06/22 12:09> Assessment and Plan: Report of chest pressure on admit. EKG without acute changes. Troponin elevated at 6890, then 6930. Echo showed EF 55-60%, no regional WMA. Cr elevated at 3.58 on admit. Not able to perform cath due to ISA. Known hx of CAD with prior CABG. She is being managed medically with Heparin drip per protocol, for at least 48 hr. She was loaded with plavix and started on daily dose. She was started on Nitropaste, and continued on Metoprolol, aspirin and high dose atorvastatin. She does report having some chest pressure this am that was relieved with NTP. No discomfort at the time of my visit. Continue current med management. We will follow. <ARMANDO Childers - Last Filed: 05/06/22 12:09> (2) Acute kidney injury superimposed on CKD: Status: Acute <ARMANDO Childers - Last Filed: 05/06/22 12:09> Assessment and Plan: Hx of CKD. Cr elevated at 3.58 on admit. Dehydrated in setting of diarrhea, Cdiff. Rehydrated with IV fluid. Cdiff managed by hospitalist. She reports no diarrhea today. Continues on IV Fluids. Cr improved to 1.89. <ARMANDO Childers - Last Filed: 05/06/22 12:09> (3) Coronary artery disease: Status: Acute <ARMANDO Childers - Last Filed: 05/06/22 12:09> (4) Hx of CABG: Status: Acute <ARMANDO Childers - Last Filed: 05/06/22 12:09> (5) Cardiac pacemaker in situ: Status: Acute <ARMANDO Childers - Last Filed: 05/06/22 12:09> Assessment and Plan: Followed by our outpt office. No need for interrogation at this time. <ARMANDO Childers - Last Filed: 05/06/22 12:09> Assessment and Plan: Patient seen examined at bedside. She does not have any chest discomfort. No significant change in biomarker. Echocardiography has shown no wall motion abnormality. She is status post bypass. She had PRADO to LAD and vein graft to OM. Right coronary artery did not have significant disease and it appears it was not bypassed. I discussed with her about options for ischemic evaluation. Given significant kidney injury recently I think we be careful and start with a Lexiscan. If the stress imaging shows a large area of ischemia then we can potentially proceed with cardiac catheterization. She has no wall motion abnormality on echocardiography which is somewhat reassuring. NPO after MN for Lexiscan tomorrow. <Efren Diaz MD - Last Filed: 05/06/22 20:34> Time Spent With Patient Time: Total time spent is greater than 50% in coordination of care (as documented) at patient's floor/unit and/or counseling patient: 24 <ARMANDO Childers - Last Filed: 05/06/22 12:09> Progress Note: Quality Stroke Does the patient have a stroke diagnosis?: No <ARMANDO Childers - Last Filed: 05/06/22 12:09> Procedures Date of Service Date of Service: 05/06/22 <ARMANDO Childers - Last Filed: 05/06/22 12:09>
[2022-05-06] MEDS: Heparin Sodium,Porcine/1/2NS 25,000 UNIT/250 ML IV.SOLN 7.29 UNIT IVCONT (14:33)
--- NOTE | 2022-05-06 14:56 | HO.PM.IMPN ---
Subjective Subjective Date of Service: 05/06/22 Interval History: chest pressure improved no further diarrhea Review of Systems Review of Systems: Yes all other systems are reviewed and are negative Physical Exam Vital Signs: Vital Signs: Last Vital Signs Temp 97.2 F 05/06/22 12:00 Pulse 68 05/06/22 12:00 Resp 20 05/06/22 12:00 BP 140/69 H 05/06/22 12:00 Pulse Ox 93 05/06/22 14:09 O2 Del Method 05/06/22 14:09 O2 Flow Rate 3 05/06/22 12:00 BMI result Body Mass Index 32.6 Gen: NAD HEENT: sclera anicteric, moist mucosa Neck: supple Lungs: clear to auscultation bilaterally Heart: regular rate and rhythm, no murmurs Abd: soft, nontender, nondistended Ext: no edema Skin: warm/well-perfused Neuro: alert and oriented x3, no focal findings Psych: appropriate affect Objective Data Active Medications Acetaminophen (Acetaminophen 325 Mg Tablet) 650 mg PO Q6H PRN PRN Reason: Pain, Mild (Pain Scale 1-3) Last Admin: 05/04/22 22:19 Dose: 650 mg Documented By: DELFINA-ANICL Aspirin (Aspirin Enteric Coated 81 Mg Tablet.) 81 mg PO DAILY [facility] Last Admin: 05/06/22 08:12 Dose: 81 mg Documented By: ALEJANDRA Atorvastatin Calcium (Atorvastatin Calcium 80 Mg Tablet) 80 mg PO BEDTIME [facility] Last Admin: 05/05/22 21:56 Dose: 80 mg Documented By: GOYO Clopidogrel Bisulfate (Clopidogrel Bisulfate 75 Mg Tablet) 75 mg PO DAILY [facility] Last Admin: 05/06/22 08:12 Dose: 75 mg Documented By: ALEJANDRA Dextrose (Dextrose 50 % 25 Gm/50 Ml Syringe) 25 gm IVPUSH Q15M PRN; Protocol PRN Reason: per Hypoglycemia Standing Ord. Ferrous Sulfate (Ferrous Sulfate 324 Mg Tablet.) 324 mg PO DAILY [facility] Last Admin: 05/06/22 08:12 Dose: 324 mg Documented By: ALEJANDRA Gabapentin (Gabapentin 100 Mg Capsule) 100 mg PO TID [facility] Last Admin: 05/06/22 14:33 Dose: 100 mg Documented By: ALEJANDRA Glucose (Glucose Gel 15 Gm Gel..Gram.) 15 gm PO Q15M PRN; Protocol PRN Reason: per Hypoglycemia Standing Ord. Heparin Sodium (Porcine) (Heparin Sodium,Porcine 5,000 Unit/Ml Vial) 3,200 unit 40 unit/kg (3200 unit) IVPUSH PROTOCOL BOLUS PRN; Protocol PRN Reason: 40 unit/kg - Heparin Protocol Heparin Sodium (Porcine) (Heparin Sodium,Porcine 5,000 Unit/Ml Vial) 6,500 unit 80 unit/kg (6500 unit) IVPUSH PROTOCOL BOLUS PRN; Protocol PRN Reason: 80 unit/kg - Heparin Protocol Sodium Chloride (Ns) 1,000 mls @ 50 mls/hr IVCONT .Q20H [facility] Last Infusion: 05/06/22 14:36 Dose: 50 mls/hr Documented By: ALEJANDRA Heparin Sodium/Sodium Chloride () 25,000 unit in 250 mls @ 0 mls/hr IVCONT .Q0M [facility]; Protocol Last Admin: 05/06/22 14:33 Dose: 9 units/kg/hr, 7.29 mls/hr Documented By: ALEJANDRA Co-signed By: HELLEN Insulin Human Lispro (Insulin Lispro 100 Unit/Ml 3 Ml Vial) 0 unit SUBCUT QIDACHS [facility]; Protocol Last Admin: 05/06/22 11:58 Dose: Not Given Documented By: ALEJANDRA Non-Admin Reason: No Insulin Coverage Lorazepam (Lorazepam 0.5 Mg Tablet) 0.5 mg PO BID PRN PRN Reason: Anxiety Last Admin: 05/06/22 09:36 Dose: 0.5 mg Documented By: ALEJANDRA Melatonin (Melatonin 3 Mg Tablet) 6 mg PO BEDTIME PRN PRN Reason: Sleep Metoclopramide HCl (Metoclopramide Hcl 5 Mg Tablet) 5 mg PO TIDWM [facility] Last Admin: 05/06/22 11:58 Dose: 5 mg Documented By: ALEJANDRA Metoprolol Succinate (Metoprolol Succinate Er 25 Mg Tab.Er.24h) 25 mg PO BIDWM [facility]; Protocol Last Admin: 05/06/22 08:12 Dose: 25 mg Documented By: ALEJANDRA Nitroglycerin (Nitroglycerin 0.4 Mg Tab.Subl) 0.4 mg SUBLINGUAL Q5M PRN PRN Reason: Chest Pain Omeprazole (Omeprazole 20 Mg Capsule.Dr) 20 mg PO DAILY@0630 [facility] Last Admin: 05/06/22 06:12 Dose: 20 mg Documented By: MIREILLE Ondansetron HCl (Ondansetron Hcl 4 Mg/2 Ml Vial) 4 mg IVPUSH Q8H PRN PRN Reason: Nausea and Vomiting Last Admin: 05/06/22 02:24 Dose: 4 mg Documented By: MIREILLE Tamsulosin HCl (Tamsulosin Hcl 0.4 Mg Capsule) 0.4 mg PO DAILY@1700 [facility] Last Admin: 05/05/22 17:50 Dose: 0.4 mg Documented By: DIPESH Trazodone HCl (Trazodone Hcl 25 Mg Halftab) 25 mg PO BEDTIME PRN PRN Reason: Sleep Last Admin: 05/04/22 22:19 Dose: 25 mg Documented By: DELFINA-HALIEICL Vitamin D (Cholecalciferol (Vitamin D3) 25 Mcg Tablet) 25 mcg PO DAILY [facility] Last Admin: 05/06/22 08:12 Dose: 25 mcg Documented By: ALEJANDRA Labs CBC & Chem 7: 05/06/22 06:26 05/06/22 06:26 Labs: Laboratory Results - last 24 hr 05/05/22 05/05/22 05/05/22 17:53 18:59 21:41 MCV MCH MCHC RDW Plt Count MPV Absolute Nucleated RBC Nucleated RBC % (auto) PT INR aPTT Heparin Protocol 77.3 D Anion Gap Estim Creat Clear Calc Estimated GFR POC Glucose 124 H 133 H Random Glucose Estimat Average Glucose Hemoglobin A1c % Calcium Troponin I High Sens 05/06/22 05/06/22 05/06/22 01:57 06:26 06:26 MCV 96.2 MCH 30.8 MCHC 32.0 RDW 14.6 Plt Count 219 MPV 10.7 Absolute Nucleated RBC 0.000 Nucleated RBC % (auto) 0.0 PT INR aPTT Heparin Protocol 105.4 H D Anion Gap 9 L Estim Creat Clear Calc 29.6 Estimated GFR 27 POC Glucose Random Glucose 121 H Estimat Average Glucose Hemoglobin A1c % Calcium 7.9 L Troponin I High Sens 05/06/22 05/06/22 05/06/22 06:26 06:26 06:26 MCV MCH MCHC RDW Plt Count MPV Absolute Nucleated RBC Nucleated RBC % (auto) PT 11.9 INR 1.0 aPTT Heparin Protocol Anion Gap Estim Creat Clear Calc Estimated GFR POC Glucose Random Glucose Estimat Average Glucose 163 Hemoglobin A1c % 7.3 Calcium Troponin I High Sens 3982.2 H* 05/06/22 05/06/22 05/06/22 07:25 09:38 11:25 MCV MCH MCHC RDW Plt Count MPV Absolute Nucleated RBC Nucleated RBC % (auto) PT INR aPTT Heparin Protocol 77.5 D Anion Gap Estim Creat Clear Calc Estimated GFR POC Glucose 125 H 146 H Random Glucose Estimat Average Glucose Hemoglobin A1c % Calcium Troponin I High Sens TTE 05/05/22 - Normal left ventricular size and systolic function. There is ? severely increased left ventricular wall thickness.? The visually estimated ejection fraction is between 55-60%. ? - E/E prime ratio is >15, consistent with elevated filling ? ? ? pressures. ? - Normal right ventricular cavity size and systolic function.? ? Microbiology Microbiology Results: Microbiology 05/04/22 14:15 Blood Culture - Preliminary Blood - Venous No growth after 24 hours. 05/04/22 13:42 Blood Culture - Preliminary Blood - Venous No growth after 24 hours. Assessment and Plan (1) NSTEMI (non-ST elevated myocardial infarction): Status: Acute Plan hospital d#3 62?yo F with HTN, HLD, DM + gastroparesis, prior CVA, CHF, PPM, COPD, osteoporosis, CKD3?with recent admission for E. coli UTI causing sepsis, presenting with explosive diarrhea and found to be in ISA, now with NSTEMI # NSTEMI - Cardiology following, on d#2 of IV heparin infusion, loaded clopidogrel and now on maintenance, ASA, NTG paste, metoprolol succinate, holding off on cardiac cath due to renal insufficiency. # ISA/CKD3 - SCr improving, continue IV fluid hydration with caution for volume overload, hold lisinopril, monitor BMP # diarrhea, antibiotic-associated - suspected C. difficile which would be severe by virtue of SCr >1.5, treated empirically with fidoxamicin. ID consulted- stop fidoxacimin and monitor and send stool if diarrhea recurs. # lactic acidosis - likely due to dehydration, not septic; resolved # hyperK - resolved p 1 dose SZC + holding lisinopril # DM2 - hold long-acting insulin, give correction-dose lispro, A1c 7.3 # CAD # HLD # prior CVA - continue statin, ASA, metoprolol succinate # chronic HFpEF - hold furosemide as likely prerenal - continue metoprolol succinate # gastroparesis - metoclopramide # neuropathy - gabapentin- reduced dose for renal insufficiency # VTE ppx - UFH In my clinical judgment, the patient requires continued hospitalization for the following reasons: NSTEMI requiring heparinization, ISA requiring iV fluids Quality Stroke Does the patient have a stroke diagnosis?: No VTE Prior VTE?: No VTE Risk Level:: Medical - moderate - high VTE Device Contraindication: N/A - Device Ordered VTE Drug Contraindication: N/A - Med Ordered
[2022-05-06 16:12] LABS: PTT Heparin Drip 69.7 SEC (53-77.9)
[2022-05-06 17:07] LABS: Glucose, Whole Blood 167 mg/dL (60-115)
[2022-05-06] MEDS: Tamsulosin HCL 0.4 MG CAPSULE PO (17:31)
[2022-05-06] MEDS: Insulin Lispro 100 UNIT/ML 3 ML VIAL SUBCUT ×2 (17:31→20:43)
[2022-05-06 20:42] LABS: Glucose, Whole Blood 219 mg/dL (60-115)
[2022-05-06] MEDS: Atorvastatin Calcium 80 MG TABLET PO (20:43)
[2022-05-06] MEDS: traZODone HCL 25 MG HALFTAB PO (20:52)
[2022-05-06] MEDS: Melatonin 3 MG TABLET 6 MG PO (20:52)
[2022-05-07] VITALS: BP 175/70; PULSE 66; RESP 18; TEMP 35.6; O2SAT 99
[2022-05-07 03:37] VITALS: BP 140/56; PULSE 101; RESP 18; TEMP 36.4; O2SAT 97
[2022-05-07] MEDS: ondansetron HCL 4 MG/2 ML VIAL IVPUSH ×2 (03:46→13:33)
[2022-05-07 07:07] LABS: Glucose, Whole Blood 179 mg/dL (60-115)
[2022-05-07 07:14] LABS: Hematocrit 31.1 % (37.0-47.0); Hemoglobin 9.9 g/dl (12.0-16.0); Mean Corpuscular HGB Conc 31.8 g/dl (31.0-35.0); Mean Corpuscular Hemoglobin 30.5 pg (27.0-33.0); Mean Corpuscular Volume 95.7 fL (80.0-98.0); Mean Platelet Volume 10.6 fL (9.4-12.3); Platelet Count 211 X10*3/uL (160-400); Red Blood Count 3.25 X10*6/uL (4.20-5.50); Red Cell Distribution Width 14.6 % (11.0-16.0); White Blood Count 6.5 X10*3/uL (4.8-10.8)
[2022-05-07 07:36] VITALS: BP 170/80; PULSE 63; RESP 17; TEMP 36.5; O2SAT 100
[2022-05-07 07:46] LABS: Anion Gap 12 (12-20); Blood Urea Nitrogen 27 mg/dL (9-16); Calcium 8.9 mg/dL (8.4-10.2); Carbon Dioxide 20 mmol/L (22-29); Chloride 111 mmol/L (96-108); Creatinine Clr Calc Pharmacy 33.7; Estimated Glomerular Filt Rate 31; Glucose Random 210 mg/dL (60-115); Potassium 5.4 mmol/L (3.3-5.1); Sodium 138 mmol/L (135-145)
[2022-05-07] MEDS: Cholecalciferol (Vitamin D3) 25 MCG TABLET PO (07:58)
[2022-05-07] MEDS: Clopidogrel Bisulfate 75 MG TABLET PO (07:58)
[2022-05-07] MEDS: Ferrous Sulfate 324 MG TABLET.DR PO (07:58)
[2022-05-07] MEDS: Metoclopramide HCl 5 MG TABLET PO ×3 (07:58→16:53)
[2022-05-07] MEDS: Gabapentin 100 MG CAPSULE PO ×3 (07:58→19:58)
[2022-05-07] MEDS: Aspirin Enteric Coated 81 MG TABLET.DR PO (07:59)
[2022-05-07] MEDS: Metoprolol Succinate ER 25 MG TAB.ER.24H PO ×2 (07:59→16:53)
[2022-05-07 11:02] LABS: PTT Heparin Drip 55.2 SEC (53-77.9)
[2022-05-07 11:51] VITALS: BP 172/65; PULSE 75; RESP 18; TEMP 36.6; O2SAT 97
[2022-05-07 11:53] LABS: Glucose, Whole Blood 180 mg/dL (60-115)
[2022-05-07] MEDS: Insulin Lispro 100 UNIT/ML 3 ML VIAL SUBCUT ×3 (12:13→19:58)
--- NOTE | 2022-05-07 12:43 | PM.PNCARD ---
Subjective Subjective Date of Service: 05/07/22 Principal diagnosis: NSTEMI, ISA Interval history: Seen at 1030. Today she reports no recurrent CP, last episode early yest am. No sob, palpitation, dizziness, edema. No longer having loose stools. Having stress portion of nuclear stress test today. Has IV heparin infusing Review of Systems Review of Systems as above Yes all other systems are reviewed and are negative Physical Exam Vital Signs: Last Vital Signs Temp 97.8 F 05/07/22 11:51 Pulse 75 05/07/22 11:51 Resp 18 05/07/22 11:51 BP 172/65 H 05/07/22 11:51 Pulse Ox 97 05/07/22 11:51 O2 Del Method 05/07/22 11:51 O2 Flow Rate 3 05/06/22 12:00 BMI result Body Mass Index 32.6 Const General: cooperative, no acute distress, alert and awake Neck Neck: Yes normal visual inspection and Yes no JVD Resp Effort & Inspection: normal respiratory effort, able to speak in complete sentences and not labored Auscultation: clear to auscultation bilaterally, no crackles, no rales, no rhonchi and no wheezes Cardio Rate: regular rate Rhythm: regular rhythm Heart sounds: S1 normal heart sound present and S2 normal heart sound present GI Inspection: Yes normal to inspection Extrem General: Yes normal to inspection and No edema Objective Labs and Meds Result diagrams: 05/07/22 06:59 05/07/22 06:59 Lab results: Laboratory Results - last 24 hr 05/06/22 05/06/22 05/06/22 15:48 17:02 20:39 WBC RBC Hgb Hct MCV MCH MCHC RDW Plt Count MPV Absolute Nucleated RBC Nucleated RBC % (auto) aPTT Heparin Protocol 69.7 Sodium Potassium Chloride Carbon Dioxide Anion Gap BUN Creatinine Estim Creat Clear Calc Estimated GFR POC Glucose 167 H 219 H Random Glucose Calcium 05/07/22 05/07/22 05/07/22 06:59 06:59 07:04 WBC 6.5 RBC 3.25 L Hgb 9.9 L Hct 31.1 L MCV 95.7 MCH 30.5 MCHC 31.8 RDW 14.6 Plt Count 211 MPV 10.6 Absolute Nucleated RBC 0.000 Nucleated RBC % (auto) 0.0 aPTT Heparin Protocol Sodium 138 Potassium 5.4 H Chloride 111 H Carbon Dioxide 20 L Anion Gap 12 BUN 27 H Creatinine 1.66 H Estim Creat Clear Calc 33.7 Estimated GFR 31 POC Glucose 179 H Random Glucose 210 H Calcium 8.9 D 05/07/22 05/07/22 10:38 11:49 WBC RBC Hgb Hct MCV MCH MCHC RDW Plt Count MPV Absolute Nucleated RBC Nucleated RBC % (auto) aPTT Heparin Protocol 55.2 D Sodium Potassium Chloride Carbon Dioxide Anion Gap BUN Creatinine Estim Creat Clear Calc Estimated GFR POC Glucose 180 H Random Glucose Calcium Progress Note: A&P Assessment and plan (1) NSTEMI (non-ST elevated myocardial infarction): Status: Acute Assessment and Plan: Report of chest pressure on admit. EKG without acute changes. Troponin elevated at 6890, then 6930. Echo showed EF 55-60%, no regional WMA. Cr elevated at 3.58 on admit. Not able to perform cath at that time due to ISA. Known hx of CAD with prior CABG with PRADO to LAD and vein graft to OM. Her NSTEMI is currently being managed medically with Heparin drip per protocol, for at least 48 hr. She was loaded with plavix and started on daily dose. She was continued on Metoprolol, aspirin and high dose atorvastatin. She does report having some chest pressure yesterday am, none since then. A pharmacological nuclear stress test is being done on her to evaluate for ischemia. If there is a large area of ischemia, she would need cardiac cath. Cr has improved down to 1.66. Continue current meds. We will follow. (2) Acute kidney injury superimposed on CKD: Status: Acute Assessment and Plan: Hx of CKD. Cr elevated at 3.58 on admit. Dehydrated in setting of diarrhea, Cdiff. Rehydrated with IV fluid. Cdiff managed by hospitalist. She reports no diarrhea today. Cr improved to 1.66. (3) Coronary artery disease: Status: Acute (4) Hx of CABG: Status: Acute (5) Cardiac pacemaker in situ: Status: Acute Assessment and Plan: Followed by our outpt office. No need for interrogation at this time. Time Spent With Patient Time: Total time spent is greater than 50% in coordination of care (as documented) at patient's floor/unit and/or counseling patient: 20 Progress Note: Quality Stroke Does the patient have a stroke diagnosis?: No Procedures Date of Service Date of Service: 05/07/22
--- NOTE | 2022-05-07 13:29 | P.PNIM_ITS ---
Subjective Subjective Date of Service: 05/07/22 Interval History: Seen and examined this morning No chest pain, no further diarrhea, no abdominal pain Plan for stress test today Review of Systems Review of Systems: Yes all other systems are reviewed and are negative Constitutional Constitutional: Denies chills and Denies fever(s) Cardiovascular Cardiovascular: Denies chest pain and Denies dyspnea Respiratory Respiratory: Denies dyspnea Gastrointestinal Gastrointestinal: Denies abdominal pain Physical Exam Vital Signs: Vital Signs: Last Vital Signs Temp 97.8 F 05/07/22 11:51 Pulse 75 05/07/22 11:51 Resp 18 05/07/22 11:51 BP 172/65 H 05/07/22 11:51 Pulse Ox 97 05/07/22 11:51 O2 Del Method 05/07/22 11:51 O2 Flow Rate 3 05/06/22 12:00 BMI result Body Mass Index 32.6 Const: General: cooperative, comfortable, no acute distress, alert and awake Nutritional Appearance: overweight Orientation/consciousness: patient oriented x3 Resp: Effort & Inspection: normal respiratory effort and able to speak in complete sentences Cardio: Rate: regular rate Heart sounds: S1 normal heart sound present and S2 normal heart sound present GI: Palpation (GI): Soft to palpation and nontender Neuro: Other: Grossly nonfocal General: patient oriented x3 Extrem: Other: Moving extremities spontaneously Objective Data Active Medications Acetaminophen (Acetaminophen 325 Mg Tablet) 650 mg PO Q6H PRN PRN Reason: Pain, Mild (Pain Scale 1-3) Last Admin: 05/04/22 22:19 Dose: 650 mg Documented By: DELFINA-ANICL Aspirin (Aspirin Enteric Coated 81 Mg Tablet.) 81 mg PO DAILY [facility] Last Admin: 05/07/22 07:59 Dose: 81 mg Documented By: VAMSI Atorvastatin Calcium (Atorvastatin Calcium 80 Mg Tablet) 80 mg PO BEDTIME [facility] Last Admin: 05/06/22 20:43 Dose: 80 mg Documented By: TORI Clopidogrel Bisulfate (Clopidogrel Bisulfate 75 Mg Tablet) 75 mg PO DAILY [facility] Last Admin: 05/07/22 07:58 Dose: 75 mg Documented By: VAMSI Dextrose (Dextrose 50 % 25 Gm/50 Ml Syringe) 25 gm IVPUSH Q15M PRN; Protocol PRN Reason: per Hypoglycemia Standing Ord. Ferrous Sulfate (Ferrous Sulfate 324 Mg Tablet.) 324 mg PO DAILY [facility] Last Admin: 05/07/22 07:58 Dose: 324 mg Documented By: VAMSI Gabapentin (Gabapentin 100 Mg Capsule) 100 mg PO TID [facility] Last Admin: 05/07/22 07:58 Dose: 100 mg Documented By: VAMSI Glucose (Glucose Gel 15 Gm Gel..Gram.) 15 gm PO Q15M PRN; Protocol PRN Reason: per Hypoglycemia Standing Ord. Heparin Sodium (Porcine) (Heparin Sodium,Porcine 5,000 Unit/Ml Vial) 3,200 unit 40 unit/kg (3200 unit) IVPUSH PROTOCOL BOLUS PRN; Protocol PRN Reason: 40 unit/kg - Heparin Protocol Heparin Sodium (Porcine) (Heparin Sodium,Porcine 5,000 Unit/Ml Vial) 6,500 unit 80 unit/kg (6500 unit) IVPUSH PROTOCOL BOLUS PRN; Protocol PRN Reason: 80 unit/kg - Heparin Protocol Heparin Sodium/Sodium Chloride () 25,000 unit in 250 mls @ 0 mls/hr IVCONT .Q0M [facility]; Protocol Last Titration: 05/06/22 17:05 Dose: 9 units/kg/hr, 7.29 mls/hr Documented By: KASHIF Co-signed By: HELLEN Insulin Human Lispro (Insulin Lispro 100 Unit/Ml 3 Ml Vial) 0 unit SUBCUT QIDACHS [facility]; Protocol Last Admin: 05/07/22 12:13 Dose: 2 unit Documented By: VAMSI Lorazepam (Lorazepam 0.5 Mg Tablet) 0.5 mg PO BID PRN PRN Reason: Anxiety Last Admin: 05/06/22 20:52 Dose: 0.5 mg Documented By: TORI Melatonin (Melatonin 3 Mg Tablet) 6 mg PO BEDTIME PRN PRN Reason: Sleep Last Admin: 05/06/22 20:52 Dose: 6 mg Documented By: TORI Metoclopramide HCl (Metoclopramide Hcl 5 Mg Tablet) 5 mg PO TIDWM [facility] Last Admin: 05/07/22 12:13 Dose: 5 mg Documented By: VAMSI Metoprolol Succinate (Metoprolol Succinate Er 25 Mg Tab.Er.24h) 25 mg PO BIDWM [facility]; Protocol Last Admin: 05/07/22 07:59 Dose: 25 mg Documented By: VAMIS Nitroglycerin (Nitroglycerin 0.4 Mg Tab.Subl) 0.4 mg SUBLINGUAL Q5M PRN PRN Reason: Chest Pain Omeprazole (Omeprazole 20 Mg Capsule.Dr) 20 mg PO DAILY@0630 [facility] Last Admin: 05/07/22 05:47 Dose: Not Given Documented By: TORI Non-Admin Reason: NPO Ondansetron HCl (Ondansetron Hcl 4 Mg/2 Ml Vial) 4 mg IVPUSH Q8H PRN PRN Reason: Nausea and Vomiting Last Admin: 05/07/22 03:46 Dose: 4 mg Documented By: TORI Tamsulosin HCl (Tamsulosin Hcl 0.4 Mg Capsule) 0.4 mg PO DAILY@1700 [facility] Last Admin: 05/06/22 17:31 Dose: 0.4 mg Documented By: KASHIF Trazodone HCl (Trazodone Hcl 25 Mg Halftab) 25 mg PO BEDTIME PRN PRN Reason: Sleep Last Admin: 05/06/22 20:52 Dose: 25 mg Documented By: TORI Vitamin D (Cholecalciferol (Vitamin D3) 25 Mcg Tablet) 25 mcg PO DAILY [facility] Last Admin: 05/07/22 07:58 Dose: 25 mcg Documented By: VAMSI Labs CBC & Chem 7: 05/07/22 06:59 05/07/22 06:59 Labs: Laboratory Results - last 24 hr 05/06/22 05/06/22 05/06/22 15:48 17:02 20:39 MCV MCH MCHC RDW Plt Count MPV Absolute Nucleated RBC Nucleated RBC % (auto) aPTT Heparin Protocol 69.7 Anion Gap Estim Creat Clear Calc Estimated GFR POC Glucose 167 H 219 H Random Glucose Calcium 05/07/22 05/07/22 05/07/22 06:59 06:59 07:04 MCV 95.7 MCH 30.5 MCHC 31.8 RDW 14.6 Plt Count 211 MPV 10.6 Absolute Nucleated RBC 0.000 Nucleated RBC % (auto) 0.0 aPTT Heparin Protocol Anion Gap 12 Estim Creat Clear Calc 33.7 Estimated GFR 31 POC Glucose 179 H Random Glucose 210 H Calcium 8.9 D 05/07/22 05/07/22 10:38 11:49 MCV MCH MCHC RDW Plt Count MPV Absolute Nucleated RBC Nucleated RBC % (auto) aPTT Heparin Protocol 55.2 D Anion Gap Estim Creat Clear Calc Estimated GFR POC Glucose 180 H Random Glucose Calcium Microbiology Microbiology Results: Microbiology 05/04/22 14:15 Blood Culture - Preliminary Blood - Venous No growth after 48 hours. 05/04/22 13:42 Blood Culture - Preliminary Blood - Venous No growth after 48 hours. Assessment and Plan (1) NSTEMI (non-ST elevated myocardial infarction): Status: Acute Plan hospital d#3 62?yo F with HTN, HLD, DM + gastroparesis, prior CVA, CHF, PPM, COPD, osteoporosis, CKD3?with recent admission for E. coli UTI causing sepsis, presenting with explosive diarrhea and found to be in ISA, now with NSTEMI # NSTEMI - Cardiology following, on d#2 of IV heparin infusion, loaded clopidogrel and now on maintenance, ASA, NTG paste, metoprolol succinate, holding off on cardiac cath due to renal insufficiency. -plan for stress test today # ISA/CKD3 - SCr improving, hold lisinopril, monitor BMP # diarrhea, antibiotic-associated - suspected C. difficile which would be severe by virtue of SCr >1.5, treated empirically with fidoxamicin. ID consulted- stop fidoxacimin and monitor and send stool if diarrhea recurs. C diff pending # lactic acidosis - likely due to dehydration, not septic; resolved # hyperK Potassium 5.4, repeat this afternoon - holding lisinopril # DM2 - hold long-acting insulin, give correction-dose lispro, A1c 7.3 # CAD # HLD # prior CVA - continue statin, ASA, metoprolol succinate # chronic HFpEF - hold furosemide as likely prerenal - continue metoprolol succinate # gastroparesis - metoclopramide # neuropathy - gabapentin- reduced dose for renal insufficiency # VTE ppx - UFH Attending-Dr. Coelho In my clinical judgment, the patient requires continued hospitalization for the following reasons: NSTEMI requiring heparinization, ISA requiring iV fluids Quality Stroke Does the patient have a stroke diagnosis?: No VTE Prior VTE?: No VTE Risk Level:: Medical - moderate - high VTE Device Contraindication: N/A - Device Ordered VTE Drug Contraindication: N/A - Med Ordered
[2022-05-07 13:33] LABS: Glucose, Whole Blood 147 mg/dL (60-115)
[2022-05-07] MEDS: Heparin Sodium,Porcine/1/2NS 25,000 UNIT/250 ML IV.SOLN 7.29 UNIT IVCONT (14:42)
[2022-05-07 15:25] LABS: Potassium 5.4 mmol/L (3.3-5.1)
[2022-05-07] MEDS: Sodium Zirconium Cyclosilicate 5 GM POWD.PACK PO (15:55)
[2022-05-07 16:00] VITALS: BP 116/50; PULSE 67; RESP 14; TEMP 37.2; O2SAT 97
[2022-05-07 16:37] LABS: Glucose, Whole Blood 223 mg/dL (60-115)
[2022-05-07] MEDS: Tamsulosin HCL 0.4 MG CAPSULE PO (16:53)
[2022-05-07] MEDS: LORazepam 0.5 MG TABLET PO (17:50)
--- NOTE | 2022-05-07 17:53 | PC.NURSE ---
PATIENT RANG THE CALLBELL AND TOLD THE COIN MACHINE MECHANIC SHE WAS FEELING ANXIOUS. THIS RN BEDSIDE TO ASSESS. PATIENT SHAKING (STATES SHE IS COLD - WARM BLANKET PROVIDED BY COIN MACHINE MECHANIC) AND FEELING ANXIOUS. VITALS OBTAINED AND DOCUMENTED BY COIN MACHINE MECHANIC. PRN ATIVAN ADMINISTERED - EFFECTIVENESS PENDING AT THIS TIME.
[2022-05-07] MEDS: Atorvastatin Calcium 80 MG TABLET PO (19:58)
[2022-05-07 20:00] VITALS: BP 119/53; PULSE 74; RESP 14; TEMP 37; O2SAT 94
[2022-05-07 20:29] LABS: Glucose, Whole Blood 241 mg/dL (60-115)
[2022-05-08] VITALS: BP 159/65; PULSE 76; RESP 15; TEMP 36.3; O2SAT 97
[2022-05-08] MEDS: LORazepam 0.5 MG TABLET PO (01:40)
[2022-05-08 04:00] VITALS: BP 170/86; PULSE 87; RESP 15; TEMP 36.9; O2SAT 96
[2022-05-08 06:41] LABS: Hematocrit 31.4 % (37.0-47.0); Mean Corpuscular HGB Conc 31.8 g/dl (31.0-35.0); Mean Corpuscular Hemoglobin 30.2 pg (27.0-33.0); Mean Corpuscular Volume 94.9 fL (80.0-98.0); Mean Platelet Volume 11.4 fL (9.4-12.3); Platelet Count 173 X10*3/uL (160-400); Red Blood Count 3.31 X10*6/uL (4.20-5.50); Red Cell Distribution Width 14.4 % (11.0-16.0); White Blood Count 7.2 X10*3/uL (4.8-10.8)
[2022-05-08 06:57] LABS: PTT Heparin Drip 25.4 SEC (53-77.9)
[2022-05-08 07:12] LABS: Glucose, Whole Blood 209 mg/dL (60-115)
[2022-05-08] MEDS: Heparin Sodium,Porcine 5,000 UNIT/ML VIAL 6500 UNIT IVPUSH (07:19)
[2022-05-08 07:54] VITALS: BP 160/72; PULSE 71; RESP 20; TEMP 36.7; O2SAT 95
[2022-05-08 11:06] LABS: Anion Gap 14 (12-20); Blood Urea Nitrogen 24 mg/dL (9-16); Calcium 9.6 mg/dL (8.4-10.2); Carbon Dioxide 23 mmol/L (22-29); Chloride 107 mmol/L (96-108); Creatinine Clr Calc Pharmacy 31.3; Estimated Glomerular Filt Rate 29; Glucose Random 227 mg/dL (60-115); Potassium 5.6 mmol/L (3.3-5.1); Sodium 138 mmol/L (135-145)
[2022-05-08 11:30] LABS: Glucose, Whole Blood 199 mg/dL (60-115)
--- NOTE | 2022-05-08 11:38 | PM.PNCARD ---
Subjective Subjective Date of Service: 05/08/22 <ARMANDO Childers - Last Filed: 05/08/22 11:54> 05/08/22 <Efren Diaz MD - Last Filed: 05/08/22 14:16> Principal diagnosis: NSTEMI, ISA <ARMANDO Childers - Last Filed: 05/08/22 11:54> Interval history: Seen at 1100. Today she reports feeling well. She has shoulder muscle soreness but no CP like she had on admit or 2 days ago. No sob, palpitation, dizziness. No diarrhea. Does not ambulate. Hepearin drip still infusion. NPO this am. Had rest images for nuclear stress test completed. BP elevated, 160/72. <ARMANDO Childers - Last Filed: 05/08/22 11:54> Review of Systems Review of Systems as above <ARMANDO Childers - Last Filed: 05/08/22 11:54> Yes all other systems are reviewed and are negative <ARMANDO Childers - Last Filed: 05/08/22 11:54> Physical Exam Vital Signs: Last Vital Signs Temp 98.0 F 05/08/22 07:54 Pulse 71 05/08/22 07:54 Resp 20 05/08/22 07:54 BP 160/72 H 05/08/22 07:54 Pulse Ox 95 05/08/22 07:54 O2 Del Method 05/08/22 07:54 O2 Flow Rate 3 05/06/22 12:00 BMI result Body Mass Index 32.6 <ARMANDO Childers - Last Filed: 05/08/22 11:54> Const General: cooperative, no acute distress, alert and awake <ARMANDO Childers - Last Filed: 05/08/22 11:54> Orientation/consciousness: patient oriented x3 <ARMANDO Childers Last Filed: 05/08/22 11:54> Neck Neck: Yes normal visual inspection and Yes no JVD <ARMANDO Childers - Last Filed: 05/08/22 11:54> Resp Effort & Inspection: normal respiratory effort, able to speak in complete sentences and not labored <NEETA ChildersC - Last Filed: 05/08/22 11:54> Auscultation: clear to auscultation bilaterally, no crackles, no rales, no rhonchi and no wheezes <Edel Sullivan NPC - Last Filed: 05/08/22 11:54> Cardio Palpation: normal PMI <NEETA Childers - Last Filed: 05/08/22 11:54> Rate: regular rate <Edel Sullivan NP - Last Filed: 05/08/22 11:54> Rhythm: regular rhythm <Edel Sullivan NP - Last Filed: 05/08/22 11:54> Heart sounds: S1 normal heart sound present and S2 normal heart sound present <Edel Sullivan NP - Last Filed: 05/08/22 11:54> Peripheral pulses: Peripheral pulses 2+ throughout <Edel Sullivan NP - Last Filed: 05/08/22 11:54> GI Inspection: Yes normal to inspection <Edel Sullivan NP - Last Filed: 05/08/22 11:54> Neuro General: patient oriented x3 <NEETA Childers - Last Filed: 05/08/22 11:54> Extrem General: Yes normal to inspection and No edema <Edel Sullivan NP - Last Filed: 05/08/22 11:54> Objective Labs and Meds Result diagrams: : 05/08/22 06:32 05/08/22 10:25 <Edel Sullivan NP - Last Filed: 05/08/22 11:54> Lab results: Laboratory Results - last 24 hr 05/07/22 05/07/22 05/07/22 11:49 13:28 13:53 WBC RBC Hgb Hct MCV MCH MCHC RDW Plt Count MPV Absolute Nucleated RBC Nucleated RBC % (auto) aPTT Heparin Protocol Sodium Potassium 5.4 H Chloride Carbon Dioxide Anion Gap BUN Creatinine Estim Creat Clear Calc Estimated GFR POC Glucose 180 H 147 H Random Glucose Calcium 05/07/22 05/07/22 05/08/22 16:19 19:52 06:32 WBC RBC Hgb Hct MCV MCH MCHC RDW Plt Count MPV Absolute Nucleated RBC Nucleated RBC % (auto) aPTT Heparin Protocol 25.4 L D Sodium Potassium Chloride Carbon Dioxide Anion Gap BUN Creatinine Estim Creat Clear Calc Estimated GFR POC Glucose 223 H 241 H Random Glucose Calcium 05/08/22 05/08/22 05/08/22 06:32 07:05 10:25 WBC 7.2 RBC 3.31 L Hgb 10.0 L Hct 31.4 L MCV 94.9 MCH 30.2 MCHC 31.8 RDW 14.4 Plt Count 173 MPV 11.4 Absolute Nucleated RBC 0.000 Nucleated RBC % (auto) 0.0 aPTT Heparin Protocol Sodium 138 Potassium 5.6 H Chloride 107 Carbon Dioxide 23 Anion Gap 14 BUN 24 H Creatinine 1.79 H Estim Creat Clear Calc 31.3 Estimated GFR 29 POC Glucose 209 H Random Glucose 227 H Calcium 9.6 D 05/08/22 11:23 WBC RBC Hgb Hct MCV MCH MCHC RDW Plt Count MPV Absolute Nucleated RBC Nucleated RBC % (auto) aPTT Heparin Protocol Sodium Potassium Chloride Carbon Dioxide Anion Gap BUN Creatinine Estim Creat Clear Calc Estimated GFR POC Glucose 199 H Random Glucose Calcium <ARMANDO Childers - Last Filed: 05/08/22 11:54> Imaging Radiologist's impression: Impressions Myocardial Perfusion Scan Nuc Med 05/08/22 08:25 Impression: 1. Myocardial perfusion imaging study shows lateral and inferior wall ischemia 2. Gated LVEF is 58% 3. Transient ischemic dilatation not present EKG is nondiagnostic for ischemia <ARMANDO Childers - Last Filed: 05/08/22 11:54> Progress Note: A&P Assessment and plan (1) NSTEMI (non-ST elevated myocardial infarction): Status: Acute <ARMANDO Childers - Last Filed: 05/08/22 11:54> Assessment and Plan: Report of chest pressure on admit. EKG without acute changes. Troponin elevated at 6890, then 6930. Echo showed EF 55-60%, no regional WMA. Cr elevated at 3.58 on admit. Not able to perform cath at that time due to ISA. Known hx of CAD with prior CABG with PRADO to LAD and vein graft to OM. Her NSTEMI was managed medically with Heparin drip per protocol, for at over 48 hr. She was loaded with plavix and started on daily dose. She was continued on Metoprolol, aspirin and high dose atorvastatin. She does report having some chest pressure 2 days ago, none since then. A pharmacological nuclear stress test completed today shows lateral and inferior wall ischemia. BP has been elevated this admit. Her home Lisinopril and Lasix were stopped on admit due to ISA. Will plan to optimize her medications for good blood pressure and heart rate control. As outpt she will be evaluated for outpt cardiac cath. Can eat, no plan for [facility] transfer today. Will stop IV Heparin. Will start on Imdur 30mg daily, Hydralazine 25mg TID and restart her Lasix 40mg daily. Ongoing tele and BP monitoring. EKG if she does report CP. Plan reviewed with pt and she states understanding. We will follow. <ARMANDO Childers - Last Filed: 05/08/22 11:54> (2) Acute kidney injury superimposed on CKD: Status: Acute <ARMANDO Childers - Last Filed: 05/08/22 11:54> Assessment and Plan: Hx of CKD. Cr elevated at 3.58 on admit. Dehydrated in setting of diarrhea, concern for Cdiff. Rehydrated with IV fluid. Has not had recurrent diarrhea in last few days. Cr improved to 1.66 yesterday and is 1.79 today. K elevated at 5.6. Being managed by hospitalist. We will restart her lasix. <ARMANDO Childers - Last Filed: 05/08/22 11:54> (3) Coronary artery disease: Status: Acute <ARMANDO Childers - Last Filed: 05/08/22 11:54> (4) Hx of CABG: Status: Acute <ARMANDO Childers - Last Filed: 05/08/22 11:54> (5) Cardiac pacemaker in situ: Status: Acute <ARMANDO Childers Last Filed: 05/08/22 11:54> Assessment and Plan: Followed by our outpt office. No need for interrogation at this time. <ARMANDO Childers - Last Filed: 05/08/22 11:54> Assessment and Plan: Seen and examined at bedside. Pain free. Echo did not show wall motion. Nuclear imaging as shown inferior and lateral ischemia. She just recovered from severe ISA. Stable currently on meds. We will arrange cardiac cath as outpatient. She had SVG to OM but RCA was not grafted as there was no significant disease before. <Efren Diaz MD - Last Filed: 05/08/22 14:16> Time Spent With Patient Time: Total time spent is greater than 50% in coordination of care (as documented) at patient's floor/unit and/or counseling patient: 20 <ARMANDO Childers - Last Filed: 05/08/22 11:54> Progress Note: Quality Stroke Does the patient have a stroke diagnosis?: No <ARMANDO Childers - Last Filed: 05/08/22 11:54> Procedures Date of Service Date of Service: 05/08/22 <ARMANDO Childers - Last Filed: 05/08/22 11:54>
[2022-05-08 12:00] VITALS: BP 168/90; PULSE 76; RESP 18; TEMP 36.8; O2SAT 97
--- NOTE | 2022-05-08 13:03 | HO.PM.IMPN ---
Subjective Subjective Date of Service: 05/08/22 Interval History: seen this morning follow up for chest pain No chest pain this morning. No overnight events No specific complaints at this time Plan for resting portion of stress test today Review of Systems Review of Systems: Yes all other systems are reviewed and are negative Constitutional Constitutional: Denies chills and Denies fever(s) Cardiovascular Cardiovascular: Denies chest pain, Denies palpitations and Denies dyspnea Respiratory Respiratory: Denies cough and Denies dyspnea Gastrointestinal Gastrointestinal: Denies abdominal pain Endocrine Endocrine: Denies palpitations Physical Exam Vital Signs: Vital Signs: Last Vital Signs Temp 98.3 F 05/08/22 12:00 Pulse 76 05/08/22 12:00 Resp 18 05/08/22 12:00 BP 168/90 H 05/08/22 12:00 Pulse Ox 97 05/08/22 12:00 O2 Del Method 05/08/22 12:00 O2 Flow Rate 3 05/06/22 12:00 BMI result Body Mass Index 32.6 Const: General: cooperative, comfortable, no acute distress, alert and awake Nutritional Appearance: overweight Orientation/consciousness: patient oriented x3 Resp: Effort & Inspection: normal respiratory effort and able to speak in complete sentences Cardio: Rate: regular rate Heart sounds: S1 normal heart sound present and S2 normal heart sound present GI: Palpation (GI): Soft to palpation and nontender Neuro: Other: Grossly nonfocal General: patient oriented x3 Extrem: Other: Moving extremities spontaneously Objective Data Active Medications Acetaminophen (Acetaminophen 325 Mg Tablet) 650 mg PO Q6H PRN PRN Reason: Pain, Mild (Pain Scale 1-3) Last Admin: 05/04/22 22:19 Dose: 650 mg Documented By: DELFINA-HALIEICL Aspirin (Aspirin Enteric Coated 81 Mg Tablet.) 81 mg PO DAILY [facility] Last Admin: 05/07/22 07:59 Dose: 81 mg Documented By: VAMSI Atorvastatin Calcium (Atorvastatin Calcium 80 Mg Tablet) 80 mg PO BEDTIME [facility] Last Admin: 05/07/22 19:58 Dose: 80 mg Documented By: MERCY Clopidogrel Bisulfate (Clopidogrel Bisulfate 75 Mg Tablet) 75 mg PO DAILY [facility] Last Admin: 05/07/22 07:58 Dose: 75 mg Documented By: VAMSI Dextrose (Dextrose 50 % 25 Gm/50 Ml Syringe) 25 gm IVPUSH Q15M PRN; Protocol PRN Reason: per Hypoglycemia Standing Ord. Ferrous Sulfate (Ferrous Sulfate 324 Mg Tablet.) 324 mg PO DAILY [facility] Last Admin: 05/07/22 07:58 Dose: 324 mg Documented By: VAMSI Furosemide (Furosemide 40 Mg Tablet) 40 mg PO DAILY [facility]; Protocol Gabapentin (Gabapentin 100 Mg Capsule) 100 mg PO TID [facility] Last Admin: 05/07/22 19:58 Dose: 100 mg Documented By: MERCY Glucose (Glucose Gel 15 Gm Gel..Gram.) 15 gm PO Q15M PRN; Protocol PRN Reason: per Hypoglycemia Standing Ord. Hydralazine HCl (Hydralazine Hcl 25 Mg Tablet) 25 mg PO TID [facility]; Protocol Hydroxyzine HCl (Hydroxyzine Hcl 25 Mg Tablet) 25 mg PO Q8H PRN PRN Reason: anxiety/restlessness Insulin Human Lispro (Insulin Lispro 100 Unit/Ml 3 Ml Vial) 0 unit SUBCUT QIDACHS [facility]; Protocol Last Admin: 05/08/22 09:19 Dose: Not Given Documented By: ALEJANDRA Non-Admin Reason: NPO Isosorbide Mononitrate (Isosorbide Mononitrate 30 Mg Tab.Er.24h) 30 mg PO DAILY [facility]; Protocol Lorazepam (Lorazepam 0.5 Mg Tablet) 0.5 mg PO BID PRN PRN Reason: Anxiety Last Admin: 05/08/22 01:40 Dose: 0.5 mg Documented By: MERCY Melatonin (Melatonin 3 Mg Tablet) 6 mg PO BEDTIME PRN PRN Reason: Sleep Last Admin: 05/06/22 20:52 Dose: 6 mg Documented By: TORI Metoclopramide HCl (Metoclopramide Hcl 5 Mg Tablet) 5 mg PO TIDWM [facility] Last Admin: 05/07/22 16:53 Dose: 5 mg Documented By: VAMSI Metoprolol Succinate (Metoprolol Succinate Er 25 Mg Tab.Er.24h) 25 mg PO BIDWM [facility]; Protocol Last Admin: 05/07/22 16:53 Dose: 25 mg Documented By: VAMSI Nitroglycerin (Nitroglycerin 0.4 Mg Tab.Subl) 0.4 mg SUBLINGUAL Q5M PRN PRN Reason: Chest Pain Omeprazole (Omeprazole 20 Mg Capsule.) 20 mg PO DAILY@30 [facility] Last Admin: 05/08/22 05:38 Dose: Not Given Documented By: PEPE Non-Admin Reason: NPO Ondansetron HCl (Ondansetron Hcl 4 Mg/2 Ml Vial) 4 mg IVPUSH Q8H PRN PRN Reason: Nausea and Vomiting Last Admin: 05/07/22 13:33 Dose: 4 mg Documented By: VAMSI Tamsulosin HCl (Tamsulosin Hcl 0.4 Mg Capsule) 0.4 mg PO DAILY@1700 [facility] Last Admin: 05/07/22 16:53 Dose: 0.4 mg Documented By: VAMSI Trazodone HCl (Trazodone Hcl 25 Mg Halftab) 25 mg PO BEDTIME PRN PRN Reason: Sleep Last Admin: 05/06/22 20:52 Dose: 25 mg Documented By: TORI Vitamin D (Cholecalciferol (Vitamin D3) 25 Mcg Tablet) 25 mcg PO DAILY [facility] Last Admin: 05/07/22 07:58 Dose: 25 mcg Documented By: VAMSI Labs CBC & Chem 7: 05/08/22 06:32 05/08/22 10:25 Labs: Laboratory Results - last 24 hr 05/07/22 05/07/22 05/07/22 13:28 16:19 19:52 MCV MCH MCHC RDW Plt Count MPV Absolute Nucleated RBC Nucleated RBC % (auto) aPTT Heparin Protocol Anion Gap Estim Creat Clear Calc Estimated GFR POC Glucose 147 H 223 H 241 H Random Glucose Calcium 05/08/22 05/08/22 05/08/22 06:32 06:32 07:05 MCV 94.9 MCH 30.2 MCHC 31.8 RDW 14.4 Plt Count 173 MPV 11.4 Absolute Nucleated RBC 0.000 Nucleated RBC % (auto) 0.0 aPTT Heparin Protocol 25.4 L D Anion Gap Estim Creat Clear Calc Estimated GFR POC Glucose 209 H Random Glucose Calcium 05/08/22 05/08/22 10:25 11:23 MCV MCH MCHC RDW Plt Count MPV Absolute Nucleated RBC Nucleated RBC % (auto) aPTT Heparin Protocol Anion Gap 14 Estim Creat Clear Calc 31.3 Estimated GFR 29 POC Glucose 199 H Random Glucose 227 H Calcium 9.6 D Assessment and Plan (1) NSTEMI (non-ST elevated myocardial infarction): Status: Acute (2) Acute kidney injury superimposed on CKD: Status: Acute (3) Diarrhea: Status: Acute Plan 62?yo F with HTN, HLD, DM + gastroparesis, prior CVA, CHF, PPM, COPD, osteoporosis, CKD3?with recent admission for E. coli UTI causing sepsis, presenting with explosive diarrhea and found to be in ISA, now with NSTEMI NSTEMI -s/p 48 hrs of heparin, loaded clopidogrel and now on maintenance, ASA, NTG paste, metoprolol succinate, holding off on cardiac cath due to renal insufficiency. - s/p stress test, showing lateral and inferior wall ischemia - plan to optimize medications for good blood pressure and heart rate control and consider outpatient cardiac catheterization -cardiology follow-up HTN bp not at goal imdur, hydralazine started Continue metoprolol follow bp closely ISA/CKD3 - SCr improved from 3.58 to 1.79 - lisinopril on hold - Lasix resumed per Cardiology today - follow BNP diarrhea, antibiotic-associated - suspected C. difficile initially treated empirically with fidoxamicin. ID consulted- stop fidoxacimin and monitor and send stool if diarrhea recurs. Diarrhea so far resolved lactic acidosis - likely due to dehydration, not septic; resolved hyperK Potassium still elevated - will give lokelma - holding lisinopril - follow BMP DM2 - hold long-acting insulin, give correction-dose lispro, A1c 7.3 CAD/HLD/prior CVA - continue statin, ASA, metoprolol chronic HFpEF - hold furosemide as likely prerenal - continue metoprolol succinate gastroparesis - metoclopramide neuropathy - gabapentin- reduced dose for renal insufficiency VTE ppx- UFH Attending-Dr. Proctor In my clinical judgment, the patient requires continued hospitalization for the following reasons: NSTEMI, ISA, blood pressure management Quality Stroke Does the patient have a stroke diagnosis?: No VTE Prior VTE?: No VTE Risk Level:: Medical - moderate - high VTE Device Contraindication: N/A - Device Ordered VTE Drug Contraindication: N/A - Med Ordered
[2022-05-08] MEDS: Metoclopramide HCl 5 MG TABLET PO ×2 (13:20→17:05)
[2022-05-08] MEDS: Clopidogrel Bisulfate 75 MG TABLET PO (13:20)
[2022-05-08] MEDS: Furosemide 40 MG TABLET PO (13:20)
[2022-05-08] MEDS: hydrALAZINE HCl 25 MG TABLET PO ×2 (13:20→20:42)
[2022-05-08] MEDS: Isosorbide Mononitrate 30 MG TAB.ER.24H PO (13:20)
[2022-05-08] MEDS: Ferrous Sulfate 324 MG TABLET.DR PO (13:20)
[2022-05-08] MEDS: Gabapentin 100 MG CAPSULE PO ×2 (13:20→20:42)
[2022-05-08] MEDS: Insulin Lispro 100 UNIT/ML 3 ML VIAL SUBCUT ×3 (13:21→20:41)
[2022-05-08] MEDS: Aspirin Enteric Coated 81 MG TABLET.DR PO (13:21)
[2022-05-08] MEDS: Sodium Zirconium Cyclosilicate 10 GM POWD.PACK PO (13:21)
[2022-05-08 15:46] VITALS: BP 170/79; PULSE 83; RESP 18; TEMP 37; O2SAT 99
[2022-05-08 16:29] LABS: Glucose, Whole Blood 246 mg/dL (60-115)
[2022-05-08] MEDS: Tamsulosin HCL 0.4 MG CAPSULE PO (17:05)
[2022-05-08] MEDS: Metoprolol Succinate ER 25 MG TAB.ER.24H PO (17:05)
[2022-05-08 18:31] LABS: Potassium 5.3 mmol/L (3.3-5.1)
[2022-05-08 19:53] LABS: Glucose, Whole Blood 255 mg/dL (60-115)
[2022-05-08 19:55] VITALS: BP 102/52; PULSE 85; RESP 14; TEMP 35.6; O2SAT 95
[2022-05-08] MEDS: traZODone HCL 25 MG HALFTAB PO (20:42)
[2022-05-08] MEDS: Atorvastatin Calcium 80 MG TABLET PO (20:42)
[2022-05-08] MEDS: Melatonin 3 MG TABLET 6 MG PO (20:42)
[2022-05-09] VITALS: BP 108/51; PULSE 73; RESP 18; TEMP 36.8; O2SAT 95
[2022-05-09] MEDS: ondansetron HCL 4 MG/2 ML VIAL IVPUSH (03:45)
[2022-05-09] MEDS: LORazepam 0.5 MG TABLET PO (03:45)
[2022-05-09 03:50] VITALS: BP 137/63; PULSE 85; RESP 18; TEMP 36.8; O2SAT 97
[2022-05-09] MEDS: Omeprazole 20 MG CAPSULE.DR PO (06:35)
[2022-05-09 07:07] LABS: Anion Gap 16 (12-20); Blood Urea Nitrogen 38 mg/dL (9-16); Calcium 8.8 mg/dL (8.4-10.2); Carbon Dioxide 22 mmol/L (22-29); Chloride 103 mmol/L (96-108); Creatinine Clr Calc Pharmacy 23.4; Estimated Glomerular Filt Rate 20; Glucose Random 257 mg/dL (60-115); Potassium 5.8 mmol/L (3.3-5.1); Sodium 135 mmol/L (135-145)
[2022-05-09 07:49] VITALS: BP 195/79; PULSE 73; RESP 20; TEMP 37.2; O2SAT 97
[2022-05-09 07:55] LABS: Glucose, Whole Blood 197 mg/dL (60-115)
[2022-05-09] MEDS: Sodium Polystyrene Sulfon/Sorb 15 GM/60 ML ORAL.SUSP PO (08:08)
[2022-05-09] MEDS: Insulin Lispro 100 UNIT/ML 3 ML VIAL SUBCUT ×4 (08:08→21:59)
[2022-05-09] MEDS: Ferrous Sulfate 324 MG TABLET.DR PO (08:09)
[2022-05-09] MEDS: Aspirin Enteric Coated 81 MG TABLET.DR PO (08:09)
[2022-05-09] MEDS: Isosorbide Mononitrate 30 MG TAB.ER.24H PO (08:09)
[2022-05-09] MEDS: Metoprolol Succinate ER 25 MG TAB.ER.24H PO ×2 (08:09→17:24)
[2022-05-09] MEDS: Gabapentin 100 MG CAPSULE PO ×3 (08:09→22:00)
[2022-05-09] MEDS: Clopidogrel Bisulfate 75 MG TABLET PO (08:09)
[2022-05-09] MEDS: Cholecalciferol (Vitamin D3) 25 MCG TABLET PO (08:09)
[2022-05-09] MEDS: Metoclopramide HCl 5 MG TABLET PO ×3 (08:10→17:24)
[2022-05-09] MEDS: Furosemide 40 MG TABLET PO (08:10)
[2022-05-09] MEDS: hydrALAZINE HCl 25 MG TABLET PO ×3 (08:10→22:00)
--- NOTE | 2022-05-09 10:41 | P.PNIM_ITS ---
Subjective Subjective Date of Service: 05/09/22 Interval History: seen and examined this morning follow up for chest pain, ISA, diarrhea has not had any more chest pain or diarrhea Review of Systems Review of Systems: Yes all other systems are reviewed and are negative Constitutional Constitutional: Denies chills and Denies fever(s) Cardiovascular Cardiovascular: Denies chest pain, Denies palpitations and Denies dyspnea Respiratory Respiratory: Denies cough and Denies dyspnea Gastrointestinal Gastrointestinal: Denies abdominal pain, Denies diarrhea, Denies nausea and Denies vomiting Endocrine Endocrine: Denies palpitations Physical Exam Vital Signs: Vital Signs: Last Vital Signs Temp 99.0 F 05/09/22 07:49 Pulse 73 05/09/22 07:49 Resp 20 05/09/22 07:49 BP 195/79 H 05/09/22 07:49 Pulse Ox 97 05/09/22 07:49 O2 Del Method 05/09/22 07:49 O2 Flow Rate 3 05/06/22 12:00 BMI result Body Mass Index 32.6 Const: General: cooperative, comfortable, no acute distress, alert and awake Nutritional Appearance: overweight Orientation/consciousness: patient oriented x3 Resp: Effort & Inspection: normal respiratory effort and able to speak in complete sentences Auscultation: clear to auscultation bilaterally Cardio: Rate: regular rate Heart sounds: S1 normal heart sound present and S2 normal heart sound present GI: Palpation (GI): Soft to palpation and nontender Neuro: Other: Grossly nonfocal General: patient oriented x3 Extrem: Other: Moving extremities spontaneously; s/p left transmetatarsal amputation Objective Data Active Medications Acetaminophen (Acetaminophen 325 Mg Tablet) 650 mg PO Q6H PRN PRN Reason: Pain, Mild (Pain Scale 1-3) Last Admin: 05/04/22 22:19 Dose: 650 mg Documented By: DELFINA-LOUIS Aspirin (Aspirin Enteric Coated 81 Mg Tablet.) 81 mg PO DAILY [facility] Last Admin: 05/09/22 08:09 Dose: 81 mg Documented By: NESSA Atorvastatin Calcium (Atorvastatin Calcium 80 Mg Tablet) 80 mg PO BEDTIME [facility] Last Admin: 05/08/22 20:42 Dose: 80 mg Documented By: JIM Clopidogrel Bisulfate (Clopidogrel Bisulfate 75 Mg Tablet) 75 mg PO DAILY [facility] Last Admin: 05/09/22 08:09 Dose: 75 mg Documented By: NESSA Dextrose (Dextrose 50 % 25 Gm/50 Ml Syringe) 25 gm IVPUSH Q15M PRN; Protocol PRN Reason: per Hypoglycemia Standing Ord. Ferrous Sulfate (Ferrous Sulfate 324 Mg Tablet.Dr) 324 mg PO DAILY [facility] Last Admin: 05/09/22 08:09 Dose: 324 mg Documented By: NESSA Furosemide (Furosemide 40 Mg Tablet) 40 mg PO DAILY [facility]; Protocol Last Admin: 05/09/22 08:10 Dose: 40 mg Documented By: NESSA Gabapentin (Gabapentin 100 Mg Capsule) 100 mg PO TID [facility] Last Admin: 05/09/22 08:09 Dose: 100 mg Documented By: NESSA Glucose (Glucose Gel 15 Gm Gel..Gram.) 15 gm PO Q15M PRN; Protocol PRN Reason: per Hypoglycemia Standing Ord. Hydralazine HCl (Hydralazine Hcl 25 Mg Tablet) 25 mg PO TID [facility]; Protocol Last Admin: 05/09/22 08:10 Dose: 25 mg Documented By: NESSA Hydroxyzine HCl (Hydroxyzine Hcl 25 Mg Tablet) 25 mg PO Q8H PRN PRN Reason: anxiety/restlessness Insulin Human Lispro (Insulin Lispro 100 Unit/Ml 3 Ml Vial) 0 unit SUBCUT QIDACHS [facility]; Protocol Last Admin: 05/09/22 08:08 Dose: 2 unit Documented By: NESSA Isosorbide Mononitrate (Isosorbide Mononitrate 30 Mg Tab.Er.24h) 30 mg PO DAILY [facility]; Protocol Last Admin: 05/09/22 08:09 Dose: 30 mg Documented By: NESSA Lorazepam (Lorazepam 0.5 Mg Tablet) 0.5 mg PO BID PRN PRN Reason: Anxiety Last Admin: 05/09/22 03:45 Dose: 0.5 mg Documented By: JIM Melatonin (Melatonin 3 Mg Tablet) 6 mg PO BEDTIME PRN PRN Reason: Sleep Last Admin: 05/08/22 20:42 Dose: 6 mg Documented By: JIM Metoclopramide HCl (Metoclopramide Hcl 5 Mg Tablet) 5 mg PO TIDWM [facility] Last Admin: 05/09/22 08:10 Dose: 5 mg Documented By: NESSA Metoprolol Succinate (Metoprolol Succinate Er 25 Mg Tab.Er.24h) 25 mg PO BIDWM [facility]; Protocol Last Admin: 05/09/22 08:09 Dose: 25 mg Documented By: NESSA Nitroglycerin (Nitroglycerin 0.4 Mg Tab.Subl) 0.4 mg SUBLINGUAL Q5M PRN PRN Reason: Chest Pain Omeprazole (Omeprazole 20 Mg Capsule.Dr) 20 mg PO DAILY@0630 [facility] Last Admin: 05/09/22 06:35 Dose: 20 mg Documented By: JIM Ondansetron HCl (Ondansetron Hcl 4 Mg/2 Ml Vial) 4 mg IVPUSH Q8H PRN PRN Reason: Nausea and Vomiting Last Admin: 05/09/22 03:45 Dose: 4 mg Documented By: JIM Tamsulosin HCl (Tamsulosin Hcl 0.4 Mg Capsule) 0.4 mg PO DAILY@1700 [facility] Last Admin: 05/08/22 17:05 Dose: 0.4 mg Documented By: JENNIFER Trazodone HCl (Trazodone Hcl 25 Mg Halftab) 25 mg PO BEDTIME PRN PRN Reason: Sleep Last Admin: 05/08/22 20:42 Dose: 25 mg Documented By: JIM Vitamin D (Cholecalciferol (Vitamin D3) 25 Mcg Tablet) 25 mcg PO DAILY [facility] Last Admin: 05/09/22 08:09 Dose: 25 mcg Documented By: NESSA Labs CBC & Chem 7: 05/08/22 06:32 05/09/22 06:31 Labs: Laboratory Results - last 24 hr 05/08/22 05/08/22 05/08/22 10:25 11:23 16:26 Anion Gap 14 Estim Creat Clear Calc 31.3 Estimated GFR 29 POC Glucose 199 H 246 H Random Glucose 227 H Calcium 9.6 D 05/08/22 05/09/22 05/09/22 19:48 06:31 07:51 Anion Gap 16 Estim Creat Clear Calc 23.4 Estimated GFR 20 POC Glucose 255 H 197 H Random Glucose 257 H Calcium 8.8 D Assessment and Plan (1) NSTEMI (non-ST elevated myocardial infarction): Status: Acute (2) Acute kidney injury superimposed on CKD: Status: Acute (3) Diarrhea: Status: Acute Plan 62?yo F with HTN, HLD, DM + gastroparesis, prior CVA, CHF, PPM, COPD, osteoporosis, CKD3?with recent admission for E. coli UTI causing sepsis, presenting with explosive diarrhea and found to be in ISA, and now with NSTEMI NSTEMI s/p 48 hrs of heparin, loaded clopidogrel and now on maintenance, ASA, NTG paste, metoprolol succinate echo with no WMA s/p stress test, showing lateral and inferior wall ischemia - plan to optimize medications for good blood pressure and heart rate control and consider outpatient cardiac catheterization cardiology following HTN bp elevated, started onimdur, hydralazine this admission Continue metoprolol follow bp closely ISA/CKD3 SCr initially improved from 3.58 to 1.79 with IVF, today creatinine 2.39 after restarting lasix. - lisinopril on hold - will hold lasix again - follow BNP hyperK Potassium still elevated, up to 5.8 after lokelma looking at med rec appears she takes lokelma q2d at baseline, will resume -will give dose of kayexalate - continue to hold lisinopril - follow BMP diarrhea, antibiotic-associated initially suspected C. difficile and treated empirically with fidoxamicin. ID consulted- stop fidoxacimin and monitor and send stool if diarrhea recurs. Diarrhea so far resolved lactic acidosis - likely due to dehydration, not septic; resolved DM2 - hold long-acting insulin, give correction-dose lispro, A1c 7.3 CAD/HLD/prior CVA - continue statin, ASA, metoprolol chronic HFpEF - hold furosemide - continue metoprolol succinate gastroparesis - metoclopramide neuropathy - gabapentin- reduced dose for renal insufficiency VTE ppx- UFH Attending-Dr. Lawson In my clinical judgment, the patient requires continued hospitalization for the following reasons: NSTEMI, ISA, blood pressure management, hyperkalemia Quality Stroke Does the patient have a stroke diagnosis?: No VTE Prior VTE?: No VTE Risk Level:: Medical - moderate - high VTE Device Contraindication: N/A - Device Ordered VTE Drug Contraindication: N/A - Med Ordered
--- NOTE | 2022-05-09 10:56 | P.PNCA_ITS ---
Subjective Subjective Date of Service: 05/09/22 Principal diagnosis: NSTEMI, ISA Interval history: Lida is feeling better. No chest discomfort or shortness of breath. Her home dose of furosemide was resumed yesterday. She is noted to be hyperkalemic with mild kidney injury today. She had kidney injury on admission after episodes of diarrhea. Physical Exam Vital Signs: Last Vital Signs Temp 99.0 F 05/09/22 07:49 Pulse 73 05/09/22 07:49 Resp 20 05/09/22 07:49 BP 195/79 H 05/09/22 07:49 Pulse Ox 97 05/09/22 07:49 O2 Del Method 05/09/22 07:49 O2 Flow Rate 3 05/06/22 12:00 BMI result Body Mass Index 32.6 GENERAL APPEARANCE: in no acute distress, pleasant. SKIN: no suspicious lesions, warm and dry. HEART: no murmurs, regular rate and rhythm. LUNGS: clear to auscultation bilaterally. ABDOMEN: soft, nontender. EXTREMITIES: Mild edema. PERIPHERAL PULSES: equal. NEUROLOGIC: No gross deficits, AAO X 3 Objective Labs and Meds Result diagrams: 05/08/22 06:32 05/09/22 06:31 Lab results: Laboratory Results - last 24 hr 05/08/22 05/08/22 05/08/22 10:25 11:23 16:26 Sodium 138 Potassium 5.6 H Chloride 107 Carbon Dioxide 23 Anion Gap 14 BUN 24 H Creatinine 1.79 H Estim Creat Clear Calc 31.3 Estimated GFR 29 POC Glucose 199 H 246 H Random Glucose 227 H Calcium 9.6 D 05/08/22 05/08/22 05/09/22 17:59 19:48 06:31 Sodium 135 Potassium 5.3 H 5.8 H Chloride 103 Carbon Dioxide 22 Anion Gap 16 BUN 38 H D Creatinine 2.39 H Estim Creat Clear Calc 23.4 Estimated GFR 20 POC Glucose 255 H Random Glucose 257 H Calcium 8.8 D 05/09/22 07:51 Sodium Potassium Chloride Carbon Dioxide Anion Gap BUN Creatinine Estim Creat Clear Calc Estimated GFR POC Glucose 197 H Random Glucose Calcium Progress Note: A&P Assessment and plan (1) NSTEMI (non-ST elevated myocardial infarction): Status: Acute (2) HTN (hypertension): Status: Acute Plan [age] year female with known history of coronary disease with previous bypass surgery with PRADO to LAD and saphenous vein graft to OM who is presenting with diarrhea and acute kidney injury. She also complained of chest discomfort and ruled in for NSTEMI. She was given IV fluids and her kidney function has improved. We resumed her home dose of Lasix yesterday and today her creatinine is rising and potassium was rising too. Potassium is 5.8. I think we hold further diuretics for now. She will need Kayexalate to bring the potassium down. She had mild NSTEMI on this admission the setting of kidney injury but was also having some pressure-like feeling in the chest too. With medical management her symptoms have improved. She underwent Lexiscan which is showing inferior and lateral perfusion defects. Due to recent kidney injury and still unstable kidney function I have advised her that we medically manage her for now. She is going to stay on aspirin Plavix. Blood pressure is improving with nitrates and hydralazine. Her lisinopril is on hold because of acute kidney injury and hyperkalemia. We will follow along with you. Thank you for allowing me to participate in the care of your patient. Please fe el free to contact me if you have any questions. Time Spent With Patient Time: Total time spent is greater than 50% in coordination of care (as documented) at patient's floor/unit and/or counseling patient: Progress Note: Quality Stroke Does the patient have a stroke diagnosis?: No Procedures Date of Service Date of Service: 05/09/22
[2022-05-09 10:58] VITALS: BP 127/63; PULSE 78; RESP 18; O2SAT 94
[2022-05-09 11:16] LABS: Glucose, Whole Blood 280 mg/dL (60-115)
[2022-05-09 12:12] LABS: Leukocytes Stool Qualitative NEGATIVE (NEGATIVE)
[2022-05-09 12:29] LABS: CDiff Gene PCR POSITIVE (Negative)
[2022-05-09] MEDS: Sodium Zirconium Cyclosilicate 5 GM POWD.PACK PO (12:43)
[2022-05-09 13:22] LABS: CDiff Toxin Negative (Negative)
[2022-05-09 13:23] LABS: CDIFF Internal ctrl Dots and bkg OK (V)
[2022-05-09 14:13] LABS: Potassium 5.2 mmol/L (3.3-5.1)
[2022-05-09 15:29] VITALS: BP 129/70; PULSE 88; RESP 18; TEMP 36.9; O2SAT 97
[2022-05-09 16:23] LABS: Glucose, Whole Blood 231 mg/dL (60-115)
[2022-05-09] MEDS: Tamsulosin HCL 0.4 MG CAPSULE PO (17:24)
[2022-05-09 20:00] VITALS: BP 138/63; PULSE 80; RESP 18; TEMP 36.6; O2SAT 93
[2022-05-09 21:22] LABS: Glucose, Whole Blood 262 mg/dL (60-115)
[2022-05-09] MEDS: Atorvastatin Calcium 80 MG TABLET PO (22:00)
[2022-05-10] VITALS: PULSE 80; RESP 18; TEMP 36.6; O2SAT 96
[2022-05-10] MEDS: hydrOXYzine HCL 25 MG TABLET PO (00:01)
[2022-05-10] MEDS: LORazepam 0.5 MG TABLET PO (03:09)
[2022-05-10 03:37] VITALS: BP 166/77; PULSE 79; RESP 18; TEMP 36.6; O2SAT 92
[2022-05-10 07:13] LABS: Hematocrit 31.8 % (37.0-47.0); Hemoglobin 10.6 g/dl (12.0-16.0); Mean Corpuscular HGB Conc 33.3 g/dl (31.0-35.0); Mean Corpuscular Hemoglobin 31.1 pg (27.0-33.0); Mean Corpuscular Volume 93.3 fL (80.0-98.0); Mean Platelet Volume 11.4 fL (9.4-12.3); Platelet Count 184 X10*3/uL (160-400); Red Blood Count 3.41 X10*6/uL (4.20-5.50); White Blood Count 8.7 X10*3/uL (4.8-10.8)
[2022-05-10 07:24] LABS: Anion Gap 15 (12-20); Blood Urea Nitrogen 24 mg/dL (9-16); Calcium 8.6 mg/dL (8.4-10.2); Carbon Dioxide 24 mmol/L (22-29); Chloride 102 mmol/L (96-108); Creatinine Clr Calc Pharmacy 26.4; Estimated Glomerular Filt Rate 23; Glucose Random 300 mg/dL (60-115); Potassium 5.1 mmol/L (3.3-5.1); Sodium 136 mmol/L (135-145)
[2022-05-10 07:55] LABS: Glucose, Whole Blood 257 mg/dL (60-115)
[2022-05-10 08:00] VITALS: BP 117/56; PULSE 83; RESP 19; TEMP 36.3; O2SAT 96
[2022-05-10] MEDS: Isosorbide Mononitrate 30 MG TAB.ER.24H PO (08:30)
[2022-05-10] MEDS: Insulin Lispro 100 UNIT/ML 3 ML VIAL SUBCUT ×2 (08:30→12:27)
[2022-05-10] MEDS: Gabapentin 100 MG CAPSULE PO ×2 (08:30→15:56)
[2022-05-10] MEDS: Cholecalciferol (Vitamin D3) 25 MCG TABLET PO (08:30)
[2022-05-10] MEDS: Metoprolol Succinate ER 25 MG TAB.ER.24H PO (08:30)
[2022-05-10] MEDS: Metoclopramide HCl 5 MG TABLET PO ×3 (08:31→15:56)
[2022-05-10] MEDS: Clopidogrel Bisulfate 75 MG TABLET PO (08:31)
[2022-05-10] MEDS: Aspirin Enteric Coated 81 MG TABLET.DR PO (08:31)
[2022-05-10] MEDS: Ferrous Sulfate 324 MG TABLET.DR PO (08:31)
[2022-05-10] MEDS: hydrALAZINE HCl 25 MG TABLET PO (08:31)
[2022-05-10 11:17] LABS: Glucose, Whole Blood 262 mg/dL (60-115)
[2022-05-10 11:40] VITALS: BP 134/67; PULSE 82; RESP 18; TEMP 36.6; O2SAT 94
--- NOTE | 2022-05-10 13:26 | PM.DS ---
DS: Providers Provider Date of Service: 05/10/22 Date of admission: 05/04/22 15:28 Primary care physician: Unknown Physician Consults: 05/04/22 15:20 Consult to Infectious Diseases Routine Consulting Provider: Bethany Torres Reason for consultation: suspected CdI, severe 05/05/22 10:19 Consult to Cardiology Routine Consulting Provider: [facility] Reason for consultation: VT 12 beats, chest pain DS: Diagnosis Discharge Diagnosis (1) NSTEMI (non-ST elevated myocardial infarction): Status: Acute (2) Acute kidney injury superimposed on CKD: Status: Acute (3) Diarrhea: Status: Acute (4) HTN (hypertension): Status: Acute DS: Summary Hospital Course Hospital Course: From H&P on day of admission 62?yo F with HTN, HLD, DM + gastroparesis, CAD s/p CABG, prior CVA, HFpEF, PPM, COPD, osteoporosis, CKD3, autonomic instability who was just admitted here 04/18-04/22/22 with sepsis due to E. coli UTI.? She was discharged on cefuroxime and completed her last dose today.? Last night, she developed explosive, watery, non-bloody diarrhea.? She had an additional 5 episodes today.? She also notes abdominal cramping and diffuse myalgias.? No vomiting.? ? Initial BP 91/53. ? CBC pending.? Serum creatinine 3.58, compared to 1.64 on 04/22/22.? BUN also up to 62.? Lactate 2.9.? She was given 1L NS.? Serum K 5.4 with no EKG changes of hyperkalemia.? C. difficile PCR pending Discharge diagnoses NSTEMI ISA on CKD 3 Hyperkalemia Uncontrolled hypertension Diarrhea Lactic acidosis Diabetes Hospital course by problem: NSTEMI Patient had chest pain and cardiac enzymes were checked and noted to be elevated at 6890. She was treated with 48 hrs of heparin, loaded with clopidogrel and been started on maintenance dosing of Plavix. She was continued on ASA and her dose of metoprolol succinate was increased to twice daily.. She was seen by Cardiology in consultation. echo with no WMA. She underwent stress test, showing lateral and inferior wall ischemia. plan to optimize medications for good blood pressure and heart rate control and consider outpatient cardiac catheterization. Chest pain has resolved. She should call to schedule follow-up appointment with Cardiology. She should return to the emergency department of any recurrence of chest pain. HTN. Blood pressure not under adequate control. She was started on imdur and hydralazine this admission and dose of metoprolol was increased. Blood pressure has remained stable. Lisinopril has been on hold. ISA/CKD3 SCr initially improved with IVF and holding lisinopril. She had slight bump in creatinine when Lasix was reintroduced. She is now within her normal baseline. Will resume Lasix on discharge. Lisinopril will remain on hold. Recommend repeat labs on wednesday to re-check kidney function and potassium level. If normal lisinopril can be resumed. Hyperkalemia. Secondary to ISA. TAMEKA-inhibitor was placed on hold and She was treated with Lokelma and Kayexalate. Her home dose of Lokelma was resumed and hyperkalemia resolved. diarrhea initially suspected C. difficile and treated empirically with fidoxamicin.? ID was consulted and recommended to stop fidoxacimin as diarrhea had resolved. C diff PCR came back positive with negative a and B toxin, likely colonization. Discussed with Infectious Diseases, no treatment recommended at this time. lactic acidosis - likely due to dehydration, not septic; resolved DM2. She was treated with correction dose lispro during hospitalization. Blood sugars have remained in the mid 200s. Recommend to decrease dose of Tresiba to 20 units on discharge and resume other previous medications. Monitor blood sugars before meals and at bedtime. If blood sugars are elevated would recommend to resume Tresiba at previous dose. Call to schedule follow-up with PCP for close monitoring of blood sugar. Time Spent with Patient Time attestation: Total time spent providing and/or coordinating discharge services: Discharge coordination time: Greater than 30 minutes Quality: Safe Use of Opioids Does Pt have an Active Cancer Diagnosis on the Problem List?: No Quality: Stroke Does the patient have a stroke diagnosis?: No Physical Exam Vital Signs: Vital Signs: Last Vital Signs Temp 97.9 F 05/10/22 11:40 Pulse 82 05/10/22 11:40 Resp 18 05/10/22 11:40 BP 134/67 05/10/22 11:40 Pulse Ox 94 05/10/22 11:40 O2 Del Method 05/10/22 11:40 O2 Flow Rate 3 05/10/22 00:00 BMI result Body Mass Index 32.6 DS: Data Data Completed and Pending Completed studies during hospitalization [Text1]: Procedures Insertion of Infusion Device into Right Basilic Vein, Percutaneous Approach (10/31/20) Transfusion of Nonautologous Red Blood Cells into Peripheral Vein, Percutaneous Approach (10/31/20) Labs on day of discharge: Laboratory Results - last 24 hr 05/09/22 05/09/22 05/09/22 13:46 16:19 21:18 WBC RBC Hgb Hct MCV MCH MCHC RDW Plt Count MPV Absolute Nucleated RBC Nucleated RBC % (auto) Sodium Potassium 5.2 H Chloride Carbon Dioxide Anion Gap BUN Creatinine Estim Creat Clear Calc Estimated GFR POC Glucose 231 H 262 H Random Glucose Calcium 05/10/22 05/10/22 05/10/22 06:26 06:26 07:33 WBC 8.7 RBC 3.41 L Hgb 10.6 L Hct 31.8 L MCV 93.3 MCH 31.1 MCHC 33.3 RDW 14.0 Plt Count 184 MPV 11.4 Absolute Nucleated RBC 0.000 Nucleated RBC % (auto) 0.0 Sodium 136 Potassium 5.1 Chloride 102 Carbon Dioxide 24 Anion Gap 15 BUN 24 H Creatinine 2.12 H Estim Creat Clear Calc 26.4 Estimated GFR 23 POC Glucose 257 H Random Glucose 300 H Calcium 8.6 05/10/22 11:13 WBC RBC Hgb Hct MCV MCH MCHC RDW Plt Count MPV Absolute Nucleated RBC Nucleated RBC % (auto) Sodium Potassium Chloride Carbon Dioxide Anion Gap BUN Creatinine Estim Creat Clear Calc Estimated GFR POC Glucose 262 H Random Glucose Calcium Preliminary micro results at discharge 05/09/22 10:35 Stool Culture - Preliminary Stool Culture in progress. Discharge Plan Discharge Patient Disposition: Home Health Service Discharge Diagnosis: NSTEMI ISA on CKD Diarrhea Hyperkalemia Referrals: Efren Diaz MD [Physician] - 1 Week Physician,Unknown J [Primary Care Provider] - 1 Week Discharge Medications: New clopidogrel 75 mg Tablet 75 mg PO DAILY 30 Days Qty: 30 0RF metoprolol succinate 25 mg Tablet Extended Release 24 Hr 25 mg PO BIDWM 30 Days Qty: 60 0RF Protocol: Hold for SBP/HR < HOLD for SBP < : 90 HOLD for HR < : 60 hydralazine 25 mg Tablet 25 mg PO TID 30 Days Qty: 90 0RF Protocol: Hold for SBP< HOLD for SBP < : 90 isosorbide mononitrate 30 mg Tablet Extended Release 24 Hr 30 mg PO DAILY 30 Days Qty: 30 0RF Protocol: Hold for SBP< HOLD for SBP < : 90 Continued lorazepam 0.5 mg Tablet 0.5 mg PO BID PRN (Reason: Anxiety) allopurinol 100 mg Tablet 100 mg PO DAILY aspirin 81 mg Tablet,Delayed Release (Dr/Ec) 81 mg PO DAILY Hold Instructions: Resume on 01/13/21. tamsulosin 0.4 mg capsule 0.4 mg PO DAILY@1700 ferrous sulfate [iron] 325 mg (65 mg iron) Tablet 325 mg PO DAILY nitroglycerin 0.4 mg Tablet, Sublingual 0.4 mg SUBLINGUAL Q5M PRN (Reason: Chest Pain) melatonin 5 mg Tablet 5 mg PO BEDTIME PRN (Reason: Sleep) gabapentin 100 mg capsule 200 mg PO TID trazodone 50 mg tablet 0.5 tab PO BEDTIME PRN (Reason: Sleep) pantoprazole 40 mg tablet,delayed release (DR/EC) 1 tab PO DAILY atorvastatin 80 mg tablet 80 mg PO BEDTIME Tradjenta 5 mg tablet 5 mg PO DAILY furosemide 40 mg tablet 40 mg PO DAILY acetaminophen 500 mg tablet 1 tab PO Q6H PRN (Reason: Pain) cholecalciferol (vitamin D3) 25 mcg (1,000 unit) capsule 1 cap PO DAILY loperamide 2 mg capsule 2 mg PO DAILY PRN (Reason: Diarrhea) insulin aspart U-100 [Novolog Flexpen U-100 Insulin] 100 unit/mL (3 mL) Insulin Pen See Protocol SUBCUT TIDAC Protocol: Insulin Correction Scale Less than or equal to 110 ---- Give (units): 0 111 to 150 Give (units): 0 151 to 200 Give (units): 8 201 to 250 Give (units): 10 251 to 300 Give (units): 12 301 to 350 Give (units): 14 Greater than 350 Give (units): 16 Call MD if Blood Glucose > : 350 Lokelma 5 gram powder in packet 5 g PO Q2D metoclopramide HCl 5 mg tablet 5 mg PO TIDWM Rx Instructions: with meals Changed Tresiba FlexTouch U-100 100 unit/mL (3 mL) insulin pen 20 unit subcut DAILY Qty: 3 0RF Held lisinopril 5 mg tablet 5 mg PO BEDTIME Qty: 0 0RF Hold Instructions: check repeat lab work and discuss with PCP to resume Discontinued metoprolol succinate 25 mg tablet extended release 24 hr 1 tab PO DAILY Discharge Orders: Discharge Order (Routine); Ordered 05/10/22 Ordered By: Yessica Sanchez Diet: advance to usual diet Activity on Discharge: As tolerated Stand Alone Forms: Patient Portal Discharge page Other Ambulatory Orders: Basic Metabolic Panel (Routine) Timeframe: [id number] Facility: [facility] - Location: Laboratory Ordered By: Yessica Sanchez Care Plan Goals: See below Health Concerns: NSTEMI-status post treatment with heparin Hypertension-improved ISA on CKD 3-resolved Hyperkalemia-resolved Diarrhea - cdif rule out Plan of Treatment: Your dose of metoprolol has been increased, please take new dose You have been started on hydralazine and Imdur for better blood pressure control You have been started on Plavix in addition to aspirin due to NSTEMI. Monitor for any signs of bleeding. Do not take other NSAIDs (Motrin, ibuprofen, Etc) Please call to schedule follow-up appointment with Cardiology to consider outpatient cardiac catheterization Call to schedule follow-up appointment with PCP to monitor blood sugar and blood pressure in the next week Repeat labs in the middle of the week to check potassium level and kidney function Hold lisinopril for now and discuss with PCP to resume after repeat labwork is obtained. Dose of treseba has been decreased. monitor blood sugar closely (before meals and at bedtime) and increase back to previous dose if blood sugars remain high. Follow diabetic diet Assessment: See discharge summary
[2022-05-10 15:29] VITALS: BP 99/45; PULSE 75; RESP 18; TEMP 36.1; O2SAT 94
--- NOTE | 2022-05-10 15:36 | MHC.CM.PN ---
Patient has been medically cleared for dc to home today with services. Patient was active with Cameron WRIGHT, who has been notified of today's dc and was sent the dc summary via [employer]. CM addressed IMM over the phone with Granddaughter/HCP/Kat @ [phone]; CM has spoken with Kat multiple times today (she is trying to arrange for a ride home for her Grandmother).
[2022-05-10] MEDS: Tamsulosin HCL 0.4 MG CAPSULE PO (15:56)
--- NOTE | 2022-05-10 16:00 | MHC.CM.PN ---
Patient is in need of transport to home; Granddaughter/Kat is trying to arrange for transport. CM explained to Kat & RN (Daisy) that there are no chair van Drivers nor shuttle on the weekend and no longer any ambulances covering for chair van. Patient uses a walker and RN indicates that a taxi would not be appropriate because there is no staff to wait in the lobby with Patient. CM still awaits a return call from Kat and RN has taken Kat's contact information to continue follow up on this task after this CM leaves for the day.
[2022-05-10 16:12] LABS: Glucose, Whole Blood 267 mg/dL (60-115)
--- NOTE | 2022-05-10 16:16 | MHC.CM.PN ---
RERE just received a call from Patients Granddaughter,Kat;she will be here to transport Patient home in 10 mins. RERE has informed RN.
== END 2022-05-10 19:37 | disposition home health service (06) | DRG 682 ==
LOC: HO.ED 15:16 → HO.EDOVER 15:36 → HO.IMC 05-05 22:57
PROVIDERS: Family Medicine; Internal Medicine; Nurse Practitioner Family; Admitting Provider Family Medicine; Emergency Provider Emergency Medicine; Responsible Provider Physician Assistant Medical; Visit Provider Student in an Organized Health Care Education/Training Program
DX: N17.9 Acute kidney failure, unspecified (principal); I21.4 Non-ST elevation (NSTEMI) myocardial infarction; I13.0 Hypertensive heart and chronic kidney disease with heart failure and stage 1 through stage 4 chronic kidney disease, or unspecified chronic kidney disease; I50.32 Chronic diastolic (congestive) heart failure; E87.2 Acidosis; A04.72 Enterocolitis due to Clostridium difficile, not specified as recurrent; I25.10 Atherosclerotic heart disease of native coronary artery without angina pectoris; Z95.1 Presence of aortocoronary bypass graft; M81.0 Age-related osteoporosis without current pathological fracture; J44.9 Chronic obstructive pulmonary disease, unspecified; Z86.73 Personal history of transient ischemic attack (TIA), and cerebral infarction without residual deficits; E11.22 Type 2 diabetes mellitus with diabetic chronic kidney disease; N18.30 Chronic kidney disease, stage 3 unspecified; E78.5 Hyperlipidemia, unspecified; E11.40 Type 2 diabetes mellitus with diabetic neuropathy, unspecified; E11.43 Type 2 diabetes mellitus with diabetic autonomic (poly)neuropathy; K31.84 Gastroparesis; I49.3 Ventricular premature depolarization; E86.0 Dehydration; E87.5 Hyperkalemia; Z20.822 Contact with and (suspected) exposure to COVID-19; Z87.440 Personal history of urinary (tract) infections; Z87.891 Personal history of nicotine dependence; Z88.1 Allergy status to other antibiotic agents; Z79.4 Long term (current) use of insulin; Z79.02 Long term (current) use of antithrombotics/antiplatelets; Z79.899 Other long term (current) drug therapy
CPT/HCPCS: 36415; 78452; 80048; 80076; 81001; 82947; 83036; 83605; 83690; 83735; 84132; 84484; 85025; 85027; 85610; 85730; 86140; 87040; 87045; 87046; 87324; 87493; 87502; 87635; 89055; 93005; 93017; 93306; 96360; 99285; A9500; J0280; J2405; J2785

== ENCOUNTER → 2022-05-27 11:06 | Outpatient (BNVA) | payer OTHER, SELFPAY | PROVIDERS: Visit Provider Internal Medicine Cardiovascular Disease | DX: I95.9 Hypotension, unspecified (principal); I50.32 Chronic diastolic (congestive) heart failure; G90.9 Disorder of the autonomic nervous system, unspecified; I25.2 Old myocardial infarction; Z79.899 Other long term (current) drug therapy | CPT/HCPCS: 99212 ==

== ENCOUNTER 2022-06-17 13:39 | Emergency (ER) | payer OTHER, SELFPAY ==
[2022-06-17 13:48] VITALS: BP 138/62; PULSE 96; O2SAT 98
--- NOTE | 2022-06-17 14:13 | ECG_ITS ---
Test Reason : HYPOTENTION Blood Pressure : / mmHG Vent. Rate : 096 BPM Atrial Rate : 096 BPM P-R Int : 224 ms QRS Dur : 120 ms QT Int : 384 ms P-R-T Axes : -16 097 -67 degrees QTc Int : 485 ms Atrial-sensed ventricular-paced rhythm with prolonged AV conduction Abnormal ECG When compared with ECG of 05-MAY-2022 11:40, Vent. rate has increased BY 33 BPM Referred By: Generic ED Physician Electronically Signed By:STEVE MASON
[2022-06-17 14:16] VITALS: BP 65/40; PULSE 92; RESP 16; O2SAT 92; BMI 29.9
[2022-06-17 14:47] LABS: MANUAL DIFF FLAG NO
[2022-06-17 14:48] LABS: Basophils Absolute Auto 0.1 X10*3/uL (0.0-0.2); Basophils Percent Auto 0.5 % (0-2); Eosinophils Absolute Auto 0.3 X10*3/uL (0.0-0.4); Eosinophils Percent Auto 3.5 % (0-4); Hematocrit 36.4 % (37.0-47.0); Hemoglobin 11.7 g/dl (12.0-16.0); Imm Gran Abs Auto 0.03 X10*3/uL (0.00-0.03); Imm Gran Pct Auto 0.3 % (0.0-0.4); Lymphocytes Absolute Auto 1.2 X10*3/uL (1.2-4.9); Lymphocytes Percent Auto 13.2 % (20-40); Mean Corpuscular HGB Conc 32.1 g/dl (31.0-35.0); Mean Corpuscular Hemoglobin 30.3 pg (27.0-33.0); Mean Corpuscular Volume 94.3 fL (80.0-98.0); Mean Platelet Volume 10.8 fL (9.4-12.3); Monocytes Absolute Auto 0.6 X10*3/uL (0.1-1.2); Monocytes Percent Auto 6.3 % (2-11); Neutrophils Absolute Auto 7.2 x10*3/uL (2.0-8.3); Neutrophils Percent Auto 76.2 % (45-73); Platelet Count 267 X10*3/uL (160-400); Red Blood Count 3.86 X10*6/uL (4.20-5.50); Red Cell Distribution Width 13.3 % (11.0-16.0); White Blood Count 9.4 X10*3/uL (4.8-10.8)
[2022-06-17 15:08] LABS: Troponin-I High Sensitivity 21.7 ng/L (<3.5-17.0)
[2022-06-17 15:26] VITALS: PULSE 90; RESP 14
--- NOTE | 2022-06-17 15:31 | ED_ITS ---
HPI - Weakness General Chief complaint: Weakness Stated complaint: Weakness Time Seen by Provider: 06/17/22 15:30 Source: patient Mode of arrival: EMS Limitations: no limitations History of Present Illness HPI Narrative: Patient is 62 old frequent ED visits with history of diabetes, autonomic dysfunction, CKD, diabetic neuropathy comes here for increased weakness since early today feels that her legs are weak when ambulates blood pressure was 60/48. Patient check her blood sugar was 120 earlier today no nausea no vomiting no diarrhea Related Data Home Medications Medication Instructions Recorded Confirmed lorazepam 0.5 mg tablet 0.5 mg PO BID PRN Anxiety 09/14/20 05/27/22 allopurinol 100 mg tablet 100 mg PO DAILY 09/16/20 05/27/22 aspirin 81 mg tablet,delayed 81 mg PO DAILY 09/16/20 05/27/22 release ferrous sulfate 325 mg (65 mg 325 mg PO DAILY 12/22/20 05/27/22 iron) tablet (iron) tamsulosin 0.4 mg capsule 0.4 mg PO DAILY@1700 12/22/20 05/27/22 melatonin 5 mg tablet 5 mg PO BEDTIME PRN Sleep 01/08/21 05/27/22 nitroglycerin 0.4 mg sublingual 0.4 mg sublingual Q5M PRN Chest 01/08/21 05/27/22 tablet Pain gabapentin 100 mg capsule 200 mg PO TID 03/06/21 05/27/22 metoclopramide HCl 5 mg tablet 5 mg PO TIDWM 03/20/21 05/27/22 pantoprazole 40 mg tablet,delayed 1 tab PO DAILY 01/10/22 05/27/22 release trazodone 50 mg tablet 0.5 tab PO BEDTIME PRN Sleep 01/10/22 05/27/22 atorvastatin 80 mg tablet 80 mg PO BEDTIME 01/21/22 05/27/22 linagliptin 5 mg tablet (Tradjenta) 5 mg PO DAILY 01/21/22 05/27/22 acetaminophen 500 mg tablet 1 tab PO Q6H PRN Pain 03/23/22 05/27/22 cholecalciferol (vitamin D3) 25 1 cap PO DAILY 03/23/22 05/27/22 mcg (1,000 unit) capsule insulin aspart U-100 100 unit/mL See Protocol subcut TIDAC 04/15/22 05/27/22 (3 mL) subcutaneous pen (Novolog Flexpen U-100 Insulin aspart) loperamide 2 mg capsule 2 mg PO DAILY PRN Diarrhea 04/15/22 05/27/22 furosemide 40 mg tablet 40 mg PO DAILY 04/18/22 05/27/22 sodium zirconium cyclosilicate 5 5 g PO Q2D 05/04/22 05/27/22 gram oral powder packet (Lokelar) Previous Rx's Medication Instructions Recorded lisinopril 5 mg tablet 5 mg PO BEDTIME #0 tabs 02/20/22 clopidogrel 75 mg tablet 75 mg PO DAILY 30 days #30 tabs 05/10/22 insulin degludec 100 unit/mL (3 20 unit (0.2 mL) subcut DAILY #3 mL 05/10/22 mL) subcutaneous pen (Tresiba FlexTouch U-100 insulin) isosorbide mononitrate 30 mg 30 mg PO DAILY 30 days #30 tabs 05/10/22 tablet,extended release 24 hr metoprolol succinate 25 mg 25 mg PO BIDWM 30 days #60 tabs 05/10/22 tablet,extended release 24 hr hydralazine 25 mg tablet 25 mg PO .at bedtime 30 days #60 05/27/22 tabs oxycodone 5 mg tablet 5 mg PO Q6H PRN pain #20 tabs 06/17/22 Allergies Allergy/AdvReac Type Severity Reaction Status Date / Time tetracycline [Tetracycline] Allergy Mild HIVES, Verified 05/04/22 13:14 anaphylaxis, anaphylaxis Review of Systems Review of Systems: Yes all other systems are reviewed and are negative [facility] Past Medical History Medical History Acute heart failure with preserved ejection fraction Anemia Anxiety Arthritis Cardiac pacemaker in situ Carpal tunnel syndrome CHF (congestive heart failure) Chronic heart failure with preserved ejection fraction (HFpEF) COPD exacerbation Coronary artery disease CVA (cerebral vascular accident) Diabetes Diabetic gastroparesis Fall Gastritis Gastroparesis Gastroparesis GERD (gastroesophageal reflux disease) Headache Heart failure with preserved ejection fraction HLD (hyperlipidemia) HTN (hypertension) HTN (hypertension) Hypocalcemia Hypoxia IBS (irritable bowel syndrome) Knee pain, left Myocardial infarct Nausea and vomiting Orthostasis Renal failure Suprapatellar effusion of knee T2DM (type 2 diabetes mellitus) UTI (urinary tract infection) Surgical History H/O Achilles tendon repair History of appendectomy History of bladder surgery History of carpal tunnel release History of total hysterectomy with bilateral salpingo-oophorectomy (BSO) Hx of amputation Hx of CABG (~2019) Hx of cholecystectomy Hx of endoscopy Hx of knee surgery Hx of tonsillectomy Family History Family History Father No problems noted. Mother Diabetes Hypercholesteremia Hypertension Stroke Social History Social History Household Members: Family Household Members Other:: 1 Housing: Apartment Do you presently have visiting nurse or other home services: Yes Alcohol intake: unknown Patient Tobacco Use Status: Former Tobacco user Years Smoked: 20 Second Hand Smoke Exposure: No Advance Directives: Yes Advance Directives on File: Yes Advance Directives Date on File: 01/13/22 service: No Current occupational status: disabled Physical Exam Vital Signs: Vital Signs: Last Vital Signs Temp 98.4 F 06/17/22 18:49 Pulse 89 06/17/22 18:49 Resp 10 L 06/17/22 18:49 BP 161/78 H 06/17/22 18:49 Pulse Ox 92 06/17/22 18:49 O2 Del Method 06/17/22 18:49 BMI result Body Mass Index 29.9 Appearance: Alert. Oriented X3. No acute distress. Eyes: PERRLA, No Nystagmus ENT: Pharynx normal. Oral Mucosa moist Neck: Normal inspection. Neck supple. CVS: Normal heart rate and rhythm. Pulses normal. Respiratory: No respiratory distress. Equal air entry bilateral, no wheezing/rales/rhonchi Abdomen: Soft and nontender. Bowel sounds are present, no mass palpable, no CVA tenderness Skin: Skin warm and dry. Normal skin color. Normal skin turgor. Extremities: No lower extremity edema. No calf tenderness Neuro: Oriented X 3. No motor deficit. No sensory deficit.No cerebellar signs , cranial nerves II-XII intact MDM - Weakness MDM Narrative Medical decision making narrative: Patient had transient hypotension etiology not clear when patient came in the ER without giving any IV fluid blood pressure improved to 161/78 will give patient oxycodone and discharge patient home Medical Records Attestation: I reviewed the patient's medical records. Lab Data Attestation: I reviewed the patient's lab results. Result diagrams: 06/17/22 14:41 06/17/22 17:30 Labs: Lab Results 06/17/22 06/17/22 06/17/22 Range/Units 14:41 14:41 17:30 WBC 9.4 (4.8-10.8) X10*3/uL RBC 3.86 L (4.20-5.50) X10*6/uL Hgb 11.7 L (12.0-16.0) g/dl Hct 36.4 L (37.0-47.0) % MCV 94.3 (80.0-98.0) fL MCH 30.3 (27.0-33.0) pg MCHC 32.1 (31.0-35.0) g/dl RDW 13.3 (11.0-16.0) % Plt Count 267 D (160-400) X10*3/uL MPV 10.8 (9.4-12.3) fL Immature Gran % (Auto) 0.3 (0.0-0.4) % Neut % (Auto) 76.2 H (45-73) % Lymph % (Auto) 13.2 L (20-40) % [place] % (Auto) 6.3 (2-11) % Eos % (Auto) 3.5 (0-4) % Baso % (Auto) 0.5 (0-2) % Lymph # (Auto) 1.2 (1.2-4.9) X10*3/uL [place] # (Auto) 0.6 (0.1-1.2) X10*3/uL Eos # (Auto) 0.3 (0.0-0.4) X10*3/uL Baso # (Auto) 0.1 (0.0-0.2) X10*3/uL Abs Immat Gran (auto) 0.03 (0.00-0.03) X10*3/uL Absolute Neuts (auto) 7.2 (2.0-8.3) x10*3/uL Absolute Nucleated RBC 0.000 (0.0-0.012) X10*3/uL Nucleated RBC % (auto) 0.0 (0.0-0.2) /100WBC Sodium 141 (135-145) mmol/L Potassium 4.2 (3.3-5.1) mmol/L Chloride 107 (96-108) mmol/L Carbon Dioxide 27 (22-29) mmol/L Anion Gap 11 L (12-20) BUN 51 H D (9-16) mg/dL Creatinine 2.19 H (0.5-1.4) mg/dL Estim Creat Clear Calc 24.5 Estimated GFR 23 Random Glucose 152 H (60-115) mg/dL Lactic Acid (0.5-2.0) mmol/L Calcium 8.9 (8.4-10.2) mg/dL Troponin I High Sens 21.7 H D (<3.5-17.0) ng/L 06/17/22 Range/Units 17:30 WBC (4.8-10.8) X10*3/uL RBC (4.20-5.50) X10*6/uL Hgb (12.0-16.0) g/dl Hct (37.0-47.0) % MCV (80.0-98.0) fL MCH (27.0-33.0) pg MCHC (31.0-35.0) g/dl RDW (11.0-16.0) % Plt Count (160-400) X10*3/uL MPV (9.4-12.3) fL Immature Gran % (Auto) (0.0-0.4) % Neut % (Auto) (45-73) % Lymph % (Auto) (20-40) % [place] % (Auto) (2-11) % Eos % (Auto) (0-4) % Baso % (Auto) (0-2) % Lymph # (Auto) (1.2-4.9) X10*3/uL [place] # (Auto) (0.1-1.2) X10*3/uL Eos # (Auto) (0.0-0.4) X10*3/uL Baso # (Auto) (0.0-0.2) X10*3/uL Abs Immat Gran (auto) (0.00-0.03) X10*3/uL Absolute Neuts (auto) (2.0-8.3) x10*3/uL Absolute Nucleated RBC (0.0-0.012) X10*3/uL Nucleated RBC % (auto) (0.0-0.2) /100WBC Sodium (135-145) mmol/L Potassium (3.3-5.1) mmol/L Chloride (96-108) mmol/L Carbon Dioxide (22-29) mmol/L Anion Gap (12-20) BUN (9-16) mg/dL Creatinine (0.5-1.4) mg/dL Estim Creat Clear Calc Estimated GFR Random Glucose (60-115) mg/dL Lactic Acid 1.2 (0.5-2.0) mmol/L Calcium (8.4-10.2) mg/dL Troponin I High Sens (<3.5-17.0) ng/L Discharge Plan Discharge Clinical Impression: Diabetic neuropathy Patient Disposition: Home, Self-Care Instructions: Diabetic Peripheral Neuropathy (ED) Additional Instructions: Continue medications as prescribed by her PCP Pain medication as prescribed Follow with PCP Prescriptions: New oxycodone 5 mg tablet 5 mg PO Q6H PRN (Reason: pain) Qty: 20 0RF Rx Instructions: Partial Fill upon patient request. No [facility] lorazepam 0.5 mg Tablet 0.5 mg PO BID PRN (Reason: Anxiety) allopurinol 100 mg Tablet 100 mg PO DAILY aspirin 81 mg Tablet,Delayed Release (Dr/Ec) 81 mg PO DAILY Hold Instructions: Resume on 01/13/21. tamsulosin 0.4 mg capsule 0.4 mg PO DAILY@1700 ferrous sulfate [iron] 325 mg (65 mg iron) Tablet 325 mg PO DAILY nitroglycerin 0.4 mg Tablet, Sublingual 0.4 mg SUBLINGUAL Q5M PRN (Reason: Chest Pain) melatonin 5 mg Tablet 5 mg PO BEDTIME PRN (Reason: Sleep) gabapentin 100 mg capsule 200 mg PO TID trazodone 50 mg tablet 0.5 tab PO BEDTIME PRN (Reason: Sleep) pantoprazole 40 mg tablet,delayed release (DR/EC) 1 tab PO DAILY atorvastatin 80 mg tablet 80 mg PO BEDTIME Tradjenta 5 mg tablet 5 mg PO DAILY lisinopril 5 mg tablet 5 mg PO BEDTIME Qty: 0 0RF Hold Instructions: check repeat lab work and discuss with PCP to resume furosemide 40 mg tablet 40 mg PO DAILY acetaminophen 500 mg tablet 1 tab PO Q6H PRN (Reason: Pain) cholecalciferol (vitamin D3) 25 mcg (1,000 unit) capsule 1 cap PO DAILY loperamide 2 mg capsule 2 mg PO DAILY PRN (Reason: Diarrhea) insulin aspart U-100 [Novolog Flexpen U-100 Insulin] 100 unit/mL (3 mL) Insulin Pen See Protocol SUBCUT TIDAC Protocol: Insulin Correction Scale Less than or equal to 110 ---- Give (units): 0 111 to 150 Give (units): 0 151 to 200 Give (units): 8 201 to 250 Give (units): 10 251 to 300 Give (units): 12 301 to 350 Give (units): 14 Greater than 350 Give (units): 16 Call MD if Blood Glucose > : 350 Lokelma 5 gram powder in packet 5 g PO Q2D clopidogrel 75 mg Tablet 75 mg PO DAILY 30 Days Qty: 30 0RF metoprolol succinate 25 mg Tablet Extended Release 24 Hr 25 mg PO BIDWM 30 Days Qty: 60 0RF Protocol: Hold for SBP/HR < HOLD for SBP < : 90 HOLD for HR < : 60 isosorbide mononitrate 30 mg Tablet Extended Release 24 Hr 30 mg PO DAILY 30 Days Qty: 30 0RF Protocol: Hold for SBP< HOLD for SBP < : 90 Tresiba FlexTouch U-100 100 unit/mL (3 mL) insulin pen 20 unit subcut DAILY Qty: 3 0RF metoclopramide HCl 5 mg tablet 5 mg PO TIDWM Rx Instructions: with meals hydralazine 25 mg tablet 25 mg PO .at bedtime 30 Days Qty: 60 0RF Protocol: Hold for SBP< HOLD for SBP < : 90
[2022-06-17] MEDS: 0.9 % Sodium Chloride 1,000 ML 999 ML IV (16:36)
[2022-06-17 16:45] VITALS: BP 146/68
[2022-06-17] MEDS: oxyCODONE HCl Immed Release 5 MG TABLET PO (16:47)
[2022-06-17 16:48] VITALS: BP 146/73; PULSE 88; RESP 16
--- NOTE | 2022-06-17 17:28 | PC.NURSE ---
pt difficult stick. multiple attempts made by diff staff members to draw. md aware. bps have been 130s systolically since arrival to room. pt c/o only of back and bilat leg pain.
[2022-06-17 17:48] LABS: Lactic Acid 1.2 mmol/L (0.5-2.0)
[2022-06-17 17:51] LABS: Anion Gap 11 (12-20); Blood Urea Nitrogen 51 mg/dL (9-16); Calcium 8.9 mg/dL (8.4-10.2); Carbon Dioxide 27 mmol/L (22-29); Chloride 107 mmol/L (96-108); Creatinine Clr Calc Pharmacy 24.5; Estimated Glomerular Filt Rate 23; Glucose Random 152 mg/dL (60-115); Potassium 4.2 mmol/L (3.3-5.1); Sodium 141 mmol/L (135-145)
[2022-06-17 18:49] VITALS: BP 161/78; PULSE 89; RESP 10; TEMP 36.9; O2SAT 92
--- NOTE | 2022-06-17 20:42 | PC.NURSE ---
[facility] called [facility] at [phone] for a bls transfer home,Hannah from [facility] will call back with a ETA.
--- NOTE | 2022-06-17 22:38 | PC.NURSE ---
Hannah from [facility] called at [phone] with an ETA for 2300 rn aware
== END 2022-06-18 02:16 | disposition home or self-care (01) ==
PROVIDERS: Emergency Provider Internal Medicine
DX: E11.40 Type 2 diabetes mellitus with diabetic neuropathy, unspecified (principal); R53.1 Weakness; E11.22 Type 2 diabetes mellitus with diabetic chronic kidney disease; I13.0 Hypertensive heart and chronic kidney disease with heart failure and stage 1 through stage 4 chronic kidney disease, or unspecified chronic kidney disease; N18.30 Chronic kidney disease, stage 3 unspecified; I50.32 Chronic diastolic (congestive) heart failure; E78.5 Hyperlipidemia, unspecified; Z87.891 Personal history of nicotine dependence; Z79.82 Long term (current) use of aspirin; Z79.899 Other long term (current) drug therapy; Z79.02 Long term (current) use of antithrombotics/antiplatelets; Z79.4 Long term (current) use of insulin; Z95.0 Presence of cardiac pacemaker
CPT/HCPCS: 36415; 80048; 83605; 84484; 85025; 87040; 93005; 96360; 99284; 99285

== ENCOUNTER 2022-07-13 20:32 | Inpatient (IN) | payer OTHER, SELFPAY ==
--- NOTE | ~2022-07-13 | CT_ITS ---
EXAMINATION: CT ABDOMEN AND PELVIS WITHOUT CONTRAST CLINICAL INFORMATION: Colitis COMPARISON: 04/19/2022 TECHNIQUE: Multidetector volumetric imaging was performed from the superior aspect of the liver through the pubic symphysis. Sagittal and coronal reformatted images were obtained on the technologist's workstation. This CT examination was performed using dose optimization techniques as appropriate, variously including the following: *Automated exposure control *Adjustment of mA and/or kV according to patient size (this includes techniques or standardized protocols for targeted exams where dose is matched to indication/reason for exam; i.e. extremities or head) *Use of iterative reconstruction technique DLP: 581 mGy-cm FINDINGS: LUNG BASES: Mild dependent atelectasis. LIVER, GALLBLADDER, AND BILIARY TREE: The liver is normal in size, shape, and attenuation. No focal hepatic lesion or biliary ductal dilatation is present. Patient is status post cholecystectomy. PANCREAS: Partially atrophic. SPLEEN: Unremarkable. ADRENAL GLANDS: Unremarkable. KIDNEYS AND URETERS: The kidneys are normal in size, shape, and attenuation. No hydronephrosis, hydroureter, or calculi seen. No perinephric stranding. BLADDER: Minimally distended with a diffusely thick-walled appearance. GASTROINTESTINAL TRACT: No evidence of bowel obstruction. There is a thick-walled appearance of the sigmoid colon and rectum, suspicious for colitis and proctitis. Mild associated pericolonic stranding is present in some regions. Fluid is seen within much of the colon without disproportionate dilation. No free fluid or free air is seen. ABDOMINAL WALL: Small fat-containing periumbilical ventral hernia. Generator device is present in the right gluteal subcutaneous tissues with leads extending to the right sacrum. LYMPH NODES: Normal. VASCULAR: There are moderately extensive calcifications along the aorta and iliac arteries. PELVIC VISCERA: Status post hysterectomy. OSSEOUS STRUCTURES: Unremarkable. CT/CT abdomen pelvis wo con IMPRESSION: Thick-walled appearance of the sigmoid colon and rectum, suspicious for colitis and proctitis.
[2022-07-13 21:00] VITALS: BMI 30.2
--- NOTE | 2022-07-13 21:00 | ED.GENADULT ---
HPI - General Adult General Chief complaint: Weakness Stated complaint: VASOVAGAL Time Seen by Provider: 07/13/22 20:55 Source: patient Mode of arrival: EMS Limitations: no limitations History of Present Illness HPI narrative: Patient 62-year-old with history of hypertension, hyperlipidemia, diabetes coming to gastroparesis, coronary disease status post CABG, HFpEF, ppm, COPD, CKD stage 3 with history of E coli bacteremia in 04/18/2022 comes here as feeling very weak no nausea no vomiting ++ diarrhea blood pressure was in low 60s. Patient denies any chest pain no palpitation no fever no chills just feeling weak after arrival in the ER patient had watery diarrhea per patient patient has been having watery stool multiple times for last 3 days which are very foul smelling with lower abdominal cramps. No fever/chills patient does have history of C diff colitis in 05/09/2022 Related Data Home Medications Medication Instructions Recorded Confirmed lorazepam 0.5 mg tablet 0.5 mg PO BID PRN Anxiety 09/14/20 05/27/22 allopurinol 100 mg tablet 100 mg PO DAILY 09/16/20 05/27/22 aspirin 81 mg tablet,delayed 81 mg PO DAILY 09/16/20 05/27/22 release ferrous sulfate 325 mg (65 mg 325 mg PO DAILY 12/22/20 05/27/22 iron) tablet (iron) tamsulosin 0.4 mg capsule 0.4 mg PO DAILY@1700 12/22/20 05/27/22 melatonin 5 mg tablet 5 mg PO BEDTIME PRN Sleep 01/08/21 05/27/22 nitroglycerin 0.4 mg sublingual 0.4 mg sublingual Q5M PRN Chest 01/08/21 05/27/22 tablet Pain gabapentin 100 mg capsule 200 mg PO TID 03/06/21 05/27/22 metoclopramide HCl 5 mg tablet 5 mg PO TIDWM 03/20/21 05/27/22 pantoprazole 40 mg tablet,delayed 1 tab PO DAILY 01/10/22 05/27/22 release trazodone 50 mg tablet 0.5 tab PO BEDTIME PRN Sleep 01/10/22 05/27/22 atorvastatin 80 mg tablet 80 mg PO BEDTIME 01/21/22 05/27/22 linagliptin 5 mg tablet (Tradjenta) 5 mg PO DAILY 01/21/22 05/27/22 acetaminophen 500 mg tablet 1 tab PO Q6H PRN Pain 03/23/22 05/27/22 cholecalciferol (vitamin D3) 25 1 cap PO DAILY 03/23/22 05/27/22 mcg (1,000 unit) capsule insulin aspart U-100 100 unit/mL See Protocol subcut TIDAC 04/15/22 05/27/22 (3 mL) subcutaneous pen (Novolog Flexpen U-100 Insulin aspart) loperamide 2 mg capsule 2 mg PO DAILY PRN Diarrhea 04/15/22 05/27/22 furosemide 40 mg tablet 40 mg PO DAILY 04/18/22 05/27/22 sodium zirconium cyclosilicate 5 5 g PO Q2D 05/04/22 05/27/22 gram oral powder packet (Lokelma) Previous Rx's Medication Instructions Recorded lisinopril 5 mg tablet 5 mg PO BEDTIME #0 tabs 02/20/22 clopidogrel 75 mg tablet 75 mg PO DAILY 30 days #30 tabs 05/10/22 insulin degludec 100 unit/mL (3 20 unit (0.2 mL) subcut DAILY #3 mL 05/10/22 mL) subcutaneous pen (Tresiba FlexTouch U-100 insulin) isosorbide mononitrate 30 mg 30 mg PO DAILY 30 days #30 tabs 05/10/22 tablet,extended release 24 hr metoprolol succinate 25 mg 25 mg PO BIDWM 30 days #60 tabs 05/10/22 tablet,extended release 24 hr hydralazine 25 mg tablet 25 mg PO .at bedtime 30 days #60 05/27/22 tabs oxycodone 5 mg tablet 5 mg PO Q6H PRN pain #20 tabs 06/17/22 Allergies Allergy/AdvReac Type Severity Reaction Status Date / Time tetracycline [Tetracycline] Allergy Mild HIVES, Verified 05/04/22 13:14 anaphylaxis, anaphylaxis Review of Systems Review of Systems: Yes all other systems are reviewed and are negative [facility] Past Medical History Medical History Acute heart failure with preserved ejection fraction Anemia Anxiety Arthritis Cardiac pacemaker in situ Carpal tunnel syndrome CHF (congestive heart failure) Chronic heart failure with preserved ejection fraction (HFpEF) COPD exacerbation Coronary artery disease CVA (cerebral vascular accident) Diabetes Diabetic gastroparesis Fall Gastritis Gastroparesis Gastroparesis GERD (gastroesophageal reflux disease) Headache Heart failure with preserved ejection fraction HLD (hyperlipidemia) HTN (hypertension) HTN (hypertension) Hypocalcemia Hypoxia IBS (irritable bowel syndrome) Knee pain, left Myocardial infarct Nausea and vomiting Orthostasis Renal failure Suprapatellar effusion of knee T2DM (type 2 diabetes mellitus) UTI (urinary tract infection) Surgical History H/O Achilles tendon repair History of appendectomy History of bladder surgery History of carpal tunnel release History of total hysterectomy with bilateral salpingo-oophorectomy (BSO) Hx of amputation Hx of CABG (~2019) Hx of cholecystectomy Hx of endoscopy Hx of knee surgery Hx of tonsillectomy Family History Family History Father No problems noted. Mother Diabetes Hypercholesteremia Hypertension Stroke Social History Social History Household Members: Family Household Members Other:: 1 Housing: Apartment Do you presently have visiting nurse or other home services: Yes Alcohol intake: unknown Patient Tobacco Use Status: Former Tobacco user Years Smoked: 20 Second Hand Smoke Exposure: No Use of substances other than those prescribed or required for medical reasons: Unknown Advance Directives: Yes Advance Directives on File: Yes Advance Directives Date on File: 01/13/22 Patient : No service: No Current occupational status: disabled Physical Exam ED Vital Signs: Vital Signs - 24 hr 07/13/22 22:14 07/13/22 23:27 07/13/22 23:36 Temperature 96.4 F L Pulse Rate 96 106 H 105 H Respiratory Rate 14 21 H 19 Blood Pressure 85/44 L 105/53 L 101/48 L Pulse Oximetry 96 95 94 Oxygen Delivery Method Room Air Room Air 07/14/22 00:36 Temperature 96.1 F L Pulse Rate 108 H Respiratory Rate 18 Blood Pressure 102/50 L Pulse Oximetry 94 Oxygen Delivery Method Room Air BMI result Body Mass Index 30.2 Appearance: Alert. Oriented X3. No acute distress. Looks sick Eyes: No pallor ENT: Pharynx normal. Oral Mucosa moist Neck: Normal inspection. Neck supple. CVS: Normal heart rate and rhythm. Pulses normal. Respiratory: No respiratory distress. Equal air entry bilateral, no wheezing/rales/rhonchi Abdomen: Soft and nontender. Bowel sounds are present, no mass palpable, no CVA tenderness Skin: Skin warm and dry. Normal skin color. Normal skin turgor. Extremities: No lower extremity edema. No calf tenderness left metatarsal amputation Neuro: Oriented X 3. No motor deficit. No sensory deficit.No cerebellar signs , cranial nerves II-XII intact Medical Decision Making MDM Narrative Medical decision making narrative: 220 Patient with acute hypotension with recent history of gram-negative bacteremia likely the cause for hypertension. Patient was given 2 L of IV fluids which is more than 30 cc/kilogram body weight also was started on Rocephin for broad coverage blood cultures were drawn lactic acid drawn results are pending 0100 after receiving 2 L of IV fluid broad-spectrum antibiotic patient's blood pressure improved 102/50 pulse 108, temperature 96.1 degrees. Patient stool was positive for guaiac H&H stable sample sent for C diff which is likely the cause for diarrhea patient was given p.o. vancomycin and IV Flagyl CT scan showed colitis in the sigmoid area. Will admit patient for sepsis, colitis, ISA patient's stool came positive for C diff 0130 focused exam for sepsis was done at 01:30 Lab Data Lab results reviewed: Yes I reviewed the patient's lab results. Result diagrams: 07/13/22 21:30 07/13/22 21:29 Labs: Lab Results 07/13/22 07/13/22 07/13/22 Range/Units 21:03 21:29 21:29 WBC (4.8-10.8) X10*3/uL RBC (4.20-5.50) X10*6/uL Hgb (12.0-16.0) g/dl Hct (37.0-47.0) % MCV (80.0-98.0) fL MCH (27.0-33.0) pg MCHC (31.0-35.0) g/dl RDW (11.0-16.0) % Plt Count (160-400) X10*3/uL MPV (9.4-12.3) fL Immature Gran % (Auto) (0.0-0.4) % Neut % (Auto) (45-73) % Lymph % (Auto) (20-40) % [place] % (Auto) (2-11) % Eos % (Auto) (0-4) % Baso % (Auto) (0-2) % Lymph # (Auto) (1.2-4.9) X10*3/uL [place] # (Auto) (0.1-1.2) X10*3/uL Eos # (Auto) (0.0-0.4) X10*3/uL Baso # (Auto) (0.0-0.2) X10*3/uL Abs Immat Gran (auto) (0.00-0.03) X10*3/uL Absolute Neuts (auto) (2.0-8.3) x10*3/uL Absolute Nucleated RBC (0.0-0.012) X10*3/uL Nucleated RBC % (auto) (0.0-0.2) /100WBC PT 10.8 (10.0-13.1) SEC INR 0.9 (0.9-1.1) VBG pH (7.32-7.43) VBG pCO2 mmHg VBG pO2 mmHg VBG HCO3 (22-26) mmol/L VBG O2 Saturation % VBG Base Excess mmol/L Sodium 139 (135-145) mmol/L Potassium 5.2 H D (3.3-5.1) mmol/L Chloride 103 (96-108) mmol/L Carbon Dioxide 16 L (22-29) mmol/L Anion Gap 25 H (12-20) BUN 94 H D (9-16) mg/dL Creatinine 3.58 H (0.5-1.4) mg/dL Estim Creat Clear Calc 13.3 Estimated GFR 13 POC Glucose 204 H (60-115) mg/dL Random Glucose 201 H (60-115) mg/dL Lactic Acid (0.5-2.0) mmol/L Lactic Acid F/U @ 2Hr (0.5-2.0) mmol/L Calcium 9.3 (8.4-10.2) mg/dL Magnesium 2.3 (1.6-2.6) mg/dL Total Bilirubin 0.3 (0.0-1.0) mg/dL AST 34 H (5-31) U/L ALT 30 (0-31) U/L Alkaline Phosphatase 188 H D (39-117) U/L Troponin I High Sens (<3.5-17.0) ng/L Total Protein 8.4 H (6.5-8.0) g/dL Albumin 4.0 (3.5-5.0) g/dL Urine Color Urine Appearance Urine pH (5.0-8.0) Ur Specific [place] (1.005-1.025) Urine Protein (Neg-Trace) mg/dL Urine Glucose (UA) (Negative) mg/dL Urine Ketones (Negative) mg/dL Urine Blood (Negative) Urine Nitrite (Negative) Ur Leukocyte Esterase (Negative) Urine RBC (0-2) /HPF Urine WBC (0-5) /HPF Urine WBC Clumps Ur Squamous Epith Cells (0-2) /HPF Ur Transition Epith Cell Ur Renal Epithelial Cell Urine Bacteria (None Seen) Hyaline Casts (0-2) /LPF Stool Occult Blood (NEGATIVE) C. difficile Tox B Gene (Negative) COVID-19 (KENJI) (Negative) COVID-19 Clin Com 07/13/22 07/13/22 07/13/22 Range/Units 21:30 21:30 21:30 WBC 16.4 H (4.8-10.8) X10*3/uL RBC 4.09 L (4.20-5.50) X10*6/uL Hgb 12.4 (12.0-16.0) g/dl Hct 38.8 (37.0-47.0) % MCV 94.9 (80.0-98.0) fL MCH 30.3 (27.0-33.0) pg MCHC 32.0 (31.0-35.0) g/dl RDW 13.6 (11.0-16.0) % Plt Count 314 (160-400) X10*3/uL MPV 11.2 (9.4-12.3) fL Immature Gran % (Auto) 0.8 H (0.0-0.4) % Neut % (Auto) 83.1 H (45-73) % Lymph % (Auto) 10.8 L (20-40) % [place] % (Auto) 4.2 (2-11) % Eos % (Auto) 0.9 (0-4) % Baso % (Auto) 0.2 (0-2) % Lymph # (Auto) 1.8 (1.2-4.9) X10*3/uL [place] # (Auto) 0.7 (0.1-1.2) X10*3/uL Eos # (Auto) 0.2 (0.0-0.4) X10*3/uL Baso # (Auto) 0.0 (0.0-0.2) X10*3/uL Abs Immat Gran (auto) 0.13 H (0.00-0.03) X10*3/uL Absolute Neuts (auto) 13.6 H (2.0-8.3) x10*3/uL Absolute Nucleated RBC 0.000 (0.0-0.012) X10*3/uL Nucleated RBC % (auto) 0.0 (0.0-0.2) /100WBC PT (10.0-13.1) SEC INR (0.9-1.1) VBG pH (7.32-7.43) VBG pCO2 mmHg VBG pO2 mmHg VBG HCO3 (22-26) mmol/L VBG O2 Saturation % VBG Base Excess mmol/L Sodium (135-145) mmol/L Potassium (3.3-5.1) mmol/L Chloride (96-108) mmol/L Carbon Dioxide (22-29) mmol/L Anion Gap (12-20) BUN (9-16) mg/dL Creatinine (0.5-1.4) mg/dL Estim Creat Clear Calc Estimated GFR POC Glucose (60-115) mg/dL Random Glucose (60-115) mg/dL Lactic Acid 4.3 H* (0.5-2.0) mmol/L Lactic Acid F/U @ 2Hr (0.5-2.0) mmol/L Calcium (8.4-10.2) mg/dL Magnesium (1.6-2.6) mg/dL Total Bilirubin (0.0-1.0) mg/dL AST (5-31) U/L ALT (0-31) U/L Alkaline Phosphatase (39-117) U/L Troponin I High Sens 41.6 H D (<3.5-17.0) ng/L Total Protein (6.5-8.0) g/dL Albumin (3.5-5.0) g/dL Urine Color Urine Appearance Urine pH (5.0-8.0) Ur Specific [place] (1.005-1.025) Urine Protein (Neg-Trace) mg/dL Urine Glucose (UA) (Negative) mg/dL Urine Ketones (Negative) mg/dL Urine Blood (Negative) Urine Nitrite (Negative) Ur Leukocyte Esterase (Negative) Urine RBC (0-2) /HPF Urine WBC (0-5) /HPF Urine WBC Clumps Ur Squamous Epith Cells (0-2) /HPF Ur Transition Epith Cell Ur Renal Epithelial Cell Urine Bacteria (None Seen) Hyaline Casts (0-2) /LPF Stool Occult Blood (NEGATIVE) C. difficile Tox B Gene (Negative) COVID-19 (KENJI) (Negative) COVID-19 Clin Com 07/13/22 07/13/22 07/13/22 Range/Units 21:30 21:46 21:57 WBC (4.8-10.8) X10*3/uL RBC (4.20-5.50) X10*6/uL Hgb (12.0-16.0) g/dl Hct (37.0-47.0) % MCV (80.0-98.0) fL MCH (27.0-33.0) pg MCHC (31.0-35.0) g/dl RDW (11.0-16.0) % Plt Count (160-400) X10*3/uL MPV (9.4-12.3) fL Immature Gran % (Auto) (0.0-0.4) % Neut % (Auto) (45-73) % Lymph % (Auto) (20-40) % [place] % (Auto) (2-11) % Eos % (Auto) (0-4) % Baso % (Auto) (0-2) % Lymph # (Auto) (1.2-4.9) X10*3/uL [place] # (Auto) (0.1-1.2) X10*3/uL Eos # (Auto) (0.0-0.4) X10*3/uL Baso # (Auto) (0.0-0.2) X10*3/uL Abs Immat Gran (auto) (0.00-0.03) X10*3/uL Absolute Neuts (auto) (2.0-8.3) x10*3/uL Absolute Nucleated RBC (0.0-0.012) X10*3/uL Nucleated RBC % (auto) (0.0-0.2) /100WBC PT (10.0-13.1) SEC INR (0.9-1.1) VBG pH 7.21 L (7.32-7.43) VBG pCO2 45 mmHg VBG pO2 50 mmHg VBG HCO3 18 L (22-26) mmol/L VBG O2 Saturation 69.0 % VBG Base Excess -8.9 mmol/L Sodium (135-145) mmol/L Potassium (3.3-5.1) mmol/L Chloride (96-108) mmol/L Carbon Dioxide (22-29) mmol/L Anion Gap (12-20) BUN (9-16) mg/dL Creatinine (0.5-1.4) mg/dL Estim Creat Clear Calc Estimated GFR POC Glucose 178 H (60-115) mg/dL Random Glucose (60-115) mg/dL Lactic Acid (0.5-2.0) mmol/L Lactic Acid F/U @ 2Hr (0.5-2.0) mmol/L Calcium (8.4-10.2) mg/dL Magnesium (1.6-2.6) mg/dL Total Bilirubin (0.0-1.0) mg/dL AST (5-31) U/L ALT (0-31) U/L Alkaline Phosphatase (39-117) U/L Troponin I High Sens (<3.5-17.0) ng/L Total Protein (6.5-8.0) g/dL Albumin (3.5-5.0) g/dL Urine Color Urine Appearance Urine pH (5.0-8.0) Ur Specific [place] (1.005-1.025) Urine Protein (Neg-Trace) mg/dL Urine Glucose (UA) (Negative) mg/dL Urine Ketones (Negative) mg/dL Urine Blood (Negative) Urine Nitrite (Negative) Ur Leukocyte Esterase (Negative) Urine RBC (0-2) /HPF Urine WBC (0-5) /HPF Urine WBC Clumps Ur Squamous Epith Cells (0-2) /HPF Ur Transition Epith Cell Ur Renal Epithelial Cell Urine Bacteria (None Seen) Hyaline Casts (0-2) /LPF Stool Occult Blood (NEGATIVE) C. difficile Tox B Gene (Negative) COVID-19 (KENJI) Negative (Negative) COVID-19 Clin Com See Note 07/13/22 07/14/22 07/14/22 Range/Units 22:00 00:06 00:35 WBC (4.8-10.8) X10*3/uL RBC (4.20-5.50) X10*6/uL Hgb (12.0-16.0) g/dl Hct (37.0-47.0) % MCV (80.0-98.0) fL MCH (27.0-33.0) pg MCHC (31.0-35.0) g/dl RDW (11.0-16.0) % Plt Count (160-400) X10*3/uL MPV (9.4-12.3) fL Immature Gran % (Auto) (0.0-0.4) % Neut % (Auto) (45-73) % Lymph % (Auto) (20-40) % [place] % (Auto) (2-11) % Eos % (Auto) (0-4) % Baso % (Auto) (0-2) % Lymph # (Auto) (1.2-4.9) X10*3/uL [place] # (Auto) (0.1-1.2) X10*3/uL Eos # (Auto) (0.0-0.4) X10*3/uL Baso # (Auto) (0.0-0.2) X10*3/uL Abs Immat Gran (auto) (0.00-0.03) X10*3/uL Absolute Neuts (auto) (2.0-8.3) x10*3/uL Absolute Nucleated RBC (0.0-0.012) X10*3/uL Nucleated RBC % (auto) (0.0-0.2) /100WBC PT (10.0-13.1) SEC INR (0.9-1.1) VBG pH (7.32-7.43) VBG pCO2 mmHg VBG pO2 mmHg VBG HCO3 (22-26) mmol/L VBG O2 Saturation % VBG Base Excess mmol/L Sodium (135-145) mmol/L Potassium (3.3-5.1) mmol/L Chloride (96-108) mmol/L Carbon Dioxide (22-29) mmol/L Anion Gap (12-20) BUN (9-16) mg/dL Creatinine (0.5-1.4) mg/dL Estim Creat Clear Calc Estimated GFR POC Glucose (60-115) mg/dL Random Glucose (60-115) mg/dL Lactic Acid (0.5-2.0) mmol/L Lactic Acid F/U @ 2Hr 3.3 H* (0.5-2.0) mmol/L Calcium (8.4-10.2) mg/dL Magnesium (1.6-2.6) mg/dL Total Bilirubin (0.0-1.0) mg/dL AST (5-31) U/L ALT (0-31) U/L Alkaline Phosphatase (39-117) U/L Troponin I High Sens (<3.5-17.0) ng/L Total Protein (6.5-8.0) g/dL Albumin (3.5-5.0) g/dL Urine Color Yellow Urine Appearance Cloudy Urine pH 5.0 (5.0-8.0) Ur Specific [place] 1.010 (1.005-1.025) Urine Protein Trace (Neg-Trace) mg/dL Urine Glucose (UA) Negative (Negative) mg/dL Urine Ketones Negative (Negative) mg/dL Urine Blood Negative (Negative) Urine Nitrite Negative (Negative) Ur Leukocyte Esterase Large (3+) H (Negative) Urine RBC 0-2 (0-2) /HPF Urine WBC >50 H (0-5) /HPF Urine WBC Clumps Present Ur Squamous Epith Cells 0-2 (0-2) /HPF Ur Transition Epith Cell Present Ur Renal Epithelial Cell Present Urine Bacteria 4+ (None Seen) Hyaline Casts 6-10 (0-2) /LPF Stool Occult Blood (NEGATIVE) C. difficile Tox B Gene POSITIVE A* (Negative) COVID-19 (KENJI) (Negative) COVID-19 Clin Com 07/14/22 Range/Units 00:35 WBC (4.8-10.8) X10*3/uL RBC (4.20-5.50) X10*6/uL Hgb (12.0-16.0) g/dl Hct (37.0-47.0) % MCV (80.0-98.0) fL MCH (27.0-33.0) pg MCHC (31.0-35.0) g/dl RDW (11.0-16.0) % Plt Count (160-400) X10*3/uL MPV (9.4-12.3) fL Immature Gran % (Auto) (0.0-0.4) % Neut % (Auto) (45-73) % Lymph % (Auto) (20-40) % [place] % (Auto) (2-11) % Eos % (Auto) (0-4) % Baso % (Auto) (0-2) % Lymph # (Auto) (1.2-4.9) X10*3/uL [place] # (Auto) (0.1-1.2) X10*3/uL Eos # (Auto) (0.0-0.4) X10*3/uL Baso # (Auto) (0.0-0.2) X10*3/uL Abs Immat Gran (auto) (0.00-0.03) X10*3/uL Absolute Neuts (auto) (2.0-8.3) x10*3/uL Absolute Nucleated RBC (0.0-0.012) X10*3/uL Nucleated RBC % (auto) (0.0-0.2) /100WBC PT (10.0-13.1) SEC INR (0.9-1.1) VBG pH (7.32-7.43) VBG pCO2 mmHg VBG pO2 mmHg VBG HCO3 (22-26) mmol/L VBG O2 Saturation % VBG Base Excess mmol/L Sodium (135-145) mmol/L Potassium (3.3-5.1) mmol/L Chloride (96-108) mmol/L Carbon Dioxide (22-29) mmol/L Anion Gap (12-20) BUN (9-16) mg/dL Creatinine (0.5-1.4) mg/dL Estim Creat Clear Calc Estimated GFR POC Glucose (60-115) mg/dL Random Glucose (60-115) mg/dL Lactic Acid (0.5-2.0) mmol/L Lactic Acid F/U @ 2Hr (0.5-2.0) mmol/L Calcium (8.4-10.2) mg/dL Magnesium (1.6-2.6) mg/dL Total Bilirubin (0.0-1.0) mg/dL AST (5-31) U/L ALT (0-31) U/L Alkaline Phosphatase (39-117) U/L Troponin I High Sens (<3.5-17.0) ng/L Total Protein (6.5-8.0) g/dL Albumin (3.5-5.0) g/dL Urine Color Urine Appearance Urine pH (5.0-8.0) Ur Specific [place] (1.005-1.025) Urine Protein (Neg-Trace) mg/dL Urine Glucose (UA) (Negative) mg/dL Urine Ketones (Negative) mg/dL Urine Blood (Negative) Urine Nitrite (Negative) Ur Leukocyte Esterase (Negative) Urine RBC (0-2) /HPF Urine WBC (0-5) /HPF Urine WBC Clumps Ur Squamous Epith Cells (0-2) /HPF Ur Transition Epith Cell Ur Renal Epithelial Cell Urine Bacteria (None Seen) Hyaline Casts (0-2) /LPF Stool Occult Blood POSITIVE (NEGATIVE) C. difficile Tox B Gene (Negative) COVID-19 (KENJI) (Negative) COVID-19 Clin Com ECG Data Attestation: I personally reviewed and interpreted this ECG as follows: Interpretation: Ventricular paced rhythm with ventricular rate 98 beats per minute no acute ST-T changes no acute ischemia Critical Care Time Critical Care Time Critical Care Time: Yes Total Critical Care Time: 60 Attestation: I spent 60 minutes of critical care, with interventions, assessments, speaking to patient, consultants, and family. Discharge Plan Discharge Clinical Impression: Sepsis, UTI (urinary tract infection), ISA (acute kidney injury), C. difficile colitis Patient Disposition: Admitted As Inpatient
--- NOTE | 2022-07-13 21:30 | PC.NURSE ---
PT ARRIVED VIA EMS, FOUND TO BE INCONTINENT OF LARGE AMOUNT OF STOOL, PT CLEAN AND REPOSITIONED, AND CONTINUES TO STOOL PROVIDER MADE AWARE
[2022-07-13 21:51] LABS: MANUAL DIFF FLAG NO
[2022-07-13 21:57] LABS: Basophils Percent Auto 0.2 % (0-2); Eosinophils Absolute Auto 0.2 X10*3/uL (0.0-0.4); Eosinophils Percent Auto 0.9 % (0-4); Hematocrit 38.8 % (37.0-47.0); Hemoglobin 12.4 g/dl (12.0-16.0); Imm Gran Abs Auto 0.13 X10*3/uL (0.00-0.03); Imm Gran Pct Auto 0.8 % (0.0-0.4); Lymphocytes Absolute Auto 1.8 X10*3/uL (1.2-4.9); Lymphocytes Percent Auto 10.8 % (20-40); Mean Corpuscular Hemoglobin 30.3 pg (27.0-33.0); Mean Corpuscular Volume 94.9 fL (80.0-98.0); Mean Platelet Volume 11.2 fL (9.4-12.3); Monocytes Absolute Auto 0.7 X10*3/uL (0.1-1.2); Monocytes Percent Auto 4.2 % (2-11); Neutrophils Absolute Auto 13.6 x10*3/uL (2.0-8.3); Neutrophils Percent Auto 83.1 % (45-73); Platelet Count 314 X10*3/uL (160-400); Red Blood Count 4.09 X10*6/uL (4.20-5.50); Red Cell Distribution Width 13.6 % (11.0-16.0); White Blood Count 16.4 X10*3/uL (4.8-10.8)
[2022-07-13] MEDS: 0.9 % Sodium Chloride 1,000 ML 999 ML IV ×2 (21:59→22:00)
--- NOTE | 2022-07-13 21:59 | ECG_ITS ---
Test Reason : LOW BP Blood Pressure : / mmHG Vent. Rate : 098 BPM Atrial Rate : 098 BPM P-R Int : 208 ms QRS Dur : 124 ms QT Int : 428 ms P-R-T Axes : 068 104 -84 degrees QTc Int : 546 ms Atrial-sensed ventricular-paced rhythm Abnormal ECG When compared with ECG of 17-JUN-2022 14:48, Vent. rate has increased BY 2 BPM Referred By: Jero Us Electronically Signed By:GLORIA PRUETT
[2022-07-13] MEDS: Midodrine HCl 10 MG TABLET PO (22:00)
[2022-07-13 22:02] LABS: VBG Base Excess -8.9 mmol/L; VBG HCO3 18 mmol/L (22-26); VBG pCO2 45 mmHg; VBG pH 7.21 (7.32-7.43); VBG pO2 50 mmHg
[2022-07-13 22:02] LABS: INTERNATIONAL NORM RATIO 0.9 (0.9-1.1); Prothrombin Time 10.8 SEC (10.0-13.1)
[2022-07-13 22:04] LABS: Glucose, Whole Blood 178 mg/dL (60-115)
[2022-07-13 22:04] LABS: Glucose, Whole Blood 204 mg/dL (60-115)
--- NOTE | 2022-07-13 22:07 | PC.NURSE ---
patient straight cathed for Urine, marine electronics technician Rudi assisting this nurse.
[2022-07-13 22:14] VITALS: BP 85/44; PULSE 96; RESP 14; TEMP 35.8; O2SAT 96
--- NOTE | 2022-07-13 22:14 | PC.NURSE ---
NOTED TEMP, PROVIDER AWARE, FLORA BEASLEY APPLIED TO PT
[2022-07-13 22:19] LABS: Appearance Urine Cloudy; Color Urine Yellow; Glucose Urine UA Negative (Negative); Leukocyte Esterase Urine Large (3+) (Negative); Nitrite Urine Negative (Negative); Urine Blood Negative (Negative); Urine Ketones Negative (Negative); Urine Protein Trace mg/dL (Neg-Trace)
[2022-07-13 22:23] LABS: Venous Blood Gas Refer to POC result
--- NOTE | 2022-07-13 22:25 | PC.NURSE ---
[facility] ,patient came in with incontinences of large pasty stool ,black in color patient was clean up ,then had large amount of liquid stool ,care given linen change ,temp was taken rectally ,temp was 96.4 provider said to put patient on bear hugger patent now resting in bed .
[2022-07-13 22:29] LABS: Lactic Acid 4.3 mmol/L (0.5-2.0)
[2022-07-13 22:30] LABS: Alanine Aminotransferase 30 U/L (0-31); Alkaline Phosphatase 188 U/L (39-117); Anion Gap 25 (12-20); Aspartate Amino Transferase 34 U/L (5-31); Bilirubin Total 0.3 mg/dL (0.0-1.0); Blood Urea Nitrogen 94 mg/dL (9-16); Calcium 9.3 mg/dL (8.4-10.2); Carbon Dioxide 16 mmol/L (22-29); Chloride 103 mmol/L (96-108); Creatinine Clr Calc Pharmacy 13.3; Estimated Glomerular Filt Rate 13; Glucose Random 201 mg/dL (60-115); Magnesium 2.3 mg/dL (1.6-2.6); Potassium 5.2 mmol/L (3.3-5.1); Sodium 139 mmol/L (135-145); Total Protein 8.4 g/dL (6.5-8.0)
[2022-07-13 22:32] LABS: Troponin-I High Sensitivity 41.6 ng/L (<3.5-17.0)
[2022-07-13 22:44] LABS: Bacteria Urine 4+ (None Seen); RBC Urine 0-2 /HPF (0-2); Renal Epithelial Cells Urine Present; Squamous Epithelial Cell Urine 0-2 /HPF (0-2); Transitional Epi Cells Urine Present; UACC Culture Trigger YES; WBC Clumps Urine Present; WBC Urine >50 /HPF (0-5)
[2022-07-13 22:52] LABS: COVID-19 Test Negative (Negative); IDNOW Serial# 55D5AD1C
[2022-07-13 23:27] VITALS: BP 105/53; PULSE 106; RESP 21; O2SAT 95
[2022-07-13 23:36] VITALS: BP 101/48; PULSE 105; RESP 19; O2SAT 94
[2022-07-13] MEDS: cefTRIAXone sodium 1 GM in 0.9 % Sodium Chloride 50 ML IV (23:36)
--- NOTE | 2022-07-13 23:41 | PC.NURSE ---
Addendum entered by Vera Watson 07/13/22 23:41: this rn made dr galvez aware of pt's BP and MAP, states hold dopamine at this time Original Note: this rn assisting primary rn. dr galvez to bedside while this rn at bedside medicating with rocephin per MAR. dr galvez states hold IV vanco, instead he will order PO vanco for ?c dif this rn to medicate per orders
--- NOTE | 2022-07-13 23:44 | PC.NURSE ---
PT BEING TAKEN TO CAT SCAN NOW
[2022-07-13 23:48] LABS: Reflex Lactate? Lactic Acid Added
[2022-07-14] VITALS (10 sets, daily range): BP systolic 91–154; BP diastolic 43–61; PULSE 85–110; RESP 12–18; TEMP 35.6–38; O2SAT 93–100
[2022-07-14] MEDS: vancomycin HCL 125 MG CAPSULE PO (00:07)
[2022-07-14 00:28] LABS: ~Lactic Acid-LAB USE ONLY 3.3 mmol/L (0.5-2.0)
[2022-07-14] MEDS: metroNIDAZOLE/NS 500 MG/100 ML PIGGYBACK 100 MG IV (00:35)
[2022-07-14 00:39] LABS: OBS Int Ctl Valid YES; OBS1 POSITIVE (NEGATIVE)
[2022-07-14] MEDS: Pantoprazole Sodium 40 MG/10 ML VIAL IVPUSH (00:41)
[2022-07-14 01:31] LABS: CDiff Gene PCR POSITIVE (Negative)
--- NOTE | 2022-07-14 02:01 | PC.NURSE ---
PATIENT WAS INC OF LARGE AMOUNT OF LOOSE STOOL ,CARE GIVEN BY MYSELF AND PCT SERENITY ,BEDDING CHANGE .
[2022-07-14 02:08] LABS: Reflex Lactate? 2 Y
[2022-07-14] MEDS: 0.9 % Sodium Chloride 1,000 ML 125 ML IVCONT (02:15)
[2022-07-14 02:21] LABS: CDiff Toxin Negative (Negative)
[2022-07-14 02:22] LABS: CDIFF Internal ctrl Dots and bkg OK (V)
[2022-07-14 02:45] LABS: ~Lactic Acid-LAB USE ONLY 2.3 mmol/L (0.5-2.0)
--- NOTE | 2022-07-14 03:00 | PC.NURSE ---
Pt temp 100.6, Dr Sandoval made aware. V/o for 650mg tylenol PO
[2022-07-14] MEDS: Acetaminophen 325 MG TABLET 650 MG PO (03:09)
[2022-07-14] MEDS: Lactated Ringers 1,000 ML 100 ML IVCONT ×3 (03:38→23:08)
--- NOTE | 2022-07-14 03:53 | PC.NURSE ---
PATIENT WAS INC OF MODERATE AMOUNT OF STOOL ,CARE GIVEN BEDDING CHANGE .
[2022-07-14 04:54] LABS: Basophils Percent Auto 0.1 % (0-2); Hematocrit 31.6 % (37.0-47.0); Hemoglobin 10.2 g/dl (12.0-16.0); Imm Gran Abs Auto 0.13 X10*3/uL (0.00-0.03); Imm Gran Pct Auto 0.6 % (0.0-0.4); Lymphocytes Absolute Auto 1.2 X10*3/uL (1.2-4.9); Lymphocytes Percent Auto 5.1 % (20-40); MANUAL DIFF FLAG SCAN; Mean Corpuscular HGB Conc 32.3 g/dl (31.0-35.0); Mean Corpuscular Hemoglobin 30.5 pg (27.0-33.0); Mean Corpuscular Volume 94.6 fL (80.0-98.0); Mean Platelet Volume 10.4 fL (9.4-12.3); Monocytes Percent Auto 4.6 % (2-11); Neutrophils Absolute Auto 20.1 x10*3/uL (2.0-8.3); Neutrophils Percent Auto 89.6 % (45-73); Platelet Count 231 X10*3/uL (160-400); Red Blood Count 3.34 X10*6/uL (4.20-5.50); Red Cell Distribution Width 13.8 % (11.0-16.0); SCAN SMEAR FLAG 1; White Blood Count 22.5 X10*3/uL (4.8-10.8)
[2022-07-14 05:14] LABS: SLIDE REVIEW VERIFIED
[2022-07-14 05:23] LABS: Anion Gap 18 (12-20); Blood Urea Nitrogen 94 mg/dL (9-16); Calcium 7.6 mg/dL (8.4-10.2); Carbon Dioxide 17 mmol/L (22-29); Chloride 110 mmol/L (96-108); Creatinine Clr Calc Pharmacy 13.3; Estimated Glomerular Filt Rate 13; Glucose Random 269 mg/dL (60-115); Potassium 4.7 mmol/L (3.3-5.1); Sodium 140 mmol/L (135-145)
[2022-07-14] MEDS: Lactated Ringers 1,000 ML 999 ML IV (05:31)
--- NOTE | 2022-07-14 05:35 | P.HPHOSP_ITS ---
History of Present Illness Date of Service: 07/14/22 Chief Complaint: diarrhea 62-year-old female with an extensive past medical history of hypertension, hyperlipidemia, diabetes, gastroparesis, CAD status post CABG, CVA, heart failure preserved ejection fraction, DPM, COPD, history process, CKD, among others with frequent admissions to the hospital presents to the hospital with complaints diarrhea. Patient reports that she has had more than 5-10 episodes of diarrhea daily for the past 2 days, not associated with any abdominal pain, no nausea or vomiting. nonbloody. No previous similar episode. Patient denies any fever or chills, no chest pain, no urinary symptoms at this time cleaning no dysuria frequency or urgency and no lower extremity edema. On arrival to the ED patient hemodynamically stable with hypotension with blood pressure of 85/44. Lab significant for WBC count of 16.4, sodium 139, potassium 5.2, bicarb of 16, BUN of 94, creatinine of 3.58 with a baseline around 2.1, lactic acid of 4.3 that improved with IV fluids, UA positive for leukocytes and WBC, C diff toxin positive. She also has positive stool Occult Denies any melena, no hematochezia. CT abdomen pelvis shows thick-walled appearance of the sigmoid colon and rectum suspicious for colitis and proctitis Patient will be admitted for further management Review of Systems Review of Systems: Yes all other systems are reviewed and are negative [facility] Medical History Acute heart failure with preserved ejection fraction Anemia Anxiety Arthritis Cardiac pacemaker in situ Carpal tunnel syndrome CHF (congestive heart failure) Chronic heart failure with preserved ejection fraction (HFpEF) COPD exacerbation Coronary artery disease CVA (cerebral vascular accident) Diabetes Diabetic gastroparesis Fall Gastritis Gastroparesis Gastroparesis GERD (gastroesophageal reflux disease) Headache Heart failure with preserved ejection fraction HLD (hyperlipidemia) HTN (hypertension) HTN (hypertension) Hypocalcemia Hypoxia IBS (irritable bowel syndrome) Knee pain, left Myocardial infarct Nausea and vomiting Orthostasis Renal failure Suprapatellar effusion of knee T2DM (type 2 diabetes mellitus) UTI (urinary tract infection) Family History Father No problems noted. Mother Diabetes Hypercholesteremia Hypertension Stroke Surgical History H/O Achilles tendon repair History of appendectomy History of bladder surgery History of carpal tunnel release History of total hysterectomy with bilateral salpingo-oophorectomy (BSO) Hx of amputation Hx of CABG (~2018) Hx of cholecystectomy Hx of endoscopy Hx of knee surgery Hx of tonsillectomy Social History Household Members: Family Household Members Other:: 1 Housing: Apartment Do you presently have visiting nurse or other home services: Yes Alcohol intake: unknown Patient Tobacco Use Status: Former Tobacco user Years Smoked: 20 Second Hand Smoke Exposure: No Use of substances other than those prescribed or required for medical reasons: Unknown Advance Directives: Yes Advance Directives on File: Yes Advance Directives Date on File: 01/13/22 Patient : No service: No Current occupational status: disabled Meds Allergies Allergy/AdvReac Type Severity Reaction Status Date / Time tetracycline [Tetracycline] Allergy Mild HIVES, Verified 05/04/22 13:14 anaphylaxis, anaphylaxis Active Medications: Current Medications Acetaminophen (Acetaminophen 325 Mg Tablet) 650 mg PO Q6H PRN PRN Reason: Pain, Mild (Pain Scale 1-3) Ceftriaxone Sodium 1 gm/ (Sodium Chloride) 50 mls @ 100 mls/hr IV Q24H [facility] Lactated Ringer's (Lr) 1,000 mls @ 100 mls/hr IVCONT .Q10H [facility] Last Admin: 07/14/22 03:38 Dose: 100 mls/hr Lactated Ringer's (Lr) 1,000 mls @ 999 mls/hr IV .Q1H1M [facility] Stop: 07/14/22 06:30 Last Admin: 07/14/22 05:31 Dose: 999 mls/hr Lactated Ringer's (Lr) 1,000 mls @ 999 mls/hr IV .Q1H1M [facility] Stop: 07/14/22 06:45 Ondansetron HCl (Ondansetron Hcl 4 Mg/2 Ml Vial) 4 mg IVPUSH Q8H PRN PRN Reason: Nausea and Vomiting Sodium Chloride (0.9 % Sodium Chloride Flush 3 Ml Syringe) 3 ml IVFLUSH QSHIFT [facility] Vancomycin HCl (Vancomycin Hcl 125 Mg Capsule) 250 mg PO Q6H [facility] Home Medications Medication Instructions Recorded Confirmed Last Taken Type aspirin 81 mg tablet,delayed 1 tab PO DAILY 07/14/22 07/14/22 Unknown History release atorvastatin 80 mg tablet 1 tab PO DAILY 07/14/22 07/14/22 Unknown History blood sugar diagnostic (FreeStyle 07/14/22 07/14/22 Unknown History Lite Strips) cetirizine 10 mg tablet 1 tab PO DAILY 07/14/22 07/14/22 Unknown History cholecalciferol (vitamin D3) 25 1 cap PO DAILY 07/14/22 07/14/22 Unknown History mcg (1,000 unit) capsule ferrous sulfate 325 mg (65 mg 1 tab PO DAILY 07/14/22 07/14/22 Unknown History iron) tablet (FeroSul) gabapentin 100 mg capsule cap PO 07/14/22 Unknown History hydrocortisone 2.5 % topical cream appl topical 07/14/22 Unknown History insulin aspart U-100 100 unit/mL ea subcut 07/14/22 Unknown History (3 mL) subcutaneous pen (Novolog Flexpen U-100 Insulin aspart) insulin degludec 100 unit/mL (3 ea subcut 07/14/22 Unknown History mL) subcutaneous pen (Tresiba FlexTouch U-100 insulin) isosorbide dinitrate 10 mg tablet tab PO DAILY PRN unknown 07/14/22 Unknown History isosorbide mononitrate 30 mg 1 tab PO DAILY 07/14/22 07/14/22 Unknown History tablet,extended release 24 hr linagliptin 5 mg tablet (Tradjenta) 1 tab PO DAILY 07/14/22 07/14/22 Unknown History lisinopril 5 mg tablet 1 tab PO DAILY 07/14/22 07/14/22 Unknown History lorazepam 0.5 mg tablet 1 tab PO BID PRN Anxiety 07/14/22 07/14/22 Unknown History melatonin 5 mg tablet 1 tab PO BEDTIME 07/14/22 07/14/22 Unknown History metoclopramide HCl 5 mg tablet 1 tab PO TID 07/14/22 07/14/22 Unknown History nystatin 100,000 unit/gram topical 1 applic topical BID-TID 07/14/22 07/14/22 Unknown History powder (Nystop) pantoprazole 40 mg tablet,delayed 1 tab PO BID 07/14/22 07/14/22 Unknown History release sodium zirconium cyclosilicate 5 ea PO 07/14/22 Unknown History gram oral powder packet (Lokelma) trazodone 50 mg tablet 0.5 tab PO BEDTIME PRN Insomnia 07/14/22 07/14/22 Unknown History Physical Exam Vital Signs and Narrative: Vital Signs: Last Vital Signs Temp 99.9 F 07/14/22 05:30 Pulse 99 07/14/22 05:29 Resp 13 07/14/22 05:29 BP 91/45 L 07/14/22 05:29 Pulse Ox 97 07/14/22 05:29 O2 Del Method 07/14/22 05:29 O2 Flow Rate 2 07/14/22 05:29 BMI result Body Mass Index 30.2 Const: General: cooperative and no acute distress Orientation/consciousness: patient oriented x3 Eyes: General: appearance normal, both eyes and all related structures Resp: Effort & Inspection: normal respiratory effort and able to speak in complete sentences Auscultation: clear to auscultation bilaterally Cardio: Rate: regular rate Rhythm: regular rhythm GI: Other: abdomen slightly diffusely tender, no rebound or guarding Palpation (GI): S oft to palpation Auscultation: normal bowel sounds Skin: General skin exam: no rashes or lesions noted Neuro: General: patient oriented x3 Cognition (Neuro): normal cognition Extrem: General: Yes normal to inspection and Yes no pedal edema Results Labs CBC and Chem 7: 07/14/22 04:49 07/14/22 04:49 Labs: Laboratory Results - last 24 hr 07/13/22 07/13/22 07/13/22 21:03 21:29 21:29 MCV MCH MCHC RDW Plt Count MPV Immature Gran % (Auto) Neut % (Auto) Lymph % (Auto) [place] % (Auto) Eos % (Auto) Baso % (Auto) Lymph # (Auto) [place] # (Auto) Eos # (Auto) Baso # (Auto) Abs Immat Gran (auto) Absolute Neuts (auto) Absolute Nucleated RBC Nucleated RBC % (auto) Smear Tech's Comments PT 10.8 INR 0.9 VBG pH VBG pCO2 VBG pO2 VBG HCO3 VBG O2 Saturation VBG Base Excess Anion Gap 25 H Estim Creat Clear Calc 13.3 Estimated GFR 13 POC Glucose 204 H Random Glucose 201 H Lactic Acid Lactic Acid F/U @ 2Hr Lactic Acid F/U @ 4Hr Calcium 9.3 Magnesium 2.3 Total Bilirubin 0.3 AST 34 H ALT 30 Alkaline Phosphatase 188 H D Total Protein 8.4 H Albumin 4.0 Urine Color Urine Appearance Urine pH Ur Specific [place] Urine Protein Urine Glucose (UA) Urine Ketones Urine Blood Urine Nitrite Ur Leukocyte Esterase Urine RBC Urine WBC Urine WBC Clumps Ur Squamous Epith Cells Ur Transition Epith Cell Ur Renal Epithelial Cell Urine Bacteria Hyaline Casts Stool Occult Blood C. difficile Tox B Gene C. difficile Toxin A&B C. difficile Interpret COVID-19 (KENJI) COVID-19 Clin Com 07/13/22 07/13/22 07/13/22 21:30 21:30 21:30 MCV 94.9 MCH 30.3 MCHC 32.0 RDW 13.6 Plt Count 314 MPV 11.2 Immature Gran % (Auto) 0.8 H Neut % (Auto) 83.1 H Lymph % (Auto) 10.8 L [place] % (Auto) 4.2 Eos % (Auto) 0.9 Baso % (Auto) 0.2 Lymph # (Auto) 1.8 [place] # (Auto) 0.7 Eos # (Auto) 0.2 Baso # (Auto) 0.0 Abs Immat Gran (auto) 0.13 H Absolute Neuts (auto) 13.6 H Absolute Nucleated RBC 0.000 Nucleated RBC % (auto) 0.0 Smear Tech's Comments PT INR VBG pH VBG pCO2 VBG pO2 VBG HCO3 VBG O2 Saturation VBG Base Excess Anion Gap Estim Creat Clear Calc Estimated GFR POC Glucose Random Glucose Lactic Acid 4.3 H* Lactic Acid F/U @ 2Hr Lactic Acid F/U @ 4Hr Calcium Magnesium Total Bilirubin AST ALT Alkaline Phosphatase Total Protein Albumin Urine Color Urine Appearance Urine pH Ur Specific [place] Urine Protein Urine Glucose (UA) Urine Ketones Urine Blood Urine Nitrite Ur Leukocyte Esterase Urine RBC Urine WBC Urine WBC Clumps Ur Squamous Epith Cells Ur Transition Epith Cell Ur Renal Epithelial Cell Urine Bacteria Hyaline Casts Stool Occult Blood C. difficile Tox B Gene C. difficile Toxin A&B C. difficile Interpret COVID-19 (KENJI) Negative COVID-Kri[facility]ari Com See Note 07/13/22 07/13/22 07/13/22 21:46 21:57 22:00 MCV MCH MCHC RDW Plt Count MPV Immature Gran % (Auto) Neut % (Auto) Lymph % (Auto) [place] % (Auto) Eos % (Auto) Baso % (Auto) Lymph # (Auto) [place] # (Auto) Eos # (Auto) Baso # (Auto) Abs Immat Gran (auto) Absolute Neuts (auto) Absolute Nucleated RBC Nucleated RBC % (auto) Smear Tech's Comments PT INR VBG pH 7.21 L VBG pCO2 45 VBG pO2 50 VBG HCO3 18 L VBG O2 Saturation 69.0 VBG Base Excess -8.9 Anion Gap Estim Creat Clear Calc Estimated GFR POC Glucose 178 H Random Glucose Lactic Acid Lactic Acid F/U @ 2Hr Lactic Acid F/U @ 4Hr Calcium Magnesium Total Bilirubin AST ALT Alkaline Phosphatase Total Protein Albumin Urine Color Yellow Urine Appearance Cloudy Urine pH 5.0 Ur Specific [place] 1.010 Urine Protein Trace Urine Glucose (UA) Negative Urine Ketones Negative Urine Blood Negative Urine Nitrite Negative Ur Leukocyte Esterase Large (3+) H Urine RBC 0-2 Urine WBC >50 H Urine WBC Clumps Present Ur Squamous Epith Cells 0-2 Ur Transition Epith Cell Present Ur Renal Epithelial Cell Present Urine Bacteria 4+ Hyaline Casts 6-10 Stool Occult Blood C. difficile Tox B Gene C. difficile Toxin A&B C. difficile Interpret COVID-19 (KENJI) COVID-19 Clin Com 07/14/22 07/14/22 07/14/22 00:06 00:35 00:35 MCV MCH MCHC RDW Plt Count MPV Immature Gran % (Auto) Neut % (Auto) Lymph % (Auto) [place] % (Auto) Eos % (Auto) Baso % (Auto) Lymph # (Auto) [place] # (Auto) Eos # (Auto) Baso # (Auto) Abs Immat Gran (auto) Absolute Neuts (auto) Absolute Nucleated RBC Nucleated RBC % (auto) Smear Tech's Comments PT INR VBG pH VBG pCO2 VBG pO2 VBG HCO3 VBG O2 Saturation VBG Base Excess Anion Gap Estim Creat Clear Calc Estimated GFR POC Glucose Random Glucose Lactic Acid Lactic Acid F/U @ 2Hr 3.3 H* Lactic Acid F/U @ 4Hr Calcium Magnesium Total Bilirubin AST ALT Alkaline Phosphatase Total Protein Albumin Urine Color Urine Appearance Urine pH Ur Specific [place] Urine Protein Urine Glucose (UA) Urine Ketones Urine Blood Urine Nitrite Ur Leukocyte Esterase Urine RBC Urine WBC Urine WBC Clumps Ur Squamous Epith Cells Ur Transition Epith Cell Ur Renal Epithelial Cell Urine Bacteria Hyaline Casts Stool Occult Blood POSITIVE C. difficile Tox B Gene POSITIVE A* C. difficile Toxin A&B Negative C. difficile Interpret SEE NOTE COVID-19 ([facility]JI) COVID-19 [employer] 07/14/22 07/14/22 07/14/22 02:20 04:49 04:49 MCV 94.6 MCH 30.5 MCHC 32.3 RDW 13.8 Plt Count 231 D MPV 10.4 Immature Gran % (Auto) 0.6 H Neut % (Auto) 89.6 H Lymph % (Auto) 5.1 L [place] % (Auto) 4.6 Eos % (Auto) 0.0 Baso % (Auto) 0.1 Lymph # (Auto) 1.2 [place] # (Auto) 1.0 Eos # (Auto) 0.0 Baso # (Auto) 0.0 Abs Immat Gran (auto) 0.13 H Absolute Neuts (auto) 20.1 H Absolute Nucleated RBC 0.000 Nucleated RBC % (auto) 0.0 Smear Tech's Comments VERIFIED PT INR VBG pH VBG pCO2 VBG pO2 VBG HCO3 VBG O2 Saturation VBG Base Excess Anion Gap 18 Estim Creat Clear Calc 13.3 Estimated GFR 13 POC Glucose Random Glucose 269 H Lactic Acid Lactic Acid F/U @ 2Hr Lactic Acid F/U @ 4Hr 2.3 H* Calcium 7.6 L D Magnesium Total Bilirubin AST ALT Alkaline Phosphatase Total Protein Albumin Urine Color Urine Appearance Urine pH Ur Specific [place] Urine Protein Urine Glucose (UA) Urine Ketones Urine Blood Urine Nitrite Ur Leukocyte Esterase Urine RBC Urine WBC Urine WBC Clumps Ur Squamous Epith Cells Ur Transition Epith Cell Ur Renal Epithelial Cell Urine Bacteria Hyaline Casts Stool Occult Blood C. difficile Tox B Gene C. difficile Toxin A&B C. difficile Interpret COVID-19 (KENJI) COVID-19 [employer] [facility] Radiologist's Impressions: Impressions Abdomen/Pelvis CT 07/13/22 23:58 IMPRESSION: Thick-walled appearance of the sigmoid colon and rectum, suspicious for colitis and proctitis. Assessment and Plan (1) Sepsis: Status: Acute (2) UTI (urinary tract infection): Status: Acute (3) ISA (acute kidney injury): Status: Acute (4) C. difficile colitis: Status: Acute (5) Diarrhea: Status: Acute (6) Positive occult stool blood test: Status: Acute Plan 62-year-old female with extensive past medical history presents to the hospital with complaints of diarrhea found to have C diff colitis # C diff colitis - likely in the setting of recent hospitalization - no evidence of megacolon, or hemodynamic instability - CT pelvic abdomen shows colitis of the sigmoid colon - at this time will start patient on vancomycin p.o. - infectious disease consulted # sepsis - has elevated lactic acid, leukocytosis, hypotensive - likely multifactorial in the setting of severe diarrhea as well as colitis and UTI - patient treated with IV fluids, will continue the IV resuscitation - IV antibiotics - follow cultures - infectious disease consult # ISA on CKD - likely secondary to above in the setting of dehydration and sepsis - IV fluids - follow BMP # positive occult blood test - secondary to acute colitis - no hemodynamically significant bleed - no significant drop in hemoglobin - follow CBC - GI consult as patient is on antiplatelet therapy - will continue double antiplatelet therapy given her history of recent NSTEMI # lactic acidosis - secondary to above - improved with IV fluids - continue maintenance fluid # history of CAD status post NSTEMI in April - given her high risk profile, will continue antiplatelet therapy at this time unless she develops a large GI ble - consult GI as well as Cardiology # hypertension - low - received IV fluids - will hold antihypertensives # diabetes - low-dose sliding scale insulin # HLD, prior CVA - continue statin, ASA # chronic heart failure with preserved ejection fraction - will hold furosemide in the setting of ISA - Mr. Respiratory status # history of gastroparesis - continue metoclopramide DVT prophylaxis: SCDs patient requires Min 2 night hospital stay for treatment of complicated C diff, sepsis Quality Stroke Does the patient have a stroke diagnosis?: No VTE Prior VTE?: No VTE Risk Level:: Medical - moderate - high VTE Device Contraindication: N/A - Device Ordered VTE Drug Contraindication: Treatment Not Indicated
[2022-07-14] MEDS: vancomycin HCL 125 MG CAPSULE 250 MG PO ×3 (06:05→18:10)
--- NOTE | 2022-07-14 06:37 | PM.GICN ---
History of Present Illness Data of Consult Service Date: 07/14/22 Requesting physician: Dg Sandoval Primary Care Provider: Unknown Physician HPI Reason for consult: colitis 62-year-old female w/ hx of hypertension, hyperlipidemia, diabetes, gastroparesis, CAD status post CABG, CVA, heart failure preserved ejection fraction, DPM, COPD, history process, CKD, who I am seeing for assessment for colitis. She presents this time with excessive non bloody diarrheal sx for 2 d with 5-10 episodes of diarrhea daily. NO abdominal pain, no nausea or vomiting, denies any fever or chills, no chest pain, no dysuria frequency or urgency and no lower extremity edema. She had stool sample sent which was pos for c diff. Imaging with thick-walled appearance of the sigmoid colon and rectum suspicious for colitis and proctitis, thick walled bladder as well LABS:WBC count of 16.4, sodium 139, potassium 5.2, bicarb of 16, BUN of 94, creatinine of 3.58 with a baseline around 2.1, lactic acid of 4.3 that improved with IV fluids, UA positive for leukocytes and WBC, C diff toxin positive. she is on aspirin and plavix for recent nstemi. Review of Systems Review of Systems: Constitutional : No Weight loss, No Fever, No Chills ENT/Mouth : No sore throat, No Rhinorrhea Eyes: No Swelling, No Redness Cardiovascular : No Chest Pain, No SOB, No Edema Respiratory : No Cough, No Sputum, No Wheezing Gastrointestinal : see HPI Genitourinary : NO Dysuria, No Urinary Frequency, No Hematuria, No Urgency Musculoskeletal : No joint pain, No Myalgias, No Joint Swelling Skin : No Skin Lesions, No rash Neuro : No Weakness, No Numbness, No Dizziness, No Headache Psych : No Anxiety/Panic, No Depression Heme/Lymph: No Bruising, No Lymphadenopathy Endocrine : No Polyuria, No Polydipsia All other systems reviewed and are negative. Yes all other systems are reviewed and are negative [facility] Past Medical History Medical History (Updated 07/14/22 @ 10:17 by Brian Wilkins MD) Acute heart failure with preserved ejection fraction Anemia Anxiety Arthritis Cardiac pacemaker in situ Carpal tunnel syndrome CHF (congestive heart failure) Chronic heart failure with preserved ejection fraction (HFpEF) COPD exacerbation Coronary artery disease CVA (cerebral vascular accident) Diabetes Diabetic gastroparesis Fall Gastritis Gastroparesis Gastroparesis GERD (gastroesophageal reflux disease) Headache Heart failure with preserved ejection fraction HLD (hyperlipidemia) HTN (hypertension) HTN (hypertension) Hypocalcemia Hypoxia IBS (irritable bowel syndrome) Knee pain, left Myocardial infarct Nausea and vomiting Orthostasis Renal failure Suprapatellar effusion of knee T2DM (type 2 diabetes mellitus) UTI (urinary tract infection) Family History Family History Father No problems noted. Mother Diabetes Hypercholesteremia Hypertension Stroke Surgical History Surgical History H/O Achilles tendon repair History of appendectomy History of bladder surgery History of carpal tunnel release History of total hysterectomy with bilateral salpingo-oophorectomy (BSO) Hx of amputation Hx of CABG (~2018) Hx of cholecystectomy Hx of endoscopy Hx of knee surgery Hx of tonsillectomy Social History Social History Household Members: Family Household Members Other:: 1 Housing: Apartment Do you presently have visiting nurse or other home services: Yes Alcohol intake: unknown Patient Tobacco Use Status: Former Tobacco user Years Smoked: 20 Second Hand Smoke Exposure: No Use of substances other than those prescribed or required for medical reasons: Unknown Advance Directives: Yes Advance Directives on File: Yes Advance Directives Date on File: 01/13/22 Patient : No service: No Current occupational status: disabled Meds Allergies Allergy/AdvReac Type Severity Reaction Status Date / Time tetracycline [Tetracycline] Allergy Mild HIVES, Verified 05/04/22 13:14 anaphylaxis, anaphylaxis Active Medications: Current Medications Acetaminophen (Acetaminophen 325 Mg Tablet) 650 mg PO Q6H PRN PRN Reason: Pain, Mild (Pain Scale 1-3) Ceftriaxone Sodium 1 gm/ (Sodium Chloride) 50 mls @ 100 mls/hr IV Q24H LAW Lactated Ringer's (Lr) 1,000 mls @ 100 mls/hr IVCONT .Q10H LAW Last Admin: 07/14/22 03:38 Dose: 100 mls/hr Lactated Ringer's (Lr) 1,000 mls @ 999 mls/hr IV .Q1H1M [facility] Stop: 07/14/22 06:45 Last Admin: 07/14/22 05:39 Dose: Not Given Ondansetron HCl (Ondansetron Hcl 4 Mg/2 Ml Vial) 4 mg IVPUSH Q8H PRN PRN Reason: Nausea and Vomiting Pharmacy Consult (Consult Rx Perform Med Rec) 1 each MISCELLANE ONCE PRN PRN Reason: Consult order Sodium Chloride (0.9 % Sodium Chloride Flush 3 Ml Syringe) 3 ml IVFLUSH QSHIFT [facility] Vancomycin HCl (Vancomycin Hcl 125 Mg Capsule) 250 mg PO Q6H [facility] Last Admin: 07/14/22 06:05 Dose: 250 mg Home Medications Medication Instructions Recorded Confirmed Last Taken Type allopurinol 100 mg tablet 1 tab PO DAILY 07/14/22 07/14/22 Unknown History aspirin 81 mg tablet,delayed 1 tab PO DAILY 07/14/22 07/14/22 Unknown History release atorvastatin 80 mg tablet 1 tab PO BEDTIME 07/14/22 07/14/22 Unknown History blood sugar diagnostic (FreeStyle 07/14/22 07/14/22 Unknown History Lite Strips) cetirizine 10 mg tablet 1 tab PO DAILY 07/14/22 07/14/22 Unknown History cholecalciferol (vitamin D3) 25 1 cap PO DAILY 07/14/22 07/14/22 Unknown History mcg (1,000 unit) capsule clopidogrel 75 mg tablet 1 tab PO DAILY 07/14/22 07/14/22 Unknown History ferrous sulfate 325 mg (65 mg 1 tab PO DAILY 07/14/22 07/14/22 Unknown History iron) tablet (FeroSul) furosemide 40 mg tablet 1 tab PO DAILY 07/14/22 07/14/22 Unknown History gabapentin 100 mg capsule 2 cap PO TID 07/14/22 07/14/22 Unknown History hydralazine 25 mg tablet 1 tab PO BEDTIME 07/14/22 07/14/22 Unknown History insulin aspart U-100 100 unit/mL 8 unit subcut TIDAC 07/14/22 07/14/22 Unknown History (3 mL) subcutaneous pen (Novolog Flexpen U-100 Insulin aspart) insulin degludec 100 unit/mL (3 32 unit subcut DAILY 07/14/22 07/14/22 Unknown History mL) subcutaneous pen (Tresiba FlexTouch U-100 insulin) isosorbide mononitrate 30 mg 1 tab PO DAILY 07/14/22 07/14/22 Unknown History tablet,extended release 24 hr linagliptin 5 mg tablet (Tradjenta) 1 tab PO DAILY 07/14/22 07/14/22 Unknown History lisinopril 5 mg tablet 1 tab PO BEDTIME 07/14/22 07/14/22 Unknown History lorazepam 0.5 mg tablet 1 tab PO BID PRN Anxiety 07/14/22 07/14/22 Unknown History melatonin 5 mg tablet 1 tab PO BEDTIME 07/14/22 07/14/22 Unknown History meloxicam 7.5 mg tablet 1 tab PO DAILY 07/14/22 07/14/22 Unknown History metoclopramide HCl 5 mg tablet 1 tab PO TID 07/14/22 07/14/22 Unknown History metoprolol succinate 25 mg 1 tab PO BID 07/14/22 07/14/22 Unknown History tablet,extended release 24 hr nystatin 100,000 unit/gram topical 1 applic topical BID-TID 07/14/22 07/14/22 Unknown History powder (Nystop) pantoprazole 40 mg tablet,delayed 1 tab PO BID 07/14/22 07/14/22 Unknown History release sodium zirconium cyclosilicate 5 1 ea PO Q48H 07/14/22 07/14/22 Unknown History gram oral powder packet (Lokelma) tamsulosin 0.4 mg capsule 1 cap PO DAILY 07/14/22 07/14/22 Unknown History trazodone 50 mg tablet 0.5 tab PO BEDTIME PRN Insomnia 07/14/22 07/14/22 Unknown History Physical Exam Vital Signs: Vital Signs: Last Vital Signs Temp 99.3 F 07/14/22 06:01 Pulse 98 07/14/22 06:01 Resp 12 07/14/22 06:01 BP 104/43 L 07/14/22 06:01 Pulse Ox 99 07/14/22 06:01 O2 Del Method 07/14/22 06:01 O2 Flow Rate 2 07/14/22 06:01 BMI result Body Mass Index 30.2 Const: General: cooperative, no acute distress and ill appearing Orientation/consciousness: patient oriented x3 Eyes: General: appearance normal, both eyes and all related structures Resp: Effort & Inspection: normal respiratory effort and able to speak in complete sentences Auscultation: clear to auscultation bilaterally Cardio: Rate: regular rate Rhythm: regular rhythm GI: Other: abdomen slightly diffusely tender, no rebound or guarding Palpation (GI): Soft to palpation Auscultation: normal bowel sounds Skin: General skin exam: no rashes or lesions noted Neuro: General: patient oriented x3 Cognition (Neuro): normal cognition Extrem: General: Yes normal to inspection and Yes no pedal edema Results Labs CBC & Chem 7: 07/14/22 04:49 07/14/22 04:49 Labs: Short CBC 07/13/22 07/14/22 Range/Units 21:30 04:49 WBC 16.4 H 22.5 H (4.8-10.8) X10*3/uL Hgb 12.4 10.2 L (12.0-16.0) g/dl Hct 38.8 31.6 L (37.0-47.0) % Plt Count 314 231 D (160-400) X10*3/uL BMP 07/13/22 07/14/22 21:29 04:49 Sodium 139 140 Potassium 5.2 H D 4.7 Chloride 103 110 H Carbon Dioxide 16 L 17 L BUN 94 H D 94 H Creatinine 3.58 H 3.59 H Calcium 9.3 7.6 L D Liver Function 07/13/22 Range/Units 21:29 Total Bilirubin 0.3 (0.0-1.0) mg/dL AST 34 H (5-31) U/L ALT 30 (0-31) U/L Alkaline Phosphatase 188 H D (39-117) U/L Albumin 4.0 (3.5-5.0) g/dL Urine 07/13/22 Range/Units 22:00 Urine Color Yellow Urine Appearance Cloudy Urine pH 5.0 (5.0-8.0) Ur Specific [place] 1.010 (1.005-1.025) Urine Protein Trace (Neg-Trace) mg/dL Urine Glucose (UA) Negative (Negative) mg/dL Imaging CT scan - abdomen: Attestation: I personally reviewed and interpreted this imaging study as follows: My impression: thickened left sided colon and bladder wall Assessment and Plan (1) C. difficile colitis: Status: Acute (2) Diarrhea: Status: Acute (3) Positive occult stool blood test: Status: Acute Plan 1/ Colitis with pos c diff and hx of recent hospitalizations. Hx is most consistent with complicated c diff with related colitis and worsening kidney function PLAN: 1/ OK to cont with antiplatelets, no suggestion of overt GI bleeding, some microscopic bleeding would be expected given the colitis hx 2/ cont with vancomycin and ID consult 3/ if sx dont improve then sigmoidoscopy to r/o UC or other cause of colitis Procedures Date of Service Date of Service: 07/14/22
[2022-07-14 07:05] LABS: Glucose, Whole Blood 188 mg/dL (60-115)
--- NOTE | 2022-07-14 09:22 | PC.NURSE ---
Pt seen by Dr Ravi, plan for IV abx and fluids. Pt reports soreness to bottom but denies abd tenderness at this time. Abd soft. NSR on monitor. Small amt of diarrhea this AM. BP improving. SKin pale, warm and dry. Angulo patent.
--- NOTE | 2022-07-14 10:10 | PM.CNCAR ---
History of Present Illness History of Present Illness Date of Service: 07/14/22 Chief complaint: Cdiff colitis, UTI Narrative: We have been asked to see Lida in cardiology consultation. She generally sees Dr. Zelaya in the office. Last appointment very recently. Per his note, numerous medical issues including recent NSTEMI in the setting of acute medical illness with myocardial perfusion imaging showing inferior lateral ischemia; diastolic heart failure, autonomic dysfunction, gastroparesis, labile blood pressures among others. There is also history of coronary artery bypass surgery 2019. It seems she underwent PRADO to LAD as well as saphenous vein to OM bypass. Diffuse PDA stenosis which was small-vessel and not bypassed but medically treated. Also has advanced kidney disease. Current admission is mainly for diarrhea. She has had several episodes of diarrhea for the last couple of days. She is also having some discomfort in the anal area according to her. No abdominal pain. No chest pain from a cardiac standpoint. Breathing is okay. No other specific cardiac concerns at this time. Review of Systems Review of Systems: Yes all other systems are reviewed and are negative Constitutional: Constitutional: Reports as per HPI Eyes: Eyes: Reports as per HPI ENT: Reports as per HPI Cardiovascular: Cardiovascular: Reports as per HPI, Denies acrocyanosis, Denies cool extremities, Denies chest pain, Denies leg edema, Denies lightheadedness, Denies palpitations and Denies dyspnea Respiratory: Respiratory: Reports as per HPI, Reports no additional respiratory complaints and Denies dyspnea Gastrointestinal: Gastrointestinal: Reports as per HPI and Reports no additional gastrointestinal complaints (Diarrhea, anal pain) Genitourinary: Genitourinary: Reports as per HPI Musculoskeletal: Musculoskeletal: Reports no additional musculoskeletal complaints and Reports as per HPI Integumentary/Breasts: Skin/Breast: Reports system reviewed and no additional complaints, except as docu Neurologic: Reports system reviewed and no additional complaints, except as documented and Reports as per HPI Psychiatric: Psychiatric: Reports no additional psychiatric complaints and Reports as per HPI Endocrine: Endocrine: Reports no additional endocrine complaints, Reports as per HPI and Denies palpitations Hematologic/Lymphatic: Hematologic/Lymphatic: Reports no additional hematologic/lymphatic complaints and Reports as per HPI Allergic/Immunologic: Allergic/Immunologic: Reports no additional allergic/immunologic complaints and Reports as per HPI [facility] Past Medical History Medical History (Updated 07/14/22 @ 10:17 by Brian Wilkins MD) Acute heart failure with preserved ejection fraction Anemia Anxiety Arthritis Cardiac pacemaker in situ Carpal tunnel syndrome CHF (congestive heart failure) Chronic heart failure with preserved ejection fraction (HFpEF) COPD exacerbation Coronary artery disease CVA (cerebral vascular accident) Diabetes Diabetic gastroparesis Fall Gastritis Gastroparesis Gastroparesis GERD (gastroesophageal reflux disease) Headache Heart failure with preserved ejection fraction HLD (hyperlipidemia) HTN (hypertension) HTN (hypertension) Hypocalcemia Hypoxia IBS (irritable bowel syndrome) Knee pain, left Myocardial infarct Nausea and vomiting Orthostasis Renal failure Suprapatellar effusion of knee T2DM (type 2 diabetes mellitus) UTI (urinary tract infection) Family History Family History Father No problems noted. Mother Diabetes Hypercholesteremia Hypertension Stroke Surgical History Surgical History H/O Achilles tendon repair History of appendectomy History of bladder surgery History of carpal tunnel release History of total hysterectomy with bilateral salpingo-oophorectomy (BSO) Hx of amputation Hx of CABG (~2019) Hx of cholecystectomy Hx of endoscopy Hx of knee surgery Hx of tonsillectomy Social History Social History Household Members: Family Household Members Other:: 1 Housing: Apartment Do you presently have visiting nurse or other home services: Yes Alcohol intake: unknown Patient Tobacco Use Status: Former Tobacco user Years Smoked: 20 Second Hand Smoke Exposure: No Use of substances other than those prescribed or required for medical reasons: Unknown Advance Directives: Yes Advance Directives on File: Yes Advance Directives Date on File: 01/13/22 Patient : No service: No Current occupational status: disabled Meds Allergies Allergy/AdvReac Type Severity Reaction Status Date / Time tetracycline [Tetracycline] Allergy Mild HIVES, Verified 05/04/22 13:14 anaphylaxis, anaphylaxis Active Medications: Current Medications Acetaminophen (Acetaminophen 325 Mg Tablet) 650 mg PO Q6H PRN PRN Reason: Pain, Mild (Pain Scale 1-3) Ceftriaxone Sodium 1 gm/ (Sodium Chloride) 50 mls @ 100 mls/hr IV Q24H LAW Lactated Ringer's (Lr) 1,000 mls @ 100 mls/hr IVCONT .Q10H LAW Last Admin: 07/14/22 03:38 Dose: 100 mls/hr Ondansetron HCl (Ondansetron Hcl 4 Mg/2 Ml Vial) 4 mg IVPUSH Q8H PRN PRN Reason: Nausea and Vomiting Pharmacy Consult (Consult Rx Perform Med Rec) 1 each MISCELLANE ONCE PRN PRN Reason: Consult order Sodium Chloride (0.9 % Sodium Chloride Flush 3 Ml Syringe) 3 ml IVFLUSH QSHIFT [facility] Last Admin: 07/14/22 09:36 Dose: Not Given Vancomycin HCl (Vancomycin Hcl 125 Mg Capsule) 250 mg PO Q6H [facility] Last Admin: 07/14/22 06:05 Dose: 250 mg Home Medications Medication Instructions Recorded Confirmed Last Taken Type allopurinol 100 mg tablet 1 tab PO DAILY 07/14/22 07/14/22 Unknown History aspirin 81 mg tablet,delayed 1 tab PO DAILY 07/14/22 07/14/22 Unknown History release atorvastatin 80 mg tablet 1 tab PO BEDTIME 07/14/22 07/14/22 Unknown History blood sugar diagnostic (FreeStyle 07/14/22 07/14/22 Unknown History Lite Strips) cetirizine 10 mg tablet 1 tab PO DAILY 07/14/22 07/14/22 Unknown History cholecalciferol (vitamin D3) 25 1 cap PO DAILY 07/14/22 07/14/22 Unknown History mcg (1,000 unit) capsule clopidogrel 75 mg tablet 1 tab PO DAILY 07/14/22 Unknown History ferrous sulfate 325 mg (65 mg 1 tab PO DAILY 07/14/22 07/14/22 Unknown History iron) tablet (FeroSul) furosemide 40 mg tablet 1 tab PO DAILY 07/14/22 Unknown History gabapentin 100 mg capsule 2 cap PO TID 07/14/22 07/14/22 Unknown History hydralazine 25 mg tablet 1 tab PO TID 07/14/22 Unknown History insulin aspart U-100 100 unit/mL 8 unit subcut TIDAC 07/14/22 Unknown History (3 mL) subcutaneous pen (Novolog Flexpen U-100 Insulin aspart) insulin degludec 100 unit/mL (3 32 unit subcut BEDTIME 07/14/22 Unknown History mL) subcutaneous pen (Tresiba FlexTouch U-100 insulin) isosorbide dinitrate 10 mg tablet 1 tab PO DAILY PRN unknown 07/14/22 Unknown History isosorbide mononitrate 30 mg 1 tab PO DAILY 07/14/22 07/14/22 Unknown History tablet,extended release 24 hr linagliptin 5 mg tablet (Tradjenta) 1 tab PO DAILY 07/14/22 07/14/22 Unknown History lisinopril 5 mg tablet 1 tab PO BEDTIME 07/14/22 07/14/22 Unknown History lorazepam 0.5 mg tablet 1 tab PO BID PRN Anxiety 07/14/22 07/14/22 Unknown History melatonin 5 mg tablet 1 tab PO BEDTIME 07/14/22 07/14/22 Unknown History meloxicam 7.5 mg tablet 1 tab PO DAILY 07/14/22 07/14/22 Unknown History metoclopramide HCl 5 mg tablet 1 tab PO TID 07/14/22 07/14/22 Unknown History metoprolol succinate 25 mg 1 tab PO BID 07/14/22 Unknown History tablet,extended release 24 hr nystatin 100,000 unit/gram topical 1 applic topical BID-TID 07/14/22 07/14/22 Unknown History powder (Nystop) pantoprazole 40 mg tablet,delayed 1 tab PO BID 07/14/22 07/14/22 Unknown History release sodium zirconium cyclosilicate 5 ea PO 07/14/22 Unknown History gram oral powder packet (Lokelma) tamsulosin 0.4 mg capsule 1 cap PO DAILY 07/14/22 Unknown History trazodone 50 mg tablet 0.5 tab PO BEDTIME PRN Insomnia 07/14/22 07/14/22 Unknown History Physical Exam Vital Signs: Vital Signs: Last Vital Signs Temp 99.3 F 07/14/22 06:01 Pulse 89 07/14/22 09:22 Resp 18 07/14/22 09:22 BP 109/53 L 07/14/22 09:22 Pulse Ox 99 07/14/22 09:22 O2 Del Method 07/14/22 09:22 O2 Flow Rate 2 07/14/22 09:22 BMI result Body Mass Index 30.2 Const: General: comfortable and no acute distress Orientation/consciousness: patient oriented x3 HEENT: Other: Unremarkable Head: Yes normal to inspection Neck: Neck: Yes normal visual inspection Chest: Chest palpation & inspection: normal inspection of the chest Resp: Auscultation: clear to auscultation bilaterally Cardio: Palpation: normal PMI Heart sounds: S1 normal heart sound present, S2 normal heart sound present, no gallops, no murmurs and no rubs GI: Palpation (GI): Soft to palpation Back/Spine/Pelvis: Other: unremarkable Skin: General skin exam: no rashes or lesions noted Neuro: General: patient oriented x3 Extrem: General: Yes normal to inspection Psych: Mental Status: mental status grossly normal Objective Labs and Meds Result diagrams: 07/14/22 04:49 07/14/22 04:49 Lab results: Laboratory Results - last 24 hr 07/13/22 07/13/22 07/13/22 21:03 21:29 21:29 WBC RBC Hgb Hct MCV MCH MCHC RDW Plt Count MPV Immature Gran % (Auto) Neut % (Auto) Lymph % (Auto) [place] % (Auto) Eos % (Auto) Baso % (Auto) Lymph # (Auto) [place] # (Auto) Eos # (Auto) Baso # (Auto) Abs Immat Gran (auto) Absolute Neuts (auto) Absolute Nucleated RBC Nucleated RBC % (auto) Smear Tech's Comments PT 10.8 INR 0.9 VBG pH VBG pCO2 VBG pO2 VBG HCO3 VBG O2 Saturation VBG Base Excess Sodium 139 Potassium 5.2 H D Chloride 103 Carbon Dioxide 16 L Anion Gap 25 H BUN 94 H D Creatinine 3.58 H Estim Creat Clear Calc 13.3 Estimated GFR 13 POC Glucose 204 H Random Glucose 201 H Lactic Acid Lactic Acid F/U @ 2Hr Lactic Acid F/U @ 4Hr Calcium 9.3 Magnesium 2.3 Total Bilirubin 0.3 AST 34 H ALT 30 Alkaline Phosphatase 188 H D Troponin I High Sens Total Protein 8.4 H Albumin 4.0 Urine Color Urine Appearance Urine pH Ur Specific [place] Urine Protein Urine Glucose (UA) Urine Ketones Urine Blood Urine Nitrite Ur Leukocyte Esterase Urine RBC Urine WBC Urine WBC Clumps Ur Squamous Epith Cells Ur Transition Epith Cell Ur Renal Epithelial Cell Urine Bacteria Hyaline Casts Stool Occult Blood C. difficile Tox B Gene C. difficile Toxin A&B C. difficile Interpret COVID-19 (KENJI) COVID-19 Clin Com 07/13/22 07/13/22 07/13/22 21:30 21:30 21:30 WBC 16.4 H RBC 4.09 L Hgb 12.4 Hct 38.8 MCV 94.9 MCH 30.3 MCHC 32.0 RDW 13.6 Plt Count 314 MPV 11.2 Immature Gran % (Auto) 0.8 H Neut % (Auto) 83.1 H Lymph % (Auto) 10.8 L [place] % (Auto) 4.2 Eos % (Auto) 0.9 Baso % (Auto) 0.2 Lymph # (Auto) 1.8 [place] # (Auto) 0.7 Eos # (Auto) 0.2 Baso # (Auto) 0.0 Abs Immat Gran (auto) 0.13 H Absolute Neuts (auto) 13.6 H Absolute Nucleated RBC 0.000 Nucleated RBC % (auto) 0.0 Smear Tech's Comments PT INR VBG pH VBG pCO2 VBG pO2 VBG HCO3 VBG O2 Saturation VBG Base Excess Sodium Potassium Chloride Carbon Dioxide Anion Gap BUN Creatinine Estim Creat Clear Calc Estimated GFR POC Glucose Random Glucose Lactic Acid 4.3 H* Lactic Acid F/U @ 2Hr Lactic Acid F/U @ 4Hr Calcium Magnesium Total Bilirubin AST ALT Alkaline Phosphatase Troponin I High Sens 41.6 H D Total Protein Albumin Urine Color Urine Appearance Urine pH Ur Specific [place] Urine Protein Urine Glucose (UA) Urine Ketones Urine Blood Urine Nitrite Ur Leukocyte Esterase Urine RBC Urine WBC Urine WBC Clumps Ur Squamous Epith Cells Ur Transition Epith Cell Ur Renal Epithelial Cell Urine Bacteria Hyaline Casts Stool Occult Blood C. difficile Tox B Gene C. difficile Toxin A&B C. difficile Interpret COVID-19 (KENJI) COVID-19 Clin Com 07/13/22 07/13/22 07/13/22 21:30 21:46 21:57 WBC RBC Hgb Hct MCV MCH MCHC RDW Plt Count MPV Immature Gran % (Auto) Neut % (Auto) Lymph % (Auto) [place] % (Auto) Eos % (Auto) Baso % (Auto) Lymph # (Auto) [place] # (Auto) Eos # (Auto) Baso # (Auto) Abs Immat Gran (auto) Absolute Neuts (auto) Absolute Nucleated RBC Nucleated RBC % (auto) Smear Tech's Comments PT INR VBG pH 7.21 L VBG pCO2 45 VBG pO2 50 VBG HCO3 18 L VBG O2 Saturation 69.0 VBG Base Excess -8.9 Sodium Potassium Chloride Carbon Dioxide Anion Gap BUN Creatinine Estim Creat Clear Calc Estimated GFR POC Glucose 178 H Random Glucose Lactic Acid Lactic Acid F/U @ 2Hr Lactic Acid F/U @ 4Hr Calcium Magnesium Total Bilirubin AST ALT Alkaline Phosphatase Troponin I High Sens Total Protein Albumin Urine Color Urine Appearance Urine pH Ur Specific [place] Urine Protein Urine Glucose (UA) Urine Ketones Urine Blood Urine Nitrite Ur Leukocyte Esterase Urine RBC Urine WBC Urine WBC Clumps Ur Squamous Epith Cells Ur Transition Epith Cell Ur Renal Epithelial Cell Urine Bacteria Hyaline Casts Stool Occult Blood C. difficile Tox B Gene C. difficile Toxin A&B C. difficile Interpret COVID-19 (KENJI) Negative COVID-19 Clin Com See Note 07/13/22 07/14/22 07/14/22 22:00 00:06 00:35 WBC RBC Hgb Hct MCV MCH MCHC RDW Plt Count MPV Immature Gran % (Auto) Neut % (Auto) Lymph % (Auto) [place] % (Auto) Eos % (Auto) Baso % (Auto) Lymph # (Auto) [place] # (Auto) Eos # (Auto) Baso # (Auto) Abs Immat Gran (auto) Absolute Neuts (auto) Absolute Nucleated RBC Nucleated RBC % (auto) Smear Tech's Comments PT INR VBG pH VBG pCO2 VBG pO2 VBG HCO3 VBG O2 Saturation VBG Base Excess Sodium Potassium Chloride Carbon Dioxide Anion Gap BUN Creatinine Estim Creat Clear Calc Estimated GFR POC Glucose Random Glucose Lactic Acid Lactic Acid F/U @ 2Hr 3.3 H* Lactic Acid F/U @ 4Hr Calcium Magnesium Total Bilirubin AST ALT Alkaline Phosphatase Troponin I High Sens Total Protein Albumin Urine Color Yellow Urine Appearance Cloudy Urine pH 5.0 Ur Specific [place] 1.010 Urine Protein Trace Urine Glucose (UA) Negative Urine Ketones Negative Urine Blood Negative Urine Nitrite Negative Ur Leukocyte Esterase Large (3+) H Urine RBC 0-2 Urine WBC >50 H Urine WBC Clumps Present Ur Squamous Epith Cells 0-2 Ur Transition Epith Cell Present Ur Renal Epithelial Cell Present Urine Bacteria 4+ Hyaline Casts 6-10 Stool Occult Blood C. difficile Tox B Gene POSITIVE A* C. difficile Toxin A&B Negative C. difficile Interpret SEE NOTE COVID-19 (KENJI) COVID-19 [employer] Com 07/14/22 07/14/22 07/14/22 00:35 02:20 04:49 WBC 22.5 H RBC 3.34 L Hgb 10.2 L Hct 31.6 L MCV 94.6 MCH 30.5 MCHC 32.3 RDW 13.8 Plt Count 231 D MPV 10.4 Immature Gran % (Auto) 0.6 H Neut % (Auto) 89.6 H Lymph % (Auto) 5.1 L [place] % (Auto) 4.6 Eos % (Auto) 0.0 Baso % (Auto) 0.1 Lymph # (Auto) 1.2 [place] # (Auto) 1.0 Eos # (Auto) 0.0 Baso # (Auto) 0.0 Abs Immat Gran (auto) 0.13 H Absolute Neuts (auto) 20.1 H Absolute Nucleated RBC 0.000 Nucleated RBC % (auto) 0.0 Smear Tech's Comments VERIFIED PT INR VBG pH VBG pCO2 VBG pO2 VBG HCO3 VBG O2 Saturation VBG Base Excess Sodium Potassium Chloride Carbon Dioxide Anion Gap BUN Creatinine Estim Creat Clear Calc Estimated GFR POC Glucose Random Glucose Lactic Acid Lactic Acid F/U @ 2Hr Lactic Acid F/U @ 4Hr 2.3 H* Calcium Magnesium Total Bilirubin AST ALT Alkaline Phosphatase Troponin I High Sens Total Protein Albumin Urine Color Urine Appearance Urine pH Ur Specific [place] Urine Protein Urine Glucose (UA) Urine Ketones Urine Blood Urine Nitrite Ur Leukocyte Esterase Urine RBC Urine WBC Urine WBC Clumps Ur Squamous Epith Cells Ur Transition Epith Cell Ur Renal Epithelial Cell Urine Bacteria Hyaline Casts Stool Occult Blood POSITIVE C. difficile Tox B Gene C. difficile Toxin A&B C. difficile Interpret COVID-19 (KENJI) COVID-19 Clin Com 07/14/22 07/14/22 07/14/22 04:49 06:04 07:01 WBC RBC Hgb Hct MCV MCH MCHC RDW Plt Count MPV Immature Gran % (Auto) Neut % (Auto) Lymph % (Auto) [place] % (Auto) Eos % (Auto) Baso % (Auto) Lymph # (Auto) [place] # (Auto) Eos # (Auto) Baso # (Auto) Abs Immat Gran (auto) Absolute Neuts (auto) Absolute Nucleated RBC Nucleated RBC % (auto) Smear Tech's Comments PT INR VBG pH VBG pCO2 VBG pO2 VBG HCO3 VBG O2 Saturation VBG Base Excess Sodium 140 Potassium 4.7 Chloride 110 H Carbon Dioxide 17 L Anion Gap 18 BUN 94 H Creatinine 3.59 H Estim Creat Clear Calc 13.3 Estimated GFR 13 POC Glucose 188 H Random Glucose 269 H Lactic Acid 2.0 Lactic Acid F/U @ 2Hr Lactic Acid F/U @ 4Hr Calcium 7.6 L D Magnesium Total Bilirubin AST ALT Alkaline Phosphatase Troponin I High Sens Total Protein Albumin Urine Color Urine Appearance Urine pH Ur Specific [place] Urine Protein Urine Glucose (UA) Urine Ketones Urine Blood Urine Nitrite Ur Leukocyte Esterase Urine RBC Urine WBC Urine WBC Clumps Ur Squamous Epith Cells Ur Transition Epith Cell Ur Renal Epithelial Cell Urine Bacteria Hyaline Casts Stool Occult Blood C. difficile Tox B Gene C. difficile Toxin A&B C. difficile Interpret COVID-19 (KENJI) COVID-19 Clin Com ECG Interpretation: EKG shows a paced rhythm at 98/Min. Probably atrial sensing. Somewhat diffuse T inversions in the inferior as well as anterolateral leads. These are seen in the past. Slightly more prominent on the current EKG but of doubtful significance. Imaging Radiologist's impression: Impressions Abdomen/Pelvis CT 07/13/22 23:58 IMPRESSION: Thick-walled appearance of the sigmoid colon and rectum, suspicious for colitis and proctitis. Assessment and Plan (1) Coronary artery disease: Status: Acute (2) C. difficile colitis: Status: Acute (3) Positive occult stool blood test: Status: Acute (4) Sepsis: Status: Acute Plan High sensitivity troponin-41.6. In April, it was as much as 7000. Hence substantially lower. Based on her med list, maintained on both aspirin as well as Plavix. Considering the recent NSTEMI, okay to continue. She does have some heme-positive stools but hemoglobin seems okay and she is not having any active melena. In fact, hemoglobin is just about her baseline. Otherwise, may remain on medications for her chronic cardiac issues without changes. Total time spent including review of data, counseling, documentation coordination of care-70 minutes. Procedures Date of Service Date of Service: 07/14/22
--- NOTE | 2022-07-14 11:45 | PHA.MEDREC ---
Pharmacy Consult ? Medication Reconciliation Pharmacy has completed the medication reconciliation.
--- NOTE | 2022-07-14 14:26 | PM.EVENT ---
Event Note Date of Service: 07/14/22 Event Note: Patient seen examined in emergency room complaining of mild lower abdominal discomfort. 62-year-old female with extensive past medical history presents to the hospital with complaints of diarrhea found to have? C diff colitis Patient admitted with following medical issues #?sepsis due to C diff colitis question UTI Met sepsis criteria due to leukocytosis, tachycardia, tachypnea and lactic acidosis -? likely in the setting of recent hospitalization, lactic acidosis improved -? no evidence of megacolon, or hemodynamic instability,? CT pelvic abdomen shows colitis of the sigmoid colon -? continue vancomycin p.o., IV fluids, IV ceftriaxone for UTI -? placed on clear liquid diet, follow cultures, await infectious disease input #? ISA on CKD stage III -? likely secondary to diarrhea, continue IV fluids avoid hypotension follow BMP #? positive occult blood test - ? secondary to acute colitis, follow CBC -? GI consult as patient is on antiplatelet therapy -? will continue double antiplatelet therapy given her history of recent NSTEMI #? history of CAD status post NSTEMI? in April -? given her high risk profile, will continue antiplatelet therapy at this time unless she develops a large GI bleed -? consult GI as well as Cardiology #? hypertension -? low BP on admission hold antihypertensive continue IV fluid resume low-dose beta-héctor #? diabetes -? low-dose sliding scale insulin #? HLD, prior CVA -? continue statin, ASA #? chronic heart failure with preserved ejection fraction -? will hold furosemide in the setting of ISA #? history of gastroparesis on Reglan ?DVT prophylaxis: SCDs
--- NOTE | 2022-07-14 14:38 | MHC.CM.PN ---
[facility] ADDRESSED WITH PATIENT'S GRANDDAUGHTER/HCP SONU TERRAZAS AT [phone]. ORIGINAL MAILED VIA CERTIFIED MAIL TO HOME AND YELLOW COPY TO CHART. IMM ADDENDUM COMPLETED. PATIENT LIVES WITH SONU. SONU IS PATIENT'S RADI[facility] GRINDER THROUGH [facility]. PATIENT USES WALKER AND CANE, HAS OXYGEN AT HOME AND REQUIRES ASSISTANCE DAILY. PATIENT RECEIVES 33 HOURS OF RADIUS GR[facility]ER WEEKLY DAY/EVENING AND 14 NIGHT HOURS (SUN-THURS 5 DAILY HOURS; FRI-SAT 4 DAILY HOURS). PATIENT HAS A NURSE FROM [facility] WHO SEES HER TWICE A DAY FOR MEDICATION MANAGEMENT (LOCKBOX) AND HAS CASE MANAGEMENT THROUGH [facility]. HCP IS ON FILE. SHE IS COVID VAX'D X3 MRNA, SONU OR OTHER FAMILY WILL TRANSPORT HOME. UNSURE WHO PCP IS. D/C PLAN: HOME RESUME [facility] SERVICES
[2022-07-14] MEDS: Gabapentin 100 MG CAPSULE 200 MG PO ×2 (15:09→23:11)
--- NOTE | 2022-07-14 18:15 | PC.NURSE ---
pt incontinent on some loose stool w some scant blood/mucus, LR running @ 100ml/hr, medicated per provider order. pt NPO.
[2022-07-14 18:43] LABS: Glucose, Whole Blood 141 mg/dL (60-115)
[2022-07-14 21:01] LABS: Glucose, Whole Blood 152 mg/dL (60-115)
[2022-07-14] MEDS: Metoprolol Succinate ER 25 MG TAB.ER.24H PO (23:10)
[2022-07-14] MEDS: cefTRIAXone sodium 1 GM in 0.9 % Sodium Chloride 50 ML IV (23:10)
[2022-07-15] MEDS: vancomycin HCL 125 MG CAPSULE 250 MG PO ×4 (01:33→17:35)
--- NOTE | 2022-07-15 01:36 | PC.NURSE ---
medicated pt per mar. Notified provider.
--- NOTE | 2022-07-15 02:03 | PC.NURSE ---
pt incontinent of small amount of stool/mucus - pt cleaned, ivf restarted at 100ml/hr.
--- NOTE | 2022-07-15 03:18 | PC.NURSE ---
RN assumed care of patient at this time.
[2022-07-15 04:49] VITALS: BP 158/81; PULSE 75; RESP 14; TEMP 37.6; O2SAT 100
[2022-07-15] MEDS: Omeprazole 20 MG CAPSULE.DR PO (06:07)
[2022-07-15 08:00] LABS: Glucose, Whole Blood 136 mg/dL (60-115)
[2022-07-15] MEDS: Acetaminophen 325 MG TABLET 650 MG PO (08:20)
[2022-07-15] MEDS: LORazepam 0.5 MG TABLET PO (08:20)
[2022-07-15] MEDS: Metoprolol Succinate ER 25 MG TAB.ER.24H PO ×2 (08:20→22:08)
[2022-07-15 08:22] VITALS: BP 170/73; PULSE 85; RESP 18; TEMP 36.8; O2SAT 98
[2022-07-15 10:27] LABS: Hematocrit 28.6 % (37.0-47.0); Hemoglobin 9.3 g/dl (12.0-16.0); Mean Corpuscular HGB Conc 32.5 g/dl (31.0-35.0); Mean Corpuscular Hemoglobin 30.5 pg (27.0-33.0); Mean Corpuscular Volume 93.8 fL (80.0-98.0); Mean Platelet Volume 10.8 fL (9.4-12.3); Platelet Count 190 X10*3/uL (160-400); Red Blood Count 3.05 X10*6/uL (4.20-5.50); Red Cell Distribution Width 13.8 % (11.0-16.0); White Blood Count 10.1 X10*3/uL (4.8-10.8)
[2022-07-15 10:47] LABS: Anion Gap 13 (12-20); Blood Urea Nitrogen 56 mg/dL (9-16); Carbon Dioxide 20 mmol/L (22-29); Chloride 112 mmol/L (96-108); Creatinine Clr Calc Pharmacy 23.5; Estimated Glomerular Filt Rate 25; Glucose Random 280 mg/dL (60-115); Potassium 4.2 mmol/L (3.3-5.1); Sodium 141 mmol/L (135-145)
--- NOTE | 2022-07-15 12:07 | P.PNIM_ITS ---
Subjective Subjective Date of Service: 07/15/22 Interval History: feeling better this morning denies nausea, no vomiting, no abdominal pain, had 1 loose stool, tolerating clear liquid diet , no acute overnight events. Review of Systems [employer] no headache no dizziness ,CVS no chest pain, no palpitation no urinary urgency, frequency Review of Systems: Yes all other systems are reviewed and are negative Physical Exam Vital Signs: Vital Signs: Last Vital Signs Temp 98.2 F 07/15/22 08:22 Pulse 85 07/15/22 08:22 Resp 18 07/15/22 08:22 BP 170/73 H 07/15/22 08:22 Pulse Ox 98 07/15/22 08:22 O2 Del Method 07/15/22 08:22 O2 Flow Rate 2 07/15/22 08:22 BMI result Body Mass Index 30.2 Const: Other: General awake alert x3 no acute distress. Neck supple no JVD. CVS regular rate rhythm, Respiratory lungs clear to auscultation, no respiratory distress, no wheeze, no rhonchi. Gastrointestinal abdomen soft, nontender, bowel sounds audible, no guarding , no rigidity. Extremities no edema. Neuro nonfocal Skin no rash psych appropriate affect Objective Data Active Medications Acetaminophen (Acetaminophen 325 Mg Tablet) 650 mg PO Q6H PRN PRN Reason: Pain, Mild (Pain Scale 1-3) Last Admin: 07/15/22 08:20 Dose: 650 mg Documented By: JOSÉ Clopidogrel Bisulfate (Clopidogrel Bisulfate 75 Mg Tablet) 75 mg PO DAILY [facility] Dextrose (Dextrose 50 % 25 Gm/50 Ml Syringe) 25 gm IVPUSH Q15M PRN; Protocol PRN Reason: per Hypoglycemia Standing Ord. Gabapentin (Gabapentin 100 Mg Capsule) 200 mg PO TID [facility] Last Admin: 07/14/22 23:11 Dose: 200 mg Documented By: MARIO Glucose (Glucose Gel 15 Gm Gel..Gram.) 15 gm PO Q15M PRN; Protocol PRN Reason: per Hypoglycemia Standing Ord. Ceftriaxone Sodium 1 gm/ (Sodium Chloride) 50 mls @ 100 mls/hr IV Q24H [facility] Last Infusion: 07/15/22 02:02 Dose: 0 mls/hr Documented By: MARIO Insulin Human Lispro (Insulin Lispro 100 Unit/Ml 3 Ml Vial) 0 unit SUBCUT Q6H [facility]; Protocol Last Admin: 07/15/22 08:20 Dose: Not Given Documented By: JOSÉ Non-Admin Reason: No Insulin Coverage Isosorbide Mononitrate (Isosorbide Mononitrate 30 Mg Tab.Er.24h) 30 mg PO DAILY [facility]; Protocol Lorazepam (Lorazepam 0.5 Mg Tablet) 0.5 mg PO BID PRN PRN Reason: Anxiety Last Admin: 07/15/22 08:20 Dose: 0.5 mg Documented By: JOSÉ Metoprolol Succinate (Metoprolol Succinate Er 25 Mg Tab.Er.24h) 25 mg PO BID [facility]; Protocol Last Admin: 07/15/22 08:20 Dose: 25 mg Documented By: JOSÉ Omeprazole (Omeprazole 20 Mg Capsule.Dr) 20 mg PO DAILY@0630 [facility] Last Admin: 07/15/22 06:07 Dose: 20 mg Documented By: ELEAZAR Ondansetron HCl (Ondansetron Hcl 4 Mg/2 Ml Vial) 4 mg IVPUSH Q8H PRN PRN Reason: Nausea and Vomiting Pharmacy Consult (Consult Rx Perform Med Rec) 1 each MISCELLANE ONCE PRN PRN Reason: Consult order Sodium Chloride (0.9 % Sodium Chloride Flush 3 Ml Syringe) 3 ml IVFLUSH QSHIFT [facility] Last Admin: 07/15/22 08:19 Dose: Not Given Documented By: JOSÉ Non-Admin Reason: IV Running Trazodone HCl (Trazodone Hcl 25 Mg Halftab) 25 mg PO BEDTIME PRN PRN Reason: Insomnia Vancomycin HCl (Vancomycin Hcl 125 Mg Capsule) 250 mg PO Q6H [facility] Last Admin: 07/15/22 06:07 Dose: 250 mg Documented By: ELEAZAR Labs CBC & Chem 7: 07/15/22 10:21 07/15/22 10:21 Labs: Laboratory Results - last 24 hr 07/14/22 07/14/22 07/15/22 18:33 20:40 07:51 MCV MCH MCHC RDW Plt Count MPV Absolute Nucleated RBC Nucleated RBC % (auto) Anion Gap Estim Creat Clear Calc Estimated GFR POC Glucose 141 H 152 H 136 H Random Glucose Calcium 07/15/22 07/15/22 10:21 10:21 MCV 93.8 MCH 30.5 MCHC 32.5 RDW 13.8 Plt Count 190 MPV 10.8 Absolute Nucleated RBC 0.000 Nucleated RBC % (auto) 0.0 Anion Gap 13 Estim Creat Clear Calc 23.5 Estimated GFR 25 POC Glucose Random Glucose 280 H Calcium 8.0 L Microbiology Microbiology Results: Microbiology 07/13/22 21:29 Blood Culture - Preliminary Blood - Venous No growth after 24 hours. 07/13/22 21:29 Blood Culture - Preliminary Blood - Venous No growth after 24 hours. Assessment and Plan (1) UTI (urinary tract infection): Status: Acute (2) ISA (acute kidney injury): Status: Acute (3) C. difficile colitis: Status: Acute (4) Acute kidney injury superimposed on CKD: Status: Acute Plan 62-year-old female with extensive past medical history presents to the hospital with complaints of diarrhea found to have? C diff colitis #?sepsis due to C diff colitis question UTI ?? Met sepsis criteria due to leukocytosis, tachycardia, tachypnea and lactic acidosis -? all symptoms of sepsis resolved -? no evidence of megacolon, or hemodynamic instability,? CT pelvic abdomen shows colitis of the sigmoid colon -? continue vancomycin p.o. and IV ceftriaxone for UTI, urine culture pending tolerating clear liquid diet will advance diet to regular diabetic diet #? ISA on CKD stage III -? likely secondary to diarrhea, kidney function improved creatinine 2.03, (baseline creatinine 1.7-2.0) DC IV fluids, hold meloxicam,Lasix and lisinopril for 1 more day, follow BMP #? positive occult blood test - ? secondary to acute colitis, hematocrit dropped but stable,follow CBC -? seen by GI they recommend to continue antiplatelet since no history of overt GI bleeding, they recommend sigmoidoscopy if symptoms do not improve #? history of CAD status post NSTEMI? in April -? given her high risk profile, will continue antiplatelet therapy , seen by Dr. Wilkins he agreed to continue anti-platelet treatment, no evidence of acute cardiac ischemia Will resume statins upon discharge #? hypertension -? low BP on admission , now noted to have elevated blood pressure continue metoprolol, Isordil and hydralazine, will hold Lasix and lisinopril due to acute kidney injury #? diabetes -? will place on diabetic diet, take NovoLog 8 units before meals and Tresiba 32 units daily, once by mouth intake adenfannie Dozier will resume home medication continue sliding scale #? HLD, prior CVA -? continue statin, ASA #? chronic heart failure with preserved ejection fraction -? will hold furosemide in the setting of ISA and renal function along #? history of gastroparesis on Reglan ?DVT prophylaxis: SCDs patient will need continued inpatient hospitalization due to acute colitis, diet being advanced, waiting for urine cultures on IV antibiotics,and monitoring of renal function. Quality Stroke Does the patient have a stroke diagnosis?: No VTE Prior VTE?: No VTE Risk Level:: Medical - moderate - high VTE Device Contraindication: N/A - Device Ordered VTE Drug Contraindication: Treatment Not Indicated
[2022-07-15] MEDS: Gabapentin 100 MG CAPSULE 200 MG PO ×3 (12:43→22:08)
[2022-07-15 13:52] VITALS: BP 119/64; PULSE 73; RESP 16; TEMP 37; O2SAT 93
[2022-07-15 13:59] LABS: Glucose, Whole Blood 170 mg/dL (60-115)
[2022-07-15] MEDS: Insulin Lispro 100 UNIT/ML 3 ML VIAL SUBCUT ×2 (14:06→17:36)
[2022-07-15] MEDS: Isosorbide Mononitrate 30 MG TAB.ER.24H PO (14:06)
[2022-07-15 16:00] VITALS: BP 126/69; PULSE 73; RESP 16; TEMP 37; O2SAT 95
[2022-07-15 17:26] LABS: Glucose, Whole Blood 199 mg/dL (60-115)
--- NOTE | 2022-07-15 17:42 | PC.NURSE ---
PT INC OF STOOL, HAS BEEN CHANGED AND REPOSITIONED SEVERAL TIMES TODAY FOR LIQUID STOOL. PT HAS RED AREA ON BUTTOCK, PORTECTIVE CREAM APPLIED. PT NEEDS BEING MET
--- NOTE | 2022-07-15 18:29 | PC.NURSE ---
patient was incontinent of large amount of stool ,care given linnen change .
--- NOTE | 2022-07-15 19:20 | PC.NURSE ---
Attempted nursing report to [address] [place] [address] x 1 unsuccessfully at this time.
[2022-07-15 20:00] VITALS: BP 130/74; PULSE 74; RESP 16; TEMP 36.6; O2SAT 98
--- NOTE | 2022-07-15 20:09 | PC.NURSE ---
Still awaiting return call from [address] [place] [address] for nursing report. Nursing sample preparation supervisor aware.
--- NOTE | 2022-07-15 21:11 | PC.NURSE ---
Pt has been transported to [address] [place] [address] at this time by myself. I gave bedside nursing report to [address] [place] [address] RN.
[2022-07-15 21:36] LABS: Glucose, Whole Blood 153 mg/dL (60-115)
[2022-07-15] MEDS: hydrALAZINE HCl 25 MG TABLET PO (22:08)
[2022-07-15] MEDS: 0.9 % Sodium Chloride Flush 3 ML SYRINGE IVFLUSH (22:09)
--- NOTE | 2022-07-15 22:49 | W.PM.IDCN ---
History of Present Illness Data of Consult Service Date: 07/15/22 Requesting physician: Cliff Riley Primary Care Provider: Unknown Physician HPI Reason for consult: recurrent Cdiff She has weakness and watery diarrhea for two days. She has no dysuria or hematuria. She has had Cdiff positive now and in April. Review of Systems Review of Systems: Yes all other systems are reviewed and are negative PMFSH Past Medical History Medical History Acute heart failure with preserved ejection fraction Anemia Anxiety Arthritis Cardiac pacemaker in situ Carpal tunnel syndrome CHF (congestive heart failure) Chronic heart failure with preserved ejection fraction (HFpEF) COPD exacerbation Coronary artery disease CVA (cerebral vascular accident) Diabetes Diabetic gastroparesis Fall Gastritis Gastroparesis Gastroparesis GERD (gastroesophageal reflux disease) Headache Heart failure with preserved ejection fraction HLD (hyperlipidemia) HTN (hypertension) HTN (hypertension) Hypocalcemia Hypoxia IBS (irritable bowel syndrome) Knee pain, left Myocardial infarct Nausea and vomiting Orthostasis Renal failure Suprapatellar effusion of knee T2DM (type 2 diabetes mellitus) UTI (urinary tract infection) Family History Family History Father No problems noted. Mother Diabetes Hypercholesteremia Hypertension Stroke Family history: reviewed and not pertinent Surgical History Surgical History H/O Achilles tendon repair History of appendectomy History of bladder surgery History of carpal tunnel release History of total hysterectomy with bilateral salpingo-oophorectomy (BSO) Hx of amputation Hx of CABG (~2018) Hx of cholecystectomy Hx of endoscopy Hx of knee surgery Hx of tonsillectomy Social History Social History Household Members: Family Household Members Other:: 1 Housing: Apartment Do you presently have visiting nurse or other home services: Yes Alcohol intake: unknown Patient Tobacco Use Status: Former Tobacco user Years Smoked: 20 Second Hand Smoke Exposure: No Advance Directives Date on File: 01/13/22 service: No Current occupational status: disabled Meds Allergies Allergy/AdvReac Type Severity Reaction Status Date / Time tetracycline [Tetracycline] Allergy Mild HIVES, Verified 05/04/22 13:14 anaphylaxis, anaphylaxis Active Medications: Current Medications Acetaminophen (Acetaminophen 325 Mg Tablet) 650 mg PO Q6H PRN PRN Reason: Pain, Mild (Pain Scale 1-3) Last Admin: 07/15/22 08:20 Dose: 650 mg Clopidogrel Bisulfate (Clopidogrel Bisulfate 75 Mg Tablet) 75 mg PO DAILY [facility] Dextrose (Dextrose 50 % 25 Gm/50 Ml Syringe) 25 gm IVPUSH Q15M PRN; Protocol PRN Reason: per Hypoglycemia Standing Ord. Gabapentin (Gabapentin 100 Mg Capsule) 200 mg PO TID [facility] Last Admin: 07/15/22 22:08 Dose: 200 mg Glucose (Glucose Gel 15 Gm Gel..Gram.) 15 gm PO Q15M PRN; Protocol PRN Reason: per Hypoglycemia Standing Ord. Hydralazine HCl (Hydralazine Hcl 25 Mg Tablet) 25 mg PO BEDTIME [facility]; Protocol Last Admin: 07/15/22 22:08 Dose: 25 mg Insulin Human Lispro (Insulin Lispro 100 Unit/Ml 3 Ml Vial) 0 unit SUBCUT Q6H [facility]; Protocol Last Admin: 07/15/22 17:36 Dose: 2 unit Isosorbide Mononitrate (Isosorbide Mononitrate 30 Mg Tab.Er.24h) 30 mg PO DAILY [facility]; Protocol Last Admin: 07/15/22 14:06 Dose: 30 mg Lorazepam (Lorazepam 0.5 Mg Tablet) 0.5 mg PO BID PRN PRN Reason: Anxiety Last Admin: 07/15/22 08:20 Dose: 0.5 mg Metoprolol Succinate (Metoprolol Succinate Er 25 Mg Tab.Er.24h) 25 mg PO BID [facility]; Protocol Last Admin: 07/15/22 22:08 Dose: 25 mg Omeprazole (Omeprazole 20 Mg Capsule.Dr) 20 mg PO DAILY@0630 [facility] Last Admin: 07/15/22 06:07 Dose: 20 mg Ondansetron HCl (Ondansetron Hcl 4 Mg/2 Ml Vial) 4 mg IVPUSH Q8H PRN PRN Reason: Nausea and Vomiting Pharmacy Consult (Consult Rx Perform Med Rec) 1 each MISCELLANE ONCE PRN PRN Reason: Consult order Sodium Chloride (0.9 % Sodium Chloride Flush 3 Ml Syringe) 3 ml IVFLUSH QSHIFT [facility] Last Admin: 07/15/22 22:09 Dose: 3 ml Tamsulosin HCl (Tamsulosin Hcl 0.4 Mg Capsule) 0.4 mg PO DAILY [facility] Trazodone HCl (Trazodone Hcl 25 Mg Halftab) 25 mg PO BEDTIME PRN PRN Reason: Insomnia Vancomycin HCl (Vancomycin Hcl 125 Mg Capsule) 250 mg PO Q6H [facility] Last Admin: 07/15/22 17:35 Dose: 250 mg Home Medications Medication Instructions Recorded Confirmed Last Taken Type allopurinol 100 mg tablet 1 tab PO DAILY 07/14/22 07/14/22 Unknown History aspirin 81 mg tablet,delayed 1 tab PO DAILY 07/14/22 07/14/22 Unknown History release atorvastatin 80 mg tablet 1 tab PO BEDTIME 07/14/22 07/14/22 Unknown History blood sugar diagnostic (FreeStyle 07/14/22 07/14/22 Unknown History Lite Strips) cetirizine 10 mg tablet 1 tab PO DAILY 07/14/22 07/14/22 Unknown History cholecalciferol (vitamin D3) 25 1 cap PO DAILY 07/14/22 07/14/22 Unknown History mcg (1,000 unit) capsule clopidogrel 75 mg tablet 1 tab PO DAILY 07/14/22 07/14/22 Unknown History ferrous sulfate 325 mg (65 mg 1 tab PO DAILY 07/14/22 07/14/22 Unknown History iron) tablet (FeroSul) furosemide 40 mg tablet 1 tab PO DAILY 07/14/22 07/14/22 Unknown History gabapentin 100 mg capsule 2 cap PO TID 07/14/22 07/14/22 Unknown History hydralazine 25 mg tablet 1 tab PO BEDTIME 07/14/22 07/14/22 Unknown History insulin aspart U-100 100 unit/mL 8 unit subcut TIDAC 07/14/22 07/14/22 Unknown History (3 mL) subcutaneous pen (Novolog Flexpen U-100 Insulin aspart) insulin degludec 100 unit/mL (3 32 unit subcut DAILY 07/14/22 07/14/22 Unknown History mL) subcutaneous pen (Tresiba FlexTouch U-100 insulin) isosorbide mononitrate 30 mg 1 tab PO DAILY 07/14/22 07/14/22 Unknown History tablet,extended release 24 hr linagliptin 5 mg tablet (Tradjenta) 1 tab PO DAILY 07/14/22 07/14/22 Unknown History lisinopril 5 mg tablet 1 tab PO BEDTIME 07/14/22 07/14/22 Unknown History lorazepam 0.5 mg tablet 1 tab PO BID PRN Anxiety 07/14/22 07/14/22 Unknown History melatonin 5 mg tablet 1 tab PO BEDTIME 07/14/22 07/14/22 Unknown History meloxicam 7.5 mg tablet 1 tab PO DAILY 07/14/22 07/14/22 Unknown History metoclopramide HCl 5 mg tablet 1 tab PO TID 07/14/22 07/14/22 Unknown History metoprolol succinate 25 mg 1 tab PO BID 07/14/22 07/14/22 Unknown History tablet,extended release 24 hr nystatin 100,000 unit/gram topical 1 applic topical BID-TID 07/14/22 07/14/22 Unknown History powder (Nystop) pantoprazole 40 mg tablet,delayed 1 tab PO BID 07/14/22 07/14/22 Unknown History release sodium zirconium cyclosilicate 5 1 ea PO Q48H 07/14/22 07/14/22 Unknown History gram oral powder packet (Lokelma) tamsulosin 0.4 mg capsule 1 cap PO DAILY 07/14/22 07/14/22 Unknown History trazodone 50 mg tablet 0.5 tab PO BEDTIME PRN Insomnia 07/14/22 07/14/22 Unknown History Physical Exam Vital Signs: Vital Signs: Last Vital Signs Temp 97.8 F 07/15/22 20:00 Pulse 74 07/15/22 20:00 Resp 16 07/15/22 20:00 BP 130/74 07/15/22 20:00 Pulse Ox 98 07/15/22 20:00 O2 Del Method 07/15/22 20:00 O2 Flow Rate 2 07/15/22 08:22 BMI result Body Mass Index 30.2 Const: General: cooperative HEENT: Head: Yes normal to inspection Face and sinus: Yes normal facial exam Mouth: Normal oral and palatal mucosa present Teeth and gingiva: dentition normal Eyes: General: appearance normal, both eyes and all related structures Pupils: Equal, round and reactive pupils present Resp: Effort & Inspection: normal respiratory effort Cardio: Rate: regular rate Rhythm: regular rhythm GI: Palpation (GI): Soft to palpation and nontender : General: Yes no CVA tenderness Back/Spine/Pelvis: Back: no CVA tenderness Skin: General skin exam: no rashes or lesions noted Neuro: General: moves all extremities Cranial nerves: Yes Equal, round and reactive pupils present Extrem: General: Yes normal to inspection Psych: Appearance: grossly normal Results Labs CBC & Chem 7: 07/15/22 10:21 07/15/22 10:21 Labs: Short CBC 07/15/22 Range/Units 10:21 WBC 10.1 (4.8-10.8) X10*3/uL Hgb 9.3 L (12.0-16.0) g/dl Hct 28.6 L (37.0-47.0) % Plt Count 190 (160-400) X10*3/uL BMP 07/15/22 10:21 Sodium 141 Potassium 4.2 Chloride 112 H Carbon Dioxide 20 L BUN 56 H Creatinine 2.03 H Calcium 8.0 L Microbiology Microbiology Results: Microbiology 07/14/22 10:02 Urine clean catch - Urine mckeon top Urine Culture - Preliminary Gram negative ben 07/13/22 21:29 Blood - Venous Blood Culture - Preliminary No growth after 24 hours. 07/13/22 21:29 Blood - Venous Blood Culture - Preliminary No growth after 24 hours. Assessment and Plan (1) C. difficile colitis: Status: Acute She has had Cdiff in April and now. She has no signs of UTI Plan treat with po Vancomycin and on discharge taper 125 qid one week ,125 tid one week,125 bid one week,125 daily one week and then 125 mg po M,W,F indefinitely Consider Zinplava
[2022-07-15 23:34] VITALS: BP 129/59; PULSE 80; RESP 18; TEMP 36.3; O2SAT 95
[2022-07-16 00:26] LABS: Glucose, Whole Blood 159 mg/dL (60-115)
[2022-07-16] MEDS: vancomycin HCL 125 MG CAPSULE 250 MG PO ×3 (00:26→11:45)
[2022-07-16] MEDS: Insulin Lispro 100 UNIT/ML 3 ML VIAL SUBCUT ×3 (00:26→11:45)
[2022-07-16 04:00] VITALS: BP 147/67; PULSE 70; RESP 17; TEMP 36.3; O2SAT 94
[2022-07-16] MEDS: Omeprazole 20 MG CAPSULE.DR PO (05:25)
[2022-07-16 07:06] LABS: Hematocrit 27.9 % (37.0-47.0); Hemoglobin 9.2 g/dl (12.0-16.0); Mean Corpuscular Hemoglobin 30.8 pg (27.0-33.0); Mean Corpuscular Volume 93.3 fL (80.0-98.0); Mean Platelet Volume 10.8 fL (9.4-12.3); Platelet Count 205 X10*3/uL (160-400); Red Blood Count 2.99 X10*6/uL (4.20-5.50); Red Cell Distribution Width 13.9 % (11.0-16.0); White Blood Count 8.8 X10*3/uL (4.8-10.8)
[2022-07-16 07:29] LABS: Glucose, Whole Blood 164 mg/dL (60-115)
[2022-07-16 07:34] VITALS: BP 154/72; PULSE 68; RESP 18; TEMP 37.1; O2SAT 92
[2022-07-16 07:44] LABS: Anion Gap 12 (12-20); Blood Urea Nitrogen 38 mg/dL (9-16); Calcium 8.2 mg/dL (8.4-10.2); Carbon Dioxide 22 mmol/L (22-29); Chloride 113 mmol/L (96-108); Creatinine Clr Calc Pharmacy 29.6; Estimated Glomerular Filt Rate 32; Glucose Random 174 mg/dL (60-115); Potassium 4.5 mmol/L (3.3-5.1); Sodium 142 mmol/L (135-145)
[2022-07-16] MEDS: Isosorbide Mononitrate 30 MG TAB.ER.24H PO (07:46)
[2022-07-16] MEDS: Tamsulosin HCL 0.4 MG CAPSULE PO (07:46)
[2022-07-16] MEDS: Metoprolol Succinate ER 25 MG TAB.ER.24H PO (07:46)
[2022-07-16] MEDS: 0.9 % Sodium Chloride Flush 3 ML SYRINGE IVFLUSH (07:47)
[2022-07-16] MEDS: Gabapentin 100 MG CAPSULE 200 MG PO (07:47)
[2022-07-16] MEDS: Clopidogrel Bisulfate 75 MG TABLET PO (07:47)
[2022-07-16] MEDS: LORazepam 0.5 MG TABLET PO (09:32)
[2022-07-16 11:11] LABS: Glucose, Whole Blood 184 mg/dL (60-115)
[2022-07-16 11:12] VITALS: BP 161/72; PULSE 70; RESP 18; TEMP 37.1; O2SAT 95
--- NOTE | 2022-07-16 11:36 | P.DS_ITS ---
DS: Providers Provider Date of Service: 07/16/22 Date of admission: 07/14/22 03:17 Date of discharge: 07/16/22 Primary care physician: Unknown Physician Consults: 07/14/22 03:15 Consult to Infectious Diseases Routine Consulting Provider: Bethany Torres Reason for consultation: Cdiff Has provider been notified: No 07/14/22 05:52 Consult to Cardiology Routine Consulting Provider: Brian Wilkins Reason for consultation: ON DAPT, positive occult stool Has provider been notified: No Consult to Gastroenterology Routine Consulting Provider: Doug Ravi Reason for consultation: Colitis, positive occult blood, hx of nstemi on dapt Has provider been notified: No Attending physician on discharge: Dick Coelho Discharging clinician: Yessica Sanchez DS: Diagnosis Discharge Diagnosis (1) C. difficile colitis: Status: Acute (2) Sepsis: Status: Acute (3) Acute kidney injury superimposed on CKD: Status: Acute (4) Positive occult stool blood test: Status: Acute DS: Summary Hospital Course Hospital Course: From H&P on day of admission 62-year-old female with an extensive past medical history of hypertension, hyperlipidemia, diabetes, gastroparesis, CAD status post CABG, CVA, heart failure preserved ejection fraction, DPM, COPD, history process, CKD, among others with frequent admissions to the hospital presents to the hospital with complaints diarrhea.? Patient reports that she has had more than 5-10 episodes of diarrhea daily for the past 2 days, not associated with any abdominal pain, no nausea or vomiting. ? nonbloody.? No previous similar episode.? Patient denies any fever or chills, no chest pain, no urinary symptoms at this time cleaning no dysuria frequency or urgency and no lower extremity edema.? On arrival to the ED patient hemodynamically stable? with hypotension with blood pressure of 85/44.? Lab significant for WBC count of 16.4, sodium 139, potassium 5.2, bicarb of 16, BUN of 94, creatinine of 3.58 with a baseline around 2.1, lactic acid of 4.3 that improved with IV fluids, UA positive for leukocytes and WBC, C diff toxin positive.? She also has positive stool? Occult ? Denies any melena, no hematochezia. ? CT abdomen pelvis shows thick-walled appearance of the sigmoid colon and rectum suspicious for colitis and proctitis Patient will be admitted for further management #sepsis due to C diff colitis Met sepsis criteria due to leukocytosis, tachycardia, tachypnea and lactic acidosis. all symptoms of sepsis resolved. no evidence of megacolon, or hemodynamic instability,? CT pelvic abdomen shows colitis of the sigmoid colon. Her diarrhea has slowed down, she is tolerating a diabetic diet and has no abdominal pain at this time. She was seen in consultation by ID who recommended 4 week taper of oral vancomycin followed by Wednesday dosing indefinitely. She should call to schedule a follow-up appointment with ID. Patient was asymptomatic with no urinary symptoms and therefore ceftriaxone was discontinued per ID recommendation. #ISA on CKD stage III -? likely secondary to diarrhea, kidney function improved creatinine 2.03, (baseline creatinine 1.7-2.0). Creatinine today down to 1.6. Will resume all m edications upon discharge. Recommend outpatient follow-up with PCP #? positive occult blood test - ? secondary to acute colitis,? hematocrit trended down but has remained stable -?? seen by GI they recommend to continue antiplatelet since no history of overt GI bleeding #? history of CAD status post NSTEMI? in April -? given her high risk profile, will continue antiplatelet therapy , seen by Dr. Wilkins he agreed to continue anti-platelet treatment, no evidence of acute cardiac ischemia #? hypertension -? low BP on admission , now noted to have elevated blood pressure? continue metoprolol, Isordil and hydralazine, Lasix and lisinopril initially held due to acute kidney injury, will be resumed on discharge Time Spent with Patient Time attestation: Total time spent providing and/or coordinating discharge services: Discharge coordination time: Greater than 30 minutes Quality: Safe Use of Opioids Does Pt have an Active Cancer Diagnosis on the Problem List?: No Quality: Stroke Does the patient have a stroke diagnosis?: No Physical Exam Vital Signs: Vital Signs: Last Vital Signs Temp 98.8 F 07/16/22 11:12 Pulse 70 07/16/22 11:12 Resp 18 07/16/22 11:12 BP 161/72 H 07/16/22 11:12 Pulse Ox 95 07/16/22 11:12 O2 Del Method 07/16/22 11:12 O2 Flow Rate 2 07/15/22 08:22 BMI result Body Mass Index 30.2 Const: General: cooperative, comfortable, no acute distress, alert and awake Nutritional Appearance: overweight Orientation/consciousness: patient oriented x3 Resp: Effort & Inspection: normal respiratory effort and able to speak in complete sentences Cardio: Rate: regular rate Heart sounds: S1 normal heart sound present and S2 normal heart sound present GI: Inspection: No distended Palpation (GI): Soft to palpation and nontender Neuro: General: patient oriented x3 Extrem: General: Yes no pedal edema DS: Data Data Completed and Pending Completed studies during hospitalization [Text1]: Procedures Insertion of Infusion Device into Right Basilic Vein, Percutaneous Approach (10/31/20) Transfusion of Nonautologous Red Blood Cells into Peripheral Vein, Percutaneous Approach (10/31/20) Labs on day of discharge: Laboratory Results - last 24 hr 07/15/22 07/15/22 07/15/22 13:50 17:21 21:30 WBC RBC Hgb Hct MCV MCH MCHC RDW Plt Count MPV Absolute Nucleated RBC Nucleated RBC % (auto) Sodium Potassium Chloride Carbon Dioxide Anion Gap BUN Creatinine Estim Creat Clear Calc Estimated GFR POC Glucose 170 H 199 H 153 H Random Glucose Calcium 07/16/22 07/16/22 07/16/22 00:21 06:00 06:00 WBC 8.8 RBC 2.99 L Hgb 9.2 L Hct 27.9 L MCV 93.3 MCH 30.8 MCHC 33.0 RDW 13.9 Plt Count 205 MPV 10.8 Absolute Nucleated RBC 0.000 Nucleated RBC % (auto) 0.0 Sodium 142 Potassium 4.5 Chloride 113 H Carbon Dioxide 22 Anion Gap 12 BUN 38 H Creatinine 1.61 H Estim Creat Clear Calc 29.6 Estimated GFR 32 POC Glucose 159 H Random Glucose 174 H Calcium 8.2 L 07/16/22 07/16/22 07:21 11:01 WBC RBC Hgb Hct MCV MCH MCHC RDW Plt Count MPV Absolute Nucleated RBC Nucleated RBC % (auto) Sodium Potassium Chloride Carbon Dioxide Anion Gap BUN Creatinine Estim Creat Clear Calc Estimated GFR POC Glucose 164 H 184 H Random Glucose Calcium Preliminary micro results at discharge 07/13/22 21:29 Blood Culture - Preliminary Blood - Venous No growth after 48 hours. 07/13/22 21:29 Blood Culture - Preliminary Blood - Venous No growth after 48 hours. Discharge Plan Discharge Patient Disposition: Home, Self-Care Discharge Diagnosis: ISA on CKD Cdif colitis Sepsis Referrals: Bethany Torres MD [Physician] - 1 Week Physician,Ila J [Primary Care Provider] - 1 Week Discharge Medications: New vancomycin 125 mg capsule 125 mg PO QID Qty: 70 0RF Rx Instructions: 125 mg q.i.d. for 1 week 125 mg t.i.d. for 1 week 125 mg b.i.d. for 1 week 125 mg daily for 1 week and then 125 mg , , indefinitely after that Continued atorvastatin 80 mg tablet 1 tab PO BEDTIME trazodone 50 mg tablet 0.5 tab PO BEDTIME PRN (Reason: Insomnia) cetirizine 10 mg tablet 1 tab PO DAILY isosorbide mononitrate 30 mg tablet extended release 24 hr 1 tab PO DAILY (DME) FreeStyle Lite Strips Strip MISCELLANEOUS aspirin 81 mg tablet,delayed release (DR/EC) 1 tab PO DAILY lorazepam 0.5 mg tablet 1 tab PO BID PRN (Reason: Anxiety) metoclopramide HCl 5 mg tablet 1 tab PO TID pantoprazole 40 mg tablet,delayed release (DR/EC) 1 tab PO BID ferrous sulfate [FeroSul] 325 mg (65 mg iron) tablet 1 tab PO DAILY lisinopril 5 mg tablet 1 tab PO BEDTIME gabapentin 100 mg capsule 2 cap PO TID nystatin [Nystop] 100,000 unit/gram powder 1 applic topical BID-TID cholecalciferol (vitamin D3) 25 mcg (1,000 unit) capsule 1 cap PO DAILY insulin aspart U-100 [Novolog Flexpen U-100 Insulin] 100 unit/mL (3 mL) insulin pen 8 unit subcut TIDAC melatonin 5 mg tablet 1 tab PO BEDTIME Tradjenta 5 mg tablet 1 tab PO DAILY Tresiba FlexTouch U-100 100 unit/mL (3 mL) insulin pen 32 unit subcut DAILY Lokelma 5 gram powder in packet 1 ea PO Q48H furosemide 40 mg tablet 1 tab PO DAILY hydralazine 25 mg tablet 1 tab PO BEDTIME clopidogrel 75 mg tablet 1 tab PO DAILY tamsulosin 0.4 mg capsule 1 cap PO DAILY metoprolol succinate 25 mg tablet extended release 24 hr 1 tab PO BID allopurinol 100 mg tablet 1 tab PO DAILY meloxicam 7.5 mg tablet 1 tab PO DAILY Discharge Orders: Discharge Order (Routine); Ordered 07/16/22 Ordered By: Yessica Sanchez Activity on Discharge: As tolerated Stand Alone Forms: Patient Portal Discharge page Care Plan Goals: See below Health Concerns: Sepsis secondary to C diff colitis ISA on CKD stage 3 Positive occult blood test Plan of Treatment: C diff colitis -recommend to take tapering course of oral vancomycin. See prescription for details Call to schedule follow-up appointment with your PCP Call to schedule follow-up appointment with ID Your kidney function has returned to normal, resume all baseline medications For positive occult blood test, hemoglobin and hematocrit have remained stable. Likely from colitis. Assessment: See discharge summary Discharge Date/Time: 07/16/22 12:10
[2022-07-16] MEDS: Furosemide 40 MG TABLET PO (11:45)
--- NOTE | 2022-07-16 13:01 | MHC.CM.PN ---
CM RECEIVED CALLED FROM [facility] REPORTING PT WAS ACTIVE W/[facility] FOR MED MANAGEMENT AND BID VISITS, [facility] VERIFIED PT IS STILL ACTIVE AND D/C SUMMARY WILL BE FAXED VIA [employer].
== END 2022-07-16 12:10 | disposition home or self-care (01) | DRG 872 ==
LOC: HO.ED 07-14 02:00 → HO.EDOVER 07-14 03:23 → HO.S3 07-15 19:12
PROVIDERS: Hospitalist; Admitting Provider Internal Medicine; Emergency Provider Internal Medicine; Visit Provider Physician Assistant Medical
DX: A41.4 Sepsis due to anaerobes (principal); I13.0 Hypertensive heart and chronic kidney disease with heart failure and stage 1 through stage 4 chronic kidney disease, or unspecified chronic kidney disease; I50.32 Chronic diastolic (congestive) heart failure; N17.9 Acute kidney failure, unspecified; A04.72 Enterocolitis due to Clostridium difficile, not specified as recurrent; A41.9 Sepsis, unspecified organism; N18.30 Chronic kidney disease, stage 3 unspecified; J44.9 Chronic obstructive pulmonary disease, unspecified; I25.10 Atherosclerotic heart disease of native coronary artery without angina pectoris; E11.22 Type 2 diabetes mellitus with diabetic chronic kidney disease; I25.2 Old myocardial infarction; Z20.822 Contact with and (suspected) exposure to COVID-19; R19.5 Other fecal abnormalities; E78.5 Hyperlipidemia, unspecified; Z95.0 Presence of cardiac pacemaker; Z87.891 Personal history of nicotine dependence; Z88.1 Allergy status to other antibiotic agents; Z79.4 Long term (current) use of insulin; Z79.02 Long term (current) use of antithrombotics/antiplatelets; Z79.82 Long term (current) use of aspirin; Z79.899 Other long term (current) drug therapy
CPT/HCPCS: 36415; 74176; 80048; 80053; 81001; 82272; 82803; 82947; 83605; 83735; 84484; 85025; 85027; 85610; 87040; 87086; 87088; 87186; 87324; 87493; 87635; 93005; 96361; 96365; 96367; 96375; 99285; J0696

== ENCOUNTER → 2022-08-14 14:34 | Outpatient (BNVA) | payer OTHER, SELFPAY | PROVIDERS: Visit Provider Internal Medicine | DX: A04.72 Enterocolitis due to Clostridium difficile, not specified as recurrent (principal) | CPT/HCPCS: 99212 ==

== ENCOUNTER → 2022-08-20 10:48 | Outpatient (BNVA) | payer OTHER, SELFPAY | PROVIDERS: Visit Provider Internal Medicine Cardiovascular Disease | DX: Z45.018 Encounter for adjustment and management of other part of cardiac pacemaker (principal); I50.32 Chronic diastolic (congestive) heart failure; I25.10 Atherosclerotic heart disease of native coronary artery without angina pectoris; G90.9 Disorder of the autonomic nervous system, unspecified | CPT/HCPCS: 93280; 99212 ==

== ENCOUNTER 2022-09-11 22:14 | Inpatient (IN) | payer OTHER, SELFPAY ==
--- NOTE | 2022-09-11 | ECG_ITS ---
Test Reason : MATOSA Blood Pressure : / mmHG Vent. Rate : 084 BPM Atrial Rate : 084 BPM P-R Int : 208 ms QRS Dur : 134 ms QT Int : 432 ms P-R-T Axes : 052 104 -74 degrees QTc Int : 510 ms Sinus rhythm with marked sinus arrhythmia with frequent ventricular-paced complexes Right bundle branch block T wave abnormality, consider inferolateral ischemia Abnormal ECG When compared with ECG of 13-JUL-2022 22:13, Vent. rate has decreased BY 14 BPM T wave amplitude has decreased in Inferior leads Lateral leads Referred By: Henri Salmon Electronically Signed By:HARITHA BRAVO MD
--- NOTE | ~2022-09-11 | XR_ITS ---
EXAMINATION: XR CHEST CLINICAL INFORMATION: Chest pain COMPARISON: 04/18/2022 TECHNIQUE: Frontal view of the chest was obtained. FINDINGS: Median sternotomy. Dual-lead pacemaker stably position. Normal symmetric lung volumes. No parenchymal consolidation. No pleural effusion. No pneumothorax. Cardiomediastinal silhouette and pulmonary vascularity are within normal limits. No acute osseous abnormalities. XR/XR chest 1V IMPRESSION: No acute findings
[2022-09-11 22:24] VITALS: BP 148/66; PULSE 80; O2SAT 97; BMI 29.8
[2022-09-11 22:39] VITALS: BP 139/64; PULSE 82; RESP 16; TEMP 36.6; O2SAT 98
--- NOTE | 2022-09-11 22:41 | ED.CHESTPAIN ---
HPI - Chest Pain General Chief Complaint: Chest Pain Stated Complaint: chest pain Time Seen by Provider: 09/11/22 22:21 Source: patient Limitations: no limitations History of Present Illness HPI narrative: This is a 62-year-old female with a history of coronary artery disease, status post CABG, also history of GERD, gastroparesis, anxiety, CHF, diabetes, hyperlipidemia, chronic kidney disease, who complains of chest pain that began mildly this morning intermittently which got worse over the course of the day. The patient does not feel like it is similar pain to when she had acute coronary syndrome or heart attack. She has had some nasal congestion and a cough and sneezing. She did have a negative COVID test at home. Denies shortness of breath. She denies unusual nausea or sweats. Pain is nonradiating. Related Data Home Medications Medication Instructions Recorded Confirmed blood sugar diagnostic (FreeStyle 07/14/22 08/20/22 Lite Strips) gabapentin 100 mg capsule 2 cap PO TID 07/14/22 08/20/22 insulin aspart U-100 100 unit/mL 8 unit subcut TIDAC 07/14/22 08/20/22 (3 mL) subcutaneous pen (Novolog Flexpen U-100 Insulin aspart) insulin degludec 100 unit/mL (3 32 unit subcut DAILY 07/14/22 08/20/22 mL) subcutaneous pen (Tresiba FlexTouch U-100 insulin) linagliptin 5 mg tablet (Tradjenta) 1 tab PO DAILY 07/14/22 08/20/22 lorazepam 0.5 mg tablet 1 tab PO BID PRN Anxiety 07/14/22 08/20/22 melatonin 5 mg tablet 1 tab PO BEDTIME 07/14/22 08/20/22 nystatin 100,000 unit/gram topical 1 applic topical BID-TID 07/14/22 08/20/22 powder (Nystop) sodium zirconium cyclosilicate 5 1 ea PO Q48H 07/14/22 08/20/22 gram oral powder packet (Lokelma) trazodone 50 mg tablet 0.5 tab PO BEDTIME PRN Insomnia 07/14/22 08/20/22 allopurinol 100 mg tablet 100 mg PO DAILY 08/20/22 08/20/22 aspirin 81 mg tablet,delayed 81 mg PO DAILY 08/20/22 08/20/22 release atorvastatin 80 mg tablet 80 mg PO BEDTIME 08/20/22 08/20/22 cetirizine 10 mg tablet 10 mg PO DAILY 08/20/22 08/20/22 cholecalciferol (vitamin D3) 25 25 mcg PO DAILY 08/20/22 08/20/22 mcg (1,000 unit) capsule clopidogrel 75 mg tablet 75 mg PO DAILY 08/20/22 08/20/22 ferrous sulfate 325 mg (65 mg 325 mg PO DAILY 08/20/22 08/20/22 iron) tablet (FeroSul) furosemide 40 mg tablet 40 mg PO DAILY 08/20/22 08/20/22 hydralazine 25 mg tablet 25 mg PO BEDTIME PRN 08/20/22 08/20/22 isosorbide mononitrate 30 mg 30 mg PO DAILY 08/20/22 08/20/22 tablet,extended release 24 hr lisinopril 5 mg tablet 5 mg PO BEDTIME 08/20/22 08/20/22 metoclopramide HCl 5 mg tablet 5 mg PO TID 08/20/22 08/20/22 metoprolol succinate 25 mg 25 mg PO BID 08/20/22 08/20/22 tablet,extended release 24 hr pantoprazole 40 mg tablet,delayed 40 mg PO BID 08/20/22 08/20/22 release tamsulosin 0.4 mg capsule 0.4 mg PO DAILY 08/20/22 08/20/22 Previous Rx's Medication Instructions Recorded vancomycin 125 mg capsule 125 mg PO QID #70 caps 07/16/22 bezlotoxumab 25 mg/mL intravenous 600 mg (24 mL) IV ONCE 30 days 08/14/22 solution (Zinplava) #720 mL Allergies Allergy/AdvReac Type Severity Reaction Status Date / Time tetracycline [Tetracycline] Allergy Mild HIVES, Verified 08/14/22 14:41 anaphylaxis, anaphylaxis Review of Systems Review of Systems: Yes all other systems are reviewed and are negative Constitutional: Constitutional: Reports as per HPI and Denies fever(s) Eyes: Eyes: Reports as per HPI and Reports no additional eye complaints ENT: Reports system reviewed and no additional complaints, except as documented, Reports as per HPI, Reports nasal congestion, Reports nasal discharge and Denies sore throat Cardiovascular: Cardiovascular: Reports as per HPI, Denies chest pain and Denies dyspnea Respiratory: Respiratory: Reports as per HPI, Reports cough and Denies dyspnea Gastrointestinal: Gastrointestinal: Reports as per HPI, Denies abdominal pain, Denies diarrhea and Denies vomiting Genitourinary: Genitourinary: Reports as per HPI, Denies hematuria, Denies urinary frequency and Denies dysuria Musculoskeletal: Musculoskeletal: Reports no additional musculoskeletal complaints and Denies numbness Integumentary/Breasts: Skin/Breast: Reports as per HPI and Denies rash Neurologic: Reports as per HPI, Denies focal weakness and Denies numbness Psychiatric: Psychiatric: Reports no additional psychiatric complaints and Reports as per HPI Endocrine: Endocrine: Reports no additional endocrine complaints and Reports as per HPI Hematologic/Lymphatic: Hematologic/Lymphatic: Reports no additional hematologic/lymphatic complaints, Reports as per HPI and Reports other (No peripheral edema) [facility] Past Medical History Medical History (Updated 09/12/22 @ 01:43 by Henri Salmon MD) Acute heart failure with preserved ejection fraction Anemia Anxiety Arthritis Cardiac pacemaker in situ Carpal tunnel syndrome CHF (congestive heart failure) Chronic heart failure with preserved ejection fraction (HFpEF) COPD exacerbation Coronary artery disease CVA (cerebral vascular accident) Diabetes Diabetic gastroparesis Fall Gastritis Gastroparesis Gastroparesis GERD (gastroesophageal reflux disease) Headache Heart failure with preserved ejection fraction HLD (hyperlipidemia) HTN (hypertension) HTN (hypertension) Hypocalcemia Hypoxia IBS (irritable bowel syndrome) Knee pain, left Myocardial infarct Nausea and vomiting Orthostasis Renal failure Suprapatellar effusion of knee T2DM (type 2 diabetes mellitus) UTI (urinary tract infection) Surgical History H/O Achilles tendon repair History of appendectomy History of bladder surgery History of carpal tunnel release History of total hysterectomy with bilateral salpingo-oophorectomy (BSO) Hx of amputation Hx of CABG (~2019) Hx of cholecystectomy Hx of endoscopy Hx of knee surgery Hx of tonsillectomy Family History Family History Father No problems noted. Mother Diabetes Hypercholesteremia Hypertension Stroke Social History Social History Household Members: Family Household Members Other:: Granddaughter Housing: Apartment Do you presently have visiting nurse or other home services: Yes Alcohol intake: unknown Patient Tobacco Use Status: Former Tobacco user Quit Date: 24 years ago Years Smoked: 20 Second Hand Smoke Exposure: No Advance Directives: Yes Advance Directives on File: Yes Advance Directives Date on File: 01/13/22 service: No Current occupational status: disabled Physical Exam Vital Signs: Vital Signs: Last Vital Signs Temp 98 F 09/11/22 22:39 Pulse 69 09/12/22 00:31 Resp 16 09/12/22 00:31 BP 139/64 09/11/22 22:39 Pulse Ox 98 09/11/22 22:39 O2 Del Method 09/11/22 22:39 BMI result Body Mass Index 29.8 Const: General: cooperative, no acute distress, alert, awake, ill appearing and tired appearing Nutritional Appearance: obese Orientation/consciousness: patient oriented x3 Limitations: wheelchair HEENT: Head: Yes normocephalic and Yes atraumatic Neck: Neck: Yes trachea midline, Yes supple and Yes JVD Chest: Chest palpation & inspection: normal inspection of the chest and other (Well-healed sternotomy scar) Resp: Effort & Inspection: normal respiratory effort Auscultation: no crackles, no rales, no rhonchi and diminished lung sounds Cardio: Jugular venous distension: JVD Palpation: normal PMI Rate: regular rate Rhythm: regular rhythm Heart sounds: S1 normal heart sound present, S2 normal heart sound present, no click, no gallops and no murmurs GI: Auscultation: normal bowel sounds Skin: General skin exam: no rashes or lesions noted and ecchymosis Neuro: General: patient oriented x3 and no focal motor deficits Extrem: General: No clubbing, No cyanosis and Yes edema Psych: Appearance: grossly normal MDM - Chest Pain MDM Narrative Medical decision making narrative: Patient with history of chronic renal insufficiency, stage 3 kidney disease, as well as coronary artery disease, pacemaker placement, presented with chest pain as well as some URI symptoms. Troponin is borderline elevated however in the setting of kidney disease this is not concerning. Patient's potassium is markedly elevated at 6.9 and her creatinine has more than doubled since it was last evaluated. Patient was given albuterol neb, sodium bicarbonate IV, D50 1 amp IV, insulin 10 units IV, normal saline 500 mL IV bolus, Lasix 40 mg IV. She has remained stable, with no bradycardia. She has a pacemaker but on her EKG the patient has apparent P-waves in a very prolonged [place] interval, does not appear to have pacing. The patient is being admitted to the hospitalist service, Dr. Sandoval accepting Critical care time for this life-threatening illness exclusive of all other billable procedures was approximately 35 minutes including initial evaluation of the patient, ordering tests, x-ray interpretation, EKG interpretation, medical consultation, documentation, reevaluation. Medical Records Data Attestation: I reviewed the patient's medical records. Lab Data Attestation: I reviewed the patient's lab results. Result diagrams: 09/11/22 23:25 09/11/22 23:25 Labs: Lab Results 09/11/22 09/11/22 09/11/22 Range/Units 23:25 23:25 23:25 WBC 8.7 (4.8-10.8) X10*3/uL RBC 3.39 L (4.20-5.50) X10*6/uL Hgb 10.4 L (12.0-16.0) g/dl Hct 33.5 L D (37.0-47.0) % MCV 98.8 H (80.0-98.0) fL MCH 30.7 (27.0-33.0) pg MCHC 31.0 (31.0-35.0) g/dl RDW 14.4 (11.0-16.0) % Plt Count 201 (160-400) X10*3/uL MPV 10.7 (9.4-12.3) fL Immature Gran % (Auto) 0.5 H (0.0-0.4) % Neut % (Auto) 69.1 (45-73) % Lymph % (Auto) 17.7 L (20-40) % [place] % (Auto) 8.4 (2-11) % Eos % (Auto) 3.8 (0-4) % Baso % (Auto) 0.5 (0-2) % Lymph # (Auto) 1.6 (1.2-4.9) X10*3/uL [place] # (Auto) 0.7 (0.1-1.2) X10*3/uL Eos # (Auto) 0.3 (0.0-0.4) X10*3/uL Baso # (Auto) 0.0 (0.0-0.2) X10*3/uL Abs Immat Gran (auto) 0.04 H (0.00-0.03) X10*3/uL Absolute Neuts (auto) 6.1 (2.0-8.3) x10*3/uL Absolute Nucleated RBC 0.000 (0.0-0.012) X10*3/uL Nucleated RBC % (auto) 0.0 (0.0-0.2) /100WBC Sodium 140 (135-145) mmol/L Potassium 6.9 H* D (3.3-5.1) mmol/L Chloride 102 (96-108) mmol/L Carbon Dioxide 26 (22-29) mmol/L Anion Gap 19 (12-20) BUN 73 H D (9-16) mg/dL Creatinine 3.72 H (0.5-1.4) mg/dL Estim Creat Clear Calc 16.7 Estimated GFR 12 Random Glucose 155 H (60-115) mg/dL Calcium 9.0 D (8.4-10.2) mg/dL Total Bilirubin 0.4 (0.0-1.0) mg/dL AST 21 (5-31) U/L ALT 28 (0-31) U/L Alkaline Phosphatase 125 H D (39-117) U/L Troponin I High Sens 19.3 H D (<3.5-17.0) ng/L Total Protein 7.4 (6.5-8.0) g/dL Albumin 3.9 (3.5-5.0) g/dL COVID-19 ([facility]) (Negative) COVID-19 Clin Com 09/11/22 Range/Units 23:25 WBC (4.8-10.8) X10*3/uL RBC (4.20-5.50) X10*6/uL Hgb (12.0-16.0) g/dl Hct (37.0-47.0) % MCV (80.0-98.0) fL MCH (27.0-33.0) pg MCHC (31.0-35.0) g/dl RDW (11.0-16.0) % Plt Count (160-400) X10*3/uL MPV (9.4-12.3) fL Immature Gran % (Auto) (0.0-0.4) % Neut % (Auto) (45-73) % Lymph % (Auto) (20-40) % [place] % (Auto) (2-11) % Eos % (Auto) (0-4) % Baso % (Auto) (0-2) % Lymph # (Auto) (1.2-4.9) X10*3/uL [place] # (Auto) (0.1-1.2) X10*3/uL Eos # (Auto) (0.0-0.4) X10*3/uL Baso # (Auto) (0.0-0.2) X10*3/uL Abs Immat Gran (auto) (0.00-0.03) X10*3/uL Absolute Neuts (auto) (2.0-8.3) x10*3/uL Absolute Nucleated RBC (0.0-0.012) X10*3/uL Nucleated RBC % (auto) (0.0-0.2) /100WBC Sodium (135-145) mmol/L Potassium (3.3-5.1) mmol/L Chloride (96-108) mmol/L Carbon Dioxide (22-29) mmol/L Anion Gap (12-20) BUN (9-16) mg/dL Creatinine (0.5-1.4) mg/dL Estim Creat Clear Calc Estimated GFR Random Glucose (60-115) mg/dL Calcium (8.4-10.2) mg/dL Total Bilirubin (0.0-1.0) mg/dL AST (5-31) U/L ALT (0-31) U/L Alkaline Phosphatase (39-117) U/L Troponin I High Sens (<3.5-17.0) ng/L Total Protein (6.5-8.0) g/dL Albumin (3.5-5.0) g/dL COVID-19 ([facility]) Negative (Negative) COVID-19 Clin Com See Note ECG Data ECG #1: ECG interpretation date: 09/11/22 ECG interpretation time: 22:57 Interpretation: Sinus rhythm with a rate of 84. Right bundle branch block. Q-waves in lead V1. T-wave inversion in leads V5 and V6 as well as the inferior leads. Discharge Plan Discharge Clinical Impression: Acute hyperkalemia, Chest pain, Acute kidney injury, Chronic kidney disease Patient Disposition: Admitted As Inpatient Prescriptions: No Action trazodone 50 mg tablet 0.5 tab PO BEDTIME PRN (Reason: Insomnia) (DME) FreeStyle Lite Strips Strip MISCELLANEOUS lorazepam 0.5 mg tablet 1 tab PO BID PRN (Reason: Anxiety) gabapentin 100 mg capsule 2 cap PO TID nystatin [Nystop] 100,000 unit/gram powder 1 applic topical BID-TID insulin aspart U-100 [Novolog Flexpen U-100 Insulin] 100 unit/mL (3 mL) insulin pen 8 unit subcut TIDAC melatonin 5 mg tablet 1 tab PO BEDTIME Tradjenta 5 mg tablet 1 tab PO DAILY Tresiba FlexTouch U-100 100 unit/mL (3 mL) insulin pen 32 unit subcut DAILY Lokelma 5 gram powder in packet 1 ea PO Q48H vancomycin 125 mg capsule 125 mg PO QID Qty: 70 0RF Rx Instructions: 125 mg q.i.d. for 1 week 125 mg t.i.d. for 1 week 125 mg b.i.d. for 1 week 125 mg daily for 1 week and then 125 mg , , indefinitely after that allopurinol 100 mg tablet 100 mg PO DAILY aspirin 81 mg tablet,delayed release (DR/EC) 81 mg PO DAILY atorvastatin 80 mg tablet 80 mg PO BEDTIME cetirizine 10 mg tablet 10 mg PO DAILY cholecalciferol (vitamin D3) 25 mcg (1,000 unit) capsule 25 mcg PO DAILY clopidogrel 75 mg tablet 75 mg PO DAILY ferrous sulfate [FeroSul] 325 mg (65 mg iron) tablet 325 mg PO DAILY furosemide 40 mg tablet 40 mg PO DAILY hydralazine 25 mg tablet 25 mg PO BEDTIME PRN isosorbide mononitrate 30 mg tablet extended release 24 hr 30 mg PO DAILY lisinopril 5 mg tablet 5 mg PO BEDTIME metoclopramide HCl 5 mg tablet 5 mg PO TID metoprolol succinate 25 mg tablet extended release 24 hr 25 mg PO BID pantoprazole 40 mg tablet,delayed release (DR/EC) 40 mg PO BID tamsulosin 0.4 mg capsule 0.4 mg PO DAILY Zinplava 25 mg/mL solution 600 mg IV ONCE 30 Days Qty: 720 0RF
[2022-09-11] MEDS: LORazepam 1 MG TABLET PO (22:47)
--- OUTSIDE RECORDS SUMMARY | 2022-09-11 22:51 | XMS_ITS | Continuity of Care Document ---
:1960 Author Organization [facility] Address [address] [place] [address]- Care Team Providers Name Role Phone Shaneka Burton DO Primary Care Physician Encounter [facility] [place] Date(s): 04/16/21 - 04/17/[address] [address] Encounter Diagnosis Precordial chest pain (Final) - 04/16/21 Lightheadedness (Final) - 04/16/21 Discharge Disposition: A-D/C Home Attending Physician: Beth Gao MD Admitting Physician: Rob Smart MD Referring Physician: Not on Staff, Referring MD Allergies, Adverse Reactions, Alerts Substance Reaction Severity Status tetracycline Anaphylaxis Active hives Immunizations Given and Recorded Vaccine Date Status Refusal Reason influenza virus vaccine, inactivated 01/17/21 Given pneumococcal 23-valent vaccine 01/17/21 Given Not Given Vaccine Date Status Refusal Reason influenza virus vaccine, inactivated1 01/12/20 Not Given Patient Refuses pneumococcal 23-valent vaccine2 01/12/20 Not Given Patient Refuses pneumococcal 23-valent vaccine 12/28/19 Not Given P atient Refuses pneumococcal 23-valent vaccine 05/11/19 Not Given P atient Refuses 1Result Comment: States already got that this year 2Result Comment: States already got that this year Medications acetaminophen 325 mg oral capsule 2 capsule = 650 mg, By Mouth, Every 4 hours, PRN as needed for pain, # 20 capsule, 0 Refills, Acute 04/21/21 14:46:00 EDT, 04/17/21 14:46:00 EDT, Capsule, [facility], Partial fill upon patient request if the prescription is for a schedul... Start Date: 04/17/21 Stop Date: 04/21/21 Status: Orderedallopurinol 100 mg oral tablet 100 mg, 1, tablet, By Mouth, Daily, # 30 tablet, Refills 0, Maintenance, 02/26/21 1:54:00 EDT, Partial fill upon patient request if the prescription is for a schedule II opioid drug. Start Date: 02/26/21 Status: OrderedamLODIPine 5 mg oral tablet 1 tablet = 5 mg, By Mouth, Daily, # 90 tablet, 0 Refills, Maintenance, 02/26/21 1:51:00 EDT, Tablet,Partial fill upon patient request if the prescription is for a schedule II opioid drug. Start Date: 02/26/21 Status: Orderedatorvastatin 40 mg oral tablet 1 tablet = 40 mg, By Mouth, Daily, # 30 tablet, 0 Refills, Maintenance, 02/26/21 1:53:00 EDT, Tablet, Partial fill upon patient request if the prescription is for a schedule II opioid drug. Start Date: 02/26/21 Status: Ordereddiclofenac 1% topical gel 1 application, Topically, 4 times a day, # 100 Gm, 0 Refills, Maintenance, 02/26/21 1:55:00 EDT, Gel, Partial fill upon patient request if the prescription is for a schedule II opioid drug. Start Date: 02/26/21 Status: Orderedferrous sulfate 325 mg oral tablet 1 tablet = 325 mg, By Mouth, Daily, # 90 tablet, 0 Refills, Maintenance, 02/26/21 1:51:00 EDT, Tablet, Partial fill upon patient request if the prescription is for a schedule II opioid drug. Start Date: 02/26/21 Status: Orderedfludrocortisone 0.1 mg oral tablet 1 tablet = 0.1 mg, By Mouth, Daily, # 30 tablet, 0 Refills, Maintenance, 02/26/21 1:52:00 EDT, Tablet, Partial fill upon patient request if the prescription is for a schedule II opioid drug. Start Date: 02/26/21 Status: Orderedgabapentin 100 mg oral capsule 200 mg, Capsule, By Mouth, 04/17/21 15:00:00 EDT Start Date: 04/17/21 Stop Date: 04/17/21 Status: Completedgabapentin 100 mg oral capsule 200 mg, 2, capsule, By Mouth, 3 times a day, # 180 capsule, Refills 0, Tot. Refills 0, Maintenance, 03/03/21 11:06:00 EDT, Route to Pharmacy Electronically, [facility], Partial fill upon patient request if the prescription is for a sched... Start Date: 03/03/21 Status: Orderedinsulin degludec 100 units/mL subcutaneous solution = 12 units, Subcutaneous Injection, Daily, # 24 mL, 0 Refills, Maintenance, 03/03/21 11:05:00 EDT, [facility], Partial fill upon patient request if the prescription is for a schedule II opioid drug., 158, cm, 03/02/21 16:50:00 EDT, Heigh... Start Date: 03/03/21 Status: OrderedlevoFLOXacin 250 mg oral tablet 1 tablet = 250 mg, By Mouth, Every 24 hours, # 2 tablet, 0 Refills, Acute 04/19/21 21:00:00 EDT, 04/17/21 14:29:00 EDT, Tablet, [facility], Partial fill upon patient request if the prescription is for a schedule II opioid drug., 158, cm,... Start Date: 04/17/21 Stop Date: 04/19/21 Status: OrderedLORazepam 0.5 mg oral tablet 1 tablet = 0.5 mg, By Mouth, 2 times a day, PRN as needed for anxiety, 0 Refills, Maintenance, 02/26/21 1:52:00 EDT, Tablet, Partial fill upon patient request if the prescription is for a schedule II opioid drug. Start Date: 02/26/21 Status: OrderedMELATONIN TAB 5MG MELATONIN TAB 5MG, 0 Refills, Maintenance, 02/26/21 1:54:00 EDT Start Date: 02/26/21 Status: OrderedMetoprolol Succinate ER 50 mg oral tablet, extended release 1 tablet = 50 mg, By Mouth, Daily, # 30 tablet, 0 Refills, Maintenance, 02/26/21 1:54:00 EDT, ER Tablet, Partial fill upon patient request if the prescription is for a schedule II opioid drug. Start Date: 02/26/21 Status: OrderedNorvasc 5 mg oral tablet 5 mg, Tablet, By Mouth, 04/17/21 9:00:00 EDT Start Date: 04/17/21 Stop Date: 04/17/21 Status: CompletedoxyCODONE 5 mg oral capsule 1 capsule = 5 mg, By Mouth, Every 6 hours, PRN as needed for pain, # 10 capsule, 0 Refills, Acute 04/19/21 15:30:00 EDT, 04/17/21 14:30:00 EDT, Capsule, [facility], Partial fill upon patient request if the prescription is for a schedule... Start Date: 04/17/21 Stop Date: 04/19/21 Status: Orderedpantoprazole 40 mg oral delayed release tablet 1 tablet = 40 mg, By Mouth, Daily, # 90 tablet, 0 Refills, Maintenance, 02/26/21 1:52:00 EDT, EC Tablet Start Date: 02/26/21 Status: OrderedReglan 5 mg oral tablet 1 tablet = 5 mg, By Mouth, 3 times a day before meals and bedtime, # 120 tablet, 0 Refills, Maintenance, 03/03/21 11:06:00 EDT, Tablet, [facility], Partial fill upon patient request if the prescription is for a schedule II opioid drug.,... Start Date: 03/03/21 Status: Orderedtamsulosin 0.4 mg oral capsule 0.4 mg, 1, capsule, By Mouth, Daily, # 30 capsule, Refills 0, Maintenance, 02/26/21 1:54:00 EDT, Partial fill upon patient request if the prescription is for a schedule II opioid drug. Start Date: 02/26/21 Status: OrderedToprol XL 50 mg oral tablet, extended release 50 mg, XL Tablet, By Mouth, 04/17/21 9:00:00 EDT Start Date: 04/17/21 Stop Date: 04/17/21 Status: Completedvenlafaxine 150 mg oral capsule, extended release 1 capsule = 150 mg, By Mouth, Daily, # 30 capsule, 0 Refills, Maintenance, 02/26/21 1:55:00 EDT, ER Capsule, Partial fill upon patient request if the prescription is for a schedule II opioid drug. Start Date: 02/26/21 Status: OrderedVitamin D3 1000 intl units oral capsule 1 capsule = 1,000 International_Units, By Mouth, Daily, # 100 capsule, 0 Refills, Maintenance, 02/26/21 1:52:00 EDT, Capsule, Partial fill upon patient request if the prescription is for a schedule II opioid drug. Start Date: 02/26/21 Status: Ordered Problem List Condition Effective Dates Status Health Status Informant NSTEMI (non-ST elevated myocardial Active infarction)(Confirmed) Anxiety and depression(Confirmed) Active Symptomatic bradycardia(Confirmed) Active Pacemaker(Confirmed) Active CVA (cerebral vascular Active accident)(Confirmed) Chest pain(Confirmed) Active Chronic diarrhea(Confirmed) Active CKD (chronic kidney Active disease)(Confirmed) CAD (coronary artery 02/07/18 Active disease)(Confirmed) Diffuse myofascial pain Active syndrome(Confirmed) Ex-smoker(Confirmed) Active Gastroparesis/gastritis(Confirmed) Active Hyperglycemia due to diabetes Active mellitus(Confirmed) Hyperkalemia(Confirmed) Active HLD (hyperlipidemia)(Confirmed) Active HTN (hypertension)(Confirmed) Active Incomplete right bundle branch Active block(Confirmed) Insulin-requiring or dependent type II Active diabetes mellitus(Confirmed) Left anterior fascicular Active block(Confirmed) Neurogenic bladder(Confirmed) Active OA (osteoarthritis)(Confirmed) Active Post traumatic stress disorder Active (PTSD)(Confirmed) QT prolongation(Confirmed) Active Results Radiology Reports Exam Date Time Procedure Performing Provider Status 04/16/21 2:25 PM Chest Portable Angela Mehta ([facility] ed) Notes:(Chest Portable) Reason For Exam: Shortness of BreathRESULT: Chest Portable Chest Portable Hx of Present Illness: pt rpeort dizziness today with chest pressure. Pt reports that she was feeling unwell yesterday and contuiend today; Reason: Shortness of Breath; Clinical Question(s): Pneumonia;Special Instructions: PUI COMPARISON: 02/25/2021 FINDINGS: Stable pacer leads. No acute cardiopulmonary process. IMPRESSION: No acute abnormality. WSN: [id number] Ordering Physician: Sade Fulton Dictated By: Jordin Rojo MD Dictated Date/Time: 04/16/21 2:27 pm Reviewed By: Jordin Rojo MD Signed By: Jordin Rojo MD Signed Date/Time: 04/16/21 2:27 pm Transcribed By: LYN Transcribed Date/Time: 04/16/21 2:26 pm Vital Signs Most recent to oldest 1 2 3 [Reference Range]: Oxygen Saturation [94-100 %] 99 % 97 % 98 % (04/17/21 3:04 PM) (04/17/21 11:00 AM) (04/17/21 7: 25 AM) Pulse Rate [55-90 bpm] 79 bpm 81 bpm 86 bpm (04/17/21 3:04 PM) (04/17/21 11:00 AM) (04/17/21 8: 18 AM) Blood Pressure [90-138/55-84 124/56 mm Hg 109/59 mm Hg 153 /78 mm Hg mm Hg] (04/17/21 3:04 PM) (04/17/21 11:00 AM) *H* (04/17/21 8:19 AM ) Respiratory Rate [16-30 18 br/min 20 br/min 18 br/mi n br/min] (04/17/21 4:02 PM) (04/17/21 3:04 PM) (04/17/21 11: 00 AM) Temperature [96.8-100.4 DegF] 98.6 DegF 99 DegF 98 .6 DegF (04/17/21 3:04 PM) (04/17/21 11:00 AM) (04/17/21 7: 25 AM) Mode of Delivery (Oxygen) Room air Room air Room a ir (04/17/21 3:04 PM) (04/17/21 11:00 AM) (04/17/21 7: 25 AM) Blood pressure sites Arm, left Arm, left Arm, left (04/17/21 3:04 PM) (04/17/21 11:00 AM) (04/17/21 7: 25 AM) Temperature Route Oral Oral Oral (04/17/21 3:04 PM) (04/17/21 11:00 AM) (04/17/21 7: 25 AM) Social History Social History Type Response Smoking Status Former smoker; Tobacco user in household: No entered on: 07/07/16 Sex
--- OUTSIDE RECORDS SUMMARY | 2022-09-11 22:51 | XMS_ITS | Continuity of Care Document ---
:1960 Author Organization [facility] Address [address] [place] [address]- Care Team Providers Name Role Phone Shaneka Burton DO Primary Care Physician Encounter [facility] Date(s): 04/25/21 - 04/27/[address] [address] Encounter Diagnosis Acute coronary syndrome (Final) - 04/25/21 Acute coronary syndrome (Final) - 04/25/21 Discharge Disposition: A-D/C Home Attending Physician: Pastor Lopez MD Admitting Physician: Beth Cho MD Referring Physician: Not on Staff, Referring [...] States already got that this year Medications allopurinol 100 mg oral tablet 100 mg, 1, [...] opioid drug. Start Date: 02/26/21 Status: Orderedatorvastatin 80 mg oral tablet 1 tablet = 80 mg, By Mouth, Daily at bedtime, # 30 tablet, 3 Refills, Maintenance, 04/27/21 16:20:00EDT, Tablet, [facility], Partial fill upon patient request if the prescription is for a schedule II opioid drug., 158, cm, 03/02/21 16:5... Start Date: 04/27/21 Status: Ordereddiclofenac 1% topical gel 1 application, [...] oral capsule 200 mg, Capsule, By Mouth, 04/27/21 9:00:00 EDT Start Date: 04/27/21 Stop Date: 04/27/21 Status: Completedgabapentin 100 mg oral capsule 200 mg, Capsule, By Mouth, 04/27/21 15:00:00 EDT Start Date: 04/27/21 Stop Date: 04/27/21 Status: Completedgabapentin 100 mg oral capsule 200 mg, 2, capsule, By Mouth, 3 times a day, # 180 capsule, Refills 0, Tot. Refills 0, Maintenance, 03/03/21 11:06:00 EDT, Route to Pharmacy Electronically, [facility], Partial fill upon patient request if the prescription is for a sched... Start Date: 03/03/21 Status: Orderedinsulin degludec 100 units/mL subcutaneous solution = 12 units, Subcutaneous Injection, Daily, # 24 mL, 0 Refills, Maintenance, 03/03/21 11:05:00 EDT, [facility], Partial fill upon patient request if the prescription is for a schedule II opioid drug., 158, cm, 03/02/21 16:50:00 EDT, Heigh... Start Date: 03/03/21 Status: OrderedLORazepam 0.5 mg oral tablet 1 [...] II opioid drug. Start Date: 02/26/21 Status: Orderedpantoprazole 40 mg oral delayed release tablet 1 tablet = 40 mg, By Mouth, Daily, # 90 tablet, 0 Refills, Maintenance, 02/26/21 1:52:00 EDT, EC Tablet Start Date: 02/26/21 Status: OrderedReglan 5 mg oral tablet 1 tablet = 5 mg, By Mouth, 3 times a day before meals and bedtime, # 120 tablet, 0 Refills, Maintenance, 03/03/21 11:06:00 EDT, Tablet, [facility], Partial fill upon patient request if the prescription is for a schedule II opioid drug.,... Start Date: 03/03/21 Status: Orderedtamsulosin 0.4 mg oral capsule 0.4 mg, 1, capsule, By Mouth, Daily, # 30 capsule, Refills 0, Maintenance, 02/26/21 1:54:00 EDT, Partial fill upon patient request if the prescription is for a schedule II opioid drug. Start Date: 02/26/21 Status: Orderedvenlafaxine 150 mg oral capsule, extended release 1 [...] Exam Date Time Procedure Performing Provider Status 04/25/21 2:39 PM Chest 2 Views Frontal and Lat Renae Ventura; Barney (Verified) Notes:(Chest 2 Views Frontal and Lat) Reason For Exam: Chest Pain;Other:RESULT: Chest 2 Views Frontal and Lat Chest 2 Views Frontal and Lat Hx of Present Illness: CP and weakness since yesterday. Hx of CABG ; Clinical Question(s): CHF COMPARISON: 04/16/2021 FINDINGS: LINES AND TUBES: Dual-lead left subclavian pacer wires are intact. LUNGS AND PLEURA: Clear lungs. Normal pulmonary vascularity. No pleural effusion. No pneumothorax. HEART, MEDIASTINUM AND TUNG: Heart is normal in size. Status post CABG. Normal upper mediastinal and hilar contour. BONES AND SOFT TISSUES: No acute abnormality. Median sternotomy wires are intact. IMPRESSION: No acute cardiopulmonary abnormality. I have personally reviewed the images and I agree with this report. WSN: [id number] Ordering Physician: Yessica Rosa Dictated By: Keegan Koehler MD Dictated Date/Time: 04/25/21 2:44 pm Reviewed By: Nicola Beal MD Signed By: Nicola Beal MD Signed Date/Time: 04/25/21 2:49 pm Transcribed By: LYN Transcribed Date/Time: 04/25/21 2:42 pm Vital Signs Most recent to oldest [Reference 1 2 3 Range]: Weight 77 kg 76.9 kg (04/27/21 6:11 AM) (04/26/21 3:57 AM) Oxygen Saturation [94-100 %] 97 % 97 % 93 % (04/27/21 3:57 PM) (04/27/21 8:28 AM) *L* (04/27/21 6:11 AM) Pulse Rate [55-90 bpm] 61 bpm 69 bpm 64 bpm (04/27/21 3:57 PM) (04/27/21 8:28 AM) (04/27/21 6:11 A M) Blood Pressure [90-138/55-84 mm 121/57 mm Hg 137/63 mm Hg 139/75 mm Hg Hg] (04/27/21 3:57 PM) (04/27/21 8:28 AM) *H* (04/27/21 6:11 AM) Respiratory Rate [16-30 br/min] 18 br/min 18 br/min 18 br/min (04/27/21 3:57 PM) (04/27/21 3:56 PM) (04/27/21 9:32 A M) Temperature [96.8-100.4 DegF] 97.3 DegF 97.8 DegF 98 .3 DegF (04/27/21 3:57 PM) (04/27/21 8:28 AM) (04/27/21 6:11 A M) Mode of Delivery (Oxygen) Room air Room air Room a ir (04/27/21 3:57 PM) (04/27/21 8:28 AM) (04/27/21 6:11 A M) Blood pressure sites Arm, right Arm, right Arm, right (04/27/21 3:57 PM) (04/27/21 8:28 AM) (04/27/21 6:11 A M) Temperature Route Oral Oral Oral (04/27/21 3:57 PM) (04/27/21 8:28 AM) (04/27/21 6:11 A M) Weight Obtained Via Bed scale Bed scale (04/27/21 6:11 AM) (04/26/21 3:57 AM) Social History Social History Type Response Smoking Status Former smoker; Tobacco user in household: No entered on: 07/07/16 Sex
--- OUTSIDE RECORDS SUMMARY | 2022-09-11 22:51 | XMS_ITS | Continuity of Care Document ---
:1960 Author Organization [facility] Address [address] [place] [address]- Care Team Providers Name Role Phone Shaneka Burton DO Primary Care Physician [place] [facility] [place](s[place] 10/02/20 - 11/07/[address] [address] Attending Physician: Beatriz Peterson MD Admitting Physician: Beatriz Peterson MD Referring Physician: Joshua Sharif MD Allergies, Adverse Reactions, Alerts Substance Reaction Severity Status tetracycline Anaphylaxis Active hives Immunizations Not Given Vaccine Date Status Refusal Reason pneumococcal 23-valent vaccine1 01/12/20 Not Given Patient Refuses pneumococcal 23-valent vaccine 12/28/19 Not Given P atient Refuses pneumococcal 23-valent vaccine 05/11/19 Not Given P atient Refuses influenza virus vaccine, inactivated2 01/12/20 Not Given Patient Refuses 1Result Comment: States already got that this year 2Result Comment: States already got that this year Medications amLODIPine 5 mg oral tablet 5 mg, 1, tablet, By Mouth, Daily, # 15 tablet, Refills 1, Tot. Refills 1, Maintenance, 01/16/20 9:59:00 EST, Route to Pharmacy Electronically, [id number], 158, cm, 01/15/20 20:17:00 EST, Height, 64, kg, 01/11/20 21:31:00 EST, Dry Weight Start Date: 01/16/20 Status: Orderedammonium lactate 12% topical cream See Instructions, Topically 2 times a day to feet, # 140 Gm, 0 Refills, Maintenance, 01/16/20 10:04:00 EST, Cream, [id number], Topically 2 times a day to feet, 158, cm, 01/15/20 20:17:00 EST, Height, 64, kg, 01/11/20 21:31:00 EST, Dry... Start Date: 01/16/20 Status: Orderedaspirin 81 mg oral tablet 1 tablet = 81 mg, By Mouth, Daily, # 15 tablet, 1 Refills, Maintenance, 01/16/20 10:00:00 EST, Tablet, [facility][id number], 158, cm, 01/15/20 20:17:00 EST, Height, 64, kg, 01/11/20 21:31:00 EST, Dry Weight Start Date: 01/16/20 Stop Date: 03/16/20 Status: Orderedatorvastatin 80 mg oral tablet 1 tablet = 80 mg, By Mouth, Daily, # 15 tablet, 1 Refills, Maintenance, 01/16/20 10:01:00 EST, Tablet, [facility] #[id number], 158, cm, 01/15/20 20:17:00 EST, Height, 64, kg, 01/11/20 21:31:00 EST, Dry Weight Start Date: 01/16/20 Stop Date: 03/16/20 Status: OrderedEffexor XR 150 mg oral capsule, extended release 150 mg, 1, capsule, By Mouth, Daily, # 15 capsule, Refills 1, Tot. Refills 1, Maintenance, 01/16/20 10:04:00 EST, Route to Pharmacy Electronically, [facility] #[id number], 158, cm, 01/15/20 20:17:00 EST, Height, 64, kg, 01/11/20 21:31:00 EST, Dry... Start Date: 01/16/20 Status: Orderedgabapentin 600 mg oral tablet 1 tablet = 600 mg, By Mouth, 3 times a day, # 45 tablet, 1 Refills, Maintenance, 01/16/20 10:01:00 EST, Tablet, [facility] #[id number], 158, cm, 01/15/20 20:17:00 EST, Height, 64, kg, 01/11/20 21:31:00 EST, Dry Weight Start Date: 01/16/20 Status: OrderedLantus Solostar Pen 100 units/mL subcutaneous solution = 50 units, Subcutaneous Injection, Daily in AM, MUST MAKE [facility] KEEP [facility] , E11.9, # 30 mL, 0 Refills, Maintenance, 05/28/20 14:29:00 EDT, Solution, [facility] #[id number], 158, cm, 01/15/20 20:17:00 ES... Start Date: 05/28/20 Stop Date: 06/27/20 Status: OrderedLORazepam 0.5 mg oral tablet 0.5 tablet = 0.25 mg, By Mouth, 2 times a day, PRN as needed for anxiety, 0 Refills, Maintenance, 06/14/20 11:15:00 EDT, Tablet Start Date: 06/14/20 Status: Orderedmetoclopramide 5 mg oral tablet 1 tablet = 5 mg, By Mouth, 4 times a day, # 60 tablet, 1 Refills, Maintenance, 01/16/20 10:03:00 EST, Tablet, [facility] #[id number], 158, cm, 01/15/20 20:17:00 EST, Height, 64, kg, 01/11/20 21:31:00 EST, Dry Weight Start Date: 01/16/20 Status: OrderedNovoLOG FlexPen 100 units/mL injectable solution See Instructions, take 8-18 units of novolog 3 times a day with meals per sliding scale. No more than 54 units a day. E 11.9, # 30 mL, 1 Refills, Maintenance, 01/16/20 10:00:00 EST, [facility] #[id number], 100-149 8 UNITS; 150-199 10 UNITS; 200... Start Date: 01/16/20 Status: Orderedomeprazole 20 mg oral enteric coated capsule 1 capsule = 20 mg, By Mouth, Daily, # 90 capsule, 0 Refills, Maintenance, 06/14/20 11:15:00 EDT, EC Capsule Start Date: 06/14/20 Status: OrderedPen Orlinda, 31 G x 5 mm BD Ultra Fine III See Instructions, # 100 each, Refills 5, Tot. Refills 5, Maintenance, Check Blood sugar three times a day before meals and at bedtime, 03/03/19 15:36:24 EDT, Compound Start Date: 03/03/19 Stop Date: 08/30/19 Status: Ordered Problem List Condition Effective Dates Status Health Status Informant NSTEMI (non-ST elevated myocardial Active infarction)(Confirmed) Anxiety and depression(Confirmed) Active Symptomatic bradycardia(Confirmed) Active Pacemaker(Confirmed) Active CVA (cerebral vascular Active accident)(Confirmed) Chronic diarrhea(Confirmed) Active CKD (chronic kidney Active disease)(Confirmed) CAD (coronary artery 02/07/18 Active disease)(Confirmed) Diffuse myofascial pain Active syndrome(Confirmed) Ex-smoker(Confirmed) Active Gastroparesis/gastritis(Confirmed) Active HLD (hyperlipidemia)(Confirmed) Active Incomplete right bundle branch Active block(Confirmed) Insulin-requiring or dependent type II Active diabetes mellitus(Confirmed) Left anterior fascicular Active block(Confirmed) Neurogenic bladder(Confirmed) Active OA (osteoarthritis)(Confirmed) Active Post traumatic stress disorder Active (PTSD)(Confirmed) Social History Social History Type Response Smoking Status Former smoker; Tobacco user in household: No entered on: 07/07/16 Sex Female
--- OUTSIDE RECORDS SUMMARY | 2022-09-11 22:52 | XMS_ITS | Continuity of Care Document ---
:1960 Author Organization [facility] Address [address] [place] [address]- Care Team Providers Name Role Phone Shaneka Burton DO Primary Care Physician Encounter [facility] Date(s): 01/31/21 - 03/02/21 [facility] [address], [place] [address] Attending Physician: Santi Mack Admitting Physician: AdmSanti gatica Referring Physician: Admtr, Ar8 Allergies, Adverse Reactions, Alerts Substance Reaction Severity [...] States already got that this year Medications acetaminophen-HYDROcodone 325 mg-5 mg oral tablet 1 tablet, By Mouth, Every 6 hours, PRN as needed for pain, 0 Refills, Maintenance, 02/26/21 1:53:00 EDT, Tablet, Partial fill upon patient request if the prescription is for a schedule II opioid drug. Start Date: 02/26/21 Status: Orderedallopurinol 100 mg oral tablet 100 [...] II opioid drug. Start Date: 02/26/21 Status: OrderedAspirin Enteric Coated 81 mg oral delayed release tablet 0 Refills, Maintenance, 02/26/21 1:51:00 EDT, Partial fill upon patient request if [...] II opioid drug. Start Date: 02/26/21 Status: Orderedfurosemide 40 mg oral tablet 40 mg, 1, tablet, By Mouth, Daily, # 90 tablet, Refills 0, Maintenance, 02/26/21 1:55:00 EDT, Partial fill upon patient request if the prescription is for a schedule II opioid drug. Start Date: 02/26/21 Status: Orderedgabapentin 600 mg oral tablet 1 tablet = 600 mg, By Mouth, 3 times a day, # 90 tablet, 0 Refills, Maintenance, 02/26/21 1:52:00 EDT, Tablet, Partial fill upon patient request if the prescription is for a schedule II opioid drug. Start Date: 02/26/21 Status: OrderedLORazepam 0.5 mg oral tablet 1 [...] EDT, EC Tablet Start Date: 02/26/21 Status: Orderedscopolamine 1 mg/72 hr transdermal film, extended release 0 Refills, Maintenance, 02/26/21 1:53:00 EDT, Partial fill upon patient request if the prescription is for a schedule II opioid drug. Start Date: 02/26/21 Status: Orderedtamsulosin 0.4 mg oral capsule 0.4 mg, 1, capsule, By Mouth, Daily, # 30 capsule, Refills 0, Maintenance, 02/26/21 1:54:00 EDT, Partial fill upon patient request if the prescription is for a schedule II opioid drug. Start Date: 02/26/21 Status: OrderedTresiba FlexTouch 100 units/mL subcutaneous solution = 24 units, 0 Refills, Maintenance, 01/27/21 11:17:00 EST, Partial fill upon patient request if the prescription is for a schedule II opioid drug. Start Date: 01/27/21 Status: OrderedTresiba FlexTouch 100 units/mL subcutaneous solution 0 Refills, Maintenance, 02/26/21 1:52:00 EDT, Partial fill upon patient request if [...] stress disorder Active (PTSD)(Confirmed) QT prolongation(Confirmed) Active Social History Social History Type Response Smoking Status Former smoker; Tobacco user in household: No entered on: 07/07/16 Sex
--- OUTSIDE RECORDS SUMMARY | 2022-09-11 22:52 | XMS_ITS | Continuity of Care Document ---
:1960 Author Organization [facility] Address [address] [place] [address]- Care Team Providers Name Role Phone Shaneka Burton DO Primary Care Physician En[place] [facility] Date(s): 10/02/20 - 11/07/[address] [address] Attending Physician: Joshua Sharif MD Admitting Physician: Joshua Sharif MD Referring Physician: Joshua Sharif MD Allergies, [...] 01/16/20 9:59:00 EST, Route to Pharmacy Electronically, [facility] #[id number], 158, cm, 01/15/20 20:17:00 EST, Height, 64, kg, 01/11/20 21:31:00 EST, Dry Weight Start Date: 01/16/20 Status: Orderedammonium lactate 12% topical cream See Instructions, Topically 2 times a day to feet, # 140 Gm, 0 Refills, Maintenance, 01/16/20 10:04:00 EST, Cream, [facility] #[id number], Topically 2 times a day to feet, 158, cm, 01/15/20 20:17:00 EST, Height, 64, kg, 01/11/20 21:31:00 EST, Dry... Start Date: 01/16/20 Status: Orderedaspirin 81 mg oral tablet 1 tablet = 81 mg, By Mouth, Daily, # 15 tablet, 1 Refills, Maintenance, 01/16/20 10:00:00 EST, Tablet, [facility] #[id number], 158, cm, 01/15/20 20:17:00 EST, Height, 64, kg, 01/11/20 21:31:00 EST, Dry Weight Start Date: 01/16/20 Stop Date: 03/16/20 Status: Orderedatorvastatin 80 mg oral tablet 1 tablet = 80 mg, By Mouth, Daily, # 15 tablet, 1 Refills, Maintenance, 01/16/20 10:01:00 EST, Tablet, [facility] #[id number], 158, cm, 01/15/20 20:17:00 EST, Height, 64, kg, 01/11/20 21:31:00 EST, Dry Weight Start Date: 01/16/20 Stop Date: 03/16/20 Status: OrderedEffexor XR 150 mg oral capsule, extended release 150 mg, 1, capsule, By Mouth, Daily, # 15 capsule, Refills 1, Tot. Refills 1, Maintenance, 01/16/20 10:04:00 EST, Route to Pharmacy Electronically, [facility] #[id number], 158, cm, 01/15/20 20:17:00 EST, Height, 64, kg, 01/11/20 21:31:00 EST, Dry... Start Date: 01/16/20 Status: Orderedgabapentin 600 mg oral tablet 1 tablet = 600 mg, By Mouth, 3 times a day, # 45 tablet, 1 Refills, Maintenance, 01/16/20 10:01:00 EST, Tablet, [facility] #[id number], 158, cm, 01/15/20 20:17:00 EST, Height, 64, kg, 01/11/20 21:31:00 EST, Dry Weight Start Date: 01/16/20 Status: OrderedLantus Solostar Pen 100 units/mL subcutaneous solution = 50 units, Subcutaneous Injection, Daily in AM, MUST MAKE AND KEEP [facility], , E11.9, # 30 mL, 0 Refills, Maintenance, 05/28/20 14:29:00 EDT, Solution, [facility] #[id number], 158, cm, 01/15/20 20:17:00 ES... Start Date: [...] 1 Refills, Maintenance, 01/16/20 10:03:00 EST, Tablet, [facility] #[id number], 158, cm, 01/15/20 20:17:00 EST, Height, 64, kg, 01/11/20 21:31:00 EST, Dry Weight Start Date: 01/16/20 Status: OrderedNovoLOG FlexPen 100 units/mL injectable solution See Instructions, take 8-18 units of novolog 3 times a day with meals per sliding scale. No more than 54 units a day. E 11.9, # 30 mL, 1 Refills, Maintenance, 01/16/20 10:00:00 EST, [facility] #[id number], 100-149 8 UNITS; 150-199 10 UNITS; 200... Start Date: 01/16/20 Status: Orderedomeprazole 20 mg oral enteric coated capsule 1 capsule = 20 mg, By Mouth, Daily, # 90 capsule, 0 Refills, Maintenance, 06/14/20 11:15:00 EDT, EC Capsule Start Date: 06/14/20 Status: OrderedPen [place], 31 G x 5 mm BD Ultra [...]
--- OUTSIDE RECORDS SUMMARY | 2022-09-11 22:52 | XMS_ITS | Continuity of Care Document ---
:1960 Author Organization [facility] Address [address] [place] [address]- Care Team Providers Name Role Phone Tayler Rogers MD Primary Care Physician [phone] [place] [facility] [place] 05/31/22 - 06/02/[address] [address]- Encounter Diagnosis Syncope (Final) - 05/31/22 Discharge Disposition: A-D/C Home Attending Physician: Beth Gao MD Admitting Physician: Javan FREEDMAN, Juan Luis Avalos Referring Physician: Not on Staff, Referring MD [...] II opioid drug. Start Date: 02/26/21 Status: Orderedaspirin 81 mg oral delayed release tablet 81 mg, 1, tablet, By Mouth, Daily, # 90 tablet, Refills 0, Maintenance, 12/27/21 18:57:00 EST, Partial fill upon patient request if the prescription is for a schedule II opioid drug. Start Date: 12/27/21 Status: Orderedatorvastatin 80 mg oral tablet 1 tablet = 80 mg, By Mouth, Daily at bedtime, # 30 tablet, 3 Refills, Maintenance, 04/27/21 16:20:00EDT, Tablet, [facility], Partial fill upon patient request if the prescription is for a schedule II opioid drug., 158, cm, 03/02/21 16:5... Start Date: 04/27/21 Status: Orderedferrous sulfate 325 mg oral tablet 1 tablet = 325 mg, By Mouth, Daily, # 90 tablet, 0 Refills, Maintenance, 02/26/21 1:51:00 EDT, Tablet, Partial fill upon patient request if the prescription is for a schedule II opioid drug. Start Date: 02/26/21 Status: Orderedgabapentin 100 mg oral capsule 200 mg, Capsule, By Mouth, 06/02/22 9:00:00 EDT Start Date: 06/02/22 Stop Date: 06/02/22 Status: Completedgabapentin 100 mg oral capsule 200 mg, 2, capsule, By Mouth, 3 times a day, # 180 capsule, Refills 0, Tot. Refills 0, Maintenance, 03/03/21 11:06:00 EDT, Route to Pharmacy Electronically, [facility], Partial fill upon patient request if the prescription is for a sched... Start Date: 03/03/21 Status: OrderedhydrALAZINE 25 mg oral tablet Refills 0, Maintenance, 06/01/22 13:10:00 EDT, Partial fill upon patient request if the prescriptionis for a schedule II opioid drug. Start Date: 06/01/22 Status: Orderedisosorbide dinitrate 10 mg oral tablet 10 mg, 1, tablet, By Mouth, Daily at bedtime, # 60 tablet, Refills 0, Tot. Refills 0, Maintenance, 06/02/22 13:56:00 EDT, Route to Pharmacy Electronically, [facility], Partial fill upon patient request if the prescription is for a schedu... Start Date: 06/02/22 Status: Orderedlisinopril 5 mg oral tablet 5 mg, 1, tablet, By Mouth, Daily at bedtime, # 90 tablet, Refills 2, Tot. Refills 2, Maintenance, 12/30/21 13:15:00 EST, Route to Pharmacy Electronically, [facility], Partial fill upon patient request if the prescription is for a schedul... Start Date: 12/30/21 Status: OrderedLokelma 5 g oral powder for reconstitution 0 Refills, Maintenance, 06/01/22 13:11:00 EDT, Partial fill upon patient request if the prescriptionis for a schedule II opioid drug. Start Date: 06/01/22 Status: Orderedloperamide 2 mg oral tablet, chewable 1 tablet = 2 mg, Chew, 2 times a day, PRN for loose stool, # 20 tablet, 0 Refills, Maintenance, 12/27/21 18:58:00 EST, Chew Tablet, Partial fill upon patient request if the prescription is for a schedule II opioid drug. Start Date: 12/27/21 Status: OrderedLORazepam 0.5 mg oral tablet 1 [...] 02/26/21 1:54:00 EDT Start Date: 02/26/21 Status: Orderedmeloxicam 7.5 mg oral tablet 1 tablet = 7.5 mg, By Mouth, Daily, # 90 tablet, 0 Refills, Maintenance, 12/27/21 18:58:00 EST, Tablet, Partial fill upon patient request if the prescription is for a schedule II opioid drug. Start Date: 12/27/21 Status: OrderedNovoLOG 100 units/mL injectable solution 8 units if under 200, 10 units over 200 3 x per day, Subcutaneous Injection, 3 times a day before meals, 0 Refills, Maintenance, 06/01/22 2:19:00 EDT, Partial fill upon patient request if the prescription is for a schedule II opioid drug. Start Date: 06/01/22 Status: Orderedpantoprazole 40 mg oral delayed release tablet 1 tablet = 40 mg, By Mouth, Daily, # 90 tablet, 0 Refills, Maintenance, 02/26/21 1:52:00 EDT, EC Tablet Start Date: 02/26/21 Status: OrderedReglan 5 mg oral tablet 1 tablet = 5 mg, By Mouth, 3 times a day before meals and bedtime, # 120 tablet, 0 Refills, Maintenance, 03/03/21 11:06:00 EDT, Tablet, [facility], Partial fill upon patient request if the prescription is for a schedule II opioid drug.,... Start Date: 03/03/21 Status: Orderedtamsulosin 0.4 mg oral capsule 0.4 mg, 1, capsule, By Mouth, Daily, # 30 capsule, Refills 0, Maintenance, 02/26/21 1:54:00 EDT, Partial fill upon patient request if the prescription is for a schedule II opioid drug. Start Date: 02/26/21 Status: OrderedTradjenta 5 mg oral tablet 1 tablet = 5 mg, By Mouth, Daily, # 30 tablet, 0 Refills, Maintenance, 12/27/21 18:59:00 EST, Tablet, Partial fill upon patient request if the prescription is for a schedule II opioid drug. Start Date: 12/27/21 Status: OrderedtraZODone 50 mg oral tablet 25 mg, 0.5, tablet, By Mouth, Daily at bedtime, Can increase to 1 tablet after 3 days if needed, # 15 tablet, Refills 3, Maintenance, 12/27/21 19:00:00 EST, Partial fill upon patient request if the prescription is for a schedule II opioid drug. Start Date: 12/27/21 Status: OrderedTresiba 100 units/mL subcutaneous solution = 32 units, Subcutaneous Infusion, Daily, 0 Refills, Maintenance, 12/27/21 19:00:00 EST, Partial fill upon patient request if the prescription is for a schedule II opioid drug. Start Date: 12/27/21 Status: OrderedVitamin D3 1000 intl units oral [...] anterior fascicular Active block(Confirmed) Neurogenic bladder(Confirmed) Active Obese class I(Confirmed) Active OA (osteoarthritis)(Confirmed) Active Post traumatic stress disorder Active (PTSD)(Confirmed) QT prolongation(Confirmed) Active Syncope(Confirmed) Active Results Orders for Microbiology Reports Name Date Urine Culture (URINE CULTURE) 06/01/22 Microbiology Reports TEST:Urine Culture STATUS:Unauthenticated BODY SITE: SOURCE:URINE COLLECTED DATE/TIME:06/01/22 8:39 AMUrine Culture SPECIMEN DESCRIPTION : URINE SPECIAL REQUESTS : NONE CULTURE : >100,000 COL/ML KLEBSIELLA PNEUMONIAE This isolate was identified using Maldi-TOF system REPORT STATUS : PRELIMINARY REPORT Radiology Reports Exam Date Time Procedure Performing Provider Status 06/01/22 10:53 PM Abdomen AP Dane Roberto; Auth (Verified) Notes:(Abdomen AP) Reason For Exam: diarrhea, hypoactive bowel sounds;Pain RESULT: XR Abdomen AP XR Abdomen AP 1 view supine INDICATION/CLINICAL QUESTION: Reason: Pain; diarrhea, hypoactive bowel sounds; Clinical Question(s):Obstruction COMPARISON: 01/22/2017 FINDINGS: Normal bowel gas pattern. No evidence of obstruction. No gross pneumoperitoneum on this supine image. Bladder stimulator device in stable position. No acute bone findings. There is heavy vascular calcification in the femoral vessels bilaterally. IMPRESSION: No acute findings. No evidence for bowel obstruction. WSN: [id number] Ordering Physician: Celestino Krishna Dictated By: Trey Good MD Dictated Date/Time: 06/02/22 7:55 am Reviewed By: Trey Good MD Signed By: Trey Good MD Signed Date/Time: 06/02/22 7:55 am Transcribed By: LYN Transcribed Date/Time: 06/02/22 7:53 am Exam Date Time Procedure Performing Provider Status 05/31/22 11:52 PM Chest Portable Bishop Thompson; Auth (Verified) Notes:(Chest Portable) Reason For Exam: Shortness of BreathRESULT: Chest Portable Chest Portable Hx of Present Illness: Syncopal episodes x3- Hypotension; Reason: Shortness of Breath; Clinical Question(s): CHF COMPARISON: 04/25/2021 FINDINGS: LINES AND TUBES: Dual-lead left subclavian pacer/AICD wires are intact. LUNGS AND PLEURA: Low lung volumes with mild basilar atelectasis. Lungs are otherwise clear with no consolidation. No pleural effusion. No pneumothorax. HEART, MEDIASTINUM AND TUNG: Post median sternotomy. Heart is at the upper limits of normal for size. Normal upper mediastinal and hilar contour. BONES AND SOFT TISSUES: No acute abnormality. IMPRESSION: No acute abnormality. WSN: [id number] Ordering Physician: Ammy Connors Dictated By: Gilbert Cabral MD Dictated Date/Time: 05/31/22 11:56 p Reviewed By: Gilbert Cabral MD Signed By: Gilbert Cabral MD Signed Date/Time: 05/31/22 11:56 pm Transcribed By: LYN Transcribed Date/Time: 05/31/22 11:55 pm Vital Signs Most recent to oldest 1 2 3 4 [Reference Range]: Height 157.5 cm 157.5 cm 157.5 cm 157.5 cm (06/02/22 12:05 PM) (06/02/22 7:37 AM) (06/01/22 3:54 PM) (06/01/22 3:54 PM) Weight 78.1 kg (06/01/22 2:09 AM) Oxygen Saturation 95 % 95 % 100 % [94-100 %] (06/02/22 12:05 PM) (06/02/22 7:37 AM) (06/02/22 3:00 AM) Pulse Rate [55-90 bpm] 89 bpm 71 bpm 77 bpm (06/02/22 12:05 PM) (06/02/22 7:37 AM) (06/02/22 3:00 AM) Body Mass Index 31.48 [18.5-24.99] *>HHI* (06/01/22 2:09 AM) Blood Pressure 165/82 mm Hg 172/68 mm Hg 156/64 mm Hg [90-138/55-84 mm Hg] *H* *H* *H* (06/02/22 12:05 PM) (06/02/22 7:37 AM) (06/02/22 3:00 AM) Respiratory Rate [16-30 17 br/min 18 br/min 18 br/min br/min] (06/02/22 12:05 PM) (06/02/22 10:33 AM) (06/02/22 9:33 AM ) Temperature [96.8-100.4 98.2 DegF 98.2 DegF 98.0 DegF DegF] (06/02/22 12:05 PM) (06/02/22 7:37 AM) (06/02/22 3:00 AM) Mode of Delivery Room air Room air Room air (Oxygen) (06/02/22 12:05 PM) (06/02/22 7:37 AM) (06/02/22 3:00 AM) Blood pressure sites Arm, right Arm, right Arm, right (06/02/22 12:05 PM) (06/02/22 7:37 AM) (06/02/22 3:00 AM) Temperature Route Oral Oral Oral (06/02/22 12:05 PM) (06/02/22 7:37 AM) (06/02/22 3:00 AM) Dry Weight 78.1 kg (06/01/22 2:09 AM) Social History Social History Type Response Smoking Status Former smoker; Tobacco user in household: No entered on: 07/07/16 Sex
--- OUTSIDE RECORDS SUMMARY | 2022-09-11 22:52 | XMS_ITS | Continuity of Care Document ---
:1960 Author Organization [facility] Address [address] [place] [address]- Care Team Providers Name Role Phone Shaneka Burton DO Primary Care Physician Encounter [facility] Date(s): 05/28/20 - 06/27/[address] [address]- [facility] Allergies, Adverse Reactions, Alerts Substance Reaction Severity [...] 01/16/20 9:59:00 EST, Route to Pharmacy Electronically, [facility] #[id number], 158, cm, 01/15/20 20:17:00 EST, Height, 64, kg, 01/11/20 21:31:00 EST, Dry Weight Start Date: 01/16/20 Status: Orderedammonium lactate 12% topical cream See Instructions, Topically 2 times a day to feet, # 140 Gm, 0 Refills, Maintenance, 01/16/20 10:04:00 EST, Cream, [facility] #[id number], Topically 2 times a day to feet, 158, cm, 01/15/20 20:17:00 EST, Height, 64, kg, 01/11/20 21:31:00 EST, Dry... Start Date: 01/16/20 Status: Orderedaspirin 81 mg oral tablet 1 tablet = 81 mg, By Mouth, Daily, # 15 tablet, 1 Refills, Maintenance, 01/16/20 10:00:00 EST, Tablet, [facility] #[id number], 158, cm, 01/15/20 20:17:00 EST, Height, 64, kg, 01/11/20 21:31:00 EST, Dry Weight Start Date: 01/16/20 Stop Date: 03/16/20 Status: Orderedatorvastatin 80 mg oral tablet 1 tablet = 80 mg, By Mouth, Daily, # 15 tablet, 1 Refills, Maintenance, 01/16/20 10:01:00 EST, Tablet, [facility] #[id number], 158, cm, 01/15/20 20:17:00 EST, Height, 64, kg, 01/11/20 21:31:00 EST, Dry Weight Start Date: 01/16/20 Stop Date: 03/16/20 Status: OrderedEffexor XR 150 mg oral capsule, extended release 150 mg, 1, capsule, By Mouth, Daily, # 15 capsule, Refills 1, Tot. Refills 1, Maintenance, 01/16/20 10:04:00 EST, Route to Pharmacy Electronically, [facility] #[id number], 158, cm, 01/15/20 20:17:00 EST, Height, 64, kg, 01/11/20 21:31:00 EST, Dry... Start Date: 01/16/20 Status: Orderedgabapentin 600 mg oral tablet 1 tablet = 600 mg, By Mouth, 3 times a day, # 45 tablet, 1 Refills, Maintenance, 01/16/20 10:01:00 EST, Tablet, [facility] #[id number], 158, cm, 01/15/20 20:17:00 EST, Height, 64, kg, 01/11/20 21:31:00 EST, Dry Weight Start Date: 01/16/20 Status: OrderedLantus Solostar Pen 100 units/mL subcutaneous solution = 50 units, Subcutaneous Injection, Daily in AM, MUST MAKE AND KEEP APPT FOR FURTHER REFILLS OR CALLPCP, , E11.9, # 30 mL, 0 Refills, Maintenance, 05/28/20 14:29:00 EDT, Solution, [facility] #[id number], 158, cm, 01/15/20 20:17:00 ES... Start Date: [...] 1 Refills, Maintenance, 01/16/20 10:03:00 EST, Tablet, [facility] #[id number], 158, cm, 01/15/20 20:17:00 EST, Height, 64, kg, 01/11/20 21:31:00 EST, Dry Weight Start Date: 01/16/20 Status: OrderedNovoLOG FlexPen 100 units/mL injectable solution See Instructions, take 8-18 units of novolog 3 times a day with meals per sliding scale. No more than 54 units a day. E 11.9, # 30 mL, 1 Refills, Maintenance, 01/16/20 10:00:00 EST, [facility] #[id number], 100-149 8 UNITS; 150-199 10 UNITS; 200... Start Date: 01/16/20 Status: Orderedomeprazole 20 mg oral enteric coated capsule 1 capsule = 20 mg, By Mouth, Daily, # 90 capsule, 0 Refills, Maintenance, 06/14/20 11:15:00 EDT, EC Capsule Start Date: 06/14/20 Status: OrderedPen [place], 31 G x 5 mm BD Ultra [...]
--- OUTSIDE RECORDS SUMMARY | 2022-09-11 22:52 | XMS_ITS | Continuity of Care Document ---
:1960 Author Organization [facility] Address [address] [place] [id number]- Care Team Providers Name Role Phone Nadia Martinez DO Primary Care Physician Encounter [facility] [place] Date(s): 12/26/19 - 12/30/[address] [address]- [facility] Encounter Diagnosis GI bleed (Final) - 12/26/19 Abdominal pain (Final) - 12/26/19 Discharge Disposition: A-Transfer VNA/Home Health Attending Physician: Waqar Bell MD Admitting Physician: Gregorio Del Rio MD Referring Physician: Not on Staff, Referring MD Allergies, Adverse Reactions, Alerts Substance Reaction Severity Status tetracycline Anaphylaxis Active hives Immunizations Not Given Vaccine Date Status Refusal Reason pneumococcal 23-valent vaccine 12/28/19 Not Given P atient Refuses pneumococcal 23-valent vaccine 05/11/19 Not Given P atient Refuses Medications allopurinol 100 mg oral tablet 100 mg, By Mouth, Daily, # 30 tablet, Refills 0, Tot. Refills 0, Maintenance, 02/10/18 9:07:38, Route to Pharmacy Electronically, [id number], [facility] Start Date: 02/10/18 Status: OrderedamLODIPine 2.5 mg oral tablet 1 tablet = 2.5 mg, By Mouth, Daily, # 30 tablet, 0 Refills, Maintenance, 12/26/19 15:39:00 EST, Tablet Start Date: 12/26/19 Status: Orderedaspirin 81 mg oral tablet 1 tablet = 81 mg, By Mouth, Daily, # 30 tablet, 11 Refills, Maintenance, 03/03/19 15:27:08 EDT, Tablet Start Date: 03/03/19 Stop Date: 02/26/20 Status: OrderedAtivan 0.5 mg oral tablet 1 tablet = 0.5 mg, By Mouth, 3 times a day, PRN as needed for anxiety, 0 Refills, Maintenance, 07/14/17 14:06:08 Start Date: 07/14/17 Status: Orderedatorvastatin 80 mg oral tablet 1 tablet = 80 mg, By Mouth, Daily, # 30 tablet, 3 Refills, Maintenance, Tablet, Route to Pharmacy Electronically, [id number], [facility] Start Date: 03/03/19 Stop Date: 07/01/19 Status: Orderedgabapentin 600 mg oral tablet 1 tablet = 600 mg, By Mouth, 3 times a day, 0 Refills, Maintenance, 07/19/18 13:16:19 EDT Start Date: 07/19/18 Status: OrderedInterstim for bladder Interstim for bladder, Refills 0, Maintenance, 12/22/18 9:41:13 EST, Compound Start Date: 12/22/18 Status: OrderedLantus Inj = 10 units, Subcutaneous Infusion, Daily at bedtime, 0 Refills, Maintenance, 12/27/19 17:00:00 EST Start Date: 12/27/19 Status: OrderedLantus Solostar Pen 100 units/mL subcutaneous solution = 50 units, Subcutaneous Injection, Daily in AM, # 30 mL, 3 Refills, Maintenance, 03/03/19 15:29:32 EDT, Solution Start Date: 03/03/19 Stop Date: 07/01/19 Status: Orderedloperamide 2 mg oral tablet 1 tablet = 2 mg, By Mouth, 4 times a day, PRN as needed for loose stool, not to exceed 16 mg/day, # 24 tablet, 0 Refills, Maintenance, 04/06/18 0:49:53 EDT, Tablet Start Date: 04/06/18 Status: Orderedmetoclopramide 10 mg oral tablet 1 tablet = 10 mg, By Mouth, 3 times a day before meals, PRN Dyspepsia, for 30 days, # 60 tablet, 0 Refills, Acute 01/27/20 11:18:00 EST, 12/28/19 11:18:00 EST, Tablet, [id number], 158,cm, 12/28/19 8:36:00 EST, Height, 61, kg, ... Start Date: 12/28/19 Stop Date: 01/27/20 Status: Orderedmetoprolol 25 mg oral tablet 25 mg, 1, tablet, By Mouth, 2 times a day, # 180 tablet, Refills 0, Maintenance, 02/27/19 19:31:03 EDT Start Date: 02/27/19 Status: OrderedNovoLOG FlexPen 100 units/mL injectable solution See Instructions, take 8-18 units of novolog 3 times a day with meals per sliding scale. No more than 54 units a day. E 11.9, # 30 mL, 3 Refills, Maintenance, 03/03/19 15:29:52 EDT, 100-149 8 UNITS; 150-199 10 UNITS; 200-249 12 UNITS; 250-299 14 U... Start Date: 03/03/19 Status: OrderedPen [place], 31 G x 5 mm BD Ultra Fine III See Instructions, # 100 each, Refills 5, Tot. Refills 5, Maintenance, Check Blood sugar three times a day before meals and at bedtime, 03/03/19 15:36:24 EDT, Compound Start Date: 03/03/19 Stop Date: 08/30/19 Status: OrderedProtonix 40 mg oral delayed release tablet = 40 mg, By Mouth, Daily, 0 Refills, Maintenance, 12/28/19 11:15:00 EST, EC Tablet Start Date: 12/28/19 Status: OrderedVenlafaxine = 75 mg, By Mouth, Daily, 0 Refills, Maintenance, 07/19/18 13:16:30 EDT Start Date: 07/19/18 Status: Orderedzolpidem 5 mg oral tablet 1 tablet = 5 mg, By Mouth, Daily at bedtime, PRN as needed for insomnia, 0 Refills, Maintenance, 02/27/19 19:31:49 EDT, Tablet Start Date: 02/27/19 Status: Ordered Problem List Condition Effective Dates Status Health Status Informant NSTEMI (non-ST elevated myocardial Active infarction)(Confirmed) Anxiety and depression(Confirmed) Active CVA (cerebral vascular 2011 Active accident)(Confirmed) Chronic diarrhea(Confirmed) Active CKD (chronic kidney Active disease)(Confirmed) CAD (coronary artery 02/07/18 Active disease)(Confirmed) Diabetes mellitus, insulin(Confirmed) 12/28/11 Active Diffuse myofascial pain Active syndrome(Confirmed) Ex-smoker(Confirmed) Active Fibromyalgia(Confirmed) Active Gastroparesis/gastritis(Confirmed) Active HLD (hyperlipidemia)(Confirmed) Active Hypertriglyceridemia(Confirmed) Active Incomplete right bundle branch Active block(Confirmed) Left anterior fascicular Active block(Confirmed) Neurogenic bladder(Confirmed) Active OA - Osteoarthritis(Confirmed) Active Post traumatic stress disorder Active (PTSD)(Confirmed) Ulcer of Heel and Midfoot(Confirmed) 12/28/11 Active Procedures Procedure Date Related Diagnosis Body Site Status Esophagogastroduodenoscopy and biopsy 12/28/19 Completed Results Radiology Reports Exam Date Time Procedure Performing Provider Status 12/26/19 7:51 PM Chest 2 Views [address] and Lat [address] [facility]; [facility] (Verified) Notes:(Chest 2 Views Frontal and Lat) Reason For Exam: Abdominal PainRESULT: Chest 2 Views Frontal and Lat Chest 2 Views Frontal and Lat Reason: Abdominal Pain; Clinical Question(s): Pulmonary Edema; Hx of Present Illness: Pt here with complaints of burning epigastric pain. Pt is also vomiting blood.; Other Objective Findings: Pt A Ox4.Resp even and unlabored. Pt has epigastric burning. Pt vomiting blood. COMPARISON: 06/25/2019. FINDINGS: LINES AND TUBES: Dual-lead left subclavian pacer/AICD wires are intact. LUNGS AND PLEURA: Clear lungs. Normal pulmonary vascularity. No pleural effusion. No pneumothorax. HEART, MEDIASTINUM AND TUNG: Status post median sternotomy. Heart is normal in size. Normal mediastinal and hilar contour. BONES AND SOFT TISSUES: No acute abnormality. IMPRESSION: No acute cardiopulmonary pathology.. WSN: [id number] Dictated By: Gilbert Cabral MD Dictated Date/Time: 12/26/19 7:57 pm Reviewed By: Gilbert Cabral MD Signed By: Gilbert Cabral MD Signed Date/Time: 12/26/19 7:57 pm Transcribed By: LYN Transcribed Date/Time: 12/26/19 7:56 pm Vital Signs Most recent to oldest 1 2 3 [Reference Range]: Height 158 cm 158 cm 158 cm (12/30/19 12:44 AM) (12/29/19 8:26 PM) (12/29/19 3:19 PM) Weight 61 kg 61 kg (12/28/19 8:36 AM) (12/27/19 4:53 PM) Oxygen Saturation [94-100 %] 95 % 93 % 92 % (12/30/19 7:34 AM) *L* *L* (12/30/19 12:44 AM) (12/29/19 8:26 P M) Pulse Rate [55-90 bpm] 86 bpm 86 bpm 80 bpm (12/30/19 8:46 AM) (12/30/19 7:34 AM) (12/30/19 12:44 AM) Body Mass Index [18.5-24.99] 24.44 24.44 (12/28/19 8:36 AM) (12/27/19 4:53 PM) Blood Pressure [90-138/55-84 132/73 mm Hg 132/73 mm Hg 139 /74 mm Hg mm Hg] (12/30/19 8:46 AM) (12/30/19 7:34 AM) *H* (12/30/19 12:44 AM ) Respiratory Rate [16-30 18 br/min 18 br/min 16 br/mi n br/min] (12/30/19 9:46 AM) (12/30/19 8:46 AM) (12/30/19 7:34 A M) Temperature [96.8-100.4 DegF] 98.7 DegF 98.1 DegF 98 .4 DegF (12/30/19 7:34 AM) (12/30/19 12:44 AM) (12/29/19 8:26 PM) Liters per Minute 0 L/min 0 L/min (12/27/19 12:04 PM) (12/27/19 9:17 AM) Mode of Delivery (Oxygen) Room air Room air Room a ir (12/30/19 7:34 AM) (12/30/19 12:44 AM) (12/29/19 8:26 PM) Blood pressure sites Arm, right Arm, right Arm, right (12/30/19 7:34 AM) (12/29/19 3:19 PM) (12/29/19 11:31 AM) Temperature Route Oral Oral Oral (12/30/19 7:34 AM) (12/30/19 12:44 AM) (12/29/19 8:26 PM) Dry Weight 61 kg (12/27/19 4:53 PM) Sensory deficits None (12/27/19 4:53 PM) Mobility assistance Partial assistance (12/27/19 4:53 PM) Social History Social History Type Response Smoking Status Former smoker; Tobacco user in household: No entered on: 07/07/16 Sex
--- OUTSIDE RECORDS SUMMARY | 2022-09-11 22:52 | XMS_ITS | Continuity of Care Document ---
:1960 Author Organization [facility] Address [address] [place] [id number]- Care Team Providers Name Role Phone Tayler Rogers MD Primary Care Physician Encounter [facility] [place] Date(s): 02/26/22 - 06/13/22 [facility] [address] [address]- Attending Physician: Reymundo Stearns MD Admitting Physician: Reymundo Stearns MD Referring Physician: Tayler Rogers MD Allergies, Adverse Reactions, Alerts Substance Reaction [...] tablet, 3 Refills, Maintenance, 04/27/21 16:20:00EDT, Tablet, [facility], Partial fill upon patient [...] Orderedgabapentin 100 mg oral capsule 200 mg, 2, capsule, By Mouth, 3 times a day, # 180 capsule, Refills 0, Tot. Refills 0, Maintenance, 03/03/21 11:06:00 EDT, Route to Pharmacy Electronically, [facility], Partial fill upon patient [...] 06/02/22 13:56:00 EDT, Route to Pharmacy Electronically, [facility], Partial fill upon patient request if the prescription is for a schedu... Start Date: 06/02/22 Status: Orderedlisinopril 5 mg oral tablet 5 mg, 1, tablet, By Mouth, Daily at bedtime, # 90 tablet, Refills 2, Tot. Refills 2, Maintenance, 12/30/21 13:15:00 EST, Route to Pharmacy Electronically, [facility], Partial fill upon patient [...] 0 Refills, Maintenance, 03/03/21 11:06:00 EDT, Tablet, [facility], Partial fill upon patient request if [...] Active (PTSD)(Confirmed) QT prolongation(Confirmed) Active Syncope(Confirmed) Active Social History Social History Type Response Smoking Status Former smoker; Tobacco user in household: No entered on: 07/07/16 Sex
--- OUTSIDE RECORDS SUMMARY | 2022-09-11 22:52 | XMS_ITS | Continuity of Care Document ---
:1960 Author Organization [facility] Address [address] [place] [address]- Care Team Providers Name Role Phone Josephine Fred AMADORa Primary Care Physician [place] [facility] [place]28[place] 06[place]20 [facility] [address] [place] [address]- [facility] Allergies, Adverse Reactions, Alerts Substance Reaction [...] 01/16/20 9:59:00 EST, Route to Pharmacy Electronically, [facility] #[id number], 158, cm, 01/15/20 20:17:00 EST, Height, 64, kg, 01/11/20 21:31:00 EST, Dry Weight Start Date: 01/16/20 Status: Orderedammonium lactate 12% topical cream See Instructions, Topically 2 times a day to feet, # 140 Gm, 0 Refills, Maintenance, 01/16/20 10:04:00 EST, Cream, [facility][id number], Topically 2 times a day to feet, 158, cm, 01/15/20 20:17:00 EST, Height, 64, kg, 01/11/20 21:31:00 EST, Dry... Start Date: 01/16/20 Status: Orderedaspirin 81 mg oral tablet 1 tablet = 81 mg, By Mouth, Daily, # 15 tablet, 1 Refills, Maintenance, 01/16/20 10:00:00 EST, Tablet, [facility] #[id number], 158, cm, 01/15/20 20:17:00 EST, Height, 64, kg, 01/11/20 21:31:00 EST, Dry Weight Start Date: 01/16/20 Stop Date: 03/16/20 Status: Orderedatorvastatin 80 mg oral tablet 1 tablet = 80 mg, By Mouth, Daily, # 15 tablet, 1 Refills, Maintenance, 01/16/20 10:01:00 EST, Tablet, [facility] #[id number], 158, cm, 01/15/20 20:17:00 EST, Height, 64, kg, 01/11/20 21:31:00 EST, Dry Weight Start Date: 01/16/20 Stop Date: 03/16/20 Status: OrderedEffexor XR 150 mg oral capsule, extended release 150 mg, 1, capsule, By Mouth, Daily, # 15 capsule, Refills 1, Tot. Refills 1, Maintenance, 01/16/20 10:04:00 EST, Route to Pharmacy Electronically, [facility] #[id number], 158, cm, 01/15/20 20:17:00 EST, Height, 64, kg, 01/11/20 21:31:00 EST, Dry... Start Date: 01/16/20 Status: Orderedgabapentin 600 mg oral tablet 1 tablet = 600 mg, By Mouth, 3 times a day, # 45 tablet, 1 Refills, Maintenance, 01/16/20 10:01:00 EST, Tablet, [facility] #[id number], 158, cm, 01/15/20 20:17:00 EST, Height, 64, kg, 01/11/20 21:31:00 EST, Dry Weight Start Date: 01/16/20 Status: OrderedLantus Solostar Pen 100 units/mL subcutaneous solution = 50 units, Subcutaneous Injection, Daily in AM, MUST MAKE AND KEEP APPT FOR FURTHER REFILLS OR CALLPCP, , E11.9, # 30 mL, 0 Refills, Maintenance, 05/28/20 14:29:00 EDT, Solution, [facility] #[id number], 158, cm, 01/15/20 20:17:00 ES... Start Date: [...] 1 Refills, Maintenance, 01/16/20 10:03:00 EST, Tablet, [facility] #[id number], 158, cm, 01/15/20 20:17:00 EST, Height, 64, kg, 01/11/20 21:31:00 EST, Dry Weight Start Date: 01/16/20 Status: OrderedNovoLOG FlexPen 100 units/mL injectable solution See Instructions, take 8-18 units of novolog 3 times a day with meals per sliding scale. No more than 54 units a day. E 11.9, # 30 mL, 1 Refills, Maintenance, 01/16/20 10:00:00 EST, [facility] #[id number], 100-149 8 UNITS; 150-199 10 UNITS; 200... Start Date: 01/16/20 Status: Orderedomeprazole 20 mg oral enteric coated capsule 1 capsule = 20 mg, By Mouth, Daily, # 90 capsule, 0 Refills, Maintenance, 06/14/20 11:15:00 EDT, EC Capsule Start Date: 06/14/20 Status: OrderedPen [place], 31 G x 5 mm BD Ultra [...]
--- OUTSIDE RECORDS SUMMARY | 2022-09-11 22:52 | XMS_ITS | Continuity of Care Document ---
:1960 Author Organization [facility] Address [address] [place] [phone]- Care Team Providers Name Role Phone Shaneka Burton DO Primary Care Physician [place] [facility] [place]08/20 - 11/07/[address] [address] Attending Physician: AdmSanti gatica Admitting Physician: AdmSanti gatica Referring Physician: Admtr, Woody8 Allergies, Adverse Reactions, Alerts Substance Reaction Severity [...] 01/16/20 9:59:00 EST, Route to Pharmacy Electronically, [facility] #[id number], 158, cm, 01/15/20 20:17:00 EST, Height, 64, kg, 01/11/20 21:31:00 EST, Dry Weight Start Date: 01/16/20 Status: Orderedammonium lactate 12% topical cream See Instructions, Topically 2 times a day to feet, # 140 Gm, 0 Refills, Maintenance, 01/16/20 10:04:00 EST, Cream, [facility] #[id number], Topically 2 times a day to feet, 158, cm, 01/15/20 20:17:00 EST, Height, 64, kg, 01/11/20 21:31:00 EST, Dry... Start Date: 01/16/20 Status: Orderedaspirin 81 mg oral tablet 1 tablet = 81 mg, By Mouth, Daily, # 15 tablet, 1 Refills, Maintenance, 01/16/20 10:00:00 EST, Tablet, [facility] #[id number], 158, cm, 01/15/20 20:17:00 EST, Height, 64, kg, 01/11/20 21:31:00 EST, Dry Weight Start Date: 01/16/20 Stop Date: 03/16/20 Status: Orderedatorvastatin 80 mg oral tablet 1 tablet = 80 mg, By Mouth, Daily, # 15 tablet, 1 Refills, Maintenance, 01/16/20 10:01:00 EST, Tablet, [facility] #[id number], 158, cm, 01/15/20 20:17:00 EST, Height, 64, kg, 01/11/20 21:31:00 EST, Dry Weight Start Date: 01/16/20 Stop Date: 03/16/20 Status: OrderedEffexor XR 150 mg oral capsule, extended release 150 mg, 1, capsule, By Mouth, Daily, # 15 capsule, Refills 1, Tot. Refills 1, Maintenance, 01/16/20 10:04:00 EST, Route to Pharmacy Electronically, [facility] #[id number], 158, cm, 01/15/20 20:17:00 EST, Height, 64, kg, 01/11/20 21:31:00 EST, Dry... Start Date: 01/16/20 Status: Orderedgabapentin 600 mg oral tablet 1 tablet = 600 mg, By Mouth, 3 times a day, # 45 tablet, 1 Refills, Maintenance, 01/16/20 10:01:00 EST, Tablet, [facility] #[id number], 158, cm, 01/15/20 20:17:00 EST, Height, 64, kg, 01/11/20 21:31:00 EST, Dry Weight Start Date: 01/16/20 Status: OrderedLantus Solostar Pen 100 units/mL subcutaneous solution = 50 units, Subcutaneous Injection, Daily in AM, MUST MAKE AND KEEP APPT FOR FURTHER REFILLS [facility], , E11.9, # 30 mL, 0 Refills, Maintenance, 05/28/20 14:29:00 EDT, Solution, [facility] #[id number], 158, cm, 01/15/20 20:17:00 ES... Start Date: [...] 1 Refills, Maintenance, 01/16/20 10:03:00 EST, Tablet, [facility] #[id number], 158, cm, 01/15/20 20:17:00 EST, Height, 64, kg, 01/11/20 21:31:00 EST, Dry Weight Start Date: 01/16/20 Status: OrderedNovoLOG FlexPen 100 units/mL injectable solution See Instructions, take 8-18 units of novolog 3 times a day with meals per sliding scale. No more than 54 units a day. E 11.9, # 30 mL, 1 Refills, Maintenance, 01/16/20 10:00:00 EST, [facility] #[id number], 100-149 8 UNITS; 150-199 10 UNITS; 200... Start Date: 01/16/20 Status: Orderedomeprazole 20 mg oral enteric coated capsule 1 capsule = 20 mg, By Mouth, Daily, # 90 capsule, 0 Refills, Maintenance, 06/14/20 11:15:00 EDT, EC Capsule Start Date: 06/14/20 Status: OrderedPen Left Hand, 31 G x 5 mm BD Ultra Fine III See Instructions, # 100 each, Refills 5, Tot. Refills 5, Maintenance, Check Blood sugar three times a day before meals and at bedtime, 03/03/19 15:36:24 EDT, Compound Start Date: 03/03/19 Stop Date: 10/9/19 Status: Ordered Problem List Condition Effective Dates [...]
--- OUTSIDE RECORDS SUMMARY | 2022-09-11 22:52 | XMS_ITS | Continuity of Care Document ---
:1960 Author Organization [facility] Address [address] [place] [id number]- Care Team Providers Name Role Phone Shaneka Burton DO Primary Care Physician Encounter [facility] [place] Date(s): 12/12/20 - 12/16/[address] [address]- Encounter Diagnosis Abdominal pain (Final) - 12/12/20 Discharge Disposition: A-D/C Home Attending Physician: Saba Owens DO Admitting Physician: Homer Ho MD Referring Physician: Not on Staff, Referring [...] tablet, Refills 0, Tot. Refills 0, Maintenance, 12/16/20 11:27:00 EST, Route to Pharmacy Electronically, [facility] #[id number], Partial fill upon patient request if the prescription is for a schedule II o... Start Date: 12/16/20 Status: OrderedamLODIPine 10 mg oral tablet 10 mg, Tablet, By Mouth, 12/16/20 9:00:00 EST Start Date: 12/16/20 Stop Date: 12/16/20 Status: CompletedamLODIPine 5 mg oral tablet 5 mg, 1, tablet, By Mouth, Daily, # 15 tablet, Refills 1, Tot. Refills 1, Maintenance, 01/16/20 9:59:00 EST, Route to Pharmacy Electronically, [facility] #[id number], 158, cm, 01/15/20 20:17:00 EST, Height, 64, kg, 01/11/20 21:31:00 EST, Dry Weight Start Date: 01/16/20 Status: Orderedammonium lactate 12% topical cream See Instructions, Topically 2 times a day to feet, # 140 Gm, 0 Refills, Maintenance, 01/16/20 10:04:00 EST, Cream, [facility] #[id number], Topically 2 times a day to feet, 158, cm, 01/15/20 20:17:00 EST, Height, 64, kg, 01/11/20 21:31:00 EST, Dry... Start Date: 01/16/20 Status: Orderedaspirin 81 mg oral tablet 1 tablet = 81 mg, By Mouth, Daily, # 15 tablet, 1 Refills, Maintenance, 01/16/20 10:00:00 EST, Tablet, [facility] #[id number], 158, cm, 01/15/20 20:17:00 EST, Height, 64, kg, 01/11/20 21:31:00 EST, Dry Weight Start Date: 01/16/20 Stop Date: 03/16/20 Status: Orderedatorvastatin 80 mg oral tablet 1 tablet = 80 mg, By Mouth, Daily, # 15 tablet, 1 Refills, Maintenance, 01/16/20 10:01:00 EST, Tablet, [facility] #[id number], 158, cm, 01/15/20 20:17:00 EST, Height, 64, kg, 01/11/20 21:31:00 EST, Dry Weight Start Date: 01/16/20 Stop Date: 03/16/20 Status: OrderedCipro 250 mg oral tablet 1 capsule, By Mouth, Every 24 hours, for 2 days, # 2 capsule, 0 Refills, Acute 12/18/20 11:28:00 EST, 12/16/20 11:28:00 EST, Tablet, [facility] #[id number], Partial fill upon patient request if the prescription is for a schedule II opioid drug.,... Start Date: 12/16/20 Stop Date: 12/18/20 Status: OrderedDilaudid Inj 0.5 mg, Injection, IV Push Slowly, Every 4 hours, PRN for Pain , Severe, Routine, 12/13/20 2:50:00 EST Start Date: 12/13/20 Stop Date: 12/20/20 Status: OrderedEffexor XR 150 mg oral capsule, extended release 150 mg, 1, capsule, By Mouth, Daily, # 15 capsule, Refills 1, Tot. Refills 1, Maintenance, 01/16/20 10:04:00 EST, Route to Pharmacy Electronically, [facility] #[id number], 158, cm, 01/15/20 20:17:00 EST, Height, 64, kg, 01/11/20 21:31:00 EST, Dry... Start Date: 01/16/20 Status: Orderedfamotidine 20 mg oral tablet 20 mg, 1, tablet, By Mouth, Daily, # 30 tablet, Refills 0, Tot. Refills 0, Maintenance, 12/16/20 11:27:00 EST, Route to Pharmacy Electronically, [facility] #[id number], Partial fill upon patient request if the prescription is for a schedule II op... Start Date: 12/16/20 Status: Orderedgabapentin 600 mg oral tablet 1 tablet = 600 mg, By Mouth, 3 times a day, # 45 tablet, 1 Refills, Maintenance, 01/16/20 10:01:00 EST, Tablet, [facility] #[id number], 158, cm, 01/15/20 20:17:00 EST, Height, 64, kg, 01/11/20 21:31:00 EST, Dry Weight Start Date: 01/16/20 Status: OrderedLORazepam 0.5 mg oral tablet 0.5 tablet = 0.25 mg, By Mouth, 2 times a day, PRN as needed for anxiety, 0 Refills, Maintenance, 06/14/20 11:15:00 EDT, Tablet Start Date: 06/14/20 Status: Orderedmetoclopramide 5 mg oral tablet 1 tablet = 5 mg, By Mouth, 4 times a day, # 60 tablet, 1 Refills, Maintenance, 01/16/20 10:03:00 EST, Tablet, [facility] #[id number], 158, cm, 01/15/20 20:17:00 EST, Height, 64, kg, 01/11/20 21:31:00 EST, Dry Weight Start Date: 01/16/20 Status: Orderedmetoprolol 50 mg oral tablet, extended release 50 mg, 1, tablet, By Mouth, Daily, # 30 tablet, Refills 0, Tot. Refills 0, Maintenance, 12/16/20 11:26:00 EST, Route to Pharmacy Electronically, [facility] #[id number], Partial fill upon patient request if the prescription is for a schedule II op... Start Date: 12/16/20 Status: Orderedmetoprolol 50 mg oral tablet, extended release 50 mg, XL Tablet, By Mouth, 12/16/20 9:00:00 EST Start Date: 12/16/20 Stop Date: 12/16/20 Status: CompletedNovoLOG FlexPen 100 units/mL injectable solution See Instructions, take 8-18 units of novolog 3 times a day with meals per sliding scale. No more than 54 units a day. E 11.9, # 30 mL, 1 Refills, Maintenance, 01/16/20 10:00:00 EST, [facility] #[id number], 100-149 8 UNITS; 150-199 10 UNITS; 200... Start Date: 01/16/20 Status: Orderedomeprazole 20 mg oral enteric coated capsule 1 capsule = 20 mg, By Mouth, Daily, # 90 capsule, 0 Refills, Maintenance, 06/14/20 11:15:00 EDT, EC Capsule Start Date: 06/14/20 Status: OrderedoxyCODONE 5 mg oral capsule 1 capsule = 5 mg, By Mouth, Every 6 hours, PRN as needed for pain, for 5 days, # 20 capsule, 0 Refills, Acute 12/21/20 11:27:00 EST, 12/16/20 11:27:00 EST, Capsule, [facility] #[id number], Partialfill upon patient request if the prescription is... Start Date: 12/16/20 Stop Date: 12/21/20 Status: OrderedPen [place], 31 G x 5 mm BD Ultra Fine III See Instructions, # 100 each, Refills 5, Tot. Refills 5, Maintenance, Check Blood sugar three times a day before meals and at bedtime, 03/03/19 15:36:24 EDT, Compound Start Date: 03/03/19 Stop Date: 08/30/19 Status: Orderedtamsulosin 0.4 mg oral capsule 0.4 mg, 1, capsule, By Mouth, Daily at bedtime, # 30 capsule, Refills 0, Tot. Refills 0, Maintenance, 12/16/20 11:26:00 EST, Route to Pharmacy Electronically, [facility] #[id number], Partial fill upon patient request if the prescription is for a... Start Date: 12/16/20 Status: OrderedZofran 4 mg oral tablet 1 tablet = 4 mg, By Mouth, Every 8 hours, PRN Nausea, # 15 tablet, 0 Refills, Maintenance, 12/16/20 11:27:00 EST, Tablet, [facility] #[id number], Partial fill upon patient request if the prescription is for a schedule II opioid drug., 158, cm, 01... Start Date: 12/16/20 Stop Date: 12/21/20 Status: Ordered Problem List Condition Effective Dates [...] Active Post traumatic stress disorder Active (PTSD)(Confirmed) Results Orders for Microbiology Reports Name Date Urine Culture (URINE CULTURE) 12/12/20 Microbiology Reports TEST:Urine Culture STATUS:Auth (Verified) BODY SITE: SOURCE:URINE COLLECTED DATE/TIME:12/12/20 11:00 PMUrine Culture SPECIMEN DESCRIPTION : URINE SPECIAL REQUESTS : NONE CULTURE : >100,000 COL/ML KLEBSIELLA PNEUMONIAE REPORT STATUS : FINAL 12/15/2020 ORGANISM >100,000 COL/ML KLEBSIELLA PNEUMONIAE METHOD MIN. INHIB. CONC. (MCG/ML) AMPICILLIN RESISTANT AMPICILLIN/SULBACTAM SUSCEPTIBLE AMOXICILLIN/CLAVULAN SUSCEPTIBLE CEFAZOLIN SUSCEPTIBLE CEFEPIME SUSCEPTIBLE CEFTRIAXONE SUSCEPTIBLE CIPROFLOXACIN SUSCEPTIBLE ERTAPENEM SUSCEPTIBLE GENTAMICIN SUSCEPTIBLE LEVOFLOXACIN SUSCEPTIBLE MEROPENEM SUSCEPTIBLE NITROFURANTOIN INTERMEDIATE PIPERACILLIN/TAZOBAC SUSCEPTIBLE TRIMETH/SULFAMETHOX SUSCEPTIBLE TETRACYCLINE SUSCEPTIBLERadiology Reports Exam Date Time Procedure Performing Provider Status 12/12/20 6:39 PM Chest Portable Zainab Rodriguez; Barney (Verified ) Notes:(Chest Portable) Reason For Exam: Shortness of BreathRESULT: Chest Portable Chest Portable Hx of Present Illness: Pt c o generalize abd pain and upper back pain; Reason: Shortness of Breath; Clinical Question(s): CHF COMPARISON: 06/13/2020 FINDINGS: LINES AND TUBES: Dual-lead left subclavian pacer/AICD wires are intact. LUNGS AND PLEURA: Clear lungs. Normal pulmonary vascularity. No pleural effusion. No pneumothorax. HEART, MEDIASTINUM AND TUNG: Post median sternotomy. Heart is at the upper limits of normal for size. Normal upper mediastinal and hilar contour. BONES AND SOFT TISSUES: No acute abnormality. IMPRESSION: No acute abnormality. WSN: [id number] Ordering Physician: Conrad Duval Dictated By: Gilbert Cabral MD Dictated Date/Time: 12/12/20 6:52 pm Reviewed By: Gilbert Cabral MD Signed By: Gilbert Cabral MD Signed Date/Time: 12/12/20 6:52 pm Transcribed By: LYN Transcribed Date/Time: 12/12/20 6:51 pm Vital Signs Most recent to oldest 1 2 3 [Reference Range]: Height 158 cm 158 cm 158 cm (12/16/20 7:43 AM) (12/16/20 4:46 AM) (12/16/20 12: 29 AM) Weight 77.6 kg (12/13/20 5:58 AM) Oxygen Saturation [94-100 %] 100 % 95 % 99 % (12/16/20 7:43 AM) (12/16/20 4:46 AM) (12/16/20 12: 29 AM) Pulse Rate [55-90 bpm] 69 bpm 69 bpm 75 bpm (12/16/20 9:04 AM) (12/16/20 7:43 AM) (12/16/20 4:4 6 AM) Body Mass Index [18.5-24.99] 31.08 *>HHI* (12/13/20 5:58 AM) Blood Pressure [90-138/55-84 136/62 mm Hg 136/62 mm Hg 136 /62 mm Hg mm Hg] (12/16/20 9:04 AM) (12/16/20 9:03 AM) (12/16/20 7:4 3 AM) Respiratory Rate [16-30 16 br/min 16 br/min 16 br/mi n br/min] (12/16/20 1:13 PM) (12/16/20 9:10 AM) (12/16/20 9:0 0 AM) Temperature [96.8-100.4 DegF] 97.8 DegF 98.1 DegF 97 .7 DegF (12/16/20 7:43 AM) (12/16/20 4:46 AM) (12/16/20 12: 29 AM) Liters per Minute 2 L/min 2 L/min 2 L/min (12/13/20 3:38 AM) (12/13/20 1:34 AM) (12/13/20 12: 41 AM) Mode of Delivery (Oxygen) Room air Room air Room a ir (12/16/20 7:43 AM) (12/16/20 4:46 AM) (12/16/20 12: 29 AM) Blood pressure sites Arm, right Arm, right Arm, right (12/16/20 7:43 AM) (12/16/20 4:46 AM) (12/16/20 12: 29 AM) Temperature Route Oral Oral Oral (12/16/20 7:43 AM) (12/16/20 4:46 AM) (12/16/20 12: 29 AM) Dry Weight 77.6 kg (12/13/20 5:58 AM) Social History Social History Type Response Smoking Status Former smoker; Tobacco user in household: No entered on: 07/07/16 Sex Female
--- OUTSIDE RECORDS SUMMARY | 2022-09-11 22:52 | XMS_ITS | Continuity of Care Document ---
:1960 Author Organization [facility] Address [address] [place] [address]- Care Team Providers Name Role Phone Shaneka Burton DO Primary Care Physician [place] [facility] [place]21 [facility] [address], [place] [address] Allergies, Adverse Reactions, Alerts Substance Reaction Severity [...]
--- OUTSIDE RECORDS SUMMARY | 2022-09-11 22:52 | XMS_ITS | Continuity of Care Document ---
:1960 Author Organization [facility] Address [address] [place] [id number]- Care Team Providers Name Role Phone Josephine Shaneka AMADOR Primary Care Physician [place] [facility] [place] 12/27/21 - 12/30/[address] [address] Discharge Disposition: A-D/C Home Attending Physician: Tera Verdin MD Admitting Physician: Eric Baker MD Referring Physician: Not on Staff, Referring [...] 02/26/21 Status: OrderedamLODIPine 5 mg oral tablet 5 mg, Tablet, By Mouth, 12/30/21 9:00:00 EST Start Date: 12/30/21 Stop Date: 12/30/21 Status: CompletedamLODIPine 5 mg oral tablet 1 tablet = [...] tablet, 3 Refills, Maintenance, 04/27/21 16:20:00EDT, Tablet, [facility], Partial fill upon patient [...] oral capsule 200 mg, Capsule, By Mouth, 12/30/21 15:00:00 EST Start Date: 12/30/21 Stop Date: 12/30/21 Status: Completedgabapentin 100 mg oral capsule 200 mg, 2, capsule, By Mouth, 3 times a day, # 180 capsule, Refills 0, Tot. Refills 0, Maintenance, 03/03/21 11:06:00 EDT, Route to Pharmacy Electronically, [facility], Partial fill upon patient request if the prescription is for a sched... Start Date: 03/03/21 Status: Orderedlisinopril 5 mg oral tablet 5 mg, 1, tablet, By Mouth, Daily, # 90 tablet, Refills 2, Tot. Refills 2, Maintenance, 12/30/21 13:15:00 EST, Route to Pharmacy Electronically, [facility], Partial fill upon patient request if the prescription is for a schedule II opioid... Start Date: 12/30/21 Status: Orderedloperamide 2 mg oral tablet, chewable [...] II opioid drug. Start Date: 12/27/21 Status: Orderedmetoprolol 50 mg oral tablet, extended release 50 mg, XL Tablet, By Mouth, 12/30/21 9:00:00 EST Start Date: 12/30/21 Stop Date: 12/30/21 Status: CompletedMetoprolol Succinate ER 50 mg oral tablet, extended [...] 0 Refills, Maintenance, 03/03/21 11:06:00 EDT, Tablet, [facility], Partial fill upon patient request [...] stress disorder Active (PTSD)(Confirmed) QT prolongation(Confirmed) Active Vital Signs Most recent to oldest [Reference 1 2 3 Range]: Height 158 cm 158 cm 158 cm (12/30/21 1:34 PM) (12/30/21 7:27 AM) (12/30/21 2:48 A M) Weight 81.0 kg 81.6 kg 81.6 kg (12/29/21 2:18 AM) (12/27/21 6:20 PM) (12/27/21 6:13 P M) Oxygen Saturation [94-100 %] 98 % 97 % 98 % (12/30/21 1:34 PM) (12/30/21 7:27 AM) (12/30/21 2:48 A M) Pulse Rate [55-90 bpm] 70 bpm 66 bpm 66 bpm (12/30/21 1:34 PM) (12/30/21 8:52 AM) (12/30/21 7:27 A M) Body Mass Index [18.5-24.99] 32.69 *>HHI* (12/27/21 6:20 PM) Blood Pressure [90-138/55-84 mm 108/51 mm Hg 161/69 mm Hg 161/69 mm Hg Hg] (12/30/21 1:34 PM) *H* *H* (12/30/21 8:52 AM) (12/30/21 8:52 AM ) Respiratory Rate [16-30 br/min] 18 br/min 18 br/min 18 br/min (12/30/21 4:17 PM) (12/30/21 3:17 PM) (12/30/21 1:34 P M) Temperature [96.8-100.4 DegF] 98.2 DegF 97.6 DegF 97 .8 DegF (12/30/21 1:34 PM) (12/30/21 7:27 AM) (12/30/21 2:48 A M) Liters per Minute 1 L/min 1 L/min 1 L/min (12/28/21 3:00 AM) (12/27/21 11:00 PM) (12/27/21 7:00 PM) Mode of Delivery (Oxygen) Room air Room air Room a ir (12/30/21 1:34 PM) (12/30/21 7:27 AM) (12/30/21 2:48 A M) Blood pressure sites Arm, right Arm, right Arm, right (12/30/21 1:34 PM) (12/30/21 7:27 AM) (12/30/21 2:48 A M) Temperature Route Temporal Temporal Temporal (12/30/21 1:34 PM) (12/30/21 7:27 AM) (12/30/21 2:48 A M) Dry Weight 81.6 kg (12/27/21 6:20 PM) Weight Obtained Via Bed scale Bed scale (12/29/21 2:18 AM) (12/27/21 6:13 PM) Social History Social History Type Response Smoking Status Former smoker; Tobacco user in household: No entered on: 07/07/16 Sex
--- OUTSIDE RECORDS SUMMARY | 2022-09-11 22:52 | XMS_ITS | Continuity of Care Document ---
:1960 Author Organization [facility] Address [address] [place] [address]- Care Team Providers Name Role Phone Shaneka Burton DO Primary Care Physician Encounter [facility] Date(s): 01/15/21 - 01/27/[address] [address] Discharge Disposition: A-D/C Home Attending Physician: Feliz Teixeira MD, Hoang Admitting Physician: Edmund Najera MD Referring Physician: Not on Staff, Referring [...] 12/16/20 11:27:00 EST, Route to Pharmacy Electronically, [facility] #[id number], Partial fill upon patient request if the prescription is for a schedule II o... Start Date: 12/16/20 Status: OrderedamLODIPine 5 mg oral tablet 5 mg, 1, tablet, By Mouth, Daily, # 15 tablet, Refills 1, Tot. Refills 1, Maintenance, 01/16/20 9:59:00 EST, Route to Pharmacy Electronically, [facility] #[id number], 158, cm, 01/15/20 20:17:00 EST, Height, 64, kg, 01/11/20 21:31:00 EST, Dry Weight Start Date: 01/16/20 Status: Orderedammonium lactate 12% topical cream See Instructions, Topically 2 times a day to feet, # 140 Gm, 0 Refills, Maintenance, 01/16/20 10:04:00 EST, Cream, [facility] #[id number], Topically 2 times a day to feet, 158, cm, 01/15/20 20:17:00 EST, Height, 64, kg, 01/11/20 21:31:00 EST, Dry... Start Date: 01/16/20 Status: Orderedaspirin 81 mg oral tablet 1 tablet = 81 mg, By Mouth, Daily, # 15 tablet, 1 Refills, Maintenance, 01/16/20 10:00:00 EST, Tablet, [facility] #[id number], 158, cm, 01/15/20 20:17:00 EST, Height, 64, kg, 01/11/20 21:31:00 EST, Dry Weight Start Date: 01/16/20 Stop Date: 03/16/20 Status: Orderedatorvastatin 80 mg oral tablet 1 tablet = 80 mg, By Mouth, Daily, # 15 tablet, 1 Refills, Maintenance, 01/16/20 10:01:00 EST, Tablet, [facility] #[id number], 158, cm, 01/15/20 20:17:00 EST, Height, 64, kg, 01/11/20 21:31:00 EST, Dry Weight Start Date: 01/16/20 Stop Date: 03/16/20 Status: OrderedEffexor XR 150 mg oral capsule, extended release 150 mg, 1, capsule, By Mouth, Daily, # 15 capsule, Refills 1, Tot. Refills 1, Maintenance, 01/16/20 10:04:00 EST, Route to Pharmacy Electronically, [facility] #[id number], 158, cm, 01/15/20 20:17:00 EST, Height, 64, kg, 01/11/20 21:31:00 EST, Dry... Start Date: 01/16/20 Status: Orderedfamotidine 20 mg oral tablet 20 mg, 1, tablet, By Mouth, Daily, # 30 tablet, Refills 0, Tot. Refills 0, Maintenance, 12/16/20 11:27:00 EST, Route to Pharmacy Electronically, [facility] #[id number], Partial fill upon patient request if the prescription is for a schedule II op... Start Date: 12/16/20 Status: Orderedfludrocortisone 0.1 mg oral tablet 1 tablet = 0.1 mg, By Mouth, Daily, for 30 days, # 30 tablet, 0 Refills, Acute 02/26/21 11:18:00 EDT, 01/27/21 11:18:00 EST, Tablet, [facility], Partial fill upon patient request if the prescription is for a schedule II opioid drug., 158... Start Date: 01/27/21 Stop Date: 02/26/21 Status: Orderedgabapentin 300 mg oral capsule 300 mg, Capsule, By Mouth, 01/27/21 9:00:00 EST Start Date: 01/27/21 Stop Date: 01/27/21 Status: Completedgabapentin 600 mg oral tablet 1 tablet = 600 mg, By Mouth, 3 times a day, # 45 tablet, 1 Refills, Maintenance, 01/16/20 10:01:00 EST, Tablet, [facility] #[id number], 158, cm, 01/15/20 20:17:00 EST, Height, 64, [...] 1 Refills, Maintenance, 01/16/20 10:03:00 EST, Tablet, [facility] #[id number], 158, cm, 01/15/20 20:17:00 EST, Height, 64, kg, 01/11/20 21:31:00 EST, Dry Weight Start Date: 01/16/20 Status: Orderedmetoprolol 50 mg oral tablet, extended release 50 mg, XL Tablet, By Mouth, 01/27/21 9:00:00 EST Start Date: 01/27/21 Stop Date: 01/27/21 Status: Completedmetoprolol 50 mg oral tablet, extended release 50 mg, 1, tablet, By Mouth, Daily, # 30 tablet, Refills 0, Tot. Refills 0, Maintenance, 12/16/20 11:26:00 EST, Route to Pharmacy Electronically, [facility] #[id number], Partial fill upon patient request if the prescription is for a schedule II op... Start Date: 12/16/20 Status: OrderedNovoLOG FlexPen 100 units/mL injectable solution See Instructions, take 8-18 units of novolog 3 times a day with meals per sliding scale. No more than 54 units a day. E 11.9, # 30 mL, 1 Refills, Maintenance, 01/16/20 10:00:00 EST, [facility] #[id number], 100-149 8 UNITS; 150-199 10 UNITS; 200... Start Date: 01/16/20 Status: Orderedpantoprazole 40 mg oral delayed release tablet 1 tablet = 40 mg, By Mouth, 2 times a day, # 60 tablet, 0 Refills, Maintenance, 01/27/21 11:18:00 EST, EC Tablet, 158, cm, 01/27/21 8:48:00 EST, Height, 77.6, kg, 12/13/20 5:58:00 EST, Dry Weight Start Date: 01/27/21 Stop Date: 02/26/21 Status: OrderedPen [place], 31 G x 5 mm BD Ultra [...] 12/16/20 11:26:00 EST, Route to Pharmacy Electronically, [facility] #[id number], Partial fill upon patient request if the prescription is for a... Start Date: 12/16/20 Status: OrderedTresiba FlexTouch 100 units/mL subcutaneous solution = 24 units, 0 Refills, Maintenance, 01/27/21 11:17:00 EST, Partial fill upon patient request if the prescription is for a schedule II opioid drug. Start Date: 01/27/21 Status: Orderedvancomycin 25 mg/mL oral liquid 5 mL = 125 mg, By Mouth, Every 6 hours, for 3 days, Doses greater than 125 mg require ID consult., #60 mL, 0 Refills, Acute 01/30/21 11:19:00 EST, 01/27/21 11:19:00 EST, Suspension, [facility], Partial fill upon patient request if the p... Start Date: 01/27/21 Stop Date: 01/30/21 Status: OrderedZofran 4 mg oral tablet 1 tablet = 4 mg, By Mouth, Every 8 hours, PRN Nausea, # 15 tablet, 0 Refills, Maintenance, 12/16/20 11:27:00 EST, Tablet, [facility] #[id number], Partial fill upon patient request if the [...] Results Orders for Microbiology Reports Name Date Stool Culture (Culture Stool) 01/19/21 Blood Culture 01/18/21 Blood Culture #2 01/18/21 Urine Culture 01/18/21 Microbiology Reports TEST:Stool Culture STATUS:Auth (Verified) BODY SITE: SOURCE:STOOL COLLECTED DATE/TIME:01/19/21 4:30 PMStool Culture SPECIMEN DESCRIPTION : STOOL NOT IN DIMA ESTEVAN PRESERVATIVE SPECIAL REQUESTS : NONE CULTURE : SPECIMEN NOT RECEIVED IN [facility] [facility], UNABLE TO TEST FOR SHIGA TOXIN. CONTACT [facility] FOR COLLECTION AND TRANSPORT INSTRUCTION AND SUPPLIES NO SALMONELLA, SHIGELLA, CAMPYLOBACTER, AEROMONAS OR E.COLI O157:H7 ISOLATED. REPORT STATUS : FINAL 01/22/2021TEST:Blood Culture STATUS:Auth (Verified) BODY SITE: SOURCE:Blood COLLECTED DATE/TIME:01/18/21 2:42 PMBlood Culture SPECIMEN DESCRIPTION : BLOOD R HAND SPECIAL REQUESTS : NONE CULTURE : NO GROWTH 5 DAYS. REPORT STATUS : FINAL 01/23/2021TEST:Blood Culture, Second Order STATUS:Auth (Verified) BODY SITE: SOURCE:Blood COLLECTED DATE/TIME:01/18/21 2:42 PMBlood Culture, Second Order SPECIMEN DESCRIPTION : BLOOD L HAND SPECIAL REQUESTS : NONE CULTURE : NO GROWTH 5 DAYS. REPORT STATUS : FINAL 01/23/2021TEST:Urine Culture STATUS:Auth (Verified) BODY SITE: SOURCE:URINE COLLECTED DATE/TIME:01/18/21 9:30 AMUrine Culture SPECIMEN DESCRIPTION : URINE CLEAN CATCH/MIDSTREAM SPECIAL REQUESTS : NONE CULTURE : >100,000 COL/ML KLEBSIELLA PNEUMONIAE >100,000 COL/ML GROUP B BETA HEMOLYTIC STREPTOCOCCI ISOLATED. SUSCEPTIBILITY TESTING NOT ROUTINELY PERFORMED ON THIS ISOLATE. REPORT STATUS : FINAL 01/20/2021 ORGANISM >100,000 COL/ML KLEBSIELLA PNEUMONIAE METHOD MIN. INHIB. CONC. (MCG/ML) AMPICILLIN RESISTANT AMPICILLIN/SULBACTAM SUSCEPTIBLE AMOXICILLIN/CLAVULAN SUSCEPTIBLE CEFAZOLIN SUSCEPTIBLE CEFEPIME SUSCEPTIBLE CEFTRIAXONE SUSCEPTIBLE CIPROFLOXACIN SUSCEPTIBLE ERTAPENEM SUSCEPTIBLE GENTAMICIN SUSCEPTIBLE LEVOFLOXACIN SUSCEPTIBLE MEROPENEM SUSCEPTIBLE NITROFURANTOIN INTERMEDIATE PIPERACILLIN/TAZOBAC SUSCEPTIBLE TRIMETH/SULFAMETHOX SUSCEPTIBLE TETRACYCLINE SUSCEPTIBLERadiology Reports Exam Date Time Procedure Performing Provider Status 01/15/21 1:56 AM Chest Portable Cristiane Baxter; Auth (Verified) Notes:(Chest Portable) Reason For Exam: Shortness of BreathRESULT: Chest Portable Chest Portable Hx of Present Illness: 3 weeks of abd pain with vomiting.; Reason: Shortness of Breath; Clinical Question(s): Pneumonia COMPARISON: 12/12/2020 FINDINGS: LINES AND TUBES: The left-sided pacing device remains in place. Wires remain well positioned. LUNGS AND PLEURA: Clear lungs. Normal pulmonary vascularity. No pleural effusion. No pneumothorax. HEART, MEDIASTINUM AND TUNG: Heart is normal in size. Normal upper mediastinal and hilar contour. BONES AND SOFT TISSUES: There are surgical clips in the right upper quadrant. IMPRESSION: No acute abnormality. WSN: [id number] Ordering Physician: Casey Lopez Dictated By: Gabriel Guzman MD Dictated Date/Time: 01/15/21 9:07 am Reviewed By: Gabriel Guzman MD Signed By: Gabriel Guzman MD Signed Date/Time: 01/15/21 9:07 am Transcribed By: LYN Transcribed Date/Time: 01/15/21 9:06 am Vital Signs Most recent to oldest 1 2 3 [Reference Range]: Height 158 cm 158 cm 158 cm (01/27/21 2:00 PM) (01/27/21 8:48 AM) (01/27/21 3:47 A M) Weight 74.2 kg 73.6 kg 73.0 kg (01/27/21 3:47 AM) (01/25/21 2:00 AM) (01/23/21 2:12 A M) Oxygen Saturation [94-100 %] 97 % 96 % 95 % (01/27/21 2:00 PM) (01/27/21 8:48 AM) (01/27/21 3:47 A M) Pulse Rate [55-90 bpm] 84 bpm 78 bpm 78 bpm (01/27/21 2:00 PM) (01/27/21 9:42 AM) (01/27/21 8:48 A M) Body Mass Index [18.5-24.99] 29.72 29.24 31. 29 *H* *H* *>HHI* (01/27/21 3:47 AM) (01/23/21 2:12 AM) (01/22/21 2:48 A M) Blood Pressure [90-138/55-84 95/61 mm Hg 150/69 mm Hg 150 /69 mm Hg mm Hg] (01/27/21 2:00 PM) *H* *H* (01/27/21 9:42 AM) (01/27/21 8:48 AM ) Respiratory Rate [16-30 18 br/min 18 br/min 18 br/mi n br/min] (01/27/21 2:00 PM) (01/27/21 10:41 AM) (01/27/21 9:41 AM) Temperature [96.8-100.4 DegF] 98 DegF 98.7 DegF 98 .7 DegF (01/27/21 2:00 PM) (01/27/21 8:48 AM) (01/27/21 3:47 A M) Liters per Minute 2 L/min 2 L/min 2 L/min (01/17/21 1:05 AM) (01/17/21 12:55 AM) (01/17/21 12 :44 AM) Mode of Delivery (Oxygen) Room air Room air Room a ir (01/27/21 2:00 PM) (01/27/21 8:48 AM) (01/27/21 3:47 A M) Blood pressure sites Arm, right Arm, right Arm, right (01/27/21 2:00 PM) (01/27/21 8:48 AM) (01/27/21 3:47 A M) Temperature Route Oral Oral Oral (01/27/21 2:00 PM) (01/27/21 8:48 AM) (01/27/21 3:47 A M) Weight Obtained Via Bed scale Bed scale Bed scale (01/27/21 3:47 AM) (01/25/21 2:00 AM) (01/23/21 2:12 A M) Social History Social History Type Response Smoking Status Former smoker; Tobacco user in household: No entered on: 07/07/16 Sex Female
--- OUTSIDE RECORDS SUMMARY | 2022-09-11 22:52 | XMS_ITS | Continuity of Care Document ---
:1960 Author Organization [facility] Address [address] [place] [address]- Care Team Providers Name Role Phone BurakrosalindShaneka rashid DO Primary Care Physician Encounter [facility] Date(s): 06/16/21 - 07/25/[address] [address] Attending Physician: Antonette Liu NP Admitting Physician: Antonette Liu NP Referring Physician: Antonette Liu NP Allergies, Adverse Reactions, Alerts Substance Reaction Severity [...] tablet, 3 Refills, Maintenance, 04/27/21 16:20:00EDT, Tablet, [facility], Partial fill upon patient request if the prescription is for a schedule II opioid drug., jesús Soni, 03/02/21 16:5... Start Date: 04/27/21 Status: Ordereddiclofenac [...] 03/03/21 11:06:00 EDT, Route to Pharmacy Electronically, [facility], Partial fill upon patient request if the prescription is for a sched... Start Date: 03/03/21 Status: Orderedinsulin degludec 100 units/mL subcutaneous solution = 12 units, Subcutaneous Injection, Daily, # 24 mL, 0 Refills, Maintenance, 03/03/21 11:05:00 EDT, [facility] 3, Partial fill upon patient request if the prescription is for a schedule II opioid drug., 158, cm, 03/02/21 16:50:00 EDT, [facility]... Start Date: 03/03/21 Status: OrderedLORazepam 0.5 mg [...] 0 Refills, Maintenance, 03/03/21 11:06:00 EDT, Tablet, [facility] 3, Partial fill upon patient request [...]
--- OUTSIDE RECORDS SUMMARY | 2022-09-11 22:52 | XMS_ITS | Continuity of Care Document ---
:1960 Author Organization [facility] Address [address] [place] [address]- Care Team Providers Name Role Phone Shaneka Burton DO Primary Care Physician Encounter [facility] Date(s): 09/02/20 - 11/01/[address] [address] Attending Physician: Joshua Sharif MD Referring Physician: Joshua [...] 01/16/20 9:59:00 EST, Route to Pharmacy Electronically, [facility] #[id number], 158, cm, 01/15/20 20:17:00 EST, Height, 64, kg, 01/11/20 21:31:00 EST, Dry Weight Start Date: 01/16/20 Status: Orderedammonium lactate 12% topical cream See Instructions, Topically 2 times a day to feet, # 140 Gm, 0 Refills, Maintenance, 01/16/20 10:04:00 EST, Cream, [facility] #[id number], Topically 2 times a day to feet, 158, cm, 01/15/20 20:17:00 EST, Height, 64, kg, 01/11/20 21:31:00 EST, Dry... Start Date: 01/16/20 Status: Orderedaspirin 81 mg oral tablet 1 tablet = 81 mg, By Mouth, Daily, # 15 tablet, 1 Refills, Maintenance, 01/16/20 10:00:00 EST, Tablet, [facility] #[id number], 158, cm, 01/15/20 20:17:00 EST, Height, 64, kg, 01/11/20 21:31:00 EST, Dry Weight Start Date: 01/16/20 Stop Date: 03/16/20 Status: Orderedatorvastatin 80 mg oral tablet 1 tablet = 80 mg, By Mouth, Daily, # 15 tablet, 1 Refills, Maintenance, 01/16/20 10:01:00 EST, Tablet, [facility] #[id number], 158, cm, 01/15/20 20:17:00 EST, Height, 64, kg, 01/11/20 21:31:00 EST, Dry Weight Start Date: 01/16/20 Stop Date: 03/16/20 Status: OrderedEffexor XR 150 mg oral capsule, extended release 150 mg, 1, capsule, By Mouth, Daily, # 15 capsule, Refills 1, Tot. Refills 1, Maintenance, 01/16/20 10:04:00 EST, Route to Pharmacy Electronically, [facility] #[id number], 158, cm, 01/15/20 20:17:00 EST, Height, 64, kg, 01/11/20 21:31:00 EST, Dry... Start Date: 01/16/20 Status: Orderedgabapentin 600 mg oral tablet 1 tablet = 600 mg, By Mouth, 3 times a day, # 45 tablet, 1 Refills, Maintenance, 01/16/20 10:01:00 EST, Tablet, [facility] #[id number], 158, cm, 01/15/20 20:17:00 EST, Height, 64, kg, 01/11/20 21:31:00 EST, Dry Weight Start Date: 01/16/20 Status: OrderedLantus Solostar Pen 100 units/mL subcutaneous solution = 50 units, Subcutaneous Injection, Daily in AM, MUST MAKE AND KEEP APPT FOR FURTHER REFILLS OR CALLPCP, , E11.9, # 30 mL, 0 Refills, Maintenance, 05/28/20 14:29:00 EDT, Solution, [facility] #[id number], 158, cm, 01/15/20 20:17:00 ES... Start Date: [...] 1 Refills, Maintenance, 01/16/20 10:03:00 EST, Tablet, [facility] #[id number], 158, cm, 01/15/20 20:17:00 EST, Height, 64, kg, 01/11/20 21:31:00 EST, Dry Weight Start Date: 01/16/20 Status: OrderedNovoLOG FlexPen 100 units/mL injectable solution See Instructions, take 8-18 units of novolog 3 times a day with meals per sliding scale. No more than 54 units a day. E 11.9, # 30 mL, 1 Refills, Maintenance, 01/16/20 10:00:00 EST, [facility] #[id number], 100-149 8 UNITS; 150-199 10 UNITS; 200... Start Date: 01/16/20 Status: Orderedomeprazole 20 mg oral enteric coated capsule 1 capsule = 20 mg, By Mouth, Daily, # 90 capsule, 0 Refills, Maintenance, 06/14/20 11:15:00 EDT, EC Capsule Start Date: 06/14/20 Status: OrderedPen [place], 31 G x 5 mm BD Ultra [...]
--- OUTSIDE RECORDS SUMMARY | 2022-09-11 22:52 | XMS_ITS | Continuity of Care Document ---
:1960 Author Organization [facility] Address [address] [place] [address]- Care Team Providers Name Role Phone Corrine Dominguez MD Primary Care Physician [id number] Date(s): 01/03/20 - 01/05/[address] [address] [facility] Discharge Disposition: A-D/C Home Attending Physician: Faiza Hernandez DO Admitting Physician: Sherwin Mae MD Referring Physician: Not on Staff, Referring [...] Maintenance, 02/10/18 9:07:38, Route to Pharmacy Electronically, [id number], [facility] Start Date: 02/10/18 Status: OrderedamLODIPine 5 mg oral tablet 5 mg, 1, tablet, By Mouth, Daily, # 30 tablet, Refills 0, Tot. Refills 0, Maintenance, 01/05/20 10:00:00 EST, Route to Pharmacy Electronically, [facility] #[id number], 158, cm, 12/30/19 0:44:00 EST, Height, 61, kg, 12/27/19 17:44:00 EST, Dry Weight Start Date: 01/05/20 Status: Orderedaspirin 81 mg oral tablet 1 [...] Refills, Maintenance, Tablet, Route to Pharmacy Electronically, [id number], [facility] 3 Start Date: 03/03/19 Stop Date: 07/01/19 [...] 01/27/20 11:18:00 EST, 12/28/19 11:18:00 EST, Tablet, [facility] #[id number], 158,cm, 12/28/19 8:36:00 EST, Height, 61, kg, [...] 250-299 14 U... Start Date: 03/03/19 Status: OrderedNuLYTELY with Flavor Packs oral powder for reconstitution 240 mL, By Mouth, Every 10 minutes, # 4,000 mL, 0 Refills, Maintenance, 01/02/20 12:42:00 EST, REC Powder, [facility] #[id number], 240 mL By Mouth Every 10 minutes, 158, cm, 12/30/19 0:44:00 EST, Height, 61, kg, 12/27/19 17:44:00 EST, Dry Weight Start Date: 01/02/20 Status: OrderedPen [place], 31 G x 5 mm BD Ultra [...] Ulcer of Heel and Midfoot(Confirmed) 12/28/11 Active Results Radiology Reports Exam Date Time Procedure Performing Provider Status 01/04/20 12:30 AM Chest 2 Views Frontal and Lat Iris Villalpando ; Barney (Verified) Notes:(Chest 2 Views Frontal and Lat) Reason For Exam: Shortness of Breath, Fever;Other:RESULT: Chest 2 Views Frontal and Lat Chest 2 Views Frontal and Lat INDICATION/CLINICAL QUESTION: Breath. Fever. Prior cardiac surgery. TECHNIQUE: Frontal and lateral views of the chest. COMPARISON: 12/26/2019. FINDINGS: LINES AND TUBES: Dual-lead pacemaker satisfactory LUNGS AND PLEURA: RIGHT CHEST: The right lung is clear and there is no right effusion. LEFT CHEST: The left lung is clear and there is no left effusion. HEART, MEDIASTINUM AND NO: The heart is of normal size. The mediastinum and no are normal. BONES AND SOFT TISSUES: No acute bony abnormality. IMPRESSION: 1. No active disease in chest. WSN: [id number] Dictated By: Martin Schulte MD Dictated Date/Time: 01/04/20 0:49 am Reviewed By: Martin Schulte MD Signed By: Martin Schulte MD Signed Date/Time: 01/04/20 0:49 am Transcribed By: LYN Transcribed Date/Time: 01/04/20 0:49 am Vital Signs Most recent to oldest 1 2 3 [Reference Range]: Oxygen Saturation [94-100 96 % 100 % 100 % %] (01/05/20 8:51 AM) (01/05/20 5:15 AM) (01/04/20 6:4 2 PM) Pulse Rate [55-90 bpm] 87 bpm 87 bpm 77 bpm (01/05/20 9:10 AM) (01/05/20 8:51 AM) (01/05/20 5:1 5 AM) Blood Pressure 110/64 mm Hg 110/64 mm Hg 110/64 mm Hg [90-138/55-84 mm Hg] (01/05/20 9:10 AM) (01/05/20 9:09 AM) ( 0 8:51 AM) Respiratory Rate [16-30 18 br/min 18 br/min 18 br/mi n br/min] (01/05/20 9:09 AM) (01/05/20 8:51 AM) (01/05/20 5:1 5 AM) Temperature [96.8-100.4 98.3 DegF 97.8 DegF 98.2 Deg F DegF] (01/05/20 8:51 AM) (01/05/20 5:15 AM) (01/04/20 6:4 2 PM) Mode of Delivery (Oxygen) Room air Room air Room a ir (01/05/20 8:51 AM) (01/05/20 5:15 AM) (01/04/20 6:4 2 PM) Blood pressure sites Arm, right Arm, left Arm, right (01/05/20 8:51 AM) (01/04/20 6:42 PM) (01/04/20 6:1 2 PM) Temperature Route Oral Oral Oral (01/05/20 8:51 AM) (01/05/20 5:15 AM) (01/04/20 6:4 2 PM) Sensory deficits None (01/04/20 8:36 PM) Mobility assistance Transfer, assist of 1 (01/04/20 8:36 PM) Social History Social History Type Response Smoking Status Former smoker; Tobacco user in household: No entered on: 07/07/16 Sex Female
--- OUTSIDE RECORDS SUMMARY | 2022-09-11 22:52 | XMS_ITS | Continuity of Care Document ---
:1960 Author Organization [facility] Address [address] [place] [address]- Care Team Providers Name Role Phone Tayler Rogers MD Primary Care Physician [place] [facility] [id number] Date(s): 03/25/22 - 04/30/[address] [address] Attending Physician: Reymundo Stearns MD Admitting Physician: Reymundo Stearns MD Referring Physician: Reymundo Stearns MD Allergies, Adverse Reactions, Alerts Substance Reaction [...] tablet, 3 Refills, Maintenance, 04/27/21 16:20:00EDT, Tablet, [facility], Partial fill upon patient [...] 03/03/21 11:06:00 EDT, Route to Pharmacy Electronically, [facility], Partial fill upon patient request if the prescription is for a sched... Start Date: 03/03/21 Status: Orderedlisinopril 5 mg oral tablet 5 mg, 1, tablet, By Mouth, Daily, # 90 tablet, Refills 2, Tot. Refills 2, Maintenance, 12/30/21 13:15:00 EST, Route to Pharmacy Electronically, [facility] 3, Partial fill upon patient request [...] II opioid drug. Start Date: 12/27/21 Status: OrderedMetoprolol Succinate ER 50 mg oral [...] 0 Refills, Maintenance, 03/03/21 11:06:00 EDT, Tablet, [facility] 3, Partial fill upon patient request [...]
--- OUTSIDE RECORDS SUMMARY | 2022-09-11 22:52 | XMS_ITS | Continuity of Care Document ---
:1960 Author Organization [facility] Address [address] [place] [address]- Care Team Providers Name Role Phone Josephine AMADOR Shaneka Primary Care Physician Encounter [facility] [place] Date(s): 12/28/19 - 06/27/[address] [address]- [facility] Attending Physician: David Rodrigez MD Admitting Physician: David Rodrigez MD Allergies, Adverse Reactions, Alerts Substance Reaction [...] 01/16/20 9:59:00 EST, Route to Pharmacy Electronically, [facility] #[id number], 158, cm, 01/15/20 20:17:00 EST, Height, 64, kg, 01/11/20 21:31:00 EST, Dry Weight Start Date: 01/16/20 Status: Orderedammonium lactate 12% topical cream See Instructions, Topically 2 times a day to feet, # 140 Gm, 0 Refills, Maintenance, 01/16/20 10:04:00 EST, Cream, [facility] #[id number], Topically 2 times a day to feet, 158, cm, 01/15/20 20:17:00 EST, Height, 64, kg, 01/11/20 21:31:00 EST, Dry... Start Date: 01/16/20 Status: Orderedaspirin 81 mg oral tablet 1 tablet = 81 mg, By Mouth, Daily, # 15 tablet, 1 Refills, Maintenance, 01/16/20 10:00:00 EST, Tablet, [facility] #[id number], 158, cm, 01/15/20 20:17:00 EST, Height, 64, kg, 01/11/20 21:31:00 EST, Dry Weight Start Date: 01/16/20 Stop Date: 03/16/20 Status: Orderedatorvastatin 80 mg oral tablet 1 tablet = 80 mg, By Mouth, Daily, # 15 tablet, 1 Refills, Maintenance, 01/16/20 10:01:00 EST, Tablet, [facility] #[id number], 158, cm, 01/15/20 20:17:00 EST, Height, 64, kg, 01/11/20 21:31:00 EST, Dry Weight Start Date: 01/16/20 Stop Date: 03/16/20 Status: OrderedEffexor XR 150 mg oral capsule, extended release 150 mg, 1, capsule, By Mouth, Daily, # 15 capsule, Refills 1, Tot. Refills 1, Maintenance, 01/16/20 10:04:00 EST, Route to Pharmacy Electronically, [facility] #[id number], 158, cm, 01/15/20 20:17:00 EST, Height, 64, kg, 01/11/20 21:31:00 EST, Dry... Start Date: 01/16/20 Status: Orderedgabapentin 600 mg oral tablet 1 tablet = 600 mg, By Mouth, 3 times a day, # 45 tablet, 1 Refills, Maintenance, 01/16/20 10:01:00 EST, Tablet, [facility] #[id number], 158, cm, 01/15/20 20:17:00 EST, Height, 64, kg, 01/11/20 21:31:00 EST, Dry Weight Start Date: 01/16/20 Status: OrderedLantus Solostar Pen 100 units/mL subcutaneous solution = 50 units, Subcutaneous Injection, Daily in AM, MUST MAKE AND KEEP APPT FOR FURTHER REFILLS OR CALLPCP, , E11.9, # 30 mL, 0 Refills, Maintenance, 05/28/20 14:29:00 EDT, Solution, [facility] #[id number], 158, cm, 01/15/20 20:17:00 ES... Start Date: [...] 1 Refills, Maintenance, 01/16/20 10:03:00 EST, Tablet, [facility] #[id number], 158, cm, 01/15/20 20:17:00 EST, Height, 64, kg, 01/11/20 21:31:00 EST, Dry Weight Start Date: 01/16/20 Status: OrderedNovoLOG FlexPen 100 units/mL injectable solution See Instructions, take 8-18 units of novolog 3 times a day with meals per sliding scale. No more than 54 units a day. E 11.9, # 30 mL, 1 Refills, Maintenance, 01/16/20 10:00:00 EST, [facility] #59997, 100-149 8 UNITS; 150-199 10 UNITS; 200... Start Date: 01/16/20 Status: Orderedomeprazole 20 mg oral enteric coated capsule 1 capsule = 20 mg, By Mouth, Daily, # 90 capsule, 0 Refills, Maintenance, 06/14/20 11:15:00 EDT, EC Capsule Start Date: 06/14/20 Status: OrderedPen [place], 31 G x 5 mm BD Ultra [...]
--- OUTSIDE RECORDS SUMMARY | 2022-09-11 22:52 | XMS_ITS | Continuity of Care Document ---
:1960 Author Organization [facility] Address [address] [place] [address]- Care Team Providers Name Role Phone Corirne Dominguez MD Primary Care Physician Encounter [facility] Date(s): 04/26/20 - 04/26/[address] [address]- [facility] Encounter Diagnosis Osteochondral fracture (Final) - 04/26/20 Discharge Disposition: A-D/C Home Attending Physician: Elie Ordonez MD Admitting Physician: Elie Ordonez MD Referring Physician: Not on Staff, Referring [...] tablet 100 mg, By Mouth, Daily, # 15 tablet, Refills 1, Tot. Refills 1, Maintenance, 01/16/20 10:00:00 EST,Route to Pharmacy Electronically, [facility] #[id number], 158, cm, 01/15/20 20:17:00 EST, Height, 64, kg, 01/11/20 21:31:00 EST, Dry Weight Start Date: 01/16/20 Status: OrderedamLODIPine 5 mg oral tablet 5 mg, 1, tablet, By Mouth, Daily, # 15 tablet, Refills 1, Tot. Refills 1, Maintenance, 01/16/20 9:59:00 EST, Route to Pharmacy Electronically, [facility] #[id number], 158, cm, 01/15/20 20:17:00 EST, Height, 64, kg, 01/11/20 21:31:00 EST, Dry Weight Start Date: 01/16/20 Status: Orderedammonium lactate 12% topical cream See Instructions, Topically 2 times a day to feet, # 140 Gm, 0 Refills, Maintenance, 01/16/20 10:04:00 EST, Cream, [facility] #[id number], Topically 2 times a day to feet, 158, cm, 01/15/20 20:17:00 EST, Height, 64, kg, 01/11/20 21:31:00 EST, Dry... Start Date: 01/16/20 Status: Orderedaspirin 81 mg oral tablet 1 tablet = 81 mg, By Mouth, Daily, # 15 tablet, 1 Refills, Maintenance, 01/16/20 10:00:00 EST, Tablet, [facility] #[id number], 158, cm, 01/15/20 20:17:00 EST, Height, 64, kg, 01/11/20 21:31:00 EST, Dry Weight Start Date: 01/16/20 Stop Date: 03/16/20 Status: Orderedatorvastatin 80 mg oral tablet 1 tablet = 80 mg, By Mouth, Daily, # 15 tablet, 1 Refills, Maintenance, 01/16/20 10:01:00 EST, Tablet, [facility] #[id number], 158, cm, 01/15/20 20:17:00 EST, Height, 64, kg, 01/11/20 21:31:00 EST, Dry Weight Start Date: 01/16/20 Stop Date: 03/16/20 Status: Orderedclotrimazole 1% topical cream 1 applicator, Topically, 2 times a day, Apply to groin, # 12 Gm, 0 Refills, Maintenance, 01/16/20 10:05:00 EST, Cream, [facility] #[id number], 1 applicator Topically 2 times a day,Instr:Apply to groin, 158, cm, 01/15/20 20:17:00 EST, Height, 64,... Start Date: 01/16/20 Status: OrderedEffexor XR 150 mg oral capsule, extended release 150 mg, 1, capsule, By Mouth, Daily, # 15 capsule, Refills 1, Tot. Refills 1, Maintenance, 01/16/20 10:04:00 EST, Route to Pharmacy Electronically, [facility] #[id number], 158, cm, 01/15/20 20:17:00 EST, Height, 64, kg, 01/11/20 21:31:00 EST, Dry... Start Date: 01/16/20 Status: Orderedgabapentin 600 mg oral tablet 1 tablet = 600 mg, By Mouth, 3 times a day, # 45 tablet, 1 Refills, Maintenance, 01/16/20 10:01:00 EST, Tablet, [facility] #[id number], 158, cm, 01/15/20 20:17:00 EST, Height, 64, kg, 01/11/20 21:31:00 EST, Dry Weight Start Date: 01/16/20 Status: Orderedinsulin glargine 100 u/ml subcutaneous solution = 10 units, Subcutaneous Injection, Daily, # 10 mL, 0 Refills, Maintenance, 01/16/20 10:27:00 EST, Solution, [facility] #[id number], 158, cm, 01/15/20 20:17:00 EST, Height, 64, kg, 01/11/20 21:31:00 EST, Dry Weight Start Date: 01/16/20 Status: OrderedInterstim for bladder Interstim for bladder, Refills 0, Maintenance, 12/22/18 9:41:13 EST, Compound Start Date: 12/22/18 Status: OrderedLantus Solostar Pen 100 units/mL subcutaneous solution = 50 units, Subcutaneous Injection, Daily in AM, # 30 mL, 3 Refills, Maintenance, 01/16/20 10:02:00 EST, Solution, [facility] #[id number], 158, cm, 01/15/20 20:17:00 EST, Height, 64, kg, 01/11/20 21:31:00 EST, Dry Weight Start Date: 01/16/20 Stop Date: 05/15/20 Status: Orderedmelatonin 5 mg oral tablet 1 tablet = 5 mg, By Mouth, Daily at bedtime, # 30 tablet, 1 Refills, Maintenance, 01/16/20 10:05:00 EST, Tablet, [facility] #[id number], 158, cm, 01/15/20 20:17:00 EST, Height, 64, kg, 01/11/20 21:31:00 EST, Dry Weight Start Date: 01/16/20 Status: Orderedmetoclopramide 5 mg oral tablet 1 tablet = 5 mg, By Mouth, 4 times a day, # 60 tablet, 1 Refills, Maintenance, 01/16/20 10:03:00 EST, Tablet, [facility] #[id number], 158, cm, 01/15/20 20:17:00 EST, Height, 64, kg, 01/11/20 21:31:00 EST, Dry Weight Start Date: 01/16/20 Status: Orderedmetoprolol 25 mg oral tablet 25 mg, 1, tablet, By Mouth, 2 times a day, # 30 tablet, Refills 0, Tot. Refills 0, Maintenance, 01/16/20 10:03:00 EST, Route to Pharmacy Electronically, [facility] #[id number], 158, cm, 01/15/20 20:17:00 EST, Height, 64, kg, 01/11/20 21:31:00 EST... Start Date: 01/16/20 Status: OrderedNovoLOG FlexPen 100 units/mL injectable solution See Instructions, take 8-18 units of novolog 3 times a day with meals per sliding scale. No more than 54 units a day. E 11.9, # 30 mL, 1 Refills, Maintenance, 01/16/20 10:00:00 EST, [facility] #[id number], 100-149 8 UNITS; 150-199 10 UNITS; 200... Start Date: 01/16/20 Status: OrderedNuLYTELY with Flavor Packs oral powder for reconstitution 240 mL, By Mouth, Every 10 minutes, # 4,000 mL, 0 Refills, Maintenance, 01/18/20 14:15:00 EST, REC Powder, [facility] #[id number], 240 mL By Mouth Every 10 minutes, 158, cm, 01/15/20 20:17:00 EST,Height, 64, kg, 01/11/20 21:31:00 EST, Dry Weight Start Date: 01/18/20 Status: OrderedPen [place], 31 G x 5 mm BD Ultra Fine III See Instructions, # 100 each, Refills 5, Tot. Refills 5, Maintenance, Check Blood sugar three times a day before meals and at bedtime, 03/03/19 15:36:24 EDT, Compound Start Date: 03/03/19 Stop Date: 08/30/19 Status: OrderedProtonix 40 mg oral delayed release tablet = 40 mg, By Mouth, Daily, # 15 tablet, 1 Refills, Maintenance, 01/16/20 10:04:00 EST, EC Tablet, 158, cm, 01/15/20 20:17:00 EST, Height, 64, kg, 01/11/20 21:31:00 EST, Dry Weight Start Date: 01/16/20 Status: Ordered Problem List Condition Effective Dates Status Health Status Informant NSTEMI (non-ST elevated myocardial Active infarction)(Confirmed) Anxiety and depression(Confirmed) Active CVA (cerebral vascular Active accident)(Confirmed) Chronic diarrhea(Confirmed) Active CKD (chronic kidney Active disease)(Confirmed) CAD (coronary artery 02/07/18 Active disease)(Confirmed) Diffuse myofascial pain Active syndrome(Confirmed) Ex-smoker(Confirmed) Active Gastroparesis/gastritis(Confirmed) Active HLD (hyperlipidemia)(Confirmed) Active Incomplete right bundle branch Active block(Confirmed) Insulin-requiring or dependent type II Active diabetes mellitus(Confirmed) Left anterior fascicular Active block(Confirmed) Neurogenic bladder(Confirmed) Active OA (osteoarthritis)(Confirmed) Active Post traumatic stress disorder Active (PTSD)(Confirmed) Vital Signs Most recent to oldest [Reference 1 2 3 Range]: Oxygen Saturation [94-100 %] 99 % 96 % 99 % (04/26/20 10:37 PM) (04/26/20 7:50 PM) (04/26/20 5:44 PM) Pulse Rate [55-90 bpm] 78 bpm 80 bpm 99 bpm (04/26/20 10:37 PM) (04/26/20 7:50 PM) *H* (04/26/20 5:44 PM) Blood Pressure [90-138/55-84 mm 136/52 mm Hg 140/69 mm Hg 146/67 mm Hg Hg] (04/26/20 10:37 PM) *H* *H* (04/26/20 7:50 PM) (04/26/20 5:44 PM ) Respiratory Rate [16-30 br/min] 18 br/min 16 br/min 16 br/min (04/26/20 10:37 PM) (04/26/20 7:50 PM) (04/26/20 5:44 PM) Temperature [96.8-100.4 DegF] 98.4 DegF 98.3 DegF (04/26/20 10:37 PM) (04/26/20 5:44 PM) Mode of Delivery (Oxygen) Room air Room air Room a ir (04/26/20 10:37 PM) (04/26/20 7:50 PM) (04/26/20 5:44 PM) Blood pressure sites Arm, right Arm, right (04/26/20 10:37 PM) (04/26/20 7:50 PM) Temperature Route Oral Oral (04/26/20 10:37 PM) (04/26/20 5:44 PM) Social History Social History Type Response Smoking Status Former smoker; Tobacco user in household: No entered on: 07/07/16 Sex Female
--- OUTSIDE RECORDS SUMMARY | 2022-09-11 22:52 | XMS_ITS | Continuity of Care Document ---
:1960 Author Organization [facility] Address [address] [place] [address]- Care Team Providers Name Role Phone Shaneka Burton DO Primary Care Physician [place] [facility] [place] 02/25/21 - 04/04/[address] [id number] Attending Physician: Shaneka Burton DO Admitting Physician: Shaneka Burton DO Referring Physician: Shaneka Burton DO Allergies, Adverse Reactions, Alerts Substance Reaction Severity [...] 03/03/21 11:06:00 EDT, Route to Pharmacy Electronically, [facility], Partial fill upon patient request if the prescription is for a sched... Start Date: 03/03/21 Status: Orderedinsulin degludec 100 units/mL subcutaneous solution = 12 units, Subcutaneous Injection, Daily, # 24 mL, 0 Refills, Maintenance, 03/03/21 11:05:00 EDT, [facility], Partial fill upon patient request if [...] 0 Refills, Maintenance, 03/03/21 11:06:00 EDT, Tablet, [facility], Partial fill upon patient request if [...]
--- OUTSIDE RECORDS SUMMARY | 2022-09-11 22:52 | XMS_ITS | Continuity of Care Document ---
:1960 Author Organization [facility] Address [address] [place] [address]- Care Team Providers Name Role Phone Burakzoltan Shaneka AMADOR Primary Care Physician Encounter [facility] [place] Date(s): 08/14/21 - 09/19/[address] [address] Attending Physician: Antonette Liu NP Admitting Physician: [...] tablet, 3 Refills, Maintenance, 04/27/21 16:20:00EDT, Tablet, [facility], Partial fill upon patient request [...] 03/03/21 11:06:00 EDT, Route to Pharmacy Electronically, [facility], Partial fill upon patient request if the prescription is for a sched... Start Date: 03/03/21 Status: Orderedinsulin degludec 100 units/mL subcutaneous solution = 12 units, Subcutaneous Injection, Daily, # 24 mL, 0 Refills, Maintenance, 03/03/21 11:05:00 EDT, [facility], Partial fill upon patient request [...] 0 Refills, Maintenance, 03/03/21 11:06:00 EDT, Tablet, [facility], Partial fill upon patient request [...]
--- OUTSIDE RECORDS SUMMARY | 2022-09-11 22:52 | XMS_ITS | Continuity of Care Document ---
:1960 Author Organization [facility] Address [address] [place] [address]- Care Team Providers Name Role Phone Shaneka Burton DO Primary Care Physician [place] [facility] [place]s): 10/22/20 - 12/24/[address] [address] Attending Physician: Anna Garcia NP Admitting Physician: Jose TELLEZ, Anna Referring Physician: Joes TELLEZ, Anna Allergies, Adverse Reactions, Alerts Substance Reaction Severity [...] 12/16/20 11:27:00 EST, Route to Pharmacy Electronically, [facility] #[id number], Partial fill upon patient request if the prescription is for a schedule II o... Start Date: 12/16/20 Status: OrderedamLODIPine 5 mg oral tablet 5 mg, 1, tablet, By Mouth, Daily, # 15 tablet, Refills 1, Tot. Refills 1, Maintenance, 01/16/20 9:59:00 EST, Route to Pharmacy Electronically, [facility] #[id number], 158, cm, 01/15/20 20:17:00 EST, Height, 64, kg, 01/11/20 21:31:00 EST, Dry Weight Start Date: 01/16/20 Status: Orderedammonium lactate 12% topical cream See Instructions, Topically 2 times a day to feet, # 140 Gm, 0 Refills, Maintenance, 01/16/20 10:04:00 EST, Cream, [facility] #[id number], Topically 2 times a day to feet, 158, cm, 01/15/20 20:17:00 EST, Height, 64, kg, 01/11/20 21:31:00 EST, Dry... Start Date: 01/16/20 Status: Orderedaspirin 81 mg oral tablet 1 tablet = 81 mg, By Mouth, Daily, # 15 tablet, 1 Refills, Maintenance, 01/16/20 10:00:00 EST, Tablet, [facility] #[id number], 158, cm, 01/15/20 20:17:00 EST, Height, 64, kg, 01/11/20 21:31:00 EST, Dry Weight Start Date: 01/16/20 Stop Date: 03/16/20 Status: Orderedatorvastatin 80 mg oral tablet 1 tablet = 80 mg, By Mouth, Daily, # 15 tablet, 1 Refills, Maintenance, 01/16/20 10:01:00 EST, Tablet, [facility] #[id number], 158, cm, 01/15/20 20:17:00 EST, Height, 64, kg, 01/11/20 21:31:00 EST, Dry Weight Start Date: 01/16/20 Stop Date: 03/16/20 Status: OrderedEffexor XR 150 mg oral capsule, extended release 150 mg, 1, capsule, By Mouth, Daily, # 15 capsule, Refills 1, Tot. Refills 1, Maintenance, 01/16/20 10:04:00 EST, Route to Pharmacy Electronically, [facility] #[id number], 158, cm, 01/15/20 20:17:00 EST, Height, 64, kg, 01/11/20 21:31:00 EST, Dry... Start Date: 01/16/20 Status: Orderedfamotidine 20 mg oral tablet 20 mg, 1, tablet, By Mouth, Daily, # 30 tablet, Refills 0, Tot. Refills 0, Maintenance, 12/16/20 11:27:00 EST, Route to Pharmacy Electronically, [facility] #[id number], Partial fill upon patient request if the prescription is for a schedule II op... Start Date: 12/16/20 Status: Orderedgabapentin 600 mg oral tablet 1 tablet = 600 mg, By Mouth, 3 times a day, # 45 tablet, 1 Refills, Maintenance, 01/16/20 10:01:00 EST, Tablet, [facility] #[id number], 158, cm, 01/15/20 20:17:00 EST, Height, 64, [...] 1 Refills, Maintenance, 01/16/20 10:03:00 EST, Tablet, [facility] #[id number], 158, cm, 01/15/20 20:17:00 EST, Height, 64, kg, 01/11/20 21:31:00 EST, Dry Weight Start Date: 01/16/20 Status: Orderedmetoprolol 50 mg oral tablet, extended release 50 mg, 1, tablet, By Mouth, Daily, # 30 tablet, Refills 0, Tot. Refills 0, Maintenance, 12/16/20 11:26:00 EST, Route to Pharmacy Electronically, [facility] #[id number], Partial fill upon patient request if the prescription is for a schedule II op... Start Date: 12/16/20 Status: OrderedNovoLOG FlexPen 100 units/mL injectable solution See Instructions, take 8-18 units of novolog 3 times a day with meals per sliding scale. No more than 54 units a day. E 11.9, # 30 mL, 1 Refills, Maintenance, 01/16/20 10:00:00 EST, [facility] #[id number], 100-149 8 UNITS; 150-199 10 UNITS; 200... Start Date: 01/16/20 Status: Orderedomeprazole 20 mg oral enteric coated capsule 1 capsule = 20 mg, By Mouth, Daily, # 90 capsule, 0 Refills, Maintenance, 06/14/20 11:15:00 EDT, EC Capsule Start Date: 06/14/20 Status: OrderedPen [place], 31 G x 5 [...] 12/16/20 11:26:00 EST, Route to Pharmacy Electronically, [facility] #[id number], Partial fill upon patient request if the prescription is for a... Start Date: 12/16/20 Status: OrderedZofran 4 mg oral tablet 1 tablet = 4 mg, By Mouth, Every 8 hours, PRN Nausea, # 15 tablet, 0 Refills, Maintenance, 12/16/20 11:27:00 EST, Tablet, [facility] #[id number], Partial fill upon patient request if the [...]
--- OUTSIDE RECORDS SUMMARY | 2022-09-11 22:53 | XMS_ITS | Continuity of Care Document ---
:1960 Author Organization [facility] Address [address] [place] [address]- Care Team Providers Name Role Phone Tayler Rogers MD Primary Care Physician Encounter [facility] [place] [facility] [id number] Date(s): 05/14/22 - 06/13/22 [facility] [address] [address]- Attending Physician: Santi Makc Admitting Physician: AdmtrSanti Referring Physician: Admtr Ar8 Allergies, Adverse Reactions, Alerts Substance Reaction [...] tablet, 3 Refills, Maintenance, 04/27/21 16:20:00EDT, Tablet, [facility], Partial fill upon patient [...] 03/03/21 11:06:00 EDT, Route to Pharmacy Electronically, [facility], Partial fill upon [...] 06/02/22 13:56:00 EDT, Route to Pharmacy Electronically, [facility], Partial fill upon patient request if the prescription is for a schedu... Start Date: 06/02/22 Status: Orderedlisinopril 5 mg oral tablet 5 mg, 1, tablet, By Mouth, Daily at bedtime, # 90 tablet, Refills 2, Tot. Refills 2, Maintenance, 12/30/21 13:15:00 EST, Route to Pharmacy Electronically, [facility], Partial fill upon patient [...] 0 Refills, Maintenance, 03/03/21 11:06:00 EDT, Tablet, [facility], Partial fill upon [...] (chronic kidney Active disease)(Confirmed) CAD (coronary artery 3/19/18 Active disease)(Confirmed) Diffuse myofascial pain Active syndrome(Confirmed) [...]
--- OUTSIDE RECORDS SUMMARY | 2022-09-11 22:53 | XMS_ITS | Continuity of Care Document ---
:1960 Author Organization [facility] Address [address] [place] [address]- Care Team Providers Name Role Phone Shaneka Burton DO Primary Care Physician Encounter [facility] [place] Date(s): 02/25/21 - 03/03/[address] [address] Discharge Disposition: A-Transfer VNA/Home Health Attending Physician: Edmund Singh MD Admitting Physician: Edmund Najera MD Referring Physician: [...] oral tablet 5 mg, Tablet, By Mouth, 03/03/21 9:00:00 EDT Start Date: 03/03/21 Stop Date: 03/03/21 Status: CompletedamLODIPine 5 mg oral tablet 1 [...] 03/03/21 11:06:00 EDT, Route to Pharmacy Electronically, [facility], Partial fill upon patient request if the prescription is for a sched... Start Date: 03/03/21 Status: Orderedgabapentin 300 mg oral capsule 600 mg, Capsule, By Mouth, 03/02/21 21:00:00 EDT Start Date: 03/02/21 Stop Date: 03/02/21 Status: Completedgabapentin 300 mg oral capsule 600 mg, Capsule, By Mouth, 03/03/21 9:00:00 EDT Start Date: 03/03/21 Stop Date: 03/03/21 Status: Completedinsulin degludec 100 units/mL subcutaneous solution = 12 units, Subcutaneous Injection, Daily, # 24 mL, 0 Refills, Maintenance, 03/03/21 11:05:00 EDT, [facility], Partial fill upon patient request if the prescription is for a schedule II opioid drug., 158, cm, 03/02/21 16:50:00 EDT, Salma. Start Date: 03/03/21 Status: OrderedLORazepam 0.5 mg [...] 02/26/21 1:54:00 EDT Start Date: 02/26/21 Status: Orderedmetoprolol 50 mg oral tablet, extended release 50 mg, XL Tablet, By Mouth, 03/03/21 9:00:00 EDT Start Date: 03/03/21 Stop Date: 03/03/21 Status: CompletedMetoprolol Succinate ER 50 mg oral [...] 0 Refills, Maintenance, 03/03/21 11:06:00 EDT, Tablet, [facility], Partial fill upon patient [...] disorder Active (PTSD)(Confirmed) QT prolongation(Confirmed) Active Results Orders for Microbiology Reports Name Date Blood Culture 02/26/21 Blood Culture #2 02/26/21 Microbiology Reports TEST:Blood Culture STATUS:Auth (Verified) BODY SITE: SOURCE:Blood COLLECTED DATE/TIME:02/26/21 5:25 PMBlood Culture SPECIMEN DESCRIPTION : BLOOD R ARM SPECIAL REQUESTS : NONE CULTURE : NO GROWTH 5 DAYS. REPORT STATUS : FINAL 03/03/2021TEST:Blood Culture, Second Order STATUS:Auth (Verified) BODY SITE: SOURCE:Blood COLLECTED DATE/TIME:02/26/21 5:25 PMBlood Culture, Second Order SPECIMEN DESCRIPTION : BLOOD L ARM SPECIAL REQUESTS : NONE CULTURE : NO GROWTH 5 DAYS. REPORT STATUS : FINAL 03/03/2021adiology Reports Exam Date Time Procedure Performing Provider Status 02/25/21 2:[address]al; Auth (Verified) Notes:(Chest Portable) Reason For Exam: CHFRESULT: Chest Portable Chest Portable Hx of Present Illness: Chest pain epigastric pain nausea for 2 days; Reason: CHF; Clinical Question(s): CHF COMPARISON: 01/15/2021. FINDINGS: LINES AND TUBES: AICD is again seen with the battery pack at the left superior lateral chest wall. This is unchanged. LUNGS AND PLEURA: Clear lungs. Normal pulmonary vascularity. No pleural effusion. No pneumothorax. HEART, MEDIASTINUM AND TUNG: Heart is normal in size. Normal upper mediastinal and hilar contour. BONES AND SOFT TISSUES: Status post prior median sternotomy. No acute abnormality. IMPRESSION: No acute abnormality. No change to prior study. WSN: [id number] Ordering Physician: Casey Lopez Dictated By: Sam Malloy MD Dictated Date/Time: 02/25/21 2:40 pm Reviewed By: Sam Malloy MD Signed By: Sam Malloy MD Signed Date/Time: 02/25/21 2:40 pm Transcribed By: LYN Transcribed Date/Time: 02/25/21 2:40 pm Vital Signs Most recent to oldest 1 2 3 [Reference Range]: Height 158 cm 158 cm 158 cm (03/02/21 4:50 PM) (03/02/21 11:07 AM) (03/02/21 5: 00 AM) Weight 73.3 kg 71.5 kg 71.5 kg (03/02/21 5:00 AM) (03/01/21 5:19 AM) (02/28/21 6:31 AM) Oxygen Saturation [94-100 %] 99 % 99 % 100 % (03/03/21 5:00 AM) (03/02/21 8:00 PM) (03/02/21 4:5 0 PM) Pulse Rate [55-90 bpm] 72 bpm 81 bpm 64 bpm (03/03/21 9:34 AM) (03/03/21 5:00 AM) (03/02/21 8:0 0 PM) Body Mass Index [18.5-24.99] 29.36 28.64 28. 64 *H* *H* *H* (03/02/21 5:00 AM) (03/01/21 5:19 AM) (02/28/21 6:31 AM) Blood Pressure [90-138/55-84 167/70 mm Hg 167/70 mm Hg 145 /61 mm Hg mm Hg] *H* *H* *H* (03/03/21 9:34 AM) (03/03/21 9:34 AM) (03/03/21 5:0 0 AM) Respiratory Rate [16-30 18 br/min 18 br/min 17 br/mi n br/min] (03/03/21 10:34 AM) (03/03/21 9:34 AM) (03/02/21 10 :00 PM) Temperature [96.8-100.4 99.0 DegF 98.3 DegF 98.1 Deg F DegF] (03/03/21 5:00 AM) (03/02/21 8:00 PM) (03/02/21 4:5 0 PM) Liters per Minute 2 L/min 2 L/min 2 L/min (03/03/21 5:00 AM) (03/02/21 8:00 PM) (03/02/21 4:5 0 PM) Mode of Delivery (Oxygen) Nasal cannula Nasal cannula Nasal cannula (03/03/21 5:00 AM) (03/02/21 8:00 PM) (03/02/21 4:5 0 PM) Blood pressure sites Arm, right Arm, right Arm, right (03/03/21 5:00 AM) (03/02/21 8:00 PM) (03/02/21 4:5 0 PM) Temperature Route Oral Oral Oral (03/03/21 5:00 AM) (03/02/21 8:00 PM) (03/02/21 4:5 0 PM) Dry Weight 72.8 kg (02/27/21 12:05 AM) Weight Obtained Via Bed scale Bed scale Bed scale (03/02/21 5:00 AM) (03/01/21 5:19 AM) (02/28/21 6:31 AM) Dry Weight Obtained Via Bed scale (02/27/21 12:05 AM) Social History Social History Type Response Smoking Status Former smoker; Tobacco user in household: No entered on: 07/07/16 Sex
--- OUTSIDE RECORDS SUMMARY | 2022-09-11 22:53 | XMS_ITS ---
:1960 External Reference #:[id number] Author Care Team Providers Name Role Phone [facility] Referring Provider [phone] Allergies None recorded. Medications Name Status Start Date Stop Date ? ? acetaminophen 325 mg tablet Active ? Not available TAKE 2 TABLETS BY MOUTH EVERY 4 HOURS NEEDED FOR PAIN acetaminophen 500 mg capsule Active ? Not available Take 2 capsules by oral route. acetaminophen 500 mg tablet Active ? Not available allopurinol 100 mg tablet Active ? Not av ailable amlodipine 5 mg tablet Active ? Not avail able aspirin 81 mg tablet,delayed release Active ? Not available atorvastatin 80 mg tablet Active ? Not av ailable BD Ultra-Fine Short Pen Needle 31 gauge x 16 Active ? Not available cefuroxime axetil 250 mg tablet Active ? Not available cephalexin 500 mg capsule Active ? Not av ailable cholecalciferol (vitamin D3) 25 mcg (1,000 unit) capsule Active ? Not available ciprofloxacin 500 mg tablet Active ? Not available diclofenac 1 % topical gel Active ? Not a vailable Easy Touch Alcohol Prep Pads Active ? Not available FeroSul 325 mg (65 mg iron) tablet Active ? Not available fludrocortisone 0.1 mg tablet Active ? No t available FreeStyle Lancets 28 gauge Active ? Not a vailable FreeStyle Lite Strips Active ? Not availa ble furosemide 40 mg tablet Active ? Not avai lable gabapentin 100 mg capsule Active ? Not av ailable hydrocodone 10 mg-acetaminophen 325 mg tablet Active ? Not available ipratropium bromide 21 mcg (0.03 %) nasal spray Active ? Not available levofloxacin 250 mg tablet Active ? Not a vailable TAKE 1 TABLET BY MOUTH EVERY 24 HOURS lidocaine 5 % topical ointment Active ? N ot available lisinopril 5 mg tablet Active ? Not avail able Lokelma 5 gram oral powder packet Active ? Not available loperamide 2 mg capsule Active ? Not avai lable lorazepam 0.5 mg tablet Active ? Not avai lable melatonin 5 mg tablet Active ? Not availa ble meloxicam 7.5 mg tablet Active ? Not avai lable metoclopramide 5 mg tablet Active ? Not a vailable metoprolol succinate ER 50 mg tablet,extended release 24 hr Acti ve ? Not available nitrofurantoin monohydrate/macrocrystals 100 mg capsule Active ? Not available nitroglycerin 0.4 mg sublingual tablet Active ? Not available Novolog Flexpen U-100 Insulin aspart 100 unit/mL (3 mL) Active ? Not available subcutaneous ondansetron 4 mg disintegrating tablet Active ? Not available oxycodone 5 mg tablet Active ? Not availa ble pantoprazole 40 mg tablet,delayed release Active ? Not available sulfamethoxazole 800 mg-trimethoprim 160 mg tablet Active ? Not available tamsulosin 0.4 mg capsule Active ? Not av ailable Tradjenta 5 mg tablet Active ? Not availa ble trazodone 50 mg tablet Active ? Not avail able Tresiba FlexTouch U-100 insulin 100 unit/mL (3 mL) Active ? Not available subcutaneous pen UltiCare Pen Needle 31 gauge x 3/16 Active ? Not available venlafaxine ER 150 mg capsule,extended release 24 hr Active ? Not available Problems None recorded. Procedures None recorded. Results Lab Results None recorded. Past Encounters 04/13/2022 Viral Syndrome Bill Sheriff MD: [address] [place] [address], Ph. 03/18/2022 Surinder Forbes MD: [address] [place] [address], Ph. 03/10/[address] James Lane MD: [address] [place] [address], Ph. Social History None recorded. Vaccine List None recorded. Plan of Care Reminders Provider Appointments None recorded. ? ? Lab None recorded. ? ? Referral None recorded. ? ? Procedures None recorded. ? ? Surgeries None recorded. ? ? Imaging None recorded. ? ? Vitals 04/13/2022 04:28PM Urgent Care Height Weight Blood Pressure (1) 5 ft 2 in (1) 166 lbs (1) 162/76 mm[Hg] (2) 5 ft 2 in (2) 166 lbs (2) 162/76 mm[Hg] (3) 5 ft 2 in (3) 166 lbs (3) 162/76 mm[Hg] 03/18/2022 06:06PM Urgent Care Blood Pressure 128/88 mm[Hg] 03/10/2022 03:47PM Urgent Care Blood Pressure 89/69 mm[Hg]
--- OUTSIDE RECORDS SUMMARY | 2022-09-11 22:53 | XMS_ITS | Continuity of Care Document ---
:1960 Author Organization [facility] Address [address] [place] [id number]- Care Team Providers Name Role Phone Shaneka Burton DO Primary Care Physician Encounter [facility] [place] Date(s): 06/13/20 - 06/15/[address] [address]- [facility] Encounter Diagnosis Syncope (Final) - 06/14/20 Discharge Disposition: A-D/C Home Attending Physician: Tan Umanzor MD Admitting Physician: Sherwin Mae MD Referring Physician: [...] 01/16/20 9:59:00 EST, Route to Pharmacy Electronically, [facility] #[id number], 158, cm, 01/15/20 20:17:00 EST, Height, 64, kg, 01/11/20 21:31:00 EST, Dry Weight Start Date: 01/16/20 Status: Orderedammonium lactate 12% topical cream See Instructions, Topically 2 times a day to feet, # 140 Gm, 0 Refills, Maintenance, 01/16/20 10:04:00 EST, Cream, [facility] #[id number], Topically 2 times a day to feet, 158, cm, 01/15/20 20:17:00 EST, Height, 64, kg, 01/11/20 21:31:00 EST, Dry... Start Date: 01/16/20 Status: Orderedaspirin 81 mg oral tablet 1 tablet = 81 mg, By Mouth, Daily, # 15 tablet, 1 Refills, Maintenance, 01/16/20 10:00:00 EST, Tablet, [facility] #[id number], 158, cm, 01/15/20 20:17:00 EST, Height, 64, kg, 01/11/20 21:31:00 EST, Dry Weight Start Date: 01/16/20 Stop Date: 03/16/20 Status: Orderedatorvastatin 80 mg oral tablet 1 tablet = 80 mg, By Mouth, Daily, # 15 tablet, 1 Refills, Maintenance, 01/16/20 10:01:00 EST, [id number], 158, cm, 01/15/20 20:17:00 EST, Height, 64, kg, 01/11/20 21:31:00 EST, Dry Weight Start Date: 01/16/20 Stop Date: 03/16/20 Status: OrderedEffexor XR 150 mg oral capsule, extended release 150 mg, 1, capsule, By Mouth, Daily, # 15 capsule, Refills 1, Tot. Refills 1, Maintenance, 01/16/20 10:04:00 EST, [id number], 158, cm, 01/15/20 20:17:00 EST, Height, 64, kg, 01/11/20 21:31:00 EST, Dry... Start Date: 01/16/20 Status: Orderedgabapentin 600 mg oral tablet 1 tablet = 600 mg, By Mouth, 3 times a day, # 45 tablet, 1 Refills, Maintenance, 01/16/20 10:01:00 EST, [id number], 158, cm, 01/15/20 20:17:00 EST, Height, 64, kg, 01/11/20 21:31:00 EST, Dry Weight Start Date: 01/16/20 Status: OrderedLantus Solostar Pen 100 units/mL subcutaneous solution = 50 units, Subcutaneous Injection, Daily in AM, MUST MAKE AND KEEP APPT FOR FURTHER [facility]FILLS [facility], , E11.9, # 30 mL, 0 Refills, Maintenance, 05/28/20 14:29:00 EDT, Solution, [facility] #[id number], 158, cm, 01/15/20 20:17:00 ES... Start Date: [...] 1 Refills, Maintenance, 01/16/20 10:03:00 EST, Tablet, [facility] #[id number], 158, cm, 01/15/20 20:17:00 EST, Height, 64, kg, 01/11/20 21:31:00 EST, Dry Weight Start Date: 01/16/20 Status: OrderedNovoLOG FlexPen 100 units/mL injectable solution See Instructions, take 8-18 units of novolog 3 times a day with meals per sliding scale. No more than 54 units a day. E 11.9, # 30 mL, 1 Refills, Maintenance, 01/16/20 10:00:00 EST, [facility] #[id number], 100-149 8 UNITS; 150-199 10 UNITS; 200... Start Date: 01/16/20 Status: Orderedomeprazole 20 mg oral enteric coated capsule 1 capsule = 20 mg, By Mouth, Daily, # 90 capsule, 0 Refills, Maintenance, 06/14/20 11:15:00 EDT, EC Capsule Start Date: 06/14/20 Status: OrderedPen [place], 31 G x 5 mm BD Ultra [...] for Microbiology Reports Name Date Blood Culture 06/14/20 Blood Culture #2 06/14/20 Microbiology Reports TEST:Blood Culture STATUS:Unauthenticated BODY SITE: SOURCE:Blood COLLECTED DATE/TIME:06/14/20 4:29 PMBlood Culture SPECIMEN DESCRIPTION : BLOOD R SPECIAL REQUESTS : NONE CULTURE : NO GROWTH AFTER 24 HOURS REPORT STATUS : PRELIMINARY REPORT TEST:Blood Culture, Second Order STATUS:Unauthenticated BODY SITE: SOURCE:Blood COLLECTED DATE/TIME:06/14/20 4:29 PMBlood Culture, Second Order SPECIMEN DESCRIPTION : BLOOD L SPECIAL REQUESTS : NONE CULTURE : NO GROWTH AFTER 24 HOURS REPORT STATUS : PRELIMINARY REPORT Radiology Reports Exam Date Time Procedure Performing Provider Status 06/13/20 9:55 PM Chest Portable Jackie Treadwell; Auth (Verified) Notes:(Chest Portable) Reason For Exam: Shortness of BreathRESULT: Chest Portable Chest Portable Reason: Shortness of Breath; Clinical Question(s): CHF COMPARISON: Prior chest radiographs, most recently January 04, 2020. FINDINGS: LINES AND TUBES: Dual-lead left subclavian pacer/AICD wires are intact. LUNGS AND PLEURA: Clear lungs. Normal pulmonary vascularity. No pleural effusion. No pneumothorax. HEART, MEDIASTINUM AND TUNG: Heart is normal in size. Normal mediastinal and hilar contour. BONES AND SOFT TISSUES: No acute abnormality. IMPRESSION: No acute abnormality. WSN: [id number] Ordering Physician: Roxi Bull Dictated By: Bola Gilliam MD Dictated Date/Time: 06/13/20 10:39 p Reviewed By: Bola Gilliam MD Signed By: Bola Gilliam MD Signed Date/Time: 06/13/20 10:39 pm Transcribed By: CSB Transcribed Date/Time: 06/13/20 10:39 pm Vital Signs Most recent to oldest 1 2 3 [Reference Range]: Height 158 cm 158 cm 158 cm (06/15/20 10:34 AM) (06/15/20 8:27 AM) (06/14/20 11 :13 PM) Weight 71.1 kg 71.9 kg (06/14/20 7:21 AM) (06/14/20 6:44 AM) Oxygen Saturation [94-100 %] 96 % 95 % 95 % (06/15/20 8:27 AM) (06/14/20 11:13 PM) (06/14/20 8: 52 PM) Pulse Rate [55-90 bpm] 83 bpm 83 bpm 87 bpm (06/15/20 9:00 AM) (06/15/20 8:27 AM) (06/14/20 11: 13 PM) Body Mass Index [18.5-24.99] 28.48 *H* (06/14/20 7:21 AM) Blood Pressure [90-138/55-84 95/47 mm Hg 95/47 mm Hg 120 /70 mm Hg mm Hg] (06/15/20 9:00 AM) (06/15/20 8:27 AM) (06/14/20 11: 13 PM) Respiratory Rate [16-30 18 br/min 18 br/min 20 br/mi n br/min] (06/15/20 9:56 AM) (06/15/20 9:00 AM) (06/15/20 8:2 7 AM) Temperature [96.8-100.4 97.6 DegF 98.2 DegF 97.9 Deg F DegF] (06/15/20 8:27 AM) (06/14/20 11:13 PM) (06/14/20 8: 52 PM) Liters per Minute 2 L/min 4 L/min 4 L/min (06/15/20 8:27 AM) (06/14/20 6:10 AM) (06/14/20 4:5 7 AM) Mode of Delivery (Oxygen) Nasal cannula Room air Room a ir (06/15/20 8:27 AM) (06/14/20 11:13 PM) (06/14/20 8: 52 PM) Blood pressure sites Arm, right Arm, right Arm, right (06/15/20 8:27 AM) (06/14/20 11:13 PM) (06/14/20 8: 52 PM) Temperature Route Oral Oral Oral (06/15/20 8:27 AM) (06/14/20 11:13 PM) (06/14/20 8: 52 PM) Dry Weight 71.1 kg (06/14/20 7:21 AM) Weight Obtained Via Bed scale (06/14/20 6:44 AM) Social History Social History Type Response Smoking Status Former smoker; Tobacco user in household: No entered on: 07/07/16 Sex Female
--- OUTSIDE RECORDS SUMMARY | 2022-09-11 22:53 | XMS_ITS | Continuity of Care Document ---
:1960 Author Organization [facility] Address [address] [place] [id number]- Care Team Providers Name Role Phone Burakzoltan Shaneka AMADOR Primary Care Physician Encounter [facility] [place] Date(s): 05/28/20 - 06/27/20 [facility] [address] [place] [address]- [facility] Allergies, Adverse Reactions, Alerts Substance Reaction Severity [...] 01/16/20 9:59:00 EST, Route to Pharmacy Electronically, [facility] #[id number], 158, cm, 01/15/20 20:17:00 EST, Height, 64, kg, 01/11/20 21:31:00 EST, Dry Weight Start Date: 01/16/20 Status: Orderedammonium lactate 12% topical cream See Instructions, Topically 2 times a day to feet, # 140 Gm, 0 Refills, Maintenance, 01/16/20 10:04:00 EST, Cream, [facility] #[id number], Topically 2 times a day to feet, 158, cm, 01/15/20 20:17:00 EST, Height, 64, kg, 01/11/20 21:31:00 EST, Dry... Start Date: 01/16/20 Status: Orderedaspirin 81 mg oral tablet 1 tablet = 81 mg, By Mouth, Daily, # 15 tablet, 1 Refills, Maintenance, 01/16/20 10:00:00 EST, Tablet, [facility] #[id number], 158, cm, 01/15/20 20:17:00 EST, Height, 64, kg, 01/11/20 21:31:00 EST, Dry Weight Start Date: 01/16/20 Stop Date: 03/16/20 Status: Orderedatorvastatin 80 mg oral tablet 1 tablet = 80 mg, By Mouth, Daily, # 15 tablet, 1 Refills, Maintenance, 01/16/20 10:01:00 EST, Tablet, [facility] #[id number], 158, cm, 01/15/20 20:17:00 EST, Height, 64, kg, 01/11/20 21:31:00 EST, Dry Weight Start Date: 01/16/20 Stop Date: 03/16/20 Status: OrderedEffexor XR 150 mg oral capsule, extended release 150 mg, 1, capsule, By Mouth, Daily, # 15 capsule, Refills 1, Tot. Refills 1, Maintenance, 01/16/20 10:04:00 EST, Route to Pharmacy Electronically, [facility] #[id number], 158, cm, 01/15/20 20:17:00 EST, Height, 64, kg, 01/11/20 21:31:00 EST, Dry... Start Date: 01/16/20 Status: Orderedgabapentin 600 mg oral tablet 1 tablet = 600 mg, By Mouth, 3 times a day, # 45 tablet, 1 Refills, Maintenance, 01/16/20 10:01:00 EST, Tablet, [facility] #[id number], 158, cm, 01/15/20 20:17:00 EST, Height, 64, kg, 01/11/20 21:31:00 EST, Dry Weight Start Date: 01/16/20 Status: OrderedLantus Solostar Pen 100 units/mL subcutaneous solution = 50 units, Subcutaneous Injection, Daily in AM, MUST MAKE AND KEEP APPT FOR FURTHER REFILLS OR CALLPCP, , E11.9, # 30 mL, 0 Refills, Maintenance, 05/28/20 14:29:00 EDT, Solution, [facility] #[id number], 158, cm, 01/15/20 20:17:00 ES... Start Date: [...] 1 Refills, Maintenance, 01/16/20 10:03:00 EST, Tablet, [facility] #[id number], 158, cm, 01/15/20 20:17:00 EST, Height, 64, kg, 01/11/20 21:31:00 EST, Dry Weight Start Date: 01/16/20 Status: OrderedNovoLOG FlexPen 100 units/mL injectable solution See Instructions, take 8-18 units of novolog 3 times a day with meals per sliding scale. No more than 54 units a day. E 11.9, # 30 mL, 1 Refills, Maintenance, 01/16/20 10:00:00 EST, [facility] #[id number], 100-149 8 UNITS; 150-199 10 UNITS; 200... Start Date: 01/16/20 Status: Orderedomeprazole 20 mg oral enteric coated capsule 1 capsule = 20 mg, By Mouth, Daily, # 90 capsule, 0 Refills, Maintenance, 06/14/20 11:15:00 EDT, EC Capsule Start Date: 06/14/20 Status: OrderedPen [place], 31 G x 5 mm BD Ultra [...]
--- OUTSIDE RECORDS SUMMARY | 2022-09-11 22:53 | XMS_ITS | Continuity of Care Document ---
:1960 Author Organization [facility] Address [address] [place] [phone]- Care Team Providers Name Role Phone Josephine Shaneka AMADOR Primary Care Physician [place] [id number] Date(s): 12/04/21 - 01/03/22 [facility] [address] [place] [id number] Attending Physician: Santi Mack Admitting Physician: AdmSanti gatica Referring Physician: AdmtrSanti Allergies, Adverse Reactions, Alerts Substance Reaction Severity [...] tablet, 3 Refills, Maintenance, 04/27/21 16:20:00EDT, Tablet, [facility], Partial fill upon patient [...] 03/03/21 11:06:00 EDT, Route to Pharmacy Electronically, [facility], Partial fill upon patient request if the prescription is for a sched... Start Date: 03/03/21 Status: Orderedlisinopril 5 mg oral tablet 5 mg, 1, tablet, By Mouth, Daily, # 90 tablet, Refills 2, Tot. Refills 2, Maintenance, 12/30/21 13:15:00 EST, Route to Pharmacy Electronically, [facility], Partial fill upon patient [...] 0 Refills, Maintenance, 03/03/21 11:06:00 EDT, Tablet, [facility], Partial fill upon patient request [...]
[2022-09-11 23:33] LABS: MANUAL DIFF FLAG NO
[2022-09-11 23:34] LABS: Basophils Percent Auto 0.5 % (0-2); Eosinophils Absolute Auto 0.3 X10*3/uL (0.0-0.4); Eosinophils Percent Auto 3.8 % (0-4); Hematocrit 33.5 % (37.0-47.0); Hemoglobin 10.4 g/dl (12.0-16.0); Imm Gran Abs Auto 0.04 X10*3/uL (0.00-0.03); Imm Gran Pct Auto 0.5 % (0.0-0.4); Lymphocytes Absolute Auto 1.6 X10*3/uL (1.2-4.9); Lymphocytes Percent Auto 17.7 % (20-40); Mean Corpuscular Hemoglobin 30.7 pg (27.0-33.0); Mean Corpuscular Volume 98.8 fL (80.0-98.0); Mean Platelet Volume 10.7 fL (9.4-12.3); Monocytes Absolute Auto 0.7 X10*3/uL (0.1-1.2); Monocytes Percent Auto 8.4 % (2-11); Neutrophils Absolute Auto 6.1 x10*3/uL (2.0-8.3); Neutrophils Percent Auto 69.1 % (45-73); Platelet Count 201 X10*3/uL (160-400); Red Blood Count 3.39 X10*6/uL (4.20-5.50); Red Cell Distribution Width 14.4 % (11.0-16.0); White Blood Count 8.7 X10*3/uL (4.8-10.8)
[2022-09-11 23:49] LABS: COVID-19 Test Negative (Negative)
[2022-09-11 23:56] LABS: Troponin-I High Sensitivity 19.3 ng/L (<3.5-17.0)
[2022-09-12 00:10] LABS: Alanine Aminotransferase 28 U/L (0-31); Albumin Level 3.9 g/dL (3.5-5.0); Alkaline Phosphatase 125 U/L (39-117); Anion Gap 19 (12-20); Aspartate Amino Transferase 21 U/L (5-31); Bilirubin Total 0.4 mg/dL (0.0-1.0); Blood Urea Nitrogen 73 mg/dL (9-16); Carbon Dioxide 26 mmol/L (22-29); Chloride 102 mmol/L (96-108); Creatinine Clr Calc Pharmacy 16.7; Estimated Glomerular Filt Rate 12; Glucose Random 155 mg/dL (60-115); Potassium 6.9 mmol/L (3.3-5.1); Sodium 140 mmol/L (135-145); Total Protein 7.4 g/dL (6.5-8.0)
[2022-09-12 00:31] VITALS: PULSE 69; RESP 16; O2SAT 99
[2022-09-12] MEDS: Albuterol/Iprat 2.5/0.5MG 3 ML AMPUL.NEB INHALE (00:31)
[2022-09-12] MEDS: Insulin Regular, Human 100 UNIT/ML 3 ML VIAL 10 UNIT IVPUSH (01:21)
[2022-09-12] MEDS: Sodium Bicarbonate 8.4% 50 MEQ/50 ML SYRINGE IVPUSH (01:21)
[2022-09-12] MEDS: Dextrose 50 % 25 GM/50 ML SYRINGE IVPUSH (01:21)
[2022-09-12] MEDS: Sodium Zirconium Cyclosilicate 10 GM POWD.PACK PO (01:22)
[2022-09-12] MEDS: 0.9 % Sodium Chloride 500 ML 999 ML IV (01:39)
[2022-09-12 02:45] VITALS: BP 104/47; PULSE 67; RESP 14; TEMP 36.4; O2SAT 94
--- NOTE | 2022-09-12 04:07 | PC.NURSE ---
Pt's blood pressure has been soft. Prior to scheduled admin of furosemide it was 93/47. Spoke with Dr. Salmon and confirmed to hold meds until after fluids had been given to determine if BP came up.
--- NOTE | 2022-09-12 04:08 | PC.NURSE ---
Pt. sleeping in bed, respirations are even and unlabored. No apparent distress noted.
[2022-09-12] MEDS: Furosemide 40 MG/4 ML VIAL IVPUSH (04:16)
[2022-09-12 04:23] VITALS: BP 110/46; PULSE 64; RESP 10; O2SAT 98
--- NOTE | 2022-09-12 04:26 | PC.NURSE ---
Pt's BP up to 110 systolic after fluids. Furosemide given.
[2022-09-12 05:35] LABS: Anion Gap 16 (12-20); Blood Urea Nitrogen 74 mg/dL (9-16); Calcium 8.5 mg/dL (8.4-10.2); Carbon Dioxide 29 mmol/L (22-29); Chloride 104 mmol/L (96-108); Creatinine Clr Calc Pharmacy 18.1; Estimated Glomerular Filt Rate 14; Glucose Random 54 mg/dL (60-115); Potassium 4.8 mmol/L (3.3-5.1); Sodium 144 mmol/L (135-145)
[2022-09-12 06:22] VITALS: BP 125/61; PULSE 69; RESP 13; TEMP 36.6; O2SAT 100
--- NOTE | 2022-09-12 06:58 | P.HPHOSP_ITS ---
History of Present Illness Date of Service: 09/12/22 Chief Complaint: chest pain 62-year-old female with frequent admissions in the past with various medical problems including CAD, CKD, history of C diff colitis, HTN, IBS, GERD, COPD, history of anemia, HLD, diabetes, heart failure with preserved ejection fraction presents to the hospital with complaints of chest pain. Patient reports midsternal tightness in the chest that started today, constant, 9/10, nonradiating, no relieving or exacerbating factors. Patient denies any orthopnea, no PND, no shortness of breath, no lower extremity edema. No abdominal pain, no nausea or vomiting, no diarrhea constipation, Vitals on arrival were reviewed with no significant abnormality, Labs are significant for WBC count of 8.7, hemoglobin of 10.4, hematocrit of 33.5, potassium of 6.9, creatinine of 3.72 with a baseline of around 1.6-2.0, Troponin of 19 with no new EKG changes Chest x-ray shows no acute findings Patient treated with Lokelma, D50, bicarb, albuterol and will be admitted for further monitoring Review of Systems Review of Systems: Yes all other systems are reviewed and are negative [facility] Medical History Acute heart failure with preserved ejection fraction Anemia Anxiety Arthritis Cardiac pacemaker in situ Carpal tunnel syndrome CHF (congestive heart failure) Chronic heart failure with preserved ejection fraction (HFpEF) COPD exacerbation Coronary artery disease CVA (cerebral vascular accident) Diabetes Diabetic gastroparesis Fall Gastritis Gastroparesis Gastroparesis GERD (gastroesophageal reflux disease) Headache Heart failure with preserved ejection fraction HLD (hyperlipidemia) HTN (hypertension) HTN (hypertension) Hypocalcemia Hypoxia IBS (irritable bowel syndrome) Knee pain, left Myocardial infarct Nausea and vomiting Orthostasis Renal failure Suprapatellar effusion of knee T2DM (type 2 diabetes mellitus) UTI (urinary tract infection) Family History Father No problems noted. Mother Diabetes Hypercholesteremia Hypertension Stroke Surgical History H/O Achilles tendon repair History of appendectomy History of bladder surgery History of carpal tunnel release History of total hysterectomy with bilateral salpingo-oophorectomy (BSO) Hx of amputation Hx of CABG (~2019) Hx of cholecystectomy Hx of endoscopy Hx of knee surgery Hx of tonsillectomy Social History Household Members: Family Household Members Other:: Granddaughter Housing: Apartment Do you presently have visiting nurse or other home services: Yes Alcohol intake: unknown Patient Tobacco Use Status: Former Tobacco user Quit Date: 24 years ago Years Smoked: 20 Second Hand Smoke Exposure: No Advance Directives: Yes Advance Directives on File: Yes Advance Directives Date on File: 01/13/22 service: No Current occupational status: disabled Meds Allergies Allergy/AdvReac Type Severity Reaction Status Date / Time tetracycline [Tetracycline] Allergy Mild HIVES, Verified 08/14/22 14:41 anaphylaxis, anaphylaxis Active Medications: Current Medications Acetaminophen (Acetaminophen 325 Mg Tablet) 650 mg PO Q6H PRN PRN Reason: Pain, Mild (Pain Scale 1-3) Docusate Sodium (Docusate Sodium 100 Mg Capsule) 100 mg PO DAILY PRN PRN Reason: Constipation Heparin Sodium (Porcine) (Heparin Sodium,Porcine 5,000 Unit/Ml Vial) 5,000 unit SUBCUT Q12H LAW Ondansetron HCl (Ondansetron Hcl 4 Mg/2 Ml Vial) 4 mg IVPUSH Q8H PRN PRN Reason: Nausea and Vomiting Sodium Chloride (0.9 % Sodium Chloride Flush 3 Ml Syringe) 3 ml IVFLUSH QSHIFT LAW Home Medications Medication Instructions Recorded Confirmed Last Taken Type blood sugar diagnostic (FreeStyle 07/14/22 08/20/22 Unknown History Lite Strips) gabapentin 100 mg capsule 2 cap PO TID 07/14/22 08/20/22 Unknown History insulin aspart U-100 100 unit/mL 8 unit subcut TIDAC 07/14/22 08/20/22 Unknown History (3 mL) subcutaneous pen (Novolog Flexpen U-100 Insulin aspart) insulin degludec 100 unit/mL (3 32 unit subcut DAILY 07/14/22 08/20/22 Unknown History mL) subcutaneous pen (Tresiba FlexTouch U-100 insulin) linagliptin 5 mg tablet (Tradjenta) 1 tab PO DAILY 07/14/22 08/20/22 Unknown History lorazepam 0.5 mg tablet 1 tab PO BID PRN Anxiety 07/14/22 08/20/22 Unknown History melatonin 5 mg tablet 1 tab PO BEDTIME 07/14/22 08/20/22 Unknown History nystatin 100,000 unit/gram topical 1 applic topical BID-TID 07/14/22 08/20/22 Unknown History powder (Nystop) sodium zirconium cyclosilicate 5 1 ea PO Q48H 07/14/22 08/20/22 Unknown History gram oral powder packet (Lokelma) trazodone 50 mg tablet 0.5 tab PO BEDTIME PRN Insomnia 07/14/22 08/20/22 Unknown History allopurinol 100 mg tablet 100 mg PO DAILY 08/20/22 08/20/22 Unknown History aspirin 81 mg tablet,delayed 81 mg PO DAILY 08/20/22 08/20/22 Unknown History release atorvastatin 80 mg tablet 80 mg PO BEDTIME 08/20/22 08/20/22 Unknown History cetirizine 10 mg tablet 10 mg PO DAILY 08/20/22 08/20/22 Unknown History cholecalciferol (vitamin D3) 25 25 mcg PO DAILY 08/20/22 08/20/22 Unknown History mcg (1,000 unit) capsule clopidogrel 75 mg tablet 75 mg PO DAILY 08/20/22 08/20/22 Unknown History ferrous sulfate 325 mg (65 mg 325 mg PO DAILY 08/20/22 08/20/22 Unknown History iron) tablet (FeroSul) furosemide 40 mg tablet 40 mg PO DAILY 08/20/22 08/20/22 Unknown History hydralazine 25 mg tablet 25 mg PO BEDTIME PRN 08/20/22 08/20/22 Unknown History isosorbide mononitrate 30 mg 30 mg PO DAILY 08/20/22 08/20/22 Unknown History tablet,extended release 24 hr lisinopril 5 mg tablet 5 mg PO BEDTIME 08/20/22 08/20/22 Unknown History metoclopramide HCl 5 mg tablet 5 mg PO TID 08/20/22 08/20/22 Unknown History metoprolol succinate 25 mg 25 mg PO BID 08/20/22 08/20/22 Unknown History tablet,extended release 24 hr pantoprazole 40 mg tablet,delayed 40 mg PO BID 08/20/22 08/20/22 Unknown History release tamsulosin 0.4 mg capsule 0.4 mg PO DAILY 08/20/22 08/20/22 Unknown History Physical Exam Vital Signs and Narrative: Vital Signs: Last Vital Signs Temp 97.9 F 09/12/22 06:22 Pulse 69 09/12/22 06:22 Resp 13 09/12/22 06:22 BP 125/61 09/12/22 06:22 Pulse Ox 100 09/12/22 06:22 O2 Del Method 09/12/22 06:22 O2 Flow Rate 2 09/12/22 06:22 BMI result Body Mass Index 29.8 Const: General: cooperative and no acute distress Orientation/consciousness: patient oriented x3 Eyes: General: appearance normal, both eyes and all related structures Resp: Effort & Inspection: normal respiratory effort Auscultation: clear to auscultation bilaterally Cardio: Rate: regular rate Rhythm: regular rhythm GI: Palpation (GI): Soft to palpation Auscultation: normal bowel sounds Skin: General skin exam: no rashes or lesions noted Neuro: General: patient oriented x3 Cognition (Neuro): normal cognition Extrem: General: Yes normal to inspection and Yes no pedal edema Results Labs CBC and Chem 7: 09/11/22 23:25 09/12/22 04:45 Labs: Laboratory Results - last 24 hr 09/11/22 09/11/22 09/11/22 23:25 23:25 23:25 MCV 98.8 H MCH 30.7 MCHC 31.0 RDW 14.4 Plt Count 201 MPV 10.7 Immature Gran % (Auto) 0.5 H Neut % (Auto) 69.1 Lymph % (Auto) 17.7 L Sawyer % (Auto) 8.4 Eos % (Auto) 3.8 Baso % (Auto) 0.5 Lymph # (Auto) 1.6 Sawyer # (Auto) 0.7 Eos # (Auto) 0.3 Baso # (Auto) 0.0 Abs Immat Gran (auto) 0.04 H Absolute Neuts (auto) 6.1 Absolute Nucleated RBC 0.000 Nucleated RBC % (auto) 0.0 Anion Gap 19 Estim Creat Clear Calc 16.7 Estimated GFR 12 Random Glucose 155 H Calcium 9.0 D Total Bilirubin 0.4 AST 21 ALT 28 Alkaline Phosphatase 125 H D Troponin I High Sens 19.3 H D Total Protein 7.4 Albumin 3.9 COVID-19 ([facility]) COVID-19 Clin Com 09/11/22 09/12/22 23:25 04:45 MCV MCH MCHC RDW Plt Count MPV Immature Gran % (Auto) Neut % (Auto) Lymph % (Auto) Sawyer % (Auto) Eos % (Auto) Baso % (Auto) Lymph # (Auto) Sawyer # (Auto) Eos # (Auto) Baso # (Auto) Abs Immat Gran (auto) Absolute Neuts (auto) Absolute Nucleated RBC Nucleated RBC % (auto) Anion Gap 16 Estim Creat Clear Calc 18.1 Estimated GFR 14 Random Glucose 54 L* Calcium 8.5 Total Bilirubin AST ALT Alkaline Phosphatase Troponin I High Sens Total Protein Albumin COVID-19 ([facility]) Negative COVID-19 Clin Com See Note Imaging Radiologist's Impressions: Impressions Chest X-Ray 09/11/22 23:05 IMPRESSION: No acute findings Assessment and Plan (1) Acute hyperkalemia: Status: Acute (2) Acute kidney injury superimposed on CKD: Status: Acute (3) Chest pain: Status: Acute Plan 62-year-old female with extensive past medical history presents to the hospital with complaints of chest pain # chest pain - troponin of 19, repeat pending - no EKG changes suggestive of ACS - will follow troponin - admit to telemetry - continue aspirin, Plavix and metoprolol # acute hyperkalemia - resolve - likely secondary to ISA on CKD - follow BMP # ISA and CKD - unclear etiology at this time - possibly prerenal - denies any urinary symptoms - slightly improved with IV fluid - continue fluids - follow BMP - UA pending # diabetes - continue home insulin - will add low-dose sliding so - diabetic diet # hypertension - stable - hold lisinopril in the setting of ISA - continue hydralazine # CHF - not in exacerbation - hold furosemide in the setting of ISA - monitor volume status - resume once creatinine back to baseline 2-3 DVT prophylaxis: Heparin subQ Quality Stroke Does the patient have a stroke diagnosis?: No VTE Prior VTE?: No VTE Risk Level:: Medical - moderate - high VTE Device Contraindication: Treatment Not Indicated VTE Drug Contraindication: N/A - Med Ordered
[2022-09-12 07:41] LABS: Glucose, Whole Blood 112 mg/dL (60-115)
[2022-09-12 07:48] LABS: MANUAL DIFF FLAG NO
--- NOTE | 2022-09-12 07:49 | PHA.MEDREC ---
Pharmacy Consult ? Medication Reconciliation RN has completed the medication reconciliation.Pharmacist reviewed.
[2022-09-12 07:50] LABS: Basophils Absolute Auto 0.1 X10*3/uL (0.0-0.2); Basophils Percent Auto 0.6 % (0-2); Eosinophils Absolute Auto 0.5 X10*3/uL (0.0-0.4); Eosinophils Percent Auto 5.3 % (0-4); Hematocrit 33.4 % (37.0-47.0); Hemoglobin 10.6 g/dl (12.0-16.0); Imm Gran Abs Auto 0.04 X10*3/uL (0.00-0.03); Imm Gran Pct Auto 0.5 % (0.0-0.4); Lymphocytes Absolute Auto 1.5 X10*3/uL (1.2-4.9); Lymphocytes Percent Auto 17.3 % (20-40); Mean Corpuscular HGB Conc 31.7 g/dl (31.0-35.0); Mean Corpuscular Hemoglobin 31.4 pg (27.0-33.0); Mean Corpuscular Volume 98.8 fL (80.0-98.0); Mean Platelet Volume 10.7 fL (9.4-12.3); Monocytes Absolute Auto 0.8 X10*3/uL (0.1-1.2); Monocytes Percent Auto 8.9 % (2-11); Neutrophils Percent Auto 67.4 % (45-73); Platelet Count 182 X10*3/uL (160-400); Red Blood Count 3.38 X10*6/uL (4.20-5.50); Red Cell Distribution Width 14.3 % (11.0-16.0); White Blood Count 8.8 X10*3/uL (4.8-10.8)
[2022-09-12] MEDS: Lactated Ringers 1,000 ML 100 ML IVCONT (08:03)
[2022-09-12 08:20] LABS: Anion Gap 18 (12-20); Blood Urea Nitrogen 74 mg/dL (9-16); Calcium 8.7 mg/dL (8.4-10.2); Carbon Dioxide 25 mmol/L (22-29); Chloride 102 mmol/L (96-108); Creatinine Clr Calc Pharmacy 18.6; Estimated Glomerular Filt Rate 14; Glucose Random 124 mg/dL (60-115); Potassium 5.3 mmol/L (3.3-5.1); Sodium 140 mmol/L (135-145)
[2022-09-12] MEDS: Heparin Sodium,Porcine 5,000 UNIT/ML VIAL 5000 UNIT SUBCUT ×2 (08:23→17:08)
--- NOTE | 2022-09-12 08:30 | PC.NURSE ---
report to overflow unit
[2022-09-12 08:40] LABS: B Type Natriuretic Peptide 189 pg/mL (<100); Troponin-I High Sensitivity 15.7 ng/L (<3.5-17.0)
[2022-09-12 10:25] VITALS: BP 154/60; PULSE 82; RESP 15; TEMP 36.5; O2SAT 97
--- NOTE | 2022-09-12 10:42 | PM.EVENT ---
Event Note Date of Service: 09/12/22 Event Note: Day hospitalist update S: chest pain improved, worse with palpation c/o occasional diarrhea. on vancomycin taper for recurrent Cdiff O: Temperature 97.7 F 09/12/22 10:25 Pulse Rate 82 09/12/22 10:25 Respiratory Rate 15 09/12/22 10:25 Blood Pressure 154/60 H 09/12/22 10:25 Pulse Oximetry 97 09/12/22 10:25 Oxygen Delivery Method 09/12/22 10:25 Oxygen Flow Rate 2 09/12/22 06:22 Gen: in no acute distress HEENT: sclera anicteric, moist mucus membranes Neck: supple Lungs: clear to auscultation bilaterally Heart: regular rate and rhythm, no murmurs Abd: soft, non-tender, non-distended Ext: no edema Skin: warm/well-perfused Neuro: alert and oriented x3, no focal findings Psych: appropriate affect Labs- K 5.4, SCr 3.72-> 3.33, hs-Tn-I 19.3->15.7 A/P: hospital day#1 62yo F with CAD, CKD4, recurrent Cdiff colitis, HTN, IBS, GERD, COPD, anemia HLD, DM2, HFpEF presenting with atypical chest pain, found to have ISA/hyperK # hyperK - treated with Lokelma, insulin D50, bicarb, and albuterol; give another dose of Lokelma; hold lisinopril # ISA/CKD4 - isotonic fluid resuscitation, avoid nephrotoxins, hold lisinopril + furosemide, consult Nephrology # atypical chest pain - Hs-Tn-I indetermiate/flat, likely due to ISA/CKD4 # diarrhea - recheck Cdiff PCR; currently on vancomycin 125 mg tiw # CAD - continue DAPT + metoprolol # HTN # HFpEF - continue hydralazine + Imdur, hold lisinopril + furosemide # DM2 - correction-dose lispro, hold long-acting insulin given hypoglycemia [which was due to IV insulin + renal failure] # VTE ppx: UFH In my clinical judgment, the patient requires continued hospitalization for the following reasons: renal failure, hyperK
[2022-09-12] MEDS: Aspirin Enteric Coated 81 MG TABLET.DR PO (10:43)
[2022-09-12] MEDS: Tamsulosin HCL 0.4 MG CAPSULE PO (10:43)
[2022-09-12] MEDS: Metoprolol Succinate ER 25 MG TAB.ER.24H PO ×2 (10:43→21:40)
[2022-09-12] MEDS: Loratadine 10 MG TABLET PO (10:43)
[2022-09-12] MEDS: Ferrous Sulfate 324 MG TABLET.DR PO (10:44)
[2022-09-12] MEDS: Cholecalciferol (Vitamin D3) 25 MCG TABLET PO (10:44)
[2022-09-12] MEDS: Gabapentin 100 MG CAPSULE 200 MG PO ×3 (10:44→21:41)
[2022-09-12] MEDS: Clopidogrel Bisulfate 75 MG TABLET PO (10:44)
[2022-09-12] MEDS: Metoclopramide HCl 5 MG TABLET PO ×3 (10:44→21:41)
[2022-09-12] MEDS: Isosorbide Mononitrate 30 MG TAB.ER.24H PO (10:44)
[2022-09-12] MEDS: allopurinoL 100 MG TABLET PO (10:44)
[2022-09-12] MEDS: Sodium Zirconium Cyclosilicate 5 GM POWD.PACK PO (10:47)
[2022-09-12] MEDS: Nystatin Powder 15 GM BOTTLE 1 APPL TOPICAL (10:50)
[2022-09-12 11:13] LABS: Glucose, Whole Blood 155 mg/dL (60-115)
[2022-09-12 13:23] LABS: Glucose, Whole Blood 164 mg/dL (60-115)
[2022-09-12] MEDS: Insulin Lispro 100 UNIT/ML 3 ML VIAL SUBCUT ×2 (13:26→21:41)
[2022-09-12 13:36] VITALS: BP 171/76; PULSE 77; RESP 13; TEMP 36.2; O2SAT 97
--- NOTE | 2022-09-12 15:27 | PM.EVENT ---
Event Note Date of Service: 09/12/22 Event Note: PT seen and examined Full note dictated ISA CKD 3/4 Hyperkalemia Changed IVF from LR to D5 NS Agree with holding Lasix Off TAMEKA Lokelma Q 48 hrs Check Renal USG Low K diet F/u Labs in Am Thx Dr. Alvarado
[2022-09-12] MEDS: Dextrose 5 % and 0.9 % NaCl 1,000 ML 80 ML IVCONT (17:08)
[2022-09-12] MEDS: 0.9 % Sodium Chloride Flush 3 ML SYRINGE IVFLUSH ×2 (17:08→23:44)
[2022-09-12 17:29] LABS: Appearance Urine Cloudy; Color Urine Yellow; Glucose Urine UA Negative (Negative); Leukocyte Esterase Urine Moderate (2+) (Negative); Nitrite Urine Negative (Negative); Specific Gravity - Urine 1.015 (1.005-1.025); UMIC TRIGGER UA YES; Urine Blood Large (3+) (Negative); Urine Ketones Negative (Negative); Urine Protein 30 (1+) mg/dL (Neg-Trace)
[2022-09-12 17:34] LABS: Bacteria Urine 4+ (None Seen); Hyaline Casts Urine 0-2 /LPF (0-2); RBC Urine >20 /HPF (0-2); Squamous Epithelial Cell Urine 0-2 /HPF (0-2)
[2022-09-12 18:04] LABS: Creatinine Urine 49.97 mg/dL; Total Protein Urine Random 25 mg/dL (<12)
[2022-09-12 18:38] LABS: Glucose, Whole Blood 137 mg/dL (60-115)
--- NOTE | 2022-09-12 19:19 | PC.NURSE ---
Report given to oncoming AYUSH Medel at this time.
[2022-09-12 21:40] LABS: Glucose, Whole Blood 214 mg/dL (60-115)
[2022-09-12] MEDS: Atorvastatin Calcium 80 MG TABLET PO (21:40)
[2022-09-12] MEDS: Melatonin 3 MG TABLET 6 MG PO (21:41)
[2022-09-13] VITALS: BP 165/70; PULSE 75; RESP 16; TEMP 36.6; O2SAT 98
--- NOTE | 2022-09-13 02:40 | CONS_ITS ---
DATE OF SERVICE: REASON FOR CONSULTATION: Consult requested by the medical team to evaluate and help in management of patient with renal insufficiency and hyperkalemia. HISTORY OF PRESENT ILLNESS: Patient is a 62-year-old female followed up by my associate, Dr. Khan in his office with past medical history of coronary artery disease, history of C diff colitis, hypertension, chronic kidney disease, hyperlipidemia, who presented to the hospital with complaints of chest pain. Apparently, patient has mid sternal tightness, which started yesterday. The patient did not have any aggravating or relieving factors. There was no orthopnea, PND, shortness of breath. No leg edema, abdomen pain, nausea, vomiting, diarrhea. In the ER, the patient was hemodynamically stable. Lab work showed patient's potassium level of 6.9 with a creatinine of 3.72 with a baseline creatinine ranging around 1.6 to 2.0. There were no EKG changes. Chest x-ray was negative. The patient was treated with Lokelma, D50, sodium bicarb, albuterol with improvement of potassium level. Apparently, she was on Lokelma at home every other day, which she was religiously using. She has been taking food substances high in potassium. At the present time, she is resting in the bed and is feeling better. REVIEW OF SYSTEMS: As noted above. Other systems reviewed negative. PAST MEDICAL HISTORY: History of CHF with preserved ejection fraction, history of anemia, anxiety, history of pacemaker in place, carpal tunnel syndrome, COPD, CVA, coronary artery disease, diabetes type 2 with gastroparesis, falls, hyperlipidemia, hypertension, hypocalcemia, irritable bowel syndrome, history of MN, orthostasis, history of UTI. FAMILY HISTORY: Include father who was due to old age. Mother had diabetes, hypercholesterolemia, hypertension, and stroke. PAST SURGICAL HISTORY: Achilles tendon repair, appendectomy, bladder surgery, carpal tunnel release, history of hysterectomy with bilateral salpingo-oophorectomy, amputation, CABG, cholecystectomy, knee surgery, and tonsillectomy. PERSONAL AND SOCIAL HISTORY: Patient does not drink alcohol. Former smoker. Does not use drug. ALLERGIES: PATIENT HAS ALLERGIES TO TETRACYCLINE. MEDICATIONS: Home medications were reviewed in detail and she is on gabapentin, insulin, Lokelma 2 times a week 5 g, allopurinol, atorvastatin, Plavix, ferrous sulfate, furosemide 40 mg daily, hydralazine 25 mg at night as needed, isosorbide mononitrate, lisinopril, metoclopramide, metoprolol, Protonix, and Flomax. PHYSICAL EXAMINATION: GENERAL: Patient is resting in the bed. Awake, alert, oriented x3. VITAL SIGNS: Blood pressure 125/61, pulse 69, afebrile. HEENT: Shows pupils equal bilaterally to light. No jugular venous distention is noted. Neck is supple. No thyromegaly is noted. Oral mucosa moist. There is no scleral icterus or conjunctival congestion. CARDIOVASCULAR: S1, S2 without rub or murmur. RESPIRATORY: Air entry decreased in the bases. No crepitation or rhonchi is noted. ABDOMEN: Soft, nontender. No guarding or rigidity. Bowel sounds normal. EXTREMITIES: Showed no edema. There is no peripheral cyanosis or clubbing. NEURO: Essentially nonfocal. LABORATORY DATA: Done today. WBCs 8.8, hemoglobin 10.6, hematocrit 33.4, platelets were 182. Sodium 140, potassium 5.3, chloride 101, CO2 25, BUN of 74, creatinine 3.33 with a peak creatinine of 3.72. BNP 189. IMPRESSION: 1. 62-year-old female with acute kidney injury. Acute kidney injury in this patient is likely secondary to prerenal etiology. Patient was given intravenous fluid with some improvement in the renal function. I do not have urinalysis come on the possibility of acute glomerulonephritis/interstitial disease and we need to rule out obstruction in this patient. The patient was on lisinopril and a small dose of diuretic Lasix in combination. 2. CKD stage 3/4 at baseline in the setting of longstanding diabetes and hypertension likely due to diabetic/hypertensive renal disease followed by Dr. Khan. 3. Acute hyperkalemia due to acute kidney injury, chronic kidney disease without any EKG changes, resolved. Patient was also on TAMEKA inhibitor, lisinopril, which could have contributed to hyperkalemia. She does have history of hyperkalemia at baseline, on Lokelma. 4. Chest pain, which is being worked up by the medical team. 5. Type 2 diabetes mellitus. 6. Hypertension. RECOMMENDATION: At this juncture, I recommend checking spot urine for electrolytes, protein, and creatinine. We will also do a full urinalysis with microscopy. I agree with holding off on Lasix and an TAMEKA inhibitor, lisinopril. I also agree with gentle hydration and medical management for hyperkalemia. Patient is on LR, which has potassium and I have taken liberty to discontinue this and start her on normal saline. I recommend continuing Lokelma q.48 hour and patient gets discharged. We will hold off on TAMEKA inhibitor on this patient. She needs education regarding low-potassium diet. Thank you for allowing me to participate in medical management of the patient. MD KENDY Cullen/KAROLYN / [phone]
[2022-09-13] MEDS: Dextrose 5 % and 0.9 % NaCl 1,000 ML 80 ML IVCONT (04:17)
[2022-09-13 06:00] VITALS: BP 140/72; PULSE 72; RESP 14; TEMP 36.7; O2SAT 98
[2022-09-13] MEDS: Heparin Sodium,Porcine 5,000 UNIT/ML VIAL 5000 UNIT SUBCUT ×2 (06:26→17:29)
--- NOTE | 2022-09-13 06:41 | PC.NURSE ---
C/O PAIN TO LEFT AC IV SITE...UNABLE TO RESTART NEW IV ACCESS...ER [employer] GRADER UPDATED..FOR DIGESTER COOK TO ATTEMPT IV ACCESS
[2022-09-13 08:08] LABS: Glucose, Whole Blood 143 mg/dL (60-115)
[2022-09-13] MEDS: Fluticasone/Vilanterol 100/25 BLST.W.DEV 1 PUFF INHALE (08:08)
[2022-09-13 08:10] VITALS: PULSE 86; RESP 16; O2SAT 94
[2022-09-13] MEDS: Loratadine 10 MG TABLET PO (09:41)
[2022-09-13] MEDS: Cholecalciferol (Vitamin D3) 25 MCG TABLET PO (09:41)
[2022-09-13] MEDS: Clopidogrel Bisulfate 75 MG TABLET PO (09:41)
[2022-09-13] MEDS: Tamsulosin HCL 0.4 MG CAPSULE PO (09:41)
[2022-09-13] MEDS: Gabapentin 100 MG CAPSULE 200 MG PO ×3 (09:41→21:57)
[2022-09-13] MEDS: Aspirin Enteric Coated 81 MG TABLET.DR PO (09:41)
[2022-09-13] MEDS: Metoprolol Succinate ER 25 MG TAB.ER.24H PO ×2 (09:41→21:57)
[2022-09-13] MEDS: allopurinoL 100 MG TABLET PO (09:41)
[2022-09-13] MEDS: Metoclopramide HCl 5 MG TABLET PO ×3 (09:41→21:57)
[2022-09-13] MEDS: Ferrous Sulfate 324 MG TABLET.DR PO (09:41)
[2022-09-13] MEDS: Isosorbide Mononitrate 30 MG TAB.ER.24H PO (09:41)
[2022-09-13] MEDS: 0.9 % Sodium Chloride Flush 3 ML SYRINGE IVFLUSH (09:42)
--- NOTE | 2022-09-13 10:42 | MHC.CM.PN ---
IMM 09/13/22 FEMALE 62 DX CDIFF She lives with her granddaughter. Vaccinated x3. HCP on file She receives [facility] thru [facility]. She receives Home care services from [facility]. They provide BID medication management. DP home with resumption of services. Family will provide transportation.
[2022-09-13 12:10] LABS: Glucose, Whole Blood 232 mg/dL (60-115)
--- NOTE | 2022-09-13 12:24 | HO.PM.IMPN ---
Subjective Subjective Date of Service: 09/13/22 Interval History: No acute issues overnight. No further chest pain Review of Systems Denies chest pain Denies nausea vomiting diarrhea Denies shortness of breath Denies fever chills Physical Exam Vital Signs: Vital Signs: Last Vital Signs Temp 98.0 F 09/13/22 06:00 Pulse 86 09/13/22 08:10 Resp 16 09/13/22 08:10 BP 140/72 H 09/13/22 06:00 Pulse Ox 98 09/13/22 06:00 O2 Del Method 09/13/22 06:00 O2 Flow Rate 2 09/12/22 06:22 BMI result Body Mass Index 29.8 Const: Other: No acute distress Resp: Other: Clear to auscultation bilaterally no rales rhonchi or wheezes Cardio: Other: No S4; positive S1-S2; no S3 murmurs rubs or gallops GI: Other: Soft nontender nondistended normoactive bowel sounds Extrem: Other: No edema bilaterally Objective Data Active Medications Acetaminophen (Acetaminophen 325 Mg Tablet) 650 mg PO Q6H PRN PRN Reason: Pain, Mild (Pain Scale 1-3) Allopurinol (Allopurinol 100 Mg Tablet) 100 mg PO DAILY FORMERLY [facility], [facility] Last Admin: 09/13/22 09:41 Dose: 100 mg Documented By: RENO Aspirin (Aspirin Enteric Coated 81 Mg Tablet.) 81 mg PO DAILY FOR[facility]LY [facility], [facility]1983 Last Admin: 09/13/22 09:41 Dose: 81 mg Documented By: RENO Atorvastatin Calcium (Atorvastatin Calcium 80 Mg Tablet) 80 mg PO BEDTIME FOR[facility]LY [facility], [facility]1983 Last Admin: 09/12/22 21:40 Dose: 80 mg Documented By: KRISTY Clopidogrel Bisulfate (Clopidogrel Bisulfate 75 Mg Tablet) 75 mg PO DAILY [facility], [facility]1983 Last Admin: 09/13/22 09:41 Dose: 75 mg Documented By: RENO Dextrose (Dextrose 50 % 25 Gm/50 Ml Syringe) 25 gm IVPUSH Q15M PRN; Protocol PRN Reason: per Hypoglycemia Standing Ord. Docusate Sodium (Docusate Sodium 100 Mg Capsule) 100 mg PO DAILY PRN PRN Reason: Constipation Ferrous Sulfate (Ferrous Sulfate 324 Mg Tablet.) 324 mg PO DAILY [facility], [facility] Last Admin: 09/13/22 09:41 Dose: 324 mg Documented By: RENO Fluticasone/Vilanterol (Fluticasone/Vilanterol 100/25 Blst.W.Dev) 1 puff INHALE DAILY [facility], [facility]–1983 Last Admin: 09/13/22 08:08 Dose: 1 puff Documented By: LAURI Gabapentin (Gabapentin 100 Mg Capsule) 200 mg PO TID [facility], [facility] Last Admin: 09/13/22 09:41 Dose: 200 mg Documented By: RENO Glucose (Glucose Gel 15 Gm Gel..Gram.) 15 gm PO Q15M PRN; Protocol PRN Reason: per Hypoglycemia Standing Ord. Heparin Sodium (Porcine) (Heparin Sodium,Porcine 5,000 Unit/Ml Vial) 5,000 unit SUBCUT Q12H [facility], [facility] Last Admin: 09/13/22 06:26 Dose: 5,000 unit Documented By: MIREILLE Hydralazine HCl (Hydralazine Hcl 25 Mg Tablet) 25 mg PO BEDTIME PRN; Protocol PRN Reason: Blood Pressure Dextrose/Sodium Chloride (D5ns) 1,000 mls @ 80 mls/hr IVCONT .[id number] [facility], [facility] Last Admin: 09/13/22 04:17 Dose: 80 mls/hr Documented By: MIREILLE Insulin Human Lispro (Insulin Lispro 100 Unit/Ml 3 Ml Vial) 0 unit SUBCUT QIDACHS [facility], [facility]; Protocol Last Admin: 09/13/22 08:40 Dose: Not Given Documented By: RENO Non-Admin Reason: No Insulin Coverage Isosorbide Mononitrate (Isosorbide Mononitrate 30 Mg Tab.Er.24h) 30 mg PO DAILY [facility], [facility]; Protocol Last Admin: 09/13/22 09:41 Dose: 30 mg Documented By: RENO Loratadine (Loratadine 10 Mg Tablet) 10 mg PO DAILY [facility], [facility]1983 Last Admin: 09/13/22 09:41 Dose: 10 mg Documented By: RENO Lorazepam (Lorazepam 0.5 Mg Tablet) 0.5 mg PO BID PRN PRN Reason: Anxiety Melatonin (Melatonin 3 Mg Tablet) 6 mg PO BEDTIME [facility], [facility] Last Admin: 09/12/22 21:41 Dose: 6 mg Documented By: KRISTY Metoclopramide HCl (Metoclopramide Hcl 5 Mg Tablet) 5 mg PO TID [facility], [facility] Last Admin: 09/13/22 09:41 Dose: 5 mg Documented By: RENO Metoprolol Succinate (Metoprolol Succinate Er 25 Mg Tab.Er.24h) 25 mg PO BID [facility], [facility]; Protocol Last Admin: 09/13/22 09:41 Dose: 25 mg Documented By: RENO Nitroglycerin (Nitroglycerin 0.4 Mg Tab.Subl) 0.4 mg SUBLINGUAL Q5M PRN PRN Reason: angina Nystatin (Nystatin Powder 15 Gm Bottle) 1 appl TOPICAL BID [facility], [facility]; Protocol Last Admin: 09/13/22 09:42 Dose: Not Given Documented By: RENO Non-Admin Reason: not needed Ondansetron HCl (Ondansetron Hcl 4 Mg/2 Ml Vial) 4 mg IVPUSH Q8H PRN PRN Reason: Nausea and Vomiting Pharmacy Consult (Consult Rx Perform Med Rec) 1 each MISCELLANE ONCE PRN PRN Reason: Consult order Sodium Chloride (0.9 % Sodium Chloride Flush 3 Ml Syringe) 3 ml IVFLUSH QSHIFT [facility], [facility] Last Admin: 09/13/22 09:42 Dose: 3 ml Documented By: RENO Sodium Zirconium Cyclosilicate (Sodium Zirconium Cyclosilicate 5 Gm Powd.Pack) 5 gm PO Q48H [facility], [facility]1983 Last Admin: 09/12/22 10:47 Dose: 5 gm Documented By: RENO Tamsulosin HCl (Tamsulosin Hcl 0.4 Mg Capsule) 0.4 mg PO DAILY [facility], [facility] Last Admin: 09/13/22 09:41 Dose: 0.4 mg Documented By: RENO Trazodone HCl (Trazodone Hcl 25 Mg Halftab) 25 mg PO BEDTIME PRN PRN Reason: Insomnia Vancomycin HCl (Vancomycin Hcl 125 Mg Capsule) 125 mg PO MOWEFR [facility], [facility] Vitamin D (Cholecalciferol (Vitamin D3) 25 Mcg Tablet) 25 mcg PO DAILY [facility] Last Admin: 09/13/22 09:41 Dose: 25 mcg Documented By: RENO Labs CBC & Chem 7: 09/12/22 07:41 09/12/22 07:41 Labs: Laboratory Results - last 24 hr 09/12/22 09/12/22 09/12/22 13:14 17:03 17:03 POC Glucose 164 H Urine Color Yellow Urine Appearance Cloudy Urine pH 7.0 Ur Specific [place] 1.015 Urine Protein 30 (1+) H Urine Glucose (UA) Negative Urine Ketones Negative Urine Blood Large (3+) H Urine Nitrite Negative Ur Leukocyte Esterase Moderate (2+) H Urine RBC >20 H Urine WBC 11-20 H Ur Squamous Epith Cells 0-2 Urine Bacteria 4+ Hyaline Casts 0-2 U Random Total Protein 25 H Ur Random Sodium 120.0 Urine Creatinine 49.97 09/12/22 09/12/22 09/13/22 18:14 21:25 07:50 POC Glucose 137 H 214 H 143 H Urine Color Urine Appearance Urine pH Ur Specific [place] Urine Protein Urine Glucose (UA) Urine Ketones Urine Blood Urine Nitrite Ur Leukocyte Esterase Urine RBC Urine WBC Ur Squamous Epith Cells Urine Bacteria Hyaline Casts U Random Total Protein Ur Random Sodium Urine Creatinine 09/13/22 11:59 POC Glucose 232 H Urine Color Urine Appearance Urine pH Ur Specific [place] Urine Protein Urine Glucose (UA) Urine Ketones Urine Blood Urine Nitrite Ur Leukocyte Esterase Urine RBC Urine WBC Ur Squamous Epith Cells Urine Bacteria Hyaline Casts U Random Total Protein Ur Random Sodium Urine Creatinine Assessment and Plan (1) Atypical chest pain: Status: Acute (2) Acute kidney injury superimposed on CKD: Status: Acute (3) Acute hyperkalemia: Status: Acute Plan 62-year-old female with extensive past medical history presents to the hospital with complaints of chest pain 1. Atypical chest pain - follow troponin - admit to telemetry - continue aspirin, Plavix and metoprolol 2.Acute hyperkalemia - Lokelma 5 mg Q 48 hours -follow renals/divalents 3.ISA and CKD -responding to therapies. -continue D5 half-normal saline -follow renals/divalents 3.Diabetes -acceptable control on current therapies - continue home insulin - lispro correctional scale 4.Hypertension - stable - hold lisinopril in the setting of ISA - continue hydralazine Requires ongoing hospitalization for IV therapy to resolve ISA and treat hyperkalemia Quality Stroke Does the patient have a stroke diagnosis?: No VTE Prior VTE?: No VTE Risk Level:: Medical - moderate - high VTE Device Contraindication: Treatment Not Indicated VTE Drug Contraindication: N/A - Med Ordered
[2022-09-13] MEDS: Insulin Lispro 100 UNIT/ML 3 ML VIAL SUBCUT ×3 (12:38→21:58)
--- NOTE | 2022-09-13 13:13 | P.PNNP_ITS ---
Subjective Subjective Date of Service: 09/13/22 Interval history: No acute issues overnight. No further chest pain Physical Exam Vital Signs: Vital Signs: Last Vital Signs Temp 98.0 F 09/13/22 06:00 Pulse 86 09/13/22 08:10 Resp 16 09/13/22 08:10 BP 140/72 H 09/13/22 06:00 Pulse Ox 98 09/13/22 06:00 O2 Del Method 09/13/22 06:00 O2 Flow Rate 2 09/12/22 06:22 BMI result Body Mass Index 29.8 Const: Other: No acute distress Resp: Other: Clear to auscultation bilaterally no rales rhonchi or wheezes Cardio: Other: No S4; positive S1-S2; no S3 murmurs rubs or gallops GI: Other: Soft nontender nondistended normoactive bowel sounds Extrem: Other: No edema bilaterally Objective Data Labs CBC & Chem 7: 09/12/22 07:41 09/12/22 07:41 Labs: Laboratory Results - last 24 hr 09/12/22 09/12/22 09/12/22 13:14 17:03 17:03 POC Glucose 164 H Urine Color Yellow Urine Appearance Cloudy Urine pH 7.0 Ur Specific [place] 1.015 Urine Protein 30 (1+) H Urine Glucose (UA) Negative Urine Ketones Negative Urine Blood Large (3+) H Urine Nitrite Negative Ur Leukocyte Esterase Moderate (2+) H Urine RBC >20 H Urine WBC 11-20 H Ur Squamous Epith Cells 0-2 Urine Bacteria 4+ Hyaline Casts 0-2 U Random Total Protein 25 H Ur Random Sodium 120.0 Urine Creatinine 49.97 09/12/22 09/12/22 09/13/22 18:14 21:25 07:50 POC Glucose 137 H 214 H 143 H Urine Color Urine Appearance Urine pH Ur Specific [place] Urine Protein Urine Glucose (UA) Urine Ketones Urine Blood Urine Nitrite Ur Leukocyte Esterase Urine RBC Urine WBC Ur Squamous Epith Cells Urine Bacteria Hyaline Casts U Random Total Protein Ur Random Sodium Urine Creatinine 09/13/22 11:59 POC Glucose 232 H Urine Color Urine Appearance Urine pH Ur Specific [place] Urine Protein Urine Glucose (UA) Urine Ketones Urine Blood Urine Nitrite Ur Leukocyte Esterase Urine RBC Urine WBC Ur Squamous Epith Cells Urine Bacteria Hyaline Casts U Random Total Protein Ur Random Sodium Urine Creatinine Procedures Date of Service Date of Service: 09/13/22 Assessment & Plan Assessment and plan (1) Acute kidney injury superimposed on CKD: Status: Acute (2) Acute hyperkalemia: Status: Acute Plan IMPRESSION:? 1. 62-year-old female with acute kidney injury.? Acute kidney injury in this patient is likely secondary to prerenal etiology.? Patient was given intravenous fluid with some improvement in the renal function.? NO new labs Pt has hematuria and proteinuria - Needs w/u based on renal function The patient was on lisinopril and a small dose of diuretic Lasix in combination. 2. CKD stage 3/4 at baseline in the setting of longstanding diabetes and hypertension likely due to diabetic/hypertensive renal disease followed by Dr. Khan. 3. Acute hyperkalemia due to acute kidney injury, chronic kidney disease without any EKG changes, resolved.? Patient was also on TAMEKA inhibitor, lisinopril, which could have contributed to hyperkalemia.? She does have history of hyperkalemia at baseline, on Lokelma. 4. Chest pain, which is being worked up by the medical team. 5. Type 2 diabetes mellitus. 6. Hypertension. ? RECOMMENDATION:? D/w Dr. Williamson - Check labs today - Lytes/ Renal function Continue holding off on Lasix and an TAMEKA inhibitor, lisinopril.? Contnue D5 NS for now Pt on Isolation for Cl Diff I recommend continuing Lokelma q.48 hour and patient gets discharged.? She needs education regarding low-potassium diet. ?2 K diet Thank you for allowing me to participate in medical management of the patient. ? ? ? Meet Alvarado MD Time Spent With Patient Time: Total time spent is greater than 50% in coordination of care (as documented) at patient's floor/unit and/or counseling patient: Progress Note: Quality Stroke Does the patient have a stroke diagnosis?: No
[2022-09-13 15:58] LABS: Alanine Aminotransferase 22 U/L (0-31); Albumin Level 3.4 g/dL (3.5-5.0); Alkaline Phosphatase 109 U/L (39-117); Anion Gap 16 (12-20); Aspartate Amino Transferase 21 U/L (5-31); Bilirubin Total 0.3 mg/dL (0.0-1.0); Blood Urea Nitrogen 62 mg/dL (9-16); Calcium 8.6 mg/dL (8.4-10.2); Carbon Dioxide 23 mmol/L (22-29); Chloride 106 mmol/L (96-108); Estimated Glomerular Filt Rate 26; Glucose Random 225 mg/dL (60-115); Potassium 5.8 mmol/L (3.3-5.1); Sodium 139 mmol/L (135-145); Total Protein 6.4 g/dL (6.5-8.0)
--- NOTE | 2022-09-13 16:42 | PC.NURSE ---
Isolation precautions maintained. Multiple RNs attempted to obtain IV access on pt but were unable, was informed, per md pt does not need iv access, fluids can be paused. safety and fall precautions maintained. call richard within reach. md informed of elevated K. pt incont. of urine and stool. purewick in place.
[2022-09-13 17:16] LABS: Glucose, Whole Blood 182 mg/dL (60-115)
--- NOTE | 2022-09-13 19:51 | PC.NURSE ---
Pt incontinent of urine and stool. Cleaned up and new bed linens placed @194, savita canister emptied 200 of yellow urine
[2022-09-13 20:23] LABS: Glucose, Whole Blood 253 mg/dL (60-115)
[2022-09-13 21:42] VITALS: BP 158/71; PULSE 87; RESP 16; O2SAT 92
[2022-09-13] MEDS: Melatonin 3 MG TABLET 6 MG PO (21:57)
[2022-09-13] MEDS: Atorvastatin Calcium 80 MG TABLET PO (21:58)
[2022-09-14 04:35] VITALS: BP 154/77; PULSE 82; RESP 14; TEMP 36.7; O2SAT 97
[2022-09-14 04:45] LABS: MANUAL DIFF FLAG NO
[2022-09-14 04:46] LABS: Basophils Percent Auto 0.4 % (0-2); Eosinophils Absolute Auto 0.4 X10*3/uL (0.0-0.4); Hematocrit 31.9 % (37.0-47.0); Hemoglobin 10.1 g/dl (12.0-16.0); Imm Gran Abs Auto 0.03 X10*3/uL (0.00-0.03); Imm Gran Pct Auto 0.3 % (0.0-0.4); Lymphocytes Absolute Auto 1.5 X10*3/uL (1.2-4.9); Lymphocytes Percent Auto 16.3 % (20-40); Mean Corpuscular HGB Conc 31.7 g/dl (31.0-35.0); Mean Corpuscular Volume 97.9 fL (80.0-98.0); Mean Platelet Volume 10.5 fL (9.4-12.3); Monocytes Absolute Auto 0.9 X10*3/uL (0.1-1.2); Neutrophils Absolute Auto 6.3 x10*3/uL (2.0-8.3); Platelet Count 184 X10*3/uL (160-400); Red Blood Count 3.26 X10*6/uL (4.20-5.50); Red Cell Distribution Width 13.9 % (11.0-16.0); White Blood Count 9.1 X10*3/uL (4.8-10.8)
[2022-09-14 05:05] LABS: Alanine Aminotransferase 24 U/L (0-31); Albumin Level 3.8 g/dL (3.5-5.0); Alkaline Phosphatase 123 U/L (39-117); Anion Gap 14 (12-20); Aspartate Amino Transferase 23 U/L (5-31); Bilirubin Total 0.4 mg/dL (0.0-1.0); Blood Urea Nitrogen 58 mg/dL (9-16); Calcium 9.3 mg/dL (8.4-10.2); Carbon Dioxide 27 mmol/L (22-29); Chloride 104 mmol/L (96-108); Creatinine Clr Calc Pharmacy 34.9; Estimated Glomerular Filt Rate 29; Glucose Fasting 160 mg/dL (60-99); Potassium 5.4 mmol/L (3.3-5.1); Sodium 140 mmol/L (135-145); Total Protein 7.2 g/dL (6.5-8.0)
[2022-09-14] MEDS: Heparin Sodium,Porcine 5,000 UNIT/ML VIAL 5000 UNIT SUBCUT (05:13)
[2022-09-14 07:34] LABS: Glucose, Whole Blood 148 mg/dL (60-115)
[2022-09-14 07:44] VITALS: BP 153/79; PULSE 77; RESP 19; O2SAT 98
[2022-09-14] MEDS: Fluticasone/Vilanterol 100/25 BLST.W.DEV 1 PUFF INHALE (07:52)
[2022-09-14 07:53] VITALS: PULSE 79; RESP 18; O2SAT 95
[2022-09-14] MEDS: Ferrous Sulfate 324 MG TABLET.DR PO (08:22)
[2022-09-14] MEDS: Cholecalciferol (Vitamin D3) 25 MCG TABLET PO (08:22)
[2022-09-14] MEDS: Clopidogrel Bisulfate 75 MG TABLET PO (08:22)
[2022-09-14] MEDS: Gabapentin 100 MG CAPSULE 200 MG PO (08:22)
[2022-09-14] MEDS: Isosorbide Mononitrate 30 MG TAB.ER.24H PO (08:22)
[2022-09-14] MEDS: Aspirin Enteric Coated 81 MG TABLET.DR PO (08:22)
[2022-09-14] MEDS: Metoprolol Succinate ER 25 MG TAB.ER.24H PO (08:22)
[2022-09-14] MEDS: allopurinoL 100 MG TABLET PO (08:23)
[2022-09-14] MEDS: Tamsulosin HCL 0.4 MG CAPSULE PO (08:23)
[2022-09-14] MEDS: Loratadine 10 MG TABLET PO (08:23)
[2022-09-14] MEDS: Metoclopramide HCl 5 MG TABLET PO (08:23)
[2022-09-14] MEDS: Sodium Zirconium Cyclosilicate 5 GM POWD.PACK PO (08:23)
[2022-09-14] MEDS: vancomycin HCL 125 MG CAPSULE PO (09:45)
[2022-09-14] MEDS: Nystatin Powder 15 GM BOTTLE 1 APPL TOPICAL (09:46)
--- NOTE | 2022-09-14 09:46 | MHC.CDI.CONC ---
CDI Concurrent Query Documentation Clarification: PHYSICIAN'S DOCUMENTATION REQUEST Date of Query: 09/14/22 0946 Patient Name: Lida Dia Admit Date: 09/12/22 Dear Doctor, A review of the medical record indicates additional documentation may be needed. Please review below and update the documentation accordingly. Clinical Indicators: The following clinical information was noted in the record: Risk Factors/Clinical Indicators/Treatments PN 09/12 - ISA/CKD 4 H&P: CHF, hold Furosemide in the setting of ISA Resume once cr back to baseline 2-3. Nephrology note 09/13 - CKD 3/4 Please clarify which of the following accurately represents the patient's renal status: ISA on CKD Stage 2 ISA on CKD Stage 3 ISA on CKD Stage 4 Other (please specify) Unable to determine Criteria for ISA* Stages of Chronic Kidney Disease* 1. Increase in serum creatinine by ? 0.3 mg/dL Level Description GFR (?26.5 micromol/L) within 48 hours, or G1 Normal or High > 90 2. Increase in serum creatinine to ?1.5 times baseline, G2 Mildly decreased 60 ? 89 which is known or presumed to have occurred within 7 days, or G3a Mildly to moderately decreased 45 ? 59 3. Urine volume <0.5 mL/kg/hour for six hours G3b Moderately to severely decreased 30 - 44 G4 Severely decreased 15 ? 29 G5 Kidney failure < 15 *Source: Kidney Disease: Improving Global Outcomes (KDIGO) 2012 Use of terms such as suspected, likely, concern for, or probable (associated with a specific diagnosis that is being evaluated, monitored, or treated as if it exists) are acceptable and can be coded in the inpatient setting, when documented at the time of discharge. Thank you, Shara Perez [facility], CDIS Extension: [phone] Please use your independent medical judgment in providing your response. THIS QUERY IS PART OF THE PERMANENT MEDICAL RECORD Provider Response: Other Other Diagnosis: Acute on chronic CKD 3
--- NOTE | 2022-09-14 10:29 | PC.NURSE ---
Cleaned patient, changed bedding.
--- NOTE | 2022-09-14 10:51 | P.PNNP_ITS ---
Subjective Subjective Date of Service: 09/14/22 Interval history: Events noted. All recent data reviewed. D/W Dr Williamson Physical Exam Vital Signs: Vital Signs: Last Vital Signs Temp 98.0 F 09/14/22 04:35 Pulse 79 09/14/22 07:53 Resp 18 09/14/22 07:53 BP 153/79 H 09/14/22 07:44 Pulse Ox 98 09/14/22 07:44 O2 Del Method 09/14/22 07:44 O2 Flow Rate 2 09/12/22 06:22 BMI result Body Mass Index 29.8 Const: General: no acute distress Eyes: EOM: EOMs intact bilaterally Resp: Auscultation: diminished lung sounds Cardio: Rate: regular rate GI: Palpation (GI): Soft to palpation Neuro: General: moves all extremities Objective Data Labs CBC & Chem 7: 09/14/22 04:14 09/14/22 04:14 Labs: Laboratory Results - last 24 hr 09/13/22 09/13/22 09/13/22 11:59 15:18 15:18 WBC RBC Hgb Hct MCV MCH MCHC RDW Plt Count MPV Immature Gran % (Auto) Neut % (Auto) Lymph % (Auto) [place] % (Auto) Eos % (Auto) Baso % (Auto) Lymph # (Auto) [place] # (Auto) Eos # (Auto) Baso # (Auto) Abs Immat Gran (auto) Absolute Neuts (auto) Absolute Nucleated RBC Nucleated RBC % (auto) Sodium Cancelled 139 Potassium Cancelled 5.8 H Chloride Cancelled 106 Carbon Dioxide Cancelled 23 Anion Gap Cancelled 16 BUN Cancelled 62 H Creatinine Cancelled 1.94 H Estim Creat Clear Calc Cancelled 32.0 Estimated GFR Cancelled 26 POC Glucose 232 H Random Glucose Cancelled 225 H Fasting Glucose Calcium Cancelled 8.6 Total Bilirubin 0.3 AST 21 ALT 22 Alkaline Phosphatase 109 Total Protein 6.4 L Albumin 3.4 L 09/13/22 09/13/22 09/14/22 17:09 20:17 04:14 WBC 9.1 RBC 3.26 L Hgb 10.1 L Hct 31.9 L MCV 97.9 MCH 31.0 MCHC 31.7 RDW 13.9 Plt Count 184 MPV 10.5 Immature Gran % (Auto) 0.3 Neut % (Auto) 69.0 Lymph % (Auto) 16.3 L [place] % (Auto) 10.0 Eos % (Auto) 4.0 Baso % (Auto) 0.4 Lymph # (Auto) 1.5 [place] # (Auto) 0.9 Eos # (Auto) 0.4 Baso # (Auto) 0.0 Abs Immat Gran (auto) 0.03 Absolute Neuts (auto) 6.3 Absolute Nucleated RBC 0.000 Nucleated RBC % (auto) 0.0 Sodium Potassium Chloride Carbon Dioxide Anion Gap BUN Creatinine Estim Creat Clear Calc Estimated GFR POC Glucose 182 H 253 H Random Glucose Fasting Glucose Calcium Total Bilirubin AST ALT Alkaline Phosphatase Total Protein Albumin 09/14/22 09/14/22 04:14 07:06 WBC RBC Hgb Hct MCV MCH MCHC RDW Plt Count MPV Immature Gran % (Auto) Neut % (Auto) Lymph % (Auto) [place] % (Auto) Eos % (Auto) Baso % (Auto) Lymph # (Auto) [place] # (Auto) Eos # (Auto) Baso # (Auto) Abs Immat Gran (auto) Absolute Neuts (auto) Absolute Nucleated RBC Nucleated RBC % (auto) Sodium 140 Potassium 5.4 H Chloride 104 Carbon Dioxide 27 Anion Gap 14 BUN 58 H Creatinine 1.78 H Estim Creat Clear Calc 34.9 Estimated GFR 29 POC Glucose 148 H Random Glucose Fasting Glucose 160 H Calcium 9.3 D Total Bilirubin 0.4 AST 23 ALT 24 Alkaline Phosphatase 123 H Total Protein 7.2 Albumin 3.8 Procedures Date of Service Date of Service: 09/14/22 Assessment & Plan Assessment and plan (1) Acute kidney injury superimposed on CKD: Status: Acute Assessment and Plan: ISA due to tubular injury CKD stage 3b /4 at baseline in the setting of longstanding diabetes and hypertension likely due to diabetic/hypertensive renal disease Hyperkalemia . Hypertension. ? Continue? holding off on Lasix/ lisinopril.? Low K diet; Lokelma q.48 hours Renal functions/ K better C/W rest of current management Time Spent With Patient Time: Total time spent is greater than 50% in coordination of care (as documented) at patient's floor/unit and/or counseling patient: Progress Note: Quality Stroke Does the patient have a stroke diagnosis?: No
[2022-09-14] MEDS: LORazepam 0.5 MG TABLET PO (11:13)
[2022-09-14 11:54] VITALS: BP 154/78; PULSE 74; RESP 14; O2SAT 98
--- NOTE | 2022-09-14 12:45 | P.DS_ITS ---
DS: Providers Provider Date of Service: 09/14/22 Date of admission: 09/12/22 05:22 Date of discharge: 09/14/22 Primary care physician: Unknown Physician Consults: 09/12/22 07:49 Consult to Nephrology Routine Consulting Provider: [facility] maurilio Tinoco Reason for consultation: raquel/ckd DS: Diagnosis Discharge Diagnosis (1) Acute kidney injury superimposed on CKD: Status: Acute DS: Summary Hospital Course Hospital Course: 62-year-old female with frequent admissions in the past with various medical problems including CAD, CKD, history of C diff colitis, HTN, IBS, GERD, COPD, history of anemia, HLD, diabetes, heart failure with preserved ejection fraction presents to the hospital with complaints of chest pain.? Patient reports midsternal tightness in the chest that started today, constant, 08/01, nonradiating, no relieving or exacerbating factors.? Patient denies any orthopnea, no PND, no shortness of breath, no lower extremity edema.? No abdominal pain, no nausea or vomiting, no diarrhea constipation, Vitals on arrival were reviewed with no significant abnormality, Labs are significant for WBC count of 8.7, hemoglobin of 10.4, hematocrit of 33.5, potassium of 6.9, creatinine of 3.72 with a baseline of around 1.6-2.0, Troponin of 19 with no new EKG changes Chest x-ray shows no acute findings Patient treated with Lokelma, D50, bicarb, albuterol and will be admitted for further monitoring Hospital course Patient admitted to [facility]; given Lokelma with good results. Lisinopril and Lasix were held. Cardiac workup essentially unremarkable; thought to be atypical chest pain. Seen in consultation by Nephrology who agreed with plan will follow-up as an outpatient. She will be discharged on Lokelma every 48 hours and will follow-up with Renal in 2 weeks. Lisinopril and Lasix will be held until seen by Renal as an outpatient Time Spent with Patient Time attestation: Total time spent providing and/or coordinating discharge services: Discharge coordination time: Greater than 30 minutes Quality: Safe Use of Opioids Does Pt have an Active Cancer Diagnosis on the Problem List?: No Quality: Stroke Does the patient have a stroke diagnosis?: No Physical Exam Vital Signs: Vital Signs: Last Vital Signs Temp 98.0 F 09/14/22 04:35 Pulse 74 09/14/22 11:54 Resp 14 09/14/22 11:54 BP 154/78 H 09/14/22 11:54 Pulse Ox 98 09/14/22 11:54 O2 Del Method 09/14/22 11:54 O2 Flow Rate 2 09/12/22 06:22 BMI result Body Mass Index 29.8 Const: Other: No acute distress Resp: Other: Clear to auscultation bilaterally no rales rhonchi or wheezes Cardio: Other: No S4; positive S1-S2; no S3 murmurs rubs or gallops GI: Other: Soft nontender nondistended normoactive bowel sounds Extrem: Other: No edema bilaterally DS: Data Data Completed and Pending Completed studies during hospitalization [Text1]: Procedures Insertion of Infusion Device into Right Basilic Vein, Percutaneous Approach (10/31/20) Transfusion of Nonautologous Red Blood Cells into Peripheral Vein, Percutaneous Approach (10/31/20) Labs on day of discharge: Laboratory Results - last 24 hr 09/13/22 09/13/22 09/13/22 15:18 15:18 17:09 WBC RBC Hgb Hct MCV MCH MCHC RDW Plt Count MPV Immature Gran % (Auto) Neut % (Auto) Lymph % (Auto) [place] % (Auto) Eos % (Auto) Baso % (Auto) Lymph # (Auto) [place] # (Auto) Eos # (Auto) Baso # (Auto) Abs Immat Gran (auto) Absolute Neuts (auto) Absolute Nucleated RBC Nucleated RBC % (auto) Sodium Cancelled 139 Potassium Cancelled 5.8 H Chloride Cancelled 106 Carbon Dioxide Cancelled 23 Anion Gap Cancelled 16 BUN Cancelled 62 H Creatinine Cancelled 1.94 H Estim Creat Clear Calc Cancelled 32.0 Estimated GFR Cancelled 26 POC Glucose 182 H Random Glucose Cancelled 225 H Fasting Glucose Calcium Cancelled 8.6 Total Bilirubin 0.3 AST 21 ALT 22 Alkaline Phosphatase 109 Total Protein 6.4 L Albumin 3.4 L 09/13/22 09/14/22 09/14/22 20:17 04:14 04:14 WBC 9.1 RBC 3.26 L Hgb 10.1 L Hct 31.9 L MCV 97.9 MCH 31.0 MCHC 31.7 RDW 13.9 Plt Count 184 MPV 10.5 Immature Gran % (Auto) 0.3 Neut % (Auto) 69.0 Lymph % (Auto) 16.3 L [place] % (Auto) 10.0 Eos % (Auto) 4.0 Baso % (Auto) 0.4 Lymph # (Auto) 1.5 [place] # (Auto) 0.9 Eos # (Auto) 0.4 Baso # (Auto) 0.0 Abs Immat Gran (auto) 0.03 Absolute Neuts (auto) 6.3 Absolute Nucleated RBC 0.000 Nucleated RBC % (auto) 0.0 Sodium 140 Potassium 5.4 H Chloride 104 Carbon Dioxide 27 Anion Gap 14 BUN 58 H Creatinine 1.78 H Estim Creat Clear Calc 34.9 Estimated GFR 29 POC Glucose 253 H Random Glucose Fasting Glucose 160 H Calcium 9.3 D Total Bilirubin 0.4 AST 23 ALT 24 Alkaline Phosphatase 123 H Total Protein 7.2 Albumin 3.8 09/14/22 07:06 WBC RBC Hgb Hct MCV MCH MCHC RDW Plt Count MPV Immature Gran % (Auto) Neut % (Auto) Lymph % (Auto) [place] % (Auto) Eos % (Auto) Baso % (Auto) Lymph # (Auto) [place] # (Auto) Eos # (Auto) Baso # (Auto) Abs Immat Gran (auto) Absolute Neuts (auto) Absolute Nucleated RBC Nucleated RBC % (auto) Sodium Potassium Chloride Carbon Dioxide Anion Gap BUN Creatinine Estim Creat Clear Calc Estimated GFR POC Glucose 148 H Random Glucose Fasting Glucose Calcium Total Bilirubin AST ALT Alkaline Phosphatase Total Protein Albumin Discharge Plan Discharge Anticipated Discharge Date/Time: 09/14/22 12:47 Patient Disposition: Home, Self-Care Discharge Diagnosis: Atypical chest pain Referrals: Physician,Unknown J [Primary Care Provider] - 1 Week Discharge Medications: Continued trazodone 50 mg tablet 0.5 tab PO BEDTIME PRN (Reason: Insomnia) (DME) FreeStyle Lite Strips Strip MISCELLANEOUS lorazepam 0.5 mg tablet 1 tab PO BID PRN (Reason: Anxiety) gabapentin 100 mg capsule 2 cap PO TID insulin aspart U-100 [Novolog Flexpen U-100 Insulin] 100 unit/mL (3 mL) insulin pen 8 unit subcut TIDAC melatonin 5 mg tablet 1 tab PO BEDTIME Tradjenta 5 mg tablet 1 tab PO DAILY insulin degludec [Tresiba FlexTouch U-100] 100 unit/mL (3 mL) insulin pen 32 unit subcut DAILY Lokelma 5 gram powder in packet 1 ea PO Q48H vancomycin 125 mg capsule 125 mg PO QID Qty: 70 0RF Rx Instructions: 125 mg q.i.d. for 1 week 125 mg t.i.d. for 1 week 125 mg b.i.d. for 1 week 125 mg daily for 1 week and then 125 mg , , indefinitely after that allopurinol 100 mg tablet 100 mg PO DAILY aspirin 81 mg tablet,delayed release (DR/EC) 81 mg PO DAILY atorvastatin 80 mg tablet 80 mg PO BEDTIME cetirizine 10 mg tablet 10 mg PO DAILY cholecalciferol (vitamin D3) 25 mcg (1,000 unit) capsule 25 mcg PO DAILY clopidogrel 75 mg tablet 75 mg PO DAILY ferrous sulfate [FeroSul] 325 mg (65 mg iron) tablet 325 mg PO DAILY hydralazine 25 mg tablet 25 mg PO BEDTIME PRN (Reason: Blood Pressure) isosorbide mononitrate 30 mg tablet extended release 24 hr 30 mg PO DAILY metoclopramide HCl 5 mg tablet 5 mg PO TID metoprolol succinate 25 mg tablet extended release 24 hr 25 mg PO BID pantoprazole 40 mg tablet,delayed release (DR/EC) 40 mg PO BID tamsulosin 0.4 mg capsule 0.4 mg PO DAILY ammonium lactate 12 % lotion 1 applic topical BID PRN (Reason: Dry Skin) clotrimazole-betamethasone 1-0.05 % cream 1 appl topical BID nitroglycerin 0.4 mg tablet, sublingual 0.4 mg sublingual Q5M nystatin 100,000 unit/gram powder 1 applic topical BID fluticasone furoate-vilanterol [Breo Ellipta] 100-25 mcg/dose blister with device 1 puff inhalation DAILY Discontinued furosemide 40 mg tablet 40 mg PO DAILY lisinopril 5 mg tablet 5 mg PO BEDTIME meloxicam 7.5 mg tablet 1 tab PO DAILY Discharge Orders: Discharge Order (Routine); Ordered 09/14/22 Ordered By: Andrew Williamson Diet: Low-potassium diet Activity on Discharge: As tolerated Stand Alone Forms: Patient Portal Discharge page Care Plan Goals: Do not take lisinopril or Lasix until you are seen by Dr. Goldberg (kidney doctor). Make an appointment for 2 weeks with him Health Concerns: Continue all other medicines as before hospital; follow-up with PCP 3 weeks Plan of Treatment: Drink plenty of fluids Assessment: See discharge summary
--- NOTE | 2022-09-14 12:59 | MHC.CM.PN ---
Patient has been medically cleared for dc to home today, self care. Last IMM addressed on 09/13/2022.
--- NOTE | 2022-09-14 13:09 | MHC.CM.PN ---
Addendum entered by Estela Gutierrez 09/14/22 13:23: PER NOTES, PT WAS ALSO ACTIVE WITH [facility] NOTIFIED OF DC VIA [employer] DC SUMMARY FORWARED Original Note: PT TO DC HOME TODAY WITH [facility] BLS TRANSPORT SCHEDULED FOR 1430 HOURS VIA [facility]
[2022-09-14 13:20] LABS: Glucose, Whole Blood 204 mg/dL (60-115)
== END 2022-09-14 15:38 | disposition home or self-care (01) | DRG 683 ==
LOC: HO.ED 09-12 01:43 → HO.EDOVER 09-12 05:31
PROVIDERS: Family Medicine; Internal Medicine Nephrology; Admitting Provider Internal Medicine; Emergency Provider Emergency Medicine; Visit Provider Hospitalist
DX: N17.9 Acute kidney failure, unspecified (principal); I50.32 Chronic diastolic (congestive) heart failure; E87.5 Hyperkalemia; Z95.0 Presence of cardiac pacemaker; I25.10 Atherosclerotic heart disease of native coronary artery without angina pectoris; K21.9 Gastro-esophageal reflux disease without esophagitis; I25.2 Old myocardial infarction; I13.10 Hypertensive heart and chronic kidney disease without heart failure, with stage 1 through stage 4 chronic kidney disease, or unspecified chronic kidney disease; E11.22 Type 2 diabetes mellitus with diabetic chronic kidney disease; N18.30 Chronic kidney disease, stage 3 unspecified; E78.5 Hyperlipidemia, unspecified; R07.89 Other chest pain; Z20.822 Contact with and (suspected) exposure to COVID-19; Z95.1 Presence of aortocoronary bypass graft; Z87.891 Personal history of nicotine dependence; Z88.1 Allergy status to other antibiotic agents; Z79.4 Long term (current) use of insulin; Z79.02 Long term (current) use of antithrombotics/antiplatelets; Z79.51 Long term (current) use of inhaled steroids; Z79.82 Long term (current) use of aspirin; Z79.899 Other long term (current) drug therapy
CPT/HCPCS: 36415; 71045; 80048; 80053; 81001; 82947; 83880; 84156; 84300; 84484; 85025; 87635; 93005; 94640; 99285; J1940

== ENCOUNTER 2022-09-22 11:00 | Inpatient (IN) | payer OTHER, SELFPAY ==
[2022-09-22] VITALS (7 sets, daily range): BP systolic 122–176; BP diastolic 67–110; PULSE 78–105; RESP 14–20; TEMP 36.8–37.6; O2SAT 94–98; BMI 31.4
--- NOTE | ~2022-09-22 | XR_ITS ---
EXAMINATION: XR CHEST CLINICAL INFORMATION: Shortness of breath, cough. COMPARISON: 09/11/2022 chest radiograph. TECHNIQUE: Frontal view of the chest was obtained. FINDINGS: Subtle asymmetric opacities are seen in the right upper lobe. The left lung is clear. The heart and mediastinal structures are unremarkable. A left sided pacemaker appears in good position. Multilevel sternotomy wires are intact. XR/XR chest 1V IMPRESSION: Subtle opacities in the right upper lobe could represent atelectasis and/or infiltrate.
--- NOTE | 2022-09-22 11:17 | ECG_ITS ---
Test Reason : sob Blood Pressure : / mmHG Vent. Rate : 077 BPM Atrial Rate : 077 BPM P-R Int : 222 ms QRS Dur : 116 ms QT Int : 428 ms P-R-T Axes : 044 098 237 degrees QTc Int : 484 ms Atrial-sensed ventricular-paced rhythm with prolonged AV conduction Nonspecific ST and T wave abnormality Abnormal ECG When compared with ECG of 11-SEP-2022 22:44, Vent. rate has decreased BY 7 BPM T wave inversion no longer evident in Inferior leads Lateral leads Referred By: Tanja Rivas Electronically Signed By:HARITHA BRAVO MD
--- NOTE | 2022-09-22 11:23 | ED.SOB ---
HPI - SOB/Dyspnea General Chief Complaint: Dyspnea Stated Complaint: sob4 Time Seen by Provider: 09/22/22 11:07 Source: patient Mode of arrival: EMS History of Present Illness HPI Narrative: 62-year-old female with history of COPD, diabetes, hypertension presents with 3 days dry cough and increasing shortness of breath without fever, chills, GI or symptoms and patient states that she is not having chest pain when she is not coughing. Related Data Home Medications Medication Instructions Recorded Confirmed blood sugar diagnostic (FreeStyle 07/14/22 09/22/22 Lite Strips) gabapentin 100 mg capsule 2 cap PO TID 07/14/22 09/22/22 insulin aspart U-100 100 unit/mL 8 unit subcut TIDAC 07/14/22 09/22/22 (3 mL) subcutaneous pen (Novolog Flexpen U-100 Insulin aspart) insulin degludec 100 unit/mL (3 32 unit subcut DAILY 07/14/22 09/22/22 mL) subcutaneous pen (Tresiba FlexTouch U-100 insulin) linagliptin 5 mg tablet (Tradjenta) 1 tab PO DAILY 07/14/22 09/22/22 lorazepam 0.5 mg tablet 1 tab PO BID PRN Anxiety 07/14/22 09/22/22 melatonin 5 mg tablet 1 tab PO BEDTIME 07/14/22 09/22/22 sodium zirconium cyclosilicate 5 1 ea PO Q48H 07/14/22 09/22/22 gram oral powder packet (Lokelma) trazodone 50 mg tablet 0.5 tab PO BEDTIME PRN Insomnia 07/14/22 09/22/22 allopurinol 100 mg tablet 100 mg PO DAILY 08/20/22 09/22/22 aspirin 81 mg tablet,delayed 81 mg PO DAILY 08/20/22 09/22/22 release atorvastatin 80 mg tablet 80 mg PO BEDTIME 08/20/22 09/22/22 cetirizine 10 mg tablet 10 mg PO DAILY 08/20/22 09/22/22 cholecalciferol (vitamin D3) 25 25 mcg PO DAILY 08/20/22 09/22/22 mcg (1,000 unit) capsule clopidogrel 75 mg tablet 75 mg PO DAILY 08/20/22 09/22/22 ferrous sulfate 325 mg (65 mg 325 mg PO DAILY 08/20/22 09/22/22 iron) tablet (FeroSul) hydralazine 25 mg tablet 25 mg PO BEDTIME PRN Blood Pressure 08/20/22 09/22/22 isosorbide mononitrate 30 mg 30 mg PO DAILY 08/20/22 09/22/22 tablet,extended release 24 hr metoclopramide HCl 5 mg tablet 5 mg PO TID 08/20/22 09/22/22 pantoprazole 40 mg tablet,delayed 40 mg PO BID 08/20/22 09/22/22 release tamsulosin 0.4 mg capsule 0.4 mg PO DAILY 08/20/22 09/22/22 ammonium lactate 12 % lotion 1 applic topical BID PRN Dry Skin 09/12/22 09/22/22 clotrimazole-betamethasone 1 1 appl topical BID 09/12/22 09/22/22 %-0.05 % topical cream fluticasone furoate 100 1 puff inhalation DAILY 09/12/22 09/22/22 mcg-vilanterol 25 mcg/dose inhalation powder (Breo Ellipta) nitroglycerin 0.4 mg sublingual 0.4 mg sublingual Q5M chest pain 09/12/22 09/22/22 tablet nystatin 100,000 unit/gram topical 1 applic topical BID 09/12/22 09/22/22 powder metoprolol succinate 25 mg 25 mg PO DAILY 09/22/22 09/22/22 tablet,extended release 24 hr Previous Rx's Medication Instructions Recorded vancomycin 125 mg capsule 125 mg PO QID #70 caps 07/16/22 Allergies Allergy/AdvReac Type Severity Reaction Status Date / Time tetracycline [Tetracycline] Allergy Mild HIVES, Verified 08/14/22 14:41 anaphylaxis, anaphylaxis Review of Systems Review of Systems: Pertinent positives and negatives as stated in HPI 10 point review of systems is otherwise negative. [facility] Past Medical History Source: nursing notes reviewed Medical History Acute heart failure with preserved ejection fraction Anemia Anxiety Arthritis Cardiac pacemaker in situ Carpal tunnel syndrome CHF (congestive heart failure) Chronic heart failure with preserved ejection fraction (HFpEF) COPD exacerbation Coronary artery disease CVA (cerebral vascular accident) Diabetes Diabetic gastroparesis Fall Gastritis Gastroparesis Gastroparesis GERD (gastroesophageal reflux disease) Headache Heart failure with preserved ejection fraction HLD (hyperlipidemia) HTN (hypertension) HTN (hypertension) Hypocalcemia Hypoxia IBS (irritable bowel syndrome) Knee pain, left Myocardial infarct Nausea and vomiting Orthostasis Renal failure Suprapatellar effusion of knee T2DM (type 2 diabetes mellitus) UTI (urinary tract infection) Surgical History H/O Achilles tendon repair History of appendectomy History of bladder surgery History of carpal tunnel release History of total hysterectomy with bilateral salpingo-oophorectomy (BSO) Hx of amputation Hx of CABG (~2019) Hx of cholecystectomy Hx of endoscopy Hx of knee surgery Hx of tonsillectomy Family History Family History Father No problems noted. Mother Diabetes Hypercholesteremia Hypertension Stroke Social History Social History Household Members: Family Household Members Other:: Granddaughter Housing: Apartment Do you presently have visiting nurse or other home services: Yes Alcohol intake: former Patient Tobacco Use Status: Former Tobacco user Quit Date: 24 years ago Years Smoked: 20 Second Hand Smoke Exposure: No Advance Directives: Yes Advance Directives on File: Yes Advance Directives Date on File: 01/13/22 service: No Current occupational status: disabled Physical Exam Vital Signs: Vital Signs: Last Vital Signs Temp 99.7 F 09/22/22 11:08 Pulse 88 09/22/22 13:45 Resp 18 09/22/22 13:45 BP 129/90 H 09/22/22 11:08 Pulse Ox 98 09/22/22 11:08 O2 Del Method 09/22/22 11:08 BMI result Body Mass Index 31.4 VITAL SIGNS: Reviewed. GENERAL: Well developed, well nourished, in no acute distress. HEAD: Normocephalic/atraumatic EYES: PERRLA, EOMI EARS: LEFT- Ext canals without abnormality, TMs non-bulging and non-erythematous;RIGHT- Ext canals with significant swelling with debris no erythema NOSE: Nares patent bilateral OROPHARYNX: no oral lesions noted, posterior pharynx clear and non-erythematous without noted tonsillar enlargement/erythema/exudates NECK: Supple, no adenopathy LUNGS: decreased breath sounds, tachypnea is present with mild expiratory wheeze. SpO2<98> without nasal cannula CARDIOVASCULAR: Regular rate and rhythm without noted murmurs, no JVD or lower extremity edema. ABDOMEN: Soft, non-tender, non-distended with bowel sounds. MUSCULOSKELETAL: No tenderness, deformities, or effusions noted on gross inspection. EXTREMITIES: No cyanosis, clubbing or edema. SKIN: Inspection of the skin reveals no rashes NEUROLOGIC: Alert and oriented x 4. Strength and sensation to light touch were grossly intact x 4. Course Course Course Narrative: 1130: 62-year-old female with history and clinical presentation will rule out pneumonia, COPD, cardiac ischemia, viral infection. Review of all investigations consistent with CHF exacerbation with RSV positivity and although noted to have leukocytosis and received antibiotics procalcitonin is noted be 0.04. Patient also received 2 nebulized treatments with steroids initially for initial suspicion for COPD. Patient received Lasix 40 mg and on re-evaluation is no longer tachypneic and breath sounds have improved. I discussed case with the inpatient hospitalist who accepts admission. MDM - SOB/Dyspnea Lab Data Result diagrams: 09/22/22 11:32 09/22/22 12:29 Labs: Lab Results 09/22/22 09/22/22 09/22/22 Range/Units 11:32 11:32 11:32 WBC 13.1 H (4.8-10.8) X10*3/uL RBC 3.10 L (4.20-5.50) X10*6/uL Hgb 9.7 L (12.0-16.0) g/dl Hct 30.8 L (37.0-47.0) % MCV 99.4 H (80.0-98.0) fL MCH 31.3 (27.0-33.0) pg MCHC 31.5 (31.0-35.0) g/dl RDW 13.8 (11.0-16.0) % Plt Count 262 D (160-400) X10*3/uL MPV 10.3 (9.4-12.3) fL Immature Gran % (Auto) 0.3 (0.0-0.4) % Neut % (Auto) 79.9 H (45-73) % Lymph % (Auto) 10.7 L (20-40) % [place] % (Auto) 7.0 (2-11) % Eos % (Auto) 1.9 (0-4) % Baso % (Auto) 0.2 (0-2) % Lymph # (Auto) 1.4 (1.2-4.9) X10*3/uL [place] # (Auto) 0.9 (0.1-1.2) X10*3/uL Eos # (Auto) 0.3 (0.0-0.4) X10*3/uL Baso # (Auto) 0.0 (0.0-0.2) X10*3/uL Abs Immat Gran (auto) 0.04 H (0.00-0.03) X10*3/uL Absolute Neuts (auto) 10.5 H (2.0-8.3) x10*3/uL Absolute Nucleated RBC 0.000 (0.0-0.012) X10*3/uL Nucleated RBC % (auto) 0.0 (0.0-0.2) /100WBC PT (10.0-13.1) SEC INR (0.9-1.1) VBG pH (7.32-7.43) VBG pCO2 mmHg VBG pO2 mmHg VBG HCO3 (22-26) mmol/L VBG O2 Saturation % VBG Base Excess mmol/L Sodium (135-145) mmol/L Potassium (3.3-5.1) mmol/L Chloride (96-108) mmol/L Carbon Dioxide (22-29) mmol/L Anion Gap (12-20) BUN (9-16) mg/dL Creatinine (0.5-1.4) mg/dL Estim Creat Clear Calc Estimated GFR Random Glucose (60-115) mg/dL Lactic Acid 0.8 (0.5-2.0) mmol/L Calcium (8.4-10.2) mg/dL Total Bilirubin (0.0-1.0) mg/dL AST (5-31) U/L ALT (0-31) U/L Alkaline Phosphatase (39-117) U/L Troponin I High Sens (<3.5-17.0) ng/L B-Natriuretic Peptide (<100) pg/mL Total Protein (6.5-8.0) g/dL Albumin (3.5-5.0) g/dL Procalcitonin ng/mL Influenza Type A (PCR) NEGATIVE (Negative) Influenza Type B (PCR) NEGATIVE (Negative) RSV RNA Qual (PCR) POSITIVE A (Negative) SARS-CoV-2 RNA (RT-PCR) NEGATIVE (Negative) 09/22/22 09/22/22 09/22/22 Range/Units 11:32 12:29 12:29 WBC (4.8-10.8) X10*3/uL RBC (4.20-5.50) X10*6/uL Hgb (12.0-16.0) g/dl Hct (37.0-47.0) % MCV (80.0-98.0) fL MCH (27.0-33.0) pg MCHC (31.0-35.0) g/dl RDW (11.0-16.0) % Plt Count (160-400) X10*3/uL MPV (9.4-12.3) fL Immature Gran % (Auto) (0.0-0.4) % Neut % (Auto) (45-73) % Lymph % (Auto) (20-40) % [place] % (Auto) (2-11) % Eos % (Auto) (0-4) % Baso % (Auto) (0-2) % Lymph # (Auto) (1.2-4.9) X10*3/uL [place] # (Auto) (0.1-1.2) X10*3/uL Eos # (Auto) (0.0-0.4) X10*3/uL Baso # (Auto) (0.0-0.2) X10*3/uL Abs Immat Gran (auto) (0.00-0.03) X10*3/uL Absolute Neuts (auto) (2.0-8.3) x10*3/uL Absolute Nucleated RBC (0.0-0.012) X10*3/uL Nucleated RBC % (auto) (0.0-0.2) /100WBC PT 12.1 (10.0-13.1) SEC INR 1.1 (0.9-1.1) VBG pH (7.32-7.43) VBG pCO2 mmHg VBG pO2 mmHg VBG HCO3 (22-26) mmol/L VBG O2 Saturation % VBG Base Excess mmol/L Sodium 142 (135-145) mmol/L Potassium 5.4 H (3.3-5.1) mmol/L Chloride 105 (96-108) mmol/L Carbon Dioxide 24 (22-29) mmol/L Anion Gap 18 (12-20) BUN 38 H (9-16) mg/dL Creatinine 1.67 H (0.5-1.4) mg/dL Estim Creat Clear Calc 31.5 Estimated GFR 31 Random Glucose 149 H (60-115) mg/dL Lactic Acid (0.5-2.0) mmol/L Calcium 8.7 D (8.4-10.2) mg/dL Total Bilirubin 0.2 (0.0-1.0) mg/dL AST 23 (5-31) U/L ALT 18 (0-31) U/L Alkaline Phosphatase 104 (39-117) U/L Troponin I High Sens 44.8 H D (<3.5-17.0) ng/L B-Natriuretic Peptide 901 H (<100) pg/mL Total Protein 7.8 (6.5-8.0) g/dL Albumin 3.8 (3.5-5.0) g/dL Procalcitonin ng/mL Influenza Type A (PCR) (Negative) Influenza Type B (PCR) (Negative) RSV RNA Qual (PCR) (Negative) SARS-CoV-2 RNA (RT-PCR) (Negative) 09/22/22 09/22/22 Range/Units 12:29 12:34 WBC (4.8-10.8) X10*3/uL RBC (4.20-5.50) X10*6/uL Hgb (12.0-16.0) g/dl Hct (37.0-47.0) % MCV (80.0-98.0) fL MCH (27.0-33.0) pg MCHC (31.0-35.0) g/dl RDW (11.0-16.0) % Plt Count (160-400) X10*3/uL MPV (9.4-12.3) fL Immature Gran % (Auto) (0.0-0.4) % Neut % (Auto) (45-73) % Lymph % (Auto) (20-40) % [place] % (Auto) (2-11) % Eos % (Auto) (0-4) % Baso % (Auto) (0-2) % Lymph # (Auto) (1.2-4.9) X10*3/uL [place] # (Auto) (0.1-1.2) X10*3/uL Eos # (Auto) (0.0-0.4) X10*3/uL Baso # (Auto) (0.0-0.2) X10*3/uL Abs Immat Gran (auto) (0.00-0.03) X10*3/uL Absolute Neuts (auto) (2.0-8.3) x10*3/uL Absolute Nucleated RBC (0.0-0.012) X10*3/uL Nucleated RBC % (auto) (0.0-0.2) /100WBC PT (10.0-13.1) SEC INR (0.9-1.1) VBG pH 7.34 (7.32-7.43) VBG pCO2 51 mmHg VBG pO2 34 mmHg VBG HCO3 28 H (22-26) mmol/L VBG O2 Saturation 45.0 % VBG Base Excess 1.7 mmol/L Sodium (135-145) mmol/L Potassium (3.3-5.1) mmol/L Chloride (96-108) mmol/L Carbon Dioxide (22-29) mmol/L Anion Gap (12-20) BUN (9-16) mg/dL Creatinine (0.5-1.4) mg/dL Estim Creat Clear Calc Estimated GFR Random Glucose (60-115) mg/dL Lactic Acid (0.5-2.0) mmol/L Calcium (8.4-10.2) mg/dL Total Bilirubin (0.0-1.0) mg/dL AST (5-31) U/L ALT (0-31) U/L Alkaline Phosphatase (39-117) U/L Troponin I High Sens (<3.5-17.0) ng/L B-Natriuretic Peptide (<100) pg/mL Total Protein (6.5-8.0) g/dL Albumin (3.5-5.0) g/dL Procalcitonin 0.04 ng/mL Influenza Type A (PCR) (Negative) Influenza Type B (PCR) (Negative) RSV RNA Qual (PCR) (Negative) SARS-CoV-2 RNA (RT-PCR) (Negative) ECG Data Attestation: I personally reviewed and interpreted this ECG as follows: Prior ECG tracings: available for review Interpretation: Atrial sensed ventricular paced rhythm, HR- 77, no STEMI, QTC is within normal limits. Critical Care Time Critical Care Time Critical Care Time: Yes Total Critical Care Time: 30 Attestation: I personally attest to this time spent taking care of the patient. Discharge Plan Discharge Clinical Impression: CHF (congestive heart failure), RSV infection, Dyspnea Patient Disposition: Admitted As Inpatient
[2022-09-22] MEDS: Albuterol Sulfate 7.5 MG, Albuterol/Iprat 2.5/0.5MG 3 ML 3 ML INHALE ×2 (11:33→13:43)
[2022-09-22 11:39] LABS: MANUAL DIFF FLAG NO
[2022-09-22 11:42] LABS: Basophils Percent Auto 0.2 % (0-2); Eosinophils Absolute Auto 0.3 X10*3/uL (0.0-0.4); Eosinophils Percent Auto 1.9 % (0-4); Hematocrit 30.8 % (37.0-47.0); Hemoglobin 9.7 g/dl (12.0-16.0); Imm Gran Abs Auto 0.04 X10*3/uL (0.00-0.03); Imm Gran Pct Auto 0.3 % (0.0-0.4); Lymphocytes Absolute Auto 1.4 X10*3/uL (1.2-4.9); Lymphocytes Percent Auto 10.7 % (20-40); Mean Corpuscular HGB Conc 31.5 g/dl (31.0-35.0); Mean Corpuscular Hemoglobin 31.3 pg (27.0-33.0); Mean Corpuscular Volume 99.4 fL (80.0-98.0); Mean Platelet Volume 10.3 fL (9.4-12.3); Monocytes Absolute Auto 0.9 X10*3/uL (0.1-1.2); Neutrophils Absolute Auto 10.5 x10*3/uL (2.0-8.3); Neutrophils Percent Auto 79.9 % (45-73); Platelet Count 262 X10*3/uL (160-400); Red Cell Distribution Width 13.8 % (11.0-16.0); White Blood Count 13.1 X10*3/uL (4.8-10.8)
[2022-09-22] MEDS: Benzonatate 100 MG CAPSULE 200 MG PO (11:42)
--- NOTE | 2022-09-22 11:45 | PC.NURSE ---
PT A&Ox3, C/O SOB for 3 days with a dry nonproductive cough. Sat 02 94% on RA. Placed on 2L NC, IV established. Respiratory therapist at beside.
[2022-09-22 11:56] LABS: Lactic Acid 0.8 mmol/L (0.5-2.0)
[2022-09-22 12:08] LABS: B Type Natriuretic Peptide 901 pg/mL (<100); Troponin-I High Sensitivity 44.8 ng/L (<3.5-17.0)
--- NOTE | 2022-09-22 12:10 | PC.NURSE ---
Lev[place] paused at this time, Dr. Serrano aware.
[2022-09-22] MEDS: cefTRIAXone sodium 1 GM in 0.9 % Sodium Chloride 50 ML IV (12:38)
[2022-09-22 12:39] LABS: VBG Base Excess 1.7 mmol/L; VBG HCO3 28 mmol/L (22-26); VBG pCO2 51 mmHg; VBG pH 7.34 (7.32-7.43); VBG pO2 34 mmHg
[2022-09-22 12:42] LABS: Venous Blood Gas Refer to POC result
[2022-09-22 12:52] LABS: INTERNATIONAL NORM RATIO 1.1 (0.9-1.1); Prothrombin Time 12.1 SEC (10.0-13.1)
[2022-09-22 13:00] LABS: Influenza A PCR NEGATIVE (Negative); Influenza B PCR NEGATIVE (Negative); Resp Syncy Virus RNA Qual PCR POSITIVE (Negative); SARS COV2 PCR INHOUSE NEGATIVE (Negative)
[2022-09-22 13:01] LABS: Alanine Aminotransferase 18 U/L (0-31); Albumin Level 3.8 g/dL (3.5-5.0); Alkaline Phosphatase 104 U/L (39-117); Anion Gap 18 (12-20); Aspartate Amino Transferase 23 U/L (5-31); Bilirubin Total 0.2 mg/dL (0.0-1.0); Blood Urea Nitrogen 38 mg/dL (9-16); Calcium 8.7 mg/dL (8.4-10.2); Carbon Dioxide 24 mmol/L (22-29); Chloride 105 mmol/L (96-108); Creatinine Clr Calc Pharmacy 31.5; Estimated Glomerular Filt Rate 31; Glucose Random 149 mg/dL (60-115); Potassium 5.4 mmol/L (3.3-5.1); Sodium 142 mmol/L (135-145); Total Protein 7.8 g/dL (6.5-8.0)
[2022-09-22] MEDS: Furosemide 40 MG/4 ML VIAL IVPUSH (13:01)
[2022-09-22] MEDS: methylPREDNISolone Sod Succ 125 MG/2 ML VIAL 80 MG IVPUSH (13:01)
[2022-09-22 14:17] LABS: Procalcitonin 0.04 ng/mL
[2022-09-22 14:42] LABS: Troponin-I High Sensitivity 46.3 ng/L (<3.5-17.0)
--- NOTE | 2022-09-22 15:57 | PM.IMHP ---
History of Present Illness Date of Service: 09/22/22 Attending physician on admission: Merrill George Chief Complaint: cough, sob, ear pain 62 year old female with history of ?CAD s/p CABG, CKD, history of C diff colitis, HTN, IBS, GERD, COPD, history of anemia, HLD, diabetes, heart failure with preserved ejection fraction, s/p pacemaker presents to the ED earlier today for evaluation of URI symptoms ongoing for several days. Reports her great granddaughter recently had RSV. Several days ago developed nonproductive couhg, sob, sore throat, and bilateral ear pain L>R as well as pleuritic chest pain. She has noted increased use of rescue inhaler and reports compliance with maintenance inhalers. She uses 2L supplemental O2 for nocturnal hypoxia, but denies any increased need for supplemental O2. Denies fevers, chills, nasal congestion, wheezing, abd pain, nausea, vomiting, diarrhea, constipation, lightheadedness, palpitations, chest pressure, or LE edema. She has been afebrile. No tachycardia, tachypnea, or hypotension. Oximetry 92% on RA, started on 2L supplemental O2 via NC. Leukocytosis 13.1. VBG unremarkable. Potassium 5.4, renal function and electrolytes otherwise stable showing chronic renal insufficiency with creat 1.67, BUN 38. Troponins flat at 44.8 and 46.3. BNP 901, baseline 189. Negative COVID-19 and influenza. Positive RSV. CXR showed RUQ patchy infiltrate. EKG showing atrial sensed ventricular-paced rhythm with prolonged AV conduction and nonspecific ST/T wave abnormality. Pt to be admitted for acute hypoxemic respiratory failure with RSV pneumonia and COPD exacerbation. Review of Systems Review of Systems: General: No fevers, malaise, unintentional weight loss HEENT: +ear pain, +sore throat. No rhinorrhea, sinus pressure Cardiovascular: No chest pain, palpitations, or leg edema Respiratory: +cough, +sob, +pleuritic chest pain. No wheezing GI: No abdominal pain, nausea, vomiting, diarrhea, constipation, melena, hematochezia : No dysuria, hematuturia, increased frequency MSK: No myalgia Neuro: No headaches, weakness, paresthesias Skin: No rashes or lesions [facility] Medical History (Updated 09/22/22 @ 16:17 by WILLIAM Davis) Acute heart failure with preserved ejection fraction Acute kidney injury superimposed on CKD Acute renal failure due to rhabdomyolysis Anemia Anxiety Arthritis C. difficile colitis Cardiac pacemaker in situ Carpal tunnel syndrome Chest pain CHF (congestive heart failure) Chronic heart failure with preserved ejection fraction (HFpEF) COPD exacerbation Coronary artery disease CVA (cerebral vascular accident) Diabetes Diabetic gastroparesis Diarrhea Fall Gastritis Gastroparesis Gastroparesis GERD (gastroesophageal reflux disease) Heart failure with preserved ejection fraction HLD (hyperlipidemia) HTN (hypertension) HTN (hypertension) Hypocalcemia Hypoxia IBS (irritable bowel syndrome) Knee pain, left Myocardial infarct Orthostasis Positive occult stool blood test Renal failure Rhabdomyolysis Suprapatellar effusion of knee T2DM (type 2 diabetes mellitus) UTI (urinary tract infection) Family History Father No problems noted. Mother Diabetes Hypercholesteremia Hypertension Stroke Surgical History H/O Achilles tendon repair History of appendectomy History of bladder surgery History of carpal tunnel release History of total hysterectomy with bilateral salpingo-oophorectomy (BSO) Hx of amputation Hx of CABG (~2019) Hx of cholecystectomy Hx of endoscopy Hx of knee surgery Hx of tonsillectomy Social History Household Members: Family Household Members Other:: Granddaughter Housing: Apartment Do you presently have visiting nurse or other home services: Yes Alcohol intake: former Patient Tobacco Use Status: Former Tobacco user Quit Date: 24 years ago Years Smoked: 20 Smoked in Last 30 Days: No Second Hand Smoke Exposure: No Use of substances other than those prescribed or required for medical reasons: No Advance Directives: Yes Advance Directives on File: Yes Advance Directives Date on File: 01/13/22 Patient : No service: No Current occupational status: disabled Meds Allergies Allergy/AdvReac Type Severity Reaction Status Date / Time tetracycline [Tetracycline] Allergy Mild HIVES, Verified 08/14/22 14:41 anaphylaxis, anaphylaxis Active Medications: Current Medications Acetaminophen (Acetaminophen 325 Mg Tablet) 650 mg PO Q6H PRN PRN Reason: Ear pain, fever Albuterol/Ipratropium (Albuterol/Iprat 2.5/0.5mg 3 Ml Ampul.Neb) 3 ml INHALE RQ4H WHILE AWAKE [facility] Allopurinol (Allopurinol 100 Mg Tablet) 100 mg PO DAILY [facility] Aspirin (Aspirin Enteric Coated 81 Mg Tablet.Dr) 81 mg PO DAILY [facility] Atorvastatin Calcium (Atorvastatin Calcium 80 Mg Tablet) 80 mg PO BEDTIME [facility] Dextrose (Dextrose 50 % 25 Gm/50 Ml Syringe) 25 gm IVPUSH Q15M PRN; Protocol PRN Reason: per Hypoglycemia Standing Ord. Docusate Sodium (Docusate Sodium 100 Mg Capsule) 100 mg PO DAILY PRN PRN Reason: Constipation Fluticasone/Vilanterol (Fluticasone/Vilanterol 100/25 Blst.W.Dev) 1 puff INHALE DAILY [facility] Gabapentin (Gabapentin 100 Mg Capsule) 200 mg PO TID [facility] Glucose (Glucose Gel 15 Gm Gel..Gram.) 15 gm PO Q15M PRN; Protocol PRN Reason: per Hypoglycemia Standing Ord. Guaifenesin (Guaifenesin 200 Mg/10 Ml 10 Ml Liquid) 10 ml PO Q6H PRN PRN Reason: Cough Insulin Human Lispro (Insulin Lispro 100 Unit/Ml 3 Ml Vial) 0 unit SUBCUT QIDACHS [facility]; Protocol Lactic Acid (Ammonium Lactate 12 % Lotion 226 Gm Bottle) 1 appl TOPICAL BID PRN; Protocol PRN Reason: Dry Skin Lorazepam (Lorazepam 0.5 Mg Tablet) 0.5 mg PO BID PRN PRN Reason: Anxiety Methylprednisolone Sodium Succinate (Methylprednisolone Sod Succ 40 Mg/Ml Vial) 40 mg IVPUSH Q12H [facility] Metoprolol Succinate (Metoprolol Succinate Er 25 Mg Tab.Er.24h) 25 mg PO DAILY [facility]; Protocol Non-Formulary Medication (Insulin Degludec [Tresiba Flextouch U-100]) 24 unit SUBCUT DAILY [facility] Non-Formulary Medication (Melatonin) 1 tab PO BEDTIME [facility] Non-Formulary Medication (Pantoprazole) 40 mg PO BID [facility] Nystatin (Nystatin Powder 15 Gm Bottle) 1 appl TOPICAL BID [facility]; Protocol Ondansetron HCl (Ondansetron Hcl 4 Mg/2 Ml Vial) 4 mg IVPUSH Q8H PRN PRN Reason: Nausea and Vomiting Sodium Zirconium Cyclosilicate (Sodium Zirconium Cyclosilicate 5 Gm Powd.Pack) gm PO Q48H [facility] Trazodone HCl (Trazodone Hcl 25 Mg Halftab) 25 mg PO BEDTIME PRN PRN Reason: Insomnia Home Medications Medication Instructions Recorded Confirmed Last Taken Type blood sugar diagnostic (FreeStyle 07/14/22 09/22/22 Unknown History Lite Strips) gabapentin 100 mg capsule 2 cap PO TID 07/14/22 09/22/22 Unknown History insulin aspart U-100 100 unit/mL 8 unit subcut TIDAC 07/14/22 09/22/22 Unknown History (3 mL) subcutaneous pen (Novolog Flexpen U-100 Insulin aspart) insulin degludec 100 unit/mL (3 32 unit subcut DAILY 07/14/22 09/22/22 Unknown History mL) subcutaneous pen (Tresiba FlexTouch U-100 insulin) linagliptin 5 mg tablet (Tradjenta) 1 tab PO DAILY 07/14/22 09/22/22 Unknown History lorazepam 0.5 mg tablet 1 tab PO BID PRN Anxiety 07/14/22 09/22/22 Unknown History melatonin 5 mg tablet 1 tab PO BEDTIME 07/14/22 09/22/22 Unknown History sodium zirconium cyclosilicate 5 1 ea PO Q48H 07/14/22 09/22/22 Unknown History gram oral powder packet ([facility]) trazodone 50 mg tablet 0.5 tab PO BEDTIME PRN Insomnia 07/14/22 09/22/22 Unknown History allopurinol 100 mg tablet 100 mg PO DAILY 08/20/22 09/22/22 Unknown History aspirin 81 mg tablet,delayed 81 mg PO DAILY 08/20/22 09/22/22 Unknown History release atorvastatin 80 mg tablet 80 mg PO BEDTIME 08/20/22 09/22/22 Unknown History cetirizine 10 mg tablet 10 mg PO DAILY 08/20/22 09/22/22 Unknown History cholecalciferol (vitamin D3) 25 25 mcg PO DAILY 08/20/22 09/22/22 Unknown History mcg (1,000 unit) capsule clopidogrel 75 mg tablet 75 mg PO DAILY 08/20/22 09/22/22 Unknown History ferrous sulfate 325 mg (65 mg 325 mg PO DAILY 08/20/22 09/22/22 Unknown History iron) tablet (FeroSul) hydralazine 25 mg tablet 25 mg PO BEDTIME PRN Blood Pressure 08/20/22 09/22/22 Unknown History isosorbide mononitrate 30 mg 30 mg PO DAILY 08/20/22 09/22/22 Unknown History tablet,extended release 24 hr metoclopramide HCl 5 mg tablet 5 mg PO TID 08/20/22 09/22/22 Unknown History pantoprazole 40 mg tablet,delayed 40 mg PO BID 08/20/22 09/22/22 Unknown History release tamsulosin 0.4 mg capsule 0.4 mg PO DAILY 08/20/22 09/22/22 Unknown History ammonium lactate 12 % lotion 1 applic topical BID PRN Dry Skin 09/12/22 09/22/22 Unknown History clotrimazole-betamethasone 1 1 appl topical BID 09/12/22 09/22/22 Unknown History %-0.05 % topical cream fluticasone furoate 100 1 puff inhalation DAILY 09/12/22 09/22/22 Unknown History mcg-vilanterol 25 mcg/dose inhalation powder (Breo Ellipta) nitroglycerin 0.4 mg sublingual 0.4 mg sublingual Q5M chest pain 09/12/22 09/22/22 Unknown History tablet nystatin 100,000 unit/gram topical 1 applic topical BID 09/12/22 09/22/22 Unknown History powder metoprolol succinate 25 mg 25 mg PO DAILY 09/22/22 09/22/22 Unknown History tablet,extended release 24 hr Physical Exam Vital Signs and Narrative: Vital Signs: Last Vital Signs Temp 99.7 F 09/22/22 11:08 Pulse 88 09/22/22 13:45 Resp 15 09/22/22 15:36 BP 122/71 09/22/22 15:36 Pulse Ox 98 09/22/22 15:36 O2 Del Method 09/22/22 15:36 O2 Flow Rate 2 09/22/22 15:36 BMI result Body Mass Index 31.4 Constitutional - Awake and Alert, No apparent distress Eyes - PERRLA, EOMI Ears: Left- external eat ttp with manipulation of tragus and pinna, canal clear, TM erythematous without bulging. Right ear- external ears normal, canals clear, TM erythematous non bulging Cardiovascular - S1S2, RRR, No edema Respiratory - Coarse breath sound with b/l scattered wheezing and diffuse rhonchi. Normal lung expansion, Normal respiratory effort, No respiratory distress. Pt desaturating to 87% on RA Gastrointestinal - NT / ND; +BS; No rebound or guarding Extremities - no calf tenderness bilaterally, no swelling Skin - Warm/Dry Neurological - Alert & oriented x3, No focal deficit Psychological - Appropriate affect Results Labs CBC and Chem 7: 09/22/22 11:32 09/22/22 12:29 Labs: Laboratory Results - last 24 hr 09/22/22 09/22/22 09/22/22 11:32 11:32 11:32 MCV 99.4 H MCH 31.3 MCHC 31.5 RDW 13.8 Plt Count 262 D MPV 10.3 Immature Gran % (Auto) 0.3 Neut % (Auto) 79.9 H Lymph % (Auto) 10.7 L Snyder % (Auto) 7.0 Eos % (Auto) 1.9 Baso % (Auto) 0.2 Lymph # (Auto) 1.4 Snyder # (Auto) 0.9 Eos # (Auto) 0.3 Baso # (Auto) 0.0 Abs Immat Gran (auto) 0.04 H Absolute Neuts (auto) 10.5 H Absolute Nucleated RBC 0.000 Nucleated RBC % (auto) 0.0 PT INR VBG pH VBG pCO2 VBG pO2 VBG HCO3 VBG O2 Saturation VBG Base Excess Anion Gap Estim Creat Clear Calc Estimated GFR Random Glucose Lactic Acid 0.8 Calcium Total Bilirubin AST ALT Alkaline Phosphatase Troponin I High Sens B-Natriuretic Peptide Total Protein Albumin Procalcitonin Influenza Type A (PCR) NEGATIVE Influenza Type B (PCR) NEGATIVE RSV RNA Qual (PCR) POSITIVE A SARS-CoV-2 RNA (RT-PCR) NEGATIVE 09/22/22 09/22/22 09/22/22 11:32 12:29 12:29 MCV MCH MCHC RDW Plt Count MPV Immature Gran % (Auto) Neut % (Auto) Lymph % (Auto) Snyder % (Auto) Eos % (Auto) Baso % (Auto) Lymph # (Auto) Snyder # (Auto) Eos # (Auto) Baso # (Auto) Abs Immat Gran (auto) Absolute Neuts (auto) Absolute Nucleated RBC Nucleated RBC % (auto) PT 12.1 INR 1.1 VBG pH VBG pCO2 VBG pO2 VBG HCO3 VBG O2 Saturation VBG Base Excess Anion Gap 18 Estim Creat Clear Calc 31.5 Estimated GFR 31 Random Glucose 149 H Lactic Acid Calcium 8.7 D Total Bilirubin 0.2 AST 23 ALT 18 Alkaline Phosphatase 104 Troponin I High Sens 44.8 H D B-Natriuretic Peptide 901 H Total Protein 7.8 Albumin 3.8 Procalcitonin Influenza Type A (PCR) Influenza Type B (PCR) RSV RNA Qual (PCR) SARS-CoV-2 RNA (RT-PCR) 09/22/22 09/22/22 09/22/22 12:29 12:34 14:13 MCV MCH MCHC RDW Plt Count MPV Immature Gran % (Auto) Neut % (Auto) Lymph % (Auto) Snyder % (Auto) Eos % (Auto) Baso % (Auto) Lymph # (Auto) Snyder # (Auto) Eos # (Auto) Baso # (Auto) Abs Immat Gran (auto) Absolute Neuts (auto) Absolute Nucleated RBC Nucleated RBC % (auto) PT INR VBG pH 7.34 VBG pCO2 51 VBG pO2 34 VBG HCO3 28 H VBG O2 Saturation 45.0 VBG Base Excess 1.7 Anion Gap Estim Creat Clear Calc Estimated GFR Random Glucose Lactic Acid Calcium Total Bilirubin AST ALT Alkaline Phosphatase Troponin I High Sens 46.3 H B-Natriuretic Peptide Total Protein Albumin Procalcitonin 0.04 Influenza Type A (PCR) Influenza Type B (PCR) RSV RNA Qual (PCR) SARS-CoV-2 RNA (RT-PCR) Imaging Radiologist's Impressions: Impressions Chest X-Ray 09/22/22 12:05 IMPRESSION: Subtle opacities in the right upper lobe could represent atelectasis and/or infiltrate. Assessment and Plan (1) Acute hypoxemic respiratory failure: Status: Acute (2) RSV infection: Status: Acute (3) Pneumonia: Status: Acute (4) COPD exacerbation: Status: Acute Plan 62 year old female with history of ?CAD s/p CABG, CKD, history of C diff colitis, HTN, IBS, GERD, COPD, history of anemia, HLD, diabetes, heart failure with preserved ejection fraction, s/p pacemaker admitted for acute hypoxemic respiratory failure, RSV pneumonia, and COPD exacerbation. # Acute hypoxemic respiratory failure -Not home oxygen dependent -Continue supplemental O2 to maintain O2 saturation >92% # acute viral pneumonia due to RSV -Abx not indicated, viral pneumonia -Procalcitonin 0.04 - guaifenesin and Tessalon Perles p.r.n. - continue home antihistamine - encourage p.o. hydration - continue supplemental O2 as above #Viral otitis media -Related to RSV infection, abx not indicated -Tylenol and ibuprofen prn -Warm dry heat #Acute COPD exacerbation secondary to RSV pneumonia -IV solumedrol -Duonebs q4h while awake -Hold maintenance inhalers -Supplemental O2 as above -Symptomatic tx as above #CAD/HLD s/p CABG -No anginal chest pain -Continue statin - continue isosorbide and beta-héctor -Continue asa/plavix # insulin-dependent type 2 diabetes - dose adjusted Lantus for insulin glargine - POC glucose\ - diabetic diet - Humalog on sliding scale # HTN- controlled - continue home med full code DVT prophylaxis-Lovenox Quality Stroke Does the patient have a stroke diagnosis?: No VTE Prior VTE?: No VTE Risk Level:: Medical - moderate - high VTE Device Contraindication: Treatment Not Indicated VTE Drug Contraindication: N/A - Med Ordered
[2022-09-22] MEDS: Omeprazole 20 MG CAPSULE.DR PO (17:27)
[2022-09-22] MEDS: Enoxaparin Sodium 30 MG/0.3 ML SYRINGE SUBCUT (17:27)
[2022-09-22] MEDS: LORazepam 0.5 MG TABLET PO (17:56)
[2022-09-22 18:17] LABS: Glucose, Whole Blood 303 mg/dL (60-115)
[2022-09-22] MEDS: Insulin Lispro 100 UNIT/ML 3 ML VIAL SUBCUT ×2 (18:18→21:28)
[2022-09-22 21:25] LABS: Glucose, Whole Blood 315 mg/dL (60-115)
[2022-09-22] MEDS: Nystatin Powder 15 GM BOTTLE 1 APPL TOPICAL (21:27)
[2022-09-22] MEDS: Atorvastatin Calcium 80 MG TABLET PO (21:27)
[2022-09-22] MEDS: Melatonin 3 MG TABLET 6 MG PO (21:27)
[2022-09-22] MEDS: Metoclopramide HCl 5 MG TABLET PO (21:27)
[2022-09-22] MEDS: Gabapentin 100 MG CAPSULE 200 MG PO (21:29)
--- NOTE | 2022-09-22 22:10 | PC.NURSE ---
RN gave report to the nurse overflow.
[2022-09-23 05:29] LABS: MANUAL DIFF FLAG NO
[2022-09-23 05:30] LABS: Basophils Percent Auto 0.1 % (0-2); Hematocrit 29.8 % (37.0-47.0); Hemoglobin 9.5 g/dl (12.0-16.0); Imm Gran Abs Auto 0.05 X10*3/uL (0.00-0.03); Imm Gran Pct Auto 0.5 % (0.0-0.4); Lymphocytes Absolute Auto 0.7 X10*3/uL (1.2-4.9); Mean Corpuscular HGB Conc 31.9 g/dl (31.0-35.0); Mean Corpuscular Hemoglobin 30.9 pg (27.0-33.0); Mean Corpuscular Volume 97.1 fL (80.0-98.0); Mean Platelet Volume 10.1 fL (9.4-12.3); Monocytes Absolute Auto 0.3 X10*3/uL (0.1-1.2); Monocytes Percent Auto 3.2 % (2-11); Neutrophils Absolute Auto 9.2 x10*3/uL (2.0-8.3); Neutrophils Percent Auto 89.2 % (45-73); Platelet Count 250 X10*3/uL (160-400); Red Blood Count 3.07 X10*6/uL (4.20-5.50); Red Cell Distribution Width 13.7 % (11.0-16.0); White Blood Count 10.3 X10*3/uL (4.8-10.8)
[2022-09-23] MEDS: Omeprazole 20 MG CAPSULE.DR PO (05:59)
[2022-09-23 06:02] VITALS: BP 186/75; PULSE 79; RESP 18; TEMP 36.2; O2SAT 100
--- NOTE | 2022-09-23 07:07 | PC.NURSE ---
report given to AYUSH Espinal
[2022-09-23] MEDS: Sodium Zirconium Cyclosilicate 5 GM POWD.PACK PO (07:25)
[2022-09-23] MEDS: Insulin Glargine,Hum.rec.anlog 100 UNIT/ML 10 ML VIAL 17 UNIT SUBCUT (07:26)
[2022-09-23] MEDS: Insulin Lispro 100 UNIT/ML 3 ML VIAL SUBCUT (07:26)
[2022-09-23] MEDS: Isosorbide Mononitrate 30 MG TAB.ER.24H PO (07:27)
[2022-09-23] MEDS: Clopidogrel Bisulfate 75 MG TABLET PO (07:27)
[2022-09-23] MEDS: Gabapentin 100 MG CAPSULE 200 MG PO (07:28)
[2022-09-23] MEDS: Cholecalciferol (Vitamin D3) 25 MCG TABLET PO (07:28)
[2022-09-23] MEDS: Aspirin Enteric Coated 81 MG TABLET.DR PO (07:28)
[2022-09-23] MEDS: Metoprolol Succinate ER 25 MG TAB.ER.24H PO (07:28)
[2022-09-23] MEDS: Ferrous Sulfate 324 MG TABLET.DR PO (07:29)
[2022-09-23] MEDS: allopurinoL 100 MG TABLET PO (07:30)
[2022-09-23] MEDS: Loratadine 10 MG TABLET PO (07:30)
[2022-09-23] MEDS: Nystatin Powder 15 GM BOTTLE 1 APPL TOPICAL (07:30)
[2022-09-23 07:34] LABS: Glucose, Whole Blood 213 mg/dL (60-115)
[2022-09-23] MEDS: methylPREDNISolone Sod Succ 40 MG/ML VIAL IVPUSH (07:37)
[2022-09-23] MEDS: Albuterol/Iprat 2.5/0.5MG 3 ML AMPUL.NEB INHALE (08:10)
[2022-09-23 08:12] VITALS: PULSE 93; RESP 18; O2SAT 99
--- NOTE | 2022-09-23 08:55 | MHC.CM.PN ---
Patient is positive for RSV; CM spoke over the phone with her at [phone] and addressed IMM with her (original to be given to patient and a copy to be placed on the chart). Patient lives in an apartment with her adult Granddaughter and she uses a walker to assist with mobility. Patient has a PCP through [facility] (47 hours/week) and a RN BID for meds through [facility]. Home/resume said services is the goal and CM has initiated and will follow for dc planning. Patient has received Moderna/Covid vax x3.
--- NOTE | 2022-09-23 08:58 | P.DS_ITS ---
DS: Providers Provider Date of Service: 09/23/22 Date of admission: 09/22/22 15:44 Date of discharge: 09/23/22 Primary care physician: Unknown Physician DS: Diagnosis Discharge Diagnosis (1) Acute hypoxemic respiratory failure: Status: Acute (2) RSV infection: Status: Acute (3) Pneumonia: Status: Acute (4) COPD exacerbation: Status: Acute DS: Summary Hospital Course Hospital Course: HPI: 62 year old female with history of ?CAD s/p CABG, CKD, history of C diff colitis, HTN, IBS, GERD, COPD, history of anemia, HLD, diabetes, heart failure with preserved ejection fraction, s/p pacemaker presents to the ED earlier today for evaluation of URI symptoms ongoing for several days. Reports her great granddaughter recently had RSV. Several days ago developed nonproductive couhg, sob, sore throat, and bilateral ear pain L>R as well as pleuritic chest pain. She has noted increased use of rescue inhaler and reports compliance with maintenance inhalers. She uses 2L supplemental O2 for nocturnal hypoxia, but denies any increased need for supplemental O2. Denies fevers, chills, nasal congestion, wheezing, abd pain, nausea, vomiting, diarrhea, constipation, lightheadedness, palpitations, chest pressure, or LE edema. She has been afebrile. No tachycardia, tachypnea, or hypotension. Oximetry 92% on RA, started on 2L supplemental O2 via NC. Leukocytosis 13.1. VBG unremarkable. Potassium 5.4, renal function and electrolytes otherwise stable showing chronic renal insufficiency with creat 1.67, BUN 38. Troponins flat at 44.8 and 46.3. BNP 901, baseline 189. Negative COVID-19 and influenza. Positive RSV. CXR showed RUQ patchy infiltrate. EKG showing atrial sensed ventricular-paced rhythm with prolonged AV conduction and nonspecific ST/T wave abnormality. Pt to be admitted for acute hypoxemic respiratory failure with RSV pneumonia and COPD exacerbation. Hospital course: Patient with significant improvement with conservative management and scheduled DuoNebs throughout hospital course. Patient maintaining normal oxygen saturation at room air prior to discharge. No wheezing at discharge. Patient will be discharged with a prescription of p.o. prednisone 40 mg x 4 days. Close follow-up with PCP. Status at Discharge Overall status at discharge: patient is back to baseline Time Spent with Patient Time attestation: Total time spent providing and/or coordinating discharge services: Discharge coordination time: Less than 30 minutes Quality: Safe Use of Opioids Does Pt have an Active Cancer Diagnosis on the Problem List?: No Quality: Stroke Does the patient have a stroke diagnosis?: No Physical Exam Vital Signs: Vital Signs: Last Vital Signs Temp 97.2 F 09/23/22 06:02 Pulse 93 09/23/22 08:12 Resp 18 09/23/22 08:12 BP 186/75 H 09/23/22 06:02 Pulse Ox 100 09/23/22 06:02 O2 Del Method 09/23/22 06:02 O2 Flow Rate 2 09/23/22 06:02 BMI result Body Mass Index 31.4 Middle-aged female lying in bed in no distress Neck supple, no JVD Regular rate and rhythm, S1-S2 heard Coarse breath sounds without wheezing Abdomen soft nontender, no guarding, no rigidity Patient is awake, alert and oriented to self, place, time and person ; no focal motor deficit Psych: Normal mood No pedal edema DS: Data Data Completed and Pending Completed studies during hospitalization [Text1]: Procedures Insertion of Infusion Device into Right Basilic Vein, Percutaneous Approach (10/31/20) Transfusion of Nonautologous Red Blood Cells into Peripheral Vein, Percutaneous Approach (10/31/20) Labs on day of discharge: Laboratory Results - last 24 hr 09/22/22 09/22/22 09/22/22 11:32 11:32 11:32 WBC 13.1 H RBC 3.10 L Hgb 9.7 L Hct 30.8 L MCV 99.4 H MCH 31.3 MCHC 31.5 RDW 13.8 Plt Count 262 D MPV 10.3 Immature Gran % (Auto) 0.3 Neut % (Auto) 79.9 H Lymph % (Auto) 10.7 L Gonzales % (Auto) 7.0 Eos % (Auto) 1.9 Baso % (Auto) 0.2 Lymph # (Auto) 1.4 Gonzales # (Auto) 0.9 Eos # (Auto) 0.3 Baso # (Auto) 0.0 Abs Immat Gran (auto) 0.04 H Absolute Neuts (auto) 10.5 H Absolute Nucleated RBC 0.000 Nucleated RBC % (auto) 0.0 PT INR VBG pH VBG pCO2 VBG pO2 VBG HCO3 VBG O2 Saturation VBG Base Excess Sodium Potassium Chloride Carbon Dioxide Anion Gap BUN Creatinine Estim Creat Clear Calc Estimated GFR POC Glucose Random Glucose Lactic Acid 0.8 Calcium Total Bilirubin AST ALT Alkaline Phosphatase Troponin I High Sens B-Natriuretic Peptide Total Protein Albumin Procalcitonin Influenza Type A (PCR) NEGATIVE Influenza Type B (PCR) NEGATIVE RSV RNA Qual (PCR) POSITIVE A SARS-CoV-2 RNA (RT-PCR) NEGATIVE 09/22/22 09/22/22 09/22/22 11:32 12:29 12:29 WBC RBC Hgb Hct MCV MCH MCHC RDW Plt Count MPV Immature Gran % (Auto) Neut % (Auto) Lymph % (Auto) Gonzales % (Auto) Eos % (Auto) Baso % (Auto) Lymph # (Auto) Gonzales # (Auto) Eos # (Auto) Baso # (Auto) Abs Immat Gran (auto) Absolute Neuts (auto) Absolute Nucleated RBC Nucleated RBC % (auto) PT 12.1 INR 1.1 VBG pH VBG pCO2 VBG pO2 VBG HCO3 VBG O2 Saturation VBG Base Excess Sodium 142 Potassium 5.4 H Chloride 105 Carbon Dioxide 24 Anion Gap 18 BUN 38 H Creatinine 1.67 H Estim Creat Clear Calc 31.5 Estimated GFR 31 POC Glucose Random Glucose 149 H Lactic Acid Calcium 8.7 D Total Bilirubin 0.2 AST 23 ALT 18 Alkaline Phosphatase 104 Troponin I High Sens 44.8 H D B-Natriuretic Peptide 901 H Total Protein 7.8 Albumin 3.8 Procalcitonin Influenza Type A (PCR) Influenza Type B (PCR) RSV RNA Qual (PCR) SARS-CoV-2 RNA (RT-PCR) 09/22/22 09/22/22 09/22/22 12:29 12:34 14:13 WBC RBC Hgb Hct MCV MCH MCHC RDW Plt Count MPV Immature Gran % (Auto) Neut % (Auto) Lymph % (Auto) Gonzales % (Auto) Eos % (Auto) Baso % (Auto) Lymph # (Auto) Gonzales # (Auto) Eos # (Auto) Baso # (Auto) Abs Immat Gran (auto) Absolute Neuts (auto) Absolute Nucleated RBC Nucleated RBC % (auto) PT INR VBG pH 7.34 VBG pCO2 51 VBG pO2 34 VBG HCO3 28 H VBG O2 Saturation 45.0 VBG Base Excess 1.7 Sodium Potassium Chloride Carbon Dioxide Anion Gap BUN Creatinine Estim Creat Clear Calc Estimated GFR POC Glucose Random Glucose Lactic Acid Calcium Total Bilirubin AST ALT Alkaline Phosphatase Troponin I High Sens 46.3 H B-Natriuretic Peptide Total Protein Albumin Procalcitonin 0.04 Influenza Type A (PCR) Influenza Type B (PCR) RSV RNA Qual (PCR) SARS-CoV-2 RNA (RT-PCR) 09/22/22 09/22/22 09/23/22 18:13 21:19 05:16 WBC 10.3 RBC 3.07 L Hgb 9.5 L Hct 29.8 L MCV 97.1 MCH 30.9 MCHC 31.9 RDW 13.7 Plt Count 250 MPV 10.1 Immature Gran % (Auto) 0.5 H Neut % (Auto) 89.2 H Lymph % (Auto) 7.0 L Gonzales % (Auto) 3.2 Eos % (Auto) 0.0 Baso % (Auto) 0.1 Lymph # (Auto) 0.7 L Gonzales # (Auto) 0.3 Eos # (Auto) 0.0 Baso # (Auto) 0.0 Abs Immat Gran (auto) 0.05 H Absolute Neuts (auto) 9.2 H Absolute Nucleated RBC 0.000 Nucleated RBC % (auto) 0.0 PT INR VBG pH VBG pCO2 VBG pO2 VBG HCO3 VBG O2 Saturation VBG Base Excess Sodium Potassium Chloride Carbon Dioxide Anion Gap BUN Creatinine Estim Creat Clear Calc Estimated GFR POC Glucose 303 H 315 H Random Glucose Lactic Acid Calcium Total Bilirubin AST ALT Alkaline Phosphatase Troponin I High Sens B-Natriuretic Peptide Total Protein Albumin Procalcitonin Influenza Type A (PCR) Influenza Type B (PCR) RSV RNA Qual (PCR) SARS-CoV-2 RNA (RT-PCR) 09/23/22 07:11 WBC RBC Hgb Hct MCV MCH MCHC RDW Plt Count MPV Immature Gran % (Auto) Neut % (Auto) Lymph % (Auto) Gonzales % (Auto) Eos % (Auto) Baso % (Auto) Lymph # (Auto) Gonzales # (Auto) Eos # (Auto) Baso # (Auto) Abs Immat Gran (auto) Absolute Neuts (auto) Absolute Nucleated RBC Nucleated RBC % (auto) PT INR VBG pH VBG pCO2 VBG pO2 VBG HCO3 VBG O2 Saturation VBG Base Excess Sodium Potassium Chloride Carbon Dioxide Anion Gap BUN Creatinine Estim Creat Clear Calc Estimated GFR POC Glucose 213 H Random Glucose Lactic Acid Calcium Total Bilirubin AST ALT Alkaline Phosphatase Troponin I High Sens B-Natriuretic Peptide Total Protein Albumin Procalcitonin Influenza Type A (PCR) Influenza Type B (PCR) RSV RNA Qual (PCR) SARS-CoV-2 RNA (RT-PCR) Discharge Plan Discharge Anticipated Discharge Date/Time: 09/23/22 10:02 Patient Disposition: Home, Self-Care Discharge Diagnosis: Acute hypoxemic respiratory failure due to COPD exacerbation in the setting of RSV viral pneumonia Referrals: Physician,Unknown J [Primary Care Provider] - 1 Week Discharge Medications: New ipratropium-albuterol 0.5 mg-3 mg(2.5 mg base)/3 mL Solution For Nebulization 3 ml inhalation RQ4H WHILE AWAKE 15 Days Qty: 3 0RF prednisone 20 mg tablet 40 mg PO DAILY Qty: 4 0RF Continued trazodone 50 mg tablet 0.5 tab PO BEDTIME PRN (Reason: Insomnia) (DME) FreeStyle Lite Strips Strip MISCELLANEOUS lorazepam 0.5 mg tablet 1 tab PO BID PRN (Reason: Anxiety) gabapentin 100 mg capsule 2 cap PO TID insulin aspart U-100 [Novolog Flexpen U-100 Insulin] 100 unit/mL (3 mL) insulin pen 8 unit subcut TIDAC melatonin 5 mg tablet 1 tab PO BEDTIME Tradjenta 5 mg tablet 1 tab PO DAILY insulin degludec [Tresiba FlexTouch U-100] 100 unit/mL (3 mL) insulin pen 32 unit subcut DAILY Lokelma 5 gram powder in packet 1 ea PO Q48H allopurinol 100 mg tablet 100 mg PO DAILY aspirin 81 mg tablet,delayed release (DR/EC) 81 mg PO DAILY atorvastatin 80 mg tablet 80 mg PO BEDTIME cetirizine 10 mg tablet 10 mg PO DAILY cholecalciferol (vitamin D3) 25 mcg (1,000 unit) capsule 25 mcg PO DAILY clopidogrel 75 mg tablet 75 mg PO DAILY ferrous sulfate [FeroSul] 325 mg (65 mg iron) tablet 325 mg PO DAILY hydralazine 25 mg tablet 25 mg PO BEDTIME PRN (Reason: Blood Pressure) isosorbide mononitrate 30 mg tablet extended release 24 hr 30 mg PO DAILY metoclopramide HCl 5 mg tablet 5 mg PO TID pantoprazole 40 mg tablet,delayed release (DR/EC) 40 mg PO BID tamsulosin 0.4 mg capsule 0.4 mg PO DAILY ammonium lactate 12 % lotion 1 applic topical BID PRN (Reason: Dry Skin) clotrimazole-betamethasone 1-0.05 % cream 1 appl topical BID nitroglycerin 0.4 mg tablet, sublingual 0.4 mg sublingual Q5M nystatin 100,000 unit/gram powder 1 applic topical BID fluticasone furoate-vilanterol [Breo Ellipta] 100-25 mcg/dose blister with device 1 puff inhalation DAILY metoprolol succinate 25 mg tablet extended release 24 hr 25 mg PO DAILY Discontinued vancomycin 125 mg capsule 125 mg PO QID Qty: 70 0RF Rx Instructions: 125 mg q.i.d. for 1 week 125 mg t.i.d. for 1 week 125 mg b.i.d. for 1 week 125 mg daily for 1 week and then 125 mg M, W, F indefinitely after that Discharge Orders: Discharge Order (Routine); Ordered 09/23/22 Ordered By: Mukesh Rose Diet: Diabetic diet Activity on Discharge: As tolerated Stand Alone Forms: Patient Portal Discharge page Care Plan Goals: Take po steroids as prescribed Follow up with PCP in one week Health Concerns: COPD. Continue home inhalers Plan of Treatment: Prednisone 40mg daily x 4days Assessment: As per summary
--- NOTE | 2022-09-23 09:38 | MHC.CM.PN ---
Patient has been medically cleared for dc to home today self care ([facility] services should resume as before). Patient will dc to home today at 11 AM via [facility].
[2022-09-23] MEDS: Metoclopramide HCl 5 MG TABLET PO (10:11)
--- NOTE | 2022-09-23 10:13 | PC.NURSE ---
alert, speech clear, skin wpd, nad, ate breakfast medicated as ordered, going home at 110 and comfortable w the plan
--- NOTE | 2022-09-23 12:06 | PC.NURSE ---
alert, nad, occasional cough, ate breakfast medicated as ordered, slept on/off, skin wpd, report to ems
== END 2022-09-23 12:15 | disposition home or self-care (01) | DRG 193 ==
LOC: HO.ED 14:18 → HO.EDOVER 15:56
PROVIDERS: Internal Medicine; Admitting Provider Physician Assistant; Emergency Provider Student in an Organized Health Care Education/Training Program; Visit Provider Student in an Organized Health Care Education/Training Program
DX: J12.1 Respiratory syncytial virus pneumonia (principal); J96.01 Acute respiratory failure with hypoxia; J44.0 Chronic obstructive pulmonary disease with (acute) lower respiratory infection; I13.0 Hypertensive heart and chronic kidney disease with heart failure and stage 1 through stage 4 chronic kidney disease, or unspecified chronic kidney disease; I50.32 Chronic diastolic (congestive) heart failure; J44.1 Chronic obstructive pulmonary disease with (acute) exacerbation; E11.22 Type 2 diabetes mellitus with diabetic chronic kidney disease; N18.32 Chronic kidney disease, stage 3b; E78.5 Hyperlipidemia, unspecified; H67.1 Otitis media in diseases classified elsewhere, right ear; I25.10 Atherosclerotic heart disease of native coronary artery without angina pectoris; Z20.822 Contact with and (suspected) exposure to COVID-19; Z95.1 Presence of aortocoronary bypass graft; Z87.891 Personal history of nicotine dependence; Z79.4 Long term (current) use of insulin; Z79.02 Long term (current) use of antithrombotics/antiplatelets; Z79.899 Other long term (current) drug therapy
CPT/HCPCS: 0241U; 36415; 71045; 80053; 82803; 82947; 83605; 83880; 84145; 84484; 85025; 85610; 87040; 93005; 94640; 99285; J0696; J1650; J1940; J2920; J2930

== ENCOUNTER 2022-09-28 11:38 | Inpatient (IN) | payer OTHER, SELFPAY ==
--- NOTE | ~2022-09-28 | XR_ITS ---
EXAMINATION: XR CHEST CLINICAL INFORMATION: Shortness of breath COMPARISON: 09/22/2022 TECHNIQUE: Frontal view of the chest was obtained. FINDINGS: Heart size borderline with slight distention of the pulmonary vessels but improved from the prior study. Lungs are better aerated today and considered normal. Continued follow-up advised. Sternal wires present. Left-sided pacer stable in position. XR/XR chest 1V IMPRESSION: Improving aeration.
--- NOTE | 2022-09-28 11:50 | ED.GENADULT ---
HPI - General Adult General Chief complaint: Dyspnea Stated complaint: CP,SOB 95% RA,RECENT +RSV PER EMS Time Seen by Provider: 09/28/22 11:50 Source: patient and EMS Mode of arrival: EMS Limitations: no limitations History of Present Illness HPI narrative: Patient is a 62 year old assigned female at with a history of recent RSV infection, CKD, CVA, CHF, NSTEMI, and CAD presenting to the emergency department today with increased difficulty breathing since being discharged from the hospital on 09/23/2022. Patient states that since she was discharged on 09/23/2022 she has been having much worse trouble breathing. Patient states that she finished her steroids yesterday. Patient denies any dizziness, lightheadedness, abdominal pain, nausea, vomiting, fever, chills, blurry vision, double vision, loss of vision, chest pain, back pain, night sweats, pain with urination, increased urinary frequency, increased urinary urgency, blood in her urine or stool, syncope or a near syncopal episode, recent trauma or falls, bowel incontinence, bladder incontinence, bowel retention, bladder retention, or any other complaints at this time. Onset (ago): day(s) Severity: mild Severity scale (1-10): 3 Relieving factors: none Exacerbating factors: none Associated symptoms: denies other symptoms Treatments prior to arrival: none Related Data Home Medications Medication Instructions Recorded Confirmed blood sugar diagnostic (FreeStyle 07/14/22 09/22/22 Lite Strips) gabapentin 100 mg capsule 2 cap PO TID 07/14/22 09/22/22 insulin aspart U-100 100 unit/mL 8 unit subcut TIDAC 07/14/22 09/22/22 (3 mL) subcutaneous pen (Novolog Flexpen U-100 Insulin aspart) insulin degludec 100 unit/mL (3 32 unit subcut DAILY 07/14/22 09/22/22 mL) subcutaneous pen (Tresiba FlexTouch U-100 insulin) linagliptin 5 mg tablet (Tradjenta) 1 tab PO DAILY 07/14/22 09/22/22 lorazepam 0.5 mg tablet 1 tab PO BID PRN Anxiety 07/14/22 09/22/22 melatonin 5 mg tablet 1 tab PO BEDTIME 07/14/22 09/22/22 sodium zirconium cyclosilicate 5 1 ea PO Q48H 07/14/22 09/22/22 gram oral powder packet (Lokelzonia) trazodone 50 mg tablet 0.5 tab PO BEDTIME PRN Insomnia 07/14/22 09/22/22 allopurinol 100 mg tablet 100 mg PO DAILY 08/20/22 09/22/22 aspirin 81 mg tablet,delayed 81 mg PO DAILY 08/20/22 09/22/22 release atorvastatin 80 mg tablet 80 mg PO BEDTIME 08/20/22 09/22/22 cetirizine 10 mg tablet 10 mg PO DAILY 08/20/22 09/22/22 cholecalciferol (vitamin D3) 25 25 mcg PO DAILY 08/20/22 09/22/22 mcg (1,000 unit) capsule clopidogrel 75 mg tablet 75 mg PO DAILY 08/20/22 09/22/22 ferrous sulfate 325 mg (65 mg 325 mg PO DAILY 08/20/22 09/22/22 iron) tablet (FeroSul) hydralazine 25 mg tablet 25 mg PO BEDTIME PRN Blood Pressure 08/20/22 09/22/22 isosorbide mononitrate 30 mg 30 mg PO DAILY 08/20/22 09/22/22 tablet,extended release 24 hr metoclopramide HCl 5 mg tablet 5 mg PO TID 08/20/22 09/22/22 pantoprazole 40 mg tablet,delayed 40 mg PO BID 08/20/22 09/22/22 release tamsulosin 0.4 mg capsule 0.4 mg PO DAILY 08/20/22 09/22/22 ammonium lactate 12 % lotion 1 applic topical BID PRN Dry Skin 09/12/22 09/22/22 clotrimazole-betamethasone 1 1 appl topical BID 09/12/22 09/22/22 %-0.05 % topical cream fluticasone furoate 100 1 puff inhalation DAILY 09/12/22 09/22/22 mcg-vilanterol 25 mcg/dose inhalation powder (Breo Ellipta) nitroglycerin 0.4 mg sublingual 0.4 mg sublingual Q5M chest pain 09/12/22 09/22/22 tablet nystatin 100,000 unit/gram topical 1 applic topical BID 09/12/22 09/22/22 powder metoprolol succinate 25 mg 25 mg PO DAILY 09/22/22 09/22/22 tablet,extended release 24 hr Previous Rx's Medication Instructions Recorded ipratropium 0.5 mg-albuterol 3 mg 3 ml inhalation RQ4H WHILE AWAKE 09/23/22 (2.5 mg base)/3 mL nebulization 15 days #3 mL soln prednisone 20 mg tablet 40 mg PO DAILY #4 tabs 09/23/22 Allergies Allergy/AdvReac Type Severity Reaction Status Date / Time tetracycline [Tetracycline] Allergy Mild HIVES, Verified 08/14/22 14:41 anaphylaxis, anaphylaxis Review of Systems Constitutional: Constitutional: Reports no additional constitutional complaints, Denies chills, Denies fever(s) and Denies night sweats Eyes: Eyes: Reports no additional eye complaints, Denies blurry vision, Denies change in vision, Denies diplopia, Denies eye discharge, Denies loss of vision and Denies eye pain ENT: Denies dizziness Cardiovascular: Cardiovascular: Reports no additional cardiovascular complaints, Denies chest pain, Denies lightheadedness, Denies Loss of Consciousness and Reports dyspnea Respiratory: Respiratory: Reports no additional respiratory complaints, Reports cough and Reports dyspnea Gastrointestinal: Gastrointestinal: Reports no additional gastrointestinal complaints, Denies abdominal pain, Denies melena, Denies hematochezia, Denies change in bowel habits and Denies change in stool character Genitourinary: Genitourinary: Denies hematuria, Denies urinary frequency, Denies dysuria, Denies urinary incontinence, Denies urinary hesitancy and Denies urinary urgency Musculoskeletal: Musculoskeletal: Reports no additional musculoskeletal complaints, Denies numbness and Denies tingling Neurologic: Denies dizziness, Denies loss of vision, Denies numbness and Denies tingling Psychiatric: Psychiatric: Reports no additional psychiatric complaints Endocrine: Endocrine: Reports no additional endocrine complaints Hematologic/Lymphatic: Hematologic/Lymphatic: Reports no additional hematologic/lymphatic complaints Allergic/Immunologic: Allergic/Immunologic: Reports no additional allergic/immunologic complaints PMFSH Past Medical History Attestation statement: The following information was validated with the patient. Source: old records reviewed Medical History Acute heart failure with preserved ejection fraction Acute kidney injury superimposed on CKD Acute renal failure due to rhabdomyolysis Anemia Anxiety Arthritis C. difficile colitis Cardiac pacemaker in situ Carpal tunnel syndrome Chest pain CHF (congestive heart failure) Chronic heart failure with preserved ejection fraction (HFpEF) COPD exacerbation Coronary artery disease CVA (cerebral vascular accident) Diabetes Diabetic gastroparesis Diarrhea Fall Gastritis Gastroparesis Gastroparesis GERD (gastroesophageal reflux disease) Heart failure with preserved ejection fraction HLD (hyperlipidemia) HTN (hypertension) HTN (hypertension) Hypocalcemia Hypoxia IBS (irritable bowel syndrome) Knee pain, left Myocardial infarct Orthostasis Positive occult stool blood test Renal failure Rhabdomyolysis Suprapatellar effusion of knee T2DM (type 2 diabetes mellitus) UTI (urinary tract infection) Surgical History H/O Achilles tendon repair History of appendectomy History of bladder surgery History of carpal tunnel release History of total hysterectomy with bilateral salpingo-oophorectomy (BSO) Hx of amputation Hx of CABG (~2018) Hx of cholecystectomy Hx of endoscopy Hx of knee surgery Hx of tonsillectomy Family History Family History Father No problems noted. Mother Diabetes Hypercholesteremia Hypertension Stroke Social History Social History Household Members: Family Household Members Other:: Granddaughter Housing: Apartment Do you presently have visiting nurse or other home services: Yes Alcohol intake: former Patient Tobacco Use Status: Former Tobacco user Quit Date: 24 years ago Years Smoked: 20 Second Hand Smoke Exposure: No Advance Directives: Yes Advance Directives on File: Yes Advance Directives Date on File: 01/13/22 service: No Current occupational status: disabled Physical Exam ED Vital Signs: Vital Signs - 24 hr 09/28/22 11:54 09/28/22 13:12 Temperature 100.4 F Pulse Rate 95 99 Respiratory Rate 18 20 Blood Pressure 153/72 H Pulse Oximetry 100 Oxygen Delivery Method Room Air BMI result Body Mass Index 31.6 Const General: cooperative, no acute distress, alert and awake Nutritional Appearance: well nourished Orientation/consciousness: patient oriented x3 Limitations: no limitations HENMT Head: Yes normal to inspection and Yes atraumatic Ears: hearing grossly normal bilaterally and external ears normal General nose exam: Normal external nose present, no nasal discharge noted and no epistaxis Face and sinus: Yes normal facial exam, No abrasion and No laceration Mouth: Normal oral and palatal mucosa present, no drooling and no muffled voice Eyes General: appearance normal, both eyes and all related structures Periorbital: periorbital findings normal Eyelids: Yes eyelids normal Conjunctivae: conjunctivae normal Pupils: Equal, round and reactive pupils present EOM: EOMs intact bilaterally Neck Neck: Yes normal visual inspection, Yes full ROM and Yes no lymphadenopathy Chest Chest palpation & inspection: normal inspection of the chest Resp Effort & Inspection: able to speak in complete sentences, Actively coughing and labored Auscultation: rhonchi throughout Cardio Rate: regular rate Rhythm: regular rhythm GI Inspection: Yes normal to inspection Neuro General: patient oriented x3 and moves all extremities Cranial nerves: Yes Equal, round and reactive pupils present Cognition (Neuro): normal cognition Motor exam (neuro): 5/5 motor strength present throughout Sensory Exam: Normal double simultaneous stimulation for sensation Coordination: [id number] test normal Extrem General: Yes normal to inspection, Yes full ROM and Yes capillary refill normal Psych Appearance: grossly normal Mental Status: mental status grossly normal Affect: normal affect Attitude: cooperative Thought process: Normal thought process present Thought content: Normal thought content present Insight: Good insight present (Psych) Medications Administered Generic Name Dose Route Start Last Admin Trade Name Freq PRN Reason Stop Dose Admin Enoxaparin Sodium 30 mg 09/28/22 17:30 09/28/22 17:46 Enoxaparin Sodium 30 Mg/0.3 Ml Syringe SUBCUT 30 mg Q24H LAW Administration Methylprednisolone Sodium Succinate 40 mg 09/28/22 17:15 09/28/22 17:47 Methylprednisolone Sod Succ 40 Mg/Ml Vial IVPUSH 40 mg Q12H LAW Administration Discontinued Medications Generic Name Dose Route Start Last Admin Trade Name Freq PRN Reason Stop Dose Admin Acetaminophen 650 mg 09/28/22 12:02 09/28/22 13:36 Acetaminophen 325 Mg Tablet PO 09/28/22 12:03 650 mg ONCE ONE Administration Albuterol Sulfate 7.5 mg/ 0 mg 09/28/22 12:48 09/28/22 13:11 Albuterol/Ipratropium 3 ml INHALE 09/28/22 12:49 2.5 each ONCE ONE Administration Dexamethasone Sodium Phosphate 10 mg 09/28/22 11:50 09/28/22 13:36 Dexamethasone Sod Phosphate 10 Mg/Ml Vial IVPUSH 09/28/22 11:51 10 mg ONCE ONE Administration Sodium Zirconium Cyclosilicate 10 gm 09/28/22 17:10 09/28/22 17:46 Sodium Zirconium Cyclosilicate 10 Gm Powd.Pack PO 09/28/22 17:11 10 gm ONCE ONE Administration Medical Decision Making MDM Narrative Medical decision making narrative: Patient is a 62 year old assigned female at with a history of recent RSV infection, CKD, CVA, CHF, NSTEMI, and CAD presenting to the emergency department today with worsening shortness of breath. Patient's physical exam showed an individual in mild respiratory distress. Patient's blood work showed an elevated potassium of 5.6, elevated CR of 1.94, an elevated troponin of 32.5, an elevated BNP of 632 and an elevated WBC count of 11.5. I suspect the patient's elevated white blood cell count is secondary to her recent steroid use. Patient's EKG was unremarkable. Patient's chest x-ray showed improving airation from her previous admission. Patient's clinical presentation is consistent with an acute on chronic hypoxic episode. Patient's clinical presentation is not consistent with sepsis. I spoke to the hospitalist team who agreed to admission. I explained my physical exam findings as well as all test results to the patient. I answered all questions asked by the patient. Patient received a duoneb, IV steroids, and 2LPM of oxygen via NC which she stated helped her symptoms significantly. Patient verbalized agreement and understanding with this treatment plan and admission. Medical Records Medical records reviewed: Yes I reviewed the patient's medical records. Lab Data Lab results reviewed: Yes I reviewed the patient's lab results. Result diagrams: 09/28/22 12:37 09/28/22 12:37 Labs: Lab Results 09/28/22 09/28/22 09/28/22 Range/Units 12:37 12:37 12:37 WBC 11.5 H (4.8-10.8) X10*3/uL RBC 3.23 L (4.20-5.50) X10*6/uL Hgb 10.0 L (12.0-16.0) g/dl Hct 32.1 L (37.0-47.0) % MCV 99.4 H (80.0-98.0) fL MCH 31.0 (27.0-33.0) pg MCHC 31.2 (31.0-35.0) g/dl RDW 13.9 (11.0-16.0) % Plt Count 266 (160-400) X10*3/uL MPV 9.9 (9.4-12.3) fL Immature Gran % (Auto) 0.7 H (0.0-0.4) % Neut % (Auto) 88.7 H (45-73) % Lymph % (Auto) 5.3 L (20-40) % Laurens % (Auto) 4.1 (2-11) % Eos % (Auto) 0.9 (0-4) % Baso % (Auto) 0.3 (0-2) % Lymph # (Auto) 0.6 L (1.2-4.9) X10*3/uL Laurens # (Auto) 0.5 (0.1-1.2) X10*3/uL Eos # (Auto) 0.1 (0.0-0.4) X10*3/uL Baso # (Auto) 0.0 (0.0-0.2) X10*3/uL Abs Immat Gran (auto) 0.08 H (0.00-0.03) X10*3/uL Absolute Neuts (auto) 10.2 H (2.0-8.3) x10*3/uL Absolute Nucleated RBC 0.000 (0.0-0.012) X10*3/uL Nucleated RBC % (auto) 0.0 (0.0-0.2) /100WBC VBG pH (7.32-7.43) VBG pCO2 mmHg VBG pO2 mmHg VBG HCO3 (22-26) mmol/L VBG O2 Saturation % VBG Base Excess mmol/L Sodium 140 (135-145) mmol/L Potassium 5.6 H (3.3-5.1) mmol/L Chloride 104 (96-108) mmol/L Carbon Dioxide 22 (22-29) mmol/L Anion Gap 20 (12-20) BUN 50 H (9-16) mg/dL Creatinine 1.94 H (0.5-1.4) mg/dL Estim Creat Clear Calc 28.4 Estimated GFR 26 Random Glucose 170 H (60-115) mg/dL Estimat Average Glucose mg/dL Hemoglobin A1c % % Lactic Acid (0.5-2.0) mmol/L Calcium 8.4 (8.4-10.2) mg/dL Magnesium 2.1 (1.6-2.6) mg/dL Total Bilirubin 0.5 (0.0-1.0) mg/dL AST 29 (5-31) U/L ALT 36 H (0-31) U/L Alkaline Phosphatase 97 (39-117) U/L Troponin I High Sens (<3.5-17.0) ng/L B-Natriuretic Peptide 632 H (<100) pg/mL Total Protein 7.4 (6.5-8.0) g/dL Albumin 3.9 (3.5-5.0) g/dL Procalcitonin ng/mL Influenza Type A (PCR) (Negative) Influenza Type B (PCR) (Negative) RSV RNA Qual (PCR) (Negative) SARS-CoV-2 RNA (RT-PCR) (Negative) 09/28/22 09/28/22 09/28/22 Range/Units 12:37 12:37 12:37 WBC (4.8-10.8) X10*3/uL RBC (4.20-5.50) X10*6/uL Hgb (12.0-16.0) g/dl Hct (37.0-47.0) % MCV (80.0-98.0) fL MCH (27.0-33.0) pg MCHC (31.0-35.0) g/dl RDW (11.0-16.0) % Plt Count (160-400) X10*3/uL MPV (9.4-12.3) fL Immature Gran % (Auto) (0.0-0.4) % Neut % (Auto) (45-73) % Lymph % (Auto) (20-40) % Laurens % (Auto) (2-11) % Eos % (Auto) (0-4) % Baso % (Auto) (0-2) % Lymph # (Auto) (1.2-4.9) X10*3/uL Laurens # (Auto) (0.1-1.2) X10*3/uL Eos # (Auto) (0.0-0.4) X10*3/uL Baso # (Auto) (0.0-0.2) X10*3/uL Abs Immat Gran (auto) (0.00-0.03) X10*3/uL Absolute Neuts (auto) (2.0-8.3) x10*3/uL Absolute Nucleated RBC (0.0-0.012) X10*3/uL Nucleated RBC % (auto) (0.0-0.2) /100WBC VBG pH (7.32-7.43) VBG pCO2 mmHg VBG pO2 mmHg VBG HCO3 (22-26) mmol/L VBG O2 Saturation % VBG Base Excess mmol/L Sodium (135-145) mmol/L Potassium (3.3-5.1) mmol/L Chloride (96-108) mmol/L Carbon Dioxide (22-29) mmol/L Anion Gap (12-20) BUN (9-16) mg/dL Creatinine (0.5-1.4) mg/dL Estim Creat Clear Calc Estimated GFR Random Glucose (60-115) mg/dL Estimat Average Glucose mg/dL Hemoglobin A1c % % Lactic Acid 1.8 (0.5-2.0) mmol/L Calcium (8.4-10.2) mg/dL Magnesium (1.6-2.6) mg/dL Total Bilirubin (0.0-1.0) mg/dL AST (5-31) U/L ALT (0-31) U/L Alkaline Phosphatase (39-117) U/L Troponin I High Sens 32.5 H (<3.5-17.0) ng/L B-Natriuretic Peptide (<100) pg/mL Total Protein (6.5-8.0) g/dL Albumin (3.5-5.0) g/dL Procalcitonin 0.13 ng/mL Influenza Type A (PCR) (Negative) Influenza Type B (PCR) (Negative) RSV RNA Qual (PCR) (Negative) SARS-CoV-2 RNA (RT-PCR) (Negative) 09/28/22 09/28/22 09/28/22 Range/Units 12:37 12:38 12:42 WBC (4.8-10.8) X10*3/uL RBC (4.20-5.50) X10*6/uL Hgb (12.0-16.0) g/dl Hct (37.0-47.0) % MCV (80.0-98.0) fL MCH (27.0-33.0) pg MCHC (31.0-35.0) g/dl RDW (11.0-16.0) % Plt Count (160-400) X10*3/uL MPV (9.4-12.3) fL Immature Gran % (Auto) (0.0-0.4) % Neut % (Auto) (45-73) % Lymph % (Auto) (20-40) % Laurens % (Auto) (2-11) % Eos % (Auto) (0-4) % Baso % (Auto) (0-2) % Lymph # (Auto) (1.2-4.9) X10*3/uL Laurens # (Auto) (0.1-1.2) X10*3/uL Eos # (Auto) (0.0-0.4) X10*3/uL Baso # (Auto) (0.0-0.2) X10*3/uL Abs Immat Gran (auto) (0.00-0.03) X10*3/uL Absolute Neuts (auto) (2.0-8.3) x10*3/uL Absolute Nucleated RBC (0.0-0.012) X10*3/uL Nucleated RBC % (auto) (0.0-0.2) /100WBC VBG pH 7.40 (7.32-7.43) VBG pCO2 36 mmHg VBG pO2 70 mmHg VBG HCO3 23 (22-26) mmol/L VBG O2 Saturation 89.0 % VBG Base Excess -1.3 mmol/L Sodium (135-145) mmol/L Potassium (3.3-5.1) mmol/L Chloride (96-108) mmol/L Carbon Dioxide (22-29) mmol/L Anion Gap (12-20) BUN (9-16) mg/dL Creatinine (0.5-1.4) mg/dL Estim Creat Clear Calc Estimated GFR Random Glucose (60-115) mg/dL Estimat Average Glucose 140 mg/dL Hemoglobin A1c % 6.5 % Lactic Acid (0.5-2.0) mmol/L Calcium (8.4-10.2) mg/dL Magnesium (1.6-2.6) mg/dL Total Bilirubin (0.0-1.0) mg/dL AST (5-31) U/L ALT (0-31) U/L Alkaline Phosphatase (39-117) U/L Troponin I High Sens (<3.5-17.0) ng/L B-Natriuretic Peptide (<100) pg/mL Total Protein (6.5-8.0) g/dL Albumin (3.5-5.0) g/dL Procalcitonin ng/mL Influenza Type A (PCR) NEGATIVE (Negative) Influenza Type B (PCR) NEGATIVE (Negative) RSV RNA Qual (PCR) NEGATIVE (Negative) SARS-CoV-2 RNA (RT-PCR) NEGATIVE (Negative) Imaging Data Chest x-ray: Attestation: I personally reviewed and interpreted this imaging study as follows: My impression: Improving compared to previous study. Radiologist's impression: EXAMINATION: XR CHEST CLINICAL INFORMATION: Shortness of breath COMPARISON: 09/22/2022 TECHNIQUE: Frontal view of the chest was obtained. FINDINGS: Heart size borderline with slight distention of the pulmonary vessels but improved from the prior study. Lungs are better aerated today and considered normal. Continued follow-up advised. Sternal wires present. Left-sided pacer stable in position. XR/XR chest 1V IMPRESSION: Improving aeration. Dictated By: Timmy Nguyen MD Signed By: Electronically signed by Timmy Nguyen MD 09/28/22 1516 ECG Data Attestation: I personally reviewed and interpreted this ECG as follows: Prior ECG tracings: available for review Interpretation: Vent. Rate: 105 BPM ? ? Atrial Rate: 105 BPM P-R Int: 228 ms? QRS Dur: 110 ms QT Int: 350 ms ? ? ? P-R-T Axes: -16 099 263 degrees QTc Int: 462 ms ? Atrial-sensed ventricular-paced rhythm with prolonged AV conduction T-wave inversion in Inferior leads Lateral leads Abnormal ECG When compared with ECG of 22-SEP-2022 11:33, Vent. rate has increased BY? 28 BPM T-wave inversion in Lateral leads is new Electronically Signed By:HARITHA BRAVO MD Dictated By: Brendon Bravo MD Signed By: Electronically signed by Brendon Bravo MD 09/28/22 1545 Critical Care Time Critical Care Time Critical Care Time: Yes Total Critical Care Time: 30 Attestation: I spent 30 minutes of Critical Care Time with this patient. This does not include time spent on separately reported billable procedures. Discharge Plan Discharge Clinical Impression: Dyspnea, Hypoxia Patient Disposition: Admitted As Inpatient
--- NOTE | 2022-09-28 11:52 | ECG_ITS ---
Test Reason : SOB Blood Pressure : / mmHG Vent. Rate : 105 BPM Atrial Rate : 105 BPM P-R Int : 228 ms QRS Dur : 110 ms QT Int : 350 ms P-R-T Axes : -16 099 263 degrees QTc Int : 462 ms Atrial-sensed ventricular-paced rhythm with prolonged AV conduction T-wave inversion in Inferior leads Lateral leads Abnormal ECG When compared with ECG of 22-SEP-2022 11:33, Vent. rate has increased BY 28 BPM T-wave inversion in Lateral leads is new Referred By: Nel Canales Electronically Signed By:HARITHA BRAVO MD
[2022-09-28 11:54] VITALS: BP 140/78; BP 153/72; PULSE 109; PULSE 95; RESP 18; TEMP 38; O2SAT 100; O2SAT 94; BMI 31.6
[2022-09-28 12:46] LABS: MANUAL DIFF FLAG NO
[2022-09-28 12:48] LABS: VBG Base Excess -1.3 mmol/L; VBG HCO3 23 mmol/L (22-26); VBG pCO2 36 mmHg; VBG pO2 70 mmHg
[2022-09-28 12:48] LABS: Basophils Percent Auto 0.3 % (0-2); Eosinophils Absolute Auto 0.1 X10*3/uL (0.0-0.4); Eosinophils Percent Auto 0.9 % (0-4); Hematocrit 32.1 % (37.0-47.0); Imm Gran Abs Auto 0.08 X10*3/uL (0.00-0.03); Imm Gran Pct Auto 0.7 % (0.0-0.4); Lymphocytes Absolute Auto 0.6 X10*3/uL (1.2-4.9); Lymphocytes Percent Auto 5.3 % (20-40); Mean Corpuscular HGB Conc 31.2 g/dl (31.0-35.0); Mean Corpuscular Volume 99.4 fL (80.0-98.0); Mean Platelet Volume 9.9 fL (9.4-12.3); Monocytes Absolute Auto 0.5 X10*3/uL (0.1-1.2); Monocytes Percent Auto 4.1 % (2-11); Neutrophils Absolute Auto 10.2 x10*3/uL (2.0-8.3); Neutrophils Percent Auto 88.7 % (45-73); Platelet Count 266 X10*3/uL (160-400); Red Blood Count 3.23 X10*6/uL (4.20-5.50); Red Cell Distribution Width 13.9 % (11.0-16.0); White Blood Count 11.5 X10*3/uL (4.8-10.8)
[2022-09-28 12:49] LABS: Venous Blood Gas Refer to POC result
[2022-09-28 12:59] LABS: Lactic Acid 1.8 mmol/L (0.5-2.0)
[2022-09-28 13:05] LABS: Alanine Aminotransferase 36 U/L (0-31); Albumin Level 3.9 g/dL (3.5-5.0); Alkaline Phosphatase 97 U/L (39-117); Anion Gap 20 (12-20); Aspartate Amino Transferase 29 U/L (5-31); Bilirubin Total 0.5 mg/dL (0.0-1.0); Blood Urea Nitrogen 50 mg/dL (9-16); Calcium 8.4 mg/dL (8.4-10.2); Carbon Dioxide 22 mmol/L (22-29); Chloride 104 mmol/L (96-108); Creatinine Clr Calc Pharmacy 28.4; Estimated Glomerular Filt Rate 26; Glucose Random 170 mg/dL (60-115); Magnesium 2.1 mg/dL (1.6-2.6); Potassium 5.6 mmol/L (3.3-5.1); Sodium 140 mmol/L (135-145); Total Protein 7.4 g/dL (6.5-8.0)
[2022-09-28 13:11] LABS: B Type Natriuretic Peptide 632 pg/mL (<100); Troponin-I High Sensitivity 32.5 ng/L (<3.5-17.0)
[2022-09-28] MEDS: Albuterol Sulfate 7.5 MG, Albuterol/Iprat 2.5/0.5MG 3 ML 3 ML INHALE (13:11)
[2022-09-28 13:12] VITALS: PULSE 99; RESP 20; O2SAT 100
[2022-09-28 13:25] LABS: Influenza A PCR NEGATIVE (Negative); Influenza B PCR NEGATIVE (Negative); Resp Syncy Virus RNA Qual PCR NEGATIVE (Negative); SARS COV2 PCR INHOUSE NEGATIVE (Negative)
[2022-09-28] MEDS: Acetaminophen 325 MG TABLET 650 MG PO (13:36)
[2022-09-28] MEDS: dexAMETHasone sod phosphate 10 MG/ML VIAL IVPUSH (13:36)
[2022-09-28 17:40] LABS: Estimated Average Glucose 140 mg/dL; Hemoglobin A1c % 6.5 %
--- NOTE | 2022-09-28 17:45 | PM.IMHP ---
History of Present Illness Date of Service: 09/28/22 Chief Complaint: dyspnea 62yo F with CAD s/p CABG, prior CVA, HFpEF, PPM, COPD, CKD3, and autonomic instability who was just admitted here 09/22-09/23/22 for acute hypoxic respiratory failure due to RSV pneumonia with COPD exacerbation. She uses 2L of oxygen at night. She was discharged on a prednisone burst, which she just completed yesterday. However, since yesterday, she has had worsening dyspnea and wheezing along with cough. No fever at home, though in the ED here, her temperature was 100.4. No chest pain. Room air SaO2 was 86%. Venous pH 7.40, venous pCO2 36. K mildly elevated to 5.6. SCr 1.94 compared to 1.67 on 09/22. Influenza/RSV/Covid-19 PCR all negative. CXR showed normal aeration compared with 09/22. She had some difficulty breathing and diffuse rhonchi. She was given 7.5 mg Duoneb and 10 mg dexamethasone. Review of Systems Review of Systems: Yes all other systems are reviewed and are negative [facility] Medical History Acute heart failure with preserved ejection fraction Acute kidney injury superimposed on CKD Acute renal failure due to rhabdomyolysis Anemia Anxiety Arthritis C. difficile colitis Cardiac pacemaker in situ Carpal tunnel syndrome Chest pain CHF (congestive heart failure) Chronic heart failure with preserved ejection fraction (HFpEF) COPD exacerbation Coronary artery disease CVA (cerebral vascular accident) Diabetes Diabetic gastroparesis Diarrhea Fall Gastritis Gastroparesis Gastroparesis GERD (gastroesophageal reflux disease) Heart failure with preserved ejection fraction HLD (hyperlipidemia) HTN (hypertension) HTN (hypertension) Hypocalcemia Hypoxia IBS (irritable bowel syndrome) Knee pain, left Myocardial infarct Orthostasis Positive occult stool blood test Renal failure Rhabdomyolysis Suprapatellar effusion of knee T2DM (type 2 diabetes mellitus) UTI (urinary tract infection) Family History Father No problems noted. Mother Diabetes Hypercholesteremia Hypertension Stroke Surgical History H/O Achilles tendon repair History of appendectomy History of bladder surgery History of carpal tunnel release History of total hysterectomy with bilateral salpingo-oophorectomy (BSO) Hx of amputation Hx of CABG (~2019) Hx of cholecystectomy Hx of endoscopy Hx of knee surgery Hx of tonsillectomy Social History Household Members: Family Household Members Other:: Granddaughter Housing: Apartment Do you presently have visiting nurse or other home services: Yes Alcohol intake: former Patient Tobacco Use Status: Former Tobacco user Quit Date: 24 years ago Years Smoked: 20 Second Hand Smoke Exposure: No Advance Directives: Yes Advance Directives on File: Yes Advance Directives Date on File: 01/13/22 service: No Current occupational status: disabled Meds Allergies Allergy/AdvReac Type Severity Reaction Status Date / Time tetracycline [Tetracycline] Allergy Mild HIVES, Verified 08/14/22 14:41 anaphylaxis, anaphylaxis Active Medications: Current Medications Acetaminophen (Acetaminophen 325 Mg Tablet) 650 mg PO Q6H PRN PRN Reason: Pain, Mild (Pain Scale 1-3) Albuterol Sulfate (Albuterol Sulfate (0.083%) 2.5 Mg/3 Ml Vial.Neb) 2.5 mg INHALE Q2H PRN PRN Reason: Shortness of Breath/Wheezing Albuterol/Ipratropium (Albuterol/Iprat 2.5/0.5mg 3 Ml Ampul.Neb) 3 ml INHALE RQ4H WHILE AWAKE LAW Dextrose (Dextrose 50 % 25 Gm/50 Ml Syringe) 25 gm IVPUSH Q15M PRN; Protocol PRN Reason: per Hypoglycemia Standing Ord. Enoxaparin Sodium (Enoxaparin Sodium 30 Mg/0.3 Ml Syringe) 30 mg SUBCUT Q24H LAW Glucose (Glucose Gel 15 Gm Gel..Gram.) 15 gm PO Q15M PRN; Protocol PRN Reason: per Hypoglycemia Standing Ord. Insulin Human Lispro (Insulin Lispro 100 Unit/Ml 3 Ml Vial) 0 unit SUBCUT QIDACHS LAW; Protocol Methylprednisolone Sodium Succinate (Methylprednisolone Sod Succ 40 Mg/Ml Vial) 40 mg IVPUSH Q12H LAW Ondansetron HCl (Ondansetron Hcl 4 Mg/2 Ml Vial) 4 mg IVPUSH Q8H PRN PRN Reason: Nausea and Vomiting Pharmacy Consult (Consult Rx Perform Med Rec) 1 each MISCELLANE ONCE PRN PRN Reason: Consult order Pharmacy Consult (Consult Rx Perform Med Rec) 1 each MISCELLANE STAT STA Stop: 09/28/22 17:11 Sodium Chloride (0.9 % Sodium Chloride Flush 3 Ml Syringe) 3 [facility] Medications Medication Instructions Recorded Confirmed Last Taken Type blood sugar diagnostic (FreeStyle 07/14/22 09/22/22 Unknown History Lite Strips) gabapentin 100 mg capsule 2 cap PO TID 07/14/22 09/22/22 Unknown History insulin aspart U-100 100 unit/mL 8 unit subcut TIDAC 07/14/22 09/22/22 Unknown History (3 mL) subcutaneous pen (Novolog Flexpen U-100 Insulin aspart) insulin degludec 100 unit/mL (3 32 unit subcut DAILY 07/14/22 09/22/22 Unknown History mL) subcutaneous pen (Tresiba FlexTouch U-100 insulin) linagliptin 5 mg tablet (Tradjenta) 1 tab PO DAILY 07/14/22 09/22/22 Unknown History lorazepam 0.5 mg tablet 1 tab PO BID PRN Anxiety 07/14/22 09/22/22 Unknown History melatonin 5 mg tablet 1 tab PO BEDTIME 07/14/22 09/22/22 Unknown History sodium zirconium cyclosilicate 5 1 ea PO Q48H 07/14/22 09/22/22 Unknown History gram oral powder packet (Lokelma) trazodone 50 mg tablet 0.5 tab PO BEDTIME PRN Insomnia 07/14/22 09/22/22 Unknown History allopurinol 100 mg tablet 100 mg PO DAILY 08/20/22 09/22/22 Unknown History aspirin 81 mg tablet,delayed 81 mg PO DAILY 08/20/22 09/22/22 Unknown History release atorvastatin 80 mg tablet 80 mg PO BEDTIME 08/20/22 09/22/22 Unknown History cetirizine 10 mg tablet 10 mg PO DAILY 08/20/22 09/22/22 Unknown History cholecalciferol (vitamin D3) 25 25 mcg PO DAILY 08/20/22 09/22/22 Unknown History mcg (1,000 unit) capsule clopidogrel 75 mg tablet 75 mg PO DAILY 08/20/22 09/22/22 Unknown History ferrous sulfate 325 mg (65 mg 325 mg PO DAILY 08/20/22 09/22/22 Unknown History iron) tablet (FeroSul) hydralazine 25 mg tablet 25 mg PO BEDTIME PRN Blood Pressure 08/20/22 09/22/22 Unknown History isosorbide mononitrate 30 mg 30 mg PO DAILY 08/20/22 09/22/22 Unknown History tablet,extended release 24 hr metoclopramide HCl 5 mg tablet 5 mg PO TID 08/20/22 09/22/22 Unknown History pantoprazole 40 mg tablet,delayed 40 mg PO BID 08/20/22 09/22/22 Unknown History release tamsulosin 0.4 mg capsule 0.4 mg PO DAILY 08/20/22 09/22/22 Unknown History ammonium lactate 12 % lotion 1 applic topical BID PRN Dry Skin 09/12/22 09/22/22 Unknown History clotrimazole-betamethasone 1 1 appl topical BID 09/12/22 09/22/22 Unknown History %-0.05 % topical cream fluticasone furoate 100 1 puff inhalation DAILY 09/12/22 09/22/22 Unknown History mcg-vilanterol 25 mcg/dose inhalation powder (Breo Ellipta) nitroglycerin 0.4 mg sublingual 0.4 mg sublingual Q5M chest pain 09/12/22 09/22/22 Unknown History tablet nystatin 100,000 unit/gram topical 1 applic topical BID 09/12/22 09/22/22 Unknown History powder metoprolol succinate 25 mg 25 mg PO DAILY 09/22/22 09/22/22 Unknown History tablet,extended release 24 hr Physical Exam Vital Signs and Narrative: Vital Signs: Last Vital Signs Temp 100.4 F 09/28/22 11:54 Pulse 99 09/28/22 13:12 Resp 20 09/28/22 13:12 BP 153/72 H 09/28/22 11:54 Pulse Ox 100 09/28/22 11:54 O2 Del Method 09/28/22 11:54 BMI result Body Mass Index 31.6 Gen: ill-appearing HEENT: sclera anicteric, moist mucus membranes Neck: supple Lungs: diffuse inspiratory rhonchi and expiratory wheezing Heart: tachycardic, no murmurs Abd: soft, non-tender, non-distended Ext: no edema Skin: warm/well-perfused Neuro: alert and oriented x3, no focal findings Psych: appropriate affect Results Labs CBC and Chem 7: 09/28/22 12:37 09/28/22 12:37 Labs: Laboratory Results - last 24 hr 09/28/22 09/28/22 09/28/22 12:37 12:37 12:37 MCV 99.4 H MCH 31.0 MCHC 31.2 RDW 13.9 Plt Count 266 MPV 9.9 Immature Gran % (Auto) 0.7 H Neut % (Auto) 88.7 H Lymph % (Auto) 5.3 L [place] % (Auto) 4.1 Eos % (Auto) 0.9 Baso % (Auto) 0.3 Lymph # (Auto) 0.6 L [place] # (Auto) 0.5 Eos # (Auto) 0.1 Baso # (Auto) 0.0 Abs Immat Gran (auto) 0.08 H Absolute Neuts (auto) 10.2 H Absolute Nucleated RBC 0.000 Nucleated RBC % (auto) 0.0 VBG pH VBG pCO2 VBG pO2 VBG HCO3 VBG O2 Saturation VBG Base Excess Anion Gap 20 Estim Creat Clear Calc 28.4 Estimated GFR 26 Random Glucose 170 H Estimat Average Glucose Hemoglobin A1c % Lactic Acid Calcium 8.4 Magnesium 2.1 Total Bilirubin 0.5 AST 29 ALT 36 H Alkaline Phosphatase 97 Troponin I High Sens B-Natriuretic Peptide 632 H Total Protein 7.4 Albumin 3.9 Influenza Type A (PCR) Influenza Type B (PCR) RSV RNA Qual (PCR) SARS-CoV-2 RNA (RT-PCR) 09/28/22 09/28/22 09/28/22 12:37 12:37 12:37 MCV MCH MCHC RDW Plt Count MPV Immature Gran % (Auto) Neut % (Auto) Lymph % (Auto) [place] % (Auto) Eos % (Auto) Baso % (Auto) Lymph # (Auto) [place] # (Auto) Eos # (Auto) Baso # (Auto) Abs Immat Gran (auto) Absolute Neuts (auto) Absolute Nucleated RBC Nucleated RBC % (auto) VBG pH VBG pCO2 VBG pO2 VBG HCO3 VBG O2 Saturation VBG Base Excess Anion Gap Estim Creat Clear Calc Estimated GFR Random Glucose Estimat Average Glucose 140 Hemoglobin A1c % 6.5 Lactic Acid 1.8 Calcium Magnesium Total Bilirubin AST ALT Alkaline Phosphatase Troponin I High Sens 32.5 H B-Natriuretic Peptide Total Protein Albumin Influenza Type A (PCR) Influenza Type B (PCR) RSV RNA Qual (PCR) SARS-CoV-2 RNA (RT-PCR) 09/28/22 09/28/22 12:38 12:42 MCV MCH MCHC RDW Plt Count MPV Immature Gran % (Auto) Neut % (Auto) Lymph % (Auto) [place] % (Auto) Eos % (Auto) Baso % (Auto) Lymph # (Auto) [place] # (Auto) Eos # (Auto) Baso # (Auto) Abs Immat Gran (auto) Absolute Neuts (auto) Absolute Nucleated RBC Nucleated RBC % (auto) VBG pH 7.40 VBG pCO2 36 VBG pO2 70 VBG HCO3 23 VBG O2 Saturation 89.0 VBG Base Excess -1.3 Anion Gap Estim Creat Clear Calc Estimated GFR Random Glucose Estimat Average Glucose Hemoglobin A1c % Lactic Acid Calcium Magnesium Total Bilirubin AST ALT Alkaline Phosphatase Troponin I High Sens B-Natriuretic Peptide Total Protein Albumin Influenza Type A (PCR) NEGATIVE Influenza Type B (PCR) NEGATIVE RSV RNA Qual (PCR) NEGATIVE SARS-CoV-2 RNA (RT-PCR) NEGATIVE Imaging Radiologist's Impressions: Impressions Chest X-Ray 09/28/22 14:45 IMPRESSION: Improving aeration. Assessment and Plan (1) COPD exacerbation: Status: Acute (2) Acute hypoxemic respiratory failure: Status: Acute Plan 62yo F with CAD s/p CABG, prior CVA, HFpEF, PPM, COPD, CKD3, and autonomic instability?with recent admission for RSV pneumonia causing COPD exacerbation and acute/chronic hypoxemia. She just finished her steroids yesterday and presents with worsening dyspnea and wheezing. # COPD exacerbation - admit to M/S, give IV methlyprednisolone 40 mg q12h and wean gradually, give standing/prn nebs. check PCT though no purulent sputum to suggest bacterial superinfection at this point. # hyperK, mild - on chronic SZC- increase dose; recheck K in AM # Tn-I indeterminate - suspect due to renal insufficiency; consistent with prior levels; recheck level now # DM2 - basal/bolus insulin # CAD # HLD # prior CVA # chronic HFpEF - continue statin, DAPT, metoprolol succinate, Imdur # DM gastroparesis - metoclopramide # VTE prophylaxis: LMWH renally-dosed # code status: full I anticipate that the patient will stay at least 2 midnights as an inpatient in the hospital due to the above reasons. It is neither reasonable nor safe to care for them in a less acute setting. Quality Stroke Does the patient have a stroke diagnosis?: No VTE Prior VTE?: No VTE Risk Level:: Medical - moderate - high VTE Device Contraindication: N/A - Device Ordered VTE Drug Contraindication: N/A - Med Ordered
[2022-09-28] MEDS: Sodium Zirconium Cyclosilicate 10 GM POWD.PACK PO ×2 (17:46→19:17)
[2022-09-28] MEDS: Enoxaparin Sodium 30 MG/0.3 ML SYRINGE SUBCUT (17:46)
[2022-09-28] MEDS: methylPREDNISolone Sod Succ 40 MG/ML VIAL IVPUSH (17:47)
[2022-09-28 18:03] LABS: Procalcitonin 0.13 ng/mL
[2022-09-28 18:27] LABS: Troponin-I High Sensitivity 27.7 ng/L (<3.5-17.0)
--- NOTE | 2022-09-28 19:14 | PHA.MEDREC ---
Pharmacy Consult ? Medication Reconciliation Pharmacy has completed the medication reconciliation.
[2022-09-28 20:26] VITALS: BP 131/72; PULSE 90; RESP 16; TEMP 36.4; O2SAT 95
[2022-09-28 20:58] LABS: Glucose, Whole Blood 288 mg/dL (60-115)
[2022-09-28] MEDS: Atorvastatin Calcium 80 MG TABLET PO (21:15)
[2022-09-28] MEDS: Melatonin 3 MG TABLET 6 MG PO (21:15)
[2022-09-28] MEDS: Insulin Glargine,Hum.rec.anlog 100 UNIT/ML 10 ML VIAL 20 UNIT SUBCUT (21:15)
--- NOTE | 2022-09-28 22:09 | MHC.CM.PN ---
IMM 09/28. [place] [facility] [place]. Lives with granddaughter/HCP June Malik ([phone]). PCP: Pt cannot remember name. Has cane/wheeled walker and prn home Oxygen at night, 2L. 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 [employer] x3. [facility] insurance/ D/C plan: Home with existing services. Referral placed to [facility] to follow in [facility] [place]. Will need transportation home. Uses chair van. Call [facility] for transportation home. CM to follow for d/c needs.
[2022-09-28] MEDS: Insulin Lispro 100 UNIT/ML 3 ML VIAL SUBCUT (22:22)
[2022-09-29] VITALS (7 sets, daily range): BP systolic 149–199; BP diastolic 70–84; PULSE 76–98; RESP 15–20; TEMP 36.3–37; O2SAT 93–99
[2022-09-29] MEDS: methylPREDNISolone Sod Succ 40 MG/ML VIAL IVPUSH ×2 (05:56→16:57)
[2022-09-29] MEDS: Omeprazole 20 MG CAPSULE.DR PO ×2 (05:56→16:56)
[2022-09-29] MEDS: Metoprolol Succinate ER 25 MG TAB.ER.24H PO (06:01)
[2022-09-29] MEDS: LORazepam 0.5 MG TABLET PO (06:01)
[2022-09-29 07:13] LABS: Hematocrit 32.8 % (37.0-47.0); Hemoglobin 10.6 g/dl (12.0-16.0); Mean Corpuscular HGB Conc 32.3 g/dl (31.0-35.0); Mean Corpuscular Hemoglobin 30.9 pg (27.0-33.0); Mean Corpuscular Volume 95.6 fL (80.0-98.0); Mean Platelet Volume 11.1 fL (9.4-12.3); Platelet Count 252 X10*3/uL (160-400); Red Blood Count 3.43 X10*6/uL (4.20-5.50); Red Cell Distribution Width 13.4 % (11.0-16.0); White Blood Count 8.2 X10*3/uL (4.8-10.8)
[2022-09-29 07:22] LABS: Glucose, Whole Blood 155 mg/dL (60-115)
[2022-09-29 07:27] LABS: Anion Gap 19 (12-20); Blood Urea Nitrogen 45 mg/dL (9-16); Calcium 8.5 mg/dL (8.4-10.2); Carbon Dioxide 21 mmol/L (22-29); Chloride 104 mmol/L (96-108); Creatinine Clr Calc Pharmacy 39.4; Estimated Glomerular Filt Rate 38; Glucose Random 172 mg/dL (60-115); Potassium 5.1 mmol/L (3.3-5.1); Sodium 139 mmol/L (135-145)
[2022-09-29] MEDS: Albuterol/Iprat 2.5/0.5MG 3 ML AMPUL.NEB INHALE ×3 (08:27→16:35)
[2022-09-29] MEDS: Ferrous Sulfate 324 MG TABLET.DR PO (08:30)
[2022-09-29] MEDS: Isosorbide Mononitrate 30 MG TAB.ER.24H PO (08:31)
[2022-09-29] MEDS: Aspirin 81 MG TAB.CHEW PO (08:31)
[2022-09-29] MEDS: Metoclopramide HCl 5 MG TABLET PO ×3 (08:31→16:57)
[2022-09-29] MEDS: Clopidogrel Bisulfate 75 MG TABLET PO (08:31)
[2022-09-29] MEDS: allopurinoL 100 MG TABLET PO (08:31)
[2022-09-29] MEDS: Tamsulosin HCL 0.4 MG CAPSULE PO (08:32)
[2022-09-29] MEDS: Cholecalciferol (Vitamin D3) 25 MCG TABLET PO (08:32)
[2022-09-29] MEDS: Insulin Lispro 100 UNIT/ML 3 ML VIAL SUBCUT ×4 (08:34→21:31)
[2022-09-29] MEDS: 0.9 % Sodium Chloride Flush 3 ML SYRINGE IVFLUSH ×2 (08:36→14:26)
[2022-09-29 11:50] LABS: Glucose, Whole Blood 308 mg/dL (60-115)
--- NOTE | 2022-09-29 12:46 | HO.PM.IMPN ---
Subjective Subjective Date of Service: 09/29/22 Interval History: Seen in f/u for acute hypoxic respiratory failure d/t copd exacervation Overall improved but still with some difficult with breathing Review of Systems +sob some cough no fever or chills Physical Exam Vital Signs: Vital Signs: Last Vital Signs Temp 97.9 F 09/29/22 12:01 Pulse 98 09/29/22 12:32 Resp 20 09/29/22 12:32 BP 152/84 H 09/29/22 12:01 Pulse Ox 96 09/29/22 12:01 O2 Del Method 09/29/22 12:01 O2 Flow Rate 2 09/29/22 05:52 BMI result Body Mass Index 31.6 Const: Other: General: AO X 3, no acute distress Resp: wheezing and more than usual effort to breath CVS: S1,S2,RRR, 1+ leg edema GI: +BS, NT, no distention Skin: No rash Neuro: motor grossly intact Psych: appropriate affect Objective Data Active Medications Acetaminophen (Acetaminophen 325 Mg Tablet) 650 mg PO Q6H PRN PRN Reason: Pain, Mild (Pain Scale 1-3) Albuterol Sulfate (Albuterol Sulfate (0.083%) 2.5 Mg/3 Ml Vial.Neb) 2.5 mg INHALE Q2H PRN PRN Reason: Shortness of Breath/Wheezing Albuterol/Ipratropium (Albuterol/Iprat 2.5/0.5mg 3 Ml Ampul.Neb) 3 ml INHALE RQ4H WHILE AWAKE [facility] Last Admin: 09/29/22 12:32 Dose: 3 ml Documented By: JERARDO Allopurinol (Allopurinol 100 Mg Tablet) 100 mg PO DAILY [facility] Last Admin: 09/29/22 08:31 Dose: 100 mg Documented By: KIRSTY Aspirin (Aspirin 81 Mg Tab.Chew) 81 mg PO DAILY [facility] Last Admin: 09/29/22 08:31 Dose: 81 mg Documented By: KIRSTY Atorvastatin Calcium (Atorvastatin Calcium 80 Mg Tablet) 80 mg PO BEDTIME [facility] Last Admin: 09/28/22 21:15 Dose: 80 mg Documented By: ROXANNA Clopidogrel Bisulfate (Clopidogrel Bisulfate 75 Mg Tablet) 75 mg PO DAILY [facility] Last Admin: 09/29/22 08:31 Dose: 75 mg Documented By: KIRSTY Dextrose (Dextrose 50 % 25 Gm/50 Ml Syringe) 25 gm IVPUSH Q15M PRN; Protocol PRN Reason: per Hypoglycemia Standing Ord. Enoxaparin Sodium (Enoxaparin Sodium 30 Mg/0.3 Ml Syringe) 30 mg SUBCUT Q24H [facility] Last Admin: 09/28/22 17:46 Dose: 30 mg Documented By: ANDRE Ferrous Sulfate (Ferrous Sulfate 324 Mg Tablet.Dr) 324 mg PO DAILY [facility] Last Admin: 09/29/22 08:30 Dose: 324 mg Documented By: KIRSTY Fluticasone/Vilanterol (Fluticasone/Vilanterol 100/25 Blst.W.Dev) 1 puff INHALE RDAILY [facility] Last Admin: 09/29/22 08:36 Dose: Not Given Documented By: KIRSTY Non-Admin Reason: Patient Refused Glucose (Glucose Gel 15 Gm Gel..Gram.) 15 gm PO Q15M PRN; Protocol PRN Reason: per Hypoglycemia Standing Ord. Hydralazine HCl (Hydralazine Hcl 25 Mg Tablet) 25 mg PO BEDTIME PRN; Protocol PRN Reason: BP>180/100 Insulin Glargine (Insulin Glargine,Hum.Rec.Anlog 100 Unit/Ml 10 Ml Vial) 20 unit SUBCUT BEDTIME [facility] Last Admin: 09/28/22 21:15 Dose: 20 unit Documented By: ROXANNA Insulin Human Lispro (Insulin Lispro 100 Unit/Ml 3 Ml Vial) 0 unit SUBCUT QIDACHS [facility]; Protocol Last Admin: 09/29/22 12:22 Dose: 8 unit Documented By: KIRSTY Isosorbide Mononitrate (Isosorbide Mononitrate 30 Mg Tab.Er.24h) 30 mg PO DAILY [facility]; Protocol Last Admin: 09/29/22 08:31 Dose: 30 mg Documented By: KIRSTY Lorazepam (Lorazepam 0.5 Mg Tablet) 0.5 mg PO BID PRN PRN Reason: angxiety Last Admin: 09/29/22 06:01 Dose: 0.5 mg Documented By: ELEAZAR Melatonin (Melatonin 3 Mg Tablet) 6 mg PO BEDTIME [facility] Last Admin: 09/28/22 21:15 Dose: 6 mg Documented By: ROXANNA Methylprednisolone Sodium Succinate (Methylprednisolone Sod Succ 40 Mg/Ml Vial) 40 mg IVPUSH Q12H [facility] Last Admin: 09/29/22 05:56 Dose: 40 mg Documented By: ELEAZAR Metoclopramide HCl (Metoclopramide Hcl 5 Mg Tablet) 5 mg PO TIDAC [facility] Last Admin: 09/29/22 12:21 Dose: 5 mg Documented By: KIRSTY Metoprolol Succinate (Metoprolol Succinate Er 25 Mg Tab.Er.24h) 25 mg PO DAILY [facility]; Protocol Last Admin: 09/29/22 06:01 Dose: 25 mg Documented By: ELEAZAR Nitroglycerin (Nitroglycerin 0.4 Mg Tab.Subl) 0.4 mg SUBLINGUAL Q5MX3 PRN PRN Reason: chest PAIN Omeprazole (Omeprazole 20 Mg Capsule.Dr) 20 mg PO BID@0630,1630 [facility] Last Admin: 09/29/22 05:56 Dose: 20 mg Documented By: ELEAZAR Ondansetron HCl (Ondansetron Hcl 4 Mg/2 Ml Vial) 4 mg IVPUSH Q8H PRN PRN Reason: Nausea and Vomiting Sodium Chloride (0.9 % Sodium Chloride Flush 3 Ml Syringe) 3 ml IVFLUSH QSHIFT [facility] Last Admin: 09/29/22 08:36 Dose: 3 ml Documented By: KIRSTY Sodium Zirconium Cyclosilicate (Sodium Zirconium Cyclosilicate 10 Gm Powd.Pack) 10 gm PO Q48H [facility] Tamsulosin HCl (Tamsulosin Hcl 0.4 Mg Capsule) 0.4 mg PO DAILY [facility] Last Admin: 09/29/22 08:32 Dose: 0.4 mg Documented By: KIRSTY Trazodone HCl (Trazodone Hcl 25 Mg Halftab) 25 mg PO BEDTIME PRN PRN Reason: insomnia Vitamin D (Cholecalciferol (Vitamin D3) 25 Mcg Tablet) 25 mcg PO DAILY [facility] Last Admin: 09/29/22 08:32 Dose: 25 mcg Documented By: KIRSTY Labs CBC & Chem 7: 09/29/22 06:42 09/29/22 06:42 Labs: Laboratory Results - last 24 hr 09/28/22 09/28/22 09/28/22 12:37 12:37 12:37 MCV 99.4 H MCH 31.0 MCHC 31.2 RDW 13.9 Plt Count 266 MPV 9.9 Immature Gran % (Auto) 0.7 H Neut % (Auto) 88.7 H Lymph % (Auto) 5.3 L [place] % (Auto) 4.1 Eos % (Auto) 0.9 Baso % (Auto) 0.3 Lymph # (Auto) 0.6 L [place] # (Auto) 0.5 Eos # (Auto) 0.1 Baso # (Auto) 0.0 Abs Immat Gran (auto) 0.08 H Absolute Neuts (auto) 10.2 H Absolute Nucleated RBC 0.000 Nucleated RBC % (auto) 0.0 VBG pH VBG pCO2 VBG pO2 VBG HCO3 VBG O2 Saturation VBG Base Excess Anion Gap 20 Estim Creat Clear Calc 28.4 Estimated GFR 26 POC Glucose Random Glucose 170 H Estimat Average Glucose Hemoglobin A1c % Lactic Acid Calcium 8.4 Magnesium 2.1 Total Bilirubin 0.5 AST 29 ALT 36 H Alkaline Phosphatase 97 Troponin I High Sens B-Natriuretic Peptide 632 H Total Protein 7.4 Albumin 3.9 Procalcitonin Influenza Type A (PCR) Influenza Type B (PCR) RSV RNA Qual (PCR) SARS-CoV-2 RNA (RT-PCR) 09/28/22 09/28/22 09/28/22 12:37 12:37 12:37 MCV MCH MCHC RDW Plt Count MPV Immature Gran % (Auto) Neut % (Auto) Lymph % (Auto) [place] % (Auto) Eos % (Auto) Baso % (Auto) Lymph # (Auto) [place] # (Auto) Eos # (Auto) Baso # (Auto) Abs Immat Gran (auto) Absolute Neuts (auto) Absolute Nucleated RBC Nucleated RBC % (auto) VBG pH VBG pCO2 VBG pO2 VBG HCO3 VBG O2 Saturation VBG Base Excess Anion Gap Estim Creat Clear Calc Estimated GFR POC Glucose Random Glucose Estimat Average Glucose Hemoglobin A1c % Lactic Acid 1.8 Calcium Magnesium Total Bilirubin AST ALT Alkaline Phosphatase Troponin I High Sens 32.5 H B-Natriuretic Peptide Total Protein Albumin Procalcitonin 0.13 Influenza Type A (PCR) Influenza Type B (PCR) RSV RNA Qual (PCR) SARS-CoV-2 RNA (RT-PCR) 09/28/22 09/28/22 09/28/22 12:37 12:38 12:42 MCV MCH MCHC RDW Plt Count MPV Immature Gran % (Auto) Neut % (Auto) Lymph % (Auto) [place] % (Auto) Eos % (Auto) Baso % (Auto) Lymph # (Auto) [place] # (Auto) Eos # (Auto) Baso # (Auto) Abs Immat Gran (auto) Absolute Neuts (auto) Absolute Nucleated RBC Nucleated RBC % (auto) VBG pH 7.40 VBG pCO2 36 VBG pO2 70 VBG HCO3 23 VBG O2 Saturation 89.0 VBG Base Excess -1.3 Anion Gap Estim Creat Clear Calc Estimated GFR POC Glucose Random Glucose Estimat Average Glucose 140 Hemoglobin A1c % 6.5 Lactic Acid Calcium Magnesium Total Bilirubin AST ALT Alkaline Phosphatase Troponin I High Sens B-Natriuretic Peptide Total Protein Albumin Procalcitonin Influenza Type A (PCR) NEGATIVE Influenza Type B (PCR) NEGATIVE RSV RNA Qual (PCR) NEGATIVE SARS-CoV-2 RNA (RT-PCR) NEGATIVE 09/28/22 09/28/22 09/29/22 17:58 20:55 06:42 MCV 95.6 MCH 30.9 MCHC 32.3 RDW 13.4 Plt Count 252 MPV 11.1 Immature Gran % (Auto) Neut % (Auto) Lymph % (Auto) [place] % (Auto) Eos % (Auto) Baso % (Auto) Lymph # (Auto) [place] # (Auto) Eos # (Auto) Baso # (Auto) Abs Immat Gran (auto) Absolute Neuts (auto) Absolute Nucleated RBC 0.000 Nucleated RBC % (auto) 0.0 VBG pH VBG pCO2 VBG pO2 VBG HCO3 VBG O2 Saturation VBG Base Excess Anion Gap Estim Creat Clear Calc Estimated GFR POC Glucose 288 H Random Glucose Estimat Average Glucose Hemoglobin A1c % Lactic Acid Calcium Magnesium Total Bilirubin AST ALT Alkaline Phosphatase Troponin I High Sens 27.7 H B-Natriuretic Peptide Total Protein Albumin Procalcitonin Influenza Type A (PCR) Influenza Type B (PCR) RSV RNA Qual (PCR) SARS-CoV-2 RNA (RT-PCR) 09/29/22 09/29/22 09/29/22 06:42 07:13 11:40 MCV MCH MCHC RDW Plt Count MPV Immature Gran % (Auto) Neut % (Auto) Lymph % (Auto) [place] % (Auto) Eos % (Auto) Baso % (Auto) Lymph # (Auto) [place] # (Auto) Eos # (Auto) Baso # (Auto) Abs Immat Gran (auto) Absolute Neuts (auto) Absolute Nucleated RBC Nucleated RBC % (auto) VBG pH VBG pCO2 VBG pO2 VBG HCO3 VBG O2 Saturation VBG Base Excess Anion Gap 19 Estim Creat Clear Calc 39.4 Estimated GFR 38 POC Glucose 155 H 308 H Random Glucose 172 H Estimat Average Glucose Hemoglobin A1c % Lactic Acid Calcium 8.5 Magnesium Total Bilirubin AST ALT Alkaline Phosphatase Troponin I High Sens B-Natriuretic Peptide Total Protein Albumin Procalcitonin Influenza Type A (PCR) Influenza Type B (PCR) RSV RNA Qual (PCR) SARS-CoV-2 RNA (RT-PCR) Assessment and Plan (1) COPD exacerbation: Status: Acute (2) Acute hypoxemic respiratory failure: Status: Acute Plan 62yo F with CAD s/p CABG, prior CVA, HFpEF, PPM, COPD, CKD3, and autonomic instability?with recent admission for RSV pneumonia causing COPD exacerbation and acute/chronic hypoxemia. She just finished her steroids yesterday and presents with worsening dyspnea and wheezing. # COPD exacerbation--clinically improved but some difficulty with breathign still - give IV methlyprednisolone 40 mg q12h and wean gradually, give standing/prn nebs. check PCT though no purulent sputum to suggest bacterial superinfection at this point. # hyperK, mild and resolved - on chronic SZC- # Tn-I indeterminate - suspect due to renal insufficiency; consistent with prior levels; recheck level now # DM2 - basal/bolus insulin # CAD # HLD # prior CVA # chronic HFpEF - continue statin, DAPT, metoprolol succinate, Imdur # DM gastroparesis - metoclopramide # VTE prophylaxis: LMWH renally-dosed # code status: full Need for inaptient: acute resp failure needing IV steroid still and not yet optimal for DC Quality Stroke Does the patient have a stroke diagnosis?: No VTE Prior VTE?: No VTE Risk Level:: Medical - moderate - high VTE Device Contraindication: N/A - Device Ordered VTE Drug Contraindication: N/A - Med Ordered
[2022-09-29] MEDS: Furosemide 40 MG TABLET PO (13:47)
[2022-09-29] MEDS: Gabapentin 100 MG CAPSULE 200 MG PO ×2 (14:25→21:32)
[2022-09-29 16:45] LABS: Glucose, Whole Blood 258 mg/dL (60-115)
[2022-09-29] MEDS: Enoxaparin Sodium 30 MG/0.3 ML SYRINGE SUBCUT (16:57)
[2022-09-29] MEDS: Insulin Lispro 100 UNIT/ML 3 ML VIAL 8 UNIT SUBCUT (17:02)
[2022-09-29 21:06] LABS: Glucose, Whole Blood 244 mg/dL (60-115)
[2022-09-29] MEDS: Insulin Glargine,Hum.rec.anlog 100 UNIT/ML 10 ML VIAL 20 UNIT SUBCUT (21:31)
[2022-09-29] MEDS: Atorvastatin Calcium 80 MG TABLET PO (21:32)
[2022-09-29] MEDS: Melatonin 3 MG TABLET 6 MG PO (21:32)
[2022-09-29] MEDS: Nystatin Powder 15 GM BOTTLE 1 APPL TOPICAL (22:47)
[2022-09-30] VITALS (11 sets, daily range): BP systolic 118–206; BP diastolic 74–84; PULSE 68–81; RESP 16–20; TEMP 36.4–36.6; O2SAT 94–99
[2022-09-30] MEDS: 0.9 % Sodium Chloride Flush 3 ML SYRINGE IVFLUSH ×2 (00:34→10:22)
[2022-09-30] MEDS: methylPREDNISolone Sod Succ 40 MG/ML VIAL IVPUSH (05:28)
[2022-09-30] MEDS: Omeprazole 20 MG CAPSULE.DR PO ×2 (05:28→15:45)
--- NOTE | 2022-09-30 05:33 | PC.NURSE ---
pt medicated according to aman. FRANCINE R neck flushes with some resistance, flushed before and after med administration
--- NOTE | 2022-09-30 05:35 | PC.NURSE ---
pt provided with warm blanket at this time. verbalized no additional needs at this time
--- NOTE | 2022-09-30 06:56 | PC.NURSE ---
VS assessed this morning automatic BP 200s/70s. 2 manual BP assessed on both L and R arms 118/78 and 120/80. MD Dr. Rose made aware no new orders at this time
[2022-09-30] MEDS: Albuterol/Iprat 2.5/0.5MG 3 ML AMPUL.NEB INHALE ×3 (07:43→15:52)
[2022-09-30 07:44] LABS: Glucose, Whole Blood 207 mg/dL (60-115)
--- NOTE | 2022-09-30 08:09 | PC.NURSE ---
Addendum entered by Kirill Tena 09/30/22 09:05: Dr. Proctor instructed to give long acting insulin at same time Original Note: Dr. Christopher instructed to give the sliding scale insulin as well as the ordered 8 units
[2022-09-30] MEDS: Insulin Lispro 100 UNIT/ML 3 ML VIAL SUBCUT ×2 (08:50→14:45)
[2022-09-30] MEDS: Insulin Lispro 100 UNIT/ML 3 ML VIAL 8 UNIT SUBCUT ×3 (08:50→18:42)
[2022-09-30] MEDS: Metoclopramide HCl 5 MG TABLET PO ×2 (08:51→13:38)
[2022-09-30] MEDS: Tamsulosin HCL 0.4 MG CAPSULE PO (08:51)
[2022-09-30] MEDS: allopurinoL 100 MG TABLET PO (08:51)
[2022-09-30] MEDS: Clopidogrel Bisulfate 75 MG TABLET PO (08:52)
[2022-09-30] MEDS: Cholecalciferol (Vitamin D3) 25 MCG TABLET PO (08:52)
[2022-09-30] MEDS: Metoprolol Succinate ER 25 MG TAB.ER.24H PO (08:52)
[2022-09-30] MEDS: Isosorbide Mononitrate 30 MG TAB.ER.24H PO (08:52)
[2022-09-30] MEDS: Gabapentin 100 MG CAPSULE 200 MG PO ×2 (08:52→15:48)
[2022-09-30] MEDS: Ferrous Sulfate 324 MG TABLET.DR PO (08:53)
[2022-09-30] MEDS: Furosemide 40 MG TABLET PO (08:53)
[2022-09-30] MEDS: Aspirin 81 MG TAB.CHEW PO (08:53)
--- NOTE | 2022-09-30 09:03 | PC.NURSE ---
Dr. Proctor at [facility] while BP taken
--- NOTE | 2022-09-30 09:23 | PM.DS ---
DS: Providers Provider Date of Service: 09/30/22 Date of admission: 09/28/22 17:29 Primary care physician: Unknown Physician DS: Diagnosis Discharge Diagnosis (1) COPD exacerbation: Status: Resolved (2) Acute hypoxemic respiratory failure: Status: Resolved DS: Summary Hospital Course Hospital Course: Chief Complaint: dyspnea 62yo F with CAD s/p CABG, prior CVA, HFpEF, PPM,? COPD, CKD3, and autonomic instability who was just admitted here 09/22-09/23/22 for acute hypoxic respiratory failure due to RSV pneumonia with COPD exacerbation.? She uses 2L of oxygen at night.? She was discharged on a prednisone burst, which she just completed yesterday.? However, since yesterday, she has had worsening dyspnea and wheezing along with cough.? No fever at home, though in the ED here, her temperature was 100.4.? No chest pain. Room air SaO2 was 86%.? Venous pH 7.40, venous pCO2 36.? K mildly elevated to 5.6.? SCr 1.94 compared to 1.67 on 09/22.? Influenza/RSV/Covid-19 PCR all negative.? CXR showed normal aeration compared with 09/22. She had some difficulty breathing and diffuse rhonchi.? She was given 7.5 mg Duoneb and 10 mg dexamethasone. Hospital course: Patient was admitted with for exacerbation of COPD and treated with IV steriod bronchodilators scheduled and PRN, O2 and over the course of hospitalization make rapid recovery and with improved oxygen saturation even on room air. She will therefore be discharged home with 3 more day of prednisone 20 mg daily, to continue use of inhalers and follow up with PCP in a week Time Spent with Patient Time attestation: Total time spent providing and/or coordinating discharge services: Discharge coordination time: Greater than 30 minutes Quality: Safe Use of Opioids Does Pt have an Active Cancer Diagnosis on the Problem List?: No Quality: Stroke Does the patient have a stroke diagnosis?: No Physical Exam Vital Signs: Vital Signs: Last Vital Signs Temp 97.8 F 09/30/22 06:38 Pulse 70 09/30/22 07:45 Resp 16 09/30/22 07:45 BP 198/84 H 09/30/22 08:48 Pulse Ox 99 09/30/22 06:38 O2 Del Method 09/30/22 06:38 O2 Flow Rate 2 09/30/22 06:38 BMI result Body Mass Index 31.6 DS: Data Data Completed and Pending Completed studies during hospitalization [Text1]: Procedures Insertion of Infusion Device into Right Basilic Vein, Percutaneous Approach (10/31/20) Transfusion of Nonautologous Red Blood Cells into Peripheral Vein, Percutaneous Approach (10/31/20) Labs on day of discharge: Laboratory Results - last 24 hr 09/29/22 09/29/22 09/29/22 11:40 16:39 21:03 POC Glucose 308 H 258 H 244 H 09/30/22 07:41 POC Glucose 207 H Preliminary micro results at discharge 09/28/22 12:36 Blood Culture - Preliminary Blood - Venous No growth after 24 hours. 09/28/22 12:36 Blood Culture - Preliminary Blood - Venous No growth after 24 hours. Discharge Plan Discharge Anticipated Discharge Date/Time: 09/30/22 09:12 Patient Disposition: Home Health Service Discharge Diagnosis: Acute COPD exacerbation Referrals: Physician,Unknown J [Primary Care Provider] - 1 Week Discharge Medications: New prednisone 20 mg tablet 20 mg PO DAILY Qty: 3 0RF Continued furosemide 40 mg tablet 1 tab PO DAILY meloxicam 7.5 mg tablet 1 tab PO DAILY glucose [TRUEplus Glucose] 4 gram tablet,chewable 4 g PO DIRECTED trazodone 50 mg tablet 0.5 tab PO BEDTIME PRN (Reason: Insomnia) (DME) FreeStyle Lite Strips Strip MISCELLANEOUS lorazepam 0.5 mg tablet 1 tab PO BID PRN (Reason: Anxiety) gabapentin 100 mg capsule 200 mg PO TID insulin aspart U-100 [Novolog FlexPen U-100 Insulin] 100 unit/mL (3 mL) insulin pen 8 unit subcut TIDAC melatonin 5 mg tablet 1 tab PO BEDTIME Tradjenta 5 mg tablet 5 mg PO DAILY insulin degludec [Tresiba FlexTouch U-100] 100 unit/mL (3 mL) insulin pen 32 unit subcut DAILY Lokelma 5 gram powder in packet 5 g PO Q48H allopurinol 100 mg tablet 100 mg PO DAILY aspirin 81 mg tablet,delayed release (DR/EC) 81 mg PO DAILY atorvastatin 80 mg tablet 80 mg PO BEDTIME cetirizine 10 mg tablet 10 mg PO DAILY cholecalciferol (vitamin D3) 25 mcg (1,000 unit) capsule 25 mcg PO DAILY clopidogrel 75 mg tablet 75 mg PO DAILY ferrous sulfate [FeroSul] 325 mg (65 mg iron) tablet 325 mg PO DAILY hydralazine 25 mg tablet 25 mg PO BEDTIME PRN (Reason: Blood Pressure) isosorbide mononitrate 30 mg tablet extended release 24 hr 30 mg PO DAILY metoclopramide HCl 5 mg tablet 5 mg PO TID pantoprazole 40 mg tablet,delayed release (DR/EC) 40 mg PO BID tamsulosin 0.4 mg capsule 0.4 mg PO DAILY ammonium lactate 12 % lotion 1 applic topical BID PRN (Reason: Dry Skin) clotrimazole-betamethasone 1-0.05 % cream 1 appl topical BID nitroglycerin 0.4 mg tablet, sublingual 0.4 mg sublingual Q5M PRN (Reason: Chest Pain) nystatin 100,000 unit/gram powder 1 applic topical BID fluticasone furoate-vilanterol [Breo Ellipta] 100-25 mcg/dose blister with device 1 puff inhalation DAILY metoprolol succinate 25 mg tablet extended release 24 hr 25 mg PO DAILY ipratropium-albuterol 0.5 mg-3 mg(2.5 mg base)/3 mL Solution For Nebulization 3 ml inhalation RQ4H WHILE AWAKE 15 Days Qty: 3 0RF prednisone 20 mg tablet 40 mg PO DAILY Qty: 4 0RF Discharge Orders: Discharge Order (Routine); Ordered 09/30/22 Ordered By: Alfredito Proctor Diet: Diabetic diet Activity on Discharge: As tolerated Stand Alone Forms: Patient Portal Discharge page Care Plan Goals: Full recovery from copd with exacerbation Health Concerns: copd diabetes Plan of Treatment: take prednisone, and use inhalers as directed and follow up with your Doctor in a week Assessment: as above Discharge Date/Time: 09/30/22 18:56
[2022-09-30] MEDS: Fluticasone/Vilanterol 100/25 BLST.W.DEV 1 PUFF INHALE (09:38)
[2022-09-30] MEDS: Insulin Glargine,Hum.rec.anlog 100 UNIT/ML 10 ML VIAL 22 UNIT SUBCUT (10:18)
[2022-09-30 13:32] LABS: Glucose, Whole Blood 327 mg/dL (60-115)
--- NOTE | 2022-09-30 13:43 | PC.NURSE ---
Dr. Proctor aware of patients POC and BP
--- NOTE | 2022-09-30 14:03 | PC.NURSE ---
Pharmacy instructed to give 8 U insulin wait 30 min and check POC then use sliding scale
[2022-09-30 14:36] LABS: Glucose, Whole Blood 352 mg/dL (60-115)
[2022-09-30] MEDS: hydrALAZINE HCl 25 MG TABLET PO (15:47)
--- NOTE | 2022-09-30 16:24 | PC.NURSE ---
Patients IV line not wprking Dr. Proctor notified. Says not to give solumedrol
[2022-09-30 16:58] LABS: Glucose, Whole Blood 292 mg/dL (60-115)
--- NOTE | 2022-09-30 17:38 | PC.NURSE ---
Ambulance return to home booked with Kavitha Valero [id number] eta
[2022-09-30 18:33] LABS: Glucose, Whole Blood 284 mg/dL (60-115)
--- NOTE | 2022-09-30 18:34 | PC.NURSE ---
Addendum entered by Kirill Tena 09/30/22 18:45: Patient refused lokelma and reglan Original Note: Estrella rockwell late due to other PO medications being given
--- NOTE | 2022-09-30 18:40 | PC.NURSE ---
Dr. Proctor instructed to hold sliding scale but give 8 units lispro
== END 2022-09-30 18:56 | disposition home health service (06) | DRG 190 ==
LOC: HO.ED 14:33 → HO.EDOVER 17:33
PROVIDERS: Physician Assistant Medical; Admitting Provider Family Medicine; Emergency Provider Emergency Medicine; Visit Provider Internal Medicine
DX: J44.1 Chronic obstructive pulmonary disease with (acute) exacerbation (principal); J96.01 Acute respiratory failure with hypoxia; I13.0 Hypertensive heart and chronic kidney disease with heart failure and stage 1 through stage 4 chronic kidney disease, or unspecified chronic kidney disease; I50.32 Chronic diastolic (congestive) heart failure; E11.22 Type 2 diabetes mellitus with diabetic chronic kidney disease; N18.30 Chronic kidney disease, stage 3 unspecified; I25.10 Atherosclerotic heart disease of native coronary artery without angina pectoris; N28.9 Disorder of kidney and ureter, unspecified; E87.5 Hyperkalemia; E11.43 Type 2 diabetes mellitus with diabetic autonomic (poly)neuropathy; E78.5 Hyperlipidemia, unspecified; K31.84 Gastroparesis; I25.2 Old myocardial infarction; Z86.73 Personal history of transient ischemic attack (TIA), and cerebral infarction without residual deficits; Z20.822 Contact with and (suspected) exposure to COVID-19; Z87.891 Personal history of nicotine dependence; Z88.1 Allergy status to other antibiotic agents; Z95.0 Presence of cardiac pacemaker; Z95.1 Presence of aortocoronary bypass graft; Z99.81 Dependence on supplemental oxygen; Z79.82 Long term (current) use of aspirin; Z79.4 Long term (current) use of insulin; Z79.52 Long term (current) use of systemic steroids; Z79.51 Long term (current) use of inhaled steroids; Z79.899 Other long term (current) drug therapy
CPT/HCPCS: 0241U; 36415; 71045; 80048; 80053; 82803; 82947; 83036; 83605; 83735; 83880; 84145; 84484; 85025; 85027; 87040; 93005; 94640; 99285; J1100; J1650; J2920

== ENCOUNTER 2022-10-10 12:41 | Emergency (ER) | payer OTHER, SELFPAY ==
--- NOTE | 2022-10-10 13:11 | PC.NURSE ---
[facility] was notified, case # [id number], they ask we hold pt for them.
--- NOTE | 2022-10-10 14:55 | PC.NURSE ---
home: [facility] [address] kike [phone]
--- NOTE | 2022-10-10 14:55 | PC.NURSE ---
family contact neetu elizabeth [phone]
--- NOTE | 2022-10-10 16:49 | ED_ITS ---
HPI - CPR General Chief Complaint: Cardiac Arrest/CPR Stated Complaint: CARDIAC ARREST Time Seen by Provider: 10/10/22 12:47 Source: family and EMS Mode of arrival: EMS Limitations: altered mental status History of Present Illness HPI narrative: 62-year-old female was brought to the emergency department by paramedics in cardiac arrest. Apparently at around 08:00 this morning the patient was feeling very shaky. Visiting nurse then gave the patient a medication which seemed to make her feel better. The family does not know what medications the patient was given. The patient then ate lunch. The family then went in to check on the patient and found her slumped over. She was unresponsive. The family called 911. When the paramedics arrived on the scene the patient was unresponsive. The patient had pulseless electrical activity has her 1st rhythm. The paramedics state that when they went to intubate her she had a large amount of food and her posterior pharynx. They put an LMA and they state that they had continue to suction out her pharynx secondary to the large amount of food that was coming out of her mouth as they were doing CPR. Paramedics state that they did at least 5 rounds of epinephrine. At 1 point the patient did go into ventricular fibrillation and was given 2 shocks and amiodarone 300 mg IV. During the paramedics resuscitation they did not achieve return of spontaneous circulation. When the patient was brought into emergency department she was in pulseless electrical activity however this was driven by her implanted electrical pacemaker, she was cyanotic appearing, she had an LMA in place and we were able to provide a ventilatory support by bagging through the LMA. The patient had no end-tidal CO2 waveform. We continued CPR with the paramedics Reza machine. Patient was given 1 round of epinephrine. She had no pulse but continued to have a pulsed rhythm through her electrical pacemaker. The patient was then pronounced at 12:46 p.m. the patient's family was in the emergency department I did inform them of the patient's . Given that this is an obvious aspiration that led to respiratory then cardiac arrest, I do not think that this is a case that needs to be reported to the medical physics researcher. Related Data Home Medications Medication Instructions Recorded Confirmed blood sugar diagnostic (FreeStyle 07/14/22 09/22/22 Lite Strips) gabapentin 100 mg capsule 200 mg PO TID 07/14/22 09/28/22 insulin aspart U-100 100 unit/mL 8 unit subcut TIDAC 07/14/22 09/28/22 (3 mL) subcutaneous pen (Novolog Flexpen U-100 Insulin aspart) insulin degludec 100 unit/mL (3 32 unit subcut DAILY 07/14/22 09/28/22 mL) subcutaneous pen (Tresiba FlexTouch U-100 insulin) linagliptin 5 mg tablet (Tradjenta) 5 mg PO DAILY 07/14/22 09/28/22 lorazepam 0.5 mg tablet 1 tab PO BID PRN Anxiety 07/14/22 09/28/22 melatonin 5 mg tablet 1 tab PO BEDTIME 07/14/22 09/28/22 sodium zirconium cyclosilicate 5 5 g PO Q48H 07/14/22 09/28/22 gram oral powder packet (Lokelma) trazodone 50 mg tablet 0.5 tab PO BEDTIME PRN Insomnia 07/14/22 09/28/22 allopurinol 100 mg tablet 100 mg PO DAILY 08/20/22 09/28/22 aspirin 81 mg tablet,delayed 81 mg PO DAILY 08/20/22 09/28/22 release atorvastatin 80 mg tablet 80 mg PO BEDTIME 08/20/22 09/28/22 cetirizine 10 mg tablet 10 mg PO DAILY 08/20/22 09/28/22 cholecalciferol (vitamin D3) 25 25 mcg PO DAILY 08/20/22 09/28/22 mcg (1,000 unit) capsule clopidogrel 75 mg tablet 75 mg PO DAILY 08/20/22 09/28/22 ferrous sulfate 325 mg (65 mg 325 mg PO DAILY 08/20/22 09/28/22 iron) tablet (FeroSul) hydralazine 25 mg tablet 25 mg PO BEDTIME PRN Blood Pressure 08/20/22 09/28/22 isosorbide mononitrate 30 mg 30 mg PO DAILY 08/20/22 09/28/22 tablet,extended release 24 hr metoclopramide HCl 5 mg tablet 5 mg PO TID 08/20/22 09/28/22 pantoprazole 40 mg tablet,delayed 40 mg PO BID 08/20/22 09/28/22 release tamsulosin 0.4 mg capsule 0.4 mg PO DAILY 08/20/22 09/28/22 ammonium lactate 12 % lotion 1 applic topical BID PRN Dry Skin 09/12/22 09/28/22 clotrimazole-betamethasone 1 1 appl topical BID 09/12/22 09/28/22 %-0.05 % topical cream fluticasone furoate 100 1 puff inhalation DAILY 09/12/22 09/28/22 mcg-vilanterol 25 mcg/dose inhalation powder (Breo Ellipta) nitroglycerin 0.4 mg sublingual 0.4 mg sublingual Q5M PRN Chest 09/12/22 09/28/22 tablet Pain nystatin 100,000 unit/gram topical 1 applic topical BID 09/12/22 09/28/22 powder metoprolol succinate 25 mg 25 mg PO DAILY 09/22/22 09/28/22 tablet,extended release 24 hr furosemide 40 mg tablet 1 tab PO DAILY 09/28/22 09/28/22 glucose 4 gram chewable tablet 4 g PO DIRECTED LOW BLOOD SUGAR 09/28/22 09/28/22 (TRUEplus Glucose) meloxicam 7.5 mg tablet 1 tab PO DAILY 09/28/22 09/28/22 Previous Rx's Medication Instructions Recorded ipratropium 0.5 mg-albuterol 3 mg 3 ml inhalation RQ4H WHILE AWAKE 09/23/22 (2.5 mg base)/3 mL nebulization 15 days #3 mL soln prednisone 20 mg tablet 40 mg PO DAILY #4 tabs 09/23/22 prednisone 20 mg tablet 20 mg PO DAILY #3 tabs 09/30/22 Allergies Allergy/AdvReac Type Severity Reaction Status Date / Time tetracycline [Tetracycline] Allergy Mild HIVES, Verified 08/14/22 14:41 anaphylaxis, anaphylaxis Review of Systems Review of Systems: Yes unobtainable due to endotracheal tube and Unobtainable due to mental condition [facility] Past Medical History Medical History Acute heart failure with preserved ejection fraction Acute kidney injury superimposed on CKD Acute renal failure due to rhabdomyolysis Anemia Anxiety Arthritis C. difficile colitis Cardiac pacemaker in situ Carpal tunnel syndrome Chest pain CHF (congestive heart failure) Chronic heart failure with preserved ejection fraction (HFpEF) COPD exacerbation Coronary artery disease CVA (cerebral vascular accident) Diabetes Diabetic gastroparesis Diarrhea Dyspnea Fall Gastritis Gastroparesis Gastroparesis GERD (gastroesophageal reflux disease) Heart failure with preserved ejection fraction HLD (hyperlipidemia) HTN (hypertension) HTN (hypertension) Hypocalcemia Hypoxia IBS (irritable bowel syndrome) Knee pain, left Myocardial infarct Orthostasis Positive occult stool blood test Renal failure Rhabdomyolysis Suprapatellar effusion of knee T2DM (type 2 diabetes mellitus) UTI (urinary tract infection) Surgical History H/O Achilles tendon repair History of appendectomy History of bladder surgery History of carpal tunnel release History of total hysterectomy with bilateral salpingo-oophorectomy (BSO) Hx of amputation Hx of CABG (~2019) Hx of cholecystectomy Hx of endoscopy Hx of knee surgery Hx of tonsillectomy Family History Family History Father No problems noted. Mother Diabetes Hypercholesteremia Hypertension Stroke Social History Social History Household Members: Family Household Members Other:: Granddaughter Housing: Apartment Do you presently have visiting nurse or other home services: Yes Alcohol intake: former Patient Tobacco Use Status: Former Tobacco user Quit Date: 24 years ago Years Smoked: 20 Second Hand Smoke Exposure: No Advance Directives: No Advance Directives Information Provided: No Advance Directives Date on File: 01/13/22 service: No Current occupational status: disabled Physical Exam Const: Other: Obese female, LMA tube in place, large amount of emesis on the patient's face and body, no spontaneous movement, no spontaneous respiratory effort HEENT: Other: Normal cephalic, atraumatic Eyes: Other: Pupils are fixed and dilated Neck: Other: Neck revealed no bruising/ecchymosis Chest: Other: No spontaneous movement of the chest Resp: Other: No spontaneous respiratory effort, breath sounds diminished bilaterally with bag-valve assist respirations Cardio: Other: No audible heart sounds GI: Other: No bowel sounds Neuro: Other: No spontaneous movement, Extrem: Other: No evidence of trauma Course Course Course Narrative: 62-year-old female who was brought to the emergency department by paramedics for evaluation of cardiac arrest. Based on the paramedics description of events, patient most likely aspirated her food causing a respiratory arrest followed by pulses electrical activity. Paramedics followed ACLS protocol approximately 20- 30 minutes prior to transport. When the patient arrived in the emergency department she was in pulses electrical activity however this was driven by her pacemaker. She had no palpable pulses. She was given epinephrine 1 mg IV and CPR was continued using the paramedics with this patient. The patient had no return of spontaneous circulation therefore she was pronounced at 12:46PM. This was a natural with a known cause therefore I did not contact the medical physics researcher. Critical Care Time Critical Care Time Critical Care Time: Yes Total Critical Care Time: 30 Attestation: Critical Care: The patient was critically ill with a high probability of imminent or life threatening deterioration. I spent greater than 30 minutes of discontinuous time evaluating the patient,delivering critical care at the bedside, discussing and evaluating pertinent data with consultants. Critical care time does not include time spent performing separately billable procedures or teaching. Total time spent performing critical care was 30 minutes. Discharge Plan Discharge Clinical Impression: Respiratory arrest, PEA (Pulseless electrical activity), Aspiration of food, Patient Disposition: Prescriptions: No Action furosemide 40 mg tablet 1 tab PO DAILY meloxicam 7.5 mg tablet 1 tab PO DAILY glucose [TRUEplus Glucose] 4 gram tablet,chewable 4 g PO DIRECTED prednisone 20 mg tablet 20 mg PO DAILY Qty: 3 0RF trazodone 50 mg tablet 0.5 tab PO BEDTIME PRN (Reason: Insomnia) (DME) FreeStyle Lite Strips Strip MISCELLANEOUS lorazepam 0.5 mg tablet 1 tab PO BID PRN (Reason: Anxiety) gabapentin 100 mg capsule 200 mg PO TID insulin aspart U-100 [Novolog Flexpen U-100 Insulin] 100 unit/mL (3 mL) insulin pen 8 unit subcut TIDAC melatonin 5 mg tablet 1 tab PO BEDTIME Tradjenta 5 mg tablet 5 mg PO DAILY insulin degludec [Tresiba FlexTouch U-100] 100 unit/mL (3 mL) insulin pen 32 unit subcut DAILY Lokelma 5 gram powder in packet 5 g PO Q48H allopurinol 100 mg tablet 100 mg PO DAILY aspirin 81 mg tablet,delayed release (DR/EC) 81 mg PO DAILY atorvastatin 80 mg tablet 80 mg PO BEDTIME cetirizine 10 mg tablet 10 mg PO DAILY cholecalciferol (vitamin D3) 25 mcg (1,000 unit) capsule 25 mcg PO DAILY clopidogrel 75 mg tablet 75 mg PO DAILY ferrous sulfate [FeroSul] 325 mg (65 mg iron) tablet 325 mg PO DAILY hydralazine 25 mg tablet 25 mg PO BEDTIME PRN (Reason: Blood Pressure) isosorbide mononitrate 30 mg tablet extended release 24 hr 30 mg PO DAILY metoclopramide HCl 5 mg tablet 5 mg PO TID pantoprazole 40 mg tablet,delayed release (DR/EC) 40 mg PO BID tamsulosin 0.4 mg capsule 0.4 mg PO DAILY ammonium lactate 12 % lotion 1 applic topical BID PRN (Reason: Dry Skin) clotrimazole-betamethasone 1-0.05 % cream 1 appl topical BID nitroglycerin 0.4 mg tablet, sublingual 0.4 mg sublingual Q5M PRN (Reason: Chest Pain) nystatin 100,000 unit/gram powder 1 applic topical BID fluticasone furoate-vilanterol [Breo Ellipta] 100-25 mcg/dose blister with device 1 puff inhalation DAILY metoprolol succinate 25 mg tablet extended release 24 hr 25 mg PO DAILY ipratropium-albuterol 0.5 mg-3 mg(2.5 mg base)/3 mL Solution For Nebulization 3 ml inhalation RQ4H WHILE AWAKE 15 Days Qty: 3 0RF prednisone 20 mg tablet 40 mg PO DAILY Qty: 4 0RF
== END 2022-10-10 18:08 | disposition expired ==
PROVIDERS: Emergency Provider Emergency Medicine Emergency Medical Services
DX: R09.2 Respiratory arrest (principal); T17.220A Food in pharynx causing asphyxiation, initial encounter; X58.XXXA Exposure to other specified factors, initial encounter; Y93.9 Activity, unspecified; Y92.032 Bedroom in apartment as the place of occurrence of the external cause; Y99.9 Unspecified external cause status; Z95.0 Presence of cardiac pacemaker; E11.22 Type 2 diabetes mellitus with diabetic chronic kidney disease; I13.0 Hypertensive heart and chronic kidney disease with heart failure and stage 1 through stage 4 chronic kidney disease, or unspecified chronic kidney disease; N18.9 Chronic kidney disease, unspecified; I50.32 Chronic diastolic (congestive) heart failure; E78.5 Hyperlipidemia, unspecified; Z79.4 Long term (current) use of insulin; Z79.899 Other long term (current) drug therapy; Z79.02 Long term (current) use of antithrombotics/antiplatelets
CPT/HCPCS: 99281; 99284; J0171